=== PATIENT | female | born 1975 | race Caucasian/White ===

== ENCOUNTER 2018-08-08 15:03 | Outpatient (REF) | payer MEDICARE, MEDICAID, SELFPAY ==
[2018-08-08 21:43] LABS: ALT 59 U/L (12-78); AST 49 U/L (15-37); Albumin 3.1 g/dL (3.4-5.0); Alkaline Phosphatase 164 U/L (46-116); Anion Gap 6.3 mmol/L (3-11); BUN 14 mg/dL (7-18); Bilirubin, Total 0.3 mg/dL (0.2-1.0); CO2 29.7 mmol/L (21.0-32.0); CREATININE 0.82 mg/dL (0.55-1.02); Calcium 8.8 mg/dL (8.5-10.1); Chloride 101 mmol/L (98-107); Cholesterol 153 mg/dL (50-200); Glucose 264 mg/dL (70-100); HDL Cholesterol 50 mg/dL (40-60); LDL CHOLESTEROL 84 mg/dL (<100); Potassium 4.2 mmol/L (3.5-5.1); Sodium 137 mmol/L (136-145); Total Protein 7.2 g/dL (6.4-8.2); Triglyceride 127 mg/dL (30-150)
[2018-08-08 21:47] LABS: Abs Immature Grans 0.09 k/cumm (0.0-0.09); Absolute Basophil Count 0.03 k/cumm (0.0-0.2); Absolute Eosinophil Count 0.25 k/cumm (0.0-0.7); Absolute Lymphocyte Count 2.87 k/cumm (1.2-3.4); Absolute Neutrophil Count 6.81 k/cumm (1.2-6.7); Basophils % 0.3; Eosinophils % 2.3; HCT 36.9 % (36.0-46.0); HGB 12.2 g/dL (12.0-15.5); Immature Grans % 0.8; Lymphocytes % 26.9; Mean Corp. HGB Concentration 33.1 g/dL (32.0-36.0); Mean Corpuscular Hemoglobin 29.8 pg (27.0-33.0); Mean Corpuscular Volume 90.2 fL (80-95); Mean Platelet Volume 10.1 fL (8.0-11.0); Monocytes % 5.6; Neutrophils % 64.1; Platelet Count 411 x1000/uL (130-400); RBC 4.09 m/cumm (4.00-5.20); White Blood Cell Count 10.65 k/cumm (4.4-10.8)
[2018-08-10 12:39] LABS: HIV-1/2 Ag & Ab Screen Negative (NEGAT); Hep B Core Antibody Negative (NEGAT); Hepatitis B Surface Ag Negative (NEGAT)
== END 2018-08-08 15:23 ==
LOC: NCHCN 15:03
PROVIDERS: PCP Family Medicine; Visit Provider Family Medicine
DX: B18.2 Chronic viral hepatitis C (principal); I10 Essential (primary) hypertension; Z11.4 Encounter for screening for human immunodeficiency virus [HIV]
CPT/HCPCS: 80053; 80061; 82172; 82247; 82977; 83010; 83721; 83883; 84460; 86704; 87340; 87389; 85025; 87522

== ENCOUNTER 2018-10-19 19:06 | Outpatient (REF) | payer MEDICARE, MEDICAID, SELFPAY ==
--- NOTE | 2018-10-20 | PAPFT_PTH ---
PATIENT: Lea Vasquez LOC: [facility] U#:[id number] AGE/SX: 43/F ROOM: RE10/19/[address]: Sharon Vargas : 1975 BED: DIS: 10/19/2018 SPEC #: [id number] RECD: 10/20/18 12:55 STATUS: ALE REQ #: [id number] FELIBERTO: 10/20/18 00:[address]: Sharon Vargas [facility] Cytology RECD BY: Lesley Mitchell ENTERED: 10/20/18 12:56 SP TYPE: PAPFT OTHR DR: Sharon Vargas Tissues: 1 - CX/ENDOCX FOR PAP SMEARS Procedures: PAP THIN PREP/UVM Screening HPV DNA PROBE Comments: [id number]
== END 2018-10-19 19:26 ==
LOC: NCHCN 19:06
PROVIDERS: PCP Family Medicine; Visit Provider Family Medicine
DX: Z12.4 Encounter for screening for malignant neoplasm of cervix (principal); Z11.51 Encounter for screening for human papillomavirus (HPV)
CPT/HCPCS: 88142

== ENCOUNTER 2019-09-26 15:45 | Outpatient (REF) | payer MEDICARE, MEDICAID, SELFPAY ==
[2019-09-26 21:21] LABS: HCT 37.1 % (36.0-46.0); HGB 11.5 g/dL (12.0-15.5); Mean Corpuscular Hemoglobin 26.2 pg (27.0-33.0); Mean Corpuscular Volume 84.5 fL (80-95); Mean Platelet Volume 9.8 fL (8.0-11.0); Platelet Count 507 x1000/uL (130-400); RBC 4.39 m/cumm (4.00-5.20); RBC Distribution Width 14.5 % (11.7-14.6); White Blood Cell Count 11.55 k/cumm (4.4-10.8)
[2019-09-26 21:25] LABS: Albumin 2.9 g/dL (3.4-5.0); Anion Gap 8.1 mmol/L (3-11); BUN 16 mg/dL (7-18); CO2 29.9 mmol/L (21.0-32.0); CREATININE 1.26 mg/dL (0.55-1.02); Calcium 8.5 mg/dL (8.5-10.1); Chloride 98 mmol/L (98-107); Estimated GFR 46.13 (mL/min/1.73m2); Glucose 331 mg/dL (74-106); Potassium 4.2 mmol/L (3.5-5.1); Sodium 136 mmol/L (136-145)
[2019-09-26 21:26] LABS: Iron 39 ug/dL (50-170); Total Iron Binding Capacity 326 ug/dL (250-450); Transferrin Sat 12 % (15-50)
== END 2019-09-26 16:05 ==
LOC: NCHCN 15:45
PROVIDERS: PCP Family Medicine; Visit Provider Family Medicine
DX: E11.40 Type 2 diabetes mellitus with diabetic neuropathy, unspecified (principal); D64.9 Anemia, unspecified; R77.0 Abnormality of albumin
CPT/HCPCS: 80048; 85027; 82040; 83540; 83550

== ENCOUNTER 2020-08-21 21:11 | Outpatient (REF) | payer MEDICARE, MEDICAID, SELFPAY ==
[2020-08-26 21:54] LABS: SARS-CoV-2 RNA Undetected (Undetected); SARS-CoV-2 Specimen Source Nasal
== END 2020-08-21 21:31 ==
LOC: NCHCN 21:11
PROVIDERS: PCP Family Medicine; Visit Provider Family Medicine
DX: R05 Cough (principal)
CPT/HCPCS: U0003

== ENCOUNTER 2021-03-04 15:25 | Outpatient (REF) | payer MEDICARE, MEDICAID, SELFPAY ==
[2021-03-04 20:39] LABS: HCT 43.2 % (36.0-46.0); HGB 13.5 g/dL (11.2-15.7); MCH 27.3 pg (27.0-33.0); MCHC 31.3 % (32.0-36.0); MCV 87.3 fL (80-95); MPV 10.1 fL (8.0-11.0); Platelet Count 424 10^3/uL (130-400); RBC 4.95 10^6/uL (3.93-5.22); RDW 13.6 % (11.7-14.6); RDW-SD 43.5 fL; WBC 8.28 10^3/uL (4.4-10.8)
[2021-03-04 20:52] LABS: ALT 35 U/L (14-59); AST 22 U/L (15-37); Albumin 3.3 g/dL (3.4-5.0); Alkaline Phosphatase 246 U/L (46-116); Anion Gap 7.8 mmol/L (3-11); BUN 17 mg/dL (7-18); Bilirubin, Total 0.4 mg/dL (0.2-1.0); CO2 28.2 mmol/L (21.0-32.0); CREATININE 1.3 mg/dL (0.55-1.02); Calcium 9.2 mg/dL (8.5-10.1); Calculated LDL 170 mg/dL (<100); Chloride 93 mmol/L (98-107); Cholesterol 262 mg/dL (<200); HDL Cholesterol 47 mg/dL (40-60); Potassium 5.4 mmol/L (3.5-5.1); Sodium 129 mmol/L (136-145); Total Protein 7.9 g/dL (6.4-8.2); Triglyceride 226 mg/dL (<150)
[2021-03-04 21:02] LABS: COMMENT (LAB VIEW ONLY) 16.74 mg/dL
[2021-03-04 21:07] LABS: Microalb ug/mg Crea 4376.9 ug/mg Cr
[2021-03-04 22:23] LABS: Glucose 567 mg/dL (74-106)
== END 2021-03-04 15:26 | disposition home or self-care (01) ==
LOC: NCHCN 15:25
PROVIDERS: PCP Family Medicine; Visit Provider Family Medicine
DX: E11.40 Type 2 diabetes mellitus with diabetic neuropathy, unspecified (principal); D64.9 Anemia, unspecified; E78.5 Hyperlipidemia, unspecified; B18.2 Chronic viral hepatitis C; J45.40 Moderate persistent asthma, uncomplicated
CPT/HCPCS: 80053; 80061; 85027; 82043; 82570

== ENCOUNTER 2021-06-25 18:29 | Outpatient (REF) | payer MEDICARE, MEDICAID, SELFPAY ==
[2021-06-27 11:14] LABS: COVID-19 RT-PCR UVMMC Result Negative (Negative)
== END 2021-06-25 18:30 | disposition home or self-care (01) ==
LOC: NCHCN 18:29
PROVIDERS: PCP Family Medicine; Visit Provider Nurse Practitioner Community Health
DX: Z20.822 Contact with and (suspected) exposure to COVID-19 (principal); R11.10 Vomiting, unspecified
CPT/HCPCS: U0003; U0005

== ENCOUNTER 2023-01-01 18:51 | Outpatient (REF) | payer MEDICARE, MEDICAID, SELFPAY ==
[2023-01-01 16:16] LABS: MCH 29.2 pg (27.0-33.0); MCHC 31.4 % (32.0-36.0); MCV 93 fL (80-95); MPV 10.6 fL (8.0-11.0); Platelet Count 515 10^3/uL (130-400); RBC 3.77 10^6/uL (3.93-5.22); RDW 15.3 % (11.7-14.6); RDW-SD 51.8 fL
[2023-01-01 17:31] LABS: Hemoglobin A1C 11.7 % (<5.7)
[2023-01-01 17:46] LABS: ALT 36 U/L (14-59); AST 30 U/L (15-37); Albumin 2.5 g/dL (3.4-5.0); Alkaline Phosphatase 458 U/L (46-116); Anion Gap 7.2 mmol/L (3-11); BUN 38 mg/dL (7-18); Bilirubin, Total 1.7 mg/dL (0.2-1.0); CO2 26.8 mmol/L (21.0-32.0); CREATININE 2.9 mg/dL (0.55-1.02); Calcium 9.6 mg/dL (8.5-10.1); Chloride 94 mmol/L (98-107); Estimated GFR 19.49 (mL/min/1.73m2); Potassium 4.3 mmol/L (3.5-5.1); Sodium 128 mmol/L (136-145); Total Protein 7.9 g/dL (6.4-8.2)
[2023-01-01 17:53] LABS: Glucose 619 mg/dL (74-106)
[2023-01-01 21:31] LABS: INR 0.9 (0.9-1.1); Prothrombin Time 9.6 sec (9.3-11.0)
[2023-01-04 10:05] LABS: Hepatitis C Ab w Rflx HCV PCR Reactive (Negative)
[2023-01-04 12:51] LABS: HCV RNA Detection Quantitative 3370000 IU/mL (Undetected); HCV RNA Qualitative Detected (Undetected)
[2023-01-05 15:20] LABS: ALT 30 U/L (7-45); ActiTest Grade A0-A1; ActiTest Interpretation no activity; ActiTest Score 0.29; Alpha-2-Macroglobulin 329 mg/dL (100 - 280); Apoliprotein A1 112 mg/dL (>=140); Bilirubin, Total 1.8 mg/dL (<=1.2); FibroTest Interpretation severe fibrosis; FibroTest Score 0.86; FibroTest Stage F4; GGT 455 U/L (5 - 36); Haptoglobin 161 mg/dL (30 - 200)
== END 2023-01-01 18:52 | disposition home or self-care (01) ==
LOC: NCHCN 18:51
PROVIDERS: PCP Family Medicine; Visit Provider Family Medicine
DX: B18.2 Chronic viral hepatitis C (principal); E11.40 Type 2 diabetes mellitus with diabetic neuropathy, unspecified; R60.0 Localized edema
CPT/HCPCS: 80053; 81596; 85027; 86803; 87522; 83036; 85610

== ENCOUNTER 2024-10-06 22:52 | Outpatient (REF) | payer MEDICARE, MEDICAID, SELFPAY ==
--- OUTSIDE RECORDS SUMMARY | 2024-10-06 22:53 | XMS_ITS | Referral Summary ---
Author Organization [facility] Address [address] [place] [address] Care Team Providers Care Magnet Maker Name Role Phone Sharon Vargas MD Primary Care Provider [phone] Allergies Active Allergy Reactions Criticality Noted Date Comments Codeine Lisinopril Metoprolol Itching 12/29/2023 Medications albuterol 90 mcg/actuation inhaler Inhale 2 Puffs as directed every 4 hours as needed for Wheezing. Active atorvastatin (LIPITOR) 20 mg tablet Take 2 Tablets by mouth daily. Active aspirin 81 mg EC tablet Take 1 Tablet by mouth daily. Active omeprazole (PRILOSEC) 40 mg capsule Take 1 Capsule by mouth daily. Active melatonin 3 mg tablet Take 3 Tablets by mouth at bedtime. Active docusate sodium (COLACE) 100 mg capsule Take 1 Capsule by mouth 2 times daily. Active amitriptyline (ELAVIL) 25 mg tablet Take 2 Tablets by mouth at bedtime. Active valsartan-hydro chlorothiazide (DIOVAN HCT) 320-25 mg per tablet Take 1 Tablet by mouth daily. Active escitalopram oxalate (LEXAPRO) 10 mg tablet Take 1 Tablet by mouth daily. Active metFORMIN (GLUCOPHAGE) 500 mg tablet Take 4 Tablets by mouth daily. Active methadone (DOLOPHINE) 10 mg/mL solution Take 12 mL by mouth daily. Daily Max: 120 mg Active polyethylene glycol 3350 (MIRALAX) 17 gram packet Take 17 g by mouth as needed for Constipation. Active insulin degludec (TRESIBA FLEXTOUCH U-200) 200 unit/mL (3 mL) 200 unit/ml (3ml) insulin pen Inject 8,000 Units into the skin 2 times daily. Active insulin aspart U-100 (NOVOLOG FLEXPEN) 100 unit/mL (3 mL) injectable pen Inject into the skin as needed. Active buPROPion (WELLBUTRIN SR) 200 mg SR tablet Take 1 Tablet by mouth daily. Active sertraline HCl (ZOLOFT ORAL) Take by mouth. Dose unknown Active Active Problems Problem Noted Date Diagnosed Date Combined forms of age-related cataract of both e yes 02/11/2024 Social History Tobacco Use Types Packs/Day Years Used Date Smoking Tobacco: Every Day Cigarettes Smokeless Tobacco: Never Tobacco Cessation:Ready to Q uit: Not Asked; Counseling Given: Not Answered Comments Unknown Sex and Gender Information Value Date Recorded Sex Assigned at Not on file Legal Sex Female 18:01 EST Gender Identity Female 01/04/2024 11:39 EDT Sexual Orientation Not on file Plan of Treatment Upcoming Encounters Date Type Department Care Team (Late st Contact Info) Description 10/27/2024 14:15 EST Office Visit [facility] [address] [place] [address] Consuelo Nicole MD [address] [place] [address] Procedures Procedure Name Priority Date/Time Associated Diagnosis Comments HEPATITIS C AB W REFLEX TO HCV RNA BY PCR Routine 01/01/2023 11:40 EDT URINE [id number] E RATIO (ACR) Routine 10/16/2015 HEMOGLOBIN A1C Routine 05/28/2014 from Last 3 Months or Most Recently Relevant to Health Maintenance Results * (ABNORMAL) HEPATITIS C AB W REFLEX TO HCV RNA BY PCR (01/01/2023 11:40 EDT) Hep C Antibody Reactive(A ) Negative 01/04/2023 10:01 EDT [facility] Comment: Supplemental testing for HCV RNA is ordered to rule out active HCV infection. Blood VENOUS BLOOD / Unknown 01/01/2023 11:40 EDT 2023 15:59 EDT us Provider Outr Resulting Lab CHEMISTRY & BLOOD GA S ORDERABLES Final Result [facility] [address] [place] [address] * ALBUMIN, URINE (10/16/2015) Microalb ug/mg Crea, External 312.7 [facility] Microalb mg/dl, External 84.7 [facility] Creatinine, Random U (UCRR), External 27.09 [facility] Urine specimen (specimen) 10/16/2015 Sharon Vargas MD CHEMISTRY & BLOOD GAS ORDERABL ES Edited Result - Final Performing Organization Address [facility] Co de Phone Number [facility] * HEMOGLOBIN A1C (05/28/2014) Hemoglobin A1C, External 8.7 [facility] Est Avg Glucose, External [facility] Blood specimen (specimen) 05/28/2014 Sharon Vargas MD CHEMISTRY & BLOOD GAS ORDERABL ES Final Result Performing Organization Address [facility] Co de Phone Number [facility] from Last 3 Months or Most Recently Relevant to Health Maintenance Insurance [place] Care Teams Magnet Maker Relationship Specialty Start Date End Date Sharon Vargas MD [address] [place] [address] PCP - General 09/09/15
--- OUTSIDE RECORDS SUMMARY | 2024-10-06 22:53 | XMS_ITS | Encounter Summary ---
Author Organization [facility] Address [address] [place] [address] Care Team Providers Care Ergonomics Consultant Name Role Phone Sharon Vargas MD Primary Care Provider [phone] Reason for Visit * Reason Comments Eye Problem Encounter Details Date Type Department Care Team (Late st Contact Info) Description 03/16/2024 10:30 EDT Office Visit [facility] Ophthalmology - [address] [id number] Hung Harp MD [address] [facility], [address] [place] [address] Social History Tobacco Use Types Packs/Day Years Used Date Smoking Tobacco: Every Day Cigarettes Smokeless Tobacco: Never Comments Unknown Sex and Gender Information Value Date Recorded Sex Assigned at Not on file Legal Sex Female 18:01 EST Gender Identity Female 01/04/2024 11:39 EDT Sexual Orientation Not on file documented as of this encounter Progress Notes * Hung Harp MD - 03/16/2024 1030 EDT Chief Complaint Patient presents with Eye Problem HPI 5 week f/u for Avastin right eye before upcoming cataract surgery with Dr Nicole right eye 03/23/24.NPDR both eyes. PSC both eyes. Vision seems about the same. No pain, or new flashes, or floaters. No drops. Base Eye Exam Visual Acuity (Snellen - Linear) Right Left Dist sc CF at 1' 20/200 +1 Dist ph sc 20/70 -1 Tonometry (Applanation, 11:23) Right Left Pressure 19 12 Neuro/Psych Oriented x3: Yes Mood/Affect: Normal Dilation Both eyes: Tropicamide 1%, Phenylephrine 2.5% @ 11:23 Slit Lamp and Fundus Exam Slit Lamp Exam Right Left Lids/Lashes Normal Normal Conjunctiva/Sclera White and quiet White and quiet Cornea Clear Clear Anterior Chamber Deep and quiet Deep and quiet Iris Dilated Dilated Lens 3+ Posterior subcapsular cataract, 4+ Posterior capsular opacification 2+ Posterior subcapsular cataract Anterior Vitreous Clear Clear Fundus Exam Right Left Disc no neovascularization no neovascularization C/D Ratio 0.3 0.3 Macula Limitied view. Intraretinal hemorrhage Hemorrhage: Intraretinal hemorrhage Vessels No beading No beading Periphery Retina attached. Heme in all 4 quadrants. No alireza Retina attached. Heme in all 4 quadrants. No alireza OCT, Retina - OU - Both Eyes Right Eye Quality was poor. Scan locations included juxtafoveal. Progression has improved. Findings include intraretinal fluid. Left Eye Quality was poor. Progression has been stable. Findings include normal foveal contour. Notes Some inner retinal atrophy both eyes Trace intraretinal fluid both eyes OCT-A enlarged CJ left eye (poor signal right eye Intravitreal Injection, Pharmacologic Agent - OD - Right Eye Time Out 03/16/2024. 11:56. Confirmed correct patient, procedure, site, and patient consented. Anesthesia Topical anesthesia was used. Anesthetic medications included Proparacaine 0.5%, Tetracaine 0.5%. Procedure Preparation included 5% betadine to ocular surface, eyelid speculum. A 30 gauge needle was used. Injection: 1.25 mg bevacizumab Route: intravitreal, Site: Right Eye [facility]: [address]-93, Lot: [id number], Expiration date: 03/17/2024 Post-op Post injection exam found visual acuity of at least counting fingers. The patient tolerated the procedure well. There were no complications. The patient received written and verbal post procedure care education. Post injection medications were not given. DIAGNOSES: 1. Type 2 diabetes mellitus with both eyes affected by moderate nonproliferative retinopathy and macular edema, with long-term current use of insulin ([facility]) OCT, RETINA - OU - BOTH EYES INTRAVITREAL INJECTION, PHARMACOLOGIC AGENT - OD - RIGHT EYE bevacizumab (AVASTIN) ophthalmic syringe 1.25 mg 2. Combined forms of age-related cataract of both eyes Assessment Type 2 Diabetes with non-proliferative diabetic retinopathy both eyes Trace macular edema both eyes Capillary loss on OCT-a left eye and inner retinal atrophy both eyes Recommend continue good lipid, blood sugar and blood pressure control Posterior subcapsular cataracts both eyes Dense, limiting view to retina right eye Cataract surgery scheduled with in March and April Discussed risks of developing macular edema post cataract surgery Recommend intravitreal injection of anti VEGF prior to cataract surgery Risks and benefits associated discussed Patient agrees Return 1 week prior to cataract surgery left eye for Avastin injection I am scribing for Dr. Hung Harp MD while he is personally performing the service. Luan Martin (Scribe) documented in this encounter Plan of Treatment Upcoming Encounters Date Type Department Care Team (Late st Contact Info) Description 10/27/2024 14:15 EST Office Visit [facility] Ophthalmology [address] [address] Consuelo Nicole MD [address] [place] [address] documented as of this encounter Procedures Procedure Name Priority Date/Time Associated Diagnosis Comments OCT, RETINA - OU - BOTH EYES Routine 03/16/2024 12:13 EDT Type 2 diabetes mellitus with both eyes affected by moderate nonproliferative retinopathy and macular edema, with long-term current use of insulin ([facility]) INTRAVITREAL INJECTION, PHARMACOLOGIC AGENT - OD - RIGHT EYE Routine 03/16/2024 12:04 EDT Type 2 diabetes mellitus with both eyes affected by moderate nonproliferative retinopathy and macular edema, with long-term current use of insulin ([facility]) documented in this encounter Results * OCT, RETINA - OU - BOTH EYES (03/16/2024 12:13 EDT) Narrative [facility] - 03/16/2024 12:13 EDT Right Eye Quality was poor. Scan locations included juxtafoveal. Progression has improved. Findings include intraretinal fluid. Left Eye Quality was poor. Progression has been stable. Findings include normal foveal contour. Notes Some inner retinal atrophy both eyes Trace intraretinal fluid both eyes OCT-A enlarged CJ left eye (poor signal right eye Hung Harp MD OPHTH TOMOGRAPHY Edited Result - Final Performing Organization Address [facility] de Phone Number [facility] * INTRAVITREAL INJECTION, PHARMACOLOGIC AGENT - OD - RIGHT EYE (03/16/2024 12:04 EDT) Narrative [facility] - 03/16/2024 12:13 EDT Time Out 03/16/2024. 11:56. Confirmed correct patient, procedure, site, and patient consented. Anesthesia Topical anesthesia was used. Anesthetic medications included Proparacaine 0.5%, Tetracaine 0.5%. Procedure Preparation included 5% betadine to ocular surface, eyelid speculum. A 30 gauge needle was used. Injection: 1.25 mg bevacizumab ??Route: intravitreal, Site: Right Eye ??[facility]: [address]-95, Lot: [id number], Expiration date: 03/17/2024 Post-op Post injection exam found visual acuity of at least counting fingers. The patient tolerated the procedure well. There were no complications. The patient received written and verbal post procedure care education. Post injection medications were not given. Hung Harp MD OPH CLINIC PROCEDURES Final Re sult Performing Organization Address [facility] de Phone Number [facility] documented in this encounter Visit Diagnoses Diagnosis Type 2 diabetes mellitus with both eyes affected by moderate nonproliferative retinopathy and macular edema, with long-term current use of insulin ([facility])- Primary Combined forms of age-related cataract of both eyes Other and combined forms of senile cataract documented in this encounter Administered Medications Inactive Administered Medications - up to 3 most recent administrations Medication Order MAR Action Action Date Dose Rate Site bevacizumab (AVASTIN) ophthalmic syringe 1.25 mg 1.25 mg, Starting on [place] 03/16/24 at 1213, Until [place] 03/16/24 at 1213, RoutineIndications:Type 2 diabetes mellitus with both eyes affected by moderate nonproliferative retinopathy and macular edema, with long-term current use of insulin ([facility]) Given 03/16/2024 12:13 EDT 1.25 mg Ri ght Eye documented in this encounter Orders Medications Ordered That Aric ht Not Have Been Administered Count Last Ordered Date First Ordered Date bevacizumab (AVASTIN) ophtha lmic syringe 1.25 mg 1 03/16/2024 documented in this encounter Eye Exam Visual Acuity (Snellen - Linear) Right eye Left eye Dist sc CF at 1' 20/200 +1 Dist ph sc 20/70 -1 Tonometry (Applanation, 11:23) Right eye Left eye Pressure 19 12 Neuro/Psych Oriented x3: Yes Mood/Affect: Normal Dilation Both eyes: Tropicamide 1%, P henylephrine 2.5% @ 11:23 Slit Lamp Exam Right eye Left eye Lids/Lashes Normal Normal Conjunctiva/Sclera White and quiet White and thelma et Cornea Clear Clear Anterior Chamber Deep and quiet Deep and quiet Iris Dilated Dilated Lens 3+ Posterior subcaps ular cataract, 4+ Posterior capsular opacification 2+ Posterior subcapsular cataract Anterior Vitreous Clear Clear Fundus Exam Right eye Left eye Disc no neovascularization no neovasc ularization C/D Ratio 0.3 0.3 Macula Limitied view. Intraretinal hemo rrhage Hemorrhage: Intraretinal hemorrhage Vessels No beading No beading Periphery Retina attached. Hem e in all 4 quadrants. No alireza Retina attached. Heme in all 4 quadrants. No alireza Care Teams Ergonomics Consultant Relationship Specialty Start Date End Date Sharon Vargas MD [address] [place] [address] PCP - General 09/09/15 documented as of this encounter
--- OUTSIDE RECORDS SUMMARY | 2024-10-06 22:53 | XMS_ITS | Encounter Summary ---
Author Organization [facility] Address [address] [place] [address] Care Team Providers Care Devops Engineer Name Role Phone Sharon Vargas MD Primary Care Provider [phone] Reason for Referral * Consult, Test and Treat (Routine) - Receiving Office to Obtain Authorization Specialty Diagnoses / Procedures Referred By Johnnie eugene Referred To Contact Ophthalmology Diagnoses Type 2 diabetes mellitus with both eyes affected by moderate nonproliferative retinopathy without macular edema, with long-term current use of insulin ([facility]) Consuelo Nicole MD Phone: tel: fax: Hung Harp MD Phone: tel: fax: Referral ID Status Reason Start Date Expiration Date Visits Requested Visits Authorized [id number] Receiving Office to Obtain Authorization Specialty Services Required 4 1 1 Question Answer Reason for Request: Other, in comments field Specify which eye: Right Contact lens wearer? No Scheduling Comments (optional ? describe specific scheduling needs if applicable): please eval approx one month prior to scheduled cataract surg 02/2024 in case needs injection Onset/Duration (new problem)? NPDR for years, possible DME today right eye with upcoming cataract surgery May, eval need for injection Reason for Visit * Reason Comments Diabetes Diabetes mellitus ey e exam Encounter Details Date Type Department Care Team (Late st Contact Info) Description 12/29/2023 10:45 EDT Office Visit [facility] Ophthalmology [facility] [address] [place] [address] Consuelo Nicole MD [address] [place] [phone] Social History Tobacco Use Types Packs/Day Years [...] on file documented as of this encounter Patient Instructions * Patient Instructions* Verna Cerna COA - 12/29/2023 10:45 EDT Please make an appointment with your Primary Care Provider for a pre-operative physical. Try to schedule for about 2 weeks prior to your surgery. Your lens measurement appointment is: 02/09/2024 at our office [address] [place], [place] Your surgery date for your first eye is: 03/23/2024 at [facility] (check in at Patient Registration). The Hospital will call you prior to the surgery with your report time. Your surgery date for your second eye is: 04/25/2024 documented in this encounter Progress Notes * Consuelo Nicole MD - 12/29/2023 104 EDT Chief Complaint Patient presents with Diabetes Diabetes mellitus eye exam HPI The patient is a 48 y.o. female here for yearly DM exam, diagnosed 1992 as gestational DM. On orals/insulin. Checks bgs 3-4 times a day. Last A1c 7.2 documented at PCP's office and noted to be at goal at 10/2023 visit. Has not had eye exam since 2018, documented as having moderate NPDR in both eyes with onset 08/2016 in PCP's notes. Has noticed decreased vision right eye>left over the past 6-8 months, right eye especially, all activities. Unable to drive, ambulate safely. Has worn specs in the past. Right Eye: Blurred Vision Left Eye: Blurred Vision Visual Aid: None Current Rx Age Location: Both eyes Pain: 0 - No pain Quality: Severity: Moderate Duration: Months Timing: Constant Lasts: Continuous Context: DM eye exam, dx'd 1992 starting as gestational DM. Has been on insulin and oral medications since then. CHecks bg's 3-4 times a day. Last A1c 7.2 (in Dr office - 11/04/2023) Modifying factors: 6-8 months ago vision starting to decrease, R>L. Feels she cannot see out of the right eye at all. No floaters or flashes of light. Associated Signs & Symptoms: Last eye exam 2018 previously dx's woth moderate NPDR (2016) Has worn glasses in past but has been without for 4 years. Attestation: ROS Constitutional: NL ENT/Mouth NL Cardiovascular: High Cholesterol, High Blood Pressure Respiratory: (asthma, COPD) Gastrointestinal: Genitourinary: Musculoskeletal: Integumentary: Neurologic: NL Psychiatric: Depression Endocrine: Diabetes Hematologic: Anemia Immunologic: Filter Bed Placer: Exposures: None Other: Attestation: Base Eye Exam Visual Acuity (Snellen - Linear) Right Left Dist sc CF at 1' 20/200 Dist ph sc NI 20/150 Near sc J3 J3 Tonometry (Applanation, 11:37) Right Left Pressure 24 20 Pupils Dark Light React APD Right 5.5 3.5 Slow None Left 4.5 3 Slow None Checked by MD Visual Martínez Right eye Full to count fingers superonasally Limited to finger motion in all other quadrants Left eye Full to count fingers superonasally Full to finger motion in all other quadrants Extraocular Movement Right Left Full Full Neuro/Psych Oriented x3: Yes Mood/Affect: Normal Slit Lamp and Fundus Exam External Exam Right Left External Normal Normal Slit Lamp Exam Right Left Lids/Lashes Normal Normal Conjunctiva/Sclera White and quiet White and quiet Cornea No guttata No guttata Anterior Chamber Deep and quiet Deep and quiet Iris Dilates to 8.5, no pseudoexfoliation Dilates to 8.5, no pseudoexfoliation Lens 3+ Nuclear Sclerosis, cortical haze, cortical wedges, 4+ diffuse PSC 3+ Nuclear Sclerosis, cortical haze, cortical wedges, 4+ PSC with some sparing temporally but involving visual axis Fundus Exam Right Left Vitreous Normal Normal Disc Intact Rim Intact Rim C/D Ratio 0.1 0.1 Macula Few Intraretinal hemorrhages at and temporal to fovea; no obvious exudate Mild RPE changes at fovea Vessels Normal Normal Periphery Intraretinal hemorrhages in arcades Intraretinal hemorrhages in arcades Overall hazy view with difficult macular details right eye. Peripheral view easier with 20D lens. Refraction Manifest Refraction (Auto) Sphere Cylinder Andreas Dist VA Right -10.50 +2.25 154 Left -5.00 +2.50 035 Manifest Refraction #2 Sphere Cylinder Andreas Dist VA Right -7.25 +2.00 150 20/300 Left -3.75 Sphere 20/60 Cycloplegic Refraction Sphere Cylinder Andreas Dist VA Right -7.25 +2.00 150 Left -3.75 +0.75 035 20/80+1 DIAGNOSTIC TESTS: OCT, Retina - OU - Both Eyes OCT macula Right: signal strength: 2/10, thickness 268 microns, normal foveal contour, possible intraretinal fluid Left: signal strength: 5/10, thickness 234 microns, normal foveal contour, no intra/subretinal fluid IMPRESSION & PLAN: Type 2 diabetes mellitus with both eyes affected by moderate nonproliferative retinopathy without macular edema, with long-term current use of insulin - detailed fundus views of right eye difficult due to PSC, possible fluid on OCT right eye today 12/29/2023. - discussed with patient that if there was fluid on OCT on her way out then I may send her to Retina for pre-op eval. She was amenable to this. I see possible fluid on OCT, I will place a referral and we will call her to let her know. - continue good bg control, control of systemic factors - note to PCP Combined forms of age-related cataract of both eyes - The patient has symptomatic visually significant cataract(s) in both eye(s). The patient's vision cannot be maximized with a change in the prescription of glasses or contact lenses and this decreasesthe patient's ability to drive. Testing for other eye diseases such as age related macular degeneration and glaucoma have been completed, and these conditions are not contributing to the patient's visual difficulties. R/B/A cataract surgery discussed including bleeding, infection, loss of vision, loss of the eye, retinal detachment, glaucoma, and subsequent surgery. Discussed with patient that if macular edema is present it can worsen after cataract surgery and affect result. Pt wishes to proceed. Discussed IOLs, options of premium IOLs. Pt interested in monofocal IOL for distance emmetropia. Plan cataract extraction with IOL right eye first, target plano. Consent signed today. Schedule Biometry. Pt advised to schedule a pre-op physical with PCP within 30 days of surgery. Patient does notneed to stop anticoagulation if applicable. - will contact patient and let her know that I am placing a Retina referral Refractive error - - we continue without specs at this time I have reviewed the patient's past medical, family, social and surgical history. I have also reviewed the patient's medications, allergies, and problem list. I performed my own HPI and have reviewed the tech's ROS as well. I completed this exam personally. I spent a total of 45 minutes on the date of this encounter meeting with the patient and reviewing documentation/coordinating care as described in the above note. No procedures were performed at the time of the visit. I am scribing for Consuelo Nicole MD, while she is personally performing the service. JIM Osborne Patient Education Topic: NPDR Method: Verbal Taught to: Patient Barriers: None Outcomes: independent Signature: Consuelo Nicole MD documented in this encounter Plan of Treatment Upcoming Encounters Date Type Department Care Team (Late st Contact Info) Description 10/27/2024 14:15 EST Office Visit [facility] Ophthalmology [address] [address] Consuelo Nicole MD [address] [place] [phone] Scheduled Referrals Name Type Priority Associated Diagnoses Orde r Schedule AMB CONS/FOLLOW UP OPHTHALMOLOGY Outpatient Referral Routine/Next Available Type 2 Diabetes Mellitus With Both Eyes Affected By Moderate Nonproliferative Retinopathy Without Macular Edema, With Long-Term Current Use Of Insulin ([facility]) Expected: 01/29/2024 (Approximate) , Expires: 12/28/2024 documented as of this encounter Procedures Procedure Name Priority Date/Time Associated Diagnosis Comments OCT, RETINA - OU - BOTH EYES Routine 12/29/2023 13:57 EDT Type 2 diabetes mellitus with both eyes affected by moderate nonproliferative retinopathy without macular edema, with long-term current use of insulin ([facility]) documented in this encounter Results * OCT, RETINA - OU - BOTH EYES (12/29/2023 13:57 EDT) Narrative [facility] OPHTHALMOLOGY - 12/29/2023 13:57 EDT OCT macula Right: signal strength: 2/10, thickness 268 microns, normal foveal contour, possible intraretinal fluid Left: signal strength: 5/10, thickness 234 microns, normal foveal contour, no intra/subretinal fluid us Consuelo Nicole MD OPHTH TOMOGRAPHY Final Resu lt [facility] OPHTHALMOLOGY documented in this encounter Visit Diagnoses Diagnosis Type 2 diabetes mellitus with both eyes affected by moderate nonproliferative retinopathy without macular edema, with long-term current use of insulin ([facility])- Primary Combined forms of age-related cataract of both eyes Other and combined forms of senile cataract Refractive error Unspecified disorder of refraction and accommodation documented in this encounter Discontinued Medications Medication Sig Discontinue Reason Start Date End Da te amitriptyline (ELAVIL) 75 mg tablet Take 2 Tablets by mouth at bedtime. Dose adjustment 12/29/2023 valsartan (DIOVAN) 80 mg tablet Take 1 Tablet by mouth daily. Dose adjustment 12/29/2023 metFORMIN (GLUCOPHAGE) 1,000 mg tablet Take 1 Tablet by mouth 2 times daily. Dose adjustment 12/29/2023 buprenorphine-naloxone (SUBOXONE) 8-[address] 2 Film under the tongue daily. Therapy completed 12/29/2023 buPROPion (WELLBUTRIN XL) 300 mg XL tablet Take 200 mg by mouth daily. Dose adjustment 12/29/2023 fluticasone-salmeterol (ADVAIR) 500-50 mcg/dose diskus inhaler Inhale 1 Puff as directed 2 times daily. 12/29/2023 gabapentin (NEURONTIN) 300 mg capsule Take 900 mg by mouth 3 times daily. 12/29/2023 insulin glargine 300 unit/mL (1.5 mL) insulin pen Inject 200 Units into the skin 3 times daily. 12/29/2023 sitaGLIPtin (JANUVIA) 100 mg tablet Take 100 mg by mouth daily. 12/29/2023 insulin aspart protamine-insulin aspart (NOVOLOG 70/30) 100 unit/mL (70-30) injection Inject into the skin 2 times daily with breakfast and dinner. 12/29/2023 documented as of this encounter Historical Medications * This list may reflect changes made after this encounter. sertraline HCl (ZOLOFT ORAL) Take by mouth. Dose unknown buPROPion (WELLBUTRIN SR) 200 mg SR tablet Take 1 Tablet by mouth daily. insulin aspart U-100 (NOVOLOG FLEXPEN) 100 unit/mL (3 mL) injectable pen Inject into the skin as needed. insulin degludec (TRESIBA FLEXTOUCH U-200) 200 unit/mL (3 mL) 200 unit/ml (3ml) insulin pen Inject 8,000 Units into the skin 2 times daily. polyethylene glycol 3350 (MIRALAX) 17 gram packet Take 17 g by mouth as needed for Constipation. methadone (DOLOPHINE) 10 mg/mL solution Take 12 mL by mouth daily. Daily Max: 120 mg metFORMIN (GLUCOPHAGE) 500 mg tablet Take 4 Tablets by mouth daily. escitalopram oxalate (LEXAPRO) 10 mg tablet Take 1 Tablet by mouth daily. valsartan-hydroch lorothiazide (DIOVAN HCT) 320-25 mg per tablet Take 1 Tablet by mouth daily. amitriptyline (ELAVIL) 25 mg tablet Take 2 Tablets by mouth at bedtime. added in this encounter Eye Exam Visual Acuity (Snellen - Linear) Right eye Left eye Dist sc CF at 1' 20/200 Dist ph sc NI 20/150 Near sc J3 J3 Tonometry (Applanation, 11:37) Right eye Left eye Pressure 24 20 Pupils Dark Light React APD Right eye 5.5 3.5 Slow None Left eye 4.5 3 Slow None Checked by MD Visual Martínez Right eye Full to count fingers superonasally Limited to finger motion in all other quadrants Left eye Full to count fingers superonasally Full to finger motion in all other quadrants Extraocular Movement Right eye Left eye Full Full Neuro/Psych Oriented x3: Yes Mood/Affect: Normal External Exam Right eye Left eye External Normal Normal Slit Lamp Exam Right eye Left eye Lids/Lashes Normal Normal Conjunctiva/Sclera White and quiet White and thelma et Cornea No guttata No guttata Anterior Chamber Deep and quiet Deep and quiet Iris Dilates to 8.5, no pseudoexfoliation Dilates to 8.5, no pseudoexfoliation Lens 3+ Nuclear Sclerosis , cortical haze, cortical wedges, 4+ diffuse PSC 3+ Nuclear Sclerosis, cortical haze, cortical wedges, 4+ PSC with some sparing temporally but involving visual axis Fundus Exam Right eye Left eye Posterior Vitreous Normal Normal Disc Intact Rim Intact Rim C/D Ratio 0.1 0.1 Macula Few Intraretinal hem orrhages at and temporal to fovea; no obvious exudate Mild RPE changes at fovea Vessels Normal Normal Periphery Intraretinal hemorrh ages in arcades Intraretinal hemorrhages in arcades Overall hazy view with difficult macular details right eye. Peripheral view easier with 20D lens. Manifest Refraction #1 (Auto) Sphere Cylinder Andreas Dist VA Right eye -10.50 +2.25 154 Left eye -5.00 +2.50 035 Manifest Refraction #2 Sphere Cylinder Andreas Dist VA Right eye -7.25 +2.00 150 20/300 Left eye -3.75 Sphere 20/60 Cycloplegic Refraction Sphere Cylinder Andreas Dist VA Right eye -7.25 +2.00 150 Left eye -3.75 +0.75 035 20/80+1 Care Teams Devops Engineer Relationship Specialty Start Date End Date Sharon Vargas MD [address] [place] [address] [place] [phone] PCP - General 09/09/15 documented as of this encounter
--- OUTSIDE RECORDS SUMMARY | 2024-10-06 22:53 | XMS_ITS | Encounter Summary ---
Author Organization [facility] Address [address] [place] [address] Care Team Providers Care Company Tanker Truck Driver Name Role Phone Sharon Vargas MD Primary Care Provider [phone] Reason for Visit * Reason Onset Date Comments Follow-up 12/29/2023 Encounter Details Date Type Department Care Team (Late st Contact Info) Description 12/29/2023 Telephone [facility] [address] [place], [place] [address] Verna Cerna COA Follow-up Social History Tobacco Use Types Packs/Day Years Used Date Smoking Tobacco: Every Day Cigarettes Smokeless Tobacco: Never Comments Unknown Sex and Gender Information Value Date Recorded Sex Assigned at Not on file Legal Sex Female 18:01 EST Gender Identity Female 01/04/2024 11:39 EDT Sexual Orientation Not on file documented as of this encounter Miscellaneous Notes * Telephone Encounter - Verna Cerna COA - 12/29/2023 1534 EDT Called to inform Lea as per Dr. Nicole that a retina referral has been placed due to swelling right eye visualized on images taken after exam today. Patient verbalizes understanding and agrees. documented in this encounter Plan of Treatment Upcoming Encounters Date Type Department Care Team (Late st Contact Info) Description 10/27/2024 14:15 EST Office Visit [facility] [address] [place] [address] Consuelo Nicole MD [address] [place] [phone] documented as of this encounter Visit Diagnoses Not on filedocumented in this encounter Care Teams Company Tanker Truck Driver Relationship Specialty Start Date End Date Sharon Vargas MD [address] [place] [phone] PCP - General 09/09/15 documented as of this encounter
--- OUTSIDE RECORDS SUMMARY | 2024-10-06 22:53 | XMS_ITS | Encounter Summary ---
Author Organization [facility] Address [address] [place] [address] Care Team Providers Care Special Needs Child Caregiver Name Role Phone Sharon Vargas MD Primary Care Provider [phone] Encounter Details Date Type Department Care Team (Late Contact Info) Description 02/24/2024 Orders Only [facility] [address] [place], [place] [address] Consuelo Nicole MD [address] [place] [phone] Combined forms of age-related cataract of right eye (Primary Dx) Social History Tobacco Use Types Packs/Day Years Used Date Smoking Tobacco: Every Day Cigarettes Smokeless Tobacco: Never Comments Unknown Sex and Gender Information Value Date Recorded Sex Assigned at Not on file Legal Sex Female 18:01 EST Gender Identity Female 01/04/2024 11:39 EDT Sexual Orientation Not on file documented as of this encounter Plan of Treatment Upcoming Encounters Date Type Department Care Team (Late Contact Info) Description 10/27/2024 14:15 EST Office Visit [facility] Ophthalmology [facility] [address] [place], [place] [address] Consuelo Nicole MD [address] [place] [phone] documented as of this encounter Visit Diagnoses Diagnosis Combined forms of age-related cataract of right eye- Primary Other and combined forms of senile cataract documented in this encounter Care Teams Special Needs Child Caregiver Relationship Specialty Start Date End Date Sharon Vargas MD [address] [place] [place] [phone] PCP - General 09/09/15 documented as of this encounter
--- OUTSIDE RECORDS SUMMARY | 2024-10-06 22:53 | XMS_ITS | Clinical Summary ---
Author Organization [facility] Address [address] [place] [address] Care Team Providers Care Milk Treater Name Role Phone Sharon Vargas MD Primary Care Provider [phone] Allergies Active Allergy Reactions Criticality Noted Date [...] 11:39 EDT Sexual Orientation Not on file Obstetrics History Plan of Treatment Upcoming Encounters Date Type Department Care Team (Late st Contact Info) Description 10/27/2024 14:15 EST Office Visit [facility] Ophthalmology [facility] [address] [place] [address] Consuelo Nicole MD [address] [place] [phone] Health Maintenance Due Date Last Done Comments Foot Exam 1975 Lipid Profile Screening (Cholesterol) 1978 Pneumococcal Immunization (1 of 2 - PCV) 1981 Hepatitis B Vaccine (1 of 3 - 19+ 3-dose series) 1994 Hemoglobin A1C (Ha1C) 11/28/2014 05/28/2014 Microalbumin/Creatinine Ratio 10/16/2016 10/16/2015 COVID-19 Vaccine ( season) 2024 Eye Exam 03/16/2025 03/16/2024, 04/03/2024, 12/29/2023 Hepatitis C Screen Completed 01/01/2023, 01/01/2023 Procedures Procedure Name Priority Date/Time Associated Diagnosis Comments HEPATITIS C AB W REFLEX TO HCV RNA BY PCR Routine 01/01/2023 11:40 EDT URINE HOBPOAM-LR-FREULTXGC E RATIO (ACR) Routine 10/16/2015 HEMOGLOBIN A1C Routine 05/28/2014 from Last 3 Months or Most Recently Relevant to Health Maintenance Results * (ABNORMAL) HEPATITIS C AB W REFLEX TO HCV RNA BY PCR (01/01/2023 11:40 EDT) Hep C Antibody Reactive(A ) Negative 01/04/2023 10:01 EDT [facility] Comment: Supplemental testing for HCV RNA is ordered to rule out active HCV infection. Blood VENOUS BLOOD / Unknown 01/01/2023 11:40 EDT 2023 15:59 EDT us Provider Outr Resulting Lab CHEMISTRY & BLOOD GA S ORDERABLES Final Result Performing Organization Address City/[facility]/ZIP Co de Phone Number [facility] [address] [place] [address] * ALBUMIN, URINE (10/16/2015) Microalb ug/mg Crea, External 312.7 [facility] Microalb mg/dl, External 84.7 [facility] Creatinine, Random U (UCRR), External 27.09 [facility] Urine specimen (specimen) 10/16/2015 Sharon Vargas MD CHEMISTRY & BLOOD GAS ORDERABL ES Edited Result - Final Performing Organization Address [facility]/ZIP Co de Phone Number [facility] * HEMOGLOBIN A1C (05/28/2014) Hemoglobin A1C, External 8.7 [facility] Est Avg Glucose, External [facility] Blood specimen (specimen) 05/28/2014 Sharon Vargas MD CHEMISTRY & BLOOD GAS ORDERABL ES Final Result Performing Organization Address [facility]/ZIP Co de Phone Number [facility] from Last 3 Months or Most Recently Relevant to Health Maintenance Insurance [place]ARE Care Teams Milk Treater Relationship Specialty Start Date End Date Sharon Vargas MD [address] [place] [place] [phone] PCP - General 09/09/15
--- OUTSIDE RECORDS SUMMARY | 2024-10-06 22:53 | XMS_ITS | Encounter Summary ---
Author Organization [facility] Address [address] [place] [address] Care Team Providers Care Automation Application Engineer Name Role Phone Sharon Vargas MD Primary Care Provider [phone] Reason for Visit * Reason Onset Date Comments Appointment Related 03/08/2024 Encounter Details Date Type Department Care Team (Late st Contact Info) Description 03/08/2024 Telephone [facility] [address] [place], [place] [phone] Consuelo Nicole MD [address] [place] [phone] Appointment Related Social History Tobacco Use Types Packs/Day Years Used Date Smoking Tobacco: Every Day Cigarettes Smokeless Tobacco: Never Comments Unknown Sex and Gender Information Value Date Recorded Sex Assigned at Not on file Legal Sex Female 18:01 EST Gender Identity Female 01/04/2024 11:39 EDT Sexual Orientation Not on file documented as of this encounter Miscellaneous Notes * Telephone Encounter - Maegan Nicolas COA - 03/08/2024 1432 EDT Tried to call patient back unable to leave a message. JIM WALTERS documented in this encounter Plan of Treatment Upcoming Encounters Date Type Department Care Team (Late st Contact Info) Description 10/27/2024 14:15 EST Office Visit [facility] [address] [place], [place] [phone] Consuelo Nicole MD [address] [place] [phone] documented as of this encounter Visit Diagnoses Not on filedocumented in this encounter Care Teams Automation Application Engineer Relationship Specialty Start Date End Date Sharon Vargas MD [address] [place] [phone] PCP - General 09/09/15 documented as of this encounter
--- OUTSIDE RECORDS SUMMARY | 2024-10-06 22:53 | XMS_ITS | Encounter Summary ---
Author Organization [facility] Address [address] [place] [address] Care Team Providers Care Technical Education Teacher Name Role Phone Sharon Vargas MD Primary Care Provider [phone] Reason for Visit * Reason Comments Eye Problem * Prior Authorization (Routine) - Authorized Specialty Diagnoses / Procedures Referred By Johnnie eugene Referred To Contact Diagnoses Diabetic macular edema (HCC-CMS) Procedures [place] INTRAVITREAL NJX PHARMACOLOGIC AGT SPX [place] AFLIBERCEPT INJECTION [place] BEVACIZUMAB INJECTION [address] [address] Phone: tel: fax: [address] [address] Phone: tel: fax: Referral ID Status Reason Start Date Expiration Date V isits Requested Visits Authorized [id number] Authorized 2 2 Encounter Details Date Type Department Care Team (Late st Contact Info) Description 02/11/2024 14:00 EDT Office Visit [address] [id number] Hung Harp MD [address] [place] [address], [facility] [address] [place] [address] Social History Tobacco Use Types Packs/Day Years Used Date Smoking Tobacco: Every Day Cigarettes Smokeless Tobacco: Never Comments Unknown Sex and Gender Information Value Date Recorded Sex Assigned at Not on file Legal Sex Female 18:01 EST Gender Identity Female 01/04/2024 11:39 EDT Sexual Orientation Not on file documented as of this encounter Progress Notes * Hung Harp MD - 02/11/2024 1400 EDT Chief Complaint Patient presents with Eye Problem HPI DM with mod NPDR both eyes referred by Dr Nicole, Pt stats blurry vision R>L x ~ 6 months, scheduled for Cataract surgery in March/April with Dr Nicole, no pain no flashes no floaters, last A1c 7.2 in Nov 10, BS usually around 100 Base Eye Exam Visual Acuity (Snellen - Linear) Right Left Dist sc CF at 3' 20/200 Dist ph sc 20/80 Tonometry (Applanation, 14:18) Right Left Pressure 19 17 Pupils Dark Light Shape React APD Right 4 3 Round Slow None Left 3 2 Round Slow None Extraocular Movement Right Left Full Full Neuro/Psych Oriented x3: Yes Mood/Affect: Normal Dilation Both eyes: Phenylephrine 2.5%, Tropicamide 1% @ 14:18 Slit Lamp and Fundus Exam Slit Lamp [...] include intraretinal fluid. Left Eye Quality was borderline. Progression has been stable. Findings include normal foveal contour. Notes Some inner retinal atrophy both eyes OCT-A enlarged CJ left eye (poor signal right eye DIAGNOSES: 1. Type 2 diabetes mellitus with both eyes affected by moderate nonproliferative retinopathy without macular edema, with long-term current use of insulin ([facility]) OCT, RETINA - OU - BOTH EYES 2. Combined forms of age-related cataract of both eyes Assessment Type 2 Diabetes with non-proliferative diabetic retinopathy both eyes No macular edema both eyes Capillary loss on OCT-a left eye and inner retinal atrophy both eyes Recommend continue good lipid, blood sugar and blood pressure control Posterior subcapsular cataracts both eyes Dense, limiting view to retina right eye Cataract surgery scheduled with in March and April Discussed risks of developing macular edema post cataract surgery Recommend intravitreal injection of anti VEGF 1 week prior to cataract surgery Risks and benefits associated discussed Patient agrees Return 1 week prior to cataract surgery for Avastin injection Return in about 5 weeks (around 03/17/2024), or if symptoms worsen or fail to improve, for OCT, Avastin, Right Eye. I am scribing for Dr. Hung Harp MD while he is personally performing the service. JIM Begum (Scribe) documented in this encounter Plan of Treatment Upcoming Encounters Date Type Department Care Team (Late st Contact Info) Description 10/27/2024 14:15 EST Office Visit [facility] Ophthalmology [address] [address] Consuelo Nicole MD [address] [place] [address] documented as of this encounter Procedures Procedure Name Priority Date/Time Associated Diagnosis Comments OCT, RETINA - OU - BOTH EYES Routine 02/11/2024 14:36 EDT Type 2 diabetes mellitus with both eyes affected by moderate nonproliferative retinopathy without macular edema, with long-term current use of insulin ([facility]) documented in this encounter Results * OCT, RETINA - OU - BOTH EYES (02/11/2024 14:36 EDT) Narrative [facility] OPHTHALMOLOGY - 02/11/2024 16:43 EDT Right Eye Quality was poor. Scan locations included juxtafoveal. Progression has improved. Findings include intraretinal fluid. Left Eye Quality was borderline. Progression has been stable. Findings include normal foveal contour. Notes Some inner retinal atrophy both eyes OCT-A enlarged CJ left eye (poor signal right eye us Hung Harp MD OPHTH TOMOGRAPHY Final Result [facility] OPHTHALMOLOGY documented in this encounter Visit Diagnoses Diagnosis Type 2 diabetes mellitus with both eyes affected by moderate nonproliferative retinopathy without macular edema, with long-term current use of insulin ([facility])- Primary Combined forms of age-related cataract of both eyes Other and combined forms of senile cataract documented in this encounter Eye Exam Visual Acuity (Snellen - Linear) Right eye Left eye Dist sc CF at 3' 20/200 Dist ph sc 20/80 Tonometry (Applanation, 14:18) Right eye Left eye Pressure 19 17 Pupils Dark Light Shape React APD Right eye 4 3 Round Slow None Left eye 3 2 Round Slow None Extraocular Movement Right eye Left eye Full Full Neuro/Psych Oriented x3: Yes Mood/Affect: Normal Dilation Both eyes: Phenylephrine 2.5 %, Tropicamide 1% @ 14:18 Slit Lamp Exam Right eye Left eye [...] all 4 quadrants. No alireza Care Teams Technical Education Teacher Relationship Specialty Start Date End Date Sharon Vargas MD [address] [place] [phone] PCP - General 09/09/15 documented as of this encounter
--- OUTSIDE RECORDS SUMMARY | 2024-10-06 22:54 | XMS_ITS | Encounter Summary ---
Author Organization [facility] Address [address] [place] [address] Care Team Providers Care Aws Architect Name Role Phone Sharon Vargas MD Primary Care Provider [phone] Encounter Details Date Type Department Care Team (Late st Contact Info) Description 09/20/2023 [facility] [address] [place] [phone] Salome Myles MD [address] [place] [phone] Social History Tobacco Use Types Packs/Day Years Used Date Smoking Tobacco: Never Assessed Comments Unknown Sex and Gender Information Value Date Recorded Sex Assigned at Not on file Legal Sex Female 18:01 EST Gender Identity Female 01/04/2024 11:39 EDT Sexual Orientation Not on file documented as of this encounter Progress Notes * Salome yMles MD - 09/20/2023 1254 EST Patient called to cancel clinic visit (scheduled for 1500 today 09/20/23) due to transportation difficulties. Will call back to reschedule at another time documented in this encounter Plan of Treatment Upcoming Encounters Date Type Department Care Team (Late st Contact Info) Description 10/27/2024 14:15 EST Office Visit [facility] [address] [place] [address] Consuelo Nicole MD [address] [place] [phone] documented as of this encounter Visit Diagnoses Not on filedocumented in this encounter Care Teams Aws Architect Relationship Specialty Start Date End Date Sharon Vargas MD [address] [place] [phone] PCP - General 09/09/15 documented as of this encounter
--- OUTSIDE RECORDS SUMMARY | 2024-10-06 22:54 | XMS_ITS | Encounter Summary ---
Author Organization [facility] Address [address] [place] [address] Care Team Providers Care Block Handler Name Role Phone Unavailable Primary Care Provider Unavailabl e Encounter Details Date Type Department Care Team (Late st Contact Info) Description 07/03/1999 11:27 EDT Hospital Encounter [facility] [address] [place] [address] [place] [address] [place] [address] Unknown, Provider, Social History Tobacco Use Types Packs/Day Years [...] Info) Description 10/27/2024 14:15 EST Office Visit [facility] Ophthalmology [facility] [address] [place] [address] Consuelo Nicole MD [address] [place] [phone] documented as of this encounter Visit Diagnoses Not on filedocumented in this encounter
--- OUTSIDE RECORDS SUMMARY | 2024-10-06 22:54 | XMS_ITS | Encounter Summary ---
Author Organization [facility] Address [address] [place] [address] Care Team Providers Care Traffic Court Referee Name Role Phone Sharon Vargas MD Primary Care Provider [phone] Encounter Details Date Type Department Care Team (Late st Contact Info) Description 08/23/2023 Documentation Visit [facility] Endoscopy [address] [place], [place] [address] Kain Cantu MD [facility] [address] [place] [address] Social History Tobacco Use Types Packs/Day Years Used Date Smoking Tobacco: Never Assessed Comments Unknown Sex and Gender Information Value Date Recorded Sex Assigned at Not on file Legal Sex Female 18:01 EST Gender Identity Female 01/04/2024 11:39 EDT Sexual Orientation Not on file documented as of this encounter Progress Notes * Kain Cantu MD - 08/23/2023 1659 EST No show for clinic documented in this encounter Plan of Treatment Upcoming Encounters Date Type Department Care Team (Late st Contact Info) Description 10/27/2024 14:15 EST Office Visit [facility] Ophthalmology - [place] [address] [place], [place] [phone] Consuelo Nicole MD [address] [place] [phone] documented as of this encounter Visit Diagnoses Not on filedocumented in this encounter Care Teams Traffic Court Referee Relationship Specialty Start Date End Date Sharon Vargas MD [address] [place] [phone] PCP - General 09/09/15 documented as of this encounter
--- OUTSIDE RECORDS SUMMARY | 2024-10-06 22:54 | XMS_ITS | Encounter Summary ---
Author Organization [facility] Address [address] [place] [address] Care Team Providers Care Patch Washer Name Role Phone Sharon Vargas MD Primary Care Provider [phone] Encounter Details Date Type Department Care Team (Late Contact Info) Description 12/03/2015 Abstract [facility] Nephrology - [address] [address] Junaid Olivarez MD [address] [place] [address], [address] [place] [address] Social History Tobacco Use Types Packs/Day Years [...] Info) Description 10/27/2024 14:15 EST Office Visit [facility] Ophthalmology [facility] [address] [place] [address] Consuelo Nicole MD [address] [place] [phone] documented as of this encounter Procedures Procedure Name Priority Date/Time Associated Diagnosis Comments GLUCOSE, SERUM Routine 10/29/2015 URINE [id number] RATIO (ACR) Routine 10/16/2015 COMPREHENSIVE METABOLIC PANEL (CMP) Routine 02/18/2015 COMPLETE BLOOD COUNT Routine 05/28/2014 HEMOGLOBIN A1C Routine 05/28/2014 COMPREHENSIVE METABOLIC PANEL (CMP) Routine 05/28/2014 documented in this encounter Results * GLUCOSE, SERUM (10/29/2015) Glucose, Serum, External 113 [facility] Blood specimen (specimen) 10/29/2015 Sharon Vargas MD CHEMISTRY & BLOOD GAS ORDERABL ES Final Result Performing Organization Address [facility]/ZIP Co de Phone Number [facility] * ALBUMIN, URINE (10/16/2015) Microalb ug/mg Crea, External 312.7 [facility] Microalb mg/dl, External 84.7 [facility] Creatinine, Random U (UCRR), External 27.09 [facility] Urine specimen (specimen) 10/16/2015 Sharon Vargas MD CHEMISTRY & BLOOD GAS ORDERABL ES Edited Result - Final Performing Organization Address [facility]/ZIP Co de Phone Number [facility] * COMPREHENSIVE METABOLIC PANEL (CMP) (02/18/2015) GFR, Calculated, External >60 [facility] Glucose, Serum, External 354 [facility] Albumin, External 3.0 [facility] Total Alkaline Phosphatase, External 148 [facility] ALT, External 48 [facility] AST, External 24 [facility] BUN, External 6 [facility] Calculated Calcium, External [facility] Calcium, External 9.0 [facility] Chloride, External 99 [facility] CO2, External 31.5 [facility] Creatinine, External 0.5 [facility] Fasting?, External [facility] Potassium, External 4.7 [facility] Sodium, External 137 [facility] Total Protein, External 6.9 [facility] Bilirubin, Total, External 0.31 [facility] Blood specimen (specimen) 02/18/2015 Sharon Vargas MD CHEMISTRY & BLOOD GAS ORDERABL ES Final Result [facility] * HEMOGLOBIN A1C (05/28/2014) Hemoglobin A1C, External 8.7 [facility] Est Avg Glucose, External [facility] Blood specimen (specimen) 05/28/2014 Sharon Vargas MD CHEMISTRY & BLOOD GAS ORDERABL ES Final Result Performing Organization Address [facility]/ZIP Co de Phone Number [facility] * COMPREHENSIVE METABOLIC PANEL (CMP) (05/28/2014) GFR, Calculated, External >60 [facility] Glucose, Serum, External 151 [facility] Albumin, External 2.9 [facility] Total Alkaline Phosphatase, External 137 [facility] ALT, External 86 [facility] AST, External 81 [facility] BUN, External 9 [facility] Calculated Calcium, External [facility] Calcium, External 8.0 [facility] Chloride, External 104 [facility] CO2, External 28.8 [facility] Creatinine, External 0.5 [facility] Fasting?, External [facility] Potassium, External 4.2 [facility] Sodium, External 140 [facility] Total Protein, External 6.4 [facility] Bilirubin, Total, External 0.2 [facility] Blood specimen (specimen) 05/28/2014 Sharon Vargas MD CHEMISTRY & BLOOD GAS ORDERABL ES Final Result Performing Organization Address City/[facility]/ZIP Co de Phone Number [facility] * HEMAGRAM (05/28/2014) HCT, External 35.7 [facility] MCH, External [facility] MCV, External [facility] MCHC, External [facility] Hemoglobin, External 11.4 [facility] WBC, External 7.76 [facility] RBC, External 3.83 [facility] PLT, External 461 [facility] RDW-CV, External [facility] Blood specimen (specimen) 05/28/2014 us Sharon Vargas MD HEMATOLOGY & PF4 ORDERABLES Fi nal Result [facility] documented in this encounter Visit Diagnoses Not on filedocumented in this encounter Historical Medications * This list may reflect changes made after this encounter. docusate sodium (COLACE) 100 mg capsule Take 1 Capsule by mouth 2 times daily. melatonin 3 mg tablet Take 3 Tablets by mouth at bedtime. omeprazole (PRILOSEC) 40 mg capsule Take 1 Capsule by mouth daily. aspirin 81 mg EC tablet Take 1 Tablet by mouth daily. atorvastatin (LIPITOR) 20 mg tablet Take 2 Tablets by mouth daily. albuterol 90 mcg/actuation inhaler Inhale 2 Puffs as directed every 4 hours as needed for Wheezing. fluticasone-salm eterol (ADVAIR) 500-50 mcg/dose diskus inhaler Inhale 1 Puff as directed 2 times daily. 4 gabapentin (NEURONTIN) 300 mg capsule Take 900 mg by mouth 3 times daily. 4 insulin aspart protamine-insuli n aspart (NOVOLOG 70/30) 100 unit/mL (70-30) injection Inject into the skin 2 times daily with breakfast and dinner. 4 insulin glargine 300 unit/mL (1.5 mL) insulin pen Inject 200 Units into the skin 3 times daily. 4 amitriptyline (ELAVIL) 75 mg tablet Take 2 Tablets by mouth at bedtime. 4 metFORMIN (GLUCOPHAGE) 1,000 mg tablet Take 1 Tablet by mouth 2 times daily. 4 buPROPion (WELLBUTRIN XL) 300 mg XL tablet Take 200 mg by mouth daily. 4 valsartan (DIOVAN) 80 mg tablet Take 1 Tablet by mouth daily. 4 buprenorphine-na loxone (SUBOXONE) 8-[address] 2 Film under the tongue daily. 4 sitaGLIPtin (JANUVIA) 100 mg tablet Take 100 mg by mouth daily. 4 added in this encounter Care Teams Patch Washer Relationship Specialty Start Date End Date Sharon Vargas MD [address] [place] [address] PCP - General 09/09/15 documented as of this encounter
--- OUTSIDE RECORDS SUMMARY | 2024-10-06 22:54 | XMS_ITS | Encounter Summary ---
Author Organization [facility] Address [address] [place] [address] Care Team Providers Care Resource Conservationist Name Role Phone Unavailable Primary Care Provider Unavailabl e Encounter Details Date Type Department Care Team (Latest Contact Info) Description 04/03/2003 19:00 EDT Hospital Encounter [facility] Emergency Department - Main [place] [address] [place], [place] [address] Emergency, Default, MD Discharge Disposition: Home or Self Care Social History Tobacco Use Types Packs/Day Years Used Date Smoking Tobacco: Never Assessed Comments Unknown Sex and Gender Information Value Date Recorded Sex Assigned at Not on file Legal Sex Female 18:01 EST Gender Identity Female 01/04/2024 11:39 EDT Sexual Orientation Not on file documented as of this encounter Discharge Disposition Disposition Code Departure Means Destination Home or Self Care documented in this encounter Plan of Treatment Upcoming Encounters Date Type Department Care Team (Late st Contact Info) Description 10/27/2024 14:15 EST Office Visit [facility] Ophthalmology [facility] [address] [place] [address] Consuelo Nicole MD [address] [place] [address] documented as of this encounter Procedures Procedure Name Priority Date/Time Associated Diagnosis Comments CYTOPATHOLOGY Routine 06/26/2009 0:00 EDT documented in this encounter Results * CYTOPATHOLOGY (06/26/2009 0:00 EDT) Pathology Report: CYTOPATHOLOGY REPORT ? Reports generated via electronic interface contain original data; ? however they are lacking the format of the original report. ? Caution should be taken when reading/interpreti ng unformatted reports. ? Name: ? LEA MCGOWAN ? Accession #: ? [id number] ? : ? 1975 (Age: 34) ??F ?Collect Date: ? 06/26/2009 ? Location: ? [facility] ? Receive Date: ? 06/28/2009 ? Provider: ?SHARON BEATRIZ MD ? Copy to: ? Specimen/Source: ?Pap Test, Cervix/Endocervix, ThinPrep Imaging System ? with manual evaluation ? Last Menstrual Period: ? SPECIMEN ADEQUACY ? Satisfactory for Evaluation ? - transformation zone component present ? GENERAL CATEGORIZATION ? Negative for Intraepithelial Lesion or Malignancy ? Document reviewed and electronically signed by: ? Marie Montrose, [place](ASCP) ? Report Date: ??07/03/2009 14:12 ? End of Report ? [facility] 06/26/2009 06/28/2009 us Sharon Vargas MD PATHOLOGY ORDERABLES Final Res ult [facility] [address] [place] [address] documented in this encounter Visit Diagnoses Not on filedocumented in this encounter
--- OUTSIDE RECORDS SUMMARY | 2024-10-06 22:54 | XMS_ITS | Encounter Summary ---
Author Organization [facility] Address [address] [place] [address] Care Team Providers Care Forestry Workers Name Role Phone Unavailable Primary Care Provider Unavailabl e Encounter Details Date Type Department Care Team (Late st Contact Info) Description 01/15/2000 Results Only [facility] [address] [place] [address] Yoel Deleon MD [address] [place], [place] [address] Social History Tobacco Use Types Packs/Day Years [...] Info) Description 10/27/2024 14:15 EST Office Visit [facility] [address] [place] [address] Consuelo Nicole MD [address] [place] [address] documented as of this encounter Procedures Procedure Name Priority Date/Time Associated Diagnosis Comments CYTOPATHOLOGY Routine 01/15/2000 13:24 EST documented in this encounter Results * CYTOPATHOLOGY (01/15/2000 13:24 EST) Pathology Report: CYTOPATHOLOGY REPORT Reports generated via electronic interface contain original data; however they are lacking the format of the original report. Caution should be taken when reading/interpreti ng unformatted reports. Name: ? LEA MCGOWAN ? Accession #: ? [id number] : ? 1975 (Age: 25) ??F ?Collect Date: ? 01/15/2000 Location: ?Receive Date: ? 01/15/2000 Provider: ?YOEL DELEON MD Copy to: ?YOEL DELEON MD ? Specimen/Source: ?Pap Smear (One Slide) Last Menstrual Period: ? GYNECOLOGIC ??CYTOPATHOLOGY ??REPORT Name: LEA MCGOWAN ? FA : 1975 ?? 25Y F ?Client ID: [id number] SS#: [id number] ? Clinician: YOEL DELEON MD ?? Location: [facility] ??Copy to: ?? Specimen: ?Pap Smear (One Slide) ? Source: Cervix/Endocervix ?Collected: 01/13/00 ? Received: 01/15/2000 ?LMP: 03/10/00 ? Hormone Therapy: No ? : No ? Radiation Therapy: No ?? Post : Yes ? Chemotherapy: No ?IUD: No ? Prev Abnormal Pap: No ?? Clinical Hx: ?(Blank rucker indicate information not provided on requisition) SPECIMEN ADEQUACY: ? Satisfactory For Evaluation ?? GENERAL CATEGORIZATION: ? BENIGN CELLULAR CHANGES ?? DESCRIPTIVE DIAGNOSIS: ? Predominance Of Coccobacilli Present Consistent With A Shift In ? Vaginal Mabel ? Reviewed And Electronically Signed By: ? Lizbeth Faye, SCT(ASCP) ? Report Date: ?? 01/22/2000 [facility] Archived Tests - Final Diagnosis Text Field: Clinical History : ? Document reviewed and electronically signed by: ? Conversion ? Report Date: ??01/22/2000 00:00 End of Report [facility] 01/15/2000 13:2 4 EST 01/15/2000 13:25 EST us Yoel Deleon MD PATHOLOGY ORDERABLES Final Resul t Performing Organization Address City/State/[facility] Co de Phone Number [facility] [address] [place] [address] documented in this encounter Visit Diagnoses Not on filedocumented in this encounter
--- OUTSIDE RECORDS SUMMARY | 2024-10-06 22:54 | XMS_ITS | Encounter Summary ---
Author Organization [facility] Address [address] [place] [address] Care Team Providers Care Fish Hatchery Manager Name Role Phone Sharon Vargas MD Primary Care Provider [phone] Encounter Details Date Type Department Care Team (Late st Contact Info) Description 04/21/2023 Lab Requisition [facility] Pathology & Laboratory Medicine - [facility] [address] [place] [address] Outr Resulting Lab, Provider Social History Tobacco Use Types Packs/Day Years [...] Info) Description 10/27/2024 14:15 EST Office Visit [facility] [address] [place] [address] Consuelo Nicole MD [address] [place] [address] documented as of this encounter Procedures Procedure Name Priority Date/Time Associated Diagnosis Comments ANAEROBE CULTURE, REFERENCE Routine 04/21/2023 14:17 EDT documented in this encounter Results * ANAEROBE CULTURE, REFERENCE (04/21/2023 14:17 EDT) Organism ID No Anaerobes Isolated 05/01/2023 12:00 EDT [facility] Tissue ENTIRE TOE / Unknown 04/21/2023 14:17 EDT 04/21/2023 21:25 EDT us Provider Outr Resulting Lab MICROBIOLOGY - GENER AL ORDERABLES Final Result Performing Organization Address City/State/[facility] Co de Phone Number [facility] [address] [place] [address] documented in this encounter Visit Diagnoses Not on filedocumented in this encounter Care Teams Fish Hatchery Manager Relationship Specialty Start Date End Date Sharon Vargas MD [address] [place] [address] PCP - General 09/09/15 documented as of this encounter
--- OUTSIDE RECORDS SUMMARY | 2024-10-06 22:54 | XMS_ITS | Encounter Summary ---
Author Organization [facility] Address [address] [place] [address] Care Team Providers Care Stage Builder Name Role Phone Sharon Vargas MD Primary Care Provider [phone] Reason for Visit * Reason Onset Date Comments Appointment Related 11/09/2023 Encounter Details Date Type Department Care Team (Late st Contact Info) Description 11/09/2023 Telephone [facility] [address] [place], [place] [address] Consuelo Nicole MD [address] [place] [phone] Appointment Related Social History Tobacco Use Types Packs/Day Years Used Date Smoking Tobacco: Never Assessed Comments Unknown Sex and Gender Information Value Date Recorded Sex Assigned at Not on file Legal Sex Female 18:01 EST Gender Identity Female 01/04/2024 11:39 EDT Sexual Orientation Not on file documented as of this encounter Miscellaneous Notes * Telephone Encounter - Connie Ramirez - 11/09/2023 1035 EST Unable to leave [facility] no mail box set up. Contacted primary to let them know and to have them send her last notes from [facility] Schedule with Dr. Nicole in 6 weeks for NPV dm exam per Dr. Nicole documented in this encounter Plan of Treatment Upcoming Encounters Date Type Department Care Team (Late st Contact Info) Description 10/27/2024 14:15 EST Office Visit [facility] [address] [place], [place] [address] Consuelo Nicoel MD [address] [place] [phone] documented as of this encounter Visit Diagnoses Not on filedocumented in this encounter Care Teams Stage Builder Relationship Specialty Start Date End Date Sharon Vargas MD [address] [place] [phone] PCP - General 09/09/15 documented as of this encounter
--- OUTSIDE RECORDS SUMMARY | 2024-10-06 22:54 | XMS_ITS | Encounter Summary ---
Author Organization [facility] Address [address] [place] [address] Care Team Providers Care Oxygen Therapist Name Role Phone Sharon Vargas MD Primary Care Provider Encounter Details Date Type Department Care Team (Latest Contact Info) Description 03/27/2016 8:14 EDT - 03/27/2016 23:59 EDT Hospital Encounter [facility] [address] [place] [address] Unknown, Provider, MD Discharge Disposition: Home or Self Care Social History Tobacco Use Types Packs/Day Years Used Date Smoking Tobacco: Never Assessed Comments Unknown Sex and Gender Information Value Date Recorded Sex Assigned at Not on file Legal Sex Female 18:01 EST Gender Identity Female 01/04/2024 11:39 EDT Sexual Orientation Not on file documented as of this encounter Medications at Time of Discharge albuterol 90 mcg/actuation inhaler Inhale 2 Puffs as directed every 4 hours as needed for Wheezing. aspirin 81 mg EC tablet Take 1 Tablet by mouth daily. atorvastatin (LIPITOR) 20 mg tablet Take 2 Tablets by mouth daily. docusate sodium (COLACE) 100 mg capsule Take 1 Capsule by mouth 2 times daily. melatonin 3 mg tablet Take 3 Tablets by mouth at bedtime. omeprazole (PRILOSEC) 40 mg capsule Take 1 Capsule by mouth daily. amitriptyline (ELAVIL) 75 mg tablet Take 2 Tablets by mouth at bedtime. 4 buprenorphine-na loxone (SUBOXONE) 8-[address] 2 Film under the tongue daily. 4 buPROPion (WELLBUTRIN XL) 300 mg XL tablet Take 200 mg by mouth daily. 4 fluticasone-salm eterol (ADVAIR) 500-50 mcg/dose diskus inhaler [...] into the skin 3 times daily. 4 metFORMIN (GLUCOPHAGE) 1,000 mg tablet Take 1 Tablet by mouth 2 times daily. 4 sitaGLIPtin (JANUVIA) 100 mg tablet Take 100 mg by mouth daily. 4 valsartan (DIOVAN) 80 mg tablet Take 1 Tablet by mouth daily. 4 documented as of this encounter Discharge Disposition Disposition Code Departure Means Destination Home or Self [facility] documented in this encounter Plan of Treatment Upcoming Encounters Date Type Department Care Team (Late st Contact Info) Description 10/27/2024 14:[address] [facility] Ophthalmology [facility] [address] [place] [address] Consuelo Nicole MD [address] [place] [address] documented as of this encounter Visit Diagnoses Not on filedocumented in this encounter Care Teams Oxygen Therapist Relationship Specialty Start Date End Date Sharon Vargas MD [address] [place] [address] PCP - General 09/09/15 documented as of this encounter
--- OUTSIDE RECORDS SUMMARY | 2024-10-06 22:54 | XMS_ITS | Encounter Summary ---
Author Organization [facility] Address [address] [place] [address] Care Team Providers Care Sound Equipment Mechanic Name Role Phone Sharon Vargas MD Primary Care Provider [phone] Encounter Details Date Type Department Care Team (Late st Contact Info) Description 04/01/2022 Lab Requisition [facility] Pathology & Laboratory Medicine - [facility] [address] [place] [address] Outr Resulting Lab, Provider Social History Tobacco [...] Info) Description 10/27/2024 14:15 EST Office Visit [facility] [address] [place] [address] Consuelo Nicole MD [address] [place] [address] documented as of this encounter Procedures Procedure Name Priority Date/Time Associated Diagnosis Comments GGT Routine 04/01/2022 14:29 EDT documented in this encounter Results * (ABNORMAL) GGT (04/01/2022 14:29 EDT) GGT 224(H) <44 U/L 04/01/2022 21:22 EDT [facility] Blood VENOUS BLOOD / Unknown 04/01/2022 14:29 EDT 04/01/2022 21:09 EDT us Provider Outr Resulting Lab CHEMISTRY & BLOOD GA S ORDERABLES Final Result Performing Organization Address City/State/[facility] Co de Phone Number [facility] [address] [place] [address] documented in this encounter Visit Diagnoses Not on filedocumented in this encounter Care Teams Sound Equipment Mechanic Relationship Specialty Start Date End Date Sharon Vargas MD [address] [place] [phone] PCP - General 09/09/15 documented as of this encounter
--- OUTSIDE RECORDS SUMMARY | 2024-10-06 22:54 | XMS_ITS | Encounter Summary ---
Author Organization [facility] Address [address] [place] [address] Care Team Providers Care Sprinkling Truck Driver Name Role Phone Sharon Henderson MD Primary Care Provider [phone] Encounter Details Date Type Department Care Team (Late st Contact Info) Description 12/09/2016 Results Only [facility] [phone] Sharon Henderson MD [address] [place] [address] Social History Tobacco Use Types Packs/Day Years [...] Info) Description 10/27/2024 14:15 EST Office Visit [facility] [address] [place] [address] Consuelo Nicole MD [address] [place] [address] documented as of this encounter Procedures Procedure Name Priority Date/Time Associated Diagnosis Comments PAP TEST- RESULT ONLY Routine 12/09/2016 0:00 EST documented in this encounter Results * PAP TEST- RESULT ONLY (12/09/2016 0:00 EST) Pathology Report: CYTOPATHOLOGY REPORT Reports generated via electronic interface contain original data; however they are lacking the format of the original report. Caution should be taken when reading/interpreti ng unformatted reports. Name: ? FE LEA ? Accession #: ? [id number] ? : ? 1975 (Age: 41) ??F ?Collect Date: ? 12/09/2016 ? Location: ? [facility] ? Receive Date: ? 12/14/2016 ? Provider: SHARON HENDERSON MD Copy to: ? Final Report SPECIMEN ADEQUACY ? Satisfactory for Evaluation - transformation zone component present GENERAL CATEGORIZATION ? Negative for Intraepithelial Lesion or Malignancy INTERPRETATION ? Reactive cellular changes associated with inflammation present (includes repair). Last Menstrual Period: 11/25/16 Specimen/Source: ??Pap Test, Cervix/Endocervix, ThinPrep Imaging System with manual evaluation Document reviewed and electronically signed by: ? TOMMY BATRES MD ? Report ??Date: 12/18/2016 11:10 HPV with Pap Test ? Date Ordered: ? 12/18/2016 ? Status: ?? Signed Out ?Date Complete: ? 12/21/2016 ? By: ??System Interface ? Date Reported: ? 12/21/2016 ? Interpretation RESULT: Positive for high or intermediate risk HPV. E6 OR E7 mRNA from one or more types of HPV types 16,18,31, 33,35,39,45,51,52, 56,58,59,66, and 68 is detected by sheet metal work furnace installer mediated amplification. High and intermediate risk HPV types are associated with most squamous intraepithelial lesions and cervical cancers. Comments Document reviewed and electronically signed by: ? System Interface ? Report date: 12/21/2016 By the signature above, the attending physician certifies that he/she has personally conducted a gross and/or microscopic examination of the described specimens and rendered or confirmed the above diagnosis. End of Report [facility] 12/09/2016 12/14/2016 us Sharon Henderson MD PATHOLOGY ORDERABLES Final Res ult [facility] [address] [place] [address] documented in this encounter Visit Diagnoses Not on filedocumented in this encounter Care Teams Sprinkling Truck Driver Relationship Specialty Start Date End Date Sharon Henderson MD [address] [place] [phone] PCP - General 09/09/15 documented as of this encounter
--- OUTSIDE RECORDS SUMMARY | 2024-10-06 22:54 | XMS_ITS | Encounter Summary ---
Author Organization [facility] Address [address] [place] [address] Care Team Providers Care Steel Tester Name Role Phone Sharon Vargas MD Primary Care Provider [phone] Encounter Details Date Type Department Care Team (Late st Contact Info) Description 01/02/2023 Lab Requisition [facility] Pathology & Laboratory Medicine - [facility] [address] [place] [address] Outr Resulting Lab, Provider Social History Tobacco [...] Info) Description 10/27/2024 14:15 EST Office Visit [facility] Ophthalmology [facility] [address] [place] [address] Consuelo Nicole MD [address] [place] [address] documented as of this encounter Procedures Procedure Name Priority Date/Time Associated Diagnosis Comments HCV RNA DETECT QUANT Today 01/01/2023 11:40 EDT HEPATITIS C AB W REFLEX TO HCV RNA BY PCR Routine 01/01/2023 11:40 EDT documented in this encounter Results * (ABNORMAL) HCV RNA DETECT QUANT (01/01/2023 11:40 EDT) HCV RNA Qualitative Detected( A) Undetected 01/04/2023 12:46 EDT [facility] HCV RNA Quantitative 3,370,000 (H) Undetected IU/mL 01/04/2023 12:46 EDT [facility] Blood VENOUS BLOOD / Unknown 01/01/2023 11:40 EDT 2023 15:59 EDT Narrative [facility] - 01/04/2023 12:46 EDT The quantification range of this assay is 15 IU/mL to 100,000,000 IU/mL. Testing was performed using the Jaron HCV test ([employer] with the jaron [employer] System. us Provider Outr Resulting Lab CHEMISTRY & BLOOD GA S ORDERABLES Final Result Performing Organization Address [facility]/ZIP Co de Phone Number [facility] [address] [place] [address] * (ABNORMAL) HEPATITIS C AB W REFLEX TO HCV RNA BY PCR (01/01/2023 11:40 EDT) Pathologist [facility] Hep C Antibody Reactive(A ) Negative 01/04/2023 10:01 EDT [facility] Comment: Supplemental testing for HCV RNA is ordered to rule out active HCV infection. Blood VENOUS BLOOD / Unknown 01/01/2023 11:40 EDT 2023 15:59 EDT us Provider Outr Resulting Lab CHEMISTRY & BLOOD GA S ORDERABLES Final Result Performing Organization Address City/[facility]/ZIP Co de Phone Number [facility] [address] [place] [address] documented in this encounter Visit Diagnoses Not on filedocumented in this encounter Care Teams Steel Tester Relationship Specialty Start Date End Date Sharon Vargas MD [address] [place] [phone] PCP - General 09/09/15 documented as of this encounter
--- OUTSIDE RECORDS SUMMARY | 2024-10-06 22:54 | XMS_ITS | Encounter Summary ---
Author Organization [facility] Address [address] [place] [address] Care Team Providers Care Account Executive Name Role Phone Unavailable Primary Care Provider Unavailabl e Encounter Details Date Type Department Care Team (Late st Contact Info) Description 04/29/2001 Results Only [facility] [address] [place] [address] [place] [address] Social History Tobacco Use Types Packs/Day Years [...] Info) Description 10/27/2024 14:15 EST Office Visit [facility] [address] [place] [address] Consuelo Nicole MD [address] [place] [phone] documented as of this encounter Procedures Procedure Name Priority Date/Time Associated Diagnosis Comments CYTOPATHOLOGY Routine 04/29/2001 0:00 EDT documented in this encounter Results * CYTOPATHOLOGY (04/29/2001 0:00 EDT) Pathology Report: CYTOPATHOLOGY REPORT Reports generated via electronic interface contain original data; however they are lacking the format of the original report. Caution should be taken when reading/interpreti ng unformatted reports. Name: ? SAELEA ? Accession #: ? [id number] : ? 1975 (Age: 26) ??F ?Collect Date: ? 04/29/2001 Location: ? [facility] ? Receive Date: ? 05/04/2001 Provider: ?LIZBETH WILD CNM Copy to: ? Specimen/Source: ?Conventional Pap Test, Cervix/Endocervix Last Menstrual Period: ? 08/25/01 Menstrual/Pregnanc y Status: ? SPECIMEN ADEQUACY ? Satisfactory for evaluation. GENERAL CATEGORIZATION ? Epithelial Cell Abnormality DESCRIPTIVE DIAGNOSIS ? Atypical squamous cells of undetermined significance (ASCUS), favor reactive process. RECOMMENDATION ? Recommend repeat Pap test in 3-6 months or further follow up, as clinically indicated. ? Document reviewed and electronically signed by: ? QUINCY GUALLPA MD [facility] ? Report Date: ??05/06/2001 17:41 End of Report NATHAN SETHI 04/29/2001 05/04/2001 Lizbeth Wild CNM PATHOLOGY ORDERABLES Final Res ult [facility] [address] [place] [address] documented in this encounter Visit Diagnoses Not on filedocumented in this encounter
--- OUTSIDE RECORDS SUMMARY | 2024-10-06 22:54 | XMS_ITS | Encounter Summary ---
Author Organization [facility] Address [address] [place] [address] Care Team Providers Care Senior Laboratory Technician Name Role Phone Unavailable Primary Care Provider Unavailabl e Encounter Details Date Type Department Care Team (Late st Contact Info) Description 05/30/2001 Results Only [facility] [address] [place] [address] Yoel Deleon MD [address] [place], [place] [address] Social History Tobacco Use Types Packs/Day Years [...] Info) Description 10/27/2024 14:15 EST Office Visit [facility] [address] [place] [address] Consuelo Nicole MD [address] [place] [address] documented as of this encounter Procedures Procedure Name Priority Date/Time Associated Diagnosis Comments SURGICAL PATHOLOGY Routine 05/30/2001 0:00 EDT documented in this encounter Results * SURGICAL PATHOLOGY (05/30/2001 0:00 EDT) Pathology Report: SURGICAL PATHOLOGY REPORT Reports generated via electronic interface contain original data; however they are lacking the format of the original report. Caution should be taken when reading/interpreti ng unformatted reports. Name: ? LEA LAMAS ? Accession #: ? [id number] ? : ? 1975 (Age: 26) ??F ? Collect Date: ? 05/30/2001 ? Location: ? [facility] ? Receive Date: ? 05/30/2001 ? Provider: YOEL DELEON MD Copy to: HOWIE ACOSTA MD ? Final Pathologic Diagnosis: A. ?Fallopian tube, left, tubal ligation: 1. ?Full cross sections obtained with no pathologic features. B. ?Fallopian tube, right, tubal ligation: 1. ?Full cross sections obtained with no pathologic features. Document reviewed and electronically signed by: Marie Landers MD Report ??Date: 06/02/2001 17:38 By the signature above, the attending physician certifies that he/she has personally conducted a gross and/or microscopic examination of the described specimens and rendered or confirmed the above diagnosis. Specimen(s) Received: A. ?Left fallopian tube (#1) B. ?Right fallopian tube (#2) Clinical History: ? Elective sterilization Gross Description: ? Received in formalin labelled Lamas and left fallopian tube #1 is a convoluted tubular structure received interrupted measuring 1.8 x 0.7 cm in external diameter. ??The serosa is ewing-pink and glistening. ??Serial sections reveal a pinpoint lumen. ??Two senior human resources representative cross sections are submitted as (A). Received in formalin labelled Lamas and right fallopian tube #2 is a cylindrical piece of ewing-pink fallopian tube which measures 1.1 cm in length and 0.6 cm in external diameter. ??Serial sections reveal a pinpoint lumen. ??Two senior human resources representative cross sections are submitted as (B). ??(Dr. Conroy-PL)/[facility] End of Report NATHAN SETHI 05/30/2001 05/30/2001 15: 59 EDT us Yoel Deleon MD PATHOLOGY ORDERABLES Final Resul t [facility]ATH[facility] SETHI [address] [place] [address] documented in this encounter Visit Diagnoses Not on filedocumented in this encounter
--- OUTSIDE RECORDS SUMMARY | 2024-10-06 22:54 | XMS_ITS | Encounter Summary ---
Author Organization [facility] Address [address] [place] [address] Care Team Providers Care Branch Manager Name Role Phone Unavailable Primary Care Provider Unavailabl e Encounter Details Date Type Department Care Team (Late st Contact Info) Description 09/11/2002 Results Only [facility] conversion [address] [place] [address] Penny Vaughan, EKATERINA [address] [place] [address] Social History Tobacco Use Types Packs/Day Years [...] Office Visit [facility] [address] [place] [address] Consuelo Nicole MD [address] [place] [phone] documented as of this encounter Procedures Procedure Name Priority Date/Time Associated Diagnosis Comments CYTOPATHOLOGY Routine 09/11/2002 0:00 EST documented in this encounter Results * CYTOPATHOLOGY (09/11/2002 0:00 EST) Pathology Report: CYTOPATHOLOGY REPORT Reports generated via electronic interface contain original data; however they are lacking the format of the original report. Caution should be taken when reading/interpreti ng unformatted reports. Name: ? LEA MCGOWAN ? Accession #: ? [id number] : ? 1975 (Age: 27) ??F ?Collect Date: ? 09/11/2002 Location: ? [facility] ? Receive Date: ? 09/13/2002 Provider: ?PENNY VAUGHAN NP Copy to: ? Specimen/Source: ?ThinPrep Pap Test, Cervix/Endocervix Last Menstrual Period: ? 09/01/02 ? SPECIMEN ADEQUACY ? Satisfactory for Evaluation - transformation zone component present GENERAL CATEGORIZATION ? Negative for Intraepithelial Lesion or Malignancy ? Document reviewed and electronically signed by: ? Felipe Montgomery, MANISHA(ASCP) ? Report Date: ??09/19/2002 08:11 End of Report NATHAN SETHI 09/11/2002 09/13/2002 us Penny Vaughan NP PATHOLOGY ORDERABLES Final R esult NATHAN SETHI [address] [place] [address] documented in this encounter Visit Diagnoses Not on filedocumented in this encounter
--- OUTSIDE RECORDS SUMMARY | 2024-10-06 22:54 | XMS_ITS | Encounter Summary ---
Author Organization [facility] Address [address] [place] [address] Care Team Providers Care Engine Dynamometer Tester Name Role Phone Sharon Vargas MD Primary Care Provider [phone] Encounter Details Date Type Department Care Team (Late st Contact Info) Description 06/26/2021 Lab Requisition [facility] Pathology & Laboratory Medicine - [facility] [address] [place], [place] [address] Outr Resulting Lab, Provider Social History Tobacco [...] Info) Description 10/27/2024 14:15 EST Office Visit [facility] Ophthalmology [facility] [address] [place] [address] Consuelo Nicole MD [address] [place] [address] documented as of this encounter Procedures Procedure Name Priority Date/Time Associated Diagnosis Comments ZZCOVID-19 TEST [facility] PCR Today 06/25/2021 16:45 EDT COVID-19 TESTING Routine 06/25/2021 16:4 5 EDT documented in this encounter Results * COVID-19 TEST [facility] PCR (06/25/2021 16:45 EDT) Swab ENTIRE NASOPHARYNX / Unknown 06/25/2021 16:45 EDT 06/26/2021 16:08 EDT us Provider Outr Resulting Lab MICROBIOLOGY - GENER AL ORDERABLES Final Result Performing Organization Address City/[facility]/ZIP Co de Phone Number [facility] [address] [place] [address] * COVID-19 TESTING (06/25/2021 16:45 EDT) COVID-19 rt-PCR Result Negative Negative 06/27/2021 11:08 EDT [facility] Comment: This test has not been FDA cleared or approved. This test has been authorized by FDA under an EUA for use by authorized laboratories. This test has been authorized only for detection of nucleic acid from 2019-nCoV, not for any other viruses or pathogens. This test is only authorized for the duration of the declaration that circumstances exist justifying the authorization of emergency use of in vitro diagnostic tests for detection and/or diagnosis of 2019-nCoV under section 564(b)(1) of Act, 21 U.S.C ?? 360bbb-3(b) (1), unless the authorization is terminated or revoked sooner. Negative results do not preclude 2019-nCoV infection and should not be used as the sole basis for treatment or other patient management decisions. Negative results must be combined with clinical observations, patient history, and epidemiological information. Testing was performed using the jaron SARS-CoV-2 assay ([employer] on the Jaron 6800 System Performing Lab Jaron [address] [facility] 06/27/2021 11:08 EDT [facility] Swab 06/25/2021 16:4 5 EDT 06/26/2021 16:08 EDT us Provider Outr Resulting Lab MICROBIOLOGY - GENER AL ORDERABLES Final Result Performing Organization Address City/[facility]/ZIP Co de Phone Number [facility] [address] [place] [address] documented in this encounter Visit Diagnoses Not on filedocumented in this encounter Care Teams Engine Dynamometer Tester Relationship Specialty Start Date End Date Sharon Vargas MD [address] [place] [phone] PCP - General 09/09/15 documented as of this encounter
--- OUTSIDE RECORDS SUMMARY | 2024-10-06 22:54 | XMS_ITS | Encounter Summary ---
Author Organization [facility] Address [address] [place] [id number] Care Team Providers Care Digital Cartographic Technician Name Role Phone Sharon Henderson MD Primary Care Provider [phone] Encounter Details Date Type Department Care Team (Late st Contact Info) Description 10/19/2018 Results Only [facility] [phone] Sharon Henderson MD [address] [place] [address] Social History Tobacco Use Types [...] Office Visit [facility] [address] [place] [address] Consuelo Nicole MD [address] [place] [address] documented as of this encounter Procedures Procedure Name Priority Date/Time Associated Diagnosis Comments PAP TEST- RESULT ONLY Routine 10/19/2018 0:00 EST documented in this encounter Results * PAP TEST- RESULT ONLY (10/19/2018 0:00 EST) Pathology Report: CYTOPATHOLOGY REPORT Reports generated via electronic interface contain original data; however they are lacking the format of the original report. Caution should be taken when reading/interpreti ng unformatted reports. Name: ? LEA MIRAMONTES ? Accession #: ? [id number] ? : ? 1975 (Age: 43) ??F ?Collect Date: ? 10/19/2018 ? Location: ? [facility] ? Receive Date: ? 10/21/2018 ? Provider: SHARON HENDERSON MD Copy to: ? Final Report SPECIMEN ADEQUACY ? Satisfactory for Evaluation - transformation zone component present - scant squamous epithelial component secondary to excessive blood GENERAL CATEGORIZATION ? Negative for Intraepithelial Lesion or Malignancy ?? Last Menstrual Period: 10/06/18 Hormonal/Contracep tive status: Bilateral Tubal Ligation: S/P Infection History: Pos for HPV: 2017 Other: Additional clinical information: Z00.0 Z12.4 Specimen/Source: ??Pap Test, Cervix, ThinPrep Imaging System with manual evaluation Document reviewed and electronically signed by: ? Felipe Montgomery, MANISHA(ASCP) ? Report ??Date: 10/27/2018 09:21 HPV with Pap Test ? Date Ordered: ? 10/27/2018 ? Status: ?? Signed Out ?Date Complete: ? 10/28/2018 ? By: ??System Interface ? Date Reported: ? 10/28/2018 ? Interpretation RESULT: Negative for HPV. No E6 or E7 mRNA is detected from HPV types 16,18,31,33,35, 39,45,51,52,56,58, 59,66, and 68 by crew team member mediated amplification. Comments Document reviewed and electronically signed by: ? System Interface ? Report date: 10/28/2018 By the signature above, the attending physician certifies that he/she has personally conducted a gross and/or microscopic examination of the described specimens and rendered or confirmed the above diagnosis. End of Report [facility] 10/19/2018 10/21/2018 us Sharon Henderson MD PATHOLOGY ORDERABLES Final Res ult [facility] [address] [place] [address] documented in this encounter Visit Diagnoses Not on filedocumented in this encounter Care Teams Digital Cartographic Technician Relationship Specialty Start Date End Date Sharon Henderson MD [address] [place] [phone] PCP - General 09/09/15 documented as of this encounter
--- OUTSIDE RECORDS SUMMARY | 2024-10-06 22:54 | XMS_ITS | Encounter Summary ---
Author Organization [facility] Address [address] [place] [address] Care Team Providers Care Punch Box Tender Name Role Phone Sharon Vargas MD Primary Care Provider [phone] Encounter Details Date Type Department Care Team (Late st Contact Info) Description 03/27/2016 Historical Results Only [facility] Radiology Results [address] [place] [address] Roberth Osborne MD Social History Tobacco Use Types Packs/Day Years [...] Info) Description 10/27/2024 14:15 EST Office Visit [facility] [address] [place] [address] Consuelo Nicole MD [address] [place] [phone] documented as of this encounter Procedures Procedure Name Priority Date/Time Associated Diagnosis Comments XR CHEST 2 VIEWS 03/27/2016 20:0 9 EDT documented in this encounter Results * XR CHEST 2 VIEWS (03/27/2016 20:09 EDT) Anatomical Region Laterality Modality Other 03/27/2016 20:0 9 EDT Narrative 03/27/2016 20:09 EDT ? EXAM: RADIOLOGY/CHEST (PA ?? LAT) ?EX. D/ (195) ? CLINICAL INFORMATION: ? CHEST PAIN ? EXAM: ? XR Chest, 2 Views. ? CLINICAL HISTORY: ? 41 years old, female; Pain; Chest pain; Additional info: Chest ? pain ? TECHNIQUE: ? Frontal and lateral views of the chest. ? COMPARISON: ? No relevant prior studies available. ? FINDINGS: ? Lungs: ??Unremarkable. ??No consolidation. ? Pleural spaces: ??Unremarkable. ??No pneumothorax. ? Heart: ??Unremarkable. ??No cardiomegaly. ? Mediastinum: ??Unremarkable. ? Bones/joints: ??Unremarkable. ??No acute fracture. ? IMPRESSION: ? Normal chest. ? REPORT SIGNED IN OTHER VENDOR SYSTEM 03/27/2016 ?Reported By: Greyson Gan MD ? CC: ? Transcribed Date/Time: 03/27/2016 (2008) ? Corrections Unit Supervisor: ? Printed Date/Time: 03/31/2019 (31) ? PAGE 1 ? Signed Report ? Procedure Note Greyson Gan MD - 08/23/2019 EXAM: RADIOLOGY/CHEST (PA LAT) EX. D/ (1951) CLINICAL INFORMATION: CHEST PAIN EXAM: XR Chest, 2 Views. CLINICAL HISTORY: 41 years old, female; Pain; Chest pain; Additional info: Chest pain TECHNIQUE: Frontal and lateral views of the chest. COMPARISON: No relevant prior studies available. FINDINGS: Lungs: Unremarkable. No consolidation. Pleural spaces: Unremarkable. No pneumothorax. Heart: Unremarkable. No cardiomegaly. Mediastinum: Unremarkable. Bones/joints: Unremarkable. No acute fracture. IMPRESSION: Normal chest. REPORT SIGNED IN OTHER VENDOR SYSTEM 03/27/2016 Reported By: Greyson Gan MD CC: Transcribed Date/Time: 03/27/2016 (2008) Corrections Unit Supervisor: Printed Date/Time: 03/31/2019 (0032) PAGE 1 Signed Report us Roberth Osborne MD IMG DIAGNOSTIC IMAGING ORDERABL ES Final Result documented in this encounter Visit Diagnoses Not on filedocumented in this encounter Care Teams Punch Box Tender Relationship Specialty Start Date End Date Sharon Vargas MD [address] [place] [phone] PCP - General 09/09/15 documented as of this encounter
[2024-10-06 23:01] LABS: Absolute Basophil Count 0.11 10^3/uL (0.0-0.2); Absolute Monocyte Count 0.85 10^3/uL (0.1-0.8); Absolute Neutrophil Count 9.94 10^3/uL (1.2-6.7); Basophils % 0.7 %; Eosinophils % 2.7 %; HGB 11.7 g/dL (11.2-15.7); Immature Grans % 0.6 %; Lymphocytes % 30.1 %; MCH 27.7 pg (27.0-33.0); MCHC 30.8 % (32.0-36.0); MCV 90 fL (80-95); Monocytes % 5.2 %; Neutrophils % 60.7 %; Platelet Count 522 10^3/uL (130-400); RBC 4.23 10^6/uL (3.93-5.22); RDW 14.1 % (11.7-14.6); WBC 16.37 10^3/uL (4.4-10.8)
[2024-10-06 23:03] LABS: Absolute Eosinophil Count 0.44 10^3/uL (0.0-0.7); Absolute Lymphocyte Count 4.93 10^3/uL (1.2-3.4)
[2024-10-06 23:09] LABS: ALT 14 U/L (14-59); AST 17 U/L (15-37); Albumin 2.8 g/dL (3.4-5.0); Alkaline Phosphatase 165 U/L (46-116); Anion Gap 11.3 mmol/L (3-11); BUN 69 mg/dL (7-18); Bilirubin, Total 0.19 mg/dL (0.2-1.0); CO2 23.7 mmol/L (21.0-32.0); Calcium 8.7 mg/dL (8.5-10.1); Calculated LDL 67 mg/dL (<100); Chloride 106 mmol/L (98-107); Cholesterol 144 mg/dL (<200); Estimated GFR 7.73 (mL/min/1.73m2); Glucose 175 mg/dL (74-106); HDL Cholesterol 48 mg/dL (40-60); Potassium 4.5 mmol/L (3.5-5.1); Sodium 141 mmol/L (136-145); Total Protein 8.1 g/dL (6.4-8.2); Triglyceride 145 mg/dL (<150)
[2024-10-06 23:18] LABS: CREATININE 6.2 mg/dL (0.55-1.02)
[2024-10-09 11:41] LABS: HCV RNA Detection Quantitative 2950000 IU/mL (Undetected); HCV RNA Qualitative Detected (Undetected)
== END 2024-10-06 22:53 | disposition home or self-care (01) ==
LOC: NCHCN 22:52
PROVIDERS: PCP Family Medicine; Visit Provider Family Medicine
DX: E78.5 Hyperlipidemia, unspecified (principal); K74.60 Unspecified cirrhosis of liver
CPT/HCPCS: 80053; 80061; 86803; 87522; 85025

== ENCOUNTER 2024-10-19 21:10 | Outpatient (REF) | payer MEDICARE, MEDICAID, SELFPAY ==
--- OUTSIDE RECORDS SUMMARY | 2024-10-19 21:12 | XMS_ITS | Clinical Summary ---
Author Organization [facility] [place] [address] Care Team Providers Care Diamond Powder Mixer Name Role Phone Penny Javed APRN Primary Care Provider + Encounters Date Type Department Care Team Description 10/07/[address] [facility] in [address] [phone] Elmer Vaz Jr., MD from Last 3 Months Social History Tobacco Use Types Packs/Day Years Used Date Smoking Tobacco: Never Assessed Sex and Gender Information Value Date Recorded Sex Assigned at Not on file Gender Identity Not on file Sexual Orientation Not on file Plan of Treatment Health Maintenance Due Date Last Done Comments CT Colonography 1975 Colonoscopy 1975 Colorectal Cancer Screening 1975 FIT DNA 1975 FIT 1975 Sigmoidoscopy (10 year) with FIT yearly 1975 Sigmoidoscopy 1975 HIV screen 1993 Hepatitis C Screening 1993 Hepatitis B vaccine (0-59 yrs) (1) 1994 Tetanus/Diphtheria/Pertussis Vaccines (1 - Tdap) 01/03 HPV test 2005 PAP Smear 2005 Breast Cancer Share Decision Needed 2015 Breast Cancer screening 2015 Covid-19 Vaccine (1 - season) 2024 Influenza (Flu) vaccine (1 o f 1 - Influenza standard series) 06/18/2024 Procedures Procedure Name Priority Date/Time Associated Diagnosis Comments CT ABDOMEN AND PELVIS WO CONTRAST STAT 10/07/2024 2:31 PM EST from Last 3 Months Results * CT Abdomen & Pelvis wo Contrast (10/07/2024 2:31 PM EST) PT CLASS E [facility] ADMITDTTM [id number] [facility] PT [facility] INFO [id number]^HUSEYIN ^ELMER^J [facility] EXAM DESC CTAPWO^CT ABD PELVIS WO IV OR ORAL CONTRAST^RIS [facility] WORKSTATION ID [id number] [facility] Anatomical Region Laterality Modality Abdomen, Pelvis Computed Tomogra phy Impressions 10/07/2024 3:51 PM EST 1. ??No acute pathology. 2. ??Pneumobilia is present. Please correlate with the history of prior sphincterotomy. 3. ??Bilateral adrenal adenomas. 4. ??Prominent retroperitoneal lymph nodes are uncertain etiology, possibly reactive. Thank you for letting us participate in the care of this patient. ??If you are a health care provider and have any questions regarding this report, please contact the number below. ??For patients who have questions please contact the health physician locums urgent care that requested your imaging first. ? Narrative 10/07/2024 3:51 PM EST EXAMINATION: CT ABD PELVIS WO IV OR ORAL CONTRAST CLINICAL HISTORY: ??Reason for Abdomen: ??renal failure ??Add'l Info: TECHNIQUE: Helical CT of the abdomen and pelvis without intravenous contrast. Oral contrast was not administered. Multiplanar reformatted images were generated. COMPARISON: None FINDINGS: Lower chest: There is a 0.4 cm peripheral nodule in the left lower lobe that the appearance most suggestive of an intrapulmonary lymph node. Mild mitral valve calcification. Liver: Several small calcified granulomas are present. Charly's lobe configuration. Bile ducts: Pneumobilia. No ductal dilatation. Gallbladder: Surgically absent. Pancreas: Fatty atrophy of the pancreatic head. Spleen: Calcified splenic granulomas. Adrenals: There is a right-sided 3.0 cm hypoattenuating adrenal nodule (-13 HU) and a left-sided 0.9 cm hypoattenuating adrenal nodule (-10 HU). Kidneys: The kidneys are normal in size. No parenchymal lesion is seen in this noncontrast study. There is no collecting system dilatation. A small nonobstructing calcified stone is seen in the left sided lower pole calyx. Urinary Bladder: The bladder wall is normal. No stones or filling defects are seen. Vasculature: No aortic aneurysm. The left renal artery is ectatic. There is mild atherosclerotic calcification in the aorta and right common iliac artery. Lymph Nodes: Prominent lymph nodes can be seen in the portacaval space and in the retroperitoneum. A 1.1 cm left para-aortic lymph node is present. Gastrointestinal tract: Nondilated, no wall thickening. The appendix is visualized and is normal. Peritoneum and retroperitoneum: No free fluid. No pneumoperitoneum. No loculated fluid collection or mesenteric inflammation. Abdominal wall: There is a small fat-containing umbilical hernia. A fat-containing ventral hernia is present superior to the umbilicus. The rectus musculature is diastatic. Reproductive organs: No significant findings. Osseous structures: No acute osseous pathology. Degenerative disc disease most notably at L4-L5 and L5-S1. Procedure Note Júnior Vick MD - 10/07/2024 EXAMINATION: CT ABD PELVIS WO IV OR ORAL CONTRAST CLINICAL HISTORY: Reason for Abdomen: renal failure Add'l Info: TECHNIQUE: Helical CT of the abdomen and pelvis without intravenouscontrast. Oral contrast was not administered. Multiplanar reformatted images were generated. COMPARISON: None FINDINGS: Lower chest: There is a 0.4 cm peripheral nodule in the left lower lobethat the appearance most suggestive of an intrapulmonary lymph node. Mild mitralvalve calcification. Liver: Several small calcified granulomas are present. Charly's lobe configuration. Bile ducts: Pneumobilia. No ductal dilatation. Gallbladder: Surgically absent. Pancreas: Fatty atrophy of the pancreatic head. Spleen: Calcified splenic granulomas. Adrenals: There is a right-sided 3.0 cm hypoattenuating adrenal nodule(-13 HU) and a left-sided 0.9 cm hypoattenuating adrenal nodule (-10 HU). Kidneys: The kidneys are normal in size. No parenchymal lesion is seen inthis noncontrast study. There is no collecting system dilatation. A small nonobstructing calcified stone is seen in the left sided lower polecalyx. Urinary Bladder: The bladder wall is normal. No stones or filling defectsare seen. Vasculature: No aortic aneurysm. The left renal artery is ectatic. Thereis mild atherosclerotic calcification in the aorta and right common iliacartery. Lymph Nodes: Prominent lymph nodes can be seen in the portacaval space andin the retroperitoneum. A 1.1 cm left para-aortic lymph node is present. Gastrointestinal tract: Nondilated, no wall thickening. The appendix is visualized and is normal. Peritoneum and retroperitoneum: No free fluid. No pneumoperitoneum. Noloculated fluid collection or mesenteric inflammation. Abdominal wall: There is a small fat-containing umbilical hernia. A fat-containing ventral hernia is present superior to the umbilicus. Therectus musculature is diastatic. Reproductive organs: No significant findings. Osseous structures: No acute osseous pathology. Degenerative disc diseasemost notably at L4-L5 and L5-S1. IMPRESSION 1. No acute pathology. 2. Pneumobilia is present. Please correlate with the history of prior sphincterotomy. 3. Bilateral adrenal adenomas. 4. Prominent retroperitoneal lymph nodes are uncertain etiology,possibly reactive. Thank you for letting us participate in the care of this patient. If youare a health care provider and have any questions regarding this report,please contact the number below. For patients who have questions please contactthe health physician locums urgent care that requested your imaging first. Elmer Vaz Jr., MD IMG CT ORDERABLE S from Last 3 Months Care Teams Diamond Powder Mixer Relationship Specialty Start Date End Date Penny Javed APRN PCP - General 09/09/10
--- OUTSIDE RECORDS SUMMARY | 2024-10-19 21:12 | XMS_ITS | Encounter Summary ---
Author Organization [facility] [place] [address] Care Team Providers Care Counselor/Art Therapist Name Role Phone Penny Javed APRN Primary Care Provider + Encounter Details Date Type Department Care Team (Late st Contact Info) Description 10/07/2024 Interpretation Only in [facility] [address] [place] [address] Elmer Vaz Jr., MD [address] [place] [address] Social History Tobacco Use Types Packs/Day Years Used Date Smoking Tobacco: Never Assessed Sex and Gender Information Value Date Recorded Sex Assigned at Not on file Gender Identity Not on file Sexual Orientation Not on file documented as of this encounter Plan of Treatment Not on file documented as of this encounter Procedures Procedure Name Priority Date/Time Associated Diagnosis Comments CT ABDOMEN AND PELVIS WO CONTRAST STAT 10/07/2024 2:31 PM EST documented in this encounter Results * CT Abdomen & Pelvis wo Contrast (10/07/2024 2:31 PM EST) PT CLASS E RAD ADMITDTTM [id number] RAD PT RAD INFO [id number]^HUSEYIN ^ELMER^Cheli RAD EXAM DESC CTAPWO^CT ABD PELVIS WO IV OR ORAL CONTRAST^RIS [facility] WORKSTATION ID [id number] [facility] Anatomical Region Laterality Modality Abdomen, Pelvis Computed [...] who have questions please contact the health wound care rn that requested your imaging first. ? Narrative [...] patients who have questions please contactthe health wound care rn that requested your imaging first. Elmer Vaz Jr., MD IMG CT ORDERABLE S documented in this encounter Visit Diagnoses Not on filedocumented in this encounter Care Teams Counselor/Art Therapist Relationship Specialty Start Date End Date Penny Javed, CORNELIA PCP - General 09/09/10 documented as of this encounter
--- OUTSIDE RECORDS SUMMARY | 2024-10-19 21:13 | XMS_ITS | Continuity of Care Document ---
Author Organization [facility] Address [address] [place] [address] Care Team Providers Care Research Hydraulic Engineer Name Role Phone [facility] OPHTHALMOLOGY [facility] Ophtha lmologist Assessment Encounter Date Assessment Date Assessment LastModified by Organization Details LastModified Time 10/19/2024 10/19/2024 The total time devoted to today's encounter, including both the cokt-kg-mmiw time with the patient and/or family/caregi crow and hta-ipgy-tz-f shantell time I personally spent is 120 minutes. [email or web address] Not available 10/19/2024 17:04:21 Plan of Treatment Reminders Order Date Submit Date Provider Last Modified By Organization Details Last Modified Time Details Appointments hospital follow up 2024 03:00P M BARNEY HENDERSON Not available Not available Not available Nurse Visit 2024 01:00P M [facility] Staff Not available Not available Not available Follow Up 2024 01:50P M BARNEY HENDERSON Not available Not available Not available Follow Up 2024 02:30P M BARNEY HENDERSON Not available Not available Not available Lab venipunct ure 2024 025 [email or web address] [facility] (Registration ), [facility] , [place], [address], 10/19/2024 16:45:03 Referral nephrolog ist referral - thank you for agreeing to see her soon. labs and renal u/s have been ordered and hope to have results to you soon. new dx stage 5 CKD. 2024 025 [email or web address] Azul Fam MD, [address] [place], [address], 10/19/2024 17:04:04 Procedures None recorded. Surgeries None recorded. Imaging US, kidney - CHELSEA; pt with stage 5 CKD, need to prepare for possible dialysis. cc results to Dr. Fam, [facility] nephrolog y 2024 025 [facility] - Radiology, [address] [place] [address], [address], 10/19/2024 16:10:29 Medication Orders None recorded. Patient TargetsNo targets recorded. Patient Instructions Encounter Date Encounter Id Patient Instructions Last Modified By Organization Details Last Modified Time 10/19/2024 [id number] Dear Lea, Thank you for coming in today for your follow-up visit. I appreciate your dedication to managing your health, especially after your recent hospitalization for acute renal failure. Here is a summary of the prado instructions we discussed today: - Medications: - Resume Valsartan and Hydrochlorothiazide as previously prescribed, unless otherwise directed. - Metformin will remain on hold until further evaluation of your kidney function. - Adjust your long-acting insulin dosage back to 20 units, as modified in the hospital. - Complete the course of Ceftriaxone as prescribed to address your urinary tract infection. - Follow-Up Care: - Schedule a follow-up appointment in two weeks to reassess your kidney function and overall health status. - We will monitor your anemia associated with chronic kidney disease and consider appropriate treatment options. - Health Monitoring: - Continue monitoring your blood pressure regularly and aim to keep it under control. - Lifestyle and Behavioral Advice: - Please continue to monitor your diet and fluid intake, focusing on managing your diabetes and hypertension effectively. If you have any questions or concerns about your treatment plan, do not hesitate to contact our office. Best regards, Barney Henderson MD Family Medicine [email or web address] Not available 10/19/2024 15:22:00 Reason for Referral Groundman/Lineman Referral for Re nal failure syndrome thank you for agreeing to see her soon. labs and renal u/s have been ordered and hope to have results to you soon. new dx stage 5 CKD. Referring Physician: Barney Henderson Family [facility], Encounter Date: 10/19/2024 Results Created Date Observation Date Name Description Value Unit Range Abnormal Flag Note LastModifiedBy Organization Detail LastModifiedTime 10/07/20 24 10/07/2024 CT ABD pelvi s wo IV or oral contr ast [facility] OGY Jeff Mchugh [id number] RADIOL OGY TRANSC RIPTIO N REPORT _ Patien t Name: ERROL RUTH MS MRN: Sex: : Age: [id number] F [id number] Accoun t: Access ion: Admit: StayTy pe: [id number] 2023 E Ammon d: Order ID: Submit curtis: Orderi ng Provid er: 2023 14:14 [id number] CAROLINA MCINTOSH curtis: Techno logist : Result ed: 2023 14:20 DOTTIE 2023 15:51 _ EXAMIN ATION: CT ABD PELVIS WO IV OR ORAL CONTRA ST CLINIC AL HISTOR Y: Reason for Abdome n: renal failur e Add'l Info: TECHNI QUE: Helica l CT of the abdome n and pelvis withou t intrav enous contra st. Oral contra st was not admini stered . Multip lanar reform atted images were genera curtis. COMPAR GHASSAN: None FINDIN GS: Lower chest: There is a 0.4 cm periph eral nodule in the left lower lobe that the appear ance most sugges tive of an intrap ulmona ry lymph node. Mild mitral valve calcif icatio n. Liver: Severa l small calcif ied granul omas are presen t. Charly 's lobe config uratio n. Bile ducts: Pneumo bilia. No ductal dilata tion. Gallbl adder: Surgic ally absent . Pancre as: Fatty atroph y of the pancre atic head. Spleen : Calcif ied spleni c granul omas. Adrena ls: There is a right- sided 3.0 cm hypoat tenuat ing adrena l nodule (-13 HU) and a left-s ided 0.9 cm hypoat tenuat ing adrena l nodule (-10 HU). Kidney s: The kidney s are normal in size. No parenc hymal lesion is seen in this noncon trast study. There is no collec ting system dilata tion. A small nonobs tructi ng calcif ied stone is seen in the left sided lower pole calyx. Urinar y Bladde r: The bladde r wall is normal . No stones or fillin g defect s are seen. Vascul ature: No aortic aneury sm. The left renal artery is ectati c. There is mild athero sclero tic calcif icatio n in the aorta and right common iliac artery . Lymph Nodes: Promin ent lymph nodes can be seen in the portac aval space and in the retrop eriton eum. A 1.1 cm left para-a ortic lymph node is presen t. Gastro intest inal tract: Nondil ated, no wall thicke lynnette. The append ix is visual ized and is normal . Perito neum and retrop eriton eum: No free fluid. No pneumo perito neum. No locula curtis fluid collec tion or mesent rom inflam mation . Abdomi nal wall: There is a small fat-co ntaini ng umbili ting hernia . A fat-co ntaini ng ventra l hernia is presen t superi or to the umbili cus. The rectus muscul ature is diasta tic. Reprod uctive organs : No signif icant findin gs. Osseou s struct ures: No acute osseou s pathol ogy. Degene rative disc diseas e most notabl y at L4-L5 and L5-S1. IMPRES KEVON: 1. No acute pathol ogy. 2. Pneumo bilia is presen t. Please correl ate with the histor y of prior sphinc teroto my. 3. Bilate ral adrena l adenom as. 4. Promin ent retrop eriton eal lymph nodes are uncert ain etiolo gy, possib ly reacti ve. Thank you for lettin g us partic ipate in the care of this patien t. If you are a health care [facility] er and have any questi ons regard ing this report , please contac t the number below. For patien ts who have questi ons please contac t the health care profes sional that reques curtis your imagin g first. Electr onical ly signed by: Júnior Vick MD Radiol jimmy Adams olive ([phone]), at 2023 3:51 PM INTERFACE [facility] (Lab) [address] [place] [address], [id number], 10/07/2024 15:57:10 Result Notes None recorded. Problems Name Problem SNOMED Code Status Onset Date Resolution Date Notes Provider Name and Address Organization Details Recorded Time Complica tion due to diabetes mellitus 63912400 Active [address], [place], [address] , [facility] 4 14:41:01 Gastroes ophageal reflux disease without esophagi tis 550118553 Active [address], [place], [address] , [facility] 4 15:41:02 Sleep apnea 63084951 Active [address], [place], [address] , [facility] 4 15:41:33 Dyspnea on exertion 70116272 Active [address], [place], [address] , [facility] 16:02:44 Smoker 37296594 Active [address], [facility] [address] , [facility] 4 16:03:44 Legal blindnes s 94408580 Active [address], [place] [address] , [facility] 16:04:00 Toenail thickene d 777561915 Active [address], [place] [address] , [facility] 16:07:44 Pruritic rash 85074152 Active [address], [place] [address] , [facility] 4 16:09:31 Retroper itoneal lymphade nopathy 218527359 Active 2023 jelena rivera, [facility] 5 12:10:08 Renal failure syndrome 03257085 Active 2023 jelena rivera, [facility] 5 12:10:41 Acute exacerba tion of chronic obstruct vishnu pulmonar y disease 827855553 Active [address], [place], [address] , [facility] 5 15:11:03 Acute renal insuffic iency 509060505 Active [address], [facility] [address] , [facility] 5 16:57:59 Essentia l hyperten kevon 90748941 Active 2005 [facility] 4 09:53:15 Hyperlip idemia 91675198 Active 2005 [facility] 4 10:08:20 Uncompli cated moderate persiste nt asthma 922479723 Active 2005 [facility] 4 10:24:46 Severe obesity 94657785523 104 Active 2005 [facility] 4 10:22:09 Chronic hepatiti s C 331922800 Active 2003 pos viral load not treated [facility] 4 09:47:44 Pain of right shoulder joint 43837685536 264173 Active 2014 [facility] 4 10:17:43 Neuropat hy due to type 2 diabetes mellitus 01307231662 9106 Active 2014 uncontro lled, w/neurol o comps [facility] 4 10:17:28 Idiopath ic osteoart hritis 411329774 Active 2014 DJD, knees, bilatera l [facility] 4 10:08:49 Renal disorder due to type 2 diabetes mellitus 192401703 Active 2015 Diabetic nephropa thy [facility] 4 10:21:57 Derangem ent of right knee 70567327949 594786 Completed 201505/05/2016 Problem Code: M23.91; Problem Code Type: ICD-10; Not Available [facility] 3 04:12:16 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 54655025141 9104 Active 2015 (not billable after 6) [facility] 4 10:16:21 Cocaine abuse 33700564 Active 2016 episodic [facility] 4 09:50:22 Tobacco use cessatio n educatio n Active 2016 [facility] 4 10:22:41 Gallblad mark calculus with acute cholecys titis and no obstruct ion 658049625 Completed 201612/29/2016 Problem Code: K80.00; Problem Code Type: ICD-10; Not Available [facility] 3 04:12:17 Acute asthma 276894946 Completed 201604/13/2017 Problem Code: J45.901; Problem Code Type: ICD-10; Not Available [facility] 3 04:12:17 Cellulit is 770697023 Completed 201607/16/2017 Problem Code: L03.90; Problem Code Type: ICD-10; Not Available [facility] 3 04:12:17 Atopic dermatit is 72849327 Active 2017 [facility] 4 09:45:01 Impetigo 56529376 Completed 201705/03/2018 Problem Code: L01.00; Problem Code Type: ICD-10; Not Available [facility] 3 04:12:17 Screenin g mammogra phy Completed 201804/20/2019 Problem Code: Z12.31; Problem Code Type: ICD-10; Not Available [facility] 3 04:12:18 History of diabetic foot ulcer 45908112869 402986 Active 2018 [facility] 4 10:01:51 Chronic obstruct vishnu pulmonar y disease 00441983 Active 2018 Asthma with COPD [facility] 4 09:48:31 Anemia 801009695 Active 2018 [facility] 4 09:39:01 Albumin level - finding 462039337 Active 2018 decrease d [facility] 4 09:37:16 Peripher al venous insuffic iency 81573934 Active 2018 Stasis ulcer [facility] 4 10:18:18 Cough 81554505 Completed 201908/22/2020 Problem Code: R05; Problem Code Type: ICD-10; Not Available [facility] 3 04:12:19 Endocrin e/metabo lic screenin g Completed 202012/28/2020 Problem Code: Z13.29; Problem Code Type: ICD-10; Not Available [facility] 3 04:12:19 Counseli ng Active 2020 Immuniza tion counseli ng [facility] 4 09:51:24 Generali zed anxiety disorder 94160698 Active 2020 [facility] 4 10:01:19 Vomiting 462280600 Completed 202006/26/2021 Problem Code: R11.10; Problem Code Type: ICD-10; Not Available [facility] 3 04:12:19 Insect bite Completed 202007/09/2021 Not Available [facility] 3 04:12:20 Cirrhosi s of liver 47478301 Active 2022 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 4 10:16:46 Opioid abuse 9226722 Completed 202209/28/2023 Problem Code: F11.10; Problem Code Type: ICD-10; Not Available [facility] 4 05:34:22 Lichen simplex chronicu s 16973257 Active 2022 Neuroder matitis [facility] 4 10:10:12 History of osteomye litis 345183169 Active 2022 [facility] 4 10:05:22 Opioid abuse 1296550 Completed 201807/14/2023 03/04/20 21 - Comments only - Barney Henderson MD - offered scg for OBT but she states she plans to try to establis h tx thru [facility]. Not interest ed in Suboxone or Vivitrol ; might be interest ed in Sublocad e. Problem Code: F11.10; Problem Code Type: ICD-10; Not Available [facility] 3 04:12:22 Cholelit hiasis without obstruct ion 06745381 Completed 201512/22/2016 Problem Code: K80.20; Problem Code Type: ICD-10; Not Available [facility] 3 04:12:22 Candidia sis of vagina 36526720 Completed 201503/27/2016 Problem Code: B37.3; Problem Code Type: ICD-10; Not Available [facility] 3 04:12:23 Traumati c or non-trau matic injury 637625193 Completed 201607/14/2023 Problem Code: T14.8; Problem Code Type: ICD-10; Not Available [facility] 3 04:12:23 Disorder of teeth AND/OR supporti ng structur es 420457552 Completed 201503/17/2016 Problem Code: K08.8; Problem Code Type: ICD-10; Not Available [facility] 3 04:12:23 Uncompli cated asthma 639727090 Completed 200507/14/2023 Problem Code: J45.909; Problem Code Type: ICD-10; Not Available [facility] 3 04:12:23 Hyperten sive disorder 46280946 Completed 200507/14/2023 Not Available [facility] 3 04:12:24 Scar conditio ns and fibrosis of skin 410410663 Completed 201604/23/2017 Problem Code: L90.5; Problem Code Type: ICD-10; Not Available [facility] 3 04:12:24 Human papillom a virus infectio n 817579453 Completed 201607/14/2023 Problem Code: B97.7; Problem Code Type: ICD-10; Not Available [facility] 3 04:12:24 Morbid obesity 261171361 Completed 200507/14/2023 Not Available [facility] 3 04:12:24 Foot ulcer due to type 2 diabetes mellitus 26146385132 00 Completed 201512/22/2016 01/20/20 19 - Comments only - Barney Henderson MD - With infectio n that apparent ly extends to the bone. Plain films yesterda y reported ly did not show clear evidence of osteomye litis, but she clearly has associat ed cellulit is and is at risk for loss of 1 or more digits, as well as potentia l sepsis and life-thr eatening infectio n. Advised hospital evaluati on and probable admissio n for IV antibiot ics and surgical debridem ent. She agreed to this plan. Wound gently irrigate d and dressed with sterile gauze dressing . Problem Code: E11.621; Problem Code Type: ICD-10; Kristie rivera [facility] 4 09:59:50 Periapic al abscess 850302106 Completed 201403/17/2016 Problem Code: K04.7; Problem Code Type: ICD-10; Not Available [facility] 3 04:12:25 Drug abuse 79839541 Completed 200707/14/2023 Problem Code: 305.90; Problem Code Type: ICD-9; Not Available [facility] 3 04:12:25 Opioid dependen ce in remissio n 939252584 Completed 201807/14/2023 09/26/20 19 - Comments only - Barney Henderson MD - With comorbid depressi on and multiple chronic comorbid ities contribu ting to recent relapses . She expresse d that she feels like a failure and that she is let her family down. Was not willing to consider counseli ng. Brief SC provided at this visit. Problem Code: F11.21; Problem Code Type: ICD-10; Not Available [facility] 3 04:12:25 Gynecolo gic examinat ion Completed 201602/02/2017 Problem Code: Z01.419; Problem Code Type: ICD-10; Not Available [facility] 3 04:12:26 Nodule on toe 856367395 Completed 201605/25/2019 Not Available [facility] 3 04:12:26 Pain of right knee joint 15747523505 4100 Completed 201502/02/2017 Problem Code: M25.561; Problem Code Type: ICD-10; Not Available [facility] 3 04:12:26 Candidia sis of skin 32241489 Completed 201503/27/2016 Problem Code: B37.2; Problem Code Type: ICD-10; Not Available [facility] 3 04:12:26 Dysuria 37479040 Completed 201505/07/2016 Problem Code: R30.0; Problem Code Type: ICD-10; Not Available [facility] 3 04:12:27 Retinopa thy due to type 2 diabetes mellitus 330399545 Completed 201507/14/2023 Problem Code: E11.319; Problem Code Type: ICD-10; Not Available [facility] 3 04:12:27 Infectio n of skin and/or subcutan eous tissue 13184320 Completed 202204/30/2023 Problem Code: L08.89; Problem Code Type: ICD-10; Not Available [facility] 3 04:12:27 Tobacco dependen ce caused by cigarett es 80790484258 807186 Completed 200305/25/2019 Problem Code: F17.210; Problem Code Type: ICD-10; Not Available [facility] 3 04:12:27 Opioid dependen ce 08001543 Completed 200309/04/2015 05/25/20 19 - Comments only - Alexandroyocasta Grewal - [facility]. Problem Code: F11.20; Problem Code Type: ICD-10; Not Available [facility] 3 04:12:28 Asthma 311620986 Completed 200507/14/2023 Not Available [facility] 3 04:12:28 Pain of joint of knee 7825907129 Completed 201407/14/2023 Problem Code: M25.569; Problem Code Type: ICD-10; Not Available [facility] 3 04:12:28 Cellulit is of right lower limb 84591822756 664514 Completed 201805/25/2019 Problem Code: L03.115; Problem Code Type: ICD-10; Not Available [facility] 3 04:12:28 Shoulder joint pain 894039183 Completed 201407/14/2023 Problem Code: 719.41; Problem Code Type: ICD-9; Not Available [facility] 3 04:12:29 Smoker 09572940 Completed 200307/14/[address], [place], [address] , [facility] 4 16:03:44 Chronic ulcer of foot 432374858 Completed 201601/05/2017 Problem Code: L97.529; Problem Code Type: ICD-10; Not Available [facility] 3 04:12:29 Type 2 diabetes mellitus without complica tion 994229639 Completed 200307/14/2023 Problem Code: 250.00; Problem Code Type: ICD-9; MD Shailesh [address], [place], [address] , [facility] 4 14:43:16 Pain of left knee joint 80719830121 4107 Completed 201407/14/2023 Problem Code: M25.562; Problem Code Type: ICD-10; Not Available [facility] 3 04:12:30 Depressi ve disorder 20277544 Completed 200307/14/2023 BARNEY HENDERSON MD [address], [facility] [address] [facility] 4 14:41:17 Hypergly cemia due to type 2 diabetes mellitus 47390915729 9109 Completed 200309/04/2015 Problem Code: E11.65; Problem Code Type: ICD-10; Not Available [facility] 3 04:12:30 Chest pain 20050908 Completed 201605/25/2019 Problem Code: R07.89; Problem Code Type: ICD-10; Not Available [facility] 3 04:12:31 Drug dependen ce 790597021 Completed 200307/14/2023 Problem Code: 304; Problem Code Type: ICD-9; Not Available [facility] 3 04:12:31 Cellulit is of toe of right foot 42426438996 603766 Completed 201505/11/2016 Problem Code: L03.031; Problem Code Type: ICD-10; Not Available [facility] 3 04:12:31 Osteoart hritis of knee 298131693 Completed 201402/02/2017 Problem Code: M17.9; Problem Code Type: ICD-10; Not Available [facility] 3 04:12:32 History of infectio us disease 011855222 Completed 201409/04/2015 Problem Code: Z86.19; Problem Code Type: ICD-10; [facility] 4 10:05:01 Tobacco user 318493191 Completed 200508/06/2015 Not Available [facility] 3 04:12:32 Viral screenin g Completed 202209/10/2023 Problem Code: Z11.52; Problem Code Type: ICD-10; Not Available [facility] 4 05:34:15 Acute upper respirat ory infectio n 36934133 Completed 202208/18/2023 Problem Code: J06.9; Problem Code Type: ICD-10; Not Available [facility] 4 05:34:15 Type 2 diabetes mellitus without complica tion 699683138 Completed 202309/01/2024 Problem Code: 250.00; Problem Code Type: ICD-9; BARNEY HENDERSON MD [address], [facility] [address] , [facility] 14:43:16 Asthma-c hronic obstruct vishnu pulmonar y disease overlap syndrome 08993617870 391384 Active 2023 [facility] 09:39:21 Decompen sated cirrhosi s of liver 431497317 Active 2023 Child Bourgeois score 8/Class B as of 12/2022 [facility] 4 09:51:34 Visual impairme nt 295437557 Active 2023 [facility], [facility] 4 10:29:20 Thickene d nails 024876148 Active 2023 [facility], [facility] 4 10:22:14 Thickeni ng of skin 34610981 Completed 202309/01/2024 BARNEY HENDERSON MD [address], [place], [address] , [facility] 4 14:43:15 Acquired hammer toes of bilatera l feet 46412280558 347614 Active 2023 Kristie Fran [facility], [facility] 4 09:37:02 History of amputati on of right foot 08701553616 603521 Active 2023 [facility] 4 10:01:25 Combined form of senile cataract 62241984 Active 2023 [facility] 4 09:50:32 Unintent ional weight loss 146811102 Active 2022 [facility] 4 10:24:46 History of amputati on of lesser toe 334125553 Active 2022 [facility] 4 09:38:36 History of intraven ous drug abuse 45715206727 331777 Active 2007 heroin [facility] 4 09:40:14 Left ventricu lar hypertro phy 19203847 Active 2015 mild concentr ic 3/16 echo (nl EF) [facility] 4 09:47:08 Follicul itis 15289380 Active 2022 [facility] 4 09:52:22 Peripher al edema 721213355 Active 2014 [facility] 4 09:52:55 Mild persiste nt asthma 799840135 Active 2022 with acute exacerba tion [facility] 4 09:54:28 Family history of Alzheime r's disease 274423221 Active 2018 mother age 50, maternal grandmot her, maternal aunts and uncles; no genetic testing done [facility] 4 09:56:26 Diabetic foot ulcer 616978578 Active 2022 [facility] 4 09:59:46 History of cholecys tectomy 237767522 Active 2016 laparosc opic, 01/01 [facility] 4 10:00:55 History of human papillom a virus infectio n 71314944938 9102 Active 01/01; nl pap; neg colpo 04/03 incl ECC; neg pap 11/05; 5 yr f/u [facility] 4 10:04:56 History of opioid abuse 73221179936 9100 Active 2018 Hx of opioid abuse -- Saveda resumed suboxone 09/07 [facility] 4 10:08:01 Edentulo 993808802 Active 2015 s/p complete extr due to advanced caries 03/02 [facility] 4 10:13:37 Major depressi ve disorder 945404914 Active 2022 Major depressi on [facility] 4 10:15:28 Traumati c partial amputati on of right great toe Active 2018 initial encounte r [facility] 4 10:23:54 Stasis dermatit is 85270840 Active 2021 Venous stasis dermatit is [facility] 4 10:30:44 Diabetes mellitus 53617611 Completed 202309/01/[address], [place], [address] , [facility] 4 14:43:16 Type 2 diabetes mellitus 10373039 Completed 202309/01/[address], [place], [address] , [facility] 4 14:43:16 Obesity 940829229 Active [address], [place], [address] , [facility] 4 20:58:25 Hemoglob in A1c greater than 9% indicati ng poor diabetic control 39098481871 4104 Completed 202309/01/[address], [facility] [address] , [facility] 4 14:43:16 Problem Notes None recorded. Medical Equipment None Reported. Allergies Allergen ID Allergen Name Allergen Category Reaction Reaction Severity Criticality Documentation Date Start Date Code Code System Note Provider Name and Address Organization Details Recorded Time 35769 lisinopri l medicatio n cough moderate Not available 08/27/20232009 35099 RxNorm [facility] 4 10:31:16 78414 metoprolo l succinate medicatio n other moderate Not available 08/27/20232018 56792 4 RxNorm No react ion enter ed [facility] 4 10:31:36 36868 codeine medicatio n hives moderate Not available 08/27/20232002 2670 RxNorm [facility] 4 10:31:10 Medications Name Sig Start Date Stop Date Status Note LastModified by Organization Details LastModified Time Singulair 10 mg tablet 1 TAB QD 05/15 completed Not Available Not Available Not Available furosemid e 40 mg tablet Take 1 tablet by mouth once a day as needed 04/12 completed Not Available Not Available Not Available Miralax 17 gram/dose oral powder Take 17 gram by mouth once a day as needed 2015 active Not Available Not Available Not Avai lable atorvasta tin 40 mg tablet TAKE ONE TABLET BY MOUTH EVERY DAY active Not Available Not Available No t Available Senokot S 50 mg-8.6 mg tablet 1 bid 05/15 completed Not Available Not Available Not Available metformin 500 mg tablet Take 1 tablet 4 times a day by oral route. 09/01 completed Not Available Not Available Not Available Colace 100 mg capsule 1 capsule twice a day as needed 09/01 completed Not Available Not Available Not Available atorvasta tin 20 mg tablet Take 1 tablet by mouth once a day 10/15 completed Not Available Not Available Not Available Effexor XR 75 mg capsule,e xtended release 1CAP daily 05/15 completed Not Available Not Available Not Available clindamyc in HCl 300 mg capsule 1TAB four times daily 02/18 completed Not Available Not Available Not Available Glucagon Emergency Kit 1 mg solution for injection active Not Available Not Available No t Available amitripty line 75 mg tablet Take 2 tablet by mouth every night 03/11 completed Not Available Not Available Not Available methadone 10 mg tablet daily dose is 130mg 2022 active Per Pt states she takes 1mg daily through [facility] Not Available Not Available Not Available Nicorette 2 mg gum 1TAB up to 10 times daily 05/28 completed Not Available Not Available Not Available prednison e 20 mg tablet 2 tabs daily x 5 days 04/04 completed Not Available Not Available Not Available Lantus U-100 Insulin 100 unit/mL subcutane ous solution Inject 150 unit subcutan eously twice a day as directed INJECT 150U TWICE DAILY, if BLOOD GLUCOSE less than 70 decrease Lantus to 100U 06/25 completed Not Available Not Available Not Available Diflucan 150 mg tablet Take 1 tablet by mouth single dose 03/04 completed Not Available Not Available Not Available Accu-Chek Softclix Lancets 1 lancet as directed three times a day . Use one lancet three times daily to check blood sugar 2022 active Not Available Not Available Not Avai lable valsartan 80 mg tablet 1CAP daily 2014 active Not Available Not Available Not Avai lable penicilli n V potassium 500 mg tablet Take 1 by mouth twice daily 10/26 completed Not Available Not Available Not Available melatonin 3 mg tablet Take 3 tablet every night as directed 2023 active Not Available Not Available Not Avai lable amlodipin e 5 mg tablet TAKE ONE TABLET BY MOUTH EVERY DAY active Not Available Not Available No t Available omeprazol e 40 mg capsule,d elayed release TAKE ONE CAPSULE BY MOUTH EVERY DAY active Not Available Not Available No t Available amitripty line 50 mg tablet 1CAP at bedtime 06/21 completed Not Available Not Available Not Available valsartan 80 mg-hydroc hlorothia zide 12.5 mg tablet take 1 tablet per day 10/04 completed Not Available Not Available Not Available Miconazol e-7 2 % vaginal cream apply as directed 2018 active Not Available Not Available Not Avai lable amoxicill in 875 mg tablet take 1 tablet every 12 hours 07/31 completed Not Available Not Available Not Available amitripty line 25 mg tablet TAKE TWO TABLETS BY MOUTH EVERY EVENING active Not Available Not Available No t Available cephalexi n 500 mg capsule TAKE 1 CAPSULE BY MOUTH FOUR TIMES DAILY 11/03 completed Not Available Not Available Not Available metformin 1,000 mg tablet take 1 tablet by mouth twice a day 2017 active Not Available Not Available Not Avai lable buspirone 10 mg tablet 1 bid 12/30 completed Not Available Not Available Not Available Diovan HCT 160 mg-12.5 mg tablet take 2 tabs daily 04/19 completed Not Available Not Available Not Available Xopenex 1.25 mg/3 mL solution for nebulizat ion Inhale contents of 1 ampule via nebulize r every 6 hours as needed 2014 active Not Available Not Available Not Avai lable Advair Diskus 500 mcg-50 mcg/dose powder for inhalatio n Inhale 1 puff by mouth twice daily 2012 active Not Available Not Available Not Avai lable betametha sone dipropion ate 0.05 % topical cream Apply twice a day as directed 03/04 completed Not Available Not Available Not Available gabapenti n 300 mg capsule 3 tabs three times a day 02/17 completed Not Available Not Available Not Available cephalexi n 500 mg tablet Take 1 tablet by mouth four times a day 01/29 completed Not Available Not Available Not Available aspirin 81 mg tablet 1 tablet once a day as directed 02/21 completed Not Available Not Available Not Available furosemid e 20 mg tablet 1CAP daily 02/18 completed Not Available Not Available Not Available metoprolo l succinate ER 25 mg tablet,ex tended release 24 hr Take 1 tab by mouth daily 02/17 completed Not Available Not Available Not Available Novolog U-100 Insulin aspart 100 unit/mL subcutane ous solution Inject subcutan eously three times a day as directed Test three times daily BS 100-200 - 10 units 200-300 - 20 units 300 and above 30 units. 06/22 completed Not Available Not Available Not Available nystatin 100,000 unit/gram topical powder Apply three times a day 03/04 completed Not Available Not Available Not Available ibuprofen 600 mg tablet Take 1 tablet by mouth three times a day as needed 11/04 completed Not Available Not Available Not Available fluocinon pati 0.05 % topical solution apply to R ear bid prn itching/ pain 05/06 completed Not Available Not Available Not Available Cipro 250 mg tablet 1 bid 06/18 completed Not Available Not Available Not Available metformin ER 500 mg tablet,ex tended release 24 hr TAKE ONE TABLET BY MOUTH FOUR TIMES A DAY 10/11 completed [email or web address] d/c Not Available Not Available Not Available Actos 30 mg tablet Take 1 by mouth daily 09/18 completed Not Available Not Available Not Available Diovan HCT 160 mg-25 mg tablet 1 tab qd 2014 active Not Available Not Available Not Avai lable Bactrim DS 800 mg-160 mg tablet Take 1 tab by mouth twice daily 03/07 completed Not Available Not Available Not Available Adult Low Dose Aspirin 81 mg tablet,de layed release Take 1 tablet by mouth once a day as directed 2022 active Not Available Not Available Not Avai lable Vitamin D 50,000 unit capsule 1 weekly 05/15 completed Not Available Not Available Not Available Test Strips test 3-5 06/04 completed Not Available Not Available Not Available Mucinex 600 mg tablet, extended release Take 1 tablet by mouth twice a day as needed 2018 active Not Available Not Available Not Avai lable escitalop karlo 10 mg tablet TAKE TWO TABLET BY MOUTH EVERY DAY active Not Available Not Available No t Available Novolog FlexPen U-100 Insulin aspart 100 unit/mL (3 mL) subcutane ous 1 pen injector subcutan eously three times a day Test three times daily BS 100-200 - 10 units 200-300 - 20 units 300 and above 30 units. 10/06 completed PA Denied and WILBERTO removed from list Not Available Not Available Not Available Prilosec OTC 20 mg tablet,de layed release 1 qd 05/15 completed Not Available Not Available Not Available Wellbutri n XL 150 mg 24 hr tablet, extended release Take 1 tablet by mouth once a day 11/04 completed Not Available Not Available Not Available Wellbutri n XL 300 mg 24 hr tablet, extended release Take 1 tablet by mouth once a day 03/04 completed Not Available Not Available Not Available Compressi on Stockings Dx: peripher al edema 11/04 completed [place] [facility] Not Available Not Available Not Available gabapenti n 300 mg tablet 3 cap three times daily 06/16 completed Not Available Not Available Not Available albuterol 2INH four times daily 07/31 completed Not Available Not Available Not Available Nystatin (Topical) cream apply BID 05/28 completed Not Available Not Available Not Available Nebulizer Dx: Asthma J45.40 Smoking Z71.6 2018 active [facility] in [place] Not Available Not Available Not Available Humalog U-100 Insulin 10 units twice daily 02/01 completed Not Available Not Available Not Available insulin syringes (disposab le) 06/16 completed Not Available Not Available Not Available Xopenex 2INH four times daily 05/28 completed Not Available Not Available Not Available Lantus U-100 Insulin injectio n BID 05/28 completed Not Available Not Available Not Available Novolog U-100 Insulin aspart inj uad 05/10 completed Not Available Not Available Not Available valsartan 320 mg-hydroc hlorothia zide 25 mg tablet TAKE ONE TABLET BY MOUTH ONCE DAILY 10/19 completed [email or web address] d/c Not Available Not Available Not Available BD Ultra-Fin e Short Pen Needle 31 gauge x 5/16 Use to inject subcutan eously three times daily active Not Available Not Available No t Available ProAir HFA 90 mcg/actua tion aerosol inhaler 2 puff using inhaler every four to six hours as needed 01/03 completed Not Available Not Available Not Available Januvia 100 mg tablet 1 tablet by mouth once a day 11/04 completed Not Available Not Available Not Available NovoFine 30 30 gauge x 1/3 needle inj sc TID prn 2013 active Not Available Not Available Not Avai lable Brovana 15 mcg/2 mL solution for nebulizat ion Inhale 15 mcg twice a day 11/04 completed (long acting bronchod ilator) Not Available Not Available Not Available Pen Needle 31 gauge x 3/16 for use with toujeo 01/05 completed Not Available Not Available Not Available OneTouch Delica Lancets 33 gauge Use 1 lancet as directed three times a day 05/20 completed Not Available Not Available Not Available Dulera 100 mcg-5 mcg/actua tion HFA aerosol inhaler INHALE 2 PUFFS BY MOUTH TWICE DAILY. MAY USE UP TO 4 TIMES PER DAY NEEDED FOR COUGH / WHEEZING / SHORTNES S OF BREATH 11/03 completed stopped and started Breo Ellipta inhaler Not Available Not Available Not Available Suboxone 8 mg-2 mg sublingua l film Take 2.5 strip under tongue once a day 03/04 completed Dose change to 18mg q day per [facility] 04/12/19; 20mg as of 03/2020 Not Available Not Available Not Available Suboxone 2 mg-0.5 mg sublingua l film Take 2 film sublingu ally once daily 05/08 completed Per [facility] 04/12/19, total daily dose increase d to 20mg Not Available Not Available Not Available OneTouch Delica Lancets 30 gauge Test Blood Glucose 4 times daily and as needed 2016 active Not Available Not Available Not Avai lable BD Insulin Syringe Ultra-Fin e 1 mL 31 gauge x /16 Use 1 syringe as directed four times a day as needed 07/02 completed Not Available Not Available Not Available BD Insulin Syringe Ultra-Fin e 0.5 mL 31 gauge x 5/16 active Not Available Not Available Not Available pen needle, diabetic 33 gauge x 1/4 1 needle subcutan eously three times a day 09/01 completed Not Available Not Available Not Available Trulicity 1.5 mg/0.5 mL subcutane ous pen injector Inject 1.5 mg subcutan eously once a week 11/04 completed Not Available Not Available Not Available Trulicity 0.75 mg/0.5 mL subcutane ous pen injector Inject 0.75 mg subcutan eously once a week 11/11 completed Not Available Not Available Not Available [place] SoloStar U-300 Insulin 300 unit/mL (1.5 mL) subcutane ous pen inject 200U TID 07/21 completed Not Available Not Available Not Available Breo Ellipta 200 mcg-25 mcg/dose powder for inhalatio n Inhale 1 puff by mouth once a day active Not Available Not Available No t Available Tresiba FlexTouch U-200 insulin 200 unit/mL (3 mL) subcutane ous pen Inject 40 units subcutan eously twice a day. 10/19 completed jelena d/c Not Available Not Available Not Available Accu-Chek Guide test strips 1 strip via meter three times a day . Check blood sugar three times daily. 2023 active Not Available Not Available Not Avai lable Accu-Chek Guide Glucose Meter USE 1 UNIT DIRECTED active Not Available Not Available No t Available BD Veo Insulin Syringe Ultra-Fin e 1 mL 31 gauge x USE DIRECTED FOUR TIMES DAILY NEEDED 11/03 completed pt reports no longer uses. Not Available Not Available Not Available Glucagon (HCl) Emergency Kit 1 mg solution for injection Take 1 mg by injectio n route as needed. 2023 active Not Available Not Available Not Avai lable Trelegy Ellipta 200 mcg-62.5 mcg-25 mcg powder for inhalatio n Inhale 1 puff every day by inhalati on route, for COPD. active Per [facility], Pt will have $4.63/mo nth copay. Pt aware. Not Available Not Available Not Available Vitals Date Recorded Body height Body mass index (BMI) Body weight Body temperature Oxygen saturation Oxygen saturation in Arterial blood by Pulse oximetry Heart rate Systolic blood pressure Diastolic blood pressure Provider Name and Address Organization Details Last Updated DateTime 155.58 cm 36.9 kg/m2 55422.7 g 97.7 [degF] 91 % 91 % 104 /min 178 mm[Hg] 82 mm[Hg] ARMIDA HIRSCH MA [facility] 14:46:25 Date Recorded Body height Provider Name an d Address Organization Details Last Updated DateTime 10/19/2024 155.58 cm Alexa Sorto LPN [facility] 10/19/2024 15:34:50 Date Recorded Systolic blood pressure Diastolic blood pressure Provider Name and Address Organization Details Last Updated DateTime 10/19/2024 158 mm[Hg] 82 mm[Hg] BARNEY HENDERSON MD [address], [place], [address], [facility] 10/19/2024 16:50:46 Social History Question Answer Notes LastModified by Organizat ion Details LastModified Time Tobacco Smoking Status Current Every Day Smoker SURJIT KITCHEN LPN null, [facility] 11/03/2023 13:42:55 Date Of Most Recent HSA 10/06/2024 [email or web address] Information not available 10/06/2024 Would You Say That, In General, Your Health Is Poor [email or web address] Information not available 10/06/2024 Women Aged 18-50 - Would You Like To Become In The Next Year? (Female Patients Only) No [email or web address] Information not available 10/06/2024 How Often Does Anyone, Including Family, Physically Hurt You? Never [email or web address] Information not available 10/06/2024 How Often Does Anyone, Including Family, Insult Or Talk Down To You? Never [email or web address] Information no t available 10/06/2024 How Often Does Anyone, Including Family, Threaten You With Harm? Never Information not available 10/06/2024 How Often Does Anyone, Including Family, Scream Or Curse At You? Never [email or web address] Information not available 10/06/2024 Within The Past 12 Months, You Worried That Your Food Would Run Out Before You Got Money To Buy More. Sometimes True [email or web address] Information not available 10/06/2024 Within The Past 12 Months, The Food You Bought Just Didn't Last And You Didn't Have Money To Get More. Sometimes True [email or web address] Information not available 10/06/2024 How Hard Is It For You To Pay For The Very Basics Like Food, Housing, Medical Care, And Heating? Would You Say It Is: Very Hard [email or web address] Information not available 10/06/2024 In The Past 12 Months, Has Lack Of Reliable Transportation Kept You From Medical Appointments, Meetings, Work Or From Getting Things Needed For Daily Living? Yes Information not available 10/06/2024 What Is Your Housing Situation Today? I Have Housing. [email or web address] Information not available 10/06/2024 How Often In The Past Year Have You Used Marijuana (including Smoking, Vaping, Dabbing, Or Edibles)? Never [email or web address] Information not available 10/06/2024 How Often In The Past Year Have You Used Prescription Medications That Were Not Prescribed To You? Never [email or web address] Information not available 10/06/2024 How Often In The Past Year Have You Taken Your Own Prescription Medication More Than The Way It Was Prescribed Or For Different Reasons Than Its Intended Purpose? Never [email or web address] Information no t available 10/06/2024 How Often In The Past Year Have You Used Other Drugs (for Example, Heroin, Cocaine, Meth, Salvia, Inhalants)? Never [email or web address] Information not available 10/06/2024 Have You Ever Used IV Drugs? Yes 10 Years Ago [email or web address] Information not available 10/06/2024 What Matters Most To You? Vision, Overall Health [email or web address] Information not available 10/06/2024 During The Past Four Weeks Has Your Physical And Emotional Health Limited Your Social Activities With Family And Friends, Neighbors, Or Groups? Moderately [email or web address] Information not available 10/06/2024 During The Past Four Weeks, Was Someone Available To Help You If You Needed And Wanted Help? (For Example, If You Check Very Nervous, Lonely, Or Blue; Got Sick And Had To Stay In Bed; Needed Someone To Talk To; Needed Help With Daily Chores; Or Needed Help Just Taking Care Of Yourself.) Yes- Quite A Bit [email or web address] Information not available 10/06/2024 During The Past Four Weeks, What Was The Hardest Physical Activity You Could Do For At Least 2 Minutes? Heavy [email or web address] Information not available 10/06/2024 Can You Get To Places Out Of Walking Distance Without Help? (For Example, Can You Travel Alone On Buses Or Taxis, Or Drive Your Own Car?) No [email or web address] Information not available 10/06/2024 Can You Go Shopping For Groceries Or Clothes Without Someone? s Help? No [email or web address] Information not available 10/06/2024 Can You Prepare Your Own Meals? No [email or web address] Information not available 10/06/2024 Can You Do Your Housework Without Help? Yes Information not available 10/06/2024 Because Of Any Health Problems, Do You Need The Help Of Another Person With Your Personal Care Needs Such As Eating, Bathing, Dressing, Or Getting Around The House? Yes [email or web address] Information not available 10/06/2024 Can You Handle Your Own Money Without Help? Yes [email or web address] Information not available 10/06/2024 Are You Having Difficulties Driving Your Car? Not Applicable- I Do Not Use A Car [email or web address] Information not available 10/06/2024 How Often During The Past Four Weeks Have You Been Bothered By Any Of The Following Problems? Falling Or Dizzy When Standing Up? Often [email or web address] Information not available 10/06/2024 Sexual Problems? Never [email or web address] Informat ion not available 10/06/2024 Trouble Eating Well? Never [email or web address] Information not available 10/06/2024 Teeth Or Denture Problems? Always [email or web address] Information not available 10/06/2024 Problems Using The Telephone? Always Can't See Phone [email or web address] Information not available 10/06/2024 Tiredness Or Fatigue? Always [email or web address] Information not available 10/06/2024 Have You Had 2 Or More Falls Or Sustained An Injury With A Fall In The Last Year? Yes [email or web address] Information not available 10/06/2024 Do You Have Difficulty With Walking Or Balance? Yes [email or web address] Information not available 10/06/2024 Do You Currently Use A Hearing Device? No [email or web address] Information not available 10/06/2024 Do You Currently Have Any Trouble With Your Vision? Yes Information no t available 10/06/2024 Do You Exercise For About 20 Minutes Three Or More Days A Week? No- I Usually Do Not Exercise Much [email or web address] Information not available 10/06/2024 Are There Any Safety Concerns In Your Home (see Attached CDC Pamphlet)? Yes Stairs, Cooking [email or web address] Information not available 10/06/2024 How Often Do You Have Trouble Taking Medicines The Way You Have Been Told To Take Them? Sometimes I Take Them As Prescribed [email or web address] Information not available 10/06/2024 How Confident Are You That You Can Control And Manage Most Of Your Health Problems? Somewhat Confident [email or web address] Information not available 10/06/2024 Do You Currently Have Any Difficulty With Your Hearing? No [email or web address] Information not available 10/06/2024 Date Of Most Recent SBINS 10/06/2024 [email or web address] Information not available 10/06/2024 What Was The Date Of Your Most Recent Tobacco Screening? 10/06/2024 [email or web address] Information not available 10/06/2024 What Is Your Current Pack Years? [email or web address] Information not available 11/03/2023 At What Age Did You Start Smoking Tobacco? 14 Information not available 11/03/2023 How Much Tobacco Do You Smoke? 1 PPW Information not available 11/03/2023 Has Tobacco Cessation Counseling Been Provided? Yes Pt Declines. [email or web address] Information not available 10/06/2024 On What Date Was Tobacco Cessation Counseling Provided? 10/06/2024 Pt Just Not Ready Yet. [email or web address] Information not available 10/06/2024 How Many Years Have You Smoked Tobacco? 35 Information not available 11/03/2023 Do You Or Have You Ever Used Any Other Forms Of Tobacco Or Nicotine? No Information not available 11/03/2023 Sex: Female Functional Status None recorded. Mental Status None recorded. Family History Relationship Description Onset Age of this Age Resolved Age Notes LastModified by Organization Details LastModified Time Mother Family history of kidney disease [email or web address] Not available 2022 03:50:23 Mother Family history of diabetes mellitus type [facility]. Not available 2022 03:50:26 Notes:*Problem: Mother: chichi ennis age 60 Father: age 60 cause heart failure Sisters: 2 sisters, age 37 & 38 Brothers: 1 brother age 43 Children: 5 children:male/10, male/8, girl/5, girl/3, and girl/2 Family History of: Hypertension: yes Hyperlipidemia: no Coronary heart disease: yes Diabetes mellitus: yes Mother Breast cancer: no Colorectal cancer: yes Alcoholism: yes Mental illness: no mother with history early Alzheimer's, also present in maternal aunts and uncles and maternal grandmother Medical History No medical history recorded. Gynecological HistoryNo gynecological history recorded. Obstetrics History GPAL:G 0 P 0 0 0 0 Immunizations Vaccine Type Date Status Note Provider Nam e and Address Organization Details Recorded Time COVID-19, mRNA, LNP-S, PF, anh-sucrose, 30 mcg/0.3 mL 4 completed ARMIDA HIRSCH MA null, [facility] 09/01/2024 18:38:23 Influenza, split virus, trivalent, PF 4 completed BARNEY HENDERSON MD [facility] [address], [place], [address], [facility] 09/01/2024 16:09:15 Td (adult), 5 Lf tetanus toxoid, preservative free, adsorbed 7 completed Not Available [facility] 08/27/2023 06:21:08 Tdap 7 completed Not Available [facility] 08/27/2023 06:21:08 Novel [id number], all formulations 9 completed Not Available [facility] 08/27/2023 06:21:08 Td(adult) unspecified formulation 1 completed Not Available [facility] 08/27/2023 06:21:08 Influenza, split virus, trivalent, preservative 6 completed Not Available [facility] 08/27/2023 06:21:08 Influenza, split virus, quadrivalent, PF 2 completed Not Available [facility] 08/27/2023 06:21:08 Influenza, split virus, quadrivalent, PF 3 completed Not Available [facility] 08/27/2023 06:21:08 Influenza, split virus, quadrivalent, preservative 8 completed Not Available [facility] 08/27/2023 06:21:09 COVID-19, mRNA, LNP-S, PF, 100 mcg/0.5mL dose or 50 mcg/0.25mL dose 2 completed Not Available [facility] 08/27/2023 06:21:09 COVID-19 vaccine, vector-nr, rS-Ad26, PF, 0.5 mL 1 completed Not Available [facility] 08/27/2023 06:21:09 COVID-19, mRNA, LNP-S, bivalent, PF, 30 mcg/0.3 mL dose 3 completed Not Available [facility] 08/27/2023 06:21:09 pneumococcal polysaccharide PPV23 0 completed Not Available [facility] 08/27/2023 06:21:09 influenza, unspecified formulation 9 completed Not Available [facility] 08/27/2023 06:21:09 influenza, unspecified formulation 8 completed Not Available [facility] 08/27/2023 06:21:09 influenza, unspecified formulation 7 completed Not Available [facility] 08/27/2023 06:21:09 Influenza, split virus, quadrivalent, PF 3 completed Not Available [facility] 10/29/2023 05:31:09 Pneumococcal conjugate PCV20, polysaccharide HLY014 conjugate, adjuvant, PF 3 completed Not Available [facility] 10/29/2023 05:31:11 Past Encounters Encounter ID Performer Location Encounter Start Date Encounter Closed Date Diagnosis/Indication Diagnosis SNOMED-CT Code Diagnosis ICD10 Code [id number] ROSIBEL SALGADO RN [address] [address] 10/06/2024 12:53:21 10/06/2024 14:03:34 Adult health examination 393451704 Z00.00 Muscle weakness 24286633 M62.81 Decompensa curtis cirrhosis of liver 361278980 K74.60 Hyperlipidemia 74311837 E78.5 Chronic hepatitis C 1283 62681 B18.2 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 9069803129 3090447 J44.9 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 69473774 E11.8 [id number] BARNEY HENDERSON MD [address] [address] 10/19/2024 14:35:21 10/19/2024 17:05:19 Acute exacerbation of chronic obstructive pulmonary disease 185969783 J44.1 Renal fail ure syndrome 67712386 N19 Decompensa curtis cirrhosis of liver 983923584 K74.60 Chronic hepatitis C 1283 00674 B18.2 Acute randa l insufficiency 069678555 N28.9 Essential hypertension 52490088 I10 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 43512835 E11.8 Tobacco us e cessation education 042653173 Z71.6 History of opioid abuse 6401160596 16288 F11.11 Retroperit antonio lymphadenopathy 603668587 R59.0 Health Concerns Section Related Observation LastModified by Organization Detai ls LastModified Time None Recorded Concern Status LastModified by Organization Details LastModified Time None Recorded Payers Encounter Date Sequence Insurance Name Policy Number Policy Salmon Covered Member ID Salmon Member ID Guarantor Name 10/19/2024 2 [facility] (MEDICAID) Lea Vasquez [id number] Lea Vasquez 10/19/2024 1 MEDICARE-PA - PART A - [facility] (MEDICARE) Lea Vasquez [id number] Lea Vasquez Notes Date Note Type Note Provider Name and Address Organization Details Recorded Time 10/19/2024 text/html CC: f/u hospitalization for acute renal failure The patient, Lea, presents for a follow-up visit after hospitalization for acute renal failure. She has a history of proteinuria secondary to diabetes and hypertension. She was referred for admission after routine labs showed a rise in creatinine from 1.3-6.2 over a year and a half. She reports several days of vomiting last month but otherwise was feeling well at the time of her admission. Today, 8 days post d/c, she feels worse, with significant fatigue and anorexia, as well as dyspnea and wheezing. She has some localized itching in her upper back. She denies vomiting and reports normal urinary pattern. No fever or purulent sputum. Several of Lea's medications, including valsartan, hydrochlorothiazide, and metformin, were held during her hospitalization (and since). Her long-acting insulin dosage was reduced to 20 units and eventually held completely. She was also treated with 5 days of ceftriaxone for a possible UTI, although her urine culture showed mixed growth. She reports sugars are running 100-1 80 without any insulin or metformin, but she has not been eating well. She is only using albuterol for her asthma and COPD, as she has not been able to afford the $30 co-pay for Trelegy or Ellipta. She continues on her methadone, amitriptyline, amlodipine, aspirin, atorvastatin, omeprazole, and escitalopram. The patient's potassium levels remained normal during her hospital stay, and she has anemia of chronic kidney disease. her blood pressure today is significantly higher than it was during her hospitalization, measuring 178/82. Repeat check is 158/82 BARNEY HENDERSON MD [address], [place], [address], [facility]. 10/19/2024 17:05:17 OBGyn Episode No OBEpisode recorded.
--- OUTSIDE RECORDS SUMMARY | 2024-10-19 21:13 | XMS_ITS | Data Portability ---
Author Organization [facility] [place], [place]_[facility]_Eulogio Long Address [address] [place] [address] Assessment Encounter Date Assessment Date Assessment LastModified by Organization Details LastModified Time 03/04/2022 03/04/2022 Telemedicine Information: This telmed (audio + visual) appointment provided a MAT prescription. Time Start: 124; Time End: 127 Provider Location: home; Patient Location: office Telemedicine Consent Given (verbal): Y ------- Lea is a 47 yo female with a PMH of OUD, depression, HTN, knee deformity, and DM2 who presents today for their weekly MAT visit. Initial visit: 08/19/21 UDS negative for illicit opioids: x5 Patient struggles with visit compliance and frequently misses appointments. Current prescription is: Suboxone 12 (8,2,2)mg films. Patient denies any S/E, cravings, or withdrawal sx at current dose. Update Since Last Visit : Patient denies illicit use since last visit. Medical: Lea istaking all her HTN and DM2 meds. Bloodwork: Still not completed no excuses, I just haven't done it yet. Social: Lea is upbeat and happy and again says that things are really good, especially with family. Warm weather is helping her mood, she has more energy. LAB RESULTS Last UDS result (qualitative screen): 02/25/22POS buprenorphine and NO illicit drugs Last confirmatory test result (LCMS/quantitative ): N/A due to negative UDS Last Bup confirmation test result: Bup: 155 ng/ml & Norbup: 191 ng/ml Last LFT result: Overdue for lab work ASSESSMENT The patient's current phase of OUD treatment is: Stabilization phase. Interpretation of last buprenorphine confirmation test result: No concern Medication dose: No report of severe or persistent cravings/withdrawa l symptoms. Pt will remain at current dose PLAN Rx : Continue Suboxone 12mg films daily. Rx Quantity : 7d Rx provided today. Visit Frequency : Continue weekly visits and UDS. Discussed likelyhood of advancing to biweekly in two more weeks if all continues well. Treatment plan review or change includes continue current level of care LAB ORDERS: Urine drug testing is ordered today with medical necessity as below. Confirmatory testing may be indicated for illicit substances or absence of prescribed buprenorphine. UNEXPECTED results on UDS may impact this patient's treatment plan. The following information will be used to place the proper confirmation orders for the specimen collected for this date 03/04/2022. Perform Confirmation if Positive Amphetamines Perform Confirmation if Positive Benzodiazepines Perform Confirmation if Positive Cocaine Perform Confirmation if Positive Methadone Perform Confirmation if Positive Opiates and/or Fentanyl Perform Confirmation if Positive Oxycodone Additional requests in regards to confirmation orders. NONE LFTS will be repeated per our clinical protocol. Prescription monitoring program is reviewed. If applicable, I have identified agents prescribed to the patient in addition to any issued by our program. The patient has been counseled regarding any risk of combining sedating agents. [email or web address] Not available 03/04/2022 13:28:21 03/11/2022 03/11/2022 Telemedicine Information: This telmed (audio + visual) appointment provided a MAT prescription. Time Start: 104; Time End: 108 Provider Location: home; Patient Location: office Telemedicine Consent Given (verbal): Y ------- Lea is a 47 yo female with a PMH of OUD, depression, HTN, knee deformity, and DM2 who presents today for their weekly MAT visit. Initial visit: 08/19/21 UDS negative for illicit opioids: x7 Patient struggles with visit compliance and frequently misses appointments. Current prescription is: Suboxone 12 (8,2,2)mg films. Patient denies any S/E, cravings, or withdrawal sx at current dose. Update Since Last Visit : Patient admits to the following illicit use since last visit: vicodin Lea hurt her shoulder; she went to her doctor and was diagnosed with frozen shoulder and prescribed PT, ice/heat. The earliest she can get into PT is March 20. In the meantime she did use some illicit vicodin for the pain. LAB RESULTS Last UDS result (qualitative screen): 03/04/22POS buprenorphine and NO illicit drugs Last confirmatory test result (LCMS/quantitative ): N/A due to negative UDS Last Bup confirmation test result: Bup: 155 ng/ml & Norbup: 191 ng/ml Last LFT result: Overdue for lab work ASSESSMENT The patient's current phase of OUD treatment is: Stabilization phase. Interpretation of last buprenorphine confirmation test result: No concern Medication dose: No report of severe or persistent cravings/withdrawa l symptoms. Pt will remain at current dose PLAN Rx : Continue Suboxone 12mg films daily. Rx Quantity : 7d Rx provided today. Visit Frequency : Continue weekly visits and UDS. Treatment plan review or change includes continue current level of care LAB ORDERS: Urine drug testing is ordered today with medical necessity as below. Confirmatory testing may be indicated for illicit substances or absence of prescribed buprenorphine. UNEXPECTED results on UDS may impact this patient's treatment plan. The following information will be used to place the proper confirmation orders for the specimen collected for this date 03/11/2022. Perform Confirmation if Positive Amphetamines Perform Confirmation if Positive Benzodiazepines Perform Confirmation if Positive Cocaine Perform Confirmation if Positive Methadone Admitted Use Opiates and/or Fentanyl Perform Confirmation if Positive Oxycodone Additional requests in regards to confirmation orders. NONE LFTS will be repeated per our clinical protocol. Prescription monitoring program is reviewed. If applicable, I have identified agents prescribed to the patient in addition to any issued by our program. The patient has been counseled regarding any risk of combining sedating agents. [email or web address] Not available 03/11/2022 13:08:03 03/25/2022 03/25/2022 Telemedicine Information: This telmed (audio + visual) appointment provided a MAT prescription. Time Start: 146; Time End: 149 Provider Location: home; Patient Location: office Telemedicine Consent Given (verbal): Y ------- Lea is a 47 yo female with a PMH of OUD, depression, HTN, knee deformity, and DM2 who presents today for their weekly MAT visit. Initial visit: 08/19/21 UDS negative for illicit opioids: x0 Patient struggles with visit compliance and frequently misses appointments. Current prescription is: Suboxone 12 (8,2,2)mg films. Patient denies any S/E, cravings, or withdrawal sx at current dose. Update Since Last Visit : Patient denies illicit use since last visit. Lea last seen two weeks ago. She says that she was too busy to come in to the clinic. She has a car now, so won't be needing to rely on RCT in the future. Her shoulder is still sore, she knows she needs to go to her PCP to get a referral. LAB RESULTS Last UDS result (qualitative screen): 03/11/22NEG buprenorphine and POS for the following illicit drugs: +opiates Last confirmatory test result (LCMS/quantitative ): N/A due to admitted use Last Bup confirmation test result: Bup: 155 ng/ml & Norbup: 191 ng/ml Last LFT result: Overdue for lab work ASSESSMENT The patient's current phase of OUD treatment is: Stabilization phase. Interpretation of last buprenorphine confirmation test result: No concern Medication dose: No report of severe or persistent cravings/withdrawa l symptoms. Pt will remain at current dose PLAN Rx : Continue Suboxone 12mg films daily. Rx Quantity : 7d Rx provided today. Visit Frequency : Continue weekly visits and UDS. Treatment plan review or change includes continue current level of care LAB ORDERS: Urine drug testing is ordered today with medical necessity as below. Confirmatory testing may be indicated for illicit substances or absence of prescribed buprenorphine. UNEXPECTED results on UDS may impact this patient's treatment plan. The following information will be used to place the proper confirmation orders for the specimen collected for this date 03/25/2022. Perform Confirmation if Positive Amphetamines Perform Confirmation if Positive Benzodiazepines Perform Confirmation if Positive Cocaine Perform Confirmation if Positive Methadone Perform Confirmation if Positive Opiates and/or Fentanyl Perform Confirmation if Positive Oxycodone Additional requests in regards to confirmation orders. NONE LFTS will be repeated per our clinical protocol. Prescription monitoring program is reviewed. If applicable, I have identified agents prescribed to the patient in addition to any issued by our program. The patient has been counseled regarding any risk of combining sedating agents. Not available 03/25/2022 13:50:44 04/08/2022 04/08/2022 Telemedicine Information: This telmed (audio + visual) appointment provided a MAT prescription. Time Start: 143; Time End: 148 Provider Location: home; Patient Location: office Telemedicine Consent Given (verbal): Y ------- Lea is a 47 yo female with a PMH of OUD, depression, HTN, knee deformity, and DM2 who presents today for their weekly MAT visit. Initial visit: 08/19/21 UDS negative for illicit opioids: x1 Patient struggles with visit compliance and frequently misses appointments. Current prescription is: Suboxone 12 (8,2,2)mg films. Patient denies any S/E, cravings, or withdrawal sx at current dose. Update Since Last Visit : Patient denies illicit use since last visit. Reviewed lab results and elevated LFTs. Lea shares that she knows she has Hep C. Encouraged Lea to connect with her PCP for treatment, as she is well connected with her PCP. Otherwise, Lea is doing well. No use. LAB RESULTS Last UDS result (qualitative screen): 03/25/22POS buprenorphine and NO illicit drugs Last confirmatory test result (LCMS/quantitative ): N/A due to negative UDS Last Bup confirmation test result: Bup: 31 ng/ml & Norbup: 168 ng/ml Last LFT result: Elevated LFTs 04/01/22 ASSESSMENT The patient's current phase of OUD treatment is: Stabilization phase. Interpretation of last buprenorphine confirmation test result: No concern Medication dose: No report of severe or persistent cravings/withdrawa l symptoms. Pt will remain at current dose PLAN Rx : Continue Suboxone 12mg films daily. Rx Quantity : 7d Rx provided today. Visit Frequency : Continue weekly visits and UDS. Treatment plan review or change includes continue current level of care LAB ORDERS: Urine drug testing is ordered today with medical necessity as below. Confirmatory testing may be indicated for illicit substances or absence of prescribed buprenorphine. UNEXPECTED results on UDS may impact this patient's treatment plan. The following information will be used to place the proper confirmation orders for the specimen collected for this date 04/08/2022. Perform Confirmation if Positive Amphetamines Perform Confirmation if Positive Benzodiazepines Perform Confirmation if Positive Cocaine Perform Confirmation if Positive Methadone Perform Confirmation if Positive Opiates and/or Fentanyl Perform Confirmation if Positive Oxycodone Additional requests in regards to confirmation orders. NONE LFTS will be repeated per our clinical protocol. Prescription monitoring program is reviewed. If applicable, I have identified agents prescribed to the patient in addition to any issued by our program. The patient has been counseled regarding any risk of combining sedating agents. [email or web address] Not available 04/08/2022 13:48:17 04/22/2022 04/22/2022 Telemedicine Information: This telmed (audio + visual) appointment provided a MAT prescription. Time Start: 1000; Time End:1015 Provider Location: home; Patient Location: office Telemedicine Consent Given (verbal): Y This patient with a history of OUD presents today for their weekly MAT visit Current prescription is: buprenorphine/nalo xone 12/3mg films LEA IS A 47 YO FEMALE WITH A PMH OF OUD, HCV, DEPRESSION, HTN, KNEE DEFORMITY, AND DM2 WHO PRESENTS TODAY FOR HER WEEKLY MAT VISIT. PTS INITIAL VISIT WAS ON 08/19/21, PATIENT STRUGGLES WITH VISIT COMPLIANCE AND FREQUENTLY MISSES APPOINTMENTS. CURRENT PRESCRIPTION IS: SUBOXONE 12 (8,2,2)MG FILMS. PATIENT DENIES ANY S/E, CRAVINGS, OR WITHDRAWAL SX AT CURRENT DOSE. UPDATE SINCE LAST VISIT: - PT DENIES SIGNIFICANT CHANGES SINCE LAST VISIT - PATIENT REPORTS ILLICIT USE SINCE LAST VISIT: USED VICODIN 6 DAYS AGO SHE WAS OUT OF SUBOXONE - PATIENT DENIES SIGNIFICANT WITHDRAWAL SX, CRAVINGS OR ADVERSE EFFECTS ON CURRENT DOSE/ FORMULATION. LAB RESULTS Last UDS result (qualitative screen): 04/08/22POS buprenorphine and NO illicit drugs UDS (QL) SHOWED +FENT & +ETOH BUT PT DENIES BOTH. CONFIRMATION (QN) -FENT. PT DENIES ETOH USE STATING IT'S BEEN A LONG TIME Last confirmatory test result (LCMS/quantitative ): SEE ABOVE Last Bup confirmation test result: Bup: 31.0 ng/ml & Norbup: 168.7 ng/ml Last LFT result: 04/01/22 HCV+, ELEVATED LFTs ASSESSMENT The patient's current phase of OUD treatment is: Stabilization phase. Interpretation of last buprenorphine confirmation test result: No concern Medication dose: No report of severe or persistent cravings/withdrawa l symptoms. Pt will remain at current dose PLAN Rx : Continue buprenorphine/nalo xone 12/3mg films daily Rx Quantity 7d Rx provided today. VISIT FREQUENCY Continue weekly visits and UDS. Treatment plan review or change includes continue current level of care LAB ORDERS: Urine drug testing is ordered today with medical necessity as below. Confirmatory testing may be indicated for illicit substances or absence of prescribed buprenorphine. UNEXPECTED results on UDS may impact this patient's treatment plan. The following information will be used to place the proper confirmation orders for the specimen collected for this date 04/22/2022 . Perform Confirmation if Positive Amphetamines Perform Confirmation if Positive Benzodiazepines Perform Confirmation if Positive Cocaine Perform Confirmation if Positive Methadone Perform Confirmation if Positive Opiates and/or Fentanyl Perform Confirmation if Positive Oxycodone Additional requests in regards to confirmation orders. NONE Prescription monitoring program is reviewed. If applicable, I have identified agents prescribed to the patient in addition to any issued by our program. The patient has been counseled regarding any risk of combining sedating agents. [email or web address] Not available 04/22/2022 10:06:59 Plan of Treatment Reminders Order Date Submit Date Provider Last Modified By Organization Details Last Modified Time Details Appointments None recorded. Lab drug screen, urine 2021 022 [facility], [address] [place], [address], 2 11:21:44 drug screen, urine 2021 022 [facility], [address] [place] [place], [address], 2 13:54:31 drug screen, urine 2021 022 [facility], [address] [place], [address], 2 14:14:27 AST/SGOT (aspartate aminotransf erase), serum or plasma [address] (Lab), [address] [place] [address], [id number], 2 11:11:26 ALT (alanine aminotransf erase), serum or plasma [address] (Lab), [address] [place] [address], [address], 2 11:11:26 gamma-gluta myl transferase (ggt), serum [address] (Lab), [address] [place] [address], [address], 2 11:11:26 drug screen, urine 2021 022 [facility], [address] [place], [address], 2 09:33:11 drug screen, urine [address], [address] [place], [address], 2 10:28:58 Referral None recorded. Procedures None recorded. Surgeries None recorded. Imaging None recorded. Medication Orders Suboxone 8 mg-2 mg sublingual film 2021 022 [facility] Not available 13:27:34 Suboxone 2 mg-0.5 mg sublingual film 2021 [facility] Not available 13:27:35 Suboxone 8 mg-2 mg sublingual film 2021 022 [facility] Not available 13:08:08 Suboxone 2 mg-0.5 mg sublingual film 2021 022 [facility] Not available 13:08:08 Suboxone 8 mg-2 mg sublingual film 2021 022 [facility] Not available 13:49:56 Suboxone 2 mg-0.5 mg sublingual film 2021 022 [facility] Not available 13:49:57 Suboxone 8 mg-2 mg sublingual film 2021 022 [facility] Not available 13:48:11 Suboxone 2 mg-0.5 mg sublingual film 2021 022 [facility] Not available 13:48:10 Suboxone 2 mg-0.5 mg sublingual film 2021 022 [facility] Not available 10:05:56 Suboxone 8 mg-2 mg sublingual film 2021 022 [facility] Not available 10:05:58 Patient TargetsNo targets recorded. Patient InstructionsNo instructions recorded. Reason for Referral None Reported. Results Created Date Observation Date Name Description Value Unit Range Abnormal Flag Note LastModifiedBy Organization Detail LastModifiedTime 02/19/2002/18/2022 [facility] amphetamines Negati ve NG/mL 1,000 Gerda vaughn by GINO Vitaliy FRIEDMAN Not Available [place] [address] [place], [address], 02/20/2022 11:43:53 02/19/2008 0302/18/2022 [facility]A benzodiazapi olivia Negati ve NG/mL 200 Not Available [facility] [place], [address], 02/20/2022 11:43:53 02/19/20 22 02/18/2022 [facility] PT SCREE MONIKA buprenorphin e Positi ve NG/mL 5 Not Available [address] [place] [address] [place], [address], 02/20/2022 11:43:53 02/19/20 22 02/18/2022 [facility] S[facility] cocaine metabolite Negati ve NG/mL 150 Not Available [place] [address] [place], [address], 02/20/2022 11:43:53 02/19/20 22 02/18/2022 [facility] PT SCREE MONIKA opiates Negati ve NG/mL 300 Not Available [facility] [place], [address], 02/20/2022 11:43:53 02/19/20 22 02/18/2022 [facility] PT SCREE MONIKA oxycodone Negati ve NG/mL 300 Not Available [address] [place] [address] [place], [address], 02/20/2022 11:43:53 02/19/20 22 02/18/2022 [facility] PT SCREE MONIKA fentanyl Negati ve NG/mL 2 Not Available [place] [address] [place], [address], 02/20/2022 11:43:53 02/19/20 22 02/18/2022 [facility] PT SCREE MONIKA ethyl alcohol Negati ve mg/dL 10 Not Available [facility] [place], [address], 02/20/2022 11:43:53 02/19/20 22 02/18/2022 [facility] PT SCREE MONIKA methadone metabolite Negati ve NG/mL 300 Not Available [facility] [place], [address], 02/20/2022 11:43:53 02/19/20 22 02/18/2022 [facility] SCREE MONIKA cannabinoids (THC) Negati ve NG/mL 50 Not Available [facility] [place], [address], 02/20/2022 11:43:53 02/19/20 22 02/18/2022 [facility] SCREE MONIKA urine creatinine 138.4 mg/dL >20 Not Available [place] [address] [place], [address], 02/20/2022 11:43:53 02/19/20 22 02/18/2022 [facility] SCR[facility]IKA urine pH 5.60 4.5-9. 0 Not Available [place] [address] [place], [address], 02/20/2022 11:43:53 02/19/20 22 02/18/2022 [facility]IKA specific gravity 1.019 1.003- 1.035 Not Available [place] [address] [place], [address], 02/20/2022 11:43:53 02/19/20 22 02/18/2022 PRESC RIBED DRUG CONFI RMATI ON [facility] INE 1, QN, U buprenorphin e 155.3 NG/mL 10 Gerda vaughn by GINO STARK FRIEDMAN Not Available [place] [address] [place], [address], 02/24/2022 13:27:22 02/19/20 22 02/18/2022 PRESC RIBED DRUG CONFI RMATI ON [facility] 1, QN, U norbuprenorp sebastián 191.7 NG/mL 10 Not Available [place] [address] [place], [address], 02/24/2022 13:27:22 02/19/20 22 02/18/2022 PRES RIBED DRUG CONFI RMATI ON [facility] INE 1, QN, U legend Abbrev iation s LOW - Detec francis but unqua ntifi able OLR - Outsi de of linea r range ATR - Addit ional Testi ng Requi red Not Available [place] [address] [place], [address], 02/24/2022 13:27:22 02/19/20 22 02/18/2022 [facility] RIBED DRUG CONFI RMATI ON [facility] INE 1, QN, U billing only ([id number]) Billin g Only Not Available [facility] [place], [address], 02/24/2022 13:27:22 02/26/20 22 02/25/2022 [facility] PT SCREE MONIKA amphetamines Negati ve NG/mL 1,000 Gerda olivo d by GINO STARK LIPAN Not Available [place] [address] [place], [address], 02/26/2022 12:36:27 02/26/20 22 02/25/2022 [facility] SCREE [facility]IKA benzodiazapi olivia Negati ve NG/mL 200 Not Available [facility] [place], [address], 02/26/2022 12:36:27 02/26/20 22 02/25/2022 [facility] PT SCREE MONIKA buprenorphin e Positi ve NG/mL 5 Not Available [facility] [place], [address], 02/26/2022 12:36:27 02/26/20 22 02/25/2022 [facility] PT SCREE MONIKA cocaine metabolite Negati ve NG/mL 150 Not Available [facility] [place], [address], 02/26/2022 12:36:27 02/26/20 22 02/25/2022 [facility] PT SCREE MONIKA opiates Negati ve NG/mL 300 Not Available [facility] [place], [address], 02/26/2022 12:36:27 02/26/20 22 02/25/2022 [facility] PT SCREE MONIKA oxycodone Negati ve NG/mL 300 Not Available [facility] [place], [address], 02/26/2022 12:36:27 02/26/20 22 02/25/2022 [facility] SCREE MONIKA fentanyl Negati ve NG/mL 2 Not Available [facility] [place], [address], 02/26/2022 12:36:27 02/26/20 22 02/25/2022 [facility] PT SCREE MONIKA ethyl alcohol Negati ve mg/dL 10 Not Available [facility] [place], [address], 02/26/2022 12:36:27 02/26/20 22 02/25/2022 [facility] PT SCREE MONIKA methadone metabolite Negati ve NG/mL 300 Not Available [facility] [place], [address], 02/26/2022 12:36:27 02/26/20 22 02/25/2022 [facility] SCR[facility]IKA cannabinoids (THC) Negati ve NG/mL 50 Not Available [facility] [place], [address], 02/26/2022 12:36:27 02/26/20 22 02/25/2022 [facility]A urine creatinine 101.1 mg/dL >20 Not Available [place] [address] [place], [address], 02/26/2022 12:36:27 02/26/20 22 02/25/2022 [facility] SCREE MONIKA urine pH 5.30 4.5-9. 0 Not Available [place] [address] [place], [address], 02/26/2022 12:36:27 02/26/20 22 02/25/2022 [facility] SCREE MONIKA specific gravity 1.014 1.003- 1.035 Not Available [address] [place] [address] [place], [address], 02/26/2022 12:36:27 03/04/20 22 03/04/2022 [facility] PT SCREE MONIKA amphetamines Negati ve NG/mL 1,000 [facility] d by [facility] Not Available [place] [address] [place], [address], 03/05/2022 11:21:44 03/04/20 22 03/04/2022 [facility] PT SCREE MONIKA benzodiazapi olivia Negati ve NG/mL 200 Not Available [facility] [place], [address], 03/05/2022 11:21:44 03/04/20 22 03/04/2022 [facility] PT SCREE MONIKA buprenorphin e Positi ve NG/mL 5 Not Available [facility] [place], [address], 03/05/2022 11:21:44 03/04/20 22 03/04/2022 [facility] PT SCREE MONIKA cocaine metabolite Negati ve NG/mL 150 Not Available [facility] [place], [address], 03/05/2022 11:21:44 03/04/20 22 03/04/2022 [facility] PT SCREE MONIKA opiates Negati ve NG/mL 300 Not Available [facility] [place], [address], 03/05/2022 11:21:44 03/04/20 22 03/04/2022 [facility] PT SCREE MONIKA oxycodone Negati ve NG/mL 300 Not Available [facility] [place], [address], 03/05/2022 11:21:44 03/04/20 22 03/04/2022 [facility] PT SCREE MONIKA fentanyl Negati ve NG/mL 2 Not Available [facility] [place], [address], 03/05/2022 11:21:44 03/04/20 22 03/04/2022 [facility] PT SCREE MONIKA ethyl alcohol Negati ve mg/dL 10 Not Available [facility] [place], [address], 03/05/2022 11:21:44 03/04/20 22 03/04/2022 [facility] PT SCREE MONIKA methadone metabolite Negati ve NG/mL 300 Not Available [facility] [place], [address], 03/05/2022 11:21:44 03/04/20 22 03/04/2022 [facility] PT SCREE MONIKA cannabinoids (THC) Negati ve NG/mL 50 Not Available [facility] [place], [address], 03/05/2022 11:21:44 03/04/20 22 03/04/2022 [facility] PT SCREE MONIKA urine creatinine 40.7 mg/dL >20 Not Available [place] [address] [place], [address], 03/05/2022 11:21:44 03/04/20 22 03/04/2022 [facility] MONIKA urine pH 5.80 4.5-9. 0 Not Available [place] [address] [place], [address], 03/05/2022 11:21:44 03/04/20 22 03/04/2022 [facility] specific gravity 1.009 1.003- 1.035 Not Available [place] [address] [place], [address], 03/05/2022 11:21:44 03/11/20 22 03/11/2022 [facility]CREE MONIKA amphetamines Negati ve NG/mL 1,000 [facility] [place] Not Available [place] [address] [place], [address], 03/12/2022 13:54:31 03/11/20 22 03/11/2022 [facility] PT SCREE MONIKA benzodiazapi olivia Negati ve NG/mL 200 Not Available [facility] [place], [address], 03/12/2022 13:54:31 03/11/20 22 03/11/2022 [facility] PT SCREE MONIKA buprenorphin e Positi ve NG/mL 5 Not Available [facility] [place], [address], 03/12/2022 13:54:31 03/11/20 22 03/11/2022 [facility] PT SCREE MONIK[facility] cocaine metabolite Negati ve NG/mL 150 Not Available [facility] 12 [place], [address], 03/12/2022 13:54:31 03/11/20 22 03/11/2022 [facility]CR[facility] MONIKA opiates Positi ve NG/mL 300 abnormal Not Available [place] [address] [place], [address], 03/12/2022 13:54:31 03/11/20 22 03/11/2022 [facility] SCR[facility] MON[facility]A oxycodone Negati ve NG/mL 300 Not Available [place] [address] [place], [address], 03/12/2022 13:54:31 03/11/20 22 03/11/2022 [facility] PT SCREE MON[facility] fentanyl Negati ve NG/mL 2 Not Available [place] [address] [place], [address], 03/12/2022 13:54:31 03/11/20 22 03/11/2022 [facility] PT [facility] MON[facility] ethyl alcohol Negati ve mg/dL 10 Not Available [place] [address] [place], [address], 03/12/2022 13:54:31 03/11/20 22 03/11/2022 [facility] PT [facility]CREE MONIKA methadone metabolite Negati ve NG/mL 300 Not Available [place] [address] [place], [address], 03/12/2022 13:54:31 03/11/20 22 03/11/2022 [facility]CR[facility] MON[facility]A cannabinoids (THC) Negati ve NG/mL 50 Not Available [place] [address] [place], [address], 03/12/2022 13:54:31 03/11/20 22 03/11/2022 [facility] MONIK[facility] urine creatinine 55.1 mg/dL >20 Not Available [place] [address] [place], [address], 03/12/2022 13:54:31 03/11/20 22 03/11/2022 [facility] PT SCREE MONIKA urine pH 5.50 4.5-9. 0 Not Available [place] [address] [place], [address], 03/12/2022 13:54:31 03/11/20 22 03/11/2022 [facility] PT SCREE MONIKA specific gravity 1.008 1.003- 1.035 Not Available [place] [address] [place], [address], 03/12/2022 13:54:31 03/11/20 22 03/11/2022 ADMIT FRANCIS OPIAT ES USE admitted opiates use NTP [facility] [place] [facility] No Testi ng Perfo rmed Not Available [place] [address] [place], [address], 03/17/2022 07:29:46 03/25/20 22 03/25/2022 [facility] PT SCREE MON[facility]A amphetamines Negati ve NG/mL 1,000 [facility] Not Available [place] [address] [place], [address], 03/26/2022 14:14:27 03/25/20 22 03/25/2022 [facility] PT SCR[facility] MONIKA benzodiazapi olivia Negati ve NG/mL 200 Not Available [facility] [place], [address], 03/26/2022 14:14:27 03/25/20 22 03/25/2022 [facility] PT SCREE MONIKA buprenorphin e Positi ve NG/mL 5 Not Available [facility] 12 [place], [address], 03/26/2022 14:14:27 03/25/20 22 03/25/2022 [facility] PT SCREE MONIKA cocaine metabolite Negati ve NG/mL 150 Not Available [facility] [place], [address], 03/26/2022 14:14:27 03/25/20 22 03/25/2022 [facility] PT SCREE MONIKA opiates Negati ve NG/mL 300 Not Available [place] [address] [place], [address], 03/26/2022 14:14:27 03/25/20 22 03/25/2022 [facility] PT SCREE MONIKA oxycodone Negati ve NG/mL 300 Not Available [facility] [place], [address], 03/26/2022 14:14:27 03/25/20 22 03/25/2022 [facility] PT SCREE MONIKA fentanyl Negati ve NG/mL 2 Not Available [place] [address] [place], [address], 03/26/2022 14:14:27 03/25/20 22 03/25/2022 [facility] PT SCREE MONIKA ethyl alcohol Negati ve mg/dL 10 Not Available [facility] [place], [address], 03/26/2022 14:14:27 03/25/20 22 03/25/2022 [facility] PT SCREE MONIKA methadone metabolite Negati ve NG/mL 300 Not Available [place] [address] [place], [address], 03/26/2022 14:14:27 03/25/20 22 03/25/2022 [facility] PT SCREE MONIKA cannabinoids (THC) Negati ve NG/mL 50 Not Available [place] [address] [place], [address], 03/26/2022 14:14:27 03/25/20 22 03/25/2022 [facility] PT SCR[facility] MONIKA urine creatinine 72.8 mg/dL >20 Not Available [place] [address] [place], [address], 03/26/2022 14:14:27 03/25/20 22 03/25/2022 [facility] PT SCR[facility] MONIKA urine pH 5.20 4.5-9. 0 Not Available [place] [address] [place], [address], 03/26/2022 14:14:27 03/25/20 22 03/25/2022 [facility] PT SCR[facility] MON[facility]A specific gravity 1.016 1.003- 1.035 Not Available [place] [address] [place], [address], 03/26/2022 14:14:27 03/25/20 22 03/25/2022 PRESC RIBED DRUG CONFI RMATI ON [facility] INE 1, QN, U buprenorphin e 31.0 NG/mL 10 [facility] [facility] Not Available [place] [address] [place], [address], 03/31/2022 06:31:56 03/25/20 22 03/25/2022 PRESC RIBED DRUG CONFI RMATI ON [facility] 1, QN, U norbuprenorp sebastián 168.7 NG/mL 10 Not Available [place] [address] Tyra [place]AH, [address], 03/31/2022 06:31:56 03/25/20 22 03/25/2022 PRESC RIBED DRUG CONFI RMATI ON [facility] 1, QN, U legend Abbrev iation s LOW - Detec francis but unqua ntifi able OLR - Outsi de of linea r range ATR - Addit ional Testi ng Requi red Not Available [place] [address] Yusra [place], [address], 03/31/2022 06:31:56 03/25/20 22 03/25/2022 [facility] RIBED DRUG CONFI RMATI ON [facility]UP[facility] INE 1, QN, U billing only ([id number]) Billin g Only Not Available [facility] [place], [address], 03/31/2022 06:31:56 04/08/20 22 04/08/2022 [facility] PT SCREE MONIKA amphetamines Negati ve NG/mL 1,000 Elect [place] [facility] Not Available [place] [address] [place], [address], 04/13/2022 09:33:11 04/08/20 22 04/08/2022 [facility] PT SCREE MONIKA benzodiazapi olivia Negati ve NG/mL 200 Not Available [facility] [place], [address], 04/13/2022 09:33:11 04/08/20 22 04/08/2022 [facility] PT SCREE MONIKA buprenorphin e Positi ve NG/mL 5 Not Available [facility] [place], [address], 04/13/2022 09:33:11 04/08/20 22 04/08/2022 [facility] PT SCREE MONIKA cocaine metabolite Negati ve NG/mL 150 Not Available [facility] [place], [address], 04/13/2022 09:33:11 04/08/20 22 04/08/2022 [facility] PT SCREE MONIKA opiates Negati ve NG/mL 300 Not Available [facility] [place], [address], 04/13/2022 09:33:11 04/08/20 22 04/08/2022 [facility] PT SCREE MONIKA oxycodone Negati ve NG/mL 300 Not Available [place] [address] [place], [address], 04/13/2022 09:33:11 04/08/20 22 04/08/2022 [facility] PT SCREE MONIKA fentanyl Positi ve NG/mL 2 abnormal Not Available [place] [address] [place], [address], 04/13/2022 09:33:11 04/08/20 22 04/08/2022 [facility] PT SCREE MONIKA ethyl alcohol Positi ve mg/dL 10 abnormal Not Available [place] [address] [place], [address], 04/13/2022 09:33:11 04/08/20 22 04/08/2022 [facility] PT SCREE MONIKA methadone metabolite Negati ve NG/mL 300 Not Available [place] [address] [place], [address], 04/13/2022 09:33:11 04/08/20 22 04/08/2022 [facility] PT SCREE MONIKA cannabinoids (THC) Negati ve NG/mL 50 Not Available [place] [address] [place], [address], 04/13/2022 09:33:11 04/08/20 22 04/08/2022 [facility] PT SCREE MONIKA urine creatinine 42.7 mg/dL >20 Not Available [place] [address] [place], [address], 04/13/2022 09:33:11 04/08/20 22 04/08/2022 [facility] PT SCREE MONIKA urine pH 4.10 4.5-9. 0 low Not Available [place] [address] [place], [address], 04/13/2022 09:33:11 04/08/20 22 04/08/2022 [facility] PT SCREE MONIKA specific gravity 1.035 1.003- 1.035 Not Available [place] [address] [place], [address], 04/13/2022 09:33:11 04/08/20 22 04/08/2022 OPIAT E W/ FENTA NYL 6-acetylmorp sebastián Negati ve NG/mL 10 Elect [facility] by [facility] Not Available [place] [address] [place], [address], 04/16/2022 09:49:50 04/08/20 22 04/08/2022 OPIAT E W/ FENTA NYL codeine Negati ve NG/mL 50 Not Available [facility] [place], [address], 04/16/2022 09:49:50 04/08/20 22 04/08/2022 OPIAT E W/ FENTA NYL hydrocodone Negati ve NG/mL 50 Not Available [facility] [place], [address], 04/16/2022 09:49:50 04/08/20 22 04/08/2022 OPIAT E W/ FENTA NYL hydromorphon e Negati ve NG/mL 50 Not Available [facility] [place], [address], 04/16/2022 09:49:50 04/08/20 22 04/08/2022 OPIAT E W/ FENTA NYL morphine Negati ve NG/mL 50 Not Available [facility] [place], [address], 04/16/2022 09:49:50 04/08/20 22 04/08/2022 OPIAT E W/ FENTA NYL norhydrocodo ne Negati ve NG/mL 100 Not Available [facility] [place], [address], 04/16/2022 09:49:50 04/08/20 22 04/08/2022 OPIAT E W/ FENTA NYL fentanyl Negati ve NG/mL 20 Not Available [place] [address] Kyle Goff [place], [address], 04/16/2022 09:49:50 04/08/20 22 04/08/2022 OPIAT E W/ FENTA NYL norfentanyl Negati ve NG/mL 20 Not Available [place] [address] Kyle Goff [place], [address], 04/16/2022 09:49:50 04/08/20 22 04/08/2022 OPIAT E W/ FENTA NYL tramadol Negati ve NG/mL 100 Not Available [place] [address] [place], [address], 04/16/2022 09:49:50 04/08/20 22 04/08/2022 OPIAT E W/ FENTA NYL legend Abbrev iation s OLR - Outsi de of linea r range Not Available [place] [address] [place], [address], 04/16/2022 09:49:50 04/08/20 22 04/08/2022 OPIAT E W/ FENTA NYL billing only ([id number]) Billin g Only Not Available [place] [address] [place], [address], 04/16/2022 09:49:50 Result Notes None recorded. Problems Name Problem SNOMED Code Status Onset Date Resolution Date Notes Provider Name and Address Organization Details Recorded Time Knee joint valgus deformity 995664002 Active 2020 on disability Not Available [facility] 05:31:38 Depressiv e disorder 18864459 Active 2020 on disability Not Available [facility] 05:31:38 Type 2 diabetes mellitus 10155053 Active 2020 Not Available [facility] 05:31:38 Essential hypertens ion 45221327 Active 2020 Not Available [facility] 05:31:38 Opioid dependenc e 36110033 Active 2021 Mary Carmen Friedman NP [address] [facility] [place], [address] , [facility] 2 09:46:10 Restless legs 54894056 Active 2021 Mary Carmen Friedman NP [address] [facility] [place], [address] , [facility] 2 13:15:26 Adhesive capsuliti s of shoulder 639303488 Active 2021 Mary Carmen Friedman NP [address] [place] [address], [place], [address] , [facility] 2 13:08:29 Viral hepatitis C 99661465 Active 2021 Mary Carmen Friedman NP [address] [place] [address], [place], [address] , [facility] 2 13:44:29 Problem Notes None recorded. Procedures Surgical History Date Name Laterality Status Provider Name and Address Organization Details Recorded Time 04/22/2022 67581, G0480, G0481 completed [facility] 04/22/2022 09:42:02 02/25/2022 47174, G0480, G0481 completed [facility] 02/25/2022 13:24:56 10/22/2021 43836, G0480, G0481 completed Mary Carmen Friedman NP [address] [place] [address], [address], [facility] 10/22/2021 09:03:24 Imaging Results None recorded. Procedure Notes None recorded. Medical Equipment None Reported. Allergies Allergen ID Allergen Name Allergen Category Reaction Reaction Severity Criticality Documentation Date Start Date Code Code System Note Provider Name and Address Organization Details Recorded Time 2445 lisinopri l medicatio n cough Not available Not available 10/17/2021 86766 RxNorm Not Available [facility] 06:25:20 2454 codeine medicatio n cough Not available Not available 10/17/2021 2670 RxNorm Not Available [facility] 06:25:20 Medications Name Sig Start Date Stop Date Status Note LastModified by Organization Details LastModified Time furosemide 40 mg tablet TAKE 1 TABLET BY MOUTH EVERY DAY NEEDED active Not Available Not Available No t Available atorvastatin 20 mg tablet TAKE 1 TABLET BY MOUTH EVERY DAY active Not Available Not Available No t Available Glucagon Emergency Kit 1 mg solution for injection USE 1MG INTRAMUSCUL SEKOU DIRECTED NEEDED active Not Available Not Available No t Available amitriptylin e 75 mg tablet TAKE 2 TABLETS BY MOUTH EVERY NIGHT active Not Available Not Available No t Available melatonin 3 mg tablet TAKE 3 TABLETS BY MOUTH EVERY NIGHT active Not Available Not Available No t Available amlodipine 5 mg tablet TAKE 1 TABLET BY MOUTH DAILY active Not Available Not Available Not Available omeprazole 40 mg capsule,missy yed release TAKE 2 CAPSULES BY MOUTH EVERY DAY active Not Available Not Available No t Available aspirin 81 mg tablet,delay ed release TAKE 1 TABLET BY MOUTH ONCE DAILY active Not Available Not Available No t Available pramipexole 0.5 mg tablet TAKE 1 TABLET BY MOUTH EVERY DAY FOR 7 DAYS active Not Available Not Available No t Available amitriptylin e 25 mg tablet TAKE 2 TABLETS BY MOUTH EVERY NIGHT DIRECTED active Not Available Not Available No t Available Novolog U-100 Insulin aspart 100 unit/mL subcutaneous solution active Not Available Not Available Not Available ibuprofen 600 mg tablet TAKE 1 TABLET BY MOUTH THREE TIMES DAILY NEEDED active Not Available Not Available No t Available polyethylene glycol 3350 17 gram/dose oral powder TAKE 17GRAMS BY MOUTH ONCE DAILY NEEDED active Not Available Not Available No t Available albuterol sulfate HFA 90 mcg/actuatio n aerosol inhaler INHALE 2 PUFFS BY MOUTH EVERY 4 TO 6 HOURS NEEDED active Not Available Not Available No t Available metformin ER 500 mg tablet,exten ded release 24 hr TAKE 4 TABLETS BY MOUTH EVERY DAY active Not Available Not Available No t Available escitalopram 10 mg tablet TAKE 1 TABLET BY MOUTH EVERY DAY active Not Available Not Available No t Available bupropion HCl XL 300 mg 24 hr tablet, extended release TAKE 1 TABLET BY MOUTH EVERY DAY active Not Available Not Available No t Available bupropion HCl XL 150 mg 24 hr tablet, extended release TAKE 1 TABLET BY MOUTH EVERY DAY active Not Available Not Available No t Available valsartan 320 mg-hydrochlo rothiazide 25 mg tablet TAKE 1 TABLET BY MOUTH EVERY DAY active Not Available Not Available No t Available BD Ultra-Fine Short Pen Needle 31 gauge x 5/16 USE 1 NEEDLE SUBCUTANEOU SLY THREE TIMES A DAY active Not Available Not Available Not Available Januvia 100 mg tablet TAKE 1 TABLET BY MOUTH EVERY DAY active Not Available Not Available No t Available Suboxone 8 mg-[address] 1 film every day by sublingual route for 7 days. 2021 active Not Available Not Available Not Avai lable Suboxone 2 mg-0.[address] 2 films every day by sublingual route for 7 days. 2021 active Not Available Not Available Not Avai lable Accu-Chek Rosa Plus test strips USE 1 STRIP VIA METER THREE TIMES A DAY DIRECTED active Not Available Not Available No t Available Accu-Chek Rosa Plus Meter TEST THREE TIMES DAILY active Not Available Not Available Not Available Trulicity 1.5 mg/0.5 mL subcutaneous pen injector ADMINISTER 1.5 MG UNDER THE SKIN 1 TIME A WEEK. START 1 WEEK AFTER 0.75 MG DOSE active Not Available Not Available No t Available Breo Ellipta 200 mcg-25 mcg/dose powder for inhalation INHALE 1 PUFF BY MOUTH EVERY DAY active Not Available Not Available No t Available Tresiba FlexTouch U-200 insulin 200 unit/mL (3 mL) subcutaneous pen ADMINISTER 50 UNITS UNDER THE SKIN TWICE DAILY active Not Available Not Available No t Available Vitals Date Recorded Body height Body temperature Heart rate Oxygen saturation Oxygen saturation in Arterial blood by Pulse oximetry Systolic blood pressure Diastolic blood pressure Provider Name and Address Organization Details Last Updated DateTime 2 157.48 cm 97.1 [degF] 122 /min 92 % 92 % 162 mm[Hg] 82 mm[Hg] [facility] 2 13:21:14 Date Recorded Body height Body temperature Heart rate Oxygen saturation Oxygen saturation in Arterial blood by Pulse oximetry Systolic blood pressure Diastolic blood pressure Provider Name and Address Organization Details Last Updated DateTime 2 157.48 cm 96.9 [degF] 90 /min 91 % 91 % 162 mm[Hg] 82 mm[Hg] [facility] 2 12:48:42 Date Recorded Body height Body temperature Heart rate Oxygen saturation Oxygen saturation in Arterial blood by Pulse oximetry Systolic blood pressure Diastolic blood pressure Provider Name and Address Organization Details Last Updated DateTime 2 157.48 cm 96.4 [degF] 106 /min 94 % 94 % 148 mm[Hg] 78 mm[Hg] [facility] 2 13:42:08 Date Recorded Body height Body temperature Heart rate Oxygen saturation Oxygen saturation in Arterial blood by Pulse oximetry Systolic blood pressure Diastolic blood pressure Provider Name and Address Organization Details Last Updated DateTime 2 157.48 cm 96.6 [degF] 83 /min 99 % 99 % 172 mm[Hg] 98 mm[Hg] [facility] 2 13:36:37 Date Recorded Body height Body temperature Heart rate Oxygen saturation Oxygen saturation in Arterial blood by Pulse oximetry Systolic blood pressure Diastolic blood pressure Provider Name and Address Organization Details Last Updated DateTime 2 157.48 cm 96.4 [degF] 100 /min 97 % 97 % 162 mm[Hg] 82 mm[Hg] [facility] 2 09:43:47 Social History Question Answer Notes LastModified by Organizat ion Details LastModified Time *Housing Stable - Safe Information not available 12/16/2021 *Employment Retired/Disabl ed Information not available 12/16/2021 *Food Adequate Information no t available 12/16/2021 * Not A Information not available 12/16/2021 *Job Training/Educat ion/Literacy Not Needed Information not available 12/16/2021 *Legal Status No Legal Issues Information not available 12/16/2021 *Legal Assistance Not Required Information not available 12/16/2021 *Custody Of Dependent Children N/A Information not available 12/16/2021 *Social Service's Involvement With Dependent Children Not Applicable Information not available 12/16/2021 *Childcare Needed No Information not available 12/16/2021 *Concern For Domestic Violence No Information not available 12/16/2021 *Primary Care Provider Yes Dr. Vargas [facility] Information not available 12/16/2021 *Other Medical Issues Yes - Treated Diabetic, High BP Information not available 12/16/2021 *Social Support Network Has Stable Support System Information not available 12/16/2021 *Transportation Issues No Uses RCT Herself Information not available 12/16/2021 Sex: Unknown Functional Status None recorded. Mental Status None recorded. Family History Nothing Reported. Medical History No medical history recorded. Gynecological HistoryNo gynecological history recorded. Obstetrics History GPAL:G 0 P 0 0 0 0 Past Encounters Encounter ID Performer Location Encounter Start Date Encounter Closed Date Diagnosis/Indication Diagnosis SNOMED-CT Code Diagnosis ICD10 Code [id number] [facility] [address] [facility] [place] [address] 08/26/2021 00:00:00 08/26/2021 14:18:42 [id number] [facility] [address] [facility] [place] [address] 08/19/2021 00:00:00 08/19/2021 14:43:24 [id number] [facility] [address] [facility] [place] [address] 09/24/2021 00:00:00 09/24/2021 13:42:39 [id number] [facility] [address] [facility] [place] [address] 09/17/2021 00:00:00 09/17/2021 14:33:56 [id number] [facility] [address] [facility] [place] [address] 10/01/2021 00:00:00 10/01/2021 13:55:43 [id number] [facility] [address] [facility] [place] [address] 09/02/2021 00:00:00 09/02/2021 13:36:53 [id number] [facility] [address] [facility] [place] [address] 10/15/2021 00:00:00 10/15/2021 10:49:59 [id number] [facility], [employer]PERATIONS DIRECTOR [facility] [address] [facility] [place] [address] 10/22/2021 13:32:17 10/22/2021 13:53:31 Opioid dependence 23721120 F11.20 Essential hypertension 53254888 I10 [id number] [facility], [employer] OPERATIONS DIRECTOR [facility] [address] [facility] [place] [address] 11/05/2021 13:31:36 11/05/2021 14:04:00 Opioid dependence 84778458 F11.20 [id number] [facility], [employer]AL OPERATIONS DIRECTOR [facility] [address] [facility] [place] [address] 11/12/2021 13:32:01 11/12/2021 13:50:44 Opioid dependence 76094666 F11.20 [id number] [facility], [employer]AL OPERATIONS DIRECTOR [facility] [address] [facility] [place] [address] 11/19/2021 13:28:46 11/19/2021 13:50:12 Opioid dependence 26247146 F11.20 [id number] [facility], [employer] OPERATIONS DIRECTOR [facility] [address] [facility] [place] [address] 11/26/2021 13:22:00 11/26/2021 13:33:43 Opioid dependence 08687723 F11.20 [id number] [facility], [employer]IONAL OPERATIONS DIRECTOR [facility] [address] [facility] [place] [address] 12/10/2021 13:24:47 12/10/2021 13:41:04 Opioid dependence 43654921 F11.20 [id number] [facility], [employer]AL OPERATIONS DIRECTOR [facility] [address] [facility] [place] [address] 12/24/2021 13:20:13 12/24/2021 13:37:31 Opioid dependence 89115205 F11.20 [id number] [facility], REGIONAL OPERATIONS DIRECTOR [facility] [address] [facility] [place] [address] 12/31/2021 12:59:42 12/31/2021 13:20:07 Opioid dependence 44882384 F11.20 Restless legs 43973021 G 25.81 [id number] [facility], [employer]PERATIONS DIRECTOR [facility] [address] [facility] [place] [address] 01/07/2022 10:17:53 01/07/2022 10:44:51 Opioid dependence 44029097 F11.20 [id number] [facility], [employer] OPERATIONS DIRECTOR [facility] [address] [facility] [place] [address] 02/18/2022 13:27:58 02/18/2022 13:45:49 Opioid dependence 15563007 F11.20 [id number] [facility], [employer]AL OPERATIONS DIRECTOR [facility] [address] [facility] [place] [address] 01/21/2022 13:13:05 01/21/2022 13:28:10 Opioid dependence 92768870 F11.20 [id number] [facility], REGIONAL OPERATIONS DIRECTOR [facility] [address] [facility] [place] [address] 01/28/2022 13:19:31 01/28/2022 13:28:05 Opioid dependence [id number] F11.20 [id number] [facility], REGIONAL OPERATIONS DIRECTOR [place] [place] [address] [facility] [place] [address] 02/25/2022 13:21:54 02/25/2022 13:40:25 Opioid dependence [id number] F11.20 [id number] [facility], REGIONAL OPERATIONS DIRECTOR [facility] [address] [facility] [place] [address] 03/04/2022 13:13:48 03/04/2022 13:29:11 Opioid dependence [id number] F11.20 [id number] [facility], REGIONAL OPERATIONS DIRECTOR [facility] [address] [facility] [place] [address] 03/11/2022 12:45:57 03/11/2022 13:10:12 Opioid dependence [id number] F11.20 [id number] [facility], REGIONAL OPERATIONS DIRECTOR [facility] [address] [facility] [place] [address] 03/25/2022 13:36:46 03/25/2022 13:50:49 Opioid dependence [id number] F11.20 [id number] [facility], REGIONAL OPERATIONS DIRECTOR [facility] [address] [place] [address],[address] [place] [address] 04/08/2022 13:25:18 04/08/2022 13:47:59 Opioid dependence [id number] F11.20 [id number] Delma Green, REGIONAL OPERATIONS DIRECTOR [facility] [address] [place] [address],[address] [place] [address] 04/22/2022 09:39:24 04/22/2022 10:01:13 Opioid dependence [id number] F11.20 [id number] Dee Thompson [facility] [place] [address] [place] [address],[address] [place] [address] 05/06/2022 11:21:43 05/06/2022 13:21:21 [id number] Dee Thompson [facility] [place] [facility] [address] [place] [address],[address] [place] [address] 05/18/2022 08:54:48 05/18/2022 08:59:21 [id number] Dee Thompson [facility] [place] [facility] [address] [facility] [place] [address] 05/20/2022 11:29:21 05/20/2022 11:32:37 [id number] Dee Thompson [facility] [place] [address] [facility] [place] [address] 06/16/2022 13:49:39 06/16/2022 13:54:40 Health Concerns Section Related Observation LastModified by Organization Detai ls LastModified Time None Recorded Concern Status LastModified by Organization Details LastModified Time None Recorded Advance Directives Directive None Recorded Payers Encounter Date Sequence Insurance Name Policy Number Policy Salmon Covered Member ID Salmon Member ID Guarantor Name 03/04/2022 2 [facility] (MEDICAID) Lea Vasquez [id number] Lea Vasquez 03/04/2022 1 [facility] (MEDICARE REPLACEMENT/A DVANTAGE - PPO) [id number] Lea Vasquez [id number] Lea Vasquez 03/11/2022 2 [facility] (MEDICAID) Lea Vasquez [id number] Lea Vasquez 03/11/2022 1 [facility] (MEDICARE REPLACEMENT/A DVANTAGE - PPO) [id number] Lea Vasquez [id number] Lea Vasquez 03/25/2022 2 [facility] (MEDICAID) Lea Vasquez [id number] Lea Vasquez 03/25/2022 1 [facility] (MEDICARE REPLACEMENT/A DVANTAGE - PPO) [id number] Lea Vasquez [id number] Lea Vasquez 04/08/2022 2 [facility] (MEDICAID) Lea Vasquez [id number] Lea Vasquez 04/08/2022 1 [facility] (MEDICARE REPLACEMENT/A DVANTAGE - PPO) [id number] Lea Vasquez [id number] Lea Vasquez 04/22/2022 2 [facility] (MEDICAID) Lea Vasquez [id number] Lea Vasquez 04/22/2022 1 [facility] (MEDICARE REPLACEMENT/A DVANTAGE - PPO) [id number] Lea Vasquez [id number] Lea Vasquez Notes Date Note Type Note Provider Name and Address Organization Details Recorded Time 03/04/2022 text/html This patient is here today for their follow-up MAT visit. They are being treated for OUD with buprenorphine PLEASE SEE A & P SECTION FOR FULL VISIT NOTE Mary Carmen Friedman NP [address] [place] [address], [address], [facility] [employer] 03/04/2022 14:00:30 03/11/2022 text/html This patient is here today for their follow-up MAT visit. They are being treated for OUD with buprenorphine PLEASE SEE A & P SECTION FOR FULL VISIT NOTE Mary Carmen Friedman NP [address] [place], [address], [facility] [employer] [facility] 03/11/2022 13:32:58 03/25/2022 text/html This patient is here today for their follow-up MAT visit. They are being treated for OUD with buprenorphine PLEASE SEE A & P SECTION FOR FULL VISIT NOTE Mary Carmen Friedman NP [address] [place], [address], [facility] [employer] [facility] 03/25/2022 14:12:31 04/08/2022 text/html This patient is here today for their follow-up MAT visit. They are being treated for OUD with buprenorphine PLEASE SEE A & P SECTION FOR FULL VISIT NOTE Mary Carmen Friedman NP [address] [place], [address], [facility] [employer] [facility] 04/08/2022 13:57:35 04/22/2022 text/html This patient is here today for their follow-up MAT visit. They are being treated for OUD with buprenorphine. PLEASE SEE A & P SECTION FOR FULL VISIT NOTE Delma Green NP [address] [place], [address], [facility] [employer] [facility] 04/22/2022 10:07:31 OBGyn Episode No OBEpisode recorded.
--- OUTSIDE RECORDS SUMMARY | 2024-10-19 21:13 | XMS_ITS | Data Portability ---
Author Organization [place] - [facility], [facility] Address Sebastián Parker [facility] [place] [address] Care Team Providers Care Sap Treasury Consultant Name Role Phone [facility] OPHTHALMOLOGY [facility] Ophtha lmologist Assessment Encounter Date Assessment Date Assessment LastModified by Organization Details LastModified Time 09/01/2024 09/01/2024 Cataracts and Retinal Issues - Assessment: Patient has missed several appointments for eye treatment due to scheduling conflicts. An upcoming appointment is scheduled for March 27 for cataract surgery measurement, following the administration of necessary pre-surgery injections. - Plan: a. Encourage patient to attend the upcoming cataract surgery measurement appointment. Diabetic Foot Care - Assessment: Patient reports no current sores but requires toenail trimming. She is under the care of a animal humane agent supervisor at [facility], Elbert Oliver. - Plan: a. Encourage patient to schedule an appointment for toenail trimming and routine foot care with her animal humane agent supervisor. COPD and Shortness of Breath - Assessment: Patient experiences increased shortness of breath and currently uses albuterol. She has a refill for Breo and expresses interest in trying Trelegy. - Plan: a. Prescribe Trelegy and send the prescription to [facility]. b. Advise patient to continue using Breo as prescribed. c. Schedule a follow-up in one month to monitor breathing and lung function. Sleep Apnea - Assessment: Patient reports symptoms indicative of sleep apnea, including mouth breathing, gasping for air, and waking abruptly due to breathing difficulties. - Plan: a. Refer patient for a sleep study at [facility] to assess for sleep apnea and evaluate the need for CPAP therapy. High Blood Pressure - Assessment: Patient has discontinued blood pressure medication for two weeks, experiencing shortness of breath as a result. - Plan: a. Encourage patient to resume blood pressure medication and monitor blood pressure regularly. b. Reevaluate blood pressure control at a follow-up appointment in one month. Weight Loss - Assessment: Patient reports losing 7 pounds since the last visit a few months ago. - Plan: a. Monitor weight at next appointment in one month and assess for any further changes. Rash on Back - Assessment: Patient describes an itchy, stinging rash on her back, which she has been scratching. - Plan: a. Prescribe a topical cream for the rash and instruct patient on its application. b. Advise patient to avoid scratching and monitor for signs of infection. Assistance with Daily Activities and Meals - Assessment: Patient is considering enrolling in the [employer] program and Meals on Wheels due to difficulties with daily activities and cooking, exacerbated by her visual impairment. - Plan: a. Provide information on the [facility] and the food pantry. b. Encourage patient to sign up for assistance programs and Meals on Wheels. Follow-up - Plan: a. Schedule a follow-up appointment in one month to reevaluate patient's breathing, blood pressure, weight, and overall health. b. Complete pap smear and mammogram at the follow-up appointment. Will need complete labs done at that time as well. The total time devoted to today's encounter, including both the xxsr-jz-yhab time with the patient and/or family/caregiver and ozz-sxsm-cw-face time I personally spent is 40 minutes. Not available 09/01/2024 16:11:48 10/06/2024 10/06/2024 Patient presente d to office today for their Medicare Annual Wellness Visit. Education was provided on healthy nutrition, including a diet rich in fruits and vegetables, minimizing simple carbohydrates, salt, and saturated fats. Encouraged regular cardiovascular exercise such as walking at least 30 minutes daily, 5 times per week. Emphasized preventive health measures and educated pt on fall prevention and community-based lifestyle interventions to help reduce health risks and promote healthy living. Personalized prevention plan (PPP) completed and reviewed with patient. Patient was given written copy of PPP at conclusion of visit, detailing prior screening and 5-10 year future screening plan including: screenings for breast cancer and colorectal cancer, immunizations, and other age appropriate screenings consistent with USPSTF and ACIP guidelines. Hepatitis C with Cirrhosis - Assessment: Patient has chronic untreated hepatitis C with cirrhosis. An ultrasound is needed to determine the degree of cirrhosis before Hepatitis C medication can be approved. The patient has not had a viral load test recently. - Plan: a. Order liver ultrasound at [facility]. b. Perform Hepatitis C viral load test. c. Pending ultrasound results, consider initiating Hepatitis C treatment: - Option 1: Four pills once daily for 8 weeks. - Option 2: One pill once daily for 12 weeks. d. Educate patient on the importance of medication adherence to prevent viral resistance. e. Arrange follow-up in approximately one month to discuss treatment initiation. Asthma with COPD - Assessment: Patient has been using an old albuterol inhaler for asthma management. Lungs are a little squeaky but still regular. There have been insurance issues with obtaining Trelegy, now resolved with a $35 copay. - Plan: a. Assist patient in obtaining Trelegy with reduced copay. b. Consider updating asthma action plan. c. Educate on proper inhaler technique and the importance of using prescribed medications. Preventive Care - Plan: a. Order mammogram. b. Complete Medicare wellness visit requirements. c. Provide patient with a document listing completed preventive services. [email or web address] Not available 10/06/2024 15:38:27 10/19/2024 10/19/2024 The total time devoted to today's encounter, including both the edsb-xy-xqpv time with the patient and/or family/caregiver and uhz-lusm-iq-face time I personally spent is 120 minutes. [email or web address] Not available 10/19/2024 17:04:21 Plan of Treatment Reminders Order Date Submit Date Provider Last Modified By Organization Details Last Modified Time Details Appointments hospital follow up 2024 03:00P M BARNEY HENDERSON Not available Not available Not available Nurse Visit 2024 01:00P M [place] [facility] Not available Not available Not available Follow Up 2024 01:50P M BARNEY HENDERSON Not available Not available Not available Follow Up 2024 02:30P M BARNEY HENDERSON Not available Not available Not available Lab hemoglobi n A1C, fingersti ck 2023 024 [email or web address] [facility], [address] [place], [address], 11/04/2023 10:11:50 hemoglobi n A1C, fingersti ck [address], [address] [place] [address], [phone], 03/06/2024 11:01:29 hemoglobi n A1C, fingersti ck [address], [address] [place] [address], [phone], 09/02/2024 08:08:00 CMP, serum or plasma 2023 024 [facility] (Registration ), [address] [place] [address] [place], [address], 10/06/2024 23:19:49 CBC w/ auto diff 2023 024 [facility] (Registration ), [address] [place] [address] [place], [address], 10/06/2024 23:05:50 hepatitis C virus RNA, quant, PCR, serum or plasma 2023 024 [facility] (Registration ), [address] [place] [address] [place], [address], 10/10/2024 09:29:40 lipid panel, serum 2023 024 [email or web address] [facility] (Registration ), [address] [place] [address] [place], [address], 10/10/2024 09:29:20 venipunct ure 2024 025 [email or web address] [facility] (Registration ), [address] [place] [address] [place], [address], 10/19/2024 16:45:03 Referral ophthalmo logist referral - pt with long-landon ding poorly controlle d DM2 (recently improved A1C) with known retinopat hy, last eye exam in 2018, now legally blind; needs urgent eval. 2023 024 diane Monroy MD, [address], [address], [place], [address], 11/29/2023 15:42:38 pantomimist referral - pt known to you i believe, a1c up to 10.8, see OV note 2023 [email or web address], [address] , [place], [address], 07/13/2024 11:21:06 podiatris t referral - needs f/u with Dr. Oliver for diabetic foot callous 2023 024 [email or web address] [facility], [address] [place] [address], [address], 08/09/2024 15:05:12 podiatris t referral - well known to Dr. Valentino , (over)due for nail/foot care adn general f/u. 2023 024 [email or web address] [facility], [address] [place] [address], [address], 10/16/2024 04:49:35 sleep medicine referral - witnessed nocturnal apnea, pt with obesity, COPD, chronic opioid dependenc e; eval for central vs obstructi ve sleep apnea 2023 024 conner n21 [facility], [address] [place] [address] , [place], [address], 10/05/2024 06:58:37 physical therapist referral - generaliz ed weakness/ deconditi oning related to cirrhosis , diabetic neuropath y and visual impairmen t. would like to work on general strengthe lynnette and balance. 2023 [address] [facility], [address] [place] [address], [address], 10/06/2024 15:55:22 nephrolog ist referral - thank you for agreeing to see her soon. labs and renal u/s have been ordered and hope to have results to you soon. new dx stage 5 CKD. 2024 025 [email or web address] Azul Fam MD, [address] [place], [address], 10/19/2024 17:04:04 Procedures None recorded. Surgeries None recorded. Imaging US, liver - known cirrhosis , assess degree of fibrosis for Hep C treatment 2023 024 [facility], [address] [place] [address], [address], 10/06/2024 15:45:26 US, kidney - CHELSEA; pt with stage 5 CKD, need to prepare for possible dialysis. cc results to Dr. Fam, [facility] nephrolog y 2024 025 [facility], [address] [place] [address], [address], 10/19/2024 16:10:29 Medication Orders Accu-Chek Guide test strips 2023 024 [email or web address] Not available 11/03/2023 14:56:40 melatonin 3 mg tablet 2023 024 [email or web address] Not available 11/03/2023 14:56:40 Breo Ellipta 200 mcg-25 mcg/dose powder for inhalatio n 2023 024 [email or web address] Not available 11/03/2023 14:56:40 Diovan HCT 320 mg-25 mg tablet 2023 024 [email or web address] Not available 10/19/2024 11:44:45 Trelegy Ellipta 200 mcg-62.5 mcg-25 mcg powder for inhalatio n 2023 [email or web address] [facility] [address], [address], [place], [address], 10/06/2024 14:45:17 atorvasta tin 40 mg tablet 2023 024 [email or web address] [facility] [address], [address], [place], [address], 09/02/2024 08:08:00 escitalop karlo 10 mg tablet 2023 024 [email or web address] [facility] [address], [address], [place], [address], 10/19/2024 11:43:11 omeprazol e 40 mg capsule,d elayed release 2023 024 [email or web address] [facility] [address], [address], [place], [address], 09/02/2024 08:08:00 amlodipin e 5 mg tablet 2023 024 [email or web address] [facility] [address], [address], [place], [address], 09/02/2024 08:08:00 Diovan HCT 320 mg-25 mg tablet 2023 024 KATHE [facility] [address], [address], [place], [address], 10/19/2024 11:44:52 amitripty line 25 mg tablet 2023 024 [email or web address] [facility] [address], [address], [place], [address], 09/02/2024 08:08:00 Tresiba FlexTouch U-200 insulin 200 unit/mL (3 mL) subcutane ous pen 2023 024 [email or web address] [address], [address], [place], [address], 10/19/2024 11:50:52 metformin ER 500 mg tablet,ex tended release 24 hr 2023 024 [email or web address] [address], [address], [place], [address], 10/19/2024 11:51:21 Accu-Chek Guide test strips 2023 024 [email or web address] [employer] [address], [address], [place], [address], 09/02/2024 08:08:00 Glucagon (HCl) Emergency Kit 1 mg solution for injection 2023 024 [email or web address] [address], [address], [place], [address], 10/06/2024 15:38:32 Breo Ellipta 200 mcg-25 mcg/dose powder for inhalatio n 2023 024 [email or web address] [address], [address], [place], [address], 10/06/2024 15:38:32 Patient TargetsNo targets recorded. Patient Instructions Encounter Date Encounter Id Patient Instructions Last Modified By Organization Details Last Modified Time 11/03/2023 [id number] hepatitis C: car e instructions Not available 11/04/2023 10:11:47 03/06/2024 [id number] - Increase Tresi ba to 45units twice daily and monitor blood sugar. - Work on regaining control of diet and activity levels to manage blood sugar and weight - Attend scheduled eye surgeries and follow post-surgery care instructions - Follow up with a pantomimist for additional support in managing blood sugar levels - Schedule a follow-up visit in three months to assess progress in managing diabetes and weight [email or web address] Not available 03/06/2024 16:39:46 09/01/2024 [id number] advised to quit smoking [email or web address] Not available 09/01/2024 16:09:15 Dear Lea, Thank you for visiting us today. We appreciate your commitment to improving your health and are here to support you in this journey. Here is a summary of the prado instructions from today's consultation: - Medications: - Continue using Albuterol as needed. - Replace Breo with Treledy inhaler as prescribed. - Ask [facility] to deliver your medications in future to avoid running out. - Appointments and Tests: - Cataract surgery measurement scheduled for March 27. - Follow-up appointment in one month to re-evaluate your condition once back on medications. - Sleep study referral to [facility] for sleep apnea evaluation. - Contact [facility] for toenail trimming appointment. - Stool sample test and mammogram to be scheduled after Wednesday. - Lifestyle Adjustments: - Continue efforts to reduce smoking. - Ensure proper diet and manage meal preparations, possibly with assistance from Meals on Wheels. - Support Services: - Contact [facility] for assistance with visual impairment. - Utilize the mini food pantry as needed. - Additional Notes: - Monitor and manage blood pressure to avoid complications. - Keep an eye on breathing issues and discuss any changes during follow-up. Please feel free to reach out if you have any questions or need further assistance. We look forward to seeing you again and wish you the best in your health endeavors. Warm regards, Barney Henderson MD Family Medicine [email or web address] Not available 09/01/2024 16:11:10 10/06/2024 [id number] Date: WedOct 06 2024 Dear Lea, Thank you for visiting us today. We appreciate your commitment to improving your health and managing your conditions effectively. Here's a summary of our discussion and the next steps for your treatment plan: - Blood Work: Complete tests for liver function, kidney function, cholesterol, and Hep C viral load. 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 - Ultrasound: Schedule an ultrasound of your liver at [facility] to assess the degree of cirrhosis. - Hep C Treatment: Two medication options were discussed. The preferred regimen is one pill daily for 12 weeks. It is VERY IMPORTANT to take this medication consistently and not miss any doses (to avoid resistance/treatment failure). - Physical Therapy: A referral has been made for physical therapy for general strengthening, balance, and confidence building. - Additional Support: Engage with the [facility] and Meals on Wheels programs as discussed. - Follow-Up: Schedule a follow-up appointment in about a month to potentially start Hep C treatment or for a general check-up. Please ensure to follow through with these plans to optimize your health outcomes. If you have any questions or need further assistance, feel free to contact our office. Wishing you a Merry [place] and a Happy New Year! Best regards, Dr. Barney Henderson MD Family Medicine [email or web address] Not available 10/06/2024 15:38:01 Discussed and explained advance directives such as standard forms to the {{patient caregiver pa tient and caregiver}}. Face to face discussion lasted for a duration of ___ minutes. [email or web address] Not available 10/05/2024 17:30:53 10/19/2024 [id number] Dear Lea, Thank you for coming in [...] Best regards, Barney Henderson MD Family Medicine [email or web address] Not available 10/19/2024 15:22:00 Reason for Referral Fabricator Foam Rubber Referral for Visual impairment pt with long-standing poorly controlled DM2 (recently improved A1C) with known retinopathy, last eye exam in 2018, now legally blind; needs urgent eval. Referring Physician: Barney Henderson Family Medicine, Encounter Date: 11/03/2023 Box Tender Referral f or Type 2 diabetes mellitus pt known to you i believe, a1c up to 10.8, see OV note Referring Physician: Family Darcy Bolivar, Encounter Date: 03/06/2024 Staffing Consultant Referral for Neur opathy due to type 2 diabetes mellitus needs f/u with Dr. Oliver for diabetic foot callous Referring Physician: Family Darcy Bolivar, Encounter Date: 03/06/2024 Sleep Medicine Referral for Sleep apnea witnessed nocturnal apnea, pt with obesity, COPD, chronic opioid dependence; eval for central vs obstructive sleep apnea Referring Physician: Family Darcy Bolivar, Encounter Date: 09/01/2024 Staffing Consultant Referral for Toen ail thickened well known to Dr. Valentino, (over)due for nail/foot care adn general f/u. Referring Physician: Family Darcy Bolivar, Encounter Date: 09/01/2024 Physical Therapist Referral for Muscle weakness generalized weakness/deconditioning related to cirrhosis, diabetic neuropathy and visual impairment. would like to work on general strengthening and balance. Referring Physician: Family Darcy Bolivar, Encounter Date: 10/06/2024 Dairy Department Manager Referral for Re nal failure syndrome thank you for agreeing to see her soon. labs and renal u/s have been ordered and hope to have results to you soon. new dx stage 5 CKD. Referring Physician: Family Darcy Bolivar, Encounter Date: 10/19/2024 Results Created Date Observation Date Name Description Value Unit Range Abnormal Flag Note LastModifiedBy Organization Detail LastModifiedTime 11/03/19 24 11/03/2023 hemog lobin A1C, finge rstic k HGBA1C 7.2 % <5.7 Not Available [address], [place], [address], 11/03/2023 13:48:40 03/06/20 24 03/06/2024 hemog lobin A1C, finge rstic k hemoglobin A1C 10.8 % <5.7 Not Available [facility] [address] [place], [address], 03/06/2024 10:50:56 09/01/20 24 09/01/2024 hemog lobin A1C, finge rstic k hemoglobin A1C 6.6 % <5.7 Not Available [facility] [address] [place], [address], 09/01/2024 15:49:53 10/06/20 24 10/06/2024 COMPL ETE BLOOD COUNT W/DIF F WBC 16.37 10_3/ uL 4.4-10 .8 high Not Available [address] [place] [address] [place], [address] 10/06/2024 23:05:49 10/06/20 24 10/06/2024 COMPL ETE BLOOD COUNT W/DIF F RBC 4.23 10_6/ uL 3.93-5 .22 normal Not Available [address] [place] [address] [facility] [place], [address] 10/06/2024 23:05:49 10/06/20 24 10/06/2024 COMPL ETE BLOOD COUNT W/DIF F HGB 11.7 g/dL 11.2-1 5.7 normal Not Available [address] [place] [address] [place], [address] 10/06/2024 23:05:49 10/06/20 24 10/06/2024 COMPL ETE BLOOD COUNT W/DIF F HCT 38.0 % 36.0-4 6.0 normal Not Available [address] [place] [address] [place], [address] 10/06/2024 23:05:49 10/06/20 24 10/06/2024 COMPL ETE BLOOD COUNT W/DIF F MCV 90 fL 80-95 normal Not Available [facility] [address] [place], [address] 10/06/2024 23:05:49 10/06/20 24 10/06/2024 COMPL ETE BLOOD COUNT W/DIF F MCH 27.7 pg 27.0-3 3.0 normal Not Available [address] [place] [address] [place], [address] 10/06/2024 23:05:49 10/06/20 24 10/06/2024 COMPL ETE BLOOD COUNT W/DIF F MCHC 30.8 % 32.0-3 6.0 low Not Available [address] [place] [address] [place], [address] 10/06/2024 23:05:49 10/06/20 24 10/06/2024 COMPL ETE BLOOD COUNT W/DIF F RDW 14.1 % 11.7-1 4.6 normal Not Available [address] [place] [address] [place], [address] 10/06/2024 23:05:49 10/06/20 24 10/06/2024 COMPL ETE BLOOD COUNT W/DIF F platelet count 522 10_3/ uL 130-40 0 high Not Available [address] [place] [address] [place], [address] 10/06/2024 23:05:49 10/06/20 24 10/06/2024 COMPL ETE BLOOD COUNT W/DIF F MPV 10.0 fL 8.0-11 .0 normal Not Available [address] [place] [address] [place], [address] 10/06/2024 23:05:49 10/06/20 24 10/06/2024 COMPL ETE BLOOD COUNT W/DIF F neutrophils % 60.7 % Not Available [address] [place], [address] 10/06/2024 23:05:49 10/06/20 24 10/06/2024 COMPL ETE BLOOD COUNT W/DIF F lymphocytes % 30.1 % Not Available [facility] [address] [place], [address] 10/06/2024 23:05:49 10/06/20 24 10/06/2024 COMPL ETE BLOOD COUNT W/DIF F monocytes % 5.2 % Not Available [address] [place], [address] 10/06/2024 23:05:49 10/06/20 24 10/06/2024 COMPL ETE BLOOD COUNT W/DIF F eosinophils % 2.7 % Not Available [address] [place], [address] 10/06/2024 23:05:49 10/06/20 24 10/06/2024 COMPL ETE BLOOD COUNT W/DIF F basophils % 0.7 % Not Available [address] [place], [address] 10/06/2024 23:05:49 10/06/20 24 10/06/2024 COMPL ETE BLOOD COUNT W/DIF F immature grans % 0.6 % Not Available [address] [place], [address] 10/06/2024 23:05:49 10/06/20 24 10/06/2024 COMPL ETE BLOOD COUNT W/DIF F nucleated RBC 0.0 % 0.0-0. 3 normal Not Available [address] [place], [address] 10/06/2024 23:05:49 10/06/20 24 10/06/2024 COMPL ETE BLOOD COUNT W/DIF F absolute neutrophil count 9.94 10_3/ uL 1.2-6. 7 high Not Available [address] [place], [address] 10/06/2024 23:05:49 10/06/20 24 10/06/2024 COMPL ETE BLOOD COUNT W/DIF F absolute lymphocyte count 4.93 10_3/ uL 1.2-3. 4 high Not Available [address] [place], [address] 10/06/2024 23:05:49 10/06/20 24 10/06/2024 COMPL ETE BLOOD COUNT W/DIF F absolute monocyte count 0.85 10_3/ uL 0.1-0. 8 high Not Available [address] [place], [address] 10/06/2024 23:05:49 10/06/20 24 10/06/2024 COMPL ETE BLOOD COUNT W/DIF F absolute eosinophil count 0.44 10_3/ uL 0.0-0. 7 normal Not Available [address] [place], [address] 10/06/2024 23:05:49 10/06/20 24 10/06/2024 COMPL ETE BLOOD COUNT W/DIF F absolute basophil count 0.11 10_3/ uL 0.0-0. 2 normal Not Available [address] [place], [address] 10/06/2024 23:05:49 10/06/20 24 10/06/[address] METAB OLIC PANEL calcium 8.7 mg/dL 8.5-10 .1 normal Not Available [address] [place], [address] 10/06/2024 23:19:49 10/06/20 24 10/06/[address] METAB OLIC PANEL glucose 175 mg/dL 74-106 high Not Available [facility] [address] [place], [address] 10/06/2024 23:19:49 10/06/20 24 10/06/[address] METAB OLIC PANEL BUN 69 mg/dL 7-18 high Not Available [employer] [address] [place], [address] 10/06/2024 23:19:49 10/06/20 24 10/06/[address] METAB OLIC PANEL creatinine 6.2 mg/dL 0.55-1 .02 panic high Criti ting value repor curtis to and leigh ack from [facility]efer [facility] at 2309 10/06 by LAB.M ARC Not Available [address] [place], [address] 10/06/2024 23:19:49 10/06/20 24 10/06/[address] METAB OLIC PANEL estimated GFR 7.73 mL/min /1.73M 2 The eGFR is calcu lated from a serum creat inine using the CKD-E PI 2020 equat ion. Other varia bles requi red for the equat ion are gende r and age; this equat ion does not inclu de a race coeff icien t. This equat ion has simil ar overa ll perfo rmanc e to previ ous equat ions excep t value s may diffe r, in parti cular , in patie nts with highe r value s of eGFR and young er-ag ed adult s. Not Available [address] [place], [address] 10/06/2024 23:19:49 10/06/20 24 10/06/[address] METAB OLIC PANEL total protein 8.1 g/dL 6.4-8. 2 normal Not Available [address] [place], [address] 10/06/2024 23:19:49 10/06/20 24 10/06/[address] METAB OLIC PANEL albumin 2.8 g/dL 3.4-5. 0 low Not Available [address] [place], [address] 10/06/2024 23:19:49 10/06/20 24 10/06/[address] METAB OLIC PANEL bilirubin, total 0.19 mg/dL 0.2-1. 0 low Not Available [address] [place], [address] 10/06/2024 23:19:49 10/06/20 24 10/06/[address] METAB OLIC PANEL alk phos 165 U/L 46-116 high Not Available [address] [place], [address] 10/06/2024 23:19:49 10/06/20 24 10/06/[address] METAB OLIC PANEL sodium 141 mmol/ L 136-14 5 normal Not Available [address] [place], [address] 10/06/2024 23:19:49 10/06/20 24 10/06/[address] METAB OLIC PANEL potassium 4.5 mmol/ L 3.5-5. 1 normal Not Available [address] [place], [address] 10/06/2024 23:19:49 10/06/20 24 10/06/[address] METAB OLIC PANEL chloride 106 mmol/ L 98-107 normal Not Available [address] [place], [address] 10/06/2024 23:19:49 10/06/20 24 10/06/[address] METAB OLIC PANEL CO2 23.7 mmol/ L 21.0-3 2.0 normal Not Available [address] [place], [address] 10/06/2024 23:19:49 10/06/20 24 10/06/[address] METAB OLIC PANEL anion gap 11.3 mmol/ L 3-11 high Not Available [address] [place], [address] 10/06/2024 23:19:49 10/06/20 24 10/06/[address] METAB OLIC PANEL AST 17 U/L 15-37 normal Not Available [address] [place], [address] 10/06/2024 23:19:49 10/06/20 24 10/06/[address] METAB OLIC PANEL ALT 14 U/L 14-59 normal Not Available [address] [place], [address] 10/06/2024 23:19:49 10/06/20 24 10/06/2024 LIPID 2 cholesterol 144 mg/dL <200 Not Available [address] [place], [address] 10/06/2024 23:19:50 10/06/20 24 10/06/2024 LIPID 2 triglyceride 145 mg/dL <150 Not Available [address] [place], [address] 10/06/2024 23:19:50 10/06/20 24 10/06/2024 LIPID 2 HDL cholesterol 48 mg/dL 40-60 Not Available An[address]bal [address] [place], [address] 10/06/2024 23:19:50 10/06/20 24 10/06/2024 LIPID 2 calculated LDL 67 mg/dL <100 Natio nal Kelly stero l Educa tion Progr am (NCEP -ATPI II) class ifica tions : Kelly stero l <200 mg/dL Ronaldo able Kelly stero l 200-2 39 mg/dL Bor[place] rline High Kelly stero l >or=2 40 mg/dL High HDL <40 mg/dL Low HDL >or=6 0 mg/dL High LDL <100 mg/dL Optim al LDL 100-1 29 mg/dL Near Optim al/Ab ove Optim al LDL 130-1 59 mg/dL Borde rline High LDL 160-1 89 mg/dL High LDL >or=1 90 mg/dL Very High *The above refer ence range is for adult s 18 years or older . Not Available [address] [place], [address] 10/06/2024 23:19:50 10/06/20 24 10/09/2024 HCV RNA DETEC TION QUANT ITATI VE HCV RNA qualitative Detect ed undete cted abnormal Not Available [address] [place], [address] 10/09/2024 12:33:52 10/06/20 24 10/09/2024 HCV RNA DETEC TION QUANT ITATI VE HCV RNA detection quantitative [id number] 0 IU/mL undete cted abnormal The quant ifica tion range of this assay is 15 IU/mL to 100,0 00,00 0 IU/mL . Testi ng was perfo rmed using the Pili HCV test ([employer] with the pili 6800 Syste m. Test perfo rmed or refer red by [facility] [address] [place] [address] Not Available [address] [place], [address] 10/09/2024 12:33:52 10/07/20 24 10/07/2024 NOVA GLUCO SE FINGE R HEEL CAPIL LEON glucose cap 148 mg/dL 70 - 116 high Not Available [facility] (Lab) [address] [place], [address], 10/07/2024 20:01:20 10/07/20 24 10/07/2024 NOVA GLUCO SE FINGE R HEEL CAPIL LEON glucose cap 181 mg/dL 70 - 116 high Not Available [facility] (Lab) [address] [place] [address], [address], 10/07/2024 17:16:15 10/07/20 24 10/07/2024 LACTI C ACID lactic acid 2.6 mmol/ L 0.7 - 2.1 high Not Available [facility] (Lab) [address] [place] [address], 524[address], 10/07/2024 15:09:08 10/07/20 24 10/08/2024 CULT URINE CULTU RE* cult urine culture* URINE CULTU RE Not Available [facility] (Lab) [address] [place] [address], 886[address], 10/08/2024 12:36:59 10/07/20 24 10/08/2024 CULT URINE CULTU RE* collection mode: CLEAN CATCH Micro biolo gy Speci men Sourc e Urine Colle ction Date 10/07 Speci men Note: URINE Colle ction Time 13:41 Exam Id. No: [id number] Recei pt Date 10/07 ----- ----- ----- ----- ----- ----- ----- ----- ----- ----- ----- ----- ----- ----- ----- ----- Organ ism # 1: Mixed Gram Posit court and Gram Negat court Growt h (mix) CC= >100, 000 CFU/m L 10/08.1 236.T S . 10/08.1 236.T S .COMP LETE Not Available [facility] (Lab) [address] [place] [address], 33[address], 10/08/2024 12:36:59 10/07/20 24 10/07/2024 CPK SERUM TOTAL * CPK 60 U/L 30 - 135 Not Available [facility] (Lab) [address] [place] [address], 26088, 10/07/2024 14:45:10 10/07/20 24 10/07/2024 CPK SERUM TOTAL * specimen seq. ADM. Not Available [facility] (Lab) [address] [place] [address], 56827, 10/07/2024 14:45:10 10/07/20 24 10/07/2024 MAGNE SIUM SERUM * magnesium 1.2 mg/dL 1.6 - 2.3 low Not Available [facility] (Lab) [address] [place] [address], 41587, 10/07/2024 14:45:08 10/07/20 24 10/07/[address] PROTE IN HIGH SENSI TIVIT Y* CRP-high sens. 15.91 mg/L 0.00 - 3.00 high Less Risk: <1.0 mg/L [place] ge Risk: 1.0-3 .0 mg/L High Risk: >3.0 mg/L Indet ermin ate: >10.0 mg/L Not Available [facility] (Lab) [address] [place] [address], 38084, 10/07/2024 14:45:07 10/07/20 24 10/07/[address] METAB OLIC PANEL (CMP) glucose 189 mg/dL 70 - 116 high Not Available [facility] (Lab) [address] [place] [address], 974[address], 10/07/2024 14:45:05 10/07/20 24 10/07/[address] METAB OLIC PANEL (CMP) BUN 64 mg/dL 7 - 17 high Not Available [facility] (Lab) [address] [place] [address], 39[address], 10/07/2024 14:45:05 10/07/20 24 10/07/2024 COMPR EHENS CORUT METAB OLIC PANEL (CMP) creatinine 6.40 mg/dL 0.52 - 1.04 high Not Available [facility] (Lab) [address] [place] [address], 67327, 10/07/2024 14:45:05 10/07/20 24 10/07/[address] METAB OLIC PANEL (CMP) sodium serum 141 mmol/ L 136 - 145 Not Available [facility] (Lab) [address] [place], [address], 10/07/2024 14:45:05 10/07/20 24 10/07/[address] METAB OLIC PANEL (CMP) potassium serum 4.3 mmol/ L 3.4 - 5.2 Not Available [facility] (Lab) [address] [place], [address], 10/07/2024 14:45:05 10/07/20 24 10/07/[address] METAB OLIC PANEL (CMP) chloride serum 107 mmol/ L 98 - 107 Not Available [facility] (Lab) [address] [place] [address], 676[address], 10/07/2024 14:45:05 10/07/20 24 10/07/[address] METAB OLIC PANEL (CMP) carbon dioxide (co2) 22 mmol/ L 22 - 30 Not Available [facility] (Lab) [address] [place] [address], 07945, 10/07/2024 14:45:05 10/07/20 24 10/07/[address] METAB OLIC PANEL (CMP) anion gap 12.2 mmol/ L Not Available [facility] (Lab) [address] [place] [address], 086[address], 10/07/2024 14:45:05 10/07/20 24 10/07/[address] METAB OLIC PANEL (CMP) calcium serum 8.5 mg/dL 8.4 - 10.2 Not Available [facility] (Lab) [address] [place] [address], 81244, 10/07/2024 14:45:05 10/07/20 24 10/07/[address] METAB OLIC PANEL (CMP) bilirubin total 0.2 mg/dL 0.2 - 1.3 Not Available [facility] (Lab) [address] [place], [address], 10/07/2024 14:45:05 10/07/20 24 10/07/[address] METAB OLIC PANEL (CMP) alk. phos. 133 U/L 38 - 126 high Not Available [facility] (Lab) [address] [place] [address], 76967, 10/07/2024 14:45:05 10/07/20 24 10/07/[address] METAB OLIC PANEL (CMP) SGOT (AST) 31 U/L 14 - 36 Not Available [facility] ([facility]) [address] [place] [address], 378[address], 10/07/2024 14:45:05 10/07/20 24 10/07/[address] METAB OLIC PANEL (CMP) SGPT (ALT) 20 U/L 4 - 35 Not Available [facility] (Lab) [address] [place] [address], 63961, 10/07/2024 14:45:05 10/07/20 24 10/07/[address] METAB OLIC PANEL (CMP) total protein 8.1 gm/dL 6.0 - 8.0 high Not Available [facility] (Lab) [address] [place] [address], 97075, 10/07/2024 14:45:05 10/07/20 24 10/07/[address] METAB OLIC PANEL (CMP) albumin 3.9 gm/dL 3.4 - 5.0 Not Available [facility] (Lab) [address] [place] [address], 58375, 10/07/2024 14:45:05 10/07/20 24 10/07/[address] METAB OLIC PANEL (CMP) age 49 years Not Available [facility] (Lab) [address] [place] [address], 80291, 10/07/2024 14:45:05 10/07/20 24 10/07/[address] METAB OLIC PANEL (CMP) eGFR (non-afr.narayan r.) 7 mL/mi n Not Available [facility] (Lab) [address] [place] [address], 87685, 10/07/2024 14:45:05 10/07/20 24 10/07/[address] METAB OLIC PANEL (CMP) eGFR (afr-aliya n) 8 mL/mi n eGFR <60 ml/mi n for >=3 month s is indic ative of chron ic kidne y The eGFR calcu lated using the MDRD Study equat ion is valid ated non hospi taliz ed patie nts 18 to 70 years of age and is not rep patie nts less than 18 years of age. Not Available [facility] (Lab) [address] [place] [address], 21446, 10/07/2024 14:45:05 10/07/20 24 10/07/2024 SED RATE* sed. rate 79 mm/HR 0 - 20 high Not Available [facility] (Lab) [address] [place] [address], 16162, 10/07/2024 14:43:05 10/07/20 24 10/07/2024 DRUG SCN 13 PANEL (MEDT OX)* drug scn 13 panel (medtox)* URINE DRUG SCREE N (13 DRUGS ) Not Available [facility] (Lab) [address] [place], [address], 10/07/2024 14:36:04 10/07/20 24 10/07/2024 DRUG SCN 13 PANEL (MEDT OX)* cannabinoids NEGATI VE cutoff = 50 NG/mL Not Available [facility] (Lab) [address] [place] [address], 71022, 10/07/2024 14:36:04 10/07/20 24 10/07/2024 DRUG SCN 13 PANEL (MEDT OX)* phencyclidin e NEGATI VE cutoff = 25 NG/mL Not Available [facility] (Lab) [address] [place] [address], 61139, 10/07/2024 14:36:04 10/07/20 24 10/07/2024 DRUG SCN 13 PANEL (MEDT OX)* cocaine POSITI VE cutoff = 150 NG/mL abnormal Not Available [facility] (Lab) [address] [place] [address], 34497, 10/07/2024 14:36:04 10/07/20 24 10/07/2024 DRUG SCN 13 PANEL (MEDT OX)* methamphetam adenike NEGATI VE cutoff = 500 NG/mL Not Available [facility] (Lab) [address] [place] [address], 27192, 10/07/2024 14:36:04 10/07/20 24 10/07/2024 DRUG SCN 13 PANEL (MEDT OX)* opiates NEGATI VE cutoff = 100 NG/mL Not Available [facility] (Lab) [address] [place] [address], 39927, 10/07/2024 14:36:04 10/07/20 24 10/07/2024 DRUG SCN 13 PANEL (MEDT OX)* amphetamines NEGATI VE cutoff = 500 NG/mL Not Available [facility] (Lab) [address] [place] [address], 46598, 10/07/2024 14:36:04 10/07/20 24 10/07/2024 DRUG SCN 13 PANEL (MEDT OX)* benzodiazepi olivia NEGATI VE cutoff = 150 NG/mL Not Available [facility] (Lab) [address] [place] [address], 83850, 10/07/2024 14:36:04 10/07/20 24 10/07/2024 DRUG SCN 13 PANEL (MEDT OX)* tricyclic antidep POSITI VE cutoff = 300 NG/mL abnormal Not Available [facility] (Lab) [address] [place] [address], 66826, 10/07/2024 14:36:04 10/07/20 24 10/07/2024 DRUG SCN 13 PANEL (MEDT OX)* methadone POSITI VE cutoff = 200 NG/mL abnormal Not Available [facility] (Lab) [address] [place] [address], 53966, 10/07/2024 14:36:04 10/07/20 24 10/07/2024 DRUG SCN 13 PANEL (MEDT OX)* barbiturates NEGATI VE cutoff = 200 NG/mL Not Available [facility] (Lab) [address] [place] [address], 31760, 10/07/2024 14:36:04 10/07/20 24 10/07/2024 DRUG SCN 13 PANEL (MEDT OX)* oxycodone NEGATI VE cutoff = 100 NG/mL Not Available [facility] (Lab) [address] [place] [address], 60115, 10/07/2024 14:36:04 10/07/20 24 10/07/2024 DRUG SCN 13 PANEL (MEDT OX)* buprenorphin e NEGATI VE cutoff = 10 mg/mL Suita ble for medic al purpo ses only. This scree n will not detec t all drugs withi n each class . URINE DRUG SCREE N CUTOF F VALUE S CANNA BINOI DS 50 ng/mL PHENC YCLID INE 25 ng/mL COCAI NE 150 ng/mL METHA MPHET AMINE S 500 ng/mL OPIAT ES 100 ng/mL AMPHE TAMIN ES 500 ng/mL BENZO DIAZE PINES 150 ng/mL TRICY CLIC ANTID EP 300 ng/mL METHA DONE 200 ng/mL ARIC TURAT ES 200 ng/mL OXYCO DONE 100 ng/mL BUPRE NORPH INE 10 ng/mL Not Available [facility] (Lab) [address] [place] [address], 49763, 10/07/2024 14:36:04 10/07/20 24 10/07/2024 CBC W/ DIFFE RENTI AL* WBC 15.85 TH/cm m 5.00 - 10.00 high Not Available [facility] (Lab) [address] [place] [address], 66968, 10/07/2024 14:33:06 10/07/20 24 10/07/2024 CBC W/ DIFFE RENTI AL* neut % 69.8 % 40.0 - 80.0 Not Available [facility] (Lab) [address] [place] [address], 64036, 10/07/2024 14:33:06 10/07/20 24 10/07/2024 CBC W/ DIFFE RENTI AL* lymph % 22.3 % 10.0 - 50.0 Not Available [facility] (Lab) [address] [place] [address], 32617, 10/07/2024 14:33:06 10/07/20 24 10/07/2024 CBC W/ DIFFE RENTI AL* mono % 5.2 % 2.0 - 12.0 Not Available [facility] (Lab) [address] [place] [address], 63768, 10/07/2024 14:33:06 10/07/20 24 10/07/2024 CBC W/ DIFFE RENTI AL* eos % 1.6 % 0.0 - 8.0 Not Available [facility] (Lab) [address] [place] [address], 25864, 10/07/2024 14:33:06 10/07/20 24 10/07/2024 CBC W/ DIFFE RENTI AL* baso % 0.5 % 0.0 - 3.0 Not Available [facility] (Lab) [address] [place] [address], 57299, 10/07/2024 14:33:06 10/07/20 24 10/07/2024 CBC W/ DIFFE RENTI AL* Ig % 0.6 % 0.0 - 1.1 Not Available [facility] (Lab) [address] [place] [address], 46044, 10/07/2024 14:33:06 10/07/20 24 10/07/2024 CBC W/ DIFFE RENTI AL* NRBC % 0.0 % 0.0 - 0.0 Not Available [facility] (Lab) [address] [place] [address], 69205, 10/07/2024 14:33:06 10/07/20 24 10/07/2024 CBC W/ DIFFE RENTI AL* neut abs count 11.1 TH/cm m 1.6 - 8.4 high Not Available [facility] (Lab) [address] [place] [address], 14309, 10/07/2024 14:33:06 10/07/20 24 10/07/2024 CBC W/ DIFFE RENTI AL* lymph abs count 3.5 TH/cm m 1.5 - 4.0 Not Available [facility] (Lab) [address] [place] [address], 22837, 10/07/2024 14:33:06 10/07/20 24 10/07/2024 CBC W/ DIFFE RENTI AL* mono abs count 0.8 TH/cm m 0.2 - 1.0 Not Available [facility] (Lab) [address] [place] [address], 87477, 10/07/2024 14:33:06 10/07/20 24 10/07/2024 CBC W/ DIFFE RENTI AL* eos abs count 0.3 TH/cm m 0.0 - 0.5 Not Available [facility] (Lab) [address] [place] [address], 16421, 10/07/2024 14:33:06 10/07/20 24 10/07/2024 CBC W/ DIFFE RENTI AL* baso abs count 0.1 TH/cm m 0.0 - 0.2 Not Available [facility] (Lab) [address] [place] [address], 97879, 10/07/2024 14:33:06 10/07/20 24 10/07/2024 CBC W/ DIFFE RENTI AL* Ig abs count 0.1 TH/cm m 0.0 - 0.1 Not Available [facility] (Lab) [address] [place] [address], 97016, 10/07/2024 14:33:06 10/07/20 24 10/07/2024 CBC W/ DIFFE RENTI AL* NRBC abs count 0.0 mil/c mm 0.0 - 0.0 Not Available [facility] (Lab) [address] [place] [address], 57219, 10/07/2024 14:33:06 10/07/20 24 10/07/2024 CBC W/ DIFFE RENTI AL* RBC 4.00 mil/c mm 3.90 - 5.40 Not Available [facility] (Lab) [address] [place] [address], 21206, 10/07/2024 14:33:06 10/07/20 24 10/07/2024 CBC W/ DIFFE RENTI AL* hemoglobin 10.9 gm/dL 12.0 - 16.0 low Not Available [facility] (Lab) [address] [place] [address], 14295, 10/07/2024 14:33:06 10/07/20 24 10/07/2024 CBC W/ DIFFE RENTI AL* hematocrit 35 % 37 - 47 low Not Available [facility] (Lab) [address] [place], [address], 10/07/2024 14:33:06 10/07/20 24 10/07/2024 CBC W/ DIFFE RENTI AL* MCV 87 fL 82 - 92 Not Available [facility] (Lab) [address] [place] [address], 95416, 10/07/2024 14:33:06 10/07/20 24 10/07/2024 CBC W/ DIFFE RENTI AL* MCH 27.3 pg 27.0 - 31.0 Not Available [facility] (Lab) [address] [place] [address], 85695, 10/07/2024 14:33:06 10/07/20 24 10/07/2024 CBC W/ DIFFE RENTI AL* MCHC 31.3 % 32.0 - 36.0 low Not Available [facility] (Lab) [address] [place] [address], 23639, 10/07/2024 14:33:06 10/07/20 24 10/07/2024 CBC W/ DIFFE RENTI AL* RDW-SD 45.4 fL 39.0 - 49.0 Not Available [facility] (Lab) [address] [place] [address], 65606, 10/07/2024 14:33:06 10/07/20 24 10/07/2024 CBC W/ DIFFE RENTI AL* platelet count 481 TH/cm m 150 - 450 high Not Available [facility] (Lab) [address] [place] [address], 79811, 10/07/2024 14:33:06 10/07/20 24 10/07/2024 URINA LYSIS WITH MICRO SCOPI C* collection mode: CLEAN CATCH Not Available [facility] (Lab) [address] [place] [address], 54068, 10/07/2024 14:33:03 10/07/20 24 10/07/2024 URINA LYSIS WITH MICRO SCOPI C* color YELLOW yellow Not Available [facility] (Lab) [address] [place], [address], 10/07/2024 14:33:03 10/07/20 24 10/07/2024 URINA LYSIS WITH MICRO SCOPI C* appearance HAZY clear Not Available [facility] (Lab) [address] [place], [address], 10/07/2024 14:33:03 10/07/20 24 10/07/2024 URINA LYSIS WITH MICRO SCOPI C* glucose urine 250 negati ve mg/dL abnormal Not Available [facility] (Lab) [address] [place], [address], 10/07/2024 14:33:03 10/07/20 24 10/07/2024 URINA LYSIS WITH MICRO SCOPI C* bilirubin NEGATI VE negati ve Not Available [facility] (Lab) [address] [place] [address], 89173, 10/07/2024 14:33:03 10/07/20 24 10/07/2024 URINA LYSIS WITH MICRO SCOPI C* ketones NEGATI VE negati ve mg/dL Not Available [facility] (Lab) [address] [place] [address], 36525, 10/07/2024 14:33:03 10/07/20 24 10/07/2024 URINA LYSIS WITH MICRO SCOPI C* spec gravity 1.020 1.003 - 1.030 Not Available [facility] (Lab) [address] [place] [address], 26828, 10/07/2024 14:33:03 10/07/20 24 10/07/2024 URINA LYSIS WITH MICRO SCOPI C* pH urine 6.0 5.0 - 7.0 Not Available [facility] (Lab) [address] [place], [address], 10/07/2024 14:33:03 10/07/20 24 10/07/2024 URINA LYSIS WITH MICRO SCOPI C* protein >=300 negati ve mg/dL abnormal Not Available [facility] (Lab) [address] [place], [address], 10/07/2024 14:33:03 10/07/20 24 10/07/2024 URINA LYSIS WITH MICRO SCOPI C* urobilinogen 0.2 <or= 1 eu/dL Not Available [facility] (Lab) [address] [place], [address], 10/07/2024 14:33:03 10/07/20 24 10/07/2024 URINA LYSIS WITH MICRO SCOPI C* nitrite POSITI VE negati ve abnormal Not Available [facility] (Lab) [address] [place] [address], 09791, 10/07/2024 14:33:03 10/07/20 24 10/07/2024 URINA LYSIS WITH MICRO SCOPI C* blood MODERA TE negati ve abnormal Not Available [facility] (Lab) [address] [place] [address], 35623, 10/07/2024 14:33:03 10/07/20 24 10/07/2024 URINA LYSIS WITH MICRO SCOPI C* leukocytes TRACE negati ve abnormal Not Available [facility] (Lab) [address] [place], [address], 10/07/2024 14:33:03 10/07/20 24 10/07/2024 URINA LYSIS WITH MICRO SCOPI C* WBCs 25-100 0-5 / hpf Not Available [facility] (Lab) [address] [place] [address], 96602, 10/07/2024 14:33:03 10/07/20 24 10/07/2024 URINA LYSIS WITH MICRO SCOPI C* RBCs 10-25 0-5 / hpf Not Available [facility] (Lab) [address] [place], [address], 10/07/2024 14:33:03 10/07/20 24 10/07/2024 URINA LYSIS WITH MICRO SCOPI C* epith cells 0-5 0-5 / hpf Not Available [facility] (Lab) [address] [place] [address], 94974, 10/07/2024 14:33:03 10/07/20 24 10/07/2024 URINA LYSIS WITH MICRO SCOPI C* cell types squamo us Not Available [facility] (Lab) [address] [place] [address], 35529, 10/07/2024 14:33:03 10/07/20 24 10/07/2024 URINA LYSIS WITH MICRO SCOPI C* crystals none none Not Available [facility] (Lab) [address] [place] [address], 23129, 10/07/2024 14:33:03 10/07/20 24 10/07/2024 URINA LYSIS WITH MICRO SCOPI C* bacteria large none Not Available [facility] (Lab) [address] [place] [address], 05942, 10/07/2024 14:33:03 10/07/20 24 10/07/2024 URINA LYSIS WITH MICRO SCOPI C* mucus none none Not Available [facility] (Lab) [address] [place] [address], 61373, 10/07/2024 14:33:03 10/07/20 24 10/07/2024 URINA LYSIS WITH MICRO SCOPI C* casts 0-5 none /lpf Not Available [facility] (Lab) [address] [place] [address], 05002, 10/07/2024 14:33:03 10/07/20 24 10/07/2024 URINA LYSIS WITH MICRO SCOPI C* cast types hyal+g ran Not Available [facility] (Lab) [address] [place], [address], 10/07/2024 14:33:03 10/07/20 24 10/07/2024 URINA LYSIS WITH MICRO SCOPI C* other WBC CLUMPS , URINE UNSPUN DUE TO VOLUME Not Available [facility] (Lab) [address] [place] [address], 57088, 10/07/2024 14:33:03 10/08/20 24 10/08/2024 NOVA GLUCO SE FINGE R HEEL CAPIL LEON glucose cap 118 mg/dL 70 - 116 high Not Available [facility] (Lab) [address] [place] [address], 91494, 10/08/2024 20:39:13 10/08/20 24 10/08/2024 NOVA GLUCO SE FINGE R HEEL CAPIL LEON glucose cap 69 mg/dL 70 - 116 low Not Available [facility] (Lab) [address] [place] [address], 66516, 10/08/2024 17:57:08 10/08/20 24 10/08/2024 NOVA GLUCO SE FINGE R HEEL CAPIL LEON glucose cap 60 mg/dL 70 - 116 low Not Available [facility] (Lab) [address] [place] [address], 45393, 10/08/2024 17:09:05 10/08/20 24 10/08/2024 NOVA GLUCO SE FINGE R HEEL CAPIL LEON glucose cap 116 mg/dL 70 - 116 Not Available [facility] (Lab) [address] [place] [address], 31952, 10/08/2024 12:27:58 10/08/20 24 10/08/2024 NOVA GLUCO SE FINGE R HEEL CAPIL LEON glucose cap 77 mg/dL 70 - 116 Not Available [facility] (Lab) [address] [place] [address], [id number], 10/08/2024 08:23:54 10/08/20 24 10/08/2024 MAGNE SIUM SERUM * magnesium 1.6 mg/dL 1.6 - 2.3 Not Available [facility] (Lab) [address] [place] [address], [id number], 10/08/2024 07:58:52 10/08/20 24 10/08/2024 BASIC METAB OLIC PANEL (BMP) glucose 72 mg/dL 70 - 116 Not Available [facility] (Lab) [address] [place] [address], [id number], 10/08/2024 07:58:50 10/08/20 24 10/08/2024 BASIC METAB OLIC PANEL (BMP) BUN 64 mg/dL 7 - 17 high Not Available [facility] (Lab) [address] [place] [address], [id number], 10/08/2024 07:58:50 10/08/20 24 10/08/2024 BASIC METAB OLIC PANEL (BMP) creatinine 5.91 mg/dL 0.52 - 1.04 high Not Available [facility] (Lab) [address] [place] [address], [id number], 10/08/2024 07:58:50 10/08/20 24 10/08/2024 BASIC METAB OLIC PANEL (BMP) sodium serum 144 mmol/ L 136 - 145 Not Available [facility] (Lab) [address] [place] [address], [id number], 10/08/2024 07:58:50 10/08/20 24 10/08/2024 BASIC METAB OLIC PANEL (BMP) potassium serum 4.2 mmol/ L 3.4 - 5.2 Not Available [facility] (Lab) [address] [place] [address], [id number], 10/08/2024 07:58:50 10/08/20 24 10/08/2024 BASIC METAB OLIC PANEL (BMP) chloride serum 112 mmol/ L 98 - 107 high Not Available [facility] (Lab) [address] [place], [id number], 10/08/2024 07:58:50 10/08/20 24 10/08/2024 BASIC METAB OLIC PANEL (BMP) carbon dioxide (co2) 22 mmol/ L 22 - 30 Not Available [facility] (Lab) [address] [place] [address], [id number], 10/08/2024 07:58:50 10/08/20 24 10/08/2024 BASIC METAB OLIC PANEL (BMP) anion gap 9.5 mmol/ L Not Available [facility] (Lab) [address] [place] [address], [id number], 10/08/2024 07:58:50 10/08/20 24 10/08/2024 BASIC METAB OLIC PANEL (BMP) calcium serum 8.4 mg/dL 8.4 - 10.2 Not Available [facility] (Lab) [address] [place] [address], [id number], 10/08/2024 07:58:50 10/08/20 24 10/08/2024 BASIC METAB OLIC PANEL (BMP) age 49 years Not Available [facility] (Lab) [address] [place] [address], 28345, 10/08/2024 07:58:50 10/08/20 24 10/08/2024 BASIC METAB OLIC PANEL (BMP) eGFR (non-afr.narayan r.) 8 mL/mi n Not Available [facility] (Lab) [address] [place] [address], 37619, 10/08/2024 07:58:50 10/08/20 24 10/08/2024 BASIC METAB OLIC PANEL (BMP) eGFR (afr-aliya n) 9 mL/mi n eGFR <60 ml/mi n for >=3 month s is indic ative of chron ic kidne y The eGFR calcu lated using the MDRD Study equat ion is valid ated non hospi taliz ed patie nts 18 to 70 years of age and is not rep patie nts less than 18 years of age. Not Available [facility] (Lab) [address] [place] [address], 39365, 10/08/2024 07:58:50 10/08/20 24 10/08/2024 CBC W/ DIFFE RENTI AL* WBC 14.98 TH/cm m 5.00 - 10.00 high Not Available [facility] (Lab) [address] [place] [address], 14282, 10/08/2024 07:31:47 10/08/20 24 10/08/2024 CBC W/ DIFFE RENTI AL* neut % 61.9 % 40.0 - 80.0 Not Available [facility] (Lab) [address] [place] [address], 53921, 10/08/2024 07:31:47 10/08/20 24 10/08/2024 CBC W/ DIFFE RENTI AL* lymph % 27.8 % 10.0 - 50.0 Not Available [facility] (Lab) [address] [place] [address], 93332, 10/08/2024 07:31:47 10/08/20 24 10/08/2024 CBC W/ DIFFE RENTI AL* mono % 6.5 % 2.0 - 12.0 Not Available [facility] (Lab) [address] [place] [address], 90876, 10/08/2024 07:31:47 10/08/20 24 10/08/2024 CBC W/ DIFFE RENTI AL* eos % 2.8 % 0.0 - 8.0 Not Available [facility] (Lab) [address] [place] [address], 95481, 10/08/2024 07:31:47 10/08/20 24 10/08/2024 CBC W/ DIFFE RENTI AL* baso % 0.6 % 0.0 - 3.0 Not Available [facility] (Lab) [address] [place] [address], 48942, 10/08/2024 07:31:47 10/08/20 24 10/08/2024 CBC W/ DIFFE RENTI AL* Ig % 0.4 % 0.0 - 1.1 Not Available [facility] (Lab) [address] [place] [address], 82165, 10/08/2024 07:31:47 10/08/20 24 10/08/2024 CBC W/ DIFFE RENTI AL* NRBC % 0.0 % 0.0 - 0.0 Not Available [facility] (Lab) [address] [place] [address], 50615, 10/08/2024 07:31:47 10/08/20 24 10/08/2024 CBC W/ DIFFE RENTI AL* neut abs count 9.3 TH/cm m 1.6 - 8.4 high Not Available [facility] (Lab) [address] [place] [address], 55319, 10/08/2024 07:31:47 10/08/20 24 10/08/2024 CBC W/ DIFFE RENTI AL* lymph abs count 4.2 TH/cm m 1.5 - 4.0 high Not Available [facility] (Lab) [address] [place] [address], 44884, 10/08/2024 07:31:47 10/08/20 24 10/08/2024 CBC W/ DIFFE RENTI AL* mono abs count 1.0 TH/cm m 0.2 - 1.0 Not Available [facility] (Lab) [address] [place] [address], 51082, 10/08/2024 07:31:47 10/08/20 24 10/08/2024 CBC W/ DIFFE RENTI AL* eos abs count 0.4 TH/cm m 0.0 - 0.5 Not Available [facility] (Lab) [address] [place] [address], 63845, 10/08/2024 07:31:47 10/08/20 24 10/08/2024 CBC W/ DIFFE RENTI AL* baso abs count 0.1 TH/cm m 0.0 - 0.2 Not Available [facility] (Lab) [address] [place], [address], 10/08/2024 07:31:47 10/08/20 24 10/08/2024 CBC W/ DIFFE RENTI AL* Ig abs count 0.1 TH/cm m 0.0 - 0.1 Not Available [facility] (Lab) [address] [place], [address], 10/08/2024 07:31:47 10/08/20 24 10/08/2024 CBC W/ DIFFE RENTI AL* NRBC abs count 0.0 mil/c mm 0.0 - 0.0 Not Available [facility] (Lab) [address] [place], [address], 10/08/2024 07:31:47 10/08/20 24 10/08/2024 CBC W/ DIFFE RENTI AL* RBC 3.88 mil/c mm 3.90 - 5.40 low Not Available [facility] (Lab) [address] [place] [address], 34808, 10/08/2024 07:31:47 10/08/20 24 10/08/2024 CBC W/ DIFFE RENTI AL* hemoglobin 10.7 gm/dL 12.0 - 16.0 low Not Available [facility] (Lab) [address] [place], [address], 10/08/2024 07:31:47 10/08/20 24 10/08/2024 CBC W/ DIFFE RENTI AL* hematocrit 34 % 37 - 47 low Not Available [facility] (Lab) [address] [place] [address], 58032, 10/08/2024 07:31:47 10/08/20 24 10/08/2024 CBC W/ DIFFE RENTI AL* MCV 88 fL 82 - 92 Not Available [facility] (Lab) [address] [place] [address], 59627, 10/08/2024 07:31:47 10/08/20 24 10/08/2024 CBC W/ DIFFE RENTI AL* MCH 27.6 pg 27.0 - 31.0 Not Available [facility] (Lab) [address] [place] [address], 67275, 10/08/2024 07:31:47 10/08/20 24 10/08/2024 CBC W/ DIFFE RENTI AL* MCHC 31.3 % 32.0 - 36.0 low Not Available [facility] (Lab) [address] [place] [address], 25983, 10/08/2024 07:31:47 10/08/20 24 10/08/2024 CBC W/ DIFFE RENTI AL* RDW-SD 46.1 fL 39.0 - 49.0 Not Available [facility] (Lab) [address] [place] [address], 68061, 10/08/2024 07:31:47 10/08/20 24 10/08/2024 CBC W/ DIFFE RENTI AL* platelet count 437 TH/cm m 150 - 450 Not Available [facility] (Lab) [address] [place] [address], 48891, 10/08/2024 07:31:47 10/09/20 24 10/09/2024 NOVA GLUCO SE FINGE R HEEL CAPIL LEON glucose cap 101 mg/dL 70 - 116 Not Available [facility] (Lab) [address] [place] [address], 19803, 10/09/2024 19:40:39 10/09/20 24 10/09/2024 NOVA GLUCO SE FINGE R HEEL CAPIL LEON glucose cap 121 mg/dL 70 - 116 high Not Available [facility] (Lab) [address] [place], [address], 10/09/2024 18:40:38 10/09/20 24 10/09/2024 NOVA GLUCO SE FINGE R HEEL CAPIL LEON glucose cap 112 mg/dL 70 - 116 Not Available [facility] (Lab) [address] [place] [address], 14173, 10/09/2024 11:50:40 10/09/20 24 10/09/2024 NOVA GLUCO SE FINGE R HEEL CAPIL LEON glucose cap 79 mg/dL 70 - 116 Not Available [facility] (Lab) [address] [place] [address], 76408, 10/09/2024 08:47:05 10/09/20 24 10/09/2024 BASIC METAB OLIC PANEL (BMP) glucose 64 mg/dL 70 - 116 low Not Available [facility] ([facility]) [address] [place] [address], 28297, 10/09/2024 07:48:58 10/09/20 24 10/09/2024 BASIC METAB OLIC PANEL (BMP) BUN 63 mg/dL 7 - 17 high Not Available [facility] (Lab) [address] [place] [address], 09824, 10/09/2024 07:48:58 10/09/20 24 10/09/2024 BASIC METAB OLIC PANEL (BMP) creatinine 5.87 mg/dL 0.52 - 1.04 high Not Available [facility] (Lab) [address] [place] [address], 41015, 10/09/2024 07:48:58 10/09/20 24 10/09/2024 BASIC METAB OLIC PANEL (BMP) sodium serum 143 mmol/ L 136 - 145 Not Available [facility] (Lab) [address] [place] [address], 72442, 10/09/2024 07:48:58 10/09/20 24 10/09/2024 BASIC METAB OLIC PANEL (BMP) potassium serum 4.5 mmol/ L 3.4 - 5.2 Not Available [facility] (Lab) [address] [place] [address], 25089, 10/09/2024 07:48:58 10/09/20 24 10/09/2024 BASIC METAB OLIC PANEL (BMP) chloride serum 115 mmol/ L 98 - 107 high Not Available [facility] (Lab) [address] [place], [address], 10/09/2024 07:48:58 10/09/20 24 10/09/2024 BASIC METAB OLIC PANEL (BMP) carbon dioxide (co2) 19 mmol/ L 22 - 30 low Not Available [facility] (Lab) [address] [place] [address], 24881, 10/09/2024 07:48:58 10/09/20 24 10/09/2024 BASIC METAB OLIC PANEL (BMP) anion gap 8.4 mmol/ L Not Available [facility] (Lab) [address] [place] [address], 35066, 10/09/2024 07:48:58 10/09/20 24 10/09/2024 BASIC METAB OLIC PANEL (BMP) calcium serum 8.1 mg/dL 8.4 - 10.2 low Not Available [facility] (Lab) [address] [place] [address], 68894, 10/09/2024 07:48:58 10/09/20 24 10/09/2024 BASIC METAB OLIC PANEL (BMP) age 49 years Not Available [facility] (Lab) [address] [place] [address], 30451, 10/09/2024 07:48:58 10/09/20 24 10/09/2024 BASIC METAB OLIC PANEL (BMP) eGFR (non-afr.narayan r.) 8 mL/mi n Not Available [facility] (Lab) [address] [place] [address], 36481, 10/09/2024 07:48:58 10/09/20 24 10/09/2024 BASIC METAB OLIC PANEL (BMP) eGFR (afr-aliya n) 9 mL/mi n eGFR <60 ml/mi n for >=3 month s is indic ative of chron ic kidne y The eGFR calcu lated using the MDRD Study equat ion is valid ated non hospi taliz ed patie nts 18 to 70 years of age and is not rep patie nts less than 18 years of age. Not Available [facility] (Lab) [address] [place] [address], 91507, 10/09/2024 07:48:58 10/09/20 24 10/09/2024 CBC W/ DIFFE RENTI AL* WBC 13.10 TH/cm m 5.00 - 10.00 high Not Available [facility] (Lab) [address] [place] [address], 17519, 10/09/2024 07:45:57 10/09/20 24 10/09/2024 CBC W/ DIFFE RENTI AL* neut % 58.6 % 40.0 - 80.0 Not Available [facility] (Lab) [address] [place] [address], 19708, 10/09/2024 07:45:57 10/09/20 24 10/09/2024 CBC W/ DIFFE RENTI AL* lymph % 31.2 % 10.0 - 50.0 Not Available [facility] (Lab) [address] [place] [address], 62758, 10/09/2024 07:45:57 10/09/20 24 10/09/2024 CBC W/ DIFFE RENTI AL* mono % 7.1 % 2.0 - 12.0 Not Available [facility] (Lab) [address] [place] [address], 24536, 10/09/2024 07:45:57 10/09/20 24 10/09/2024 CBC W/ DIFFE RENTI AL* eos % 2.3 % 0.0 - 8.0 Not Available [facility] (Lab) [address] [place] [address], 57439, 10/09/2024 07:45:57 10/09/20 24 10/09/2024 CBC W/ DIFFE RENTI AL* baso % 0.5 % 0.0 - 3.0 Not Available [facility] (Lab) [address] [place] [address], 36893, 10/09/2024 07:45:57 10/09/20 24 10/09/2024 CBC W/ DIFFE RENTI AL* Ig % 0.3 % 0.0 - 1.1 Not Available [facility] (Lab) [address] [place] [address], 58415, 10/09/2024 07:45:57 10/09/20 24 10/09/2024 CBC W/ DIFFE RENTI AL* NRBC % 0.0 % 0.0 - 0.0 Not Available [facility] (Lab) [address] [place] [address], 15468, 10/09/2024 07:45:57 10/09/20 24 10/09/2024 CBC W/ DIFFE RENTI AL* neut abs count 7.7 TH/cm m 1.6 - 8.4 Not Available [facility] (Lab) [address] [place] [address], 88599, 10/09/2024 07:45:57 10/09/20 24 10/09/2024 CBC W/ DIFFE RENTI AL* lymph abs count 4.1 TH/cm m 1.5 - 4.0 high Not Available [facility] (Lab) [address] [place] [address], 32613, 10/09/2024 07:45:57 10/09/20 24 10/09/2024 CBC W/ DIFFE RENTI AL* mono abs count 0.9 TH/cm m 0.2 - 1.0 Not Available [facility] (Lab) [address] [place] [address], 66173, 10/09/2024 07:45:57 10/09/20 24 10/09/2024 CBC W/ DIFFE RENTI AL* eos abs count 0.3 TH/cm m 0.0 - 0.5 Not Available [facility] (Lab) [address] [place] [address], 18720, 10/09/2024 07:45:57 10/09/20 24 10/09/2024 CBC W/ DIFFE RENTI AL* baso abs count 0.1 TH/cm m 0.0 - 0.2 Not Available [facility] ([facility]) [address] [place] [address], 55236, 10/09/2024 07:45:57 10/09/20 24 10/09/2024 CBC W/ DIFFE RENTI AL* Ig abs count 0.0 TH/cm m 0.0 - 0.1 Not Available [facility] (Lab) [address] [place] [address], 95867, 10/09/2024 07:45:57 10/09/20 24 10/09/2024 CBC W/ DIFFE RENTI AL* NRBC abs count 0.0 mil/c mm 0.0 - 0.0 Not Available [facility] (Lab) [address] [place] [address], 95180, 10/09/2024 07:45:57 10/09/20 24 10/09/2024 CBC W/ DIFFE RENTI AL* RBC 3.38 mil/c mm 3.90 - 5.40 low Not Available [facility] (Lab) [address] [place] [address], 16519, 10/09/2024 07:45:57 10/09/20 24 10/09/2024 CBC W/ DIFFE RENTI AL* hemoglobin 9.2 gm/dL 12.0 - 16.0 low Not Available [facility] (Lab) [address] [place], [address], 10/09/2024 07:45:57 10/09/20 24 10/09/2024 CBC W/ DIFFE RENTI AL* hematocrit 30 % 37 - 47 low Not Available [facility] (Lab) [address] [place] [address], 80455, 10/09/2024 07:45:57 10/09/20 24 10/09/2024 CBC W/ DIFFE RENTI AL* MCV 89 fL 82 - 92 Not Available [facility] (Lab) [address] [place] [address], 86665, 10/09/2024 07:45:57 10/09/20 24 10/09/2024 CBC W/ DIFFE RENTI AL* MCH 27.2 pg 27.0 - 31.0 Not Available [facility] (Lab) [address] [place] [address], 17534, 10/09/2024 07:45:57 10/09/20 24 10/09/2024 CBC W/ DIFFE RENTI AL* MCHC 30.5 % 32.0 - 36.0 low Not Available [facility] (Lab) [address] [place] [address], 79450, 10/09/2024 07:45:57 10/09/20 24 10/09/2024 CBC W/ DIFFE RENTI AL* RDW-SD 46.1 fL 39.0 - 49.0 Not Available [facility] (Lab) [address] [place] [address], 58357, 10/09/2024 07:45:57 10/09/20 24 10/09/2024 CBC W/ DIFFE RENTI AL* platelet count 358 TH/cm m 150 - 450 Not Available [facility] (Lab) [address] [place] [address], 45436, 10/09/2024 07:45:57 10/10/20 24 10/10/2024 NOVA GLUCO SE FINGE R HEEL CAPIL LEON glucose cap 105 mg/dL 70 - 116 Not Available [facility] (Lab) [address] [place] [address], 67274, 10/10/2024 20:35:34 10/10/20 24 10/10/2024 NOVA GLUCO SE FINGE R HEEL CAPIL LEON glucose cap 131 mg/dL 70 - 116 high Not Available [facility] ([facility]) [address] [place] [address], 79678, 10/10/2024 17:16:26 10/10/20 24 10/10/2024 NOVA GLUCO SE FINGE R HEEL CAPIL LEON glucose cap 107 mg/dL 70 - 116 Not Available [facility] ([facility]) [address] [place] [address], 52417, 10/10/2024 12:12:52 10/10/20 24 10/10/2024 BASIC METAB OLIC PANEL (BMP) glucose 128 mg/dL 70 - 116 high Not Available [facility] (Lab) [address] [place] [address], 94059, 10/10/2024 10:30:37 10/10/20 24 10/10/2024 BASIC METAB OLIC PANEL (BMP) BUN 69 mg/dL 7 - 17 high Not Available [facility] (Lab) [address] [place] [address], 64183, 10/10/2024 10:30:37 10/10/20 24 10/10/2024 BASIC METAB OLIC PANEL (BMP) creatinine 5.68 mg/dL 0.52 - 1.04 high Not Available [facility] (Lab) [address] [place] [address], 41508, 10/10/2024 10:30:37 10/10/20 24 10/10/2024 BASIC METAB OLIC PANEL (BMP) sodium serum 141 mmol/ L 136 - 145 Not Available [facility] (Lab) [address] [place] [address], 10277, 10/10/2024 10:30:37 10/10/20 24 10/10/2024 BASIC METAB OLIC PANEL (BMP) potassium serum 5.4 mmol/ L 3.4 - 5.2 high Not Available [facility] (Lab) [address] [place], [address], 10/10/2024 10:30:37 10/10/20 24 10/10/2024 BASIC METAB OLIC PANEL (BMP) chloride serum 111 mmol/ L 98 - 107 high Not Available [facility] (Lab) [address] [place], [address], 10/10/2024 10:30:37 10/10/20 24 10/10/2024 BASIC METAB OLIC PANEL (BMP) carbon dioxide (co2) 20 mmol/ L 22 - 30 low Not Available [facility] (Lab) [address] [place] [address], 94743, 10/10/2024 10:30:37 10/10/20 24 10/10/2024 BASIC METAB OLIC PANEL (BMP) anion gap 10.2 mmol/ L Not Available [facility] (Lab) [address] [place] [address], 68691, 10/10/2024 10:30:37 10/10/20 24 10/10/2024 BASIC METAB OLIC PANEL (BMP) calcium serum 8.4 mg/dL 8.4 - 10.2 Not Available [facility] (Lab) [address] [place] [address], 83191, 10/10/2024 10:30:37 10/10/20 24 10/10/2024 BASIC METAB OLIC PANEL (BMP) age 49 years Not Available [facility] (Lab) [address] [place] [address], 32102, 10/10/2024 10:30:37 10/10/20 24 10/10/2024 BASIC METAB OLIC PANEL (BMP) eGFR (non-afr.narayan r.) 8 mL/mi n Not Available [facility] (Lab) [address] [place] [address], 49808, 10/10/2024 10:30:37 10/10/20 24 10/10/2024 BASIC METAB OLIC PANEL (BMP) eGFR (afr-aliya n) 10 mL/mi n eGFR <60 ml/mi n for >=3 month s is indic ative of chron ic kidne y The eGFR calcu lated using the MDRD Study equat ion is valid ated non hospi taliz ed patie nts 18 to 70 years of age and is not rep patie nts less than 18 years of age. Not Available [facility] (Lab) [address] [place] [address], 09559, 10/10/2024 10:30:37 10/10/20 24 10/10/2024 CBC W/ DIFFE RENTI AL* WBC 13.29 TH/cm m 5.00 - 10.00 high Not Available [facility] ([facility]) [address] [place] [address], 59616, 10/10/2024 10:15:34 10/10/20 24 10/10/2024 CBC W/ DIFFE RENTI AL* neut % 59.5 % 40.0 - 80.0 Not Available [facility] ([facility]) [address] [place] [address], 24048, 10/10/2024 10:15:34 10/10/20 24 10/10/2024 CBC W/ DIFFE RENTI AL* lymph % 29.6 % 10.0 - 50.0 Not Available [facility] (Lab) [address] [place] [address], 63420, 10/10/2024 10:15:34 10/10/20 24 10/10/2024 CBC W/ DIFFE RENTI AL* mono % 7.3 % 2.0 - 12.0 Not Available [facility] (Lab) [address] [place] [address], 20694, 10/10/2024 10:15:34 10/10/20 24 10/10/2024 CBC W/ DIFFE RENTI AL* eos % 2.6 % 0.0 - 8.0 Not Available [facility] (Lab) [address] [place] [address], 74188, 10/10/2024 10:15:34 10/10/20 24 10/10/2024 CBC W/ DIFFE RENTI AL* baso % 0.5 % 0.0 - 3.0 Not Available [facility] (Lab) [address] [place] [address], 79931, 10/10/2024 10:15:34 10/10/20 24 10/10/2024 CBC W/ DIFFE RENTI AL* Ig % 0.5 % 0.0 - 1.1 Not Available [facility] (Lab) [address] [place] [address], 15270, 10/10/2024 10:15:34 10/10/20 24 10/10/2024 CBC W/ DIFFE RENTI AL* NRBC % 0.0 % 0.0 - 0.0 Not Available [facility] (Lab) [address] [place] [address], 45275, 10/10/2024 10:15:34 10/10/20 24 10/10/2024 CBC W/ DIFFE RENTI AL* neut abs count 7.9 TH/cm m 1.6 - 8.4 Not Available [facility] ([facility]) [address] [place] [address], 23406, 10/10/2024 10:15:34 10/10/20 24 10/10/2024 CBC W/ DIFFE RENTI AL* lymph abs count 3.9 TH/cm m 1.5 - 4.0 Not Available [facility] (Lab) [address] [place] [address], 29143, 10/10/2024 10:15:34 10/10/20 24 10/10/2024 CBC W/ DIFFE RENTI AL* mono abs count 1.0 TH/cm m 0.2 - 1.0 Not Available [facility] (Lab) [address] [place] [address], 50001, 10/10/2024 10:15:34 10/10/20 24 10/10/2024 CBC W/ DIFFE RENTI AL* eos abs count 0.3 TH/cm m 0.0 - 0.5 Not Available [facility] (Lab) [address] [place], [address], 10/10/2024 10:15:34 10/10/20 24 10/10/2024 CBC W/ DIFFE RENTI AL* baso abs count 0.1 TH/cm m 0.0 - 0.2 Not Available [facility] (Lab) [address] [place] [address], 96923, 10/10/2024 10:15:34 10/10/20 24 10/10/2024 CBC W/ DIFFE RENTI AL* Ig abs count 0.1 TH/cm m 0.0 - 0.1 Not Available [facility] ([facility]) [address] [place] [address], 48714, 10/10/2024 10:15:34 10/10/20 24 10/10/2024 CBC W/ DIFFE RENTI AL* NRBC abs count 0.0 mil/c mm 0.0 - 0.0 Not Available [facility] ([facility]) [address] [place] [address], 59671, 10/10/2024 10:15:34 10/10/20 24 10/10/2024 CBC W/ DIFFE RENTI AL* RBC 3.65 mil/c mm 3.90 - 5.40 low Not Available [facility] ([facility]) [address] [place] [address], 88843, 10/10/2024 10:15:34 10/10/20 24 10/10/2024 CBC W/ DIFFE RENTI AL* hemoglobin 9.9 gm/dL 12.0 - 16.0 low Not Available [facility] (Lab) [address] [place] [address], 14394, 10/10/2024 10:15:34 10/10/20 24 10/10/2024 CBC W/ DIFFE RENTI AL* hematocrit 32 % 37 - 47 low Not Available [facility] (Lab) [address] [place] [address], 07763, 10/10/2024 10:15:34 10/10/20 24 10/10/2024 CBC W/ DIFFE RENTI AL* MCV 89 fL 82 - 92 Not Available [facility] (Lab) [address] [place] [address], 95091, 10/10/2024 10:15:34 10/10/20 24 10/10/2024 CBC W/ DIFFE RENTI AL* MCH 27.1 pg 27.0 - 31.0 Not Available [facility] (Lab) [address] [place] [address], 37865, 10/10/2024 10:15:34 10/10/20 24 10/10/2024 CBC W/ DIFFE RENTI AL* MCHC 30.6 % 32.0 - 36.0 low Not Available [facility] ([facility]) [address] [place] [address], 59985, 10/10/2024 10:15:34 10/10/20 24 10/10/2024 CBC W/ DIFFE RENTI AL* RDW-SD 46.2 fL 39.0 - 49.0 Not Available [facility] (Lab) [address] [place] [address], 98690, 10/10/2024 10:15:34 10/10/20 24 10/10/2024 CBC W/ DIFFE RENTI AL* platelet count 427 TH/cm m 150 - 450 Not Available [facility] (Lab) [address] [place] [address], 81242, 10/10/2024 10:15:34 10/10/20 24 10/10/2024 NOVA GLUCO SE FINGE R HEEL CAPIL LEON glucose cap 81 mg/dL 70 - 116 Not Available [facility] (Lab) [address] [place], [address], 10/10/2024 07:55:16 10/11/20 24 10/11/2024 NOVA GLUCO SE FINGE R HEEL CAPIL LEON glucose cap 161 mg/dL 70 - 116 high Not Available [facility] (Lab) [address] [place] [address], 39500, 10/11/2024 11:49:24 10/11/20 24 10/11/2024 NOVA GLUCO SE FINGE R HEEL CAPIL LEON glucose cap 88 mg/dL 70 - 116 Not Available [facility] ([facility]) [address] [place] [address], 79599, 10/11/2024 07:54:17 10/11/20 24 10/11/2024 BASIC METAB OLIC PANEL (BMP) glucose 95 mg/dL 70 - 116 Not Available [facility] (Lab) [address] [place] [address], 84731, 10/11/2024 07:54:20 10/11/20 24 10/11/2024 BASIC METAB OLIC PANEL (BMP) BUN 74 mg/dL 7 - 17 high Not Available [facility] (Lab) [address] [place] [address], 04648, 10/11/2024 07:54:20 10/11/20 24 10/11/2024 BASIC METAB OLIC PANEL (BMP) creatinine 5.86 mg/dL 0.52 - 1.04 high Not Available [facility] ([facility]) [address] [place] [address], 10955, 10/11/2024 07:54:20 10/11/20 24 10/11/2024 BASIC METAB OLIC PANEL (BMP) sodium serum 141 mmol/ L 136 - 145 Not Available [facility] (Lab) [address] [place], [address], 10/11/2024 07:54:20 10/11/20 24 10/11/2024 BASIC METAB OLIC PANEL (BMP) potassium serum 5.3 mmol/ L 3.4 - 5.2 high Not Available [facility] (Lab) [address] [place], [address], 10/11/2024 07:54:20 10/11/20 24 10/11/2024 BASIC METAB OLIC PANEL (BMP) chloride serum 115 mmol/ L 98 - 107 high Not Available [facility] ([facility]) [address] [place] [address], 99730, 10/11/2024 07:54:20 10/11/20 24 10/11/2024 BASIC METAB OLIC PANEL (BMP) carbon dioxide (co2) 18 mmol/ L 22 - 30 low Not Available [facility] (Lab) [address] [place], [address], 10/11/2024 07:54:20 10/11/20 24 10/11/2024 BASIC METAB OLIC PANEL (BMP) anion gap 8.8 mmol/ L Not Available [facility] (Lab) [address] [place] [address], 42217, 10/11/2024 07:54:20 10/11/20 24 10/11/2024 BASIC METAB OLIC PANEL (BMP) calcium serum 8.4 mg/dL 8.4 - 10.2 Not Available [facility] (Lab) [address] [place] [address], [id number], 10/11/2024 07:54:20 10/11/20 24 10/11/2024 BASIC METAB OLIC PANEL (BMP) age 49 years Not Available [facility] (Lab) [address] [place] [address], [id number], 10/11/2024 07:54:20 10/11/20 24 10/11/2024 BASIC METAB OLIC PANEL (BMP) eGFR (non-afr.naryaan r.) 8 mL/mi n Not Available [facility] (Lab) [address] [place] [address], [id number], 10/11/2024 07:54:20 10/11/20 24 10/11/2024 BASIC METAB OLIC PANEL (BMP) eGFR (afr-aliya n) 9 mL/mi n eGFR <60 ml/mi n for >=3 month s is indic ative of chron ic kidne y The eGFR calcu lated using the MDRD Study equat ion is valid ated non hospi taliz ed patie nts 18 to 70 years of age and is not rep patie nts less than 18 years of age. Not Available [facility] (Lab) [address] [place] [address], [id number], 10/11/2024 07:54:20 10/11/20 24 10/11/2024 BASIC METAB OLIC PANEL (BMP) glucose 95 mg/dL 70 - 116 Not Available [facility] (Lab) [address] [place] [address], [id number], 10/11/2024 07:54:18 10/11/20 24 10/11/2024 BASIC METAB OLIC PANEL (BMP) BUN 74 mg/dL 7 - 17 high Not Available [facility] (Lab) [address] [place] [address], [id number], 10/11/2024 07:54:18 10/11/20 24 10/11/2024 BASIC METAB OLIC PANEL (BMP) creatinine 5.86 mg/dL 0.52 - 1.04 high Not Available [facility] (Lab) [address] [place] [address], [id number], 10/11/2024 07:54:18 10/11/20 24 10/11/2024 BASIC METAB OLIC PANEL (BMP) sodium serum 141 mmol/ L 136 - 145 Not Available [facility] (Lab) [address] [place] [address], [id number], 10/11/2024 07:54:18 10/11/20 24 10/11/2024 BASIC METAB OLIC PANEL (BMP) potassium serum 5.3 mmol/ L 3.4 - 5.2 high Not Available [facility] (Lab) [address] [place] [address], [id number], 10/11/2024 07:54:18 10/11/20 24 10/11/2024 BASIC METAB OLIC PANEL (BMP) chloride serum 115 mmol/ L 98 - 107 high Not Available [facility] (Lab) [address] [place], [id number], 10/11/2024 07:54:18 10/11/20 24 10/11/2024 BASIC METAB OLIC PANEL (BMP) carbon dioxide (co2) 18 mmol/ L 22 - 30 low Not Available [facility] (Lab) [address] [place] [address], [id number], 10/11/2024 07:54:18 10/11/20 24 10/11/2024 BASIC METAB OLIC PANEL (BMP) anion gap 8.8 mmol/ L Not Available [facility] (Lab) [address] [place] [address], [id number], 10/11/2024 07:54:18 10/11/20 24 10/11/2024 BASIC METAB OLIC PANEL (BMP) calcium serum 8.4 mg/dL 8.4 - 10.2 Not Available [facility] (Lab) [address] [place] [address], [id number], 10/11/2024 07:54:18 10/11/20 24 10/11/2024 BASIC METAB OLIC PANEL (BMP) age 49 years Not Available [facility] (Lab) [address] [place], [place] [address], [id number], 10/11/2024 07:54:18 10/11/20 24 10/11/2024 BASIC METAB OLIC PANEL (BMP) eGFR (non-afr.narayan r.) 8 mL/mi n Not Available [facility] (Lab) [address] [place] [address], [id number], 10/11/2024 07:54:18 10/11/20 24 10/11/2024 BASIC METAB OLIC PANEL (BMP) eGFR (afr-aliya n) 9 mL/mi n eGFR <60 ml/mi n for >=3 month s is indic ative of chron ic kidne y The eGFR calcu lated using the MDRD Study equat ion is valid ated non hospi taliz ed patie nts 18 to 70 years of age and is not rep patie nts less than 18 years of age. Not Available [facility] (Lab) [address] [place] [address], [id number], 10/11/2024 07:54:18 10/11/20 24 10/11/2024 CBC W/ DIFFE RENTI AL* WBC 12.04 TH/cm m 5.00 - 10.00 high Not Available [facility] ([facility]) [address] [place] [address], 27363, 10/11/2024 07:36:18 10/11/20 24 10/11/2024 CBC W/ DIFFE RENTI AL* neut % 59.2 % 40.0 - 80.0 Not Available [facility] ([facility]) [address] [place] [address], 76432, 10/11/2024 07:36:18 10/11/20 24 10/11/2024 CBC W/ DIFFE RENTI AL* lymph % 28.6 % 10.0 - 50.0 Not Available [facility] ([facility]) [address] [place] [address], 84528, 10/11/2024 07:36:18 10/11/20 24 10/11/2024 CBC W/ DIFFE RENTI AL* mono % 8.7 % 2.0 - 12.0 Not Available [facility] ([facility]) [address] [place] [address], 70811, 10/11/2024 07:36:18 10/11/20 24 10/11/2024 CBC W/ DIFFE RENTI AL* eos % 2.5 % 0.0 - 8.0 Not Available [facility] ([facility]) [address] [place] [address], 32901, 10/11/2024 07:36:18 10/11/20 24 10/11/2024 CBC W/ DIFFE RENTI AL* baso % 0.5 % 0.0 - 3.0 Not Available [facility] ([facility]) [address] [place] [address], 76098, 10/11/2024 07:36:18 10/11/20 24 10/11/2024 CBC W/ DIFFE RENTI AL* Ig % 0.5 % 0.0 - 1.1 Not Available [facility] ([facility]) [address] [place] [address], 99218, 10/11/2024 07:36:18 10/11/20 24 10/11/2024 CBC W/ DIFFE RENTI AL* NRBC % 0.0 % 0.0 - 0.0 Not Available [facility] ([facility]) [address] [place] [address], 95197, 10/11/2024 07:36:18 10/11/20 24 10/11/2024 CBC W/ DIFFE RENTI AL* neut abs count 7.1 TH/cm m 1.6 - 8.4 Not Available [facility] ([facility]) [address] [place] [address], 25725, 10/11/2024 07:36:18 10/11/20 24 10/11/2024 CBC W/ DIFFE RENTI AL* lymph abs count 3.4 TH/cm m 1.5 - 4.0 Not Available [facility] ([facility]) [address] [place] [address], 17365, 10/11/2024 07:36:18 10/11/20 24 10/11/2024 CBC W/ DIFFE RENTI AL* mono abs count 1.1 TH/cm m 0.2 - 1.0 high Not Available [facility] ([facility]) [address] [place] [address], 07269, 10/11/2024 07:36:18 10/11/20 24 10/11/2024 CBC W/ DIFFE RENTI AL* eos abs count 0.3 TH/cm m 0.0 - 0.5 Not Available [facility] ([facility]) [address] [place] [address], 28087, 10/11/2024 07:36:18 10/11/20 24 10/11/2024 CBC W/ DIFFE RENTI AL* baso abs count 0.1 TH/cm m 0.0 - 0.2 Not Available [facility] ([facility]) [address] [place] [address], 77403, 10/11/2024 07:36:18 10/11/20 24 10/11/2024 CBC W/ DIFFE RENTI AL* Ig abs count 0.1 TH/cm m 0.0 - 0.1 Not Available [facility] ([facility]) [address] [place] [address], 94472, 10/11/2024 07:36:18 10/11/20 24 10/11/2024 CBC W/ DIFFE RENTI AL* NRBC abs count 0.0 mil/c mm 0.0 - 0.0 Not Available [facility] ([facility]) [address] [place] [address], 46755, 10/11/2024 07:36:18 10/11/20 24 10/11/2024 CBC W/ DIFFE RENTI AL* RBC 3.19 mil/c mm 3.90 - 5.40 low Not Available [facility] ([facility]) [address] [place] [address], 90086, 10/11/2024 07:36:18 10/11/20 24 10/11/2024 CBC W/ DIFFE RENTI AL* hemoglobin 8.9 gm/dL 12.0 - 16.0 low Not Available [facility] ([facility]) [address] [place] [address], 04624, 10/11/2024 07:36:18 10/11/20 24 10/11/2024 CBC W/ DIFFE RENTI AL* hematocrit 28 % 37 - 47 low Not Available [facility] ([facility]) [address] [place] [address], 80340, 10/11/2024 07:36:18 10/11/20 24 10/11/2024 CBC W/ DIFFE RENTI AL* MCV 88 fL 82 - 92 Not Available [facility] ([facility]) [address] [place] [address], 87120, 10/11/2024 07:36:18 10/11/20 24 10/11/2024 CBC W/ DIFFE RENTI AL* MCH 27.9 pg 27.0 - 31.0 Not Available [facility] ([facility]) [address] [place] [address], 21659, 10/11/2024 07:36:18 10/11/20 24 10/11/2024 CBC W/ DIFFE RENTI AL* MCHC 31.6 % 32.0 - 36.0 low Not Available [facility] ([facility]) [address] [place] [address], 91665, 10/11/2024 07:36:18 10/11/20 24 10/11/2024 CBC W/ DIFFE RENTI AL* RDW-SD 46.0 fL 39.0 - 49.0 Not Available [facility] ([facility]) [address] [place] [address], 16952, 10/11/2024 07:36:18 10/11/20 24 10/11/2024 CBC W/ DIFFE RENTI AL* platelet count 355 TH/cm m 150 - 450 Not Available [facility] ([facility]) [address] [place] [address], 03485, 10/11/2024 07:36:18 06/29/20 24 05/09/2019 XR, foot, 3 or more view No observ ation record ed. Not Available 06/29 23:52:49 06/29/20 24 01/28/2023 US, abdom en No observ ation record ed. Not Available 06/29 23:52:54 06/29/20 24 05/09/2019 imagi ng/di agnos tic resul t No observ ation record ed. Not Available 06/29 23:53:03 06/29/20 24 04/13/2023 XR, foot No observ ation record ed. Not Available 06/29 23:53:12 06/29/20 24 04/24/2023 XR, foot No observ ation record ed. Not Available 06/29 23:53:13 06/29/20 24 06/23/2023 XR, foot No observ ation record ed. Not Available 06/29 23:53:14 06/29/20 24 01/19/2019 imagi ng/di agnos tic resul t No observ ation record ed. Not Available 06/29 23:53:20 06/29/20 24 01/18/2019 XR, foot No observ ation record ed. Not Available 06/29 23:54:33 06/29/20 24 01/28/2023 US, abdom en No observ ation record ed. Not Available 06/29 23:54:43 10/07/20 24 10/07/2024 CT ABD pelvi s wo IV or oral contr ast [facility] [place] [id number] RADIOL OGY TRANSC RIPTIO N REPORT _ Patien t Name: ERROL RUTH MS MRN: Sex: : Age: [id number] F [id number] Accoun t: Access ion: Admit: StayTy pe: [id number] 2023 E Ordere d: Order ID: Submit curtis: Ordertrey urena Provid er: 2023 14:14 [id number] CAROLINA MCINTOSH Comple curtis: Techno logist : Result ed: 2023 [...] t. If you are a health care [facility] er and have any questi ons regard ing this report , please contac t the number below. For patien ts who have questi ons please contac t the health care profes tino that reques curtis your imagin g first. Electr onical ly signed by: Júnior Vick MD Radiol jimmy schaefer ([phone]), at 2023 3:51 PM INTERFACE [facility] ([facility]) [address] [place] [address], [id number], 10/07/2024 15:57:10 Result Notes None recorded. Problems Name Problem SNOMED Code Status Onset Date Resolution Date Notes Provider Name and Address Organization Details Recorded Time Complica tion due to diabetes mellitus 81890436 Active [address], [address] 4 14:41:01 Gastroes ophageal reflux disease without esophagi tis 454641797 Active [address], [address] 4 15:41:02 Sleep apnea 48320337 Active [address], [address] 4 15:41:33 Dyspnea on exertion 03032736 Active [address], [address] 4 16:02:44 Smoker 97944748 Active [address], [address] 4 16:03:44 Legal blindnes s 72732234 Active [address], [address] 4 16:04:00 Toenail thickene d 591162067 Active [address], [facility] [address] , [facility] 4 16:07:44 Pruritic rash 69244469 Active [address], [facility] [address] , [facility] 4 16:09:31 Retroper itoneal lymphade nopathy 005631835 Active 2023 jelena rivera, [facility] 5 12:10:08 Renal failure syndrome 63102983 Active 2023 jelena rivera, [facility] 5 12:10:41 Acute exacerba tion of chronic obstruct court pulmonar y disease 714454647 Active [address], [facility] [address] , [facility] 5 15:11:03 Acute renal insuffic iency 177881955 Active [address], [facility] [address] , [facility] 5 16:57:59 Essentia l hyperten kevon 47739604 Active 2005 Kristie rivera, [facility] 4 09:53:15 Hyperlip idemia 41649181 Active 2005 Kristie Peters [facility], [facility] 4 10:08:20 Uncompli cated moderate persiste nt asthma 568829861 Active 2005 Kristie Peters [facility], [facility] 4 10:24:46 Severe obesity 52925959894 104 Active 2005 [facility] 4 10:22:09 Chronic hepatiti s C 428384832 Active 2003 pos viral load not treated [facility] 4 09:47:44 Pain of right shoulder joint 00492402369 493628 Active 2014 [facility] 4 10:17:43 Neuropat hy due to type 2 diabetes mellitus 92075947015 9106 Active 2014 uncontro lled, w/neurol o comps [facility] 4 10:17:28 Idiopath ic osteoart hritis 799775813 Active 2014 DJD, knees, bilatera l [facility] 4 10:08:49 Renal disorder due to type 2 diabetes mellitus 232261687 Active 2015 Diabetic nephropa thy [facility] 4 10:21:57 Derangem ent of right knee 66383164866 537524 Completed 201505/05/2016 Problem Code: M23.91; Problem Code Type: ICD-10; Not Available [facility] 3 04:12:16 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 56155132132 9104 Active 2015 (not billable after 6) [facility] 4 10:16:21 Cocaine abuse 84395858 Active 2016 episodic [facility] 4 09:50:22 Tobacco use cessatio n educatio n Active 2016 [facility] 4 10:22:41 Gallblad mark calculus with acute cholecys titis and no obstruct ion 979164060 Completed 201612/29/2016 Problem Code: K80.00; Problem Code Type: ICD-10; Not Available [facility] 3 04:12:17 Acute asthma 103601138 Completed 201604/13/2017 Problem Code: J45.901; Problem Code Type: ICD-10; Not Available [facility] 3 04:12:17 Cellulit is 641870762 Completed 201607/16/2017 Problem Code: L03.90; Problem Code Type: ICD-10; Not Available [facility] 3 04:12:17 Atopic dermatit is 72948395 Active 2017 [facility] 4 09:45:01 Impetigo 25092458 Completed 201705/03/2018 Problem Code: L01.00; Problem Code Type: ICD-10; Not Available [facility] 3 04:12:17 Screenin g mammogra phy Completed 201804/20/2019 Problem Code: Z12.31; Problem Code Type: ICD-10; Not Available [facility] 3 04:12:18 History of diabetic foot ulcer 56506168826 772436 Active 2018 [facility]. 4 10:01:[address] pulmonar y disease 72909490 Active 2018 Asthma with COPD [facility]. 4 09:48:31 Anemia 933931038 Active 2018 [facility]. 4 09:39:01 Albumin level - finding 617638081 Active 2018 decrease d [facility]. 4 09:37:16 Peripher al venous insuffic iency 74735341 Active 2018 Stasis ulcer [facility]. 4 10:18:18 Cough 72083005 Completed 201908/22/2020 Problem Code: R05; Problem Code Type: ICD-10; Not Available [facility] 3 04:12:19 Endocrin e/metabo lic screenin g Completed 202012/28/2020 Problem Code: Z13.29; Problem Code Type: ICD-10; Not Available [facility] 3 04:12:19 Counseli ng Active 2020 Immuniza tion counseli ng [facility] 4 09:51:24 Generali zed anxiety disorder 77800818 Active 2020 [facility] 4 10:01:19 Vomiting 629109380 Completed 202006/26/2021 Problem Code: R11.10; Problem Code Type: ICD-10; Not Available [facility] 3 04:12:19 Insect bite Completed 202007/09/2021 Not Available [facility] 3 04:12:20 Cirrhosi s of liver 83131774 Active 2022 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 with possible contribu tion of [place], decompen sated [facility] 4 09:49:47 Jaundice 25667272 Active 2022 [facility] 4 10:09:01 Muscle weakness 14630350 Active 2022 (general ized) [facility] 4 10:16:46 Opioid abuse 2951955 Completed 202209/28/2023 Problem Code: F11.10; Problem Code Type: ICD-10; Not Available [facility] 4 05:34:22 Lichen simplex chronicu s 65396068 Active 2022 Neuroder matitis [facility] 4 10:10:12 History of osteomye litis 761290131 Active 2022 AMOR Rizzo - [facility]. 4 10:05:22 Opioid abuse 6088145 Completed 201807/14/2023 03/04/20 21 - Comments only - Barney Henderson MD - offered scg for OBT but she states she plans to try to establis h tx thru [facility]. Not interest ed in Suboxone or Vivitrol ; might be interest ed in Sublocad e. Problem Code: F11.10; Problem Code Type: ICD-10; Not Available [facility] 3 04:12:22 Cholelit hiasis without obstruct ion 22340311 Completed 201512/22/2016 Problem Code: K80.20; Problem Code Type: ICD-10; Not Available [facility] 3 04:12:22 Candidia sis of vagina 97822323 Completed 201503/27/2016 Problem Code: B37.3; Problem Code Type: ICD-10; Not Available [facility] 3 04:12:23 Traumati c or non-trau matic injury 610253282 Completed 201607/14/2023 Problem Code: T14.8; Problem Code Type: ICD-10; Not Available [facility] 3 04:12:23 Disorder of teeth AND/OR supporti ng structur es 242897682 Completed 201503/17/2016 Problem Code: K08.8; Problem Code Type: ICD-10; Not Available [facility] 3 04:12:23 Uncompli cated asthma 196590622 Completed 200507/14/2023 Problem Code: J45.909; Problem Code Type: ICD-10; Not Available [facility] 3 04:12:23 Hyperten sive disorder 35738489 Completed 200507/14/2023 Not Available [facility] 3 04:12:24 Scar conditio ns and fibrosis of skin 051868969 Completed 201604/23/2017 Problem Code: L90.5; Problem Code Type: ICD-10; Not Available [facility] 3 04:12:24 Human papillom a virus infectio n 819646820 Completed 201607/14/2023 Problem Code: B97.7; Problem Code Type: ICD-10; Not Available [facility] 3 04:12:24 Morbid obesity 392130751 Completed 200507/14/2023 Not Available [facility] 3 04:12:24 Foot ulcer due to type 2 diabetes mellitus 88672077339 00 Completed 201512/22/2016 01/20/20 19 - Comments [...] E11.621; Problem Code Type: ICD-10; Kristie rivera [facility] 4 09:59:50 Periapic al abscess 222144270 Completed 201403/17/2016 Problem Code: K04.7; Problem Code Type: ICD-10; Not Available [facility] 3 04:12:25 Drug abuse 58338393 Completed 200707/14/2023 Problem Code: 305.90; Problem Code Type: ICD-9; Not Available [facility] 3 04:12:25 Opioid dependen ce in remissio n 655481401 Completed 201807/14/2023 09/26/20 19 - Comments only [...] Code Type: ICD-10; Not Available [facility] 3 04:12:25 Gynecolo gic examinat ion Completed 201602/02/2017 Problem Code: Z01.419; Problem Code Type: ICD-10; Not Available [facility] 3 04:12:26 Nodule on toe 789711466 Completed 201605/25/2019 Not Available [facility] 3 04:12:26 Pain of right knee joint 32183935030 4100 Completed 201502/02/2017 Problem Code: M25.561; Problem Code Type: ICD-10; Not Available [facility] 3 04:12:26 Candidia sis of skin 98977634 Completed 201503/27/2016 Problem Code: B37.2; Problem Code Type: ICD-10; Not Available [facility] 3 04:12:26 Dysuria 43406564 Completed 201505/07/2016 Problem Code: R30.0; Problem Code Type: ICD-10; Not Available [facility] 3 04:12:27 Retinopa thy due to type 2 diabetes mellitus 412886051 Completed 201507/14/2023 Problem Code: E11.319; Problem Code Type: ICD-10; Not Available [facility] 3 04:12:27 Infectio n of skin and/or subcutan eous tissue 36972737 Completed 202204/30/2023 Problem Code: L08.89; Problem Code Type: ICD-10; Not Available [facility] 3 04:12:27 Tobacco dependen ce caused by cigarett es 25698439067 006473 Completed 200305/25/2019 Problem Code: F17.210; Problem Code Type: ICD-10; Not Available [facility] 3 04:12:27 Opioid dependen ce 17104755 Completed 200309/04/2015 05/25/20 19 - Comments only - Alexandro Grewal - Doing well in treatmen t at [facility]. Problem Code: F11.20; Problem Code Type: ICD-10; Not Available [facility] 3 04:12:28 Asthma 868853630 Completed 200507/14/2023 Not Available [facility] 3 04:12:28 Pain of joint of knee 6998419158 Completed 201407/14/2023 Problem Code: M25.569; Problem Code Type: ICD-10; Not Available [facility] 3 04:12:28 Cellulit is of right lower limb 38553037209 822034 Completed 201805/25/2019 Problem Code: L03.115; Problem Code Type: ICD-10; Not Available [facility] 3 04:12:28 Shoulder joint pain 629767666 Completed 201407/14/2023 Problem Code: 719.41; Problem Code Type: ICD-9; Not Available [facility] 3 04:12:29 Smoker 88408092 Completed 200307/14/[address], [facility] [address] , [facility] 4 16:03:44 Chronic ulcer of foot 464886134 Completed 201601/05/2017 Problem Code: L97.529; Problem Code Type: ICD-10; Not Available [facility] 3 04:12:29 Type 2 diabetes mellitus without complica tion 586822467 Completed 200307/14/2023 Problem Code: 250.00; Problem Code Type: ICD-9; MD Shailesh [address], [place], [address] , [facility] 4 14:43:16 Pain of left knee joint 03465065147 4107 Completed 201407/14/2023 Problem Code: M25.562; Problem Code Type: ICD-10; Not Available [facility] 3 04:12:30 Depressi ve disorder 71729894 Completed 200307/14/[address], [facility] [address] [facility] 4 14:41:17 Hypergly cemia due to type 2 diabetes mellitus 04843065506 9109 Completed 200309/04/2015 Problem Code: E11.65; Problem Code Type: ICD-10; Not Available [facility] 3 04:12:30 Chest pain 92738487 Completed 201605/25/2019 Problem Code: R07.89; Problem Code Type: ICD-10; Not Available [facility] 3 04:12:31 Drug dependen ce 804344448 Completed 200307/14/2023 Problem Code: 304; Problem Code Type: ICD-9; Not Available [facility] 3 04:12:31 Cellulit is of toe of right foot 49928325068 459307 Completed 201505/11/2016 Problem Code: L03.031; Problem Code Type: ICD-10; Not Available [facility] 3 04:12:31 Osteoart hritis of knee 874350202 Completed 201402/02/2017 Problem Code: M17.9; Problem Code Type: ICD-10; Not Available [facility] 3 04:12:32 History of infectio us disease 280430052 Completed 201409/04/2015 Problem Code: Z86.19; Problem Code Type: ICD-10; [facility] 10:05:01 Tobacco user 749174712 Completed 200508/06/2015 Not Available [facility] 3 04:12:32 Viral screenin g Completed 202209/10/2023 Problem Code: Z11.52; Problem Code Type: ICD-10; Not Available [facility] 4 05:34:15 Acute upper respirat ory infectio n 91254843 Completed 202208/18/2023 Problem Code: J06.9; Problem Code Type: ICD-10; Not Available [facility] 4 05:34:15 Type 2 diabetes mellitus without complica tion 174901496 Completed 202309/01/2024 Problem Code: 250.00; Problem Code Type: ICD-9; BARNEY HENDERSON MD [address], [place], [address] , [facility] 4 14:43:16 Asthma-c hronic obstruct court pulmonar y disease overlap syndrome 86997522541 880547 Active 2023 [facility] 4 09:39:21 Decompen sated cirrhosi s of liver 737102954 Active 2023 Child Bourgeois score 8/Class B as of 12/2022 [facility] 4 09:51:34 Visual impairme nt 901800923 Active 2023 [facility] 4 10:29:20 Thickene d nails 615122506 Active 2023 [facility] 4 10:22:14 Thickeni ng of skin 13849143 Completed 202309/01/[address], [place], [address] , [facility] 4 14:43:15 Acquired hammer toes of bilatera l feet 69516443861 981551 Active 2023 [facility], [facility] 4 09:37:02 History of amputati on of right foot 36996172427 761151 Active 2023 [facility] 4 10:01:25 Combined form of senile cataract 14566617 Active 2023 [facility] 4 09:50:32 Unintent ional weight loss 963034832 Active 2022 [facility] 4 10:24:46 History of amputati on of lesser toe 271872292 Active 2022 [facility] 4 09:38:36 History of intraven ous drug abuse 16251812275 419341 Active 2007 heroin [facility] 4 09:40:14 Left ventricu lar hypertro phy 15426019 Active 2015 mild concentr ic 12/31 echo (nl EF) [facility] 4 09:47:08 Follicul itis 99201034 Active 2022 [facility] 4 09:52:22 Peripher al edema 684732675 Active 2014 [facility] 4 09:52:55 Mild persiste nt asthma 319563658 Active 2022 with acute exacerba tion [facility] 4 09:54:28 Family history of Alzheime r's disease 826935694 Active 2018 mother age 50, maternal grandmot her, maternal aunts and uncles; no genetic testing done [facility] 4 09:56:26 Diabetic foot ulcer 216958181 Active 2022 [facility] 4 09:59:46 History of cholecys tectomy 989834878 Active 2016 laparosc opic, 01/01 [facility] 4 10:00:55 History of human papillom a virus infectio n 28737231085 9102 Active 01/01; nl pap; neg colpo 04/03 incl ECC; neg pap 11/05; 5 yr f/u [facility] 4 10:04:56 History of opioid abuse 66273704740 9100 Active 2018 Hx of opioid abuse -- [facility] resumed suboxone 09/07 [facility] 4 10:08:01 Edentulo 239039428 Active 2015 s/p complete extr due to advanced caries 03/02 [facility] 4 10:13:37 Major depressi ve disorder 077668873 Active 2022 Major depressi on [facility] 4 10:15:28 Traumati c partial amputati on of right great toe Active 2018 initial encounte r [facility] 4 10:23:54 Stasis dermatit is 13902812 Active 2021 Venous stasis dermatit is [facility] 4 10:30:44 Diabetes mellitus 76009268 Completed 202309/01/[address], [place], [address] , [facility] 4 14:43:16 Type 2 diabetes mellitus 64506148 Completed 202309/01/[address], [place], [address] , [facility] 4 14:43:16 Obesity 938097569 Active [address], [place], [address] , [facility] 4 20:58:25 Hemoglob in A1c greater than 9% indicati ng poor diabetic control 82900898420 4104 Completed 202309/01/2024 BARNEY HENDERSON MD [address], [place], [address] , [place] [facility] 14:43:16 Problem Notes None recorded. Procedures Surgical History None recorded. Imaging Results Imaging Date Name Status LastModified by Organiz ation Details LastModified Time 05/09/2019 XR, foot, 3 or more view completed Information not available 06/29/2024 23:52:49 01/28/2023 US, abdomen completed Information n ot available 06/29/2024 23:52:54 05/09/2019 imaging/diagn ostic result completed Information not available 06/29/2024 23:53:03 04/13/2023 XR, foot completed Information no t available 06/29/2024 23:53:12 04/24/2023 XR, foot completed Information no t available 06/29/2024 23:53:13 06/23/2023 XR, foot completed Information no t available 06/29/2024 23:53:14 01/19/2019 imaging/diagn ostic result completed Information not available 06/29/2024 23:53:20 01/18/2019 XR, foot completed Information no t available 06/29/2024 23:54:33 01/28/2023 US, abdomen completed Information n ot available 06/29/2024 23:54:43 10/07/2024 CT ABD pelvis wo IV or oral contrast completed [facility] (Lab) [address] [place] [address], [address], 10/07/2024 15:57:10 Procedure Notes None recorded. Medical Equipment None Reported. Allergies Allergen ID Allergen Name Allergen Category Reaction Reaction Severity Criticality Documentation Date Start Date Code Code System Note Provider Name and Address Organization Details Recorded Time 79534 lisinopri l medicatio n cough moderate Not available 08/27/20232009 02490 RxNorm Kristie rivera [facility] 10:31:16 53440 metoprolo l succinate medicatio n other moderate Not available 08/27/20232018 16344 4 Rx[facility] No react [facility] 10:31:36 23417 codeine medicatio n hives moderate Not available 08/27/20232002 2670 RxNorm Kristie Peters [facility] 4 10:31:10 Medications Name Sig Start Date [...] Stockings Dx: peripher al edema 11/04 completed [place] Not Available Not Available Not Available gabapenti n 300 mg tablet 3 cap three times daily 06/16 completed Not Available Not Available Not Available albuterol 2INH four times daily 07/31 completed Not Available Not Available Not Available Nystatin (Topical) cream apply BID 05/28 completed Not Available Not Available Not Available Nebulizer Dx: Asthma J45.40 Smoking Z71.6 2018 active [place] in [place] Not Available Not Available Not Available Humalog [...] Dose change to 18mg q day per [facility] 04/12/19; 20mg as of 03/2020 Not Available Not Available Not Available Suboxone 2 mg-0.5 mg sublingua l film Take 2 film sublingu ally once daily 05/08 completed Per [facility] 04/12/19, total daily dose increase d to 20mg Not Available Not Available Not Available OneTouch Delica Lancets 30 gauge Test Blood Glucose 4 times daily and as needed 2016 active Not Available Not Available Not Avai lable BD Insulin Syringe Ultra-Fin e 1 mL 31 gauge x 5/16 Use 1 syringe as directed four times [...] completed Not Available Not Available Not Available Annmarie SoloStar U-300 Insulin 300 unit/mL (1.5 mL) [...] Ultra-Fin e 1 mL 31 gauge x 15/64 USE DIRECTED FOUR TIMES DAILY NEEDED 11/03 [...] and Address Organization Details Last Updated DateTime 160.02 cm 34.9 kg/m2 44348.1 g 97.5 [degF] 98 % 98 % 92 /min 120 mm[Hg] 68 mm[Hg] SURJIT KITCHEN LPN [facility] 4 13:34:37 Date Recorded Body height Oxygen saturation Oxygen saturation in Arterial blood by Pulse oximetry Body temperature Heart rate Body mass index (BMI) Body weight Systolic blood pressure Diastolic blood pressure Provider Name and Address Organization Details Last Updated DateTime 4 160.02 cm 98 % 98 % 98.2 [degF] 70 /min 36.7 kg/m2 80578.6 2 g 126 mm[Hg] 74 mm[Hg] SURJIT KITCHEN LPN [facility] 4 10:39:01 Date Recorded Body height Body mass index (BMI) Body weight Body temperature Oxygen saturation Oxygen saturation in Arterial blood by Pulse oximetry Heart rate Systolic blood pressure Diastolic blood pressure Provider Name and Address Organization Details Last Updated DateTime 4 160.02 cm 35.5 kg/m2 19844.9 1 g 97.5 [degF] 94 % 94 % 88 /min 168 mm[Hg] 98 mm[Hg] ARMIDA HIRSCH MA [facility] 4 15:02:01 Date Recorded Body height Body mass index (BMI) Body weight Body temperature Oxygen saturation Oxygen saturation in Arterial blood by Pulse oximetry Heart rate Systolic blood pressure Diastolic blood pressure Provider Name and Address Organization Details Last Updated DateTime 4 155.58 cm 35.5 kg/m2 72456.3 9 g 97.8 [degF] 96 % 96 % 79 /min 126 mm[Hg] 72 mm[Hg] ROSIBEL SALGADO RN [facility] 4 13:24:33 Date Recorded Body height Body mass index (BMI) Body weight Body temperature Oxygen saturation Oxygen saturation in Arterial blood by Pulse oximetry Heart rate Systolic blood pressure Diastolic blood pressure Provider Name and Address Organization Details Last Updated DateTime 5 155.58 cm 36.9 kg/m2 94514.7 g 97.7 [degF] 91 % 91 % 104 /min 178 mm[Hg] 82 mm[Hg] ARMIDA HIRSCH MA [facility] 14:46:25 Date Recorded Body height Provider Name an d Address Organization Details Last Updated DateTime 10/19/2024 155.58 cm Alexa Sorto LPN [facility] 10/19/2024 15:34:50 Date Recorded Systolic blood pressure Diastolic blood pressure Provider Name and Address Organization Details Last Updated DateTime 10/19/2024 158 mm[Hg] 82 mm[Hg] BARNEY HENDERSON MD [address], [place], [address], [facility] 10/19/2024 16:50:46 Social History Question Answer Notes LastModified by Organizat ion Details LastModified Time Tobacco Smoking Status Current Every Day Smoker SURJIT KITCHEN LPN null, [facility] 11/03/2023 13:42:55 Date Of Most Recent HSA 10/06/2024 [email or web address] Information not available 10/06/2024 Would You Say That, In General, Your Health Is Poor [email or web address] Information not available 10/06/2024 Women Aged 18-50 - Would You Like To Become In The Next Year? (Female Patients Only) No Information not available 10/06/2024 How Often Does Anyone, Including Family, Physically Hurt You? Never [email or web address] Information not available 10/06/2024 How Often Does Anyone, Including Family, Insult Or Talk Down To You? Never [email or web address] Information no t available 10/06/2024 How Often Does Anyone, Including Family, Threaten You With Harm? Never Information not available 10/06/2024 How Often Does Anyone, Including Family, Scream Or Curse At You? Never [email or web address] Information not available 10/06/2024 Within The Past 12 Months, You Worried That Your Food Would Run Out Before You Got Money To Buy More. Sometimes True [email or web address] Information not available 10/06/2024 Within The Past 12 Months, The Food You Bought Just Didn't Last And You Didn't Have Money To Get More. Sometimes True [email or web address] Information not available 10/06/2024 How Hard Is It For You To Pay For The Very Basics Like Food, Housing, Medical Care, And Heating? Would You Say It Is: Very Hard [email or web address] Information not available 10/06/2024 In The Past 12 Months, Has Lack Of Reliable Transportation Kept You From Medical Appointments, Meetings, Work Or From Getting Things Needed For Daily Living? Yes [email or web address] Information not available 10/06/2024 What Is Your Housing Situation Today? I Have Housing. Information not available 10/06/2024 How Often In The Past Year Have You Used Marijuana (including Smoking, Vaping, Dabbing, Or Edibles)? Never [email or web address] Information not available 10/06/2024 How Often In The Past Year Have You Used Prescription Medications That Were Not Prescribed To You? Never [email or web address] Information not available 10/06/2024 How Often In The Past Year Have You Taken Your Own Prescription Medication More Than The Way It Was Prescribed Or For Different Reasons Than Its Intended Purpose? Never [email or web address] Information no t available 10/06/2024 How Often In The Past Year Have You Used Other Drugs (for Example, Heroin, Cocaine, Meth, Salvia, Inhalants)? Never [email or web address] Information not available 10/06/2024 Have You Ever Used IV Drugs? Yes 10 Years Ago [email or web address] Information not available 10/06/2024 What Matters Most To You? Vision, Overall Health [email or web address] Information not available 10/06/2024 During The Past Four Weeks Has Your Physical And Emotional Health Limited Your Social Activities With Family And Friends, Neighbors, Or Groups? Moderately [email or web address] Information not available 10/06/2024 During The Past Four Weeks, Was Someone Available To Help You If You Needed And Wanted Help? (For Example, If You [place] Very Nervous, Lonely, Or Blue; Got Sick And Had To Stay In Bed; Needed Someone To Talk To; Needed Help With Daily Chores; Or Needed Help Just Taking Care Of Yourself.) Yes- Quite A Bit [email or web address] Information not available 10/06/2024 During The Past Four Weeks, What Was The Hardest Physical Activity You Could Do For At Least 2 Minutes? Heavy [email or web address] Information not available 10/06/2024 Can You Get To Places Out Of Walking Distance Without Help? (For Example, Can You Travel Alone On Buses Or Taxis, Or Drive Your Own Car?) No [email or web address] Information not available 10/06/2024 Can You Go Shopping For Groceries Or Clothes Without Someone? s Help? No [email or web address] Information not available 10/06/2024 Can You Prepare Your Own Meals? No [email or web address] Information not available 10/06/2024 Can You Do Your Housework Without Help? Yes [email or web address] Information not available 10/06/2024 Because Of Any Health Problems, Do You Need The Help Of Another Person With Your Personal Care Needs Such As Eating, Bathing, Dressing, Or Getting Around The House? Yes [email or web address] Information not available 10/06/2024 Can You Handle Your Own Money Without Help? Yes Information not available 10/06/2024 Are You Having Difficulties Driving Your Car? Not Applicable- I Do Not Use A Car [email or web address] Information not available 10/06/2024 How Often During The Past Four Weeks Have You Been Bothered By Any Of The Following Problems? Falling Or Dizzy When Standing Up? Often [email or web address] Information not available 10/06/2024 Sexual Problems? Never Informat ion not available 10/06/2024 Trouble Eating Well? Never [email or web address] Information not available 10/06/2024 Teeth Or Denture Problems? Always [email or web address] Information not available 10/06/2024 Problems Using The Telephone? Always Can't See Phone [email or web address] Information not available 10/06/2024 Tiredness Or Fatigue? Always Information not available 10/06/2024 Have You Had 2 Or More Falls Or Sustained An Injury With A Fall In The Last Year? Yes [email or web address] Information not available 10/06/2024 Do You Have Difficulty With Walking Or Balance? Yes Information not available 10/06/2024 Do You Currently Use A Hearing Device? No [email or web address] Information not available 10/06/2024 Do You Currently Have Any Trouble With Your Vision? Yes [email or web address] Information no t available 10/06/2024 Do You Exercise For About 20 Minutes Three Or More Days A Week? No- I Usually Do Not Exercise Much [email or web address] Information not available 10/06/2024 Are There Any Safety Concerns In Your Home (see Attached CDC Pamphlet)? Yes Stairs, Cooking [email or web address] Information not available 10/06/2024 How Often Do You Have Trouble Taking Medicines The Way You Have Been Told To Take Them? Sometimes I Take Them As Prescribed Information not available 10/06/2024 How Confident Are You That You Can Control And Manage Most Of Your Health Problems? Somewhat Confident [email or web address] Information not available 10/06/2024 Do You Currently Have Any Difficulty With Your Hearing? No [email or web address] Information not available 10/06/2024 Date Of Most Recent SBINS 10/06/2024 [email or web address] Information not available 10/06/2024 What Was The Date Of Your Most Recent Tobacco Screening? 10/06/2024 [email or web address] Information not available 10/06/2024 What Is Your Current Pack Years? 30ormorepacky ears Information not available 11/03/2023 At What Age Did You Start Smoking Tobacco? 14 Information not available 11/03/2023 How Much Tobacco Do You Smoke? 1 PPW Information not available 11/03/2023 Has Tobacco Cessation Counseling Been Provided? Yes Pt Declines. [email or web address] Information not available 10/06/2024 On What Date Was Tobacco Cessation Counseling Provided? 10/06/2024 Pt Just Not Ready Yet. [email or web address] Information not available 10/06/2024 How Many Years [...] Time Mother Family history of kidney disease [email or web address] Not available 2022 03:50:23 Mother Family history of diabetes mellitus type 1 [email or web address].70 Not available 2022 03:50:26 Notes:*Problem: Mother: chichi [...] mcg/0.3 mL 4 completed ARMIDA HIRSCH MA [facility], [facility] - [facility] 09/01/2024 18:38:23 Influenza, split virus, trivalent, PF 4 completed BARNEY HENDERSON MD [address], [place], [address], [facility] 09/01/2024 16:09:15 Td (adult), 5 Lf tetanus toxoid, preservative free, adsorbed 7 completed Not Available [facility] 08/27/2023 06:21:08 Tdap 7 completed Not Available [facility] 08/27/2023 06:21:08 Novel [id number], all formulations 9 completed Not Available [facility] 08/27/2023 06:21:08 Td(adult) unspecified formulation 1 completed Not Available [facility] 08/27/2023 06:21:08 Influenza, split virus, trivalent, preservative 6 completed Not Available [facility] 08/27/2023 06:21:08 Influenza, split virus, quadrivalent, PF 2 completed Not Available [facility] 08/27/2023 06:21:08 Influenza, split virus, quadrivalent, PF 3 completed Not Available [facility] 08/27/2023 06:21:08 Influenza, split virus, quadrivalent, preservative 8 completed Not Available [facility] 08/27/2023 06:21:09 COVID-19, mRNA, LNP-S, PF, 100 mcg/0.5mL dose or 50 mcg/0.25mL dose 2 completed Not Available [facility] 08/27/2023 06:21:09 COVID-19 vaccine, vector-nr, rS-Ad26, PF, 0.5 mL 1 completed Not Available [facility] 08/27/2023 06:21:09 COVID-19, mRNA, LNP-S, bivalent, PF, 30 mcg/0.3 mL dose 3 completed Not Available [facility] 08/27/2023 06:21:09 pneumococcal polysaccharide PPV23 0 completed Not Available [facility] 08/27/2023 06:21:09 influenza, unspecified formulation 9 completed Not Available [facility] 08/27/2023 06:21:09 influenza, unspecified formulation 8 completed Not Available [facility] 08/27/2023 06:21:09 influenza, unspecified formulation 7 completed Not Available [facility] 08/27/2023 06:21:09 Influenza, split virus, quadrivalent, PF 3 completed Not Available [facility] 10/29/2023 05:31:09 Pneumococcal conjugate PCV20, polysaccharide IRD350 conjugate, adjuvant, PF 3 completed Not Available [facility] 10/29/2023 05:31:11 Past Encounters Encounter ID Performer Location Encounter Start Date Encounter Closed Date Diagnosis/Indication Diagnosis SNOMED-CT Code Diagnosis ICD10 Code [id number] [address] [address] 11/03/2023 13:24:44 11/03/2023 17:12:31 Asthma-chronic obstructive pulmonary disease overlap syndrome 4092952520 5218627 J44.9 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 3507801409 25945 E11.3399 Chronic hepatitis C 1283 74695 B18.2 Uncomplica curtis moderate persistent asthma 348769486 J45.40 Decompensa curtis cirrhosis of liver 129324528 K74.60 Essential hypertension 45874167 I10 Insomnia 076512787 G47.0 0 Visual impairment 570285 003 H54.7 [id number] BARNEY HENDERSON MD [address] [place] [address] 03/06/2024 10:29:25 03/06/2024 12:06:45 Pre-surgery evaluation 106728394 Z01.818 Peripheral edema 3265844 00 R60.9 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 2229602706 98115 E11.3399 Type 2 ana betes mellitus 20060819 E11.8 Obesity 458158146 E66.9 Neuropathy due to type 2 diabetes mellitus 0191766514 64998 E11.40 [id number] BARNEY HENDERSON MD [facility] [address] [place] [address] 09/01/2024 14:30:48 09/01/2024 15:49:47 Asthma-chronic obstructive pulmonary disease overlap syndrome 2570730606 2379303 J44.9 Essential hypertension 20148089 I10 Anxiety 04310689 F41.9 Neuropathy due to type 2 diabetes mellitus 1074049425 62085 E11.40 Hyperlipidemia 10355785 E78.5 Gastroesop hageal reflux disease without esophagitis 872218462 K21.9 Sleep apnea 90879683 G47 .30 History of fall 55126656 9 Z91.81 Active or passive immunization 979486969 Z23 Dyspnea on exertion 6084 5006 R06.09 Smoker 29775964 F17.210 Tobacco us e cessation education 835370280 Z71.6 Legal blindness 68588075 H54.8 Food insecurity 52242840 3 Z59.41 Chronic hepatitis C 1283 19060 B18.2 Toenail thickened 557688 000 R23.8 Pruritic rash 28383353 L 28.2 [id number] ROSIBEL SALGADO RN [facility] [address] [place] [address] 10/06/2024 12:53:21 10/06/2024 14:03:34 Adult health examination 916871303 Z00.00 Muscle weakness 55364834 M62.81 Decompensa curtis cirrhosis of liver 298208273 K74.60 Hyperlipidemia 57887260 E78.5 Chronic hepatitis C 1283 88458 B18.2 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 2892658166 6530395 J44.9 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 47387017 E11.8 [id number] BARNEY HENDERSON MD [facility] [address] [place] [address] 10/19/2024 14:35:21 10/19/2024 17:05:19 Acute exacerbation of chronic obstructive pulmonary disease 102698609 J44.1 Renal fail ure syndrome 54012842 N19 Decompensa curtis cirrhosis of liver 556871208 K74.60 Chronic hepatitis C 1283 67536 B18.2 Acute randa l insufficiency 481336091 N28.9 Essential hypertension 67135516 I10 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 35018773 E11.8 Tobacco us e cessation education 044731901 Z71.6 History of opioid abuse 2286268403 47866 F11.11 Retroperit antonio lymphadenopathy 644690156 R59.0 Health Concerns Section Related Observation LastModified by Organization Detai ls LastModified Time None Recorded Concern Status LastModified by Organization Details LastModified Time None Recorded Advance Directives Directive None Recorded Payers Encounter Date Sequence Insurance Name Policy Number Policy Salmon Covered Member ID Salmon Member ID Guarantor Name 11/03/2023 2 [employer] (MEDICAID) Lea Vasquez [id number] Lea Vasquez 03/06/2024 2 [employer] ([employer]ICAID) Lea Vasquez [id number] Lea Vasquez 09/01/2024 2 [employer] (MEDICAID) Lea Vasquez [id number] Lea Vasquez 09/01/2024 1 [place] Lea Vasquez [id number] Lea Vasquez 10/06/2024 2 [employer] (MEDICAID) Lea Vasquez [id number] Lea Vasquez 10/06/2024 1 [place] Lea Vasquez [id number] Lea Vasquez 10/19/2024 2 [employer] (MEDICAID) Lea Vasquez [id number] Lea Vasquez 10/19/2024 1 [place] Lea Vasquez [id number] Lea Vasquez Notes Date Note Type Note Provider Name and Address Organization Details Recorded Time 11/03/2023 text/html Lea Vasquez is a 48yo F with a PMH of chronic HCV, cirrhosis, COPD and asthma, HTN, HLD, osteomyelitis s/p partial amputation, INDRA, DM2 c/b non-proliferative retinopathy, OUD on methadone who presents today for follow-up. Lea reports that her eyesight has become progressively worse over several months. She states she has a prescription eyeglasses, but has not had an eye exam in several years. She denies pain, diplopia, headaches, or eye infections. She states she missed a recent appointment with an loan representative and that practice asked her not to return. Lea states that she is having pain in her R foot. She states that calluses have formed under the foot and that she has pain with walking and the foot sometimes makes popping noises. She states she has an appointment next week with Dr. Oliver at [facility]. Lea reports she is doing well with her diabetes control. She usually checks her sugars three times per day and uses sliding scale insulin with meals. She states that she is having one BM per week, which is baseline for her on methadone. She takes miralax three times per week but says it makes her stomcah cramps so she can't tolerate more often. Lea states that she has an upcoming appointment with [facility] for an evaluation for her chronic hepatitis C. She is open to treatment at this time. Denies recent illness, chest pain, SOB beyond baseline, altered mental status or abdominal swelling. BARNEY HENDERSON MD [address], [place], [address], [facility]. 11/04/2023 10:12:19 03/06/2024 text/html Surgery to be performed by {{ Dr Mir#}} on {{DATE 03/21/2024}}. Cataract repair (with injections prior).The patient presents for a pre-surgery evaluation and discusses issues with insulin supply, weight gain, and visual impairment. Encounter for preprocedural examination: The patient has a scheduled appointment for eye surgery in March and April. They are required to have an examination prior to surgery to assess their overall health and fitness for the procedure. The surgery aims to improve the patient's visual impairment, allowing them to drive again. Type 2 diabetes mellitus with diabetic retinopathy: They have been taking Tresiba insulin but experienced a 20-day supply interruption, which has resulted in elevated blood sugar levels. The patient is now back on Tresiba and is working to regain control of their blood sugar levels. Weight gain: The patient admits to eating more and being less active due to their visual impairment. They have gained approximately 10 pounds recently and are working to regain control of their diet and activity levels. SH- Tobacco use: Patient smokes - Employment/School: Patient receives Social Security benefits and is now able to pay their bills independently - Living situation: No changes reported - Financial concerns: Improved due to Social Security benefits BARNEY HENDERSON MD [address], [place], [address], [facility]. 03/06/2024 21:00:23 09/01/2024 text/html CC: f/u COPD, vi sual impairment d/t diabetic retinopathy and cataracts, DM2, HTN The patient, Lea, presents with multiple concerns. She reports not having her eyes fixed (cataract repair) due to missed appointments, with a rescheduled appointment for cataract surgery measurement on March 27. Lea's oxygen level is 94% at home, but she experiences mouth breathing and gasping for air while sleeping, which wakes her up. She reports increased shortness of breath, especially when walking across the sales to the bathroom at night, leading to the use of her inhaler at least five times a day. The patient cannot lay back and has to sit up, a consistent issue that has worsened recently. Lea has been off her blood pressure medication for two weeks and wonders if this could be contributing to her shortness of breath. She reports a weight loss of seven pounds since her last visit a month or a couple of months ago, attributing this to healthy changes in her diet. She has been out of all her meds for 2 weeks. The patient mentions a rash on her upper back that is itchy and stinging, which she has been scratching. She is currently only using albuterol as an inhaler and needs to refill her Breo prescription. Lea has been trying to cut down on smoking, now down to half a pack a day from a pack. She feels she would like to apply for choices for care as she could use more help in the home. She is no longer able to cook due to her visual impairment. She fell recently trying to get into a minivan. Fortunately did not sustain injuries. She remains in treatment with methadone thru [facility] but hopes to have split dosing as she is feels mild withdrawal symptoms late in the day. BARNEY HENDERSON MD [address], [place], [address], [facility]. 09/01/2024 16:11:54 10/06/2024 text/html CC: Medicare wel lness visit, f/u diabetes with complications, cirrhosis, asthma with COPD, and depressionPatient seen for MWV. HSA reviewed, no concerns. No cognitive concerns. Care team, med , FH, SH reviewed and updated. Lea presents for a Medicare wellness visit and follow-up on multiple conditions including diabetes with complications, cirrhosis related to chronic untreated Hepatitis C, asthma with COPD, and depression. She reports difficulties obtaining certain medications, particularly Trelegy, due to insurance issues and copay costs. Lea has been using an old albuterol inhaler for her asthma and describes her lungs as a little squeaky but otherwise ok. The patient expresses interest in the [facility] and Meals on Wheels programs. She is open to having a physical therapist visit for general strengthening, balance, and confidence building. Lea reports no issues with transportation, mentioning she can access [facility] and that [facility] is reliable. She is open to working with the [facility] casework supervisor Chari whom she met at the beginning of today's visit for the first time. Lea notes that her partner has not initiated Hepatitis C treatment, but states this is not currently a concern. She mentions that the medication affects intimacy and adds that her partner is almost 60 years old. ROSIBEL SALGADO RN [facility], [facility]. 10/06/2024 16:21:16 10/19/2024 text/html CC: f/u hospitalization for acute [...] 158/82 BARNEY HENDERSON MD [address], [place], [address], [facility]. 10/19/2024 17:05:17 OBGyn Episode No OBEpisode recorded.
--- OUTSIDE RECORDS SUMMARY | 2024-10-19 21:14 | XMS_ITS | Encounter Summary ---
Author Organization [facility] Address [address] [place] [address] Care Team Providers Care Cook Restaurant Name Role Phone Sharon Vargas MD Primary Care Provider [phone] Encounter Details Date Type Department Care Team (Late st Contact Info) Description 04/21/2023 Lab Requisition [facility] Pathology & Laboratory Medicine - [facility] [address] [place] [address] Outr Resulting Lab, Provider Social History Tobacco [...] Info) Description 10/27/2024 14:15 EST Office Visit [facility] [address] [place] [address] Consuelo Nicole MD [address] [place] [address] documented as of this encounter Procedures Procedure Name Priority Date/Time Associated Diagnosis Comments ANAEROBE CULTURE, REFERENCE Routine 04/21/2023 14:17 EDT documented in this encounter Results * ANAEROBE CULTURE, REFERENCE (04/21/2023 14:17 EDT) Organism ID No Anaerobes Isolated 05/01/2023 12:00 EDT [facility] Tissue ENTIRE TOE / Unknown 04/21/2023 14:17 EDT 04/21/2023 21:25 EDT us Provider Outr Resulting Lab MICROBIOLOGY - GENER AL ORDERABLES Final Result Performing Organization Address City/State/[facility] Co de Phone Number [facility] [address] [place] [address] documented in this encounter Visit Diagnoses Not on filedocumented in this encounter Care Teams Cook Restaurant Relationship Specialty Start Date End Date Sharon Vargas MD [address] [place] [address] PCP - General 09/09/15 documented as of this encounter
--- OUTSIDE RECORDS SUMMARY | 2024-10-19 21:14 | XMS_ITS | Encounter Summary ---
Author Organization [facility] Address [address] [place] [address] Care Team Providers Care Retail Salesperson Name Role Phone Sharon Vargas MD Primary Care Provider [phone] Encounter Details Date Type Department Care Team (Late st Contact Info) Description 12/03/2015 Abstract [facility] Nephrology - [address] [address] Junaid Olivarez MD [address] [place] [address], Level [address] [place] [address] Social History Tobacco Use Types [...] Description 10/27/2024 14:15 EST Office Visit [facility] Ophthalmology [facility] [address] [place] [address] Consuelo Nicole MD [address] [place] [phone] documented as of this encounter Procedures Procedure Name Priority Date/Time Associated Diagnosis Comments GLUCOSE, SERUM Routine 10/29/2015 URINE [id number] RATIO (ACR) Routine 10/16/2015 COMPREHENSIVE METABOLIC PANEL (CMP) Routine 02/18/2015 COMPLETE BLOOD COUNT Routine 05/28/2014 HEMOGLOBIN A1C Routine 05/28/2014 COMPREHENSIVE METABOLIC PANEL (CMP) Routine 05/28/2014 documented in this encounter Results * GLUCOSE, SERUM (10/29/2015) Glucose, Serum, External 113 LAB Blood specimen (specimen) 10/29/2015 Sharon Vargas MD CHEMISTRY & BLOOD GAS ORDERABL ES Final Result Performing Organization Address [facility]/ZIP Co de Phone Number LAB * ALBUMIN, URINE (10/16/2015) Microalb ug/mg Crea, External 312.7 LAB Microalb mg/dl, External 84.7 LAB Creatinine, Random U (UCRR), External 27.09 LAB Urine specimen (specimen) 10/16/2015 Sharon Vargas MD CHEMISTRY & BLOOD GAS ORDERABL ES Edited Result - Final Performing Organization Address [facility]/ZIP Co de Phone Number LAB * COMPREHENSIVE METABOLIC PANEL (CMP) (02/18/2015) [...] HEMOGLOBIN A1C (05/28/2014) Hemoglobin A1C, External 8.7 LAB Est Avg Glucose, External LAB Blood specimen (specimen) 05/28/2014 Sharon Vargas MD CHEMISTRY & BLOOD GAS ORDERABL ES Final Result Performing Organization Address [facility]/ZIP Co de Phone Number LAB * COMPREHENSIVE METABOLIC PANEL (CMP) (05/28/2014) GFR, Calculated, External >60 LAB Glucose, Serum, External 151 LAB Albumin, External 2.9 LAB Total Alkaline Phosphatase, External 137 LAB ALT, External 86 [facility] AST, External 81 [facility] BUN, External 9 [facility] Calculated Calcium, External LAB Calcium, External 8.0 LAB Chloride, External 104 LAB CO2, External 28.8 [facility] Creatinine, External 0.5 LAB Fasting?, External LAB Potassium, External 4.2 LAB Sodium, External 140 LAB Total Protein, External 6.4 LAB Bilirubin, Total, External 0.2 LAB Blood specimen (specimen) 05/28/2014 Sharon Vargas MD CHEMISTRY & BLOOD GAS ORDERABL ES Final Result Performing Organization Address City/[facility]/ZIP Co de Phone Number LAB * HEMAGRAM (05/28/2014) HCT, External 35.7 [facility] MCH, External [facility] MCV, External [facility] MCHC, External [facility] Hemoglobin, External 11.4 LAB WBC, External 7.76 [facility] RBC, External 3.83 [facility] PLT, External 461 [facility] RDW-CV, External LAB Blood specimen (specimen) 05/28/2014 us Sharon Vargas MD HEMATOLOGY & PF4 ORDERABLES Fi nal Result LAB documented in this encounter Visit Diagnoses [...] 4 added in this encounter Care Teams Retail Salesperson Relationship Specialty Start Date End Date Sharon Vargas MD [address] [place] [address] PCP - General 09/09/15 documented as of this encounter
--- OUTSIDE RECORDS SUMMARY | 2024-10-19 21:14 | XMS_ITS | Encounter Summary ---
Author Organization [facility] Address [address] [place] [address] Care Team Providers Care Senior Ios Developer Name Role Phone Sharon Vargas MD Primary Care Provider [phone] Reason for Visit * Reason Comments Eye Problem * Prior Authorization (Routine) - Authorized Specialty Diagnoses / Procedures Referred By Johnnie eugene Referred To Contact Diagnoses Diabetic macular edema (HCC-CMS) Procedures MD INTRAVITREAL NJX PHARMACOLOGIC AGT SPX MD AFLIBERCEPT INJECTION MD BEVACIZUMAB INJECTION [address] [address] Phone: tel: fax: [address] [address] Phone: tel: fax: Referral ID Status Reason Start Date Expiration Date V isits Requested Visits Authorized [id number] Authorized 2 2 Encounter Details Date Type Department Care Team (Late st Contact Info) Description 02/11/2024 14:00 EDT Office Visit [address] [id number] Hung Harp MD [address] [place] [address], [facility] [address] [place] [address] Social History Tobacco Use Types [...] edema, with long-term current use of insulin ([facility]) OCT, RETINA - OU - BOTH [...] Description 10/27/2024 14:15 EST Office Visit [facility] [address] [address] Consuelo Nicole MD [address] [place] [address] documented as of this encounter Procedures Procedure Name Priority Date/Time Associated Diagnosis Comments OCT, RETINA - OU - BOTH EYES Routine 02/11/2024 14:36 EDT Type 2 diabetes mellitus with both eyes affected by moderate nonproliferative retinopathy without macular edema, with long-term current use of insulin ([facility]) documented in this encounter Results * OCT, RETINA - OU - BOTH EYES (02/11/2024 14:36 EDT) Narrative [facility] OPHTHALMOLOGY - 02/11/2024 16:43 EDT Right Eye Quality was poor. Scan locations included juxtafoveal. Progression has improved. Findings include intraretinal fluid. Left Eye Quality was borderline. Progression has been stable. Findings include normal foveal contour. Notes Some inner retinal atrophy both eyes OCT-A enlarged CJ left eye (poor signal right eye us Hung Harp MD OPHTH TOMOGRAPHY Final Result [facility] OPHTH[facility] documented in this encounter Visit Diagnoses Diagnosis Type 2 diabetes mellitus with both eyes affected by moderate nonproliferative retinopathy without macular edema, with long-term current use of insulin ([facility])- Primary Combined forms of age-related cataract of [...] all 4 quadrants. No alireza Care Teams Senior Ios Developer Relationship Specialty Start Date End Date Sharon Vargas MD [address] [place] [phone] PCP - General 09/09/15 documented as of this encounter
--- OUTSIDE RECORDS SUMMARY | 2024-10-19 21:14 | XMS_ITS | Encounter Summary ---
Author Organization [facility] Address [address] [place] [address] Care Team Providers Care Parachute Taper Name Role Phone Sharon Vargas MD Primary Care Provider [phone] Reason for Referral * Consult, Test and Treat (Routine) - Receiving Office to Obtain Authorization Specialty Diagnoses / Procedures Referred By Johnnie eugene Referred To Contact Ophthalmology Diagnoses Type 2 diabetes mellitus with both eyes affected by moderate nonproliferative retinopathy without macular edema, with long-term current use of insulin ([facility]) Consuelo Nicole MD Phone: tel: fax: Hung Harp MD Phone: tel: fax: Referral ID Status Reason Start Date Expiration Date Visits Requested Visits Authorized [id number] Receiving Office to Obtain Authorization Specialty Services [...] Info) Description 12/29/2023 10:45 EDT Office Visit [facility] Ophthalmology [facility] [address] [place] [address] Consuelo Nicole MD [address] [place] [phone] Social History Tobacco Use Types Packs/Day Years [...] appointment is: 02/09/2024 at our office [address] [place], [place] Your surgery date for your first eye is: 03/23/[address] [facility] (check in at Patient Registration). The [...] Psychiatric: Depression Endocrine: Diabetes Hematologic: Anemia Immunologic: Chief Librarian Circulation Department: Exposures: None Other: Attestation: Base Eye Exam [...] lens. Refraction Manifest Refraction (Auto) Sphere Cylinder [place] Right -10.50 +2.25 154 Left -5.00 +2.50 035 Manifest Refraction #2 Sphere Cylinder [place] Right -7.25 +2.00 150 20/300 Left -3.75 Sphere 20/60 Cycloplegic Refraction Sphere [place]yl[place] Right -7.25 +2.00 150 Left [...] Info) Description 10/27/2024 14:15 EST Office Visit [facility] Ophthalmology [address] [address] Consuelo Nicole MD [address] [place] [phone] Scheduled Referrals Name Type Priority Associated Diagnoses Orde r Schedule AMB CONS/FOLLOW UP OPHTHALMOLOGY Outpatient Referral Routine/Next Available Type 2 Diabetes Mellitus With Both Eyes Affected By Moderate Nonproliferative Retinopathy Without Macular Edema, With Long-Term Current Use Of Insulin ([facility]) Expected: 01/29/2024 (Approximate) , Expires: 12/28/2024 documented as of this encounter Procedures Procedure Name Priority Date/Time Associated Diagnosis Comments OCT, RETINA - OU - BOTH EYES Routine 12/29/2023 13:57 EDT Type 2 diabetes mellitus with both eyes affected by moderate nonproliferative retinopathy without macular edema, with long-term current use of insulin ([facility]) documented in this encounter Results * OCT, RETINA - OU - BOTH EYES (12/29/2023 13:57 EDT) Narrative [facility] OPHTHALMOLOGY - 12/29/2023 13:57 EDT OCT macula Right: signal strength: 2/10, thickness 268 microns, normal foveal contour, possible intraretinal fluid Left: signal strength: 5/10, thickness 234 microns, normal foveal contour, no intra/subretinal fluid us Consuelo Nicole MD OPHTH TOMOGRAPHY Final Resu lt [facility] OPHTHALMOLOGY documented in this encounter Visit Diagnoses Diagnosis Type 2 diabetes mellitus with both eyes affected by moderate nonproliferative retinopathy without macular edema, with long-term current use of insulin ([facility])- Primary Combined forms of age-related [...] lens. Manifest Refraction #1 (Auto) Sphere [place]yl[place] Right eye -10.50 +2.25 154 Left eye -5.00 +2.50 035 Manifest Refraction #2 Sphere [place]yl[place] Right eye -7.25 +2.00 150 20/300 Left eye -3.75 Sphere 20/60 Cycloplegic Refraction Sphere Cylinder [place] Right eye -7.25 +2.00 150 Left eye -3.75 +0.75 035 20/80+1 Care Teams Parachute Taper Relationship Specialty Start Date End Date Sharon Vargas MD [address] [place] [address] [place] [phone] PCP - General 09/09/15 documented as of this encounter
--- OUTSIDE RECORDS SUMMARY | 2024-10-19 21:14 | XMS_ITS | Clinical Summary ---
Author Organization [facility] Address [address] [place] [address] Care Team Providers Care Freight Adjuster Name Role Phone Sharon Vargas MD Primary Care Provider Allergies Active Allergy Reactions Criticality Noted Date [...] age-related cataract of both e yes 02/11/2024 Encounters Date Type Department Care Team Description 10/07/2024 Lab Requisition [facility] Pathology & Laboratory [address] [address] Outr Resulting Lab, Provider 10/06/2024 Lab Requisition [facility] Pathology & Laboratory [address] [address] Outr Resulting Lab, Provider from Last 3 Months Social History Tobacco [...] Info) Description 10/27/2024 14:15 EST Office Visit [facility] Ophthalmology [facility] [address] [place] [address] Consuelo Nicole MD [address] [place] [phone] Health Maintenance Due Date Last Done Comments Foot Exam 1975 Lipid Profile Screening (Cholesterol) 1978 Pneumococcal Immunization (1 of 2 - PCV) 1981 Hepatitis B Vaccine (1 of 3 - 19+ 3-dose series) 1994 Hemoglobin A1C (Ha1C) 11/28/2014 05/28/2014 Microalbumin/Creatinine Ratio 10/16/2016 10/16/2015 COVID-19 Vaccine ( season) 2024 Eye Exam 03/16/2025 03/16/2024, 0403/2024, 12/29/2023 Hepatitis C Screen Completed 10/06/2024, 0 01/01/2023, 01/01/2023 Procedures Procedure Name Priority Date/Time Associated Diagnosis Comments HCV RNA DETECT QUANT Routine 10/06/2024 14:00 EST URINE [id number] E RATIO (ACR) Routine 10/16/2015 HEMOGLOBIN A1C Routine 05/28/2014 from Last 3 Months or Most Recently Relevant to Health Maintenance Results * (ABNORMAL) HCV RNA DETECT QUANT (10/06/2024 14:00 EST) HCV RNA Qualitative Detected( A) Undetected 10/09/2024 11:37 EST [facility] HCV RNA Quantitative 2,950,000 (H) Undetected IU/mL 10/09/2024 11:37 EST [facility] Blood VENOUS BLOOD / Unknown 10/06/2024 14:00 EST 10/07/2024 22:18 EST Narrative [facility] - 10/09/2024 11:37 EST The quantification range of this assay is 15 IU/mL to 100,000,000 IU/mL. Testing was performed using the Jaron HCV test ([employer] with the jaron 6800 System. us Provider Outr Resulting Lab CHEMISTRY & BLOOD GA S ORDERABLES Final Result [facility] [address] [place] [address] * ALBUMIN, URINE (10/16/2015) Microalb ug/mg Crea, External 312.7 [facility] Microalb mg/dl, External 84.7 [facility] Creatinine, Random U (UCRR), External 27.09 [facility] Urine specimen (specimen) 10/16/2015 us Sharon Vargas MD CHEMISTRY & BLOOD GAS ORDERABL ES Edited Result - Final [facility] * HEMOGLOBIN A1C (05/28/2014) Hemoglobin A1C, External 8.7 [facility] Est Avg Glucose, External [facility] Blood specimen (specimen) 05/28/2014 Sharon Vargas MD CHEMISTRY & BLOOD GAS ORDERABL ES Final Result [facility] from Last 3 Months or Most Recently Relevant to Health Maintenance Insurance [place] Care Teams Freight Adjuster Relationship Specialty Start Date End Date Sharon Vargas MD [address] [place] [place] [address] PCP - General 09/09/15
--- OUTSIDE RECORDS SUMMARY | 2024-10-19 21:14 | XMS_ITS | Encounter Summary ---
Author Organization [facility] Address [address] [place] [address] Care Team Providers Care Change Management Facilitator Name Role Phone Unavailable Primary Care Provider Unavailabl e Encounter Details Date Type Department Care Team (Late st Contact Info) Description 09/11/2002 Results Only [facility] [address] [place] [address] Penny Vaughan, EKATERINA [address] [place] [address] Social History Tobacco Use Types [...] Info) Description 10/27/2024 14:15 EST Office Visit [facility] [address] [place] [address] Consuelo Nicole MD [address] [place] [phone] documented as of this encounter Procedures Procedure [...] ? LEA MCGOWAN ? Accession #: ? [id number] : ? 1975 (Age: 27) ??F ?Collect [...] ORDERABLES Final R esult NATHAN SETHI [address] [place] [address] documented in this encounter Visit Diagnoses Not on filedocumented in this encounter
--- OUTSIDE RECORDS SUMMARY | 2024-10-19 21:14 | XMS_ITS | Encounter Summary ---
Author Organization [facility] Address [address] [place] [address] Care Team Providers Care Photo Finish Photographer Name Role Phone Sharon Henderson MD Primary Care Provider [phone] Encounter Details Date Type Department Care Team (Late st Contact Info) Description 12/09/2016 Results Only [facility] [phone] Sharon Henderson MD [address] [place] [address] Social History Tobacco Use Types [...] Info) Description 10/27/2024 14:15 EST Office Visit [facility] [address] [place] [address] Consuelo Nicole MD [address] [place] [address] documented as of this encounter Procedures Procedure [...] ? FE LEA ? Accession #: ? [id number] ? : ? 1975 (Age: 41) ??F [...] 33,35,39,45,51,52, 56,58,59,66, and 68 is detected by underwriting intern mediated amplification. High and intermediate risk HPV [...] confirmed the above diagnosis. End of Report [facility] 12/09/2016 12/14/2016 us Sharon Henderson MD PATHOLOGY ORDERABLES Final Res ult [facility] [address] [place] [address] documented in this encounter Visit Diagnoses Not on filedocumented in this encounter Care Teams Photo Finish Photographer Relationship Specialty Start Date End Date Sharon Henderson MD [address] [place] [phone] PCP - General 09/09/15 documented as of this encounter
--- OUTSIDE RECORDS SUMMARY | 2024-10-19 21:14 | XMS_ITS | Encounter Summary ---
Author Organization [facility] Address [address] [place] [address] Care Team Providers Care Senior Pl Sql Developer Name Role Phone Unavailable Primary Care Provider Unavailabl e Encounter Details Date Type Department Care Team (Latest Contact Info) Description 04/03/2003 19:00 EDT Hospital Encounter [facility] Emergency Department - [place] [address] [place], [place] [address] Emergency, Default, MD Discharge Disposition: Home or [...] Info) Description 10/27/2024 14:15 EST Office Visit [facility] Ophthalmology [facility] [address] [place] [address] Consuelo Nicole MD [address] [place] [address] documented as of this encounter Procedures Procedure [...] ? LEA MCGOWAN ? Accession #: ? [id number] ? : ? 1975 (Age: 34) ??F [...] reviewed and electronically signed by: ? Marie [place], [place](ASCP) ? Report Date: ??07/03/2009 14:12 ? End of Report ? NATHAN SETHI 06/26/2009 06/28/2009 us Sharon Vargas MD PATHOLOGY ORDERABLES Final Res ult NATHAN SETHI [address] [place] [address] documented in this encounter Visit Diagnoses Not on filedocumented in this encounter
--- OUTSIDE RECORDS SUMMARY | 2024-10-19 21:14 | XMS_ITS | Encounter Summary ---
Author Organization [facility] Address [address] [place] [address] Care Team Providers Care Launchman Name Role Phone Sharon Vargas MD Primary Care Provider [phone] Encounter Details Date Type Department Care Team (Latest Contact Info) Description 03/27/2016 8:14 EDT - 03/27/2016 23:59 EDT Hospital Encounter [facility] [address] [place] [address] Unknown, Provider, MD Discharge Disposition: Home or [...] Code Departure Means Destination Home or Self [facility] documented in this encounter Plan of Treatment Upcoming Encounters Date Type Department Care Team (Late st Contact Info) Description 10/27/2024 14:15 EST Office Visit [facility] Ophthalmology [facility] [address] [place] [address] Consuelo Nicole MD [address] [place] [address] documented as of this encounter Visit Diagnoses Not on filedocumented in this encounter Care Teams Launchman Relationship Specialty Start Date End Date Sharon Vargas MD [address] [place] [address] PCP - General 09/09/15 documented as of this encounter
--- OUTSIDE RECORDS SUMMARY | 2024-10-19 21:14 | XMS_ITS | Encounter Summary ---
Author Organization [facility] Address [address] [place] [address] Care Team Providers Care Windscreen Fitter Name Role Phone Sharon Vargas MD Primary Care Provider [phone] Reason for Visit * Reason Onset Date Comments Follow-up 12/29/2023 Encounter Details Date Type Department Care Team (Late st Contact Info) Description 12/29/2023 Telephone [facility] [address] [place], [place] [phone] Verna Cerna COA Follow-up Social History Tobacco [...] Info) Description 10/27/2024 14:15 EST Office Visit [facility] [address] [place] [address] Consuelo Nicole MD [address] [place] [phone] documented as of this encounter Visit Diagnoses Not on filedocumented in this encounter Care Teams Windscreen Fitter Relationship Specialty Start Date End Date Sharon Vargas MD [address] [place] [address] PCP - General 09/09/15 documented as of this encounter
--- OUTSIDE RECORDS SUMMARY | 2024-10-19 21:14 | XMS_ITS | Encounter Summary ---
Author Organization [facility] Address [address] [place] [address] Care Team Providers Care Dyno Technician Name Role Phone Sharon Vargas MD Primary Care Provider [phone] Encounter Details Date Type Department Care Team (Late Contact Info) Description 02/24/2024 Orders Only [facility] [address] [place], [place] [address] Consuelo Nicole MD [address] [place] [phone] Combined forms of age-related cataract of right [...] Info) Description 10/27/2024 14:15 EST Office Visit [facility] Ophthalmology [facility] [address] [place], [place] [address] Consuelo Nicole MD [address] [place] [phone] documented as of this encounter Visit Diagnoses Diagnosis Combined forms of age-related cataract of right eye- Primary Other and combined forms of senile cataract documented in this encounter Care Teams Dyno Technician Relationship Specialty Start Date End Date Sharon Vargas MD [address] [place] [place] [address] PCP - General 09/09/15 documented as of this encounter
--- OUTSIDE RECORDS SUMMARY | 2024-10-19 21:14 | XMS_ITS | Encounter Summary ---
Author Organization [facility] Address [address] [place] [address] Care Team Providers Care Check Cashier Name Role Phone Sharon Vargas MD Primary Care Provider [phone] Encounter Details Date Type Department Care Team (Late st Contact Info) Description 10/07/2024 Lab Requisition [facility] Pathology & Laboratory Medicine - [facility] [place] [address] [place] [address] Outr Resulting Lab, Provider Social History Tobacco [...] Office Visit [facility] [address] [place] [address] Consuelo Nicole MD [address] [place] [phone] documented as of this encounter Procedures Procedure Name Priority Date/Time Associated Diagnosis Comments HCV RNA DETECT QUANT Routine 10/06/2024 14:00 EST documented in this encounter Results * (ABNORMAL) HCV RNA DETECT QUANT (10/06/2024 14:00 EST) HCV RNA Qualitative Detected( A) Undetected 10/09/2024 11:37 EST [facility] HCV RNA Quantitative 2,950,000 (H) Undetected IU/mL 10/09/2024 11:37 EST [facility] Blood VENOUS BLOOD / Unknown 10/06/2024 14:00 EST 10/07/2024 22:18 EST Narrative [facility] - 10/09/2024 11:37 EST The quantification range of this assay is 15 IU/mL to 100,000,000 IU/mL. Testing was performed using the Jaron HCV test ([employer] with the jaron [employer] System. us Provider Outr Resulting Lab CHEMISTRY & BLOOD GA S ORDERABLES Final Result Performing Organization Address City/State/[facility] Co de Phone Number [facility] [address] [place] [address] documented in this encounter Visit Diagnoses Not on filedocumented in this encounter Care Teams Check Cashier Relationship Specialty Start Date End Date Sharon Vargas MD [address] [place] [phone] PCP - General 09/09/15 documented as of this encounter
--- OUTSIDE RECORDS SUMMARY | 2024-10-19 21:14 | XMS_ITS | Encounter Summary ---
Author Organization [facility] Address [address] [place] [id number] Care Team Providers Care Flame Burner Name Role Phone Sharon Henderson MD Primary Care Provider [phone] Encounter Details Date Type Department Care Team (Late st Contact Info) Description 10/19/2018 Results Only [facility] [phone] Sharon Henderson MD [address] [place] [phone] Social History Tobacco Use Types [...] Description 10/27/2024 14:[address] [facility] [address] [place] [address] Consuelo Nicole MD [address] [place] [phone] documented as of this encounter Procedures Procedure [...] types 16,18,31,33,35, 39,45,51,52,56,58, 59,66, and 68 by physical therapy resident mediated amplification. Comments Document reviewed and electronically signed by: ? System Interface ? Report date: 10/28/2018 By the signature above, the attending physician certifies that he/she has personally conducted a gross and/or microscopic examination of the described specimens and rendered or confirmed the above diagnosis. End of Report [facility] 10/19/2018 10/21/2018 us Sharon Henderson MD PATHOLOGY ORDERABLES Final Res ult [facility] [address] [place] [address] documented in this encounter Visit Diagnoses Not on filedocumented in this encounter Care Teams Flame Burner Relationship Specialty Start Date End Date Sharon Henderson MD [address] [place] [phone] PCP - General 09/09/15 documented as of this encounter
--- OUTSIDE RECORDS SUMMARY | 2024-10-19 21:14 | XMS_ITS | Encounter Summary ---
Author Organization [facility] Address [address] [place] [address] Care Team Providers Care Elder Counselor Name Role Phone Sharon Vargas MD Primary Care Provider Encounter Details Date Type Department Care Team (Late st Contact Info) Description 03/27/2016 Historical Results Only [facility] Radiology Results [address] [place] [address] Roberth Osborne MD Social History Tobacco Use [...] Info) Description 10/27/2024 14:15 EST Office Visit [facility] [address] [place] [address] Consuelo Nicole MD [address] [place] [phone] documented as of this encounter Procedures Procedure [...] CC: ? Transcribed Date/Time: 03/27/2016 (2008) ? Lumber Mover: ? Printed Date/Time: 03/31/2019 (31) ? PAGE [...] Gan MD CC: Transcribed Date/Time: 03/27/2016 (2008) Lumber Mover: Printed Date/Time: 03/31/2019 (0032) PAGE 1 Signed Report us Roberth Osborne MD IMG DIAGNOSTIC IMAGING ORDERABL ES Final Result documented in this encounter Visit Diagnoses Not on filedocumented in this encounter Care Teams Elder Counselor Relationship Specialty Start Date End Date Sharon Vargas MD [address] [place] [phone] PCP - General 09/09/15 documented as of this encounter
--- OUTSIDE RECORDS SUMMARY | 2024-10-19 21:14 | XMS_ITS | Continuity of Care Document ---
Author Organization [place] - [facility], [facility] Address [address] [place] [address] Care Team Providers [facility] Worker Name Role Phone [facility] OPHTHALMOLOGY [facility] Ophtha lmologist Assessment Encounter Date Assessment Date [...] She is under the care of a motor checker at [facility], Elbert Oliver. - Plan: a. Encourage patient to schedule an appointment for toenail trimming and routine foot care with her motor checker. COPD and Shortness of Breath - Assessment: Patient experiences increased shortness of breath and currently uses albuterol. She has a refill for Breo and expresses interest in trying Trelegy. - Plan: a. Prescribe Trelegy and send the prescription to [facility]. b. Advise patient to continue using Breo as prescribed. c. Schedule a follow-up in one month to monitor breathing and lung function. Sleep Apnea - Assessment: Patient reports symptoms indicative of sleep apnea, including mouth breathing, gasping for air, and waking abruptly due to breathing difficulties. - Plan: a. Refer patient for a sleep study at [facility] to assess for sleep apnea and evaluate [...] Assessment: Patient is considering enrolling in the MedWaiver program and Meals on Wheels due to difficulties with daily activities and cooking, exacerbated by her visual impairment. - Plan: a. Provide information on the [facility] and [...] devoted to today's encounter, including both the tssh-qe-jdzk time with the patient and/or family/caregiver and ywl-iuqq-gh-face time I personally spent is 40 minutes. [email or web address] Not available 09/01/2024 16:11:48 Plan of Treatment Reminders Order Date Submit Date Provider Last Modified By Organization Details Last Modified Time Details Appointments hospital follow up 2024 03:00P Roly HENDERSON Not available Not available Not available Nurse Visit 2024 01:00P M [facility] Not available Not available Not available Follow Up 2024 01:50P Roly HENDERSON Not available Not available Not available Follow Up 2024 02:30P M BARNEY HENDERSON Not available Not available Not available Lab hemoglobi n A1C, fingersti ck 2023 024 [email or web address] [facility], [address] [place] [address], [address], 09/02/2024 08:08:00 Referral podiatris t referral - well known to Dr. Valentino , (over)due for nail/foot care adn general f/u. 2023 024 [email or web address] [facility], [address] [facility], [place], [address], 10/16/2024 04:49:35 sleep medicine referral - witnessed nocturnal apnea, pt with obesity, COPD, chronic opioid dependenc e; eval for central vs obstructi ve sleep apnea 2023 024 [email or web address] [facility], [address] [place] [address] [place], [address], 10/05/2024 06:58:37 Procedures None recorded. Surgeries None recorded. Imaging None recorded. Medication Orders Trelegy Ellipta 200 mcg-62.5 mcg-25 mcg powder for inhalatio n 2023 024 [email or web address] [facility] [employer] [address], [place], [address], 10/06/2024 14:45:17 atorvasta tin 40 mg tablet 2023 024 [facility] [employer] [address], [address], [place], [address], 09/02/2024 08:08:00 escitalop karlo 10 mg tablet 2023 024 [email or web address] [address] [employer] [address], [address], [place], [address], 10/19/2024 11:43:11 omeprazol e 40 mg capsule,d elayed release 2023 024 [email or web address] [facility] [employer] [address], [address], [place], [address], 09/02/2024 08:08:00 amlodipin e 5 mg tablet 2023 [email or web address] [facility] [employer] [address], [address], [place], [address], 09/02/2024 08:08:00 Diovan HCT 320 mg-25 mg tablet 2023 [employer] [address], [place], [address], 10/19/2024 11:44:52 amitripty line 25 mg tablet 2023 [email or web address] [facility] [employer] [address], [address], [place], [address], 09/02/2024 08:08:00 Tresiba FlexTouch U-200 insulin 200 unit/mL (3 mL) subcutane ous pen 2023 [employer] [address], [place], [address], 10/19/2024 11:50:52 metformin ER 500 mg tablet,ex tended release 24 hr 2023 [employer] [address], [place], [address], 10/19/2024 11:51:21 Accu-Chek Guide test strips 2023 [facility] [employer] [address], [place], [address], 09/02/2024 08:08:00 Patient TargetsNo targets recorded. Patient Instructions Encounter Date Encounter Id Patient Instructions Last Modified By Organization Details Last Modified Time 09/01/2024 [id number] advised to quit smoking Not available 09/01/2024 16:09:15 Dear Lea, Thank [...] on medications. - Sleep study referral to [facility] for sleep apnea evaluation. - Contact [facility] for toenail trimming appointment. - Stool sample test and mammogram to be scheduled after Wednesday. - Lifestyle Adjustments: - Continue efforts to reduce smoking. - Ensure proper diet and manage meal preparations, possibly with assistance from Meals on Wheels. - Support Services: - Contact [facility] [...] Warm regards, Barney Henderson MD Family Medicine Not available 09/01/2024 16:11:10 Reason for Referral Sleep Medicine Referral for Sleep apnea witnessed nocturnal apnea, pt with obesity, COPD, chronic opioid dependence; eval for central vs obstructive sleep apnea Referring Physician: Barney Henderson [facility], Encounter Date: 09/01/2024 Shoe Cobbler Referral for Toen ail thickened well known to Dr. Valentino, (over)due for nail/foot care adn general f/u. Referring Physician: Family Darcy Bolivar, Encounter Date: 09/01/2024 Results Created Date Observation Date Name Description Value Unit Range Abnormal Flag Note LastModifiedBy Organization Detail LastModifiedTime 09/01/2009/01/2024 hemog lobin A1C, marisole rsnik k hemoglobin A1C 6.6 % <5.7 Not Available [address], [place], [address], 09/01/2024 15:49:53 10/07/2010/07/2024 CT ABD pelvi s wo IV or oral contr ast [facility] RADIOL OGY Mark Jeff santamaria [id number] RADIOL OGY TRANSC RIPTIO N REPORT _ Patien t Name: FARAZ BUCKLEY,ERROL BYERS B MRN: Sex: : Age: [id number] F [id number] Accoun t: Access ion: Admit: StayTy pe: [id number] 2023 E Ordere d: Order ID: Submit curtis: Rosetta urena Provid er: 2023 14:14 [id number] CAROLINA MCINTOSH curtis: Techno logist : Result [...] t. If you are a health care formerly [facility] er and have any questi ons regard ing this report , please contac t the number below. For patien ts who have questi ons please contac t the [facility] sional that reques curtis your imagin g first. Electr onical ly signed by: Júnior Vick MD Radiol jimmy Krystaljaya schaefer ([phone]), at 2023 3:51 PM INTERFACE [facility] (Lab) [address] [place] [address], [address], 10/07/2024 15:57:10 Result Notes None recorded. Problems Name Problem SNOMED Code Status Onset Date Resolution Date Notes Provider Name and Address Organization Details Recorded Time Complica tion due to diabetes mellitus 16251043 Active [address], [place], [address] , [facility] 14:41:01 Gastroes ophageal reflux disease without esophagi tis 130882230 Active [address], [place], [address] , [facility] 4 15:41:02 Sleep apnea 50989618 Active [address], [place], [address] , [facility] 4 15:41:33 Dyspnea on exertion 43530475 Active [address], [place], [address] , [facility] 16:02:44 Smoker 32232973 Active [address], [place], [address] , [facility] 4 16:03:44 Legal blindnes s 47745704 Active [address], [facility] [address] , [facility] 4 16:04:00 Toenail thickene d 201467193 Active [address], [facility] [address] , [facility] 4 16:07:44 Pruritic rash 10052649 Active [address], [facility] [address] , [facility] 4 16:09:31 Retroper itoneal lymphade nopathy 827658159 Active 2023 jelena rivera, [facility] 5 12:10:08 Renal failure syndrome 96071687 Active 2023 jelena rivera, [facility] 5 12:10:41 Acute exacerba tion of chronic obstruct vishnu pulmonar y disease 281890694 Active [address], [facility] [address] , [facility] 5 15:11:03 Acute renal insuffic iency 947753269 Active [address], [facility] [address] , [facility] 5 16:57:59 Essentia l hyperten kevon 89982391 Active 2005 Kristie rivera, [facility] 4 09:53:15 Hyperlip idemia 87323205 Active 2005 [facility] 4 10:08:20 Uncompli cated moderate persiste nt asthma 346830462 Active 2005 [facility] 4 10:24:46 Severe obesity 50925324903 104 Active 2005 [facility] 4 10:22:09 Chronic hepatiti s C 723980118 Active 2003 pos viral load not treated [facility] 4 09:47:44 Pain of right shoulder joint 21006096583 876856 Active 2014 [facility] 4 10:17:43 Neuropat hy due to type 2 diabetes mellitus 87482006791 9106 Active 2014 uncontro lled, w/neurol o comps [facility] 4 10:17:28 Idiopath ic osteoart hritis 903657737 Active 2014 DJD, knees, bilatera l [facility] 4 10:08:49 Renal disorder due to type 2 diabetes mellitus 425597695 Active 2015 Diabetic nephropa thy [facility] 4 10:21:57 Derangem ent of right knee 54368670981 176519 Completed 201505/05/2016 Problem Code: M23.91; Problem Code Type: ICD-10; Not Available [facility] 3 04:12:16 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 4 09:50:22 Tobacco use cessatio n educatio n Active 2016 [facility] 10:22:41 Gallblad mark calculus with acute cholecys titis and no obstruct ion 911130588 Completed 201612/29/2016 Problem Code: K80.00; Problem Code Type: ICD-10; Not Available Replaced by [facility] 3 04:12:17 Acute asthma 536415113 Completed 201604/13/2017 Problem Code: J45.901; Problem Code Type: ICD-10; Not Available Replaced by [facility] 3 04:12:17 Cellulit is 906469250 Completed 201607/16/2017 Problem Code: L03.90; Problem Code Type: ICD-10; Not Available Replaced by [facility] 3 04:12:17 Atopic dermatit is 24244849 [facility] 09:45:01 Impetigo 49193991 Completed 201705/03/2018 Problem Code: L01.00; Problem Code Type: ICD-10; Not Available Replaced by [facility] 3 04:12:17 Screenin g mammogra phy Completed 201804/20/2019 Problem Code: Z12.31; Problem Code Type: ICD-10; Not Available Replaced by [facility] 3 04:12:18 History of diabetic foot ulcer 63308813038 693968 Active 2018 Kristie Fran [facility]. 4 10:01:51 Chronic obstruct vishnu pulmonar y disease 10062582 Active 2018 Asthma with COPD [facility]. 4 09:48:31 Anemia 395284504 Active 2018 [facility]. 4 09:39:01 Albumin level - finding 953097045 Active 2018 decrease d [facility] 4 09:37:16 Peripher al venous insuffic iency 78503528 Active 2018 Stasis ulcer [facility] 4 10:18:18 Cough 97768840 Completed 201908/22/2020 Problem Code: R05; Problem Code Type: ICD-10; Not Available Replaced by [facility] 3 04:12:19 Endocrin e/metabo lic screenin g Completed 202012/28/2020 Problem Code: Z13.29; Problem Code Type: ICD-10; Not Available Replaced by [facility] 3 04:12:19 Counseli ng Active 2020 Immuniza tion counseli ng [facility] 4 09:51:24 Generali zed anxiety disorder 47230347 Active 2020 [facility] 4 10:01:19 Vomiting 445883126 Completed 202006/26/2021 Problem Code: R11.10; Problem Code Type: ICD-10; Not Available [facility] 3 04:12:19 Insect bite Completed 202007/09/2021 Not Available [facility] 3 04:12:20 Cirrhosi s of liver 22590569 Active 2022 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 with possible contribu tion of [place], decompen sated [facility] 4 09:49:47 Jaundice 58132944 Active 2022 [facility] 4 10:09:01 Muscle weakness 82927845 Active 2022 (general ized) [facility] 4 10:16:46 Opioid abuse 9885594 Completed 202209/28/2023 Problem Code: F11.10; Problem Code Type: ICD-10; Not Available Replaced by [facility] 4 05:34:22 Lichen simplex chronicu s 07070094 Active 2022 Neuroder matitis [facility] 4 10:10:12 History of osteomye litis 425935690 Active 2022 [facility] 4 10:05:22 Opioid abuse 6391813 Completed 201807/14/2023 03/04/20 21 - Comments only - Barney Henderson MD - offered scg for OBT but she states she plans to try to establis h tx thru [facility]. Not interest ed in Suboxone or Vivitrol ; might be interest ed in Sublocad e. Problem Code: F11.10; Problem Code Type: ICD-10; Not Available Replaced by [facility] 3 04:12:22 Cholelit hiasis without obstruct ion 57154317 Completed 201512/22/2016 Problem Code: K80.20; Problem Code Type: ICD-10; Not Available [facility] 3 04:12:22 Candidia sis of vagina 66136282 Completed 201503/27/2016 Problem Code: B37.3; Problem Code Type: ICD-10; Not Available [facility] 3 04:12:23 Traumati c or non-trau matic injury 934091327 Completed 201607/14/2023 Problem Code: T14.8; Problem Code Type: ICD-10; Not Available [facility] 3 04:12:23 Disorder of teeth AND/OR supporti ng structur es 048441862 Completed 201503/17/2016 Problem Code: K08.8; Problem Code Type: ICD-10; Not Available Replaced by [facility] 3 04:12:23 Uncompli cated asthma 816460083 Completed 200507/14/2023 Problem Code: J45.909; Problem Code Type: ICD-10; Not Available [facility] 3 04:12:23 Hyperten sive disorder 11325063 Completed 200507/14/2023 Not Available [facility] 3 04:12:24 Scar conditio ns and fibrosis of skin 200464355 Completed 201604/23/2017 Problem Code: L90.5; Problem Code Type: ICD-10; Not Available Replaced by [facility] 3 04:12:24 Human papillom a virus infectio n 634901762 Completed 201607/14/2023 Problem Code: B97.7; Problem Code Type: ICD-10; Not Available Replaced by [facility] 3 04:12:24 Morbid obesity 341055836 Completed 200507/14/2023 Not Available [facility] 3 04:12:24 Foot ulcer due to type 2 diabetes mellitus 89052294448 00 Completed 201512/22/2016 01/20/20 19 - Comments [...] E11.621; Problem Code Type: ICD-10; Kristie rivera [facility] 4 09:59:50 Periapic al abscess 054566299 Completed 201403/17/2016 Problem Code: K04.7; Problem Code Type: ICD-10; Not Available Replaced by [facility] 3 04:12:25 Drug abuse 25816445 Completed 200707/14/2023 Problem Code: 305.90; Problem Code Type: ICD-9; Not Available Replaced by [facility] 3 04:12:25 Opioid dependen ce in remissio n 742088564 Completed 201807/14/2023 09/26/20 19 - Comments only [...] F11.21; Problem Code Type: ICD-10; Not Available [facility] 3 04:12:25 Gynecolo gic examinat ion Completed 201602/02/2017 Problem Code: Z01.419; Problem Code Type: ICD-10; Not Available Replaced by [facility] 3 04:12:26 Nodule on toe 540255944 Completed 201605/25/2019 Not Available Replaced by [facility] 3 04:12:26 Pain of right knee joint 68944734727 4100 Completed 201502/02/2017 Problem Code: M25.561; Problem Code Type: ICD-10; Not Available [facility] 3 04:12:26 Candidia sis of skin 63393111 Completed 201503/27/2016 Problem Code: B37.2; Problem Code Type: ICD-10; Not Available [facility] 3 04:12:26 Dysuria 94236669 Completed 201505/07/2016 Problem Code: R30.0; Problem Code Type: ICD-10; Not Available [facility] 3 04:12:27 Retinopa thy due to type 2 diabetes mellitus 377983401 Completed 201507/14/2023 Problem Code: E11.319; Problem Code Type: ICD-10; Not Available [facility] 3 04:12:27 Infectio n of skin and/or subcutan eous tissue 44200860 Completed 202204/30/2023 Problem Code: L08.89; Problem Code Type: ICD-10; Not Available Replaced by [facility] 3 04:12:27 Tobacco dependen ce caused by cigarett es 17308944676 958899 Completed 200305/25/2019 Problem Code: F17.210; Problem Code Type: ICD-10; Not Available Replaced by [facility] 3 04:12:27 Opioid dependen ce 98780853 Completed 200309/04/2015 05/25/20 19 - Comments only - Alexandro Grewal - Doing well in treatmen t at [facility]. Problem Code: F11.20; Problem Code Type: ICD-10; Not Available Replaced by [facility] 3 04:12:28 Asthma 747819780 Completed 200507/14/2023 Not Available Replaced by [facility] 3 04:12:28 Pain of joint of knee 8625733082 Completed 201407/14/2023 Problem Code: M25.569; Problem Code Type: ICD-10; Not Available Replaced by [facility] 3 04:12:28 Cellulit is of right lower limb 26821398218 342025 Completed 201805/25/2019 Problem Code: L03.115; Problem Code Type: ICD-10; Not Available Replaced by [facility] 3 04:12:28 Shoulder joint pain 200677896 Completed 201407/14/2023 Problem Code: 719.41; Problem Code Type: ICD-9; Not Available Replaced by [facility] 3 04:12:29 Smoker 07792253 Completed 200307/14/2023 BARNEY HENDERSON MD [address], [place], [address] , [facility]. 4 16:03:44 Chronic ulcer of foot 503947668 Completed 201601/05/2017 Problem Code: L97.529; Problem Code Type: ICD-10; Not Available Replaced by [facility] 3 04:12:29 Type 2 diabetes mellitus without complica tion 398466213 Completed 200307/14/2023 Problem Code: 250.00; Problem Code Type: ICD-9; BARNEY HENDERSON MD [address], [place], [address] , [facility]. 4 14:43:16 Pain of left knee joint 34935546723 4107 Completed 201407/14/2023 Problem Code: M25.562; Problem Code Type: ICD-10; Not Available Replaced by [facility] 3 04:12:30 Depressi ve disorder 02307627 Completed 200307/14/2023 BARNEY HENDERSON MD [address], [facility] [address] [facility] 4 14:41:17 Hypergly cemia due to type 2 diabetes mellitus 05442404174 9109 Completed 200309/04/2015 Problem Code: E11.65; Problem Code Type: ICD-10; Not Available Replaced by [facility] 3 04:12:30 Chest pain 62070786 Completed 201605/25/2019 Problem Code: R07.89; Problem Code Type: ICD-10; Not Available Replaced by [facility] 3 04:12:31 Drug dependen ce 733190609 Completed 200307/14/2023 Problem Code: 304; Problem Code Type: ICD-9; Not Available Replaced by [facility] 3 04:12:31 Cellulit is of toe of right foot 20029171191 945188 Completed 201505/11/2016 Problem Code: L03.031; Problem Code Type: ICD-10; Not Available Replaced by [facility] 3 04:12:31 Osteoart hritis of knee 886850589 Completed 201402/02/2017 Problem Code: M17.9; Problem Code Type: ICD-10; Not Available Replaced by [facility] 3 04:12:32 History of infectio us disease 764940741 Completed 201409/04/2015 Problem Code: Z86.19; Problem Code Type: ICD-10; Kritsie rivera, [facility] 4 10:05:01 Tobacco user 969813635 Completed 200508/06/2015 Not Available Replaced by [facility] 3 04:12:32 Viral screenin g Completed 202209/10/2023 Problem Code: Z11.52; Problem Code Type: ICD-10; Not Available Replaced by [facility] 4 05:34:15 Acute upper respirat ory infectio n 96150559 Completed 202208/18/2023 Problem Code: J06.9; Problem Code Type: ICD-10; Not Available [facility] 4 05:34:15 Type 2 diabetes mellitus without complica tion 114887265 Completed 202309/01/2024 Problem Code: 250.00; Problem Code Type: ICD-9; MD [address], [place], [address] , [facility] 4 14:43:16 Asthma-c hronic obstruct vishnu pulmonar y disease overlap syndrome 59831494791 067900 [facility] 4 09:39:21 Decompen sated cirrhosi s of liver 865673327 Active 2023 Child Bourgeois score 8/Class B as of 12/2022 [facility], [facility]. 4 09:51:34 Visual impairme nt 469835432 Active 2023 [facility], [facility]. 4 10:29:20 Thickene d nails 828757356 Active 2023 [facility], [facility]. 4 10:22:14 Thickeni ng of skin 00572259 Completed 202309/01/[address], [place], [address] , [facility] 4 14:43:15 Acquired hammer toes of bilatera l feet 03795962578 711046 Active 2023 Kristie Fran null, [facility]. 4 09:37:02 History of amputati on of right foot 63647031087 878256 Active 2023 [facility] 4 10:01:25 Combined form of senile cataract 02644116 Active 2023 [facility] 4 09:50:32 Unintent ional weight loss 844259880 Active 2022 [facility] 4 10:24:46 History of amputati on of lesser toe 127480970 Active 2022 [facility] 4 09:38:36 History of intraven ous drug abuse 68294281856 032050 Active 2007 heroin [facility] 4 09:40:14 Left ventricu lar hypertro phy 96095406 Active 2015 mild concentr ic 12/31 echo (nl EF) [facility] 4 09:47:08 Follicul itis 98502950 Active 2022 [facility] 4 09:52:22 Peripher al edema 419344071 Active 2014 [facility] 4 09:52:55 Mild persiste nt asthma 969088114 Active 2022 with acute exacerba tion [facility] 4 09:54:28 Family history of Alzheime r's disease 429603082 Active 2018 mother age 50, maternal grandmot her, maternal aunts and uncles; no genetic testing done [facility] 4 09:56:26 Diabetic foot ulcer 577517575 Active 2022 [facility] 4 09:59:46 History of cholecys tectomy 195659479 Active 2016 laparosc opic, 01/01 [facility] 4 10:00:55 History of human papillom a virus infectio n 07492802595 9102 Active 01/01; nl pap; neg colpo 04/03 incl ECC; neg pap 11/05; 5 yr f/u [facility] 4 10:04:56 History of opioid abuse 09632930129 9100 Active 2018 Hx of opioid abuse -- [facility] resumed suboxone 09/07 [facility] 4 10:08:01 Edentulo 199859669 Active 2015 s/p complete extr due to advanced caries 03/02 [facility] 4 10:13:37 Major depressi ve disorder 740344813 Active 2022 Major depressi on [facility] 4 10:15:28 Traumati c partial amputati on of right great toe Active 2018 initial encounte r [facility] 4 10:23:54 Stasis dermatit is 72395806 Active 2021 Venous stasis dermatit is [facility] 4 10:30:44 Diabetes mellitus 18997463 Completed 202309/01/[address], [place], [address] , [facility] 4 14:43:16 Type 2 diabetes mellitus 23529997 Completed 202309/01/[address], [place], [address] , [facility] 4 14:43:16 Obesity 669522873 Active [address], [place], [address] , [facility] 4 20:58:25 Hemoglob in A1c greater than 9% indicati ng poor diabetic control [id number] 4104 Completed 202309/01/[address], [place], [address] , [facility] 4 14:43:16 Problem Notes None recorded. Medical Equipment None Reported. Allergies Allergen ID Allergen Name Allergen Category Reaction Reaction Severity Criticality Documentation Date Start Date Code Code System Note Provider Name and Address Organization Details Recorded Time 98114 lisinopri l medicatio n cough moderate Not available 08/27/20232009 79099 RxNorm [facility] 4 10:31:16 73934 metoprolo l succinate medicatio n other moderate Not available 08/27/20232018 35166 4 RxNorm No react ion enter ed [facility] 4 10:31:36 63124 codeine medicatio n hives moderate Not available 08/27/20232002 2670 RxNorm [facility] 4 10:31:10 Medications Name Sig Start [...] Stockings Dx: peripher al edema 11/04 completed [place] Not Available Not Available Not Available gabapenti n 300 mg tablet 3 cap three times daily 06/16 completed Not Available Not Available Not Available albuterol 2INH four times daily 07/31 completed Not Available Not Available Not Available Nystatin (Topical) cream apply BID 05/28 completed Not Available Not Available Not Available Nebulizer Dx: Asthma J45.40 Smoking Z71.6 2018 active [place] in [place] Not Available Not Available Not Available Humalog [...] change to 18mg q day per [facility] 6/26/19; 20mg as of 03/2020 Not Available Not Available Not Available Suboxone 2 mg-0.5 mg sublingua l film Take 2 film sublingu ally once daily 05/08 completed Per [facility] 04/12/19, total daily dose increase d to [...] Ultra-Fin e 0.5 mL 31 gauge x 03/02 active Not Available Not Available Not Available pen needle, diabetic 33 gauge x / 1 needle subcutan eously three times a [...] completed Not Available Not Available Not Available [employer] SoloStar U-300 Insulin 300 unit/mL (1.5 mL) [...] Updated DateTime 4 160.02 cm 35.5 kg/m2 22672.9 1 g 97.5 [degF] 94 % 94 % 88 /min 168 mm[Hg] 98 mm[Hg] ARMIDA HIRSCH MA [facility], [facility] 4 15:02:01 Social History Question Answer Notes LastModified by Organizat ion Details LastModified Time Tobacco Smoking Status Current Every Day Smoker SURJIT KITCHEN LPN null, [facility] 11/03/2023 13:42:55 Date Of Most Recent HSA 10/06/2024 [email or web address] Information not available 10/06/2024 Would You Say That, In General, Your Health Is Poor [email or web address] Information not available 10/06/2024 Women Aged 18-50 - Would You Like To Become In The Next Year? (Female Patients Only) No [email or web address] Information not available 10/06/2024 How Often Does Anyone, Including Family, Physically Hurt You? Never [email or web address] Information not available 10/06/2024 How Often Does Anyone, Including Family, Insult Or Talk Down To You? Never [email or web address] Information no t available 10/06/2024 How Often Does Anyone, Including Family, Threaten You With Harm? Never [email or web address] Information not available 10/06/2024 How Often Does Anyone, Including Family, Scream Or Curse At You? Never [email or web address] Information not available 10/06/2024 Within The Past 12 Months, You Worried That Your Food Would Run Out Before You Got Money To Buy More. Sometimes True [email or web address] Information not available 10/06/2024 Within The Past 12 Months, The Food You Bought Just Didn't Last And You Didn't Have Money To Get More. Sometimes True [email or web address] Information not available 10/06/2024 How Hard Is It For You To Pay For The Very Basics Like Food, Housing, Medical Care, And Heating? Would You Say It Is: Very Hard [email or web address] Information not available 10/06/2024 In The Past 12 Months, Has Lack Of Reliable Transportation Kept You From Medical Appointments, Meetings, Work Or From Getting Things Needed For Daily Living? Yes [email or web address] Information not available 10/06/2024 What Is Your Housing Situation Today? I Have Housing. Information not available 10/06/2024 How Often In The Past Year Have You Used Marijuana (including Smoking, Vaping, Dabbing, Or Edibles)? Never [email or web address] Information not available 10/06/2024 How Often In The Past Year Have You Used Prescription Medications That Were Not Prescribed To You? Never [email or web address] Information not available 10/06/2024 How Often In The Past Year Have You Taken Your Own Prescription Medication More Than The Way It Was Prescribed Or For Different Reasons Than Its Intended Purpose? Never Information no t available 10/06/2024 How Often In The Past Year Have You Used Other Drugs (for Example, Heroin, Cocaine, Meth, Salvia, Inhalants)? Never [email or web address] Information not available 10/06/2024 Have You Ever Used IV Drugs? Yes 10 Years Ago [email or web address] Information not available 10/06/2024 What Matters Most To You? Vision, Overall Health [email or web address] Information not available 10/06/2024 During The Past Four Weeks Has Your Physical And Emotional Health Limited Your Social Activities With Family And Friends, Neighbors, Or Groups? Moderately [email or web address] Information not available 10/06/2024 During The Past Four Weeks, Was Someone Available To Help You If You Needed And Wanted Help? (For Example, If You [place] Very Nervous, Lonely, Or Blue; Got Sick And Had To Stay In Bed; Needed Someone To Talk To; Needed Help With Daily Chores; Or Needed Help Just Taking Care Of Yourself.) Yes- Quite A Bit [email or web address] Information not available 10/06/2024 During The Past Four Weeks, What Was The Hardest Physical Activity You Could Do For At Least 2 Minutes? Heavy [email or web address] Information not available 10/06/2024 Can You Get To Places Out Of Walking Distance Without Help? (For Example, Can You Travel Alone On Buses Or Taxis, Or Drive Your Own Car?) No [email or web address] Information not available 10/06/2024 Can You Go Shopping For Groceries Or Clothes Without Someone? s Help? No [email or web address] Information not available 10/06/2024 Can You Prepare Your Own Meals? No [email or web address] Information not available 10/06/2024 Can You Do Your Housework Without Help? Yes [email or web address] Information not available 10/06/2024 Because Of Any Health Problems, Do You Need The Help Of Another Person With Your Personal Care Needs Such As Eating, Bathing, Dressing, Or Getting Around The House? Yes Information not available 10/06/2024 Can You Handle Your Own Money Without Help? Yes [email or web address] Information not available 10/06/2024 Are You Having Difficulties Driving Your Car? Not Applicable- I Do Not Use A Car [email or web address] Information not available 10/06/2024 How Often During The Past Four Weeks Have You Been Bothered By Any Of The Following Problems? Falling Or Dizzy When Standing Up? Often Information not available 10/06/2024 Sexual Problems? Never [email or web address] Informat ion not available 10/06/2024 Trouble Eating Well? Never [email or web address] Information not available 10/06/2024 Teeth Or Denture Problems? Always fcctdfu324 Information not available 10/06/2024 Problems Using The Telephone? Always Can't See Phone [email or web address] Information not available 10/06/2024 Tiredness Or Fatigue? Always icefgjt674 Information not available 10/06/2024 Have You Had 2 Or More Falls Or Sustained An Injury With A Fall In The Last Year? Yes Information not available 10/06/2024 Do You Have Difficulty With Walking Or Balance? Yes [email or web address] Information not available 10/06/2024 Do You Currently Use A Hearing Device? No [email or web address] Information not available 10/06/2024 Do You Currently Have Any Trouble With Your Vision? Yes [email or web address] Information no t available 10/06/2024 Do You Exercise For About 20 Minutes Three Or More Days A Week? No- I Usually Do Not Exercise Much [email or web address] Information not available 10/06/2024 Are There Any Safety Concerns In Your Home (see Attached [facility] [place] Pamphlet)? Yes Stairs, Cooking [email or web address] Information not available 10/06/2024 How Often Do You Have Trouble Taking Medicines The Way You Have Been Told To Take Them? Sometimes I Take Them As Prescribed Information not available 10/06/2024 How Confident Are You That You Can Control And Manage Most Of Your Health Problems? Somewhat Confident [email or web address] Information not available 10/06/2024 Do You Currently Have Any Difficulty With Your Hearing? No Information not available 10/06/2024 Date Of Most Recent SBINS 10/06/2024 [email or web address] Information not available 10/06/2024 What Was The Date Of Your Most Recent Tobacco Screening? 10/06/2024 [email or web address] Information not available 10/06/2024 What Is Your Current Pack Years? 30ormorepacky ears Information not available 11/03/2023 At What Age Did You Start Smoking Tobacco? 14 Information not available 11/03/2023 How Much Tobacco Do You Smoke? 1 PPW Information not available 11/03/2023 Has Tobacco Cessation Counseling Been Provided? Yes Pt Declines. [email or web address] Information not available 10/06/2024 On What Date Was Tobacco Cessation Counseling Provided? 10/06/2024 Pt Just Not Ready Yet. Information not available 10/06/2024 How Many Years [...] Time Mother Family history of kidney disease deisy.70 Not available 2022 03:50:23 Mother Family history of diabetes mellitus type 1 linprenate.70 Not available 2022 03:50:26 Notes:*Problem: Mother: chichi [...] mcg/0.3 mL 4 completed ARMIDA HIRSCH MA [facility], [facility] 09/01/2024 18:38:23 Influenza, split virus, trivalent, PF 4 completed BARNEY HENDERSON MD [address], [place], [address], [facility] 09/01/2024 16:09:15 Td (adult), 5 Lf tetanus toxoid, preservative free, adsorbed 7 completed Not Available [facility] 08/27/2023 06:21:08 Tdap 7 completed Not Available [facility] 08/27/2023 06:21:08 Novel [id number], all formulations 9 completed Not Available [facility] 08/27/2023 06:21:08 Td(adult) unspecified formulation 1 completed Not Available [facility] 08/27/2023 06:21:08 Influenza, split virus, trivalent, preservative 6 completed Not Available [facility] 08/27/2023 06:21:08 Influenza, split virus, quadrivalent, PF 2 completed Not Available Replaced by [facility] 08/27/2023 06:21:08 Influenza, split virus, quadrivalent, PF 3 completed Not Available Replaced by [facility] 08/27/2023 06:21:08 Influenza, split virus, quadrivalent, preservative 8 completed Not Available Replaced by [facility] 08/27/2023 06:21:09 COVID-19, mRNA, LNP-S, PF, 100 mcg/0.5mL dose or 50 mcg/0.25mL dose 2 completed Not Available Replaced by [facility] 08/27/2023 06:21:09 COVID-19 vaccine, vector-nr, rS-Ad26, PF, 0.5 mL 1 completed Not Available Replaced by [facility] 08/27/2023 06:21:09 COVID-19, mRNA, LNP-S, bivalent, PF, 30 mcg/0.3 mL dose 3 completed Not Available Replaced by [facility] 08/27/2023 06:21:09 pneumococcal polysaccharide PPV23 0 completed Not Available Replaced by [facility] 08/27/2023 06:21:09 influenza, unspecified formulation 9 completed Not Available Replaced by [facility] 08/27/2023 06:21:09 influenza, unspecified formulation 8 completed Not Available Replaced by [facility] 08/27/2023 06:21:09 influenza, unspecified formulation 7 completed Not Available Replaced by [facility] 08/27/2023 06:21:09 Influenza, split virus, quadrivalent, PF 3 completed Not Available Replaced by [facility] 10/29/2023 05:31:09 Pneumococcal conjugate PCV20, polysaccharide VIS786 conjugate, adjuvant, PF 3 completed Not Available Replaced by [facility] 10/29/2023 05:31:11 Past Encounters Encounter ID Performer Location Encounter Start Date Encounter Closed Date Diagnosis/Indication Diagnosis SNOMED-CT Code Diagnosis ICD10 Code [id number] BARNEY HENDERSON MD [address] [address] 09/01/2024 14:30:48 09/01/2024 15:49:47 Asthma-chronic obstructive pulmonary disease overlap syndrome 0790868504 3069840 J44.9 Essential hypertension 69351875 I10 Anxiety 34193928 F41.9 Neuropathy due to type 2 diabetes mellitus 7527962808 22019 E11.40 Hyperlipidemia 61773411 E78.5 Gastroesop hageal reflux disease without esophagitis 383366187 K21.9 Sleep apnea 27836209 G47 .30 History of fall 95916366 9 Z91.81 Active or passive immunization 363597152 Z23 Dyspnea on exertion 6084 5006 R06.09 Smoker 66411639 F17.210 Tobacco us e cessation education 339150778 Z71.6 Legal blindness 84718656 H54.8 Food insecurity 66913840 3 Z59.41 Chronic hepatitis C 1283 92675 B18.2 Toenail thickened 235277 000 R23.8 Pruritic rash 24883956 L 28.2 Health Concerns Section Related Observation LastModified by Organization Detai ls LastModified Time None Recorded Concern Status LastModified by Organization Details LastModified Time None Recorded Payers Encounter Date Sequence Insurance Name Policy Number Policy Salmon Covered Member ID Salmon Member ID Guarantor Name 09/01/2024 2 [facility] (MEDICAID) Lea Vasquez [id number] Lea Vasquez 09/01/2024 1 MEDICARE-OR - PART A - [facility] (MEDICARE) Lea Vasquez [id number] Lea Vasquez Notes Date Note Type Note Provider Name and Address Organization Details Recorded Time 09/01/2024 text/html CC: f/u COPD, visual impairment d/t diabetic retinopathy and cataracts, DM2, [...] 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 BARNEY HENDERSON MD [address], [place], [address], [facility]. 09/01/2024 16:11:54 OBGyn Episode No OBEpisode recorded.
--- OUTSIDE RECORDS SUMMARY | 2024-10-19 21:14 | XMS_ITS | Encounter Summary ---
Author Organization [facility] Address [address] [place] [address] Care Team Providers Care Overhead Worker Name Role Phone Sharon Vargas MD Primary Care Provider [phone] Encounter Details Date Type Department Care Team (Late st Contact Info) Description 06/26/2021 Lab Requisition [facility] Pathology & Laboratory Medicine - [facility] [address] [place] [address] Outr Resulting Lab, Provider Social History Tobacco [...] Info) Description 10/27/2024 14:15 EST Office Visit [facility] Ophthalmology [facility] [address] [place] [address] Consuelo Nicole MD [address] [place] [address] documented as of this encounter Procedures Procedure [...] AL ORDERABLES Final Result Performing Organization Address City/[facility]/ZIP Co de Phone Number [facility] [address] [place] [address] * COVID-19 TESTING (06/25/2021 16:45 EDT) COVID-19 rt-PCR Result Negative Negative 06/27/2021 11:08 EDT [facility] Comment: This test has [...] performed using the jaron SARS-CoV-2 assay ([employer] on the Jaron 6800 System Performing Lab Jaron [address] [facility] Lab 06/27/2021 11:08 EDT [facility] Swab 06/25/2021 16:4 5 EDT 06/26/2021 16:08 EDT us Provider Outr Resulting Lab MICROBIOLOGY - GENER AL ORDERABLES Final Result Performing Organization Address City/[facility]/ZIP Co de Phone Number [facility] [address] [place] [address] documented in this encounter Visit Diagnoses Not on filedocumented in this encounter Care Teams Overhead Worker Relationship Specialty Start Date End Date Sharon Vargas MD [address] [place] [phone] PCP - General 09/09/15 documented as of this encounter
--- OUTSIDE RECORDS SUMMARY | 2024-10-19 21:14 | XMS_ITS | Encounter Summary ---
Author Organization [facility] Address [address] [place] [address] Care Team Providers Care Straightening Press Operator Helper Name Role Phone Sharon Vargas MD Primary Care Provider [phone] Reason for Visit * Reason Onset Date Comments Appointment Related 03/08/2024 Encounter Details Date Type Department Care Team (Late st Contact Info) Description 03/08/2024 Telephone [facility] [address] [place], [place] [phone] Consuelo Nicole MD [address] [place] [phone] Appointment Related Social History Tobacco Use [...] Info) Description 10/27/2024 14:15 EST Office Visit [facility] [address], [place] [phone] Consuelo Nicole MD [address] [place] [address] documented as of this encounter Visit Diagnoses Not on filedocumented in this encounter Care Teams Straightening Press Operator Helper Relationship Specialty Start Date End Date Sharon Vargas MD [address] [place] [address] PCP - General 09/09/15 documented as of this encounter
--- OUTSIDE RECORDS SUMMARY | 2024-10-19 21:14 | XMS_ITS | Encounter Summary ---
Author Organization [facility] Address [address] [place] [address] Care Team Providers Care Integration Aide Name Role Phone Sharon Vargas MD Primary Care Provider [phone] Encounter Details Date Type Department Care Team (Late st Contact Info) Description 01/02/2023 Lab Requisition [facility] Pathology & Laboratory Medicine - [facility] [address] [place] [address] Outr Resulting Lab, Provider Social History Tobacco [...] Info) Description 10/27/2024 14:15 EST Office Visit [facility] Ophthalmology [facility] [address] [place] [address] Consuelo Nicole MD [address] [place] [address] documented as of this encounter Procedures Procedure Name Priority Date/Time Associated Diagnosis Comments HCV RNA DETECT QUANT Today 01/01/2023 11:40 EDT HEPATITIS C AB W REFLEX TO HCV RNA BY PCR Routine 01/01/2023 11:40 EDT documented in this encounter Results * (ABNORMAL) HCV RNA DETECT QUANT (01/01/2023 11:40 EDT) HCV RNA Qualitative Detected( A) Undetected 01/04/2023 12:46 EDT [facility] HCV RNA Quantitative 3,370,000 (H) Undetected IU/mL 01/04/2023 12:46 EDT [facility] Blood VENOUS BLOOD / Unknown 01/01/2023 11:40 EDT 2023 15:59 EDT Narrative [facility] - 01/04/2023 12:46 EDT The quantification range of this assay is 15 IU/mL to 100,000,000 IU/mL. Testing was performed using the Jaron HCV test ([employer] with the jaron [employer] System. us Provider Outr Resulting Lab CHEMISTRY & BLOOD GA S ORDERABLES Final Result Performing Organization Address [facility]/ZIP Co de Phone Number [facility] [address] [place] [address] * (ABNORMAL) HEPATITIS C AB W REFLEX TO HCV RNA BY PCR (01/01/2023 11:40 EDT) Pathologist [facility] Hep C Antibody Reactive(A ) Negative 01/04/2023 10:01 EDT [facility] Comment: Supplemental testing for HCV RNA is ordered to rule out active HCV infection. Blood VENOUS BLOOD / Unknown 01/01/2023 11:40 EDT 2023 15:59 EDT us Provider Outr Resulting Lab CHEMISTRY & BLOOD GA S ORDERABLES Final Result Performing Organization Address City/[facility]/ZIP Co de Phone Number [facility] [address] [place] [address] documented in this encounter Visit Diagnoses Not on filedocumented in this encounter Care Teams Integration Aide Relationship Specialty Start Date End Date Sharon Vargas MD [address] [place] [phone] PCP - General 09/09/15 documented as of this encounter
--- OUTSIDE RECORDS SUMMARY | 2024-10-19 21:14 | XMS_ITS | Continuity of Care Document ---
Author Organization [place] - [facility], [facility] Address [address] [place] [address] Care Team Providers Care Trust Accounts Supervisor Name Role Phone [facility] OPHTH[facility]MOLOGY - [place] Ophtha lmologist Assessment Encounter Date Assessment Date Assessment LastModified by Organization Details LastModified Time 10/06/2024 10/06/2024 Patient presente d to office [...] - Plan: a. Order liver ultrasound at [facility]. b. Perform Hepatitis C viral load test. [...] with a document listing completed preventive services. [email or web address] Not available 10/06/2024 15:38:27 Plan of Treatment Reminders Order Date Submit Date Provider Last Modified By Organization Details Last Modified Time Details Appointments hospital follow up 2024 03:00P M BARNEY HENDERSON Not available Not available Not available Nurse Visit 2024 01:00P M Carol Nursing Staff Not available Not available Not available Follow Up 2024 01:50P M BARNEY HENDERSON Not available Not available Not available Follow Up 2024 02:30P M BARNEY HENDERSON Not available Not available Not available Lab CMP, serum or plasma 2023 024 [facility] (Registration ), [address] [place] [address] [place], [address], 10/06/2024 23:19:49 CBC w/ auto diff 2023 024 [facility] (Registration ), [address] [place] [address] [place], [address], 10/06/2024 23:05:50 hepatitis C virus RNA, quant, PCR, serum or plasma 2023 024 [email or web address] [facility] (Registration ), [address] [place] [address] [place], [address], 10/10/2024 09:29:40 lipid panel, serum 2023 024 [email or web address] [facility] (Registration ), [address] [place] [address] [place], [address], 10/10/2024 09:29:20 Referral physical therapist referral - generaliz ed weakness/ deconditi oning related to cirrhosis , diabetic neuropath y and visual impairmen t. would like to work on general strengthe lynnette and balance. [address] [facility], [address] [place], [address], 10/06/2024 15:55:22 Procedures None recorded. Surgeries None recorded. Imaging US, liver - known cirrhosis , assess degree of fibrosis for Hep C treatment 2023 [facility] - Radiology, [address] [facility], [place], [address], 10/06/2024 15:45:26 Medication Orders Glucagon (HCl) Emergency Kit 1 mg solution for injection 2023 [employer] [address], [place], [address], 10/06/2024 15:38:32 Breo Ellipta 200 mcg-25 mcg/dose powder for inhalatio n 2023 [employer] [address], [address], [place], [address], 10/06/2024 15:38:32 Patient TargetsNo targets recorded. Patient Instructions Encounter Date Encounter Id Patient Instructions Last Modified By Organization Details Last Modified Time 10/06/2024 [id number] Date: WedOct 06 2024 Dear Lea, Thank you for visiting us today. We appreciate your commitment to improving your health and managing your conditions effectively. Here's a summary of our discussion and the next steps for your treatment plan: - Blood Work: Complete tests for liver function, kidney function, cholesterol, and Hep C viral load. 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 - Ultrasound: Schedule an ultrasound of your liver at [facility] to assess the degree of cirrhosis. - Hep C Treatment: Two medication options were discussed. The preferred regimen is one pill daily for 12 weeks. It is VERY IMPORTANT to take this medication consistently and not miss any doses (to avoid resistance/treatm ent failure). - Physical Therapy: A referral has [...] contact our office. Wishing you a Merry Lissa and a Happy New Year! Best regards, Dr. Barney Henderson MD Family Medicine [email or web address] Not available 10/06/2024 15:38:01 Discussed and explained advance directives such as standard forms to the {{patient caregiv er patient and caregiver}}. Face to face discussion lasted for a duration of ___ minutes. [email or web address] Not available 10/05/2024 17:30:53 Reason for Referral Physical Therapist Referral for Muscle weakness generalized weakness/deconditioning related to cirrhosis, diabetic neuropathy and visual impairment. would like to work on general strengthening and balance. Referring Physician: Barney Henderson, Family Medicine, Encounter Date: 10/06/2024 Results Created Date Observation Date Name Description Value Unit Range Abnormal Flag Note LastModifiedBy Organization Detail LastModifiedTime 10/07/20 24 10/07/2024 CT ABD pelvi s wo IV or oral contr ast [facility]GY Jeff Mchugh [id number] RADIOL OGY TRANSC RIPTIO N REPORT _ Patien t Name: ERROL RUTH MS ZEESHAN Kaminski MRN: Sex: : Age: [id number] F [id number] Accoun t: Access ion: Admit: StayTy pe: [id number] 2023 Mina Verde d: Order ID: Submit curtis: Rosetta Flood er: 2023 14:14 [id number] CAROLINA MCINTOSH curtis: Techno logist : Result [...] possib ly reacti ve. Thank you for gail g us partic ipate in the care of this patien t. If you are a health care [facility] er and have any questi ons regard ing this report , please contac t the number below. For patien ts who have questi ons please contac t the health care profes sional that reques curtis your imagin g first. Electr onical ly signed by: Júnior Vick MD Radiol jimmy Adams olive ([phone]), at 2023 3:51 PM [facility] (Lab) [address] [place] [address], [address], 10/07/2024 15:57:10 Result Notes None recorded. Problems Name Problem SNOMED Code Status Onset Date Resolution Date Notes Provider Name and Address Organization Details Recorded Time Complica tion due to diabetes mellitus 76289741 Active [address], [address] 14:41:01 Gastroes ophageal reflux disease without esophagi tis 490871039 Active [address], [address] 15:41:02 Sleep apnea 92757618 Active [address], [address] 15:41:33 Dyspnea on exertion 35304644 Active [address], [address] 16:02:44 Smoker 11334595 Active [address], [address] 16:03:44 Legal blindnes s 56932220 Active [address], [address] 16:04:00 Toenail thickene d 084016585 Active [address], [address] 16:07:44 Pruritic rash 86628804 Active [address], [address] 11/15/202 4 16:09:31 Retroper itoneal lymphade nopathy 874282151 Active 2023 jelena rivera, [facility] 5 12:10:08 Renal failure syndrome 68600067 Active 2023 jelena rivera, [facility] 5 12:10:41 Acute exacerba tion of chronic obstruct vishnu pulmonar y disease 878155411 Active 2024 BARNEY HENDERSON MD [address], [place], [address] , [facility] 5 15:11:03 Acute renal insuffic iency 138062617 Active [address], [place], [address] , [facility] 5 16:57:59 [facility]entia l hyperten kevon 61972446 [facility] 4 09:53:15 Hyperlip idemia 74192448 Active 2005 [facility] 4 10:08:20 Uncompli cated moderate persiste nt asthma 343113462 Active 2005 [facility] 4 10:24:46 Severe obesity 66580718471 104 Active 2005 Kristie Fran [facility] 4 10:22:09 Chronic hepatiti s C 855382080 Active 2003 pos viral load not treated [facility] 4 09:47:44 Pain of right shoulder joint 01339953679 208828 Active 2014 [facility] 4 10:17:43 Neuropat hy due to type 2 diabetes mellitus 54205845687 9106 Active 2014 uncontro lled, w/neurol o comps [facility] 4 10:17:28 Idiopath ic osteoart hritis 317975542 Active 2014 DJD, knees, bilatera l [facility] 4 10:08:49 Renal disorder due to type 2 diabetes mellitus 018510722 Active 2015 Diabetic nephropa thy [facility] 4 10:21:57 Derangem ent of right knee 33042510094 990210 Completed 201505/05/2016 Problem Code: M23.91; Problem Code Type: ICD-10; Not Available [facility] 3 04:12:16 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 56251937464 9104 Active 2015 (not billable after 6) [facility] 4 10:16:21 Cocaine abuse 75921058 Active 2016 episodic [facility] 4 09:50:22 Tobacco use cessatio n educatio n Active 2016 [facility] 4 10:22:41 Gallblad mark calculus with acute cholecys titis and no obstruct ion 119573721 Completed 201612/29/2016 Problem Code: K80.00; Problem Code Type: ICD-10; Not Available [facility] 3 04:12:17 Acute asthma 550076012 Completed 201604/13/2017 Problem Code: J45.901; Problem Code Type: ICD-10; Not Available [facility] 3 04:12:17 Cellulit is 972515933 Completed 201607/16/2017 Problem Code: L03.90; Problem Code Type: ICD-10; Not Available [facility] 3 04:12:17 Atopic dermatit is 80659254 Active 2017 Kristie Fran [facility] 4 09:45:01 Impetigo 32691535 Completed 201705/03/2018 Problem Code: L01.00; Problem Code Type: ICD-10; Not Available [facility] 3 04:12:17 Screenin g mammogra phy Completed 201804/20/2019 Problem Code: Z12.31; Problem Code Type: ICD-10; Not Available [facility] 3 04:12:18 History of diabetic foot ulcer 22310496482 330008 Active 2018 [facility] 4 10:01:51 Chronic obstruct vishnu pulmonar y disease 28550338 Active 2018 Asthma with COPD [facility] 4 09:48:31 Anemia 459369433 Active 2018 [facility] 4 09:39:01 Albumin level - finding 844747899 Active 2018 decrease d [facility] 4 09:37:16 Peripher al venous insuffic iency 99565595 Active 2018 Stasis ulcer [facility] 4 10:18:18 Cough 48080249 Completed 201908/22/2020 Problem Code: R05; Problem Code Type: ICD-10; Not Available [facility] 3 04:12:19 Endocrin e/metabo lic screenin g Completed 202012/28/2020 Problem Code: Z13.29; Problem Code Type: ICD-10; Not Available [facility] 3 04:12:19 Counseli ng Active 2020 Immuniza tion counseli ng [facility] 4 09:51:24 Generali zed anxiety disorder 37485818 Active 2020 [facility] 4 10:01:19 Vomiting 062014607 Completed 202006/26/2021 Problem Code: R11.10; Problem Code Type: ICD-10; Not Available [facility] 3 04:12:19 Insect bite Completed 202007/09/2021 Not Available [facility] 3 04:12:20 Cirrhosi s of liver 21828114 Active 2022 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 with possible contribu tion of [place], decompen sated [facility] 4 09:49:47 Jaundice 07478567 Active 2022 [facility] 4 10:09:01 Muscle weakness 31497131 Active 2022 (general ized) [facility] 4 10:16:46 Opioid abuse 9020292 Completed 202209/28/2023 Problem Code: F11.10; Problem Code Type: ICD-10; Not Available [facility] 4 05:34:22 Lichen simplex chronicu s 74356200 Active 2022 Neuroder matitis [facility] 4 10:10:12 History of osteomye litis 204228139 Active 2022 [facility] 4 10:05:22 Opioid abuse 2585382 Completed 201807/14/2023 03/04/20 21 - Comments only - Barney Henderson MD - offered scg for OBT but she states she plans to try to establis h tx thru [facility]. Not interest ed in Suboxone or Vivitrol ; might be interest ed in Sublocad e. Problem Code: F11.10; Problem Code Type: ICD-10; Not Available [facility] 3 04:12:22 Cholelit hiasis without obstruct ion 59150418 Completed 201512/22/2016 Problem Code: K80.20; Problem Code Type: ICD-10; Not Available [facility] 3 04:12:22 Candidia sis of vagina 01295519 Completed 201503/27/2016 Problem Code: B37.3; Problem Code Type: ICD-10; Not Available [facility] 3 04:12:23 Traumati c or non-trau matic injury 694741825 Completed 201607/14/2023 Problem Code: T14.8; Problem Code Type: ICD-10; Not Available [facility] 3 04:12:23 Disorder of teeth AND/OR supporti ng [facility] 239677503 Completed 201503/17/2016 Problem Code: K08.8; Problem Code Type: ICD-10; Not Available [facility] 3 04:12:23 Uncompli cated asthma 659150088 Completed 200507/14/2023 Problem Code: J45.909; Problem Code Type: ICD-10; Not Available [facility] 3 04:12:23 Hyperten sive disorder 36572645 Completed 200507/14/2023 Not Available [facility] 3 04:12:24 Scar conditio ns and fibrosis of skin 689478926 Completed 201604/23/2017 Problem Code: L90.5; Problem Code Type: ICD-10; Not Available [facility] 3 04:12:24 Human papillom a virus infectio n 311231176 Completed 201607/14/2023 Problem Code: B97.7; Problem Code Type: ICD-10; Not Available [facility] 3 04:12:24 Morbid obesity 148052348 Completed 200507/14/2023 Not Available [facility] 3 04:12:24 Foot ulcer due to type 2 diabetes mellitus 73136190152 00 Completed 201512/22/2016 01/20/20 19 - Comments [...] E11.621; Problem Code Type: ICD-10; Kristie rivera [facility] 4 09:59:50 Periapic al abscess 934644039 Completed 201403/17/2016 Problem Code: K04.7; Problem Code Type: ICD-10; Not Available [facility] 3 04:12:25 Drug abuse 84115952 Completed 200707/14/2023 Problem Code: 305.90; Problem Code Type: ICD-9; Not Available [facility] 3 04:12:25 Opioid dependen ce in remissio n 883055214 Completed 201807/14/2023 09/26/20 19 - Comments only [...] F11.21; Problem Code Type: ICD-10; Not Available [facility] 3 04:12:25 Gynecolo gic examinat ion Completed 201602/02/2017 Problem Code: Z01.419; Problem Code Type: ICD-10; Not Available [facility] 3 04:12:26 Nodule on toe 354428472 Completed 201605/25/2019 Not Available [facility] 3 04:12:26 Pain of right knee joint 42994741655 4100 Completed 201502/02/2017 Problem Code: M25.561; Problem Code Type: ICD-10; Not Available [facility] 3 04:12:26 Candidia sis of skin 89170098 Completed 201503/27/2016 Problem Code: B37.2; Problem Code Type: ICD-10; Not Available [facility] 3 04:12:26 Dysuria 12725696 Completed 201505/07/2016 Problem Code: R30.0; Problem Code Type: ICD-10; Not Available [facility] 3 04:12:27 Retinopa thy due to type 2 diabetes mellitus 184328561 Completed 201507/14/2023 Problem Code: E11.319; Problem Code Type: ICD-10; Not Available [facility] 3 04:12:27 Infectio n of skin and/or subcutan eous tissue 62069679 Completed 202204/30/2023 Problem Code: L08.89; Problem Code Type: ICD-10; Not Available [facility] 3 04:12:27 Tobacco dependen ce caused by cigarett es 96146688242 553008 Completed 200305/25/2019 Problem Code: F17.210; Problem Code Type: ICD-10; Not Available [facility] 3 04:12:27 Opioid dependen ce 24133188 Completed 200309/04/2015 05/25/20 19 - Comments only - [facility]al [facility] Problem Code: F11.20; Problem Code Type: ICD-10; Not Available [facility] 3 04:12:28 Asthma 331762073 Completed 200507/14/2023 Not Available [facility] 3 04:12:28 Pain of joint of knee 1862852659 Completed 201407/14/2023 Problem Code: M25.569; Problem Code Type: ICD-10; Not Available [facility] 3 04:12:28 Cellulit is of right lower limb 37413129538 137366 Completed 201805/25/2019 Problem Code: L03.115; Problem Code Type: ICD-10; Not Available [facility] 3 04:12:28 Shoulder joint pain 852077021 Completed 201407/14/2023 Problem Code: 719.41; Problem Code Type: ICD-9; Not Available [facility] 3 04:12:29 Smoker 88017635 Completed 200307/14/[address], [facility] [address] , [facility] 4 16:03:44 Chronic ulcer of foot 379011753 Completed 201601/05/2017 Problem Code: L97.529; Problem Code Type: ICD-10; Not Available [facility] 3 04:12:29 Type 2 diabetes mellitus without complica tion 594627556 Completed 200307/14/2023 Problem Code: 250.00; Problem Code Type: ICD-9; MD Shailesh BOLIVAR Dr, [facility] [address] , [facility] 4 14:43:16 Pain of left knee joint 37502296402 4107 Completed 201407/14/2023 Problem Code: M25.562; Problem Code Type: ICD-10; Not Available [facility] 3 04:12:30 Depressi ve disorder 05439706 Completed 200307/14/[address], [facility] [address] , [facility] 4 14:41:17 Hypergly cemia due to type 2 diabetes mellitus 93727609893 9109 Completed 200309/04/2015 Problem Code: E11.65; Problem Code Type: ICD-10; Not Available [facility] 3 04:12:30 Chest pain 83562385 Completed 201605/25/2019 Problem Code: R07.89; Problem Code Type: ICD-10; Not Available [facility] 3 04:12:31 Drug dependen ce 000004821 Completed 200307/14/2023 Problem Code: 304; Problem Code Type: ICD-9; Not Available [facility] 3 04:12:31 Cellulit is of toe of right foot 17053482591 507541 Completed 201505/11/2016 Problem Code: L03.031; Problem Code Type: ICD-10; Not Available [facility] 3 04:12:31 Osteoart hritis of knee 504825618 Completed 201402/02/2017 Problem Code: M17.9; Problem Code Type: ICD-10; Not Available [facility] 3 04:12:32 History of infectio us disease 096548002 Completed 201409/04/2015 Problem Code: Z86.19; Problem Code Type: ICD-10; Kristie rivera [facility] 4 10:05:01 Tobacco user 561054166 Completed 200508/06/2015 Not Available [facility] 3 04:12:32 Viral screenin g Completed 202209/10/2023 Problem Code: Z11.52; Problem Code Type: ICD-10; Not Available [facility] 4 05:34:15 Acute upper respirat ory infectio n 86854139 Completed 202208/18/2023 Problem Code: J06.9; Problem Code Type: ICD-10; Not Available [facility] 4 05:34:15 Type 2 diabetes mellitus without complica tion 808191648 Completed 202309/01/2024 Problem Code: 250.00; Problem Code Type: ICD-9; BARNEY HENDERSON MD [address], [place], [address] , [facility] 4 14:43:16 Asthma-c hronic obstruct vishnu pulmonar y disease overlap syndrome 95248756793 177975 Active 2023 Kristie rivera [facility] 4 09:39:21 Decompen sated cirrhosi s of liver 185161475 Active 2023 Child Bourgeois score 8/Class B as of 12/2022 [facility] 4 09:51:34 Visual impairme nt 167601286 Active 2023 [facility] 4 10:29:20 Thickene d nails 513648460 Active 2023 [facility] 4 10:22:14 Thickeni ng of skin 18629043 Completed 202309/01/2024 BARNEY HENDERSON MD [address], [place], [address] [facility] 4 14:43:15 Acquired hammer toes of bilatera l feet 90774449213 721894 Active 2023 [facility] 4 09:37:02 History of amputati on of right foot 99071801004 204406 Active 2023 [facility] 4 10:01:25 Combined form of senile cataract 12504703 Active 2023 [facility] 4 09:50:32 Unintent ional weight loss 280200033 Active 2022 [facility] 4 10:24:46 History of amputati on of lesser toe 010103090 Active 2022 [facility] 4 09:38:36 History of intraven ous drug abuse 33869614081 885286 Active 2007 heroin [facility] 4 09:40:14 Left ventricu lar hypertro phy 18671840 Active 2015 mild concentr ic 12/31 echo (nl EF) [facility] 4 09:47:08 Follicul itis 62134614 Active 2022 [facility] 4 09:52:22 Peripher al edema 466134905 Active 2014 [facility] 4 09:52:55 Mild persiste nt asthma 917420838 Active 2022 with acute exacerba tion [facility] 4 09:54:28 Family history of Alzheime r's disease 901156531 Active 2018 mother age 50, maternal grandmot her, maternal aunts and uncles; no genetic testing done [facility] 4 09:56:26 Diabetic foot ulcer 775917755 Active 2022 [facility] 4 09:59:46 History of cholecys tectomy 819880938 Active 2016 laparosc opic, 01/01 [facility] 4 10:00:55 History of human papillom a virus infectio n 02950708149 9102 Active 01/01; nl pap; neg colpo 04/03 incl ECC; neg pap 11/05; 5 yr f/u [facility] 4 10:04:56 History of opioid abuse 26113034371 9100 Active 2018 Hx of opioid abuse -- [facility] resumed suboxone 09/07 [facility] 4 10:08:01 Edentulo us 859811186 Active 2015 s/p complete extr due to advanced caries 03/02 [facility] 4 10:13:37 Major depressi ve disorder 907086346 Active 2022 Major depressi on [facility] 4 10:15:28 Traumati c partial amputati on of right great toe Active 2018 initial encounte r [facility] 4 10:23:54 Stasis dermatit is 83291878 Active 2021 Venous stasis dermatit is [facility] 4 10:30:44 Diabetes mellitus 39225742 Completed 202309/01/[address], [facility] [address] , [facility] 4 14:43:16 Type 2 diabetes mellitus 91395847 Completed 202309/01/[address], [place], [address] , [facility] 4 14:43:16 Obesity 307176159 Active [address], [facility] [address] , [facility] 4 20:58:25 Hemoglob in A1c greater than 9% indicati ng poor diabetic control 46860227865 4104 Completed 202309/01/[address], [facility] [address] , [facility] 4 14:43:16 Problem Notes None recorded. Medical Equipment None Reported. Allergies Allergen ID Allergen Name Allergen Category Reaction Reaction Severity Criticality Documentation Date Start Date Code Code System Note Provider Name and Address Organization Details Recorded Time 39036 lisinopri l medicatio n cough moderate Not available 08/27/20232009 42909 RxNorm [facility]. 4 10:31:16 38537 metoprolo l succinate medicatio n other moderate Not available 08/27/20232018 21453 4 RxNorm No react ion enter ed [facility]ie [facility] 4 10:31:36 33645 codeine medicatio n hives moderate Not available 08/27/20232002 2670 Rx[facility] 4 10:31:10 Medications Name Sig Start Date [...] Stockings Dx: peripher al edema 11/04 completed [facility] [place] Not Available Not Available Not Available gabapenti n 300 mg tablet 3 cap three times daily 06/16 completed Not Available Not Available Not Available albuterol 2INH four times daily 07/31 completed Not Available Not Available Not Available Nystatin (Topical) cream apply BID 05/28 completed Not Available Not Available Not Available Nebulizer Dx: Asthma J45.40 Smoking Z71.6 2018 active [place] in [place] Not Available Not Available Not Available Humalog [...] needle subcutan eously three times a day 09/014 completed Not Available Not Available Not Available Trulicity 1.5 mg/0.5 mL subcutane ous pen injector Inject 1.5 mg subcutan eously once a week 11/04 completed Not Available Not Available Not Available Trulicity 0.75 mg/0.5 mL subcutane ous pen injector Inject 0.75 mg subcutan eously once a week 11/11 completed Not Available Not Available Not Available [place] SoloStar U-300 Insulin 300 unit/mL (1.5 mL) [...] Organization Details Last Updated DateTime 155.58 cm 35.5 kg/m2 23259.3 9 g 97.8 [degF] 96 % 96 % 79 /min 126 mm[Hg] 72 mm[Hg] ROSIBEL SALGADO RN [facility] 13:24:33 Social History Question Answer Notes LastModified by Organizat ion Details LastModified Time Tobacco Smoking Status Current Every Day Smoker SURJIT KITCHEN LPN null, [facility] 11/03/2023 13:42:55 Date Of Most Recent HSA 10/06/2024 [email or web address] Information not available 10/06/2024 Would You Say That, In General, Your Health Is Poor [email or web address] Information not available 10/06/2024 Women Aged 18-50 - Would You Like To Become In The Next Year? (Female Patients Only) No [email or web address] Information not available 10/06/2024 How Often Does Anyone, Including Family, Physically Hurt You? Never [email or web address] Information not available 10/06/2024 How Often Does Anyone, Including Family, Insult Or Talk Down To You? Never [email or web address] Information no t available 10/06/2024 How Often Does Anyone, Including Family, Threaten You With Harm? Never [email or web address] Information not available 10/06/2024 How Often Does Anyone, Including Family, Scream Or Curse At You? Never [email or web address] Information not available 10/06/2024 Within The Past 12 Months, You Worried That Your Food Would Run Out Before You Got Money To Buy More. Sometimes True [email or web address] Information not available 10/06/2024 Within The Past 12 Months, The Food You Bought Just Didn't Last And You Didn't Have Money To Get More. Sometimes True [email or web address] Information not available 10/06/2024 How Hard Is It For You To Pay For The Very Basics Like Food, Housing, Medical Care, And Heating? Would You Say It Is: Very Hard [email or web address] Information not available 10/06/2024 In The Past 12 Months, Has Lack Of Reliable Transportation Kept You From Medical Appointments, Meetings, Work Or From Getting Things Needed For Daily Living? Yes [email or web address] Information not available 10/06/2024 What Is Your Housing Situation Today? I Have Housing. Information not available 10/06/2024 How Often In The Past Year Have You Used Marijuana (including Smoking, Vaping, Dabbing, Or Edibles)? Never [email or web address] Information not available 10/06/2024 How Often In The Past Year Have You Used Prescription Medications That Were Not Prescribed To You? Never [email or web address] Information not available 10/06/2024 How Often In The Past Year Have You Taken Your Own Prescription Medication More Than The Way It Was Prescribed Or For Different Reasons Than Its Intended Purpose? Never [email or web address] Information no t available 10/06/2024 How Often In The Past Year Have You Used Other Drugs (for Example, Heroin, Cocaine, Meth, Salvia, Inhalants)? Never Information not available 10/06/2024 Have You Ever Used IV Drugs? Yes 10 Years Ago [email or web address] Information not available 10/06/2024 What Matters Most To You? Vision, Overall Health [email or web address] Information not available 10/06/2024 During The Past Four Weeks Has Your Physical And Emotional Health Limited Your Social Activities With Family And Friends, Neighbors, Or Groups? Moderately [email or web address] Information not available 10/06/2024 During The Past Four Weeks, Was Someone Available To Help You If You Needed And Wanted Help? (For Example, If You [place] Very Nervous, Lonely, Or Blue; Got Sick And Had To Stay In Bed; Needed Someone To Talk To; Needed Help With Daily Chores; Or Needed Help Just Taking Care Of Yourself.) Yes- Quite A Bit [email or web address] Information not available 10/06/2024 During The Past Four Weeks, What Was The Hardest Physical Activity You Could Do For At Least 2 Minutes? Heavy [email or web address] Information not available 10/06/2024 Can You Get To Places Out Of Walking Distance Without Help? (For Example, Can You Travel Alone On Buses Or Taxis, Or Drive Your Own Car?) No Information not available 10/06/2024 Can You Go Shopping For Groceries Or Clothes Without Someone? s Help? No [email or web address] Information not available 10/06/2024 Can You Prepare Your Own Meals? No [email or web address] Information not available 10/06/2024 Can You Do Your Housework Without Help? Yes [email or web address] Information not available 10/06/2024 Because Of Any Health Problems, Do You Need The Help Of Another Person With Your Personal Care Needs Such As Eating, Bathing, Dressing, Or Getting Around The House? Yes Information not available 10/06/2024 Can You Handle Your Own Money Without Help? Yes [email or web address] Information not available 10/06/2024 Are You Having Difficulties Driving Your Car? Not Applicable- I Do Not Use A Car [email or web address] Information not available 10/06/2024 How Often During The Past Four Weeks Have You Been Bothered By Any Of The Following Problems? Falling Or Dizzy When Standing Up? Often [email or web address] Information not available 10/06/2024 Sexual Problems? Never [email or web address] Informat ion not available 10/06/2024 Trouble Eating Well? Never [email or web address] Information not available 10/06/2024 Teeth Or Denture Problems? Always [email or web address] Information not available 10/06/2024 Problems Using The Telephone? Always Can't See Phone [email or web address] Information not available 10/06/2024 Tiredness Or Fatigue? Always [email or web address] Information not available 10/06/2024 Have You Had 2 Or More Falls Or Sustained An Injury With A Fall In The Last Year? Yes [email or web address] Information not available 10/06/2024 Do You Have Difficulty With Walking Or Balance? Yes [email or web address] Information not available 10/06/2024 Do You Currently Use A Hearing Device? No [email or web address] Information not available 10/06/2024 Do You Currently Have Any Trouble With Your Vision? Yes [email or web address] Information no t available 10/06/2024 Do You Exercise For About 20 Minutes Three Or More Days A Week? No- I Usually Do Not Exercise Much Information not available 10/06/2024 Are There Any Safety Concerns In Your Home (see Attached CDC Pamphlet)? Yes Stairs, Cooking [email or web address] Information not available 10/06/2024 How Often Do You Have Trouble Taking Medicines The Way You Have Been Told To Take Them? Sometimes I Take Them As Prescribed Information not available 10/06/2024 How Confident Are You That You Can Control And Manage Most Of Your Health Problems? Somewhat Confident [email or web address] Information not available 10/06/2024 Do You Currently Have Any Difficulty With Your Hearing? No [email or web address] Information not available 10/06/2024 Date Of Most Recent SBINS 10/06/2024 Information not available 10/06/2024 What Was The Date Of Your Most Recent Tobacco Screening? 10/06/2024 [email or web address] Information not available 10/06/2024 What Is Your Current Pack Years? 30ormorepacky ears Information not available 11/03/2023 At What Age Did You Start Smoking Tobacco? 14 Information not available 11/03/2023 How Much Tobacco Do You Smoke? 1 PPW Information not available 11/03/2023 Has Tobacco Cessation Counseling Been Provided? Yes Pt Declines. [email or web address] Information not available 10/06/2024 On What Date Was Tobacco Cessation Counseling Provided? 10/06/2024 Pt Just Not Ready Yet. [email or web address] Information not available 10/06/2024 How Many Years [...] Time Mother Family history of kidney disease deisy. Not available 2022 03:50:23 Mother Family history of diabetes mellitus type 1 linchingui. Not available 2022 03:50:26 Notes:*Problem: Mother: chichi [...] mL 4 completed ARMIDA HIRSCH MA null, [place] [facility] 09/01/2024 18:38:23 Influenza, split virus, trivalent, PF 4 completed BARNEY HENDERSON MD [facility] Shadi Peralta, [place], [address], [facility] 09/01/2024 16:09:15 Td (adult), 5 Lf tetanus toxoid, preservative free, adsorbed 7 completed Not Available [facility] 08/27/2023 06:21:08 Tdap 7 completed Not Available [facility] 08/27/2023 06:21:08 Novel [id number], all formulations 9 completed Not Available [facility] 08/27/2023 06:21:08 Td(adult) unspecified formulation 1 completed Not Available [facility] 08/27/2023 06:21:08 Influenza, split virus, trivalent, preservative 6 completed Not Available [facility] 08/27/2023 06:21:08 Influenza, split virus, quadrivalent, PF 2 completed Not Available [facility] 08/27/2023 06:21:08 Influenza, split virus, quadrivalent, PF 3 completed Not Available [facility] 08/27/2023 06:21:08 Influenza, split virus, quadrivalent, preservative 8 completed Not Available [facility] 08/27/2023 06:21:09 COVID-19, mRNA, LNP-S, PF, 100 mcg/0.5mL dose or 50 mcg/0.25mL dose 2 completed Not Available [facility] 08/27/2023 06:21:09 COVID-19 vaccine, vector-nr, rS-Ad26, PF, 0.5 mL 1 completed Not Available [facility] 08/27/2023 06:21:09 COVID-19, mRNA, LNP-S, bivalent, PF, 30 mcg/0.3 mL dose 3 completed Not Available [facility] 08/27/2023 06:21:09 pneumococcal polysaccharide PPV23 0 completed Not Available [facility] 08/27/2023 06:21:09 influenza, unspecified formulation 9 completed Not Available [facility] 08/27/2023 06:21:09 influenza, unspecified formulation 8 completed Not Available [facility] 08/27/2023 06:21:09 influenza, unspecified formulation 7 completed Not Available [facility] 08/27/2023 06:21:09 Influenza, split virus, quadrivalent, PF 3 completed Not Available [facility] 10/29/2023 05:31:09 Pneumococcal conjugate PCV20, polysaccharide FZI136 conjugate, adjuvant, PF 3 completed Not Available [facility] 10/29/2023 05:31:11 Past Encounters Encounter ID Performer Location Encounter Start Date Encounter Closed Date Diagnosis/Indication Diagnosis SNOMED-CT Code Diagnosis ICD10 Code [id number] ROSIBEL SALGADO RN [address] [address] 10/06/2024 12:53:21 10/06/2024 14:03:34 Adult health examination 618574761 Z00.00 Muscle weakness 69022131 M62.81 Decompensa curtis cirrhosis of liver 032861048 K74.60 Hyperlipidemia 95553879 E78.5 Chronic hepatitis C 1283 50803 B18.2 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 3309827129 0894542 J44.9 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 48051557 E11.8 Health Concerns Section Related Observation LastModified by Organization Detai ls LastModified Time None Recorded Concern Status LastModified by Organization Details LastModified Time None Recorded Payers Encounter Date Sequence Insurance Name Policy Number Policy Salmon Covered Member ID Salmon Member ID Guarantor Name 10/06/2024 2 [facility] (MEDICAID) Lea Vasquez [id number] Lea Vasquez 10/06/2024 1 [place] - [place] - [facility] (MEDICARE) Lea Vasquez [id number] Lea Vasquez Notes Date Note Type Note Provider Name and Address Organization Details Recorded Time 10/06/2024 text/html CC: Medicare wel lness visit, [...] issues with transportation, mentioning she can access [employer] and that RCT is reliable. She is open to working with the [facility] disease case manager Chari whom she met at the beginning of today's visit for the first time. Lea notes that her partner has not initiated Hepatitis C treatment, but states this is not currently a concern. She mentions that the medication affects intimacy and adds that her partner is almost 60 years old. ROSIBEL SALGADO RN [facility], [place] - [facility]. 10/06/2024 16:21:16 OBGyn Episode No OBEpisode recorded.
--- OUTSIDE RECORDS SUMMARY | 2024-10-19 21:14 | XMS_ITS | Encounter Summary ---
Author Organization [facility] Address [address] [place] [address] Care Team Providers Care Rand Cementer Name Role Phone Sharon Vargas MD Primary Care Provider [phone] Encounter Details Date Type Department Care Team (Late st Contact Info) Description 08/23/2023 Documentation Visit [facility] Endoscopy [address] [place], [place] [id number] Kain Cantu MD [facility] [address] [place] [address] Social History Tobacco Use Types Packs/Day Years Used Date Smoking Tobacco: Never Assessed Comments Unknown Sex and Gender Information Value Date Recorded Sex Assigned at Not on file Legal Sex Female 18:01 EST Gender Identity Female 01/04/2024 11:39 EDT Sexual Orientation Not on file documented as of this encounter Progress Notes * Kain Cantu MD - 08/23/2023 165 EST No show for clinic documented in this encounter Plan of Treatment Upcoming Encounters Date Type Department Care Team (Late st Contact Info) Description 10/27/2024 14:15 EST Office Visit [facility] - [place] [address] [place], [place] [address] Consuelo Nicole MD [address] [place] [phone] documented as of this encounter Visit Diagnoses Not on filedocumented in this encounter Care Teams Rand Cementer Relationship Specialty Start Date End Date Sharon Vargas MD [address] [place] [phone] PCP - General 09/09/15 documented as of this encounter
--- OUTSIDE RECORDS SUMMARY | 2024-10-19 21:14 | XMS_ITS | Encounter Summary ---
Author Organization [facility] Address [address] [place] [address] Care Team Providers Care Talent Advisor Name Role Phone Unavailable Primary Care Provider Unavailabl e Encounter Details Date Type Department Care Team (Late st Contact Info) Description 05/30/2001 Results Only [facility] conversion [address] [place] [address] Yoel Deleon MD [address] [place], [place] [address] Social History Tobacco Use Types Packs/Day Years [...] Info) Description 10/27/2024 14:15 EST Office Visit [facility] [address] [place] [address] Consuelo Nicole MD [address] [place] [address] documented as of this encounter Procedures Procedure [...] ? LEA LAMAS ? Accession #: ? [id number] ? : ? 1975 (Age: 26) ??F [...] ??Serial sections reveal a pinpoint lumen. ??Two public health representative cross sections are submitted as (A). Received in formalin labelled Lamas and right fallopian tube #2 is a cylindrical piece of ewing-pink fallopian tube which measures 1.1 cm in length and 0.6 cm in external diameter. ??Serial sections reveal a pinpoint lumen. ??Two public health representative cross sections are submitted as (B). ??(Dr. Conroy-[place])/[facility] End of Report [facility] 05/30/2001 05/30/2001 15: 59 EDT us Yoel Deleon MD PATHOLOGY ORDERABLES Final Resul t [facility] [address] [place] [address] documented in this encounter Visit Diagnoses Not on filedocumented in this encounter
--- OUTSIDE RECORDS SUMMARY | 2024-10-19 21:14 | XMS_ITS | Referral Summary ---
Author Organization [facility] Address [address] [place] [address] Care Team Providers Care Tangible Personal Property Appraiser Name Role Phone Sharon Vargas MD Primary Care Provider [phone] Encounters Date Type Department Care Team Description 10/07/2024 Lab Requisition [facility] Pathology & Laboratory [address] [address] Outr Resulting Lab, Provider 10/06/2024 Lab Requisition [facility] Pathology & Laboratory [address] [address] Outr Resulting Lab, Provider from Last 3 Months Allergies Active Allergy Reactions Criticality Noted Date [...] Info) Description 10/27/2024 14:15 EST Office Visit [facility] [address] [place] [address] Consuelo Nicole MD [address] [place] [phone] Procedures Procedure Name Priority Date/Time Associated Diagnosis Comments HCV RNA DETECT QUANT Routine 10/06/2024 14:00 EST URINE [id number] E RATIO (ACR) Routine 10/16/2015 HEMOGLOBIN A1C Routine 05/28/2014 from Last 3 Months or Most Recently Relevant to Health Maintenance Results * (ABNORMAL) HCV RNA DETECT QUANT (10/06/2024 14:00 EST) HCV RNA Qualitative Detected( A) Undetected 10/09/2024 11:37 EST [facility] HCV RNA Quantitative 2,950,000 (H) Undetected IU/mL 10/09/2024 11:37 EST [facility] Blood VENOUS BLOOD / Unknown 10/06/2024 14:00 EST 10/07/2024 22:18 EST Narrative [facility] - 10/09/2024 11:37 EST The quantification range of this assay is 15 IU/mL to 100,000,000 IU/mL. Testing was performed using the Jaron HCV test ([employer] with the jaron Floop0 System. us Provider Outr Resulting Lab CHEMISTRY & BLOOD GA S ORDERABLES Final Result [facility] [address] [place] [address] * ALBUMIN, URINE (10/16/2015) Microalb ug/mg Crea, External 312.7 [facility] Microalb mg/dl, External 84.7 [facility] Creatinine, Random U (UCRR), External 27.09 [facility] Urine specimen (specimen) 10/16/2015 Sharon Vargas MD CHEMISTRY & BLOOD GAS ORDERABL ES Edited Result - Final Performing Organization Address City/[facility]/ZIP Co de Phone Number [facility] * HEMOGLOBIN A1C (05/28/2014) Hemoglobin A1C, External 8.7 [facility] Est Avg Glucose, External [facility] Blood specimen (specimen) 05/28/2014 Sharon Vargas MD CHEMISTRY & BLOOD GAS ORDERABL ES Final Result Performing Organization Address City/[facility]/ZIP Co de Phone Number [facility] from Last 3 Months or Most Recently Relevant to Health Maintenance Insurance [place] Care Teams Tangible Personal Property Appraiser Relationship Specialty Start Date End Date Sharon Vargas MD [address] [place] [address] PCP - General 09/09/15
--- OUTSIDE RECORDS SUMMARY | 2024-10-19 21:14 | XMS_ITS | Encounter Summary ---
Author Organization [facility] Address [address] [place] [address] Care Team Providers Care Bookbinder Chief Name Role Phone Sharon Vargas MD Primary Care Provider [phone] Encounter Details Date Type Department Care Team (Late st Contact Info) Description 09/20/2023 Documentation [facility] [address] [place] [phone] Salome Myles MD [address] [place] [phone] Social History Tobacco Use Types Packs/Day Years Used Date Smoking Tobacco: Never Assessed Comments Unknown Sex and Gender Information Value Date Recorded Sex Assigned at Not on file Legal Sex Female 18:01 EST Gender Identity Female 01/04/2024 11:39 EDT Sexual Orientation Not on file documented as of this encounter Progress Notes * Salome Myles MD - 09/20/2023 1254 EST Patient called to cancel clinic visit (scheduled for 1500 today 09/20/23) due to transportation difficulties. Will call back to reschedule at another time documented in this encounter Plan of Treatment Upcoming Encounters Date Type Department Care Team (Late st Contact Info) Description 10/27/2024 14:15 EST Office Visit [facility] [address] [place] [address] Consuelo Nicole MD [address] [place] [phone] documented as of this encounter Visit Diagnoses Not on filedocumented in this encounter Care Teams Bookbinder Chief Relationship Specialty Start Date End Date Sharon Vargas MD [address] [place] [phone] PCP - General 09/09/15 documented as of this encounter
--- OUTSIDE RECORDS SUMMARY | 2024-10-19 21:14 | XMS_ITS | Encounter Summary ---
Author Organization [facility] Address [address] [place] [address] Care Team Providers Care Heater Helper Forge Name Role Phone Unavailable Primary Care Provider Unavailabl e Encounter Details Date Type Department Care Team (Late st Contact Info) Description 01/15/2000 [facility] Only [facility] [address] [place] [address] Yoel Deleon MD [address] [place], [place] [phone] Social History Tobacco Use Types Packs/Day Years [...] EST Office Visit [facility] [address] [place] [address] Consuelo Nicole MD [address] [place] [phone] documented as of this encounter Procedures Procedure [...] ? LEA MCGOWAN ? Accession #: ? [id number] : ? 1975 (Age: 25) ??F ?Collect Date: ? 01/15/2000 Location: ?Receive Date: ? 01/15/2000 Provider: ?YOEL DELEON MD Copy to: ?YOEL DELEON MD ? Specimen/Source: ?Pap Smear (One Slide) Last Menstrual Period: ? GYNECOLOGIC ??CYTOPATHOLOGY ??REPORT Name: LEA MCGOWAN ? FA : 1975 ?? 25Y F ?Client ID: [id number] SS#: [id number] ? Clinician: YOEL DELEON MD ?? Location: [facility] ??Copy to: ?? Specimen: ?Pap Smear [...] Faye, SCT(ASCP) ? Report Date: ?? 01/22/2000 [employer] Archived Tests - Final Diagnosis Text Field: Clinical History : ? Document reviewed and electronically signed by: ? Conversion ? Report Date: ??01/22/2000 00:00 End of Report [facility] 01/15/2000 13:2 4 EST 01/15/2000 13:25 EST us Yoel Deleon MD PATHOLOGY ORDERABLES Final Resul t Performing Organization Address City/State/[facility] Co de Phone Number [facility] [address] [place] [address] documented in this encounter Visit Diagnoses Not on filedocumented in this encounter
--- OUTSIDE RECORDS SUMMARY | 2024-10-19 21:14 | XMS_ITS | Encounter Summary ---
Author Organization [facility] Address [address] [place] [address] Care Team Providers Care Kickboxing Instructor Name Role Phone Sharon Vargas MD Primary Care Provider [phone] Encounter Details Date Type Department Care Team (Late st Contact Info) Description 04/01/2022 Lab Requisition [facility] Pathology & Laboratory Medicine - [facility] [address] [place] [address] Outr Resulting Lab, Provider Social History Tobacco [...] Info) Description 10/27/2024 14:15 EST Office Visit [facility] [address] [place] [address] Consuelo Nicole MD [address] [place] [address] documented as of this encounter Procedures Procedure Name Priority Date/Time Associated Diagnosis Comments GGT Routine 04/01/2022 14:29 EDT documented in this encounter Results * (ABNORMAL) GGT (04/01/2022 14:29 EDT) GGT 224(H) <44 U/L 04/01/2022 21:22 EDT [facility] Blood VENOUS BLOOD / Unknown 04/01/2022 14:29 EDT 04/01/2022 21:09 EDT us Provider Outr Resulting Lab CHEMISTRY & BLOOD GA S ORDERABLES Final Result Performing Organization Address City/State/[facility] Co de Phone Number [facility] [address] [place] [address] documented in this encounter Visit Diagnoses Not on filedocumented in this encounter Care Teams Kickboxing Instructor Relationship Specialty Start Date End Date Sharon Vargas MD [address] [place] [address] PCP - General 09/09/15 documented as of this encounter
--- OUTSIDE RECORDS SUMMARY | 2024-10-19 21:14 | XMS_ITS | Encounter Summary ---
Author Organization [facility] Address [address] [place] [address] Care Team Providers Care Hand Tufter Name Role Phone Unavailable Primary Care Provider Unavailabl e Encounter Details Date Type Department Care Team (Late st Contact Info) Description 04/29/2001 Results Only [facility] [address] [place] [address] [place] [address] Social History Tobacco Use Types Packs/Day Years [...] Office Visit [facility] [address] [place] [address] Consuelo Nicole MD [address] [place] [address] documented as of this encounter Procedures Procedure [...] Name: ? SAELEA ? Accession #: ? [id number] : ? 1975 (Age: 26) ??F ?Collect [...] electronically signed by: ? QUINCY GUALLPA MD [facility] ? Report Date: ??05/06/2001 17:41 End of Report [facility] 04/29/2001 05/04/2001 Lizbeth Wild CNM PATHOLOGY ORDERABLES Final Res ult [facility] [address] [place] [address] documented in this encounter Visit Diagnoses Not on filedocumented in this encounter
--- OUTSIDE RECORDS SUMMARY | 2024-10-19 21:14 | XMS_ITS | Encounter Summary ---
Author Organization [facility] Address [address] [place] [address] Care Team Providers Care Customer Relations Consultant Name Role Phone Sharon Vargas MD Primary Care Provider [phone] Encounter Details Date Type Department Care Team (Late st Contact Info) Description 10/06/2024 Lab Requisition [facility] Pathology & Laboratory Medicine - [facility] [address] [place] [address] Outr Resulting Lab, Provider Social History Tobacco [...] Info) Description 10/27/2024 14:15 EST Office Visit [facility] [address] [place] [address] Consuelo Nicole MD [address] [place] [address] documented as of this encounter Visit Diagnoses Not on filedocumented in this encounter Care Teams Customer Relations Consultant Relationship Specialty Start Date End Date Sharon Vargas MD [address] [facility] [place] [phone] PCP - General 09/09/15 documented as of this encounter
--- OUTSIDE RECORDS SUMMARY | 2024-10-19 21:14 | XMS_ITS | Encounter Summary ---
Author Organization [facility] Address [address] [place] [id number] Care Team Providers Care Instrument Inspector Name Role Phone Sharon Vargas MD Primary Care Provider [phone] Reason for Visit * Reason Onset Date Comments Appointment Related 11/09/2023 Encounter Details Date Type Department Care Team (Late st Contact Info) Description 11/09/2023 Telephone [facility] [address] [place], [place] [id number] Consuelo Nicole MD [address] [place] [address] [phone] Appointment Related Social History Tobacco Use Types [...] - 11/09/2023 1035 EST Unable to leave [facility] no mail box set up. Contacted primary to let them know and to have them [facility] Schedule with Dr. Nicole in 6 weeks for NPV dm exam per Dr. Nicole documented in this encounter Plan of Treatment Upcoming Encounters Date Type Department Care Team (Late st Contact Info) Description 10/27/2024 14:15 EST Office Visit [facility] [address] [place], [place] [address] Consuelo Nicole MD [address] [place] [phone] documented as of this encounter Visit Diagnoses Not on filedocumented in this encounter Care Teams Instrument Inspector Relationship Specialty Start Date End Date Sharon Vargas MD [address] [place] [phone] PCP - General 09/09/15 documented as of this encounter
--- OUTSIDE RECORDS SUMMARY | 2024-10-19 21:14 | XMS_ITS | Encounter Summary ---
Author Organization [facility] Address [address] [place] [address] Care Team Providers Care Case Management Rn Name Role Phone Sharon Vargas MD Primary Care Provider [phone] Reason for Visit * Reason Comments Eye Problem Encounter Details Date Type Department Care Team (Late st Contact Info) Description 03/16/2024 10:30 EDT Office Visit [facility] Ophthalmology - [address] [id number] Hung Harp MD [address] [facility], [address] [place] [address] Social History Tobacco Use Types [...] mg bevacizumab Route: intravitreal, Site: Right Eye [facility]: [address]-56, Lot: [id number], Expiration date: 03/17/2024 Post-op Post injection exam [...] edema, with long-term current use of insulin ([facility]) OCT, RETINA - OU - BOTH [...] [facility] Ophthalmology [address] [address] Consuelo Nicole MD [address] [place] [phone] documented as of this encounter Procedures Procedure Name Priority Date/Time Associated Diagnosis Comments OCT, RETINA - OU - BOTH EYES Routine 03/16/2024 12:13 EDT Type 2 diabetes mellitus with both eyes affected by moderate nonproliferative retinopathy and macular edema, with long-term current use of insulin ([facility]) INTRAVITREAL INJECTION, PHARMACOLOGIC AGENT - OD - RIGHT EYE Routine 03/16/2024 12:04 EDT Type 2 diabetes mellitus with both eyes affected by moderate nonproliferative retinopathy and macular edema, with long-term current use of insulin ([facility]) documented in this encounter Results * OCT, RETINA - OU - BOTH EYES (03/16/2024 12:13 EDT) Narrative [facility] OPHTHALMOLOGY - 03/16/2024 12:13 EDT Right Eye [...] Edited Result - Final Performing Organization Address [facility] de Phone Number [facility] OPHTHALMOLOGY * INTRAVITREAL INJECTION, PHARMACOLOGIC AGENT - OD - RIGHT EYE (03/16/2024 12:04 EDT) Narrative [facility] POINT OF CARE - 03/16/2024 12:13 EDT Time Out 03/16/2024. 11:56. Confirmed correct patient, procedure, site, and patient consented. Anesthesia Topical anesthesia was used. Anesthetic medications included Proparacaine 0.5%, Tetracaine 0.5%. Procedure Preparation included 5% betadine to ocular surface, eyelid speculum. A 30 gauge needle was used. Injection: 1.25 mg bevacizumab ??Route: intravitreal, Site: Right Eye ??[facility]: [address]-77, Lot: [id number], Expiration date: 03/17/2024 Post-op Post injection exam found visual acuity of at least counting fingers. The patient tolerated the procedure well. There were no complications. The patient received written and verbal post procedure care education. Post injection medications were not given. Hung Harp MD OPH CLINIC PROCEDURES Final Re sult Performing Organization Address [facility] de Phone Number [facility] POINT OF CARE documented in this encounter Visit Diagnoses Diagnosis Type 2 diabetes mellitus with both eyes affected by moderate nonproliferative retinopathy and macular edema, with long-term current use of insulin ([facility])- Primary Combined forms of age-related cataract [...] all 4 quadrants. No alireza Care Teams Case Management Rn Relationship Specialty Start Date End Date Sharon Vargas MD [address] [place] [phone] PCP - General 09/09/15 documented as of this encounter
--- OUTSIDE RECORDS SUMMARY | 2024-10-19 21:15 | XMS_ITS | Encounter Summary ---
Author Organization [facility] Address [address] [place] [address] Care Team Providers Care Pipeline Superintendent Name Role Phone Unavailable Primary Care Provider Unavailabl e Encounter Details Date Type Department Care Team (Late st Contact Info) Description 07/03/1999 11:27 EDT Hospital Encounter [facility] [address] [place] [address] [place] [phone] [facility] [place] [address] Unknown, Provider, Social History Tobacco Use Types [...] 14:15 EST Office Visit [facility] Ophthalmology [facility] [address] [place] [address] Consuelo Nicole MD [address] [place] [phone] documented as of this encounter Visit Diagnoses Not on filedocumented in this encounter
[2024-10-19 21:46] LABS: Anion Gap 8.3 mmol/L (3-11); BUN 72 mg/dL (7-18); CO2 25.7 mmol/L (21.0-32.0); Calcium 9.2 mg/dL (8.5-10.1); Chloride 108 mmol/L (98-107); Estimated GFR 8.38 (mL/min/1.73m2); Glucose 97 mg/dL (74-106); Potassium 4.8 mmol/L (3.5-5.1); Sodium 142 mmol/L (136-145)
[2024-10-19 22:08] LABS: CREATININE 5.8 mg/dL (0.55-1.02)
== END 2024-10-19 21:11 | disposition home or self-care (01) ==
LOC: NCHCN 21:10
PROVIDERS: PCP Family Medicine; Visit Provider Family Medicine
DX: N28.9 Disorder of kidney and ureter, unspecified (principal)
CPT/HCPCS: 80048

== ENCOUNTER 2024-10-20 19:16 | Outpatient (REF) | payer MEDICARE, MEDICAID, SELFPAY ==
--- OUTSIDE RECORDS SUMMARY | 2024-10-20 19:27 | XMS_ITS | Data Portability ---
Author Organization [facility] BdayMONTICELLO, [place]_[facility]_Eulogio Long Address [address] [place] [address] Assessment Encounter Date Assessment Date Assessment LastModified [...] regarding any risk of combining sedating agents. [email or web address] Not available 03/04/2022 13:28:21 03/11/2022 03/11/2022 Telemedicine [...] risk of combining sedating agents. Not available 03/11/2022 13:08:03 03/25/2022 03/25/2022 Telemedicine [...] regarding any risk of combining sedating agents. [email or web address] Not available 03/25/2022 13:50:44 04/08/2022 04/08/2022 Telemedicine [...] regarding any risk of combining sedating agents. [email or web address] Not available 04/08/2022 13:48:17 04/22/2022 04/22/2022 Telemedicine [...] recorded. Lab drug screen, urine 2021 022 [facility], [address] [place], [address], 2 11:21:44 drug screen, urine 2021 022 [facility], [address] [place], [address], 2 13:54:31 drug screen, urine 2021 022 [facility], [address] Kyle Goff [place], [address], 2 14:14:27 AST/SGOT (aspartate aminotransf erase), serum or plasma [address] (Lab), [address] [place] [address], [address], 2 11:11:26 ALT (alanine aminotransf erase), serum or plasma [address] (Lab), [address] [place] [address], [address], 2 11:11:26 gamma-gluta myl transferase (ggt), serum [address] (Lab), [address] [place] [address], [address], 2 11:11:26 drug screen, urine 2021 022 [facility], [address] Kyle Goff [place], [address], 2 09:33:11 drug screen, urine [address], [address] [place], [address], 2 10:28:58 Referral None recorded. Procedures None recorded. Surgeries None recorded. Imaging None recorded. Medication Orders Suboxone 8 mg-2 mg sublingual film 2021 022 KTAHE Not available 13:27:34 Suboxone 2 mg-0.5 mg sublingual film 2021 KATHE Not available 13:27:35 Suboxone 8 mg-2 mg sublingual film 2021 022 AKTHE Not available 13:08:08 Suboxone 2 mg-0.5 mg [...] vaughn by GINO Vitaliy FRIEDMAN Not Available [address] [address] [place], [address], 02/20/2022 11:43:53 02/19/2008 0302/18/2022 BUPRE NORPH INE PT SCREE MONIKA benzodiazapi olivia Negati ve NG/mL 200 Not Available [facility] [place], [address], 02/20/2022 11:43:53 02/19/20 22 02/18/2022 BUPRE NORPH INE PT SCREE MONIKA buprenorphin e Positi ve NG/mL 5 Not Available [address] [address] [place], [address], 02/20/2022 11:43:53 02/19/20 22 02/18/2022 BUPRE NORPH INE PT SCREE MONIKA cocaine metabolite Negati ve NG/mL 150 Not Available [address] [address] [place], [address], 02/20/2022 11:43:53 02/19/20 22 02/18/2022 BUPRE NORPH INE PT SCREE MONIKA opiates Negati ve NG/mL 300 Not Available [facility], [address], 02/20/2022 11:43:53 02/19/20 22 02/18/2022 BUPRE NORPH INE PT SCREE MONIKA oxycodone Negati ve NG/mL 300 Not Available [address] [address] [place], [address], 02/20/2022 11:43:53 02/19/20 22 02/18/2022 BUPRE NORPH INE PT SCREE MONIKA fentanyl Negati ve NG/mL 2 Not Available [address] [address] [place], [address], 02/20/2022 11:43:53 02/19/20 22 02/18/2022 BUPRE NORPH INE PT SCREE MONIKA ethyl alcohol Negati ve mg/dL 10 Not Available [facility], [address], 02/20/2022 11:43:53 02/19/20 22 02/18/2022 BUPRE NORPH INE PT SCREE MONIKA methadone metabolite Negati ve NG/mL 300 Not Available [facility] [place], [address], 02/20/2022 11:43:53 02/19/20 22 02/18/2022 BUPRE NORPH INE PT SCREE MONIKA cannabinoids (THC) Negati ve NG/mL 50 Not Available [facility], [address], 02/20/2022 11:43:53 02/19/20 22 02/18/2022 BUPRE NORPH INE PT SCREE MONIKA urine creatinine 138.4 mg/dL >20 Not Available [address] [address] [place], [address], 02/20/2022 11:43:53 02/19/20 22 02/18/2022 BUPRE NORPH INE PT SCREE MONIKA urine pH 5.60 4.5-9. 0 Not Available [address] [address] [place], [address], 02/20/2022 11:43:53 02/19/20 22 02/18/2022 BUPRE NORPH INE PT SCREE MONIKA specific gravity 1.019 1.003- 1.035 Not Available [address] [address] [place], [address], 02/20/2022 11:43:53 02/19/20 22 02/18/2022 PRESC RIBED DRUG CONFI RMATI ON BUPRE NORPH INE 1, QN, U buprenorphin e 155.3 NG/mL 10 Gerda vaughn by GINO STARK FRIEDMAN Not Available [address] [address] [place], [address], 02/24/2022 13:27:22 02/19/20 22 02/18/2022 PRESC RIBED DRUG CONFI RMATI ON BUPRE NORPH INE 1, QN, U norbuprenorp sebastián 191.7 NG/mL 10 Not Available [address] [address] [place], [address], 02/24/2022 13:27:22 02/19/20 22 02/18/2022 PRES RIBED DRUG CONFI RMATI ON BUPRE NORPH INE 1, QN, U legend Abbrev iation s LOW - Detec francis but unqua ntifi able OLR - Outsi de of linea r range ATR - Addit ional Testi ng Requi red Not Available [address] [address] [place], [address], 02/24/2022 13:27:22 02/19/20 22 02/18/2022 [facility] RIBED DRUG CONFI RMATI ON BUPRE NORPH INE 1, QN, U billing only ([id number]) Billin g Only Not Available [facility], [address], 02/24/2022 13:27:22 02/26/20 22 02/25/2022 BUPRE NORPH INE PT SCREE MONIKA amphetamines Negati ve NG/mL 1,000 Gerda olivo d by GINO STARK [employer] Not Available [address] [address] [place], [address], 02/26/2022 12:36:27 02/26/20 22 02/25/2022 BUPRE NORPH INE PT SCREE MONIKA benzodiazapi olivia Negati ve NG/mL 200 Not Available [facility], [address], 02/26/2022 12:36:27 02/26/20 22 02/25/2022 BUPRE NORPH INE PT SCREE MONIKA buprenorphin e Positi ve NG/mL 5 Not Available [facility], [address], 02/26/2022 12:36:27 02/26/20 22 02/25/2022 BUPRE NORPH INE PT SCREE MONIKA cocaine metabolite Negati ve NG/mL 150 Not Available [facility], [address], 02/26/2022 12:36:27 02/26/20 22 02/25/2022 BUPRE NORPH INE PT SCREE MONIKA opiates Negati ve NG/mL 300 Not Available [facility], [address], 02/26/2022 12:36:27 02/26/20 22 02/25/2022 BUPRE NORPH INE PT SCREE MONIKA oxycodone Negati ve NG/mL 300 Not Available [facility], [address], 02/26/2022 12:36:27 02/26/20 22 02/25/2022 BUPRE NORPH INE PT SCREE MONIKA fentanyl Negati ve NG/mL 2 Not Available [facility], [address], 02/26/2022 12:36:27 02/26/20 22 02/25/2022 BUPRE NORPH INE PT SCREE MONIKA ethyl alcohol Negati ve mg/dL 10 Not Available [facility], [address], 02/26/2022 12:36:27 02/26/20 22 02/25/2022 BUPRE NORPH INE PT SCREE MONIKA methadone metabolite Negati ve NG/mL 300 Not Available [facility], [address], 02/26/2022 12:36:27 02/26/20 22 02/25/2022 BUPRE NORPH INE PT SCREE MONIKA cannabinoids (THC) Negati ve NG/mL 50 Not Available [facility], [address], 02/26/2022 12:36:27 02/26/20 22 02/25/2022 BUPRE NORPH INE PT SCREE MONIKA urine creatinine 101.1 mg/dL >20 Not Available [address] [address] [place], [address], 02/26/2022 12:36:27 02/26/20 22 02/25/2022 BUPRE NORPH INE PT SCREE MONIKA urine pH 5.30 4.5-9. 0 Not Available [address] [address] [place], [address], 02/26/2022 12:36:27 02/26/20 22 02/25/2022 BUPRE NORPH INE PT SCREE MONIKA specific gravity 1.014 1.003- 1.035 Not Available [address] [address] [place], [address], 02/26/2022 12:36:27 03/04/20 22 03/04/2022 BUPRE NORPH INE PT SCREE MONIKA amphetamines Negati ve NG/mL 1,000 [facility] baron olivo d by [facility] [place] Not Available [address] [address] [place], [address], 03/05/2022 11:21:44 03/04/20 22 03/04/2022 BUPRE NORPH INE PT SCREE MONIKA benzodiazapi olivia Negati ve NG/mL 200 Not Available [facility], [address], 03/05/2022 11:21:44 03/04/20 22 03/04/2022 BUPRE NORPH INE PT SCREE MONIKA buprenorphin e Positi ve NG/mL 5 Not Available [facility], [address], 03/05/2022 11:21:44 03/04/20 22 03/04/2022 BUPRE NORPH INE PT SCREE MONIKA cocaine metabolite Negati ve NG/mL 150 Not Available [facility], [address], 03/05/2022 11:21:44 03/04/20 22 03/04/2022 BUPRE NORPH INE PT SCREE MONIKA opiates Negati ve NG/mL 300 Not Available [facility], [address], 03/05/2022 11:21:44 03/04/20 22 03/04/2022 BUPRE NORPH INE PT SCREE MONIKA oxycodone Negati ve NG/mL 300 Not Available [facility], [address], 03/05/2022 11:21:44 03/04/20 22 03/04/2022 BUPRE NORPH INE PT SCREE MONIKA fentanyl Negati ve NG/mL 2 Not Available [facility], [address], 03/05/2022 11:21:44 03/04/20 22 03/04/2022 BUPRE NORPH INE PT SCREE MONIKA ethyl alcohol Negati ve mg/dL 10 Not Available [facility], [address], 03/05/2022 11:21:44 03/04/20 22 03/04/2022 BUPRE NORPH INE PT SCREE MONIKA methadone metabolite Negati ve NG/mL 300 Not Available [facility], [address], 03/05/2022 11:21:44 03/04/20 22 03/04/2022 BUPRE NORPH INE PT SCREE MONIKA cannabinoids (THC) Negati ve NG/mL 50 Not Available [facility], [address], 03/05/2022 11:21:44 03/04/20 22 03/04/2022 BUPRE NORPH INE PT SCREE MONIKA urine creatinine 40.7 mg/dL >20 Not Available [address] [address] [place], [address], 03/05/2022 11:21:44 03/04/20 22 03/04/2022 BUPRE NORPH INE PT SCREE MONIKA urine pH 5.80 4.5-9. 0 Not Available [address] [address] [place], [address], 03/05/2022 11:21:44 03/04/20 22 03/04/2022 BUPRE NORPH INE PT SCREE MONIKA specific gravity 1.009 1.003- 1.035 Not Available [address] [address] [place], [address], 03/05/2022 11:21:44 03/11/20 22 03/11/2022 BUPRE NORPH INE PT SCREE MONIKA amphetamines Negati ve NG/mL 1,000 [facility] baron vaughn by [facility] [place] Not Available [address] [address] [place], [address], 03/12/2022 13:54:31 03/11/20 22 03/11/2022 BUPRE NORPH INE PT SCREE MONIKA benzodiazapi olivia Negati ve NG/mL 200 Not Available [facility], [address], 03/12/2022 13:54:31 03/11/20 22 03/11/2022 BUPRE NORPH INE PT SCREE MONIKA buprenorphin e Positi ve NG/mL 5 Not Available [facility], [address], 03/12/2022 13:54:31 03/11/20 22 03/11/2022 BUPRE NORPH INE PT SCREE MONIKA cocaine metabolite Negati ve NG/mL 150 Not Available [facility] [address] [place], [address], 03/12/2022 13:54:31 03/11/20 22 03/11/2022 BUPRE NORPH INE PT SCREE MONIKA opiates Positi ve NG/mL 300 abnormal Not Available [address] [address] [place], [address], 03/12/2022 13:54:31 03/11/20 22 03/11/2022 BUPRE NORPH INE PT SCREE MONIKA oxycodone Negati ve NG/mL 300 Not Available [address] [address] [place], [address], 03/12/2022 13:54:31 03/11/20 22 03/11/2022 BUPRE NORPH INE PT SCREE MONIKA fentanyl Negati ve NG/mL 2 Not Available [address] [address] [place], [address], 03/12/2022 13:54:31 03/11/20 22 03/11/2022 BUPRE NORPH INE PT SCREE MONIKA ethyl alcohol Negati ve mg/dL 10 Not Available [address] [address] [place], [address], 03/12/2022 13:54:31 03/11/20 22 03/11/2022 BUPRE NORPH INE PT SCREE MONIKA methadone metabolite Negati ve NG/mL 300 Not Available [address] [address] [place], [address], 03/12/2022 13:54:31 03/11/20 22 03/11/2022 BUPRE NORPH INE PT SCREE MONIKA cannabinoids (THC) Negati ve NG/mL 50 Not Available [address] [address] [place], [address], 03/12/2022 13:54:31 03/11/20 22 03/11/2022 BUPRE NORPH INE PT SCREE MONIKA urine creatinine 55.1 mg/dL >20 Not Available [address] [address] [place], [address], 03/12/2022 13:54:31 03/11/20 22 03/11/2022 BUPRE NORPH INE PT SCREE MONIKA urine pH 5.50 4.5-9. 0 Not Available [address] [address] [place], [address], 03/12/2022 13:54:31 03/11/20 22 03/11/2022 BUPRE NORPH INE PT SCREE MONIKA specific gravity 1.008 1.003- 1.035 Not Available [address] [place] [address] [place], [address], 03/12/2022 13:54:31 03/11/20 22 03/11/2022 ADMIT FRANCIS OPIAT ES USE admitted opiates use NTP Elect baron vaughn by [facility] [place] No Testi ng Perfo rmed Not Available [address] [address] [place], [address], 03/17/2022 07:29:46 03/25/20 22 03/25/2022 BUPRE NORPH INE PT SCREE MONIKA amphetamines Negati ve NG/mL 1,000 Elect baron olivo d by [facility] [place] Not Available [address] [place] [address] [place], [address], 03/26/2022 14:14:27 03/25/20 22 03/25/2022 BUPRE NORPH INE PT SCREE MONIKA benzodiazapi olivia Negati ve NG/mL 200 Not Available [facility], [address], 03/26/2022 14:14:27 03/25/20 22 03/25/2022 BUPRE NORPH INE PT SCREE MONIKA buprenorphin e Positi ve NG/mL 5 Not Available [facility] [address] [place], [address], 03/26/2022 14:14:27 03/25/20 22 03/25/2022 BUPRE NORPH INE PT SCREE MONIKA cocaine metabolite Negati ve NG/mL 150 Not Available [facility], [address], 03/26/2022 14:14:27 03/25/20 22 03/25/2022 BUPRE NORPH INE PT SCREE MONIKA opiates Negati ve NG/mL 300 Not Available [address] [address] [place], [address], 03/26/2022 14:14:27 03/25/20 22 03/25/2022 BUPRE NORPH INE PT SCREE MONIKA oxycodone Negati ve NG/mL 300 Not Available [facility], [address], 03/26/2022 14:14:27 03/25/20 22 03/25/2022 BUPRE NORPH INE PT SCREE MONIKA fentanyl Negati ve NG/mL 2 Not Available [address] [address] [place], [address], 03/26/2022 14:14:27 03/25/20 22 03/25/2022 BUPRE NORPH INE PT SCREE MONIKA ethyl alcohol Negati ve mg/dL 10 Not Available [facility], [address], 03/26/2022 14:14:27 03/25/20 22 03/25/2022 BUPRE NORPH INE PT SCREE MONIKA methadone metabolite Negati ve NG/mL 300 Not Available [address] [address] [place], [address], 03/26/2022 14:14:27 03/25/20 22 03/25/2022 BUPRE NORPH INE PT SCREE MONIKA cannabinoids (THC) Negati ve NG/mL 50 Not Available [address] [address] [place], [address], 03/26/2022 14:14:27 03/25/20 22 03/25/2022 BUPRE NORPH INE PT SCREE MONIKA urine creatinine 72.8 mg/dL >20 Not Available [address] [address] [place], [address], 03/26/2022 14:14:27 03/25/20 22 03/25/2022 BUPRE NORPH INE PT SCREE MONIKA urine pH 5.20 4.5-9. 0 Not Available [address] [place] [address] [place], [address], 03/26/2022 14:14:27 03/25/20 22 03/25/2022 BUPRE NORPH INE PT SCREE MONIKA specific gravity 1.016 1.003- 1.035 Not Available [address] [place] [address] [place], [address], 03/26/2022 14:14:27 03/25/20 22 03/25/2022 PRESC RIBED DRUG CONFI RMATI ON BUPRE NORPH INE 1, QN, U buprenorphin e 31.0 NG/mL 10 Elect baron olivo d by [facility] [place] Not Available [address] [place] [address] [place], [address], 03/31/2022 06:31:56 03/25/20 22 03/25/2022 PRESC RIBED DRUG CONFI RMATI ON BUPRE NORPH INE 1, QN, U norbuprenorp sebastián 168.7 NG/mL 10 Not Available [address] [place] [address] [place], [address], 03/31/2022 06:31:56 03/25/20 22 03/25/2022 PRESC RIBED DRUG CONFI RMATI ON BUPRE NORPH INE 1, QN, U legend Abbrev iation s LOW - Detec francis but unqua ntifi able OLR - Outsi de of linea r range ATR - Addit ional Testi ng Requi red Not Available [address] [place] [address] [place], [address], 03/31/2022 06:31:56 03/25/20 22 03/25/2022 [facility] RIBED DRUG CONFI RMATI ON BUPRE NORPH INE 1, QN, U billing only ([id number]) Billin g Only Not Available [facility] [place], [address], 03/31/2022 06:31:56 04/08/20 22 04/08/2022 BUPRE NORPH INE PT SCREE MONIKA amphetamines Negati ve NG/mL 1,000 Elect baron olivo d by [facility] [place] Not Available [address] [place] [address] [place], [address], 04/13/2022 09:33:11 04/08/20 22 04/08/2022 BUPRE NORPH INE PT SCREE MONIKA benzodiazapi olivia Negati ve NG/mL 200 Not Available [facility], [address], 04/13/2022 09:33:11 04/08/20 22 04/08/2022 BUPRE NORPH INE PT SCREE MONIKA buprenorphin e Positi ve NG/mL 5 Not Available [facility] [place], [address], 04/13/2022 09:33:11 04/08/20 22 04/08/2022 BUPRE NORPH INE PT SCREE MONIKA cocaine metabolite Negati ve NG/mL 150 Not Available [facility] [place], [address], 04/13/2022 09:33:11 04/08/20 22 04/08/2022 BUPRE NORPH INE PT SCREE MONIKA opiates Negati ve NG/mL 300 Not Available [facility], [address], 04/13/2022 09:33:11 04/08/20 22 04/08/2022 BUPRE NORPH INE PT SCREE MONIKA oxycodone Negati ve NG/mL 300 Not Available [address] [address] [place], [address], 04/13/2022 09:33:11 04/08/20 22 04/08/2022 BUPRE NORPH INE PT SCREE MONIKA fentanyl Positi ve NG/mL 2 abnormal Not Available [address] [address] [place], [address], 04/13/2022 09:33:11 04/08/20 22 04/08/2022 BUPRE NORPH INE PT SCREE MONIKA ethyl alcohol Positi ve mg/dL 10 abnormal Not Available [address] [address] [place], [address], 04/13/2022 09:33:11 04/08/20 22 04/08/2022 BUPRE NORPH INE PT SCREE MONIKA methadone metabolite Negati ve NG/mL 300 Not Available [address] [place] [address] [place], [address], 04/13/2022 09:33:11 04/08/20 22 04/08/2022 BUPRE NORPH INE PT SCREE MONIKA cannabinoids (THC) Negati ve NG/mL 50 Not Available [address] [address] [place], [address], 04/13/2022 09:33:11 04/08/20 22 04/08/2022 BUPRE NORPH INE PT SCREE MONIKA urine creatinine 42.7 mg/dL >20 Not Available [address] [address] [place], [address], 04/13/2022 09:33:11 04/08/20 22 04/08/2022 BUPRE NORPH INE PT SCREE MONIKA urine pH 4.10 4.5-9. 0 low Not Available [address] [place] [address] [place], [address], 04/13/2022 09:33:11 04/08/20 22 04/08/2022 BUPRE NORPH INE PT SCREE MONIKA specific gravity 1.035 1.003- 1.035 Not Available [address] [place] [address] [place], [address], 04/13/2022 09:33:11 04/08/20 22 04/08/2022 OPIAT E W/ FENTA NYL 6-acetylmorp sebastián Negati ve NG/mL 10 Elect baron olivo d by [facility] Not Available [address] [place] [address] [place], [address], 04/16/2022 09:49:50 04/08/20 22 04/08/2022 OPIAT E W/ FENTA NYL codeine Negati ve NG/mL 50 Not Available [facility], [address], 04/16/2022 09:49:50 04/08/20 22 04/08/2022 OPIAT E W/ FENTA NYL hydrocodone Negati ve NG/mL 50 Not Available [facility], [address], 04/16/2022 09:49:50 04/08/20 22 04/08/2022 OPIAT E W/ FENTA NYL hydromorphon e Negati ve NG/mL 50 Not Available [facility], [address], 04/16/2022 09:49:50 04/08/20 22 04/08/2022 OPIAT E W/ FENTA NYL morphine Negati ve NG/mL 50 Not Available [facility], [address], 04/16/2022 09:49:50 04/08/20 22 04/08/2022 OPIAT E W/ FENTA NYL norhydrocodo ne Negati ve NG/mL 100 Not Available [facility] [place], [address], 04/16/2022 09:49:50 04/08/20 22 04/08/2022 OPIAT E W/ FENTA NYL fentanyl Negati ve NG/mL 20 Not Available [address] [place] [address] Kyle Goff [place], [address], 04/16/2022 09:49:50 04/08/20 22 04/08/2022 OPIAT E W/ FENTA NYL norfentanyl Negati ve NG/mL 20 Not Available [address] [place] [address] Kyle Goff [place], [address], 04/16/2022 09:49:50 04/08/20 22 04/08/2022 OPIAT E W/ FENTA NYL tramadol Negati ve NG/mL 100 Not Available [address] [place] [address] [place], [address], 04/16/2022 09:49:50 04/08/20 22 04/08/2022 OPIAT E W/ FENTA NYL legend Abbrev iation s OLR - Outsi de of linea r range Not Available [address] [place] [address] [place], [address], 04/16/2022 09:49:50 04/08/20 22 04/08/2022 OPIAT E W/ FENTA NYL billing only ([id number]) Billin g Only Not Available [address] [place] [address] [place], [address], 04/16/2022 09:49:50 Result Notes None recorded. Problems Name Problem SNOMED Code Status Onset Date Resolution Date Notes Provider Name and Address Organization Details Recorded Time Knee joint valgus deformity 481551366 Active 2020 on disability Not Available [facility] 05:31:38 Depressiv e disorder 17823027 Active 2020 on disability Not Available [facility] 05:31:38 Type 2 diabetes mellitus 38302577 Active 2020 Not Available [facility] 05:31:38 Essential hypertens ion 49674555 Active 2020 Not Available [facility] 05:31:38 Opioid dependenc e 11960159 Active 2021 Mary Carmen Friedman NP [address] [place], [address] , [facility] 2 09:46:10 Restless legs 07769928 Active 2021 Mary Carmen Friedman NP [address] [place], [address] , [facility] 2 13:15:26 Adhesive capsuliti s of shoulder 378042148 Active 2021 Mary Carmen Friedman NP [address] [place] [address], [place], [address] , [facility] 2 13:08:29 Viral hepatitis C 32213226 Active 2021 Mary Carmen Friedman NP [address] [place] [address], [place], [address] , [facility] 2 13:44:29 Problem Notes None recorded. Procedures Surgical History Date Name Laterality Status Provider Name and Address Organization Details Recorded Time 04/22/2022 84880, G0480, G0481 completed [facility] 04/22/2022 09:42:02 02/25/2022 49099, G0480, G0481 completed [facility] 02/25/2022 13:24:56 10/22/2021 13841, G0480, G0481 completed Mary Carmen Friedman NP [address] [place] [address], [phone], [facility] 10/22/2021 09:03:24 Imaging Results None recorded. Procedure Notes None recorded. Medical Equipment None Reported. Allergies Allergen ID Allergen Name Allergen Category Reaction Reaction Severity Criticality Documentation Date Start Date Code Code System Note Provider Name and Address Organization Details Recorded Time 2445 lisinopri l medicatio n cough Not available Not available 10/17/2021 12566 RxNorm Not Available [facility] 06:25:20 2454 codeine medicatio n cough Not available Not available 10/17/2021 2670 RxNorm Not Available [facility] 06:25:20 Medications Name Sig Start Date Stop [...] % 92 % 162 mm[Hg] 82 mm[Hg] [facility] [email or web address] 2 13:21:14 Date Recorded Body height Body temperature Heart rate Oxygen saturation Oxygen saturation in Arterial blood by Pulse oximetry Systolic blood pressure Diastolic blood pressure Provider Name and Address Organization Details Last Updated DateTime 2 157.48 cm 96.9 [degF] 90 /min 91 % 91 % 162 mm[Hg] 82 mm[Hg] [facility] [employer] 2 12:48:42 Date Recorded Body height Body temperature Heart rate Oxygen saturation Oxygen saturation in Arterial blood by Pulse oximetry Systolic blood pressure Diastolic blood pressure Provider Name and Address Organization Details Last Updated DateTime 2 157.48 cm 96.4 [degF] 106 /min 94 % 94 % 148 mm[Hg] 78 mm[Hg] [facility] 13:[facility]08 Date Recorded Body height Body temperature Heart rate Oxygen saturation Oxygen saturation in Arterial blood by Pulse oximetry Systolic blood pressure Diastolic blood pressure Provider Name and Address Organization Details Last Updated DateTime 2 157.48 cm 96.6 [degF] 83 /min 99 % 99 % 172 mm[Hg] 98 mm[Hg] [facility] 2 13:36:37 Date Recorded Body height Body temperature Heart rate Oxygen saturation Oxygen saturation in Arterial blood by Pulse oximetry Systolic blood pressure Diastolic blood pressure Provider Name and Address Organization Details Last Updated DateTime 2 157.48 cm 96.4 [degF] 100 /min 97 % 97 % 162 mm[Hg] 82 mm[Hg] [facility] 2 09:43:47 Social History Question Answer Notes [...] 12/16/2021 *Primary Care Provider Yes Dr. Vargas [facility] Information not available 12/16/2021 *Other Medical [...] Diagnosis/Indication Diagnosis SNOMED-CT Code Diagnosis ICD10 Code [id number] [facility] [address] [facility],[address] [place] [address] 08/26/2021 00:00:00 08/26/2021 14:18:42 [id number] [facility] [address] [facility],[address] [place] [address] 08/19/2021 00:00:00 08/19/2021 14:43:24 [id number] [facility] [address] [facility],[address] [place] [address] 09/24/2021 00:00:00 09/24/2021 13:42:39 [id number] [facility] [address] [facility],[address] [place] [address] 09/17/2021 00:00:00 09/17/2021 14:33:56 [id number] [facility] [address] [facility],[address] [place] [address] 10/01/2021 00:00:00 10/01/2021 13:55:43 [id number] [facility] [address] [facility],[address] [place] [address] 09/02/2021 00:00:00 09/02/2021 13:36:53 [id number] [facility] [address] [facility],[address] [place] [address] 10/15/2021 00:00:00 10/15/2021 10:49:59 [id number] [facility], UNDERCOVER AGENT [facility] [address] [facility],[address] [place] [address] 10/22/2021 13:32:17 10/22/2021 13:53:31 Opioid dependence 14289512 F11.20 Essential hypertension 40454774 I10 [id number] [facility], UNDERCOVER AGENT [facility] [address] [facility],[address] [place] [address] 11/05/2021 13:31:36 11/05/2021 14:04:00 Opioid dependence 09380094 F11.20 [id number] [facility], UNDERCOVER AGENT [facility] [address] [facility],[address] [place] [address] 11/12/2021 13:32:01 11/12/2021 13:50:44 Opioid dependence 25802046 F11.20 [id number] [facility], UNDERCOVER AGENT [facility] [address] [facility],[address] [place] [address] 11/19/2021 13:28:46 11/19/2021 13:50:12 Opioid dependence 48535516 F11.20 [id number] [facility], UNDERCOVER AGENT [facility] [address] [facility],[address] [place] [address] 11/26/2021 13:22:00 11/26/2021 13:33:43 Opioid dependence 86731071 F11.20 [id number] [facility], UNDERCOVER AGENT [facility] [address] [facility],[address] [place] [address] 12/10/2021 13:24:47 12/10/2021 13:41:04 Opioid dependence 97339931 F11.20 [id number] [facility], UNDERCOVER AGENT [facility] [address] [facility],[address] [place] [address] 12/24/2021 13:20:13 12/24/2021 13:37:31 Opioid dependence 68404186 F11.20 [id number] [facility], UNDERCOVER AGENT [facility] [address] [facility],[address] [place] [address] 12/31/2021 12:59:42 12/31/2021 13:20:07 Opioid dependence 40091836 F11.20 Restless legs 04970596 G 25.81 [id number] [facility], UNDERCOVER AGENT [facility] [address] [facility],[address] [place] [address] 01/07/2022 10:17:53 01/07/2022 10:44:51 Opioid dependence 99017022 F11.20 [id number] [facility], UNDERCOVER AGENT [facility] [address] [facility],[address] [place] [address] 02/18/2022 13:27:58 02/18/2022 13:45:49 Opioid dependence 55104227 F11.20 [id number] [facility], UNDERCOVER AGENT [facility] [address] [facility],[address] [place] [address] 01/21/2022 13:13:05 01/21/2022 13:28:10 Opioid dependence 93973292 F11.20 [id number] [facility], UNDERCOVER AGENT [facility] [address] [facility],[address] [place] [address] 01/28/2022 13:19:31 01/28/2022 13:28:05 Opioid dependence 61346620 F11.20 [id number] [facility], UNDERCOVER AGENT [facility] [address] [facility],[address] [place] [address] 02/25/2022 13:21:54 02/25/2022 13:40:25 Opioid dependence 49853469 F11.20 [id number] [facility], UNDERCOVER AGENT [facility] [address] [facility],[address] [place] [address] 03/04/2022 13:13:48 03/04/2022 13:29:11 Opioid dependence 36684491 F11.20 [id number] [facility], UNDERCOVER AGENT [facility] [address] [facility],[address] [place] [address] 03/11/2022 12:45:57 03/11/2022 13:10:12 Opioid dependence 99035640 F11.20 [id number] [facility], UNDERCOVER AGENT [facility] [address] [facility],[address] [place] [address] 03/25/2022 13:36:46 03/25/2022 13:50:49 Opioid dependence 88861259 F11.20 [id number] [facility], UNDERCOVER AGENT [facility] [address] [place] [address],[address] [place] [address] 04/08/2022 13:25:18 04/08/2022 13:47:59 Opioid dependence 78560405 F11.20 [id number] Delma Green, UNDERCOVER AGENT [facility] [address] [place] [address],[address] [place] [address] 04/22/2022 09:39:24 04/22/2022 10:01:13 Opioid dependence 54606596 F11.20 [id number] Dee Thompson [facility] [place] [address] [place] [address],[address] [place] [address] 05/06/2022 11:21:43 05/06/2022 13:21:21 [id number] Dee Thompson [facility] [place] [address] [place] [address],[address] [place] [address] 05/18/2022 08:54:48 05/18/2022 08:59:21 [id number] Dee Thompson [facility] [address] [place] [address] 05/20/2022 11:29:21 05/20/2022 11:32:37 [id number] Dee Thompson [facility] [place] [address] [facility], [address] [place] [address] 06/16/2022 13:49:39 06/16/2022 13:54:40 Health Concerns Section Related Observation LastModified by Organization Detai ls LastModified Time None Recorded Concern Status LastModified by Organization Details LastModified Time None Recorded Advance Directives Directive None Recorded Payers Encounter Date Sequence Insurance Name Policy Number Policy Salmon Covered Member ID Salmon Member ID Guarantor Name 03/04/2022 2 [facility] (MEDICAID) Lea Vasquez [id number] Lea Vasquez 03/04/2022 1 [facility] (MEDICARE REPLACEMENT/A DVANTAGE - PPO) [id number] Lea Vasquez [id number] Lea Vasquez 03/11/2022 2 [facility] (MEDICAID) Lea Vasquez [id number] Lea Vasquez 03/11/2022 1 [facility] (MEDICARE REPLACEMENT/A DVANTAGE - PPO) [id number] Lea Vasquez [id number] Lea Vasquez 03/25/2022 2 [facility] (MEDICAID) Lea Vasquez [id number] Lea Vasquez 03/25/2022 1 [facility] (MEDICARE REPLACEMENT/A DVANTAGE - PPO) [id number] Lea Vasquez [id number] Lea Vasquez 04/08/2022 2 [facility] (MEDICAID) Lea Vasquez [id number] Lea Vasquez 04/08/2022 1 [facility] (MEDICARE REPLACEMENT/A DVANTAGE - PPO) [id number] Lea Vasquez [id number] Lea Vasquez 04/22/2022 2 [facility] (MEDICAID) Lea Vasquez [id number] Lea Vasquez 04/22/2022 1 [facility] (MEDICARE REPLACEMENT/A DVANTAGE - PPO) [id number] Lea Vasquez [id number] Lea Vasquez Notes Date Note Type Note Provider Name and Address Organization Details Recorded Time 03/04/2022 text/html This patient is here today for their follow-up MAT visit. They are being treated for OUD with buprenorphine PLEASE SEE A & P SECTION FOR FULL VISIT NOTE Mary Carmen Friedman NP [address] [place] [address], [phone], [facility] 03/04/2022 14:00:30 03/11/2022 text/html This patient is here today for their follow-up MAT visit. They are being treated for OUD with buprenorphine PLEASE SEE A & P SECTION FOR FULL VISIT NOTE Mary Carmen Friedman NP [address] [place], [address], [facility] 03/11/2022 13:32:58 03/25/2022 text/html This patient is here today for their follow-up MAT visit. They are being treated for OUD with buprenorphine PLEASE SEE A & P SECTION FOR FULL VISIT NOTE Mary Carmen Friedman NP [address] [place], [address], [facility] 03/25/2022 14:12:31 04/08/2022 text/html This patient is here today for their follow-up MAT visit. They are being treated for OUD with buprenorphine PLEASE SEE A & P SECTION FOR FULL VISIT NOTE Mary Carmen Friedman NP [address] [place], [address], [facility] 04/08/2022 13:57:35 04/22/2022 text/html This patient is here today for their follow-up MAT visit. They are being treated for OUD with buprenorphine. PLEASE SEE A & P SECTION FOR FULL VISIT NOTE Delma Green NP [address] [place], [address], [facility] 04/22/2022 10:07:31 OBGyn Episode No OBEpisode recorded.
--- OUTSIDE RECORDS SUMMARY | 2024-10-20 19:27 | XMS_ITS | Encounter Summary ---
Author Organization [facility] [place] [address] Care Team Providers Care Rail Gang Supervisor Name Role Phone Penny Javed APRN Primary Care Provider + Encounter Details Date Type Department Care Team (Late st Contact Info) Description 10/07/2024 Interpretation Only [facility] in [facility] [address] [place] [address] Elmer Vaz Jr., MD [address] [place] [address] Social History Tobacco Use Types [...] PM EST) PT CLASS E RAD ADMITDTTM [id number] RAD PT RAD INFO [id number]^HUSEYIN ^ELMER^Cheli RAD EXAM DESC CTAPWO^CT ABD PELVIS WO IV OR ORAL CONTRAST^RIS [facility] WORKSTATION ID [id number] [facility] Anatomical Region Laterality Modality Abdomen, Pelvis Computed [...] who have questions please contact the health insurance healthcare consultant that requested your imaging first. ? Narrative [...] patients who have questions please contactthe health insurance healthcare consultant that requested your imaging first. Elmer Vaz Jr., MD IMG CT ORDERABLE S documented in this encounter Visit Diagnoses Not on filedocumented in this encounter Care Teams Rail Gang Supervisor Relationship Specialty Start Date End Date Penny Javed, CORNELIA PCP - General 09/09/10 documented as of this encounter
--- OUTSIDE RECORDS SUMMARY | 2024-10-20 19:27 | XMS_ITS | Clinical Summary ---
Author Organization [facility] [place] [address] Care Team Providers Care Art Sales Consultant Name Role Phone Penny Javed APRN Primary Care Provider + Encounters Date Type Department Care Team Description 10/07/2024 Interpretation Only [facility] in [address] [address] Elmer Vaz Jr., MD from [...] (10/07/2024 2:31 PM EST) PT CLASS E [facility] ADMITDTTM [id number] [facility] PT [facility] INFO [id number]^HUSEYIN ^ELMER^J [facility] EXAM DESC CTAPWO^CT ABD PELVIS WO IV OR ORAL CONTRAST^RIS [facility] WORKSTATION ID [id number] [facility] Anatomical Region Laterality Modality Abdomen, Pelvis Computed [...] who have questions please contact the health family day care provider that requested your imaging first. ? Narrative [...] patients who have questions please contactthe health family day care provider that requested your imaging first. Elmer Vaz Jr., MD IMG CT ORDERABLE S from Last 3 Months Care Teams Art Sales Consultant Relationship Specialty Start Date End Date Penny Javed APRN PCP - General 09/09/10
--- OUTSIDE RECORDS SUMMARY | 2024-10-20 19:28 | XMS_ITS | Referral Summary ---
Author Organization [facility] Address [address] [place] [address] Care Team Providers Care Umbrella Cutter Name Role Phone Sharon Vargas MD Primary Care Provider [phone] Encounters Date Type Department Care Team Description 10/20/2024 Telephone [facility] Nephrology - [address] [address] Cherrie Fam MD Appointment Related 10/20/2024 Telephone [facility] NEPHROLOGY [address] [place] [address] Cherrie Fam MD Follow-up 10/07/2024 Lab Requisition [facility] Pathology & Laboratory [address] [address] Outr Resulting Lab, Provider 10/06/2024 Lab Requisition [facility] Pathology & Laboratory [address] [address] Outr Resulting Lab, Provider from Last 3 [...] Info) Description 10/27/2024 14:15 EST Office Visit [facility] Ophthalmology [facility] [address] [place] [address] Consuelo Nicole MD [address] [place] [address] Procedures Procedure Name Priority Date/Time Associated Diagnosis Comments HCV RNA DETECT QUANT Routine 10/06/2024 14:00 EST URINE [id number] E RATIO (ACR) Routine 10/16/2015 HEMOGLOBIN A1C Routine 05/28/2014 from Last 3 Months or Most Recently Relevant to Health Maintenance Results * (ABNORMAL) HCV RNA DETECT QUANT (10/06/2024 14:00 EST) HCV RNA Qualitative Detected( A) Undetected 10/09/2024 11:37 EST [facility] HCV RNA Quantitative 2,950,000 (H) Undetected IU/mL 10/09/2024 11:37 EST [facility] Blood VENOUS BLOOD / Unknown 10/06/2024 14:00 EST 10/07/2024 22:18 EST Narrative [facility] - 10/09/2024 11:37 EST The quantification range of this assay is 15 IU/mL to 100,000,000 IU/mL. Testing was performed using the Jaron HCV test ([employer] with the jaron [employer] System. us Provider Outr Resulting Lab CHEMISTRY & BLOOD GA S ORDERABLES Final Result Performing Organization Address City/[facility]/ZIP Co de Phone Number [facility] [address] [place] [address] * ALBUMIN, URINE (10/16/2015) Microalb ug/mg Crea, External 312.7 [facility] Microalb mg/dl, External 84.7 [facility] Creatinine, Random U (UCRR), External 27.09 [facility] Urine specimen (specimen) 10/16/2015 us Sharon Vargas MD CHEMISTRY & BLOOD GAS ORDERABL ES Edited Result - Final [facility] * HEMOGLOBIN A1C (05/28/2014) Hemoglobin A1C, External 8.7 [facility] Est Avg Glucose, External [facility] Blood specimen (specimen) 05/28/2014 us Sharon Vargas MD CHEMISTRY & BLOOD GAS ORDERABL ES Final Result [facility] from Last 3 Months or Most Recently Relevant to Health Maintenance [place] Care Teams Umbrella Cutter Relationship Specialty Start Date End Date Sharon Vargas MD [address] [place] [address] PCP - General 09/09/15
--- OUTSIDE RECORDS SUMMARY | 2024-10-20 19:28 | XMS_ITS | Encounter Summary ---
Author Organization [facility] Address [address] [place] [address] Care Team Providers Care Residential Mortgage Manager Name Role Phone Sharon Vargas MD Primary Care Provider [phone] Reason for Visit * Reason Onset Date Comments Appointment Related 03/08/2024 Encounter Details Date Type Department Care Team (Late st Contact Info) Description 03/08/2024 Telephone [facility] [address] [place], [place] [phone] Consuelo Nicole MD [address] [place] [phone] Appointment Related Social History Tobacco Use [...] EST Office Visit [facility] [address] [place], [place] [phone] Consuelo Nicole MD [address] [place] [phone] documented as of this encounter Visit Diagnoses Not on filedocumented in this encounter Care Teams Residential Mortgage Manager Relationship Specialty Start Date End Date Sharon Vargas MD [address] [place] [address] PCP - General 09/09/15 documented as of this encounter
--- OUTSIDE RECORDS SUMMARY | 2024-10-20 19:28 | XMS_ITS | Encounter Summary ---
Author Organization [facility] Address [address] [place] [address] Care Team Providers Care Small Offset Printer Name Role Phone Sharon Vargas MD Primary Care Provider [phone] Reason for Visit * Reason Onset Date Comments Follow-up 10/20/2024 Encounter Details Date Type Department Care Team (Late st Contact Info) Description 10/20/2024 Telephone [facility] NEPHROLOGY [address] [place], [place] [phone] Cherrie Fam MD [address] [place] [address], [address] [place] [phone] Follow-up Social History Tobacco Use Types Packs/Day Years Used Date Smoking Tobacco: Every Day Cigarettes Smokeless Tobacco: Never Comments Unknown Sex and Gender Information Value Date Recorded Sex Assigned at Not on file Legal Sex Female 18:01 EST Gender Identity Female 01/04/2024 11:39 EDT Sexual Orientation Not on file documented as of this encounter Miscellaneous Notes * Telephone Encounter - Cherrie Fam MD - 10/20/2024 3758 EST Phone conversation with primary care provider at [facility]. Worsened kidney failure after 18 months' testing. Past medical history include chronic kidney disease, chronic Hepatitis C, cirrhosis, poorly controlled diabetes mellitus and proteinuria who was treated at [facility] recently and labs showed creatinine of 5.9 - 6.2 mg/dL, compared to 1.3 in January 2023. Recent non-contrast CT described normal sized kidneys without obstruction an ectatic left renal artery. She was on Valsartan-hydrochlorothiazide and Valsartan had been discontinued. A/P Acute kidney injury on chronic kidney disease versus progressive chronic kidney disease due to Hep C versus uncontrolled diabetes mellitus. Tests recommended include DEIDRE, C3 and C4 complements, ANCA, PT INR, PTT, LFT, Hep C RNA (recently done) and renal sonogram with Dopplers. A recent LFT was reported to shhow normal albumin and no elevated enzymes. I will be able to see the patient in the clinic on any Wednesday after these tests as an add-on, double booked. documented in this encounter Plan of Treatment Upcoming Encounters Date Type Department Care Team (Late st Contact Info) Description 10/27/2024 14:15 EST Office Visit [facility] Ophthalmology [facility] [address] [place] [address] Consuelo Nicole MD [address] [place] [address] documented as of this encounter Visit Diagnoses Not on filedocumented in this encounter Care Teams Small Offset Printer Relationship Specialty Start Date End Date Sharon Vargas MD [address] [place] [phone] PCP - General 09/09/15 documented as of this encounter
--- OUTSIDE RECORDS SUMMARY | 2024-10-20 19:28 | XMS_ITS | Continuity of Care Document ---
Author Organization [facility] Address [address] [place] [address] Care Team Providers Care Can Closing Machine Operator Name Role Phone [facility] OPHTHALMOLOGY [facility] Ophtha lmologist RACHELL FIORE Clinical Support Manager Assessment No assessment recorded. Plan of Treatment Reminders Order Date Submit Date Provider Last Modified By Organization Details Last Modified Time Details Appointments Nurse Visit 2024 01:00P M Armagh Nursing Staff Not available Not available Not available Follow Up 2024 01:50P M BARNEY HENDERSON Not available Not available Not available Follow Up 2024 02:30P M BARNEY HENDERSON Not available Not available Not available Lab INR, blood [address] [facility] (Registration ), [address] [place] [address] [place], [address], 10/20/2024 13:40:12 HBsAg (hepatiti s B surface Ag), serum [address] [facility] (Registration ), [address] [place] [address] [place], [address], 10/20/2024 13:40:12 hepatitis B core Ab, total, serum [address] [facility] (Registration ), [address] [place] [address] [place], [address], 10/20/2024 13:40:12 hepatitis A Ab, total, serum [address] [facility] (Registration ), [address] [place] [address] [place], [address], 10/20/2024 13:40:12 partial thrombopl astin time [address] [facility] (Registration ), [address] [place] [address] [place], [address], 10/20/2024 13:40:12 prothromb in time [address] [facility] (Registration ), [address] [place] [address] [place], [address], 10/20/2024 13:40:12 protein:c reatinine ratio, urine 2024 025 [id number] [facility] (Registration ), [address] [place] [address] [place], [address], 10/20/2024 13:54:40 C3 + C4 (compleme nt), serum 2024 025 [facility] (Registration ), [address] [place] [address] [place], [address], 10/20/2024 13:40:41 DEIDRE (antinucl ear antibodie s) screen, serum 2024 025 [facility] (Registration ), [address] [place] [address] [place], [address], 10/20/2024 13:40:41 Referral None recorded. Procedures None recorded. Surgeries None recorded. Imaging None recorded. Medication Orders None recorded. Patient TargetsNo targets recorded. Patient InstructionsNo instructions recorded. Reason for Referral None Reported. Results Created Date Observation Date Name Description Value Unit Range Abnormal Flag Note LastModifiedBy Organization Detail LastModifiedTime 10/07/20 24 10/07/2024 CT ABD pelvi s wo IV or oral contr ast [facility] RADIOL OGY Jeff Mchugh [id number] RADIOL OGY TRANSC RIPTIO N REPORT _ Patien t Name: ERROL RUTH MS B MRN: Sex: : Age: [id number] F [id number] Accoun t: Access ion: Admit: StayTy pe: [id number] 2023 E Ordere d: Order ID: Submit curtis: Ordertrey ng Provid er: 2023 14:14 [id number] CAROLINA MCINTOSH Comple curtis: Techno logist : [...] partic ipate in the care of this armin eugene. If you are a health care [facility] er and have any questi ons regard ing this report , please contac t the number below. For patien ts who have questi ons please contac t the health care profes tino that reques curtis your imagin g first. Electr onical ly signed by: Júnior Vick MD Radiol jimmy Adams olive ([phone]), at 2023 3:51 PM INTERFACE [facility] (Lab) [address] [place] [address], [address], 10/07/2024 15:57:10 Result Notes None recorded. Problems Name Problem SNOMED Code Status Onset Date Resolution Date Notes Provider Name and Address Organization Details Recorded Time Complica tion due to diabetes mellitus 00235000 Active [address], [facility] [address] , [facility] 14:41:01 Gastroes ophageal reflux disease without esophagi tis 797149469 Active [address], [facility] [address] , [facility] 15:41:02 Sleep apnea 28814280 Active [address], [facility] [address] , [facility] 4 15:41:33 Dyspnea on exertion 84098377 Active [address], [facility] [address] , [facility] 16:02:44 Smoker 49080196 Active [address], [place], [address] , [facility] 4 16:03:44 Legal blindnes s 63743544 Active [address], [place], [address] , [facility] 4 16:04:00 Toenail thickene d 285412248 Active [address], [facility] [address] , [facility] 4 16:07:44 Pruritic rash 20370223 Active [address], [place], [address] , [facility] 4 16:09:31 Retroper itoneal lymphade nopathy 507264186 Active 2023 jelena rivera, [facility] 5 12:10:08 Renal failure syndrome 62697700 Active 2023 jelena rivera, [facility] 5 12:10:41 Acute exacerba tion of chronic obstruct vishnu pulmonar y disease 983749650 Active [address], [place], [address] , [facility] 5 15:11:03 Acute renal insuffic iency 543941181 Active [address], [place], [address] , [facility] 5 16:57:59 Essentia l hyperten kevon 66954431 Active 2005 Kristie rivera, [facility] 4 09:53:15 Hyperlip idemia 72128293 Active 2005 Kristie Peters [facility], [facility] 4 10:08:20 Uncompli cated moderate persiste nt asthma 236306910 Active 2005 Kristie Fran [facility] 4 10:24:46 Severe obesity 04123152638 104 Active 2005 Kristie Fran [facility] 4 10:22:09 Chronic hepatiti s C 430710811 Active 2003 pos viral load not treated [facility] 4 09:47:44 Pain of right shoulder joint 60687626295 966549 Active 2014 [facility] 4 10:17:43 Neuropat hy due to type 2 diabetes mellitus 69746089300 9106 Active 2014 uncontro lled, w/neurol o comps [facility] 4 10:17:28 Idiopath ic osteoart hritis 430377300 Active 2014 DJD, knees, bilatera l [facility] 4 10:08:49 Renal disorder due to type 2 diabetes mellitus 851501983 Active 2015 Diabetic nephropa thy [facility] 4 10:21:57 Derangem ent of right knee 46369133805 110832 Completed 201505/05/2016 Problem Code: M23.91; Problem Code Type: ICD-10; Not Available [facility] 3 04:12:16 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 10851288540 9104 Active 2015 (not billable after 6) [facility] 10:16[facility]21 Cocaine abuse 60329450 Active 2016 episodic [facility] 4 09:50:22 Tobacco use cessatio n educatio n Active 2016 [facility] 4 10:22:41 Gallblad mark calculus with acute cholecys titis and no obstruct ion 059546529 Completed 201612/29/2016 Problem Code: K80.00; Problem Code Type: ICD-10; Not Available [facility] 3 04:12:17 Acute asthma 648030441 Completed 201604/13/2017 Problem Code: J45.901; Problem Code Type: ICD-10; Not Available [facility] 3 04:12:17 Cellulit is 860643159 Completed 201607/16/2017 Problem Code: L03.90; Problem Code Type: ICD-10; Not Available [facility] 3 04:12:17 Atopic dermatit is 89617259 Active 2017 [facility]. 4 09:45:01 Impetigo 31879450 Completed 201705/03/2018 Problem Code: L01.00; Problem Code Type: ICD-10; Not Available [facility] 3 04:12:17 Screenin g mammogra phy Completed 201804/20/2019 Problem Code: Z12.31; Problem Code Type: ICD-10; Not Available [facility] 3 04:12:18 History of diabetic foot ulcer 51798450732 316430 [facility]. 4 10:01:51 Chronic obstruct vishnu pulmonar y disease 48626256 Active 2018 Asthma with COPD [facility], [facility]. 4 09:48:31 Anemia 233352903 Active 2018 [facility]. 4 09:39:01 Albumin level - finding 571078185 Active 2018 decrease d [facility]. 4 09:37:16 Peripher al venous insuffic iency 80581759 Active 2018 Stasis ulcer [facility] 4 10:18:18 Cough 95420649 Completed 201908/22/2020 Problem Code: R05; Problem Code Type: ICD-10; Not Available [facility] 3 04:12:19 Endocrin e/metabo lic screenin g Completed 202012/28/2020 Problem Code: Z13.29; Problem Code Type: ICD-10; Not Available [facility] 3 04:12:19 Counseli ng Active 2020 Immuniza tion counseli ng [facility] 4 09:51:24 Generali zed anxiety disorder 33051560 Active 2020 [facility] 4 10:01:19 Vomiting 786793538 Completed 202006/26/2021 Problem Code: R11.10; Problem Code Type: ICD-10; Not Available [facility] 3 04:12:19 Insect bite Completed 202007/09/2021 Not Available [facility] 3 04:12:20 Cirrhosi s of liver 16208831 Active 2022 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 with possible contribu tion of [place], decompen sated [facility] 4 09:49:47 Jaundice 04653258 Active 2022 [facility] 4 10:09:01 Muscle weakness 66396294 Active 2022 (general ized) [facility] 4 10:16:46 Opioid abuse 3201309 Completed 202209/28/2023 Problem Code: F11.10; Problem Code Type: ICD-10; Not Available [facility] 4 05:34:22 Lichen simplex chronicu s 98223775 Active 2022 Neuroder matitis Kristie Peters [facility] 4 10:10:12 History of osteomye litis 005061538 Active 2022 Kristie rivera, [facility] 4 10:05:22 Opioid abuse 6150965 Completed 201807/14/2023 03/04/20 21 - Comments only - Barney Henderson MD - offered scg for OBT but she states she plans to try to establis h tx thru [facility]. Not interest ed in Suboxone or Vivitrol ; might be interest ed in Sublocad e. Problem Code: F11.10; Problem Code Type: ICD-10; Not Available [facility] 3 04:12:22 Cholelit hiasis without obstruct ion 98680820 Completed 201512/22/2016 Problem Code: K80.20; Problem Code Type: ICD-10; Not Available [facility] 3 04:12:22 Candidia sis of vagina 47366700 Completed 201503/27/2016 Problem Code: B37.3; Problem Code Type: ICD-10; Not Available [facility] 3 04:12:23 Traumati c or non-trau matic injury 044490113 Completed 201607/14/2023 Problem Code: T14.8; Problem Code Type: ICD-10; Not Available [facility] 3 04:12:23 Disorder of teeth AND/OR supporti ng structur es 483526841 Completed 201503/17/2016 Problem Code: K08.8; Problem Code Type: ICD-10; Not Available [facility] 3 04:12:23 Uncompli cated asthma 690357845 Completed 200507/14/2023 Problem Code: J45.909; Problem Code Type: ICD-10; Not Available [facility] 3 04:12:23 Hyperten sive disorder 11366216 Completed 200507/14/2023 Not Available [facility] 3 04:12:24 Scar conditio ns and fibrosis of skin 794680672 Completed 201604/23/2017 Problem Code: L90.5; Problem Code Type: ICD-10; Not Available [facility] 3 04:12:24 Human papillom a virus infectio n 293418829 Completed 201607/14/2023 Problem Code: B97.7; Problem Code Type: ICD-10; Not Available [facility] 3 04:12:24 Morbid obesity 978065749 Completed 200507/14/2023 Not Available [facility] 3 04:12:24 Foot ulcer due to type 2 diabetes mellitus 08951128900 00 Completed 201512/22/2016 01/20/20 19 - Comments [...] Code: E11.621; Problem Code Type: ICD-10; [facility]ie [facility] 4 09:59:50 Periapic al abscess 810184993 Completed 201403/17/2016 Problem Code: K04.7; Problem Code Type: ICD-10; Not Available [facility] 3 04:12:25 Drug abuse 52245906 Completed 200707/14/2023 Problem Code: 305.90; Problem Code Type: ICD-9; Not Available [facility] 3 04:12:25 Opioid dependen ce in remissio n 069106196 Completed 201807/14/2023 09/26/20 19 - Comments only [...] F11.21; Problem Code Type: ICD-10; Not Available [facility] 3 04:12:25 Gynecolo gic examinat ion Completed 201602/02/2017 Problem Code: Z01.419; Problem Code Type: ICD-10; Not Available [facility] 3 04:12:26 Nodule on toe 459440903 Completed 201605/25/2019 Not Available [facility] 3 04:12:26 Pain of right knee joint 31260200579 4100 Completed 201502/02/2017 Problem Code: M25.561; Problem Code Type: ICD-10; Not Available [facility] 3 04:12:26 Candidia sis of skin 56344661 Completed 201503/27/2016 Problem Code: B37.2; Problem Code Type: ICD-10; Not Available [facility] 3 04:12:26 Dysuria 06965615 Completed 201505/07/2016 Problem Code: R30.0; Problem Code Type: ICD-10; Not Available [facility] 3 04:12:27 Retinopa thy due to type 2 diabetes mellitus 362987516 Completed 201507/14/2023 Problem Code: E11.319; Problem Code Type: ICD-10; Not Available [facility] 3 04:12:27 Infectio n of skin and/or subcutan eous tissue 40941826 Completed 202204/30/2023 Problem Code: L08.89; Problem Code Type: ICD-10; Not Available [facility] 3 04:12:27 Tobacco dependen ce caused by cigarett es 90495442459 198915 Completed 200305/25/2019 Problem Code: F17.210; Problem Code Type: ICD-10; Not Available [facility] 3 04:12:27 Opioid dependen ce 28300216 Completed 200309/04/2015 05/25/20 19 - Comments only - Alexandroyocasta Grewal - Doing well in treatmen t at [facility]. Problem Code: F11.20; Problem Code Type: ICD-10; Not Available [facility] 3 04:12:28 Asthma 197524382 Completed 200507/14/2023 Not Available [facility] 3 04:12:28 Pain of joint of knee 9892490155 Completed 201407/14/2023 Problem Code: M25.569; Problem Code Type: ICD-10; Not Available [facility] 3 04:12:28 Cellulit is of right lower limb 59446761358 610208 Completed 201805/25/2019 Problem Code: L03.115; Problem Code Type: ICD-10; Not Available [facility] 3 04:12:28 Shoulder joint pain 679571583 Completed 201407/14/2023 Problem Code: 719.41; Problem Code Type: ICD-9; Not Available [facility] 3 04:12:29 Smoker 41760928 Completed 200307/14/[address], [place], [address] , [facility] 4 16:03:44 Chronic ulcer of foot 426080557 Completed 201601/05/2017 Problem Code: L97.529; Problem Code Type: ICD-10; Not Available [facility] 3 04:12:29 Type 2 diabetes mellitus without complica tion 180940629 Completed 200307/14/2023 Problem Code: 250.00; Problem Code Type: ICD-9; MD Shailesh [address], [place], [address] , [facility] 4 14:43:16 Pain of left knee joint 25600273450 4107 Completed 201407/14/2023 Problem Code: M25.562; Problem Code Type: ICD-10; Not Available [facility] 3 04:12:30 Depressi ve disorder 31142471 Completed 200307/14/2023 BARNEY HENDERSON MD [address], [place], [address] , [facility] 4 14:41:17 Hypergly cemia due to type 2 diabetes mellitus 36884032955 9109 Completed 200309/04/2015 Problem Code: E11.65; Problem Code Type: ICD-10; Not Available [facility] 3 04:12:30 Chest pain 77595884 Completed 201605/25/2019 Problem Code: R07.89; Problem Code Type: ICD-10; Not Available [facility] 3 04:12:31 Drug dependen ce 547993294 Completed 200307/14/2023 Problem Code: 304; Problem Code Type: ICD-9; Not Available [facility] 3 04:12:31 Cellulit is of toe of right foot 32458721567 437560 Completed 201505/11/2016 Problem Code: L03.031; Problem Code Type: ICD-10; Not Available [facility] 3 04:12:31 Osteoart hritis of knee 957027295 Completed 201402/02/2017 Problem Code: M17.9; Problem Code Type: ICD-10; Not Available [facility] 3 04:12:32 History of infectio us disease 289497854 Completed 201409/04/2015 Problem Code: Z86.19; Problem Code Type: ICD-10; Kristie rivera [facility] 4 10:05:01 Tobacco user 725397610 Completed 200508/06/2015 Not Available [facility] 3 04:12:32 Viral screenin g Completed 202209/10/2023 Problem Code: Z11.52; Problem Code Type: ICD-10; Not Available [facility] 4 05:34:15 Acute upper respirat ory infectio n 28217755 Completed 202208/18/2023 Problem Code: J06.9; Problem Code Type: ICD-10; Not Available [facility] 4 05:34:15 Type 2 diabetes mellitus without complica tion 896631602 Completed 202309/01/2024 Problem Code: 250.00; Problem Code Type: ICD-9; MD Shailesh BOLIVAR Dr, [facility] [address] , [facility] 4 14:43:16 Asthma-c hronic obstruct vishnu pulmonar y disease overlap syndrome 42510739283 471721 Active 2023 [facility] 4 09:39:21 Decompen sated cirrhosi s of liver 660900823 Active 2023 Child Bourgeois score 8/Class B as of 12/2022 [facility] 4 09:51:34 Visual impairme nt 198336822 Active 2023 [facility] 4 10:29:20 Thickene d nails 436048971 Active 2023 [facility] 4 10:22:14 Thickeni ng of skin 91107792 Completed 202309/01/[address], [place], [address] , [facility] 4 14:43:15 Acquired hammer toes of bilatera l feet 01582356456 930549 Active 2023 [facility] 4 09:37:02 History of amputati on of right foot 08779021188 233622 Active 2023 [facility] 4 10:01:25 Combined form of senile cataract 66682060 Active 2023 [facility] 4 09:50:32 Unintent ional weight loss 812461656 Active 2022 [facility] 4 10:24:46 History of amputati on of lesser toe 726226821 Active 2022 [facility] 4 09:38:36 History of intraven ous drug abuse 00734152732 481054 Active 2007 heroin [facility] 4 09:40:14 Left ventricu lar hypertro phy 84518140 Active 2015 mild concentr ic 12/31 echo (nl EF) [facility] 4 09:47:08 Follicul itis 28863551 Active 2022 [facility] 4 09:52:22 Peripher al edema 943877369 Active 2014 [facility] 4 09:52:55 Mild persiste nt asthma 518388436 Active 2022 with acute exacerba tion [facility] 4 09:54:28 Family history of Alzheime r's disease 450853729 Active 2018 mother age 50, maternal grandmot her, maternal aunts and uncles; no genetic testing done [facility] 4 09:56:26 Diabetic foot ulcer 751524754 Active 2022 [facility] 4 09:59:46 History of cholecys tectomy 141563702 Active 2016 laparosc opic, 01/01 [facility] 4 10:00:55 History of human papillom a virus infectio n 93570947705 9102 Active 01/01; nl pap; neg colpo 04/03 incl ECC; neg pap 11/05; 5 yr f/u [facility] 4 10:04:56 History of opioid abuse 75035474718 9100 Active 2018 Hx of opioid abuse -- [facility] resumed suboxone 09/07 [facility] 4 10:08:01 Edfareed 947606618 Active 2015 s/p complete extr due to advanced caries 03/02 [facility] 4 10:13:37 Major depressi ve disorder 903063170 Active 2022 Major depressi on [facility] 4 10:15:28 Traumati c partial amputati on of right great toe Active 2018 initial encounte r [facility] 4 10:23:54 Stasis dermatit is 30521786 Active 2021 Venous stasis dermatit is [facility] 4 10:30:44 Diabetes mellitus 35447477 Completed 202309/01/[address], [facility] [address] , [facility] 4 14:43:16 Type 2 diabetes mellitus 87795354 Completed 202309/01/[address], [facility] [address] , [facility] 4 14:43:16 Obesity 553853726 Active [address], [facility] [address] , [facility] 4 20:58:25 Hemoglob in A1c greater than 9% indicati ng poor diabetic control 45082117967 4104 Completed 202309/01/[address], [place], [address] , [facility] 4 14:43:16 Problem Notes None recorded. Medical Equipment None Reported. Allergies Allergen ID Allergen Name Allergen Category Reaction Reaction Severity Criticality Documentation Date Start Date Code Code System Note Provider Name and Address Organization Details Recorded Time 55637 lisinopri l medicatio n cough moderate Not available 08/27/20232009 67153 RxNorm [facility] 4 10:31:16 51879 metoprolo l succinate medicatio n other moderate Not available 08/27/20232018 98894 4 RxNorm No react ion enter ed [facility] 4 10:31:36 40223 codeine medicatio n hives moderate Not available 08/27/20232002 2670 RxNorm [facility] 4 10:31:10 Medications Name Sig Start [...] Stockings Dx: peripher al edema 11/04 completed [place] Not Available Not Available Not Available gabapenti n 300 mg tablet 3 cap three times daily 06/16 completed Not Available Not Available Not Available albuterol 2INH four times daily 07/31 completed Not Available Not Available Not Available Nystatin (Topical) cream apply BID 05/28 completed Not Available Not Available Not Available Nebulizer Dx: Asthma J45.40 Smoking Z71.6 2018 active [place] Not Available Not Available Not Available Humalog [...] sublingu ally once daily 05/08 completed Per TERESSA 04/12/19, total daily dose increase d to [...] completed Not Available Not Available Not Available Toujeo SoloStar U-300 Insulin 300 unit/mL (1.5 mL) [...] 2023 active Not Available Not Available Not Zaheer roselitzy Albrecht Ellipta 200 mcg-62.5 mcg-25 mcg powder for inhalatio n Inhale 1 puff every day by inhalati on route, for COPD. active Per KDM, Pt will have $4.63/mo [facility] copay. Pt aware. Not Available Not Available Not Available Vitals None Recorded Social History Question Answer Notes LastModified by Organizat ion Details LastModified Time Tobacco Smoking Status Current Every Day Smoker SURJIT KITCHEN, DAVID null, [place] - [facility]. 11/03/2023 13:42:55 Date Of Most Recent HSA 10/06/2024 [email or web address] Information not available 10/06/2024 Would You Say That, In General, Your Health Is Poor [email or web address] Information not available 10/06/2024 Women Aged 18-50 - Would You Like To Become In The Next Year? (Female Patients Only) No [email or web address] Information not available 10/06/2024 How Often Does Anyone, Including Family, Physically Hurt You? Never Information not available 10/06/2024 How Often Does Anyone, Including Family, Insult Or Talk Down To You? Never [email or web address] Information no t available 10/06/2024 How Often Does Anyone, Including Family, Threaten You With Harm? Never [email or web address] Information not available 10/06/2024 How Often Does Anyone, Including Family, Scream Or Curse At You? Never [email or web address] Information not available 10/06/2024 Within The Past 12 Months, You Worried That Your Food Would Run Out Before You Got Money To Buy More. Sometimes True [email or web address] Information not available 10/06/2024 Within The Past 12 Months, The Food You Bought Just Didn't Last And You Didn't Have Money To Get More. Sometimes True [email or web address] Information not available 10/06/2024 How Hard Is It For You To Pay For The Very Basics Like Food, Housing, Medical Care, And Heating? Would You Say It Is: Very Hard [email or web address] Information not available 10/06/2024 In The Past 12 Months, Has Lack Of Reliable Transportation Kept You From Medical Appointments, Meetings, Work Or From Getting Things Needed For Daily Living? Yes Information not available 10/06/2024 What Is Your Housing Situation Today? I Have Housing. [email or web address] Information not available 10/06/2024 How Often In The Past Year Have You Used Marijuana (including Smoking, Vaping, Dabbing, Or Edibles)? Never [email or web address] Information not available 10/06/2024 How Often In The Past Year Have You Used Prescription Medications That Were Not Prescribed To You? Never [email or web address] Information not available 10/06/2024 How Often In The Past Year Have You Taken Your Own Prescription Medication More Than The Way It Was Prescribed Or For Different Reasons Than Its Intended Purpose? Never [email or web address] Information no t available 10/06/2024 How Often In The Past Year Have You Used Other Drugs (for Example, Heroin, Cocaine, Meth, Salvia, Inhalants)? Never [email or web address] Information not available 10/06/2024 Have You Ever Used IV Drugs? Yes 10 Years Ago [email or web address] Information not available 10/06/2024 What Matters Most To You? Vision, Overall Health [email or web address] Information not available 10/06/2024 During The Past Four Weeks Has Your Physical And Emotional Health Limited Your Social Activities With Family And Friends, Neighbors, Or Groups? Moderately [email or web address] Information not available 10/06/2024 During The Past Four Weeks, Was Someone Available To Help You If You Needed And Wanted Help? (For Example, If You [place] Very Nervous, Lonely, Or Blue; Got Sick And Had To Stay In Bed; Needed Someone To Talk To; Needed Help With Daily Chores; Or Needed Help Just Taking Care Of Yourself.) Yes- Quite A Bit [email or web address] Information not available 10/06/2024 During The Past Four Weeks, What Was The Hardest Physical Activity You Could Do For At Least 2 Minutes? Heavy [email or web address] Information not available 10/06/2024 Can You Get To Places Out Of Walking Distance Without Help? (For Example, Can You Travel Alone On Buses Or Taxis, Or Drive Your Own Car?) No [email or web address] Information not available 10/06/2024 Can You Go Shopping For Groceries Or Clothes Without Someone? s Help? No [email or web address] Information not available 10/06/2024 Can You Prepare Your Own Meals? No [email or web address] Information not available 10/06/2024 Can You Do Your Housework Without Help? Yes [email or web address] Information not available 10/06/2024 Because Of Any Health Problems, Do You Need The Help Of Another Person With Your Personal Care Needs Such As Eating, Bathing, Dressing, Or Getting Around The House? Yes [email or web address] Information not available 10/06/2024 Can You Handle Your Own Money Without Help? Yes [email or web address] Information not available 10/06/2024 Are You Having Difficulties Driving Your Car? Not Applicable- I Do Not Use A Car [email or web address] Information not available 10/06/2024 How Often During The Past Four Weeks Have You Been Bothered By Any Of The Following Problems? Falling Or Dizzy When Standing Up? Often [email or web address] Information not available 10/06/2024 Sexual Problems? Never [email or web address] Informat ion not available 10/06/2024 Trouble Eating Well? Never Information not available 10/06/2024 Teeth Or Denture Problems? Always [email or web address] Information not available 10/06/2024 Problems Using The Telephone? Always Can't See Phone [email or web address] Information not available 10/06/2024 Tiredness Or Fatigue? Always [email or web address] Information not available 10/06/2024 Have You Had 2 Or More Falls Or Sustained An Injury With A Fall In The Last Year? Yes [email or web address] Information not available 10/06/2024 Do You Have Difficulty With Walking Or Balance? Yes [email or web address] Information not available 10/06/2024 Do You Currently Use A Hearing Device? No [email or web address] Information not available 10/06/2024 Do You Currently Have Any Trouble With Your Vision? Yes [email or web address] Information no t available 10/06/2024 Do You Exercise For About 20 Minutes Three Or More Days A Week? No- I Usually Do Not Exercise Much Information not available 10/06/2024 Are There Any Safety Concerns In Your Home (see Attached CDC Pamphlet)? Yes Stairs, Cooking Information not available 10/06/2024 How Often Do You Have Trouble Taking Medicines The Way You Have Been Told To Take Them? Sometimes I Take Them As Prescribed [email or web address] Information not available 10/06/2024 How Confident Are You That You Can Control And Manage Most Of Your Health Problems? Somewhat Confident [email or web address] Information not available 10/06/2024 Do You Currently Have Any Difficulty With Your Hearing? No [email or web address] Information not available 10/06/2024 Date Of Most Recent SBINS 10/06/2024 [email or web address] Information not available 10/06/2024 What Was The Date Of Your Most Recent Tobacco Screening? 10/06/2024 [email or web address] Information not available 10/06/2024 What Is Your Current Pack Years? 30ormorepacky ears Information not available 11/03/2023 At What Age Did You Start Smoking Tobacco? 14 Information not available 11/03/2023 How Much Tobacco Do You Smoke? 1 PPW Information not available 11/03/2023 Has Tobacco Cessation Counseling Been Provided? Yes Pt Declines. Information not available 10/06/2024 On What Date Was Tobacco Cessation Counseling Provided? 10/06/2024 Pt Just Not Ready Yet. [email or web address] Information not available 10/06/2024 How Many Years [...] Time Mother Family history of kidney disease [email or web address] Not available 2022 03:50:23 Mother Family history [...] mcg/0.3 mL 4 completed ARMIDA HIRSCH MA [facility], [place] - [facility] 09/01/2024 18:38:23 Influenza, split virus, trivalent, PF 4 completed BARNEY HENDERSON MD [facility] [address]adi [address]eral[address], [place], [address], [facility] - [facility] 09/01/2024 16:09:15 Td (adult), 5 Lf tetanus toxoid, preservative free, adsorbed 7 completed Not Available [facility] 08/27/2023 06:21:08 Tdap 7 completed Not Available [facility] 08/27/2023 06:21:08 Novel [id number], all formulations 9 completed Not Available [facility] 08/27/2023 06:21:08 Td(adult) unspecified formulation 1 completed Not Available [facility] 08/27/2023 06:21:08 Influenza, split virus, trivalent, preservative 6 completed Not Available [facility] 08/27/2023 06:21:08 Influenza, split virus, quadrivalent, PF 2 completed Not Available [facility] 08/27/2023 06:21:08 Influenza, split virus, quadrivalent, PF 3 completed Not Available [facility] 08/27/2023 06:21:08 Influenza, split virus, quadrivalent, preservative 8 completed Not Available [facility] 08/27/2023 06:21:09 COVID-19, mRNA, LNP-S, PF, 100 mcg/0.5mL dose or 50 mcg/0.25mL dose 2 completed Not Available [facility] 08/27/2023 06:21:09 COVID-19 vaccine, vector-nr, rS-Ad26, PF, 0.5 mL 1 completed Not Available [facility] 08/27/2023 06:21:09 COVID-19, mRNA, LNP-S, bivalent, PF, 30 mcg/0.3 mL dose 3 completed Not Available [facility] 08/27/2023 06:21:09 pneumococcal polysaccharide PPV23 0 completed Not Available [facility] 08/27/2023 06:21:09 influenza, unspecified formulation 9 completed Not Available [facility] 08/27/2023 06:21:09 influenza, unspecified formulation 8 completed Not Available [facility] 08/27/2023 06:21:09 influenza, unspecified formulation 7 completed Not Available [facility] 08/27/2023 06:21:09 Influenza, split virus, quadrivalent, PF 3 completed Not Available [facility] 10/29/2023 05:31:09 Pneumococcal conjugate PCV20, polysaccharide [id number] conjugate, adjuvant, PF 3 completed Not Available [facility] 10/29/2023 05:31:11 Past Encounters Encounter ID Performer Location Encounter Start Date Encounter Closed Date Diagnosis/Indication Diagnosis SNOMED-CT Code Diagnosis ICD10 Code Diagnosis Note [id number] ROSIBEL SALGADO RN [address] [address] 10/06/2024 12:53:21 10/06/2024 14:03:34 Adult health examination 197978403 Z00.00 Muscle weakness 21245669 M62.81 Decompensa curtis cirrhosis of liver 523451605 K74.60 See above. No evidence of ascites, varices or jaundice. Hyperlipidemia 93452903 E78.5 Chronic hepatitis C 1283 84093 B18.2 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 [id number] 5363845 J44.9 Recommende d switch from Breo to Trelegy for LABA/LAMA coverage as well as ICS. 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 01635140 E11.[id number] [address] 10/19/2024 14:35:21 10/19/2024 17:05:19 Acute exacerbation of chronic obstructive pulmonary disease 534934562 J44.1 Will treat with short course of prednisone , 40 mg/day x 5 days. In-house supply dispensed given her difficulty getting to and obtaining medication s from the pharmacy. 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 I reviewed with her availabili ty of a funds to our office to help with co-pays if needed. Renal fail ure syndrome 53211590 N19 Acute on chronic with no significan t improvemen t in creatinine during hospitaliz ation. Reviewed with [facility] nephrology . Will obtain screening labs including UPC, DEIDRE, C3-C4, acute hepatitis panel, PT/INR, PTT and renal ultrasound and he agrees to see her soon. She confirmed that she would want dialysis, unsure if home or hospital-b ased. She is a full code. Did have eladio discussion about overall poor prognosis given chronic untreated hep C with known cirrhosis, longstandi ng diabetes with complicati ons including nephropath y, neuropathy , ulcers resulting in amputation and significan t retinopath y, and chronic lung disease. Decompensa curtis cirrhosis of liver 240315362 K74.60 Will check coag studies, had recent liver function tests, will forward all to nephrology . Chronic hepatitis C 1283 13948 B18.2 High viral load, she was hoping to start treatment but is too ill at this time. Acute randa l insufficiency 748317264 N28.9 Repeat BMP drawn today. Will schedule weekly BMPs through home health to keep close eye on creatinine and GFR. Essential hypertension 03630904 I10 Blood pressure higher since discontinu ation of losartan HCTZ. Will increase amlodipine from 5 to 10 mg/day. 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 81606906 E11.8 A1c was 6.6 during recent hospital stay and blood sugars have been remaining under 200 off all insulin and oral hypoglycem ics recently. Will likely need resumption of some degree of insulin or possibly an oral agent, will monitor. She will continue checking her sugars 2-3 times per day. Tobacco SyMynd e cessation education 187536107 Z71.6 Unfortunat dimitri she continues to smoke and has been unable to quit. History of opioid abuse 8143718614 60116 F11.11 Stable on methadone but with ongoing cocaine use. Retroperit antonio lymphadenopathy 067771266 R59.0 Reactive etiology favored per radiologis t, no concerning masses or other signs of malignancy on recent noncontras t abdominal pelvis CT. [id number] DOTTIE COFFMAN LPN [facility] [address] [place] [address] 10/20/2024 13:00:57 10/20/2024 14:00:30 Cirrhosis of liver 53661849 K74.60 Acute-on-c hronic renal failure 517729984 N17.9 R80.9 Health Concerns Section Related Observation LastModified by Organization Detai ls LastModified Time None Recorded Concern Status LastModified by Organization Details LastModified Time None Recorded Payers Encounter Date Sequence Insurance Name Policy Number Policy Salmon Covered Member ID Salmon Member ID Guarantor Name 10/20/2024 2 [facility] (MEDICAID) Lea Vasquez [id number] Lea Vasquez 10/20/2024 1 [place]ARE[place] - [place] A - [facility] (MEDICARE) Lea Vasquez [id number] Lea Vasquez OBGyn Episode No OBEpisode recorded.
--- OUTSIDE RECORDS SUMMARY | 2024-10-20 19:28 | XMS_ITS | Clinical Summary ---
Author Organization [facility] Address [address] [place] [address] Care Team Providers Care Copper Miner Name Role Phone Sharon Vargas MD Primary Care Provider [phone] Allergies Active Allergy Reactions Criticality Noted Date [...] Type Department Care Team Description 10/20/2024 Telephone [facility] Nephrology - [facility] [address] [place] [address] Cherrie Fam MD Appointment Related 10/20/2024 Telephone [facility] NEPHROLOGY [address] [place] [address] Cherrie Fam MD Follow-up 10/07/2024 Lab Requisition [facility] [address] [address] Outr Resulting Lab, Provider 10/06/2024 Lab Requisition [facility] [address] [address] Outr Resulting Lab, Provider from Last 3 [...] Info) Description 10/27/2024 14:15 EST Office Visit [facility] Ophthalmology [facility] [address] [place] [address] Consuelo Nicole MD [address] [place] [phone] Health Maintenance Due Date Last Done Comments Foot Exam 1975 Lipid Profile Screening (Cholesterol) 1978 Pneumococcal Immunization (1 of 2 - PCV) 1981 Hepatitis B Vaccine (1 of 3 - 19+ 3-dose series) 1994 Hemoglobin A1C (Ha1C) 11/28/2014 05/28/2014 Microalbumin/Creatinine Ratio 10/16/2016 10/16/2015 Eye Exam 03/16/2025 03/16/2024, 04/2 03/2024, 12/29/2023 COVID-19 Vaccine Completed 09/01/2024, , 11/04/2021, Additional history exists Hepatitis C Screen Completed 10/06/2024, 0 01/01/2023, 01/01/2023 Procedures Procedure Name Priority Date/Time Associated Diagnosis Comments HCV RNA DETECT QUANT Routine 10/06/2024 14:00 EST URINE [id number] E RATIO (ACR) Routine 10/16/2015 HEMOGLOBIN A1C Routine 05/28/2014 from Last 3 Months or Most Recently Relevant to Health Maintenance Results * (ABNORMAL) HCV RNA DETECT QUANT (10/06/2024 14:00 EST) HCV RNA Qualitative Detected( A) Undetected 10/09/2024 11:37 EST [facility] HCV RNA Quantitative 2,950,000 (H) Undetected IU/mL 10/09/2024 11:37 EST [facility] Blood VENOUS BLOOD / Unknown 10/06/2024 14:00 EST 10/07/2024 22:18 EST Narrative [facility] - 10/09/2024 11:37 EST The quantification range of this assay is 15 IU/mL to 100,000,000 IU/mL. Testing was performed using the Jaron HCV test ([employer] with the jaron 6800 System. us Provider Outr Resulting Lab CHEMISTRY & BLOOD GA S ORDERABLES Final Result [facility] [address] [place] [address] * ALBUMIN, URINE (10/16/2015) Microalb ug/mg Crea, External 312.7 [facility] Microalb mg/dl, External 84.7 [facility] Creatinine, Random U (UCRR), External 27.09 [facility] Urine specimen (specimen) 10/16/2015 Sharon Vargas MD CHEMISTRY & BLOOD GAS ORDERABL ES Edited Result - Final Performing Organization Address [facility] de Phone Number [facility] * HEMOGLOBIN A1C (05/28/2014) Hemoglobin A1C, External 8.7 [facility] Est Avg Glucose, External [facility] Blood specimen (specimen) 05/28/2014 Sharon Vargas MD CHEMISTRY & BLOOD GAS ORDERABL ES Final Result Performing Organization Address [facility] Co de Phone Number [facility] from Last 3 Months or Most Recently Relevant to Health Maintenance Insurance [place]ARE Care Teams Copper Miner Relationship Specialty Start Date End Date Sharon Vargas MD [address] [place] [phone] PCP - General 09/09/15
--- OUTSIDE RECORDS SUMMARY | 2024-10-20 19:28 | XMS_ITS | Encounter Summary ---
Author Organization [facility] Address [address] [place] [address] Care Team Providers Care Lpn Medical Assistant Name Role Phone Sharon Vargas MD Primary Care Provider [phone] Encounter Details Date Type Department Care Team (Late st Contact Info) Description 10/07/2024 Lab Requisition [facility] Pathology & Laboratory Medicine - [facility] [address] [place] [address] Outr Resulting Lab, Provider Social History Tobacco [...] Info) Description 10/27/2024 14:15 EST Office Visit [facility] [address] [place] [address] Consuelo Nicole MD [address] [place] [phone] documented as of this encounter Procedures Procedure Name Priority Date/Time Associated Diagnosis Comments HCV RNA DETECT QUANT Routine 10/06/2024 14:00 EST documented in this encounter Results * (ABNORMAL) HCV RNA DETECT QUANT (10/06/2024 14:00 EST) HCV RNA Qualitative Detected( A) Undetected 10/09/2024 11:[address] [facility] HCV RNA Quantitative 2,950,000 (H) Undetected IU/mL 10/09/2024 11:[address] [facility] Blood VENOUS BLOOD / Unknown 10/06/2024 14:00 EST 10/07/2024 22:[address] [facility] - 10/09/2024 11:37 EST The quantification range of this assay is 15 IU/mL to 100,000,000 IU/mL. Testing was performed using the Jaron HCV test ([employer] with the jaron [employer] System. us Provider Outr Resulting Lab CHEMISTRY & BLOOD GA S ORDERABLES Final Result Performing Organization Address City/State/[facility] Co de Phone Number [facility] [address] [place] [address] documented in this encounter Visit Diagnoses Not on filedocumented in this encounter Care Teams Lpn Medical Assistant Relationship Specialty Start Date End Date Sharon Vargas MD [address] [place] [phone] PCP - General 09/09/15 documented as of this encounter
--- OUTSIDE RECORDS SUMMARY | 2024-10-20 19:28 | XMS_ITS | Encounter Summary ---
Author Organization [facility] Address [address] [place] [address] Care Team Providers Care Environment Friendly Landscape Designer Name Role Phone Sharon Vargas MD Primary Care Provider [phone] Reason for Visit * Reason Onset Date Comments Appointment Related 10/20/2024 Encounter Details Date Type Department Care Team (Late Contact Info) Description 10/20/2024 Telephone [facility] Nephrology - [address] [phone] Cherrie Fam MD [address] [place] [address], [address] [place] [phone] Appointment Related Social History Tobacco Use Types Packs/Day Years Used Date Smoking Tobacco: Every Day Cigarettes Smokeless Tobacco: Never Comments Unknown Sex and Gender Information Value Date Recorded Sex Assigned at Not on file Legal Sex Female 18:01 EST Gender Identity Female 01/04/2024 11:39 EDT Sexual Orientation Not on file documented as of this encounter Miscellaneous Notes * Telephone Encounter - Gildardo Shay - 10/20/2024 1319 EST Reached out looking to schedule NPV appt no answer no voicemail. If pt calls back please schedule with Dr. Fam per his request ok to double book on a Wednesday. Please assign to referral. documented in this encounter Plan of Treatment Upcoming Encounters Date Type Department Care Team (Late Contact Info) Description 10/27/2024 14:15 EST Office Visit [facility] Ophthalmology [address] [place] [address] Consuelo Nicole MD [address] [place] [phone] documented as of this encounter Visit Diagnoses Not on filedocumented in this encounter Care Teams Environment Friendly Landscape Designer Relationship Specialty Start Date End Date Sharon Vargas MD [address] [place] [address] PCP - General 09/09/15 documented as of this encounter
--- OUTSIDE RECORDS SUMMARY | 2024-10-20 19:28 | XMS_ITS | Encounter Summary ---
Author Organization [facility] Address [address] [place] [address] Care Team Providers Care Corporate Strategist Name Role Phone Sharon Vargas MD Primary Care Provider [phone] Encounter Details Date Type Department Care Team (Late st Contact Info) Description 10/06/2024 Lab Requisition [facility] Pathology & Laboratory Medicine - [facility] [address] [place] [address] Outr Resulting Lab, Provider Social History Tobacco [...] Info) Description 10/27/2024 14:15 EST Office Visit [facility] Ophthalmology [facility] [address] [place] [address] Consuelo Nicole MD [address] [place] [address] documented as of this encounter Visit Diagnoses Not on filedocumented in this encounter Care Teams Corporate Strategist Relationship Specialty Start Date End Date Sharon Vargas MD [address] [facility] [place] [phone] PCP - General 09/09/15 documented as of this encounter
--- OUTSIDE RECORDS SUMMARY | 2024-10-20 19:28 | XMS_ITS | Encounter Summary ---
Author Organization [facility] Address [address] [place] [address] Care Team Providers Care Marine Electronics Technician Name Role Phone Sharon Vargas MD Primary Care Provider [phone] Reason for Visit * Reason Comments Eye Problem Encounter Details Date Type Department Care Team (Late st Contact Info) Description 03/16/2024 10:30 EDT Office Visit [facility] Ophthalmology - [address] [address] Hung Harp MD [address] [employer], [address] [place] [address] Social History Tobacco Use Types [...] mg bevacizumab Route: intravitreal, Site: Right Eye [facility]: [id number], Lot: [id number], Expiration date: 03/17/2024 Post-op Post injection exam [...] edema, with long-term current use of insulin ([facility]) OCT, RETINA - OU - BOTH [...] 10/27/2024 14:15 EST Office Visit [facility] Ophthalmology [address] [address] Consuelo Nicole MD [address] [place] [address] documented as of this encounter Procedures Procedure Name Priority Date/Time Associated Diagnosis Comments OCT, RETINA - OU - BOTH EYES Routine 03/16/2024 12:13 EDT Type 2 diabetes mellitus with both eyes affected by moderate nonproliferative retinopathy and macular edema, with long-term current use of insulin ([facility]) INTRAVITREAL INJECTION, PHARMACOLOGIC AGENT - OD - RIGHT EYE Routine 03/16/2024 12:04 EDT Type 2 diabetes mellitus with both eyes affected by moderate nonproliferative retinopathy and macular edema, with long-term current use of insulin ([facility]) documented in this encounter Results * OCT, RETINA - OU - BOTH EYES (03/16/2024 12:13 EDT) Narrative [facility] OPHTHALMOLOGY - 03/16/2024 12:13 EDT Right [...] Edited Result - Final Performing Organization Address [facility] de Phone Number [facility] OPHTHALMOLOGY * INTRAVITREAL INJECTION, PHARMACOLOGIC AGENT - OD - RIGHT EYE (03/16/2024 12:04 EDT) Narrative [facility] - 03/16/2024 12:13 EDT Time Out 03/16/2024. 11:56. Confirmed correct patient, procedure, site, and patient consented. Anesthesia Topical anesthesia was used. Anesthetic medications included Proparacaine 0.5%, Tetracaine 0.5%. Procedure Preparation included 5% betadine to ocular surface, eyelid speculum. A 30 gauge needle was used. Injection: 1.25 mg bevacizumab ??Route: intravitreal, Site: Right Eye ??[facility]: [id number], Lot: [id number], Expiration date: 03/17/2024 Post-op Post injection exam found visual acuity of at least counting fingers. The patient tolerated the procedure well. There were no complications. The patient received written and verbal post procedure care education. Post injection medications were not given. Hung Harp MD OPH CLINIC PROCEDURES Final Re sult Performing Organization Address [facility] de Phone Number [facility] documented in this encounter Visit Diagnoses Diagnosis Type 2 diabetes mellitus with both eyes affected by moderate nonproliferative retinopathy and macular edema, with long-term current use of insulin ([facility])- Primary Combined forms of age-related cataract [...] edema, with long-term current use of insulin ([facility]) Given 03/16/2024 12:13 EDT 1.25 mg Ri [...] all 4 quadrants. No alireza Care Teams Marine Electronics Technician Relationship Specialty Start Date End Date Sharon Vargas MD [address] [place] [address] PCP - General 09/09/15 documented as of this encounter
--- OUTSIDE RECORDS SUMMARY | 2024-10-20 19:28 | XMS_ITS | Encounter Summary ---
Author Organization [facility] Address [address] [place] [address] Care Team Providers Care Tow Truck Dispatcher Name Role Phone Sharon Vargas MD Primary Care Provider [phone] Encounter Details Date Type Department Care Team (Late Contact Info) Description 02/24/2024 Orders Only [facility] [address] [place], [place] [address] Consuelo Nicole MD [address] [place] [phone] Combined forms of age-related cataract of right [...] 10/27/2024 14:15 EST Office Visit [facility] Ophthalmology [facility] [address] [place], [place] [address] Consuelo Nicole MD [address] [place] [phone] documented as of this encounter Visit Diagnoses Diagnosis Combined forms of age-related cataract of right eye- Primary Other and combined forms of senile cataract documented in this encounter Care Teams Tow Truck Dispatcher Relationship Specialty Start Date End Date Sharon Vargas MD [address] [place] [address] PCP - General 09/09/15 documented as of this encounter
--- OUTSIDE RECORDS SUMMARY | 2024-10-20 19:29 | XMS_ITS | Encounter Summary ---
Author Organization [facility] Address [address] [place] [address] Care Team Providers Care Airbrush Artist Technical Name Role Phone Sharon Vargas MD Primary Care Provider [phone] Reason for Visit * Reason Onset Date Comments Appointment Related 11/09/2023 Encounter Details Date Type Department Care Team (Late st Contact Info) Description 11/09/2023 Telephone [facility] [address] [place], [place] [address] Consuelo Nicole MD [address] [place] [phone] Appointment Related Social History Tobacco Use Types [...] - 11/09/2023 1035 EST Unable to leave [facility] no mail box set up. Contacted primary to let them know and to [facility] with Dr. Nicole in 6 weeks for NPV dm exam per Dr. Nicole documented in this encounter Plan of Treatment Upcoming Encounters Date Type Department Care Team (Late st Contact Info) Description 10/27/2024 14:15 EST Office Visit [facility] [address] [place], [place] [address] Consuelo Nicole MD [address] [place] [phone] documented as of this encounter Visit Diagnoses Not on filedocumented in this encounter Care Teams Airbrush Artist Technical Relationship Specialty Start Date End Date Sharon Vargas MD [address] [place] [phone] PCP - General 09/09/15 documented as of this encounter
--- OUTSIDE RECORDS SUMMARY | 2024-10-20 19:29 | XMS_ITS | Encounter Summary ---
Author Organization [facility] Address [address] [place] [address] Care Team Providers Care Plastic Tubing Insulation Supervisor Name Role Phone Unavailable Primary Care Provider Unavailabl e Encounter Details Date Type Department Care Team (Late st Contact Info) Description 09/11/2002 [facility] Only [facility] [address] [place] [address] Penny Vaughan, EKATERINA [address] [place] [address] Social History Tobacco Use Types [...] Info) Description 10/27/2024 14:15 EST Office Visit [facility] [address] [place] [address] Consuelo Nicole MD [address] [place] [address] documented as of this encounter Procedures Procedure [...] ? LEA MCGOWAN ? Accession #: ? [id number] : ? 1975 (Age: 27) ??F ?Collect [...] ORDERABLES Final R esult NATHAN SETHI [address] [place] [address] documented in this encounter Visit Diagnoses Not on filedocumented in this encounter
--- OUTSIDE RECORDS SUMMARY | 2024-10-20 19:29 | XMS_ITS | Encounter Summary ---
Author Organization [facility] Address [address] [place] [address] Care Team Providers Care Credit Associate Name Role Phone Unavailable Primary Care Provider Unavailabl e Encounter Details Date Type Department Care Team (Late st Contact Info) Description 04/29/2001 Results Only [facility] conversion [address] [place] [address] [place] [address] Social History Tobacco Use Types Packs/Day Years [...] Info) Description 10/27/2024 14:15 EST Office Visit [facility] [address] [place] [address] Consuelo Nicole MD [address] [place] [address] documented as of this encounter Procedures Procedure [...] Name: ? SAELEA ? Accession #: ? [id number] : ? 1975 (Age: 26) ??F ?Collect [...] electronically signed by: ? QUINCY GUALLPA MD [facility] ? Report Date: ??05/06/2001 17:41 End of Report NATHAN SETHI 04/29/2001 05/04/2001 Lizbeth Wild CNM PATHOLOGY ORDERABLES Final Res ult NATHAN SETHI [address] [place] [address] documented in this encounter Visit Diagnoses Not on filedocumented in this encounter
--- OUTSIDE RECORDS SUMMARY | 2024-10-20 19:29 | XMS_ITS | Encounter Summary ---
Author Organization [facility] Address [address] [place] [address] Care Team Providers Care Regulator Operator Name Role Phone Unavailable Primary Care Provider Unavailabl e Encounter Details Date Type Department Care Team (Late st Contact Info) Description 05/30/2001 Results Only [facility] [address] [place] [address] Yoel Deleon MD [address] [place], [place] [address] Social History Tobacco Use Types Packs/Day Years [...] EST Office Visit [facility] [address] [place] [address] Consuelo Nicole MD [address] [place] [address] documented as of this encounter Procedures Procedure [...] ? LEA LAMAS ? Accession #: ? [id number] ? : ? 1975 (Age: 26) ??F [...] ??Serial sections reveal a pinpoint lumen. ??Two traffic representative cross sections are submitted as (A). Received in formalin labelled Lamas and right fallopian tube #2 is a cylindrical piece of ewing-pink fallopian tube which measures 1.1 cm in length and 0.6 cm in external diameter. ??Serial sections reveal a pinpoint lumen. ??Two traffic representative cross sections are submitted as (B). ??(Dr. Conroy-[place])/[facility] End of Report NATHAN SETHI 05/30/2001 05/30/2001 15: 59 EDT us Yoel Deleon MD PATHOLOGY ORDERABLES Final Resul t NATHAN SETHI [address] [place] [address] documented in this encounter Visit Diagnoses Not on filedocumented in this encounter
--- OUTSIDE RECORDS SUMMARY | 2024-10-20 19:29 | XMS_ITS | Encounter Summary ---
Author Organization [facility] Address [address] [place] [address] Care Team Providers Care Director Dental Services Name Role Phone Sharon Vargas MD Primary Care Provider [phone] Encounter Details Date Type Department Care Team (Late st Contact Info) Description 06/26/2021 Lab Requisition [facility] Pathology & Laboratory Medicine - [facility] [address] [place] [address] Outr Resulting Lab, Provider Social History Tobacco [...] Info) Description 10/27/2024 14:15 EST Office Visit [facility] Ophthalmology [facility] [address] [place] [address] Consuelo Nicole MD [address] [place] [address] documented as of this encounter Procedures Procedure [...] AL ORDERABLES Final Result Performing Organization Address City/[facility]/ZIP Co de Phone Number [facility] [address] [place] [address] * COVID-19 TESTING (06/25/2021 16:45 EDT) COVID-19 rt-PCR Result Negative Negative 06/27/2021 11:08 EDT [facility] Comment: This test has [...] performed using the jaron SARS-CoV-2 assay ([employer] on the Jaron 6800 System Performing Lab Jaron 6800 [facility] Lab 06/27/2021 11:08 EDT [facility] Swab 06/25/2021 16:4 5 EDT 06/26/2021 16:08 EDT us Provider Outr Resulting Lab MICROBIOLOGY - GENER AL ORDERABLES Final Result Performing Organization Address City/[facility]/ZIP Co de Phone Number [facility] [address] [place] [address] documented in this encounter Visit Diagnoses Not on filedocumented in this encounter Care Teams Director Dental Services Relationship Specialty Start Date End Date Sharon Vargas MD [address] [place] [phone] PCP - General 09/09/15 documented as of this encounter
--- OUTSIDE RECORDS SUMMARY | 2024-10-20 19:29 | XMS_ITS | Encounter Summary ---
Author Organization [facility] Address [address] [place] [address] Care Team Providers Care Information Writer Name Role Phone Sharon Vargas MD Primary Care Provider [phone] Reason for Referral * Consult, Test and Treat (Routine) - Receiving Office to Obtain Authorization Specialty Diagnoses / Procedures Referred By Johnnie eugene Referred To Contact Ophthalmology Diagnoses Type 2 diabetes mellitus with both eyes affected by moderate nonproliferative retinopathy without macular edema, with long-term current use of insulin ([facility]) Consuelo Nicole MD Phone: tel: fax: Hung Harp MD Phone: tel: fax: Referral ID Status Reason Start Date Expiration Date Visits Requested Visits Authorized [id number] Receiving Office to Obtain Authorization Specialty Services [...] Info) Description 12/29/2023 10:45 EDT Office Visit [facility] Ophthalmology [facility] [address] [place] [address] Consuelo Nicole MD [address] [place] [phone] Social History Tobacco Use Types Packs/Day Years [...] appointment is: 02/09/2024 at our office [address] [place], [place] Your surgery date for your first eye is: 03/23/2024 at [facility] (check in at Patient Registration). The Hospital will call you prior to the surgery with your report time. Your surgery date for your second eye is: 04/25/2024 documented in this encounter Progress Notes * Consuelo Nicole MD - 12/29/2023 1041 EDT Chief Complaint Patient presents with Diabetes [...] Psychiatric: Depression Endocrine: Diabetes Hematologic: Anemia Immunologic: Information Engineer: Exposures: None Other: Attestation: Base Eye Exam [...] lens. Refraction Manifest Refraction (Auto) Sphere Cylinder [place] Right -10.50 +2.25 154 Left -5.00 +2.50 035 Manifest Refraction #2 Sphere Cylinder [place] Right -7.25 +2.00 150 20/300 Left -3.75 Sphere 20/60 Cycloplegic Refraction Sphere Cylinder [place] Right -7.25 +2.00 150 Left [...] Office Visit [facility] Ophthalmology [address] [address] Consuelo Nicole MD [address] [place] [phone] Scheduled Referrals Name Type Priority Associated Diagnoses Orde r Schedule AMB CONS/FOLLOW UP OPHTHALMOLOGY Outpatient Referral Routine/Next Available Type 2 Diabetes Mellitus With Both Eyes Affected By Moderate Nonproliferative Retinopathy Without Macular Edema, With Long-Term Current Use Of Insulin ([facility]) Expected: 01/29/2024 (Approximate) , Expires: 12/28/2024 documented as of this encounter Procedures Procedure Name Priority Date/Time Associated Diagnosis Comments OCT, RETINA - OU - BOTH EYES Routine 12/29/2023 13:57 EDT Type 2 diabetes mellitus with both eyes affected by moderate nonproliferative retinopathy without macular edema, with long-term current use of insulin ([facility]) documented in this encounter Results * OCT, RETINA - OU - BOTH EYES (12/29/2023 13:57 EDT) Narrative [facility] OPHTHALMOLOGY - 12/29/2023 13:57 EDT OCT macula Right: signal strength: 2/10, thickness 268 microns, normal foveal contour, possible intraretinal fluid Left: signal strength: 5/10, thickness 234 microns, normal foveal contour, no intra/subretinal fluid us Consuelo Nicole MD OPHTH TOMOGRAPHY Final Resu lt [facility] OPHTHALMOLOGY documented in this encounter Visit Diagnoses Diagnosis Type 2 diabetes mellitus with both eyes affected by moderate nonproliferative retinopathy without macular edema, with long-term current use of insulin ([facility])- Primary Combined forms of age-related cataract of [...] lens. Manifest Refraction #1 (Auto) Sphere Cylinder [place] Right eye -10.50 +2.25 154 Left eye -5.00 +2.50 035 Manifest Refraction #2 Sphere Cylinder [place] Right eye -7.25 +2.00 150 20/300 Left eye -3.75 Sphere 20/60 Cycloplegic Refraction Sphere Cylinder [place] Right eye -7.25 +2.00 150 Left eye -3.75 +0.75 035 20/80+1 Care Teams Information Writer Relationship Specialty Start Date End Date Sharon Vargas MD [address] [place] [address] [place] [phone] PCP - General 09/09/15 documented as of this encounter
--- OUTSIDE RECORDS SUMMARY | 2024-10-20 19:29 | XMS_ITS | Encounter Summary ---
Author Organization [facility] Address [address] [place] [address] Care Team Providers Care Campaign Consultant Name Role Phone Sharon Vargas MD Primary Care Provider [phone] Encounter Details Date Type Department Care Team (Late st Contact Info) Description 01/02/2023 Lab Requisition [facility] Pathology & Laboratory Medicine - [facility] [address] [place] [address] Outr Resulting Lab, Provider Social History Tobacco [...] Info) Description 10/27/2024 14:15 EST Office Visit [facility] Ophthalmology [facility] [address] [place] [address] Consuelo Nicole MD [address] [place] [address] documented as of this encounter Procedures Procedure Name Priority Date/Time Associated Diagnosis Comments HCV RNA DETECT QUANT Today 01/01/2023 11:40 EDT HEPATITIS C AB W REFLEX TO HCV RNA BY PCR Routine 01/01/2023 11:40 EDT documented in this encounter Results * (ABNORMAL) HCV RNA DETECT QUANT (01/01/2023 11:40 EDT) HCV RNA Qualitative Detected( A) Undetected 01/04/2023 12:46 EDT [facility] HCV RNA Quantitative 3,370,000 (H) Undetected IU/mL 01/04/2023 12:46 EDT [facility] Blood VENOUS BLOOD / Unknown 01/01/2023 11:40 EDT 2023 15:59 EDT Narrative [facility] - 01/04/2023 12:46 EDT The quantification range of this assay is 15 IU/mL to 100,000,000 IU/mL. Testing was performed using the Jaron HCV test ([employer] with the jaron [employer] System. us Provider Outr Resulting Lab CHEMISTRY & BLOOD GA S ORDERABLES Final Result Performing Organization Address [facility]/ZIP Co de Phone Number [facility] [address] [place] [address] * (ABNORMAL) HEPATITIS C AB W REFLEX TO HCV RNA BY PCR (01/01/2023 11:40 EDT) Pathologist [facility] Hep C Antibody Reactive(A ) Negative 01/04/2023 10:01 EDT [facility] Comment: Supplemental testing for HCV RNA is ordered to rule out active HCV infection. Blood VENOUS BLOOD / Unknown 01/01/2023 11:40 EDT 2023 15:59 EDT us Provider Outr Resulting Lab CHEMISTRY & BLOOD GA S ORDERABLES Final Result Performing Organization Address City/[facility]/ZIP Co de Phone Number [facility] [address] [place] [address] documented in this encounter Visit Diagnoses Not on filedocumented in this encounter Care Teams Campaign Consultant Relationship Specialty Start Date End Date Sharon Vargas MD [address] [place] [phone] PCP - General 09/09/15 documented as of this encounter
--- OUTSIDE RECORDS SUMMARY | 2024-10-20 19:29 | XMS_ITS | Encounter Summary ---
Author Organization [facility] Address [address] [place] [address] Care Team Providers Care Field Associate Name Role Phone Sharon Vargas MD Primary Care Provider [phone] Encounter Details Date Type Department Care Team (Late st Contact Info) Description 08/23/2023 Documentation Visit [facility] Endoscopy [address] [place], [place] [address] Kain Cantu MD [facility] [address] [place] [address] Social History Tobacco Use Types [...] Info) Description 10/27/2024 14:15 EST Office Visit [facility] Ophthalmology - [place] [address] [place], [place] [address] Consuelo Nicole MD [address] [place] [phone] documented as of this encounter Visit Diagnoses Not on filedocumented in this encounter Care Teams Field Associate Relationship Specialty Start Date End Date Sharon Vargas MD [address] [place] [phone] PCP - General 09/09/15 documented as of this encounter
--- OUTSIDE RECORDS SUMMARY | 2024-10-20 19:29 | XMS_ITS | Encounter Summary ---
Author Organization [facility] Address [address] [place] [address] Care Team Providers Care Enterostomal Nurse Name Role Phone Sharon Vargas MD Primary Care Provider [phone] Reason for Visit * Reason Comments Eye Problem * Prior Authorization (Routine) - Authorized Specialty Diagnoses / Procedures Referred By Johnnie eugene Referred To Contact Diagnoses Diabetic macular edema ([facility]) Procedures HI INTRAVITREAL NJX PHARMACOLOGIC AGT SPX HI AFLIBERCEPT INJECTION HI BEVACIZUMAB INJECTION [address] [address] Phone: tel: fax: [address] [address] Phone: tel: fax: Referral ID Status Reason Start Date Expiration Date V isits Requested Visits Authorized [id number] Authorized 2 2 Encounter Details Date Type Department Care Team (Late st Contact Info) Description 02/11/2024 14:00 EDT Office Visit [address] [phone] Hung Harp MD [address] [place] [address], [facility] [address] [place] [address] Social History Tobacco Use Types [...] edema, with long-term current use of insulin ([facility]) OCT, RETINA - OU - BOTH [...] Info) Description 10/27/2024 14:15 EST Office Visit [facility] Ophthalmology [address] [address] Consuelo Nicole MD [address] [place] [address] documented as of this encounter Procedures Procedure Name Priority Date/Time Associated Diagnosis Comments OCT, RETINA - OU - BOTH EYES Routine 02/11/2024 14:36 EDT Type 2 diabetes mellitus with both eyes affected by moderate nonproliferative retinopathy without macular edema, with long-term current use of insulin ([facility]) documented in this encounter Results * OCT, RETINA - OU - BOTH EYES (02/11/2024 14:36 EDT) Narrative [facility] OPHTHALMOLOGY - 02/11/2024 16:43 EDT Right Eye Quality was poor. Scan locations included juxtafoveal. Progression has improved. Findings include intraretinal fluid. Left Eye Quality was borderline. Progression has been stable. Findings include normal foveal contour. Notes Some inner retinal atrophy both eyes OCT-A enlarged CJ left eye (poor signal right eye us Hung Harp MD OPHTH TOMOGRAPHY Final Result [facility] OPHTHALMOLOGY documented in this encounter Visit Diagnoses Diagnosis Type 2 diabetes mellitus with both eyes affected by moderate nonproliferative retinopathy without macular edema, with long-term current use of insulin ([facility])- Primary Combined forms of age-related cataract [...] all 4 quadrants. No alireza Care Teams Enterostomal Nurse Relationship Specialty Start Date End Date Sharon Vargas MD [address] [place] [phone] PCP - General 09/09/15 documented as of this encounter
--- OUTSIDE RECORDS SUMMARY | 2024-10-20 19:29 | XMS_ITS | Encounter Summary ---
Author Organization [facility] Address [address] [place] [address] Care Team Providers Care Composition Worker Name Role Phone Unavailable Primary Care Provider Unavailabl e Encounter Details Date Type Department Care Team (Latest Contact Info) Description 04/03/2003 19:00 EDT Hospital Encounter [facility] Emergency Department - Main [place] [address] [place], [place] [address] Emergency, Default, MD Discharge Disposition: Home or [...] 10/27/2024 14:15 EST Office Visit [facility] Ophthalmology [facility] [address] [place] [address] Consuelo Nicole MD [address] [place] [address] documented as of this encounter Procedures Procedure [...] ? LEA MCGOWAN ? Accession #: ? [id number] ? : ? 1975 (Age: 34) ??F [...] reviewed and electronically signed by: ? Marie [place], [place](ASCP) ? Report Date: ??07/03/2009 14:12 ? End of Report ? NATHAN SETHI 06/26/2009 06/28/2009 us Sharon Vargas MD PATHOLOGY ORDERABLES Final Res ult NATHAN SETHI [address] [place] [address] documented in this encounter Visit Diagnoses Not on filedocumented in this encounter
--- OUTSIDE RECORDS SUMMARY | 2024-10-20 19:29 | XMS_ITS | Encounter Summary ---
Author Organization [facility] Address [address] [place] [address] Care Team Providers Care Forest Botany Instructor Name Role Phone Unavailable Primary Care Provider Unavailabl e Encounter Details Date Type Department Care Team (Late st Contact Info) Description 07/03/1999 11:27 EDT Hospital Encounter [facility] - [facility] [address] [place] [address] Sarah MartinezJASON V[place] [id number] [place] [address] Unknown, Provider, Social History Tobacco Use Types [...] Info) Description 10/27/2024 14:15 EST Office Visit [facility] Ophthalmology [facility] [address] [place] [address] Consuelo Nicole MD [address] [place] [phone] documented as of this encounter Visit Diagnoses Not on filedocumented in this encounter
--- OUTSIDE RECORDS SUMMARY | 2024-10-20 19:29 | XMS_ITS | Encounter Summary ---
Author Organization [facility] Address [address] [place] [address] Care Team Providers Care Calender Tender Name Role Phone Sharon Vargas MD Primary Care Provider [phone] Encounter Details Date Type Department Care Team (Late st Contact Info) Description 04/21/2023 Lab Requisition [facility] Pathology & Laboratory Medicine - [facility] [address] [place] [address] Outr Resulting Lab, Provider Social History Tobacco [...] 10/27/2024 14:15 EST Office Visit [facility] [address] [place] [address] Consuelo Nicole MD [address] [place] [address] documented as of this encounter Procedures Procedure Name Priority Date/Time Associated Diagnosis Comments ANAEROBE CULTURE, REFERENCE Routine 04/21/2023 14:17 EDT documented in this encounter Results * ANAEROBE CULTURE, REFERENCE (04/21/2023 14:17 EDT) Organism ID No Anaerobes Isolated 05/01/2023 12:00 EDT [facility] Tissue ENTIRE TOE / Unknown 04/21/2023 14:17 EDT 04/21/2023 21:25 EDT us Provider Outr Resulting Lab MICROBIOLOGY - GENER AL ORDERABLES Final Result Performing Organization Address City/State/[facility] Co de Phone Number [facility] [address] [place] [address] documented in this encounter Visit Diagnoses Not on filedocumented in this encounter Care Teams Calender Tender Relationship Specialty Start Date End Date Sharon Vargas MD [address] [place] [address] PCP - General 09/09/15 documented as of this encounter
--- OUTSIDE RECORDS SUMMARY | 2024-10-20 19:29 | XMS_ITS | Encounter Summary ---
Author Organization [facility] Address [address] [place] [address] Care Team Providers Care Director Game Name Role Phone Sharon Henderson MD Primary Care Provider [phone] Encounter Details Date Type Department Care Team (Late st Contact Info) Description 10/19/2018 Results Only [facility] [phone] Sharon Henderson MD [address] [place] [address] Social History Tobacco Use Types [...] Info) Description 10/27/2024 14:15 EST Office Visit [facility] [address] [place] [address] Consuelo Nicole MD [address] [place] [address] documented as of this encounter Procedures Procedure [...] types 16,18,31,33,35, 39,45,51,52,56,58, 59,66, and 68 by registered nurse obstetrics mediated amplification. Comments Document reviewed and electronically signed by: ? System Interface ? Report date: 10/28/2018 By the signature above, the attending physician certifies that he/she has personally conducted a gross and/or microscopic examination of the described specimens and rendered or confirmed the above diagnosis. End of Report [facility] 10/19/2018 10/21/2018 us Sharon Henderson MD PATHOLOGY ORDERABLES Final Res ult [facility] [address] [place] [address] documented in this encounter Visit Diagnoses Not on filedocumented in this encounter Care Teams Director Game Relationship Specialty Start Date End Date Sharon Henderson MD [address] [place] [phone] PCP - General 09/09/15 documented as of this encounter
--- OUTSIDE RECORDS SUMMARY | 2024-10-20 19:29 | XMS_ITS | Encounter Summary ---
Author Organization [facility] Address [address] [place] [address] Care Team Providers Care Lard Maker Name Role Phone Sharon Vargas MD Primary Care Provider [phone] Encounter Details Date Type Department Care Team (Late st Contact Info) Description 12/03/2015 Abstract [facility] Nephrology - [address] [address] Junaid Olivarez MD [address] [place] [address], [address] [place] [address] Social History Tobacco Use Types [...] Info) Description 10/27/2024 14:15 EST Office Visit [facility] Ophthalmology [facility] [address] [place] [address] Consuelo Nicole MD [address] [place] [phone] documented as of this encounter Procedures Procedure Name Priority Date/Time Associated Diagnosis Comments GLUCOSE, SERUM Routine 10/29/2015 URINE IBEYNXT-KC-LCKPYSVHVL RATIO (ACR) Routine 10/16/2015 COMPREHENSIVE METABOLIC PANEL (CMP) Routine 02/18/2015 COMPLETE BLOOD COUNT Routine 05/28/2014 HEMOGLOBIN A1C Routine 05/28/2014 COMPREHENSIVE METABOLIC PANEL (CMP) Routine 05/28/2014 documented in this encounter Results * GLUCOSE, SERUM (10/29/2015) Glucose, Serum, External 113 [facility] Blood specimen (specimen) 10/29/2015 Sharon Vargas MD CHEMISTRY & BLOOD GAS ORDERABL ES Final Result Performing Organization Address [facility]/ZIP Co de Phone Number [facility] * ALBUMIN, URINE (10/16/2015) Microalb ug/mg Crea, External 312.7 [facility] Microalb mg/dl, External 84.7 [facility] Creatinine, Random U (UCRR), External 27.09 [facility] Urine specimen (specimen) 10/16/2015 Shaorn Vargas MD CHEMISTRY & BLOOD GAS ORDERABL ES Edited Result - Final Performing Organization Address [facility]/ZIP Co de Phone Number [facility] [...] ORDERABL ES Final Result Performing Organization Address [facility]/ZIP Co de Phone Number [facility] * COMPREHENSIVE METABOLIC PANEL (CMP) (05/28/2014) GFR, Calculated, External >60 [facility] Glucose, Serum, External 151 [facility] Albumin, External 2.9 [facility] Total Alkaline Phosphatase, External 137 [facility] ALT, External 86 [facility] AST, External 81 [facility] BUN, External 9 [facility] Calculated Calcium, External [facility] Calcium, External 8.0 [facility] Chloride, External 104 [facility] CO2, External 28.8 [facility] Creatinine, External 0.5 [facility] Fasting?, External [facility] Potassium, External 4.2 [facility] Sodium, External 140 [facility] Total Protein, External 6.4 [facility] Bilirubin, Total, External 0.2 [facility] Blood specimen (specimen) 05/28/2014 Sharon Vargas MD CHEMISTRY & BLOOD GAS ORDERABL ES Final Result Performing Organization Address City/[facility]/ZIP Co de Phone Number [facility] * HEMAGRAM (05/28/2014) HCT, External 35.7 [facility] MCH, External [facility] MCV, External [facility] MCHC, External [facility] Hemoglobin, External 11.4 [facility] WBC, External 7.76 [facility] RBC, External 3.83 [facility] PLT, External 461 [facility] RDW-CV, External [facility] [...] 4 added in this encounter Care Teams Lard Maker Relationship Specialty Start Date End Date Sharon Vargas MD [address] [place] [address] PCP - General 09/09/15 documented as of this encounter
--- OUTSIDE RECORDS SUMMARY | 2024-10-20 19:29 | XMS_ITS | Encounter Summary ---
Author Organization [facility] Address [address] [place] [address] Care Team Providers Care Ore Crusher Name Role Phone Sharon Henderson MD Primary Care Provider [phone] Encounter Details Date Type Department Care Team (Late st Contact Info) Description 12/09/2016 Results Only [facility] [phone] Sharon Henderson MD [address] [place] [address] Social History Tobacco Use Types [...] Info) Description 10/27/2024 14:15 EST Office Visit [facility] [address] [place] [address] Consuelo Nicole MD [address] [place] [address] documented as of this encounter Procedures Procedure [...] ? FE LEA ? Accession #: ? [id number] ? : ? 1975 (Age: 41) ??F [...] 33,35,39,45,51,52, 56,58,59,66, and 68 is detected by shipping lead person mediated amplification. High and intermediate risk HPV [...] confirmed the above diagnosis. End of Report [facility] 12/09/2016 12/14/2016 us Sharon Henderson MD PATHOLOGY ORDERABLES Final Res ult [facility] [address] [place] [address] documented in this encounter Visit Diagnoses Not on filedocumented in this encounter Care Teams Ore Crusher Relationship Specialty Start Date End Date Sharon Henderson MD [address] [place] [phone] PCP - General 09/09/15 documented as of this encounter
--- OUTSIDE RECORDS SUMMARY | 2024-10-20 19:29 | XMS_ITS | Encounter Summary ---
Author Organization [facility] Address [address] [place] [address] Care Team Providers Care Apparatus Lineman Name Role Phone Unavailable Primary Care Provider Unavailabl e Encounter Details Date Type Department Care Team (Late st Contact Info) Description 01/15/2000 Results Only [facility] conversion [address] [place] [address] Yoel Deleon MD [address] [place], [place] [phone] Social History Tobacco Use Types Packs/Day Years [...] Info) Description 10/27/2024 14:15 EST Office Visit [facility] [address] [place] [address] Consuelo Nicole MD [address] [place] [address] documented as of this encounter Procedures Procedure [...] ? LEA MCGOWAN ? Accession #: ? [id number] : ? 1975 (Age: 25) ??F ?Collect Date: ? 01/15/2000 Location: ?Receive Date: ? 01/15/2000 Provider: ?YOEL DELEON MD Copy to: ?YOEL DELEON MD ? Specimen/Source: ?Pap Smear (One Slide) Last Menstrual Period: ? GYNECOLOGIC ??CYTOPATHOLOGY ??REPORT Name: LEA MCGOWAN ? FA : 1975 ?? 25Y F ?Client ID: [id number] SS#: [id number] ? Clinician: YOEL DELEON MD ?? Location: [facility] ??Copy to: ?? Specimen: ?Pap Smear [...] Faye, SCT(ASCP) ? Report Date: ?? 01/22/2000 [employer] Archived Tests - Final Diagnosis Text Field: Clinical History : ? Document reviewed and electronically signed by: ? Conversion ? Report Date: ??01/22/2000 00:00 End of Report [facility] 01/15/2000 13:2 4 EST 01/15/2000 13:25 EST us Yoel Deleon MD PATHOLOGY ORDERABLES Final Resul t Performing Organization Address City/State/[facility] Co de Phone Number [facility] [address] [place] [address] documented in this encounter Visit Diagnoses Not on filedocumented in this encounter
--- OUTSIDE RECORDS SUMMARY | 2024-10-20 19:29 | XMS_ITS | Encounter Summary ---
Author Organization [facility] Address [address] [place] [address] Care Team Providers Care Amusement Ride Inspector Name Role Phone Sharon Vargas MD Primary Care Provider [phone] Encounter Details Date Type Department Care Team (Latest Contact Info) Description 03/27/2016 8:14 EDT - 03/27/2016 23:59 EDT Hospital Encounter [facility] [address] [place] [address] Unknown, Provider, MD Discharge Disposition: Home or [...] Code Departure Means Destination Home or Self Skilled Nursing documented in this encounter Plan of Treatment Upcoming Encounters Date Type Department Care Team (Late st Contact Info) Description 10/27/2024 14:15 EST Office Visit [facility] Ophthalmology [facility] [address] [place] [address] Consuelo Nicole MD [address] [place] [address] documented as of this encounter Visit Diagnoses Not on filedocumented in this encounter Care Teams Amusement Ride Inspector Relationship Specialty Start Date End Date Sharon Vargas MD [address] [place] [address] PCP - General 09/09/15 documented as of this encounter
--- OUTSIDE RECORDS SUMMARY | 2024-10-20 19:29 | XMS_ITS | Encounter Summary ---
Author Organization [facility] Address [address] [place] [address] Care Team Providers Care Leather Fitter Name Role Phone Sharon Vargas MD Primary Care Provider [phone] Encounter Details Date Type Department Care Team (Late st Contact Info) Description 04/01/2022 Lab Requisition [facility] Pathology & Laboratory Medicine - [facility] [address] [place] [address] Outr Resulting Lab, Provider Social History Tobacco [...] 10/27/2024 14:15 EST Office Visit [facility] [address] [place] [address] Consuelo Nicole MD [address] [place] [address] documented as of this encounter Procedures Procedure Name Priority Date/Time Associated Diagnosis Comments GGT Routine 04/01/2022 14:29 EDT documented in this encounter Results * (ABNORMAL) GGT (04/01/2022 14:29 EDT) GGT 224(H) <44 U/L 04/01/2022 21:22 EDT [facility] Blood VENOUS BLOOD / Unknown 04/01/2022 14:29 EDT 04/01/2022 21:09 EDT us Provider Outr Resulting Lab CHEMISTRY & BLOOD GA S ORDERABLES Final Result Performing Organization Address City/State/[facility] Co de Phone Number [facility] [address] [place] [address] documented in this encounter Visit Diagnoses Not on filedocumented in this encounter Care Teams Leather Fitter Relationship Specialty Start Date End Date Sharon Vargas MD [address] [place] [address] PCP - General 09/09/15 documented as of this encounter
--- OUTSIDE RECORDS SUMMARY | 2024-10-20 19:29 | XMS_ITS | Encounter Summary ---
Author Organization [facility] Address [address] [place] [address] Care Team Providers Care Equipment Service Technician Name Role Phone Sharon Vargas MD Primary Care Provider [phone] Encounter Details Date Type Department Care Team (Late st Contact Info) Description 03/27/2016 Historical Results Only [facility] Radiology Results [address] [place] [address] Roberth Osborne MD Social History Tobacco Use [...] Info) Description 10/27/2024 14:15 EST Office Visit [facility] [address] [place] [address] Consuelo Nicole MD [address] [place] [phone] documented as of this encounter Procedures Procedure [...] CC: ? Transcribed Date/Time: 03/27/2016 (2008) ? Industrial Sales Manager: ? Printed Date/Time: 03/31/2019 (31) ? PAGE [...] Gan MD CC: Transcribed Date/Time: 03/27/2016 (2008) Industrial Sales Manager: Printed Date/Time: 03/31/2019 (0032) PAGE 1 Signed Report us Roberth Osborne MD IMG DIAGNOSTIC IMAGING ORDERABL ES Final Result documented in this encounter Visit Diagnoses Not on filedocumented in this encounter Care Teams Equipment Service Technician Relationship Specialty Start Date End Date Sharon Vargas MD [address] [place] [address] PCP - General 09/09/15 documented as of this encounter
--- OUTSIDE RECORDS SUMMARY | 2024-10-20 19:29 | XMS_ITS | Encounter Summary ---
Author Organization [facility] Address [address] [place] [address] Care Team Providers Care Marine Electrician Name Role Phone Sharon Vargas MD Primary Care Provider [phone] Reason for Visit * Reason Onset Date Comments Follow-up 12/29/2023 Encounter Details Date Type Department Care Team (Late st Contact Info) Description 12/29/2023 Telephone [facility] [address] [place], [place] [address] Verna Cerna COA Follow-up Social History Tobacco [...] Info) Description 10/27/2024 14:15 EST Office Visit [facility] [address] [place] [address] Consuelo Nicole MD [address] [place] [phone] documented as of this encounter Visit Diagnoses Not on filedocumented in this encounter Care Teams Marine Electrician Relationship Specialty Start Date End Date Sharon Vargas MD [address] [place] [address] PCP - General 09/09/15 documented as of this encounter
--- OUTSIDE RECORDS SUMMARY | 2024-10-20 19:29 | XMS_ITS | Encounter Summary ---
Author Organization [facility] Address [address] [place] [address] Care Team Providers Care Reception Agent Name Role Phone Sharon Vargas MD Primary Care Provider [phone] Encounter Details Date Type Department Care Team (Late st Contact Info) Description 09/20/2023 [facility] [address] [place] [phone] Salome Myles MD [address] [place] [phone] Social History Tobacco Use Types Packs/Day [...] Description 10/27/2024 14:15 EST [facility] [address] [place] [address] Consuelo Nicole MD [address] [place] [phone] documented as of this encounter Visit Diagnoses Not on filedocumented in this encounter Care Teams Reception Agent Relationship Specialty Start Date End Date Sharon Vargas MD [address] [place] [phone] PCP - General 09/09/15 documented as of this encounter
[2024-10-23 10:27] LABS: C3 Complement 151 mg/dL (81-157); C4 Complement 28 mg/dL (13-39)
[2024-10-23 10:48] LABS: Hepatitis B Surface Ag Negative (Negative)
[2024-10-23 11:27] LABS: Hep A Total Ab w Rflx IgM Negative (Negative)
[2024-10-23 11:46] LABS: Hep B Core Antibody Negative (Negative)
[2024-10-23 14:48] LABS: ANA Interpretation Positive (Negative); ANA Titer Pattern 1:160 Speckled
== END 2024-10-20 19:17 | disposition home or self-care (01) ==
LOC: NCHCN 19:16
PROVIDERS: PCP Family Medicine; Visit Provider Family Medicine
DX: K74.60 Unspecified cirrhosis of liver (principal); N17.9 Acute kidney failure, unspecified
CPT/HCPCS: 86704; 86709; 87340; 82565; 84156; 85610; 85730; 86038; 86160

== ENCOUNTER 2024-10-25 13:58 | Outpatient (REF) | payer MEDICARE, MEDICAID, SELFPAY ==
--- OUTSIDE RECORDS SUMMARY | 2024-10-25 14:00 | XMS_ITS | Clinical Summary ---
Author Organization [facility] [place] [address] Care Team Providers Care Housefellow Name Role Phone Penny Javed APRN Primary Care Provider + Encounters Date Type Department Care Team Description 10/07/2024 Interpretation Only [facility] in [address] [phone] Elmer Vaz Jr., MD from [...] (10/07/2024 2:31 PM EST) PT CLASS E [facility] ADMITDTTM [id number] [facility] PT [facility] INFO [id number]^HUSEYIN ^ELMER^J [facility] EXAM DESC CTAPWO^CT ABD PELVIS WO IV OR ORAL CONTRAST^RIS [facility] WORKSTATION ID [id number] [facility] Anatomical Region Laterality Modality Abdomen, Pelvis Computed [...] who have questions please contact the health intensive care unit nurse that requested your imaging first. ? Electronically signed by: Júnior Vick MD, [facility] ([phone]), at 10/07/2024 3:51 PM Narrative 10/07/2024 3:51 PM EST EXAMINATION: CT [...] patients who have questions please contactthe health intensive care unit nurse that requested your imaging first. Electronically signed by: Júnior Vick MD, [facility]([phone]), at 10/07/2024 3:51 PM Elmer Vaz Jr., MD IMG CT ORDERABLE S from Last 3 Months Care Teams Housefellow Relationship Specialty Start Date End Date Penny Javed APRN PCP - General 09/09/10
--- OUTSIDE RECORDS SUMMARY | 2024-10-25 14:01 | XMS_ITS | Encounter Summary ---
Author Organization [facility] [place] [address] Care Team Providers Care Carpet Sewing Machine Operator Name Role Phone Penny Javed APRN Primary Care Provider + Encounter Details Date Type Department Care Team (Late st Contact Info) Description 10/07/2024 Interpretation Only [facility] in [facility] [address] [place] [address] Elmer Vaz Jr., MD [address] [place] [address] Social History Tobacco Use Types [...] PM EST) PT CLASS E RAD ADMITDTTM [id number] RAD PT RAD INFO [id number]^HUSEYIN ^ELMER^Cheli RAD EXAM DESC CTAPWO^CT ABD PELVIS WO IV OR ORAL CONTRAST^RIS [facility] WORKSTATION ID [id number] [facility] Anatomical Region Laterality Modality Abdomen, [...] who have questions please contact the health hospice spiritual care coordinator that requested your imaging first. ? Electronically signed by: Júnior Vick MD, [facility] ([phone]), at 10/07/2024 3:51 PM Narrative 10/07/2024 3:51 [...] patients who have questions please contactthe health hospice spiritual care coordinator that requested your imaging first. Electronically signed by: Júnior Vick MD, [facility]([phone]), at 10/07/2024 3:51 PM Elmer Vaz Jr., MD IMG CT ORDERABLE S documented in this encounter Visit Diagnoses Not on filedocumented in this encounter Care Teams Carpet Sewing Machine Operator Relationship Specialty Start Date End Date Penny Javed, CORNELIA PCP - General 09/09/10 documented as of this encounter
--- OUTSIDE RECORDS SUMMARY | 2024-10-25 14:01 | XMS_ITS | Data Portability ---
Author Organization [place] - [facility], [facility] Address Sebastián Parker [facility] [place] [address] Care Team Providers Care Team Automobile Assembler Name Role Phone [facility] OPHTHALMOLOGY [facility] Ophtha lmologist RACHELL FIORE Printing Sign Machine Operator Assessment Encounter Date Assessment Date Assessment LastModified [...] She is under the care of a warm in at [facility], Elbert Oliver. - Plan: a. Encourage patient to schedule an appointment for toenail trimming and routine foot care with her warm in. COPD and Shortness of Breath - Assessment: Patient experiences increased shortness of breath and currently uses albuterol. She has a refill for Breo and expresses interest in trying Trelegy. - Plan: a. Prescribe Trelegy and send the prescription to [facility]. b. Advise patient to continue using Breo as prescribed. c. Schedule a follow-up in one month to monitor breathing and lung function. Sleep Apnea - Assessment: Patient reports symptoms indicative of sleep apnea, including mouth breathing, gasping for air, and waking abruptly due to breathing difficulties. - Plan: a. Refer patient for a sleep study at [facility] to assess for sleep apnea and evaluate [...] - Plan: a. Provide information on the [facility] [...] devoted to today's encounter, including both the lqxp-jy-pfhz time with the patient and/or family/caregiver and eao-mrja-sz-face time I personally spent is 40 minutes. [email or web address] Not available 09/01/2024 16:11:48 10/06/2024 10/06/2024 Patient [...] - Plan: a. Order liver ultrasound at [facility]. b. Perform Hepatitis C viral [...] with a document listing completed preventive services. [email or web address] Not available 10/06/2024 15:38:27 10/19/2024 10/19/2024 The total time devoted to today's encounter, including both the bjyz-te-vbxq time with the patient and/or family/caregiver and xay-alel-xo-face time I personally spent is 120 minutes. Not available 10/19/2024 17:04:21 Plan of Treatment Reminders Order Date Submit Date Provider Last Modified By Organization Details Last Modified Time Details Appointments Nurse Visit 2024 01:00P M [facility] Nursing Staff Not available Not available Not available Follow Up 2024 01:50P M SHARON HENDERSON Not available Not available Not available Follow Up 2024 02:30P M SHARON HENDERSON Not available Not available Not available Lab hemoglobi n A1C, fingersti ck 2023 024 [email or web address] [facility], [address] [place], [address], 09/02/2024 08:08:00 CMP, serum or plasma 2023 024 [facility] (Registration ), [address] [place] [address] [place], [address], 10/06/2024 23:19:49 CBC w/ auto diff 2023 024 [facility] (Registration ), [address] [place] [address] [place], [address], 10/06/2024 23:05:50 hepatitis C virus RNA, quant, PCR, serum or plasma [address] [facility] (Registration ), [address] [place] [address] [place], [address], 10/10/2024 09:29:40 lipid panel, serum [address] [facility] (Registration ), [address] [place] [address] [place], [address], 10/10/2024 09:29:20 venipunct ure [email or web address] [facility] (Registration ), [address] [place] [address] [place], [address], 10/19/2024 16:45:03 INR, blood 2024 025 [facility] (Registration ), [address] [place] [address] [place], [address], 10/25/2024 13:55:26 HBsAg (hepatiti s B surface Ag), serum 2024 025 [email or web address] [facility] (Registration ), [address] [place] [address] [place], [address], 10/20/2024 13:40:12 hepatitis B core Ab, total, serum 2024 025 [facility] (Registration ), [address] [place] [address] [place], [address], 10/23/2024 14:29:09 hepatitis A Ab, total, serum [address] [facility] (Registration ), [address] [place] [address] [place], [address], 10/20/2024 13:40:12 partial thrombopl astin time 2024 025 [facility] (Registration ), [address] [place] [address] [place], [address], 10/25/2024 14:00:49 prothromb in time [address] [facility] (Registration ), [address] [place] [address] [place], [address], 10/20/2024 13:40:12 protein:c reatinine ratio, urine [address] [facility] (Registration ), [address] [place] [address] [place], [address], 10/20/2024 13:54:40 C3 + C4 (compleme nt), serum 2024 025 [facility] (Registration ), [address] [place] [address] [place], [address], 10/20/2024 13:40:41 DEIDRE (antinucl ear antibodie s) screen, serum 2024 025 [facility] (Registration ), [address] [place] [address] [place], [address], 10/20/2024 13:40:41 Referral podiatris t referral - well known to Dr. Valentino , (over)due for nail/foot care adn general f/u. 2023 024 [email or web address] [facility], [address] [place], [address], 10/16/2024 04:49:35 sleep medicine referral - witnessed nocturnal apnea, pt with obesity, COPD, chronic opioid dependenc e; eval for central vs obstructi ve sleep apnea [address] [facility], [address] [place], [address], 10/05/2024 06:58:37 physical therapist referral - generaliz ed weakness/ deconditi oning related to cirrhosis , diabetic neuropath y and visual impairmen t. would like to work on general strengthe lynnette and balance. 2023 024 [facility], [address] [place] [address], [address], 10/06/2024 15:55:22 nephrolog ist referral - thank you for agreeing to see her soon. labs and renal u/s have been ordered and hope to have results to you soon. new dx stage 5 CKD. 2024 025 MATTHEW Fiore MD, [address] [place], [address], 10/20/2024 09:00:46 Procedures None recorded. Surgeries None recorded. Imaging US, liver - known cirrhosis , assess degree of fibrosis for Hep C treatment [address] - Radiology, [address] [place], [address], 10/20/2024 06:58:14 US, kidney - CHELSEA; pt with stage 5 CKD, need to prepare for possible dialysis. cc results to Dr. Fiore, [facility] nephrolog y 2024 025 [facility] - Radiology, [address] [place], [address], 10/20/2024 13:15:28 Medication Orders Trelegy Ellipta 200 mcg-62.5 mcg-25 mcg powder for inhalatio n 2023 [employer] [address], [place], [address], 10/06/2024 14:45:17 atorvasta tin 40 mg tablet 2023 [email or web address] [employer] [address], [address], [place], [address], 09/02/2024 08:08:00 escitalop karlo 10 mg tablet 2023 [email or web address] [employer] [address], [address], [place], [address], 10/19/2024 11:43:11 omeprazol e 40 mg capsule,d elayed release 2023 [id number] [employer] [address], [address], [place], [address], 09/02/2024 08:08:00 amlodipin e 5 mg tablet 2023 [email or web address] [employer] [address], [place], [address], 09/02/2024 08:08:00 Diovan HCT 320 mg-25 mg tablet 2023 KATHE [employer] [address], [address], [place], [address], 10/19/2024 11:44:52 amitripty line 25 mg tablet 2023 [email or web address] [employer] [address], [place], [address], 09/02/2024 08:08:00 Tresiba FlexTouch U-200 insulin 200 unit/mL (3 mL) subcutane ous pen 2023 [employer] [address], [place], [address], 10/19/2024 11:50:52 metformin ER 500 mg tablet,ex tended release 24 hr 2023 [employer] [address], [address], [place], [address], 10/19/2024 11:51:21 Accu-Chek Guide test strips 2023 [email or web address] [employer] [address], [address], [place], [address], 09/02/2024 08:08:00 Glucagon (HCl) Emergency Kit 1 mg solution for injection 2023 [employer] [address], [place], [address], 10/06/2024 15:38:32 Breo Ellipta 200 mcg-25 mcg/dose powder for inhalatio n 2023 [employer] [address], [place], [address], 10/06/2024 15:38:32 Patient TargetsNo targets recorded. Patient Instructions Encounter Date Encounter Id Patient Instructions Last Modified By Organization Details Last Modified Time 09/01/2024 [id number] advised to quit smoking [email or web address] Not available 09/01/2024 16:09:15 Dear Lea, Thank [...] on medications. - Sleep study referral to [facility] for sleep apnea evaluation. - Contact [facility] for toenail trimming appointment. - Stool sample test and mammogram to be scheduled after Wednesday. - Lifestyle Adjustments: - Continue efforts to reduce smoking. - Ensure proper diet and manage meal preparations, possibly with assistance from [employer] Whe[employer]. - Support Services: - Contact [facility] [...] best in your health endeavors. Warm regards, Sharon Henderson MD Family Medicine [email or web address] Not available 09/01/2024 16:11:10 10/06/2024 [id number] Date: WedOct 06 2024 Dear Lea, Thank you for visiting us today. We appreciate your commitment to improving your health and managing your conditions effectively. Here's a summary of our discussion and the next steps for your treatment plan: - Blood Work: Complete tests for liver function, kidney function, cholesterol, and Hep C viral load. - Medications: supply controller your Trelegy inhaler. - Ultrasound: Schedule an ultrasound of your liver at [facility] to assess the degree of [...] building. - Additional Support: Engage with the [facility] and Meals on [...] contact our office. Wishing you a Merry [place] and a Happy New Year! Best regards, Dr. Sharon Henderson MD Family Medicine [email or web address] Not available 10/06/2024 15:38:01 Discussed and explained advance directives such as standard forms to the {{patient caregiver pa tient and caregiver}}. Face to face discussion lasted for a duration of ___ minutes. [email or web address] Not available 10/05/2024 17:30:53 10/19/2024 [id number] Dear Lea, Thank you for coming in today for your follow-up visit. I appreciate your dedication to managing your health, especially after your recent hospitalization for acute renal failure. Here is a summary of the rpado instructions we discussed today: - Medications: - [...] hesitate to contact our office. Best regards, Sharon Henderson MD Family Medicine Not available 10/19/2024 15:22:00 Reason for Referral Sleep Medicine Referral for Sleep apnea witnessed nocturnal apnea, pt with obesity, COPD, chronic opioid dependence; eval for central vs obstructive sleep apnea Referring Physician: Sharon Henderson Family Medicine, Encounter Date: 09/01/2024 Commercial Sheet Metal Foreman Referral for Toen ail thickened well known to Dr. Valentino, (over)due for nail/foot care adn general f/u. Referring Physician: Family Darcy Bolivar, Encounter Date: 09/01/2024 Physical Therapist Referral for Muscle weakness generalized weakness/deconditioning related to cirrhosis, diabetic neuropathy and visual impairment. would like to work on general strengthening and balance. Referring Physician: Family Rebecca Medicine, Encounter Date: 10/06/2024 Printing Sign Machine Operator Referral for Re nal failure syndrome thank you for agreeing to see her soon. labs and renal u/s have been ordered and hope to have results to you soon. new dx stage 5 CKD. Referring Physician: Sharon Henderson, Family Medicine, Encounter Date: 10/19/2024 Results Created Date Observation Date Name Description Value Unit Range Abnormal Flag Note LastModifiedBy Organization Detail LastModifiedTime 09/01/20 24 09/01/2024 hemog lobin A1C, finge rstic k hemoglobin A1C 6.6 % <5.7 Not Available [facility] [address] [facility], [place], [address], 09/01/2024 15:49:53 10/06/20 24 10/06/2024 COMPL ETE BLOOD COUNT W/DIF F WBC 16.37 10_3/ uL 4.4-10 .8 high Not Available [address] [place], [address] 10/06/2024 23:05:49 10/06/20 24 10/06/2024 COMPL ETE BLOOD COUNT W/DIF F RBC 4.23 10_6/ uL 3.93-5 .22 normal Not Available [address] [place], [address] 10/06/2024 23:05:49 10/06/20 24 10/06/2024 COMPL ETE BLOOD COUNT W/DIF F HGB 11.7 g/dL 11.2-1 5.7 normal Not Available [address] [place], [address] 10/06/2024 23:05:49 10/06/20 24 10/06/2024 COMPL ETE BLOOD COUNT W/DIF F HCT 38.0 % 36.0-4 6.0 normal Not Available [address] [place], [address] 10/06/2024 23:05:49 10/06/20 24 10/06/2024 COMPL ETE BLOOD COUNT W/DIF F MCV 90 fL 80-95 normal Not Available [facility] [address] [place], [address] 10/06/2024 23:05:49 10/06/20 24 10/06/2024 COMPL ETE BLOOD COUNT W/DIF F MCH 27.7 pg 27.0-3 3.0 normal Not Available [address] [place], [address] 10/06/2024 23:05:49 10/06/20 24 10/06/2024 COMPL ETE BLOOD COUNT W/DIF F MCHC 30.8 % 32.0-3 6.0 low Not Available [address] [place], [address] 10/06/2024 23:05:49 10/06/20 24 10/06/2024 COMPL ETE BLOOD COUNT W/DIF F RDW 14.1 % 11.7-1 4.6 normal Not Available [address] [place], [address] 10/06/2024 23:05:49 10/06/20 24 10/06/2024 COMPL ETE BLOOD COUNT W/DIF F platelet count 522 10_3/ uL 130-40 0 high Not Available [address] [place], [address] 10/06/2024 23:05:49 10/06/20 24 10/06/2024 COMPL ETE BLOOD COUNT W/DIF F MPV 10.0 fL 8.0-11 .0 normal Not Available [address] [place], [address] 10/06/2024 23:05:49 10/06/20 24 10/06/2024 COMPL ETE BLOOD COUNT W/DIF F neutrophils % 60.7 % Not Available [address] [place] [place], [address] 10/06/2024 23:05:49 10/06/20 24 10/06/2024 COMPL ETE BLOOD COUNT W/DIF F lymphocytes % 30.1 % Not Available [address] [place], [address] 10/06/2024 23:05:49 10/06/20 24 10/06/2024 COMPL ETE BLOOD COUNT W/DIF F monocytes % 5.2 % Not Available [address] [place] [place], [address] 10/06/2024 23:05:49 10/06/20 24 10/06/2024 COMPL ETE BLOOD COUNT W/DIF F eosinophils % 2.7 % Not Available [address] [place] [place], [address] 10/06/2024 23:05:49 10/06/20 24 10/06/2024 COMPL ETE BLOOD COUNT W/DIF F basophils % 0.7 % Not Available [address] [place] [place], [address] 10/06/2024 23:05:49 10/06/20 24 10/06/2024 COMPL ETE BLOOD COUNT W/DIF F immature grans % 0.6 % Not Available [address] [place] [place], [address] 10/06/2024 23:05:49 10/06/20 24 10/06/2024 COMPL ETE BLOOD COUNT W/DIF F nucleated RBC 0.0 % 0.0-0. 3 normal Not Available [address] [place], [address] 10/06/2024 23:05:49 10/06/20 24 10/06/2024 COMPL ETE BLOOD COUNT W/DIF F absolute neutrophil count 9.94 10_3/ uL 1.2-6. 7 high Not Available [address] [place], [address] 10/06/2024 23:05:49 10/06/20 24 10/06/2024 COMPL ETE BLOOD COUNT W/DIF F absolute lymphocyte count 4.93 10_3/ uL 1.2-3. 4 high Not Available [address] [place], [address] 10/06/2024 23:05:49 10/06/20 24 10/06/2024 COMPL ETE BLOOD COUNT W/DIF F absolute monocyte count 0.85 10_3/ uL 0.1-0. 8 high Not Available [address] [place], [address] 10/06/2024 23:05:49 10/06/20 24 10/06/2024 COMPL ETE BLOOD COUNT W/DIF F absolute eosinophil count 0.44 10_3/ uL 0.0-0. 7 normal Not Available [address] [place], [address] 10/06/2024 23:05:49 10/06/20 24 10/06/2024 COMPL ETE BLOOD COUNT W/DIF F absolute basophil count 0.11 10_3/ uL 0.0-0. 2 normal Not Available [address] [place], [address] 10/06/2024 23:05:49 10/06/20 24 10/06/[address] METAB OLIC PANEL calcium 8.7 mg/dL 8.5-10 .1 normal Not Available [address] [place], [address] 10/06/2024 23:19:49 10/06/20 24 10/06/[address] METAB OLIC PANEL glucose 175 mg/dL 74-106 high Not Available [employer] [facility] [address] [place], [address] 10/06/2024 23:19:49 10/06/20 24 10/06/[address] METAB OLIC PANEL BUN 69 mg/dL 7-18 high Not Available [employer] [facility] [address] [place], [address] 10/06/2024 23:19:49 10/06/20 24 10/06/[address] METAB OLIC PANEL creatinine 6.2 mg/dL 0.55-1 .02 panic high Criti ting value repor curtis to and readb ack from SHARON Stout MD AT [facility] Reynoso at 2309 10/06 by LAB.M ARC Not Available [address] [place], [address] 10/06/2024 23:19:49 10/06/20 24 10/06/2024 COMPR EHENS [...] young er-ag ed adult s. Not Available [address] [place], [address] 10/06/2024 23:19:49 10/06/20 24 10/06/[address] METAB OLIC PANEL total protein 8.1 g/dL 6.4-8. 2 normal Not Available [address] [place], [address] 10/06/2024 23:19:49 10/06/20 24 10/06/[address] METAB OLIC PANEL albumin 2.8 g/dL 3.4-5. 0 low Not Available [address] [place], [address] 10/06/2024 23:19:49 10/06/20 24 10/06/[address] METAB OLIC PANEL bilirubin, total 0.19 mg/dL 0.2-1. 0 low Not Available [address] [place], [address] 10/06/2024 23:19:49 10/06/20 24 10/06/[address] METAB OLIC PANEL alk phos 165 U/L 46-116 high Not Available [address] [place], [address] 10/06/2024 23:19:49 10/06/20 24 10/06/[address] METAB OLIC PANEL sodium 141 mmol/ L 136-14 5 normal Not Available [address] [place], [address] 10/06/2024 23:19:49 10/06/20 24 10/06/2024 COMPR EHENS CORUT METAB OLIC PANEL potassium 4.5 mmol/ L 3.5-5. 1 normal Not Available [address] [place], [address] 10/06/2024 23:19:49 10/06/20 24 10/06/[address] METAB OLIC PANEL chloride 106 mmol/ L 98-107 normal Not Available [address] [place], [address] 10/06/2024 23:19:49 10/06/20 24 10/06/[address] METAB OLIC PANEL CO2 23.7 mmol/ L 21.0-3 2.0 normal Not Available [address] [place], [address] 10/06/2024 23:19:49 10/06/20 24 10/06/[address] METAB OLIC PANEL anion gap 11.3 mmol/ L 3-11 high Not Available [address] [place], [address] 10/06/2024 23:19:49 10/06/20 24 10/06/[address] METAB OLIC PANEL AST 17 U/L 15-37 normal Not Available [address] [place], [address] 10/06/2024 23:19:49 10/06/20 24 10/06/[address] METAB OLIC PANEL ALT 14 U/L 14-59 normal Not Available [employer] [address] [place], [address] 10/06/2024 23:19:49 10/06/20 24 10/06/2024 LIPID 2 cholesterol 144 mg/dL <200 Not Available [facility] [address] [place], [address] 10/06/2024 23:19:50 10/06/20 24 10/06/2024 LIPID 2 triglyceride 145 mg/dL <150 Not Available [address] [place], [address] 10/06/2024 23:19:50 10/06/20 24 10/06/2024 LIPID 2 HDL cholesterol 48 mg/dL 40-60 Not Available [facility] [address] [place], [address] 10/06/2024 23:19:50 10/06/20 24 10/06/2024 LIPID 2 [...] 18 years or older . Not Available [address] [place], [address] 10/06/2024 23:19:50 10/06/20 24 10/09/2024 HCV RNA DETEC TION QUANT ITATI VE HCV RNA qualitative Detect ed undete cted abnormal Not Available [address] [place], [address] 10/09/2024 12:33:52 10/06/20 24 10/09/2024 HCV RNA DETEC TION QUANT ITATI VE HCV RNA detection quantitative 903100 0 IU/mL undete cted abnormal The quant ifica tion range of this assay is 15 IU/mL to 100,0 00,00 0 IU/mL . Testi ng was perfo rmed using the Jaron HCV test ([employer] with the [employer]. Test perfo rmed or refer red by [facility] [address] [place] [address] Not Available [address] [place], [address] 10/09/2024 12:33:52 10/07/20 24 10/07/2024 NOVA GLUCO SE FINGE R HEEL CAPIL LEON glucose cap 148 mg/dL 70 - 116 high Not Available [facility] (Lab) [address] [place], [address], 10/07/2024 20:01:20 10/07/20 24 10/07/2024 NOVA GLUCO SE FINGE R HEEL CAPIL LEON glucose cap 181 mg/dL 70 - 116 high Not Available [facility] (Lab) [address] [place], [address], 10/07/2024 17:16:15 10/07/20 24 10/07/2024 LACTI C ACID lactic acid 2.6 mmol/ L 0.7 - 2.1 high Not Available [facility] (Lab) [address] [place] [address], [address], 10/07/2024 15:09:08 10/07/20 24 10/08/2024 CULT URINE CULTU RE* cult urine culture* URINE CULTU RE Not Available [facility] (Lab) [address] [place] [address], [address], 10/08/2024 12:36:59 10/07/20 24 10/08/2024 CULT URINE CULTU RE* collection mode: CLEAN CATCH Micro biolo gy Speci men Sourc e Urine Colle ction Date 10/07 Speci men Note: URINE Colle ction Time 13:41 [place]. [place]: [id number] Recei pt Date 10/07 ----- ----- ----- ----- ----- ----- ----- ----- ----- ----- ----- ----- ----- ----- ----- ----- Organ ism # 1: Mixed Gram Posit court and Gram Negat court Growt h (mix) CC= >100, 000 CFU/m L 10/08.1 236.T S . 10/08.1 236.T S .COMP LETE Not Available [facility] (Lab) [address] [place] [address], [address], 10/08/2024 12:36:59 10/07/20 24 10/07/2024 CPK SERUM TOTAL * CPK 60 U/L 30 - 135 Not Available [facility] (Lab) [address] [place] [address], [address], 10/07/2024 14:45:10 10/07/20 24 10/07/2024 CPK SERUM TOTAL * specimen seq. ADM. Not Available [facility] (Lab) [address] [place] [address], [address], 10/07/2024 14:45:10 10/07/20 24 10/07/2024 MAGNE SIUM SERUM * magnesium 1.2 mg/dL 1.6 - 2.3 low Not Available [facility] (Lab) [address] [place] [address], [address], 10/07/2024 14:45:08 10/07/20 24 10/07/[address] PROTE IN HIGH SENSI TIVIT Y* CRP-high sens. 15.91 mg/L 0.00 - 3.00 high Less Risk: <1.0 mg/L [place] ge Risk: 1.0-3 .0 mg/L High Risk: >3.0 mg/L Indet ermin ate: >10.0 mg/L Not Available [facility] (Lab) [address] [place] [address], [address], 10/07/2024 14:45:07 10/07/20 24 10/07/[address] METAB OLIC PANEL (CMP) glucose 189 mg/dL 70 - 116 high Not Available [facility] (Lab) [address] [place] [address], [address], 10/07/2024 14:45:05 10/07/20 24 10/07/[address] METAB OLIC PANEL (CMP) BUN 64 mg/dL 7 - 17 high Not Available [facility] (Lab) [address] [place] [address], [address], 10/07/2024 14:45:05 10/07/20 24 10/07/[address] METAB OLIC PANEL (CMP) creatinine 6.40 mg/dL 0.52 - 1.04 high Not Available [facility] (Lab) [address] [place], [address], 10/07/2024 14:45:05 10/07/20 24 10/07/[address] METAB OLIC PANEL (CMP) sodium serum 141 mmol/ L 136 - 145 Not Available [facility] (Lab) [address] [place] [address], [address], 10/07/2024 14:45:05 10/07/20 24 10/07/[address] METAB OLIC PANEL (CMP) potassium serum 4.3 mmol/ L 3.4 - 5.2 Not Available [facility] (Lab) [address] [place] [address], [address], 10/07/2024 14:45:05 10/07/20 24 10/07/[address] METAB OLIC PANEL (CMP) chloride serum 107 mmol/ L 98 - 107 Not Available [facility] (Lab) [address] [place] [address], [address], 10/07/2024 14:45:05 10/07/20 24 10/07/[address] METAB OLIC PANEL (CMP) carbon dioxide (co2) 22 mmol/ L 22 - 30 Not Available [facility] (Lab) [address] [place] [address], [address], 10/07/2024 14:45:05 10/07/20 24 10/07/2024 [address] [facility] METAB OLIC PANEL (CMP) anion gap 12.2 mmol/ L Not Available [facility] (Lab) [address] [place], [address], 10/07/2024 14:45:05 10/07/20 24 10/07/[address] METAB OLIC PANEL (CMP) calcium serum 8.5 mg/dL 8.4 - 10.2 Not Available [facility] (Lab) [address] [place] [address], 41202, 10/07/2024 14:45:05 10/07/20 24 10/07/[address] METAB OLIC PANEL (CMP) bilirubin total 0.2 mg/dL 0.2 - 1.3 Not Available [facility] (Lab) [address] [place] [address], 08768, 10/07/2024 14:45:05 10/07/20 24 10/07/[address] METAB OLIC PANEL (CMP) alk. phos. 133 U/L 38 - 126 high Not Available [facility] (Lab) [address] [place] [address], 43235, 10/07/2024 14:45:05 10/07/20 24 10/07/[address] METAB OLIC PANEL (CMP) SGOT (AST) 31 U/L 14 - 36 Not Available [facility] (Lab) [address] [place] [address], 42396, 10/07/2024 14:45:05 10/07/20 24 10/07/[address] METAB OLIC PANEL (CMP) SGPT (ALT) 20 U/L 4 - 35 Not Available [facility] (Lab) [address] [place] [address], [id number], 10/07/2024 14:45:05 10/07/20 24 10/07/[address] METAB OLIC PANEL (CMP) total protein 8.1 gm/dL 6.0 - 8.0 high Not Available [facility] (Lab) [address] [place], [address], 10/07/2024 14:45:05 10/07/20 24 10/07/[address] METAB OLIC PANEL (CMP) albumin 3.9 gm/dL 3.4 - 5.0 Not Available [facility] (Lab) [address] [place], [address], 10/07/2024 14:45:05 10/07/20 24 10/07/[address] METAB OLIC PANEL (CMP) age 49 years Not Available [facility] (Lab) [address] [place] [address], 80084, 10/07/2024 14:45:05 10/07/20 24 10/07/[address] METAB OLIC PANEL (CMP) eGFR (non-afr.narayan r.) 7 mL/mi n Not Available [facility] (Lab) [address] [place] [address], 05538, 10/07/2024 14:45:05 10/07/20 24 10/07/2024 COMPR EHENS [...] than 18 years of age. Not Available [facility] (Lab) [address] [place] [address], 11604, 10/07/2024 14:45:05 10/07/20 24 10/07/2024 SED RATE* sed. rate 79 mm/HR 0 - 20 high Not Available [facility] (Lab) [address] [place] [address], 31245, 10/07/2024 14:43:05 10/07/20 24 10/07/2024 DRUG SCN 13 PANEL (MEDT OX)* drug scn 13 panel (medtox)* URINE DRUG SCREE N (13 DRUGS ) Not Available [facility] (Lab) [address] [place] [address], 40568, 10/07/2024 14:36:04 10/07/20 24 10/07/2024 DRUG SCN 13 PANEL (MEDT OX)* cannabinoids NEGATI VE cutoff = 50 NG/mL Not Available [facility] (Lab) [address] [place] [address], 76001, 10/07/2024 14:36:04 10/07/20 24 10/07/2024 DRUG SCN 13 PANEL (MEDT OX)* phencyclidin e NEGATI VE cutoff = 25 NG/mL Not Available [facility] (Lab) [address] [place] [address], 49970, 10/07/2024 14:36:04 10/07/20 24 10/07/2024 DRUG SCN 13 PANEL (MEDT OX)* cocaine POSITI VE cutoff = 150 NG/mL abnormal Not Available [facility] (Lab) [address] [place] [address], 03724, 10/07/2024 14:36:04 10/07/20 24 10/07/2024 DRUG SCN 13 PANEL (MEDT OX)* methamphetam adenike NEGATI VE cutoff = 500 NG/mL Not Available [facility] (Lab) [address] [place] [address], 89298, 10/07/2024 14:36:04 10/07/20 24 10/07/2024 DRUG SCN 13 PANEL (MEDT OX)* opiates NEGATI VE cutoff = 100 NG/mL Not Available [facility] (Lab) [address] [place] [address], 85702, 10/07/2024 14:36:04 10/07/20 24 10/07/2024 DRUG SCN 13 PANEL (MEDT OX)* amphetamines NEGATI VE cutoff = 500 NG/mL Not Available [facility] (Lab) [address] [place] [address], 68523, 10/07/2024 14:36:04 10/07/20 24 10/07/2024 DRUG SCN 13 PANEL (MEDT OX)* benzodiazepi olivia NEGATI VE cutoff = 150 NG/mL Not Available [facility] (Lab) [address] [place] [address], 27955, 10/07/2024 14:36:04 10/07/20 24 10/07/2024 DRUG SCN 13 PANEL (MEDT OX)* tricyclic antidep POSITI VE cutoff = 300 NG/mL abnormal Not Available [facility] (Lab) [address] [place] [address], 85875, 10/07/2024 14:36:04 10/07/20 24 10/07/2024 DRUG SCN 13 PANEL (MEDT OX)* methadone POSITI VE cutoff = 200 NG/mL abnormal Not Available [facility] (Lab) [address] [place] [address], 37098, 10/07/2024 14:36:04 10/07/20 24 10/07/2024 DRUG SCN 13 PANEL (MEDT OX)* barbiturates NEGATI VE cutoff = 200 NG/mL Not Available [facility] (Lab) [address] [place] [address], 83940, 10/07/2024 14:36:04 10/07/20 24 10/07/2024 DRUG SCN 13 PANEL (MEDT OX)* oxycodone NEGATI VE cutoff = 100 NG/mL Not Available [facility] (Lab) [address] [place] [address], 82852, 10/07/2024 14:36:04 10/07/20 24 10/07/2024 DRUG SCN [...] BUPRE NORPH INE 10 ng/mL Not Available [facility] (Lab) [address] [place] [address], 39609, 10/07/2024 14:36:04 10/07/20 24 10/07/2024 CBC W/ DIFFE RENTI AL* WBC 15.85 TH/cm m 5.00 - 10.00 high Not Available [facility] (Lab) [address] [place] [address], 92528, 10/07/2024 14:33:06 10/07/20 24 10/07/2024 CBC W/ DIFFE RENTI AL* neut % 69.8 % 40.0 - 80.0 Not Available [facility] (Lab) [address] [place] [address], 04749, 10/07/2024 14:33:06 10/07/20 24 10/07/2024 CBC W/ DIFFE RENTI AL* lymph % 22.3 % 10.0 - 50.0 Not Available [facility] (Lab) [address] [place] [address], 93665, 10/07/2024 14:33:06 10/07/20 24 10/07/2024 CBC W/ DIFFE RENTI AL* mono % 5.2 % 2.0 - 12.0 Not Available [facility] (Lab) [address] [place] [address], 52397, 10/07/2024 14:33:06 10/07/20 24 10/07/2024 CBC W/ DIFFE RENTI AL* eos % 1.6 % 0.0 - 8.0 Not Available [facility] (Lab) [address] [place] [address], 64121, 10/07/2024 14:33:06 10/07/20 24 10/07/2024 CBC W/ DIFFE RENTI AL* baso % 0.5 % 0.0 - 3.0 Not Available [facility] (Lab) [address] [place] [address], 26113, 10/07/2024 14:33:06 10/07/20 24 10/07/2024 CBC W/ DIFFE RENTI AL* Ig % 0.6 % 0.0 - 1.1 Not Available [facility] (Lab) [address] [place] [address], 48294, 10/07/2024 14:33:06 10/07/20 24 10/07/2024 CBC W/ DIFFE RENTI AL* NRBC % 0.0 % 0.0 - 0.0 Not Available [facility] (Lab) [address] [place] [address], 95155, 10/07/2024 14:33:06 10/07/20 24 10/07/2024 CBC W/ DIFFE RENTI AL* neut abs count 11.1 TH/cm m 1.6 - 8.4 high Not Available [facility] (Lab) [address] [place] [address], 11006, 10/07/2024 14:33:06 10/07/20 24 10/07/2024 CBC W/ DIFFE RENTI AL* lymph abs count 3.5 TH/cm m 1.5 - 4.0 Not Available [facility] (Lab) [address] [place] [address], 64303, 10/07/2024 14:33:06 10/07/20 24 10/07/2024 CBC W/ DIFFE RENTI AL* mono abs count 0.8 TH/cm m 0.2 - 1.0 Not Available [facility] (Lab) [address] [place], [address], 10/07/2024 14:33:06 10/07/20 24 10/07/2024 CBC W/ DIFFE RENTI AL* eos abs count 0.3 TH/cm m 0.0 - 0.5 Not Available [facility] (Lab) [address] [place] [address], 84536, 10/07/2024 14:33:06 10/07/20 24 10/07/2024 CBC W/ DIFFE RENTI AL* baso abs count 0.1 TH/cm m 0.0 - 0.2 Not Available [facility] (Lab) [address] [place] [address], 17527, 10/07/2024 14:33:06 10/07/20 24 10/07/2024 CBC W/ DIFFE RENTI AL* Ig abs count 0.1 TH/cm m 0.0 - 0.1 Not Available [facility] (Lab) [address] [place] [address], 56162, 10/07/2024 14:33:06 10/07/20 24 10/07/2024 CBC W/ DIFFE RENTI AL* NRBC abs count 0.0 mil/c mm 0.0 - 0.0 Not Available [facility] (Lab) [address] [place] [address], 37952, 10/07/2024 14:33:06 10/07/20 24 10/07/2024 CBC W/ DIFFE RENTI AL* RBC 4.00 mil/c mm 3.90 - 5.40 Not Available [facility] (Lab) [address] [place] [address], 82948, 10/07/2024 14:33:06 10/07/20 24 10/07/2024 CBC W/ DIFFE RENTI AL* hemoglobin 10.9 gm/dL 12.0 - 16.0 low Not Available [facility] (Lab) [address] [place], [address], 10/07/2024 14:33:06 10/07/20 24 10/07/2024 CBC W/ DIFFE RENTI AL* hematocrit 35 % 37 - 47 low Not Available [facility] (Lab) [address] [place] [address], 19277, 10/07/2024 14:33:06 10/07/20 24 10/07/2024 CBC W/ DIFFE RENTI AL* MCV 87 fL 82 - 92 Not Available [facility] (Lab) [address] [place] [address], 09015, 10/07/2024 14:33:06 10/07/20 24 10/07/2024 CBC W/ DIFFE RENTI AL* MCH 27.3 pg 27.0 - 31.0 Not Available [facility] (Lab) [address] [place] [address], 91003, 10/07/2024 14:33:06 10/07/20 24 10/07/2024 CBC W/ DIFFE RENTI AL* MCHC 31.3 % 32.0 - 36.0 low Not Available [facility] (Lab) [address] [place] [address], 44319, 10/07/2024 14:33:06 10/07/20 24 10/07/2024 CBC W/ DIFFE RENTI AL* RDW-SD 45.4 fL 39.0 - 49.0 Not Available [facility] (Lab) [address] [place] [address], 36677, 10/07/2024 14:33:06 10/07/20 24 10/07/2024 CBC W/ DIFFE RENTI AL* platelet count 481 TH/cm m 150 - 450 high Not Available [facility] (Lab) [address] [place] [address], 93836, 10/07/2024 14:33:06 10/07/20 24 10/07/2024 URINA LYSIS WITH MICRO SCOPI C* collection mode: CLEAN CATCH Not Available [facility] (Lab) [address] [place], [address], 10/07/2024 14:33:03 10/07/20 24 10/07/2024 URINA LYSIS WITH MICRO SCOPI C* color YELLOW yellow Not Available [facility] (Lab) [address] [place], [address], 10/07/2024 14:33:03 10/07/20 24 10/07/2024 URINA LYSIS WITH MICRO SCOPI C* appearance HAZY clear Not Available [facility] (Lab) [address] [place], [address], 10/07/2024 14:33:03 10/07/20 24 10/07/2024 URINA LYSIS WITH MICRO SCOPI C* glucose urine 250 negati ve mg/dL abnormal Not Available [facility] (Lab) [address] [place], [address], 10/07/2024 14:33:03 10/07/20 24 10/07/2024 URINA LYSIS WITH MICRO SCOPI C* bilirubin NEGATI VE negati ve Not Available [facility] (Lab) [address] [place], [address], 10/07/2024 14:33:03 10/07/20 24 10/07/2024 URINA LYSIS WITH MICRO SCOPI C* ketones NEGATI VE negati ve mg/dL Not Available [facility] (Lab) [address] [place], [address], 10/07/2024 14:33:03 10/07/20 24 10/07/2024 URINA LYSIS WITH MICRO SCOPI C* spec gravity 1.020 1.003 - 1.030 Not Available [facility] (Lab) [address] [place] [address], 21352, 10/07/2024 14:33:03 10/07/20 24 10/07/2024 URINA LYSIS WITH MICRO SCOPI C* pH urine 6.0 5.0 - 7.0 Not Available [facility] (Lab) [address] [place], [address], 10/07/2024 14:33:03 10/07/20 24 10/07/2024 URINA LYSIS WITH MICRO SCOPI C* protein >=300 negati ve mg/dL abnormal Not Available [facility] (Lab) [address] [place] [address], 76857, 10/07/2024 14:33:03 10/07/20 24 10/07/2024 URINA LYSIS WITH MICRO SCOPI C* urobilinogen 0.2 <or= 1 eu/dL Not Available [facility] (Lab) [address] [place] [address], 55855, 10/07/2024 14:33:03 10/07/20 24 10/07/2024 URINA LYSIS WITH MICRO SCOPI C* nitrite POSITI VE negati ve abnormal Not Available [facility] (Lab) [address] [place] [address], 89197, 10/07/2024 14:33:03 10/07/20 24 10/07/2024 URINA LYSIS WITH MICRO SCOPI C* blood MODERA TE negati ve abnormal Not Available [facility] (Lab) [address] [place] [address], 84879, 10/07/2024 14:33:03 10/07/20 24 10/07/2024 URINA LYSIS WITH MICRO SCOPI C* leukocytes TRACE negati ve abnormal Not Available [facility] (Lab) [address] [place] [address], 22340, 10/07/2024 14:33:03 10/07/20 24 10/07/2024 URINA LYSIS WITH MICRO SCOPI C* WBCs 25-100 0-5 / hpf Not Available [facility] (Lab) [address] [place] [address], 25941, 10/07/2024 14:33:03 10/07/20 24 10/07/2024 URINA LYSIS WITH MICRO SCOPI C* RBCs 10-25 0-5 / hpf Not Available [facility] (Lab) [address] [place], [address], 10/07/2024 14:33:03 10/07/20 24 10/07/2024 URINA LYSIS WITH MICRO SCOPI C* epith cells 0-5 0-5 / hpf Not Available [facility] (Lab) [address] [place], [address], 10/07/2024 14:33:03 10/07/20 24 10/07/2024 URINA LYSIS WITH MICRO SCOPI C* cell types squamo us Not Available [facility] (Lab) [address] [place] [address], 54289, 10/07/2024 14:33:03 10/07/20 24 10/07/2024 URINA LYSIS WITH MICRO SCOPI C* crystals none none Not Available [facility] (Lab) [address] [place] [address], 49818, 10/07/2024 14:33:03 10/07/20 24 10/07/2024 URINA LYSIS WITH MICRO SCOPI C* bacteria large none Not Available [facility] (Lab) [address] [place] [address], 44509, 10/07/2024 14:33:03 10/07/20 24 10/07/2024 URINA LYSIS WITH MICRO SCOPI C* mucus none none Not Available [facility] (Lab) [address] [place] [address], 31218, 10/07/2024 14:33:03 10/07/20 24 10/07/2024 URINA LYSIS WITH MICRO SCOPI C* casts 0-5 none /lpf Not Available [facility] (Lab) [address] [place] [address], 69455, 10/07/2024 14:33:03 10/07/20 24 10/07/2024 URINA LYSIS WITH MICRO SCOPI C* cast types hyal+g ran Not Available [facility] (Lab) [address] [place] [address], 57125, 10/07/2024 14:33:03 10/07/20 24 10/07/2024 URINA LYSIS WITH MICRO SCOPI C* other WBC CLUMPS , URINE UNSPUN DUE TO VOLUME Not Available [facility] (Lab) [address] [place], [address], 10/07/2024 14:33:03 10/08/20 24 10/08/2024 NOVA GLUCO SE FINGE R HEEL CAPIL LEON glucose cap 118 mg/dL 70 - 116 high Not Available [facility] (Lab) [address] [place] [address], 11927, 10/08/2024 20:39:13 10/08/20 24 10/08/2024 NOVA GLUCO SE FINGE R HEEL CAPIL LEON glucose cap 69 mg/dL 70 - 116 low Not Available [facility] (Lab) [address] [place] [address], 01314, 10/08/2024 17:57:08 10/08/20 24 10/08/2024 NOVA GLUCO SE FINGE R HEEL CAPIL LEON glucose cap 60 mg/dL 70 - 116 low Not Available [facility] (Lab) [address] [place] [address], 84890, 10/08/2024 17:09:05 10/08/20 24 10/08/2024 NOVA GLUCO SE FINGE R HEEL CAPIL LEON glucose cap 116 mg/dL 70 - 116 Not Available [facility] (Lab) [address] [place] [address], 78138, 10/08/2024 12:27:58 10/08/20 24 10/08/2024 NOVA GLUCO SE FINGE R HEEL CAPIL LEON glucose cap 77 mg/dL 70 - 116 Not Available [facility] (Lab) [address] [place] [address], 05404, 10/08/2024 08:23:54 10/08/20 24 10/08/2024 MAGNE SIUM SERUM * magnesium 1.6 mg/dL 1.6 - 2.3 Not Available [facility] (Lab) [address] [place] [address], 94699, 10/08/2024 07:58:52 10/08/20 24 10/08/2024 BASIC METAB OLIC PANEL (BMP) glucose 72 mg/dL 70 - 116 Not Available [facility] (Lab) [address] [place] [address], 86367, 10/08/2024 07:58:50 10/08/20 24 10/08/2024 BASIC METAB OLIC PANEL (BMP) BUN 64 mg/dL 7 - 17 high Not Available [facility] (Lab) [address] [place] [address], 74660, 10/08/2024 07:58:50 10/08/20 24 10/08/2024 BASIC METAB OLIC PANEL (BMP) creatinine 5.91 mg/dL 0.52 - 1.04 high Not Available [facility] (Lab) [address] [place] [address], 73131, 10/08/2024 07:58:50 10/08/20 24 10/08/2024 BASIC METAB OLIC PANEL (BMP) sodium serum 144 mmol/ L 136 - 145 Not Available [facility] (Lab) [address] [place] [address], 39277, 10/08/2024 07:58:50 10/08/20 24 10/08/2024 BASIC METAB OLIC PANEL (BMP) potassium serum 4.2 mmol/ L 3.4 - 5.2 Not Available [facility] (Lab) [address] [place] [address], 81956, 10/08/2024 07:58:50 10/08/20 24 10/08/2024 BASIC METAB OLIC PANEL (BMP) chloride serum 112 mmol/ L 98 - 107 high Not Available [facility] (Lab) [address] [place] [address], 46215, 10/08/2024 07:58:50 10/08/20 24 10/08/2024 BASIC METAB OLIC PANEL (BMP) carbon dioxide (co2) 22 mmol/ L 22 - 30 Not Available [facility] (Lab) [address] [place] [address], 21916, 10/08/2024 07:58:50 10/08/20 24 10/08/2024 BASIC METAB OLIC PANEL (BMP) anion gap 9.5 mmol/ L Not Available [facility] (Lab) [address] [place] [address], 25123, 10/08/2024 07:58:50 10/08/20 24 10/08/2024 BASIC METAB OLIC PANEL (BMP) calcium serum 8.4 mg/dL 8.4 - 10.2 Not Available [facility] (Lab) [address] [place] [address], 16589, 10/08/2024 07:58:50 10/08/20 24 10/08/2024 BASIC METAB OLIC PANEL (BMP) age 49 years Not Available [facility] (Lab) [address] [place] [address], 32525, 10/08/2024 07:58:50 10/08/20 24 10/08/2024 BASIC METAB OLIC PANEL (BMP) eGFR (non-afr.narayan r.) 8 mL/mi n Not Available [facility] (Lab) [address] [place] [address], 12397, 10/08/2024 07:58:50 10/08/20 24 10/08/2024 BASIC METAB [...] than 18 years of age. Not Available [facility] (Lab) [address] [place] [address], 88996, 10/08/2024 07:58:50 10/08/20 24 10/08/2024 CBC W/ DIFFE RENTI AL* WBC 14.98 TH/cm m 5.00 - 10.00 high Not Available [facility] (Lab) [address] [place] [address], 83068, 10/08/2024 07:31:47 10/08/20 24 10/08/2024 CBC W/ DIFFE RENTI AL* neut % 61.9 % 40.0 - 80.0 Not Available [facility] (Lab) [address] [place] [address], 03938, 10/08/2024 07:31:47 10/08/20 24 10/08/2024 CBC W/ DIFFE RENTI AL* lymph % 27.8 % 10.0 - 50.0 Not Available [facility] (Lab) [address] [place] [address], 88836, 10/08/2024 07:31:47 10/08/20 24 10/08/2024 CBC W/ DIFFE RENTI AL* mono % 6.5 % 2.0 - 12.0 Not Available [facility] (Lab) [address] [place] [address], 08672, 10/08/2024 07:31:47 10/08/20 24 10/08/2024 CBC W/ DIFFE RENTI AL* eos % 2.8 % 0.0 - 8.0 Not Available [facility] (Lab) [address] [place] [address], 48542, 10/08/2024 07:31:47 10/08/20 24 10/08/2024 CBC W/ DIFFE RENTI AL* baso % 0.6 % 0.0 - 3.0 Not Available [facility] (Lab) [address] [place] [address], 85045, 10/08/2024 07:31:47 10/08/20 24 10/08/2024 CBC W/ DIFFE RENTI AL* Ig % 0.4 % 0.0 - 1.1 Not Available [facility] (Lab) [address] [place] [address], 48466, 10/08/2024 07:31:47 10/08/20 24 10/08/2024 CBC W/ DIFFE RENTI AL* NRBC % 0.0 % 0.0 - 0.0 Not Available [facility] (Lab) [address] [place] [address], 59728, 10/08/2024 07:31:47 10/08/20 24 10/08/2024 CBC W/ DIFFE RENTI AL* neut abs count 9.3 TH/cm m 1.6 - 8.4 high Not Available [facility] (Lab) [address] [place] [address], 80489, 10/08/2024 07:31:47 10/08/20 24 10/08/2024 CBC W/ DIFFE RENTI AL* lymph abs count 4.2 TH/cm m 1.5 - 4.0 high Not Available [facility] (Lab) [address] [place] [address], 47510, 10/08/2024 07:31:47 10/08/20 24 10/08/2024 CBC W/ DIFFE RENTI AL* mono abs count 1.0 TH/cm m 0.2 - 1.0 Not Available [facility] (Lab) [address] [place] [address], 29164, 10/08/2024 07:31:47 10/08/20 24 10/08/2024 CBC W/ DIFFE RENTI AL* eos abs count 0.4 TH/cm m 0.0 - 0.5 Not Available [facility] (Lab) [address] [place] [address], 73858, 10/08/2024 07:31:47 10/08/20 24 10/08/2024 CBC W/ DIFFE RENTI AL* baso abs count 0.1 TH/cm m 0.0 - 0.2 Not Available [facility] (Lab) [address] [place] [address], 54214, 10/08/2024 07:31:47 10/08/20 24 10/08/2024 CBC W/ DIFFE RENTI AL* Ig abs count 0.1 TH/cm m 0.0 - 0.1 Not Available [facility] (Lab) [address] [place] [address], 28792, 10/08/2024 07:31:47 10/08/20 24 10/08/2024 CBC W/ DIFFE RENTI AL* NRBC abs count 0.0 mil/c mm 0.0 - 0.0 Not Available [facility] (Lab) [address] [place] [address], 80353, 10/08/2024 07:31:47 10/08/20 24 10/08/2024 CBC W/ DIFFE RENTI AL* RBC 3.88 mil/c mm 3.90 - 5.40 low Not Available [facility] (Lab) [address] [place] [address], 81328, 10/08/2024 07:31:47 10/08/20 24 10/08/2024 CBC W/ DIFFE RENTI AL* hemoglobin 10.7 gm/dL 12.0 - 16.0 low Not Available [facility] (Lab) [address] [place] [address], 45091, 10/08/2024 07:31:47 10/08/20 24 10/08/2024 CBC W/ DIFFE RENTI AL* hematocrit 34 % 37 - 47 low Not Available [facility] (Lab) [address] [place] [address], 57051, 10/08/2024 07:31:47 10/08/20 24 10/08/2024 CBC W/ DIFFE RENTI AL* MCV 88 fL 82 - 92 Not Available [facility] (Lab) [address] [place] [address], 14363, 10/08/2024 07:31:47 10/08/20 24 10/08/2024 CBC W/ DIFFE RENTI AL* MCH 27.6 pg 27.0 - 31.0 Not Available [facility] (Lab) [address] [place] [address], 06487, 10/08/2024 07:31:47 10/08/20 24 10/08/2024 CBC W/ DIFFE RENTI AL* MCHC 31.3 % 32.0 - 36.0 low Not Available [facility] (Lab) [address] [place] [address], 21793, 10/08/2024 07:31:47 10/08/20 24 10/08/2024 CBC W/ DIFFE RENTI AL* RDW-SD 46.1 fL 39.0 - 49.0 Not Available [facility] (Lab) [address] [place] [address], 26013, 10/08/2024 07:31:47 10/08/20 24 10/08/2024 CBC W/ DIFFE RENTI AL* platelet count 437 TH/cm m 150 - 450 Not Available [facility] (Lab) [address] [place] [address], 59252, 10/08/2024 07:31:47 10/09/20 24 10/09/2024 NOVA GLUCO SE FINGE R HEEL CAPIL LEON glucose cap 101 mg/dL 70 - 116 Not Available [facility] (Lab) [address] [place] [address], [id number], 10/09/2024 19:40:39 10/09/20 24 10/09/2024 NOVA GLUCO SE FINGE R HEEL CAPIL LEON glucose cap 121 mg/dL 70 - 116 high Not Available [facility] (Lab) [address] [place] [address], [id number], 10/09/2024 18:40:38 10/09/20 24 10/09/2024 NOVA GLUCO SE FINGE R HEEL CAPIL LEON glucose cap 112 mg/dL 70 - 116 Not Available [facility] (Lab) [address] [place] [address], [id number], 10/09/2024 11:50:40 10/09/20 24 10/09/2024 NOVA GLUCO SE FINGE R HEEL CAPIL LEON glucose cap 79 mg/dL 70 - 116 Not Available [facility] (Lab) [address] [place] [address], [id number], 10/09/2024 08:47:05 10/09/20 24 10/09/2024 BASIC METAB OLIC PANEL (BMP) glucose 64 mg/dL 70 - 116 low Not Available [facility] (Lab) [address] [place] [address], [id number], 10/09/2024 07:48:58 10/09/20 24 10/09/2024 BASIC METAB OLIC PANEL (BMP) BUN 63 mg/dL 7 - 17 high Not Available [facility] (Lab) [address] [place] [address], [id number], 10/09/2024 07:48:58 10/09/20 24 10/09/2024 BASIC METAB OLIC PANEL (BMP) creatinine 5.87 mg/dL 0.52 - 1.04 high Not Available [facility] (Lab) [address] [place] [address], [id number], 10/09/2024 07:48:58 10/09/20 24 10/09/2024 BASIC METAB OLIC PANEL (BMP) sodium serum 143 mmol/ L 136 - 145 Not Available [facility] (Lab) [address] [place], [address], 10/09/2024 07:48:58 10/09/20 24 10/09/2024 BASIC METAB OLIC PANEL (BMP) potassium serum 4.5 mmol/ L 3.4 - 5.2 Not Available [facility] (Lab) [address] [place] [address], 48608, 10/09/2024 07:48:58 10/09/20 24 10/09/2024 BASIC METAB OLIC PANEL (BMP) chloride serum 115 mmol/ L 98 - 107 high Not Available [facility] (Lab) [address] [place] [address], 01380, 10/09/2024 07:48:58 10/09/20 24 10/09/2024 BASIC METAB OLIC PANEL (BMP) carbon dioxide (co2) 19 mmol/ L 22 - 30 low Not Available [facility] (Lab) [address] [place] [address], 19993, 10/09/2024 07:48:58 10/09/20 24 10/09/2024 BASIC METAB OLIC PANEL (BMP) anion gap 8.4 mmol/ L Not Available [facility] (Lab) [address] [place] [address], 21104, 10/09/2024 07:48:58 10/09/20 24 10/09/2024 BASIC METAB OLIC PANEL (BMP) calcium serum 8.1 mg/dL 8.4 - 10.2 low Not Available [facility] (Lab) [address] [place] [address], 58253, 10/09/2024 07:48:58 10/09/20 24 10/09/2024 BASIC METAB OLIC PANEL (BMP) age 49 years Not Available [facility] (Lab) [address] [place] [address], 76169, 10/09/2024 07:48:58 12/23/10/09/2024 BASIC METAB OLIC PANEL (BMP) eGFR (non-afr.narayan r.) 8 mL/mi n Not Available [facility] (Lab) [address] [place] [address], 10940, 10/09/2024 07:48:58 10/09/20 24 10/09/2024 BASIC METAB [...] than 18 years of age. Not Available [facility] (Lab) [address] [place] [address], 75207, 10/09/2024 07:48:58 10/09/20 24 10/09/2024 CBC W/ DIFFE RENTI AL* WBC 13.10 TH/cm m 5.00 - 10.00 high Not Available [facility] (Lab) [address] [place] [address], 23209, 10/09/2024 07:45:57 10/09/20 24 10/09/2024 CBC W/ DIFFE RENTI AL* neut % 58.6 % 40.0 - 80.0 Not Available [facility] (Lab) [address] [place] [address], 62147, 10/09/2024 07:45:57 10/09/20 24 10/09/2024 CBC W/ DIFFE RENTI AL* lymph % 31.2 % 10.0 - 50.0 Not Available [facility] (Lab) [address] [place] [address], 09847, 10/09/2024 07:45:57 10/09/20 24 10/09/2024 CBC W/ DIFFE RENTI AL* mono % 7.1 % 2.0 - 12.0 Not Available [facility] (Lab) [address] [place] [address], 77378, 10/09/2024 07:45:57 10/09/20 24 10/09/2024 CBC W/ DIFFE RENTI AL* eos % 2.3 % 0.0 - 8.0 Not Available [facility] (Lab) [address] [place] [address], 92046, 10/09/2024 07:45:57 10/09/20 24 10/09/2024 CBC W/ DIFFE RENTI AL* baso % 0.5 % 0.0 - 3.0 Not Available [facility] (Lab) [address] [place] [address], 95837, 10/09/2024 07:45:57 10/09/20 24 10/09/2024 CBC W/ DIFFE RENTI AL* Ig % 0.3 % 0.0 - 1.1 Not Available [facility] (Lab) [address] [place] [address], 63224, 10/09/2024 07:45:57 10/09/20 24 10/09/2024 CBC W/ DIFFE RENTI AL* NRBC % 0.0 % 0.0 - 0.0 Not Available [facility] (Lab) [address] [place] [address], 32374, 10/09/2024 07:45:57 10/09/20 24 10/09/2024 CBC W/ DIFFE RENTI AL* neut abs count 7.7 TH/cm m 1.6 - 8.4 Not Available [facility] (Lab) [address] [place] [address], 87952, 10/09/2024 07:45:57 10/09/20 24 10/09/2024 CBC W/ DIFFE RENTI AL* lymph abs count 4.1 TH/cm m 1.5 - 4.0 high Not Available [facility] (Lab) [address] [place] [address], 92345, 10/09/2024 07:45:57 10/09/20 24 10/09/2024 CBC W/ DIFFE RENTI AL* mono abs count 0.9 TH/cm m 0.2 - 1.0 Not Available [facility] (Lab) [address] [place] [address], 14372, 10/09/2024 07:45:57 10/09/20 24 10/09/2024 CBC W/ DIFFE RENTI AL* eos abs count 0.3 TH/cm m 0.0 - 0.5 Not Available [facility] (Lab) [address] [place] [address], 12139, 10/09/2024 07:45:57 10/09/20 24 10/09/2024 CBC W/ DIFFE RENTI AL* baso abs count 0.1 TH/cm m 0.0 - 0.2 Not Available [facility] (Lab) [address] [place] [address], 29529, 10/09/2024 07:45:57 10/09/20 24 10/09/2024 CBC W/ DIFFE RENTI AL* Ig abs count 0.0 TH/cm m 0.0 - 0.1 Not Available [facility] (Lab) [address] [place] [address], 53767, 10/09/2024 07:45:57 10/09/20 24 10/09/2024 CBC W/ DIFFE RENTI AL* NRBC abs count 0.0 mil/c mm 0.0 - 0.0 Not Available [facility] (Lab) [address] [place] [address], 06242, 10/09/2024 07:45:57 10/09/20 24 10/09/2024 CBC W/ DIFFE RENTI AL* RBC 3.38 mil/c mm 3.90 - 5.40 low Not Available [facility] (Lab) [address] [place] [address], 47944, 10/09/2024 07:45:57 10/09/20 24 10/09/2024 CBC W/ DIFFE RENTI AL* hemoglobin 9.2 gm/dL 12.0 - 16.0 low Not Available [facility] (Lab) [address] [place] [address], 45775, 10/09/2024 07:45:57 10/09/20 24 10/09/2024 CBC W/ DIFFE RENTI AL* hematocrit 30 % 37 - 47 low Not Available [facility] (Lab) [address] [place] [address], 72850, 10/09/2024 07:45:57 10/09/20 24 10/09/2024 CBC W/ DIFFE RENTI AL* MCV 89 fL 82 - 92 Not Available [facility] (Lab) [address] [place] [address], 74974, 10/09/2024 07:45:57 10/09/20 24 10/09/2024 CBC W/ DIFFE RENTI AL* MCH 27.2 pg 27.0 - 31.0 Not Available [facility] (Lab) [address] [place] [address], 50110, 10/09/2024 07:45:57 10/09/20 24 10/09/2024 CBC W/ DIFFE RENTI AL* MCHC 30.5 % 32.0 - 36.0 low Not Available [facility] (Lab) [address] [place] [address], 03917, 10/09/2024 07:45:57 10/09/20 24 10/09/2024 CBC W/ DIFFE RENTI AL* RDW-SD 46.1 fL 39.0 - 49.0 Not Available [facility] (Lab) [address] [place] [address], 86923, 10/09/2024 07:45:57 10/09/20 24 10/09/2024 CBC W/ DIFFE RENTI AL* platelet count 358 TH/cm m 150 - 450 Not Available [facility] (Lab) [address] [place], [address], 10/09/2024 07:45:57 10/10/20 24 10/10/2024 NOVA GLUCO SE FINGE R HEEL CAPIL LEON glucose cap 105 mg/dL 70 - 116 Not Available [facility] (Lab) [address] [place] [address], 27513, 10/10/2024 20:35:34 10/10/20 24 10/10/2024 NOVA GLUCO SE FINGE R HEEL CAPIL LEON glucose cap 131 mg/dL 70 - 116 high Not Available [facility] (Lab) [address] [place] [address], 17209, 10/10/2024 17:16:26 10/10/20 24 10/10/2024 NOVA GLUCO SE FINGE R HEEL CAPIL LEON glucose cap 107 mg/dL 70 - 116 Not Available [facility] (Lab) [address] [place] [address], 44072, 10/10/2024 12:12:52 10/10/20 24 10/10/2024 BASIC METAB OLIC PANEL (BMP) glucose 128 mg/dL 70 - 116 high Not Available [facility] (Lab) [address] [place] [address], 44767, 10/10/2024 10:30:37 10/10/20 24 10/10/2024 BASIC METAB OLIC PANEL (BMP) BUN 69 mg/dL 7 - 17 high Not Available [facility] (Lab) [address] [place] [address], 28998, 10/10/2024 10:30:37 10/10/20 24 10/10/2024 BASIC METAB OLIC PANEL (BMP) creatinine 5.68 mg/dL 0.52 - 1.04 high Not Available [facility] (Lab) [address] [place] [address], 46543, 10/10/2024 10:30:37 10/10/20 24 10/10/2024 BASIC METAB OLIC PANEL (BMP) sodium serum 141 mmol/ L 136 - 145 Not Available [facility] (Lab) [address] [place], [address], 10/10/2024 10:30:37 10/10/20 24 10/10/2024 BASIC METAB OLIC PANEL (BMP) potassium serum 5.4 mmol/ L 3.4 - 5.2 high Not Available [facility] (Lab) [address] [place] [address], 49285, 10/10/2024 10:30:37 10/10/20 24 10/10/2024 BASIC METAB OLIC PANEL (BMP) chloride serum 111 mmol/ L 98 - 107 high Not Available [facility] (Lab) [address] [place] [address], 12621, 10/10/2024 10:30:37 10/10/20 24 10/10/2024 BASIC METAB OLIC PANEL (BMP) carbon dioxide (co2) 20 mmol/ L 22 - 30 low Not Available [facility] (Lab) [address] [place] [address], 90990, 10/10/2024 10:30:37 10/10/20 24 10/10/2024 BASIC METAB OLIC PANEL (BMP) anion gap 10.2 mmol/ L Not Available [facility] (Lab) [address] [place] [address], 88488, 10/10/2024 10:30:37 10/10/20 24 10/10/2024 BASIC METAB OLIC PANEL (BMP) calcium serum 8.4 mg/dL 8.4 - 10.2 Not Available [facility] (Lab) [address] [place] [address], 66584, 10/10/2024 10:30:37 10/10/20 24 10/10/2024 BASIC METAB OLIC PANEL (BMP) age 49 years Not Available [facility] (Lab) [address] [place] [address], 24922, 10/10/2024 10:30:37 10/10/20 24 10/10/2024 BASIC METAB OLIC PANEL (BMP) eGFR (non-afr.narayan r.) 8 mL/mi n Not Available [facility] (Lab) [address] [place], [address], 10/10/2024 10:30:37 10/10/20 24 10/10/2024 BASIC METAB [...] than 18 years of age. Not Available [facility] (Lab) [address] [place] [address], 03466, 10/10/2024 10:30:37 10/10/20 24 10/10/2024 CBC W/ DIFFE RENTI AL* WBC 13.29 TH/cm m 5.00 - 10.00 high Not Available [facility] (Lab) [address] [place] [address], 92107, 10/10/2024 10:15:34 10/10/20 24 10/10/2024 CBC W/ DIFFE RENTI AL* neut % 59.5 % 40.0 - 80.0 Not Available [facility] (Lab) [address] [place], [address], 10/10/2024 10:15:34 10/10/20 24 10/10/2024 CBC W/ DIFFE RENTI AL* lymph % 29.6 % 10.0 - 50.0 Not Available [facility] (Lab) [address] [place] [address], 28272, 10/10/2024 10:15:34 10/10/20 24 10/10/2024 CBC W/ DIFFE RENTI AL* mono % 7.3 % 2.0 - 12.0 Not Available [facility] (Lab) [address] [place] [address], 62510, 10/10/2024 10:15:34 10/10/20 24 10/10/2024 CBC W/ DIFFE RENTI AL* eos % 2.6 % 0.0 - 8.0 Not Available [facility] (Lab) [address] [place] [address], 74984, 10/10/2024 10:15:34 10/10/20 24 10/10/2024 CBC W/ DIFFE RENTI AL* baso % 0.5 % 0.0 - 3.0 Not Available [facility] (Lab) [address] [place] [address], 04402, 10/10/2024 10:15:34 10/10/20 24 10/10/2024 CBC W/ DIFFE RENTI AL* Ig % 0.5 % 0.0 - 1.1 Not Available [facility] (Lab) [address] [place] [address], 69720, 10/10/2024 10:15:34 10/10/20 24 10/10/2024 CBC W/ DIFFE RENTI AL* NRBC % 0.0 % 0.0 - 0.0 Not Available [facility] (Lab) [address] [place] [address], 77137, 10/10/2024 10:15:34 10/10/20 24 10/10/2024 CBC W/ DIFFE RENTI AL* neut abs count 7.9 TH/cm m 1.6 - 8.4 Not Available [facility] (Lab) [address] [place] [address], 05598, 10/10/2024 10:15:34 10/10/20 24 10/10/2024 CBC W/ DIFFE RENTI AL* lymph abs count 3.9 TH/cm m 1.5 - 4.0 Not Available [facility] (Lab) [address] [place] [address], 63718, 10/10/2024 10:15:34 10/10/20 24 10/10/2024 CBC W/ DIFFE RENTI AL* mono abs count 1.0 TH/cm m 0.2 - 1.0 Not Available [facility] (Lab) [address] [place] [address], 18464, 10/10/2024 10:15:34 10/10/20 24 10/10/2024 CBC W/ DIFFE RENTI AL* eos abs count 0.3 TH/cm m 0.0 - 0.5 Not Available [facility] (Lab) [address] [place] [address], 27019, 10/10/2024 10:15:34 10/10/20 24 10/10/2024 CBC W/ DIFFE RENTI AL* baso abs count 0.1 TH/cm m 0.0 - 0.2 Not Available [facility] (Lab) [address] [place] [address], 28436, 10/10/2024 10:15:34 10/10/20 24 10/10/2024 CBC W/ DIFFE RENTI AL* Ig abs count 0.1 TH/cm m 0.0 - 0.1 Not Available [facility] (Lab) [address] [place] [address], 92732, 10/10/2024 10:15:34 10/10/20 24 10/10/2024 CBC W/ DIFFE RENTI AL* NRBC abs count 0.0 mil/c mm 0.0 - 0.0 Not Available [facility] (Lab) [address] [place] [address], 07584, 10/10/2024 10:15:34 10/10/20 24 10/10/2024 CBC W/ DIFFE RENTI AL* RBC 3.65 mil/c mm 3.90 - 5.40 low Not Available [facility] (Lab) [address] [place], [address], 10/10/2024 10:15:34 10/10/20 24 10/10/2024 CBC W/ DIFFE RENTI AL* hemoglobin 9.9 gm/dL 12.0 - 16.0 low Not Available [facility] (Lab) [address] [place] [address], 32371, 10/10/2024 10:15:34 10/10/20 24 10/10/2024 CBC W/ DIFFE RENTI AL* hematocrit 32 % 37 - 47 low Not Available [facility] (Lab) [address] [place] [address], 52193, 10/10/2024 10:15:34 10/10/20 24 10/10/2024 CBC W/ DIFFE RENTI AL* MCV 89 fL 82 - 92 Not Available [facility] (Lab) [address] [place] [address], 77253, 10/10/2024 10:15:34 10/10/20 24 10/10/2024 CBC W/ DIFFE RENTI AL* MCH 27.1 pg 27.0 - 31.0 Not Available [facility] (Lab) [address] [place] [address], 49308, 10/10/2024 10:15:34 10/10/20 24 10/10/2024 CBC W/ DIFFE RENTI AL* MCHC 30.6 % 32.0 - 36.0 low Not Available [facility] (Lab) [address] [place] [address], 60050, 10/10/2024 10:15:34 10/10/20 24 10/10/2024 CBC W/ DIFFE RENTI AL* RDW-SD 46.2 fL 39.0 - 49.0 Not Available [facility] (Lab) [address] [place] [address], 28553, 10/10/2024 10:15:34 10/10/20 10/10/2024 CBC W/ DIFFE BORA AL* platelet count 427 TH/cm m 150 - 450 Not Available [facility] (Lab) [address] [place] [address], 25594, 10/10/2024 10:15:34 10/10/20 24 10/10/2024 NOVA GLUCO SE FINGE R HEEL CAPIL LEON glucose cap 81 mg/dL 70 - 116 Not Available [facility] (Lab) [address] [place] [address], 09848, 10/10/2024 07:55:16 10/11/20 24 10/11/2024 NOVA GLUCO SE FINGE R HEEL CAPIL LEON glucose cap 161 mg/dL 70 - 116 high Not Available [facility] (Lab) [address] [place] [address], 92069, 10/11/2024 11:49:24 10/11/20 24 10/11/2024 NOVA GLUCO SE FINGE R HEEL CAPIL LEON glucose cap 88 mg/dL 70 - 116 Not Available [facility] (Lab) [address] [place] [address], 49881, 10/11/2024 07:54:17 10/11/20 24 10/11/2024 BASIC METAB OLIC PANEL (BMP) glucose 95 mg/dL 70 - 116 Not Available [facility] (Lab) [address] [place] [address], 92915, 10/11/2024 07:54:20 10/11/20 24 10/11/2024 BASIC METAB OLIC PANEL (BMP) BUN 74 mg/dL 7 - 17 high Not Available [facility] (Lab) [address] [place] [address], 09232, 10/11/2024 07:54:20 10/11/20 24 10/11/2024 BASIC METAB OLIC PANEL (BMP) creatinine 5.86 mg/dL 0.52 - 1.04 high Not Available [facility] (Lab) [address] [place], [address], 10/11/2024 07:54:20 10/11/20 24 10/11/2024 BASIC METAB OLIC PANEL (BMP) sodium serum 141 mmol/ L 136 - 145 Not Available [facility] (Lab) [address] [place] [address], 90695, 10/11/2024 07:54:20 10/11/20 24 10/11/2024 BASIC METAB OLIC PANEL (BMP) potassium serum 5.3 mmol/ L 3.4 - 5.2 high Not Available [facility] (Lab) [address] [place] [address], 11195, 10/11/2024 07:54:20 10/11/20 24 10/11/2024 BASIC METAB OLIC PANEL (BMP) chloride serum 115 mmol/ L 98 - 107 high Not Available [facility] (Lab) [address] [place] [address], 97441, 10/11/2024 07:54:20 10/11/20 24 10/11/2024 BASIC METAB OLIC PANEL (BMP) carbon dioxide (co2) 18 mmol/ L 22 - 30 low Not Available [facility] (Lab) [address] [place] [address], 67003, 10/11/2024 07:54:20 10/11/20 24 10/11/2024 BASIC METAB OLIC PANEL (BMP) anion gap 8.8 mmol/ L Not Available [facility] (Lab) [address] [place] [address], 39416, 10/11/2024 07:54:20 10/11/20 24 10/11/2024 BASIC METAB OLIC PANEL (BMP) calcium serum 8.4 mg/dL 8.4 - 10.2 Not Available [facility] (Lab) [address] [place] [address], 27980, 10/11/2024 07:54:20 10/11/20 24 10/11/2024 BASIC METAB OLIC PANEL (BMP) age 49 years Not Available [facility] (Lab) [address] [place] [address], 00431, 10/11/2024 07:54:20 10/11/20 24 10/11/2024 BASIC METAB OLIC PANEL (BMP) eGFR (non-afr.narayan r.) 8 mL/mi n Not Available [facility] (Lab) [address] [place] [address], 51791, 10/11/2024 07:54:20 10/11/20 24 10/11/2024 BASIC METAB [...] than 18 years of age. Not Available [facility] (Lab) [address] [place], [address], 10/11/2024 07:54:20 10/11/20 24 10/11/2024 BASIC METAB OLIC PANEL (BMP) glucose 95 mg/dL 70 - 116 Not Available [facility] (Lab) [address] [place] [address], 84928, 10/11/2024 07:54:18 10/11/20 24 10/11/2024 BASIC METAB OLIC PANEL (BMP) BUN 74 mg/dL 7 - 17 high Not Available [facility] (Lab) [address] [place] [address], 91539, 10/11/2024 07:54:18 10/11/20 24 10/11/2024 BASIC METAB OLIC PANEL (BMP) creatinine 5.86 mg/dL 0.52 - 1.04 high Not Available [facility] (Lab) [address] [place] [address], 62619, 10/11/2024 07:54:18 10/11/20 24 10/11/2024 BASIC METAB OLIC PANEL (BMP) sodium serum 141 mmol/ L 136 - 145 Not Available [facility] (Lab) [address] [place] [address], 31384, 10/11/2024 07:54:18 10/11/20 24 10/11/2024 BASIC METAB OLIC PANEL (BMP) potassium serum 5.3 mmol/ L 3.4 - 5.2 high Not Available [facility] (Lab) [address] [place], [address], 10/11/2024 07:54:18 10/11/20 24 10/11/2024 BASIC METAB OLIC PANEL (BMP) chloride serum 115 mmol/ L 98 - 107 high Not Available [facility] (Lab) [address] [place] [address], 33719, 10/11/2024 07:54:18 10/11/20 24 10/11/2024 BASIC METAB OLIC PANEL (BMP) carbon dioxide (co2) 18 mmol/ L 22 - 30 low Not Available [facility] (Lab) [address] [place] [address], 96769, 10/11/2024 07:54:18 10/11/20 24 10/11/2024 BASIC METAB OLIC PANEL (BMP) anion gap 8.8 mmol/ L Not Available [facility] (Lab) [address] [place] [address], 83946, 10/11/2024 07:54:18 10/11/20 24 10/11/2024 BASIC METAB OLIC PANEL (BMP) calcium serum 8.4 mg/dL 8.4 - 10.2 Not Available [facility] (Lab) [address] [place] [address], 28494, 10/11/2024 07:54:18 10/11/20 24 10/11/2024 BASIC METAB OLIC PANEL (BMP) age 49 years Not Available [facility] (Lab) [address] [place] [address], 66545, 10/11/2024 07:54:18 10/11/20 24 10/11/2024 BASIC METAB OLIC PANEL (BMP) eGFR (non-afr.narayan r.) 8 mL/mi n Not Available [facility] (Lab) [address] [place] [address], 57536, 10/11/2024 07:54:18 10/11/20 24 10/11/2024 BASIC METAB [...] than 18 years of age. Not Available [facility] (Lab) [address] [place] [address], 29569, 10/11/2024 07:54:18 10/11/20 24 10/11/2024 CBC W/ DIFFE RENTI AL* WBC 12.04 TH/cm m 5.00 - 10.00 high Not Available [facility] (Lab) [address] [place] [address], 10349, 10/11/2024 07:36:18 10/11/20 24 10/11/2024 CBC W/ DIFFE RENTI AL* neut % 59.2 % 40.0 - 80.0 Not Available [facility] (Lab) [address] [place] [address], 58727, 10/11/2024 07:36:18 10/11/20 24 10/11/2024 CBC W/ DIFFE RENTI AL* lymph % 28.6 % 10.0 - 50.0 Not Available [facility] (Lab) [address] [place] [address], 74628, 10/11/2024 07:36:18 10/11/20 24 10/11/2024 CBC W/ DIFFE RENTI AL* mono % 8.7 % 2.0 - 12.0 Not Available [facility] (Lab) [address] [place] [address], 16650, 10/11/2024 07:36:18 10/11/20 24 10/11/2024 CBC W/ DIFFE RENTI AL* eos % 2.5 % 0.0 - 8.0 Not Available [facility] (Lab) [address] [place] [address], 36608, 10/11/2024 07:36:18 10/11/20 24 10/11/2024 CBC W/ DIFFE RENTI AL* baso % 0.5 % 0.0 - 3.0 Not Available [facility] (Lab) [address] [place] [address], 36106, 10/11/2024 07:36:18 10/11/20 24 10/11/2024 CBC W/ DIFFE RENTI AL* Ig % 0.5 % 0.0 - 1.1 Not Available [facility] (Lab) [address] [place] [address], 39500, 10/11/2024 07:36:18 10/11/20 24 10/11/2024 CBC W/ DIFFE RENTI AL* NRBC % 0.0 % 0.0 - 0.0 Not Available [facility] (Lab) [address] [place] [address], 60634, 10/11/2024 07:36:18 10/11/20 24 10/11/2024 CBC W/ DIFFE RENTI AL* neut abs count 7.1 TH/cm m 1.6 - 8.4 Not Available [facility] (Lab) [address] [place] [address], 44289, 10/11/2024 07:36:18 10/11/20 24 10/11/2024 CBC W/ DIFFE RENTI AL* lymph abs count 3.4 TH/cm m 1.5 - 4.0 Not Available [facility] (Lab) [address] [place] [address], 51141, 10/11/2024 07:36:18 10/11/20 24 10/11/2024 CBC W/ DIFFE RENTI AL* mono abs count 1.1 TH/cm m 0.2 - 1.0 high Not Available [facility] (Lab) [address] [place] [address], 32549, 10/11/2024 07:36:18 10/11/20 24 10/11/2024 CBC W/ DIFFE RENTI AL* eos abs count 0.3 TH/cm m 0.0 - 0.5 Not Available [facility] (Lab) [address] [place] [address], 58591, 10/11/2024 07:36:18 10/11/20 24 10/11/2024 CBC W/ DIFFE RENTI AL* baso abs count 0.1 TH/cm m 0.0 - 0.2 Not Available [facility] (Lab) [address] [place] [address], 03707, 10/11/2024 07:36:18 10/11/20 24 10/11/2024 CBC W/ DIFFE RENTI AL* Ig abs count 0.1 TH/cm m 0.0 - 0.1 Not Available [facility] (Lab) [address] [place] [address], 52746, 10/11/2024 07:36:18 10/11/20 24 10/11/2024 CBC W/ DIFFE RENTI AL* NRBC abs count 0.0 mil/c mm 0.0 - 0.0 Not Available [facility] (Lab) [address] [place] [address], 92240, 10/11/2024 07:36:18 10/11/20 24 10/11/2024 CBC W/ DIFFE RENTI AL* RBC 3.19 mil/c mm 3.90 - 5.40 low Not Available [facility] (Lab) [address] [place] [address], [id number], 10/11/2024 07:36:18 10/11/20 24 10/11/2024 CBC W/ DIFFE RENTI AL* hemoglobin 8.9 gm/dL 12.0 - 16.0 low Not Available [facility] (Lab) [address] [place] [address], [id number], 10/11/2024 07:36:18 10/11/20 24 10/11/2024 CBC W/ DIFFE RENTI AL* hematocrit 28 % 37 - 47 low Not Available [facility] (Lab) [address] [place] [address], [id number], 10/11/2024 07:36:18 10/11/20 24 10/11/2024 CBC W/ DIFFE RENTI AL* MCV 88 fL 82 - 92 Not Available [facility] (Lab) [address] [place] [address], [id number], 10/11/2024 07:36:18 10/11/20 24 10/11/2024 CBC W/ DIFFE RENTI AL* MCH 27.9 pg 27.0 - 31.0 Not Available [facility] (Lab) [address] [place] [address], [id number], 10/11/2024 07:36:18 10/11/20 24 10/11/2024 CBC W/ DIFFE RENTI AL* MCHC 31.6 % 32.0 - 36.0 low Not Available [facility] (Lab) [address] [place] [address], [id number], 10/11/2024 07:36:18 10/11/20 24 10/11/2024 CBC W/ DIFFE RENTI AL* RDW-SD 46.0 fL 39.0 - 49.0 Not Available [facility] (Lab) [address] [place] [address], [id number], 10/11/2024 07:36:18 10/11/20 24 10/11/2024 CBC W/ DIFFE RENTI AL* platelet count 355 TH/cm m 150 - 450 Not Available [facility] (Lab) [address] [place] [address], [id number], 10/11/2024 07:36:18 10/19/19 25 10/19/2024 BASIC METAB OLIC PANEL calcium 9.2 mg/dL 8.5-10 .1 normal Not Available [address] [place], [address] 10/19/2024 22:10:18 10/19/19 25 10/19/2024 BASIC METAB OLIC PANEL glucose 97 mg/dL 74-106 normal Not Available [facility] [address] [place], [address] 10/19/2024 22:10:18 10/19/19 25 10/19/2024 BASIC METAB OLIC PANEL BUN 72 mg/dL 7-18 high Not Available [facility] [address] [place], [address] 10/19/2024 22:10:18 10/19/19 25 10/19/2024 BASIC METAB OLIC PANEL creatinine 5.8 mg/dL 0.55-1 .02 panic high Criti ting value repor curtis to and readb ack from [facility] at 2208 10/19 by LAB.J ENK Not Available [address] [place], [address] 10/19/2024 22:10:18 10/19/19 25 10/19/2024 BASIC METAB OLIC PANEL estimated GFR 8.38 mL/min /1.73M 2 The eGFR is calcu [...] young er-ag ed adult s. Not Available [address] [place], [address] 10/19/2024 22:10:18 10/19/19 25 10/19/2024 BASIC METAB OLIC PANEL sodium 142 mmol/ L 136-14 5 normal Not Available [address] [place], [address] 10/19/2024 22:10:18 10/19/19 25 10/19/2024 BASIC METAB OLIC PANEL potassium 4.8 mmol/ L 3.5-5. 1 normal Not Available [address] [place], [address] 10/19/2024 22:10:18 10/19/19 25 10/19/2024 BASIC METAB OLIC PANEL chloride 108 mmol/ L 98-107 high Not Available [address] [place], [address] 10/19/2024 22:10:18 10/19/19 25 10/19/2024 BASIC METAB OLIC PANEL CO2 25.7 mmol/ L 21.0-3 2.0 normal Not Available [address] [place], [address] 10/19/2024 22:10:18 10/19/19 25 10/19/2024 BASIC METAB OLIC PANEL anion gap 8.3 mmol/ L 3-11 normal Not Available [address] [place], [address] 10/19/2024 22:10:18 10/20/19 25 10/23/2024 HEP A TOTAL AB W RFLX IGM hep A total Ab W rflx IgM Negati ve negati ve The resul t of this assay can be false ly eleva curtis (Posi tive) due to the consu mptio n of Bioti n. Test perfo rmed or refer red by [facility] [address] [place] [address] Not Available [address] [place], [address] 10/23/2024 11:45:49 10/20/19 25 10/23/2024 HEPAT ITIS B SURFA CE AG hepatitis B surface Ag Negati ve negati ve Test perfo rmed or refer red by [facility] [address], [place] [address] Not Available [address] [place], [address] 10/23/2024 11:45:50 10/20/19 25 10/23/2024 HEP A TOTAL AB W RFLX IGM hep A total Ab W rflx IgM Negati ve negati ve The resul t of this assay can be false ly eleva curtis (Posi tive) due to the consu mptio n of Bioti n. Test perfo rmed or refer red by [facility] [address], [place] [address] Not Available [address] [place], [address] 10/23/2024 11:45:52 10/20/19 25 10/23/2024 HEPAT ITIS B SURFA CE AG hepatitis B surface Ag Negati ve negati ve Test perfo rmed or refer red by [facility] [address], [place] [facility] [address] Not Available [address] [place], [address] 10/23/2024 11:45:53 10/20/19 25 10/23/2024 C4 COMPL EMENT C4 complement 28 mg/dL 13-39 Test perfo rmed or refer red by [facility] [address], [place] [facility] [place] [address] Not Available [address] [place], [address] 10/23/2024 11:45:55 10/20/19 25 10/23/2024 C3 COMPL EMENT C3 complement 151 mg/dL 81-157 Test perfo rmed or refer red by [facility] [address], [place] [facility] [place] [address] Not Available [address] [facility] [place], [address] 10/23/2024 16:14:31 10/20/19 25 10/23/2024 HEP A TOTAL AB W RFLX IGM hep A total Ab W rflx IgM Negati ve negati ve The resul t of this assay can be false ly eleva curtis (Posi tive) due to the consu mptio n of Bioti n. Test perfo rmed or refer red by [facility] [address], [place] [address] Not Available [address] [place], [address] 10/23/2024 14:29:08 10/20/19 25 10/23/2024 HEPAT ITIS B SURFA CE AG hepatitis B surface Ag Negati ve negati ve Test perfo rmed or refer red by [facility] [address], [place] [address] Not Available [address] [place], [address] 10/23/2024 14:29:09 10/20/19 25 10/23/2024 HEP B CORE ANTIB GUSTAVO hep B core antibody Negati ve negati ve Test perfo rmed or refer red by [facility] [address], [place] [address] Not Available [address] [place], [address] 10/23/2024 14:29:09 10/20/19 25 10/23/2024 ANTI NUCLE AR ANTIB GUSTAVO, IFA DEIDRE interpretati on Positi ve negati ve abnormal For titer s great er than or equal to 1:160 (exce pt the centr omere and nucle olar patte rns) it is recom zuly d that speci fic follo w-up autoa ntibo dy testi ng (such as for dsDNA and Extra ctabl e Nucle ar Antig ens) be perfo rmed on all diffu se and/o r speck led patte rns NOTE: For add-o n testi ng dsDNA is stabl e for 7 days refri gerat ed while Extra ctabl e Nucle ar Antig ens are only stabl e for 48 hours refri gerat ed. Not Available [address] [place], [address] 10/23/2024 16:14:29 10/20/19 25 10/23/2024 ANTI NUCLE AR ANTIB GUSTAVO, IFA DEIDRE titer pattern 1:160 Speckl ed Resul ts were obtai ihsan with the Werfe n NOVA Lite HEp-2 DEIDRE Kit by indir ect immun ofluo rescloli ake. Test perfo rmed or refer red by [facility] [address], [place] [address] Not Available [address] [place], [address] 10/23/2024 16:14:29 10/20/19 25 10/23/2024 C4 COMPL EMENT C4 complement 28 mg/dL 13-39 Test perfo rmed or refer red by [facility] [address], [place] [address] Not Available [address] [place], [address] 10/23/2024 16:14:30 10/20/19 25 10/23/2024 HEP A TOTAL AB W RFLX IGM hep A total Ab W rflx IgM Negati ve negati ve The resul t of this assay can be false ly eleva curtis (Posi tive) due to the consu mptio n of Bioti n. Test perfo rmed or refer red by [facility] [address], [place] [address] Not Available [address] [place], [address] 10/23/2024 23:27:17 10/20/1910/23/2024 HEPAT ITIS B SURFA CE AG hepatitis B surface Ag Negati ve negati ve Test perfo rmed or refer red by [facility] [address], [place] [address] Not Available [address] [place], [address] 10/23/2024 23:27:17 10/20/19 25 10/23/2024 ANTI NUCLE AR ANTIB GUSTAVO, IFA DEIDRE interpretati on Positi ve negati ve abnormal For titer s great er than or equal to 1:160 (exce pt the centr omere and nucle olar patte rns) it is recom zuly d that speci fic follo w-up autoa ntibo dy testi ng (such as for dsDNA and Extra ctabl e Nucle ar Antig ens) be perfo rmed on all diffu se and/o r speck led patte rns NOTE: For add-o n testi ng dsDNA is stabl e for 7 days refri gerat ed while Extra ctabl e Nucle ar Antig ens are only stabl e for 48 hours refri gerat ed. Not Available [address] [facility] [place], [address] 10/23/2024 23:27:19 10/20/19 25 10/23/2024 ANTI NUCLE AR ANTIB GUSTAVO, IFA DEIDRE titer pattern 1:160 Speckl ed Resul ts were obtai ihsan with the Werfe n NOVA Lite HEp-2 DEIDRE Kit by indir ect immun ofluo resce nce. Test perfo rmed or refer red by [facility] [address], [place] [address] Not Available [address] [place], [address] 10/23/2024 23:27:19 10/20/19 25 10/23/2024 C4 COMPL EMENT C4 complement 28 mg/dL 13-39 Test perfo rmed or refer red by [facility] [address] [place] [address] Not Available [address] [place], [address] 10/23/2024 23:27:20 10/07/20 24 10/07/2024 CT ABD pelvi s wo IV or oral contr ast [facility] [place] [id number] RADIOL OGY TRANSC RIPTIO N REPORT _ Patien t Name: ERROL RUTH MS B MRN: Sex: : Age: [id number] F [id number] Accoun t: Access ion: Admit: StayTy pe: [id number] 2023 E Ordere d: Order ID: Submit curtis: Rosetta urena Provid er: 2023 14:14 01210 CAROLINA MCINTOSH Comple curtis: Techno logist : [...] notabl y at L4-L5 and L5-S1. IMPRES RONAN: 1. No acute pathol ogy. 2. Pneumo bilia is presen t. Please correl ate with the histor y of prior sphinc teroto my. 3. Bilate ral adrena l adenom as. 4. Promin ent retrop eriton eal lymph nodes are uncert ain etiolo gy, possib ly reacti ve. Thank you for lettin g us partic ipate in the care of this patimichael eugene. If you are a health care providence [...] [phone] at 2023 3:51 PM INTERFACE [facility] (Lab) [address] [place] [address], [address], 10/07/2024 15:57:10 Result Notes None recorded. 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 [address], [facility] [address] , [facility] 14:41:01 Gastroes ophageal reflux disease without esophagi tis 532878014 Active [address], [facility] [address] , [facility] 4 15:41:02 Sleep apnea 54198997 Active [address], [facility] [address] , [facility] 4 15:41:33 Dyspnea on exertion 78520943 Active [address], [facility] [address] , [facility] 16:02:44 Smoker 08018166 Active [address], [facility] [address] , [facility] 4 16:03:44 Legal blindnes s 42736480 Active [address], [place], [address] , [facility] 4 16:04:00 Toenail thickene d 174705438 Active [address], [facility] [address] , [facility] 4 16:07:44 Pruritic rash 62138258 Active [address], [place] [address] , [facility] 4 16:09:31 Retroper itoneal lymphade nopathy 664922698 Active 2023 burak rivera, [facility] 5 12:10:08 Renal failure syndrome 10380046 Active 2023 burak rivera, [facility] 5 12:10:41 Acute exacerba tion of chronic obstruct court pulmonar y disease 800232806 Active [address], [place], [address] , [facility] 5 15:11:03 Acute renal insuffic iency 121408556 Active [address], [facility] [address] , [facility] 5 16:57:59 Essentia l hyperten ornan 01716322 Active 2005 Kristie rivera, [facility] 4 09:53:15 Hyperlip idemia 02122845 Active 2005 Kristie rivera, [facility] 4 10:08:20 Uncompli cated moderate persiste nt asthma 183860006 Active 2005 Kristie Peters [facility] 4 10:24:46 Severe obesity 47034613659 104 Active 2005 Kristie Fran [facility] 4 10:22:09 Chronic hepatiti s C 801441610 Active 2003 pos viral load not treated [facility] 4 09:47:44 Pain of right shoulder joint 06819244874 037833 [facility] 4 10:17:43 Neuropat hy due to type 2 diabetes mellitus 92222296030 9106 Active 2014 uncontro lled, w/neurol o comps [facility] 4 10:17:28 Idiopath ic osteoart hritis 336781703 Active 2014 DJD, knees, bilatera l [facility] 4 10:08:49 Renal disorder due to type 2 diabetes mellitus 295570666 Active 2015 Diabetic nephropa thy [facility] 4 10:21:57 Derangem ent of right knee 93853091911 906584 Completed 201505/05/2016 Problem Code: M23.91; Problem Code Type: ICD-10; Not Available [facility] 3 04:12:16 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 72848313635 9104 Active 2015 (not billable after 6) Kristie Fran [facility] 4 10:16:21 Cocaine abuse 60680086 Active 2016 episodic [facility] 4 09:50:22 Tobacco use cessatio n educatio n Active 2016 [facility] 4 10:22:41 Gallblad mark calculus with acute cholecys titis and no obstruct ion 817790600 Completed 201612/29/2016 Problem Code: K80.00; Problem Code Type: ICD-10; Not Available [facility] 3 04:12:17 Acute asthma 964217126 Completed 201604/13/2017 Problem Code: J45.901; Problem Code Type: ICD-10; Not Available [facility] 3 04:12:17 Cellulit is 096179135 Completed 201607/16/2017 Problem Code: L03.90; Problem Code Type: ICD-10; Not Available [facility] 3 04:12:17 Atopic dermatit is 19421203 Active 2017 [facility] 4 09:45:01 Impetigo 57737794 Completed 201705/03/2018 Problem Code: L01.00; Problem Code Type: ICD-10; Not Available [facility] 3 04:12:17 Screenin g mammogra phy Completed 201804/20/2019 Problem Code: Z12.31; Problem Code Type: ICD-10; Not Available [facility] 3 04:12:18 History of diabetic foot ulcer 58183427306 448171 Active 2018 [facility] 4 10:01:[address] pulmonar y disease 93677241 Active 2018 Asthma with COPD [facility]. 4 09:48:31 Anemia 383746326 Active 2018 [facility]. 4 09:39:01 Albumin level - finding 783892916 Active 2018 decrease d [facility]. 4 09:37:16 Peripher al venous insuffic iency 98144774 Active 2018 Stasis ulcer [facility] 4 10:18:18 Cough 54588469 Completed 201908/22/2020 Problem Code: R05; Problem Code Type: ICD-10; Not Available [facility] 3 04:12:19 Endocrin e/metabo lic screenin g Completed 202012/28/2020 Problem Code: Z13.29; Problem Code Type: ICD-10; Not Available [facility] 3 04:12:19 Counseli ng Active 2020 Immuniza tion counseli ng [facility] 4 09:51:24 Generali zed anxiety disorder 12508336 Active 2020 [facility] 4 10:01:19 Vomiting 118376291 Completed 202006/26/2021 Problem Code: R11.10; Problem Code Type: ICD-10; Not Available [facility] 3 04:12:19 Insect bite Completed 202007/09/2021 Not Available [facility] 3 04:12:20 Cirrhosi s of liver 08129195 Active 2022 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 with possible contribu tion of [place], decompen sated [facility] 4 09:49:47 Jaundice 44467100 Active 2022 [facility] 4 10:09:01 Muscle weakness 61254809 Active 2022 (general ized) [facility] 4 10:16:46 Opioid abuse 5319800 Completed 202209/28/2023 Problem Code: F11.10; Problem Code Type: ICD-10; Not Available [facility] 4 05:34:22 Lichen simplex chronicu s 03350108 Active 2022 Neuroder matitis Kristie Peters [facility] 4 10:10:12 History of osteomye litis 371636289 Active 2022 Kristie rivera, [facility] 4 10:05:22 Opioid abuse 4911983 Completed 201807/14/2023 03/04/20 21 - Comments only - Sharon Henderson MD - offered scg for OBT but she states she plans to try to establis h tx thru [facility]. Not interest ed in Suboxone or Vivitrol ; might be interest ed in Sublocad e. Problem Code: F11.10; Problem Code Type: ICD-10; Not Available [facility] 3 04:12:22 Cholelit hiasis without obstruct ion 20445278 Completed 201512/22/2016 Problem Code: K80.20; Problem Code Type: ICD-10; Not Available [facility] 3 04:12:22 Candidia sis of vagina 31343138 Completed 201503/27/2016 Problem Code: B37.3; Problem Code Type: ICD-10; Not Available [facility] 3 04:12:23 Traumati c or non-trau matic injury 321147979 Completed 201607/14/2023 Problem Code: T14.8; Problem Code Type: ICD-10; Not Available [facility] 3 04:12:23 Disorder of teeth AND/OR supporti ng structur es 064957927 Completed 201503/17/2016 Problem Code: K08.8; Problem Code Type: ICD-10; Not Available [facility] 3 04:12:23 Uncompli cated asthma 920661307 Completed 200507/14/2023 Problem Code: J45.909; Problem Code Type: ICD-10; Not Available [facility] 3 04:12:23 Hyperten sive disorder 48853859 Completed 200507/14/2023 Not Available [facility] 3 04:12:24 Scar conditio ns and fibrosis of skin 852667254 Completed 201604/23/2017 Problem Code: L90.5; Problem Code Type: ICD-10; Not Available [facility] 3 04:12:24 Human papillom a virus infectio n 587906931 Completed 201607/14/2023 Problem Code: B97.7; Problem Code Type: ICD-10; Not Available [facility] 3 04:12:24 Morbid obesity 449310008 Completed 200507/14/2023 Not Available [facility] 3 04:12:24 Foot ulcer due to type 2 diabetes mellitus 59717134652 00 Completed 201512/22/2016 01/20/20 19 - Comments only - Sharon Henderson MD - With infectio n that [...] Code: E11.621; Problem Code Type: ICD-10; Kristie Peters [facility] 4 09:59:50 Periapic al abscess 321752719 Completed 201403/17/2016 Problem Code: K04.7; Problem Code Type: ICD-10; Not Available [facility] 3 04:12:25 Drug abuse 33684705 Completed 200707/14/2023 Problem Code: 305.90; Problem Code Type: ICD-9; Not Available [facility] 3 04:12:25 Opioid dependen ce in remissio n 651487122 Completed 201807/14/2023 09/26/20 19 - Comments only - Sharon Henderson MD - With comorbid depressi on and multiple chronic comorbid ities contribu ting to recent relapses . She expresse d that she feels like a failure and that she is let her family down. Was not willing to consider counseli ng. Brief SC provided at this visit. Problem Code: F11.21; Problem Code Type: ICD-10; Not Available [facility] 3 04:12:25 Gynecolo gic examinat ion Completed 201602/02/2017 Problem Code: Z01.419; Problem Code Type: ICD-10; Not Available [facility] 3 04:12:26 Nodule on toe 006216249 Completed 201605/25/2019 Not Available [facility] 3 04:12:26 Pain of right knee joint 76724731993 4100 Completed 201502/02/2017 Problem Code: M25.561; Problem Code Type: ICD-10; Not Available [facility] 3 04:12:26 Candidia sis of skin 08095136 Completed 201503/27/2016 Problem Code: B37.2; Problem Code Type: ICD-10; Not Available [facility] 3 04:12:26 Dysuria 19236958 Completed 201505/07/2016 Problem Code: R30.0; Problem Code Type: ICD-10; Not Available [facility] 3 04:12:27 Retinopa thy due to type 2 diabetes mellitus 598729659 Completed 201507/14/2023 Problem Code: E11.319; Problem Code Type: ICD-10; Not Available [facility] 3 04:12:27 Infectio n of skin and/or subcutan eous tissue 09520826 Completed 202204/30/2023 Problem Code: L08.89; Problem Code Type: ICD-10; Not Available [facility] 3 04:12:27 Tobacco dependen ce caused by cigarett es 37090660851 792984 Completed 200305/25/2019 Problem Code: F17.210; Problem Code Type: ICD-10; Not Available [facility] 3 04:12:27 Opioid dependen ce 21742938 Completed 04/200309/04/2015 05/25/20 19 - Comments only - Alexandro Grewal - [facility] well [facility]. Problem Code: F11.20; Problem Code Type: ICD-10; Not Available [facility] 3 04:12:28 Asthma 048924814 Completed 200507/14/2023 Not Available [facility] 3 04:12:28 Pain of joint of knee 0341866600 Completed 201407/14/2023 Problem Code: M25.569; Problem Code Type: ICD-10; Not Available [facility] 3 04:12:28 Cellulit is of right lower limb 16449415147 564484 Completed 201805/25/2019 Problem Code: L03.115; Problem Code Type: ICD-10; Not Available [facility] 3 04:12:28 Shoulder joint pain 414070733 Completed 201407/14/2023 Problem Code: 719.41; Problem Code Type: ICD-9; Not Available [facility] 3 04:12:29 Smoker 59690432 Completed 200307/14/[address], [place], [address] , [facility] 4 16:03:44 Chronic ulcer of foot 545041007 Completed 201601/05/2017 Problem Code: L97.529; Problem Code Type: ICD-10; Not Available [facility] 3 04:12:29 Type 2 diabetes mellitus without complica tion 030553618 Completed 200307/14/2023 Problem Code: 250.00; Problem Code Type: ICD-9; MD Shailesh [address], [place], [address] , [facility] 4 14:43:16 Pain of left knee joint 62927346338 4107 Completed 201407/14/2023 Problem Code: M25.562; Problem Code Type: ICD-10; Not Available [facility] 3 04:12:30 Depressi ve disorder 40872624 Completed 200307/14/2023 SHARON HENDERSON MD [address], [place], [address] [facility] 4 14:41:17 Hypergly cemia due to type 2 diabetes mellitus 73744529942 9109 Completed 200309/04/2015 Problem Code: E11.65; Problem Code Type: ICD-10; Not Available [facility] 3 04:12:30 Chest pain 19085032 Completed 201605/25/2019 Problem Code: R07.89; Problem Code Type: ICD-10; Not Available [facility] 3 04:12:31 Drug dependen ce 857745781 Completed 200307/14/2023 Problem Code: 304; Problem Code Type: ICD-9; Not Available [facility] 3 04:12:31 Cellulit is of toe of right foot 55806217951 738235 Completed 201505/11/2016 Problem Code: L03.031; Problem Code Type: ICD-10; Not Available [facility] 3 04:12:31 Osteoart hritis of knee 888490716 Completed 201402/02/2017 Problem Code: M17.9; Problem Code Type: ICD-10; Not Available [facility] 3 04:12:32 History of infectio us disease 390667229 Completed 201409/04/2015 Problem Code: Z86.19; Problem Code Type: ICD-10; Kristie rivera [facility] 4 10:05:01 Tobacco user 196688018 Completed 200508/06/2015 Not Available [facility] 3 04:12:32 Viral screenin g Completed 202209/10/2023 Problem Code: Z11.52; Problem Code Type: ICD-10; Not Available [facility] 4 05:34:15 Acute upper respirat ory infectio n 23889803 Completed 202208/18/2023 Problem Code: J06.9; Problem Code Type: ICD-10; Not Available [facility] 4 05:34:15 Type 2 diabetes mellitus without complica tion 257539128 Completed 202309/01/2024 Problem Code: 250.00; Problem Code Type: ICD-9; SHARON HENDERSON MD [address], [facility] [address] , [facility] 4 14:43:16 Asthma-c hronic obstruct court pulmonar y disease overlap syndrome 71086909617 694685 Active 2023 [facility] 09:39:21 Decompen sated cirrhosi s of liver 094334515 Active 2023 Child Bourgeois score 8/Class B as of 12/2022 [facility] 09:51:34 Visual impairme nt 797269531 Active 2023 [facility] 10:29:20 Thickene d nails 178772948 Active 2023 [facility] 4 10:22:14 Thickeni ng of skin 19246974 Completed 202309/01/2024 SHARON HENDERSON MD [address], [place], [address] , [facility] 4 14:43:15 Acquired hammer toes of bilatera l feet 88122118381 809810 Active 2023 [facility] 4 09:37:02 History of amputati on of right foot 17212079915 217676 Active 2023 [facility] 4 10:01:25 Combined form of senile cataract 56083139 [facility] 2023 [facility] 4 09:50:32 Unintent ional weight loss 365984755 Active 2022 [facility] 4 10:24:46 History of amputati on of lesser toe 020307620 Active 2022 [facility] 4 09:38:36 History of intraven ous drug abuse 43316988344 396847 Active 2007 heroin [facility] 4 09:40:14 Left ventricu lar hypertro phy 34730808 Active 2015 mild concentr ic 12/31 echo (nl EF) [facility] 4 09:47:08 Follicul itis 72156009 Active 2022 [facility] 4 09:52:22 Peripher al edema 616034329 Active 2014 [facility] 4 09:52:55 Mild persiste nt asthma 203145551 Active 2022 with acute exacerba tion [facility] 4 09:54:28 Family history of Alzheime r's disease 238654639 Active 2018 mother age 50, maternal grandmot her, maternal aunts and uncles; no genetic testing done [facility] 4 09:56:26 Diabetic foot ulcer 130836254 Active 2022 [facility] 4 09:59:46 History of cholecys tectomy 216361024 Active 2016 laparosc opic, 01/01 [facility] 4 10:00:55 History of human papillom a virus infectio n 87316558177 9102 Active 01/01; nl pap; neg colpo 04/03 incl ECC; neg pap 11/05; 5 yr f/u [facility] 4 10:04:56 History of opioid abuse 57494241665 9100 Active 2018 Hx of opioid abuse -- Saveda resumed suboxone 09/07 [facility] 4 10:08:01 Edentulo 655540044 Active 2015 s/p complete extr due to advanced caries 03/02 [facility] 4 10:13:37 Major depressi ve disorder 736522507 Active 2022 Major depressi on [facility] 4 10:15:28 Traumati c partial amputati on of right great toe Active 2018 initial encounte r [facility] 4 10:23:54 Stasis dermatit is 34395925 Active 2021 Venous stasis dermatit is [facility] 4 10:30:44 Diabetes mellitus 99509371 Completed 202309/01/[address], [facility] [address] , [facility] 4 14:43:16 Type 2 diabetes mellitus 97839547 Completed 202309/01/[address], [facility] [address] , [facility] 4 14:43:16 Obesity 128282154 Active [address], [facility] [address] , [facility] 4 20:58:25 Hemoglob in A1c greater than 9% indicati ng poor diabetic control 49997578338 4104 Completed 202309/01/2024 SHARON HENDERSON MD [address], [place], [address] , [facility] 4 14:43:16 Problem Notes None recorded. Procedures Surgical History None recorded. Imaging Results Imaging Date Name Status LastModified by Organiz ation Details LastModified Time 10/07/2024 CT ABD pelvis wo IV or oral contrast completed INTERFACE [facility] (Lab) [address] [place] [address], [address], 10/07/2024 15:57:10 Procedure Notes None recorded. Medical Equipment None Reported. Allergies Allergen ID Allergen Name Allergen Category Reaction Reaction Severity Criticality Documentation Date Start Date Code Code System Note Provider Name and Address Organization Details Recorded Time 49144 lisinopri l medicatio n cough moderate Not available 08/27/20232009 77787 RxNorm [facility] 4 10:31:16 92729 metoprolo l succinate medicatio n other moderate Not available 08/27/20232018 89456 4 RxNorm No react ion enter ed [facility] 4 10:31:36 35559 codeine medicatio n hives moderate Not available 08/27/20232002 2670 RxNorm [facility] 4 10:31:10 Medications Name Sig [...] Emergency Kit 1 mg solution for injection Use 1 mg intramus cularly as directed as needed 10/06 completed Not Available Not Available Not Available amitripty line 75 mg tablet Take [...] tablet 2 tabs daily x 5 days active Not Available Not Available No t Available Lantus U-100 Insulin 100 unit/mL subcutane [...] MOUTH FOUR TIMES A DAY 10/11 completed burak d/c Not Available Not Available Not Available [...] Dx: peripher al edema 11/04 completed [place] Not Available Not Available Not Available gabapenti n 300 mg tablet 3 cap three times daily 06/16 completed Not Available Not Available Not Available albuterol 2INH four times daily 07/31 completed Not Available Not Available Not Available Nystatin (Topical) cream apply BID 05/28 completed Not Available Not Available Not Available Nebulizer Dx: Asthma J45.40 Smoking Z71.6 2018 active [place]o in [place] Not Available Not Available Not Available Humalog [...] TABLET BY MOUTH ONCE DAILY 10/19 completed burak d/c Not Available Not Available Not Available [...] Dose change to 18mg q day per BADECATUR 04/12/19; 20mg as of 03/2020 Not Available Not Available Not Available Suboxone 2 mg-0.5 mg sublingua l film Take 2 film sublingu ally once daily 05/08 completed Per BADECATUR 04/12/19, total daily dose increase d to [...] Ultra-Fin e 0.5 mL 31 gauge x /16 active Not Available Not Available Not Available [...] 40 units subcutan eously twice a day. 10/195 completed burak d/c Not Available Not Available Not Available [...] Not Available Not Available Not Avai lable Gvoke HypoPen 2-Pack 1 mg/0.2 mL subcutane ous auto-inje ctor take 1 mg by injectio n as needed 2024 active Not Available Not Available Not Avai [...] Updated DateTime 4 160.02 cm 35.5 kg/m2 94862.9 1 g 97.5 [degF] 94 % 94 % 88 /min 168 mm[Hg] 98 mm[Hg] ARMIDA HIRSCH MA [facility] 4 15:02:01 Date Recorded Body height Body mass index (BMI) Body weight Body temperature Oxygen saturation Oxygen saturation in Arterial blood by Pulse oximetry Heart rate Systolic blood pressure Diastolic blood pressure Provider Name and Address Organization Details Last Updated DateTime 4 155.58 cm 35.5 kg/m2 73449.3 9 g 97.8 [degF] 96 % 96 % 79 /min 126 mm[Hg] 72 mm[Hg] ROSIBEL SALGADO RN [facility] 13:24:33 Date Recorded Body height Body mass index (BMI) Body weight Body temperature Oxygen saturation Oxygen saturation in Arterial blood by Pulse oximetry Heart rate Systolic blood pressure Diastolic blood pressure Provider Name and Address Organization Details Last Updated DateTime 155.58 cm 36.9 kg/m2 59843.7 g 97.7 [degF] 91 % 91 % 104 /min 178 mm[Hg] 82 mm[Hg] ARMIDA HIRSCH MA [facility] 14:46:25 Date Recorded Body height Provider Name an d Address Organization Details Last Updated DateTime 10/19/2024 155.58 cm Alexa Sorto LPN [facility] 10/19/2024 15:34:50 Date Recorded Systolic blood pressure Diastolic blood pressure Provider Name and Address Organization Details Last Updated DateTime 10/19/2024 158 mm[Hg] 82 mm[Hg] SHARON HENDRESON MD [address], [place], [address], [facility] 10/19/2024 16:50:46 Social History Question Answer Notes LastModified by Organizat ion Details LastModified Time Tobacco Smoking Status Current Every Day Smoker SURJIT KITCHEN LPN null, [facility] 11/03/2023 13:42:55 Date Of Most Recent HSA 10/06/2024 [email or web address] Information not available 10/06/2024 Would You Say That, In General, Your Health Is Poor [email or web address] Information not available 10/06/2024 Women Aged 18-50 - Would You Like To Become In The Next Year? (Female Patients Only) No [email or web address] Information not available 10/06/2024 How Often Does Anyone, Including Family, Physically Hurt You? Never [email or web address] Information not available 10/06/2024 How Often Does Anyone, Including Family, Insult Or Talk Down To You? Never Information no t available 10/06/2024 How Often Does Anyone, Including Family, Threaten You With Harm? Never [email or web address] Information not available 10/06/2024 How Often Does Anyone, Including Family, Scream Or Curse At You? Never [email or web address] Information not available 10/06/2024 Within The Past 12 Months, You Worried That Your Food Would Run Out Before You Got Money To Buy More. Sometimes True [email or web address] Information not available 10/06/2024 Within The Past 12 Months, The Food You Bought Just Didn't Last And You Didn't Have Money To Get More. Sometimes True [email or web address] Information not available 10/06/2024 How Hard Is It For You To Pay For The Very Basics Like Food, Housing, Medical Care, And Heating? Would You Say It Is: Very Hard [email or web address] Information not available 10/06/2024 In The Past 12 Months, Has Lack Of Reliable Transportation Kept You From Medical Appointments, Meetings, Work Or From Getting Things Needed For Daily Living? Yes Information not available 10/06/2024 What Is Your Housing Situation Today? I Have Housing. [email or web address] Information not available 10/06/2024 How Often In The Past Year Have You Used Marijuana (including Smoking, Vaping, Dabbing, Or Edibles)? Never [email or web address] Information not available 10/06/2024 How Often In The Past Year Have You Used Prescription Medications That Were Not Prescribed To You? Never Information not available 10/06/2024 How Often In The Past Year Have You Taken Your Own Prescription Medication More Than The Way It Was Prescribed Or For Different Reasons Than Its Intended Purpose? Never Information no t available 10/06/2024 How Often In The Past Year Have You Used Other Drugs (for Example, Heroin, Cocaine, Meth, Salvia, Inhalants)? Never [email or web address] Information not available 10/06/2024 Have You Ever Used IV Drugs? Yes 10 Years Ago [email or web address] Information not available 10/06/2024 What Matters Most To You? Vision, Overall Health [email or web address] Information not available 10/06/2024 During The Past Four Weeks Has Your Physical And Emotional Health Limited Your Social Activities With Family And Friends, Neighbors, Or Groups? Moderately Information not available 10/06/2024 During The Past Four Weeks, Was Someone Available To Help You If You Needed And Wanted Help? (For Example, If You [place] Very Nervous, Lonely, Or Blue; Got Sick And Had To Stay In Bed; Needed Someone To Talk To; Needed Help With Daily Chores; Or Needed Help Just Taking Care Of Yourself.) Yes- Quite A Bit Information not available 10/06/2024 During The Past Four Weeks, What Was The Hardest Physical Activity You Could Do For At Least 2 Minutes? Heavy [email or web address] Information not available 10/06/2024 Can You Get To Places Out Of Walking Distance Without Help? (For Example, Can You Travel Alone On Buses Or Taxis, Or Drive Your Own Car?) No [email or web address] Information not available 10/06/2024 Can You Go Shopping For Groceries Or Clothes Without Someone? s Help? No [email or web address] Information not available 10/06/2024 Can You Prepare Your Own Meals? No [email or web address] Information not available 10/06/2024 Can You Do Your Housework Without Help? Yes [email or web address] Information not available 10/06/2024 Because Of Any Health Problems, Do You Need The Help Of Another Person With Your Personal Care Needs Such As Eating, Bathing, Dressing, Or Getting Around The House? Yes [email or web address] Information not available 10/06/2024 Can You Handle Your Own Money Without Help? Yes [email or web address] Information not available 10/06/2024 Are You Having Difficulties Driving Your Car? Not Applicable- I Do Not Use A Car [email or web address] Information not available 10/06/2024 How Often During The Past Four Weeks Have You Been Bothered By Any Of The Following Problems? Falling Or Dizzy When Standing Up? Often [email or web address] Information not available 10/06/2024 Sexual Problems? Never [email or web address] Informat ion not available 10/06/2024 Trouble Eating Well? Never [email or web address] Information not available 10/06/2024 Teeth Or Denture Problems? Always Information not available 10/06/2024 Problems Using The Telephone? Always Can't See Phone [email or web address] Information not available 10/06/2024 Tiredness Or Fatigue? Always [email or web address] Information not available 10/06/2024 Have You Had 2 Or More Falls Or Sustained An Injury With A Fall In The Last Year? Yes [email or web address] Information not available 10/06/2024 Do You Have Difficulty With Walking Or Balance? Yes Information not available 10/06/2024 Do You Currently Use A Hearing Device? No [email or web address] Information not available 10/06/2024 Do You Currently Have Any Trouble With Your Vision? Yes [email or web address] Information no t available 10/06/2024 Do You Exercise For About 20 Minutes Three Or More Days A Week? No- I Usually Do Not Exercise Much Information not available 10/06/2024 Are There Any Safety Concerns In Your Home (see Attached CDC Pamphlet)? Yes Stairs, Cooking [email or web address] Information not available 10/06/2024 How Often Do You Have Trouble Taking Medicines The Way You Have Been Told To Take Them? Sometimes I Take Them As Prescribed [email or web address] Information not available 10/06/2024 How Confident Are You That You Can Control And Manage Most Of Your Health Problems? Somewhat Confident [email or web address] Information not available 10/06/2024 Do You Currently Have Any Difficulty With Your Hearing? No [email or web address] Information not available 10/06/2024 Date Of Most Recent SBINS 10/06/2024 [email or web address] Information not available 10/06/2024 What Was The Date Of Your Most Recent Tobacco Screening? 10/06/2024 [email or web address] Information not available 10/06/2024 What Is Your [...] Provided? 10/06/2024 Pt Just Not Ready Yet. [email or web address] Information not available 10/06/2024 How Many Years [...] Family history of diabetes mellitus type 1 [email or web address] Not available 2022 03:50:26 Notes:*Problem: Mother: chichi [...] mL 4 completed ARMIDA HIRSCH MA null, [place] - [facility] 09/01/2024 18:38:23 Influenza, split virus, trivalent, PF 4 completed SHARON HENDERSON MD [facility] [address], [place], [address], [facility] 09/01/2024 16:09:15 Td (adult), 5 Lf tetanus toxoid, preservative free, adsorbed 7 completed Not Available [facility] 08/27/2023 06:21:08 Tdap 7 completed Not Available [facility] 08/27/2023 06:21:08 Novel [id number], all formulations 9 completed Not Available [facility] 08/27/2023 06:21:08 Td(adult) unspecified formulation 1 completed Not Available [facility] 08/27/2023 06:21:08 Influenza, split virus, trivalent, preservative 6 completed Not Available [facility] 08/27/2023 06:21:08 Influenza, split virus, quadrivalent, PF 2 completed Not Available [facility] 08/27/2023 06:21:08 Influenza, split virus, quadrivalent, PF 3 completed Not Available [facility] 08/27/2023 06:21:08 Influenza, split virus, quadrivalent, preservative 8 completed Not Available [facility] 08/27/2023 06:21:09 COVID-19, mRNA, LNP-S, PF, 100 mcg/0.5mL dose or 50 mcg/0.25mL dose 2 completed Not Available [facility] 08/27/2023 06:21:09 COVID-19 vaccine, vector-nr, rS-Ad26, PF, 0.5 mL 1 completed Not Available [facility] 08/27/2023 06:21:09 COVID-19, mRNA, LNP-S, bivalent, PF, 30 mcg/0.3 mL dose 3 completed Not Available [facility] 08/27/2023 06:21:09 pneumococcal polysaccharide PPV23 0 completed Not Available [facility] 08/27/2023 06:21:09 influenza, unspecified formulation 9 completed Not Available [facility] 08/27/2023 06:21:09 influenza, unspecified formulation 8 completed Not Available [facility] 08/27/2023 06:21:09 influenza, unspecified formulation 7 completed Not Available [facility] 08/27/2023 06:21:09 Influenza, split virus, quadrivalent, PF 3 completed Not Available [facility] 10/29/2023 05:31:09 Pneumococcal conjugate PCV20, polysaccharide [id number] conjugate, adjuvant, PF 3 completed Not Available [facility] 10/29/2023 05:31:11 Past Encounters Encounter ID Performer Location Encounter Start Date Encounter Closed Date Diagnosis/Indication Diagnosis SNOMED-CT Code Diagnosis ICD10 Code Diagnosis Note [id number] [address] [address] 11/03/2023 13:24:44 11/03/2023 17:12:31 Asthma-chronic obstructive pulmonary disease overlap syndrome 8296891896 6104291 J44.9 Counseled pt on Breo Ellipta and Duelaira being same medication s. Pt prefers Breo. 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 Chronic hepatitis C 1283 89640 B18.2 Pt states she will she GI in coming months. Current Child Bourgeois Score calculated as 8 with most recent lab values (not all of which from same time) = Child Class B, qualifying as decompensa curtis cirrhosis. Pt is open to treating HepC with antivirals , but desires GI consult. If she misses the GI appt, could consider initiating treatment here. Uncomplica curtis moderate persistent asthma 795632426 J45.40 Fair control, reviewed absence of benefit of co-use of Breo and Dulera, patient prefers Breo so will renew this as well as albuterol. Patient precontemp lative regarding smoking cessation. Decompensa curtis cirrhosis of liver 817372350 K74.60 See above. No evidence of ascites, varices or jaundice. Essential hypertension 87401662 I10 Adequate control, continue current management . Insomnia 762649250 G47.0 0 Visual impairment 261717 003 H54.7 Pt reports last eye check 2019. Considerin g severe visual impairment today, rec urgent referral to ophthalmol jimmy. Pt left prior to funduscopi diana christine [id number] SHARON HENDERSON MD [address] [address] 03/06/2024 10:29:25 03/06/2024 12:06:45 Pre-surgery evaluation 062167917 Z01.818 Patient presents for pre-op evaluation . The patient is a suitable candidate for the planned procedure. A1C is elevated (see below) but not dangerousl y so, patient not currently at risk of hyperglyce martha coma. The patient has been cleared for surgery after the preprocedu ral examinatio n. 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 Type 2 ana betes mellitus 73227196 E11.8 The patient has experience d a temporary interrupti on in their insulin supply and elevated blood sugar levels as a result. (A1C 10.8) They are now back on Tresiba and will monitor their blood sugar levels closely. They will also make an effort to regain control of their diet and activity levels. The patient will increase Tresiba to 45 units twice a day from current 40 u bid.. A follow-up with a nailing machine operator is recommende d to provide additional support in managing the patient's blood sugar levels. Obesity 184543570 E66.9 The patient has gained weight due to decreased activity levels and increased food intake. The patient will work on regaining control of their diet and activity levels, and a follow-up visit in three months will assess the patient's progress in managing their weight. Neuropathy due to type 2 diabetes mellitus 3743690225 96998 E11.40 With recurrent callus right foot that is causing pain. Will refer back to Dr. Oliver. [id number] SHARON HENDERSON MD [address] [address] 09/01/2024 14:30:48 09/01/2024 15:49:47 Asthma-chronic obstructive pulmonary disease overlap syndrome 0871701536 2392573 J44.9 Recommende d switch from Breo to Trelegy for LABA/LAMA coverage as well as ICS. Essential hypertension 63543993 I10 Not well-contr olled related to being out of medication for 2 weeks, meds renewed, follow-up 1 month. Anxiety 26029684 F41.9 Neuropathy due to type 2 diabetes mellitus 3856445192 70603 E11.40 With recurrent callus right foot that is causing pain. Will refer back to Dr. Oliver. Hyperlipidemia 22124980 E78.5 Gastroesop hageal reflux disease without esophagitis 558528709 K21.9 Continue daily PPI. Sleep apnea 68300896 G47 .30 Central/op ioid mediated versus OLVIN. Advised sleep eval. Referral made. History of fall 46225412 9 Z91.81 Continue use of assistive device such as cane. Keep follow-up with eye doctor. Active or passive immunization 969011095 Z23 Dyspnea on exertion 6084 5006 R06.09 Could be due to worsening COPD, untreated sleep apnea might be contributi ng, CHF also certainly a possibilit y. Will urge echo and cards eval at follow-up if not significan tly improved with change in inhaler. Encouraged continued efforts at smoking cessation. Smoker 17632420 F17.210 Tobacco us e cessation education 242982819 Z71.6 She has cut back to half pack per day, encouraged continued work toward complete cessation. Legal blindness 79879577 H54.8 Will ask care coordinato r to connect her with [facility] assistive technologi es. Food insecurity 94356591 3 Z59.41 Will ask care coordinato r to assist with choices for care and Meals on Wheels applicatio ns. Chronic hepatitis C 1283 42844 B18.2 Last Child Bourgeois Score calculated as 8 with most recent lab values (not all of which from same time) = Child Class B, qualifying as decompensa curtis cirrhosis. Pt is open to treating HepC with antivirals , has not kept GI consult referrals, open to updating labs at next visit and considerin g treatment through this office. Toenail thickened 752727 000 R23.8 Needs to see her warm in for toenail and general foot care. Will place referral to facilitate earlier appointmen t. Pruritic rash 77329463 L 28.2 Mild folliculit is versus neuroderma titis upper back. Advised topical antibiotic , avoid scratching , reevaluate at next visit [id number] ROSIBEL SALGADO RN [address] [address] 10/06/2024 12:53:21 10/06/2024 14:03:34 Adult health examination 085488500 Z00.00 Muscle weakness 49673614 M62.81 Decompensa curtis cirrhosis of liver 787211751 K74.60 See above. No evidence of ascites, varices or jaundice. Hyperlipidemia 67003845 E78.5 Chronic hepatitis C 1283 85083 B18.2 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 8869215413 4741330 J44.9 Recommende d switch from Breo to Trelegy for LABA/LAMA coverage as well as ICS. 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 64241912 E11.[id number] [address] 10/19/2024 14:35:21 10/19/2024 17:05:19 Acute exacerbation of chronic obstructive pulmonary disease 021127656 J44.1 Will treat with short course of prednisone , 40 mg/day x 5 days. In-house supply dispensed given her difficulty getting to and obtaining medication s from the pharmacy. She hopes to be able to picker packer at least Trelegy tomorrow from the pharmacy. I reviewed with her availabili ty of a funds to our office to help with co-pays if needed. Renal fail ure syndrome 26237920 N19 Acute on chronic with no significan t improvemen t in creatinine during hospitaliz ation. Reviewed with [facility] nephrology . Will obtain screening labs including [...] lung disease. Decompensa curtis cirrhosis of liver 804636088 K74.60 Will check coag studies, had recent liver function tests, will forward all to nephrology . Chronic hepatitis C 1283 05561 B18.2 High viral load, she was hoping to start treatment but is too ill at this time. Acute randa l insufficiency 259564312 N28.9 Repeat BMP drawn today. Will schedule weekly BMPs through home health to keep close eye on creatinine and GFR. Essential hypertension 19026055 I10 Blood pressure higher since discontinu ation of losartan HCTZ. Will increase amlodipine from 5 to 10 mg/day. 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 77465698 E11.8 A1c was 6.6 during recent hospital stay and blood sugars have been remaining under 200 off all insulin and oral hypoglycem ics recently. Will likely need resumption of some degree of insulin or possibly an oral agent, will monitor. She will continue checking her sugars 2-3 times per day. Tobacco us e cessation education 372581719 Z71.6 Unfortunat dimitri she continues to smoke and has been unable to quit. History of opioid abuse 4882140228 47441 F11.11 Stable on methadone but with ongoing cocaine use. Retroperit antonio lymphadenopathy 767323384 R59.0 Reactive etiology favored per radiologis t, no concerning masses or other signs of malignancy on recent noncontras t abdominal pelvis CT. [id number] DOTTIE COFFMAN LPN [facility] [address] [place] [address] 10/20/2024 13:00:57 10/20/2024 14:00:30 Cirrhosis of liver 48275724 K74.60 Acute-on-c hronic renal failure 091110023 N17.9 R80.9 [id number] Jordana Saldana [facility] [address] [place] [address] 10/25/2024 13:01:10 10/25/2024 13:17:52 Health Concerns Section Related Observation LastModified by Organization Detai ls LastModified Time None Recorded Concern Status LastModified by Organization Details LastModified Time None Recorded Advance Directives Directive None Recorded Payers Encounter Date Sequence Insurance Name Policy Number Policy Salmon Covered Member ID Salmon Member ID Guarantor Name 09/01/2024 2 [employer] [place] [facility] ([place]ICA[place]) Lea Vasquez [id number] Lea Vasquez 09/01/2024 1 [place] Lea Vasquez [id number] Lea Vasquez 10/06/2024 2 [employer] [place] [employer] ([place]) Lea Vasquez [id number] Lea Vasquez 10/06/2024 1 [place] Lea Vasquez [id number] Lea Vasquez 10/19/2024 2 [employer] [place] [facility] ([place]) Lea Vasquez [id number] Lea Vasquez 10/19/2024 1 [place] Lea Vasquez [id number] Lea Vasquez 10/20/2024 2 [employer] [place] [facility] ([place]) Lea Vasquez [id number] Lea Vasquez 10/20/2024 1 [place] Lea Vasquez [id number] Lea Vasquez Notes Date Note Type Note Provider Name and Address Organization Details Recorded Time 09/01/2024 text/html CC: f/u COPD, vi sual [...] She remains in treatment with methadone thru [facility] but hopes to have split dosing as she is feels mild withdrawal symptoms late in the day. SHARON HENDERSON MD [address], [place], [address], [facility]. 09/01/2024 16:11:54 10/06/2024 text/html CC: Medicare wel [...] issues with transportation, mentioning she can access [facility] and that [employer] is reliable. She is open to working with the [facility] showcase maker Chari whom she met at the beginning of today's visit for the first time. Lea notes that her partner has not initiated Hepatitis C treatment, but states this is not currently a concern. She mentions that the medication affects intimacy and adds that her partner is almost 60 years old. ROSIBEL SALGADO RN [facility] 10/06/2024 16:21:16 10/19/2024 text/html CC: f/u hospitalization [...] hospitalization, measuring 178/82. Repeat check is 158/82 SHARON HENDERSON MD [address], [place], [address], [facility]. 10/19/2024 17:05:17 OBGyn Episode No OBEpisode recorded.
--- OUTSIDE RECORDS SUMMARY | 2024-10-25 14:01 | XMS_ITS | Data Portability ---
Author Organization [facility] [employer] [place], [place]_[facility]_Eulogio Long Address [address] [place] [address] Assessment Encounter Date Assessment Date Assessment LastModified [...] regarding any risk of combining sedating agents. [email or web address] Not available 03/04/2022 13:28:21 03/11/2022 03/11/2022 Telemedicine [...] regarding any risk of combining sedating agents. [email or web address] Not available 03/11/2022 13:08:03 03/25/2022 03/25/2022 Telemedicine [...] regarding any risk of combining sedating agents. [email or web address] Not available 03/25/2022 13:50:44 04/08/2022 04/08/2022 Telemedicine [...] regarding any risk of combining sedating agents. [email or web address] Not available 04/08/2022 13:48:17 04/22/2022 04/22/2022 Telemedicine [...] recorded. Lab drug screen, urine 2021 022 [facility], [address] [place], [address], 2 11:21:44 drug screen, urine 2021 022 [facility], [address] [place] [place], [address], 2 13:54:31 drug screen, urine 2021 022 [facility], [address] [place], [address], 2 14:14:27 AST/SGOT (aspartate aminotransf erase), serum or plasma [address] (Lab), [address] [place] [address], [address], 2 11:11:26 ALT (alanine aminotransf erase), serum or plasma [address] (Lab), [address] [place] [address], [address], 2 11:11:26 gamma-gluta myl transferase (ggt), serum [address] (Lab), [address] [place] [address], [address], 2 11:11:26 drug screen, urine 2021 022 [facility], [address] G[address] [place], [address], 2 09:33:11 drug screen, urine [address], [address] [place], [address], 2 10:28:58 Referral None recorded. Procedures None [...] vaughn by GINO Vitaliy FRIEDMAN Not Available [place] [address] [place], [address], 02/20/2022 11:43:53 02/19/2008 0302/18/2022 [facility] PT SCREE MONIKA benzodiazapi olivia Negati ve NG/mL 200 Not Available [facility] [place], [address], 02/20/2022 11:43:53 02/19/20 22 02/18/2022 [facility] PT SCREE MONIKA buprenorphin e Positi ve NG/mL 5 Not Available [place] [address] [place], [address], 02/20/2022 11:43:53 02/19/20 22 02/18/2022 [facility] PT SCREE MONIKA cocaine metabolite Negati ve NG/mL 150 Not Available [address] [address] [place], [address], 02/20/2022 11:43:53 02/19/20 22 02/18/2022 [facility] IN[facility] PT SCREE MONIKA opiates Negati ve NG/mL 300 Not Available [facility] [place], [address], 02/20/2022 11:43:53 02/19/20 22 02/18/2022 BUPRE NORPH INE PT SCREE MONIKA oxycodone Negati ve NG/mL 300 Not Available [address] [address] [place], [address], 02/20/2022 11:43:53 02/19/20 22 02/18/2022 [facility]UP[facility] IN[facility] PT SCREE MONIKA fentanyl Negati ve NG/mL 2 Not Available [address] [address] [place], [address], 02/20/2022 11:43:53 02/19/20 22 02/18/2022 BUPRE [facility]PH INE PT SCREE MONIKA ethyl alcohol Negati ve mg/dL 10 Not Available [facility] [place], [address], 02/20/2022 11:43:53 02/19/20 22 02/18/2022 [facility] IN[facility] PT SCREE MONIKA methadone metabolite Negati ve NG/mL 300 Not Available [facility] [place], [address], 02/20/2022 11:43:53 02/19/20 22 02/18/2022 [facility]UPRE [facility]PH INE PT SCREE MONIKA cannabinoids (THC) Negati ve NG/mL 50 Not Available [facility] [place], [address], 02/20/2022 11:43:53 02/19/20 22 02/18/2022 [facility] IN[facility] PT SCREE MONIKA urine creatinine 138.4 mg/dL >20 Not Available [place] [address] [place], [address], 02/20/2022 11:43:53 02/19/20 22 02/18/2022 BUPRE [facility]PH IN[facility] PT SCREE MONIKA urine pH 5.60 4.5-9. 0 Not Available [place] [address] [place], [address], 02/20/2022 11:43:53 02/19/20 22 02/18/2022 [facility]UPRE [facility]PH INE PT SCREE MONIKA specific gravity 1.019 1.003- 1.035 Not Available [place] [address] [place], [address], 02/20/2022 11:43:53 02/19/20 22 02/18/2022 PRESC RIBED DRUG CONFI RMATI ON BUPRE NORPH INE 1, QN, U buprenorphin e 155.3 NG/mL 10 Gerda vaughn by GINO STARK FRIEDMAN Not Available [place] [address] [place], [address], 02/24/2022 13:27:22 02/19/20 22 02/18/2022 PRESC RIBED DRUG CONFI RMATI ON BUPRE NORPH INE 1, QN, U norbuprenorp sebastián 191.7 NG/mL 10 Not Available [place] [address] [place], [address], 02/24/2022 13:27:22 02/19/20 22 02/18/2022 PRES RIBED DRUG CONFI RMATI ON BUPRE NORPH INE 1, QN, U legend Abbrev iation s LOW - Detec francis but unqua ntifi able OLR - Outsi de of linea r range ATR - Addit ional Testi ng Requi red Not Available [place] [address] [place], [address], 02/24/2022 13:27:22 02/19/20 22 02/18/2022 [facility] RIBED DRUG CONFI RMATI ON BUPRE NORPH INE 1, QN, U billing only ([id number]) Billin g Only Not Available [facility] [place], [address], 02/24/2022 13:27:22 02/26/20 22 02/25/2022 BUPRE NORPH INE PT SCREE MONIKA amphetamines Negati ve NG/mL 1,000 Gerda olivo d by GINO [facility] [place] Not Available [address] [address] [place], [address], 02/26/2022 12:36:27 02/26/20 22 02/25/2022 BUPRE NORPH INE PT SCREE MONIKA benzodiazapi olivia Negati ve NG/mL 200 Not Available [facility] [place], [address], 02/26/2022 12:36:27 02/26/20 22 02/25/2022 BUPRE NORPH INE PT SCREE MONIKA buprenorphin e Positi ve NG/mL 5 Not Available [facility] [place], [address], 02/26/2022 12:36:27 02/26/20 22 02/25/2022 BUPRE NORPH INE PT SCREE MONIKA cocaine metabolite Negati ve NG/mL 150 Not Available [facility] [place], [address], 02/26/2022 12:36:27 02/26/20 22 02/25/2022 BUPRE NORPH INE PT SCREE MONIKA opiates Negati ve NG/mL 300 Not Available [facility] [place], [address], 02/26/2022 12:36:27 02/26/20 22 02/25/2022 [facility]UP[facility]PH INE PT SCREE MONIKA oxycodone Negati ve NG/mL 300 Not Available [facility] [place], [address], 02/26/2022 12:36:27 02/26/20 22 02/25/2022 BUPRE NORPH INE PT SCREE MONIKA fentanyl Negati ve NG/mL 2 Not Available [facility] [place], [address], 02/26/2022 12:36:27 02/26/20 22 02/25/2022 BUPRE NORPH INE PT SCREE MONIKA ethyl alcohol Negati ve mg/dL 10 Not Available [facility] [place], [address], 02/26/2022 12:36:27 02/26/20 22 02/25/2022 [facility] IN[facility] PT SCREE MONIKA methadone metabolite Negati ve NG/mL 300 Not Available [facility] [place], [address], 02/26/2022 12:36:27 02/26/20 22 02/25/2022 BUPRE NORPH INE PT SCREE MONIKA cannabinoids (THC) Negati ve NG/mL 50 Not Available [facility] [place], [address], 02/26/2022 12:36:27 02/26/20 22 02/25/2022 BUPRE NORPH INE PT SCREE MONIKA urine creatinine 101.1 mg/dL >20 Not Available [place] [address] [place], [address], 02/26/2022 12:36:27 02/26/20 22 02/25/2022 BUPRE NORPH INE PT SCREE MONIKA urine pH 5.30 4.5-9. 0 Not Available [address] [address] [place], [address], 02/26/2022 12:36:27 02/26/20 22 02/25/2022 BUPRE [facility]PH INE PT SCREE MONIKA specific gravity 1.014 1.003- 1.035 Not Available [address] [place] [address] [place], [address], 02/26/2022 12:36:27 03/04/20 22 03/04/2022 BUPRE NORPH INE PT SCREE MONIKA amphetamines Negati ve NG/mL 1,000 [facility] baron olivo d by [facility] Not Available [address] [place] [address] [place], [address], 03/05/2022 11:21:44 03/04/20 22 03/04/2022 BUPRE NORPH INE PT SCREE MONIKA benzodiazapi olivia Negati ve NG/mL 200 Not Available [facility] [place], [address], 03/05/2022 11:21:44 03/04/20 22 03/04/2022 BUPRE NORPH INE PT SCREE MONIKA buprenorphin e Positi ve NG/mL 5 Not Available [facility] [place], [address], 03/05/2022 11:21:44 03/04/20 22 03/04/2022 BUPRE NORPH INE PT SCREE MONIKA cocaine metabolite Negati ve NG/mL 150 Not Available [facility] [place], [address], 03/05/2022 11:21:44 03/04/20 22 03/04/2022 BUPRE NORPH INE PT SCREE MONIKA opiates Negati ve NG/mL 300 Not Available [facility] [place], [address], 03/05/2022 11:21:44 03/04/20 22 03/04/2022 BUPRE NORPH INE PT SCREE MONIKA oxycodone Negati ve NG/mL 300 Not Available [facility] [place], [address], 03/05/2022 11:21:44 03/04/20 22 03/04/2022 BUPRE NORPH INE PT SCREE MONIKA fentanyl Negati ve NG/mL 2 Not Available [facility] [place], [address], 03/05/2022 11:21:44 03/04/20 22 03/04/2022 BUPRE NORPH INE PT SCREE MONIKA ethyl alcohol Negati ve mg/dL 10 Not Available [facility] [place], [address], 03/05/2022 11:21:44 03/04/20 22 03/04/2022 BUPRE NORPH INE PT SCREE MONIKA methadone metabolite Negati ve NG/mL 300 Not Available [facility] [place], [address], 03/05/2022 11:21:44 03/04/20 22 03/04/2022 BUPRE NORPH INE PT SCREE MONIKA cannabinoids (THC) Negati ve NG/mL 50 Not Available [facility] [place], [address], 03/05/2022 11:21:44 03/04/20 22 03/04/2022 BUPRE NORPH INE PT SCREE MONIKA urine creatinine 40.7 mg/dL >20 Not Available [place] [address] [place], [address], 03/05/2022 11:21:44 03/04/20 22 03/04/2022 BUPRE NORPH INE PT SCREE MONIKA urine pH 5.80 4.5-9. 0 Not Available [place] [address] [place], [address], 03/05/2022 11:21:44 03/04/20 22 03/04/2022 BUPRE NORPH INE PT SCREE MONIKA specific gravity 1.009 1.003- 1.035 Not Available [address] [place] [address] [place], [address], 03/05/2022 11:21:44 03/11/20 22 03/11/2022 BUPRE NORPH INE PT SCREE MONIKA amphetamines Negati ve NG/mL 1,000 [facility] baron vaughn by [facility] Not Available [place] [address] [place], [address], 03/12/2022 13:54:31 03/11/20 22 03/11/2022 BUPRE NORPH INE PT SCREE MONIKA benzodiazapi olivia Negati ve NG/mL 200 Not Available [facility] [place], [address], 03/12/2022 13:54:31 03/11/20 22 03/11/2022 BUPRE NORPH INE PT SCREE MONIKA buprenorphin e Positi ve NG/mL 5 Not Available [facility] [place], [address], 03/12/2022 13:54:31 03/11/20 22 03/11/2022 BUPRE NORPH INE PT SCREE MONIKA cocaine metabolite Negati ve NG/mL 150 Not Available [facility] [address] [place], [address], 03/12/2022 13:54:31 03/11/20 22 03/11/2022 BUPRE NORPH INE PT SCREE MONIKA opiates Positi ve NG/mL 300 abnormal Not Available [place] [address] [place], [address], 03/12/2022 13:54:31 03/11/20 22 03/11/2022 BUPRE NORPH INE PT SCREE MONIKA oxycodone Negati ve NG/mL 300 Not Available [place] [address] [place], [address], 03/12/2022 13:54:31 03/11/20 22 03/11/2022 BUPRE NORPH INE PT SCREE MONIKA fentanyl Negati ve NG/mL 2 Not Available [address] [address] [place], [address], 03/12/2022 13:54:31 03/11/20 22 03/11/2022 BUPRE NORPH INE PT SCREE MONIAK ethyl alcohol Negati ve mg/dL 10 Not Available [address] [address] [place], [address], 03/12/2022 13:54:31 03/11/20 22 03/11/2022 BUPRE NORPH INE PT SCREE MONIKA methadone metabolite Negati ve NG/mL 300 Not Available [place] [address] [place], [address], 03/12/2022 13:54:31 03/11/20 22 03/11/2022 BUPRE NORPH INE PT SCREE MONIKA cannabinoids (THC) Negati ve NG/mL 50 Not Available [address] [address] [place], [address], 03/12/2022 13:54:31 03/11/20 22 03/11/2022 BUPRE NORPH INE PT SCREE MONIKA urine creatinine 55.1 mg/dL >20 Not Available [place] [address] [place], [address], 03/12/2022 13:54:31 03/11/20 22 03/11/2022 BUPRE NORPH INE PT SCREE MONIKA urine pH 5.50 4.5-9. 0 Not Available [place] [address] [place], [address], 03/12/2022 13:54:31 03/11/20 22 03/11/2022 BUPRE NORPH INE PT SCREE MONIKA specific gravity 1.008 1.003- 1.035 Not Available [place] [address] [place], [address], 03/12/2022 13:54:31 03/11/20 22 03/11/2022 ADMIT FRANCIS OPIAT ES USE admitted opiates use NTP Elect baron vaughn by [facility] No Testi ng Perfo rmed Not Available [place] [address] [place], [address], 03/17/2022 07:29:46 03/25/20 22 03/25/2022 BUPRE NORPH INE PT SCREE MONIKA amphetamines Negati ve NG/mL 1,000 Elect baron olivo d by [facility] Not Available [place] [address] [place], [address], 03/26/2022 14:14:27 03/25/20 22 03/25/2022 BUPRE NORPH INE PT SCREE MONIKA benzodiazapi olivia Negati ve NG/mL 200 Not Available [facility] [place], [address], 03/26/2022 14:14:27 03/25/20 22 03/25/2022 BUPRE NORPH INE PT SCREE MONIKA buprenorphin e Positi ve NG/mL 5 Not Available [facility] [address] [place], [address], 03/26/2022 14:14:27 03/25/20 22 03/25/2022 BUPRE NORPH INE PT SCREE MONIKA cocaine metabolite Negati ve NG/mL 150 Not Available [facility] [place], [address], 03/26/2022 14:14:27 03/25/20 22 03/25/2022 BUPRE NORPH INE PT SCREE MONIKA opiates Negati ve NG/mL 300 Not Available [place] [address] [place], [address], 03/26/2022 14:14:27 03/25/20 22 03/25/2022 BUPRE NORPH INE PT SCREE MONIKA oxycodone Negati ve NG/mL 300 Not Available [facility] [place], [address], 03/26/2022 14:14:27 03/25/20 22 03/25/2022 BUPRE NORPH INE PT SCREE MONIKA fentanyl Negati ve NG/mL 2 Not Available [place] [address] [place], [address], 03/26/2022 14:14:27 03/25/20 22 03/25/2022 BUPRE NORPH INE PT SCREE MONIKA ethyl alcohol Negati ve mg/dL 10 Not Available [facility] [place], [address], 03/26/2022 14:14:27 03/25/20 22 03/25/2022 BUPRE NORPH INE PT SCREE MONIKA methadone metabolite Negati ve NG/mL 300 Not Available [place] [address] [place], [address], 03/26/2022 14:14:27 03/25/20 22 03/25/2022 BUPRE NORPH INE PT SCREE MONIKA cannabinoids (THC) Negati ve NG/mL 50 Not Available [address] [address] [place], [address], 03/26/2022 14:14:27 03/25/20 22 03/25/2022 BUPRE NORPH INE PT SCREE MONIKA urine creatinine 72.8 mg/dL >20 Not Available [place] [address] [place], [address], 03/26/2022 14:14:27 03/25/20 22 03/25/2022 BUPRE NORPH INE PT SCREE MONIKA urine pH 5.20 4.5-9. 0 Not Available [place] [address] [place], [address], 03/26/2022 14:14:27 03/25/20 22 03/25/2022 BUPRE NORPH INE PT SCREE MONIKA specific gravity 1.016 1.003- 1.035 Not Available [place] [address] [place], [address], 03/26/2022 14:14:27 03/25/20 22 03/25/2022 PRESC RIBED DRUG CONFI RMATI ON BUPRE NORPH INE 1, QN, U buprenorphin e 31.0 NG/mL 10 Elect baron olivo d by [facility] Not Available [place] [address] [place], [address], 03/31/2022 06:31:56 03/25/20 22 03/25/2022 PRESC RIBED DRUG CONFI RMATI ON BUPRE NORPH INE 1, QN, U norbuprenorp sebastián 168.7 NG/mL 10 Not Available [place] [address] [place], [address], 03/31/2022 06:31:56 03/25/20 22 03/25/2022 PRESC RIBED DRUG CONFI RMATI ON BUPRE NORPH INE 1, QN, U legend Abbrev iation s LOW - Detec francis but unqua ntifi able OLR - Outsi de of linea r range ATR - Addit ional Testi ng Requi red Not Available [place] [address] [place], [address], 03/31/2022 06:31:56 03/25/20 22 03/25/2022 [facility] RIBED DRUG CONFI RMATI ON BUPRE NORPH INE 1, QN, U billing only ([id number]) Billin g Only Not Available [facility] [place], [address], 03/31/2022 06:31:56 04/08/20 22 04/08/2022 BUPRE NORPH INE PT SCREE MONIKA amphetamines Negati ve NG/mL 1,000 Elect baron olivo d by [facility] Not Available [place] [address] [place], [address], 04/13/2022 09:33:11 04/08/20 22 04/08/2022 BUPRE NORPH INE PT SCREE MONIKA benzodiazapi olivia Negati ve NG/mL 200 Not Available [facility] [place], [address], 04/13/2022 09:33:11 04/08/20 22 04/08/2022 BUPRE NORPH INE PT SCREE MONIKA buprenorphin e Positi ve NG/mL 5 Not Available [facility] [place], [address], 04/13/2022 09:33:11 04/08/20 22 04/08/2022 BUPRE NORPH INE PT SCREE MONIKA cocaine metabolite Negati ve NG/mL 150 Not Available [facility] [place], [address], 04/13/2022 09:33:11 04/08/20 22 04/08/2022 BUPRE NORPH INE PT SCREE MONIKA opiates Negati ve NG/mL 300 Not Available [facility] [place], [address], 04/13/2022 09:33:11 04/08/20 22 04/08/2022 BUPRE NORPH INE PT SCREE MONIKA oxycodone Negati ve NG/mL 300 Not Available [place] [address] [place], [address], 04/13/2022 09:33:11 04/08/20 22 04/08/2022 BUPRE NORPH INE PT SCREE MONIKA fentanyl Positi ve NG/mL 2 abnormal Not Available [address] [address] [place], [address], 04/13/2022 09:33:11 04/08/20 22 04/08/2022 BUPRE NORPH INE PT SCREE MONIKA ethyl alcohol Positi ve mg/dL 10 abnormal Not Available [place] [address] [place], [address], 04/13/2022 09:33:11 04/08/20 22 04/08/2022 BUPRE NORPH INE PT SCREE MONIKA methadone metabolite Negati ve NG/mL 300 Not Available [place] [address] [place], [address], 04/13/2022 09:33:11 04/08/20 22 04/08/2022 BUPRE NORPH INE PT SCREE MONIKA cannabinoids (THC) Negati ve NG/mL 50 Not Available [place] [address] [place], [address], 04/13/2022 09:33:11 04/08/20 22 04/08/2022 BUPRE NORPH INE PT SCREE MONIKA urine creatinine 42.7 mg/dL >20 Not Available [place] [address] [place], [address], 04/13/2022 09:33:11 04/08/20 22 04/08/2022 BUPRE NORPH INE PT SCREE MONIKA urine pH 4.10 4.5-9. 0 low Not Available [place] [address] [place], [address], 04/13/2022 09:33:11 04/08/20 22 04/08/2022 BUPRE NORPH INE PT SCREE MONIKA specific gravity 1.035 1.003- 1.035 Not Available [place] [address] [place], [address], 04/13/2022 09:33:11 04/08/20 22 04/08/2022 OPIAT E W/ FENTA NYL 6-acetylmorp sebastián Negati ve NG/mL 10 Elect baron olivo d by GINO [facility] Not Available [place] [address] [place], [address], 04/16/2022 09:49:50 04/08/20 22 04/08/2022 OPIAT E W/ FENTA NYL codeine Negati ve NG/mL 50 Not Available [facility] [place], [address], 04/16/2022 09:49:50 04/08/20 22 04/08/2022 OPIAT E W/ FENTA NYL hydrocodone Negati ve NG/mL 50 Not Available [facility] [place], [address], 04/16/2022 09:49:50 04/08/20 22 04/08/2022 OPIAT E W/ FENTA NYL hydromorphon e Negati ve NG/mL 50 Not Available [facility] [place], [address], 04/16/2022 09:49:50 04/08/20 22 04/08/2022 OPIAT E W/ FENTA NYL morphine Negati ve NG/mL 50 Not Available [facility] [place], [address], 04/16/2022 09:49:50 04/08/20 22 04/08/2022 OPIAT E W/ FENTA NYL norhydrocodo ne Negati ve NG/mL 100 Not Available [facility] [place], [address], 04/16/2022 09:49:50 04/08/20 22 04/08/2022 OPIAT E W/ FENTA NYL fentanyl Negati ve NG/mL 20 Not Available [place] [address] [place], [address], 04/16/2022 09:49:50 04/08/20 22 04/08/2022 OPIAT E W/ FENTA NYL norfentanyl Negati ve NG/mL 20 Not Available [place] [address] [place] G[place], [address], 04/16/2022 09:49:50 04/08/20 22 04/08/2022 OPIAT E W/ FENTA NYL tramadol Negati ve NG/mL 100 Not Available [place] [address] [place], [address], 04/16/2022 09:49:50 04/08/20 22 04/08/2022 OPIAT E W/ FENTA NYL legend Abbrev iation s OLR - Outsi de of linea r range Not Available [place] [address] [place], [address], 04/16/2022 09:49:50 04/08/20 22 04/08/2022 OPIAT E W/ FENTA NYL billing only ([id number]) Billin g Only Not Available [place] [address] [place], [address], 04/16/2022 09:49:50 Result Notes None recorded. Problems Name Problem SNOMED Code Status Onset Date Resolution Date Notes Provider Name and Address Organization Details Recorded Time Knee joint valgus deformity 279622551 Active 2020 on disability Not Available [facility] 05:31:38 Depressiv e disorder 79292124 Active 2020 on disability Not Available [facility] 05:31:38 Type 2 diabetes mellitus 27931784 Active 2020 Not Available [facility] 05:31:38 Essential hypertens ion 63277325 Active 2020 Not Available [facility] 05:31:38 Opioid dependenc e 46022977 Active 2021 Mary Carmen Friedman NP [address] [place], [address] , [facility] 2 09:46:10 Restless legs 75077680 Active 2021 Mary Carmen Friedman NP [address] [place], [address] , [facility] 2 13:15:26 Adhesive capsuliti s of shoulder 586863967 Active 2021 Mary Carmen Friedman NP [address] [place] [address], [place], [address] , [facility] 2 13:08:29 Viral hepatitis C 21279842 Active 2021 Mary Carmen Friedman NP [address] [place] [address], [place], [address] , [facility] 2 13:44:29 Problem Notes None recorded. Procedures Surgical History Date Name Laterality Status Provider Name and Address Organization Details Recorded Time 04/22/2022 46493, G0480, G0481 completed [facility] 04/22/2022 09:42:02 02/25/2022 83086, G0480, G0481 completed [facility] 02/25/2022 13:24:56 10/22/2021 46896, G0480, G0481 completed Mary Carmen Friedman NP [address] [place] [address], [address], [facility] 10/22/2021 09:03:24 Imaging Results None recorded. Procedure Notes None recorded. Medical Equipment None Reported. Allergies Allergen ID Allergen Name Allergen Category Reaction Reaction Severity Criticality Documentation Date Start Date Code Code System Note Provider Name and Address Organization Details Recorded Time 2445 lisinopri l medicatio n cough Not available Not available 10/17/2021 07102 RxNorm Not Available [facility] 06:25:20 2454 codeine medicatio n cough Not available Not available 10/17/2021 2670 RxNorm Not Available [facility] 06:25:20 Medications Name Sig Start Date Stop [...] % 92 % 162 mm[Hg] 82 mm[Hg] [facility] [employer] 2 13:21:14 Date Recorded Body height Body temperature Heart rate Oxygen saturation Oxygen saturation in Arterial blood by Pulse oximetry Systolic blood pressure Diastolic blood pressure Provider Name and Address Organization Details Last Updated DateTime 2 157.48 cm 96.9 [degF] 90 /min 91 % 91 % 162 mm[Hg] 82 mm[Hg] [facility] [employer] 2 12:48:42 Date Recorded Body height Body temperature Heart rate Oxygen saturation Oxygen saturation in Arterial blood by Pulse oximetry Systolic blood pressure Diastolic blood pressure Provider Name and Address Organization Details Last Updated DateTime 2 157.48 cm 96.4 [degF] 106 /min 94 % 94 % 148 mm[Hg] 78 mm[Hg] [facility] 2 13:42:08 Date Recorded Body height Body temperature Heart rate Oxygen saturation Oxygen saturation in Arterial blood by Pulse oximetry Systolic blood pressure Diastolic blood pressure Provider Name and Address Organization Details Last Updated DateTime 2 157.48 cm 96.6 [degF] 83 /min 99 % 99 % 172 mm[Hg] 98 mm[Hg] [facility] 2 13:36:37 Date Recorded Body height Body temperature Heart rate Oxygen saturation Oxygen saturation in Arterial blood by Pulse oximetry Systolic blood pressure Diastolic blood pressure Provider Name and Address Organization Details Last Updated DateTime 2 157.48 cm 96.4 [degF] 100 /min 97 % 97 % 162 mm[Hg] 82 mm[Hg] [facility] 2 09:43:47 Social History Question Answer Notes [...] 12/16/2021 *Primary Care Provider Yes Dr. Vargas [facility] Information not available 12/16/2021 *Other Medical Issues [...] SNOMED-CT Code Diagnosis ICD10 Code Diagnosis Note [id number] [facility] [address] [facility] [place] [phone] 08/26/2021 00:00:00 08/26/2021 14:18:42 [id number] [facility] [address] [facility] [place] [address] 08/19/2021 00:00:00 08/19/2021 14:43:24 [id number] [facility] [address] [facility] [place] [place] [address] 09/24/2021 00:00:00 09/24/2021 13:42:39 [id number] [facility] [facility],[address] [place] [address] 09/17/2021 00:00:00 09/17/2021 14:33:56 [id number] [facility] [facility],[address] [place] [address] 10/01/2021 00:00:00 10/01/2021 13:55:43 [id number] [facility] [facility],[address] [place] [address] 09/02/2021 00:00:00 09/02/2021 13:36:53 [id number] [facility] [facility],[address] [place] [address] 10/15/2021 00:00:00 10/15/2021 10:49:59 [id number] [facility], INPATIENT AUDITOR [facility] [facility],[address] [place] [address] 10/22/2021 13:32:17 10/22/2021 13:53:31 Opioid dependence 46148113 F11.20 unstable - new to care Essential hypertension [id number] I10 unstable [id number] [facility], INPATIENT AUDITOR [facility] [facility],[address] [place] [address] 11/05/2021 13:31:36 11/05/2021 14:04:00 Opioid dependence 59318277 F11.20 unstable - recent use [id number] [facility], INPATIENT AUDITOR [facility] [facility],[address] [place] [address] 11/12/2021 13:32:01 11/12/2021 13:50:44 Opioid dependence 74002649 F11.20 unstable - recent use [id number] [facility], INPATIENT AUDITOR [facility] [facility],[address] [place] [address] 11/19/2021 13:28:46 11/19/2021 13:50:12 Opioid dependence 44474267 F11.20 unstable - recent use [id number] [facility], INPATIENT AUDITOR [facility] [facility],[address] [place] [address] 11/26/2021 13:22:00 11/26/2021 13:33:43 Opioid dependence 49528329 F11.20 unstable - recent use [id number] [facility], INPATIENT AUDITOR [facility] [facility],[address] [place] [address] 12/10/2021 13:24:47 12/10/2021 13:41:04 Opioid dependence 50880559 F11.20 unstable - recent use [id number] [facility], INPATIENT AUDITOR [facility] [facility],[address] [place] [address] 12/24/2021 13:20:13 12/24/2021 13:37:31 Opioid dependence 90017219 F11.20 unstable - recent use [id number] [facility], INPATIENT AUDITOR [facility] [facility],[address] [place] [address] 12/31/2021 12:59:42 12/31/2021 13:20:07 Opioid dependence 13326316 F11.20 unstable - recent use Restless legs [id number] G 25.81 unstable [id number] [facility], INPATIENT AUDITOR [facility] [facility],[address] [place] [address] 01/07/2022 10:17:53 01/07/2022 10:44:51 Opioid dependence 99329143 F11.20 unstable - recent use [id number] [facility], INPATIENT AUDITOR [facility] [facility],[address] [place] [address] 02/18/2022 13:27:58 02/18/2022 13:45:49 Opioid dependence 58295379 F11.20 unstable - recent use [id number] [facility], INPATIENT AUDITOR [facility] [facility],[address] [place] [address] 01/21/2022 13:13:05 01/21/2022 13:28:10 Opioid dependence 55334645 F11.20 unstable - recent use [id number] [facility], INPATIENT AUDITOR [facility] [facility],[address] [place] [address] 01/28/2022 13:19:31 01/28/2022 13:28:05 Opioid dependence 97144584 F11.20 unstable - recent use [id number] [facility], INPATIENT AUDITOR [facility] [facility],[address] [place] [address] 02/25/2022 13:21:54 02/25/2022 13:40:25 Opioid dependence 49146306 F11.20 unstable - recent use [id number] Mary Carmen Friedman, INPATIENT AUDITOR [facility] [facility],[address] [place] [address] 03/04/2022 13:13:48 03/04/2022 13:29:11 Opioid dependence 55436748 F11.20 unstable - recent use [id number] Mary Carmen Friedman, INPATIENT AUDITOR [facility] [facility],[address] [place] [address] 03/11/2022 12:45:57 03/11/2022 13:10:12 Opioid dependence 10186015 F11.20 unstable - recent use [id number] Mary Carmen Friedman, INPATIENT AUDITOR [facility] [facility],[address] [place] [address] 03/25/2022 13:36:46 03/25/2022 13:50:49 Opioid dependence 42677327 F11.20 unstable [id number] Mary Carmen Friedman, INPATIENT AUDITOR [facility] [facility],[address] [place] [address] 04/08/2022 13:25:18 04/08/2022 13:47:59 Opioid dependence 27655353 F11.20 unstable [id number] Delma Green, INPATIENT AUDITOR [facility] [facility],[address] [place] [address] 04/22/2022 09:39:24 04/22/2022 10:01:13 Opioid dependence 86403112 F11.20 UNSTABLE [id number] Dee Thompson [facility] [place] [address] [place] [address],[address] [place] [address] 05/06/2022 11:21:43 05/06/2022 13:21:21 [id number] Dee Thompson [facility] [place] [facility],[address] [place] [address] 05/18/2022 08:54:48 05/18/2022 08:59:21 [id number] DALTON Kraus [place] [address] [place] [address] 05/20/2022 11:29:21 05/20/2022 11:32:37 [id number] DALTON Kraus [place] [facility], [address] [facility] [place] [address] 06/16/2022 13:49:39 06/16/2022 13:54:40 Health Concerns Section Related Observation LastModified by Organization Detai ls LastModified Time None Recorded Concern Status LastModified by Organization Details LastModified Time None Recorded Advance Directives Directive None Recorded Payers Encounter Date Sequence Insurance Name Policy Number Policy Salmon Covered Member ID Salmon Member ID Guarantor Name 03/04/2022 2 [facility] (MEDICAID) Lea Vasquez [id number] Lea Vasquez 03/04/[address] [facility] (MEDICARE REPLACEMENT/A DVANTAGE - PPO) [id number] Lea Vasquez [id number] Lea Vasquez 03/11/2022 2 [facility] (MEDICAID) Lea Vasquez [id number] Lea Vasquez 03/11/[address] [facility] (MEDICARE REPLACEMENT/A DVANTAGE - PPO) [id number] Lea Vasquez [id number] Lea Vasquez 03/25/2022 2 [facility] (MEDICAID) Lea Vasquez [id number] Lea Vasquez 03/25/[address] [facility] (MEDICARE REPLACEMENT/A DVANTAGE - PPO) [id number] Lea Vasquez [id number] Lea Vasquez 04/08/2022 2 [facility] (MEDICAID) Lea Vasquez [id number] Lea Vasquez 04/08/[address] [facility] (MEDICARE REPLACEMENT/A DVANTAGE - PPO) [id number] Lea Vasquez [id number] Lea Vasquez 04/22/2022 2 [facility] (MEDICAID) Lea Vasquez [id number] Lea Vasquez 04/22/[address] [facility] (MEDICARE REPLACEMENT/A DVANTAGE - PPO) [id number] Lea Vasquez [id number] Lea Vasquez Notes Date Note Type Note Provider Name and Address Organization Details Recorded Time 03/04/2022 text/html This patient is here today for their follow-up MAT visit. They are being treated for OUD with buprenorphine PLEASE SEE A & P SECTION FOR FULL VISIT NOTE Mary Carmen Friedman NP [address] [place], [address], [facility] [employer] [facility] 03/04/2022 14:00:30 03/11/2022 text/html This patient is here today for their follow-up MAT visit. They are being treated for OUD with buprenorphine PLEASE SEE A & P SECTION FOR FULL VISIT NOTE Mary Carmen Friedman NP [address] [place], [address], [facility] [employer] [facility] 03/11/2022 13:32:58 03/25/2022 text/html This patient is here today for their follow-up MAT visit. They are being treated for OUD with buprenorphine PLEASE SEE A & P SECTION FOR FULL VISIT NOTE Mary Carmen Friedman NP [address] [place], [address], [facility] [employer] [facility] 03/25/2022 14:12:31 04/08/2022 text/html This patient is here today for their follow-up MAT visit. They are being treated for OUD with buprenorphine PLEASE SEE A & P SECTION FOR FULL VISIT NOTE Mary Carmen Friedman NP [address] [place], [address], [facility] [employer] [facility] 04/08/2022 13:57:35 04/22/2022 text/html This patient is here today for their follow-up MAT visit. They are being treated for OUD with buprenorphine. PLEASE SEE A & P SECTION FOR FULL VISIT NOTE Delma Green NP [address] [place], [address], [facility] [employer] [facility] 04/22/2022 10:07:31 OBGyn Episode No OBEpisode recorded.
--- OUTSIDE RECORDS SUMMARY | 2024-10-25 14:02 | XMS_ITS | Encounter Summary ---
Author Organization [facility] Address [address] [place] [address] Care Team Providers Care Program Aide Group Work Name Role Phone Sharon Vargas MD Primary Care Provider [phone] Reason for Visit * Reason Onset Date Comments Follow-up 12/29/2023 Encounter Details Date Type Department Care Team (Late st Contact Info) Description 12/29/2023 Telephone [facility] [address] [place], [place] [address] Verna Cerna COA Follow-up Social History Tobacco [...] Description 10/27/2024 14:15 EST Office Visit [facility] [address] [place] [address] Consuelo Nicole MD [address] [place] [address] documented as of this encounter Visit Diagnoses Not on filedocumented in this encounter Care Teams Program Aide Group Work Relationship Specialty Start Date End Date Sharon Vargas MD [address] [place] [address] PCP - General 09/09/15 documented as of this encounter
--- OUTSIDE RECORDS SUMMARY | 2024-10-25 14:02 | XMS_ITS | Encounter Summary ---
Author Organization [facility] Address [address] [place] [address] Care Team Providers Care Alkylation Operator Name Role Phone Sharon Vargas MD Primary Care Provider [phone] Encounter Details Date Type Department Care Team (Late st Contact Info) Description 10/06/2024 Lab Requisition [facility] Pathology & Laboratory Medicine - [facility] [address] [place] [address] Outr Resulting Lab, Provider Social History Tobacco [...] Info) Description 10/27/2024 14:15 EST Office Visit [facility] Ophthalmology [facility] [address] [place] [address] Consuelo Nicole MD [address] [place] [address] documented as of this encounter Visit Diagnoses Not on filedocumented in this encounter Care Teams Alkylation Operator Relationship Specialty Start Date End Date Sharon Vargas MD [address] [facility] [place] [address] PCP - General 09/09/15 documented as of this encounter
--- OUTSIDE RECORDS SUMMARY | 2024-10-25 14:02 | XMS_ITS | Encounter Summary ---
Author Organization [facility] Address [address] [place] [address] Care Team Providers Care Dinkey Dispatcher Name Role Phone Sharon Vargas MD Primary Care Provider [phone] Encounter Details Date Type Department Care Team (Late st Contact Info) Description 04/01/2022 Lab Requisition [facility] Pathology & Laboratory Medicine - [facility] [address] [place] [address] Outr Resulting Lab, Provider Social History Tobacco [...] Info) Description 10/27/2024 14:15 EST Office Visit [facility] [address] [place] [address] Consuelo Nicole MD [address] [place] [address] documented as of this encounter Procedures Procedure Name Priority Date/Time Associated Diagnosis Comments GGT Routine 04/01/2022 14:29 EDT documented in this encounter Results * (ABNORMAL) GGT (04/01/2022 14:29 EDT) GGT 224(H) <44 U/L 04/01/2022 21:22 EDT [facility] Blood VENOUS BLOOD / Unknown 04/01/2022 14:29 EDT 04/01/2022 21:09 EDT us Provider Outr Resulting Lab CHEMISTRY & BLOOD GA S ORDERABLES Final Result Performing Organization Address City/State/[facility] Co de Phone Number [facility] [address] [place] [address] documented in this encounter Visit Diagnoses Not on filedocumented in this encounter Care Teams Dinkey Dispatcher Relationship Specialty Start Date End Date Sharon Vargas MD [address] [place] [address] PCP - General 09/09/15 documented as of this encounter
--- OUTSIDE RECORDS SUMMARY | 2024-10-25 14:02 | XMS_ITS | Encounter Summary ---
Author Organization [facility] Address [address] [place] [address] Care Team Providers Care Residential Therapist Name Role Phone Unavailable Primary Care Provider Unavailabl e Encounter Details Date Type Department Care Team (Latest Contact Info) Description 04/03/2003 19:00 EDT Hospital Encounter [facility] Emergency Department - [facility] [place] [address] [place], [place] [address] Emergency, Default, MD Discharge Disposition: Home or [...] Info) Description 10/27/2024 14:15 EST Office Visit [facility] Ophthalmology [facility] [address] [place] [address] Consuelo Nicole MD [address] [place] [address] documented as of this encounter Procedures Procedure [...] ? LEA MCGOWAN ? Accession #: ? [id number] ? : ? 1975 (Age: 34) ??F [...] reviewed and electronically signed by: ? Marie [place], [place](ASCP) ? Report Date: ??07/03/2009 14:12 ? End of Report ? NATHAN SETHI 06/26/2009 06/28/2009 us Sharon Vargas MD PATHOLOGY ORDERABLES Final Res ult NATHAN SETHI [address] [place] [address] documented in this encounter Visit Diagnoses Not on filedocumented in this encounter
--- OUTSIDE RECORDS SUMMARY | 2024-10-25 14:02 | XMS_ITS | Clinical Summary ---
Author Organization [facility] Address [address] [place] [address] Care Team Providers Care Cnc Operator Name Role Phone Sharon Vargas MD Primary Care Provider [phone] Allergies Active Allergy Reactions Criticality Noted Date [...] Encounters Date Type Department Care Team Description 10/21/2024 Lab Requisition [facility] Pathology & Laboratory [address] [address] Outr Resulting Lab, Provider 10/21/2024 Lab Requisition [facility] Pathology & Laboratory [address] [address] Outr Resulting Lab, Provider 10/20/2024 Telephone [facility] Nephrology [address] [address] Cherrie Fam MD Appointment Related 10/20/2024 Telephone [facility] NEPHROLOGY [address] [place] [address] Cherrie Fam MD Follow-up 10/07/2024 Lab Requisition [facility] Pathology & Laboratory [address] [address] Outr Resulting Lab, Provider 10/06/2024 Lab Requisition [facility] Pathology & Laboratory [address] [address] Outr Resulting Lab, Provider from Last 3 [...] Description 10/27/2024 14:15 EST Office Visit [facility] Ophthalmology [facility] [address] [place] [address] Consuelo Nicole MD [address] [place] [phone] Health Maintenance Due Date Last Done Comments Foot Exam 1975 Lipid Profile Screening (Cholesterol) 1978 Pneumococcal Immunization (1 of 2 - PCV) 1981 Hepatitis B Vaccine (1 of 3 - 19+ 3-dose series) 1994 Hemoglobin A1C (Ha1C) 11/28/2014 05/28/2014 Microalbumin/Creatinine Ratio 10/16/2016 10/16/2015 Eye Exam 03/16/2025 03/16/2024, 04/03/2024, 12/29/2023 COVID-19 Vaccine Completed 09/01/2024, , 11/04/2021, Additional history exists Hepatitis C Screen Completed 10/06/2024, 0 01/01/2023, 01/01/2023 Procedures Procedure Name Priority Date/Time Associated Diagnosis Comments HOLD SST Today 10/20/2024 13:10 EST C3 COMPLEMENT Routine 10/20/2024 13:10 EST C4 COMPLEMENT Routine 10/20/2024 13:10 EST ANTI NUCLEAR AB (DEIDRE), IFA Routine 10/20/2024 13:10 EST HEPATITIS B CORE ANTIBODY (TOTAL) Today 10/20/2024 13:10 EST HEPATITIS B SURFACE ANTIGEN Today 10/20/2024 13:10 EST HEPATITIS A TOTAL ANTIBODY W REFLEX Today 10/20/2024 13:10 EST HCV RNA DETECT QUANT Routine 10/06/2024 14:00 EST URINE [id number] E RATIO (ACR) Routine 10/16/2015 HEMOGLOBIN A1C Routine 05/28/2014 from Last 3 Months or Most Recently Relevant to Health Maintenance Results * HOLD SST (10/20/2024 13:10 EST) Hold Hold 10/21/2024 23:01 EST [facility] Blood VENOUS BLOOD / Unknown 10/20/2024 13:10 EST 10/21/2024 21:55 EST us Provider Outr Resulting Lab LAB INFO SERVICE AND SUPPORT & PHONE RESULT Final Result Performing Organization Address City/[facility]/ZIP Co de Phone Number [facility] [address] [place] [phone] * HEPATITIS A TOTAL ANTIBODY W REFLEX (10/20/2024 13:10 EST) Hepatitis A Antibody, Total Negative Negative 10/23/2024 11:22 EST [facility] Blood VENOUS BLOOD / Unknown 10/20/2024 13:10 EST 10/21/2024 21:55 EST Narrative [facility] - 10/23/2024 11:22 EST The result of this assay can be falsely elevated (Positive) due to the consumption of Biotin. us Provider Outr Resulting Lab CHEMISTRY & BLOOD GA S ORDERABLES Final Result Performing Organization Address [facility]/ZIP Co de Phone Number [facility] [address] [place] [address] * HEPATITIS B CORE ANTIBODY (TOTAL) (10/20/2024 13:10 EST) Hepatitis B Core Ab, Total Negative Negative 10/23/2024 11:41 EST [facility] Blood VENOUS BLOOD / Unknown 10/20/2024 13:10 EST 10/21/2024 21:55 EST us Provider Outr Resulting Lab CHEMISTRY & BLOOD GA S ORDERABLES Final Result [facility] [address] [place] [address] * HEPATITIS B SURFACE ANTIGEN (10/20/2024 13:10 EST) Hep B Surface Ag Negative Negative 10/23/2024 10:42 EST [facility] Blood VENOUS BLOOD / Unknown 10/20/2024 13:10 EST 10/21/2024 21:55 EST us Provider Outr Resulting Lab CHEMISTRY & BLOOD GA S ORDERABLES Final Result [facility] [address] [place] [address] * C3 COMPLEMENT (10/20/2024 13:10 EST) C3 Complement 151 81 - 157 mg/dL 10/23/2024 10:23 EST [facility] Blood VENOUS BLOOD / Unknown 10/20/2024 13:10 EST 10/21/2024 21:58 EST us Provider Outr Resulting Lab CHEMISTRY & BLOOD GA S ORDERABLES Final Result [facility] [address] [place] [address] * C4 COMPLEMENT (10/20/2024 13:10 EST) C4 Complement 28 13 - 39 mg/dL 10/23/2024 10:23 EST [facility] Blood VENOUS BLOOD / Unknown 10/20/2024 13:10 EST 10/21/2024 21:58 EST us Provider Outr Resulting Lab CHEMISTRY & BLOOD GA S ORDERABLES Final Result Performing Organization Address City/[facility]/ZIP Co de Phone Number [facility] [address] [place] [address] * (ABNORMAL) ANTI NUCLEAR AB (DEIDRE), IFA (10/20/2024 13:10 EST) Pathologist [facility] DEIDRE Interpretation Positive(A) Negative 10/23/2024 14:43 EST [facility] Comment: For titers greater than or equal to 1:160 (except the centromere and nucleolar patterns) it is recommended that specific follow-up autoantibody testing ??(such as for dsDNA and Extractable Nuclear Antigens) be performed on all diffuse and/or speckled patterns NOTE: For add-on testing dsDNA is stable for 7 days refrigerated while Extractable Nuclear Antigens are only stable for 48 hours refrigerated. DEIDRE Titer and Pattern 1 1:160 Speckled 10/23/2024 14:43 EST [facility] Blood VENOUS BLOOD / Unknown 10/20/2024 13:10 EST 10/21/2024 21:58 EST [facility] - 10/23/2024 14:43 EST Results were obtained with the [employer] NOVA Lite HEp-2 DEIDRE Kit by indirect immunofluorescence. us Provider Outr Resulting Lab IMMUNOLOGY AND SEROL OGY ORDERABLES Final Result Performing Organization Address City/State/[facility] Co de Phone Number [facility] [address] [place] [address] * (ABNORMAL) HCV RNA DETECT QUANT (10/06/2024 14:00 EST) Pathologist [facility] HCV RNA Qualitative Detected( A) Undetected 10/09/2024 11:37 EST [facility] HCV RNA Quantitative 2,950,000 (H) Undetected IU/mL 10/09/2024 11:37 EST [facility] Blood VENOUS BLOOD / Unknown 10/06/2024 14:00 EST 10/07/2024 22:18 EST Narrative [facility] - 10/09/2024 11:37 EST The quantification range of this assay is 15 IU/mL to 100,000,000 IU/mL. Testing was performed using the Jaron HCV test ([employer] - is now [employer] with the jaron 6800 System. us Provider Outr Resulting Lab CHEMISTRY & BLOOD GA S ORDERABLES Final Result [facility] [address] [place] [address] * ALBUMIN, URINE (10/16/2015) Microalb ug/mg Crea, External 312.7 [facility] Microalb mg/dl, External 84.7 [facility] Creatinine, Random U (UCRR), External 27.09 [facility] Urine specimen (specimen) 10/16/2015 Sharon Vargas MD CHEMISTRY & BLOOD GAS ORDERABL ES Edited Result - Final Performing Organization Address [facility] Co de Phone Number [facility] * HEMOGLOBIN A1C (05/28/2014) Hemoglobin A1C, External 8.7 [facility] Est Avg Glucose, External [facility] Blood specimen (specimen) 05/28/2014 Sharon Vargas MD CHEMISTRY & BLOOD GAS ORDERABL ES Final Result Performing Organization Address [facility] Co de Phone Number [facility] from Last 3 Months or Most Recently Relevant to Health Maintenance Insurance [place] Care Teams Cnc Operator Relationship Specialty Start Date End Date Sharon Vargas MD [address] [place] [phone] PCP - General 09/09/15
--- OUTSIDE RECORDS SUMMARY | 2024-10-25 14:02 | XMS_ITS | Encounter Summary ---
Author Organization [facility] Address [address] [place] [address] Care Team Providers Care Whirley Operator Name Role Phone Sharon Vargas MD Primary Care Provider [phone] Encounter Details Date Type Department Care Team (Late st Contact Info) Description 06/26/2021 Lab Requisition [facility] Pathology & Laboratory Medicine - [facility] [address] [place] [address] Outr Resulting Lab, Provider Social History Tobacco [...] Office Visit [facility] Ophthalmology [facility]3] [address] [place] [address] Consuelo Nicole MD [address] [place] [address] documented as of this encounter Procedures Procedure [...] AL ORDERABLES Final Result Performing Organization Address City/[facility]/ZIP Co de Phone Number [facility] [address] [place] [address] * COVID-19 TESTING (06/25/2021 16:45 EDT) COVID-19 rt-PCR Result Negative Negative 06/27/2021 11:08 EDT [facility] Comment: This test has not [...] performed using the jaron SARS-CoV-2 assay ([employer] on the Jaron 6800 System Performing Lab Jaron [address] [facility] Lab 06/27/2021 11:08 EDT [facility] Swab 06/25/2021 16:4 5 EDT 06/26/2021 16:08 EDT us Provider Outr Resulting Lab MICROBIOLOGY - GENER AL ORDERABLES Final Result Performing Organization Address City/[facility]/ZIP Co de Phone Number [facility] [address] [place] [address] documented in this encounter Visit Diagnoses Not on filedocumented in this encounter Care Teams Whirley Operator Relationship Specialty Start Date End Date Sharon Vargas MD [address] [place] [phone] PCP - General 09/09/15 documented as of this encounter
--- OUTSIDE RECORDS SUMMARY | 2024-10-25 14:02 | XMS_ITS | Encounter Summary ---
Author Organization [facility] Address [address] [place] [address] Care Team Providers Care Assistant Producer Name Role Phone Sharon Vargas MD Primary Care Provider [phone] Encounter Details Date Type Department Care Team (Late st Contact Info) Description 10/21/2024 Lab Requisition [facility] Pathology & Laboratory Medicine - [facility] [address] [place] [address] Outr Resulting Lab, Provider Social History Tobacco [...] Visit [facility] [address] [place] [address] Consuelo Nicole MD [address] [place] [phone] documented as of this encounter Procedures Procedure Name Priority Date/Time Associated Diagnosis Comments HOLD SST Today 10/20/2024 13:10 EST HEPATITIS A TOTAL ANTIBODY W REFLEX Today 10/20/2024 13:10 EST HEPATITIS B CORE ANTIBODY (TOTAL) Today 10/20/2024 13:10 EST HEPATITIS B SURFACE ANTIGEN Today 10/20/2024 13:10 EST documented in this encounter Results * HOLD SST (10/20/2024 13:10 EST) Hold Hold 10/21/2024 23:01 EST [facility] Blood VENOUS BLOOD / Unknown 10/20/2024 13:10 EST 10/21/2024 21:55 EST us Provider Outr Resulting Lab LAB INFO SERVICE AND SUPPORT & PHONE RESULT Final Result Performing Organization Address [facility]/ZIP Co de Phone Number [facility] [address] [place] [address] * HEPATITIS B CORE ANTIBODY (TOTAL) (10/20/2024 13:10 EST) Hepatitis B Core Ab, Total Negative Negative 10/23/2024 11:41 EST [facility] Blood VENOUS BLOOD / Unknown 10/20/2024 13:10 EST 10/21/2024 21:55 EST us Provider Outr Resulting Lab CHEMISTRY & BLOOD GA S ORDERABLES Final Result Performing Organization Address [facility]/ZIP Co de Phone Number [facility] [address] [place] [address] * HEPATITIS B SURFACE ANTIGEN (10/20/2024 13:10 EST) Hep B Surface Ag Negative Negative 10/23/2024 10:42 EST [facility] Blood VENOUS BLOOD / Unknown 10/20/2024 13:10 EST 10/21/2024 21:55 EST us Provider Outr Resulting Lab CHEMISTRY & BLOOD GA S ORDERABLES Final Result Performing Organization Address [facility]/ZIP Co de Phone Number [facility] [address] [place] [address] * HEPATITIS A TOTAL ANTIBODY W REFLEX (10/20/2024 13:10 EST) Hepatitis A Antibody, Total Negative Negative 10/23/2024 11:22 EST [facility] Blood VENOUS BLOOD / Unknown 10/20/2024 13:10 EST 10/21/2024 21:55 EST Narrative [facility] - 10/23/2024 11:22 EST The result of this assay can be falsely elevated (Positive) due to the consumption of Biotin. us Provider Outr Resulting Lab CHEMISTRY & BLOOD GA S ORDERABLES Final Result Performing Organization Address City/State/[facility] Co de Phone Number [facility] [address] [place] [address] documented in this encounter Visit Diagnoses Not on filedocumented in this encounter Care Teams Assistant Producer Relationship Specialty Start Date End Date Sharon Vargas MD [address] [place] [phone] PCP - General 09/09/15 documented as of this encounter
--- OUTSIDE RECORDS SUMMARY | 2024-10-25 14:02 | XMS_ITS | Encounter Summary ---
Author Organization [facility] Address [address] [place] [address] Care Team Providers Care City Secretary Name Role Phone Sharon Vargas MD Primary Care Provider [phone] Encounter Details Date Type Department Care Team (Late st Contact Info) Description 10/21/2024 Lab Requisition [facility] Pathology & Laboratory Medicine - [facility] [address] [place] [address] Outr Resulting Lab, Provider Social History Tobacco [...] Info) Description 10/27/2024 14:15 EST Office Visit [facility] Ophthalmology [facility] [address] [place] [address] Consuelo Nicole MD [address] [place] [phone] documented as of this encounter Procedures Procedure Name Priority Date/Time Associated Diagnosis Comments C3 COMPLEMENT Routine 10/20/2024 13:10 EST C4 COMPLEMENT Routine 10/20/2024 13:10 EST ANTI NUCLEAR AB (DEIDRE), IFA Routine 10/20/2024 13:10 EST documented in this encounter Results * C3 COMPLEMENT (10/20/2024 13:10 EST) C3 Complement 151 81 - 157 mg/dL 10/23/2024 10:23 EST [facility] Blood VENOUS BLOOD / Unknown 10/20/2024 13:10 EST 10/21/2024 21:58 EST us Provider Outr Resulting Lab CHEMISTRY & BLOOD GA S ORDERABLES Final Result Performing Organization Address City/[facility]/ZIP Co de Phone Number [facility] [address] [place] [address] * C4 COMPLEMENT (10/20/2024 13:10 EST) Pathologist [facility] C4 Complement 28 13 - 39 mg/dL 10/23/2024 10:23 [facility] Blood VENOUS BLOOD / Unknown 10/20/2024 13:10 EST 10/21/2024 21:58 EST us Provider Outr Resulting Lab CHEMISTRY & BLOOD GA S ORDERABLES Final Result Performing Organization Address [facility] Co de Phone Number [facility] [address] [place] [address] * (ABNORMAL) ANTI NUCLEAR AB (DEIDRE), IFA (10/20/2024 13:10 EST) Pathologist [facility] DEIDRE Interpretation Positive(A) Negative 10/23/2024 14:43 [facility] Comment: For titers greater [...] Pattern 1 1:160 Speckled 10/23/2024 14:43 EST [facility] Blood VENOUS BLOOD / Unknown 10/20/2024 13:10 EST 10/21/2024 21:58 EST Narrative [facility] - 10/23/2024 14:43 EST Results were obtained with the [employer] L[employer] HEp-2 DEIDRE Kit by indirect immunofluorescence. us Provider Outr Resulting Lab IMMUNOLOGY AND SEROL OGY ORDERABLES Final Result Performing Organization Address City/State/[facility] Co de Phone Number [facility] [address] [place] [address] documented in this encounter Visit Diagnoses Not on filedocumented in this encounter Care Teams City Secretary Relationship Specialty Start Date End Date Sharon Vargas MD [address] [place] [address] PCP - General 09/09/15 documented as of this encounter
--- OUTSIDE RECORDS SUMMARY | 2024-10-25 14:02 | XMS_ITS | Encounter Summary ---
Author Organization [facility] Address [address] [place] [address] Care Team Providers Care Bronzer Name Role Phone Sharon Vargas MD Primary Care Provider [phone] Reason for Visit * Reason Comments Eye Problem * Prior Authorization (Routine) - Authorized Specialty Diagnoses / Procedures Referred By Johnnie eugene Referred To Contact Diagnoses Diabetic macular edema (HCC-CMS) Procedures NH INTRAVITREAL NJX PHARMACOLOGIC AGT SPX NH AFLIBERCEPT INJECTION NH BEVACIZUMAB INJECTION [address] [address] Phone: tel: fax: [address] [address] Phone: tel: fax: Referral ID Status Reason Start Date Expiration Date V isits Requested Visits Authorized [id number] Authorized 2 2 Encounter Details Date Type Department Care Team (Late st Contact Info) Description 02/11/2024 14:00 EDT Office Visit [address] [id number] Hung Harp MD [address] [place] [address], [facility] [address] [place] [address] Social History Tobacco Use Types [...] edema, with long-term current use of insulin ([facility]) OCT, RETINA - OU - [...] 10/27/2024 14:15 EST Office Visit [facility] Ophthalmology [address] [address] Consuelo Nicole MD [address] [place] [address] documented as of this encounter Procedures Procedure Name Priority Date/Time Associated Diagnosis Comments OCT, RETINA - OU - BOTH EYES Routine 02/11/2024 14:36 EDT Type 2 diabetes mellitus with both eyes affected by moderate nonproliferative retinopathy without macular edema, with long-term current use of insulin ([facility]) documented in this encounter Results * OCT, RETINA - OU - BOTH EYES (02/11/2024 14:36 EDT) Narrative [facility] OPHTHALMOLOG[facility] - 02/11/2024 16:43 EDT Right Eye Quality was poor. Scan locations included juxtafoveal. Progression has improved. Findings include intraretinal fluid. Left Eye Quality was borderline. Progression has been stable. Findings include normal foveal contour. Notes Some inner retinal atrophy both eyes OCT-A enlarged CJ left eye (poor signal right eye us Hung Harp MD OPHTH TOMOGRAPHY Final Result [facility] O[facility] documented in this encounter Visit Diagnoses Diagnosis Type 2 diabetes mellitus with both eyes affected by moderate nonproliferative retinopathy without macular edema, with long-term current use of insulin ([facility])- Primary Combined forms of age-related cataract [...] all 4 quadrants. No alireza Care Teams Bronzer Relationship Specialty Start Date End Date Sharon Vargas MD [address] [place] [phone] PCP - General 09/09/15 documented as of this encounter
--- OUTSIDE RECORDS SUMMARY | 2024-10-25 14:02 | XMS_ITS | Encounter Summary ---
Author Organization [facility] Address [address] [place] [address] Care Team Providers Care Customer Solutions Specialist Name Role Phone Unavailable Primary Care Provider Unavailabl e Encounter Details Date Type Department Care Team (Late st Contact Info) Description 04/29/2001 Results Only [facility] [address] [place] [address] [place] [address] Social History Tobacco Use Types Packs/Day Years [...] EST Office Visit [facility] [address] [place] [address] Consuelo Nicole MD [address] [place] [address] documented as of this encounter Procedures Procedure [...] Name: ? SAELEA ? Accession #: ? [id number] : ? 1975 (Age: 26) ??F ?Collect [...] electronically signed by: ? QUINCY GUALLPA MD [facility] ? Report Date: ??05/06/2001 17:41 End of Report NATHAN SETHI 04/29/2001 05/04/2001 Lizbeth Wild CNM PATHOLOGY ORDERABLES Final Res ult NATHAN SETHI [address] [place] [address] documented in this encounter Visit Diagnoses Not on filedocumented in this encounter
--- OUTSIDE RECORDS SUMMARY | 2024-10-25 14:02 | XMS_ITS | Encounter Summary ---
Author Organization [facility] Address [address] [place] [address] Care Team Providers Care Tile Sprayer Name Role Phone Sharon Vargas MD Primary Care Provider [phone] Encounter Details Date Type Department Care Team (Late st Contact Info) Description 01/02/2023 Lab Requisition [facility] Pathology & Laboratory Medicine - [facility] [address] [place] [address] Outr Resulting Lab, Provider Social History Tobacco [...] Info) Description 10/27/2024 14:15 EST Office Visit [facility] Ophthalmology [facility] [address] [place] [address] Consuelo Nicole MD [address] [place] [address] documented as of this encounter Procedures Procedure Name Priority Date/Time Associated Diagnosis Comments HCV RNA DETECT QUANT Today 01/01/2023 11:40 EDT HEPATITIS C AB W REFLEX TO HCV RNA BY PCR Routine 01/01/2023 11:40 EDT documented in this encounter Results * (ABNORMAL) HCV RNA DETECT QUANT (01/01/2023 11:40 EDT) HCV RNA Qualitative Detected( A) Undetected 01/04/2023 12:46 EDT [facility] HCV RNA Quantitative 3,370,000 (H) Undetected IU/mL 01/04/2023 12:46 EDT [facility] Blood VENOUS BLOOD / Unknown 01/01/2023 11:40 EDT 2023 15:59 EDT Narrative [facility] - 01/04/2023 12:46 EDT The quantification range of this assay is 15 IU/mL to 100,000,000 IU/mL. Testing was performed using the Jaron HCV test ([employer] with the jaron Aprilage0 System. us Provider Outr Resulting Lab CHEMISTRY & BLOOD GA S ORDERABLES Final Result Performing Organization Address [facility]/ZIP Co de Phone Number [facility] [address] [place] [address] * (ABNORMAL) HEPATITIS C AB W REFLEX TO HCV RNA BY PCR (01/01/2023 11:40 EDT) Pathologist [facility] Hep C Antibody Reactive(A ) Negative 01/04/2023 10:01 EDT [facility] Comment: Supplemental testing for HCV RNA is ordered to rule out active HCV infection. Blood VENOUS BLOOD / Unknown 01/01/2023 11:40 EDT 2023 15:59 EDT us Provider Outr Resulting Lab CHEMISTRY & BLOOD GA S ORDERABLES Final Result Performing Organization Address City/[facility]/ZIP Co de Phone Number [facility] [address] [place] [address] documented in this encounter Visit Diagnoses Not on filedocumented in this encounter Care Teams Tile Sprayer Relationship Specialty Start Date End Date Sharon Vargas MD [address] [place] [phone] PCP - General 09/09/15 documented as of this encounter
--- OUTSIDE RECORDS SUMMARY | 2024-10-25 14:02 | XMS_ITS | Encounter Summary ---
Author Organization [facility] Address [address] [place] [address] Care Team Providers Care Formal Wear Rental Clerk Name Role Phone Sharon Vargas MD Primary Care Provider [phone] Encounter Details Date Type Department Care Team (Late st Contact Info) Description 04/21/2023 Lab Requisition [facility] Pathology & Laboratory Medicine - [facility] [address] [place] [address] Outr Resulting Lab, Provider Social History Tobacco [...] 14:15 EST Office Visit [facility] [address] [place] [address] Consuelo Nicole MD [address] [place] [address] documented as of this encounter Procedures Procedure Name Priority Date/Time Associated Diagnosis Comments ANAEROBE CULTURE, REFERENCE Routine 04/21/2023 14:17 EDT documented in this encounter Results * ANAEROBE CULTURE, REFERENCE (04/21/2023 14:17 EDT) Organism ID No Anaerobes Isolated 05/01/2023 12:00 EDT [facility] Tissue ENTIRE TOE / Unknown 04/21/2023 14:17 EDT 04/21/2023 21:25 EDT us Provider Outr Resulting Lab MICROBIOLOGY - GENER AL ORDERABLES Final Result Performing Organization Address City/State/[facility] Co de Phone Number [facility] [address] [place] [address] documented in this encounter Visit Diagnoses Not on filedocumented in this encounter Care Teams Formal Wear Rental Clerk Relationship Specialty Start Date End Date Sharon Vargas MD [address] [place] [address] PCP - General 09/09/15 documented as of this encounter
--- OUTSIDE RECORDS SUMMARY | 2024-10-25 14:02 | XMS_ITS | Encounter Summary ---
Author Organization [facility] Address [address] [place] [address] Care Team Providers Care Radio Interference Supervisor Name Role Phone Sharon Vargas MD Primary Care Provider [phone] Reason for Referral * Consult, Test and Treat (Routine) - Receiving Office to Obtain Authorization Specialty Diagnoses / Procedures Referred By Johnnie eugene Referred To Contact Ophthalmology Diagnoses Type 2 diabetes mellitus with both eyes affected by moderate nonproliferative retinopathy without macular edema, with long-term current use of insulin ([facility]) Consuelo Nicole MD Phone: tel: fax: Hung Harp MD Phone: tel: fax: Referral ID Status Reason Start Date Expiration Date Visits Requested Visits Authorized [id number] Receiving Office to Obtain Authorization Specialty Services [...] Info) Description 12/29/2023 10:45 EDT Office Visit [facility] Ophthalmology [facility] [address] [place] [address] Consuelo Nicole MD [address] [place] [phone] Social History Tobacco Use Types Packs/Day Years [...] appointment is: 02/09/2024 at our office [address] [place], [place] Your surgery date for your first eye is: 03/23/2024 at [facility] (check in at Patient Registration). [...] Psychiatric: Depression Endocrine: Diabetes Hematologic: Anemia Immunologic: Injection Molding Process Technician: Exposures: None Other: Attestation: Base Eye Exam [...] lens. Refraction Manifest Refraction (Auto) Sphere Cylinder [place] Right -10.50 +2.25 154 Left -5.00 +2.50 035 Manifest Refraction #2 Sphere Cylinder [place] Right -7.25 +2.00 150 20/300 Left -3.75 Sphere 20/60 Cycloplegic Refraction Sphere Cylinder [place] Right -7.25 +2.00 150 Left [...] Office Visit [facility] Ophthalmology [address] [address] Consuelo Nicole MD [address] [place] [phone] Scheduled Referrals Name Type Priority Associated Diagnoses Orde r Schedule AMB CONS/FOLLOW UP OPHTHALMOLOGY Outpatient Referral Routine/Next Available Type 2 Diabetes Mellitus With Both Eyes Affected By Moderate Nonproliferative Retinopathy Without Macular Edema, With Long-Term Current Use Of Insulin ([facility]) Expected: 01/29/2024 (Approximate) , Expires: 12/28/2024 documented as of this encounter Procedures Procedure Name Priority Date/Time Associated Diagnosis Comments OCT, RETINA - OU - BOTH EYES Routine 12/29/2023 13:57 EDT Type 2 diabetes mellitus with both eyes affected by moderate nonproliferative retinopathy without macular edema, with long-term current use of insulin ([facility]) documented in this encounter Results * OCT, RETINA - OU - BOTH EYES (12/29/2023 13:57 EDT) Narrative [facility] OPHTHALMOLOGY - 12/29/2023 13:57 EDT OCT macula Right: signal strength: 2/10, thickness 268 microns, normal foveal contour, possible intraretinal fluid Left: signal strength: 5/10, thickness 234 microns, normal foveal contour, no intra/subretinal fluid us Consuelo Nicole MD OPHTH TOMOGRAPHY Final Resu lt [facility] OPHTHAL[facility] documented in this encounter Visit Diagnoses Diagnosis Type 2 diabetes mellitus with both eyes affected by moderate nonproliferative retinopathy without macular edema, with long-term current use of insulin ([facility])- Primary Combined forms of age-related [...] lens. Manifest Refraction #1 (Auto) Sphere Cylinder [place] Right eye -10.50 +2.25 154 Left eye -5.00 +2.50 035 Manifest Refraction #2 Sphere Cylinder [place] Right eye -7.25 +2.00 150 20/300 Left eye -3.75 Sphere 20/60 Cycloplegic Refraction Sphere Cylinder [place] Right eye -7.25 +2.00 150 Left eye -3.75 +0.75 035 20/80+1 Care Teams Radio Interference Supervisor Relationship Specialty Start Date End Date Sharon Vargas MD [address] [place] [address] [place] [phone] PCP - General 09/09/15 documented as of this encounter
--- OUTSIDE RECORDS SUMMARY | 2024-10-25 14:02 | XMS_ITS | Encounter Summary ---
Author Organization [facility] Address [address] [place] [address] Care Team Providers Care Senior Oracle Dba Name Role Phone Sharon Vargas MD Primary Care Provider [phone] Encounter Details Date Type Department Care Team (Late st Contact Info) Description 08/23/2023 Documentation Visit [facility] [address] [place], [place] [address] Kain Cantu MD [facility] [address] [place] [address] Social History Tobacco Use Types Packs/Day Years Used Date Smoking Tobacco: Never Assessed Comments Unknown Sex and Gender Information Value Date Recorded Sex Assigned at Not on file Legal Sex Female 18:01 EST Gender Identity Female 01/04/2024 11:39 EDT Sexual Orientation Not on file documented as of this encounter Progress Notes * Kain Cantu MD - 08/23/2023 1654 EST No show for clinic documented in this encounter Plan of Treatment Upcoming Encounters Date Type Department Care Team (Late st Contact Info) Description 10/27/2024 14:15 EST Office Visit [facility] Ophthalmology - [place] [address] [place], [place] [address] Consuelo Nicole MD [address] [place] [phone] documented as of this encounter Visit Diagnoses Not on filedocumented in this encounter Care Teams Senior Oracle Dba Relationship Specialty Start Date End Date Sharon Vargas MD [address] [place] [phone] PCP - General 09/09/15 documented as of this encounter
--- OUTSIDE RECORDS SUMMARY | 2024-10-25 14:02 | XMS_ITS | Encounter Summary ---
Author Organization [facility] Address [address] [place] [address] Care Team Providers Care Fuel Storage Technician Name Role Phone Unavailable Primary Care Provider Unavailabl e Encounter Details Date Type Department Care Team (Late st Contact Info) Description 09/11/2002 Results Only [facility] [address] [place] [address] Penny Vaughan, EKATERINA [address] [place] [address] Social History Tobacco Use Types [...] Office Visit [facility] [address] [place] [address] Consuelo Nicole MD [address] [place] [address] documented as of this encounter Procedures Procedure [...] ? LEA MCGOWAN ? Accession #: ? [id number] : ? 1975 (Age: 27) ??F ?Collect [...] ORDERABLES Final R esult NATHAN SETHI [address] [place] [address] documented in this encounter Visit Diagnoses Not on filedocumented in this encounter
--- OUTSIDE RECORDS SUMMARY | 2024-10-25 14:02 | XMS_ITS | Encounter Summary ---
Author Organization [facility] Address [address] [place] [address] Care Team Providers Care Tube Fitter Name Role Phone Sharon Henderson MD Primary Care Provider [phone] Encounter Details Date Type Department Care Team (Late st Contact Info) Description 12/09/2016 Results Only [facility] [phone] Sharon Henderson MD [address] [place] [address] Social History Tobacco Use Types [...] Office Visit [facility] [address] [place] [address] Consuelo Nicole MD [address] [place] [address] documented as of this encounter Procedures Procedure [...] ? FE LEA ? Accession #: ? [id number] ? : ? 1975 (Age: 41) ??F [...] 33,35,39,45,51,52, 56,58,59,66, and 68 is detected by groundman/lineman mediated amplification. High and intermediate risk HPV [...] of Report [facility] 12/09/2016 12/14/2016 us Sharon Henderson MD PATHOLOGY ORDERABLES Final Res ult [facility] [address] [place] [address] documented in this encounter Visit Diagnoses Not on filedocumented in this encounter Care Teams Tube Fitter Relationship Specialty Start Date End Date Sharon Henderson MD [address] [place] [phone] PCP - General 09/09/15 documented as of this encounter
--- OUTSIDE RECORDS SUMMARY | 2024-10-25 14:02 | XMS_ITS | Encounter Summary ---
Author Organization [facility] Address [address] [place] [address] Care Team Providers Care Middle [employer] Baseball Coach Name Role Phone Sharon Vargas MD Primary Care Provider [phone] Encounter Details Date Type Department Care Team (Late Contact Info) Description 02/24/2024 Orders Only [facility] [address] [place], [place] [phone] Consuelo Nicole MD [address] [place] [phone] Combined forms of age-related cataract of right [...] Info) Description 10/27/2024 14:15 EST Office Visit [facility] [address] [place], [place] [phone] Consuelo Nicole MD [address] [place] [phone] documented as of this encounter Visit Diagnoses Diagnosis Combined forms of age-related cataract of right eye- Primary Other and combined forms of senile cataract documented in this encounter Care Teams Middle [employer] Baseball Coach Relationship Specialty Start Date End Date Sharon Vargas MD [address] [place] [phone] PCP - General 09/09/15 documented as of this encounter
--- OUTSIDE RECORDS SUMMARY | 2024-10-25 14:02 | XMS_ITS | Encounter Summary ---
Author Organization [facility] Address [address] [place] [address] Care Team Providers Care Manager Country Name Role Phone Sharon Vargas MD Primary Care Provider [phone] Reason for Visit * Reason Comments Eye Problem Encounter Details Date Type Department Care Team (Late st Contact Info) Description 03/16/2024 10:30 EDT Office Visit [facility] Ophthalmology - [address] [phone] Hung Harp MD [address] [facility], [address] [place] [address] Social History Tobacco Use Types [...] mg bevacizumab Route: intravitreal, Site: Right Eye [facility]: [id number], Lot: [id number], Expiration date: 03/17/2024 Post-op Post injection exam [...] edema, with long-term current use of insulin ([facility]) OCT, RETINA - OU - BOTH [...] Info) Description 10/27/2024 14:15 EST Office Visit [facility] Ophthalmology [address] [address] Consuelo Nicole MD [address] [place] [address] documented as of this encounter Procedures Procedure Name Priority Date/Time Associated Diagnosis Comments OCT, RETINA - OU - BOTH EYES Routine 03/16/2024 12:13 EDT Type 2 diabetes mellitus with both eyes affected by moderate nonproliferative retinopathy and macular edema, with long-term current use of insulin ([facility]) INTRAVITREAL INJECTION, PHARMACOLOGIC AGENT - OD - RIGHT EYE Routine 03/16/2024 12:04 EDT Type 2 diabetes mellitus with both eyes affected by moderate nonproliferative retinopathy and macular edema, with long-term current use of insulin ([facility]) documented in this encounter Results * OCT, RETINA - OU - BOTH EYES (03/16/2024 12:13 EDT) Narrative [facility] OPH[facility] - 03/16/2024 12:13 EDT Right [...] Edited Result - Final Performing Organization Address [facility] de Phone Number [facility]TH[facility] * INTRAVITREAL INJECTION, PHARMACOLOGIC AGENT - OD - RIGHT EYE (03/16/2024 12:04 EDT) Narrative [facility] - 03/16/2024 12:13 EDT Time Out 03/16/2024. 11:56. Confirmed correct patient, procedure, site, and patient consented. Anesthesia Topical anesthesia was used. Anesthetic medications included Proparacaine 0.5%, Tetracaine 0.5%. Procedure Preparation included 5% betadine to ocular surface, eyelid speculum. A 30 gauge needle was used. Injection: 1.25 mg bevacizumab ??Route: intravitreal, Site: Right Eye ??[facility]: [id number], Lot: [id number], Expiration date: 03/17/2024 Post-op Post injection exam found visual acuity of at least counting fingers. The patient tolerated the procedure well. There were no complications. The patient received written and verbal post procedure care education. Post injection medications were not given. Hung Harp MD OPH CLINIC PROCEDURES Final Re sult Performing Organization Address [facility] de Phone Number [facility] documented in this encounter Visit Diagnoses Diagnosis Type 2 diabetes mellitus with both eyes affected by moderate nonproliferative retinopathy and macular edema, with long-term current use of insulin ([facility])- Primary Combined forms of age-related cataract [...] edema, with long-term current use of insulin ([facility]) Given 03/16/2024 12:13 EDT 1.25 mg Ri [...] all 4 quadrants. No alireza Care Teams Manager Country Relationship Specialty Start Date End Date Sharon Vargas MD [address] [place] [phone] PCP - General 09/09/15 documented as of this encounter
--- OUTSIDE RECORDS SUMMARY | 2024-10-25 14:02 | XMS_ITS | Encounter Summary ---
Author Organization [facility] Address [address] [place] [address] Care Team Providers Care Superintendent Laundry Name Role Phone Sharon Vargas MD Primary Care Provider [phone] Reason for Visit * Reason Onset Date Comments Appointment Related 10/20/2024 Encounter Details Date Type Department Care Team ([facility] st Contact Info) Description 10/20/[address] [facility] Nephrology - [address] [phone] Cherrie Fam MD [address] [place] [address], [address] [place] [phone] Appointment Related Social History Tobacco Use Types [...] * Telephone Encounter - Gildardo Shay - 10/24/2024 0828 EST 3rd attempt to schedule no answer no voicemail. Referral has been closed. * Telephone Encounter - Gildardo Shay - 10/23/2024 0834 EST 2nd attempt to schedule no answer no voicemail. * Telephone Encounter - Gildardo Shay - [...] EST Office Visit [facility] Ophthal[facility] [address] [place] [address] Consuelo Nicole MD [address] [place] [phone] documented as of this encounter Visit Diagnoses Not on filedocumented in this encounter Care Teams Superintendent Laundry Relationship Specialty Start Date End Date Sharon Vargas MD [address] [place] [phone] PCP - General 09/09/15 documented as of this encounter
--- OUTSIDE RECORDS SUMMARY | 2024-10-25 14:02 | XMS_ITS | Encounter Summary ---
Author Organization [facility] Address [address] [place] [address] Care Team Providers Care Punch Press Setter Name Role Phone Sharon Vargas MD Primary Care Provider Encounter Details Date Type Department Care Team (Late st Contact Info) Description 10/07/2024 Lab Requisition [facility] Pathology & Laboratory Medicine - [facility] [address] [place] [address] Outr Resulting Lab, Provider Social History Tobacco [...] 14:15 EST Office Visit [facility] [address] [place] [address] Consuelo iNcole MD [address] [place] [phone] documented as of this encounter Procedures Procedure Name Priority Date/Time Associated Diagnosis Comments HCV RNA DETECT QUANT Routine 10/06/2024 14:00 EST documented in this encounter Results * (ABNORMAL) HCV RNA DETECT QUANT (10/06/2024 14:00 EST) HCV RNA Qualitative Detected( A) Undetected 10/09/2024 11:37 EST [facility] HCV RNA Quantitative 2,950,000 (H) Undetected IU/mL 10/09/2024 11:37 EST [facility] Blood VENOUS BLOOD / Unknown 10/06/2024 14:00 EST 10/07/2024 22:18 EST Narrative [facility] - 10/09/2024 11:37 EST The quantification range of this assay is 15 IU/mL to 100,000,000 IU/mL. Testing was performed using the Jaron HCV test ([employer] with the jaron [employer] System. us Provider Outr Resulting Lab CHEMISTRY & BLOOD GA S ORDERABLES Final Result Performing Organization Address City/State/[facility] Co de Phone Number [facility] [address] [place] [address] documented in this encounter Visit Diagnoses Not on filedocumented in this encounter Care Teams Punch Press Setter Relationship Specialty Start Date End Date Sharon Vargas MD [address] [place] [phone] PCP - General 09/09/15 documented as of this encounter
--- OUTSIDE RECORDS SUMMARY | 2024-10-25 14:02 | XMS_ITS | Encounter Summary ---
Author Organization [facility] Address [address] [place] [address] Care Team Providers Care Home Health Administrator Name Role Phone Sharon Vargas MD Primary Care Provider [phone] Reason for Visit * Reason Onset Date Comments Appointment Related 03/08/2024 Encounter Details Date Type Department Care Team (Late st Contact Info) Description 03/08/2024 Telephone [facility] [address] [place], [place] [phone] Consuelo Nicole MD [address] [place] [phone] Appointment Related Social History Tobacco Use [...] Visit [facility] [address] [place], [place] [phone] Consuelo Nicole MD [address] [place] [phone] documented as of this encounter Visit Diagnoses Not on filedocumented in this encounter Care Teams Home Health Administrator Relationship Specialty Start Date End Date Sharon Vargas MD [address] [place] [phone] PCP - General 09/09/15 documented as of this encounter
--- OUTSIDE RECORDS SUMMARY | 2024-10-25 14:02 | XMS_ITS | Encounter Summary ---
Author Organization [facility] Address [address] [place] [address] Care Team Providers Care Celebrity Manager Name Role Phone Sharon Vargas MD Primary Care Provider [phone] Reason for Visit * Reason Onset Date Comments Appointment Related 11/09/2023 Encounter Details Date Type Department Care Team (Late st Contact Info) Description 11/09/2023 Telephone [facility] [address] [place], [place] [address] Consuelo Nicole MD [address] [place] [phone] Appointment Related Social History Tobacco Use Types Packs/Day Years Used Date Smoking Tobacco: Never Assessed Comments Unknown Sex and Gender Information Value Date Recorded Sex Assigned at Not on file Legal Sex Female 18:01 EST Gender Identity Female 01/04/2024 11:39 EDT Sexual Orientation Not on file documented as of this encounter Miscellaneous Notes * Telephone Encounter - Connie aRmirez - 11/09/2023 1035 EST Unable to leave [facility] [place] box set up. Contacted primary to let them know and [facility] with Dr. Nicole in 6 weeks for NPV dm exam per Dr. Nicole documented in this encounter Plan of Treatment Upcoming Encounters Date Type Department Care Team (Late st Contact Info) Description 10/27/2024 14:15 EST Office Visit [facility] [address] [place], [place] [address] Consuelo Nicole MD [address] [place] [phone] documented as of this encounter Visit Diagnoses Not on filedocumented in this encounter Care Teams Celebrity Manager Relationship Specialty Start Date End Date Sharon Vargas MD [address] [place] [phone] PCP - General 09/09/15 documented as of this encounter
--- OUTSIDE RECORDS SUMMARY | 2024-10-25 14:02 | XMS_ITS | Continuity of Care Document ---
Author Organization [place] - [facility], [facility] Address [address] [place] [address] Care Team Providers Care Tanker Serviceman Name Role Phone [facility] Ophtha lmologist RACHELL FIORE Database Security Administrator Assessment Encounter Date Assessment Date Assessment LastModified [...] She is under the care of a rubber tile floor layer at [facility], Elbert Oliver. - Plan: a. Encourage patient to schedule an appointment for toenail trimming and routine foot care with her rubber tile floor layer. COPD and Shortness of Breath - Assessment: Patient experiences increased shortness of breath and currently uses albuterol. She has a refill for Breo and expresses interest in trying Trelegy. - Plan: a. Prescribe Trelegy and send the prescription to [facility]. b. Advise patient to continue using Breo as prescribed. c. Schedule a follow-up in one month to monitor breathing and lung function. Sleep Apnea - Assessment: Patient reports symptoms indicative of sleep apnea, including mouth breathing, gasping for air, and waking abruptly due to breathing difficulties. - Plan: a. Refer patient for a sleep study at [facility] to assess for sleep apnea and [...] - Plan: a. Provide information on the [facility] [...] devoted to today's encounter, including both the jqdb-ph-owlk time with the patient and/or family/caregiver and szz-gmxi-gw-face time I personally spent is 40 minutes. [email or web address] Not available 09/01/2024 16:11:48 Plan of Treatment Reminders Order Date Submit Date Provider Last Modified By Organization Details Last Modified Time Details Appointments Nurse Visit 2024 01:00P M [place] [facility] Not available Not available Not available Follow Up 2024 01:50P M BARNEY HENDERSON Not available Not available Not available Follow Up 2024 02:30P M BARNEY HENDERSON Not available Not available Not available Lab hemoglobi n A1C, fingersti ck 2023 024 [email or web address] [facility], [address] [place] [address], [place], [address], 09/02/2024 08:08:00 Referral podiatris t referral - well known to Dr. Valentino , (over)due for nail/foot care adn general f/u. 2023 024 [email or web address] [facility], [address] [facility], [place], [address], 10/16/2024 04:49:35 sleep medicine referral - witnessed nocturnal apnea, pt with obesity, COPD, chronic opioid dependenc e; eval for central vs obstructi ve sleep apnea 2023 024 conner n21 [facility], [address] [place], [place] [address] [place], [address], 10/05/2024 06:58:37 Procedures None recorded. Surgeries None recorded. Imaging None recorded. Medication Orders Trelegy Ellipta 200 mcg-62.5 mcg-25 mcg powder for inhalatio n 2023 024 [email or web address] [employer] [address], [place], [address], 10/06/2024 14:45:17 atorvasta tin 40 mg tablet 2023 024 [email or web address] [employer] [address], [place], [address], 09/02/2024 08:08:00 escitalop karlo 10 mg tablet 2023 024 [email or web address] [employer] [address], [place], [address], 10/19/2024 11:43:11 omeprazol e 40 mg capsule,d elayed release 2023 024 [email or web address] [employer] [address], [place], [address], 09/02/2024 08:08:00 amlodipin e 5 mg tablet 2023 [email or web address] [employer] [address], [place], [address], 09/02/2024 08:08:00 Diovan HCT 320 mg-25 mg tablet 2023 [employer] [address], [place], [address], 10/19/2024 11:44:52 amitripty line 25 mg tablet 2023 [email or web address] [employer] [address], [place], [address], 09/02/2024 08:08:00 Tresiba FlexTouch U-200 insulin 200 unit/mL (3 mL) subcutane ous pen 2023 [employer] [address], [place], [address], 10/19/2024 11:50:52 metformin ER 500 mg tablet,ex tended release 24 hr 2023 [employer] [address], [place], [address], 10/19/2024 11:51:21 Accu-Chek Guide test strips 2023 [email or web address] [employer] [address], [place], [address], 09/02/2024 08:08:00 Patient TargetsNo targets recorded. Patient Instructions Encounter Date Encounter Id Patient Instructions Last Modified By Organization Details Last Modified Time 09/01/2024 [id number] advised to quit smoking [email or web address] Not available 09/01/2024 16:09:15 Dear Lea, Thank [...] on medications. - Sleep study referral to [facility] for sleep apnea evaluation. - Contact [facility] for toenail trimming appointment. - Stool sample test and mammogram to be scheduled after Wednesday. - Lifestyle Adjustments: - Continue efforts to reduce smoking. - Ensure proper diet and manage meal preparations, possibly with assistance from [employer] Whe[employer]. - Support Services: - Contact [facility] [...] Warm regards, Barney Henderson MD Family Medicine [email or web address] Not available 09/01/2024 16:11:10 Reason for Referral Sleep Medicine Referral for Sleep apnea witnessed nocturnal apnea, pt with obesity, COPD, chronic opioid dependence; eval for central vs obstructive sleep apnea Referring Physician: Family Rebecca [facility], Encounter Date: 09/01/2024 Project Manager/Team Coach Referral for Toen ail thickened well known to Dr. Valentino, (over)due for nail/foot care adn general f/u. Referring Physician: Family Darcy Bolivar, Encounter Date: 09/01/2024 Results Created Date Observation Date Name Description Value Unit Range Abnormal Flag Note LastModifiedBy Organization Detail LastModifiedTime 09/01/2009/01/2024 hemog munir A1Cramses k hemoglobin A1C 6.6 % <5.[address] [facility] [address] [facility], [place], [address], 09/01/2024 15:49:53 10/07/20 24 10/07/2024 CT ABD pelvi s wo IV or oral contr ast [facility] RADIOL OGY Mark Jeff santamaria [address] RADIOL OGY TRANSC RIPTIO N REPORT _ Patien t Name: FARAZ BUCKLEY,ERROL BYERS B MRN: Sex: : Age: [id number] F [id number] Accoun t: Access ion: Admit: StayTy pe: [id number] 2023 E Sarae d: Order ID: Submit curtis: Rosetta urena Provid er: 2023 14:14 [id number] CAROLINA MCINTOSH curtis: Techno logist : Result [...] ly reacti ve. Thank you for gail junior us partic ipate in the care of this patien t. If you are a health care [facility] er and have any questi ons regard ing this report , please contac t the number below. For patien ts who have questi ons please contac t the [facility] care prof[facility] that reques curtis your imagin g first. Electr onical ly signed by: Júnior Vick MD Radiol jimmy Adams olive ([phone]), at 2023 3:51 PM INTERFACE [facility] (Lab) [address] [place] [address], [address], 10/07/2024 15:57:10 Result Notes None recorded. Problems Name Problem SNOMED Code Status Onset Date Resolution Date Notes Provider Name and Address Organization Details Recorded Time Complica tion due to diabetes mellitus 64361183 Active [address], [place], [address] , [facility] 14:41:01 Gastroes ophageal reflux disease without esophagi tis 545333499 Active [address], [place], [address] , [facility] 4 15:41:02 Sleep apnea 16105557 Active [address], [place], [address] , [facility] 4 15:41:33 Dyspnea on exertion 64734546 Active [address], [place], [address] , [facility] 16:02:44 Smoker 94927084 Active [address], [facility] [address] , [facility] 4 16:03:44 Legal blindolivia s 10678879 Active [address], [facility] [address] [place] [address] 4 16:04:00 Toenail thickene d 730261065 Active [address], [place] [address] , [facility] 4 16:07:44 Pruritic rash 01188589 Active [address], [address] 4 16:09:31 Retroper itoneal lymphade nopathy 365956366 Active 2023 jelena rivera, [facility] 5 12:10:08 Renal failure syndrome 21973884 Active 2023 jelena rivera, [facility] 5 12:10:41 Acute exacerba tion of chronic obstruct vishnu pulmonar y disease 048412934 Active [address], [facility] [address] , [facility] 5 15:11:03 Acute renal insuffic iency 187368149 Active [address], [facility] [address] , [facility] 5 16:57:59 Essentia l hyperten kevon 55621102 Active 2005 Kristie rivera, [facility] 4 09:53:15 Hyperlip idemia 18570163 Active 2005 [facility] 4 10:08:20 Uncompli cated moderate persiste nt asthma 037693594 Active 2005 [facility] 4 10:24:46 Severe obesity 73205417806 104 Active 2005 [facility] 4 10:22:09 Chronic hepatiti s C 647770968 Active 2003 pos viral load not treated [facility] 4 09:47:44 Pain of right shoulder joint 33342107284 096974 Active 2014 [facility] 4 10:17:43 Neuropat hy due to type 2 diabetes mellitus 49285395904 9106 Active 2014 uncontro lled, w/neurol o comps [facility] 4 10:17:28 Idiopath ic osteoart hritis 901969498 Active 2014 DJD, knees, bilatera l [facility] 4 10:08:49 Renal disorder due to type 2 diabetes mellitus 097685032 Active 2015 Diabetic nephropa thy [facility] 4 10:21:57 Derangem ent of right knee 79161549557 286447 Completed 201505/05/2016 Problem Code: M23.91; Problem Code Type: ICD-10; Not Available [facility] 3 04:12:16 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 4 10:22:41 Gallblad mark calculus with acute cholecys titis and no obstruct ion 008429686 Completed 201612/29/2016 Problem Code: K80.00; Problem Code Type: ICD-10; Not Available [facility] 3 04:12:17 Acute asthma 305077030 Completed 201604/13/2017 Problem Code: J45.901; Problem Code Type: ICD-10; Not Available [facility] 3 04:12:17 Cellulit is 841421885 Completed 201607/16/2017 Problem Code: L03.90; Problem Code Type: ICD-10; Not Available [facility] 3 04:12:17 Atopic dermatit is 10560947 Active 2017 Kristie Peters [facility], [facility] 4 09:45:01 Impetigo 32044705 Completed 201705/03/2018 Problem Code: L01.00; Problem Code Type: ICD-10; Not Available [facility] 3 04:12:17 Screenin g mammogra phy Completed 201804/20/2019 Problem Code: Z12.31; Problem Code Type: ICD-10; Not Available [facility] 3 04:12:18 History of diabetic foot ulcer 75116678430 108496 Active 2018 Kristiecipriano rivera, [facility]. 4 10:01:51 Chronic obstruct vishnu pulmonar y disease 80269175 Active 2018 Asthma with COPD Kristie Peters [facility]. 4 09:48:31 Anemia 104960395 Active 2018 Kristie Fran [facility]. 4 09:39:01 Albumin level - finding 474794624 Active 2018 decrease d Kristie Peters [facility] 4 09:37:16 Peripher al venous insuffic iency 30133881 Active 2018 Stasis ulcer [facility] 4 10:18:18 Cough 33688224 Completed 201908/22/2020 Problem Code: R05; Problem Code Type: ICD-10; Not Available [facility] 3 04:12:19 Endocrin e/metabo lic screenin g Completed 202012/28/2020 Problem Code: Z13.29; Problem Code Type: ICD-10; Not Available 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 4 05:34:22 Lichen simplex chronicu s 83219945 Active 2022 Neuroder matitis [facility] 4 10:10:12 History of osteomye litis 726311446 Active 2022 [facility] 4 10:05:22 Opioid abuse 3769545 Completed 201807/14/2023 03/04/20 21 - Comments only - Barney Henderson MD - offered scg for OBT but she states she plans to try to establis h tx thru [facility]. Not interest ed in Suboxone or Vivitrol ; might be interest ed in Sublocad e. Problem Code: F11.10; Problem Code Type: ICD-10; Not Available [facility] 3 04:12:22 Cholelit hiasis without obstruct ion 04950247 Completed 201512/22/2016 Problem Code: K80.20; Problem Code Type: ICD-10; Not Available [facility] 3 04:12:22 Candidia sis of vagina 17448139 Completed 201503/27/2016 Problem Code: B37.3; Problem Code Type: ICD-10; Not Available [facility] 3 04:12:23 Traumati c or non-trau matic injury 028954596 Completed 201607/14/2023 Problem Code: T14.8; Problem Code Type: ICD-10; Not Available [facility] 3 04:12:23 Disorder of teeth AND/OR supporti ng structur es 979931577 Completed 201503/17/2016 Problem Code: K08.8; Problem Code Type: ICD-10; Not Available [facility] 3 04:12:23 Uncompli cated asthma 636805711 Completed 200507/14/2023 Problem Code: J45.909; Problem Code Type: ICD-10; Not Available [facility] 3 04:12:23 Hyperten sive disorder 64203690 Completed 200507/14/2023 Not Available [facility] 3 04:12:24 Scar conditio ns and fibrosis of skin 887803766 Completed 201604/23/2017 Problem Code: L90.5; Problem Code Type: ICD-10; Not Available [facility] 3 04:12:24 Human papillom a virus infectio n 680022326 Completed 201607/14/2023 Problem Code: B97.7; Problem Code Type: ICD-10; Not Available [facility] 3 04:12:24 Morbid obesity 269378403 Completed 200507/14/2023 Not Available [facility] 3 04:12:24 Foot ulcer due to type 2 diabetes mellitus 57423381304 00 Completed 201512/22/2016 01/20/20 19 - Comments [...] Problem Code: E11.621; Problem Code Type: ICD-10; AMOR Rizzo [facility]. 4 09:59:50 Periapic al abscess 074266471 Completed 201403/17/2016 Problem Code: K04.7; Problem Code Type: ICD-10; Not Available [facility] 3 04:12:25 Drug abuse 38628290 Completed 200707/14/2023 Problem Code: 305.90; Problem Code Type: ICD-9; Not Available [facility] 3 04:12:25 Opioid dependen ce in remissio n 934213004 Completed 201807/14/2023 09/26/20 19 - Comments only [...] F11.21; Problem Code Type: ICD-10; Not Available [facility] 3 04:12:25 Gynecolo gic examinat ion Completed 201602/02/2017 Problem Code: Z01.419; Problem Code Type: ICD-10; Not Available [facility] 3 04:12:26 Nodule on toe 336701333 Completed 201605/25/[address] [facility] 3 04:12:26 Pain of right knee joint 78063199289 4100 Completed 201502/02/2017 Problem Code: M25.561; Problem Code Type: ICD-10; Not Available [facility] 3 04:12:26 Candidia sis of skin 83133316 Completed 201503/27/2016 Problem Code: B37.2; Problem Code Type: ICD-10; Not Available [facility] 3 04:12:26 Dysuria 31133893 Completed 201505/07/2016 Problem Code: R30.0; Problem Code Type: ICD-10; Not Available [facility] 3 04:12:27 Retinopa thy due to type 2 diabetes mellitus 401575787 Completed 201507/14/2023 Problem Code: E11.319; Problem Code Type: ICD-10; Not Available [facility] 3 04:12:27 Infectio n of skin and/or subcutan eous tissue 20224072 Completed 202204/30/2023 Problem Code: L08.89; Problem Code Type: ICD-10; Not Available [facility] 3 04:12:27 Tobacco dependen ce caused by cigarett es 88032360103 208787 Completed 200305/25/2019 Problem Code: F17.210; Problem Code Type: ICD-10; Not Available [facility] 3 04:12:27 Opioid dependen ce 88797464 Completed 200309/04/2015 05/25/20 19 - Comments only - Alexandro Grewal - Doing well in treatmen t at [facility]. Problem Code: F11.20; Problem Code Type: ICD-10; Not Available [facility] 3 04:12:28 Asthma 676307121 Completed 200507/14/[address] [facility] 3 04:12:28 Pain of joint of knee 8921836628 Completed 201407/14/2023 Problem Code: M25.569; Problem Code Type: ICD-10; Not Available [facility] 3 04:12:28 Cellulit is of right lower limb 24274658540 160926 Completed 201805/25/2019 Problem Code: L03.115; Problem Code Type: ICD-10; Not Available [facility] 3 04:12:28 Shoulder joint pain 583478561 Completed 201407/14/2023 Problem Code: 719.41; Problem Code Type: ICD-9; Not Available [facility] 3 04:12:29 Smoker 30247275 Completed 200307/14/2023 BARNEY HENDERSON MD [address], [place], [address] , [facility]. 4 16:03:44 Chronic ulcer of foot 988500853 Completed 201601/05/2017 Problem Code: L97.529; Problem Code Type: ICD-10; Not Available [facility] 3 04:12:29 Type 2 diabetes mellitus without complica tion 275140969 Completed 200307/14/2023 Problem Code: 250.00; Problem Code Type: ICD-9; BARNEY HENDERSON MD [address], [place], [address] , [facility]. 4 14:43:16 Pain of left knee joint 65974081906 4107 Completed 201407/14/2023 Problem Code: M25.562; Problem Code Type: ICD-10; Not Available [facility] 3 04:12:30 Depressi ve disorder 58622963 Completed 200307/14/2023 BARNEY HENDERSON MD [address], [facility] [address] [facility] 4 14:41:17 Hypergly cemia due to type 2 diabetes mellitus 84276476226 9109 Completed 200309/04/2015 Problem Code: E11.65; Problem Code Type: ICD-10; Not Available [facility] 3 04:12:30 Chest pain 01677199 Completed 201605/25/2019 Problem Code: R07.89; Problem Code Type: ICD-10; Not Available [facility] 3 04:12:31 Drug dependen ce 242333798 Completed 200307/14/2023 Problem Code: 304; Problem Code Type: ICD-9; Not Available [facility] 3 04:12:31 Cellulit is of toe of right foot 95328298440 975871 Completed 201505/11/2016 Problem Code: L03.031; Problem Code Type: ICD-10; Not Available [facility] 3 04:12:31 Osteoart hritis of knee 357640307 Completed 201402/02/2017 Problem Code: M17.9; Problem Code Type: ICD-10; Not Available [facility] 3 04:12:32 History of infectio us disease 084749334 Completed 201409/04/2015 Problem Code: Z86.19; Problem Code Type: ICD-10; Kristie rivera [facility] 4 10:05:01 Tobacco user 997420176 Completed 200508/06/2015 Not Available [facility] 3 04:12:32 Viral screenin g Completed 202209/10/2023 Problem Code: Z11.52; Problem Code Type: ICD-10; Not Available [facility] 4 05:34:15 Acute upper respirat ory infectio n 63801990 Completed 202208/18/2023 Problem Code: J06.9; Problem Code Type: ICD-10; Not Available [facility] 4 05:34:15 Type 2 diabetes mellitus without complica tion 318541804 Completed 202309/01/2024 Problem Code: 250.00; Problem Code Type: ICD-9; MD Shailesh [address], [place], [address] , [facility], [facility] 4 14:43:16 Asthma-c hronic obstruct vishnu pulmonar y disease overlap syndrome 82920783274 368420 Active 2023 [facility], [facility] 4 09:39:21 Decompen sated cirrhosi s of liver 618331749 Active 2023 Child Bourgeois score 8/Class B as of 12/2022 Kristie Fran null, [facility] 4 09:51:34 Visual impairme nt 729219525 Active 2023 [facility], [facility] 4 10:29:20 Thickene d nails 469275922 Active 2023 [facility], [facility] 4 10:22:14 Thickeni ng of skin 71616588 Completed 202309/01/[address], [place], [address] , [facility] 4 14:43:15 Acquired hammer toes of bilatera l feet 77991183890 949745 [facility], [facility] 4 09:37:02 History of amputati on of right foot 62701919169 354888 Active 2023 [facility] 4 10:01:25 Combined form of senile cataract 37050443 Active 2023 [facility] 4 09:50:32 Unintent ional weight loss 663684643 Active 2022 [facility] 4 10:24:46 History of amputati on of lesser toe 500797235 Active 2022 [facility] 4 09:38:36 History of intraven ous drug abuse 90960873331 536041 Active 2007 heroin [facility] 4 09:40:14 Left ventricu lar hypertro phy 73854236 Active 2015 mild concentr ic 12/31 echo (nl EF) [facility] 4 09:47:08 Follicul itis 19534367 Active 2022 [facility] 4 09:52:22 Peripher al edema 557365360 Active 2014 [facility] 4 09:52:55 Mild persiste nt asthma 394605901 Active 2022 with acute exacerba tion [facility] 4 09:54:28 Family history of Alzheime r's disease 294982976 Active 2018 mother age 50, maternal grandmot her, maternal aunts and uncles; no genetic testing done [facility] 4 09:56:26 Diabetic foot ulcer 948145455 Active 2022 [facility] 4 09:59:46 History of cholecys tectomy 349060902 Active 2016 laparosc opic, 01/01 [facility] 4 10:00:55 History of human papillom a virus infectio n 54669429801 9102 Active 01/01; nl pap; neg colpo 04/03 incl ECC; neg pap 11/05; 5 yr f/u [facility] 4 10:04:56 History of opioid abuse 11002759649 9100 Active 2018 Hx of opioid abuse -- [facility] resumed suboxone 09/07 [facility] 4 10:08:01 Edentulo 684914216 Active 2015 s/p complete extr due to advanced caries 03/02 [facility] 4 10:13:37 Major depressi ve disorder 485450443 Active 2022 Major depressi on [facility] 4 10:15:28 Traumati c partial amputati on of right great toe Active 2018 initial encounte r [facility] 4 10:23:54 Stasis dermatit is 47316026 Active 2021 Venous stasis dermatit is [facility] 4 10:30:44 Diabetes mellitus 22127574 Completed 202309/01/[address], [place], [address] , [facility] 4 14:43:16 Type 2 diabetes mellitus 24174648 Completed 202309/01/[address], [place], [address] , [facility] 4 14:43:16 Obesity 321856744 Active [address], [place], [address] , [facility] 4 20:58:25 Hemoglob in A1c greater than 9% indicati ng poor diabetic control 37372412942 4104 Completed 202309/01/[address], [place], [address] , [facility] 4 14:43:16 Problem Notes None recorded. Medical Equipment None Reported. Allergies Allergen ID Allergen Name Allergen Category Reaction Reaction Severity Criticality Documentation Date Start Date Code Code System Note Provider Name and Address Organization Details Recorded Time 61035 lisinopri l medicatio n cough moderate Not available 08/27/20232009 20461 RxNorm [facility] 4 10:31:16 52626 metoprolo l succinate medicatio n other moderate Not available 08/27/20232018 39982 4 RxNorm No react ion enter ed [facility] [facility] 4 10:31:36 [id number] codeine medicatio n hives moderate Not available 08/27/20232002 2670 RxNorm [facility] 4 10:31:10 Medications Name Sig Start [...] cream Apply twice a day as directed 07/20/ 2018 05/18 /2021 completed Not Available Not Available Not Available [...] Stockings Dx: peripher al edema 11/04 completed [place] Not Available Not Available Not Available gabapenti n 300 mg tablet 3 cap three times daily 06/16 completed Not Available Not Available Not Available albuterol 2INH four times daily 07/31 completed Not Available Not Available Not Available Nystatin (Topical) cream apply BID 05/28 completed Not Available Not Available Not Available Nebulizer Dx: Asthma J45.40 Smoking Z71.6 2018 active [place] in [place] Not Available Not Available Not Available Humalog [...] Dose change to 18mg q day per [facility] 04/12/19; 20mg as of 03/2020 Not Available Not Available Not Available Suboxone 2 mg-0.5 mg sublingua l film Take 2 film sublingu ally once daily 05/08 completed Per [facility] 04/12/19, total daily dose increase d to 20mg Not Available Not Available Not Available OneTouch Delica Lancets 30 gauge Test Blood Glucose 4 times daily and as needed 2016 active Not Available Not Available Not Avai lable BD Insulin Syringe Ultra-Fin e 1 mL 31 gauge x / Use 1 syringe as directed four times [...] completed Not Available Not Available Not Available Eliazarutien SoloStar U-300 Insulin 300 unit/mL (1.5 mL) [...] Updated DateTime 4 160.02 cm 35.5 kg/m2 39370.9 1 g 97.5 [degF] 94 % 94 % 88 /min 168 mm[Hg] 98 mm[Hg] ARMIDA HIRSCH MA [facility], [facility] 4 15:02:01 Social History Question Answer Notes LastModified by Organizat ion Details LastModified Time Tobacco Smoking Status Current Every Day Smoker SURJIT KITCHEN LPN null, [facility] 11/03/2023 13:42:55 Date Of Most Recent HSA 10/06/2024 [email or web address] Information not available 10/06/2024 Would You Say That, In General, Your Health Is Poor [email or web address] Information not available 10/06/2024 Women Aged 18-50 - Would You Like To Become In The Next Year? (Female Patients Only) No [email or web address] Information not available 10/06/2024 How Often Does Anyone, Including Family, Physically Hurt You? Never [email or web address] Information not available 10/06/2024 How Often Does Anyone, Including Family, Insult Or Talk Down To You? Never [email or web address] Information no t available 10/06/2024 How Often Does Anyone, Including Family, Threaten You With Harm? Never Information not available 10/06/2024 How Often Does Anyone, Including Family, Scream Or Curse At You? Never [email or web address] Information not available 10/06/2024 Within The Past 12 Months, You Worried That Your Food Would Run Out Before You Got Money To Buy More. Sometimes True [email or web address] Information not available 10/06/2024 Within The Past 12 Months, The Food You Bought Just Didn't Last And You Didn't Have Money To Get More. Sometimes True [email or web address] Information not available 10/06/2024 How Hard Is It For You To Pay For The Very Basics Like Food, Housing, Medical Care, And Heating? Would You Say It Is: Very Hard [email or web address] Information not available 10/06/2024 In The Past 12 Months, Has Lack Of Reliable Transportation Kept You From Medical Appointments, Meetings, Work Or From Getting Things Needed For Daily Living? Yes Information not available 10/06/2024 What Is Your Housing Situation Today? I Have Housing. [email or web address] Information not available 10/06/2024 How Often In The Past Year Have You Used Marijuana (including Smoking, Vaping, Dabbing, Or Edibles)? Never [email or web address] Information not available 10/06/2024 How Often In The Past Year Have You Used Prescription Medications That Were Not Prescribed To You? Never [email or web address] Information not available 10/06/2024 How Often In The Past Year Have You Taken Your Own Prescription Medication More Than The Way It Was Prescribed Or For Different Reasons Than Its Intended Purpose? Never [email or web address] Information no t available 10/06/2024 How Often In The Past Year Have You Used Other Drugs (for Example, Heroin, Cocaine, Meth, Salvia, Inhalants)? Never [email or web address] Information not available 10/06/2024 Have You Ever Used IV Drugs? Yes 10 Years Ago [email or web address] Information not available 10/06/2024 What Matters Most To You? Vision, Overall Health Information not available 10/06/2024 During The Past Four Weeks Has Your Physical And Emotional Health Limited Your Social Activities With Family And Friends, Neighbors, Or Groups? Moderately [email or web address] Information not available 10/06/2024 During The Past Four Weeks, Was Someone Available To Help You If You Needed And Wanted Help? (For Example, If You [place] Very Nervous, Lonely, Or Blue; Got Sick And Had To Stay In Bed; Needed Someone To Talk To; Needed Help With Daily Chores; Or Needed Help Just Taking Care Of Yourself.) Yes- Quite A Bit [email or web address] Information not available 10/06/2024 During The Past Four Weeks, What Was The Hardest Physical Activity You Could Do For At Least 2 Minutes? Heavy [email or web address] Information not available 10/06/2024 Can You Get To Places Out Of Walking Distance Without Help? (For Example, Can You Travel Alone On Buses Or Taxis, Or Drive Your Own Car?) No [email or web address] Information not available 10/06/2024 Can You Go Shopping For Groceries Or Clothes Without Someone? s Help? No Information not available 10/06/2024 Can You Prepare Your Own Meals? No [email or web address] Information not available 10/06/2024 Can You Do Your Housework Without Help? Yes [email or web address] Information not available 10/06/2024 Because Of Any Health Problems, Do You Need The Help Of Another Person With Your Personal Care Needs Such As Eating, Bathing, Dressing, Or Getting Around The House? Yes [email or web address] Information not available 10/06/2024 Can You Handle Your Own Money Without Help? Yes [email or web address] Information not available 10/06/2024 Are You Having Difficulties Driving Your Car? Not Applicable- I Do Not Use A Car [email or web address] Information not available 10/06/2024 How Often During The Past Four Weeks Have You Been Bothered By Any Of The Following Problems? Falling Or Dizzy When Standing Up? Often [email or web address] Information not available 10/06/2024 Sexual Problems? Never Informat ion not available 10/06/2024 Trouble Eating Well? Never [email or web address] Information not available 10/06/2024 Teeth Or Denture Problems? Always [email or web address] Information not available 10/06/2024 Problems Using The Telephone? Always Can't See Phone [email or web address] Information not available 10/06/2024 Tiredness Or Fatigue? Always Information not available 10/06/2024 Have You Had 2 Or More Falls Or Sustained An Injury With A Fall In The Last Year? Yes [email or web address] Information not available 10/06/2024 Do You Have Difficulty With Walking Or Balance? Yes [email or web address] Information not available 10/06/2024 Do You Currently Use A Hearing Device? No [email or web address] Information not available 10/06/2024 Do You Currently Have Any Trouble With Your Vision? Yes [email or web address] Information no t available 10/06/2024 Do You Exercise For About 20 Minutes Three Or More Days A Week? No- I Usually Do Not Exercise Much Information not available 10/06/2024 Are There Any Safety Concerns In Your Home (see Attached [facility] Pamphlet)? Yes Stairs, Cooking [email or web address] Information not available 10/06/2024 How Often Do You Have Trouble Taking Medicines The Way You Have Been Told To Take Them? Sometimes I Take Them As Prescribed [email or web address] Information not available 10/06/2024 How Confident Are You That You Can Control And Manage Most Of Your Health Problems? Somewhat Confident [email or web address] Information not available 10/06/2024 Do You Currently Have Any Difficulty With Your Hearing? No [email or web address] Information not available 10/06/2024 Date Of Most Recent SBINS 10/06/2024 Information not available 10/06/2024 What Was The Date Of Your Most Recent Tobacco Screening? 10/06/2024 [email or web address] Information not available 10/06/2024 What Is Your Current Pack Years? 30ormorepacky ears Information not available 11/03/2023 At What Age Did You Start Smoking Tobacco? 14 Information not available 11/03/2023 How Much Tobacco Do You Smoke? 1 PPW Information not available 11/03/2023 Has Tobacco Cessation Counseling Been Provided? Yes Pt Declines. [email or web address] Information not available 10/06/2024 On What Date Was Tobacco Cessation Counseling Provided? 10/06/2024 Pt Just Not Ready Yet. [email or web address] Information not available 10/06/2024 How Many Years [...] mcg/0.3 mL 4 completed ARMIDA HIRSCH MA [facility], [facility] 09/01/2024 18:38:23 Influenza, split virus, trivalent, PF 4 completed MD Shailesh [address], [place], [address], [facility] 09/01/2024 16:09:15 Td (adult), 5 Lf tetanus toxoid, preservative free, adsorbed [address] [facility] 08/27/2023 06:21:08 Tdap 7 completed Not Available [facility] 08/27/2023 06:21:08 Novel [id number], all formulations 9 completed Not Available [facility] 08/27/2023 06:21:08 Td(adult) unspecified formulation [address] [facility] 08/27/2023 06:21:08 Influenza, split virus, trivalent, preservative [address] [facility] 08/27/2023 06:21:08 Influenza, split virus, quadrivalent, PF [address] [facility] 08/27/2023 06:21:08 Influenza, split virus, quadrivalent, PF [address] [facility] 08/27/2023 06:21:08 Influenza, split virus, quadrivalent, preservative [address] [facility] 08/27/2023 06:21:09 COVID-19, mRNA, LNP-S, PF, 100 mcg/0.5mL dose or 50 mcg/0.25mL dose [address] [facility] 08/27/2023 06:21:09 COVID-19 vaccine, vector-nr, rS-Ad26, PF, 0.5 mL [address] [facility] 08/27/2023 06:21:09 COVID-19, mRNA, LNP-S, bivalent, PF, 30 mcg/0.3 mL dose [address] [facility] 08/27/2023 06:21:09 pneumococcal polysaccharide PPV23 [address] [facility] 08/27/2023 06:21:09 influenza, unspecified formulation [address] [facility] 08/27/2023 06:21:09 influenza, unspecified formulation [address] [facility] 08/27/2023 06:21:09 influenza, unspecified formulation [address] [facility] 08/27/2023 06:21:09 Influenza, split virus, quadrivalent, PF [address] [facility] 10/29/2023 05:31:09 Pneumococcal conjugate PCV20, polysaccharide LDK314 conjugate, adjuvant, PF [address] [facility] 10/29/2023 05:31:11 Past Encounters Encounter ID Performer Location Encounter Start Date Encounter Closed Date Diagnosis/Indication Diagnosis SNOMED-CT Code Diagnosis ICD10 Code Diagnosis Note [id number] BARNEY HENDERSON MD [address] [address] 09/01/2024 14:30:48 09/01/2024 15:49:47 Asthma-chronic obstructive pulmonary disease overlap syndrome [id number] 4630094 J44.9 Recommende d switch from Breo to Trelegy for LABA/LAMA coverage as well as ICS. Essential hypertension 41196723 I10 Not well-contr olled related to being out of medication for 2 weeks, meds renewed, follow-up 1 month. Anxiety 65522341 F41.9 Neuropathy due to type 2 diabetes mellitus 2256883806 14592 E11.40 With recurrent callus right foot that is causing pain. Will refer back to Dr. Oliver. Hyperlipidemia 33034070 E78.5 Gastroesop hageal reflux disease without esophagitis 121588692 K21.9 Continue daily PPI. Sleep apnea 19655029 G47 .30 Central/op ioid mediated versus OLVIN. Advised sleep eval. Referral made. History of fall 56474367 9 Z91.81 Continue use of assistive device such as cane. Keep follow-up with eye doctor. Active or passive immunization 367819427 Z23 Dyspnea on exertion 6084 5006 R06.09 Could be due to worsening COPD, untreated sleep apnea might be contributi ng, CHF also certainly a possibilit y. Will urge echo and cards eval at follow-up if not significan tly improved with change in inhaler. Encouraged continued efforts at smoking cessation. Smoker 69774179 F17.210 Tobacco us e cessation education 078136596 Z71.6 She has cut back to half pack per day, encouraged continued work toward complete cessation. Legal blindness 86345674 H54.8 Will ask care coordinato r to connect [facility] with [facility] assistive technologi es. Food insecurity 24621685 3 Z59.41 Will ask care coordinato r to assist with choices for care and Meals on Wheels applicatio ns. Chronic hepatitis C 1283 92866 B18.2 Last Child Bourgeois Score calculated as 8 with most recent lab values (not all of which from same time) = Child Class B, qualifying as decompensa curtis cirrhosis. Pt is open to treating HepC with antivirals , has not kept GI consult referrals, open to updating labs at next visit and considerin g treatment through this office. Toenail thickened 522578 000 R23.8 Needs to see her rubber tile floor layer for toenail and general foot care. Will place referral to facilitate earlier appointmen t. Pruritic rash 76178209 L 28.2 Mild folliculit is versus neuroderma titis upper back. Advised topical antibiotic , avoid scratching , reevaluate at next visit Health Concerns Section Related Observation LastModified by Organization Detai ls LastModified Time None Recorded Concern Status LastModified by Organization Details LastModified Time None Recorded Payers Encounter Date Sequence Insurance Name Policy Number Policy Salmon Covered Member ID Salmon Member ID Guarantor Name 09/01/2024 2 [facility] (MEDICAID) Lea Yamilex Pedro [id number] Lea Vasquez 09/01/2024 1 [place]ARE[place] - [place] A - [facility]-COUNT INCLUDES THE [facility] (MEDICARE) Lea Vasquez [id number] Lea Vasquez Notes Date Note Type [...] 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 BARNEY HENDERSON MD [address], [place], [address], [facility]. 09/01/2024 16:11:54 OBGyn Episode No OBEpisode recorded.
--- OUTSIDE RECORDS SUMMARY | 2024-10-25 14:02 | XMS_ITS | Encounter Summary ---
Author Organization [facility] Address [address] [place] [address] Care Team Providers Care Forestry Aide Name Role Phone Sharon Henderson MD Primary Care Provider [phone] Encounter Details Date Type Department Care Team (Late st Contact Info) Description 10/19/2018 Results Only [facility] [phone] Sharon Henderson MD [address] [place] [address] Social History Tobacco Use Types [...] Info) Description 10/27/2024 14:15 EST Office Visit [facility] [address] [place] [address] Consuelo Nicole MD [address] [place] [address] documented as of this encounter Procedures Procedure [...] types 16,18,31,33,35, 39,45,51,52,56,58, 59,66, and 68 by workshop manager mediated amplification. Comments Document reviewed and electronically signed by: ? System Interface ? Report date: 10/28/2018 By the signature above, the attending physician certifies that he/she has personally conducted a gross and/or microscopic examination of the described specimens and rendered or confirmed the above diagnosis. End of Report [facility] 10/19/2018 10/21/2018 us Sharon Henderson MD PATHOLOGY ORDERABLES Final Res ult [facility] [address] [place] [address] documented in this encounter Visit Diagnoses Not on filedocumented in this encounter Care Teams Forestry Aide Relationship Specialty Start Date End Date Sharon Henderson MD [address] [place] [phone] PCP - General 09/09/15 documented as of this encounter
--- OUTSIDE RECORDS SUMMARY | 2024-10-25 14:02 | XMS_ITS | Encounter Summary ---
Author Organization [facility] Address [address] [place] [address] Care Team Providers Care Dye Machine Operator Name Role Phone Unavailable Primary Care Provider Unavailabl e Encounter Details Date Type Department Care Team (Late st Contact Info) Description 05/30/2001 Results Only [facility] conversion [address] [place] [address] Yoel Deleon MD [address] [place], [place] [address] Social History Tobacco Use Types Packs/Day Years [...] 14:15 EST Office Visit [facility] [address] [place] [address] Consuelo Nicole MD [address] [place] [address] documented as of this encounter Procedures Procedure [...] ? LEA LAMAS ? Accession #: ? [id number] ? : ? 1975 (Age: 26) ??F [...] ??Serial sections reveal a pinpoint lumen. ??Two brand representative cross sections are submitted as (A). Received in formalin labelled Lamas and right fallopian tube #2 is a cylindrical piece of ewing-pink fallopian tube which measures 1.1 cm in length and 0.6 cm in external diameter. ??Serial sections reveal a pinpoint lumen. ??Two brand representative cross sections are submitted as (B). ??(Dr. Conroy-[place])/[facility] End of Report NATHAN SETHI 05/30/2001 05/30/2001 15: 59 EDT us Yoel Deleon MD PATHOLOGY ORDERABLES Final Resul t NATHAN SETHI [address] [place] [address] documented in this encounter Visit Diagnoses Not on filedocumented in this encounter
--- OUTSIDE RECORDS SUMMARY | 2024-10-25 14:02 | XMS_ITS | Encounter Summary ---
Author Organization [facility] Address [address] [place] [address] Care Team Providers Care Plc Controls Engineer Name Role Phone Sharon Vargas MD Primary Care Provider [phone] Encounter Details Date Type Department Care Team (Late st Contact Info) Description 09/20/2023 [facility] [address] [place] [phone] Salome Myles MD [address] [place] [phone] Social History Tobacco Use Types Packs/Day [...] Visit [facility] [address] [place], [place] [address] Consuelo Nicole MD [address] [place] [phone] documented as of this encounter Visit Diagnoses Not on filedocumented in this encounter Care Teams Plc Controls Engineer Relationship Specialty Start Date End Date Sharon Vargas MD [address] [place] [phone] PCP - General 09/09/15 documented as of this encounter
--- OUTSIDE RECORDS SUMMARY | 2024-10-25 14:02 | XMS_ITS | Encounter Summary ---
Author Organization [facility] Address [address] [place] [address] Care Team Providers Care Radiological Defense Officer Name Role Phone Sharon Vargas MD Primary Care Provider [phone] Encounter Details Date Type Department Care Team (Late st Contact Info) Description 03/27/2016 Historical Results Only [facility] Radiology Results [address] [place] [address] Roberth Osborne MD Social History Tobacco Use [...] Office Visit [facility] [address] [place] [address] Consuelo Nicole MD [address] [place] [phone] documented as of this encounter Procedures Procedure [...] CC: ? Transcribed Date/Time: 03/27/2016 (2008) ? Firearms Instructor: ? Printed Date/Time: 03/31/2019 (31) ? PAGE [...] Gan MD CC: Transcribed Date/Time: 03/27/2016 (2008) Firearms Instructor: Printed Date/Time: 03/31/2019 (0032) PAGE 1 Signed Report us Roberth Osborne MD IMG DIAGNOSTIC IMAGING ORDERABL ES Final Result documented in this encounter Visit Diagnoses Not on filedocumented in this encounter Care Teams Radiological Defense Officer Relationship Specialty Start Date End Date Sharon Vargas MD [address] [place] [address] PCP - General 09/09/15 documented as of this encounter
--- OUTSIDE RECORDS SUMMARY | 2024-10-25 14:02 | XMS_ITS | Encounter Summary ---
Author Organization [facility] Address [address] [place] [address] Care Team Providers Care Loft Patternmaker Name Role Phone Sharon Vargas MD Primary Care Provider [phone] Reason for Visit * Reason Onset Date Comments Follow-up 10/20/2024 Encounter Details Date Type Department Care Team (Late st Contact Info) Description 10/20/2024 Telephone [facility] [address] [place], [place] [phone] Cherrie Fam MD [address] [place] [address], [address] [place] [phone] Follow-up Social History Tobacco Use Types Packs/Day [...] Encounter - Cherrie Fam MD - 10/20/2024 7501 EST Phone conversation with primary care provider at [facility]. Worsened kidney failure after 18 months' testing. Past medical history include chronic kidney disease, chronic Hepatitis C, cirrhosis, poorly controlled diabetes mellitus and proteinuria who was treated at [facility] recently and labs showed creatinine of 5.9 [...] Description 10/27/2024 14:15 EST Office Visit [facility] Ophthal[facility] [address] [place] [address] Consuelo Nicole MD [address] [place] [phone] documented as of this encounter Visit Diagnoses Not on filedocumented in this encounter Care Teams Loft Patternmaker Relationship Specialty Start Date End Date Sharon Vargas MD [address] [place] [phone] PCP - General 09/09/15 documented as of this encounter
--- OUTSIDE RECORDS SUMMARY | 2024-10-25 14:02 | XMS_ITS | Referral Summary ---
Author Organization [facility] Address [address] [place] [address] Care Team Providers Care Enrollment Management Manager Name Role Phone Sharon Vargas MD Primary Care Provider [phone] Encounters Date Type Department Care Team Description 10/21/2024 Lab Requisition [facility] Pathology & Laboratory [address] [address] Outr Resulting Lab, Provider 10/21/2024 Lab Requisition [facility] Pathology & Laboratory [address] [address] Outr Resulting Lab, Provider 10/20/2024 Telephone [facility] Nephrology - [address] [address] Cherrie Fam MD Appointment Related 10/20/2024 Telephone [facility] NEPHROLOGY [address] [place] [phone] Cherrie Fam MD Follow-up 10/07/2024 Lab Requisition [facility] Pathology & Laboratory [address] [address] Outr Resulting Lab, Provider 10/06/2024 Lab Requisition [facility] Pathology & Laboratory [address] [address] Outr Resulting Lab, Provider from Last 3 [...] Description 10/27/2024 14:15 EST Office Visit [facility] Ophthalmology [facility] [address] [place] [address] Consuelo Nicole MD [address] [place] [phone] Procedures Procedure Name Priority Date/Time Associated Diagnosis [...] DETECT QUANT Routine 10/06/2024 14:00 EST URINE RQYBMOP-AS-WXCIAYNJO E RATIO (ACR) Routine 10/16/2015 HEMOGLOBIN A1C Routine 05/28/2014 from Last 3 Months or Most Recently Relevant to Health Maintenance Results * HOLD SST (10/20/2024 13:10 EST) Hold Hold 10/21/2024 23:01 EST [facility] Blood VENOUS BLOOD / Unknown 10/20/2024 13:10 EST 10/21/2024 21:55 EST us Provider Outr Resulting Lab LAB INFO SERVICE AND SUPPORT & PHONE RESULT Final Result [facility] [address] [place], [place] [id number] * HEPATITIS A TOTAL ANTIBODY W REFLEX (10/20/2024 13:10 EST) Hepatitis A Antibody, Total Negative Negative 10/23/2024 11:22 EST [facility] Blood VENOUS BLOOD / Unknown 10/20/2024 13:10 EST 10/21/2024 21:55 EST Narrative [facility] - 10/23/2024 11:22 EST The result of this assay can be falsely elevated (Positive) due to the consumption of Biotin. us Provider Outr Resulting Lab CHEMISTRY & BLOOD GA S ORDERABLES Final Result Performing Organization Address City/[facility]/ZIP Co de Phone Number [facility] [address] [place] [address] * HEPATITIS B CORE ANTIBODY (TOTAL) (10/20/2024 13:10 EST) Hepatitis B Core Ab, Total Negative Negative 10/23/2024 11:41 EST [facility] Blood VENOUS BLOOD / Unknown 10/20/2024 13:10 EST 10/21/2024 21:55 EST us Provider Outr Resulting Lab CHEMISTRY & BLOOD GA S ORDERABLES Final Result Performing Organization Address [facility]/ZIP Co de Phone Number [facility] [address] [place] [address] * HEPATITIS B SURFACE ANTIGEN (10/20/2024 13:10 EST) Hep B Surface Ag Negative Negative 10/23/2024 10:42 EST [facility] Blood VENOUS BLOOD / Unknown 10/20/2024 13:10 EST 10/21/2024 21:55 EST us Provider Outr Resulting Lab CHEMISTRY & BLOOD GA S ORDERABLES Final Result Performing Organization Address [facility]/ZIP Co de Phone Number [facility] [address] [place] [address] * C3 COMPLEMENT (10/20/2024 13:10 EST) C3 Complement 151 81 - 157 mg/dL 10/23/2024 10:23 EST [facility] Blood VENOUS BLOOD / Unknown 10/20/2024 13:10 EST 10/21/2024 21:58 EST us Provider Outr Resulting Lab CHEMISTRY & BLOOD GA S ORDERABLES Final Result Performing Organization Address [facility]/ZIP Co de Phone Number [facility] [address] [place] [address] * C4 COMPLEMENT (10/20/2024 13:10 EST) Pathologist [facility] C4 Complement 28 13 - 39 mg/dL 10/23/2024 10:23 EST [facility] Blood VENOUS BLOOD / Unknown 10/20/2024 13:10 EST 10/21/2024 21:58 EST us Provider Outr Resulting Lab CHEMISTRY & BLOOD GA S ORDERABLES Final Result Performing Organization Address [facility] de Phone Number [facility] [address] [place] [address] * (ABNORMAL) ANTI NUCLEAR AB (DEIDRE), IFA (10/20/2024 13:10 EST) Pathologist [facility] DEIDRE Interpretation Positive(A) Negative 10/23/2024 14:43 [facility] Comment: For titers greater than [...] Pattern 1 1:160 Speckled 10/23/2024 14:43 EST [facility] Blood VENOUS BLOOD / Unknown 10/20/2024 13:10 EST 10/21/2024 21:58 EST Narrative [facility] - 10/23/2024 14:43 EST Results were obtained with the [employer] NOVA Lite HEp-2 DEIDRE Kit by indirect immunofluorescence. us Provider Outr Resulting Lab IMMUNOLOGY AND SEROL OGY ORDERABLES Final Result Performing Organization Address [facility] Co de Phone Number [facility] [address] [place] [address] * (ABNORMAL) HCV RNA DETECT QUANT (10/06/2024 14:00 EST) HCV RNA Qualitative Detected( A) Undetected 10/09/2024 11:37 EST [facility] HCV RNA Quantitative 2,950,000 (H) Undetected IU/mL 10/09/2024 11:37 EST [facility] Blood VENOUS BLOOD / Unknown 10/06/2024 14:00 EST 10/07/2024 22:18 EST Narrative [facility] - 10/09/2024 11:37 EST The quantification range of this assay is 15 IU/mL to 100,000,000 IU/mL. Testing was performed using the Jaron HCV test ([employer] with the jaron [id number] System. us Provider Outr Resulting Lab CHEMISTRY & BLOOD GA S ORDERABLES Final Result Performing Organization Address [facility] de Phone Number [facility] [address] [place] [address] * ALBUMIN, URINE (10/16/2015) Microalb ug/mg Crea, External 312.7 [facility] Microalb mg/dl, External 84.7 [facility] Creatinine, Random U (UCRR), External 27.09 [facility] Urine specimen (specimen) 10/16/2015 us Sharon Vargas MD CHEMISTRY & BLOOD GAS ORDERABL ES Edited Result - Final Performing Organization Address [facility]/ZIP Co de Phone Number [facility] * HEMOGLOBIN A1C (05/28/2014) Hemoglobin A1C, External 8.7 [facility] Est Avg Glucose, External [facility] Blood specimen (specimen) 05/28/2014 us Sharon Vargas MD CHEMISTRY & BLOOD GAS ORDERABL ES Final Result [facility] from Last 3 Months or Most Recently Relevant to Health Maintenance Insurance [place] Care Teams Enrollment Management Manager Relationship Specialty Start Date End Date Sharon Vargas MD [address] [place] [phone] PCP - General 09/09/15
--- OUTSIDE RECORDS SUMMARY | 2024-10-25 14:02 | XMS_ITS | Encounter Summary ---
Author Organization [facility] Address [address] [place] [address] Care Team Providers Care Deputy Probation Officer Name Role Phone Unavailable Primary Care Provider Unavailabl e Encounter Details Date Type Department Care Team (Late st Contact Info) Description 07/03/1999 11:27 EDT Hospital Encounter [facility] [address] [place] [address] [place] [phone] [place] [address] Unknown, Provider, Social History Tobacco Use Types [...] 10/27/2024 14:15 EST Office Visit [facility] Ophthalmology [facility] [address] [place] [address] Consuelo Nicole MD [address] [place] [phone] documented as of this encounter Visit Diagnoses Not on filedocumented in this encounter
--- OUTSIDE RECORDS SUMMARY | 2024-10-25 14:02 | XMS_ITS | Encounter Summary ---
Author Organization [facility] Address [address] [place] [address] Care Team Providers Care Sales Representative Groceries Name Role Phone Unavailable Primary Care Provider Unavailabl e Encounter Details Date Type Department Care Team (Late st Contact Info) Description 01/15/2000 Results Only [facility] conversion [address] [place] [address] Yoel Deleon MD [address] [place], [place] [address] Social History Tobacco Use Types Packs/Day Years [...] EST Office Visit [facility] [address] [place] [address] Consuelo Nicole MD [address] [place] [phone] documented as of this encounter Procedures Procedure [...] ? LEA MCGOWAN ? Accession #: ? [id number] : ? 1975 (Age: 25) ??F ?Collect Date: ? 01/15/2000 Location: ?Receive Date: ? 01/15/2000 Provider: ?YOEL DELEON MD Copy to: ?YOEL DELEON MD ? Specimen/Source: ?Pap Smear (One Slide) Last Menstrual Period: ? GYNECOLOGIC ??CYTOPATHOLOGY ??REPORT Name: LEA MCGOWAN ? FA : 1975 ?? 25Y F ?Client ID: [id number] SS#: [id number] ? Clinician: YOEL DELEON MD ?? Location: [facility] ??Copy to: ?? Specimen: ?Pap [...] Faye, SCT(ASCP) ? Report Date: ?? 01/22/2000 [employer] Archived Tests - Final Diagnosis Text Field: Clinical History : ? Document reviewed and electronically signed by: ? Conversion ? Report Date: ??01/22/2000 00:00 End of Report [facility] 01/15/2000 13:2 4 EST 01/15/2000 13:25 EST us Yoel Deleon MD PATHOLOGY ORDERABLES Final Resul t Performing Organization Address City/State/[facility] Co de Phone Number [facility] [address] [place] [address] documented in this encounter Visit Diagnoses Not on filedocumented in this encounter
--- OUTSIDE RECORDS SUMMARY | 2024-10-25 14:02 | XMS_ITS | Encounter Summary ---
Author Organization [facility] Address [address] [place] [address] Care Team Providers Care Hand Stripper Name Role Phone Sharon Vargas MD Primary Care Provider [phone] Encounter Details Date Type Department Care Team (Late st Contact Info) Description 12/03/2015 Abstract [facility] Nephrology - [address] [address] Junaid Olivarez MD [address] [place] [address], [address] [place] [address] Social History Tobacco Use Types [...] Info) Description 10/27/2024 14:15 EST Office Visit [facility] Ophthalmology [facility] [address] [place] [address] Consuelo Nicole MD [address] [place] [phone] documented as of this encounter Procedures Procedure Name Priority Date/Time Associated Diagnosis Comments GLUCOSE, SERUM Routine 10/29/2015 URINE [id number] RATIO (ACR) Routine 10/16/2015 COMPREHENSIVE METABOLIC PANEL (CMP) Routine 02/18/2015 COMPLETE BLOOD COUNT Routine 05/28/2014 HEMOGLOBIN A1C Routine 05/28/2014 COMPREHENSIVE METABOLIC PANEL (CMP) Routine 05/28/2014 documented in this encounter Results * GLUCOSE, SERUM (10/29/2015) Glucose, Serum, External 113 LAB Blood specimen (specimen) 10/29/2015 Sharon Vargas MD CHEMISTRY & BLOOD GAS ORDERABL ES Final Result Performing Organization Address [facility]/ZIP Co de Phone Number LAB * ALBUMIN, URINE (10/16/2015) Microalb ug/mg Crea, External 312.7 LAB Microalb mg/dl, External 84.7 LAB Creatinine, Random U (UCRR), External 27.09 LAB Urine specimen (specimen) 10/16/2015 Sharon Vargas MD CHEMISTRY & BLOOD GAS ORDERABL ES Edited Result - Final Performing Organization Address [facility]/ZIP Co de Phone Number LAB * COMPREHENSIVE [...] ORDERABL ES Final Result Performing Organization Address [facility]/ZIP Co de Phone Number LAB * COMPREHENSIVE METABOLIC PANEL (CMP) (05/28/2014) GFR, Calculated, External >60 LAB Glucose, Serum, External 151 LAB Albumin, External 2.9 LAB Total Alkaline Phosphatase, External 137 LAB ALT, External 86 [facility] AST, External 81 [facility] BUN, External 9 [facility] Calculated Calcium, External LAB Calcium, External 8.0 LAB Chloride, External 104 LAB CO2, External 28.8 [facility] Creatinine, External 0.5 LAB Fasting?, External LAB Potassium, External 4.2 LAB Sodium, External 140 LAB Total Protein, External 6.4 LAB Bilirubin, Total, External 0.2 LAB Blood specimen (specimen) 05/28/2014 Sharon Vargas MD CHEMISTRY & BLOOD GAS ORDERABL ES Final Result Performing Organization Address City/[facility]/ZIP Co de Phone Number LAB * HEMAGRAM (05/28/2014) HCT, External 35.7 [facility] MCH, External [facility] MCV, External [facility] MCHC, External [facility] Hemoglobin, External 11.4 LAB WBC, External 7.76 [facility] RBC, External 3.83 [facility] PLT, External 461 [facility] RDW-CV, External LAB Blood specimen [...] 4 added in this encounter Care Teams Hand Stripper Relationship Specialty Start Date End Date Sharon Vargas MD [address] [place] [phone] PCP - General 09/09/15 documented as of this encounter
--- OUTSIDE RECORDS SUMMARY | 2024-10-25 14:02 | XMS_ITS | Encounter Summary ---
Author Organization [facility] Address [address] [place] [address] Care Team Providers Care Shed Hand Name Role Phone Sharon Vargas MD Primary Care Provider [phone] Encounter Details Date Type Department Care Team (Latest Contact Info) Description 03/27/2016 8:14 EDT - 03/27/2016 23:59 EDT Hospital Encounter [facility] [address] [place] [address] Unknown, Provider, MD Discharge Disposition: Home or [...] Code Departure Means Destination Home or Self Long-Term documented in this encounter Plan of Treatment Upcoming Encounters Date Type Department Care Team (Late st Contact Info) Description 10/27/2024 14:[address] [facility] Ophthalmology [facility] [address] [place] [address] Consuelo Nicole MD [address] [place] [phone] documented as of this encounter Visit Diagnoses Not on filedocumented in this encounter Care Teams Shed Hand Relationship Specialty Start Date End Date Sharon Vargas MD [address] [place] [phone] PCP - General 09/09/15 documented as of this encounter
== END 2024-10-25 13:59 | disposition home or self-care (01) ==
LOC: NCHCN 13:58
PROVIDERS: PCP Family Medicine; Visit Provider Family Medicine
DX: K74.60 Unspecified cirrhosis of liver (principal)
CPT/HCPCS: 85610

== ENCOUNTER 2024-11-08 15:37 | Outpatient (REF) | payer MEDICARE, MEDICAID, SELFPAY ==
--- OUTSIDE RECORDS SUMMARY | 2024-11-08 15:39 | XMS_ITS | Encounter Summary ---
Author Organization [facility] [place] [address] Care Team Providers Care Banquet Coordinator Name Role Phone Penny Javed APRN Primary Care Provider + Encounter Details Date Type Department Care Team (Late st Contact Info) Description 11/01/2024 Interpretation Only [facility] in [facility] [address] [place] [phone] Ban Red PA [address] [place] [address] Social History Tobacco Use Types Packs/Day Years Used Date Smoking Tobacco: Never Assessed Sex and Gender Information Value Date Recorded Sex Assigned at Not on file Gender Identity Not on file Sexual Orientation Not on file documented as of this encounter Plan of Treatment Not on file documented as of this encounter Procedures Procedure Name Priority Date/Time Associated Diagnosis Comments NM LUNG VENTILATION PERFUSION STAT 11/02/2024 10:33 AM EST documented in this encounter Results * NM Lung Ventilation Perfusion (11/02/2024 10:33 AM EST) PT CLASS I RAD ADMITDTTM [id number] RAD PT RAD MD INFO [id number]^MARLINE ^BAN RAD EXAM DESC NMVQ^NM LUNG VENTILATION AND PERFUSION^RIS [facility] WORKSTATION ID [id number] [facility] Anatomical Region Laterality Modality Other Impressions 11/02/2024 11:46 AM EST No pulmonary embolism. Thank you for letting us participate in the care of this patient. ??If you are a health care provider and have any questions regarding this report, please contact the number below. ??For patients who have questions please contact the health day care assistant that requested your imaging first. ? Narrative 11/02/2024 11:46 AM EST EXAMINATION: NM LUNG VENTILATION AND PERFUSION CLINICAL HISTORY: ??Reason NM Lung: ??SOB ??Add'l Info: COPD, KYM TECHNIQUE: Following inhalation of 1 mCi of technetium-99m PYP aerosol, ventilation images of the lungs were obtained in the anterior, posterior, lateral and oblique projections. This was followed by intravenous administration of 4 mCi of technetium-99m macro-aggregated albumin. Perfusion images of the lungs were then obtained in the same projections. COMPARISON: Chest radiograph and CT chest 11/01/2024 FINDINGS: There are no ventilation or perfusion defects. Procedure Note Júnior Vick MD - 11/02/2024 EXAMINATION: NM LUNG VENTILATION AND PERFUSION CLINICAL HISTORY: Reason NM Lung: SOB Add'l Info: COPD, KYM TECHNIQUE: Following inhalation of 1 mCi of technetium-99m PYP aerosol, ventilation images of the lungs were obtained in the anterior,posterior, lateral and oblique projections. This was followed by intravenousadministration of 4 mCi of technetium-99m macro-aggregated albumin. Perfusion images ofthe lungs were then obtained in the same projections. COMPARISON: Chest radiograph and CT chest 11/01/2024 FINDINGS: There are no ventilation or perfusion defects. IMPRESSION No pulmonary embolism. Thank you for letting us participate in the care of this patient. If youare a health care provider and have any questions regarding this report,please contact the number below. For patients who have questions please contactthe health day care assistant that requested your imaging first. Ban POTTS IMG NM ORDERABLES documented in this encounter Visit Diagnoses Not on filedocumented in this encounter Care Teams Banquet Coordinator Relationship Specialty Start Date End Date Penny Javed APRN PCP - General 09/09/10 documented as of this encounter
--- OUTSIDE RECORDS SUMMARY | 2024-11-08 15:39 | XMS_ITS | Encounter Summary ---
Author Organization [facility] [place] [address] Care Team Providers Care Licensing Officer Name Role Phone Penny Javed LEGAL CLERK Primary Care Provider + Encounter Details Date Type Department Care Team (Late st Contact Info) Description 11/02/2024 Interpretation Only [facility] in [facility] [address] [place] [phone] Sonia Welch MD [address] [place], [place] [phone] Social History Tobacco Use Types Packs/Day Years Used Date Smoking Tobacco: Never Assessed Sex and Gender Information Value Date Recorded Sex Assigned at Not on file Gender Identity Not on file Sexual Orientation Not on file documented as of this encounter Plan of Treatment Not on file documented as of this encounter Visit Diagnoses Not on filedocumented in this encounter Care Teams Licensing Officer Relationship Specialty Start Date End Date Penny Javed APRN PCP - General 09/09/10 documented as of this encounter
--- OUTSIDE RECORDS SUMMARY | 2024-11-08 15:39 | XMS_ITS | Clinical Summary ---
[facility] [place] [address] Care Team Providers Care Hand Tool Lapper Name Role Phone Penny Javed APRN Primary Care Provider + Encounters Date Type Department Care Team Description 11/02/2024 Interpretation Only [facility] in [address] [phone] Sonia Welch MD 11/01/2024 Interpretation Only [facility] in [address] [phone] Pavan Red PA 11/01/2024 Interpretation Only [facility] in [address] [phone] Sonia Welch MD 11/01/2024 Interpretation Only [facility] in [address] [phone] Abbi Luna MD 10/07/2024 Interpretation Only [facility] in [address] [phone] Elmer Vaz Jr., MD from Last 3 [...] VENTILATION PERFUSION STAT 11/02/2024 10:[address] CHEST WO CONTRAST (GENERIC) Routine 11/01/2024 1:34 PM EST XR CHEST ONE VIEW STAT 11/01/2024 2:[address] ABDOMEN AND PELVIS WO CONTRAST STAT 10/07/2024 2:31 PM EST from Last 3 Months Results * NM Lung Ventilation Perfusion (11/02/2024 10:33 AM EST) PT CLASS I RAD ADMITDTTM [id number] [facility] PT [facility] MD INFO [id number]^MARLINE ^PAVAN RAD EXAM DESC NMVQ^NM LUNG VENTILATION AND PERFUSION^RIS [facility] WORKSTATION ID [id number] [facility] Anatomical Region Laterality Modality Other Impressions 11/02/2024 11:46 AM EST No pulmonary embolism. Thank you for letting us participate in the care of this patient. ??If you are a health care provider and have any questions regarding this report, please contact the number below. ??For patients who have questions please contact the health resident care manager rn that requested your imaging first. ? Electronically signed by: Júnior Vick MD, [facility] ([phone]), at 11/02/2024 11:46 AM Narrative 11/02/2024 11:46 AM EST EXAMINATION: NM [...] patients who have questions please contactthe health resident care manager rn that requested your imaging first. Pavan POTTS IMG NM ORDERABLES * CT Chest wo Contrast (Generic) (11/01/2024 1:34 PM EST) PT CLASS I DH RAD ADMITDTTM [id number] RAD PT RAD INFO [id number]^OLMAN ^SONIA^B RAD EXAM DESC CTCHST^CT CHEST WO CONTRAST^RIS [facility] WORKSTATION ID [id number] [facility] Anatomical Region Laterality Modality Chest Computed Tomogra phy Impressions 11/02/2024 9:30 AM EST 1. ??Small pleural effusions and lung findings which may be secondary to atypical pneumonia. There may be an underlying component of lung edema. Anasarca. 2. ??Findings suggestive of anemia Thank you for letting us participate in the care of this patient. ??If you are a health care provider and have any questions regarding this report, please contact the number below. ??For patients who have questions please contact the health resident care manager rn that requested your imaging first. ? Electronically signed by: Ricardo Lopez MD, [facility] ??([phone]), at 11/02/2024 9:30 AM Narrative 11/02/2024 9:30 AM EST EXAMINATION: CT CHEST WO CONTRAST CLINICAL HISTORY: Shortness of breath, pneumonia TECHNIQUE: Helical CT of the chest without intravenous contrast administration. Thin-section reconstructions as well as coronal and sagittal reformatted images were generated. COMPARISON: None FINDINGS: Pulmonary parenchyma: Ill-defined mixed attenuation densities in the upper lobes, left greater than right as well as ill-defined groundglass densities in the lower lobes, left greater than right, as well as peripheral mixed attenuation densities. Airways: No central endobronchial abnormality. Pleura: There are small pleural effusions Lymph nodes: No lymphadenopathy. Heart and vasculature: The heart is normal in size. No pericardial effusion. Hyperdense interventricular septum is suggestive of anemia. The aorta is normal in caliber. Other mediastinal structures: No significant findings. Upper abdomen: Cholecystectomy. There is a lipid rich right adrenal adenoma. Bones and soft tissues: There is diffuse qualitative osteopenia. There is anasarca. Procedure Note Ricardo Lopez MD - 11/02/2024 EXAMINATION: CT CHEST WO CONTRAST CLINICAL HISTORY: Shortness of breath, pneumonia TECHNIQUE: Helical CT of the chest without intravenous contrastadministration. Thin-section reconstructions as well as coronal and sagittal reformattedimages were generated. COMPARISON: None FINDINGS: Pulmonary parenchyma: Ill-defined mixed attenuation densities in theupper lobes, left greater than right as well as ill-defined groundglassdensities in the lower lobes, left greater than right, as well as peripheral mixed attenuation densities. Airways: No central endobronchial abnormality. Pleura: There are small pleural effusions Lymph nodes: No lymphadenopathy. Heart and vasculature: The heart is normal in size. No pericardialeffusion. Hyperdense interventricular septum is suggestive of anemia. The aorta isnormal in caliber. Other mediastinal structures: No significant findings. Upper abdomen: Cholecystectomy. There is a lipid rich right adrenaladenoma. Bones and soft tissues: There is diffuse qualitative osteopenia. Thereis anasarca. IMPRESSION 1. Small pleural effusions and lung findings which may be secondary toatypical pneumonia. There may be an underlying component of lung edema. Anasarca. 2. Findings suggestive of anemia Thank you for letting us participate in the care of this patient. If youare a health care provider and have any questions regarding this report,please contact the number below. For patients who have questions please contactthe health resident care manager rn that requested your imaging first. Electronically signed by: Ricardo Lopez MD, [facility]([phone]), at 11/02/2024 9:30 AM Sonia Welch MD IMG CT ORDERABLES * XR Chest One View (11/01/2024 2:10 AM EST) PT CLASS E RAD ADMITDTTM [id number] RAD PT [facility] INFO [id number]^OCONNO R^ABBI DH RAD EXAM DESC XCXR1^XR CHEST PORTABLE OR 1V^RIS [facility] WORKSTATION ID [id number] [facility] Anatomical Region Laterality Modality Chest N/A Radiographic Zoila ging Impressions 11/01/2024 2:13 AM EST FINDINGS /IMPRESSION: Evaluation of right inferior hemithorax is limited due to overlying metallic leads. Trachea and mainstem bronchi are within normal limits. Accentuated cardiac silhouette, at least partly due to technique. Normal damaris and pulmonary vascular markings. Bibasilar hazy pulmonary opacities. Trace right pleural effusion. No pneumothorax. Normal osseous structures and upper abdomen. Thank you for letting us participate in the care of this patient. ??If you are a health care provider and have any questions regarding this report, please contact the number below. ??For patients who have questions please contact the health resident care manager rn that requested your imaging first. ? Narrative 11/01/2024 2:13 AM EST EXAMINATION: XR CHEST PORTABLE OR 1V CLINICAL HISTORY: ??Reason for Chest: ??SOB ??Add'l Info: TECHNIQUE: 1 view of the chest . One image. COMPARISON: Chest x-ray 12/19/2016. Procedure Note Mark Patel MD - 11/01/2024 EXAMINATION: XR CHEST PORTABLE OR 1V CLINICAL HISTORY: Reason for Chest: SOB Add'l Info: TECHNIQUE: 1 view of the chest . One image. COMPARISON: Chest x-ray 12/19/2016. IMPRESSION FINDINGS /IMPRESSION: Evaluation of right inferior hemithorax is limited due to overlyingmetallic leads. Trachea and mainstem bronchi are within normal limits. Accentuatedcardiac silhouette, at least partly due to technique. Normal damaris and pulmonaryvascular markings. Bibasilar hazy pulmonary opacities. Trace right pleuraleffusion. No pneumothorax. Normal osseous structures and upper abdomen. Thank you for letting us participate in the care of this patient. If youare a health care provider and have any questions regarding this report,please contact the number below. For patients who have questions please contactthe health resident care manager rn that requested your imaging first. Abbi Luna MD IMG DX ORDERABLES * CT Abdomen & Pelvis wo Contrast (10/07/2024 2:31 PM EST) PT CLASS E RAD ADMITDTTM [id number] [facility] PT [facility] INFO [id number]^MARSAN ^ELMER^J RAD EXAM DESC CTAPWO^CT ABD PELVIS WO IV OR ORAL CONTRAST^RIS [facility] WORKSTATION ID [id number] [facility] Anatomical [...] who have questions please contact the health resident care manager rn that requested your imaging first. ? Electronically signed by: Júnior Vick MD, [facility] ([phone]), at 10/07/2024 3:51 PM Narrative 10/07/2024 3:51 [...] patients who have questions please contactthe health resident care manager rn that requested your imaging first. Elmer Vaz Jr., MD IMG CT ORDERABLE S from Last 3 Months Care Teams Hand Tool Lapper Relationship Specialty Start Date End Date Penny Javed, CORNELIA PCP - General 09/09/10
--- OUTSIDE RECORDS SUMMARY | 2024-11-08 15:40 | XMS_ITS | Encounter Summary ---
Author Organization [facility] [place] [address] Care Team Providers Care Broach Operator Name Role Phone Penny Javed APRN Primary Care Provider + Encounter Details Date Type Department Care Team (Late st Contact Info) Description 10/07/2024 Interpretation Only [facility] in [facility] [address] [place] [address] Elmer Vaz Jr., MD [address] [place] [address] Social History Tobacco Use Types [...] PM EST) PT CLASS E RAD ADMITDTTM [id number] RAD PT RAD INFO [id number]^HUSEYIN ^ELMER^Cheli RAD EXAM DESC CTAPWO^CT ABD PELVIS WO IV OR ORAL CONTRAST^RIS [facility] WORKSTATION ID [id number] [facility] Anatomical Region Laterality Modality Abdomen, Pelvis Computed [...] who have questions please contact the health special needs child caregiver that requested your imaging first. ? Narrative [...] patients who have questions please contactthe health special needs child caregiver that requested your imaging first. Elmer Vaz Jr., MD IMG CT ORDERABLE S documented in this encounter Visit Diagnoses Not on filedocumented in this encounter Care Teams Broach Operator Relationship Specialty Start Date End Date Penny Javed, CORNELIA PCP - General 09/09/10 documented as of this encounter
--- OUTSIDE RECORDS SUMMARY | 2024-11-08 15:40 | XMS_ITS | Data Portability ---
Author Organization [facility] [place]_[facility]_Eulogio Long Address [address] [place] [address] Assessment Encounter Date Assessment Date Assessment LastModified [...] regarding any risk of combining sedating agents. [email or web address] Not available 03/04/2022 13:28:21 03/11/2022 03/11/2022 Telemedicine [...] regarding any risk of combining sedating agents. [email or web address] Not available 03/11/2022 13:08:03 03/25/2022 03/25/2022 Telemedicine [...] regarding any risk of combining sedating agents. [email or web address] Not available 03/25/2022 13:50:44 04/08/2022 04/08/2022 Telemedicine [...] risk of combining sedating agents. Not available 04/08/2022 13:48:17 04/22/2022 04/22/2022 Telemedicine [...] recorded. Lab drug screen, urine 2021 022 [facility], [address] [place], [address], 2 11:21:44 drug screen, urine 2021 022 [facility], [address] [place], [address], 2 13:54:31 drug screen, urine 2021 022 [facility], [address] Kyle Goff [place], [address], 2 14:14:27 AST/SGOT (aspartate aminotransf erase), serum or plasma [address] (Lab), [address] [place] [address], [address], 2 11:11:26 ALT (alanine aminotransf erase), serum or plasma [address] (Lab), [address] [place] [address], [address], 2 11:11:26 gamma-gluta myl transferase (ggt), serum [address] (Lab), [address] [place] [address], [address], 2 11:11:26 drug screen, urine 2021 022 [facility], [address] Kyle Goff [place], [address], 2 09:33:11 drug screen, urine [address], [address] [place], [address], 2 10:28:58 Referral None recorded. Procedures None [...] vaughn by GINO Vitaliy FRIEDMAN Not Available [address] [address] [place], [address], 02/20/2022 11:43:53 02/19/2008 0302/18/2022 [facility] PT SCREE MONIKA benzodiazapi olivia Negati ve NG/mL 200 Not Available [facility] [place], [address], 02/20/2022 11:43:53 02/19/20 22 02/18/2022 BUPRE NORPH INE PT SCREE MONIKA buprenorphin e Positi ve NG/mL 5 Not Available [address] [place] [address] [place], [address], 02/20/2022 11:43:53 02/19/20 22 02/18/2022 BUPRE NORPH INE PT SCREE MONIKA cocaine metabolite Negati ve NG/mL 150 Not Available [address] [address] [place], [address], 02/20/2022 11:43:53 02/19/20 22 02/18/2022 BUPRE NORPH INE PT SCREE MONIKA opiates Negati ve NG/mL 300 Not Available [facility] [place], [address], 02/20/2022 11:43:53 02/19/20 22 02/18/2022 BUPRE NORPH INE PT SCREE MONIKA oxycodone Negati ve NG/mL 300 Not Available [address] [address] [place], [address], 02/20/2022 11:43:53 02/19/20 22 02/18/2022 BUPRE NORPH INE PT SCREE OMNIKA fentanyl Negati ve NG/mL 2 Not Available [address] [address] [place], [address], 02/20/2022 11:43:53 02/19/20 22 02/18/2022 BUPRE NORPH INE PT SCREE MONIKA ethyl alcohol Negati ve mg/dL 10 Not Available [facility] [place], [address], 02/20/2022 11:43:53 02/19/20 22 02/18/2022 BUPRE NORPH INE PT SCREE MONIKA methadone metabolite Negati ve NG/mL 300 Not Available [facility] [place], [address], 02/20/2022 11:43:53 02/19/20 22 02/18/2022 BUPRE NORPH INE PT SCREE MONIKA cannabinoids (THC) Negati ve NG/mL 50 Not Available [facility] [place], [address], 02/20/2022 11:43:53 02/19/20 22 02/18/2022 BUPRE NORPH INE PT SCREE MONIKA urine creatinine 138.4 mg/dL >20 Not Available [address] [place] [address] [place], [address], 02/20/2022 11:43:53 02/19/20 22 02/18/2022 BUPRE NORPH INE PT SCREE MONIKA urine pH 5.60 4.5-9. 0 Not Available [address] [address] [place], [address], 02/20/2022 11:43:53 02/19/20 22 02/18/2022 BUPRE NORPH INE PT SCREE MONIKA specific gravity 1.019 1.003- 1.035 Not Available [address] [address] [place], [address], 02/20/2022 11:43:53 02/19/20 22 02/18/2022 PRESC RIBED DRUG CONFI RMATI ON BUPRE NORPH INE 1, QN, U buprenorphin e 155.3 NG/mL 10 Gerda vaughn by GINO STARK FRIEDMAN Not Available [address] [address] [place], [address], 02/24/2022 13:27:22 02/19/20 22 02/18/2022 PRESC RIBED DRUG CONFI RMATI ON BUPRE NORPH INE 1, QN, U norbuprenorp sebastián 191.7 NG/mL 10 Not Available [address] [address] [place], [address], 02/24/2022 13:27:22 02/19/20 22 02/18/2022 PRES RIBED DRUG CONFI RMATI ON BUPRE NORPH INE 1, QN, U legend Abbrev iation s LOW - Detec francis but unqua ntifi able OLR - Outsi de of linea r range ATR - Addit ional Testi ng Requi red Not Available [address] [address] [place], [address], 02/24/2022 13:27:22 02/19/20 22 02/18/2022 [facility] RIBED DRUG CONFI RMATI ON BUPRE NORPH INE 1, QN, U billing only ([id number]) Billin g Only Not Available [facility] [place], [address], 02/24/2022 13:27:22 02/26/20 22 02/25/2022 BUPRE NORPH INE PT SCREE MONIKA amphetamines Negati ve NG/mL 1,000 Gerda olivo d by GINO STARK DECKER Not Available [address] [address] [place], [address], 02/26/2022 12:36:27 02/26/20 22 02/25/2022 BUPRE NORPH INE PT SCREE MONIKA benzodiazapi olivia Negati ve NG/mL 200 Not Available [facility] [place], [address], 02/26/2022 12:36:27 02/26/20 22 02/25/2022 BUPRE NORPH INE PT SCREE MONIKA buprenorphin e Positi ve NG/mL 5 Not Available [facility] [place], [address], 02/26/2022 12:36:27 02/26/20 22 02/25/2022 BUPRE NORPH INE PT SCREE MONIKA cocaine metabolite Negati ve NG/mL 150 Not Available [facility] [place], [address], 02/26/2022 12:36:27 02/26/20 22 02/25/2022 BUPRE NORPH INE PT SCREE MONIKA opiates Negati ve NG/mL 300 Not Available [facility] [place], [address], 02/26/2022 12:36:27 02/26/20 22 02/25/2022 BUPRE NORPH INE PT SCREE MONIKA oxycodone Negati ve NG/mL 300 Not Available [facility] [place], [address], 02/26/2022 12:36:27 02/26/20 22 02/25/2022 BUPRE NORPH INE PT SCREE MONIKA fentanyl Negati ve NG/mL 2 Not Available [facility] [place], [address], 02/26/2022 12:36:27 02/26/20 22 02/25/2022 BUPRE NORPH INE PT SCREE MONIKA ethyl alcohol Negati ve mg/dL 10 Not Available [facility] [place], [address], 02/26/2022 12:36:27 02/26/20 22 02/25/2022 BUPRE NORPH INE PT SCREE MONIKA methadone metabolite Negati ve NG/mL 300 Not Available [facility] [place], [address], 02/26/2022 12:36:27 02/26/20 22 02/25/2022 BUPRE NORPH INE PT SCREE MONIKA cannabinoids (THC) Negati ve NG/mL 50 Not Available [facility] [place], [address], 02/26/2022 12:36:27 02/26/20 22 02/25/2022 BUPRE NORPH INE PT SCREE MONIKA urine creatinine 101.1 mg/dL >20 Not Available [address] [address] [place], [address], 02/26/2022 12:36:27 02/26/20 22 02/25/2022 BUPRE NORPH INE PT SCREE MONIKA urine pH 5.30 4.5-9. 0 Not Available [address] [address] [place], [address], 02/26/2022 12:36:27 02/26/20 22 02/25/2022 BUPRE NORPH INE PT SCREE MONIKA specific gravity 1.014 1.003- 1.035 Not Available [address] [address] [place], [address], 02/26/2022 12:36:27 03/04/20 22 03/04/2022 BUPRE NORPH INE PT SCREE MONIKA amphetamines Negati ve NG/mL 1,000 [facility] baron olivo d by [facility] Not Available [address] [place] [address] [place], [address], 03/05/2022 11:21:44 03/04/20 22 03/04/2022 BUPRE NORPH INE PT SCREE MONIKA benzodiazapi olivia Negati ve NG/mL 200 Not Available [facility] [place], [address], 03/05/2022 11:21:44 03/04/20 22 03/04/2022 BUPRE NORPH INE PT SCREE MONIKA buprenorphin e Positi ve NG/mL 5 Not Available [facility] [place], [address], 03/05/2022 11:21:44 03/04/20 22 03/04/2022 BUPRE NORPH INE PT SCREE MONIKA cocaine metabolite Negati ve NG/mL 150 Not Available [facility] [place], [address], 03/05/2022 11:21:44 03/04/20 22 03/04/2022 BUPRE NORPH INE PT SCREE MONIKA opiates Negati ve NG/mL 300 Not Available [facility] [place], [address], 03/05/2022 11:21:44 03/04/20 22 03/04/2022 BUPRE NORPH INE PT SCREE MONIKA oxycodone Negati ve NG/mL 300 Not Available [facility] [place], [address], 03/05/2022 11:21:44 03/04/20 22 03/04/2022 BUPRE NORPH INE PT SCREE MONIKA fentanyl Negati ve NG/mL 2 Not Available [facility] [place], [address], 03/05/2022 11:21:44 03/04/20 22 03/04/2022 BUPRE NORPH INE PT SCREE MONIKA ethyl alcohol Negati ve mg/dL 10 Not Available [facility] [place], [address], 03/05/2022 11:21:44 03/04/20 22 03/04/2022 BUPRE NORPH INE PT SCREE MONIKA methadone metabolite Negati ve NG/mL 300 Not Available [facility] [place], [address], 03/05/2022 11:21:44 03/04/20 22 03/04/2022 BUPRE NORPH INE PT SCREE MONIKA cannabinoids (THC) Negati ve NG/mL 50 Not Available [facility] [place], [address], 03/05/2022 11:21:44 03/04/20 22 03/04/2022 BUPRE NORPH INE PT SCREE MONIKA urine creatinine 40.7 mg/dL >20 Not Available [address] [place] [address] [place], [address], 03/05/2022 11:21:44 03/04/20 22 03/04/2022 BUPRE NORPH INE PT SCREE MONIKA urine pH 5.80 4.5-9. 0 Not Available [address] [address] [place], [address], 03/05/2022 11:21:44 03/04/20 22 03/04/2022 BUPRE NORPH INE PT SCREE MONIKA specific gravity 1.009 1.003- 1.035 Not Available [address] [address] [place], [address], 03/05/2022 11:21:44 03/11/20 22 03/11/2022 BUPRE NORPH INE PT SCREE MONIKA amphetamines Negati ve NG/mL 1,000 [facility] baron vaughn by [facility] Not Available [address] [address] [place], [address], 03/12/2022 13:54:31 03/11/20 22 03/11/2022 BUPRE NORPH INE PT SCREE MONIKA benzodiazapi olivia Negati ve NG/mL 200 Not Available [facility] [place], [address], 03/12/2022 13:54:31 03/11/20 22 03/11/2022 BUPRE NORPH INE PT SCREE MONIKA buprenorphin e Positi ve NG/mL 5 Not Available [facility] [place], [address], 03/12/2022 13:54:31 03/11/20 22 03/11/2022 BUPRE NORPH INE PT SCREE MONIKA cocaine metabolite Negati ve NG/mL 150 Not Available [facility] [address] [place], [address], 03/12/2022 13:54:31 03/11/20 22 03/11/2022 BUPRE NORPH INE PT SCREE MONIKA opiates Positi ve NG/mL 300 abnormal Not Available [address] [address] [place], [address], 03/12/2022 13:54:31 03/11/20 22 03/11/2022 BUPRE NORPH INE PT SCREE MONIKA oxycodone Negati ve NG/mL 300 Not Available [address] [address] [place], [address], 03/12/2022 13:54:31 03/11/20 22 03/11/2022 BUPRE NORPH INE PT SCREE MONIKA fentanyl Negati ve NG/mL 2 Not Available [address] [address] [place], [address], 03/12/2022 13:54:31 03/11/20 22 03/11/2022 BUPRE NORPH INE PT SCREE MONIKA ethyl alcohol Negati ve mg/dL 10 Not Available [address] [address] [place], [address], 03/12/2022 13:54:31 03/11/20 22 03/11/2022 BUPRE NORPH INE PT SCREE MONIKA methadone metabolite Negati ve NG/mL 300 Not Available [address] [address] [place], [address], 03/12/2022 13:54:31 03/11/20 22 03/11/2022 BUPRE NORPH INE PT SCREE MONIKA cannabinoids (THC) Negati ve NG/mL 50 Not Available [address] [address] [place], [address], 03/12/2022 13:54:31 03/11/20 22 03/11/2022 BUPRE NORPH INE PT SCREE MONIKA urine creatinine 55.1 mg/dL >20 Not Available [address] [place] [address] [place], [address], 03/12/2022 13:54:31 03/11/20 22 03/11/2022 BUPRE NORPH INE PT SCREE MONIKA urine pH 5.50 4.5-9. 0 Not Available [address] [address] [place], [address], 03/12/2022 13:54:31 03/11/20 22 03/11/2022 BUPRE NORPH INE PT SCREE MONIKA specific gravity 1.008 1.003- 1.035 Not Available [address] [address] [place], [address], 03/12/2022 13:54:31 03/11/20 22 03/11/2022 ADMIT FRANCIS OPIAT ES USE admitted opiates use NTP Elect baron vaughn by [facility] No Testi ng Perfo rmed Not Available [address] [place] [address] [place], [address], 03/17/2022 07:29:46 03/25/20 22 03/25/2022 BUPRE NORPH INE PT SCREE MONIKA amphetamines Negati ve NG/mL 1,000 Elect baron olivo d by [facility] Not Available [address] [place] [address] [place], [address], 03/26/2022 14:14:27 03/25/20 22 03/25/2022 BUPRE NORPH INE PT SCREE MONIKA benzodiazapi olivia Negati ve NG/mL 200 Not Available [facility] [place], [address], 03/26/2022 14:14:27 03/25/20 22 03/25/2022 BUPRE NORPH INE PT SCREE MONIKA buprenorphin e Positi ve NG/mL 5 Not Available [facility] [address] [place], [address], 03/26/2022 14:14:27 03/25/20 22 03/25/2022 BUPRE NORPH INE PT SCREE MONIKA cocaine metabolite Negati ve NG/mL 150 Not Available [facility] [place], [address], 03/26/2022 14:14:27 03/25/20 22 03/25/2022 BUPRE NORPH INE PT SCREE MONIKA opiates Negati ve NG/mL 300 Not Available [address] [address] [place], [address], 03/26/2022 14:14:27 03/25/20 22 03/25/2022 BUPRE NORPH INE PT SCREE MONIKA oxycodone Negati ve NG/mL 300 Not Available [facility] [place], [address], 03/26/2022 14:14:27 03/25/20 22 03/25/2022 BUPRE NORPH INE PT SCREE MONIKA fentanyl Negati ve NG/mL 2 Not Available [address] [address] [place], [address], 03/26/2022 14:14:27 03/25/20 22 03/25/2022 BUPRE NORPH INE PT SCREE MONIKA ethyl alcohol Negati ve mg/dL 10 Not Available [facility] [place], [address], 03/26/2022 14:14:27 03/25/20 22 03/25/2022 BUPRE NORPH INE PT SCREE MONIKA methadone metabolite Negati ve NG/mL 300 Not Available [address] [address] [place], [address], 03/26/2022 14:14:27 03/25/20 22 03/25/2022 BUPRE NORPH INE PT SCREE MONIKA cannabinoids (THC) Negati ve NG/mL 50 Not Available [address] [address] [place], [address], 03/26/2022 14:14:27 03/25/20 22 03/25/2022 BUPRE NORPH INE PT SCREE MONIKA urine creatinine 72.8 mg/dL >20 Not Available [address] [place] [address] [place], [address], 03/26/2022 14:14:27 03/25/20 22 03/25/2022 BUPRE NORPH INE PT SCREE MONIKA urine pH 5.20 4.5-9. 0 Not Available [address] [place] [address] [place], [address], 03/26/2022 14:14:27 03/25/20 22 03/25/2022 BUPRE NORPH INE PT SCREE MONIKA specific gravity 1.016 1.003- 1.035 Not Available [address] [place] [address] [place], [address], 03/26/2022 14:14:27 03/25/20 22 03/25/2022 PRESC RIBED DRUG CONFI RMATI ON BUPRE NORPH INE 1, QN, U buprenorphin e 31.0 NG/mL 10 Elect baron olivo d by [facility] Not Available [address] [place] [address] [place], [address], 03/31/2022 06:31:56 03/25/20 22 03/25/2022 PRESC RIBED DRUG CONFI RMATI ON BUPRE NORPH INE 1, QN, U norbuprenorp sebastián 168.7 NG/mL 10 Not Available [address] [place] [address] [place], [address], 03/31/2022 06:31:56 03/25/20 22 03/25/2022 PRESC RIBED DRUG CONFI RMATI ON BUPRE NORPH INE 1, QN, U legend Abbrev iation s LOW - Detec francis but unqua ntifi able OLR - Outsi de of linea r range ATR - Addit ional Testi ng Requi red Not Available [address] [place] [address] [place], [address], 03/31/2022 06:31:56 03/25/20 22 03/25/2022 [facility] RIBED DRUG CONFI RMATI ON BUPRE NORPH INE 1, QN, U billing only ([id number]) Billin g Only Not Available [facility] [place], [address], 03/31/2022 06:31:56 04/08/20 22 04/08/2022 BUPRE NORPH INE PT SCREE MONIKA amphetamines Negati ve NG/mL 1,000 Elect baron olivo d by [facility] Not Available [address] [address] [place], [address], 04/13/2022 09:33:11 04/08/20 22 04/08/2022 BUPRE NORPH INE PT SCREE MONIKA benzodiazapi olivia Negati ve NG/mL 200 Not Available [facility] [place], [address], 04/13/2022 09:33:11 04/08/20 22 04/08/2022 BUPRE NORPH INE PT SCREE MONIKA buprenorphin e Positi ve NG/mL 5 Not Available [facility] [place], [address], 04/13/2022 09:33:11 04/08/20 22 04/08/2022 BUPRE NORPH INE PT SCREE MONIKA cocaine metabolite Negati ve NG/mL 150 Not Available [facility] [place], [address], 04/13/2022 09:33:11 04/08/20 22 04/08/2022 BUPRE NORPH INE PT SCREE MONIKA opiates Negati ve NG/mL 300 Not Available [facility] [place], [address], 04/13/2022 09:33:11 04/08/20 22 04/08/2022 BUPRE NORPH INE PT SCREE MONIKA oxycodone Negati ve NG/mL 300 Not Available [address] [place] [address] [place], [address], 04/13/2022 09:33:11 04/08/20 22 04/08/2022 BUPRE NORPH INE PT SCREE MONIKA fentanyl Positi ve NG/mL 2 abnormal Not Available [address] [place] [address] [place], [address], 04/13/2022 09:33:11 04/08/20 22 04/08/2022 BUPRE NORPH INE PT SCREE MONIKA ethyl alcohol Positi ve mg/dL 10 abnormal Not Available [address] [place] [address] [place], [address], 04/13/2022 09:33:11 04/08/20 22 04/08/2022 BUPRE NORPH INE PT SCREE MONIKA methadone metabolite Negati ve NG/mL 300 Not Available [address] [place] [address] [place], [address], 04/13/2022 09:33:11 04/08/20 22 04/08/2022 BUPRE NORPH INE PT SCREE MONIKA cannabinoids (THC) Negati ve NG/mL 50 Not Available [address] [place] [address] [place], [address], 04/13/2022 09:33:11 04/08/20 22 04/08/2022 BUPRE NORPH INE PT SCREE MONIKA urine creatinine 42.7 mg/dL >20 Not Available [address] [place] [address] [place], [address], 04/13/2022 09:33:11 04/08/20 22 04/08/2022 BUPRE NORPH INE PT SCREE MONIKA urine pH 4.10 4.5-9. 0 low Not Available [address] [place] [address] [place], [address], 04/13/2022 09:33:11 04/08/20 22 04/08/2022 BUPRE NORPH INE PT SCREE MONIKA specific gravity 1.035 1.003- 1.035 Not Available [address] [place] [address] [place], [address], 04/13/2022 09:33:11 04/08/20 22 04/08/2022 OPIAT E W/ FENTA NYL 6-acetylmorp sebastián Negati ve NG/mL 10 Elect baron olivo d by GINO [facility] Not Available [address] [address] [place], [address], 04/16/2022 09:49:50 04/08/20 22 04/08/2022 OPIAT E W/ FENTA NYL codeine Negati ve NG/mL 50 Not Available [facility] [place], [address], 04/16/2022 09:49:50 04/08/20 22 04/08/2022 OPIAT E W/ FENTA NYL hydrocodone Negati ve NG/mL 50 Not Available [facility] [place], [address], 04/16/2022 09:49:50 04/08/20 22 04/08/2022 OPIAT E W/ FENTA NYL hydromorphon e Negati ve NG/mL 50 Not Available [facility] [place], [address], 04/16/2022 09:49:50 04/08/20 22 04/08/2022 OPIAT E W/ FENTA NYL morphine Negati ve NG/mL 50 Not Available [facility] [place], [address], 04/16/2022 09:49:50 04/08/20 22 04/08/2022 OPIAT E W/ FENTA NYL norhydrocodo ne Negati ve NG/mL 100 Not Available [facility] [place], [address], 04/16/2022 09:49:50 04/08/20 22 04/08/2022 OPIAT E W/ FENTA NYL fentanyl Negati ve NG/mL 20 Not Available [place] [address] Kyle G[place], [address], 04/16/2022 09:49:50 04/08/20 22 04/08/2022 OPIAT E W/ FENTA NYL norfentanyl Negati ve NG/mL 20 Not Available [address] [place] [address] Kyle Goff [place], [address], 04/16/2022 09:49:50 04/08/20 22 04/08/2022 OPIAT E W/ FENTA NYL tramadol Negati ve NG/mL 100 Not Available [address] [place] [address] [place], [address], 04/16/2022 09:49:50 04/08/20 22 04/08/2022 OPIAT E W/ FENTA NYL legend Abbrev iation s OLR - Outsi de of linea r range Not Available [address] [place] [address] [place], [address], 04/16/2022 09:49:50 04/08/20 22 04/08/2022 OPIAT E W/ FENTA NYL billing only ([id number]) Billin g Only Not Available [address] [place] [address] [place], [address], 04/16/2022 09:49:50 Result Notes None recorded. Problems Name Problem SNOMED Code Status Onset Date Resolution Date Notes Provider Name and Address Organization Details Recorded Time Knee joint valgus deformity 240756092 Active 2020 on disability Not Available [facility] 05:31:38 Depressiv e disorder 40336426 Active 2020 on disability Not Available [facility] 05:31:38 Type 2 diabetes mellitus 86109550 Active 2020 Not Available [facility] 05:31:38 Essential hypertens ion 40639921 Active 2020 Not Available [facility] 05:31:38 Opioid dependenc e 93237975 Active 2021 Mary Carmen Friedman NP [address] [place], [address] , [facility] 2 09:46:10 Restless legs 64135415 Active 2021 Mary Carmen Friedman NP [address] [place], [address] , [facility] 2 13:15:26 Adhesive capsuliti s of shoulder 019146243 Active 2021 Mary Carmen Friedman NP [address] [place] [address], [place], [address] , [facility] 2 13:08:29 Viral hepatitis C 89656070 Active 2021 Mary Carmen Friedman NP [address] [place] [address], [place], [address] , [facility] 2 13:44:29 Problem Notes None recorded. Procedures Surgical History Date Name Laterality Status Provider Name and Address Organization Details Recorded Time 04/22/2022 10286, G0480, G0481 completed [facility] 04/22/2022 09:42:02 02/25/2022 23134, G0480, G0481 completed [facility] 02/25/2022 13:24:56 10/22/2021 23560, G0480, G0481 completed Mary Carmen Friedman NP [address] [place] [address], [address], [facility] 10/22/2021 09:03:24 Imaging Results None recorded. Procedure Notes None recorded. Medical Equipment None Reported. Allergies Allergen ID Allergen Name Allergen Category Reaction Reaction Severity Criticality Documentation Date Start Date Code Code System Note Provider Name and Address Organization Details Recorded Time 2445 lisinopri l medicatio n cough Not available Not available 10/17/2021 01036 RxNorm Not Available [facility] 06:25:20 2454 codeine medicatio n cough Not available Not available 10/17/2021 2670 RxNorm Not Available [facility] 06:25:20 Medications Name Sig Start Date Stop [...] % 92 % 162 mm[Hg] 82 mm[Hg] [facility] [employer] 2 13:21:14 Date Recorded Body height Body temperature Heart rate Oxygen saturation Oxygen saturation in Arterial blood by Pulse oximetry Systolic blood pressure Diastolic blood pressure Provider Name and Address Organization Details Last Updated DateTime 2 157.48 cm 96.9 [degF] 90 /min 91 % 91 % 162 mm[Hg] 82 mm[Hg] [facility] [employer] 2 12:48:42 Date Recorded Body height Body temperature Heart rate Oxygen saturation Oxygen saturation in Arterial blood by Pulse oximetry Systolic blood pressure Diastolic blood pressure Provider Name and Address Organization Details Last Updated DateTime 2 157.48 cm 96.4 [degF] 106 /min 94 % 94 % 148 mm[Hg] 78 mm[Hg] [facility] 2 13:42:08 Date Recorded Body height Body temperature Heart rate Oxygen saturation Oxygen saturation in Arterial blood by Pulse oximetry Systolic blood pressure Diastolic blood pressure Provider Name and Address Organization Details Last Updated DateTime 2 157.48 cm 96.6 [degF] 83 /min 99 % 99 % 172 mm[Hg] 98 mm[Hg] [facility] 2 13:36:37 Date Recorded Body height Body temperature Heart rate Oxygen saturation Oxygen saturation in Arterial blood by Pulse oximetry Systolic blood pressure Diastolic blood pressure Provider Name and Address Organization Details Last Updated DateTime 2 157.48 cm 96.4 [degF] 100 /min 97 % 97 % 162 mm[Hg] 82 mm[Hg] [facility] 2 09:43:47 Social History Question Answer Notes LastModified by Organizat ion Details LastModified Time *Housing Stable - Safe Information not available 12/16/2021 *Employment Retired/Disabl ed Information not available 12/16/2021 *Food Adequate Information no t available 12/16/2021 * Not A Harold Information not available 12/16/2021 *Job Training/Educat ion/Literacy [...] 12/16/2021 *Primary Care Provider Yes Dr. Vargas [facility] Information not available 12/16/2021 *Other Medical Issues [...] SNOMED-CT Code Diagnosis ICD10 Code Diagnosis Note [id number] [facility] [address] [facility],[address] [place] [address] 08/26/2021 00:00:00 08/26/2021 14:18:42 [id number] [facility] [address] [facility],[address] [place] [address] 08/19/2021 00:00:00 08/19/2021 14:43:24 [id number] [facility] [address] [facility],[address] [place] [address] 09/24/2021 00:00:00 09/24/2021 13:42:39 [id number] [facility] [address] [facility],[address] [place] [address] 09/17/2021 00:00:00 09/17/2021 14:33:56 [id number] [facility] [address] [facility],[address] [place] [address] 10/01/2021 00:00:00 10/01/2021 13:55:43 [id number] [facility] [address] [facility],[address] [place] [address] 09/02/2021 00:00:00 09/02/2021 13:36:53 [id number] [facility] [address] [facility],[address] [place] [address] 10/15/2021 00:00:00 10/15/2021 10:49:59 [id number] [facility], [employer] [facility] [address] [facility],[address] [place] [address] 10/22/2021 13:32:17 10/22/2021 13:53:31 Opioid dependence 18429977 F11.20 unstable - new to care Essential hypertension 97109613 I10 unstable [id number] [facility], [employer] [facility] [address] [facility],[address] [place] [address] 11/05/2021 13:31:36 11/05/2021 14:04:00 Opioid dependence 68283113 F11.20 unstable - recent use [id number] [facility], [employer] [facility] [address] [facility],[address] [place] [address] 11/12/2021 13:32:01 11/12/2021 13:50:44 Opioid dependence 31581987 F11.20 unstable - recent use [id number] [facility], [employer] [facility] [address] [facility],[address] [place] [address] 11/19/2021 13:28:46 11/19/2021 13:50:12 Opioid dependence 14914609 F11.20 unstable - recent use [id number] [facility], [employer] [facility] [address] [facility],[address] [place] [address] 11/26/2021 13:22:00 11/26/2021 13:33:43 Opioid dependence 91811606 F11.20 unstable - recent use [id number] [facility], [employer] [facility] [address] [facility],[address] [place] [address] 12/10/2021 13:24:47 12/10/2021 13:41:04 Opioid dependence 32420752 F11.20 unstable - recent use [id number] [facility], [employer] [facility] [address] [facility],[address] [place] [address] 12/24/2021 13:20:13 12/24/2021 13:37:31 Opioid dependence 20128807 F11.20 unstable - recent use [id number] [facility], [employer] [facility] [address] [facility],[address] [place] [address] 12/31/2021 12:59:42 12/31/2021 13:20:07 Opioid dependence 20299402 F11.20 unstable - recent use Restless legs 59672547 G 25.81 unstable [id number] [facility], [employer] [facility] [address] [facility],[address] [place] [address] 01/07/2022 10:17:53 01/07/2022 10:44:51 Opioid dependence 36684546 F11.20 unstable - recent use [id number] [facility], [employer] [facility] [address] [facility],[address] [place] [address] 02/18/2022 13:27:58 02/18/2022 13:45:49 Opioid dependence 03755219 F11.20 unstable - recent use [id number] [facility], [employer] [facility] [address] [facility],[address] [place] [address] 01/21/2022 13:13:05 01/21/2022 13:28:10 Opioid dependence 77860162 F11.20 unstable - recent use [id number] [facility], [employer] [facility] [address] [facility],[address] [place] [address] 01/28/2022 13:19:31 01/28/2022 13:28:05 Opioid dependence 53015482 F11.20 unstable - recent use [id number] [facility], [employer] [facility] [address] [facility],[address] [place] [address] 02/25/2022 13:21:54 02/25/2022 13:40:25 Opioid dependence 48625528 F11.20 unstable - recent use [id number] Mary Carmen Friedman, [employer] [facility] [address] [facility],[address] [place] [address] 03/04/2022 13:13:48 03/04/2022 13:29:11 Opioid dependence 56071561 F11.20 unstable - recent use [id number] Mary Carmen Friedman, [employer] [facility] [address] [facility],[address] [place] [address] 03/11/2022 12:45:57 03/11/2022 13:10:12 Opioid dependence 87667063 F11.20 unstable - recent use [id number] Mary Carmen Friedman, [employer] [facility] [address] [facility],[address] [place] [address] 03/25/2022 13:36:46 03/25/2022 13:50:49 Opioid dependence 41725400 F11.20 unstable [id number] Mary Carmen Friedman, [employer] [facility] [address] [facility],[address] [place] [address] 04/08/2022 13:25:18 04/08/2022 13:47:59 Opioid dependence 37253272 F11.20 unstable [id number] Delma Green, [employer] [facility] [address] [facility],[address] [place] [address] 04/22/2022 09:39:24 04/22/2022 10:01:13 Opioid dependence 69445934 F11.20 UNSTABLE [id number] Dee Thompson [facility] [address] [place] [address],[address] [place] [address] 05/06/2022 11:21:43 05/06/2022 13:21:21 [id number] Dee Thompson [facility] [address] [facility],[address] [place] [address] 05/18/2022 08:54:48 05/18/2022 08:59:21 [id number] DALTON Kraus [facility] [address] [place] [address] 05/20/2022 11:29:21 05/20/2022 11:32:37 [id number] DALTON Kraus [facility] [address] [facility], [address] [facility] [place] [address] 06/16/2022 13:49:39 06/16/2022 13:54:40 Health Concerns Section Related Observation LastModified by Organization Detai ls LastModified Time None Recorded Concern Status LastModified by Organization Details LastModified Time None Recorded Advance Directives Directive None Recorded Payers Encounter Date Sequence Insurance Name Policy Number Policy Salmon Covered Member ID Salmon Member ID Guarantor Name 03/04/2022 2 [employer] (MEDICAID) Lea Vasquez [id number] eLa Vasquez 03/04/2022 1 [facility] (MEDICARE REPLACEMENT/A DVANTAGE - PPO) [id number] Lea Vasquez [id number] Lea Vasquez 03/11/2022 2 [employer] (MEDICAID) Lea Vasquez [id number] Lea Vasquez 03/11/2022 1 [facility] (MEDICARE REPLACEMENT/A DVANTAGE - PPO) [id number] Lea Vasquez [id number] Lea Vasquez 03/25/2022 2 [employer] [facility] (MEDICAID) Lea Vasquez [id number] Lea Vasquez 03/25/2022 1 [facility] (MEDICARE REPLACEMENT/A DVANTAGE - PPO) [id number] Lea Vasquez [id number] Lea Vasquez 04/08/2022 2 [employer] [facility] (MEDICAID) Lea Vasquez [id number] Lea Vasquez 04/08/2022 1 [facility] (MEDICARE REPLACEMENT/A DVANTAGE - PPO) [id number] Lea Vasquez [id number] Lea Vasquez 04/22/2022 2 [employer] [facility] (MEDICAID) Lea Vasquez [id number] Lea Vasquez 04/22/2022 1 [facility] (MEDICARE REPLACEMENT/A DVANTAGE - PPO) [id number] Lea Vasquez [id number] Lea Vasquez Notes Date Note Type Note Provider Name and Address Organization Details Recorded Time 03/04/2022 text/html This patient is here today for their follow-up MAT visit. They are being treated for OUD with buprenorphine PLEASE SEE A & P SECTION FOR FULL VISIT NOTE Mary Carmen Friedman NP [address] [place], [address], [facility] [employer] [facility] 03/04/2022 14:00:30 03/11/2022 text/html This patient is here today for their follow-up MAT visit. They are being treated for OUD with buprenorphine PLEASE SEE A & P SECTION FOR FULL VISIT NOTE Mary Carmen Friedman NP [address] [place], [address], [facility] [employer] [facility] 03/11/2022 13:32:58 03/25/2022 text/html This patient is here today for their follow-up MAT visit. They are being treated for OUD with buprenorphine PLEASE SEE A & P SECTION FOR FULL VISIT NOTE Mary Carmen Friedman NP [address] [place], [address], [facility] [employer] [facility] 03/25/2022 14:12:31 04/08/2022 text/html This patient is here today for their follow-up MAT visit. They are being treated for OUD with buprenorphine PLEASE SEE A & P SECTION FOR FULL VISIT NOTE Mary Carmen Friedman NP [address] [place], [address], [facility] [employer] [facility] 04/08/2022 13:57:35 04/22/2022 text/html This patient is here today for their follow-up MAT visit. They are being treated for OUD with buprenorphine. PLEASE SEE A & P SECTION FOR FULL VISIT NOTE Delma Green NP [address] [place], [address], [facility] [employer] [facility] 04/22/2022 10:07:31 OBGyn Episode No OBEpisode recorded.
--- OUTSIDE RECORDS SUMMARY | 2024-11-08 15:40 | XMS_ITS | Encounter Summary ---
Author Organization [facility] [place] [address] Care Team Providers Care Regional Commercial Sales Manager Name Role Phone Penny Javed APRN Primary Care Provider + Encounter Details Date Type Department Care Team (Late st Contact Info) Description 11/01/2024 Interpretation Only [facility] [address] [place] [address] Homa Welch MD [address] [place] [address] Social History Tobacco Use Types Packs/Day Years Used Date Smoking Tobacco: Never Assessed Sex and Gender Information Value Date Recorded Sex Assigned at Not on file Gender Identity Not on file Sexual Orientation Not on file documented as of this encounter Plan of Treatment Not on file documented as of this encounter Procedures Procedure Name Priority Date/Time Associated Diagnosis Comments CT CHEST WO CONTRAST (GENERIC) Routine 11/01/2024 1:34 PM EST documented in this encounter Results * CT Chest wo Contrast (Generic) (11/01/2024 1:34 PM EST) PT CLASS I RAD ADMITDTTM [id number] RAD PT RAD INFO [id number]^OLMAN ^HOMA^B RAD EXAM DESC CTCHST^CT CHEST WO CONTRAST^RIS RAD WORKSTATION ID [id number] RAD Anatomical Region Laterality Modality Chest Computed Tomogra [...] who have questions please contact the health child caregiver that requested your imaging first. ? Electronically signed by: Ricardo Lopez MD, [facility] ??([phone]), at 11/02/2024 9:30 AM Narrative 11/02/2024 9:30 [...] patients who have questions please contactthe health child caregiver that requested your imaging first. Homa Welch MD IMG CT ORDERABLES documented in this encounter Visit Diagnoses Not on filedocumented in this encounter Care Teams Regional Commercial Sales Manager Relationship Specialty Start Date End Date Penny Javed APRN PCP - General 09/09/10 documented as of this encounter
--- OUTSIDE RECORDS SUMMARY | 2024-11-08 15:40 | XMS_ITS | Continuity of Care Document ---
Author Organization [place] [facility], [facility] Address [address] [place] [address] Care Team Providers Care Raised Printer Name Role Phone [facility] OPHTH[facility]MOLOG[facility] - [place] Ophtha lmologist RACHELL FIORE Installer Inspector Final Assessment Encounter Date Assessment Date Assessment LastModified [...] - Plan: a. Order liver ultrasound at [facility]. b. Perform Hepatitis C viral load [...] with a document listing completed preventive services. [email or web address] Not available 10/06/2024 15:38:27 Plan of Treatment Reminders Order Date Submit Date Provider Last Modified By Organization Details Last Modified Time Details Appointments hospital follow up 2024 03:00P M ULISES BARKER Not available Not available Not available Follow Up 2024 01:50P M SHARON HENDERSON Not available Not available Not available Follow Up 2024 02:30P M SHARON HENDERSON Not available Not available Not available Lab CMP, serum or plasma 2023 [facility] (Registration ), [address] [place] [address] [place], [address], 10/06/2024 23:19:49 CBC w/ auto diff 2023 024 [facility] (Registration ), [address] [place] [address] [place], [address], 10/06/2024 23:05:50 hepatitis C virus RNA, quant, PCR, serum or plasma 2023 024 [email or web address] [facility] (Registration ), [address] [place] [address] [place], [address], 10/10/2024 09:29:40 lipid panel, serum 2023 024 [email or web address] [facility] (Registration ), [address] [place] [place] [address] [place], [address], 10/10/2024 09:29:20 Referral physical therapist referral - generaliz ed weakness/ deconditi oning related to cirrhosis , diabetic neuropath y and visual impairmen t. would like to work on general strengthe lynnette and balance. [address] [facility], [address] [place] [address], [address], 10/06/2024 15:55:22 Procedures None recorded. Surgeries None recorded. Imaging US, liver - known cirrhosis , assess degree of fibrosis for Hep C treatment 2023 [email or web address] [facility] - Radiology, [address] [facility], [place], [address], 10/20/2024 06:58:14 Medication Orders Glucagon (HCl) Emergency Kit 1 mg solution for injection 2023 [employer] [address], [place], [address], 10/06/2024 15:38:32 Breo Ellipta 200 mcg-25 mcg/dose powder for inhalatio n 2023 [email or web address] [employer] [address], [address], [place], [address], 11/07/2024 12:02:01 Patient TargetsNo targets recorded. Patient Instructions Encounter Date Encounter Id Patient Instructions Last Modified By Organization Details Last Modified Time 10/06/2024 [id number] Date: WedOct 06 2024 Dear Lea, Thank you for visiting us today. We appreciate your commitment to improving your health and managing your conditions effectively. Here's a summary of our discussion and the next steps for your treatment plan: - Blood Work: Complete tests for liver function, kidney function, cholesterol, and Hep C viral load. - Medications: supervisor instrument repair your Trelegy inhaler. - Ultrasound: Schedule an ultrasound of your liver at [facility] to assess the degree of cirrhosis. [...] regards, Dr. Sharon Henderson MD Family Medicine [email or web address] Not available 10/06/2024 15:38:01 Discussed and explained advance directives such as standard forms to the {{patient caregiv er patient and caregiver}}. Face to face discussion lasted for a duration of ___ minutes. Not available 10/05/2024 17:30:53 Reason for Referral Physical Therapist Referral for Muscle weakness generalized weakness/deconditioning related to cirrhosis, diabetic neuropathy and visual impairment. would like to work on general strengthening and balance. Referring Physician: Sharon Henderson, Family Medicine, Encounter Date: 10/06/2024 Results Created Date Observation Date Name Description Value Unit Range Abnormal Flag Note LastModifiedBy Organization Detail LastModifiedTime 10/07/20 24 10/07/2024 CT ABD pelvi s wo IV or oral contr ast [facility] Jeff Mchugh [id number] RADIOL OGY TRANSC RIPTIO N REPORT _ Patien t Name: FARAZ BUCKLEYERROL Kaminski MRN: Sex: : Age: [id number] F [id number] Accoun t: Access ion: Admit: StayTy pe: [id number] 2023 Mina Verde d: Order ID: Submit curtis: Rosetta Flood er: 2023 14:14 [id number] RJCAROLINA WORKMAN curtis: Techno logist : Result ed: 2023 [...] t. If you are a health care [facility] and have any questi ons regard ing this report , please contac t the number below. For patien ts who have questi ons please contac t the health care profes sional that reques curtis your imagin g first. Electr onical ly signed by: Júnior Vick MD Radiol jimmy Adams olive ([phone]), at 2023 3:51 PM INTERFACE [facility] (Lab) [address] [place] [address], [address], 10/07/2024 15:57:10 11/01/19 25 11/01/2024 xr chest tiffany ble or 1V [facility] Mark Jeff santamaria [id number] RADIOL OGY TRANSC RIPTIO N REPORT _ Patien t Name: ERROL RUTH MS MRN: Sex: : Age: [id number] F [id number] Accoun t: Access ion: Admit: StayTy pe: [id number] E Ammon d: Order ID: Submit curtis: Rosetta urena Provid er: 2024 01:40 [id number] ABBI JALLOH curtis: Techno logist : Result ed: 2024 02:03 LH 2024 02:13 _ EXAMIN ATION: XR CHEST PORTAB LE OR 1V CLINIC AL HISTOR Y: Reason for Chest: SOB Add'l Info: TECHNI QUE: 1 view of the chest . One image. COMPAR GHASSAN: Chest x-ray 12/20/19 17. FINDIN GS /IMPRE SSION: Evalua tion of right inferi or hemith orax is limite d due to overly ing metall ic leads. Trache a and mainst em bronch i are within normal limits . Accent uated cardia c silhou ette, at least partly due to techni que. Normal damaris and pulmon sea vascul ar markin gs. Bibasi lar hazy pulmon sea opacit ies. Trace right pleura l effusi on. No pneumo thorax . Normal osseou s struct ures and upper abdome n. Thank you for gail junior us partic ipate in the care of this armin t. If you are a health care [facility] and have any questi ons regard ing this report , please contac t the number below. For patien ts who have questi ons please contac t the health care [facility] that reques curtis your imagin g first. Electr onical ly signed by: Lala Patel MD Radiol jimmy schaefer ([phone]), at 025 2:13 AM INTERFACE [facility] (Lab) [address] [place] [address], [address], 11/01/2024 02:19:02 11/02/19 25 11/01/2024 EKG order jude urena 12 lead [facility] Jeff Mchugh [id number] EKG TRANSC SUKHDEEP Schaefer REPORT _ Accoun t: Access ion: Admit: StayTy pe: [id number] E/R Observ ation: Order ID: Submit curtis: Rosetta urena [facility] er: 2024 02:16 [id number] ABBI JALLOH _ [place] [id number] [facility] Test Date: 11-01 Pat Name: ABELINO RUTH MS Depart ment: [facility] ID: [id number] Room: Gender : F Techntrey emir: : 01-03 Reques curtis By: ABBI Reynoso Order Number : [id number] Charbel junior MD: Gentry Finney Measur ements Interv als [place] Rate: 104 P: 76 NV: 176 QRS: -32 QRSD: 96 T: 0 QT: 370 QTc: 486 Interp retive Statem ents Sinus tachyc ardia Left axis deviat ion Compar ed to ECG 2022 05:17: 21 Left-a xis deviat ion now presen t Sinus rhythm no longer presen t Electr onical ly Signed On 025 8:26:2 3 EST by Gentry Finney [facility] (Lab) [address] [place] [address], [address], 11/02/2024 08:28:22 11/02/19 25 11/01/2024 CT chest wo contr ast [facility] Faxon Jeff santamaria [id number] RADIOL OGY TRANSC RIPTIO N REPORT _ Patien t Name: ERROL RUTH MS MRN: Sex: : Age: [id number] F [age] Accoun t: Access ion: Admit: StayTy pe: [id number] 115 025 I Ammon d: Order ID: Submit curtis: Ordertrey ng Provid er: 2024 08:54 [id number] CLIVE BONNER curtis: Techno logist : Result ed: 2024 13:27 MM 2024 09:30 _ EXAMIN ATION: CT CHEST WO CONTRA ST CLINIC AL HISTOR Y: Shortn ess of breath , pneumo dominik TECHNI QUE: Helica l CT of the chest withou t intrav enous contra st admini strati on. Thin-s ection recons tructi ons as well as conrad l and sagitt al reform atted images were genera curtis. COMPAR GHASSAN: None FINDIN GS: Pulmon sea parenc hyma: Ill-de fined mixed attenu ation densit ies in the upper lobes, left greate r than right as well as ill-de fined ground glass densit ies in the lower lobes, left greate r than right, as well as periph eral mixed attenu ation densit ies. Airway s: No centra l endobr onchia l abnorm ality. Pleura : There are small pleura l effusi ons Lymph nodes: No lympha denopa thy. Heart and vascul ature: The heart is normal in size. No perica rdial effusi on. Hyperd ense interv entric ular septum is sugges tive of anemia . The aorta is normal in calibe r. Other medias tinal struct ures: No signif icant findin gs. Upper abdome n: Cholec ystect alfredo. There is a lipid rich right adrena l adenom a. Bones and soft tissue s: There is diffus e qualit ative osteop enia. There is anasar ca. IMPRES RONAN: 1. Small pleura l effusi ons and lung findin gs which may be second sea to atypic al pneumo dominik. There may be an underl juanis compon ent of lung edema. Anasar ca. 2. Findin gs sugges tive of anemia Thank you for gail junior us partic ipate in the care of this patien t. If you are a health care provid er and have any questi ons regard ing this report , please contac t the number below. For patien ts who have questi ons please contac t the health care profes sional that reques curtis your imagin g first. Electr onical ly signed by: Jose Lopez MD Radiol ogy Lebano n ([phone]), at 025 9:30 AM INTERFACE [facility] (Lab) [address] [place] [address], [place], [address], 11/02/2024 09:37:40 11/02/19 25 11/02/2024 nm lung venti latio n and perfu ronan* [facility] Jeff Mchugh [id number] RADIOL OGY TRANSC RIPTIO N REPORT _ Patien t Name: FARAZ BUCKLEY,ERROL Kaminski MRN: Sex: : Age: [id number] F [age] Accoun t: Access ion: Admit: StayTy pe: [id number] I Ammon d: Order ID: Submit curtis: Orderi ng Provid er: 2024 14:46 [id number] GARTH NORWOOD Comple curtis: Techno logist : Result ed: 2024 08:57 HTP 2024 11:46 _ EXAMIN ATION: NM LUNG VENTIL ATION AND PERFUS ION CLINIC AL HISTOR Y: Reason NM Lung: SOB Add'l Info: COPD, KYM TECHNI QUE: Follow ing inhala tion of 1 mCi of techne tium-9 9m PYP aeroso l, ventil ation images of the lungs were obtain ed in the anteri or, manganese heater ior, latera l and obliqu e projec tions. This was follow ed by bahman daneilsi arleneti on of 4 mCi of techne tium-9 9m macro- aggreg ated juli n. Perfus ion images of the lungs were then obtain ed in the same projec tions. COMPAR GHASSAN: Chest radiog raph and CT chest 025 FINDIN GS: There are no ventil ation or perfus ion defect s. IMPRES RONAN: No pulmon sea emboli sm. Thank you for lettin g us partic ipate in the care of this patien t. If you are a health care [facility] and have any questi ons regard ing this report , please contac t the number below. For patien ts who have questi ons please contac t the [facility] care profes sional that reques curtis your imagin g first. Electr onical ly signed by: Júnior Vick MD Radiol jimmy Adams olive ([phone]), at 025 11:46 AM [facility] (Lab) [address] [place] [address], [address], 11/02/2024 11:53:05 Result Notes None recorded. Problems Name Problem SNOMED Code Status Onset Date Resolution Date Notes Provider Name and Address Organization Details Recorded Time Complica tion due to diabetes mellitus 00702801 Active [address], [place], [address] , [facility] 4 14:41:01 Gastroes ophageal reflux disease without esophagi tis 518085382 Active [address], [place], [address] , [facility] 4 15:41:02 Sleep apnea 85866501 Active [address], [place], [address] , [facility] 4 15:41:33 Dyspnea on exertion 01816226 Active [address], [place], [address] , [facility] 4 16:02:44 Smoker 64108149 Active [address], [facility] [address] , [facility] 4 16:03:44 Legal blindnes s 03397724 Active [address], [address] , [facility] 4 16:04:00 Toenail thickene d 228617810 Active [address], [facility] [address] , [facility] 4 16:07:44 Pruritic rash 76933609 Active [address], [facility] [address] , [facility] 4 16:09:31 Retroper itoneal lymphade nopathy 218638369 Active 2023 burak MIRAMONTES RN null, [facility] 5 12:10:08 Renal failure syndrome 49811853 Active 2023 burak MIRAMONTES RN null, [facility] 5 12:10:41 Acute exacerba tion of chronic obstruct vishnu pulmonar y disease 194678184 Active [address], [place], [address] , [facility] 5 15:11:03 Acute renal insuffic iency 979989514 Active [address], [facility] [address] , [facility] 5 16:57:59 Essentia l hyperten ronan 60167097 Active 2005 [facility] 4 09:53:15 Hyperlip idemia 87283645 Active 2005 [facility] 4 10:08:20 Uncompli cated moderate persiste nt asthma 727839578 Active 2005 [facility] 4 10:24:46 Severe obesity 68037395334 104 Active 2005 [facility] 4 10:22:09 Chronic hepatiti s C 115094816 Active 2003 pos viral load not treated [facility] 4 09:47:44 Pain of right shoulder joint 79701099362 508066 Active 2014 [facility] 4 10:17:43 Neuropat hy due to type 2 diabetes mellitus 42292938554 9106 Active 2014 uncontro lled, w/neurol o comps [facility] 4 10:17:28 Idiopath ic osteoart hritis 703667188 Active 2014 DJD, knees, bilatera l [facility] 4 10:08:49 Renal disorder due to type 2 diabetes mellitus 051754568 Active 2015 Diabetic nephropa thy [facility] 4 10:21:57 Derangem ent of right knee 21166195646 942268 Completed 201505/05/2016 Problem Code: M23.91; Problem Code Type: ICD-10; Not Available [facility] 3 04:12:16 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 60417074555 9104 Active 2015 (not billable after 6) [facility] 4 10:16:21 Cocaine abuse 74748922 Active 2016 episodic [facility] 4 09:50:22 Tobacco use cessatio n educatio n Active 2016 [facility] 4 10:22:41 Gallblad mark calculus with acute cholecys titis and no obstruct ion 731783476 Completed 201612/29/2016 Problem Code: K80.00; Problem Code Type: ICD-10; Not Available [facility] 3 04:12:17 Acute asthma 714591985 Completed 201604/13/2017 Problem Code: J45.901; Problem Code Type: ICD-10; Not Available [facility] 3 04:12:17 Cellulit is 345354687 Completed 201607/16/2017 Problem Code: L03.90; Problem Code Type: ICD-10; Not Available [facility] 3 04:12:17 Atopic dermatit is 32552097 Active 2017 Kristie Peters [facility] 4 09:45:01 Impetigo 79281859 Completed 201705/03/2018 Problem Code: L01.00; Problem Code Type: ICD-10; Not Available [facility] 3 04:12:17 Screenin g mammogra phy Completed 201804/20/2019 Problem Code: Z12.31; Problem Code Type: ICD-10; Not Available [facility] 3 04:12:18 History of diabetic foot ulcer 33511885237 584563 Active 2018 Kristie Fran [facility] 4 10:01:51 Chronic obstruct vishnu pulmonar y disease 44227410 Active 2018 [facility] 4 09:48:31 Anemia 712320234 Active 2018 [facility] 4 09:39:01 Albumin level - finding 445902479 Active 2018 decrease d [facility] 4 09:37:16 Peripher al venous insuffic iency 96278766 Active 2018 Stasis ulcer [facility] 4 10:18:18 Cough 68926636 Completed 201908/22/2020 Problem Code: R05; Problem Code Type: ICD-10; Not Available [facility] 3 04:12:19 Endocrin e/metabo lic screenin g Completed 202012/28/2020 Problem Code: Z13.29; Problem Code Type: ICD-10; Not Available [facility] 3 04:12:19 Counseli ng Active 2020 Immuniza tion counseli ng [facility] 4 09:51:24 Generali zed anxiety disorder 22965781 Active 2020 [facility] 4 10:01:19 Vomiting 438755582 Completed 202006/26/2021 Problem Code: R11.10; Problem Code Type: ICD-10; Not Available [facility] 3 04:12:19 Insect bite Completed 202007/09/[address] [facility] 3 04:12:20 Cirrhosi s of liver 29379916 Active 2022 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 with possible contribu tion of CUM[place], decompen sated [facility] 4 09:49:47 Jaundice 62115581 Active 2022 [facility] 4 10:09:01 Muscle weakness 07586696 Active 2022 (general ized) [facility] 4 10:16:46 Opioid abuse 8640742 Completed 202209/28/2023 Problem Code: F11.10; Problem Code Type: ICD-10; Not Available [facility] 4 05:34:22 Lichen simplex chronicu s 45006010 Active 2022 Neuroder matitis [facility] 4 10:10:12 History of osteomye litis 544030863 Active 2022 [facility] 4 10:05:22 Opioid abuse 3390536 Completed 201807/14/2023 03/04/20 21 - Comments only - Sharon Henderson MD - offered scg for OBT but she states she plans to try to establis h tx thru [facility]. Not interest ed in Suboxone or Vivitrol ; might be interest ed in Sublocad e. Problem Code: F11.10; Problem Code Type: ICD-10; Not Available [facility] 3 04:12:22 Cholelit hiasis without obstruct ion 76785842 Completed 201512/22/2016 Problem Code: K80.20; Problem Code Type: ICD-10; Not Available [facility] 3 04:12:22 Candidia sis of vagina 64185900 Completed 201503/27/2016 Problem Code: B37.3; Problem Code Type: ICD-10; Not Available [facility] 3 04:12:23 Traumati c or non-trau matic injury 863340103 Completed 201607/14/2023 Problem Code: T14.8; Problem Code Type: ICD-10; Not Available [facility] 3 04:12:23 Disorder of teeth AND/OR supporti ng structur es 839928193 Completed 201503/17/2016 Problem Code: K08.8; Problem Code Type: ICD-10; Not Available [facility] 3 04:12:23 Uncompli cated asthma 040685972 Completed 200507/14/2023 Problem Code: J45.909; Problem Code Type: ICD-10; Not Available [facility] 3 04:12:23 Hyperten sive disorder 32427047 Completed 200507/14/[address] [facility] 3 04:12:24 Scar conditio ns and fibrosis of skin 494980170 Completed 201604/23/2017 Problem Code: L90.5; Problem Code Type: ICD-10; Not Available [facility] 3 04:12:24 Human papillom a virus infectio n 009195585 Completed 201607/14/2023 Problem Code: B97.7; Problem Code Type: ICD-10; Not Available [facility] 3 04:12:24 Morbid obesity 566230659 Completed 200507/14/[address] [facility] 3 04:12:24 Foot ulcer due to type 2 diabetes mellitus 02434655960 00 Completed 201512/22/2016 01/20/20 19 - Comments [...] E11.621; Problem Code Type: ICD-10; AMOR Rizzo - [facility] 4 09:59:50 Periapic al abscess 916391386 Completed 201403/17/2016 Problem Code: K04.7; Problem Code Type: ICD-10; Not Available [facility] 3 04:12:25 Drug abuse 98779222 Completed 200707/14/2023 Problem Code: 305.90; Problem Code Type: ICD-9; Not Available [facility] 3 04:12:25 Opioid dependen ce in [facility] n 416746720 Completed 201807/14/2023 09/26/20 19 - Comments only [...] Code Type: ICD-10; Not Available [facility] 3 04:12:25 Gynecolo gic examinat ion Completed 201602/02/2017 Problem Code: Z01.419; Problem Code Type: ICD-10; Not Available [facility] 3 04:12:26 Nodule on toe 908431622 Completed 201605/25/[address] [facility] 3 04:12:26 Pain of right knee joint 01478761987 4100 Completed 201502/02/2017 Problem Code: M25.561; Problem Code Type: ICD-10; Not Available [facility] 3 04:12:26 Candidia sis of skin 94585695 Completed 201503/27/2016 Problem Code: B37.2; Problem Code Type: ICD-10; Not Available [facility] 3 04:12:26 Dysuria 29629808 Completed 201505/07/2016 Problem Code: R30.0; Problem Code Type: ICD-10; Not Available [facility] 3 04:12:27 Retinopa thy due to type 2 diabetes mellitus 081248170 Completed 201507/14/2023 Problem Code: E11.319; Problem Code Type: ICD-10; Not Available [facility] 3 04:12:27 Infectio n of skin and/or subcutan eous tissue 14149357 Completed 202204/30/2023 Problem Code: L08.89; Problem Code Type: ICD-10; Not Available [facility] 3 04:12:27 Tobacco dependen ce caused by cigarett es 59442088194 499689 Completed 200305/25/2019 Problem Code: F17.210; Problem Code Type: ICD-10; Not Available [facility] 3 04:12:27 Opioid dependen ce 30575312 Completed 200309/04/2015 05/25/20 19 - Comments only - Alexandro Grewal - Doing well in treatmen t at [facility]. Problem Code: F11.20; Problem Code Type: ICD-10; Not Available [facility] 3 04:12:28 Asthma 508104900 Completed 200507/14/2023 Not Available [facility] 3 04:12:28 Pain of joint of knee 1721076122 Completed 201407/14/2023 Problem Code: M25.569; Problem Code Type: ICD-10; Not Available [facility] 3 04:12:28 Cellulit is of right lower limb 86649005409 887451 Completed 201805/25/2019 Problem Code: L03.115; Problem Code Type: ICD-10; Not Available [facility] 3 04:12:28 Shoulder joint pain 831294284 Completed 201407/14/2023 Problem Code: 719.41; Problem Code Type: ICD-9; Not Available [facility] 3 04:12:29 Smoker 73627752 Completed 200307/14/2023 SHARON HENDERSON MD [address], [place], [address] , [facility]. 4 16:03:44 Chronic ulcer of foot 553811776 Completed 201601/05/2017 Problem Code: L97.529; Problem Code Type: ICD-10; Not Available [facility] 3 04:12:29 Type 2 diabetes mellitus without complica tion 031521236 Completed 200307/14/2023 Problem Code: 250.00; Problem Code Type: ICD-9; MD Shailesh [address], [place], [address] , [facility] 4 14:43:16 Pain of left knee joint 57900536898 4107 Completed 201407/14/2023 Problem Code: M25.562; Problem Code Type: ICD-10; Not Available [facility] 3 04:12:30 Depressi ve disorder 77010922 Completed 200307/14/[address], [facility] [address] , [facility] 4 14:41:17 Hypergly cemia due to type 2 diabetes mellitus 01934821603 9109 Completed 200309/04/2015 Problem Code: E11.65; Problem Code Type: ICD-10; Not Available [facility] 3 04:12:30 Chest pain 73346303 Completed 201605/25/2019 Problem Code: R07.89; Problem Code Type: ICD-10; Not Available [facility] 3 04:12:31 Drug dependen ce 069063150 Completed 200307/14/2023 Problem Code: 304; Problem Code Type: ICD-9; Not Available [facility] 3 04:12:31 Cellulit is of toe of right foot [id number] 999654 Completed 201505/11/2016 Problem Code: L03.031; Problem Code Type: ICD-10; Not Available [facility] 3 04:12:31 Osteoart hritis of knee 863645818 Completed 201402/02/2017 Problem Code: M17.9; Problem Code Type: ICD-10; Not Available [facility] 3 04:12:32 History of infectio us disease 514830121 Completed 201409/04/2015 Problem Code: Z86.19; Problem Code Type: ICD-10; [facility] Tobacco user 581280238 Completed 200508/06/2015 Not Available [facility] 3 04:12:32 Viral screenin g Completed 202209/10/2023 Problem Code: Z11.52; Problem Code Type: ICD-10; Not Available [facility] 4 05:34:15 Acute upper respirat ory infectio n 60932847 Completed 202208/18/2023 Problem Code: J06.9; Problem Code Type: ICD-10; Not Available [facility] 4 05:34:15 Type 2 diabetes mellitus without complica tion 827540582 Completed 202309/01/2024 Problem Code: 250.00; Problem Code Type: ICD-9; MD Shailesh BOL[address], [facility] [address] , [facility] 14:43:16 Asthma-c hronic obstruct vishnu pulmonar y disease overlap syndrome 98656503976 555691 Active 2023 [facility], [facility] 4 09:39:21 Decompen sated cirrhosi s of liver 163241661 Active 2023 Child Bourgeois score 8/Class B as of 12/2022 [facility], [facility] 4 09:51:34 Visual impairme nt 828548576 Active 2023 [facility], [facility] 4 10:29:20 Thickene d nails 306214315 Active 2023 [facility], [facility] 4 10:22:14 Thickeni ng of skin 09098429 Completed 202309/01/[address], [facility] [address] , [facility] 4 14:43:15 Acquired hammer toes of bilatera l feet 33627161489 721540 Active 2023 [facility] 4 09:37:02 History of amputati on of right foot 92339203199 662326 Active 2023 [facility] 4 10:01:25 Combined form of senile cataract 77607511 Active 2023 [facility] 4 09:50:32 Unintent ional weight loss 624775882 Active 2022 [facility] 4 10:24:46 History of amputati on of lesser toe 430962998 Active 2022 [facility] 4 09:38:36 History of intraven ous drug abuse 84703053946 928445 Active 2007 heroin [facility] 4 09:40:14 Left ventricu lar hypertro phy 83674433 Active 2015 mild concentr ic 16 echo (nl EF) [facility] 4 09:47:08 Follicul itis 62793971 Active 2022 [facility] 4 09:52:22 Peripher al edema 477815207 Active 2014 [facility] 4 09:52:55 Mild persiste nt asthma 973706363 Active 2022 with acute exacerba tion [facility] 4 09:54:28 Family history of Alzheime r's disease 679552331 Active 2018 mother age 50, maternal grandmot her, maternal aunts and uncles; no genetic testing done [facility] 4 09:56:26 Diabetic foot ulcer 649654638 Active 2022 [facility] 4 09:59:46 History of cholecys tectomy 212840558 Active 2016 laparosc opic, 01/01 [facility] 4 10:00:55 History of human papillom a virus infectio n 33844641548 9102 Active 01/01; nl pap; neg colpo 04/03 incl ECC; neg pap 11/05; 5 yr f/u [facility] 4 10:04:56 History of opioid abuse 96222537416 9100 Active 2018 Hx of opioid abuse -- Saveda resumed suboxone 09/07 [facility] 4 10:08:01 Edentulo 370751139 Active 2015 s/p complete extr due to advanced caries 03/02 [facility] 4 10:13:37 Major depressi ve disorder 837467160 Active 2022 Major depressi on [facility] 4 10:15:28 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 [address] , [facility] 4 14:43:16 Obesity 627010415 Active [address], [facility] [address] , [facility] 4 20:58:25 Hemoglob in A1c greater than 9% indicati ng poor diabetic control 85636243060 4104 Completed 202309/01/[address], [facility] [address] , [facility] 4 14:43:16 Problem Notes None recorded. Medical Equipment None Reported. Allergies Allergen ID Allergen Name Allergen Category Reaction Reaction Severity Criticality Documentation Date Start Date Code Code System Note Provider Name and Address Organization Details Recorded Time 07861 lisinopri l medicatio n cough moderate Not available 08/27/20232009 40990 RxNorm [facility] 4 10:31:16 58156 metoprolo l succinate medicatio n other moderate Not available 08/27/20232018 78320 4 RxNorm No react ion enter ed [facility] 4 10:31:36 10484 codeine medicatio n hives moderate Not available 08/27/20232002 2670 RxNorm [facility] 4 10:31:10 Medications Name Sig Start [...] completed Not Available Not Available Not Available acetamino phen 325 mg tablet Take 2 tablets every 6 hours by oral route as needed. active Not Available Not Available No t Available prednison e 10 mg tablet Take 2 tablet twice a day x 2 days then 1 tab twice a day x 3 days then 1 tab daily active Not Available Not Available No t Available atorvasta tin 20 mg tablet Take 1 tablet by mouth once a day 10/15 completed Not Available Not Available Not Available Effexor XR 75 mg capsule,e xtended release 1CAP daily 05/15 completed Not Available Not Available Not Available clindamyc in HCl 300 mg capsule 1TAB four times daily 02/18 completed Not Available Not Available Not Available cefpodoxi me 200 mg tablet TAKE ONE TABLET BY MOUTH TWICE A DAY active Not Available Not Available No t Available azithromy fareed 250 mg tablet TAKE ONE TABLET BY MOUTH [...] Not Available Not Available No t Available sodium bicarbona te 650 mg tablet Take 1 tablet twice a day by oral route. active Not Available Not Available No t [...] 20 units 300 and above 30 units. 2024 active PA Denied and WILBERTO removed from list- per pt, using PRN after Burak discharg e 11/03/24 Not Available Not Available Not Available Prilosec [...] Stockings Dx: peripher al edema 11/04 completed [place] [facility] Not Available Not Available Not Available gabapenti n 300 mg tablet 3 cap three times daily 06/16 completed Not Available Not Available Not Available albuterol 2INH four times daily 07/31 completed Not Available Not Available Not Available Nystatin (Topical) cream apply BID 05/28 completed Not Available Not Available Not Available Nebulizer Dx: Asthma J45.40 Smoking Z71.6 2018 active [place] in [place] Not Available Not Available Not Available Humalog [...] Not Available Not Available Not Available Annmarie BlackoStar U-300 Insulin 300 unit/mL (1.5 mL) subcutane ous pen inject 200U TID 07/21 completed Not Available Not Available Not Available Breo Ellipta 200 mcg-25 mcg/dose powder for inhalatio n INHALE ONE PUFF BY MOUTH TWICE A DAY active Not Available Not Available No t Available Tresiba FlexTouch U-200 insulin 200 unit/mL (3 mL) subcutane ous pen Inject 40 units subcutan eously twice a day. 10/19 completed burak d/diana Not Available Not Available Not Available Accu-Chek [...] 1 mg/0.2 mL subcutane ous auto-inje ctor INJECT 1MG (0.2ML) BY INJECTIO N NEEDED active Not Available Not Available No t Available Trelegy Ellipta 200 mcg-62.5 mcg-25 mcg powder for inhalatio n INHALE ONE PUFF BY MOUTH EVERY DAY FOR COPD active Not Available Not Available No t Available Vitals Date Recorded Body height Body mass index (BMI) Body weight Body temperature Oxygen saturation Oxygen saturation in Arterial blood by Pulse oximetry Heart rate Systolic blood pressure Diastolic blood pressure Provider Name and Address Organization Details Last Updated DateTime 4 155.58 cm 35.5 kg/m2 29721.3 9 g 97.8 [degF] 96 % 96 % 79 /min 126 mm[Hg] 72 mm[Hg] ROSIBEL SALGADO RN [facility] 13:24:33 Social History Question Answer Notes LastModified by Organizat ion Details LastModified Time Tobacco Smoking Status Current Every Day Smoker DAVID DURAN, [facility] 11/03/2023 13:42:55 Date Of Most Recent HSA 10/06/2024 [email or web address] Information not available 10/06/2024 Would You Say That, In General, Your Health Is Poor [email or web address] Information not available 10/06/2024 Women Aged 18-50 - Would You Like To Become In The Next Year? (Female Patients Only) No [email or web address] Information not available 10/06/2024 How Often Does Anyone, Including Family, Physically Hurt You? Never [email or web address] Information not available 10/06/2024 How Often Does Anyone, Including Family, Insult Or Talk Down To You? Never [email or web address] Information no t available 10/06/2024 How Often Does Anyone, Including Family, Threaten You With Harm? Never [email or web address] Information not available 10/06/2024 How Often Does Anyone, Including Family, Scream Or Curse At You? Never [email or web address] Information not available 10/06/2024 Within The Past 12 Months, You Worried That Your Food Would Run Out Before You Got Money To Buy More. Sometimes True [email or web address] Information not available 10/06/2024 Within The Past 12 Months, The Food You Bought Just Didn't Last And You Didn't Have Money To Get More. Sometimes True [email or web address] Information not available 10/06/2024 How Hard Is It For You To Pay For The Very Basics Like Food, Housing, Medical Care, And Heating? Would You Say It Is: Very Hard Information not available 10/06/2024 In The Past 12 Months, Has Lack Of Reliable Transportation Kept You From Medical Appointments, Meetings, Work Or From Getting Things Needed For Daily Living? Yes [email or web address] Information not available 10/06/2024 What Is Your Housing Situation Today? I Have Housing. [email or web address] Information not available 10/06/2024 How Often In The Past Year Have You Used Marijuana (including Smoking, Vaping, Dabbing, Or Edibles)? Never [email or web address] Information not available 10/06/2024 How Often In The Past Year Have You Used Prescription Medications That Were Not Prescribed To You? Never [email or web address] Information not available 10/06/2024 How Often In The Past Year Have You Taken Your Own Prescription Medication More Than The Way It Was Prescribed Or For Different Reasons Than Its Intended Purpose? Never [email or web address] Information no t available 10/06/2024 How Often In The Past Year Have You Used Other Drugs (for Example, Heroin, Cocaine, Meth, Salvia, Inhalants)? Never [email or web address] Information not available 10/06/2024 Have You Ever Used IV Drugs? Yes 10 Years Ago [email or web address] Information not available 10/06/2024 What Matters Most To You? Vision, Overall Health [email or web address] Information not available 10/06/2024 During The Past Four Weeks Has Your Physical And Emotional Health Limited Your Social Activities With Family And Friends, Neighbors, Or Groups? Moderately [email or web address] Information not available 10/06/2024 During The Past Four Weeks, Was Someone Available To Help You If You Needed And Wanted Help? (For Example, If You [place] Very Nervous, Lonely, Or Blue; Got Sick And Had To Stay In Bed; Needed Someone To Talk To; Needed Help With Daily Chores; Or Needed Help Just Taking Care Of Yourself.) Yes- Quite A Bit [email or web address] Information not available 10/06/2024 During The Past Four Weeks, What Was The Hardest Physical Activity You Could Do For At Least 2 Minutes? Heavy [email or web address] Information not available 10/06/2024 Can You Get To Places Out Of Walking Distance Without Help? (For Example, Can You Travel Alone On Buses Or Taxis, Or Drive Your Own Car?) No [email or web address] Information not available 10/06/2024 Can You Go Shopping For Groceries Or Clothes Without Someone? s Help? No [email or web address] Information not available 10/06/2024 Can You Prepare Your Own Meals? No Information not available 10/06/2024 Can You Do Your Housework Without Help? Yes [email or web address] Information not available 10/06/2024 Because Of Any Health Problems, Do You Need The Help Of Another Person With Your Personal Care Needs Such As Eating, Bathing, Dressing, Or Getting Around The House? Yes [email or web address] Information not available 10/06/2024 Can You Handle Your Own Money Without Help? Yes [email or web address] Information not available 10/06/2024 Are You Having Difficulties Driving Your Car? Not Applicable- I Do Not Use A Car [email or web address] Information not available 10/06/2024 How Often During The Past Four Weeks Have You Been Bothered By Any Of The Following Problems? Falling Or Dizzy When Standing Up? Often [email or web address] Information not available 10/06/2024 Sexual Problems? Never [email or web address] Informat ion not available 10/06/2024 Trouble Eating Well? Never [email or web address] Information not available 10/06/2024 Teeth Or Denture Problems? Always [email or web address] Information not available 10/06/2024 Problems Using The Telephone? Always Can't See Phone Information not available 10/06/2024 Tiredness Or Fatigue? Always Information not available 10/06/2024 Have You Had 2 Or More Falls Or Sustained An Injury With A Fall In The Last Year? Yes [email or web address] Information not available 10/06/2024 Do You Have Difficulty With Walking Or Balance? Yes [email or web address] Information not available 10/06/2024 Do You Currently Use A Hearing Device? No [email or web address] Information not available 10/06/2024 Do You Currently Have Any Trouble With Your Vision? Yes [email or web address] Information no t available 10/06/2024 Do You Exercise For About 20 Minutes Three Or More Days A Week? No- I Usually Do Not Exercise Much [email or web address] Information not available 10/06/2024 Are There Any Safety Concerns In Your Home (see Attached CDC Pamphlet)? Yes Stairs, Cooking Information not available 10/06/2024 How Often Do You Have Trouble Taking Medicines The Way You Have Been Told To Take Them? Sometimes I Take Them As Prescribed [email or web address] Information not available 10/06/2024 How Confident Are You That You Can Control And Manage Most Of Your Health Problems? Somewhat Confident [email or web address] Information not available 10/06/2024 Do You Currently Have Any Difficulty With Your Hearing? No [email or web address] Information not available 10/06/2024 Date Of Most Recent SBINS 10/06/2024 [email or web address] Information not available 10/06/2024 What Was The Date Of Your Most Recent Tobacco Screening? 10/06/2024 [email or web address] Information not available 10/06/2024 What Is Your Current Pack Years? 30ormorepacky ears Information not available 11/03/2023 At What Age Did You Start Smoking Tobacco? 14 Information not available 11/03/2023 How Much Tobacco Do You Smoke? 1 PPW Information not available 11/03/2023 Has Tobacco Cessation Counseling Been Provided? Yes Pt Declines. [email or web address] Information not available 10/06/2024 On What Date Was Tobacco Cessation Counseling Provided? 10/06/2024 Pt Just Not Ready Yet. [email or web address] Information not available 10/06/2024 How Many Years [...] Time Mother Family history of kidney disease [email or web address] Not available 2022 03:50:23 Mother Family history of diabetes mellitus type 1 deisy. Not available 2022 03:50:26 Notes:*Problem: Mother: chichi [...] mL 4 completed ARMIDA HIRSCH MA null, [facility] 09/01/2024 18:38:23 Influenza, split virus, trivalent, PF 4 completed SHARON HENDERSON MD [address], [place], [address], [facility] 09/01/2024 16:09:15 Td (adult), 5 Lf tetanus toxoid, preservative free, adsorbed 7 completed Not Available [facility] 08/27/2023 06:21:08 Tdap 7 completed Not Available [facility] 08/27/2023 06:21:08 Novel [id number], all formulations 9 completed Not Available [facility] 08/27/2023 06:21:08 Td(adult) unspecified formulation 1 completed Not Available [facility] 08/27/2023 06:21:08 Influenza, split virus, trivalent, preservative 6 completed Not Available [facility] 08/27/2023 06:21:08 Influenza, split virus, quadrivalent, PF 2 completed Not Available [facility] 08/27/2023 06:21:08 Influenza, split virus, quadrivalent, PF 3 completed Not Available [facility] 08/27/2023 06:21:08 Influenza, split virus, quadrivalent, preservative 8 completed Not Available [facility] 08/27/2023 06:21:09 COVID-19, mRNA, LNP-S, PF, 100 mcg/0.5mL dose or 50 mcg/0.25mL dose 2 completed Not Available [facility] 08/27/2023 06:21:09 COVID-19 vaccine, vector-nr, rS-Ad26, PF, 0.5 mL 1 completed Not Available [facility] 08/27/2023 06:21:09 COVID-19, mRNA, LNP-S, bivalent, PF, 30 mcg/0.3 mL dose 3 completed Not Available [facility] 08/27/2023 06:21:09 pneumococcal polysaccharide PPV23 0 completed Not Available [facility] 08/27/2023 06:21:09 influenza, unspecified formulation 9 completed Not Available [facility] 08/27/2023 06:21:09 influenza, unspecified formulation 8 completed Not Available [facility] 08/27/2023 06:21:09 influenza, unspecified formulation 7 completed Not Available [facility] 08/27/2023 06:21:09 Influenza, split virus, quadrivalent, PF 3 completed Not Available [facility] 10/29/2023 05:31:09 Pneumococcal conjugate PCV20, polysaccharide KOS033 conjugate, adjuvant, PF 3 completed Not Available [facility] 10/29/2023 05:31:11 Past Encounters Encounter ID Performer Location Encounter Start Date Encounter Closed Date Diagnosis/Indication Diagnosis SNOMED-CT Code Diagnosis ICD10 Code Diagnosis Note [id number] ROSIBEL SALGADO RN [address] [address] 10/06/2024 12:53:21 10/06/2024 14:03:34 Adult health examination 516337853 Z00.00 Muscle weakness 75710979 M62.81 Decompensa curtis cirrhosis of liver 638749754 K74.60 See above. No evidence of ascites, varices or jaundice. Hyperlipidemia 94873474 E78.5 Chronic hepatitis C 1283 51333 B18.2 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 3284340206 1089695 J44.9 Recommende d switch from Breo to Trelegy for LABA/LAMA coverage as well as ICS. 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 31579442 E11.8 Health Concerns Section Related Observation LastModified by Organization Detai ls LastModified Time None Recorded Concern Status LastModified by Organization Details LastModified Time None Recorded Payers Encounter Date Sequence Insurance Name Policy Number Policy Salmon Covered Member ID Salmon Member ID Guarantor Name 10/06/2024 2 [facility] (MEDICAID) Lea Miramontes [id number] Lea Miramonets 10/06/2024 1 MEDICARE-[place] - PART A - [facility]-REPLACED BY [facility] (MEDICARE) Lea Miramontes [id number] Lea Miramontes Notes Date Note Type Note Provider Name [...] She is open to working with the [facility] medical case manager Chari whom she met at the beginning of today's visit for the first time. Lea notes that her partner has not initiated Hepatitis C treatment, but states this is not currently a concern. She mentions that the medication affects intimacy and adds that her partner is almost 60 years old. ROSIBEL SALGADO RN [facility], [place] - [facility]. 10/06/2024 16:21:16 OBGyn Episode No OBEpisode recorded.
--- OUTSIDE RECORDS SUMMARY | 2024-11-08 15:40 | XMS_ITS | Continuity of Care Document ---
Author Organization [facility] Talk Network [facility] Address [address] [place] [address] Care Team Providers Care Magneto Specialist Name Role Phone [facility] OPHTHALMOLOGY [facility] Ophtha lmologist RACHELL FIORE Fish Fryer [phone] Assessment No assessment recorded. Plan of Treatment [...] Not available Not available Not available Lab None recorded. Referral None recorded. Procedures None recorded. Surgeries None recorded. Imaging None recorded. Medication Orders None recorded. Patient TargetsNo targets recorded. Patient InstructionsNo instructions recorded. Reason for Referral None Reported. Results Created Date Observation Date Name Description Value Unit Range Abnormal Flag Note LastModifiedBy Organization Detail LastModifiedTime 10/07/2010/07/2024 CT ABD pelvi s wo IV or oral contr ast [facility] RADIOL OGY Jeff Mchugh [id number] RADIOL OGY TRANSC RIPTIO N REPORT _ Luis t Name: FARAZ BUCKLEYERROL MRN: Sex: : Age: [id number] F [id number] Accoun t: Access ion: Admit: StayTy pe: [id number] 2023 E Ordere d: Order ID: Submit curtis: Rosetta urena Provid er: 2023 14:14 [id number] CAROLINA MCINTOSH curtis: Techno logist : Result [...] t. If you are a health care [facility] er and have any questi ons regard ing this report , please contac t the number below. For patien ts who have questi ons please contac t the health care profes sional that reques curtis your imagin g first. Electr onical ly signed by: Júnior Vick MD Radiol ogcourtney schaefer ([phone]), at 2023 3:51 PM INTERFACE [facility] (Lab) [address] [place] [address], [place], [address], 10/07/2024 15:57:10 11/01/19 25 11/01/2024 xr chest tiffany ble or 1V [facility] RADIOL OGY Mark Jeff santamaria [id number] RADIOL OGY TRANSC RIPTIO N REPORT _ Patien t Name: ERROL RUTH MS MRN: Sex: : Age: [id number] F [age] Accoun t: Access ion: Admit: StayTy pe: [id number] 025 E Ordere d: Order ID: Submit curtis: Orderi ng Provid er: 2024 01:40 [id number] ABBI JALLOH curtis: Techno logist : Result [...] and upper abdome n. Thank you for lettabel g us partic ipate in the care of this patien t. If you are a health care [facility] er and have any questi ons regard ing this report , please contac t the number below. For patien ts who have questi ons please contac t the [facility] that reques curtis your imagin g first. Electr onical ly signed by: Lala Patel MD Radiol jimmy schaefer ([phone]), at 025 2:13 AM INTERFACE [facility] (Lab) [address] [place] [address], [id number], 11/01/2024 02:19:02 11/02/19 25 11/01/2024 EKG order jude urena 12 [facility] Jeff santamaria [address] EKG TRANSC RIPTIO N REPORT _ Accoun t: Access ion: Admit: StayTy pe: [id number] 025 E/R Observ ation: Order ID: Submit curtis: Rosetta urena [facility] er: 2024 02:16 [id number] ABBI JALLOH _ [place] [id number] [facility] Test Date: 11-01 Pat Name: ABELINO RUTH MS Depart ment: Burak eugene ID: [id number] Room: Gender : F Techni emir: : 01-03 Reques curtis By: ABBI Reynoso Order Number : [id number] Charbel junior MD: Gentry Finney Measur ements Interv als Bryan Rate: 104 P: 76 GA: 176 QRS: -32 QRSD: 96 T: 0 QT: 370 QTc: 486 Interp retive Statem ents Sinus tachyc ardia Left axis deviat ion Compar ed to ECG 2022 05:17: 21 Left-a xis deviat ion now presen t Sinus rhythm no longer presen t Electr onical ly Signed On 025 8:26:2 3 EST by Gentry Finney INTERFACE [facility] (Lab) [address] [place] [address], [address], 11/02/2024 08:28:22 11/02/19 25 11/01/2024 CT chest wo contr [facility] Jeff Mchugh [id number] RADIOL OGY TRANSC SUKHDEEP N REPORT _ Patimichael t Name: FARAZ BUCKLEY,ERROL BYERS B MRN: Sex: : Age: [id number] F [age] Accoun t: Access ion: Admit: StayTy pe: [id number] 115 025 I Ordere d: Order ID: Submit curtis: Ordertrey ng Provid er: 2024 08:54 [id number] CLIVE BONNER curtis: Techno logist : Result [...] tive of anemia Thank you for gail g us partic ipate in the care of this patien t. If you are a health care provid er and have any questi ons regard ing this report , please contac t the number below. For luis ts who have questi ons please contac t the health care profjenaro jiménez that reques curtis your imagin g first. Electr onical ly signed by: Jose Lopez MD Radiol ogcourtney [place] n ([phone]), at 025 9:30 AM INTERFACE [facility] (Lab) [address] [place] [address], [address], 11/02/2024 09:37:40 11/02/19 25 11/02/2024 nm lung venti latio n and perfu ronan* [facility] [place] Jeff santamaria [id number] RADIOL OGY TRANSC RIPTIO N REPORT _ Luis t Name: FARAZ BUCKLEY,ERROL BYERS B MRN: Sex: : Age: [id number] F [age] Accoun t: Access ion: Admit: StayTy pe: [id number] 115 025 I Ammon d: Order ID: Submit curtis: Ordertrey ng Remigio er: 2024 14:46 [id number] GARTH NORWOOD Comple curtis: Techno logist : [...] were obtain ed in the anteri or, casino floorperson ior, latera l and obliqu e projec tions. This was follow ed by intrav tereso admini strati on of 4 mCi of techne tium-9 9m macro- aggreg ated albumi n. Perfus ion images of the lungs [...] t. If you are a health care [facility] er and have any questi ons regard ing this report , please contac t the number below. For patien ts who have questi ons please contac t the health care profes sional that reques curtis your imagin g first. Electr onical ly signed by: Júnior Vick MD Radiol jimmy [place] ([phone]), at 025 11:46 AM INTERFACE [facility] (Lab) [address] [place] [address], [address], 11/02/2024 11:53:05 Result Notes None recorded. Problems Name Problem SNOMED Code Status Onset Date Resolution Date Notes Provider Name and Address Organization Details Recorded Time Complica tion due to diabetes mellitus 30981978 Active [address], [place], [address] , [facility] 4 14:41:01 Gastroes ophageal reflux disease without esophagi tis 069202784 Active [address], [place], [address] , [facility]. 4 15:41:02 Sleep apnea 79102457 Active [address], [facility] [address] , [facility] 4 15:41:33 Dyspnea on exertion 80723860 Active [address], [address] 4 16:02:44 Smoker 20055649 Active [address], [place] [address] , [facility] 4 16:03:44 Legal blindnes s 88472642 Active [address], [address] 16:04:00 Toenail thickene d 683573833 Active [address], [place] [address] , [facility] 4 16:07:44 Pruritic rash 69392625 Active [address], [address] 4 16:09:31 Retroper itoneal lymphade nopathy 039720444 Active 2023 burak MIRAMONTES RN null, [facility] 5 12:10:08 Renal failure syndrome 62660299 Active 2023 burak MIRAMONTES RN null, [facility] 5 12:10:41 Acute exacerba tion of chronic obstruct vishnu pulmonar y disease 500387248 Active [address], [facility] [address] , [facility] 5 15:11:03 Acute renal insuffic iency 949570923 Active 2024 SHARON HENDERSON MD [address], [place], [address] , [facility] 5 16:57:59 [facility]ia l hyperten ronan 42743994 Active 2005 [facility] 4 09:53:15 Hyperlip idemia 68818740 Active 2005 [facility] 4 10:08:20 Uncompli cated moderate persiste nt asthma 270214616 Active 2005 [facility] 4 10:24:46 Severe obesity 30961519080 104 Active 2005 [facility] 4 10:22:09 Chronic hepatiti s C 500125717 Active 2003 pos viral load not treated [facility] 4 09:47:44 Pain of right shoulder joint 93753237275 673917 Active 2014 [facility] 4 10:17:43 Neuropat hy due to type 2 diabetes mellitus 87663387437 9106 Active 2014 uncontro lled, w/neurol o comps [facility] 4 10:17:28 Idiopath ic osteoart hritis 494244735 Active 2014 DJD, knees, bilatera l [facility] 4 10:08:49 Renal disorder due to type 2 diabetes mellitus 859555414 Active 2015 Diabetic nephropa thy [facility] 4 10:21:57 Derangem ent of right knee 65753329742 078920 Completed 201505/05/2016 Problem Code: M23.91; Problem Code Type: ICD-10; Not Available [facility] 3 04:12:16 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 44072350087 9104 Active 2015 (not billable after 6) Kristie rivera, [facility] 4 10:16:21 Cocaine abuse 60831535 Active 2016 episodic Kristie rivera, [facility] 4 09:50:22 Tobacco use cessatio n educatio n Active 2016 [place] [facility] 4 10:22:41 Gallblad mark calculus with acute cholecys titis and no obstruct ion 386407722 Completed 201612/29/2016 Problem Code: K80.00; Problem Code Type: ICD-10; Not Available [facility] 3 04:12:17 Acute asthma 416176541 Completed 201604/13/2017 Problem Code: J45.901; Problem Code Type: ICD-10; Not Available [facility] 3 04:12:17 Cellulit is 775747690 Completed 201607/16/2017 Problem Code: L03.90; Problem Code Type: ICD-10; Not Available [facility] 3 04:12:17 Atopic dermatit is 41361551 Active 2017 Kristie rivera, [facility] 4 09:45:01 Impetigo 77049114 Completed 201705/03/2018 Problem Code: L01.00; Problem Code Type: ICD-10; Not Available [facility] 3 04:12:17 Screenin g mammogra phy Completed 201804/20/2019 Problem Code: Z12.31; Problem Code Type: ICD-10; Not Available [facility] 3 04:12:18 History of diabetic foot ulcer 63566588218 585574 Active 2018 [facility] 4 10:01:51 Chronic obstruct vishnu pulmonar y disease 03558849 Active 2018 Asthma with COPD [facility] 4 09:48:31 Anemia 085503592 Active 2018 [facility] 4 09:39:01 Albumin level - finding 036445233 Active 2018 decrease d [facility] 4 09:37:16 Peripher al venous insuffic iency 98672207 Active 2018 Stasis ulcer [facility] 4 10:18:18 Cough 03566885 Completed 201908/22/2020 Problem Code: R05; Problem Code Type: ICD-10; Not Available [facility] 3 04:12:19 Endocrin e/metabo lic screenin g Completed 202012/28/2020 Problem Code: Z13.29; Problem Code Type: ICD-10; Not Available [facility] 3 04:12:19 Counseli ng Active 2020 Immuniza tion counseli ng [facility] 4 09:51:24 Generali zed anxiety disorder 41812579 Active 2020 [facility] 4 10:01:19 Vomiting 702541609 Completed 202006/26/2021 Problem Code: R11.10; Problem Code Type: ICD-10; Not Available [facility] 3 04:12:19 Insect bite Completed 202007/09/2021 Not Available [facility] 3 04:12:20 Cirrhosi s of liver 82723989 Active 2022 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 with possible contribu tion of [place], decompen [facility]ated [facility] 4 09:49:47 Jaundice 31661856 Active 2022 [facility] 4 10:09:01 Muscle weakness 90694889 Active 2022 (general ized) [facility] 4 10:16:46 Opioid abuse 7025102 Completed 202209/28/2023 Problem Code: F11.10; Problem Code Type: ICD-10; Not Available [facility] 4 05:34:22 Lichen simplex chronicu s 37996040 Active 2022 Neuroder matitis [facility] 4 10:10:12 History of osteomye litis 557630635 Active 2022 [facility] 4 10:05:22 Opioid abuse 3326583 Completed 201807/14/2023 03/04/20 21 - Comments only - Sharon Henderson MD - offered scg for OBT but she states she plans to try to establis h tx thru [facility]. Not interest ed in Suboxone or Vivitrol ; might be interest ed in Sublocad e. Problem Code: F11.10; Problem Code Type: ICD-10; Not Available [facility] 3 04:12:22 Cholelit hiasis without obstruct ion 45634603 Completed 201512/22/2016 Problem Code: K80.20; Problem Code Type: ICD-10; Not Available [facility] 3 04:12:22 Candidia sis of vagina 18346839 Completed 201503/27/2016 Problem Code: B37.3; Problem Code Type: ICD-10; Not Available [facility] 3 04:12:23 Traumati c or non-trau matic injury 612543601 Completed 201607/14/2023 Problem Code: T14.8; Problem Code Type: ICD-10; Not Available [facility] 3 04:12:23 Disorder of teeth AND/OR supporti ng [email or web address]ur es 825077380 Completed 201503/17/2016 Problem Code: K08.8; Problem Code Type: ICD-10; Not Available [facility] 3 04:12:23 Uncompli cated asthma 855594469 Completed 200507/14/2023 Problem Code: J45.909; Problem Code Type: ICD-10; Not Available [facility] 3 04:12:23 Hyperten sive disorder 18962269 Completed 200507/14/2023 Not Available [facility] 3 04:12:24 Scar conditio ns and fibrosis of skin 966946640 Completed 201604/23/2017 Problem Code: L90.5; Problem Code Type: ICD-10; Not Available [facility] 3 04:12:24 Human papillom a virus infectio n 458433169 Completed 201607/14/2023 Problem Code: B97.7; Problem Code Type: ICD-10; Not Available [facility] 3 04:12:24 Morbid obesity 660055066 Completed 200507/14/2023 Not Available [facility] 3 04:12:24 Foot ulcer due to type 2 diabetes mellitus 05888427502 00 Completed 201512/22/2016 01/20/20 19 - Comments [...] Problem Code Type: ICD-10; AMOR Rizzo - [facility] 4 09:59:50 Periapic al abscess 094366919 Completed 201403/17/2016 Problem Code: K04.7; Problem Code Type: ICD-10; Not Available [facility] 3 04:12:25 Drug abuse 00864507 Completed 200707/14/2023 Problem Code: 305.90; Problem Code Type: ICD-9; Not Available [facility] 3 04:12:25 Opioid dependen ce in [facility] n 330654991 Completed 201807/14/2023 09/26/20 19 - Comments only [...] Code Type: ICD-10; Not Available [facility] 3 04:12:25 Gynecolo gic examinat ion Completed 201602/02/2017 Problem Code: Z01.419; Problem Code Type: ICD-10; Not Available [facility] 3 04:12:26 Nodule on toe 009317822 Completed 201605/25/2019 Not Available [facility] 3 04:12:26 Pain of right knee joint 57225688697 4100 Completed 201502/02/2017 Problem Code: M25.561; Problem Code Type: ICD-10; Not Available [facility] 3 04:12:26 Candidia sis of skin 24752568 Completed 201503/27/2016 Problem Code: B37.2; Problem Code Type: ICD-10; Not Available [facility] 3 04:12:26 Dysuria 93750182 Completed 201505/07/2016 Problem Code: R30.0; Problem Code Type: ICD-10; Not Available [facility] 3 04:12:27 Retinopa thy due to type 2 diabetes mellitus 564291361 Completed 201507/14/2023 Problem Code: E11.319; Problem Code Type: ICD-10; Not Available [facility] 3 04:12:27 Infectio n of skin and/or subcutan eous tissue 84314262 Completed 202204/30/2023 Problem Code: L08.89; Problem Code Type: ICD-10; Not Available [facility] 3 04:12:27 Tobacco dependen ce caused by cigarett es 53134290020 507676 Completed 200305/25/2019 Problem Code: F17.210; Problem Code Type: ICD-10; Not Available [facility] 3 04:12:27 Opioid dependen ce 61428159 Completed 200309/04/2015 05/25/20 19 - Comments only - Alexandro Grewal - Doing well in treatmen t at [facility]. Problem Code: F11.20; Problem Code Type: ICD-10; Not Available [facility] 3 04:12:28 Asthma 845869806 Completed 200507/14/2023 Not Available [facility] 3 04:12:28 Pain of joint of knee 0321217691 Completed 201407/14/2023 Problem Code: M25.569; Problem Code Type: ICD-10; Not Available [facility] 3 04:12:28 Cellulit is of right lower limb 34493990844 416559 Completed 201805/25/2019 Problem Code: L03.115; Problem Code Type: ICD-10; Not Available [facility] 3 04:12:28 Shoulder joint pain 876528710 Completed 201407/14/2023 Problem Code: 719.41; Problem Code Type: ICD-9; Not Available [facility] 3 04:12:29 Smoker 09473844 Completed 200307/14/2023 SHARON HENDERSON MD [address], [place], [address] , [facility]. 4 16:03:44 Chronic ulcer of foot 819879523 Completed 201601/05/2017 Problem Code: L97.529; Problem Code Type: ICD-10; Not Available [facility] 3 04:12:29 Type 2 diabetes mellitus without complica tion 988007878 Completed 200307/14/2023 Problem Code: 250.00; Problem Code Type: ICD-9; MD Shailesh [address], [place], [address] , [facility] 4 14:43:16 Pain of left knee joint 31837606924 4107 Completed 201407/14/2023 Problem Code: M25.562; Problem Code Type: ICD-10; Not Available [facility] 3 04:12:30 Depressi ve disorder 94179250 Completed 200307/14/[address], [facility] [address] , [facility] 4 14:41:17 Hypergly cemia due to type 2 diabetes mellitus 56223734950 9109 Completed 200309/04/2015 Problem Code: E11.65; Problem Code Type: ICD-10; Not Available [facility] 3 04:12:30 Chest pain 14190968 Completed 201605/25/2019 Problem Code: R07.89; Problem Code Type: ICD-10; Not Available [facility] 3 04:12:31 Drug dependen ce 968421829 Completed 200307/14/2023 Problem Code: 304; Problem Code Type: ICD-9; Not Available [facility] 3 04:12:31 Cellulit is of toe of right foot 48502355870 390535 Completed 201505/11/2016 Problem Code: L03.031; Problem Code Type: ICD-10; Not Available [facility] 3 04:12:31 Osteoart hritis of knee 712047489 Completed 201402/02/2017 Problem Code: M17.9; Problem Code Type: ICD-10; Not Available [facility] 3 04:12:32 History of infectio us disease 008302213 Completed 201409/04/2015 Problem Code: Z86.19; Problem Code Type: ICD-10; Kristie Peters [facility] 4 10:05:01 Tobacco user 331985068 Completed 200508/06/2015 Not Available [facility] 3 04:12:32 Viral screenin g Completed 202209/10/2023 Problem Code: Z11.52; Problem Code Type: ICD-10; Not Available [facility] 4 05:34:15 Acute upper respirat ory infectio n 42760223 Completed 202208/18/2023 Problem Code: J06.9; Problem Code Type: ICD-10; Not Available [facility] 4 05:34:15 Type 2 diabetes mellitus without complica tion 273380998 Completed 202309/01/2024 Problem Code: 250.00; Problem Code Type: ICD-9; SHARON HENDERSON MD [address], [place], [address] [facility] 4 14:43:16 Asthma-c hronic obstruct vishnu pulmonar y disease overlap syndrome 44615768717 423012 [facility] 2023 [facility] 4 09:39:21 Decompen sated cirrhosi s of liver 881252822 Active 2023 Child Bourgeois score 8/Class B as of 12/2022 [facility] 4 09:51:34 Visual impairme nt 187238264 Active 2023 [facility] 4 10:29:20 Thickene d nails 782656210 Active 2023 [facility] 4 10:22:14 Thickeni ng of skin 38248136 Completed 202309/01/2024 SHARON HENDERSON MD [address], [place], [address] , [facility] 4 14:43:15 Acquired hammer toes of bilatera l feet 93322658547 883819 Active 2023 [facility] 4 09:37:02 History of amputati on of right foot 47367767911 054255 Active 2023 [facility] 4 10:01:25 Combined form of senile cataract 53947003 Active 2023 [facility] 4 09:50:32 Unintent ional weight loss 859601499 Active 2022 [facility] 4 10:24:46 History of amputati on of lesser toe 980264969 Active 2022 [facility] 4 09:38:36 History of intraven ous drug abuse 80990873517 517058 Active 2007 heroin [facility] 4 09:40:14 Left ventricu lar hypertro phy 17482023 Active 2015 mild concentr ic 3/16 echo (nl EF) [facility] 4 09:47:08 Follicul itis 50488405 Active 2022 [facility] 4 09:52:22 Peripher al edema 021003718 Active 2014 [facility] 4 09:52:55 Mild persiste nt asthma 284402749 Active 2022 with acute exacerba tion [facility] 4 09:54:28 Family history of Alzheime r's disease 810648682 Active 2018 mother age 50, maternal grandmot her, maternal aunts and uncles; no genetic testing done [facility] 4 09:56:26 Diabetic foot ulcer 513818833 Active 2022 [facility] 4 09:59:46 History of cholecys tectomy 883215906 Active 2016 laparosc opic, 01/01 [facility] 4 10:00:55 History of human papillom a virus infectio n 16404631914 9102 Active 01/01; nl pap; neg colpo 04/03 incl ECC; neg pap 11/05; 5 yr f/u [facility] 4 10:04:56 History of opioid abuse 30806355086 9100 Active 2018 Hx of opioid abuse -- [facility] resumed suboxone 09/07 [facility] 4 10:08:01 Juvenal 469744771 Active 2015 s/p complete extr due to advanced caries 03/02 [facility] 4 10:13:37 Major depressi ve disorder 568145321 Active 2022 Major depressi on [facility] 4 10:15:28 Traumati c partial amputati on of right great toe Active 2018 initial encounte r [facility] 4 10:23:54 Stasis dermatit is 43725146 Active 2021 Venous stasis dermatit is [facility] 4 10:30:44 Diabetes mellitus 51922453 Completed 202309/01/[address], [place], [address] , [facility] 4 14:43:16 Type 2 diabetes mellitus 87338895 Completed 202309/01/[address], [facility] [address] , [facility] 4 14:43:16 Obesity 294082673 Active [address], [facility] [address] , [facility] 20:58:25 Hemoglob in A1c greater than 9% indicati ng poor diabetic control 19091417706 4104 Completed 202309/01/[address], [facility] [address] , [facility] 14:43:16 Problem Notes None recorded. Medical Equipment None Reported. Allergies Allergen ID Allergen Name Allergen Category Reaction Reaction Severity Criticality Documentation Date Start Date Code Code System Note Provider Name and Address Organization Details Recorded Time 01270 lisinopri l medicatio n cough moderate Not available 08/27/20232009 36273 RxNorm [facility] 4 10:31:16 98045 metoprolo l succinate medicatio n other moderate Not available 08/27/20232018 92585 4 RxNorm No react ion enter ed [facility] 4 10:31:36 99352 codeine medicatio n hives moderate Not available 08/27/20232002 2670 RxNorm [facility] 4 10:31:10 Medications Name Sig Start Date [...] Stockings Dx: peripher al edema 11/04 completed [place] [facility] Not Available Not Available Not Available gabapenti n 300 mg tablet 3 cap three times daily 06/16 completed Not Available Not Available Not Available albuterol 2INH four times daily 07/31 completed Not Available Not Available Not Available Nystatin (Topical) cream apply BID 05/28 completed Not Available Not Available Not Available Nebulizer Dx: Asthma J45.40 Smoking Z71.6 2018 active [facility] in [place] Not Available Not Available Not Available Humalog [...] eously twice a day. 10/19 completed burak d/c Not Available Not [...] Available Not Available No t Available Vitals None Recorded Social History Question Answer Notes LastModified by Organizat ion Details LastModified Time Tobacco Smoking Status Current Every Day Smoker SURJIT KITCHEN LPN null, [place] - [facility]. 11/03/2023 13:42:55 Date Of Most Recent HSA 10/06/2024 [email or web address] Information not available 10/06/2024 Would You Say That, In General, Your Health Is Poor [email or web address] Information not available 10/06/2024 Women Aged 18-50 - Would You Like To Become In The Next Year? (Female Patients Only) No [email or web address] Information not available 10/06/2024 How Often Does Anyone, Including Family, Physically Hurt You? Never [email or web address] Information not available 10/06/2024 How Often Does Anyone, Including Family, Insult Or Talk Down To You? Never [email or web address] Information no t available 10/06/2024 How Often Does Anyone, Including Family, Threaten You With Harm? Never [email or web address] Information not available 10/06/2024 How Often Does Anyone, Including Family, Scream Or Curse At You? Never [email or web address] Information not available 10/06/2024 Within The Past 12 Months, You Worried That Your Food Would Run Out Before You Got Money To Buy More. Sometimes True [email or web address] Information not available 10/06/2024 Within The Past 12 Months, The Food You Bought Just Didn't Last And You Didn't Have Money To Get More. Sometimes True [email or web address] Information not available 10/06/2024 How Hard Is It For You To Pay For The Very Basics Like Food, Housing, Medical Care, And Heating? Would You Say It Is: Very Hard Information not available 10/06/2024 In The Past 12 Months, Has Lack Of Reliable Transportation Kept You From Medical Appointments, Meetings, Work Or From Getting Things Needed For Daily Living? Yes [email or web address] Information not available 10/06/2024 What Is Your Housing Situation Today? I Have Housing. [email or web address] Information not available 10/06/2024 How Often In The Past Year Have You Used Marijuana (including Smoking, Vaping, Dabbing, Or Edibles)? Never [email or web address] Information not available 10/06/2024 How Often In The Past Year Have You Used Prescription Medications That Were Not Prescribed To You? Never Information not available 10/06/2024 How Often In The Past Year Have You Taken Your Own Prescription Medication More Than The Way It Was Prescribed Or For Different Reasons Than Its Intended Purpose? Never [email or web address] Information no t available 10/06/2024 How Often In The Past Year Have You Used Other Drugs (for Example, Heroin, Cocaine, Meth, Salvia, Inhalants)? Never [email or web address] Information not available 10/06/2024 Have You Ever Used IV Drugs? Yes 10 Years Ago [email or web address] Information not available 10/06/2024 What Matters Most To You? Vision, Overall Health [email or web address] Information not available 10/06/2024 During The Past Four Weeks Has Your Physical And Emotional Health Limited Your Social Activities With Family And Friends, Neighbors, Or Groups? Moderately [email or web address] Information not available 10/06/2024 During The Past Four Weeks, Was Someone Available To Help You If You Needed And Wanted Help? (For Example, If You [place] Very Nervous, Lonely, Or Blue; Got Sick And Had To Stay In Bed; Needed Someone To Talk To; Needed Help With Daily Chores; Or Needed Help Just Taking Care Of Yourself.) Yes- Quite A Bit [email or web address] Information not available 10/06/2024 During The Past Four Weeks, What Was The Hardest Physical Activity You Could Do For At Least 2 Minutes? Heavy [email or web address] Information not available 10/06/2024 Can You Get To Places Out Of Walking Distance Without Help? (For Example, Can You Travel Alone On Buses Or Taxis, Or Drive Your Own Car?) No [email or web address] Information not available 10/06/2024 Can You Go Shopping For Groceries Or Clothes Without Someone? s Help? No [email or web address] Information not available 10/06/2024 Can You Prepare Your Own Meals? No [email or web address] Information not available 10/06/2024 Can You Do Your Housework Without Help? Yes [email or web address] Information not available 10/06/2024 Because Of Any Health Problems, Do You Need The Help Of Another Person With Your Personal Care Needs Such As Eating, Bathing, Dressing, Or Getting Around The House? Yes Information not available 10/06/2024 Can You Handle Your Own Money Without Help? Yes [email or web address] Information not available 10/06/2024 Are You Having Difficulties Driving Your Car? Not Applicable- I Do Not Use A Car [email or web address] Information not available 10/06/2024 How Often During The Past Four Weeks Have You Been Bothered By Any Of The Following Problems? Falling Or Dizzy When Standing Up? Often [email or web address] Information not available 10/06/2024 Sexual Problems? Never Informat ion not available 10/06/2024 Trouble Eating Well? Never [email or web address] Information not available 10/06/2024 Teeth Or Denture Problems? Always [email or web address] Information not available 10/06/2024 Problems Using The Telephone? Always Can't See Phone [email or web address] Information not available 10/06/2024 Tiredness Or Fatigue? Always [email or web address] Information not available 10/06/2024 Have You Had 2 Or More Falls Or Sustained An Injury With A Fall In The Last Year? Yes [email or web address] Information not available 10/06/2024 Do You Have Difficulty With Walking Or Balance? Yes [email or web address] Information not available 10/06/2024 Do You Currently Use A Hearing Device? No [email or web address] Information not available 10/06/2024 Do You Currently Have Any Trouble With Your Vision? Yes [email or web address] Information no t available 10/06/2024 Do You Exercise For About 20 Minutes Three Or More Days A Week? No- I Usually Do Not Exercise Much [email or web address] Information not available 10/06/2024 Are There Any Safety Concerns In Your Home (see Attached [facility] Pamphlet)? Yes Stairs, Cooking Information not available 10/06/2024 How Often Do You Have Trouble Taking Medicines The Way You Have Been Told To Take Them? Sometimes I Take Them As Prescribed [email or web address] Information not available 10/06/2024 How Confident Are You That You Can Control And Manage Most Of Your Health Problems? Somewhat Confident [email or web address] Information not available 10/06/2024 Do You Currently Have Any Difficulty With Your Hearing? No [email or web address] Information not available 10/06/2024 Date Of Most Recent SBINS 10/06/2024 Information not available 10/06/2024 What Was The Date Of Your Most Recent Tobacco Screening? 10/06/2024 [email or web address] Information not available 10/06/2024 What Is Your Current Pack Years? 30ormorepacky ears Information not available 11/03/2023 At What Age Did You Start Smoking Tobacco? 14 Information not available 11/03/2023 How Much Tobacco Do You Smoke? 1 PPW Information not available 11/03/2023 Has Tobacco Cessation Counseling Been Provided? Yes Pt Declines. [email or web address] Information not available 10/06/2024 On What Date [...] Time Mother Family history of kidney disease Not available 2022 03:50:23 Mother Family history [...] mL 4 completed ARMIDA HIRSCH MA null, [place] - [facility]. 09/01/2024 18:38:23 Influenza, split virus, trivalent, PF 4 completed MD Shailesh [address], [place], [address], [facility] - [facility], [facility]. 09/01/2024 16:09:15 Td (adult), 5 Lf tetanus toxoid, preservative free, adsorbed 7 completed Not Available [facility] 08/27/2023 06:21:08 Tdap 7 completed Not Available [facility] 08/27/2023 06:21:08 Novel [id number], all formulations 9 completed Not Available [facility] 08/27/2023 06:21:08 Td(adult) unspecified formulation 1 completed Not Available [facility] 08/27/2023 06:21:08 Influenza, split virus, trivalent, preservative 6 completed Not Available [facility] 08/27/2023 06:21:08 Influenza, split virus, quadrivalent, PF 2 completed Not Available [facility] 08/27/2023 06:21:08 Influenza, split virus, quadrivalent, PF 3 completed Not Available [facility] 08/27/2023 06:21:08 Influenza, split virus, quadrivalent, preservative 8 completed Not Available [facility] 08/27/2023 06:21:09 COVID-19, mRNA, LNP-S, PF, 100 mcg/0.5mL dose or 50 mcg/0.25mL dose 2 completed Not Available [facility] 08/27/2023 06:21:09 COVID-19 vaccine, vector-nr, rS-Ad26, PF, 0.5 mL 1 completed Not Available [facility] 08/27/2023 06:21:09 COVID-19, mRNA, LNP-S, bivalent, PF, 30 mcg/0.3 mL dose 3 completed Not Available [facility] 08/27/2023 06:21:09 pneumococcal polysaccharide PPV23 0 completed Not Available [facility] 08/27/2023 06:21:09 influenza, unspecified formulation 9 completed Not Available [facility] 08/27/2023 06:21:09 influenza, unspecified formulation 8 completed Not Available [facility] 08/27/2023 06:21:09 influenza, unspecified formulation 7 completed Not Available [facility] 08/27/2023 06:21:09 Influenza, split virus, quadrivalent, PF 3 completed Not Available [facility] 10/29/2023 05:31:09 Pneumococcal conjugate PCV20, polysaccharide [id number] conjugate, adjuvant, PF 3 completed Not Available [facility] 10/29/2023 05:31:11 Past Encounters Encounter ID Performer Location Encounter Start Date Encounter Closed Date Diagnosis/Indication Diagnosis SNOMED-CT Code Diagnosis ICD10 Code Diagnosis Note [id number] ROSIBEL SALGADO RN [address] [address] 10/06/2024 12:53:21 10/06/2024 14:03:34 Adult health examination 214303301 Z00.00 Muscle weakness 75562156 M62.81 Decompensa curtis cirrhosis of liver 593839464 K74.60 See above. No evidence of ascites, varices or jaundice. Hyperlipidemia 71654126 E78.5 Chronic hepatitis C 1283 [address]7904 B18.2 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 1470913736 7382941 J44.9 Recommende d switch from Breo to Trelegy for LABA/LAMA coverage as well as ICS. 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 52288594 E11.8 [id number] October [address] [address] 10/19/2024 14:35:21 10/19/2024 17:05:19 Acute exacerbation of chronic obstructive pulmonary disease 772942093 J44.1 Will treat with short course of prednisone , 40 mg/day x 5 days. In-house supply dispensed given her difficulty getting to and obtaining medication s from the pharmacy. 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 I reviewed with her availabili ty of a funds to our office to help with co-pays if needed. Renal fail ure syndrome 20287490 N19 Acute on chronic with no significan t improvemen t in creatinine during hospitaliz ation. Reviewed with [facility] nephrology . Will obtain screening labs including [...] lung disease. Decompensa curtis cirrhosis of liver 531702140 K74.60 Will check coag studies, had recent liver function tests, will forward all to nephrology . Chronic hepatitis C 1283 24666 B18.2 High viral load, she was hoping to start treatment but is too ill at this time. Acute randa l insufficiency 949410830 N28.9 Repeat BMP drawn today. Will schedule weekly BMPs through home health to keep close eye on creatinine and GFR. Essential hypertension 38340379 I10 Blood pressure higher since discontinu ation of losartan HCTZ. Will increase amlodipine from 5 to 10 mg/day. 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 07610064 E11.8 A1c was 6.6 during recent hospital stay and blood sugars have been remaining under 200 off all insulin and oral hypoglycem ics recently. Will likely need resumption of some degree of insulin or possibly an oral agent, will monitor. She will continue checking her sugars 2-3 times per day. Tobacco us e cessation education 809783266 Z71.6 Unfortunat dimitri she continues to smoke and has been unable to quit. History of opioid abuse 7229010860 95471 F11.11 Stable on methadone but with ongoing cocaine use. Retroperit antonio lymphadenopathy 451911425 R59.0 Reactive etiology favored per radiologis t, no concerning masses or other signs of malignancy on recent noncontras t abdominal pelvis CT. [id number] DOTTIE COFFMAN LPN [address] [address] 10/20/2024 13:00:57 10/20/2024 14:00:30 Cirrhosis of liver 42445199 K74.60 Acute-on-c hronic renal failure 854965326 N17.9 R80.9 [id number] DOTTIE COFFMAN LPN [facility] [address] [place] [address] 10/25/2024 13:01:10 10/25/2024 13:17:52 Health Concerns Section Related Observation LastModified by Organization Detai ls LastModified Time None Recorded Concern Status LastModified by Organization Details LastModified Time None Recorded Payers Encounter Date Sequence Insurance Name Policy Number Policy Salmon Covered Member ID Salmon Member ID Guarantor Name 10/25/2024 2 [facility] (MEDICAID) Lea Miramontes [id number] Lea Miramontes 10/25/2024 1 [place] - [facility] (MEDICARE) Lea Miramontes [id number] Lea Miramontes OBGyn Episode No OBEpisode recorded.
--- OUTSIDE RECORDS SUMMARY | 2024-11-08 15:40 | XMS_ITS | Encounter Summary ---
Author Organization [facility] [place] [address] Care Team Providers Care Adventure Therapist Name Role Phone Penny Javed APRN Primary Care Provider + Encounter Details Date Type Department Care Team (Late st Contact Info) Description 11/01/2024 Interpretation Only [facility] in [facility] [address] [place] [address] Abbi Luna MD [address] [place] [address] Social History Tobacco Use Types [...] Priority Date/Time Associated Diagnosis Comments XR CHEST ONE VIEW STAT 11/01/2024 2:1 0 AM EST documented in this encounter Results * XR Chest One View (11/01/2024 2:10 AM EST) PT CLASS E RAD ADMITDTTM [id number] RAD PT RAD INFO [id number]^OCONNO R^ABBI RAD EXAM DESC XCXR1^XR CHEST PORTABLE OR 1V^RIS RAD WORKSTATION ID [id number] RAD Anatomical Region Laterality Modality Chest N/A Radiographic [...] who have questions please contact the health care program director that requested your imaging first. ? Narrative [...] patients who have questions please contactthe health care program director that requested your imaging first. Abbi Luna MD IMG DX ORDERABLES documented in this encounter Visit Diagnoses Not on filedocumented in this encounter Care Teams Adventure Therapist Relationship Specialty Start Date End Date Penny Javed, CORNELIA PCP - General 09/09/10 documented as of this encounter
--- OUTSIDE RECORDS SUMMARY | 2024-11-08 15:41 | XMS_ITS | Encounter Summary ---
Author Organization [facility] Address [address] [place] [address] Care Team Providers Care Mine Expert Name Role Phone Sharon Vargas MD Primary Care Provider [phone] Reason for Referral * Consult, Test and Treat (Routine) - Authorization Not Required Specialty Diagnoses / Procedures [facility] Referred To Contact Ophthalmology Diagnoses Type 2 diabetes mellitus with both eyes affected by moderate nonproliferative retinopathy and macular edema, with long-term current use of insulin ([facility]) Consuelo Nicole MD [address] [place] [phone] Phone: tel: fax: Hung Harp MD [address] [facility] [address] [place] [address] Phone: tel: fax: Referral ID Status Reason Start Date Expiration Date Visits Requested Visits Authorized [id number] Authorization Not Required Specialty Services Required 5 1 1 Question Answer Reason for Request: Other, in comments field Specify which eye: Both Contact lens wearer? No Scheduling Comments (optional ? describe specific scheduling needs if applicable): 3-4 months Onset/Duration (new problem)? years Comments Needs eval and possible injection prior to cataract surgery (April). Has had Avastin with Dr. Harp 02/2024. Reason for Visit * Reason Comments Follow-up Here for a cataract re-evaluation Encounter Details Date Type Department Care Team (Late st Contact Info) Description 10/27/2024 14:15 EST Office Visit [facility] - [place] [address] [place] [address] Consuelo Nicole MD [address] [place] [phone] Social History Tobacco Use Types Packs/Day Years Used Date Smoking Tobacco: Every Day Cigarettes Smokeless Tobacco: Never Comments Unknown Sex and Gender Information Value Date Recorded Sex Assigned at Not on file Legal Sex Female 18:01 EST Gender Identity Female 01/04/2024 11:39 EDT Sexual Orientation Not on file documented as of this encounter Patient Instructions * Patient Instructions* Verna Cerna COA - 10/27/2024 14:15 EST Images from the original note were not included. Please make an appointment with your Primary Care Provider for a pre-operative physical. Try to schedule for about 2 weeks prior to your surgery. Your lens measurement appointment is: 03/28/2025 1 PM at our office [address] [place], [place] Your surgery date for your first eye is: 05/03/2025 at [facility] (check in at Patient Registration). The Hospital will call you prior to the surgery with your report time. Your surgery date for your second eye is: 05/24/2025 Lubricant eye drops, also called artificial tears One drop each eye at least 3 times a day DO NOT use Visine or Clear Eyes Common types are Refresh Optive and Systane Ultra documented in this encounter Progress Notes * Consuelo Nicole MD - 10/27/2024 1415 EST Chief Complaint Patient presents with Follow-up Here for a cataract re-evaluation HPI The patient is a 49 y.o. female with DM, diagnosed 1992 as gestational DM. On orals/insulin. Checksbgs a couple of times a day, run 120-180. Per pt last A1c 6.6 at PCP's office ([facility]). 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 H/o cataracts both eyes. Was set to have cataract surgery last summer but was unable to do it. Did have Avastin injection right eye with Dr. Harp 03/16/2024 in preparation for cataract surgery. Has noticed worsened vision since last appt, left eye has deteriorated but right eye is still the worst. Unable to drive or ambulate safely, needs help. Has worn specs in the past. Right Eye: Blurred Vision Left Eye: Blurred Vision Visual Aid: None Current Rx Age Location: Pain: 0 - No pain Quality: Severity: Duration: Timing: Lasts: Context: Vision is worse since last appointment, no flashes of light or floaters, no pain. Modifying factors: Last visit with Dr. Harp 03/16/2024 for NPDR s/p Avastin injection right eye Associated Signs & Symptoms: A1c 6.6, on insulin (no pump) Attestation: ROS Constitutional: NL ENT/Mouth NL Cardiovascular: High Blood Pressure, High Cholesterol Respiratory: NL Gastrointestinal: NL Genitourinary: NL Musculoskeletal: NL Integumentary: NL Neurologic: NL Psychiatric: NL Endocrine: Diabetes Hematologic: NL Immunologic: Drug Allergy Jalousies Installer: Exposures: None Other: Attestation: Base Eye Exam Visual Acuity (Snellen - Linear) Right Left Dist sc CF at 2' CF at 2' Dist ph sc NI NI Visual Acuity #2 (Snellen - Linear) Right Left Dist sc CF 20/300 Visual Acuity Comments VA 2 Post dilation Tonometry (Applanation, 14:32) Right Left Pressure 20 19 Pupils Pupils APD Right PERRL None Left PERRL None Visual Martínez (Counting fingers) Right Left Full Right eye: superonasal full to count fingers, temporal full to finger motion, infero nasal limited finger motion Extraocular Movement Right Left Full Full Neuro/Psych Oriented x3: Yes Mood/Affect: Normal Dilation Both eyes: Tropicamide 1%, Phenylephrine 2.5% @ 14:33 Slit Lamp and Fundus Exam External Exam Right Left External Normal Normal Slit Lamp Exam Right Left Lids/Lashes Normal Normal Conjunctiva/Sclera White and quiet White and quiet Cornea No guttata, diffuse confluent PEE No guttata, confluent PEE Anterior Chamber Deep and quiet Deep and quiet Iris Dilates to 8mm, no pseudoexfoliation Dilates to 8.5mm, no pseudoexfoliation Lens 3+ Nuclear Sclerosis, cortical haze, cortical wedges, 4+ diffuse PSC 3+ Nuclear Sclerosis, cortical haze, cortical wedges, 4+ PSC Fundus Exam Right Left Vitreous Normal Normal Disc Intact Rim Intact Rim C/D Ratio 0.1 0.1 Macula No details No details Vessels Normal Normal Periphery Hazy view of arcades with dot blot hemorrhages and microaneurysms, poor view of mid and far periphery Intraretinal hemorrhages in arcades, poor view of mid and far periphery Refraction Manifest Refraction Sphere Cylinder [place] Dist VA Right -7.25 +2.00 150 NI Left -4.50 +0.75 040 20/200 Cycloplegic Refraction (Auto) Sphere Cylinder [place] Right -13.00 +2.75 010 Left -8.50 +1.25 090 Cycloplegic Refraction #2 Sphere Cylinder [place] Right Left -8.00 Sphere Cycloplegic Refraction Comments C2 by MD- responses fluctuating during refraction likely due to dry eye, no clear improvement in subjective acuity when checked with and without phoropter. DIAGNOSTIC TESTS: OCT, Retina - OU - Both Eyes OCT macula Right: signal strength: 2/10, thickness 107 microns, normal foveal contour, no intra/subretinal fluid Left: signal strength: 2/10, thickness microns, normal foveal contour, no intra/subretinal fluid IMPRESSION & PLAN: Type 2 diabetes mellitus with both eyes affected by moderate nonproliferative retinopathy without macular edema, with long-term current use of insulin - hazy views of fundus in both eyes, no fluid onOCT today 10/27/2024. Had eval with Dr. Harp Spring 2023 and Avastin 03/16/2024 in preparation for cataract surgery. - continue good bg control, control of systemic factors - re-refer to [place] for possible pre-cataract surg treatment - note to PCP Combined forms of age-related cataract of both eyes - The patient has symptomatic visually significant cataract(s) in both eye(s). The patient's vision cannot be maximized with a change in the prescription of glasses or contact lenses and this decreasesthe patient's ability to drive and ambulate safely. Testing for other eye diseases such as age related macular degeneration and glaucoma have been completed, and these conditions are not contributingto the patient's visual difficulties. R/B/A cataract surgery discussed including bleeding, infection, loss of vision, loss of the eye, retinal detachment, glaucoma, and subsequent surgery. Discussed with patient that macular edema can develop after cataract surgery and cause decrease in the vision. Pt wishes to proceed. Have discussed IOLs, options of premium IOLs. Pt interested in monofocal IOL for distance emmetropia. Plan cataract extraction with IOL right eye first, target plano. Consent signed today. Schedule Biometry. Pt advised to schedule a pre-op physical with PCP within 30 days of surgery. Patient does notneed to stop anticoagulation if applicable. - placing new Retina referral Dry eye syndrome, bilateral - stressed importance of art tears tid in preparation for cataract surgery Refractive error - - continue without specs at this time I have reviewed the patient's past medical, family, social and surgical history. I have also reviewed the patient's medications, allergies, and problem list. I performed my own HPI and have reviewed the tech's ROS as well. I completed this exam personally. I spent a total of 30 minutes on the date of this encounter meeting with the patient and reviewing documentation/coordinating care as described in the above note. No procedures were performed at the time of the visit. I am scribing for Consuelo Nicole MD, while she is personally performing the service. JIM Osborne Patient Education Topic: NPDR, cataract surgery Method: Verbal Taught to: Patient Barriers: None Outcomes: independent Signature: Consuelo Nicole MD documented in this encounter Plan of Treatment Upcoming Encounters Date Type Department Care Team (Late st Contact Info) Description 12/22/2024 14:45 EST Office Visit [facility] [address] [phone] Hung Hapr MD [address] [place] [address], [address] [place] [phone] 03/28/2025 13:00 EDT Office Visit [address] [address] Consuelo Nicole MD [address] [place] [phone] Scheduled Referrals Name Type Priority Associated Diagnoses Orde r Schedule AMB CONS/FOLLOW UP OPHTHALMOLOGY Outpatient Referral Routine/Next Available Type 2 diabetes mellitus with both eyes affected by moderate nonproliferative retinopathy and macular edema, with long-term current use of insulin ([facility]) Expected: 01/25/2025 (Approximate) , Expires: 10/27/2025 documented as of this encounter Procedures Procedure Name Priority Date/Time Associated Diagnosis Comments OCT, RETINA - OU - BOTH EYES Routine 10/27/2024 16:51 EST Type 2 diabetes mellitus with both eyes affected by moderate nonproliferative retinopathy and macular edema, with long-term current use of insulin ([facility]) documented in this encounter Results * OCT, RETINA - OU - BOTH EYES (10/27/2024 16:51 EST) Narrative [facility] OPHTHAL[facility]OLOG[facility] - 10/27/2024 16:51 EST OCT macula Right: signal strength: 2/10, thickness 107 microns, normal foveal contour, no intra/subretinal fluid Left: signal strength: 2/10, thickness ??microns, normal foveal contour, no intra/subretinal fluid us Consuelo Nicole MD OPHTH TOMOGRAPHY Final Resu lt [facility] OPHTHALMOLOG[facility] documented in this encounter Visit Diagnoses Diagnosis Type 2 diabetes mellitus with both eyes affected by moderate nonproliferative retinopathy and macular edema, with long-term current use of insulin ([facility])- Primary Combined forms of age-related cataract of both eyes Other and combined forms of senile cataract Dry eye syndrome, bilateral Refractive error Unspecified disorder of refraction and accommodation documented in this encounter Discontinued Medications Medication Sig Discontinue Reason Start Date End Da te albuterol 90 mcg/actuation inhaler Inhale 2 Puffs as directed every 4 hours as needed for Wheezing. Alternate therapy 10/27/2024 documented as of this encounter Historical Medications * This list may reflect changes made after this encounter. fluticasone furoate-vilantero L (BREO ELLIPTA) 200-25 mcg/dose inhaler 200-25 mcg Inhale 1 Puff as directed 2 times daily. 07/18/2024 fluticasone-umecl idin-vilanter 200-62.5-25 mcg blister with device Inhale 1 Puff as directed daily. 09/01/2024 added in this encounter Eye Exam Visual Acuity #1 (Snellen - Linear) Right eye Left eye Dist sc CF at 2' CF at 2' Dist ph sc NI NI Visual Acuity #2 (Snellen - Linear) Right eye Left eye Dist sc CF 20/300 Visual Acuity Comments VA 2 Post dilation Tonometry (Applanation, 14:32) Right eye Left eye Pressure 20 19 Pupils Pupils APD Right eye PERRL None Left eye PERRL None Visual Martínez (Counting fingers) Right eye Left eye Full Right eye: superonasal full to count fingers, temporal full to finger motion, infero nasal limited finger motion Extraocular Movement Right eye Left eye Full Full Neuro/Psych Oriented x3: Yes Mood/Affect: Normal Dilation Both eyes: Tropicamide 1%, P henylephrine 2.5% @ 14:33 External Exam Right eye Left eye External Normal Normal Slit Lamp Exam Right eye Left eye Lids/Lashes Normal Normal Conjunctiva/Sclera White and quiet White and thelma et Cornea No guttata, diffuse confluent PE E No guttata, confluent PEE Anterior Chamber Deep and quiet Deep and quiet Iris Dilates to 8mm, no pseudoexfoliation Dilates to 8.5mm, no pseudoexfoliation Lens 3+ Nuclear Sclerosis , cortical haze, cortical wedges, 4+ diffuse PSC 3+ Nuclear Sclerosis, cortical haze, cortical wedges, 4+ PSC Fundus Exam Right eye Left eye Posterior Vitreous Normal Normal Disc Intact Rim Intact Rim C/D Ratio 0.1 0.1 Macula No details No details Vessels Normal Normal Periphery Hazy view of arcades with dot blot hemorrhages and microaneurysms, poor view of mid and far periphery Intraretinal hemorrhages in arcades, poor view of mid and far periphery Manifest Refraction Sphere Cylinder [place] Dist VA Right eye -7.25 +2.00 150 NI Left eye -4.50 +0.75 040 20/200 Cycloplegic Refraction #1 (Auto) Sphere Cylinder [place] Right eye -13.00 +2.75 010 Left eye -8.50 +1.25 090 Cycloplegic Refraction #2 Sphere Cylinder [place] Right eye Left eye -8.00 Sphere Cycloplegic Refraction Comments C2 by MD- responses fluctuating during refraction likely due to dry eye, no clear improvement in subjective acuity when checked with and without phoropter. Care Teams Mine Expert Relationship Specialty Start Date End Date Sharon Vargas MD [address] [place] [phone] PCP - General 09/09/15 documented as of this encounter
--- OUTSIDE RECORDS SUMMARY | 2024-11-08 15:41 | XMS_ITS | Encounter Summary ---
Author Organization [facility] Address [address] [place] [address] Care Team Providers Care Archeology Professor Name Role Phone Sharon Vargas MD Primary Care Provider [phone] Reason for Visit * Reason Onset Date Comments Appointment Related 03/08/2024 Encounter Details Date Type Department Care Team (Late st Contact Info) Description 03/08/2024 Telephone [facility] [address] [place] [address] Consuelo Nicole MD [address] [place] [phone] Appointment Related Social History Tobacco Use Types [...] Info) Description 12/22/2024 14:45 EST Office Visit [facility] [address] [place], [place] [phone] Hung Harp MD [address] [facility], [address] [place] [phone] 03/28/2025 13:00 EDT Office Visit [facility] Op[facility] [address] [place] [address] Consuelo Nicole MD [address] [place] [phone] documented as of this encounter Visit Diagnoses Not on filedocumented in this encounter Care Teams Archeology Professor Relationship Specialty Start Date End Date Sharon Vargas MD [address] [place] [phone] PCP - General 09/09/15 documented as of this encounter
--- OUTSIDE RECORDS SUMMARY | 2024-11-08 15:41 | XMS_ITS | Continuity of Care Document ---
Author Organization [place] [facility], [facility] Address [address] [place] [address] Care Team Providers Care Marine Steam Fitter Name Role Phone [facility] OPHTHALMOLOGY [facility] Ophtha lmologist RACHELL FIORE Block Saw Operator Assessment Encounter Date Assessment Date Assessment [...] She is under the care of a rail track layer at [facility], Elbert Oliver. - Plan: a. Encourage patient to schedule an appointment for toenail trimming and routine foot care with her rail track layer. COPD and Shortness of Breath - Assessment: Patient experiences increased shortness of breath and currently uses albuterol. She has a refill for Breo and expresses interest in trying Trelegy. - Plan: a. Prescribe Trelegy and send the prescription to [facility]. b. Advise patient to continue using Breo as prescribed. c. Schedule a follow-up in one month to monitor breathing and lung function. Sleep Apnea - Assessment: Patient reports symptoms indicative of sleep apnea, including mouth breathing, gasping for air, and waking abruptly due to breathing difficulties. - Plan: a. Refer patient for a sleep study at [facility] to assess for sleep apnea and [...] - Plan: a. Provide information on the [facility] [...] devoted to today's encounter, including both the vjuy-gc-vndf time with the patient and/or family/caregiver and rqq-gtab-nw-face time I personally spent is 40 minutes. [email or web address] Not available 09/01/2024 16:11:48 Plan of Treatment [...] hemoglobi n A1C, fingersti ck 2023 024 [email or web address] [facility], [address] [place] [address], [place], [address], 09/02/2024 08:08:00 Referral podiatris t referral - well known to Dr. Valentino , (over)due for nail/foot care adn general f/u. 2023 024 [email or web address] [facility], [address], [place], [address], 10/16/2024 04:49:35 sleep medicine referral - witnessed nocturnal apnea, pt with obesity, COPD, chronic opioid dependenc e; eval for central vs obstructi ve sleep apnea 2023 024 conner n21 [facility], [address] [place] [address] [place], [address], 10/05/2024 06:58:37 Procedures None recorded. Surgeries None recorded. Imaging None recorded. Medication Orders Trelegy Ellipta 200 mcg-62.5 mcg-25 mcg powder for inhalatio n 2023 024 [employer] [address], [place], [address], 10/06/2024 14:45:17 atorvasta tin 40 mg tablet 2023 024 [employer] [address], [place], [address], 09/02/2024 08:08:00 escitalop karlo 10 mg tablet 2023 024 [email or web address] [employer] [address], [place], [address], 10/19/2024 11:43:11 omeprazol e 40 mg capsule,d elayed release 2023 024 [email or web address] [employer] [address], [place], [address], 09/02/2024 08:08:00 amlodipin e 5 mg tablet 2023 [employer] [address], [place], [address], 09/02/2024 08:08:00 Diovan HCT 320 mg-25 mg tablet 2023 [employer] [address], [place], [address], 10/19/2024 11:44:52 amitripty line 25 mg tablet 2023 [email or web address] [employer] [address], [place], [address], 09/02/2024 08:08:00 Tresiba FlexTouch U-200 insulin 200 unit/mL (3 mL) subcutane ous pen 2023 [employer] [address], [place], [address], 10/19/2024 11:50:52 metformin ER 500 mg tablet,ex tended release 24 hr 2023 [employer] [address], [place], [address], 10/19/2024 11:51:21 Accu-Chek Guide test strips 2023 [email or web address] [employer] [address], [place], [address], 09/02/2024 08:08:00 Patient TargetsNo targets recorded. Patient Instructions Encounter Date Encounter Id Patient Instructions Last Modified By Organization Details Last Modified Time 09/01/2024 [id number] advised to quit smoking [email or web address] Not available 09/01/2024 16:09:15 Dear Lea, Thank [...] on medications. - Sleep study referral to [facility] for sleep apnea evaluation. - Contact [facility] for toenail trimming appointment. - Stool sample test and mammogram to be scheduled after Wednesday. - Lifestyle Adjustments: - Continue efforts to reduce smoking. - Ensure proper diet and manage meal preparations, possibly with assistance from [employer] Whe[employer]. - Support Services: - Contact [facility] [...] Warm regards, Sharon Henderson MD Family Medicine [email or web address] Not available 09/01/2024 16:11:10 Reason for Referral Sleep Medicine Referral for Sleep apnea witnessed nocturnal apnea, pt with obesity, COPD, chronic opioid dependence; eval for central vs obstructive sleep apnea Referring Physician: Family Rebecca Medicine, Encounter Date: 09/01/2024 Assistant Press Operator Referral for Toen ail thickened well known to Dr. Valentino, (over)due for nail/foot care adn general f/u. Referring Physician: Family Darcy Bolivar, Encounter Date: 09/01/2024 Results Created Date Observation Date Name Description Value Unit Range Abnormal Flag Note LastModifiedBy Organization Detail LastModifiedTime 09/01/2009/01/2024 hemog lobin A1C, ramses rsnik k hemoglobin A1C 6.6 % <5.7 Not Available [facility] [address], [place], [address], 09/01/2024 15:49:53 10/07/2010/0710/07/2024 CT ABD pelvi s wo IV or oral contr ast [facility] RADIOL OGY Mark Jeff santamaria [id number] RADIOL OGY TRANSC RIPTIO N REPORT _ Patien t Name: FARAZ BUCKLEY,ERROL BYERS B MRN: Sex: : Age: [id number] F [id number] Accoun t: Access ion: Admit: StayTy pe: [id number] 2023 E Ordere d: Order ID: Submit curtis: Rosetta urena Provid er: 2023 14:14 [id number] CAROLINA MCINTOSH curtis: Techno logist : Result [...] ipate in the care of this patimichael t. If you are a health care [facility] er and have any questi ons regard ing this report , please contac t the number below. For patien ts who have questi ons please contac t the [facility] care [facility] that reques curtis your imagin g first. Electr onical ly signed by: Júnior Vick MD Radiol ogy Bryan n ([phone]), at 2023 3:51 PM INTERFACE [facility] (Lab) [address] [place] [address], [id number], 10/07/2024 15:57:10 11/01/19 25 11/01/2024 xr chest tiffany ble or 1V [facility] RADIOL OGY [facility] [address] RADIOL OGY TRANSC RIPTIO N REPORT _ Patien t Name: ERROL RUTH MS ZEESHAN B MRN: Sex: : Age: [id number] F [id number] Accoun t: Access ion: Admit: StayTy pe: [id number] 025 E Ammon d: Order ID: Submit curtis: Rosetta urena Provid er: 2024 01:40 [id number] ABBI JALLOH curtis: Techno logist : Result [...] t. If you are a health care [facility] and have any questi ons regard ing this report , please contac t the number below. For patien ts who have questi ons please contac t the health care profes [facility] that reques curtis your imagin g first. Electr onical ly signed by: Lala Patel MD Radiol jimmy schaefer ([phone]), at 025 2:13 AM INTERFACE [facility] (Lab) [address] [place] [address], [address], 11/01/2024 02:19:02 11/02/19 25 11/01/2024 EKG order jude ng 12 lead [facility] rosalio [facility] [address] EKG TRANSC RIPTIAbundio Schaefer REPORT _ Accoun t: Access ion: Admit: StayTy pe: [id number] 115 025 E/R Observ ation: Order ID: Submit curtis: Rosetta Flood er: 2024 02:16 [id number] MBABBI TRUONG _ [place] [id number] [facility]: [facility]01 Pat Name: ABELINO Olive FARAZ MS Depart ment: Burak eugene ID: [id number] Room: Gender : F Techni emir: : 01-03 Reques curtis By: ABBI Reynoso Order Number : [id number] Charbel junior MD: Gentry Finney Measur ements Interv als [place] Rate: 104 P: 76 LA: 176 QRS: -32 QRSD: 96 T: 0 QT: 370 QTc: 486 Interp retive Statem ents Sinus tachyc ardia Left axis deviat ion Compar ed to ECG 2022 05:17: 21 Left-a xis deviat ion now presen t Sinus rhythm no longer presen t Electr onical ly Signed On 025 8:26:2 3 EST by Gentry Finney INTERFACE [facility] (Lab) [address] [place] [address], [address], 11/02/2024 08:28:22 11/02/19 25 11/01/2024 CT chest wo contr ast [facility] RADIOL [place] t [address] RADIOL OGY TRANSC SUKHDEEP Schaefer REPORT _ Patien t Name: ERROL RUTH MS MRN: Sex: : Age: [id number] F [id number] Accoun t: Access ion: Admit: StayTy pe: [id number] 115 025 I Ordere d: Order ID: Submit curtis: Rosetta ayanna Flood er: 2024 08:54 [id number] CLIVE BONNER curtis: Techno logist : Result [...] partic ipate in the care of this saúlen t. If you are a health care [facility] er and have any questi ons regard ing this report , please contac t the number below. For patien ts who have questi ons please contac t the [facility] care profes sional that reques curtis your imagin g first. Electr onical ly signed by: Jose Lopez MD Radiol ogy Bryan n ([phone]), at 025 9:30 AM INTERFACE [facility] (Lab) [address] [place] [address], [address], 11/02/2024 09:37:40 11/02/19 25 11/02/2024 nm lung venti latio n and perfu ronan* [facility] RADIOL OGY [place] Jeff santamaria [id number] RADIOL OGY TRANSC RIPTIO N REPORT _ Patien t Name: ERROL RUTH MS MRN: Sex: : Age: [id number] F [id number] Accoun t: Access ion: Admit: StayTy pe: [id number] 025 I Ammon d: Order ID: Submit curtis: Rosetta urena Provid er: 2024 14:46 [id number] [place] GARTH HORAN curtis: Techno logist : Result ed: 2024 08:57 HTP 2024 11:46 _ EXAMIN ATION: NM LUNG VENTIL ATION AND PERFUS ION CLINIC AL HISTOR Y: Reason NM Lung: SOB Add'l Info: COPD, KYM TECHNI QUE: Follow ing inhala tion of 1 mCi of techne tium-9 9m PYP aeroso l, ventil ation images of the lungs were obtain ed in the anteri or, incident manager ior, latera l and obliqu e projec tions. This was follow ed by intrav enous admini strati on of 4 mCi of [...] t. If you are a health care [facility] er and have any questi ons regard ing this report , please contac t the number below. For patien ts who have questi ons please contac t the health care profes sional that reques curtis your imagin g first. Electr onical ly signed by: Júnior Vick MD Radiol jimmy Adams olive ([phone]), at 025 11:46 AM [facility] (Lab) [address] [place] [address], [address], 11/02/2024 11:53:05 Result Notes None recorded. Problems Name Problem SNOMED Code Status Onset Date Resolution Date Notes Provider Name and Address Organization Details Recorded Time Complica tion due to diabetes mellitus 79647182 Active [address], [facility] [address] , [facility] 14:41:01 Gastroes ophageal reflux disease without esophagi tis 873966924 Active [address], [place] [address] , [facility] 15:41:02 Sleep apnea 32641209 Active [address], [address] 15:41:33 Dyspnea on exertion 29340180 Active [address], [place] [address] , [facility] 16:02:44 Smoker 95284427 Active [address], [place] [address] , [facility] 16:03:44 Legal blindnes s 25058403 Active [address], [place] [address] , [facility] 16:04:00 Toenail thickene d 059781343 Active [address], [place], [address] , [facility] 16:07:44 Pruritic rash 01223472 Active [address], [address] 16:09:31 Retroper itoneal lymphade nopathy 495077134 Active 2023 burak MIRAMONTES RN null, [facility] 5 12:10:08 Renal failure syndrome 08534024 Active 2023 burak MIRAMONTES RN [facility], [facility] 5 12:10:41 Acute exacerba tion of chronic obstruct vishnu pulmonar y disease 576046059 Active 2024 SHARON HENDERSON MD [address], [place], [address] , [facility] 5 15:11:03 Acute renal insuffic iency 853697557 Active [address], [place], [address] , [facility] 5 16:57:59 Essentia l hyperten ronan 93320761 Active 2005 [facility] 4 09:53:15 Hyperlip idemia 88706035 Active 2005 [facility] 4 10:08:20 Uncompli cated moderate persiste nt asthma 334259770 Active 2005 [facility] 4 10:24:46 Severe obesity 48262982256 104 Active 2005 [facility] 4 10:22:09 Chronic hepatiti s C 217502697 Active 2003 pos viral load not treated [facility] 4 09:47:44 Pain of right shoulder joint 28438902104 678326 Active 2014 [facility] 4 10:17:43 Neuropat hy due to type 2 diabetes mellitus 34372557869 9106 Active 2014 uncontro lled, w/neurol o comps [facility] 4 10:17:28 Idiopath ic osteoart hritis 523689496 Active 2014 DJD, knees, bilatera l [facility] 4 10:08:49 Renal disorder due to type 2 diabetes mellitus 108136108 Active 2015 Diabetic nephropa thy [facility] 4 10:21:57 Derangem ent of right knee 09653618580 171716 Completed 201505/05/2016 Problem Code: M23.91; Problem Code Type: ICD-10; Not Available [facility] 3 04:12:16 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 57648912007 9104 Active 2015 (not billable after 6) [facility] 4 10:16:21 Cocaine abuse 63567456 Active 2016 episodic [facility] 4 09:50:22 Tobacco use cessatio n educatio n Active 2016 [facility] 4 10:22:41 Gallblad mark calculus with acute cholecys titis and no obstruct ion 019892104 Completed 201612/29/2016 Problem Code: K80.00; Problem Code Type: ICD-10; Not Available [facility] 3 04:12:17 Acute asthma 232756648 Completed 201604/13/2017 Problem Code: J45.901; Problem Code Type: ICD-10; Not Available [facility] 3 04:12:17 Cellulit is 272393427 Completed 201607/16/2017 Problem Code: L03.90; Problem Code Type: ICD-10; Not Available [facility] 3 04:12:17 Atopic dermatit is 09686644 Active 2017 [facility] 4 09:45:01 Impetigo 82835520 Completed 201705/03/2018 Problem Code: L01.00; Problem Code Type: ICD-10; Not Available [facility] 3 04:12:17 Screenin g gopiogramy ledesma Completed 201804/20/2019 Problem Code: Z12.31; Problem Code Type: ICD-10; Not Available [facility] 3 04:12:18 History of diabetic foot ulcer 50807705491 805179 Active 2018 [facility] 4 10:01:51 Chronic obstruct vishnu pulmonar y disease 07674006 Active 2018 Asthma with COPD [facility] 4 09:48:31 Anemia 914536456 Active 2018 [facility] 4 09:39:01 Albumin level - finding 757739105 Active 2018 decrease d [facility] 4 09:37:16 Peripher al venous insuffic iency 59737303 Active 2018 Stasis ulcer [facility] 4 10:18:18 Cough 39048275 Completed 201908/22/2020 Problem Code: R05; Problem Code Type: ICD-10; Not Available [facility] 3 04:12:19 Endocrin e/metabo lic screenin g Completed 202012/28/2020 Problem Code: Z13.29; Problem Code Type: ICD-10; Not Available [facility] 3 04:12:19 Counseli ng Active 2020 Immuniza tion counseli ng [facility] 4 09:51:24 Generali zed anxiety disorder 13756143 Active 2020 [facility] 4 10:01:19 Vomiting 254944003 Completed 202006/26/2021 Problem Code: R11.10; Problem Code Type: ICD-10; Not Available [facility] 3 04:12:19 Insect bite Completed 202007/09/2021 Not Available [facility] 3 04:12:20 Cirrhosi s of liver 08452253 Active 2022 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 with possible contribu tion of [place], decompen sated [facility] 4 09:49:47 Jaundice 51651975 Active 2022 [facility] 4 10:09:01 Muscle weakness 15780770 Active 2022 (general ized) [facility] 4 10:16:46 Opioid abuse 9317095 Completed 202209/28/2023 Problem Code: F11.10; Problem Code Type: ICD-10; Not Available [facility] 4 05:34:22 Lichen simplex chronicu s 48039327 Active 2022 Neuroder matitis [facility] 4 10:10:12 History of osteomye litis 074210744 Active 2022 [facility] 4 10:05:22 Opioid abuse 9079945 Completed 201807/14/2023 03/04/20 21 - Comments only - Sharon Henderson MD - offered scg for OBT but she states she plans to try to establis h tx thru [facility]. Not interest ed in Suboxone or Vivitrol ; might be interest ed in Sublocad e. Problem Code: F11.10; Problem Code Type: ICD-10; Not Available [facility] 3 04:12:22 Cholelit hiasis without obstruct ion 92572543 Completed 201512/22/2016 Problem Code: K80.20; Problem Code Type: ICD-10; Not Available [facility] 3 04:12:22 Candidia sis of vagina 63968042 Completed 201503/27/2016 Problem Code: B37.3; Problem Code Type: ICD-10; Not Available [facility] 3 04:12:23 Traumati c or non-trau matic injury 825222886 Completed 201607/14/2023 Problem Code: T14.8; Problem Code Type: ICD-10; Not Available [facility] 3 04:12:23 Disorder of teeth AND/OR supporti [facility] 786918268 Completed 201503/17/2016 Problem Code: K08.8; Problem Code Type: ICD-10; Not Available [facility] 3 04:12:23 Uncompli cated asthma 477165583 Completed 200507/14/2023 Problem Code: J45.909; Problem Code Type: ICD-10; Not Available [facility] 3 04:12:23 Hyperten sive disorder 71022369 Completed 200507/14/2023 Not Available [facility] 3 04:12:24 Scar conditio ns and fibrosis of skin 517183923 Completed 201604/23/2017 Problem Code: L90.5; Problem Code Type: ICD-10; Not Available [facility] 3 04:12:24 Human papillom a virus infectio n 405868618 Completed 201607/14/2023 Problem Code: B97.7; Problem Code Type: ICD-10; Not Available [facility] 3 04:12:24 Morbid obesity 288833775 Completed 200507/14/2023 Not Available [facility] 3 04:12:24 Foot ulcer due to type 2 diabetes mellitus 12583523785 00 Completed 201512/22/2016 01/20/20 19 - Comments [...] E11.621; Problem Code Type: ICD-10; Kristie rivera [facility] 4 09:59:50 Periapic al abscess 640164046 Completed 201403/17/2016 Problem Code: K04.7; Problem Code Type: ICD-10; Not Available [facility] 3 04:12:25 Drug abuse 91269057 Completed 200707/14/2023 Problem Code: 305.90; Problem Code Type: ICD-9; Not Available [facility] 3 04:12:25 Opioid dependen ce in remissio n 913145941 Completed 201807/14/2023 09/26/20 19 - Comments only [...] F11.21; Problem Code Type: ICD-10; Not Available [facility] 3 04:12:25 Gynecolo gic examinat ion Completed 201602/02/2017 Problem Code: Z01.419; Problem Code Type: ICD-10; Not Available [facility] 3 04:12:26 Nodule on toe 655461222 Completed 201605/25/2019 Not Available [facility] 3 04:12:26 Pain of right knee joint 01697137223 4100 Completed 201502/02/2017 Problem Code: M25.561; Problem Code Type: ICD-10; Not Available [facility] 3 04:12:26 Candidia sis of skin 52771641 Completed 201503/27/2016 Problem Code: B37.2; Problem Code Type: ICD-10; Not Available [facility] 3 04:12:26 Dysuria 68224719 Completed 201505/07/2016 Problem Code: R30.0; Problem Code Type: ICD-10; Not Available [facility] 3 04:12:27 Retinopa thy due to type 2 diabetes mellitus 408948261 Completed 201507/14/2023 Problem Code: E11.319; Problem Code Type: ICD-10; Not Available [facility] 3 04:12:27 Infectio n of skin and/or subcutan eous tissue 60116999 Completed 202204/30/2023 Problem Code: L08.89; Problem Code Type: ICD-10; Not Available [facility] 3 04:12:27 Tobacco dependen ce caused by cigarett es 10303638031 298434 Completed 200305/25/2019 Problem Code: F17.210; Problem Code Type: ICD-10; Not Available [facility] 3 04:12:27 Opioid dependen ce 34465313 Completed 200309/04/2015 05/25/20 19 - Comments only - Alexandro Grewal - [facility]. Problem Code: F11.20; Problem Code Type: ICD-10; Not Available [facility] 3 04:12:28 Asthma 256665407 Completed 200507/14/2023 Not Available [facility] 3 04:12:28 Pain of joint of knee 2932000217 Completed 201407/14/2023 Problem Code: M25.569; Problem Code Type: ICD-10; Not Available [facility] 3 04:12:28 Cellulit is of right lower limb 10009333941 843688 Completed 201805/25/2019 Problem Code: L03.115; Problem Code Type: ICD-10; Not Available [facility] 3 04:12:28 Shoulder joint pain 347293344 Completed 201407/14/2023 Problem Code: 719.41; Problem Code Type: ICD-9; Not Available [facility] 3 04:12:29 Smoker 14294720 Completed 200307/14/[address], [facility] [address] , [facility] 4 16:03:44 Chronic ulcer of foot 604192171 Completed 201601/05/2017 Problem Code: L97.529; Problem Code Type: ICD-10; Not Available [facility] 3 04:12:29 Type 2 diabetes mellitus without complica tion 294625860 Completed 200307/14/2023 Problem Code: 250.00; Problem Code Type: ICD-9; MD Shailesh [address] Dr, [facility] [address] , [facility] 4 14:43:16 Pain of left knee joint 75303065018 4107 Completed 201407/14/2023 Problem Code: M25.562; Problem Code Type: ICD-10; Not Available [facility] 3 04:12:30 Depressi ve disorder 71195750 Completed 200307/14/[address], [facility] [address] , [facility] 4 14:41:17 Hypergly cemia due to type 2 diabetes mellitus 21806237341 9109 Completed 200309/04/2015 Problem Code: E11.65; Problem Code Type: ICD-10; Not Available [facility] 3 04:12:30 Chest pain 76254619 Completed 201605/25/2019 Problem Code: R07.89; Problem Code Type: ICD-10; Not Available [facility] 3 04:12:31 Drug dependen ce 277163383 Completed 200307/14/2023 Problem Code: 304; Problem Code Type: ICD-9; Not Available [facility] 3 04:12:31 Cellulit is of toe of right foot 94853134350 708937 Completed 201505/11/2016 Problem Code: L03.031; Problem Code Type: ICD-10; Not Available [facility] 3 04:12:31 Osteoart hritis of knee 927253796 Completed 201402/02/2017 Problem Code: M17.9; Problem Code Type: ICD-10; Not Available [facility] 3 04:12:32 History of infectio us disease 574626000 Completed 201409/04/2015 Problem Code: Z86.19; Problem Code Type: ICD-10; Kristie rivera, [facility] 4 10:05:01 Tobacco user 610819830 Completed 200508/06/2015 Not Available [facility] 3 04:12:32 Viral screenin g Completed 202209/10/2023 Problem Code: Z11.52; Problem Code Type: ICD-10; Not Available [facility] 4 05:34:15 Acute upper respirat ory infectio n 93571528 Completed 202208/18/2023 Problem Code: J06.9; Problem Code Type: ICD-10; Not Available [facility] 4 05:34:15 Type 2 diabetes mellitus without complica tion 611873106 Completed 202309/01/2024 Problem Code: 250.00; Problem Code Type: ICD-9; SHARON HENDERSON MD [address], [place], [address] , [facility]. 4 14:43:16 Asthma-c hronic obstruct vishnu pulmonar y disease overlap syndrome [id number] 269926 Active 2023 Kristie rivera, [facility]. 4 09:39:21 Decompen sated cirrhosi s of liver 836585083 Active 2023 Child Bourgeois score 8/Class B as of 12/2022 [facility] 4 09:51:34 Visual impairme nt 739576867 Active 2023 [facility] 4 10:29:20 Thickene d nails 822920544 Active 2023 [facility] 4 10:22:14 Thickeni ng of skin 10023544 Completed 202309/01/2024 SHARON HENDERSON MD [address], [place], [address] [facility] 4 14:43:15 Acquired hammer toes of bilatera l feet 15819785346 502597 Active 2023 [facility] 4 09:37:02 History of amputati on of right foot 91926609989 881874 Active 2023 [facility] 4 10:01:25 Combined form of senile cataract 69037711 Active 2023 [facility] 4 09:50:32 Unintent ional weight loss 413286926 Active 2022 [facility] 4 10:24:46 History of amputati on of lesser toe 868269911 Active 2022 [facility] 4 09:38:36 History of intraven ous drug abuse 24942855298 629199 Active 2007 heroin [facility] 4 09:40:14 Left ventricu lar hypertro phy 53468143 Active 2015 mild concentr ic 12/31 echo (nl EF) [facility] 4 09:47:08 Follicul itis 37488022 Active 2022 [facility] 4 09:52:22 Peripher al edema 672418051 Active 2014 [facility] 4 09:52:55 Mild persiste nt asthma 642410257 Active 2022 with acute exacerba tion [facility] 4 09:54:28 Family history of Alzheime r's disease 443189737 Active 2018 mother age 50, maternal grandmot her, maternal aunts and uncles; no genetic testing done [facility] 4 09:56:26 Diabetic foot ulcer 628613341 Active 2022 [facility] 4 09:59:46 History of cholecys tectomy 751463982 Active 2016 laparosc opic, 01/01 [facility] 4 10:00:55 History of human papillom a virus infectio n 70222441793 9102 Active 01/01; nl pap; neg colpo 04/03 incl ECC; neg pap 11/05; 5 yr f/u [facility] 4 10:04:56 History of opioid abuse 78657805886 9100 Active 2018 Hx of opioid abuse -- Saveda resumed suboxone 09/07 [facility] 4 10:08:01 Juvenal lopez 110655880 Active 2015 s/p complete extr due to advanced caries 03/02 [facility] 4 10:13:37 Major depressi ve disorder 924077850 Active 2022 Major depressi on [facility] 4 10:15:28 Traumati c partial amputati on of right great toe Active 2018 initial encounte r [facility] 4 10:23:54 Stasis dermatit is 53177398 Active 2021 Venous stasis dermatit is [facility], [facility] 4 10:30:44 Diabetes mellitus 94257288 Completed 202309/01/[address], [place] [address] , [facility] 4 14:43:16 Type 2 diabetes mellitus 63260977 Completed 202309/01/[address], [place] [address] , [facility] 4 14:43:16 Obesity 726253838 Active [address], [place] [address] , [facility] 4 20:58:25 Hemoglob in A1c greater than 9% indicati ng poor diabetic control 29906067661 4104 Completed 202309/01/[address], [place] [address] , [facility] 4 14:43:16 Problem Notes None recorded. Medical Equipment None Reported. Allergies Allergen ID Allergen Name Allergen Category Reaction Reaction Severity Criticality Documentation Date Start Date Code Code System Note Provider Name and Address Organization Details Recorded Time 08090 lisinopri l medicatio n cough moderate Not available 08/27/20232009 61156 RxNorm [facility] 4 10:31:16 34276 metoprolo l succinate medicatio n other moderate Not available 08/27/20232018 63425 4 RxNorm No react ion enter ed [facility] 4 10:31:36 65798 codeine medicatio n hives moderate Not available 08/27/20232002 2670 RxNorm [facility] 4 10:31:10 Medications Name Sig [...] FOUR TIMES A DAY 10/11 completed burak d/diana Not Available Not Available Not Available Actos [...] Stockings Dx: peripher al edema 11/04 completed [place] Teo Not Available Not Available Not Available gabapenti n 300 mg tablet 3 cap three times daily 06/16 completed Not Available Not Available Not Available albuterol 2INH four times daily 07/31 completed Not Available Not Available Not Available Nystatin (Topical) cream apply BID 05/28 completed Not Available Not Available Not Available Nebulizer Dx: Asthma J45.40 Smoking Z71.6 2018 active Teo in [place] Not Available Not Available Not Available Humalog [...] Not Available Not Available Not Available OneTouch Sheryl Lancets 33 gauge Use 1 lancet as [...] Updated DateTime 4 160.02 cm 35.5 kg/m2 45407.9 1 g 97.5 [degF] 94 % 94 % 88 /min 168 mm[Hg] 98 mm[Hg] ARMIDA HIRSCH MA [facility], [facility] 4 15:02:01 Social History Question Answer Notes LastModified by Organizat ion Details LastModified Time Tobacco Smoking Status Current Every Day Smoker SURJIT KITCHEN LPN null, [facility] 11/03/2023 13:42:55 Date Of Most Recent HSA 10/06/2024 [email or web address] Information not available 10/06/2024 Would You Say That, In General, Your Health Is Poor [email or web address] Information not available 10/06/2024 Women Aged 18-50 - Would You Like To Become In The Next Year? (Female Patients Only) No [email or web address] Information not available 10/06/2024 How Often Does Anyone, Including Family, Physically Hurt You? Never [email or web address] Information not available 10/06/2024 How Often Does Anyone, Including Family, Insult Or Talk Down To You? Never Information no t available 10/06/2024 How Often Does Anyone, Including Family, Threaten You With Harm? Never [email or web address] Information not available 10/06/2024 How Often Does Anyone, Including Family, Scream Or Curse At You? Never [email or web address] Information not available 10/06/2024 Within The Past 12 Months, You Worried That Your Food Would Run Out Before You Got Money To Buy More. Sometimes True Information not available 10/06/2024 Within The Past 12 Months, The Food You Bought Just Didn't Last And You Didn't Have Money To Get More. Sometimes True Information not available 10/06/2024 How Hard Is It For You To Pay For The Very Basics Like Food, Housing, Medical Care, And Heating? Would You Say It Is: Very Hard Information not available 10/06/2024 In The Past 12 Months, Has Lack Of Reliable Transportation Kept You From Medical Appointments, Meetings, Work Or From Getting Things Needed For Daily Living? Yes [email or web address] Information not available 10/06/2024 What Is Your Housing Situation Today? I Have Housing. [email or web address] Information not available 10/06/2024 How Often In The Past Year Have You Used Marijuana (including Smoking, Vaping, Dabbing, Or Edibles)? Never [email or web address] Information not available 10/06/2024 How Often In The Past Year Have You Used Prescription Medications That Were Not Prescribed To You? Never [email or web address] Information not available 10/06/2024 How Often In The Past Year Have You Taken Your Own Prescription Medication More Than The Way It Was Prescribed Or For Different Reasons Than Its Intended Purpose? Never [email or web address] Information no t available 10/06/2024 How Often In The Past Year Have You Used Other Drugs (for Example, Heroin, Cocaine, Meth, Salvia, Inhalants)? Never [email or web address] Information not available 10/06/2024 Have You Ever Used IV Drugs? Yes 10 Years Ago [email or web address] Information not available 10/06/2024 What Matters Most To You? Vision, Overall Health [email or web address] Information not available 10/06/2024 During The Past Four Weeks Has Your Physical And Emotional Health Limited Your Social Activities With Family And Friends, Neighbors, Or Groups? Moderately [email or web address] Information not available 10/06/2024 During The Past Four Weeks, Was Someone Available To Help You If You Needed And Wanted Help? (For Example, If You [place] Very Nervous, Lonely, Or Blue; Got Sick And Had To Stay In Bed; Needed Someone To Talk To; Needed Help With Daily Chores; Or Needed Help Just Taking Care Of Yourself.) Yes- Quite A Bit [email or web address] Information not available 10/06/2024 During The Past Four Weeks, What Was The Hardest Physical Activity You Could Do For At Least 2 Minutes? Heavy [email or web address] Information not available 10/06/2024 Can You Get To Places Out Of Walking Distance Without Help? (For Example, Can You Travel Alone On Buses Or Taxis, Or Drive Your Own Car?) No [email or web address] Information not available 10/06/2024 Can You Go Shopping For Groceries Or Clothes Without Someone? s Help? No Information not available 10/06/2024 Can You Prepare Your Own Meals? No Information not available 10/06/2024 Can You Do Your Housework Without Help? Yes [email or web address] Information not available 10/06/2024 Because Of Any Health Problems, Do You Need The Help Of Another Person With Your Personal Care Needs Such As Eating, Bathing, Dressing, Or Getting Around The House? Yes [email or web address] Information not available 10/06/2024 Can You Handle Your Own Money Without Help? Yes [email or web address] Information not available 10/06/2024 Are You Having Difficulties Driving Your Car? Not Applicable- I Do Not Use A Car Information not available 10/06/2024 How Often During The Past Four Weeks Have You Been Bothered By Any Of The Following Problems? Falling Or Dizzy When Standing Up? Often [email or web address] Information not available 10/06/2024 Sexual Problems? Never [email or web address] Informat ion not available 10/06/2024 Trouble Eating Well? Never [email or web address] Information not available 10/06/2024 Teeth Or Denture Problems? Always [email or web address] Information not available 10/06/2024 Problems Using The Telephone? Always Can't See Phone [email or web address] Information not available 10/06/2024 Tiredness Or Fatigue? Always [email or web address] Information not available 10/06/2024 Have You Had 2 Or More Falls Or Sustained An Injury With A Fall In The Last Year? Yes [email or web address] Information not available 10/06/2024 Do You Have Difficulty With Walking Or Balance? Yes [email or web address] Information not available 10/06/2024 Do You Currently Use A Hearing Device? No [email or web address] Information not available 10/06/2024 Do You Currently Have Any Trouble With Your Vision? Yes [email or web address] Information no t available 10/06/2024 Do You Exercise For About 20 Minutes Three Or More Days A Week? No- I Usually Do Not Exercise Much [email or web address] Information not available 10/06/2024 Are There Any Safety Concerns In Your Home (see Attached [facility] Pamphlet)? Yes Stairs, Cooking [email or web address] Information not available 10/06/2024 How Often Do You Have Trouble Taking Medicines The Way You Have Been Told To Take Them? Sometimes I Take Them As Prescribed [email or web address] Information not available 10/06/2024 How Confident Are You That You Can Control And Manage Most Of Your Health Problems? Somewhat Confident [email or web address] Information not available 10/06/2024 Do You Currently Have Any Difficulty With Your Hearing? No [email or web address] Information not available 10/06/2024 Date Of Most Recent SBINS 10/06/2024 Information not available 10/06/2024 What Was The Date Of Your Most Recent Tobacco Screening? 10/06/2024 Information not available 10/06/2024 What Is Your Current Pack Years? [email or web address] ears Information not available 11/03/2023 At What Age Did You Start Smoking Tobacco? 14 Information not available 11/03/2023 How Much Tobacco Do You Smoke? 1 PPW Information not available 11/03/2023 Has Tobacco Cessation Counseling Been Provided? Yes Pt Declines. [email or web address] Information not available 10/06/2024 On What Date Was Tobacco Cessation Counseling Provided? 10/06/2024 Pt Just Not Ready Yet. [email or web address] Information not available 10/06/2024 How Many Years [...] mcg/0.3 mL 4 completed ARMIDA HIRSCH MA [facility], [facility] 09/01/2024 18:38:23 Influenza, split virus, trivalent, PF 4 completed SHARON HENDERSON MD [address], [place], [address], [facility] 09/01/2024 16:09:15 Td (adult), 5 Lf tetanus toxoid, preservative free, adsorbed 7 completed Not Available [facility] 08/27/2023 06:21:08 Tdap 7 completed Not Available [facility] 08/27/2023 06:21:08 Novel [id number]-[id number], all formulations 9 completed Not Available [facility] 08/27/2023 06:21:08 Td(adult) unspecified formulation 1 completed Not Available [facility] 08/27/2023 06:21:08 Influenza, split virus, trivalent, preservative 6 completed Not Available [facility] 08/27/2023 06:21:08 Influenza, split virus, quadrivalent, PF 2 completed Not Available [facility] 08/27/2023 06:21:08 Influenza, split virus, quadrivalent, PF 3 completed Not Available [facility] 08/27/2023 06:21:08 Influenza, split virus, quadrivalent, preservative 8 completed Not Available [facility] 08/27/2023 06:21:09 COVID-19, mRNA, LNP-S, PF, 100 mcg/0.5mL dose or 50 mcg/0.25mL dose 2 completed Not Available [facility] 08/27/2023 06:21:09 COVID-19 vaccine, vector-nr, rS-Ad26, PF, 0.5 mL 1 completed Not Available [facility] 08/27/2023 06:21:09 COVID-19, mRNA, LNP-S, bivalent, PF, 30 mcg/0.3 mL dose 3 completed Not Available [facility] 08/27/2023 06:21:09 pneumococcal polysaccharide PPV23 0 completed Not Available [facility] 08/27/2023 06:21:09 influenza, unspecified formulation 9 completed Not Available [facility] 08/27/2023 06:21:09 influenza, unspecified formulation 8 completed Not Available [facility] 08/27/2023 06:21:09 influenza, unspecified formulation 7 completed Not Available [facility] 08/27/2023 06:21:09 Influenza, split virus, quadrivalent, PF 3 completed Not Available [facility] 10/29/2023 05:31:09 Pneumococcal conjugate PCV20, polysaccharide [id number] conjugate, adjuvant, PF 3 completed Not Available [facility] 10/29/2023 05:31:11 Past Encounters Encounter ID Performer Location Encounter Start Date Encounter Closed Date Diagnosis/Indication Diagnosis SNOMED-CT Code Diagnosis ICD10 Code Diagnosis Note [id number] SHARON HENDERSON MD [address] [address] 09/01/2024 14:30:48 09/01/2024 15:49:47 Asthma-chronic obstructive pulmonary disease overlap syndrome [id number] 7338143 J44.9 Recommende d switch from Breo to Trelegy for LABA/LAMA coverage as well as ICS. Essential hypertension 18465917 I10 Not well-contr olled related to being out of medication for 2 weeks, meds renewed, follow-up 1 month. Anxiety 48522839 F41.9 Neuropathy due to type 2 diabetes mellitus 5664222741 93756 E11.40 With recurrent callus right foot that is causing pain. Will refer back to Dr. Oliver. Hyperlipidemia 42023344 E78.5 Gastroesop hageal reflux disease without esophagitis 958913337 K21.9 Continue daily PPI. Sleep apnea 60667081 G47 .30 Central/op ioid mediated versus OLVIN. Advised sleep eval. Referral made. History of fall 40779397 9 Z91.81 Continue use of assistive device such as cane. Keep follow-up with eye doctor. Active or passive immunization 948213497 Z23 Dyspnea on exertion 6084 5006 R06.09 Could be due to worsening COPD, untreated sleep apnea might be contributi ng, CHF also certainly a possibilit y. Will urge echo and cards eval at follow-up if not significan tly improved with change in inhaler. Encouraged continued efforts at smoking cessation. Smoker 97819967 F17.210 Tobacco us e cessation education 055306024 Z71.6 She has cut back to half pack per day, encouraged continued work toward complete cessation. Legal blindness 05274490 H54.8 Will ask care coordinato r to connect [facility] with [facility] assistive [facility] es. Food insecurity 51324449 3 Z59.41 Will ask care coordinato r to assist with choices for care and Meals on Wheels applicatio ns. 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 Pt is open to treating HepC with antivirals , has not kept GI consult referrals, open to updating labs at next visit and considerin g treatment through this office. Toenail thickened 088711 000 R23.8 Needs to see her rail track layer for toenail and general foot care. Will place referral to facilitate earlier appointmen t. Pruritic rash 70387981 L 28.2 Mild folliculit is versus neuroderma [...] Salmon Member ID Guarantor Name 09/01/2024 2 [facility] (MEDICAID) Lea Miramontes [id number] Lea Miramontes 09/01/2024 1 [place]ARE-[place] - [place] A - [facility] (MEDICARE) Lea Miramontes [id number] Lea Miramontes Notes Date Note Type [...] She remains in treatment with methadone thru [facility] but hopes to have split dosing as she is feels mild withdrawal symptoms late in the day. SHARON HENDERSON MD [address], [place], [address], [facility]. 09/01/2024 16:11:54 OBGyn Episode No OBEpisode recorded.
--- OUTSIDE RECORDS SUMMARY | 2024-11-08 15:41 | XMS_ITS | Encounter Summary ---
Author Organization [facility] Address [address] [place] [address] Care Team Providers Care Rn Womens Health Name Role Phone Sharon Vargas MD Primary Care Provider [phone] Encounter Details Date Type Department Care Team (Late st Contact Info) Description 10/07/2024 Lab Requisition [facility] Pathology & Laboratory Medicine - [address] [address] Outr Resulting Lab, Provider Social History Tobacco [...] Info) Description 12/22/2024 14:45 EST Office Visit [facility] Ophthalmology [facility] [address] [place], [place] [id number] Hung Harp MD [address] [facility], [address] [place] [phone] 03/28/2025 13:00 EDT Office Visit [address] [address] Consuelo Nicole MD [address] [place] [phone] documented as of this encounter Procedures Procedure Name Priority Date/Time Associated Diagnosis Comments HCV RNA DETECT QUANT Routine 10/06/2024 14:00 EST documented in this encounter Results * (ABNORMAL) HCV RNA DETECT QUANT (10/06/2024 14:00 EST) HCV RNA Qualitative Detected( A) Undetected 10/09/2024 11:37 EST [facility] HCV RNA Quantitative 2,950,000 (H) Undetected IU/mL 10/09/2024 11:37 EST [facility] Blood VENOUS BLOOD / Unknown 10/06/2024 14:00 EST 10/07/2024 22:18 EST Narrative [facility] - 10/09/2024 11:37 EST The quantification range of this assay is 15 IU/mL to 100,000,000 IU/mL. Testing was performed using the Jaron HCV test ([employer] with the jaron [employer] System. us Provider Outr Resulting Lab CHEMISTRY & BLOOD GA S ORDERABLES Final Result Performing Organization Address City/State/[facility] Co de Phone Number [facility] [address] [place] [address] documented in this encounter Visit Diagnoses Not on filedocumented in this encounter Care Teams Rn Womens Health Relationship Specialty Start Date End Date Sharon Vargas MD [address] [place] [address] PCP - General 09/09/15 documented as of this encounter
--- OUTSIDE RECORDS SUMMARY | 2024-11-08 15:41 | XMS_ITS | Clinical Summary ---
Author Organization [facility] Address [address] [place] [address] Care Team Providers Care Designer Architect Name Role Phone Sharon Vargas MD Primary Care Provider [phone] Allergies Active Allergy Reactions Criticality Noted Date Comments Codeine Lisinopril Metoprolol Itching 12/29/2023 Medications atorvastatin (LIPITOR) 20 mg tablet Take 2 [...] solution Take 12 mL by mouth daily. Active polyethylene glycol 3350 (MIRALAX) 17 gram packet Take 17 g by mouth as needed for Constipation. Active insulin degludec (TRESIBA FLEXTOUCH U-200) 200 unit/mL (3 mL) 200 unit/ml (3ml) insulin pen Inject 8,000 Units into the skin 2 times daily. Active insulin aspart U-100 (NOVOLOG FLEXPEN) 100 unit/mL (3 mL) injectable pen Inject into the skin daily. Active buPROPion (WELLBUTRIN SR) 200 mg SR tablet Take 1 Tablet by mouth daily. Active sertraline HCl (ZOLOFT ORAL) Take by mouth. Dose unknown Active fluticasone-ume clidin-vilanter 200-62.5-25 mcg blister with device Inhale 1 Puff as directed daily. 4 Active fluticasone furoate-vilante roL (BREO ELLIPTA) 200-25 mcg/dose inhaler 200-25 mcg Inhale 1 Puff as directed 2 times daily. 4 Active albuterol 90 mcg/actuation inhaler Inhale 2 Puffs as directed every 4 hours as needed for Wheezing. 10/27/19 25 Discontinu ed(Alterna te therapy) Active Problems Problem Noted Date Diagnosed Date Combined forms of age-related cataract of both e yes 02/11/2024 Encounters Date Type Department Care Team Description 10/27/2024 14:15 EST Office Visit [facility] Ophthalmology [address] [address] Consuelo Nicole MD 10/21/2024 Lab Requisition [facility] Pathology & Laboratory [address] [address] Outr Resulting Lab, Provider 10/21/2024 Lab Requisition [facility] Pathology & Laboratory [address] [address] Outr Resulting Lab, Provider 10/20/2024 Telephone [facility] Nephrology - [address] [address] Cherrie Fam MD Appointment Related; Follow-up 10/20/2024 Telephone [facility] NEPHROLOGY [address] [place] [address] Cherrie Fam MD Follow-up 10/07/2024 Lab Requisition [facility] Pathology & Laboratory [address] [address] Outr Resulting Lab, Provider 10/06/2024 Lab Requisition [facility] Pathology & Laboratory [address] [address] Outr Resulting Lab, Provider from Last 3 [...] Info) Description 12/22/2024 14:45 EST Office Visit [facility] Ophthalmology - [address] [phone] Hung Harp MD 111 [facility], [address] [place] [address] 03/28/2025 13:00 EDT Office Visit [facility] Ophthalmology [facility] [address] [place] [address] Consuelo Nicole MD [address] [place] [phone] Health Maintenance Due Date Last Done Comments Foot Exam 1975 Lipid Profile Screening (Cholesterol) 1978 Pneumococcal Immunization (1 of 2 - PCV) 1981 Hepatitis B Vaccine (1 of 3 - 19+ 3-dose series) 1994 Hemoglobin A1C (Ha1C) 11/28/2014 05/28/2014 Microalbumin/Creatinine Ratio 10/16/2016 10/16/2015 Eye Exam 10/27/2025 10/27/2024, 05/, 02/11/2024, Additional history exists COVID-19 Vaccine Completed 09/01/2024, , 11/04/2021, Additional history exists Hepatitis C Screen Completed 10/06/2024, 0 01/01/2023, 01/01/2023 Procedures Procedure Name Priority Date/Time Associated Diagnosis Comments OCT, RETINA - OU - BOTH EYES Routine 10/27/2024 16:51 EST Type 2 diabetes mellitus with both eyes affected by moderate nonproliferative retinopathy and macular edema, with long-term current use of insulin ([facility]) HOLD SST Today 10/20/2024 13:10 EST C3 COMPLEMENT Routine 10/20/2024 13:10 EST C4 COMPLEMENT Routine 10/20/2024 13:10 EST ANTI NUCLEAR AB (DEIDRE), IFA Routine 10/20/2024 13:10 EST HEPATITIS B CORE ANTIBODY (TOTAL) Today 10/20/2024 13:10 EST HEPATITIS B SURFACE ANTIGEN Today 10/20/2024 13:10 EST HEPATITIS A TOTAL ANTIBODY W REFLEX Today 10/20/2024 13:10 EST HCV RNA DETECT QUANT Routine 10/06/2024 14:00 EST URINE XHAOYOL-EF-PILTUXW INE RATIO (ACR) Routine 10/16/2015 HEMOGLOBIN A1C Routine 05/28/2014 from Last 3 Months or Most Recently Relevant to Health Maintenance Results * OCT, RETINA - OU - BOTH EYES (10/27/2024 16:51 EST) Narrative [facility] OPHTHALMOLOGY - 10/27/2024 16:51 EST OCT macula Right: signal strength: 2/10, thickness 107 microns, normal foveal contour, no intra/subretinal fluid Left: signal strength: 2/10, thickness ??microns, normal foveal contour, no intra/subretinal fluid us Consuelo Nicole MD OPHTH TOMOGRAPHY Final Resu lt [facility] OPHTHALMOLOGY * HOLD SST (10/20/2024 13:10 EST) Hold Hold 10/21/2024 23:01 EST [facility] Blood VENOUS BLOOD / Unknown 10/20/2024 13:10 EST 10/21/2024 21:55 EST us Provider Outr Resulting Lab LAB INFO SERVICE AND SUPPORT & PHONE RESULT Final Result [facility] [address] [place] [address] * HEPATITIS A TOTAL ANTIBODY W REFLEX (10/20/2024 13:10 EST) Pathologist [facility] Hepatitis A Antibody, Total Negative Negative 10/23/2024 11:22 EST [facility] Blood VENOUS BLOOD / Unknown 10/20/2024 13:10 EST 10/21/2024 21:55 EST Narrative [facility] - 10/23/2024 11:22 EST The result of this assay can be falsely elevated (Positive) due to the consumption of Biotin. us Provider Outr Resulting Lab CHEMISTRY & BLOOD GA S ORDERABLES Final Result Performing Organization Address City/[facility]/ZIP Co de Phone Number [facility] [address] [place] [phone] * HEPATITIS B CORE ANTIBODY (TOTAL) (10/20/2024 13:10 EST) Pathologist [facility] Hepatitis B Core Ab, Total Negative Negative 10/23/2024 11:41 EST [facility] Blood VENOUS BLOOD / Unknown 10/20/2024 13:10 EST 10/21/2024 21:55 EST us Provider Outr Resulting Lab CHEMISTRY & BLOOD GA S ORDERABLES Final Result Performing Organization Address City/[facility]/ZIP Co de Phone Number [facility] [address] [place] [address] * HEPATITIS B SURFACE ANTIGEN (10/20/2024 13:10 EST) Pathologist [facility] Hep B Surface Ag Negative Negative 10/23/2024 10:42 EST [facility] Blood VENOUS BLOOD / Unknown 10/20/2024 13:10 EST 10/21/2024 21:55 EST us Provider Outr Resulting Lab CHEMISTRY & BLOOD GA S ORDERABLES Final Result Performing Organization Address [facility]/ZIP Co de Phone Number [facility] [address] [place] [address] * C3 COMPLEMENT (10/20/2024 13:10 EST) Pathologist [facility] C3 Complement 151 81 - 157 mg/dL 10/23/2024 10:23 EST [facility] Blood VENOUS BLOOD / Unknown 10/20/2024 13:10 EST 10/21/2024 21:58 EST us Provider Outr Resulting Lab CHEMISTRY & BLOOD GA S ORDERABLES Final Result Performing Organization Address City/[facility]/ZIP Co de Phone Number [facility] [address] [place] [address] * C4 COMPLEMENT (10/20/2024 13:10 EST) Pathologist [facility] C4 Complement 28 13 - 39 mg/dL 10/23/2024 10:23 EST [facility] Blood VENOUS BLOOD / Unknown 10/20/2024 13:10 EST 10/21/2024 21:58 EST us Provider Outr Resulting Lab CHEMISTRY & BLOOD GA S ORDERABLES Final Result Performing Organization Address [facility] Co de Phone Number [facility] [address] [place] [address] * (ABNORMAL) ANTI NUCLEAR AB (DEIDRE), IFA (10/20/2024 13:10 EST) Pathologist [facility] DEIDRE Interpretation Positive(A) Negative 10/23/2024 14:43 EST [facility] Comment: For titers [...] Pattern 1 1:160 Speckled 10/23/2024 14:43 EST [facility] Blood VENOUS BLOOD / Unknown 10/20/2024 13:10 EST 10/21/2024 21:58 EST Narrative [facility] - 10/23/2024 14:43 EST Results were obtained with the [employer] NOVA Lite HEp-2 DEIDRE Kit by indirect immunofluorescence. us Provider Outr Resulting Lab IMMUNOLOGY AND SEROL OGY ORDERABLES Final Result Performing Organization Address [facility] de Phone Number [facility] [address] [place] [phone] * (ABNORMAL) HCV RNA DETECT QUANT (10/06/2024 14:00 EST) HCV RNA Qualitative Detected( A) Undetected 10/09/2024 11:37 EST [facility] HCV RNA Quantitative 2,950,000 (H) Undetected IU/mL 10/09/2024 11:37 EST [facility] Blood VENOUS BLOOD / Unknown 10/06/2024 14:00 EST 10/07/2024 22:18 EST Narrative [facility] - 10/09/2024 11:37 EST The quantification range of this assay is 15 IU/mL to 100,000,000 IU/mL. Testing was performed using the Jaron HCV test ([employer] with the jaron [id number] System. us Provider Outr Resulting Lab CHEMISTRY & BLOOD GA S ORDERABLES Final Result Performing Organization Address [facility] Co de Phone Number [facility] [address] [place] [address] * ALBUMIN, URINE (10/16/2015) Microalb ug/mg Crea, External 312.7 [facility] Microalb mg/dl, External 84.7 [facility] Creatinine, Random U (UCRR), External 27.09 [facility] Urine specimen (specimen) 10/16/2015 Sharon Vargas MD CHEMISTRY & BLOOD GAS ORDERABL ES Edited Result - Final Performing Organization Address [facility] de Phone Number [facility] * HEMOGLOBIN A1C (05/28/2014) Hemoglobin A1C, External 8.7 [facility] Est Avg Glucose, External [facility] Blood specimen (specimen) 05/28/2014 us Sharon Vargas MD CHEMISTRY & BLOOD GAS ORDERABL ES Final Result Performing Organization Address [facility] de Phone Number [facility] from Last 3 Months or Most Recently Relevant to Health Maintenance Insurance [place]ID [place]ICARE Care Teams Designer Architect Relationship Specialty Start Date End Date Sharon Vargas MD [address] [place] [phone] PCP - General 09/09/15
--- OUTSIDE RECORDS SUMMARY | 2024-11-08 15:41 | XMS_ITS | Encounter Summary ---
Author Organization [facility] Address [address] [place] [address] Care Team Providers Care Cancer Registrar Name Role Phone Sharon Vargas MD Primary Care Provider [phone] Encounter Details Date Type Department Care Team (Late st Contact Info) Description 10/21/2024 Lab Requisition [facility] Pathology & Laboratory Medicine - [address] [address] Outr Resulting Lab, Provider Social History Tobacco [...] Info) Description 12/22/2024 14:45 EST Office Visit [facility] Ophthalmology [address] [address] Hung Harp MD 111 [facility], [address] [place] [phone] 03/28/2025 13:00 EDT Office Visit [address] [address] Consuelo Nicole MD [address] [place] [phone] documented as of this encounter Procedures Procedure Name Priority Date/Time Associated Diagnosis Comments C3 COMPLEMENT Routine 10/20/2024 13:10 EST C4 COMPLEMENT Routine 10/20/2024 13:10 EST ANTI NUCLEAR AB (DEIDRE), IFA Routine 10/20/2024 13:10 EST documented in this encounter Results * C3 COMPLEMENT (10/20/2024 13:10 EST) C3 Complement 151 81 - 157 mg/dL 10/23/2024 10:23 EST [facility] Blood VENOUS BLOOD / Unknown 10/20/2024 13:10 EST 10/21/2024 21:58 EST us Provider Outr Resulting Lab CHEMISTRY & BLOOD GA S ORDERABLES Final Result Performing Organization Address City/[facility]/ZIP Co de Phone Number [facility] [address] [place] [address] * C4 COMPLEMENT (10/20/2024 13:10 EST) C4 Complement 28 13 - 39 mg/dL 10/23/2024 10:23 EST [facility] Blood VENOUS BLOOD / Unknown 10/20/2024 13:10 EST 10/21/2024 21:58 EST us Provider Outr Resulting Lab CHEMISTRY & BLOOD GA S ORDERABLES Final Result [facility] [address] [place] [address] * (ABNORMAL) ANTI NUCLEAR AB (DEIDRE), IFA (10/20/2024 13:10 EST) Pathologist [facility] DEIDRE Interpretation Positive(A) Negative 10/23/2024 14:43 EST [facility] Comment: For titers greater than [...] Pattern 1 1:160 Speckled 10/23/2024 14:43 EST [facility] Blood VENOUS BLOOD / Unknown 10/20/2024 13:10 EST 10/21/2024 21:58 EST Narrative [facility] - 10/23/2024 14:43 EST Results were obtained with the [employer] NOVA Lite HEp-2 DEIDRE Kit by indirect immunofluorescence. us Provider Outr Resulting Lab IMMUNOLOGY AND SEROL OGY ORDERABLES Final Result Performing Organization Address City/State/[facility] Co de Phone Number [facility] [address] [place] [address] documented in this encounter Visit Diagnoses Not on filedocumented in this encounter Care Teams Cancer Registrar Relationship Specialty Start Date End Date Sharon Vargas MD [address] [place] [address] PCP - General 09/09/15 documented as of this encounter
--- OUTSIDE RECORDS SUMMARY | 2024-11-08 15:41 | XMS_ITS | Encounter Summary ---
Author Organization [facility] Address [address] [place] [address] Care Team Providers Care Marketing Mgr Name Role Phone Sharon Vargas MD Primary Care Provider [phone] Encounter Details Date Type Department Care Team (Late st Contact Info) Description 10/06/2024 Lab Requisition [facility] Pathology & Laboratory Medicine - [address] [address] Outr Resulting Lab, Provider Social History Tobacco [...] Info) Description 12/22/2024 14:45 EST Office Visit [facility] [address] [place], [place] [address] Hung Harp MD 111 [facility], [address] [place] [phone] 03/28/2025 13:00 EDT Office Visit [address] [address] Consuelo Nicole MD [address] [place] [phone] documented as of this encounter Visit Diagnoses Not on filedocumented in this encounter Care Teams Marketing Mgr Relationship Specialty Start Date End Date Sharon Vargas MD [address] [place] [phone] PCP - General 09/09/15 documented as of this encounter
--- OUTSIDE RECORDS SUMMARY | 2024-11-08 15:41 | XMS_ITS | Encounter Summary ---
Author Organization [facility] Address [address] [place] [address] Care Team Providers Care Grocery Clerk Marking Name Role Phone Sharon Vargas MD Primary Care Provider [phone] Reason for Visit * Reason Comments Eye Problem Encounter Details Date Type Department Care Team (Late st Contact Info) Description 03/16/2024 10:30 EDT Office Visit [facility] Ophthalmology - [address] [phone] Hung Harp MD 111 [facility], [address] [place] [address] Social History Tobacco Use Types [...] attached. Heme in all 4 quadrants. No alrieza Retina attached. Heme in all 4 quadrants. [...] mg bevacizumab Route: intravitreal, Site: Right [facility]: [address]-55, Lot: [id number], Expiration date: 03/17/2024 Post-op Post injection exam [...] edema, with long-term current use of insulin ([facility]) OCT, RETINA - OU - BOTH EYES [...] Info) Description 12/22/2024 14:45 EST Office Visit [facility] Ophthalmology [address] [phone] Hung Harp MD [address] [place] [address], [address] [place] [phone] 03/28/2025 13:00 EDT Office Visit [address] [address] Consuelo Nicole MD [address] [place] [phone] documented as of this encounter Procedures Procedure Name Priority Date/Time Associated Diagnosis Comments OCT, RETINA - OU - BOTH EYES Routine 03/16/2024 12:13 EDT Type 2 diabetes mellitus with both eyes affected by moderate nonproliferative retinopathy and macular edema, with long-term current use of insulin ([facility]) INTRAVITREAL INJECTION, PHARMACOLOGIC AGENT - OD - RIGHT EYE Routine 03/16/2024 12:04 EDT Type 2 diabetes mellitus with both eyes affected by moderate nonproliferative retinopathy and macular edema, with long-term current use of insulin ([facility]) documented in this encounter Results * OCT, RETINA - OU - BOTH EYES (03/16/2024 12:13 EDT) Narrative [facility] OPHTHALMOLOG[facility] - 03/16/2024 12:13 EDT Right Eye Quality was poor. Scan locations included juxtafoveal. Progression has improved. Findings include intraretinal fluid. Left Eye Quality was poor. Progression has been stable. Findings include normal foveal contour. Notes Some inner retinal atrophy both eyes Trace intraretinal fluid both eyes OCT-A enlarged CJ left eye (poor signal right eye Hung Harp MD OPH TOMOGRAPHY Edited Result - Final Performing Organization Address [facility] Co de Phone Number [facility] * INTRAVITREAL INJECTION, PHARMACOLOGIC AGENT - OD - RIGHT EYE (03/16/2024 12:04 EDT) Narrative [facility] - 03/16/2024 12:13 EDT Time Out 03/16/2024. 11:56. Confirmed correct patient, procedure, site, and patient consented. Anesthesia Topical anesthesia was used. Anesthetic medications included Proparacaine 0.5%, Tetracaine 0.5%. Procedure Preparation included 5% betadine to ocular surface, eyelid speculum. A 30 gauge needle was used. Injection: 1.25 mg bevacizumab ??Route: intravitreal, Site: Right Eye [facility]: [address]-07, Lot: [id number], Expiration date: 03/17/2024 Post-op Post injection exam found visual acuity of at least counting fingers. The patient tolerated the procedure well. There were no complications. The patient received written and verbal post procedure care education. Post injection medications were not given. Hung Harp MD OPHTH CLINIC PROCEDURES Final Re sult Performing Organization Address [facility] Co de Phone Number [facility] documented in this encounter Visit Diagnoses Diagnosis Type 2 diabetes mellitus with both eyes affected by moderate nonproliferative retinopathy and macular edema, with long-term current use of insulin ([facility])- Primary Combined forms of age-related cataract of [...] edema, with long-term current use of insulin ([facility]) Given 03/16/2024 12:13 EDT 1.25 mg Ri [...] all 4 quadrants. No alireza Care Teams Grocery Clerk Marking Relationship Specialty Start Date End Date Sharon Vargas MD [address] [place] [phone] PCP - General 09/09/15 documented as of this encounter
--- OUTSIDE RECORDS SUMMARY | 2024-11-08 15:41 | XMS_ITS | Encounter Summary ---
Author Organization [facility] Address [address] [place] [address] Care Team Providers Care Hazardous Material Technician Name Role Phone Sharon Vargas MD Primary Care Provider Reason for Visit * Reason Onset Date Comments Follow-up 12/29/2023 Encounter Details Date Type Department Care Team (Late st Contact Info) Description 12/29/[address] [address] Verna Cerna COA Follow-up Social History Tobacco [...] 12/22/2024 14:45 EST Office Visit [facility] Ophthalmology - [facility] [address] [place] [address] Hung Harp MD [address] [facility], [address] [place] [address] 03/28/2025 13:00 EDT Office Visit [facility] Ophthalmology [facility] [address] [place] [address] Consuelo Nicole MD [address] [place] [phone] documented as of this encounter Visit Diagnoses Not on filedocumented in this encounter Care Teams Hazardous Material Technician Relationship Specialty Start Date End Date Sharon Vargas MD [address] [place] [phone] PCP - General 09/09/15 documented as of this encounter
--- OUTSIDE RECORDS SUMMARY | 2024-11-08 15:41 | XMS_ITS | Encounter Summary ---
Author Organization [facility] Address [address] [place] [address] Care Team Providers Care Rhit Name Role Phone Sharon Vargas MD Primary Care Provider [phone] Reason for Visit * Reason Comments Eye Problem * Prior Authorization (Routine) - Authorized Specialty Diagnoses / Procedures Referred By Johnnie eugene Referred To Contact Diagnoses Diabetic macular edema (HCC-CMS) Procedures ND INTRAVITREAL NJX PHARMACOLOGIC AGT SPX ND AFLIBERCEPT INJECTION ND BEVACIZUMAB INJECTION [address] [address] Phone: tel: fax: [address] [address] Phone: tel: fax: Referral ID Status Reason Start Date Expiration Date V isits Requested Visits Authorized [id number] Authorized 2 2 Encounter Details Date Type Department Care Team (Late st Contact Info) Description 02/11/2024 14:00 EDT Office Visit [address] [phone] Hung Harp MD [address] [place] [address], [facility] [address] [place] [address] Social History Tobacco Use Types [...] edema, with long-term current use of insulin ([facility]) OCT, RETINA - OU [...] Info) Description 12/22/2024 14:45 EST Office Visit [facility] Ophthalmology [address] [phone] Hung Harp MD [address] [place] [address], Level [address] [place] [phone] 03/28/2025 13:00 EDT Office Visit [facility] Ophthalmology [address] [address] Consuelo Nicole MD [address] [place] [phone] documented as of this encounter Procedures Procedure Name Priority Date/Time Associated Diagnosis Comments OCT, RETINA - OU - BOTH EYES Routine 02/11/2024 14:36 EDT Type 2 diabetes mellitus with both eyes affected by moderate nonproliferative retinopathy without macular edema, with long-term current use of insulin ([facility]) documented in this encounter Results * OCT, RETINA - OU - BOTH EYES (02/11/2024 14:36 EDT) Narrative [facility] OPHTHALMOLOGY - 02/11/2024 16:43 EDT Right Eye Quality was poor. Scan locations included juxtafoveal. Progression has improved. Findings include intraretinal fluid. Left Eye Quality was borderline. Progression has been stable. Findings include normal foveal contour. Notes Some inner retinal atrophy both eyes OCT-A enlarged CJ left eye (poor signal right eye Hung Harp MD OPHTH TOMOGRAPHY Final Result [facility] OPHTHALMOLOGY documented in this encounter Visit Diagnoses Diagnosis Type 2 diabetes mellitus with both eyes affected by moderate nonproliferative retinopathy without macular edema, with long-term current use of insulin ([facility])- Primary Combined forms of age-related cataract [...] all 4 quadrants. No alireza Care Teams Rhit Relationship Specialty Start Date End Date Sharon Vargas MD [address] [place] [address] PCP - General 09/09/15 documented as of this encounter
--- OUTSIDE RECORDS SUMMARY | 2024-11-08 15:41 | XMS_ITS | Referral Summary ---
Author Organization [facility] Address [address] [place] [address] Care Team Providers Care Aircraft Servicer Name Role Phone Sharon Vargas MD Primary Care Provider Encounters Date Type Department Care Team Description 10/27/2024 14:15 EST Office Visit [facility] Ophthalmology [facility] [address] [place] [address] Consuelo Nicole MD 10/21/2024 Lab Requisition [facility] Pathology & Laboratory [address] [address] Outr Resulting Lab, Provider 10/21/2024 Lab Requisition [facility] Pathology & Laboratory [address] [address] Outr Resulting Lab, Provider 10/20/2024 Telephone [facility] Nephrology - [address] [phone] Cherrie Fam MD Appointment Related; Follow-up 10/20/2024 Telephone [facility] NEPHROLOGY [address] [place] [address] Cherrie Fam MD Follow-up 10/07/2024 Lab Requisition [facility] Pathology & Laboratory [address] [address] Outr Resulting Lab, Provider 10/06/2024 Lab Requisition [facility] Pathology Laboratory [address] [address] Outr Resulting Lab, Provider from Last 3 [...] Info) Description 12/22/2024 14:45 EST Office Visit [facility] Ophthalmology - [facility] [address] [place], [place] [address] Hung Harp MD 111 [facility], [facility] [address] [place] [address] 03/28/2025 13:00 EDT Office Visit [facility] Ophthalmology [address] [address] Consuelo Nicole MD [address] [place] [phone] Procedures Procedure Name Priority Date/Time Associated Diagnosis Comments OCT, RETINA - OU - BOTH EYES Routine 10/27/2024 16:51 EST Type 2 diabetes mellitus with both eyes affected by moderate nonproliferative retinopathy and macular edema, with long-term current use of insulin ([facility]) HOLD SST Today 10/20/2024 13:10 EST C3 COMPLEMENT Routine 10/20/2024 13:10 EST C4 COMPLEMENT Routine 10/20/2024 13:10 EST ANTI NUCLEAR AB (DEIDRE), IFA Routine 10/20/2024 13:10 EST HEPATITIS B CORE ANTIBODY (TOTAL) Today 10/20/2024 13:10 EST HEPATITIS B SURFACE ANTIGEN Today 10/20/2024 13:10 EST HEPATITIS A TOTAL ANTIBODY W REFLEX Today 10/20/2024 13:10 EST HCV RNA DETECT QUANT Routine 10/06/2024 14:00 EST URINE [id number] INE RATIO (ACR) Routine 10/16/2015 HEMOGLOBIN A1C Routine 05/28/2014 from Last 3 Months or Most Recently Relevant to Health Maintenance Results * OCT, RETINA - OU - BOTH EYES (10/27/2024 16:51 EST) Narrative [facility] OPHTHALMOLOGY - 10/27/2024 16:51 EST OCT macula Right: signal strength: 2/10, thickness 107 microns, normal foveal contour, no intra/subretinal fluid Left: signal strength: 2/10, thickness ??microns, normal foveal contour, no intra/subretinal fluid us Consuelo Nicole MD OPHTH TOMOGRAPHY Final Resu lt [facility] OPHTHALMOLOGY * HOLD SST (10/20/2024 13:10 EST) Hold Hold 10/21/2024 23:01 EST [facility] Blood VENOUS BLOOD / Unknown 10/20/2024 13:10 EST 10/21/2024 21:55 EST us Provider Outr Resulting Lab LAB INFO SERVICE AND SUPPORT & PHONE RESULT Final Result [facility] [address] [place] [address] * HEPATITIS A TOTAL ANTIBODY W REFLEX (10/20/2024 13:10 EST) Hepatitis A Antibody, Total Negative Negative 10/23/2024 11:22 EST [facility] Blood VENOUS BLOOD / Unknown 10/20/2024 13:10 EST 10/21/2024 21:55 EST Narrative [facility] - 10/23/2024 11:22 EST The result of this assay can be falsely elevated (Positive) due to the consumption of Biotin. us Provider Outr Resulting Lab CHEMISTRY & BLOOD GA S ORDERABLES Final Result Performing Organization Address City/[facility]/ZIP Co de Phone Number [facility] [address] [place] [address] * HEPATITIS B CORE ANTIBODY (TOTAL) (10/20/2024 13:10 EST) Hepatitis B Core Ab, Total Negative Negative 10/23/2024 11:41 EST [facility] Blood VENOUS BLOOD / Unknown 10/20/2024 13:10 EST 10/21/2024 21:55 EST us Provider Outr Resulting Lab CHEMISTRY & BLOOD GA S ORDERABLES Final Result Performing Organization Address [facility] [[email or web address]] Co de Phone Number [facility] [address] [place] [address] * HEPATITIS B SURFACE ANTIGEN (10/20/2024 13:10 EST) Hep B Surface Ag Negative Negative 10/23/2024 10:42 EST [facility] Blood VENOUS BLOOD / Unknown 10/20/2024 13:10 EST 10/21/2024 21:55 EST us Provider Outr Resulting Lab CHEMISTRY & BLOOD GA S ORDERABLES Final Result Performing Organization Address City/[facility]/ZIP Co de Phone Number [facility] [address] [place] [address] * C3 COMPLEMENT (10/20/2024 13:10 EST) C3 Complement 151 81 - 157 mg/dL 10/23/2024 10:23 EST [facility] Blood VENOUS BLOOD / Unknown 10/20/2024 13:10 EST 10/21/2024 21:58 EST us Provider Outr Resulting Lab CHEMISTRY & BLOOD GA S ORDERABLES Final Result Performing Organization Address City/[facility]/ZIP Co de Phone Number [facility] [address] [place] [address] * C4 COMPLEMENT (10/20/2024 13:10 EST) C4 Complement 28 13 - 39 mg/dL 10/23/2024 10:23 EST [facility] Blood VENOUS BLOOD / Unknown 10/20/2024 13:10 EST 10/21/2024 21:58 EST us Provider Outr Resulting Lab CHEMISTRY & BLOOD GA S ORDERABLES Final Result Performing Organization Address [facility] de Phone Number [facility] [address] [place] [address] * (ABNORMAL) ANTI NUCLEAR AB (DEIDRE), IFA (10/20/2024 13:10 EST) Pathologist [facility] DEIDRE Interpretation Positive(A) Negative 10/23/2024 14:43 EST [facility] Comment: For titers greater than [...] Pattern 1 1:160 Speckled 10/23/2024 14:43 EST [facility] Blood VENOUS BLOOD / Unknown 10/20/2024 13:10 EST 10/21/2024 21:58 EST Narrative [facility] - 10/23/2024 14:43 EST Results were obtained with the impok NOVA Lite HEp-2 DEIDRE Kit by indirect immunofluorescence. us Provider Outr Resulting Lab IMMUNOLOGY AND SEROL OGY ORDERABLES Final Result Performing Organization Address City/[facility]/ZIP Co de Phone Number [facility] [address] [place] [address] * (ABNORMAL) HCV RNA DETECT QUANT (10/06/2024 14:00 EST) HCV RNA Qualitative Detected( A) Undetected 10/09/2024 11:37 EST [facility] HCV RNA Quantitative 2,950,000 (H) Undetected IU/mL 10/09/2024 11:37 EST [facility] Blood VENOUS BLOOD / Unknown 10/06/2024 14:00 EST 10/07/2024 22:18 EST Narrative [facility] - 10/09/2024 11:37 EST The quantification range of this assay is 15 IU/mL to 100,000,000 IU/mL. Testing was performed using the Jaron HCV test ([employer] with the jaron varinode0 System. us Provider Outr Resulting Lab CHEMISTRY & BLOOD GA S ORDERABLES Final Result Performing Organization Address [facility]/ZIP Co de Phone Number [facility] [address] [place] [address] * ALBUMIN, URINE (10/16/2015) Microalb ug/mg Crea, External 312.7 [facility] Microalb mg/dl, External 84.7 [facility] Creatinine, Random U (UCRR), External 27.09 [facility] Urine specimen (specimen) 10/16/2015 Sharon Vargas MD CHEMISTRY & BLOOD GAS ORDERABL ES Edited Result - Final Performing Organization Address [facility]/ZIP Co de Phone Number [facility] * HEMOGLOBIN A1C (05/28/2014) Hemoglobin A1C, External 8.7 [facility] Est Avg Glucose, External [facility] Blood specimen (specimen) 05/28/2014 us Sharon Vargas MD CHEMISTRY & BLOOD GAS ORDERABL ES Final Result [facility] from Last 3 Months or Most Recently Relevant to Health Maintenance Insurance [place] Member Subscriber Plan / Payer (Ef fective 2023-Present) Name:Lea aVsquez Relation to Subscriber:Self Name:Lea Vasquez Payer ID:Not on file Group ID:Not on file Type:Medicaid [place] GL Address: [place] [id number] MEDICARE Care Teams Aircraft Servicer Relationship Specialty Start Date End Date Sharon Vargas MD [address] [place] [address] PCP - General 09/09/15
--- OUTSIDE RECORDS SUMMARY | 2024-11-08 15:41 | XMS_ITS | Encounter Summary ---
Author Organization [facility] Address [address] [place] [address] Care Team Providers Care Ui Developer Designer Name Role Phone Sharon Vargas MD Primary Care Provider [phone] Encounter Details Date Type Department Care Team (Late st Contact Info) Description 02/24/2024 Orders Only [facility] Ophthalmology [facility] [address] [place], [place] [phone] Consuelo Nicole MD [address] [place] [address] Combined forms of age-related cataract of right [...] Info) Description 12/22/2024 14:45 EST Office Visit [facility] Ophthalmology [facility] [address] [place], [place] [address] Hung Harp MD [address] [facility], Level [address] [place] [address] 03/28/2025 13:00 EDT Office Visit [facility] [address] [place], [place] [address] Consuelo Nicole MD [address] [place] [address] documented as of this encounter Visit Diagnoses Diagnosis Combined forms of age-related cataract of right eye- Primary Other and combined forms of senile cataract documented in this encounter Care Teams Ui Developer Designer Relationship Specialty Start Date End Date Sharon Vargas MD [address] [place] [phone] PCP - General 09/09/15 documented as of this encounter
--- OUTSIDE RECORDS SUMMARY | 2024-11-08 15:41 | XMS_ITS | Encounter Summary ---
Author Organization [facility] Address [address] [place] [address] Care Team Providers Care Inspector And Mender Name Role Phone Sharon Vargas MD Primary Care Provider [phone] Reason for Visit * Reason Onset Date Comments Follow-up 10/20/2024 Encounter Details Date Type Department Care Team (Late st Contact Info) Description 10/20/2024 Telephone [facility] NEPHROLOGY [address] [place], [place] [phone] Cherrie Fam MD [address] [place] [address], [address] [place] [phone] Follow-up Social History Tobacco Use Types Packs/Day [...] Encounter - Cherrie Fam MD - 10/20/2024 9488 EST Phone conversation with primary care provider at [facility]. Worsened kidney failure after 18 months' testing. Past medical history include chronic kidney disease, chronic Hepatitis C, cirrhosis, poorly controlled diabetes mellitus and proteinuria who was treated at [facility] recently and labs showed creatinine of [...] Info) Description 12/22/2024 14:45 EST Office Visit [address] [phone] Hung Harp MD [address] [place] [address], Level [address] [place] [phone] 03/28/2025 13:00 EDT Office Visit [address] [phone] Consuelo Nicole MD [address] [place] [phone] documented as of this encounter Visit Diagnoses Not on filedocumented in this encounter Care Teams Inspector And Mender Relationship Specialty Start Date End Date Sharon Vargas MD [address] [facility] [place] [phone] PCP - General 09/09/15 documented as of this encounter
--- OUTSIDE RECORDS SUMMARY | 2024-11-08 15:41 | XMS_ITS | Encounter Summary ---
Author Organization [facility] Address [address] [place] [address] Care Team Providers Care Wire Coiler Name Role Phone Sharon Vargas MD Primary Care Provider [phone] Encounter Details Date Type Department Care Team (Late st Contact Info) Description 10/21/2024 Lab Requisition [facility] Pathology & Laboratory Medicine - [address] [address] Outr Resulting Lab, Provider Social History Tobacco [...] Info) Description 12/22/2024 14:45 EST Office Visit [facility] Ophthalmology [address] [phone] Hung Harp MD 111 [facility], Level [address] [place] [phone] 03/28/2025 13:00 EDT Office Visit [address] [address] Cosnuelo Nicole MD [address] [place] [phone] documented as of this encounter Procedures Procedure Name Priority Date/Time Associated Diagnosis Comments HOLD SST Today 10/20/2024 13:10 EST HEPATITIS A TOTAL ANTIBODY W REFLEX Today 10/20/2024 13:10 EST HEPATITIS B CORE ANTIBODY (TOTAL) Today 10/20/2024 13:10 EST HEPATITIS B SURFACE ANTIGEN Today 10/20/2024 13:10 EST documented in this encounter Results * HOLD SST (10/20/2024 13:10 EST) Hold Hold 10/21/2024 23:01 EST [facility] Blood VENOUS BLOOD / Unknown 10/20/2024 13:10 EST 10/21/2024 21:55 EST us Provider Outr Resulting Lab LAB INFO SERVICE AND SUPPORT & PHONE RESULT Final Result Performing Organization Address City/[facility]/ZIP Co de Phone Number [facility] [address] [place] [address] * HEPATITIS B CORE ANTIBODY (TOTAL) (10/20/2024 13:10 EST) Hepatitis B Core Ab, Total Negative Negative 10/23/2024 11:41 EST [facility] Blood VENOUS BLOOD / Unknown 10/20/2024 13:10 EST 10/21/2024 21:55 EST us Provider Outr Resulting Lab CHEMISTRY & BLOOD GA S ORDERABLES Final Result Performing Organization Address City/[facility]/ZIP Co de Phone Number [facility] [address] [place] [address] * HEPATITIS B SURFACE ANTIGEN (10/20/2024 13:10 EST) Hep B Surface Ag Negative Negative 10/23/2024 10:42 EST [facility] Blood VENOUS BLOOD / Unknown 10/20/2024 13:10 EST 10/21/2024 21:55 EST Provider Outr Resulting Lab CHEMISTRY & BLOOD GA S ORDERABLES Final Result Performing Organization Address [facility] Co de Phone Number [facility] [address] [place], [place] [phone] * HEPATITIS A TOTAL ANTIBODY W REFLEX (10/20/2024 13:10 EST) Hepatitis A Antibody, Total Negative Negative 10/23/2024 11:22 EST [facility] Blood VENOUS BLOOD / Unknown 10/20/2024 13:10 EST 10/21/2024 21:55 EST Narrative [facility] - 10/23/2024 11:22 EST The result of this assay can be falsely elevated (Positive) due to the consumption of Biotin. Provider Outr Resulting Lab CHEMISTRY & BLOOD GA S ORDERABLES Final Result Performing Organization Address [facility] de Phone Number [facility] [address] [place], [place] [phone] documented in this encounter Visit Diagnoses Not on filedocumented in this encounter Care Teams Wire Coiler Relationship Specialty Start Date End Date Sharon Vargas MD [address] [place] [address] PCP - General 09/09/15 documented as of this encounter
--- OUTSIDE RECORDS SUMMARY | 2024-11-08 15:41 | XMS_ITS | Encounter Summary ---
Author Organization [facility] Address [address] [place] [address] Care Team Providers Care Predatory Animal Hunter Name Role Phone Sharon Henderson MD Primary Care Provider [phone] Reason for Visit * Reason Onset Date Comments Appointment Related 10/20/2024 Follow-up 10/20/2024 Encounter Details Date Type Department Care Team (Late st Contact Info) Description 10/20/2024 Telephone [facility] Nephrology - [address] [phone] Cherrie Fam MD [address] [place] [address], Level [address] [place] [phone] Appointment Related; Follow-up Social History Tobacco Use Types Packs/Day [...] Telephone Encounter - Cherrie Fam MD - 11/03/2024 4057 EST Summary of progress note dated 10/19/2024: 10/19/2024text/htmlCC: f/u hospitalization for acute renal failure The patient, Lea, presents for a follow-up visit after hospitalization for acute renal failure.She has a history of proteinuria secondary to diabetes and hypertension. She was referred for admission after routine labs showed a rise in creatinine from 1.3-6.2 over a year and a half. She reportsseveral days of vomiting last month but otherwise was feeling well at the time of her admission. Today, 8 days post d/c, she feels worse, with significant fatigue and anorexia, as well as dyspnea andwheezing. She has some localized itching in her upper back. She denies vomiting and reports normal urinary pattern. No fever or purulent sputum. Several of Lea's medications, including valsartan, hydrochlorothiazide, and metformin, were held during her hospitalization (and since). Her long-acting insulin dosage was reduced to 20 units andeventually held completely. She was also treated with [...] for Trelegy or Ellipta. She continues on hermethadone, amitriptyline, amlodipine, aspirin, atorvastatin, omeprazole, and escitalopram. The patient's potassium levels remained normal during her hospital stay, and she has anemia of chronic kidney disease. her blood pressure today is significantly higher than it was during her hospitalization, measuring 178/82. Repeat check is 158/82SHARON HENDERSON MD [address], [place], [address], [facility].10/19/2024 17:05:17 * Telephone Encounter - Gildardo Shay - 10/24/2024 7628 EST 3rd attempt to schedule no answer [...] Info) Description 12/22/2024 14:45 EST Office Visit [facility] Ophthalmology [facility] [address] [place], [place] [address] Hung Harp MD 111 [facility], [facility] [address] [place] [phone] 03/28/2025 13:00 EDT Office Visit [facility] [address] [place], [place] [address] Consuelo Nicole MD [address] [place] [phone] documented as of this encounter Visit Diagnoses Not on filedocumented in this encounter Care Teams Predatory Animal Hunter Relationship Specialty Start Date End Date Sharon Henderson MD [address] [place] [phone] PCP - General 09/09/15 documented as of this encounter
--- OUTSIDE RECORDS SUMMARY | 2024-11-08 15:42 | XMS_ITS | Encounter Summary ---
Author Organization [facility] Address [address] [place] [address] Care Team Providers Care Asphalt Machine Operator Name Role Phone Sharon Vargas MD Primary Care Provider [phone] Encounter Details Date Type Department Care Team (Late st Contact Info) Description 06/26/2021 Lab Requisition [facility] Pathology & Laboratory Medicine - [address] [address] Outr Resulting Lab, Provider Social History Tobacco [...] Description 12/22/2024 14:45 EST Office Visit [facility] Ophthalmology [address] [phone] Hung Harp MD [address] [place] [address], Level [address] [place] [phone] 03/28/2025 13:00 EDT Office Visit [address] [address] Consuelo Nicole MD [address] [place] [phone] documented as of this encounter Procedures Procedure Name Priority Date/Time Associated Diagnosis Comments ZZCOVID-19 TEST [facility] PCR Today 06/25/2021 16:45 EDT COVID-19 TESTING Routine 06/25/2021 16:4 5 EDT documented in this encounter Results * COVID-19 TEST [facility] PCR (06/25/2021 16:45 EDT) Swab ENTIRE NASOPHARYNX / Unknown 06/25/2021 16:45 EDT 06/26/2021 16:08 EDT us Provider Outr Resulting Lab MICROBIOLOGY - GENER AL ORDERABLES Final Result [facility] [address] [place] [address] * COVID-19 TESTING (06/25/2021 16:45 EDT) COVID-19 rt-PCR Result Negative Negative 06/27/2021 11:08 EDT [facility] Comment: This test has [...] was performed using the jaron SARS-CoV-2 assay ([employer] on the Jaron 6800 System Performing Lab Jaron 6800 [facility] 06/27/2021 11:08 EDT [facility] Swab 06/25/2021 16:4 5 EDT 06/26/2021 16:08 EDT us Provider Outr Resulting Lab MICROBIOLOGY - GENER AL ORDERABLES Final Result [facility] [address] [place] [address] documented in this encounter Visit Diagnoses Not on filedocumented in this encounter Care Teams Asphalt Machine Operator Relationship Specialty Start Date End Date Sharon Vargas MD [address] [place] [phone] PCP - General 09/09/15 documented as of this encounter
--- OUTSIDE RECORDS SUMMARY | 2024-11-08 15:42 | XMS_ITS | Encounter Summary ---
Author Organization [facility] Address [address] [place] [address] Care Team Providers Care Microfilmer Name Role Phone Unavailable Primary Care Provider Unavailabl e Encounter Details Date Type Department Care Team (Latest Contact Info) Description 04/03/2003 19:00 EDT Hospital Encounter [facility] Emergency Department - [address] 319281 Emergency, MD Nickie Discharge Disposition: Home or Self Care Social [...] Info) Description 12/22/2024 14:45 EST Office Visit [facility] Ophthalmology [address] [phone] Hung Harp MD 111 [facility], Level 5 [place] [phone] 03/28/2025 13:00 EDT Office Visit [address] 952271 Consuelo Nicole MD [address] [place] [phone] documented as of this encounter Procedures Procedure [...] ? LEA MCGOWAN ? Accession #: ? [id number] ? : ? 1975 (Age: 34) ??F ?Collect Date: ? 06/26/2009 ? Location: ? [facility] ? Receive Date: ? 06/28/2009 ? Provider: ?SHARON HENDERSON MD ? Copy to: ? Specimen/Source: ?Pap Test, Cervix/Endocervix, ThinPrep Imaging System ? with manual evaluation ? Last Menstrual Period: ? SPECIMEN ADEQUACY ? Satisfactory for Evaluation ? - transformation zone component present ? GENERAL CATEGORIZATION ? Negative for Intraepithelial Lesion or Malignancy ? Document reviewed and electronically signed by: ? Marie [place], [place](ASCP) ? Report Date: ??07/03/2009 14:12 ? End of Report ? NATHAN S[facility] 06/26/2009 06/28/2009 us Sharon Henderson MD PATHOLOGY ORDERABLES Final Res ult [facility] [address] [place] [address] documented in this encounter Visit Diagnoses Not on filedocumented in this encounter
--- OUTSIDE RECORDS SUMMARY | 2024-11-08 15:42 | XMS_ITS | Encounter Summary ---
Author Organization [facility] Address [address] [place] [address] Care Team Providers Care Roofing Machine Tender Name Role Phone Sharon Vargas MD Primary Care Provider [phone] Encounter Details Date Type Department Care Team (Late st Contact Info) Description 01/02/2023 Lab Requisition [facility] Pathology & Laboratory Medicine - [address] [address] Outr Resulting Lab, Provider Social History Tobacco [...] 12/22/2024 14:45 EST Office Visit [facility] Ophthalmology [address] 119561 Hung Harp MD [address] [place] [address], Level [address] [place] [phone] 03/28/2025 13:00 EDT Office Visit [address] 754471 Consuelo Nicole MD [address] [place] [phone] documented as of this encounter Procedures Procedure Name Priority Date/Time Associated Diagnosis Comments HCV RNA DETECT QUANT Today 01/01/2023 11:40 EDT HEPATITIS C AB W REFLEX TO HCV RNA BY PCR Routine 01/01/2023 11:40 EDT documented in this encounter Results * (ABNORMAL) HCV RNA DETECT QUANT (01/01/2023 11:40 EDT) [facility] HCV RNA Qualitative Detected( A) Undetected 01/04/2023 12:46 EDT [facility] HCV RNA Quantitative 3,370,000 (H) Undetected IU/mL 01/04/2023 12:46 EDT [facility] Blood VENOUS BLOOD / Unknown 01/01/2023 11:40 EDT 2023 15:59 EDT Narrative [facility] - 01/04/2023 12:46 EDT The quantification range of this assay is 15 IU/mL to 100,000,000 IU/mL. Testing was performed using the Jaron HCV test ([employer] with the [employer]aron [employer] System. us Provider Outr Resulting Lab CHEMISTRY & BLOOD GA S ORDERABLES Final Result Performing Organization Address [facility] Co de Phone Number [facility] [address] [place] [phone] * (ABNORMAL) HEPATITIS C AB W REFLEX TO HCV RNA BY PCR (01/01/2023 11:40 EDT) Pathologist [facility] Hep C Antibody Reactive(A ) Negative 01/04/2023 10:01 EDT [facility] Comment: Supplemental testing for HCV RNA is ordered to rule out active HCV infection. Blood VENOUS BLOOD / Unknown 01/01/2023 11:40 EDT 2023 15:59 EDT us Provider Outr Resulting Lab CHEMISTRY & BLOOD GA S ORDERABLES Final Result Performing Organization Address City/[facility]/ZIP Co de Phone Number [facility] [address] [place] [address] documented in this encounter Visit Diagnoses Not on filedocumented in this encounter Care Teams Roofing Machine Tender Relationship Specialty Start Date End Date Sharon Vargas MD [address] [place] [phone] PCP - General 09/09/15 documented as of this encounter
--- OUTSIDE RECORDS SUMMARY | 2024-11-08 15:42 | XMS_ITS | Encounter Summary ---
Author Organization [facility] Address [address] [place] [address] Care Team Providers Care Thread Checker Name Role Phone Unavailable Primary Care Provider Unavailabl e Encounter Details Date Type Department Care Team (Late st Contact Info) Description 09/11/2002 Results Only [facility] conversion [address] [place] [address] Penny Vaughan, EKATERINA [address] [place] [address] Social History Tobacco Use Types [...] Info) Description 12/22/2024 14:45 EST Office Visit [facility] [address] [place] [address] Hung Harp MD 111 [facility], Level 5 [place] [phone] 03/28/2025 13:00 EDT Office Visit [facility] [address] [place] [address] Consuelo Nicole MD [address] [place] [phone] documented as of this encounter Procedures Procedure [...] ? LEA MCGOWAN ? Accession #: ? [id number] : ? 1975 (Age: 27) ??F ?Collect [...] Document reviewed and electronically signed by: ? MANISHA Lao(ASCP) ? Report Date: ??09/19/2002 08:11 End of Report [facility] 09/11/2002 09/13/2002 us Francis Brodzinski MILL BEAM FITTER PATHOLOGY ORDERABLES Final R esult [facility] [address] [place] [address] documented in this encounter Visit Diagnoses Not on filedocumented in this encounter
--- OUTSIDE RECORDS SUMMARY | 2024-11-08 15:42 | XMS_ITS | Encounter Summary ---
Author Organization [facility] Address [address] [place] [address] Care Team Providers Care Programming Director Name Role Phone Unavailable Primary Care Provider Unavailabl e Encounter Details Date Type Department Care Team (Late st Contact Info) Description 04/29/2001 Results Only [facility] conversion [address] [place] [address] [place] [address] Social History Tobacco Use Types Packs/Day Years [...] Info) Description 12/22/2024 14:45 EST Office Visit [facility] [address] [place] [address] Hung Harp MD 111 [facility], [address] [place] [phone] 03/28/2025 13:00 EDT Office Visit [address] 208581 Consuelo Nicole MD [address] [place] [phone] documented as of this encounter Procedures Procedure [...] ? LEA MCGOWAN ? Accession #: ? [id number] : ? 1975 (Age: 26) ??F ?Collect Date: ? 04/29/2001 Location: ? [facility] ? Receive Date: ? 05/04/2001 Provider: ?LIZBETH WILD [facility] Copy to: ? Specimen/Source: ?Conventional Pap Test, [...] electronically signed by: ? QUINCY GUALLPA MD [facility] ? Report Date: ??05/06/2001 17:41 End of Report [facility] 04/29/2001 05/04/2001 us Lizbeth Wild CNM PATHOLOGY ORDERABLES Final Res ult [facility] [address] [place] [address] documented in this encounter Visit Diagnoses Not on filedocumented in this encounter
--- OUTSIDE RECORDS SUMMARY | 2024-11-08 15:42 | XMS_ITS | Encounter Summary ---
Author Organization [facility] Address [address] [place] [address] Care Team Providers Care Automotive Parts Counter Associate Name Role Phone Sharon Henderson MD Primary Care Provider [phone] Encounter Details Date Type Department Care Team (Late st Contact Info) Description 10/19/2018 Results Only [facility] [phone] Sharon Henderson MD [address] [place] [address] Social History Tobacco Use Types [...] Info) Description 12/22/2024 14:45 EST Office Visit [facility] [address] [place], [place] [address]381 Hung Harp MD 111 [facility], Level 5 [place] [phone] 03/28/2025 13:[address] [facility] [address] [place], [place] [address] Consuelo Nicole MD [address] [place] [phone] documented as of this encounter Procedures Procedure [...] signed by: ? MANISHA Lao(ASCP) ? Report ??Date: 10/27/2018 09:21 HPV with Pap Test ? Date Ordered: ? 10/27/2018 ? Status: ?? Signed Out ?Date Complete: ? 10/28/2018 ? By: ??System Interface ? Date Reported: ? 10/28/2018 ? Interpretation RESULT: Negative for HPV. No E6 or E7 mRNA is detected from HPV types 16,18,31,33,35, 39,45,51,52,56,58, 59,66, and 68 by fire fighter crash fire and rescue mediated amplification. Comments Document reviewed and electronically signed by: ? System Interface ? Report date: 10/28/2018 By the signature above, the attending physician certifies that he/she has personally conducted a gross and/or microscopic examination of the described specimens and rendered or confirmed the above diagnosis. End of Report [facility] 10/19/2018 10/21/2018 us Sharon Henderson MD PATHOLOGY ORDERABLES Final Res ult Performing Organization Address City/State/[facility] Co de Phone Number [facility] [address] [place] [address] documented in this encounter Visit Diagnoses Not on filedocumented in this encounter Care Teams Automotive Parts Counter Associate Relationship Specialty Start Date End Date Sharon Henderson MD [address] [place] [phone] PCP - General 09/09/15 documented as of this encounter
--- OUTSIDE RECORDS SUMMARY | 2024-11-08 15:42 | XMS_ITS | Encounter Summary ---
Author Organization [facility] Address [address] [place] [address] Care Team Providers Care Balling Head Tender Name Role Phone Sharon Vargas MD Primary Care Provider Encounter Details Date Type Department Care Team (Late st Contact Info) Description 04/01/2022 Lab Requisition [facility] Pathology & Laboratory Medicine - [address] [address] Outr Resulting Lab, Provider Social History Tobacco [...] Info) Description 12/22/2024 14:45 EST Office Visit [facility] Ophthalmology [address] 353171 Hung Harp MD [address] [place] [address], Level [address] [place] [phone] 03/28/2025 13:00 EDT Office Visit [address] 770821 Consuelo Nicole MD [address] [place] [phone] documented as of this encounter Procedures Procedure Name Priority Date/Time Associated Diagnosis Comments GGT Routine 04/01/2022 14:29 EDT documented in this encounter Results * (ABNORMAL) GGT (04/01/2022 14:29 EDT) GGT 224(H) <44 U/L 04/01/2022 21:22 EDT [facility] Blood VENOUS BLOOD / Unknown 04/01/2022 14:29 EDT 04/01/2022 21:09 EDT us Provider Outr Resulting Lab CHEMISTRY & BLOOD GA S ORDERABLES Final Result [facility] [address] [place] [address] documented in this encounter Visit Diagnoses Not on filedocumented in this encounter Care Teams Balling Head Tender Relationship Specialty Start Date End Date Sharon Vargas MD [address] [place] [phone] PCP - General 09/09/15 documented as of this encounter
--- OUTSIDE RECORDS SUMMARY | 2024-11-08 15:42 | XMS_ITS | Encounter Summary ---
Author Organization [facility] Address [address] [place] [address] Care Team Providers Care Shipmaster Name Role Phone Sharon Henderson MD Primary Care Provider [phone] Encounter Details Date Type Department Care Team (Late st Contact Info) Description 12/09/2016 Results Only [facility] [phone] Sharon Henderson MD [address] [place] [address] Social History Tobacco Use Types [...] Info) Description 12/22/2024 14:45 EST Office Visit [facility] [address] [place], [place] 1550[address] Hung Harp MD 111 [facility], Level [address] [place] [phone] 03/28/2025 13:[address] [facility] [address] [place], [place] [address]571 Consuelo Nicole MD [address] [place] [phone] documented as of this encounter Procedures Procedure [...] ? LEA MIRAMONTES ? Accession #: ? [id number] ? : ? 1975 (Age: 41) ??F [...] 33,35,39,45,51,52, 56,58,59,66, and 68 is detected by radiation control specialist mediated amplification. High and intermediate risk HPV [...] confirmed the above diagnosis. End of Report [facility] 12/09/2016 12/14/2016 us Sharon Henderson MD PATHOLOGY ORDERABLES Final Res ult [facility] [address] [place] [address] documented in this encounter Visit Diagnoses Not on filedocumented in this encounter Care Teams Shipmaster Relationship Specialty Start Date End Date Sharon Henderson MD [address] [place] [phone] PCP - General 09/09/15 documented as of this encounter
--- OUTSIDE RECORDS SUMMARY | 2024-11-08 15:42 | XMS_ITS | Encounter Summary ---
Author Organization [facility] Address [address] [place] [address] Care Team Providers Care Film Composer Name Role Phone Sharon Vargas MD Primary Care Provider [phone] Encounter Details Date Type Department Care Team (Late st Contact Info) Description 08/23/2023 Documentation Visit [facility] Endoscopy [address] [place], [place] [address] Kain Cantu MD [facility] [address] [place] [address] Social History Tobacco Use Types Packs/Day Years Used Date Smoking Tobacco: Never Assessed Comments Unknown Sex and Gender Information Value Date Recorded Sex Assigned at Not on file Legal Sex Female 18:01 EST Gender Identity Female 01/04/2024 11:39 EDT Sexual Orientation Not on file documented as of this encounter Progress Notes * Kain Cantu MD - 08/23/2023 1657 EST No show for clinic documented in this encounter Plan of Treatment Upcoming Encounters Date Type Department Care Team (Late st Contact Info) Description 12/22/2024 14:[address] [facility] Ophthalmology - [address] [address] Hung Harp MD 111 [facility], [facility], Level [address] [place] [address] 03/28/2025 13:[address] [facility] Ophthalmology [facility] [address] [place] [address] Consuelo Nicole MD [address] [place] [phone] documented as of this encounter Visit Diagnoses Not on filedocumented in this encounter Care Teams Film Composer Relationship Specialty Start Date End Date Sharon Vargas MD [address] [place] [phone] PCP - General 09/09/15 documented as of this encounter
--- OUTSIDE RECORDS SUMMARY | 2024-11-08 15:42 | XMS_ITS | Encounter Summary ---
Author Organization [facility] Address [address] [place] [address] Care Team Providers Care Truss Maker Name Role Phone Unavailable Primary Care Provider Unavailabl e Encounter Details Date Type Department Care Team (Late st Contact Info) Description 05/30/2001 Results Only [facility] [address] [place] [address] Yoel Deleon MD [address] [place], [place] [phone] Social History Tobacco Use Types Packs/Day Years [...] Info) Description 12/22/2024 14:45 EST Office Visit [facility] [address] [place] [address] Hung Harp MD 111 [facility], Level [address] [place] [phone] 03/28/2025 13:00 EDT Office Visit [facility] [address] [place], [place] [address] Consuelo Nicole MD [address] [place] [phone] documented as of this encounter Procedures Procedure [...] ? LEA LAMAS ? Accession #: ? [id number] ? : ? 1975 (Age: 26) ??F [...] ??Serial sections reveal a pinpoint lumen. ??Two medical center representative cross sections are submitted as (A). Received in formalin labelled Adams and right fallopian tube #2 is a cylindrical piece of ewing-pink fallopian tube which measures 1.1 cm in length and 0.6 cm in external diameter. ??Serial sections reveal a pinpoint lumen. ??Two medical center representative cross sections are submitted as (B). ??(Dr. Conroy-)/[facility] End of Report [facility] 05/30/2001 05/30/2001 15: 59 EDT us Yoel Deleon MD PATHOLOGY ORDERABLES Final Resul t [facility] [address] [place] [address] documented in this encounter Visit Diagnoses Not on filedocumented in this encounter
--- OUTSIDE RECORDS SUMMARY | 2024-11-08 15:42 | XMS_ITS | Encounter Summary ---
Author Organization [facility] Address [address] [place] [address] Care Team Providers Care Parole Hearing Officer Name Role Phone Sharon Vargas MD Primary Care Provider [phone] Encounter Details Date Type Department Care Team (Late st Contact Info) Description 09/20/2023 [facility] [address] [place] [phone] Salome Myles MD [address] [phone] Social History Tobacco Use Types Packs/Day [...] Info) Description 12/22/2024 14:45 EST Office Visit [facility] Ophthalmology - Main [address] 6407[address] Hung Harp MD 111 [facility], Level [address] [place] [phone] 03/28/2025 13:00 EDT Office Visit [facility] Ophthalmology [facility] [address] [place], [place] [address] Consuelo Nicole MD [address] [place] [phone] documented as of this encounter Visit Diagnoses Not on filedocumented in this encounter Care Teams Parole Hearing Officer Relationship Specialty Start Date End Date Sharon Vargas MD [address] [place] [address] PCP - General 09/09/15 documented as of this encounter
--- OUTSIDE RECORDS SUMMARY | 2024-11-08 15:42 | XMS_ITS | Encounter Summary ---
Author Organization [facility] Address [address] [place] [address] Care Team Providers Care Pneumatic Tester Name Role Phone Sharon Vargas MD Primary Care Provider [phone] Reason for Visit * Reason Onset Date Comments Appointment Related 11/09/2023 Encounter Details Date Type Department Care Team (Late st Contact Info) Description 11/09/[address] [address] Consuelo Nicole MD [address] [place] [phone] Appointment Related Social History Tobacco Use Types [...] - 11/09/2023 1035 EST Unable to leave [facility] no mail box set up. Contacted primary to let them know and to have them send her last notes from [facility] vision Schedule with Dr. Nicole in 6 weeks for NPV dm exam per Dr. Nicole documented in this encounter Plan of Treatment Upcoming Encounters Date Type Department Care Team (Late st Contact Info) Description 12/22/2024 14:45 EST Office Visit [facility] Ophthalmology - [facility] [address] [place], [place] [address] Hung Harp MD 111 [facility], Level [address] [place] [phone] 03/28/2025 13:00 EDT Office Visit [facility] Ophthalmology [facility] [address] [place], [place] [address] Consuelo Nicole MD [address] [place] [phone] documented as of this encounter Visit Diagnoses Not on filedocumented in this encounter Care Teams Pneumatic Tester Relationship Specialty Start Date End Date Sharon Vargas MD 4 [place] [phone] PCP - General 09/09/15 documented as of this encounter
--- OUTSIDE RECORDS SUMMARY | 2024-11-08 15:42 | XMS_ITS | Encounter Summary ---
Author Organization [facility] Address [address] [place] [address] Care Team Providers Care Ui Software Engineer Name Role Phone Unavailable Primary Care Provider Unavailabl e Encounter Details Date Type Department Care Team (Late st Contact Info) Description 07/03/1999 11:27 EDT Hospital Encounter [facility] [address] [place] [address] Sarah Martinez [place] [phone] [facility] [place] [address] Unknown, Provider, Social History Tobacco Use Types [...] Info) Description 12/22/2024 14:45 EST Office Visit [facility] Op[facility]mology - [facility] [address] [place], [place] [address] Hung Harp MD 111 [facility], Level [address] [place] [phone] 03/28/2025 13:00 EDT Office Visit [facility] [address] [place], [place] [address] Consuelo Nicole MD [address] [place] [phone] documented as of this encounter Visit Diagnoses Not on filedocumented in this encounter
--- OUTSIDE RECORDS SUMMARY | 2024-11-08 15:42 | XMS_ITS | Encounter Summary ---
Author Organization [facility] Address [address] [place] [address] Care Team Providers Care Fisher Name Role Phone Sharon Vargas MD Primary Care Provider [phone] Encounter Details Date Type Department Care Team (Late st Contact Info) Description 12/03/[address] [facility] Nephrology - [address] [id number] Junaid Olivarez MD [address] [place] [address], [facility] [place] [address] Social History Tobacco Use Types [...] Description 12/22/2024 14:[address] [facility] Ophthalmology [facility] [address] [place], [place] [address] Hung Harp MD 111 [facility], [facility] 5 [place] [phone] 03/28/2025 13:00 EDT Office Visit [address] [phone] Consuelo Nicole MD [address] [place] [address] documented as of this encounter Procedures Procedure Name Priority Date/Time Associated Diagnosis Comments GLUCOSE, SERUM Routine 10/29/2015 URINE PAJTNYL-CW-TYSENAERAL RATIO (ACR) Routine 10/16/2015 COMPREHENSIVE METABOLIC PANEL (CMP) Routine 02/18/2015 COMPLETE BLOOD COUNT Routine 05/28/2014 HEMOGLOBIN A1C Routine 05/28/2014 COMPREHENSIVE METABOLIC PANEL (CMP) Routine 05/28/2014 documented in this encounter Results * GLUCOSE, SERUM (10/29/2015) Pathologist [facility] Glucose, Serum, External 113 [facility] Blood specimen (specimen) 10/29/2015 Sharon Vargas MD CHEMISTRY & BLOOD GAS ORDERABL ES Final Result Performing Organization Address City/[facility]/ZIP Co de Phone Number [facility] * ALBUMIN, URINE (10/16/2015) Pathologist [facility] Microalb ug/mg Crea, External 312.7 [facility] Microalb mg/dl, External 84.7 [facility] Creatinine, Random U (UCRR), External 27.09 [facility] Urine specimen (specimen) 10/16/2015 Sharon Vargas MD CHEMISTRY & BLOOD GAS ORDERABL ES Edited Result - Final [facility] * COMPREHENSIVE METABOLIC PANEL (CMP) [...] ORDERABL ES Final Result Performing Organization Address [facility]/ZIP Co de Phone Number EXTERNAL LAB * HEMOGLOBIN A1C (05/28/2014) Hemoglobin A1C, External 8.7 [facility] Est Avg Glucose, External [facility] Blood specimen (specimen) 05/28/2014 Sharon Vargas MD CHEMISTRY & BLOOD GAS ORDERABL ES Final Result Performing Organization Address [facility] Co de Phone Number [facility] * COMPREHENSIVE METABOLIC PANEL (CMP) (05/28/2014) GFR, Calculated, External >60 [facility] Glucose, Serum, External 151 [facility] Albumin, External 2.9 [facility] Total Alkaline Phosphatase, External 137 [facility] ALT, External 86 [facility] AST, External 81 [facility] BUN, External 9 [facility] Calculated Calcium, External [facility] Calcium, External 8.0 [facility] Chloride, External 104 [facility] CO2, External 28.8 [facility] Creatinine, External 0.5 [facility] Fasting?, External [facility] Potassium, External 4.2 [facility] Sodium, External 140 [facility] Total Protein, External 6.4 [facility] Bilirubin, Total, External 0.2 [facility] Blood specimen (specimen) 05/28/2014 us Sharon Vargas MD CHEMISTRY & BLOOD GAS ORDERABL ES Final Result [facility] * HEMAGRAM (05/28/2014) HCT, External 35.7 [facility] MCH, External [facility] MCV, External [facility] MCHC, External [facility] Hemoglobin, External 11.4 [facility] WBC, External 7.76 [facility] RBC, External 3.83 [facility] PLT, External 461 [facility] RDW-CV, External [facility] Blood specimen (specimen) 05/28/2014 Sharon Vargas MD HEMATOLOGY & PF4 ORDERABLES Fi nal Result Performing Organization Address [facility] Co de Phone Number [facility] documented in this encounter Visit [...] tablet Take 2 Tablets by mouth daily. fluticasone-salm eterol (ADVAIR) 500-50 mcg/dose diskus inhaler [...] 2 Film under the tongue daily. 4 albuterol 90 mcg/actuation inhaler Inhale 2 Puffs as directed every 4 hours as needed for Wheezing. 5 sitaGLIPtin (JANUVIA) 100 mg tablet Take 100 mg by mouth daily. 4 added in this encounter Care Teams Fisher Relationship Specialty Start Date End Date Sharon Vargas MD [address] [place] [phone] PCP - General 09/09/15 documented as of this encounter
--- OUTSIDE RECORDS SUMMARY | 2024-11-08 15:42 | XMS_ITS | Encounter Summary ---
Author Organization [facility] Address [address] [place] [address] Care Team Providers Care Maintenance Machinist Name Role Phone Sharon Vargas MD Primary Care Provider [phone] Encounter Details Date Type Department Care Team (Late st Contact Info) Description 04/21/[address] [facility] Pathology & Laboratory Medicine - [address] [address] Outr Resulting Lab, Provider Social History Tobacco [...] Description 12/22/2024 14:[address] [facility] Ophthalmology [address] [phone] Hung Harp MD [address] [place] [address], [address] [place] [phone] 03/28/2025 13:00 EDT Office Visit [address] 155671 Consuelo Nicole MD [address] [place] [phone] documented as of this encounter Procedures Procedure Name Priority Date/Time Associated Diagnosis Comments ANAEROBE CULTURE, REFERENCE Routine 04/21/2023 14:17 EDT documented in this encounter Results * ANAEROBE CULTURE, REFERENCE (04/21/2023 14:17 EDT) Organism ID No Anaerobes Isolated 05/01/2023 12:00 EDT [facility] Tissue ENTIRE TOE / Unknown 04/21/2023 14:17 EDT 04/21/2023 21:25 EDT us Provider Outr Resulting Lab MICROBIOLOGY - GENER AL ORDERABLES Final Result [facility] [address] [place] [address] documented in this encounter Visit Diagnoses Not on filedocumented in this encounter Care Teams Maintenance Machinist Relationship Specialty Start Date End Date Sharon Vargas MD [address] [place] [phone] PCP - General 09/09/15 documented as of this encounter
--- OUTSIDE RECORDS SUMMARY | 2024-11-08 15:42 | XMS_ITS | Encounter Summary ---
Author Organization [facility] Address [address] [place] [address] Care Team Providers Care Magazine Journalist Name Role Phone Sharon Vargas MD Primary Care Provider [phone] Reason for Referral * Consult, Test and Treat (Routine) - Receiving Office to Obtain Authorization Specialty Diagnoses / Procedures Referred By Johnnie eugene Referred To Contact Ophthalmology Diagnoses Type 2 diabetes mellitus with both eyes affected by moderate nonproliferative retinopathy without macular edema, with long-term current use of insulin ([facility]) Consuelo Nicole MD Phone: tel: fax: Hung Harp MD Phone: tel: fax: Referral ID Status Reason Start Date Expiration Date Visits Requested Visits Authorized [id number] Receiving Office to Obtain Authorization Specialty Services [...] Info) Description 12/29/2023 10:45 EDT Office Visit [facility] Ophthalmology [facility] [address] [place] [address] Consuelo Nicole MD [address] [place] [phone] Social History Tobacco Use Types Packs/Day Years [...] appointment is: 02/09/2024 at our office [address] [place], [place] Your surgery date for your first eye is: 03/23/2024 at (check in at Patient Registration). The Hospital will call you prior to the surgery with your report time. Your surgery date for your second eye is: 04/25/2024 documented in this encounter Progress Notes * Consuelo Nicole MD - 12/29/2023 1048 EDT Chief Complaint Patient presents with Diabetes [...] Psychiatric: Depression Endocrine: Diabetes Hematologic: Anemia Immunologic: Gyroscope Technician: Exposures: None Other: Attestation: Base Eye [...] lens. Refraction Manifest Refraction (Auto) Sphere Cylinder [place] Dist [place] Right -10.50 +2.25 154 Left -5.00 +2.50 035 Manifest Refraction #2 Sphere Cylinder [place] Dist [place] Right -7.25 +2.00 150 20/300 Left -3.75 Sphere 20/60 Cycloplegic Refraction Sphere Cylinder [place] Dist [place] Right -7.25 +2.00 150 Left [...] Info) Description 12/22/2024 14:45 EST Office Visit [facility] Ophthalmology [address] [address]371 Hung Harp MD [address] [place] [address], [address] [place] [phone] 03/28/2025 13:00 EDT Office Visit [facility] Ophthalmology [address] 3623[address] Consuelo Nicole MD [address] [place] [phone] Scheduled Referrals Name Type Priority Associated Diagnoses Orde r Schedule AMB CONS/FOLLOW UP OPHTHALMOLOGY Outpatient Referral Routine/Next Available Type 2 Diabetes Mellitus With Both Eyes Affected By Moderate Nonproliferative Retinopathy Without Macular Edema, With Long-Term Current Use Of Insulin ([facility]) Expected: 01/29/2024 (Approximate) , Expires: 12/28/2024 documented as of this encounter Procedures Procedure Name Priority Date/Time Associated Diagnosis Comments OCT, RETINA - OU - BOTH EYES Routine 12/29/2023 13:57 EDT Type 2 diabetes mellitus with both eyes affected by moderate nonproliferative retinopathy without macular edema, with long-term current use of insulin ([facility]) documented in this encounter Results * OCT, RETINA - OU - BOTH EYES (12/29/2023 13:57 EDT) Narrative [facility] OPHTHALMOLOGY - 12/29/2023 13:57 EDT OCT macula Right: signal strength: 2/10, thickness 268 microns, normal foveal contour, possible intraretinal fluid Left: signal strength: 5/10, thickness 234 microns, normal foveal contour, no intra/subretinal fluid us Consuelo Nicole MD OPHTH TOMOGRAPHY Final Resu lt [facility] OPHTHALMOLOGY documented in this encounter Visit Diagnoses Diagnosis Type 2 diabetes mellitus with both eyes affected by moderate nonproliferative retinopathy without macular edema, with long-term current use of insulin ([facility])- Primary Combined forms of age-related cataract of [...] injectable pen Inject into the skin daily. insulin degludec (TRESIBA FLEXTOUCH U-200) 200 unit/mL (3 mL) 200 unit/ml (3ml) insulin pen Inject 8,000 Units into the skin 2 times daily. polyethylene glycol 3350 (MIRALAX) 17 gram packet Take 17 g by mouth as needed for Constipation. methadone (DOLOPHINE) 10 mg/mL solution Take 12 mL by mouth daily. metFORMIN (GLUCOPHAGE) 500 mg tablet Take 4 [...] lens. Manifest Refraction #1 (Auto) Sphere Cylinder [place] Dist [place] Right eye -10.50 +2.25 154 Left eye -5.00 +2.50 035 Manifest Refraction #2 Sphere Cylinder [place] Dist VA Right eye -7.25 +2.00 150 20/300 Left eye -3.75 Sphere 20/60 Cycloplegic Refraction Sphere Cylinder [place] Dist VA Right eye -7.25 +2.00 150 Left eye -3.75 +0.75 035 20/80+1 Care Teams Magazine Journalist Relationship Specialty Start Date End Date Sharon Vargas MD [address] [facility] [place] [address] PCP - General 09/09/15 documented as of this encounter
--- OUTSIDE RECORDS SUMMARY | 2024-11-08 15:42 | XMS_ITS | Encounter Summary ---
Author Organization [facility] Address [address] [place] [address] Care Team Providers Care Fishing Boat Mate Name Role Phone Sharon Vargas MD Primary Care Provider [phone] Encounter Details Date Type Department Care Team (Late st Contact Info) Description 03/27/2016 Historical Results Only [facility] Radiology Results [address] [place] [address] Roberth Osborne MD Social History Tobacco Use [...] Info) Description 12/22/2024 14:45 EST Office Visit [address] [phone] Hung Harp MD 111 [facility], Level [address] [place] [phone] 03/28/2025 13:00 EDT Office Visit [facility] [address] [place] [address] Consuelo Nicole MD [address] [place] [phone] documented as of this encounter Procedures Procedure Name Priority Date/Time Associated Diagnosis Comments XR CHEST 2 VIEWS 03/27/2016 20:0 9 EDT documented in this encounter Results * XR CHEST 2 VIEWS (03/27/2016 20:09 EDT) Anatomical Region Laterality Modality Other 03/27/2016 20:0 9 EDT Narrative 03/27/2016 20:09 EDT ? EXAM: RADIOLOGY/CHEST (PA ?? LAT) ?EX. D/ (1951) ? CLINICAL INFORMATION: ? CHEST PAIN ? [...] CC: ? Transcribed Date/Time: 03/27/2016 (2008) ? Electrician Technician: ? Printed Date/Time: 03/31/2019 (0032) ? PAGE 1 ? Signed Report ? [...] Gan MD CC: Transcribed Date/Time: 03/27/2016 (2008) Electrician Technician: Printed Date/Time: 03/31/2019 (003) PAGE 1 Signed Report Roberth Osborne MD IMG DIAGNOSTIC IMAGING ORDERABL ES Final Result documented in this encounter Visit Diagnoses Not on filedocumented in this encounter Care Teams Fishing Boat Mate Relationship Specialty Start Date End Date Sharon [place] [phone] PCP - General 09/09/15 documented as of this encounter
--- OUTSIDE RECORDS SUMMARY | 2024-11-08 15:42 | XMS_ITS | Encounter Summary ---
Author Organization [facility] Address [address] [place] [address] Care Team Providers Care Outside Sales Professional Name Role Phone Sharon Vargas MD Primary Care Provider [phone] Encounter Details Date Type Department Care Team (Latest Contact Info) Description 03/27/2016 8:14 EDT - 03/27/2016 23:59 EDT Hospital Encounter [facility] [address] [place] [address] Unknown, Provider, MD Discharge Disposition: Home or Self Care Social History Tobacco Use Types Packs/Day Years Used Date Smoking Tobacco: Never Assessed Comments Unknown Sex and Gender Information Value Date Recorded Sex Assigned at Not on file Legal Sex Female 18:01 EST Gender Identity Female 01/04/2024 11:39 EDT Sexual Orientation Not on file documented as of this encounter Medications at Time of Discharge aspirin 81 mg EC tablet Take 1 Tablet by mouth daily. atorvastatin (LIPITOR) 20 mg tablet Take 2 Tablets by mouth daily. docusate sodium (COLACE) 100 mg capsule Take 1 Capsule by mouth 2 times daily. melatonin 3 mg tablet Take 3 Tablets by mouth at bedtime. omeprazole (PRILOSEC) 40 mg capsule Take 1 Capsule by mouth daily. albuterol 90 mcg/actuation inhaler Inhale 2 Puffs as directed every 4 hours as needed for Wheezing. 5 amitriptyline (ELAVIL) 75 mg tablet Take 2 [...] Code Departure Means Destination Home or Self Alf documented in this encounter Plan of Treatment Upcoming Encounters Date Type Department Care Team (Late st Contact Info) Description 12/22/2024 14:45 EST Office Visit [facility] [address] [place], [place] [address] Hung Harp MD 111 [facility], Level [address] [place] [phone] 03/28/2025 13:00 EDT Office Visit [facility] [address] [place] [address] Consuelo Nicole MD [address] [place] [phone] documented as of this encounter Visit Diagnoses Not on filedocumented in this encounter Care Teams Outside Sales Professional Relationship Specialty Start Date End Date Sharon Vargas MD [address] [place] [phone] PCP - General 09/09/15 documented as of this encounter
--- OUTSIDE RECORDS SUMMARY | 2024-11-08 15:42 | XMS_ITS | Encounter Summary ---
Author Organization [facility] Address [address] [place] [address] Care Team Providers Care Operations Project Manager Name Role Phone Unavailable Primary Care Provider Unavailabl e Encounter Details Date Type Department Care Team (Late st Contact Info) Description 01/15/2000 Results Only [facility] conversion [address] [place] [address] Yoel Deleon MD [address] [place], [place] [phone] Social History Tobacco Use Types Packs/Day Years [...] Office Visit [facility] [address] [place] [address] Hung Harp MD 111 [facility], [address] [place] [phone] 03/28/2025 13:00 EDT Office Visit [facility] [address] [place], [place] [address] Consuelo Nicole MD [address] [place] [phone] documented as of this encounter Procedures Procedure [...] ? LEA MCGOWAN ? Accession #: ? [id number] : ? 1975 (Age: 25) ??F ?Collect Date: ? 01/15/2000 Location: ?Receive Date: ? 01/15/2000 Provider: ?YOEL DELEON MD Copy to: ?YOEL DELEON MD ? Specimen/Source: ?Pap Smear (One Slide) Last Menstrual Period: ? GYNECOLOGIC ??CYTOPATHOLOGY ??REPORT Name: LEA MCGOWAN ? [facility] : 1975 ?? 25Y F ?Client ID: [id number] #: [id number] ? Clinician: YOEL DELEON MD ?? Location: [facility] ??Copy to: ?? Specimen: ?Pap Smear [...] Faye, SCT(ASCP) ? Report Date: ?? 01/22/2000 [facility] Archived Tests - Final Diagnosis Text Field: Clinical History : ? Document reviewed and electronically signed by: ? Conversion ? Report Date: ??01/22/2000 00:00 End of Report NATHAN SETHI 01/15/2000 13:2 4 EST 01/15/2000 13:25 EST us Yoel Deleon MD PATHOLOGY ORDERABLES Final Resul t NATHAN SETHI [address] [place] [address] documented in this encounter Visit Diagnoses Not on filedocumented in this encounter
[2024-11-08 17:05] LABS: Abs Immature Grans 0.05 10^3/uL (0.0-0.06); Absolute Basophil Count 0.02 10^3/uL (0.0-0.2); Absolute Eosinophil Count 0.05 10^3/uL (0.0-0.7); Absolute Lymphocyte Count 1.12 10^3/uL (1.2-3.4); Absolute Monocyte Count 0.98 10^3/uL (0.1-0.8); Absolute Neutrophil Count 12.94 10^3/uL (1.2-6.7); Basophils % 0.1 %; Eosinophils % 0.3 %; HCT 32.9 % (36.0-46.0); HGB 10.5 g/dL (11.2-15.7); Immature Grans % 0.3 %; Lymphocytes % 7.4 %; MCH 27.2 pg (27.0-33.0); MCHC 31.9 % (32.0-36.0); MCV 85 fL (80-95); MPV 10.2 fL (8.0-11.0); Monocytes % 6.5 %; Neutrophils % 85.4 %; Platelet Count 398 10^3/uL (130-400); RBC 3.86 10^6/uL (3.93-5.22); RDW 17.2 % (11.7-14.6); RDW-SD 53.1 fL; WBC 15.15 10^3/uL (4.4-10.8)
[2024-11-08 17:19] LABS: Anion Gap 17.4 mmol/L (3-11); CO2 17.6 mmol/L (21.0-32.0); Calcium 8.2 mg/dL (8.5-10.1); Chloride 106 mmol/L (98-107); Estimated GFR 6.36 (mL/min/1.73m2); Glucose 81 mg/dL (74-106); Potassium 4.8 mmol/L (3.5-5.1); Sodium 141 mmol/L (136-145)
[2024-11-08 17:26] LABS: BUN 133 mg/dL (7-18); CREATININE 7.3 mg/dL (0.55-1.02)
== END 2024-11-08 15:38 | disposition home or self-care (01) ==
LOC: NCHCN 15:37
PROVIDERS: PCP Family Medicine; Visit Provider Family Medicine
DX: J44.1 Chronic obstructive pulmonary disease with (acute) exacerbation (principal); N18.9 Chronic kidney disease, unspecified; E11.9 Type 2 diabetes mellitus without complications; F11.90 Opioid use, unspecified, uncomplicated; I10 Essential (primary) hypertension; B18.2 Chronic viral hepatitis C; K74.60 Unspecified cirrhosis of liver
CPT/HCPCS: 80048; 85025

== ENCOUNTER 2024-11-10 15:23 | Outpatient (REF) | payer MEDICARE, MEDICAID, SELFPAY ==
--- OUTSIDE RECORDS SUMMARY | 2024-11-10 15:26 | XMS_ITS | Encounter Summary ---
Author Organization [facility] [place] [address] Care Team Providers Care Combination Technician Name Role Phone Penny Javed APRN Primary Care Provider + Encounter Details Date Type Department Care Team (Late st Contact Info) Description 11/01/2024 Interpretation Only [facility] in [facility] [address] [place] [address] Homa Welch MD [address] [place] [address] Social History Tobacco Use Types [...] PM EST) PT CLASS I RAD ADMITDTTM [id number] RAD PT RAD INFO [id number]^OLMAN ^HOMA^B RAD EXAM DESC CTCHST^CT CHEST WO CONTRAST^RIS RAD WORKSTATION ID [id number] RAD Anatomical Region Laterality Modality Chest Computed [...] who have questions please contact the health career information specialist that requested your imaging first. ? Narrative 11/02/2024 9:30 AM EST EXAMINATION: CT [...] patients who have questions please contactthe health career information specialist that requested your imaging first. Homa Welch MD IMG CT ORDERABLES documented in this encounter Visit Diagnoses Not on filedocumented in this encounter Care Teams Combination Technician Relationship Specialty Start Date End Date Penny Javed APRN PCP - General 09/09/10 documented as of this encounter
--- OUTSIDE RECORDS SUMMARY | 2024-11-10 15:26 | XMS_ITS | Encounter Summary ---
Author Organization [facility] [place] [address] Care Team Providers Care Sales Order Coordinator Name Role Phone Penny Javed PRESCHOOL TEACHER AIDE Primary Care Provider + Encounter Details Date Type Department Care Team (Late st Contact Info) Description 11/02/2024 Interpretation Only [facility] in [facility] [address] [place] [phone] Sonia Welch MD [address] [place], [place] [address] Social History Tobacco Use Types Packs/Day Years Used Date Smoking Tobacco: Never Assessed Sex and Gender Information Value Date Recorded Sex Assigned at Not on file Gender Identity Not on file Sexual Orientation Not on file documented as of this encounter Plan of Treatment Not on file documented as of this encounter Visit Diagnoses Not on filedocumented in this encounter Care Teams Sales Order Coordinator Relationship Specialty Start Date End Date Penny Javed APRN PCP - General 09/09/10 documented as of this encounter
--- OUTSIDE RECORDS SUMMARY | 2024-11-10 15:26 | XMS_ITS | Encounter Summary ---
Author Organization [facility] [place] [address] Care Team Providers Care Clerical And Office Support Workers Name Role Phone Penny Javed APRN Primary Care Provider + Encounter Details Date Type Department Care Team (Late st Contact Info) Description 11/01/[address] [facility] in [facility] [address] [place] [phone] Abbi Luna MD [address] [place] [address] Social History Tobacco Use Types [...] AM EST) PT CLASS E RAD ADMITDTTM [id number] RAD PT RAD INFO [id number]^OCONNO R^ABBI RAD EXAM DESC XCXR1^XR CHEST PORTABLE OR 1V^RIS RAD WORKSTATION ID [id number] RAD Anatomical Region Laterality Modality Chest N/A [...] who have questions please contact the health nursing care partner that requested your imaging first. ? Narrative [...] patients who have questions please contactthe health nursing care partner that requested your imaging first. Abbi Luna MD IMG DX ORDERABLES documented in this encounter Visit Diagnoses Not on filedocumented in this encounter Care Teams Clerical And Office Support Workers Relationship Specialty Start Date End Date Penny Javed, CORNELIA PCP - General 09/09/10 documented as of this encounter
--- OUTSIDE RECORDS SUMMARY | 2024-11-10 15:26 | XMS_ITS | Encounter Summary ---
Author Organization [facility] [place] [address] Care Team Providers Care Brush Fabrication Supervisor Name Role Phone Penny Javed APRN Primary Care Provider + Encounter Details Date Type Department Care Team (Late st Contact Info) Description 11/01/[address] [facility] in [facility] [address] [place] [address] Ban Red PA [address] [place] [address] Social History Tobacco Use Types [...] AM EST) PT CLASS I RAD ADMITDTTM [id number] RAD PT RAD MD INFO [id number]^MARLINE ^BAN RAD EXAM DESC NMVQ^NM LUNG VENTILATION AND PERFUSION^RIS [facility] WORKSTATION ID [id number] [facility] Anatomical Region Laterality Modality Other Impressions 11/02/2024 11:46 AM EST No pulmonary embolism. Thank you for letting us participate in the care of this patient. ??If you are a health care provider and have any questions regarding this report, please contact the number below. ??For patients who have questions please contact the health property caretaker that requested your imaging first. ? Electronically signed by: Júnior Vcik MD, [facility] ([phone]), at 11/02/2024 11:46 AM Narrative 11/02/2024 11:46 [...] patients who have questions please contactthe health property caretaker that requested your imaging first. Ban POTTS IMG NM ORDERABLES documented in this encounter Visit Diagnoses Not on filedocumented in this encounter Care Teams Brush Fabrication Supervisor Relationship Specialty Start Date End Date Penny Javed APRN PCP - General 09/09/10 documented as of this encounter
--- OUTSIDE RECORDS SUMMARY | 2024-11-10 15:26 | XMS_ITS | Clinical Summary ---
[facility] [place] [address] Care Team Providers Care Extension Supervisor Name Role Phone Penny Javed APRN Primary Care Provider + Encounters Date Type Department Care Team Description 11/02/2024 Interpretation Only [facility] in [address] [address] Sonia Welch MD 11/01/2024 Interpretation Only [facility] in [address] [phone] Pavan Red PA 11/01/2024 Interpretation Only [facility] in [address] [address] Sonia Welch MD 11/01/2024 Interpretation Only [facility] in [address] [address] Abbi Luna MD 10/07/2024 Interpretation Only [facility] in [address] [address] Elmer Vaz Jr., MD from Last 3 [...] AM EST) PT CLASS I RAD ADMITDTTM [id number] [facility] PT [facility] MD INFO [id number]^MARLINE ^PAVAN RAD EXAM DESC NMVQ^NM LUNG VENTILATION AND PERFUSION^RIS [facility] WORKSTATION ID [id number] [facility] Anatomical Region Laterality Modality Other Impressions 11/02/2024 11:46 AM EST No pulmonary embolism. Thank you for letting us participate in the care of this patient. ??If you are a health care provider and have any questions regarding this report, please contact the number below. ??For patients who have questions please contact the health child day care center worker that requested your imaging first. ? Electronically signed by: Júnior Vick MD, [facility] ([phone]), at 11/02/2024 11:46 AM Narrative 11/02/2024 11:46 [...] who have questions please contactthe health child day care center worker that requested your imaging first. Electronically signed by: Júnior Vick MD, [facility]([phone]), at 11/02/2024 11:46 AM Pavan POTTS IMG NM ORDERABLES * CT Chest wo Contrast (Generic) (11/01/2024 1:34 PM EST) PT CLASS I DH RAD ADMITDTTM [id number] RAD PT RAD INFO [id number]^OLMAN ^SONIA^B RAD EXAM DESC CTCHST^CT CHEST WO CONTRAST^RIS [facility] WORKSTATION ID [id number] [facility] Anatomical Region Laterality Modality Chest Computed Tomogra [...] have questions please contact the health child day care center worker that requested your imaging first. ? Electronically signed by: Ricardo Lopez MD, [facility] ??([phone]), at 11/02/2024 9:30 AM Narrative 11/02/2024 9:30 [...] who have questions please contactthe health child day care center worker that requested your imaging first. Electronically signed by: Ricardo Lopez MD, [facility]([phone]), at 11/02/2024 9:30 AM Sonia Welch MD IMG CT ORDERABLES * XR Chest One View (11/01/2024 2:10 AM EST) PT CLASS E RAD ADMITDTTM [id number] RAD PT [facility] INFO [id number]^OCONNO R^ABBI DH RAD EXAM DESC XCXR1^XR CHEST PORTABLE OR 1V^RIS [facility] WORKSTATION ID [id number] [facility] Anatomical Region Laterality Modality Chest N/A Radiographic [...] have questions please contact the health child day care center worker that requested your imaging first. ? Narrative [...] who have questions please contactthe health child day care center worker that requested your imaging first. Electronically signed by: Lala Patel MD, [facility]([phone]), at 11/01/2024 2:13 AM Abbi Luna MD IMG DX ORDERABLES * CT Abdomen & Pelvis wo Contrast (10/07/2024 2:31 PM EST) PT CLASS E RAD ADMITDTTM [id number] [facility] PT [facility] INFO [id number]^MARSAN ^ELMER^J RAD EXAM DESC CTAPWO^CT ABD PELVIS WO IV OR ORAL CONTRAST^RIS [facility] WORKSTATION ID [id number] [facility] Anatomical Region Laterality Modality Abdomen, Pelvis [...] have questions please contact the health child day care center worker that requested your imaging first. ? Electronically signed by: Júnior Vick MD, [facility] ([phone]), at 10/07/2024 3:51 PM Narrative 10/07/2024 3:51 [...] who have questions please contactthe health child day care center worker that requested your imaging first. Electronically signed by: Júnior Vick MD, [facility]([phone]), at 10/07/2024 3:51 PM Elmer Vaz Jr., MD IMG CT ORDERABLE S from Last 3 Months Care Teams Extension Supervisor Relationship Specialty Start Date End Date Penny Javed, CORNELIA PCP - General 09/09/10
--- OUTSIDE RECORDS SUMMARY | 2024-11-10 15:26 | XMS_ITS | Encounter Summary ---
Author Organization [facility] [place] [address] Care Team Providers Care Industrial X Ray Operator Name Role Phone Penny Javed APRN Primary Care Provider + Encounter Details Date Type Department Care Team (Late st Contact Info) Description 10/07/2024 Interpretation Only [facility] in [facility] [address] [place] [address] Elmer Vaz Jr., MD [address] [place] [address] Social History Tobacco Use Types [...] PM EST) PT CLASS E RAD ADMITDTTM [id number] RAD PT RAD INFO [id number]^HUSEYIN ^ELMER^Cheli RAD EXAM DESC CTAPWO^CT ABD PELVIS WO IV OR ORAL CONTRAST^RIS [facility] WORKSTATION ID [id number] [facility] Anatomical Region Laterality Modality Abdomen, [...] who have questions please contact the health human services care specialist that requested your imaging first. ? Electronically signed by: Júnior Vick MD, [facility] ([phone]), at 10/07/2024 3:51 PM Narrative 10/07/2024 3:51 [...] patients who have questions please contactthe health human services care specialist that requested your imaging first. Electronically signed by: Júnior Vick MD, [facility]([phone]), at 10/07/2024 3:51 PM Elmer Vaz Jr., MD IMG CT ORDERABLE S documented in this encounter Visit Diagnoses Not on filedocumented in this encounter Care Teams Industrial X Ray Operator Relationship Specialty Start Date End Date Penny Javed, CORNELIA PCP - General 09/09/10 documented as of this encounter
--- OUTSIDE RECORDS SUMMARY | 2024-11-10 15:27 | XMS_ITS | Data Portability ---
Author Organization [facility] [place], [place]Eulogio Long Address [address] [place] [address] Assessment Encounter Date Assessment Date Assessment LastModified [...] regarding any risk of combining sedating agents. [email or web address] Not available 03/04/2022 13:28:21 03/11/2022 03/11/2022 Telemedicine [...] regarding any risk of combining sedating agents. [email or web address] Not available 03/11/2022 13:08:03 03/25/2022 03/25/2022 Telemedicine [...] regarding any risk of combining sedating agents. [email or web address] Not available 03/25/2022 13:50:44 04/08/2022 04/08/2022 Telemedicine [...] recorded. Lab drug screen, urine 2021 022 [facility], [address] [place], [address], 2 11:21:44 drug screen, urine 2021 022 [facility], [address] Kyle Goff [place], [address], 2 13:54:31 drug screen, urine 2021 022 [facility], [address] Kyle Goff [place]AH Mary, [address], 2 14:14:27 AST/SGOT (aspartate aminotransf erase), serum or plasma [address] (Lab), [address] [place] [address], [address], 2 11:11:26 ALT (alanine aminotransf erase), serum or plasma [address] (Lab), [address] [place] [address], [address], 2 11:11:26 gamma-gluta myl transferase (ggt), serum [address] (Lab), [address] [place] [address], [address], 2 11:11:26 drug screen, urine 2021 022 [facility], [address] Kyle Goff [place], [address], 2 09:33:11 drug screen, urine [address], [address] [place], [address], 2 10:28:58 Referral None recorded. Procedures None [...] vaughn by GINO Vitaliy FRIEDMAN Not Available [address] [address] [place], [address], 02/20/2022 11:43:53 02/19/2008 0302/18/2022 BUPRE NORPH INE PT SCREE MONIKA benzodiazapi olivia Negati ve NG/mL 200 Not Available [facility] [place], [address], 02/20/2022 11:43:53 02/19/20 22 02/18/2022 BUPRE NORPH INE PT SCREE MONIKA buprenorphin e Positi ve NG/mL 5 Not Available [address] [address] [place], [address], 02/20/2022 11:43:53 02/19/20 22 02/18/2022 BUPRE NORPH INE PT SCREE MONIKA cocaine metabolite Negati ve NG/mL 150 Not Available [address] [address] [place], [address], 02/20/2022 11:43:53 02/19/20 22 02/18/2022 BUPRE NORPH INE PT SCREE MONIKA opiates Negati ve NG/mL 300 Not Available [facility] [place], [address], 02/20/2022 11:43:53 02/19/20 22 02/18/2022 BUPRE NORPH INE PT SCREE MONIKA oxycodone Negati ve NG/mL 300 Not Available [address] [address] [place], [address], 02/20/2022 11:43:53 02/19/20 22 02/18/2022 BUPRE NORPH INE PT SCREE MONIKA fentanyl Negati ve NG/mL 2 Not Available [address] [address] [place], [address], 02/20/2022 11:43:53 02/19/20 22 02/18/2022 BUPRE NORPH INE PT SCREE MONIKA ethyl alcohol Negati ve mg/dL 10 Not Available [facility] [place], [address], 02/20/2022 11:43:53 02/19/20 22 02/18/2022 BUPRE NORPH INE PT SCREE MONIKA methadone metabolite Negati ve NG/mL 300 Not Available [facility] [place], [address], 02/20/2022 11:43:53 02/19/20 22 02/18/2022 BUPRE NORPH INE PT SCREE MONIKA cannabinoids (THC) Negati ve NG/mL 50 Not Available [facility] [place], [address], 02/20/2022 11:43:53 02/19/20 22 02/18/2022 BUPRE NORPH INE PT SCREE MONIKA urine creatinine 138.4 mg/dL >20 Not Available [address] [address] [place], [address], 02/20/2022 11:43:53 02/19/20 22 02/18/2022 BUPRE NORPH INE PT SCREE MONIKA urine pH 5.60 4.5-9. 0 Not Available [address] [address] [place], [address], 02/20/2022 11:43:53 02/19/20 22 02/18/2022 BUPRE NORPH INE PT SCREE MONIKA specific gravity 1.019 1.003- 1.035 Not Available [address] [address] [place], [address], 02/20/2022 11:43:53 02/19/20 22 02/18/2022 PRESC RIBED DRUG CONFI RMATI ON BUPRE NORPH INE 1, QN, U buprenorphin e 155.3 NG/mL 10 Gerda vaughn by GINO STARK FRIEDMAN Not Available [address] [address] [place], [address], 02/24/2022 13:27:22 02/19/20 22 02/18/2022 PRESC RIBED DRUG CONFI RMATI ON BUPRE NORPH INE 1, QN, U norbuprenorp sebastián 191.7 NG/mL 10 Not Available [address] [address] [place], [address], 02/24/2022 13:27:22 02/19/20 22 02/18/2022 PRES RIBED DRUG CONFI RMATI ON BUPRE NORPH INE 1, QN, U legend Abbrev iation s LOW - Detec francis but unqua ntifi able OLR - Outsi de of linea r range ATR - Addit ional Testi ng Requi red Not Available [address] [address] [place], [address], 02/24/2022 13:27:22 02/19/20 22 02/18/2022 [facility] RIBED DRUG CONFI RMATI ON BUPRE NORPH INE 1, QN, U billing only ([id number]) Billin g Only Not Available [facility] [place], [address], 02/24/2022 13:27:22 02/26/20 22 02/25/2022 BUPRE NORPH INE PT SCREE MONIKA amphetamines Negati ve NG/mL 1,000 Gerda olivo d by GINO STARK WENDELL Not Available [address] [address] [place], [address], 02/26/2022 12:36:27 02/26/20 22 02/25/2022 BUPRE NORPH INE PT SCREE MONIKA benzodiazapi olivia Negati ve NG/mL 200 Not Available [facility] [place], [address], 02/26/2022 12:36:27 02/26/20 22 02/25/2022 BUPRE NORPH INE PT SCREE MONIKA buprenorphin e Positi ve NG/mL 5 Not Available [facility] [place], [address], 02/26/2022 12:36:27 02/26/20 22 02/25/2022 BUPRE NORPH INE PT SCREE MONIKA cocaine metabolite Negati ve NG/mL 150 Not Available [facility] [place], [address], 02/26/2022 12:36:27 02/26/20 22 02/25/2022 BUPRE NORPH INE PT SCREE MONIKA opiates Negati ve NG/mL 300 Not Available [facility] [place], [address], 02/26/2022 12:36:27 02/26/20 22 02/25/2022 BUPRE NORPH INE PT SCREE MONIKA oxycodone Negati ve NG/mL 300 Not Available [facility] [place], [address], 02/26/2022 12:36:27 02/26/20 22 02/25/2022 BUPRE NORPH INE PT SCREE MONIKA fentanyl Negati ve NG/mL 2 Not Available [facility] [place], [address], 02/26/2022 12:36:27 02/26/20 22 02/25/2022 BUPRE NORPH INE PT SCREE MONIKA ethyl alcohol Negati ve mg/dL 10 Not Available [facility] [place], [address], 02/26/2022 12:36:27 02/26/20 22 02/25/2022 BUPRE NORPH INE PT SCREE MONIKA methadone metabolite Negati ve NG/mL 300 Not Available [facility] [place], [address], 02/26/2022 12:36:27 02/26/20 22 02/25/2022 BUPRE NORPH INE PT SCREE MONIKA cannabinoids (THC) Negati ve NG/mL 50 Not Available [facility] [place], [address], 02/26/2022 12:36:27 02/26/20 22 02/25/2022 BUPRE NORPH INE PT SCREE MONIKA urine creatinine 101.1 mg/dL >20 Not Available [address] [address] [place], [address], 02/26/2022 12:36:27 02/26/20 22 02/25/2022 BUPRE NORPH INE PT SCREE MONIKA urine pH 5.30 4.5-9. 0 Not Available [address] [address] [place], [address], 02/26/2022 12:36:27 02/26/20 22 02/25/2022 BUPRE NORPH INE PT SCREE MONIKA specific gravity 1.014 1.003- 1.035 Not Available [address] [address] [place], [address], 02/26/2022 12:36:27 03/04/20 22 03/04/2022 BUPRE NORPH INE PT SCREE MONIKA amphetamines Negati ve NG/mL 1,000 [facility] baron olivo d by [facility] Not Available [address] [address] [place], [address], 03/05/2022 11:21:44 03/04/20 22 03/04/2022 BUPRE NORPH INE PT SCREE MONIKA benzodiazapi olivia Negati ve NG/mL 200 Not Available [facility] [place], [address], 03/05/2022 11:21:44 03/04/20 22 03/04/2022 BUPRE NORPH INE PT SCREE MONIKA buprenorphin e Positi ve NG/mL 5 Not Available [facility] [place], [address], 03/05/2022 11:21:44 03/04/20 22 03/04/2022 BUPRE NORPH INE PT SCREE MONIKA cocaine metabolite Negati ve NG/mL 150 Not Available [facility] [place], [address], 03/05/2022 11:21:44 03/04/20 22 03/04/2022 BUPRE NORPH INE PT SCREE MONIKA opiates Negati ve NG/mL 300 Not Available [facility] [place], [address], 03/05/2022 11:21:44 03/04/20 22 03/04/2022 BUPRE NORPH INE PT SCREE MONIKA oxycodone Negati ve NG/mL 300 Not Available [facility] [place], [address], 03/05/2022 11:21:44 03/04/20 22 03/04/2022 BUPRE NORPH INE PT SCREE MONIKA fentanyl Negati ve NG/mL 2 Not Available [facility] [place], [address], 03/05/2022 11:21:44 03/04/20 22 03/04/2022 BUPRE NORPH INE PT SCREE MONIKA ethyl alcohol Negati ve mg/dL 10 Not Available [facility] [place], [address], 03/05/2022 11:21:44 03/04/20 22 03/04/2022 BUPRE NORPH INE PT SCREE MONIKA methadone metabolite Negati ve NG/mL 300 Not Available [facility] [place], [address], 03/05/2022 11:21:44 03/04/20 22 03/04/2022 BUPRE NORPH INE PT SCREE MONIKA cannabinoids (THC) Negati ve NG/mL 50 Not Available [facility] [place], [address], 03/05/2022 11:21:44 03/04/20 22 03/04/2022 BUPRE NORPH INE PT SCREE MONIKA urine creatinine 40.7 mg/dL >20 Not Available [address] [address] [place], [address], 03/05/2022 11:21:44 03/04/20 22 03/04/2022 BUPRE NORPH INE PT SCREE MONIKA urine pH 5.80 4.5-9. 0 Not Available [address] [address] [place], [address], 03/05/2022 11:21:44 03/04/20 22 03/04/2022 BUPRE NORPH INE PT SCREE MONIKA specific gravity 1.009 1.003- 1.035 Not Available [address] [address] [place], [address], 03/05/2022 11:21:44 03/11/20 22 03/11/2022 BUPRE NORPH INE PT SCREE MONIKA amphetamines Negati ve NG/mL 1,000 [facility] baron vaughn by [facility] Not Available [address] [address] [place], [address], 03/12/2022 13:54:31 03/11/20 22 03/11/2022 BUPRE NORPH INE PT SCREE MONIKA benzodiazapi olivia Negati ve NG/mL 200 Not Available [facility] [place], [address], 03/12/2022 13:54:31 03/11/20 22 03/11/2022 BUPRE NORPH INE PT SCREE MONIKA buprenorphin e Positi ve NG/mL 5 Not Available [facility] [place], [address], 03/12/2022 13:54:31 03/11/20 22 03/11/2022 BUPRE NORPH INE PT SCREE MONIKA cocaine metabolite Negati ve NG/mL 150 Not Available [facility] [address] [place], [address], 03/12/2022 13:54:31 03/11/20 22 03/11/2022 BUPRE NORPH INE PT SCREE MONIKA opiates Positi ve NG/mL 300 abnormal Not Available [address] [address] [place], [address], 03/12/2022 13:54:31 03/11/20 22 03/11/2022 BUPRE NORPH INE PT SCREE MONIKA oxycodone Negati ve NG/mL 300 Not Available [address] [address] [place], [address], 03/12/2022 13:54:31 03/11/20 22 03/11/2022 BUPRE NORPH INE PT SCREE MONIKA fentanyl Negati ve NG/mL 2 Not Available [address] [address] [place], [address], 03/12/2022 13:54:31 03/11/20 22 03/11/2022 BUPRE NORPH INE PT SCREE MONIKA ethyl alcohol Negati ve mg/dL 10 Not Available [address] [address] [place], [address], 03/12/2022 13:54:31 03/11/20 22 03/11/2022 BUPRE NORPH INE PT SCREE MONIKA methadone metabolite Negati ve NG/mL 300 Not Available [address] [address] [place], [address], 03/12/2022 13:54:31 03/11/20 22 03/11/2022 BUPRE NORPH INE PT SCREE MONIKA cannabinoids (THC) Negati ve NG/mL 50 Not Available [address] [address] [place], [address], 03/12/2022 13:54:31 03/11/20 22 03/11/2022 BUPRE NORPH INE PT SCREE MONIKA urine creatinine 55.1 mg/dL >20 Not Available [address] [address] [place], [address], 03/12/2022 13:54:31 03/11/20 22 03/11/2022 BUPRE NORPH INE PT SCREE MONIKA urine pH 5.50 4.5-9. 0 Not Available [address] [address] [place], [address], 03/12/2022 13:54:31 03/11/20 22 03/11/2022 BUPRE NORPH INE PT SCREE MONIKA specific gravity 1.008 1.003- 1.035 Not Available [address] [address] [place], [address], 03/12/2022 13:54:31 03/11/20 22 03/11/2022 ADMIT FRANCIS OPIAT ES USE admitted opiates use NTP Elect baron vaughn by [facility] No Testi ng Perfo rmed Not Available [address] [address] [place], [address], 03/17/2022 07:29:46 03/25/20 22 03/25/2022 BUPRE NORPH INE PT SCREE MONIKA amphetamines Negati ve NG/mL 1,000 Elect baron olivo d by [facility] Not Available [address] [address] [place], [address], 03/26/2022 14:14:27 03/25/20 22 03/25/2022 BUPRE NORPH INE PT SCREE MONIKA benzodiazapi olivia Negati ve NG/mL 200 Not Available [facility] [place], [address], 03/26/2022 14:14:27 03/25/20 22 03/25/2022 BUPRE NORPH INE PT SCREE MONIKA buprenorphin e Positi ve NG/mL 5 Not Available [facility] 12 [place], [address], 03/26/2022 14:14:27 03/25/20 22 03/25/2022 BUPRE NORPH INE PT SCREE MONIKA cocaine metabolite Negati ve NG/mL 150 Not Available [facility] [place], [address], 03/26/2022 14:14:27 03/25/20 22 03/25/2022 BUPRE NORPH INE PT SCREE MONIKA opiates Negati ve NG/mL 300 Not Available [address] [address] [place], [address], 03/26/2022 14:14:27 03/25/20 22 03/25/2022 BUPRE NORPH INE PT SCREE MONIKA oxycodone Negati ve NG/mL 300 Not Available [facility] [place], [address], 03/26/2022 14:14:27 03/25/20 22 03/25/2022 BUPRE NORPH INE PT SCREE MONIKA fentanyl Negati ve NG/mL 2 Not Available [address] [address] [place], [address], 03/26/2022 14:14:27 03/25/20 22 03/25/2022 BUPRE NORPH INE PT SCREE MONIKA ethyl alcohol Negati ve mg/dL 10 Not Available [facility] [place], [address], 03/26/2022 14:14:27 03/25/20 22 03/25/2022 BUPRE NORPH INE PT SCREE MONIKA methadone metabolite Negati ve NG/mL 300 Not Available [address] [address] [place], [address], 03/26/2022 14:14:27 03/25/20 22 03/25/2022 BUPRE NORPH INE PT SCREE MONIKA cannabinoids (THC) Negati ve NG/mL 50 Not Available [address] [address] [place], [address], 03/26/2022 14:14:27 03/25/20 22 03/25/2022 BUPRE NORPH INE PT SCREE MONIKA urine creatinine 72.8 mg/dL >20 Not Available [address] [address] [place], [address], 03/26/2022 14:14:27 03/25/20 22 03/25/2022 BUPRE NORPH INE PT SCREE MONIKA urine pH 5.20 4.5-9. 0 Not Available [address] [address] [place], [address], 03/26/2022 14:14:27 03/25/20 22 03/25/2022 BUPRE NORPH INE PT SCREE MONIKA specific gravity 1.016 1.003- 1.035 Not Available [address] [address] [place], [address], 03/26/2022 14:14:27 03/25/20 22 03/25/2022 PRESC RIBED DRUG CONFI RMATI ON BUPRE NORPH INE 1, QN, U buprenorphin e 31.0 NG/mL 10 Elect baron olivo d by [facility] Not Available [address] [address] [place], [address], 03/31/2022 06:31:56 03/25/20 22 03/25/2022 PRESC RIBED DRUG CONFI RMATI ON BUPRE NORPH INE 1, QN, U norbuprenorp sebastián 168.7 NG/mL 10 Not Available [address] [place] [address] [place], [address], 03/31/2022 06:31:56 03/25/20 22 03/25/2022 PRESC RIBED DRUG CONFI RMATI ON BUPRE NORPH INE 1, QN, U legend Abbrev iation s LOW - Detec francis but unqua ntifi able OLR - Outsi de of linea r range ATR - Addit ional Testi ng Requi red Not Available [address] [place] [address] [place], [address], 03/31/2022 06:31:56 03/25/20 22 03/25/2022 [facility] RIBED DRUG CONFI RMATI ON BUPRE NORPH INE 1, QN, U billing only ([id number]) Billin g Only Not Available [facility] [place], [address], 03/31/2022 06:31:56 04/08/20 22 04/08/2022 BUPRE NORPH INE PT SCREE MONIKA amphetamines Negati ve NG/mL 1,000 Elect baron olivo d by [facility] Not Available [address] [address] [place], [address], 04/13/2022 09:33:11 04/08/20 22 04/08/2022 BUPRE NORPH INE PT SCREE MONIKA benzodiazapi olivia Negati ve NG/mL 200 Not Available [facility] [place], [address], 04/13/2022 09:33:11 04/08/20 22 04/08/2022 BUPRE NORPH INE PT SCREE MONIKA buprenorphin e Positi ve NG/mL 5 Not Available [facility] [place], [address], 04/13/2022 09:33:11 04/08/20 22 04/08/2022 BUPRE NORPH INE PT SCREE MONIKA cocaine metabolite Negati ve NG/mL 150 Not Available [facility] [place], [address], 04/13/2022 09:33:11 04/08/20 22 04/08/2022 BUPRE NORPH INE PT SCREE MONIKA opiates Negati ve NG/mL 300 Not Available [facility] [place], [address], 04/13/2022 09:33:11 04/08/20 22 04/08/2022 BUPRE NORPH INE PT SCREE MONIKA oxycodone Negati ve NG/mL 300 Not Available [address] [address] [place], [address], 04/13/2022 09:33:11 04/08/20 22 04/08/2022 BUPRE NORPH INE PT SCREE MONIKA fentanyl Positi ve NG/mL 2 abnormal Not Available [address] [address] [place], [address], 04/13/2022 09:33:11 04/08/20 22 04/08/2022 BUPRE NORPH INE PT SCREE MONIKA ethyl alcohol Positi ve mg/dL 10 abnormal Not Available [address] [address] [place], [address], 04/13/2022 09:33:11 04/08/20 22 04/08/2022 BUPRE NORPH INE PT SCREE MONIKA methadone metabolite Negati ve NG/mL 300 Not Available [address] [address] [place], [address], 04/13/2022 09:33:11 04/08/20 22 04/08/2022 BUPRE NORPH INE PT SCREE MONIKA cannabinoids (THC) Negati ve NG/mL 50 Not Available [address] [address] [place], [address], 04/13/2022 09:33:11 04/08/20 22 04/08/2022 BUPRE NORPH INE PT SCREE MONIKA urine creatinine 42.7 mg/dL >20 Not Available [address] [address] [place], [address], 04/13/2022 09:33:11 04/08/20 22 04/08/2022 BUPRE NORPH INE PT SCREE MONIKA urine pH 4.10 4.5-9. 0 low Not Available [address] [address] [place], [address], 04/13/2022 09:33:11 04/08/20 22 04/08/2022 BUPRE NORPH INE PT SCREE MONIKA specific gravity 1.035 1.003- 1.035 Not Available [address] [address] [place], [address], 04/13/2022 09:33:11 04/08/20 22 04/08/2022 OPIAT E W/ FENTA NYL 6-acetylmorp sebastián Negati ve NG/mL 10 Elect baron olivo d by [facility] Not Available [address] [address] [place], [address], 04/16/2022 09:49:50 04/08/20 22 04/08/2022 OPIAT E W/ FENTA NYL codeine Negati ve NG/mL 50 Not Available [facility] [place], [address], 04/16/2022 09:49:50 04/08/20 22 04/08/2022 OPIAT E W/ FENTA NYL hydrocodone Negati ve NG/mL 50 Not Available [facility] [place], [address], 04/16/2022 09:49:50 04/08/20 22 04/08/2022 OPIAT E W/ FENTA NYL hydromorphon e Negati ve NG/mL 50 Not Available [facility] [place], [address], 04/16/2022 09:49:50 04/08/20 22 04/08/2022 OPIAT E W/ FENTA NYL morphine Negati ve NG/mL 50 Not Available [facility] [place], [address], 04/16/2022 09:49:50 04/08/20 22 04/08/2022 OPIAT E W/ FENTA NYL norhydrocodo ne Negati ve NG/mL 100 Not Available [facility] [place], [address], 04/16/2022 09:49:50 04/08/20 22 04/08/2022 OPIAT E W/ FENTA NYL fentanyl Negati ve NG/mL 20 Not Available [address] [place] [address] Kyle Goff [place], [address], 04/16/2022 09:49:50 04/08/20 22 04/08/2022 OPIAT E W/ FENTA NYL norfentanyl Negati ve NG/mL 20 Not Available [address] [place] [address] Kyle Goff [place], [address], 04/16/2022 09:49:50 04/08/20 22 04/08/2022 OPIAT E W/ FENTA NYL tramadol Negati ve NG/mL 100 Not Available [address] [place] [address] [place], [address], 04/16/2022 09:49:50 04/08/20 22 04/08/2022 OPIAT E W/ FENTA NYL legend Abbrev iation s OLR - Outsi de of linea r range Not Available [address] [place] [address] [place], [address], 04/16/2022 09:49:50 04/08/20 22 04/08/2022 OPIAT E W/ FENTA NYL billing only ([id number]) Billin g Only Not Available [place] [address] [place], [address], 04/16/2022 09:49:50 Result Notes None recorded. Problems Name Problem SNOMED Code Status Onset Date Resolution Date Notes Provider Name and Address Organization Details Recorded Time Knee joint valgus deformity 613061197 Active 2020 on disability Not Available [facility] 05:31:38 Depressiv e disorder 55055526 Active 2020 [facility] disability [facility] 05:31:38 Type 2 diabetes mellitus 07678171 Active 2020 Not Available [facility] 05:31:38 Essential hypertens ion 50382616 Active 2020 Not Available [facility] 05:31:38 Opioid dependenc e 33050686 Active 2021 Mary Carmen Friedman NP [address] [place], [address] , [facility] 2 09:46:10 Restless legs 15933006 Active 2021 Mary Carmen Friedman NP [address] [place], [address] , [facility] 2 13:15:26 Adhesive capsuliti s of shoulder 925046538 Active 2021 Mary Carmen Friedman NP [address] [place] [address], [place], [address] , [facility] 2 13:08:29 Viral hepatitis C 27488697 Active 2021 Mary Carmen Friedman NP [address] [place] [address], [place], [address] , [facility] 2 13:44:29 Problem Notes None recorded. Procedures Surgical History Date Name Laterality Status Provider Name and Address Organization Details Recorded Time 04/22/2022 48269, G0480, G0481 completed [facility] 04/22/2022 09:42:02 02/25/2022 19440, G0480, G0481 completed [facility] 02/25/2022 13:24:56 10/22/2021 72444, G0480, G0481 completed Mary Carmen Friedman NP [address] [place] [address], [address], [facility] 10/22/2021 09:03:24 Imaging Results None recorded. Procedure Notes None recorded. Medical Equipment None Reported. Allergies Allergen ID Allergen Name Allergen Category Reaction Reaction Severity Criticality Documentation Date Start Date Code Code System Note Provider Name and Address Organization Details Recorded Time 2445 lisinopri l medicatio n cough Not available Not available 10/17/2021 51416 RxNorm Not Available [facility] 06:25:20 2454 codeine medicatio n cough Not available Not available 10/17/2021 2670 RxNorm Not Available [facility] 06:25:20 Medications Name Sig Start Date Stop [...] % 92 % 162 mm[Hg] 82 mm[Hg] [facility] [employer] 2 13:21:14 Date Recorded Body height Body temperature Heart rate Oxygen saturation Oxygen saturation in Arterial blood by Pulse oximetry Systolic blood pressure Diastolic blood pressure Provider Name and Address Organization Details Last Updated DateTime 2 157.48 cm 96.9 [degF] 90 /min 91 % 91 % 162 mm[Hg] 82 mm[Hg] [facility] [employer] 2 12:48:42 Date Recorded Body height Body temperature Heart rate Oxygen saturation Oxygen saturation in Arterial blood by Pulse oximetry Systolic blood pressure Diastolic blood pressure Provider Name and Address Organization Details Last Updated DateTime 2 157.48 cm 96.4 [degF] 106 /min 94 % 94 % 148 mm[Hg] 78 mm[Hg] [facility] 13:[facility]08 Date Recorded Body height Body [...] % 97 % 162 mm[Hg] 82 mm[Hg] [facility] 2 09:43:47 Social History Question Answer Notes LastModified by Organizat ion Details LastModified Time *Housing Stable - Safe Information not available 12/16/2021 *Employment Retired/Disabl ed Information not available 12/16/2021 *Food Adequate Information no t available 12/16/2021 * Not A [place] Information not available 12/16/2021 *Job Training/Educat ion/Literacy [...] *Primary Care Provider Yes Dr. Vargas [facility] Information not available 12/16/2021 *Other Medical [...] SNOMED-CT Code Diagnosis ICD10 Code Diagnosis Note [id number] [facility] [place] [address] [facility] [place] [address] 08/26/2021 00:00:00 08/26/2021 14:18:42 [id number] [facility] [address] [facility] [place] [address] 08/19/2021 00:00:00 08/19/2021 14:43:24 [id number] [facility] [address] [facility] [place] [address] 09/24/2021 00:00:00 09/24/2021 13:42:39 [id number] [facility] [address] [facility] [place] [address] 09/17/2021 00:00:00 09/17/2021 14:33:56 [id number] [facility] [place] [address] [facility] [place] [address] 10/01/2021 00:00:00 10/01/2021 13:55:43 [id number] [facility] [place] [address] [facility] [place] [address] 09/02/2021 00:00:00 09/02/2021 13:36:53 [id number] [facility] [place] [address] [facility] [place] [address] 10/15/2021 00:00:00 10/15/2021 10:49:59 [id number] 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 [facility] [address] [facility],[address] [place] [address] 10/22/2021 13:32:17 10/22/2021 13:53:31 Opioid dependence [id number] F11.20 unstable - new to care Essential hypertension [id number] I10 unstable [id number] [facility], 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 [facility] [address] [facility],[address] [place] [address] 11/05/2021 13:31:36 11/05/2021 14:04:00 Opioid dependence [id number] F11.20 unstable - recent use [id number] [facility], 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 [facility] [address] [facility],[address] [place] [address] 11/12/2021 13:32:01 11/12/2021 13:50:44 Opioid dependence [id number] F11.20 unstable - recent use [id number] [facility], 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 [facility] [address] [facility],[address] [place] [address] 11/19/2021 13:28:46 11/19/2021 13:50:12 Opioid dependence 17779063 F11.20 unstable - recent use [id number] [facility], 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 [facility] [address] [facility],[address] [place] [address] 11/26/2021 13:22:00 11/26/2021 13:33:43 Opioid dependence [id number] F11.20 unstable - recent use [id number] [facility], 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 [facility] [address] [facility],[address] [place] [address] 12/10/2021 13:24:47 12/10/2021 13:41:04 Opioid dependence 59909141 F11.20 unstable - recent use [id number] [facility], 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 [facility] [address] [facility],[address] [place] [address] 12/24/2021 13:20:13 12/24/2021 13:37:31 Opioid dependence 13815098 F11.20 unstable - recent use [id number] [facility], 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 [facility] [address] [facility],[address] [place] [address] 12/31/2021 12:59:42 12/31/2021 13:20:07 Opioid dependence 45863654 F11.20 unstable - recent use Restless legs [id number] G 25.81 unstable [id number] [facility], 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 [facility] [address] [facility],[address] [place] [address] 01/07/2022 10:17:53 01/07/2022 10:44:51 Opioid dependence 76081707 F11.20 unstable - recent use [id number] [facility], 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 [facility] [address] [facility],[address] [place] [address] 02/18/2022 13:27:58 02/18/2022 13:45:49 Opioid dependence 12120672 F11.20 unstable - recent use [id number] [facility], 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 [facility] [address] [facility],[address] [place] [address] 01/21/2022 13:13:05 01/21/2022 13:28:10 Opioid dependence 22962482 F11.20 unstable - recent use [id number] [facility], 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 [facility] [address] [facility],[address] [place] [address] 01/28/2022 13:19:31 01/28/2022 13:28:05 Opioid dependence 05520066 F11.20 unstable - recent use [id number] [facility], 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 [facility] [address] [facility],[address] [place] [address] 02/25/2022 13:21:54 02/25/2022 13:40:25 Opioid dependence 88492053 F11.20 unstable - recent use [id number] Mary Carmen Friedman, 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 [facility] [address] [facility],[address] [place] [address] 03/04/2022 13:13:48 03/04/2022 13:29:11 Opioid dependence 09777538 F11.20 unstable - recent use [id number] Mary Carmen Friedman, 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 [facility] [address] [facility],[address] [place] [address] 03/11/2022 12:45:57 03/11/2022 13:10:12 Opioid dependence 00445160 F11.20 unstable - recent use [id number] Mary Carmen Friedman, 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 [facility] [address] [facility],[address] [place] [address] 03/25/2022 13:36:46 03/25/2022 13:50:49 Opioid dependence 36456061 F11.20 unstable [id number] Mary Carmen Friedman, 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 [facility] [address] [facility],[address] [place] [address] 04/08/2022 13:25:18 04/08/2022 13:47:59 Opioid dependence 86922081 F11.20 unstable [id number] Delma Green, 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 [facility] [address] [facility] [place] [address] 04/22/2022 09:39:24 04/22/2022 10:01:13 Opioid dependence 11056033 F11.20 UNSTABLE [id number] Dee Thompson [facility] [address] [place] [address],[address] [place] [address] 05/06/2022 11:21:43 05/06/2022 13:21:21 [id number] Dee Thompson [facility] [address] [facility],[address] [place] [address] 05/18/2022 08:54:48 05/18/2022 08:59:21 [id number] DALTON Kraus [facility] [address] [place] [address] 05/20/2022 11:29:21 05/20/2022 11:32:37 [id number] DALTON Kraus [facility] [address] [facility] [facility] [address] 06/16/2022 13:49:39 06/16/2022 13:54:40 Health Concerns Section Related Observation LastModified by Organization Detai ls LastModified Time None Recorded Concern Status LastModified by Organization Details LastModified Time None Recorded Advance Directives Directive None Recorded Payers Encounter Date Sequence Insurance Name Policy Number Policy Salmon Covered Member ID Salmon Member ID Guarantor Name 03/04/2022 2 [employer] (MEDICAID) Lea Vasquez [id number] Lea Vasquez 03/04/2022 1 [facility] (MEDICARE REPLACEMENT/A DVANTAGE - PPO) [id number] Lea Vasquez [id number] Lea Vasquez 03/11/2022 2 [employer] (MEDICAID) Lea Vasquez [id number] Lea Vasquez 03/11/2022 1 [facility] (MEDICARE REPLACEMENT/A DVANTAGE - PPO) [id number] Lea Vasquez [id number] Lea Vasquez 03/25/2022 2 [employer] (MEDICAID) Lea Vasquez [id number] Lea Vasquez 03/25/2022 1 [facility] (MEDICARE REPLACEMENT/A DVANTAGE - PPO) [id number] Lea Vasquez [id number] Lea Vasquez 04/08/2022 2 [employer] (MEDICAID) Lea Vasquez [id number] Lea Vasquez 04/08/2022 1 [facility] (MEDICARE REPLACEMENT/A DVANTAGE - PPO) [id number] Lea Vasquez [id number] Lea Vasquez 04/22/2022 2 [employer] (MEDICAID) Lea Vasquez [id number] Lea Vasquez 04/22/2022 1 [facility] (MEDICARE REPLACEMENT/A DVANTAGE - PPO) [id number] Lea Vasquez [id number] Lea Vasquez Notes Date Note Type Note Provider Name and Address Organization Details Recorded Time 03/04/2022 text/html This patient is here today for their follow-up MAT visit. They are being treated for OUD with buprenorphine PLEASE SEE A & P SECTION FOR FULL VISIT NOTE Mary Carmen Friedman NP [address] [place], [address], [facility] [employer] [facility] 03/04/2022 14:00:30 03/11/2022 text/html This patient is here today for their follow-up MAT visit. They are being treated for OUD with buprenorphine PLEASE SEE A & P SECTION FOR FULL VISIT NOTE Mary Carmen Friedman NP [address] [place], [address], [facility] [employer] [facility] 03/11/2022 13:32:58 03/25/2022 text/html This patient is here today for their follow-up MAT visit. They are being treated for OUD with buprenorphine PLEASE SEE A & P SECTION FOR FULL VISIT NOTE Mary Carmen Friedman NP [address] [place], [address], [facility] [employer] [facility] 03/25/2022 14:12:31 04/08/2022 text/html This patient is here today for their follow-up MAT visit. They are being treated for OUD with buprenorphine PLEASE SEE A & P SECTION FOR FULL VISIT NOTE Mary Carmen Friedman NP [address] [place], [address], [facility] [employer] [facility] 04/08/2022 13:57:35 04/22/2022 text/html This patient is here today for their follow-up MAT visit. They are being treated for OUD with buprenorphine. PLEASE SEE A & P SECTION FOR FULL VISIT NOTE Delma Green NP [address] [place], [address], [facility] [employer] [facility] 04/22/2022 10:07:31 OBGyn Episode No OBEpisode recorded.
--- OUTSIDE RECORDS SUMMARY | 2024-11-10 15:28 | XMS_ITS | Continuity of Care Document ---
Author Organization [facility] Address [address] [place] [address] Care Team Providers Care Diamond Cleaner Name Role Phone [facility] OPHTHALM[facility] Ophtha lmologist RACHELL FIORE Applications Systems Analyst Assessment No assessment recorded. Plan of Treatment Reminders Order Date Submit Date Provider Last Modified By Organization Details Last Modified Time Details Appointments Follow Up 2024 01:50P M SHAORN HENDESRON Not available Not available Not available Follow Up 2024 02:30P M SHARON HENDERSON Not available Not available Not available Lab None recorded . Referral None recorded . Procedures None recorded . Surgeries None recorded . Imaging None recorded . Medication Orders None recorded . Patient TargetsNo targets recorded. Patient InstructionsNo instructions recorded. Reason for Referral None Reported. Results Created Date Observation Date Name Description Value Unit Range Abnormal Flag Note LastModifiedBy Organization Detail LastModifiedTime 10/07/20 24 10/07/2024 CT ABD pelvi s wo IV or oral contr ast [facility] RADIOL OGY Jeff Mchugh [id number] RADIOL OGY TRANSC RIPTIO N REPORT _ Patien t Name: ERROL RUTH MS ZEESHAN B MRN: Sex: : Age: [id number] F [id number] Accoun t: Access ion: Admit: StayTy pe: [id number] 2023 E Ordere d: Order ID: Submit curtis: Rosetta urena Provid er: 2023 14:14 [id number] CAROLINA MCINTOSH curtis: Techno logist : Result [...] If you are a health care [facility] er and have any questi ons regard ing this report , please contac t the number below. For patien ts who have questi ons please contac t the health care profes sional that reques curtis your imagin g first. Electr onical ly signed by: Júnior Vick MD Radiol ogcourtney Krystaljaya schaefer ([phone]), at 2023 3:51 PM INTERFACE [facility] (Lab) [address], [place], [address], 10/07/2024 15:57:10 11/01/19 25 11/01/2024 xr chest tiffany ble or 1V [facility] RADIOL OGY Jeff Mchugh [id number] RADIOL OGY TRANSC RIPTIO N REPORT _ Patien t Name: ERROL RUTH MS MRN: Sex: : Age: [id number] F [id number] Accoun t: Access ion: Admit: StayTy pe: [id number] 025 E Ammon d: Order ID: Submit curtis: Orderi ng Provid er: 2024 01:40 [id number] ABBI JALLOH curtis: Techno logist : Result [...] ons please contac t the [facility] requ[facility] curtis your imagin g first. Electr onical ly signed by: Lala Patel MD Radiol jimmy schaefer ([phone]), at 025 2:13 AM INTERFACE [facility] (Lab) [address] [place] [address], [address], 11/01/2024 02:19:02 11/02/19 25 11/01/2024 EKG order jude urena 12 [facility] [address] EKG TRANSC RIPTIO N REPORT _ Accoun t: Access ion: Admit: StayTy pe: [id number] 025 E/R Observ ation: Order ID: Submit curtis: Rosetta urena Provid er: 2024 02:16 [id number] ABBI JALLOH _ [place] [id number] [facility] Test Date: 11-01 Pat Name: ABELINO RUTH MS Depart ment: Burak Smith t ID: [id number] Room: Gender : Brit Munson emir: : [birth year] Reques curtis By: ABBI Reynoso Order Number : [id number] Charbel junior MD: Gentry Finney Measur ements Interv als [place] Rate: 104 P: 76 CO: 176 QRS: -32 QRSD: 96 T: 0 QT: 370 QTc: 486 Interp retive Statem ents Sinus tachyc ardia Left axis deviat ion Compar ed to ECG 2022 05:17: 21 Left-a xis deviat ion now presen t Sinus rhythm no longer presen t Electr onical ly Signed On 025 8:26:2 3 EST by Gentry Finney INTERFACE [facility] (Lab) [address] [place] [address], [address], 11/02/2024 08:28:22 11/02/19 25 11/01/2024 CT chest wo [facility] Jeff Mchugh [address] RADIOL OGY TRANSC SUKHDEEP Schaefer REPORT _ Patimichael t Name: FARAZ BUCKLEY,ERROL BYERS B MRN: Sex: : Age: [id number] F [id number] Accoun t: Access ion: Admit: StayTy pe: [id number] 025 I Ammon d: Order ID: Submit curtis: Rosetta ayanna Flood er: 2024 08:54 [id number] CLIVE BONNER curtis: Techno logist : Result [...] tive of anemia Thank you for gail lopez partic ipate in the care of this [...] ly signed by: Jose Lopez MD Radiol jimmy Adams olive ([phone]), at 025 9:30 AM INTERFACE [facility] (Lab) [address] [place] [address], [address], 11/02/2024 09:37:40 11/02/19 25 11/02/2024 nm lung venti latio n and perfu ronan* [facility] [place]OL [place] [address] RADIOL OGY TRANSC RIPTIO N REPORT _ Patien t Name: FARAZ BUCKLEY,ERROL CAINSIERRA B MRN: Sex: : Age: [id number] F [id number] Accoun t: Access ion: Admit: StayTy pe: [id number] 025 I Ammon d: Order ID: Submit curtis: Saratrey ayanna Provid er: 2024 14:46 [id number] GARTH NORWOOD Comple curtis: Techno logist : [...] were obtain ed in the anteri or, exceptional children's teacher ior, latera l and obliqu e projec tions. This was follow ed by bahman mendez on of 4 mCi of techne tium-9 [...] If you are a health care [facility] er and have any questi ons regard ing this report , please contac t the number below. For patien ts who have questi ons please contac t the [facility] care [facility] sional that reques curtis your imagin g first. Electr onical ly signed by: Júnior Vick MD Radiol jimmy Adams n ([phone]), at 025 11:46 AM [facility] (Lab) [address] [place] [address], [address], 11/02/2024 11:53:05 Result Notes None recorded. Problems Name Problem SNOMED Code Status Onset Date Resolution Date Notes Provider Name and Address Organization Details Recorded Time Complica tion due to diabetes mellitus 50724301 Active [address], [place], [address] , [facility] 4 14:41:01 Gastroes ophageal reflux disease without esophagi tis 458767817 Active [address], [place], [address] , [facility] 4 15:41:02 Sleep apnea 13782593 Active [address], [place], [address] , [facility] 15:41:33 Dyspnea on exertion 77209630 Active [address], [place], [address] , [facility] 4 16:02:44 Smoker 01809501 Active [address], [facility] [address] , [facility] 16:03:44 Legal blindnes s 02382964 Active [address], [facility] [address] , [facility] 16:04:00 Toenail thickene d 319807447 Active [address], [facility] [address] , [facility] 16:07:44 Pruritic rash 10476852 Active [address], [place], [address] , [facility] 16:09:31 Retroper itoneal lymphade nopathy 869943676 Active 2023 burak MIRAMONTES RN null, [facility] 5 12:10:08 Renal failure syndrome 00820949 Active 2023 burak MIRAMONTES RN null, [facility] 5 12:10:41 Acute exacerba tion of chronic obstruct vishnu pulmonar y disease 069419759 Active [address], [place], [address] , [facility] 5 15:11:03 Acute renal insuffic iency 717788881 Active [address], [facility] [address] , [facility] 5 16:57:59 Chronic kidney disease stage 5 889253994 Active 2024 ULISES BARKER MD [address], [place], [address] , [facility] 5 11:20:54 [facility] hyperten ronan 60624025 Active 2005 [facility] 4 09:53:15 Hyperlip idemia 37843863 Active 2005 [facility] 4 10:08:20 Uncompli cated moderate persiste nt asthma 241607674 Active 2005 [facility] 4 10:24:46 Severe obesity 41496493722 104 Active 2005 [facility] 4 10:22:09 Chronic hepatiti s C 894894449 Active 2003 pos viral load not treated [facility] 4 09:47:44 Pain of right shoulder joint 79887428536 735837 Active 2014 [facility] 4 10:17:43 Neuropat hy due to type 2 diabetes mellitus 27445155307 9106 Active 2014 uncontro lled, w/neurol o comps [facility] 4 10:17:28 Idiopath ic osteoart hritis 110531040 Active 2014 DJD, knees, bilatera l [facility] 4 10:08:49 Renal disorder due to type 2 diabetes mellitus 489522375 Active 2015 Diabetic nephropa thy [facility] 4 10:21:57 Derangem ent of right knee 38023147076 672198 Completed 201505/05/2016 Problem Code: M23.91; Problem Code Type: ICD-10; Not Available [facility] 3 04:12:16 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 58985334751 9104 Active 2015 (not billable after 6) [facility] 4 10:16:21 Cocaine abuse 16818070 Active 2016 episodic Kristie Fran [facility] 4 09:50:22 Tobacco use cessatio n educatio n Active 2016 [place] Fran [facility] 4 10:22:41 Gallblad mark calculus with acute cholecys titis and no obstruct ion 914826431 Completed 201612/29/2016 Problem Code: K80.00; Problem Code Type: ICD-10; Not Available [facility] 3 04:12:17 Acute asthma 298383376 Completed 201604/13/2017 Problem Code: J45.901; Problem Code Type: ICD-10; Not Available [facility] 3 04:12:17 Cellulit is 725122070 Completed 201607/16/2017 Problem Code: L03.90; Problem Code Type: ICD-10; Not Available [facility] 3 04:12:17 Atopic dermatit is 52351893 Active 2017 [place] [facility] 4 09:45:01 Impetigo 11567750 Completed 201705/03/2018 Problem Code: L01.00; Problem Code Type: ICD-10; Not Available [facility] 3 04:12:17 Screenin g mammogra phy Completed 201804/20/2019 Problem Code: Z12.31; Problem Code Type: ICD-10; Not Available [facility] 3 04:12:18 History of diabetic foot ulcer 36659603791 521117 Active 2018 [facility] 4 10:01:51 Chronic obstruct vishnu pulmonar y disease 45813700 Active 2018 Asthma with COPD [facility] 4 09:48:31 Anemia 714559220 Active 2018 [facility] 4 09:39:01 Albumin level - finding 068234506 Active 2018 decrease d [facility] 4 09:37:16 Peripher al venous insuffic iency 84992984 Active 2018 Stasis ulcer [facility] 4 10:18:18 Cough 81258662 Completed 201908/22/2020 Problem Code: R05; Problem Code Type: ICD-10; Not Available [facility] 3 04:12:19 Endocrin e/metabo lic screenin g Completed 202012/28/2020 Problem Code: Z13.29; Problem Code Type: ICD-10; Not Available [facility] 3 04:12:19 Counseli ng Active 2020 Immuniza tion counseli ng [facility] 4 09:51:24 Generali zed anxiety disorder 31612350 Active 2020 [facility] 4 10:01:19 Vomiting 397617078 Completed 202006/26/2021 Problem Code: R11.10; Problem Code Type: ICD-10; Not Available [facility] 3 04:12:19 Insect bite Completed 202007/09/2021 Not Available [facility] 3 04:12:20 Cirrhosi s of liver 01955685 Active 2022 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 with possible contribu tion of [place], decompen sated [facility] 4 09:49:47 Jaundice 04819904 Active 2022 [facility] 4 10:09:01 Muscle weakness 64271526 Active 2022 (general ized) [facility] 4 10:16:46 Opioid abuse 0114395 Completed 202209/28/2023 Problem Code: F11.10; Problem Code Type: ICD-10; Not Available [facility] 4 05:34:22 Lichen simplex chronicu s 20405647 Active 2022 Neuroder matitis [facility] 4 10:10:12 History of osteomye litis 393222210 Active 2022 [facility] 4 10:05:22 Opioid abuse 3087255 Completed 201807/14/2023 03/04/20 21 - Comments only - Sharon Henderson MD - offered scg for OBT but she states she plans to try to establis h tx thru [facility]. Not interest ed in Suboxone or Vivitrol ; might be interest ed in Sublocad e. Problem Code: F11.10; Problem Code Type: ICD-10; Not Available [facility] 3 04:12:22 Cholelit hiasis without obstruct ion 15031392 Completed 201512/22/2016 Problem Code: K80.20; Problem Code Type: ICD-10; Not Available [facility] 3 04:12:22 Candidia sis of vagina 12487262 Completed 201503/27/2016 Problem Code: B37.3; Problem Code Type: ICD-10; Not Available [facility] 3 04:12:23 Traumati c or non-trau matic injury 459221807 Completed 201607/14/2023 Problem Code: T14.8; Problem Code Type: ICD-10; Not Available [facility] 3 04:12:23 Disorder of teeth AND/OR supporti ng luis miguel es 218305878 Completed 201503/17/2016 Problem Code: K08.8; Problem Code Type: ICD-10; Not Available [facility] 3 04:12:23 Uncompli cated asthma 427551796 Completed 200507/14/2023 Problem Code: J45.909; Problem Code Type: ICD-10; Not Available [facility] 3 04:12:23 Hyperten sive disorder 35239266 Completed 200507/14/2023 Not Available [facility] 3 04:12:24 Scar conditio ns and fibrosis of skin 656715994 Completed 201604/23/2017 Problem Code: L90.5; Problem Code Type: ICD-10; Not Available [facility] 3 04:12:24 Human papillom a virus infectio n 878135467 Completed 201607/14/2023 Problem Code: B97.7; Problem Code Type: ICD-10; Not Available [facility] 3 04:12:24 Morbid obesity 744193669 Completed 200507/14/2023 Not Available [facility] 3 04:12:24 Foot ulcer due to type 2 diabetes mellitus 67505100771 00 Completed 201512/22/2016 01/20/20 19 - Comments [...] Code Type: ICD-10; AM[facility] Rizzo [facility] 4 09:59:50 Periapic al abscess 317415407 Completed 201403/17/2016 Problem Code: K04.7; Problem Code Type: ICD-10; Not Available [facility] 3 04:12:25 Drug abuse 79577744 Completed 200707/14/2023 Problem Code: 305.90; Problem Code Type: ICD-9; Not Available [facility] 3 04:12:25 Opioid dependen ce in [facility] n 207224978 Completed 201807/14/2023 09/26/20 19 - Comments only [...] F11.21; Problem Code Type: ICD-10; Not Available [facility] 3 04:12:25 Gynecolo gic examinat ion Completed 201602/02/2017 Problem Code: Z01.419; Problem Code Type: ICD-10; Not Available [facility] 3 04:12:26 Nodule on toe 017085550 Completed 201605/25/2019 Not Available [facility] 3 04:12:26 Pain of right knee joint 53234573483 4100 Completed 201502/02/2017 Problem Code: M25.561; Problem Code Type: ICD-10; Not Available [facility] 3 04:12:26 Candidia sis of skin 97251432 Completed 201503/27/2016 Problem Code: B37.2; Problem Code Type: ICD-10; Not Available [facility] 3 04:12:26 Dysuria 18293786 Completed 201505/07/2016 Problem Code: R30.0; Problem Code Type: ICD-10; Not Available [facility] 3 04:12:27 Retinopa thy due to type 2 diabetes mellitus 538872555 Completed 201507/14/2023 Problem Code: E11.319; Problem Code Type: ICD-10; Not Available [facility] 3 04:12:27 Infectio n of skin and/or subcutan eous tissue 23668283 Completed 202204/30/2023 Problem Code: L08.89; Problem Code Type: ICD-10; Not Available [facility] 3 04:12:27 Tobacco dependen ce caused by cigarett es 60415283091 818913 Completed 200305/25/2019 Problem Code: F17.210; Problem Code Type: ICD-10; Not Available [facility] 3 04:12:27 Opioid dependen ce 36452503 Completed 200309/04/2015 05/25/20 19 - Comments only - [facility]. Problem Code: F11.20; Problem Code Type: ICD-10; Not Available [facility] 3 04:12:28 Asthma 946050431 Completed 200507/14/2023 Not Available [facility] 3 04:12:28 Pain of joint of knee 1138454581 Completed 201407/14/2023 Problem Code: M25.569; Problem Code Type: ICD-10; Not Available [facility] 3 04:12:28 Cellulit is of right lower limb 91701267009 925315 Completed 201805/25/2019 Problem Code: L03.115; Problem Code Type: ICD-10; Not Available [facility] 3 04:12:28 Shoulder joint pain 701609923 Completed 201407/14/2023 Problem Code: 719.41; Problem Code Type: ICD-9; Not Available [facility] 3 04:12:29 Smoker 78158780 Completed 200307/14/[address], [place], [address] , [facility]. 4 16:03:44 Chronic ulcer of foot 240944309 Completed 201601/05/2017 Problem Code: L97.529; Problem Code Type: ICD-10; Not Available [facility] 3 04:12:29 Type 2 diabetes mellitus without complica tion 757798564 Completed 200307/14/2023 Problem Code: 250.00; Problem Code Type: ICD-9; MD Shailesh [address], [place], [address] , [facility] 4 14:43:16 Pain of left knee joint 30829179189 4107 Completed 201407/14/2023 Problem Code: M25.562; Problem Code Type: ICD-10; Not Available [facility] 3 04:12:30 Depressi ve disorder 53064536 Completed 200307/14/[address], [place], [address] , [facility] 4 14:41:17 Hypergly cemia due to type 2 diabetes mellitus 96272525080 9109 Completed 200309/04/2015 Problem Code: E11.65; Problem Code Type: ICD-10; Not Available [facility] 3 04:12:30 Chest pain 27530233 Completed 201605/25/2019 Problem Code: R07.89; Problem Code Type: ICD-10; Not Available [facility] 3 04:12:31 Drug dependen ce 043913437 Completed 200307/14/2023 Problem Code: 304; Problem Code Type: ICD-9; Not Available [facility] 3 04:12:31 Cellulit is of toe of right foot 75029378578 359085 Completed 201505/11/2016 Problem Code: L03.031; Problem Code Type: ICD-10; Not Available [facility] 3 04:12:31 Osteoart hritis of knee 939412500 Completed 201402/02/2017 Problem Code: M17.9; Problem Code Type: ICD-10; Not Available [facility] 3 04:12:32 History of infectio us disease 260153505 Completed 201409/04/2015 Problem Code: Z86.19; Problem Code Type: ICD-10; Kristie Fran [facility], [facility]. 4 10:05:01 Tobacco user 114387129 Completed 200508/06/2015 Not Available [facility] 3 04:12:32 Viral screenin g Completed 202209/10/2023 Problem Code: Z11.52; Problem Code Type: ICD-10; Not Available [facility] 4 05:34:15 Acute upper respirat ory infectio n 82191789 Completed 202208/18/2023 Problem Code: J06.9; Problem Code Type: ICD-10; Not Available [facility] 4 05:34:15 Type 2 diabetes mellitus without complica tion 893289231 Completed 202309/01/2024 Problem Code: 250.00; Problem Code Type: ICD-9; SHARON HENDERSON MD [address], [place], [address] [facility] 4 14:43:16 Asthma-c hronic obstruct vishnu pulmonar y disease overlap syndrome 84967102796 616523 [facility]. 4 09:39:21 Decompen sated cirrhosi s of liver 219661401 Active 2023 Child Bourgeois score 8/Class B as of 12/2022 [facility] 4 09:51:34 Visual impairme nt 363300941 Active 2023 [facility], [facility] 4 10:29:20 Thickene d nails 063457867 Active 2023 [facility], [facility] 4 10:22:14 Thickeni ng of skin 50212361 Completed 202309/01/2024 SHARON HENDERSON MD [address], [place], [address] , [facility] 4 14:43:15 Acquired hammer toes of bilatera l feet 97443659082 189983 Active 2023 [facility] 4 09:37:02 History of amputati on of right foot 56002729265 182915 Active 2023 [facility] 4 10:01:25 Combined form of senile cataract 08497566 Active 2023 [facility] 4 09:50:32 Unintent ional weight loss 313946748 Active 2022 [facility] 4 10:24:46 History of amputati on of lesser toe 648268705 Active 2022 [facility] 4 09:38:36 History of intraven ous drug abuse 44580442243 575077 Active 2007 heroin [facility] 4 09:40:14 Left ventricu lar hypertro phy 23701314 Active 2015 mild concentr ic 3/16 echo (nl EF) [facility] 4 09:47:08 Follicul itis 35716066 Active 2022 [facility] 4 09:52:22 Peripher al edema 460960521 Active 2014 [facility] 4 09:52:55 Mild persiste nt asthma 106664580 Active 2022 with acute exacerba tion [facility] 4 09:54:28 Family history of Alzheime r's disease 407144002 Active 2018 mother age 50, maternal grandmot her, maternal aunts and uncles; no genetic testing done [facility] 4 09:56:26 Diabetic foot ulcer 450809577 Active 2022 [facility] 4 09:59:46 History of cholecys tectomy 750959674 Active 2016 laparosc opic, 01/01 [facility] 4 10:00:55 History of human papillom a virus infectio n 05891292770 9102 Active 01/01; nl pap; neg colpo 04/03 incl ECC; neg pap 11/05; 5 yr f/u [facility] 4 10:04:56 History of opioid abuse 00818381268 9100 Active 2018 Hx of opioid abuse -- [facility] resumed suboxone 09/07 [facility] 4 10:08:01 Edfareed 355826432 Active 2015 s/p complete extr due to advanced caries 03/02 [facility] 4 10:13:37 Major depressi ve disorder 300252855 Active 2022 Major depressi on [facility] 4 10:15:28 Traumati c partial amputati on of right great toe Active 2018 initial encounte r [facility] 4 10:23:54 Stasis dermatit is 30066193 Active 2021 Venous stasis dermatit is [facility] 4 10:30:44 Diabetes mellitus 49582062 Completed 202309/01/[address], [facility] [address] , [facility] 4 14:43:16 Type 2 diabetes mellitus 77231817 Completed 202309/01/[address], [place] [address] , [facility] 4 14:43:16 Obesity 203073838 Active [address], [address] 4 20:58:25 Hemoglob in A1c greater than 9% indicati ng poor diabetic control 94291409504 4104 Completed 202309/01/[address], [facility] [address] [place] [address] 4 14:43:16 Problem Notes None recorded. Medical Equipment None Reported. Allergies Allergen ID Allergen Name Allergen Category Reaction Reaction Severity Criticality Documentation Date Start Date Code Code System Note Provider Name and Address Organization Details Recorded Time 26127 lisinopri l medicatio n cough moderate Not available 08/27/20232009 23069 [facility] 4 10:31:16 86347 metoprolo l succinate medicatio n other moderate Not available 08/27/20232018 39722 4 RxNorm No react ion enter ed [facility] 4 10:31:36 66636 codeine medicatio n hives moderate Not available 08/27/20232002 2670 RxNorm [facility] 4 10:31:10 Medications Name Sig Start Date [...] Available prednison e 10 mg tablet Take 3 tabs by mouth x 3 days, 2 tabs x 3 days, 1 tab x3 days, then stop. 2024 active Not Available Not Available Not Avai lable atorvasta tin 20 mg tablet Take 1 tablet by mouth once a day 10/15 completed Not Available Not Available Not Available ipratropi um 0.5 mg-albute rol 3 mg (2.5 mg base)/3 mL nebulizat ion soln INHALE ONE VIAL VIA NEBULIZE R FOUR TIMES A DAY active Not Available Not Available No t Available Effexor XR 75 mg capsule,e xtended [...] Stockings Dx: peripher al edema 11/04 completed [facility] Not Available Not Available Not Available gabapenti n 300 mg tablet 3 cap three times daily 06/16 completed Not Available Not Available Not Available albuterol 2INH four times daily 07/31 completed Not Available Not Available Not Available Nystatin (Topical) cream apply BID 05/28 completed Not Available Not Available Not Available Nebulizer Dx: Asthma J45.40 Smoking Z71.6 2018 active [facility] Not Available Not Available Not Available Humalog [...] Status Current Every Day Smoker SURJIT KITCHEN, NEW ACCOUNTS CLERK null, [place] - [facility]. 11/03/2023 13:42:55 Date Of Most Recent HSA 10/06/2024 [email or web address] Information not available 10/06/2024 Would You Say That, In General, Your Health Is Poor [email or web address] Information not available 10/06/2024 Women Aged 18-50 - Would You Like To Become In The Next Year? (Female Patients Only) No [email or web address] Information not available 10/06/2024 How Often Does Anyone, Including Family, Physically Hurt You? Never [email or web address] Information not available 10/06/2024 How Often Does Anyone, Including Family, Insult Or Talk Down To You? Never [email or web address] Information no t available 10/06/2024 How Often Does Anyone, Including Family, Threaten You With Harm? Never [email or web address] Information not available 10/06/2024 How Often Does Anyone, Including Family, Scream Or Curse At You? Never [email or web address] Information not available 10/06/2024 Within The Past 12 Months, You Worried That Your Food Would Run Out Before You Got Money To Buy More. Sometimes True [email or web address] Information not available 10/06/2024 Within The Past 12 Months, The Food You Bought Just Didn't Last And You Didn't Have Money To Get More. Sometimes True [email or web address] Information not available 10/06/2024 How Hard Is It For You To Pay For The Very Basics Like Food, Housing, Medical Care, And Heating? Would You Say It Is: Very Hard [email or web address] Information not available 10/06/2024 In The Past 12 Months, Has Lack Of Reliable Transportation Kept You From Medical Appointments, Meetings, Work Or From Getting Things Needed For Daily Living? Yes [email or web address] Information not available 10/06/2024 What Is Your Housing Situation Today? I Have Housing. [email or web address] Information not available 10/06/2024 How Often In The Past Year Have You Used Marijuana (including Smoking, Vaping, Dabbing, Or Edibles)? Never [email or web address] Information not available 10/06/2024 How Often In The Past Year Have You Used Prescription Medications That Were Not Prescribed To You? Never [email or web address] Information not available 10/06/2024 How Often In The Past Year Have You Taken Your Own Prescription Medication More Than The Way It Was Prescribed Or For Different Reasons Than Its Intended Purpose? Never [email or web address] Information no t available 10/06/2024 How Often In The Past Year Have You Used Other Drugs (for Example, Heroin, Cocaine, Meth, Salvia, Inhalants)? Never [email or web address] Information not available 10/06/2024 Have You Ever Used IV Drugs? Yes 10 Years Ago [email or web address] Information not available 10/06/2024 What Matters Most To You? Vision, Overall Health [email or web address] Information not available 10/06/2024 During The Past Four Weeks Has Your Physical And Emotional Health Limited Your Social Activities With Family And Friends, Neighbors, Or Groups? Moderately giumejg118 Information not available 10/06/2024 During The Past Four Weeks, Was Someone Available To Help You If You Needed And Wanted Help? (For Example, If You Dellroy Very Nervous, Lonely, Or Blue; Got Sick And Had To Stay In Bed; Needed Someone To Talk To; Needed Help With Daily Chores; Or Needed Help Just Taking Care Of Yourself.) Yes- Quite A Bit [email or web address] Information not available 10/06/2024 During The Past Four Weeks, What Was The Hardest Physical Activity You Could Do For At Least 2 Minutes? Heavy [email or web address] Information not available 10/06/2024 Can You Get To Places Out Of Walking Distance Without Help? (For Example, Can You Travel Alone On Buses Or Taxis, Or Drive Your Own Car?) No [email or web address] Information not available 10/06/2024 Can You Go Shopping For Groceries Or Clothes Without Someone? s Help? No [email or web address] Information not available 10/06/2024 Can You Prepare Your Own Meals? No [email or web address] Information not available 10/06/2024 Can You Do Your Housework Without Help? Yes [email or web address] Information not available 10/06/2024 Because Of Any Health Problems, Do You Need The Help Of Another Person With Your Personal Care Needs Such As Eating, Bathing, Dressing, Or Getting Around The House? Yes [email or web address] Information not available 10/06/2024 Can You Handle Your Own Money Without Help? Yes [email or web address] Information not available 10/06/2024 Are You Having Difficulties Driving Your Car? Not Applicable- I Do Not Use A Car [email or web address] Information not available 10/06/2024 How Often During The Past Four Weeks Have You Been Bothered By Any Of The Following Problems? Falling Or Dizzy When Standing Up? Often [email or web address] Information not available 10/06/2024 Sexual Problems? Never [email or web address] Informat ion not available 10/06/2024 Trouble Eating Well? Never nnjlenf266 Information not available 10/06/2024 Teeth Or Denture Problems? Always nznebwx073 Information not available 10/06/2024 Problems Using The Telephone? Always Can't See Phone [email or web address] Information not available 10/06/2024 Tiredness Or Fatigue? Always [email or web address] Information not available 10/06/2024 Have You Had 2 Or More Falls Or Sustained An Injury With A Fall In The Last Year? Yes [email or web address] Information not available 10/06/2024 Do You Have Difficulty With Walking Or Balance? Yes [email or web address] Information not available 10/06/2024 Do You Currently Use A Hearing Device? No [email or web address] Information not available 10/06/2024 Do You Currently Have Any Trouble With Your Vision? Yes Information no t available 10/06/2024 Do You Exercise For About 20 Minutes Three Or More Days A Week? No- I Usually Do Not Exercise Much [email or web address] Information not available 10/06/2024 Are There Any Safety Concerns In Your Home (see Attached CDC Pamphlet)? Yes Stairs, Cooking [email or web address] Information not available 10/06/2024 How Often Do You Have Trouble Taking Medicines The Way You Have Been Told To Take Them? Sometimes I Take Them As Prescribed [email or web address] Information not available 10/06/2024 How Confident Are You That You Can Control And Manage Most Of Your Health Problems? Somewhat Confident [email or web address] Information not available 10/06/2024 Do You Currently Have Any Difficulty With Your Hearing? No [email or web address] Information not available 10/06/2024 Date Of Most Recent SBINS 10/06/2024 [email or web address] Information not available 10/06/2024 What Was The Date Of Your Most Recent Tobacco Screening? 11/09/2024 [email or web address] Information not available 11/09/2024 What Is Your Current Pack Years? 30ormorepacky ears Information not available 11/03/2023 At What Age Did You Start Smoking Tobacco? 14 Information not available 11/03/2023 How Much Tobacco Do You Smoke? 1 PPW Information not available 11/03/2023 Has Tobacco Cessation Counseling Been Provided? Yes Pt Declines. [email or web address] Information not available 10/06/2024 On What Date Was Tobacco Cessation Counseling Provided? 10/06/2024 Pt Just Not Ready Yet. [email or web address] Information not available 10/06/2024 How Many Years [...] Immunizations Vaccine Type Date Status Note Provider Alexandru Address Organization Details Recorded Time COVID-19, mRNA, LNP-S, PF, anh-sucrose, 30 mcg/0.3 mL 4 completed ARMIDA HIRSCH MA null, [place] - [facility] 09/01/2024 18:38:23 Influenza, split virus, trivalent, PF 4 completed SHARON HENDERSON MD [facility] Shadi Peralta, [place], [address], [place] - [facility] 09/01/2024 16:09:15 Td (adult), 5 Lf tetanus toxoid, preservative free, adsorbed 7 completed Not Available [facility] 08/27/2023 06:21:08 Tdap 7 completed Not Available [facility] 08/27/2023 06:21:08 Novel [id number], all formulations 9 completed Not Available [facility] 08/27/2023 06:21:08 Td(adult) unspecified formulation 1 completed Not Available [facility] 08/27/2023 06:21:08 Influenza, split virus, trivalent, preservative 6 completed Not Available [facility] 08/27/2023 06:21:08 Influenza, split virus, quadrivalent, PF 2 completed Not Available [facility] 08/27/2023 06:21:08 Influenza, split virus, quadrivalent, PF 3 completed Not Available [facility] 08/27/2023 06:21:08 Influenza, split virus, quadrivalent, preservative 8 completed Not Available [facility] 08/27/2023 06:21:09 COVID-19, mRNA, LNP-S, PF, 100 mcg/0.5mL dose or 50 mcg/0.25mL dose 2 completed Not Available [facility] 08/27/2023 06:21:09 COVID-19 vaccine, vector-nr, rS-Ad26, PF, 0.5 mL 1 completed Not Available [facility] 08/27/2023 06:21:09 COVID-19, mRNA, LNP-S, bivalent, PF, 30 mcg/0.3 mL dose 3 completed Not Available [facility] 08/27/2023 06:21:09 pneumococcal polysaccharide PPV23 0 completed Not Available [facility] 08/27/2023 06:21:09 influenza, unspecified formulation 9 completed Not Available [facility] 08/27/2023 06:21:09 influenza, unspecified formulation 8 completed Not Available [facility] 08/27/2023 06:21:09 influenza, unspecified formulation 7 completed Not Available [facility] 08/27/2023 06:21:09 Influenza, split virus, quadrivalent, PF 3 completed Not Available [facility] 10/29/2023 05:31:09 Pneumococcal conjugate PCV20, polysaccharide [id number] conjugate, adjuvant, PF 3 completed Not Available [facility] 10/29/2023 05:31:11 Past Encounters Encounter ID Performer Location Encounter Start Date Encounter Closed Date Diagnosis/Indication Diagnosis SNOMED-CT Code Diagnosis ICD10 Code Diagnosis Note [id number] ROSIBEL SALGADO RN [address] [address] 10/06/2024 12:53:21 10/06/2024 14:03:34 Adult health examination 867424313 Z00.00 Muscle weakness 83072824 M62.81 Decompensa curtis cirrhosis of liver 551564007 K74.60 See above. No evidence of ascites, varices or jaundice. Hyperlipidemia 60892066 E78.5 Chronic hepatitis C 1283 01630 B18.2 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 9970622968 7720292 J44.9 Recommende d switch from Breo to Trelegy for LABA/LAMA coverage as well as ICS. 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 63574610 E11.8 [id number] October [address] [address] 10/19/2024 14:35:21 10/19/2024 17:05:19 Acute exacerbation of chronic obstructive pulmonary disease 856783983 J44.1 Will treat with short course of prednisone , 40 mg/day x 5 days. In-house supply dispensed given her difficulty getting to and obtaining medication s from the pharmacy. 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 I reviewed with her availabili ty of a funds to our office to help with co-pays if needed. Renal fail ure syndrome 19708520 N19 Acute on chronic with no significan t improvemen t in creatinine during hospitaliz ation. Reviewed with [facility] nephrology . Will obtain screening labs [...] lung disease. Decompensa curtis cirrhosis of liver 345163564 K74.60 Will check coag studies, had recent liver function tests, will forward all to nephrology . Chronic hepatitis C 1283 31302 B18.2 High viral load, she was hoping to start treatment but is too ill at this time. Acute randa l insufficiency 315089289 N28.9 Repeat BMP drawn today. Will schedule weekly BMPs through home health to keep close eye on creatinine and GFR. Essential hypertension 98639970 I10 Blood pressure higher since discontinu ation of losartan HCTZ. Will increase amlodipine from 5 to 10 mg/day. 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 21316147 E11.8 A1c was 6.6 during recent hospital stay and blood sugars have been remaining under 200 off all insulin and oral hypoglycem ics recently. Will likely need resumption of some degree of insulin or possibly an oral agent, will monitor. She will continue checking her sugars 2-3 times per day. Tobacco [employer] cessation education 208458513 Z71.6 Unfortunat dimitri she continues to smoke and has been unable to quit. History of opioid abuse 1832881507 89915 F11.11 Stable on methadone but with ongoing cocaine use. Retroperit antonio lymphadenopathy 454258635 R59.0 Reactive etiology favored per radiologis t, no concerning masses or other signs of malignancy on recent noncontras t abdominal pelvis CT. [id number] DOTTIE COFFMAN LPN [address] [address] 10/20/2024 13:00:57 10/20/2024 14:00:30 Cirrhosis of liver 66922642 K74.60 Acute-on-c hronic renal failure 771959011 N17.9 R80.9 [id number] DOTTIE COFFMAN LPN [address] [address] 10/25/2024 13:01:10 10/25/2024 13:17:52 Health Concerns Section Related Observation LastModified by Organization Detai ls LastModified Time None Recorded Concern Status LastModified by Organization Details LastModified Time None Recorded Payers Encounter Date Sequence Insurance Name Policy Number Policy Salmon Covered Member ID Salmon Member ID Guarantor Name 10/25/2024 2 [facility] (MEDICAID) Lea Miramontes [id number] Lea Miramontes 10/25/2024 1 [place] [facility] (MEDICARE) Lea Miramontes [id number] Lea Miramontes OBGyn Episode No OBEpisode recorded.
--- OUTSIDE RECORDS SUMMARY | 2024-11-10 15:28 | XMS_ITS | Data Portability ---
Author Organization [place] - [facility], [facility] Address Sebastián [place] [address] Care Team Providers Care Cassandra Developer Name Role Phone [facility] Ophtha lmologist RACHELL FIORE Home Help Aide [phone] Assessment Encounter Date Assessment Date Assessment LastModified [...] She is under the care of a foreign language stenographer at [facility], Elbert Oliver. - Plan: a. Encourage patient to schedule an appointment for toenail trimming and routine foot care with her foreign language stenographer. COPD and Shortness of Breath - Assessment: Patient experiences increased shortness of breath and currently uses albuterol. She has a refill for Breo and expresses interest in trying Trelegy. - Plan: a. Prescribe Trelegy and send the prescription to [place]'s pharmacy. b. Advise patient to continue using Breo as prescribed. c. Schedule a follow-up in one month to monitor breathing and lung function. Sleep Apnea - Assessment: Patient reports symptoms indicative of sleep apnea, including mouth breathing, gasping for air, and waking abruptly due to breathing difficulties. - Plan: a. Refer patient for a sleep study at [facility] to assess for sleep apnea and [...] a. Provide information on the [facility] [...] devoted to today's encounter, including both the klcp-bz-xzfn time with the patient and/or family/caregiver and hgk-bwmc-uk-face time I personally spent is 40 minutes. [email or web address] Not available 09/01/2024 16:11:48 10/06/2024 10/06/2024 Patient [...] - Plan: a. Order liver ultrasound at [facility]. b. Perform Hepatitis C viral load [...] with a document listing completed preventive services. [email or web address] Not available 10/06/2024 15:38:27 10/19/2024 10/19/2024 The total time devoted to today's encounter, including both the fuwl-kd-wvlu time with the patient and/or family/caregiver and krv-peom-au-face time I personally spent is 120 minutes. [email or web address] Not available 10/19/2024 17:04:21 Plan of Treatment Reminders Order Date Submit Date Provider Last Modified By Organization Details Last Modified Time Details Appointments Follow Up 2024 01:50P M SHARON HENDERSON Not available Not available Not available Follow Up 2024 02:30P M SHARON HENDERSON Not available Not available Not available Lab hemoglobi n A1C, fingersti ck 2023 024 [email or web address] [facility], [address] [facility], [place], [address], 09/02/2024 08:08:00 CMP, serum or plasma 2023 024 [facility] (Registration ), [address] [place] [address] [place], [address], 10/06/2024 23:19:49 CBC w/ auto diff 2023 024 [facility] (Registration ), [address] [place] [address] [place], [address], 10/06/2024 23:05:50 hepatitis C virus RNA, quant, PCR, serum or plasma [address] Laboratory (Registration ), [address] [place] [address] [place], [address], 10/10/2024 09:29:40 lipid panel, serum [address] Laboratory (Registration ), [address] [place] [address] [place], [address], 10/10/2024 09:29:20 venipunct ure [address] Laboratory (Registration ), [address] [place] [address] [place], [address], 10/26/2024 06:45:14 INR, blood [address] Laboratory (Registration ), [address] [place] [address] [place], [address], 11/01/2024 08:13:49 HBsAg (hepatiti s B surface Ag), serum 2024 025 [email or web address] [facility] (Registration ), [address] [place] [address] [place], [address], 10/27/2024 07:09:00 hepatitis B core Ab, total, serum 2024 025 [facility] (Registration ), [address] [place] [address] [place], [address], 10/23/2024 14:29:09 hepatitis A Ab, total, serum 2024 025 [email or web address] [facility] (Registration ), [address] [place] [address] [place], [address], 10/27/2024 07:09:31 partial thrombopl astin time 2024 025 [email or web address] [facility] (Registration ), [address] [place] [address] [place], [address], 11/01/2024 07:26:38 prothromb in time 2024 025 KATHE [facility] (Registration ), [address] [place] [address] [place], [address], 10/25/2024 21:51:20 protein:c reatinine ratio, urine 2024 025 [email or web address] [facility] (Registration ), [address] [place] [address] [place], [address], 10/31/2024 07:57:15 C3 + C4 (compleme nt), serum 2024 025 [email or web address] [facility] (Registration ), [address] [place] [address] [place], [address], 10/27/2024 07:07:57 DEIDRE (antinucl ear antibodie s) screen, serum 2024 025 [email or web address] [facility] (Registration ), [address] [place] [address] [place], [address], 10/27/2024 07:08:30 Referral podiatris t referral - well known to Dr. Valentino , (over)due for nail/foot care adn general f/u. 2023 024 [email or web address] [facility], [address] [place] [address], [place], [address], 10/16/2024 04:49:35 sleep medicine referral - witnessed nocturnal apnea, pt with obesity, COPD, chronic opioid dependenc e; eval for central vs obstructi ve sleep apnea 2023 024 [email or web address] 1 [facility], [address] [facility] [place], [address], 10/05/2024 06:58:37 physical therapist referral - generaliz ed weakness/ deconditi oning related to cirrhosis , diabetic neuropath y and visual impairmen t. would like to work on general strengthe lynnette and balance. [address] [facility], [address] [place] [address], [address], 10/06/2024 15:55:22 nephrolog ist referral - thank you for agreeing to see her soon. labs and renal u/s have been ordered and hope to have results to you soon. new dx stage 5 CKD. 2024 025 [facility] Rachell Fiore MD, [address] [place], [address], 11/10/2024 14:38:54 Procedures None recorded. Surgeries None recorded. Imaging US, liver - known cirrhosis , assess degree of fibrosis for Hep C treatment [email or web address] - Radiology, [address] [place] [address], [address], 10/20/2024 06:58:14 US, kidney - CHELSEA; pt with stage 5 CKD, need to prepare for possible dialysis. cc results to Dr. Foire, [facility] nephrolog y 2024 025 [email or web address] [facility] - Radiology, [address] [place] [address], [address], 11/03/2024 15:52:53 Medication Orders Trelegy Ellipta 200 mcg-62.5 mcg-25 mcg powder for inhalatio n 2023 [email or web address] [facility] [address], [place], [address], 10/06/2024 14:45:17 atorvasta tin 40 mg tablet 2023 [facility] [address], [address], [place], [address], 09/02/2024 08:08:00 escitalop karlo 10 mg tablet 2023 [email or web address] [facility] [address], [address], [place], [address], 10/19/2024 11:43:11 omeprazol e 40 mg capsule,d elayed release 2023 024 [email or web address] [facility] [address], [address], [place], [address], 09/02/2024 08:08:00 amlodipin e 5 mg tablet 2023 024 [email or web address] [facility] [address], [address], [place], [address], 09/02/2024 08:08:00 Diovan HCT 320 mg-25 mg tablet 2023 KATHE [facility] [address], [address], [place], [address], 10/19/2024 11:44:52 amitripty line 25 mg tablet 2023 024 [email or web address] [facility] [address], [address], [place], [address], 09/02/2024 08:08:00 Tresiba FlexTouch U-200 insulin 200 unit/mL (3 mL) subcutane ous pen 2023 024 [employer] [facility] [address], [place], [address], 10/19/2024 11:50:52 metformin ER 500 mg tablet,ex tended release 24 hr 2023 024 [employer] [address], [place], [address], 10/19/2024 11:51:21 Accu-Chek Guide test strips 2023 024 [email or web address] [facility] [address], [address], [place], [address], 09/02/2024 08:08:00 Glucagon (HCl) Emergency Kit 1 mg solution for injection 2023 024 [employer] [address], [place], [address], 10/06/2024 15:38:32 Breo Ellipta 200 mcg-25 mcg/dose powder for inhalatio n 2023 024 [email or web address] [facility] [address], [address], [place], [address], 11/07/2024 12:02:01 Patient TargetsNo targets recorded. Patient Instructions Encounter Date Encounter Id Patient Instructions Last Modified By Organization Details Last Modified Time 09/01/2024 [id number] advised to quit smoking [email or web address] Not available 09/01/2024 16:09:15 Dear Lea, Thank [...] on medications. - Sleep study referral to [facility] for sleep apnea evaluation. - Contact [facility] for toenail trimming appointment. - Stool sample test and mammogram to be scheduled after Wednesday. - Lifestyle Adjustments: - Continue efforts to reduce smoking. - Ensure proper diet and manage meal preparations, possibly with assistance from [employer] Whe[employer]. - Support Services: - Contact [facility] [...] Warm regards, Sharon Henderson MD Family Medicine [email or web address] Not available 09/01/2024 16:11:10 10/06/2024 [id number] Date: WedOct 06 2024 Dear Lea, Thank you for visiting us today. We appreciate your commitment to improving your health and managing your conditions effectively. Here's a summary of our discussion and the next steps for your treatment plan: - Blood Work: Complete tests for liver function, kidney function, cholesterol, and Hep C viral load. 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 - Ultrasound: Schedule an ultrasound of your liver at [facility] to assess the degree of cirrhosis. [...] regards, Dr. Sharon Henderson MD Family Medicine Not available 10/06/2024 15:38:01 Discussed and explained advance directives such as standard forms to the {{patient caregiver pa tient and caregiver}}. Face to face discussion lasted for a duration of ___ minutes. [email or web address] Not available 10/05/2024 17:30:53 10/19/2024 [id number] Dear Lea, Thank you for coming in [...] Best regards, Sharon Henderson MD Family Medicine [email or web address] Not available 10/19/2024 15:22:00 Reason for Referral Sleep Medicine Referral for Sleep apnea witnessed nocturnal apnea, pt with obesity, COPD, chronic opioid dependence; eval for central vs obstructive sleep apnea Referring Physician: Family Darcy Bolivar, Encounter Date: 09/01/2024 Registration Scheduling Specialist Referral for Toen ail thickened well known to Dr. Valentino, (over)due for nail/foot care adn general f/u. Referring Physician: Family Darcy Bolivar, Encounter Date: 09/01/2024 Physical Therapist Referral for Muscle weakness generalized weakness/deconditioning related to cirrhosis, diabetic neuropathy and visual impairment. would like to work on general strengthening and balance. Referring Physician: Family Darcy Bolivar, Encounter Date: 10/06/2024 Home Help Aide Referral for Re nal failure syndrome thank [...] hemoglobin A1C 6.6 % <5.7 Not Available [address], [place], [address], 09/01/2024 15:49:53 10/06/20 24 10/06/2024 COMPL ETE BLOOD COUNT W/DIF F WBC 16.37 10_3/ uL 4.4-10 .8 high Not Available [address] [place], [address] 10/06/2024 23:05:49 10/06/20 24 10/06/2024 COMPL ETE BLOOD COUNT W/DIF F RBC 4.23 10_6/ uL 3.93-5 .22 normal Not Available [address] [place], [address] 10/06/2024 23:05:49 10/06/20 24 10/06/2024 COMPL ETE BLOOD COUNT W/DIF F HGB 11.7 g/dL 11.2-1 5.7 normal Not Available [address] [place], [address] 10/06/2024 23:05:49 10/06/20 24 10/06/2024 COMPL ETE BLOOD COUNT W/DIF F HCT 38.0 % 36.0-4 6.0 normal Not Available [address] [place], [address] 10/06/2024 23:05:49 10/06/20 24 10/06/2024 COMPL ETE BLOOD COUNT W/DIF F MCV 90 fL 80-95 normal Not Available [employer] [facility] [address] [place], [address] 10/06/2024 23:05:49 10/06/20 24 10/06/2024 COMPL ETE BLOOD COUNT W/DIF F MCH 27.7 pg 27.0-3 3.0 normal Not Available [address] [place], [address] 10/06/2024 23:05:49 10/06/20 24 10/06/2024 COMPL ETE BLOOD COUNT W/DIF F MCHC 30.8 % 32.0-3 6.0 low Not Available [address] [place], [address] 10/06/2024 23:05:49 10/06/20 24 10/06/2024 COMPL ETE BLOOD COUNT W/DIF F RDW 14.1 % 11.7-1 4.6 normal Not Available [address] [place], [address] 10/06/2024 23:05:49 10/06/20 24 10/06/2024 COMPL ETE BLOOD COUNT W/DIF F platelet count 522 10_3/ uL 130-40 0 high Not Available [address] [place], [address] 10/06/2024 23:05:49 10/06/20 24 10/06/2024 COMPL ETE BLOOD COUNT W/DIF F MPV 10.0 fL 8.0-11 .0 normal Not Available [address] [place], [address] 10/06/2024 23:05:49 10/06/20 24 10/06/2024 COMPL ETE BLOOD COUNT W/DIF F neutrophils % 60.7 % Not Available [address] [place], [address] 10/06/2024 23:05:49 10/06/20 24 10/06/2024 COMPL ETE BLOOD COUNT W/DIF F lymphocytes % 30.1 % Not Available [address] [place], [address] 10/06/2024 23:05:49 10/06/20 24 10/06/2024 COMPL ETE BLOOD COUNT W/DIF F monocytes % 5.2 % Not Available [address] [place], [address] 10/06/2024 23:05:49 10/06/20 24 10/06/2024 COMPL ETE BLOOD COUNT W/DIF F eosinophils % 2.7 % Not Available [address] [place], [address] 10/06/2024 23:05:49 10/06/20 24 10/06/2024 COMPL ETE BLOOD COUNT W/DIF F basophils % 0.7 % Not Available [address] [place], [address] 10/06/2024 23:05:49 10/06/20 24 10/06/2024 COMPL ETE BLOOD COUNT W/DIF F immature grans % 0.6 % Not Available [address] [place], [address] 10/06/2024 23:05:49 10/06/20 24 10/06/2024 COMPL ETE BLOOD COUNT W/DIF F nucleated RBC 0.0 % 0.0-0. 3 normal Not Available [address] [place], [address] 10/06/2024 23:05:49 10/06/20 24 10/06/2024 COMPL ETE BLOOD COUNT W/DIF F absolute neutrophil count 9.94 10_3/ uL 1.2-6. 7 high Not Available [address] [place], [address] 10/06/2024 23:05:49 10/06/20 24 10/06/2024 COMPL ETE BLOOD COUNT W/DIF F absolute lymphocyte count 4.93 10_3/ uL 1.2-3. 4 high Not Available [address] [place], [address] 10/06/2024 23:05:49 10/06/20 24 10/06/2024 COMPL ETE BLOOD COUNT W/DIF F absolute monocyte count 0.85 10_3/ uL 0.1-0. 8 high Not Available [address] [place], [address] 10/06/2024 23:05:49 10/06/20 24 10/06/2024 COMPL ETE BLOOD COUNT W/DIF F absolute eosinophil count 0.44 10_3/ uL 0.0-0. 7 normal Not Available [address] [place], [address] 10/06/2024 23:05:49 10/06/20 24 10/06/2024 COMPL ETE BLOOD COUNT W/DIF F absolute basophil count 0.11 10_3/ uL 0.0-0. 2 normal Not Available [address] [place], [address] 10/06/2024 23:05:49 10/06/20 24 10/06/[address] METAB OLIC PANEL calcium 8.7 mg/dL 8.5-10 .1 normal Not Available [address] [place], [address] 10/06/2024 23:19:49 10/06/20 24 10/06/[address] METAB OLIC PANEL glucose 175 mg/dL 74-106 high Not Available [employer] [address] [place], [address] 10/06/2024 23:19:49 10/06/20 24 10/06/[address] METAB OLIC PANEL BUN 69 mg/dL 7-18 high Not Available [address] [place], [address] 10/06/2024 23:19:49 10/06/20 24 10/06/[address] METAB OLIC PANEL creatinine 6.2 mg/dL 0.55-1 .02 panic high Criti ting value repor curtis to and readb ack from SHARON Schaefer MD AT [facility] at 2309 10/06 by JAYMIE WHITE Not Available [address] [place], [address] 10/06/2024 23:19:49 10/06/20 24 10/06/2024 COMPR EHENS [...] young er-ag ed adult s. Not Available [address] [place], [address] 10/06/2024 23:19:49 10/06/20 24 10/06/[address] METAB OLIC PANEL total protein 8.1 g/dL 6.4-8. 2 normal Not Available [address] [place], [address] 10/06/2024 23:19:49 10/06/20 24 10/06/[address] METAB OLIC PANEL albumin 2.8 g/dL 3.4-5. 0 low Not Available [address] [place], [address] 10/06/2024 23:19:49 10/06/20 24 10/06/[address] METAB OLIC PANEL bilirubin, total 0.19 mg/dL 0.2-1. 0 low Not Available [address] [place], [address] 10/06/2024 23:19:49 10/06/20 24 10/06/[address] METAB OLIC PANEL alk phos 165 U/L 46-116 high Not Available [address] [place], [address] 10/06/2024 23:19:49 10/06/20 24 10/06/[address] METAB OLIC PANEL sodium 141 mmol/ L 136-14 5 normal Not Available [address] [place], [address] 10/06/2024 23:19:49 10/06/20 24 10/06/[address] METAB OLIC PANEL potassium 4.5 mmol/ L 3.5-5. 1 normal Not Available [address] [place], [address] 10/06/2024 23:19:49 10/06/20 24 10/06/[address] METAB OLIC PANEL chloride 106 mmol/ L 98-107 normal Not Available [address] [place], [address] 10/06/2024 23:19:49 10/06/20 24 10/06/[address] METAB OLIC PANEL CO2 23.7 mmol/ L 21.0-3 2.0 normal Not Available [address] [place], [address] 10/06/2024 23:19:49 10/06/20 24 10/06/[address] METAB OLIC PANEL anion gap 11.3 mmol/ L 3-11 high Not Available [address] [place], [address] 10/06/2024 23:19:49 10/06/20 24 10/06/[address] METAB OLIC PANEL AST 17 U/L 15-37 normal Not Available [employer] [facility] [address] [place], [address] 10/06/2024 23:19:49 10/06/20 24 10/06/[address] METAB OLIC PANEL ALT 14 U/L 14-59 normal Not Available [employer] [facility] [address] [place], [address] 10/06/2024 23:19:49 10/06/20 24 10/06/2024 LIPID 2 cholesterol 144 mg/dL <[address] [facility] [facility] [address] [place], [address] 10/06/2024 23:19:50 10/06/20 24 10/06/2024 LIPID 2 triglyceride 145 mg/dL <150 Not Available [address], [address] 10/06/2024 23:19:50 10/06/20 24 10/06/2024 LIPID 2 HDL cholesterol 48 mg/dL 40-60 Not Available [facility] [address] [place], [address] 10/06/2024 23:19:50 10/06/20 24 10/06/2024 LIPID 2 [...] 18 years or older . Not Available [address] [place], [address] 10/06/2024 23:19:50 10/06/20 24 10/09/2024 HCV RNA DETEC TION QUANT ITATI VE HCV RNA qualitative Detect ed undete cted abnormal Not Available [address] [place], [address] 10/09/2024 12:33:52 10/06/20 24 10/09/2024 HCV RNA DETEC TION QUANT ITATI VE HCV RNA detection quantitative [id number] 0 IU/mL undete cted abnormal The quant ifica tion range of this assay is 15 IU/mL to 100,0 00,00 0 IU/mL . Testi ng was perfo rmed using the Jaron HCV test ([employer] with the [employer]. Test perfo rmed or refer red by [facility] [address] [place] [address] Not Available [address] [place], [address] 10/09/2024 12:33:52 10/07/20 24 10/07/2024 NOVA GLUCO SE FINGE R HEEL CAPIL LEON glucose cap 148 mg/dL 70 - 116 high Not Available [facility] (Lab) [address] [place], [address], 10/07/2024 20:01:20 10/07/20 24 10/07/2024 NOVA GLUCO SE FINGE R HEEL CAPIL LEON glucose cap 181 mg/dL 70 - 116 high Not Available [facility] (Lab) [address] [place], [address], 10/07/2024 17:16:15 10/07/20 24 10/07/2024 LACTI C ACID lactic acid 2.6 mmol/ L 0.7 - 2.1 high Not Available [facility] (Lab) [address] [place] [address], [address], 10/07/2024 15:09:08 10/07/20 24 10/08/2024 CULT URINE CULTU RE* cult urine culture* URINE CULTU RE Not Available [facility] (Lab) [address] [place] [address], [address], 10/08/2024 12:36:59 10/07/20 24 10/08/2024 CULT URINE CULTU RE* collection mode: CLEAN CATCH Micro biolo gy Speci men Sourc e Urine Colle ction Date 10/07 Speci men Note: URINE Colle ction Time 13:41 [place]. [place]: [id number] Recei pt Date 10/07 ----- ----- ----- ----- ----- ----- ----- ----- ----- ----- ----- ----- ----- ----- ----- ----- Organ ism # 1: Mixed Gram Posit court and Gram Negat court Growt h (mix) CC= >100, 000 CFU/m L 10/08.1 236.T S . 12/22 /24.1 236.T S .COMP LETE Not Available [facility] (Lab) [address] [place] [address], [address], 10/08/2024 12:36:59 10/07/20 24 10/07/2024 CPK SERUM TOTAL * CPK 60 U/L 30 - 135 Not Available [facility] (Lab) [address] [place] [address], [address], 10/07/2024 14:45:10 10/07/20 24 10/07/2024 CPK SERUM TOTAL * specimen seq. ADM. Not Available [facility] (Lab) [address] [place] [address], [address], 10/07/2024 14:45:10 10/07/20 24 10/07/2024 MAGNE SIUM SERUM * magnesium 1.2 mg/dL 1.6 - 2.3 low Not Available [facility] (Lab) [address] [place] [address], [address], 10/07/2024 14:45:08 10/07/20 24 10/07/[address] PROTE IN HIGH SENSI TIVIT Y* CRP-high sens. 15.91 mg/L 0.00 - 3.00 high Less Risk: <1.0 mg/L [place] ge Risk: 1.0-3 .0 mg/L High Risk: >3.0 mg/L Indet ermin ate: >10.0 mg/L Not Available [facility] (Lab) [address] [place] [address], [address], 10/07/2024 14:45:07 10/07/20 24 10/07/[address] METAB OLIC PANEL (CMP) glucose 189 mg/dL 70 - 116 high Not Available [facility] (Lab) [address] [place] [address], [address], 10/07/2024 14:45:05 10/07/20 24 10/07/[address] METAB OLIC PANEL (CMP) BUN 64 mg/dL 7 - 17 high Not Available [facility] (Lab) [address] [place], [address], 10/07/2024 14:45:05 10/07/20 24 10/07/[address] METAB OLIC PANEL (CMP) creatinine 6.40 mg/dL 0.52 - 1.04 high Not Available [facility] (Lab) [address] [place], [address], 10/07/2024 14:45:05 10/07/20 24 10/07/[address] METAB OLIC PANEL (CMP) sodium serum 141 mmol/ L 136 - 145 Not Available [facility] (Lab) [address] [place] [address], [address], 10/07/2024 14:45:05 10/07/20 24 10/07/[address] METAB OLIC PANEL (CMP) potassium serum 4.3 mmol/ L 3.4 - 5.2 Not Available [facility] (Lab) [address] [place] [address], [address], 10/07/2024 14:45:05 10/07/20 24 10/07/[address] METAB OLIC PANEL (CMP) chloride serum 107 mmol/ L 98 - 107 Not Available [facility] (Lab) [address] [place] [address], [address], 10/07/2024 14:45:05 10/07/20 24 10/07/[address] METAB OLIC PANEL (CMP) carbon dioxide (co2) 22 mmol/ L 22 - 30 Not Available [facility] (Lab) [address] [place] [address], [address], 10/07/2024 14:45:05 10/07/20 24 10/07/[address] METAB OLIC PANEL (CMP) anion gap 12.2 mmol/ L Not Available [facility] (Lab) [address] [place] [address], [address], 10/07/2024 14:45:05 10/07/20 24 10/07/[address] METAB OLIC PANEL (CMP) calcium serum 8.5 mg/dL 8.4 - 10.2 Not Available [facility] (Lab) [address] [place] [address], [address], 10/07/2024 14:45:05 10/07/20 24 10/07/[address] METAB OLIC PANEL (CMP) bilirubin total 0.2 mg/dL 0.2 - 1.3 Not Available [facility] (Lab) [address] [place] [address], [address], 10/07/2024 14:45:05 10/07/20 24 10/07/[address] METAB OLIC PANEL (CMP) alk. phos. 133 U/L 38 - 126 high Not Available [facility] (Lab) [address] [place], [address], 10/07/2024 14:45:05 10/07/20 24 10/07/[address] METAB OLIC PANEL (CMP) SGOT (AST) 31 U/L 14 - 36 Not Available [facility] (Lab) [address] [place] [address], [address], 10/07/2024 14:45:05 10/07/20 24 10/07/[address] METAB OLIC PANEL (CMP) SGPT (ALT) 20 U/L 4 - 35 Not Available [facility] (Lab) [address] [place] [address], 97176, 10/07/2024 14:45:05 10/07/20 24 10/07/[address] METAB OLIC PANEL (CMP) total protein 8.1 gm/dL 6.0 - 8.0 high Not Available [facility] (Lab) [address] [place] [address], 70958, 10/07/2024 14:45:05 10/07/20 24 10/07/[address] METAB OLIC PANEL (CMP) albumin 3.9 gm/dL 3.4 - 5.0 Not Available [facility] (Lab) [address] [place], [address], 10/07/2024 14:45:05 10/07/20 24 10/07/[address] METAB OLIC PANEL (CMP) age 49 years Not Available [facility] (Lab) [address] [place] [address], 01251, 10/07/2024 14:45:05 10/07/20 24 10/07/[address] METAB OLIC PANEL (CMP) eGFR (non-afr.narayan r.) 7 mL/mi n Not Available [facility] (Lab) [address] [place] [address], 39131, 10/07/2024 14:45:05 10/07/20 24 10/07/2024 COMPR EHENS [...] than 18 years of age. Not Available [facility] (Lab) [address] [place] [address], 34535, 10/07/2024 14:45:05 10/07/20 24 10/07/2024 SED RATE* sed. rate 79 mm/HR 0 - 20 high Not Available [facility] (Lab) [address] [place] [address], 10[address], 10/07/2024 14:43:05 10/07/20 24 10/07/2024 DRUG SCN 13 PANEL (MEDT OX)* drug scn 13 panel (medtox)* URINE DRUG SCREE N (13 DRUGS ) Not Available [facility] (Lab) [address] [place] [address], 88518, 10/07/2024 14:36:04 10/07/20 24 10/07/2024 DRUG SCN 13 PANEL (MEDT OX)* cannabinoids NEGATI VE cutoff = 50 NG/mL Not Available [facility] (Lab) [address] [place] [address], 31376, 10/07/2024 14:36:04 10/07/20 24 10/07/2024 DRUG SCN 13 PANEL (MEDT OX)* phencyclidin e NEGATI VE cutoff = 25 NG/mL Not Available [facility] (Lab) [address] [place] [address], 44062, 10/07/2024 14:36:04 10/07/20 24 10/07/2024 DRUG SCN 13 PANEL (MEDT OX)* cocaine POSITI VE cutoff = 150 NG/mL abnormal Not Available [facility] (Lab) [address] [place] [address], 52817, 10/07/2024 14:36:04 10/07/20 24 10/07/2024 DRUG SCN 13 PANEL (MEDT OX)* methamphetam adenike NEGATI VE cutoff = 500 NG/mL Not Available [facility] (Lab) [address] [place] [address], 45585, 10/07/2024 14:36:04 10/07/20 24 10/07/2024 DRUG SCN 13 PANEL (MEDT OX)* opiates NEGATI VE cutoff = 100 NG/mL Not Available [facility] (Lab) [address] [place] [address], 82616, 10/07/2024 14:36:04 10/07/20 24 10/07/2024 DRUG SCN 13 PANEL (MEDT OX)* amphetamines NEGATI VE cutoff = 500 NG/mL Not Available [facility] (Lab) [address] [place], [address], 10/07/2024 14:36:04 10/07/20 24 10/07/2024 DRUG SCN 13 PANEL (MEDT OX)* benzodiazepi olivia NEGATI VE cutoff = 150 NG/mL Not Available [facility] (Lab) [address] [place] [address], 25584, 10/07/2024 14:36:04 10/07/20 24 10/07/2024 DRUG SCN 13 PANEL (MEDT OX)* tricyclic antidep POSITI VE cutoff = 300 NG/mL abnormal Not Available [facility] (Lab) [address] [place] [address], 89187, 10/07/2024 14:36:04 10/07/20 24 10/07/2024 DRUG SCN 13 PANEL (MEDT OX)* methadone POSITI VE cutoff = 200 NG/mL abnormal Not Available [facility] (Lab) [address] [place] [address], 63177, 10/07/2024 14:36:04 10/07/20 24 10/07/2024 DRUG SCN 13 PANEL (MEDT OX)* barbiturates NEGATI VE cutoff = 200 NG/mL Not Available [facility] (Lab) [address] [place] [address], 99085, 10/07/2024 14:36:04 10/07/20 24 10/07/2024 DRUG SCN 13 PANEL (MEDT OX)* oxycodone NEGATI VE cutoff = 100 NG/mL Not Available [facility] (Lab) [address] [place] [address], 41414, 10/07/2024 14:36:04 10/07/20 24 10/07/2024 DRUG SCN [...] BUPRE NORPH INE 10 ng/mL Not Available [facility] (Lab) [address] [place] [address], 32652, 10/07/2024 14:36:04 10/07/20 24 10/07/2024 CBC W/ DIFFE RENTI AL* WBC 15.85 TH/cm m 5.00 - 10.00 high Not Available [facility] (Lab) [address] [place] [address], 77315, 10/07/2024 14:33:06 10/07/20 24 10/07/2024 CBC W/ DIFFE RENTI AL* neut % 69.8 % 40.0 - 80.0 Not Available [facility] (Lab) [address] [place] [address], 14052, 10/07/2024 14:33:06 10/07/20 24 10/07/2024 CBC W/ DIFFE RENTI AL* lymph % 22.3 % 10.0 - 50.0 Not Available [facility] (Lab) [address] [place] [address], 08809, 10/07/2024 14:33:06 10/07/20 24 10/07/2024 CBC W/ DIFFE RENTI AL* mono % 5.2 % 2.0 - 12.0 Not Available [facility] (Lab) [address] [place] [address], 02455, 10/07/2024 14:33:06 10/07/20 24 10/07/2024 CBC W/ DIFFE RENTI AL* eos % 1.6 % 0.0 - 8.0 Not Available [facility] (Lab) [address] [place] [address], 49176, 10/07/2024 14:33:06 10/07/20 24 10/07/2024 CBC W/ DIFFE RENTI AL* baso % 0.5 % 0.0 - 3.0 Not Available [facility] (Lab) [address] [place] [address], 40658, 10/07/2024 14:33:06 10/07/20 24 10/07/2024 CBC W/ DIFFE RENTI AL* Ig % 0.6 % 0.0 - 1.1 Not Available [facility] (Lab) [address] [place] [address], 39574, 10/07/2024 14:33:06 10/07/20 24 10/07/2024 CBC W/ DIFFE RENTI AL* NRBC % 0.0 % 0.0 - 0.0 Not Available [facility] (Lab) [address] [place] [address], 30501, 10/07/2024 14:33:06 10/07/20 24 10/07/2024 CBC W/ DIFFE RENTI AL* neut abs count 11.1 TH/cm m 1.6 - 8.4 high Not Available [facility] (Lab) [address] [place] [address], 49315, 10/07/2024 14:33:06 10/07/20 24 10/07/2024 CBC W/ DIFFE RENTI AL* lymph abs count 3.5 TH/cm m 1.5 - 4.0 Not Available [facility] (Lab) [address] [place] [address], 69469, 10/07/2024 14:33:06 10/07/20 24 10/07/2024 CBC W/ DIFFE RENTI AL* mono abs count 0.8 TH/cm m 0.2 - 1.0 Not Available [facility] (Lab) [address] [place] [address], 83044, 10/07/2024 14:33:06 10/07/20 24 10/07/2024 CBC W/ DIFFE RENTI AL* eos abs count 0.3 TH/cm m 0.0 - 0.5 Not Available [facility] (Lab) [address] [place], [address], 10/07/2024 14:33:06 10/07/20 24 10/07/2024 CBC W/ DIFFE RENTI AL* baso abs count 0.1 TH/cm m 0.0 - 0.2 Not Available [facility] (Lab) [address] [place] [address], 82382, 10/07/2024 14:33:06 10/07/20 24 10/07/2024 CBC W/ DIFFE RENTI AL* Ig abs count 0.1 TH/cm m 0.0 - 0.1 Not Available [facility] (Lab) [address] [place] [address], 35439, 10/07/2024 14:33:06 10/07/20 24 10/07/2024 CBC W/ DIFFE RENTI AL* NRBC abs count 0.0 mil/c mm 0.0 - 0.0 Not Available [facility] (Lab) [address] [place] [address], 03176, 10/07/2024 14:33:06 10/07/20 24 10/07/2024 CBC W/ DIFFE RENTI AL* RBC 4.00 mil/c mm 3.90 - 5.40 Not Available [facility] (Lab) [address] [place] [address], 58192, 10/07/2024 14:33:06 10/07/20 24 10/07/2024 CBC W/ DIFFE RENTI AL* hemoglobin 10.9 gm/dL 12.0 - 16.0 low Not Available [facility] (Lab) [address] [place] [address], 12727, 10/07/2024 14:33:06 10/07/20 24 10/07/2024 CBC W/ DIFFE RENTI AL* hematocrit 35 % 37 - 47 low Not Available [facility] (Lab) [address] [place] [address], 40733, 10/07/2024 14:33:06 10/07/20 24 10/07/2024 CBC W/ DIFFE RENTI AL* MCV 87 fL 82 - 92 Not Available [facility] (Lab) [address] [place] [address], 63711, 10/07/2024 14:33:06 10/07/20 24 10/07/2024 CBC W/ DIFFE RENTI AL* MCH 27.3 pg 27.0 - 31.0 Not Available [facility] (Lab) [address] [place] [address], 13882, 10/07/2024 14:33:06 10/07/20 24 10/07/2024 CBC W/ DIFFE RENTI AL* MCHC 31.3 % 32.0 - 36.0 low Not Available [facility] (Lab) [address] [place] [address], 05273, 10/07/2024 14:33:06 10/07/20 24 10/07/2024 CBC W/ DIFFE RENTI AL* RDW-SD 45.4 fL 39.0 - 49.0 Not Available [facility] (Lab) [address] [place] [address], 24947, 10/07/2024 14:33:06 10/07/20 24 10/07/2024 CBC W/ DIFFE RENTI AL* platelet count 481 TH/cm m 150 - 450 high Not Available [facility] (Lab) [address] [place] [address], 30604, 10/07/2024 14:33:06 10/07/20 24 10/07/2024 URINA LYSIS WITH MICRO SCOPI C* collection mode: CLEAN CATCH Not Available [facility] (Lab) [address] [place], [address], 10/07/2024 14:33:03 10/07/20 24 10/07/2024 URINA LYSIS WITH MICRO SCOPI C* color YELLOW yellow Not Available [facility] (Lab) [address] [place] [address], 54610, 10/07/2024 14:33:03 10/07/20 24 10/07/2024 URINA LYSIS WITH MICRO SCOPI C* appearance HAZY clear Not Available [facility] (Lab) [address] [place] [address], 19523, 10/07/2024 14:33:03 10/07/20 24 10/07/2024 URINA LYSIS WITH MICRO SCOPI C* glucose urine 250 negati ve mg/dL abnormal Not Available [facility] (Lab) [address] [place] [address], 68184, 10/07/2024 14:33:03 10/07/20 24 10/07/2024 URINA LYSIS WITH MICRO SCOPI C* bilirubin NEGATI VE negati ve Not Available [facility] (Lab) [address] [place] [address], 75432, 10/07/2024 14:33:03 10/07/20 24 10/07/2024 URINA LYSIS WITH MICRO SCOPI C* ketones NEGATI VE negati ve mg/dL Not Available [facility] (Lab) [address] [place] [address], 41942, 10/07/2024 14:33:03 10/07/20 24 10/07/2024 URINA LYSIS WITH MICRO SCOPI C* spec gravity 1.020 1.003 - 1.030 Not Available [facility] (Lab) [address] [place] [address], 87386, 10/07/2024 14:33:03 10/07/20 24 10/07/2024 URINA LYSIS WITH MICRO SCOPI C* pH urine 6.0 5.0 - 7.0 Not Available [facility] (Lab) [address] [place], [address], 10/07/2024 14:33:03 10/07/20 24 10/07/2024 URINA LYSIS WITH MICRO SCOPI C* protein >=300 negati ve mg/dL abnormal Not Available [facility] (Lab) [address] [place], [address], 10/07/2024 14:33:03 10/07/20 24 10/07/2024 URINA LYSIS WITH MICRO SCOPI C* urobilinogen 0.2 <or= 1 eu/dL Not Available [facility] (Lab) [address] [place], [address], 10/07/2024 14:33:03 10/07/20 24 10/07/2024 URINA LYSIS WITH MICRO SCOPI C* nitrite POSITI VE negati ve abnormal Not Available [facility] (Lab) [address] [place], [address], 10/07/2024 14:33:03 10/07/20 24 10/07/2024 URINA LYSIS WITH MICRO SCOPI C* blood MODERA TE negati ve abnormal Not Available [facility] (Lab) [address] [place] [address], 11125, 10/07/2024 14:33:03 10/07/20 24 10/07/2024 URINA LYSIS WITH MICRO SCOPI C* leukocytes TRACE negati ve abnormal Not Available [facility] (Lab) [address] [place] [address], 82989, 10/07/2024 14:33:03 10/07/20 24 10/07/2024 URINA LYSIS WITH MICRO SCOPI C* WBCs 25-100 0-5 / hpf Not Available [facility] (Lab) [address] [place] [address], 06843, 10/07/2024 14:33:03 10/07/20 24 10/07/2024 URINA LYSIS WITH MICRO SCOPI C* RBCs 10-25 0-5 / hpf Not Available [facility] (Lab) [address] [place] [address], 52693, 10/07/2024 14:33:03 10/07/20 24 10/07/2024 URINA LYSIS WITH MICRO SCOPI C* epith cells 0-5 0-5 / hpf Not Available [facility] (Lab) [address] [place] [address], 89568, 10/07/2024 14:33:03 10/07/20 24 10/07/2024 URINA LYSIS WITH MICRO SCOPI C* cell types squamo us Not Available [facility] (Lab) [address] [place] [address], 58669, 10/07/2024 14:33:03 10/07/20 24 10/07/2024 URINA LYSIS WITH MICRO SCOPI C* crystals none none Not Available [facility] (Lab) [address] [place] [address], 07917, 10/07/2024 14:33:03 10/07/20 24 10/07/2024 URINA LYSIS WITH MICRO SCOPI C* bacteria large none Not Available [facility] (Lab) [address] [place] [address], 67638, 10/07/2024 14:33:03 10/07/20 24 10/07/2024 URINA LYSIS WITH MICRO SCOPI C* mucus none none Not Available [facility] (Lab) [address] [place] [address], 60050, 10/07/2024 14:33:03 10/07/20 24 10/07/2024 URINA LYSIS WITH MICRO SCOPI C* casts 0-5 none /lpf Not Available [facility] (Lab) [address] [place] [address], 00608, 10/07/2024 14:33:03 10/07/20 24 10/07/2024 URINA LYSIS WITH MICRO SCOPI C* cast types hyal+g ran Not Available [facility] (Lab) [address] [place] [address], 23878, 10/07/2024 14:33:03 10/07/20 24 10/07/2024 URINA LYSIS WITH MICRO SCOPI C* other WBC CLUMPS , URINE UNSPUN DUE TO VOLUME Not Available [facility] (Lab) [address] [place] [address], 02751, 10/07/2024 14:33:03 10/08/20 24 10/08/2024 NOVA GLUCO SE FINGE R HEEL CAPIL LEON glucose cap 118 mg/dL 70 - 116 high Not Available [facility] (Lab) [address] [place] [address], 07830, 10/08/2024 20:39:13 10/08/20 24 10/08/2024 NOVA GLUCO SE FINGE R HEEL CAPIL LEON glucose cap 69 mg/dL 70 - 116 low Not Available [facility] (Lab) [address] [place] [address], 86120, 10/08/2024 17:57:08 10/08/20 24 10/08/2024 NOVA GLUCO SE FINGE R HEEL CAPIL LEON glucose cap 60 mg/dL 70 - 116 low Not Available [facility] (Lab) [address] [place] [address], 00725, 10/08/2024 17:09:05 10/08/20 24 10/08/2024 NOVA GLUCO SE FINGE R HEEL CAPIL LEON glucose cap 116 mg/dL 70 - 116 Not Available [facility] (Lab) [address] [place] [address], 94009, 10/08/2024 12:27:58 10/08/20 24 10/08/2024 NOVA GLUCO SE FINGE R HEEL CAPIL LEON glucose cap 77 mg/dL 70 - 116 Not Available [facility] (Lab) [address] [place], [address], 10/08/2024 08:23:54 10/08/20 24 10/08/2024 MAGNE SIUM SERUM * magnesium 1.6 mg/dL 1.6 - 2.3 Not Available [facility] (Lab) [address] [place] [address], 77527, 10/08/2024 07:58:52 10/08/20 24 10/08/2024 BASIC METAB OLIC PANEL (BMP) glucose 72 mg/dL 70 - 116 Not Available [facility] (Lab) [address] [place] [address], 67428, 10/08/2024 07:58:50 10/08/20 24 10/08/2024 BASIC METAB OLIC PANEL (BMP) BUN 64 mg/dL 7 - 17 high Not Available [facility] (Lab) [address] [place] [address], 81877, 10/08/2024 07:58:50 10/08/20 24 10/08/2024 BASIC METAB OLIC PANEL (BMP) creatinine 5.91 mg/dL 0.52 - 1.04 high Not Available [facility] (Lab) [address] [place] [address], 82355, 10/08/2024 07:58:50 10/08/20 24 10/08/2024 BASIC METAB OLIC PANEL (BMP) sodium serum 144 mmol/ L 136 - 145 Not Available [facility] (Lab) [address] [place] [address], 71583, 10/08/2024 07:58:50 10/08/20 24 10/08/2024 BASIC METAB OLIC PANEL (BMP) potassium serum 4.2 mmol/ L 3.4 - 5.2 Not Available [facility] (Lab) [address] [place] [address], 14062, 10/08/2024 07:58:50 10/08/20 24 10/08/2024 BASIC METAB OLIC PANEL (BMP) chloride serum 112 mmol/ L 98 - 107 high Not Available [facility] (Lab) [address] [place] [address], 97374, 10/08/2024 07:58:50 10/08/20 24 10/08/2024 BASIC METAB OLIC PANEL (BMP) carbon dioxide (co2) 22 mmol/ L 22 - 30 Not Available [facility] (Lab) [address] [place] [address], 10238, 10/08/2024 07:58:50 10/08/20 24 10/08/2024 BASIC METAB OLIC PANEL (BMP) anion gap 9.5 mmol/ L Not Available [facility] (Lab) [address] [place] [address], 18002, 10/08/2024 07:58:50 10/08/20 24 10/08/2024 BASIC METAB OLIC PANEL (BMP) calcium serum 8.4 mg/dL 8.4 - 10.2 Not Available [facility] (Lab) [address] [place] [address], 46373, 10/08/2024 07:58:50 10/08/20 24 10/08/2024 BASIC METAB OLIC PANEL (BMP) age 49 years Not Available [facility] (Lab) [address] [place] [address], 44616, 10/08/2024 07:58:50 10/08/20 24 10/08/2024 BASIC METAB OLIC PANEL (BMP) eGFR (non-afr.narayan r.) 8 mL/mi n Not Available [facility] (Lab) [address] [place] [address], 29466, 10/08/2024 07:58:50 10/08/20 24 10/08/2024 BASIC METAB [...] than 18 years of age. Not Available [facility] (Lab) [address] [place] [address], 21467, 10/08/2024 07:58:50 10/08/20 24 10/08/2024 CBC W/ DIFFE RENTI AL* WBC 14.98 TH/cm m 5.00 - 10.00 high Not Available [facility] (Lab) [address] [place] [address], 18547, 10/08/2024 07:31:47 10/08/20 24 10/08/2024 CBC W/ DIFFE RENTI AL* neut % 61.9 % 40.0 - 80.0 Not Available [facility] (Lab) [address] [place] [address], 32214, 10/08/2024 07:31:47 10/08/20 24 10/08/2024 CBC W/ DIFFE RENTI AL* lymph % 27.8 % 10.0 - 50.0 Not Available [facility] (Lab) [address] [place] [address], 05356, 10/08/2024 07:31:47 10/08/20 24 10/08/2024 CBC W/ DIFFE RENTI AL* mono % 6.5 % 2.0 - 12.0 Not Available [facility] (Lab) [address] [place] [address], 73538, 10/08/2024 07:31:47 10/08/20 24 10/08/2024 CBC W/ DIFFE RENTI AL* eos % 2.8 % 0.0 - 8.0 Not Available [facility] (Lab) [address] [place] [address], 47109, 10/08/2024 07:31:47 10/08/20 24 10/08/2024 CBC W/ DIFFE RENTI AL* baso % 0.6 % 0.0 - 3.0 Not Available [facility] (Lab) [address] [place] [address], 97226, 10/08/2024 07:31:47 10/08/20 24 10/08/2024 CBC W/ DIFFE RENTI AL* Ig % 0.4 % 0.0 - 1.1 Not Available [facility] (Lab) [address] [place] [address], 21653, 10/08/2024 07:31:47 10/08/20 24 10/08/2024 CBC W/ DIFFE RENTI AL* NRBC % 0.0 % 0.0 - 0.0 Not Available [facility] (Lab) [address] [place] [address], 28914, 10/08/2024 07:31:47 10/08/20 24 10/08/2024 CBC W/ DIFFE RENTI AL* neut abs count 9.3 TH/cm m 1.6 - 8.4 high Not Available [facility] (Lab) [address] [place] [address], 16385, 10/08/2024 07:31:47 10/08/20 24 10/08/2024 CBC W/ DIFFE RENTI AL* lymph abs count 4.2 TH/cm m 1.5 - 4.0 high Not Available [facility] (Lab) [address] [place] [address], 61925, 10/08/2024 07:31:47 10/08/20 24 10/08/2024 CBC W/ DIFFE RENTI AL* mono abs count 1.0 TH/cm m 0.2 - 1.0 Not Available [facility] (Lab) [address] [place] [address], 64980, 10/08/2024 07:31:47 10/08/20 24 10/08/2024 CBC W/ DIFFE RENTI AL* eos abs count 0.4 TH/cm m 0.0 - 0.5 Not Available [facility] (Lab) [address] [place], [address], 10/08/2024 07:31:47 10/08/20 24 10/08/2024 CBC W/ DIFFE RENTI AL* baso abs count 0.1 TH/cm m 0.0 - 0.2 Not Available [facility] (Lab) [address] [place] [address], 40705, 10/08/2024 07:31:47 10/08/20 24 10/08/2024 CBC W/ DIFFE RENTI AL* Ig abs count 0.1 TH/cm m 0.0 - 0.1 Not Available [facility] (Lab) [address] [place] [address], 96497, 10/08/2024 07:31:47 10/08/20 24 10/08/2024 CBC W/ DIFFE RENTI AL* NRBC abs count 0.0 mil/c mm 0.0 - 0.0 Not Available [facility] (Lab) [address] [place] [address], 07305, 10/08/2024 07:31:47 10/08/20 24 10/08/2024 CBC W/ DIFFE RENTI AL* RBC 3.88 mil/c mm 3.90 - 5.40 low Not Available [facility] (Lab) [address] [place] [address], 74772, 10/08/2024 07:31:47 10/08/20 24 10/08/2024 CBC W/ DIFFE RENTI AL* hemoglobin 10.7 gm/dL 12.0 - 16.0 low Not Available [facility] (Lab) [address] [place] [address], 95599, 10/08/2024 07:31:47 10/08/20 24 10/08/2024 CBC W/ DIFFE RENTI AL* hematocrit 34 % 37 - 47 low Not Available [facility] (Lab) [address] [place] [address], 08585, 10/08/2024 07:31:47 10/08/20 24 10/08/2024 CBC W/ DIFFE RENTI AL* MCV 88 fL 82 - 92 Not Available [facility] (Lab) [address] [place] [address], 09847, 10/08/2024 07:31:47 10/08/20 24 10/08/2024 CBC W/ DIFFE RENTI AL* MCH 27.6 pg 27.0 - 31.0 Not Available [facility] (Lab) [address] [place] [address], 25260, 10/08/2024 07:31:47 10/08/20 24 10/08/2024 CBC W/ DIFFE RENTI AL* MCHC 31.3 % 32.0 - 36.0 low Not Available [facility] (Lab) [address] [place] [address], 80907, 10/08/2024 07:31:47 10/08/20 24 10/08/2024 CBC W/ DIFFE RENTI AL* RDW-SD 46.1 fL 39.0 - 49.0 Not Available [facility] (Lab) [address] [place] [address], 46457, 10/08/2024 07:31:47 10/08/20 24 10/08/2024 CBC W/ DIFFE RENTI AL* platelet count 437 TH/cm m 150 - 450 Not Available [facility] (Lab) [address] [place] [address], 40408, 10/08/2024 07:31:47 10/09/20 24 10/09/2024 NOVA GLUCO SE FINGE R HEEL CAPIL LEON glucose cap 101 mg/dL 70 - 116 Not Available [facility] (Lab) [address] [place] [address], 56585, 10/09/2024 19:40:39 10/09/20 24 10/09/2024 NOVA GLUCO SE FINGE R HEEL CAPIL LEON glucose cap 121 mg/dL 70 - 116 high Not Available [facility] (Lab) [address] [place] [address], 86262, 10/09/2024 18:40:38 10/09/20 24 10/09/2024 NOVA GLUCO SE FINGE R HEEL CAPIL LEON glucose cap 112 mg/dL 70 - 116 Not Available [facility] (Lab) [address] [place] [address], 31888, 10/09/2024 11:50:40 10/09/20 24 10/09/2024 NOVA GLUCO SE FINGE R HEEL CAPIL LEON glucose cap 79 mg/dL 70 - 116 Not Available [facility] (Lab) [address] [place] [address], 31652, 10/09/2024 08:47:05 10/09/20 24 10/09/2024 BASIC METAB OLIC PANEL (BMP) glucose 64 mg/dL 70 - 116 low Not Available [facility] (Lab) [address] [place] [address], [id number], 10/09/2024 07:48:58 10/09/20 24 10/09/2024 BASIC METAB OLIC PANEL (BMP) BUN 63 mg/dL 7 - 17 high Not Available [facility] (Lab) [address] [place] [address], [id number], 10/09/2024 07:48:58 10/09/20 24 10/09/2024 BASIC METAB OLIC PANEL (BMP) creatinine 5.87 mg/dL 0.52 - 1.04 high Not Available [facility] (Lab) [address] [place] [address], [id number], 10/09/2024 07:48:58 10/09/20 24 10/09/2024 BASIC METAB OLIC PANEL (BMP) sodium serum 143 mmol/ L 136 - 145 Not Available [facility] (Lab) [address] [place] [address], [id number], 10/09/2024 07:48:58 10/09/20 24 10/09/2024 BASIC METAB OLIC PANEL (BMP) potassium serum 4.5 mmol/ L 3.4 - 5.2 Not Available [facility] (Lab) [address] [place] [address], 87442, 10/09/2024 07:48:58 10/09/20 24 10/09/2024 BASIC METAB OLIC PANEL (BMP) chloride serum 115 mmol/ L 98 - 107 high Not Available [facility] (Lab) [address] [place] [address], 56058, 10/09/2024 07:48:58 10/09/20 24 10/09/2024 BASIC METAB OLIC PANEL (BMP) carbon dioxide (co2) 19 mmol/ L 22 - 30 low Not Available [facility] (Lab) [address] [place] [address], 42813, 10/09/2024 07:48:58 10/09/20 24 10/09/2024 BASIC METAB OLIC PANEL (BMP) anion gap 8.4 mmol/ L Not Available [facility] (Lab) [address] [place] [address], 54825, 10/09/2024 07:48:58 10/09/20 24 10/09/2024 BASIC METAB OLIC PANEL (BMP) calcium serum 8.1 mg/dL 8.4 - 10.2 low Not Available [facility] (Lab) [address] [place] [address], 56451, 10/09/2024 07:48:58 10/09/20 24 10/09/2024 BASIC METAB OLIC PANEL (BMP) age 49 years Not Available [facility] (Lab) [address] [place] [address], 09879, 10/09/2024 07:48:58 10/09/20 24 10/09/2024 BASIC METAB OLIC PANEL (BMP) eGFR (non-afr.narayan r.) 8 mL/mi n Not Available [facility] (Lab) [address] [place] [address], 97005, 10/09/2024 07:48:58 10/09/20 24 10/09/2024 BASIC METAB [...] than 18 years of age. Not Available [facility] (Lab) [address] [place] [address], 31884, 10/09/2024 07:48:58 10/09/20 24 10/09/2024 CBC W/ DIFFE RENTI AL* WBC 13.10 TH/cm m 5.00 - 10.00 high Not Available [facility] (Lab) [address] [place] [address], 47616, 10/09/2024 07:45:57 10/09/20 24 10/09/2024 CBC W/ DIFFE RENTI AL* neut % 58.6 % 40.0 - 80.0 Not Available [facility] (Lab) [address] [place] [address], 07492, 10/09/2024 07:45:57 10/09/20 24 10/09/2024 CBC W/ DIFFE RENTI AL* lymph % 31.2 % 10.0 - 50.0 Not Available [facility] (Lab) [address] [place] [address], 99761, 10/09/2024 07:45:57 10/09/20 24 10/09/2024 CBC W/ DIFFE RENTI AL* mono % 7.1 % 2.0 - 12.0 Not Available [facility] (Lab) [address] [place] [address], 45262, 10/09/2024 07:45:57 10/09/20 24 10/09/2024 CBC W/ DIFFE RENTI AL* eos % 2.3 % 0.0 - 8.0 Not Available [facility] (Lab) [address] [place] [address], 72795, 10/09/2024 07:45:57 10/09/20 24 10/09/2024 CBC W/ DIFFE RENTI AL* baso % 0.5 % 0.0 - 3.0 Not Available [facility] (Lab) [address] [place] [address], 79288, 10/09/2024 07:45:57 10/09/20 24 10/09/2024 CBC W/ DIFFE RENTI AL* Ig % 0.3 % 0.0 - 1.1 Not Available [facility] (Lab) [address] [place] [address], 74911, 10/09/2024 07:45:57 10/09/20 24 10/09/2024 CBC W/ DIFFE RENTI AL* NRBC % 0.0 % 0.0 - 0.0 Not Available [facility] (Lab) [address] [place] [address], 35523, 10/09/2024 07:45:57 10/09/20 24 10/09/2024 CBC W/ DIFFE RENTI AL* neut abs count 7.7 TH/cm m 1.6 - 8.4 Not Available [facility] (Lab) [address] [place] [address], 70036, 10/09/2024 07:45:57 10/09/20 24 10/09/2024 CBC W/ DIFFE RENTI AL* lymph abs count 4.1 TH/cm m 1.5 - 4.0 high Not Available [facility] (Lab) [address] [place] [address], 76751, 10/09/2024 07:45:57 10/09/20 24 10/09/2024 CBC W/ DIFFE RENTI AL* mono abs count 0.9 TH/cm m 0.2 - 1.0 Not Available [facility] (Lab) [address] [place] [address], 78788, 10/09/2024 07:45:57 10/09/20 24 10/09/2024 CBC W/ DIFFE RENTI AL* eos abs count 0.3 TH/cm m 0.0 - 0.5 Not Available [facility] (Lab) [address] [place] [address], 32636, 10/09/2024 07:45:57 10/09/20 24 10/09/2024 CBC W/ DIFFE RENTI AL* baso abs count 0.1 TH/cm m 0.0 - 0.2 Not Available [facility] (Lab) [address] [place] [address], 88723, 10/09/2024 07:45:57 10/09/20 24 10/09/2024 CBC W/ DIFFE RENTI AL* Ig abs count 0.0 TH/cm m 0.0 - 0.1 Not Available [facility] (Lab) [address] [place] [address], 28606, 10/09/2024 07:45:57 10/09/20 24 10/09/2024 CBC W/ DIFFE RENTI AL* NRBC abs count 0.0 mil/c mm 0.0 - 0.0 Not Available [facility] (Lab) [address] [place] [address], 49380, 10/09/2024 07:45:57 10/09/20 24 10/09/2024 CBC W/ DIFFE RENTI AL* RBC 3.38 mil/c mm 3.90 - 5.40 low Not Available [facility] (Lab) [address] [place] [address], 57241, 10/09/2024 07:45:57 10/09/20 24 10/09/2024 CBC W/ DIFFE RENTI AL* hemoglobin 9.2 gm/dL 12.0 - 16.0 low Not Available [facility] (Lab) [address] [place] [address], 11041, 10/09/2024 07:45:57 10/09/20 24 10/09/2024 CBC W/ DIFFE RENTI AL* hematocrit 30 % 37 - 47 low Not Available [facility] (Lab) [address] [place] [address], 46929, 10/09/2024 07:45:57 10/09/20 24 10/09/2024 CBC W/ DIFFE RENTI AL* MCV 89 fL 82 - 92 Not Available [facility] (Lab) [address] [place] [address], 01476, 10/09/2024 07:45:57 10/09/20 24 10/09/2024 CBC W/ DIFFE RENTI AL* MCH 27.2 pg 27.0 - 31.0 Not Available [facility] (Lab) [address] [place] [address], 55649, 10/09/2024 07:45:57 10/09/20 24 10/09/2024 CBC W/ DIFFE RENTI AL* MCHC 30.5 % 32.0 - 36.0 low Not Available [facility] (Lab) [address] [place] [address], 99434, 10/09/2024 07:45:57 10/09/20 24 10/09/2024 CBC W/ DIFFE RENTI AL* RDW-SD 46.1 fL 39.0 - 49.0 Not Available [facility] (Lab) [address] [place] [address], 34464, 10/09/2024 07:45:57 10/09/20 24 10/09/2024 CBC W/ DIFFE RENTI AL* platelet count 358 TH/cm m 150 - 450 Not Available [facility] (Lab) [address] [place] [address], 96102, 10/09/2024 07:45:57 10/10/20 24 10/10/2024 NOVA GLUCO SE FINGE R HEEL CAPIL LEON glucose cap 105 mg/dL 70 - 116 Not Available [facility] (Lab) [address] [place] [address], 93774, 10/10/2024 20:35:34 10/10/20 24 10/10/2024 NOVA GLUCO SE FINGE R HEEL CAPIL LEON glucose cap 131 mg/dL 70 - 116 high Not Available [facility] (Lab) [address] [place] [address], 10939, 10/10/2024 17:16:26 10/10/20 24 10/10/2024 NOVA GLUCO SE FINGE R HEEL CAPIL LEON glucose cap 107 mg/dL 70 - 116 Not Available [facility] (Lab) [address] [place] [address], 33375, 10/10/2024 12:12:52 10/10/20 24 10/10/2024 BASIC METAB OLIC PANEL (BMP) glucose 128 mg/dL 70 - 116 high Not Available [facility] (Lab) [address] [place] [address], 09910, 10/10/2024 10:30:37 10/10/20 24 10/10/2024 BASIC METAB OLIC PANEL (BMP) BUN 69 mg/dL 7 - 17 high Not Available [facility] (Lab) [address] [place] [address], 17931, 10/10/2024 10:30:37 10/10/20 24 10/10/2024 BASIC METAB OLIC PANEL (BMP) creatinine 5.68 mg/dL 0.52 - 1.04 high Not Available [facility] (Lab) [address] [place] [address], 38310, 10/10/2024 10:30:37 10/10/20 24 10/10/2024 BASIC METAB OLIC PANEL (BMP) sodium serum 141 mmol/ L 136 - 145 Not Available [facility] (Lab) [address] [place], [address], 10/10/2024 10:30:37 10/10/20 24 10/10/2024 BASIC METAB OLIC PANEL (BMP) potassium serum 5.4 mmol/ L 3.4 - 5.2 high Not Available [facility] (Lab) [address] [place], [address], 10/10/2024 10:30:37 10/10/20 24 10/10/2024 BASIC METAB OLIC PANEL (BMP) chloride serum 111 mmol/ L 98 - 107 high Not Available [facility] (Lab) [address] [place] [address], 74787, 10/10/2024 10:30:37 10/10/20 24 10/10/2024 BASIC METAB OLIC PANEL (BMP) carbon dioxide (co2) 20 mmol/ L 22 - 30 low Not Available [facility] (Lab) [address] [place] [address], 66584, 10/10/2024 10:30:37 10/10/20 24 10/10/2024 BASIC METAB OLIC PANEL (BMP) anion gap 10.2 mmol/ L Not Available [facility] (Lab) [address] [place] [address], 76087, 10/10/2024 10:30:37 10/10/20 24 10/10/2024 BASIC METAB OLIC PANEL (BMP) calcium serum 8.4 mg/dL 8.4 - 10.2 Not Available [facility] (Lab) [address] [place] [address], 60587, 10/10/2024 10:30:37 10/10/20 24 10/10/2024 BASIC METAB OLIC PANEL (BMP) age 49 years Not Available [facility] (Lab) [address] [place] [address], 68022, 10/10/2024 10:30:37 10/10/20 24 10/10/2024 BASIC METAB OLIC PANEL (BMP) eGFR (non-afr.narayan r.) 8 mL/mi n Not Available [facility] (Lab) [address] [place] [address], 77552, 10/10/2024 10:30:37 10/10/20 24 10/10/2024 BASIC METAB [...] than 18 years of age. Not Available [facility] (Lab) [address] [place] [address], 16212, 10/10/2024 10:30:37 10/10/20 24 10/10/2024 CBC W/ DIFFE RENTI AL* WBC 13.29 TH/cm m 5.00 - 10.00 high Not Available [facility] (Lab) [address] [place] [address], 81947, 10/10/2024 10:15:34 10/10/20 24 10/10/2024 CBC W/ DIFFE RENTI AL* neut % 59.5 % 40.0 - 80.0 Not Available [facility] (Lab) [address] [place], [address], 10/10/2024 10:15:34 10/10/20 24 10/10/2024 CBC W/ DIFFE RENTI AL* lymph % 29.6 % 10.0 - 50.0 Not Available [facility] (Lab) [address] [place] [address], 98562, 10/10/2024 10:15:34 10/10/20 24 10/10/2024 CBC W/ DIFFE RENTI AL* mono % 7.3 % 2.0 - 12.0 Not Available [facility] (Lab) [address] [place] [address], 18728, 10/10/2024 10:15:34 10/10/20 24 10/10/2024 CBC W/ DIFFE RENTI AL* eos % 2.6 % 0.0 - 8.0 Not Available [facility] (Lab) [address] [place] [address], 85752, 10/10/2024 10:15:34 10/10/20 24 10/10/2024 CBC W/ DIFFE RENTI AL* baso % 0.5 % 0.0 - 3.0 Not Available [facility] (Lab) [address] [place] [address], 01323, 10/10/2024 10:15:34 10/10/20 24 10/10/2024 CBC W/ DIFFE RENTI AL* Ig % 0.5 % 0.0 - 1.1 Not Available [facility] (Lab) [address] [place] [address], 35857, 10/10/2024 10:15:34 10/10/20 24 10/10/2024 CBC W/ DIFFE RENTI AL* NRBC % 0.0 % 0.0 - 0.0 Not Available [facility] (Lab) [address] [place] [address], 37093, 10/10/2024 10:15:34 10/10/20 24 10/10/2024 CBC W/ DIFFE RENTI AL* neut abs count 7.9 TH/cm m 1.6 - 8.4 Not Available [facility] (Lab) [address] [place] [address], 08588, 10/10/2024 10:15:34 10/10/20 24 10/10/2024 CBC W/ DIFFE RENTI AL* lymph abs count 3.9 TH/cm m 1.5 - 4.0 Not Available [facility] (Lab) [address] [place] [address], 26358, 10/10/2024 10:15:34 10/10/20 24 10/10/2024 CBC W/ DIFFE RENTI AL* mono abs count 1.0 TH/cm m 0.2 - 1.0 Not Available [facility] (Lab) [address] [place] [address], 82417, 10/10/2024 10:15:34 10/10/20 24 10/10/2024 CBC W/ DIFFE RENTI AL* eos abs count 0.3 TH/cm m 0.0 - 0.5 Not Available [facility] (Lab) [address] [place] [address], 12304, 10/10/2024 10:15:34 10/10/20 24 10/10/2024 CBC W/ DIFFE RENTI AL* baso abs count 0.1 TH/cm m 0.0 - 0.2 Not Available [facility] (Lab) [address] [place] [address], 01333, 10/10/2024 10:15:34 10/10/20 24 10/10/2024 CBC W/ DIFFE RENTI AL* Ig abs count 0.1 TH/cm m 0.0 - 0.1 Not Available [facility] (Lab) [address] [place] [address], 27473, 10/10/2024 10:15:34 10/10/20 24 10/10/2024 CBC W/ DIFFE RENTI AL* NRBC abs count 0.0 mil/c mm 0.0 - 0.0 Not Available [facility] (Lab) [address] [place] [address], 90708, 10/10/2024 10:15:34 10/10/20 24 10/10/2024 CBC W/ DIFFE RENTI AL* RBC 3.65 mil/c mm 3.90 - 5.40 low Not Available [facility] (Lab) [address] [place] [address], 84865, 10/10/2024 10:15:34 10/10/20 24 10/10/2024 CBC W/ DIFFE RENTI AL* hemoglobin 9.9 gm/dL 12.0 - 16.0 low Not Available [facility] (Lab) [address] [place] [address], 68273, 10/10/2024 10:15:34 10/10/20 24 10/10/2024 CBC W/ DIFFE RENTI AL* hematocrit 32 % 37 - 47 low Not Available [facility] (Lab) [address] [place] [address], 22026, 10/10/2024 10:15:34 10/10/20 24 10/10/2024 CBC W/ DIFFE RENTI AL* MCV 89 fL 82 - 92 Not Available [facility] (Lab) [address] [place] [address], 22516, 10/10/2024 10:15:34 10/10/20 24 10/10/2024 CBC W/ DIFFE RENTI AL* MCH 27.1 pg 27.0 - 31.0 Not Available [facility] (Lab) [address] [place] [address], 61361, 10/10/2024 10:15:34 10/10/20 24 10/10/2024 CBC W/ DIFFE RENTI AL* MCHC 30.6 % 32.0 - 36.0 low Not Available [facility] (Lab) [address] [place] [address], 02731, 10/10/2024 10:15:34 10/10/20 24 10/10/2024 CBC W/ DIFFE RENTI AL* RDW-SD 46.2 fL 39.0 - 49.0 Not Available [facility] (Lab) [address] [place] [address], 46227, 10/10/2024 10:15:34 10/10/20 24 10/10/2024 CBC W/ DIFFE RENTI AL* platelet count 427 TH/cm m 150 - 450 Not Available [facility] (Lab) [address] [place] [address], 77308, 10/10/2024 10:15:34 10/10/20 24 10/10/2024 NOVA GLUCO SE FINGE R HEEL CAPIL LEON glucose cap 81 mg/dL 70 - 116 Not Available [facility] (Lab) [address] [place] [address], 78149, 10/10/2024 07:55:16 10/11/20 24 10/11/2024 NOVA GLUCO SE FINGE R HEEL CAPIL LEON glucose cap 161 mg/dL 70 - 116 high Not Available [facility] (Lab) [address] [place] [address], 70896, 10/11/2024 11:49:24 10/11/20 24 10/11/2024 NOVA GLUCO SE FINGE R HEEL CAPIL LEON glucose cap 88 mg/dL 70 - 116 Not Available [facility] (Lab) [address] [place] [address], 27091, 10/11/2024 07:54:17 10/11/20 24 10/11/2024 BASIC METAB OLIC PANEL (BMP) glucose 95 mg/dL 70 - 116 Not Available [facility] (Lab) [address] [place] [address], 64498, 10/11/2024 07:54:20 10/11/20 24 10/11/2024 BASIC METAB OLIC PANEL (BMP) BUN 74 mg/dL 7 - 17 high Not Available [facility] (Lab) [address] [place] [address], 11952, 10/11/2024 07:54:20 10/11/20 24 10/11/2024 BASIC METAB OLIC PANEL (BMP) creatinine 5.86 mg/dL 0.52 - 1.04 high Not Available [facility] (Lab) [address] [place] [address], 79941, 10/11/2024 07:54:20 10/11/20 24 10/11/2024 BASIC METAB OLIC PANEL (BMP) sodium serum 141 mmol/ L 136 - 145 Not Available [facility] (Lab) [address] [place] [address], 57584, 10/11/2024 07:54:20 10/11/20 24 10/11/2024 BASIC METAB OLIC PANEL (BMP) potassium serum 5.3 mmol/ L 3.4 - 5.2 high Not Available [facility] (Lab) [address] [place], [address], 10/11/2024 07:54:20 10/11/20 24 10/11/2024 BASIC METAB OLIC PANEL (BMP) chloride serum 115 mmol/ L 98 - 107 high Not Available [facility] (Lab) [address] [place] [address], 96077, 10/11/2024 07:54:20 10/11/20 24 10/11/2024 BASIC METAB OLIC PANEL (BMP) carbon dioxide (co2) 18 mmol/ L 22 - 30 low Not Available [facility] (Lab) [address] [place] [address], 48218, 10/11/2024 07:54:20 10/11/20 24 10/11/2024 BASIC METAB OLIC PANEL (BMP) anion gap 8.8 mmol/ L Not Available [facility] (Lab) [address] [place] [address], 14894, 10/11/2024 07:54:20 10/11/20 24 10/11/2024 BASIC METAB OLIC PANEL (BMP) calcium serum 8.4 mg/dL 8.4 - 10.2 Not Available [facility] (Lab) [address] [place] [address], 56832, 10/11/2024 07:54:20 10/11/20 24 10/11/2024 BASIC METAB OLIC PANEL (BMP) age 49 years Not Available [facility] (Lab) [address] [place] [address] [place], [address], 10/11/2024 07:54:20 10/11/20 24 10/11/2024 BASIC METAB OLIC PANEL (BMP) eGFR (non-afr.narayan r.) 8 mL/mi n Not Available [facility] (Lab) [address] [place] [address], 73186, 10/11/2024 07:54:20 10/11/20 24 10/11/2024 BASIC METAB [...] than 18 years of age. Not Available [facility] (Lab) [address] [place], [address], 10/11/2024 07:54:20 10/11/20 24 10/11/2024 BASIC METAB OLIC PANEL (BMP) glucose 95 mg/dL 70 - 116 Not Available [facility] (Lab) [address] [place] [address], 35732, 10/11/2024 07:54:18 10/11/20 24 10/11/2024 BASIC METAB OLIC PANEL (BMP) BUN 74 mg/dL 7 - 17 high Not Available [facility] (Lab) [address] [place], [address], 10/11/2024 07:54:18 10/11/20 24 10/11/2024 BASIC METAB OLIC PANEL (BMP) creatinine 5.86 mg/dL 0.52 - 1.04 high Not Available [facility] (Lab) [address] [place] [address], 47964, 10/11/2024 07:54:18 10/11/20 24 10/11/2024 BASIC METAB OLIC PANEL (BMP) sodium serum 141 mmol/ L 136 - 145 Not Available [facility] (Lab) [address] [place], [address], 10/11/2024 07:54:18 10/11/20 24 10/11/2024 BASIC METAB OLIC PANEL (BMP) potassium serum 5.3 mmol/ L 3.4 - 5.2 high Not Available [facility] (Lab) [address] [place], [address], 10/11/2024 07:54:18 10/11/20 24 10/11/2024 BASIC METAB OLIC PANEL (BMP) chloride serum 115 mmol/ L 98 - 107 high Not Available [facility] (Lab) [address] [place] [address], 47536, 10/11/2024 07:54:18 10/11/20 24 10/11/2024 BASIC METAB OLIC PANEL (BMP) carbon dioxide (co2) 18 mmol/ L 22 - 30 low Not Available [facility] (Lab) [address] [place] [address], 68454, 10/11/2024 07:54:18 10/11/20 24 10/11/2024 BASIC METAB OLIC PANEL (BMP) anion gap 8.8 mmol/ L Not Available [facility] (Lab) [address] [place] [address], 50374, 10/11/2024 07:54:18 10/11/20 24 10/11/2024 BASIC METAB OLIC PANEL (BMP) calcium serum 8.4 mg/dL 8.4 - 10.2 Not Available [facility] (Lab) [address] [place] [address], 76367, 10/11/2024 07:54:18 10/11/20 24 10/11/2024 BASIC METAB OLIC PANEL (BMP) age 49 years Not Available [facility] (Lab) [address] [place] [address], 70915, 10/11/2024 07:54:18 10/11/20 24 10/11/2024 BASIC METAB OLIC PANEL (BMP) eGFR (non-afr.narayan r.) 8 mL/mi n Not Available [facility] (Lab) [address] [place] [address], 35366, 10/11/2024 07:54:18 10/11/20 24 10/11/2024 BASIC METAB [...] than 18 years of age. Not Available [facility] (Lab) [address] [place] [address], 60706, 10/11/2024 07:54:18 10/11/20 24 10/11/2024 CBC W/ DIFFE RENTI AL* WBC 12.04 TH/cm m 5.00 - 10.00 high Not Available [facility] (Lab) [address] [place] [address], 93676, 10/11/2024 07:36:18 10/11/20 24 10/11/2024 CBC W/ DIFFE RENTI AL* neut % 59.2 % 40.0 - 80.0 Not Available [facility] (Lab) [address] [place] [address], 19930, 10/11/2024 07:36:18 10/11/20 24 10/11/2024 CBC W/ DIFFE RENTI AL* lymph % 28.6 % 10.0 - 50.0 Not Available [facility] (Lab) [address] [place] [address], 56816, 10/11/2024 07:36:18 10/11/20 24 10/11/2024 CBC W/ DIFFE RENTI AL* mono % 8.7 % 2.0 - 12.0 Not Available [facility] (Lab) [address] [place] [address], 37008, 10/11/2024 07:36:18 10/11/20 24 10/11/2024 CBC W/ DIFFE RENTI AL* eos % 2.5 % 0.0 - 8.0 Not Available [facility] (Lab) [address] [place] [address], 65788, 10/11/2024 07:36:18 10/11/20 24 10/11/2024 CBC W/ DIFFE RENTI AL* baso % 0.5 % 0.0 - 3.0 Not Available [facility] (Lab) [address] [place] [address], 32241, 10/11/2024 07:36:18 10/11/20 24 10/11/2024 CBC W/ DIFFE RENTI AL* Ig % 0.5 % 0.0 - 1.1 Not Available [facility] (Lab) [address] [place] [address], 14764, 10/11/2024 07:36:18 10/11/20 24 10/11/2024 CBC W/ DIFFE RENTI AL* NRBC % 0.0 % 0.0 - 0.0 Not Available [facility] (Lab) [address] [place] [address], 02722, 10/11/2024 07:36:18 10/11/20 24 10/11/2024 CBC W/ DIFFE RENTI AL* neut abs count 7.1 TH/cm m 1.6 - 8.4 Not Available [facility] (Lab) [address] [place] [address], 88172, 10/11/2024 07:36:18 10/11/20 24 10/11/2024 CBC W/ DIFFE RENTI AL* lymph abs count 3.4 TH/cm m 1.5 - 4.0 Not Available [facility] (Lab) [address] [place] [address], 14659, 10/11/2024 07:36:18 10/11/20 24 10/11/2024 CBC W/ DIFFE RENTI AL* mono abs count 1.1 TH/cm m 0.2 - 1.0 high Not Available [facility] (Lab) [address] [place] [address], 80296, 10/11/2024 07:36:18 10/11/20 24 10/11/2024 CBC W/ DIFFE RENTI AL* eos abs count 0.3 TH/cm m 0.0 - 0.5 Not Available [facility] (Lab) [address] [place] [address], 88757, 10/11/2024 07:36:18 10/11/20 24 10/11/2024 CBC W/ DIFFE RENTI AL* baso abs count 0.1 TH/cm m 0.0 - 0.2 Not Available [facility] (Lab) [address] [place] [address], 84133, 10/11/2024 07:36:18 10/11/20 24 10/11/2024 CBC W/ DIFFE RENTI AL* Ig abs count 0.1 TH/cm m 0.0 - 0.1 Not Available [facility] (Lab) [address] [place] [address], 85517, 10/11/2024 07:36:18 10/11/20 24 10/11/2024 CBC W/ DIFFE RENTI AL* NRBC abs count 0.0 mil/c mm 0.0 - 0.0 Not Available [facility] (Lab) [address] [place] [address], 87183, 10/11/2024 07:36:18 10/11/20 24 10/11/2024 CBC W/ DIFFE RENTI AL* RBC 3.19 mil/c mm 3.90 - 5.40 low Not Available [facility] (Lab) [address] [place] [address], 62382, 10/11/2024 07:36:18 10/11/20 24 10/11/2024 CBC W/ DIFFE RENTI AL* hemoglobin 8.9 gm/dL 12.0 - 16.0 low Not Available [facility] (Lab) [address] [place] [address], [id number], 10/11/2024 07:36:18 10/11/20 24 10/11/2024 CBC W/ DIFFE RENTI AL* hematocrit 28 % 37 - 47 low Not Available [facility] (Lab) [address] [place] [address], [id number], 10/11/2024 07:36:18 10/11/20 24 10/11/2024 CBC W/ DIFFE RENTI AL* MCV 88 fL 82 - 92 Not Available [facility] (Lab) [address] [place] [address], [id number], 10/11/2024 07:36:18 10/11/20 24 10/11/2024 CBC W/ DIFFE RENTI AL* MCH 27.9 pg 27.0 - 31.0 Not Available [facility] (Lab) [address] [place] [address], [id number], 10/11/2024 07:36:18 10/11/20 24 10/11/2024 CBC W/ DIFFE RENTI AL* MCHC 31.6 % 32.0 - 36.0 low Not Available [facility] (Lab) [address] [place] [address], [id number], 10/11/2024 07:36:18 10/11/20 24 10/11/2024 CBC W/ DIFFE RENTI AL* RDW-SD 46.0 fL 39.0 - 49.0 Not Available [facility] (Lab) [address] [place] [address], [id number], 10/11/2024 07:36:18 10/11/20 24 10/11/2024 CBC W/ DIFFE RENTI AL* platelet count 355 TH/cm m 150 - 450 Not Available [facility] (Lab) [address] [place] [address], [address], 10/11/2024 07:36:18 10/19/19 25 10/19/2024 BASIC METAB OLIC PANEL calcium 9.2 mg/dL 8.5-10 .1 normal Not Available [address] [place], [address] 10/19/2024 22:10:18 10/19/1910/19/2024 BASIC METAB OLIC PANEL glucose 97 mg/dL 74-106 normal Not Available [facility] [address] [place], [address] 10/19/2024 22:10:18 10/19/1910/19/2024 BASIC METAB OLIC PANEL BUN 72 mg/dL 7-18 high Not Available [facility] [address] [place], [address] 10/19/2024 22:10:18 10/19/1910/19/2024 BASIC METAB OLIC PANEL creatinine 5.8 mg/dL 0.55-1 .02 panic high Criti ting value repor curtis to and [facility] at 2208 10/19 by LAB.J ENK Not Available [address] [place], [address] 10/19/2024 22:10:18 10/19/1910/19/2024 BASIC METAB OLIC PANEL estimated GFR 8.38 [...] young er-ag ed adult s. Not Available [address] [place], [address] 10/19/2024 22:10:18 10/19/19 25 10/19/2024 BASIC METAB OLIC PANEL sodium 142 mmol/ L 136-14 5 normal Not Available [address] [place], [address] 10/19/2024 22:10:18 10/19/19 25 10/19/2024 BASIC METAB OLIC PANEL potassium 4.8 mmol/ L 3.5-5. 1 normal Not Available [address] [place], [address] 10/19/2024 22:10:18 10/19/19 25 10/19/2024 BASIC METAB OLIC PANEL chloride 108 mmol/ L 98-107 high Not Available [address] [place], [address] 10/19/2024 22:10:18 10/19/19 25 10/19/2024 BASIC METAB OLIC PANEL CO2 25.7 mmol/ L 21.0-3 2.0 normal Not Available [address] [place], [address] 10/19/2024 22:10:18 10/19/19 25 10/19/2024 BASIC METAB OLIC PANEL anion gap 8.3 mmol/ L 3-11 normal Not Available [address] [place], [address] 10/19/2024 22:10:18 10/20/19 25 10/23/2024 HEP A [...] r [address] [place] [address] Not Available [address] [place], [address] 10/23/2024 11:45:49 10/20/19 25 10/23/2024 HEPAT ITIS B SURFA CE AG hepatitis B surface Ag Negati ve negati ve Test perfo rmed or refer red by [facility] [address] [place] [address] Not Available [address] [place], [address] 10/23/2024 11:45:50 10/20/19 25 10/23/2024 HEP A TOTAL AB W RFLX IGM hep A total Ab W rflx IgM Negati ve negati ve The resul t of this assay can be false ly eleva curtis (Posi tive) due to the consu mptio n of Bioti n. Test perfo rmed or refer red by [facility] [address], [place] [facility] [place] [address] Not Available [address] [place], [address] 10/23/2024 11:45:52 10/20/19 25 10/23/2024 HEPAT ITIS B SURFA CE AG hepatitis B surface Ag Negati ve negati ve Test perfo rmed or refer red by [facility] [address], [place] [facility] [place] [address] Not Available [address] [place], [address] 10/23/2024 11:45:53 10/20/19 25 10/23/2024 C4 COMPL EMENT C4 complement 28 mg/dL 13-39 Test perfo rmed or refer red by [facility] [address], [place] [facility] [place] [address] Not Available [address] [place], [address] 10/23/2024 11:45:55 10/20/19 25 10/23/2024 C3 COMPL EMENT C3 complement 151 mg/dL 81-157 Test perfo rmed or refer red by [facility] [address], [place] [facility] [place] [address] Not Available [address] [place], [address] 10/23/2024 16:14:31 10/20/19 25 10/23/2024 HEP A TOTAL AB W RFLX IGM hep A total Ab W rflx IgM Negati ve negati ve The resul t of this assay can be false ly eleva curtis (Posi tive) due to the consu mptio n of Bioti n. Test perfo rmed or refer red by [facility] [address], [place] [address] Not Available [address] [place], [address] 10/23/2024 14:29:08 10/20/19 25 10/23/2024 HEPAT ITIS B SURFA CE AG hepatitis B surface Ag Negati ve negati ve Test perfo rmed or refer red by [facility] [address], [place] [address] Not Available [address] [place], [address] 10/23/2024 14:29:09 10/20/19 25 10/23/2024 HEP B CORE ANTIB GUSTAVO hep B core antibody Negati ve negati ve Test perfo rmed or refer red by [facility] [address], [place] [address] Not Available [address] [place], [address] 10/23/2024 14:29:09 10/20/19 25 10/23/2024 ANTI NUCLE [...] 48 hours refri gerat ed. Not Available [address] [place], [address] 10/23/2024 16:14:29 10/20/19 25 10/23/2024 ANTI NUCLE AR ANTIB GUSTAVO, IFA DEIDRE titer pattern 1:160 Speckl ed Resul ts were obtai ihsan with the Werfe n NOVA Lite HEp-2 DEIDRE Kit by indir ect immun [facility]. Test perfo rmed or refer red by [facility] [address], [place] [facility] [place] [address] Not Available [address] [place], [address] 10/23/2024 16:14:29 10/20/19 25 10/23/2024 C4 COMPL EMENT C4 complement 28 mg/dL 13-39 Test perfo rmed or refer red by [facility] [address], [place] [facility] [place] [address] Not Available [address] [place], [address] 10/23/2024 16:14:30 10/20/19 25 10/23/2024 HEP A TOTAL AB W RFLX IGM hep A total Ab W rflx IgM Negati ve negati ve The resul t of this assay can be false ly eleva curtis (Posi tive) due to the consu mptio n of Bioti n. Test perfo rmed or refer red by [facility] [address], [place] [facility] [place] [address] Not Available [address] [place], [address] 10/23/2024 23:27:17 10/20/19 25 10/23/2024 HEPAT ITIS B SURFA CE AG hepatitis B surface Ag Negati ve negati ve Test perfo rmed or refer red by [facility] [address], [place] [facility] [place] [address] Not Available [address] [place], [address] 10/23/2024 23:27:17 10/20/19 25 10/23/2024 ANTI NUCLE [...] 48 hours refri gerat ed. Not Available [address] [place], [address] 10/23/2024 23:27:19 10/20/19 25 10/23/2024 ANTI NUCLE AR ANTIB GUSTAVO, IFA DEIDRE titer pattern 1:160 Speckl ed Resul ts were obtai hisan with the Werfe n NOVA Lite HEp-2 DEIDRE Kit by indir ect immun ofluo resce nce. Test perfo rmed or refer red by [facility] [address] [place] [address] Not Available [address] [place], [address] 10/23/2024 23:27:19 10/20/19 25 10/23/2024 C4 COMPL EMENT C4 complement 28 mg/dL 13-39 Test perfo rmed or refer red by [facility] [address] [place] [place] [address] Not Available [address] [place], [address] 10/23/2024 23:27:20 10/25/19 25 10/25/2024 PROTH ROMBI N TIME prothrombin time 10.0 sec 9.1-11 .1 normal Not Available [address] [place], [address] 10/25/2024 21:51:20 10/25/19 25 10/25/2024 PROTH ROMBI N TIME INR 1.0 0.9-1. 1 normal Recom zuly d INR thera peuti c range s for orall y admin ister ed drugs are as follo ws: -Leobardo dard Inten sity 2.0 to 3.0 -High er Inten sity 3.0 to 4.5 Not Available [facility] [address] [facility] [place], [address] 10/25/2024 21:51:20 11/01/19 25 11/01/2024 NOVA GLUCO SE FINGE R HEEL CAPIL LEON glucose cap 298 mg/dL 70 - 116 high Not Available [facility] (Lab) [address] [place] [address], [address], 11/01/2024 21:04:14 11/01/19 25 11/01/2024 NOVA GLUCO SE FINGE R HEEL CAPIL LEON glucose cap 446 mg/dL 70 - 116 panic high { COMME NT1: Notif ied Provi mark Not Available [facility] (Lab) [address] [place] [address], [address], 11/01/2024 17:05:02 11/01/19 25 11/01/2024 BASIC METAB OLIC PANEL (BMP) glucose 542 mg/dL 70 - 116 panic high { COMME NT: *Conf .-and -call ed-to TIM Eugene IN ACU Read- back- confi rmed Not Available [facility] (Lab) [address] [place] [address], [address], 11/01/2024 14:48:40 11/01/19 25 11/01/2024 BASIC METAB OLIC PANEL (BMP) BUN 88 mg/dL 7 - 17 high Not Available [facility] (Lab) [address] [place] [address], [address], 11/01/2024 14:48:40 11/01/19 25 11/01/2024 BASIC METAB OLIC PANEL (BMP) creatinine 6.62 mg/dL 0.52 - 1.04 high Not Available [facility] (Lab) [address] [place], [address], 11/01/2024 14:48:40 11/01/19 25 11/01/2024 BASIC METAB OLIC PANEL (BMP) sodium serum 138 mmol/ L 136 - 145 Not Available [facility] (Lab) [address] [place] [address], [address], 11/01/2024 14:48:40 11/01/19 25 11/01/2024 BASIC METAB OLIC PANEL (BMP) potassium serum 5.4 mmol/ L 3.4 - 5.2 high Not Available [facility] (Lab) [address] [place] [address], [address], 11/01/2024 14:48:40 11/01/19 25 11/01/2024 BASIC METAB OLIC PANEL (BMP) chloride serum 107 mmol/ L 98 - 107 Not Available [facility] (Lab) [address] [place] [address], [address], 11/01/2024 14:48:40 11/01/19 25 11/01/2024 BASIC METAB OLIC PANEL (BMP) carbon dioxide (co2) 15 mmol/ L 22 - 30 low Not Available [facility] (Lab) [address] [place] [address], [address], 11/01/2024 14:48:40 11/01/19 25 11/01/2024 BASIC METAB OLIC PANEL (BMP) anion gap 16.3 mmol/ L Not Available [facility] (Lab) [address] [place] [address], [address], 11/01/2024 14:48:40 11/01/19 25 11/01/2024 BASIC METAB OLIC PANEL (BMP) calcium serum 8.1 mg/dL 8.4 - 10.2 low Not Available [facility] (Lab) [address] [place] [address], [address], 11/01/2024 14:48:40 11/01/19 25 11/01/2024 BASIC METAB OLIC PANEL (BMP) age 49 years Not Available [facility] (Lab) [address] [place] [address], [address], 11/01/2024 14:48:40 11/01/19 25 11/01/2024 BASIC METAB OLIC PANEL (BMP) eGFR (non-afr.narayan r.) 7 mL/mi n Not Available [facility] (Lab) [address] [place], [address], 11/01/2024 14:48:40 11/01/19 25 11/01/2024 BASIC METAB OLIC PANEL (BMP) eGFR (afr-aliya n) 8 mL/mi n eGFR <60 ml/mi n for >=3 month s is indic ative of chron ic kidne y The eGFR calcu lated using the MDRD Study equat ion is valid ated non hospi taliz ed patie nts 18 to 70 years of age and is not rep patie nts less than 18 years of age. Not Available [facility] (Lab) [address] [place], [address], 11/01/2024 14:48:40 11/01/19 25 11/01/2024 TROPO KEITH-I * troponin-I 0.039 NG/mL 0.000 - 0.034 high Not Available [facility] (Lab) [address] [place] [address], [address], 11/01/2024 03:54:07 11/01/19 25 11/01/2024 TROPO KEITH-I * specimen seq. 1 HOUR Not Available [facility] (Lab) [address] [place] [address], [address], 11/01/2024 03:54:07 11/01/19 25 11/01/2024 TROPO KEITH-I * troponin-I 0.039 NG/mL 0.000 - 0.034 high Not Available [facility] (Lab) [address] [place], [address], 11/01/2024 03:54:06 11/01/19 25 11/01/2024 TROPO KEITH-I * specimen seq. 1 HOUR Not Available [facility] (Lab) [address] [place] [address], [address], 11/01/2024 03:54:06 11/01/19 25 11/01/2024 COPLE Y COVID FLU RSV GENEX PERT burak covid flu RSV genexpert COVID RSV AND FLU A/B Not Available [facility] (Lab) [address] [place] [address], [address], 11/01/2024 03:11:07 11/01/19 25 11/01/2024 COPLE Y COVID FLU RSV GENEX PERT covid NEGATI VE normal : negati ve Not Available [facility] (Lab) [address] [place] [address], [address], 11/01/2024 03:11:07 11/01/19 25 11/01/2024 COPLE Y COVID FLU RSV GENEX PERT influenza A DNA NEGATI VE normal : negati ve Not Available [facility] (Lab) [address] [place] [address], [address], 11/01/2024 03:11:07 11/01/19 25 11/01/2024 COPLE Y COVID FLU RSV GENEX PERT influenza B DNA NEGATI VE normal : negati ve Not Available [facility] (Lab) [address] [place] [address], [address], 11/01/2024 03:11:07 11/01/19 25 11/01/2024 COPLE Y COVID FLU RSV GENEX PERT RSV DNA NEGATI VE normal : negati ve SOURC E - NASOP HARYN GEAL SWAB A negat court SARS- CoV-2 resul t does not rule out COVID -19 in this patie nt and shoul d not be used as the sole basis for treat ment and patie nt manag ement . The resul ts jamesul d be corre lated with the patie nt's histo ry and clini ting prese ntati on. This test has not been FDA appro jeffery, but has been autho rized by the Food and Drug Admin istra tion under the EUA (Rubi gency Use Autho rizat ion) for use by autho rized labor atori es for the detec tion of nucle ic acid from 2019- nCoV, Influ omar A and B, RSV and not for any other virus es or patho gens. Perfo rmed at [facility] using the [employer] id GeneX pert SARS- CoV-2 /Flu/ RSV assay Not Available [facility] (Lab) [address] [place] [address], [address], 11/01/2024 03:11:07 11/01/1911/01/2024 ORDER VENOU S BLOOD GAS* specimen type: VENOUS Not Available [facility] (Lab) [address] [place] [address], [address], 11/01/2024 02:25:02 11/01/19 25 11/01/2024 ORDER VENOU S BLOOD GAS* pH (venous) 7.31 7.38 - 7.46 low Not Available [facility] (Lab) [address] [place] [address], [address], 11/01/2024 02:25:02 11/01/19 25 11/01/2024 ORDER VENOU S BLOOD GAS* pCO2 (venous) 35.0 mm_hg 41.0 - 51.0 low Not Available [facility] (Lab) [address] [place] [address], 87[address], 11/01/2024 02:25:02 11/01/19 25 11/01/2024 ORDER VENOU S BLOOD GAS* HCO3 18 mmol/ L 22 - 26 low Not Available [facility] (Lab) [address] [place] [address], 09[address], 11/01/2024 02:25:02 11/01/19 25 11/01/2024 ORDER VENOU S BLOOD GAS* TCO2 (venous) 19 mmol/ L 22 - 28 low Not Available [facility] (Lab) [address] [place] [address], 100[address], 11/01/2024 02:25:02 11/01/19 25 11/01/2024 ORDER VENOU S BLOOD GAS* base excess (venous) -9 mmol/ L -2 - 3 low Not Available [facility] (Lab) [address] [place] [address], 138[address], 11/01/2024 02:25:02 11/01/19 25 11/01/2024 LACTI C ACID lactic acid 1.9 mmol/ L 0.7 - 2.1 Not Available [facility] (Lab) [address] [place] [address], 71292, 11/01/2024 02:39:05 11/01/19 25 11/01/2024 GERTRUDE IA* ammonia <9.0 umol/ L 9.0 - 30.0 Not Available [facility] (Lab) [address] [place] [address], [address], 11/01/2024 02:39:03 11/01/1911/01/2024 ORDER VENOU S BLOOD GAS* specimen type: VENOUS Not Available [facility] (Lab) [address] [place] [address], [address]74, 11/01/2024 02:24:02 11/01/19 25 11/01/2024 ORDER VENOU S BLOOD GAS* pH (venous) 7.28 7.38 - 7.46 low Not Available [facility] (Lab) [address] [place] [address], 04776, 11/01/2024 02:24:02 11/01/19 25 11/01/2024 ORDER VENOU S BLOOD GAS* pCO2 (venous) 37.0 mm_hg 41.0 - 51.0 low Not Available [facility] (Lab) [address] [place] [address], 79636, 11/01/2024 02:24:02 11/01/19 25 11/01/2024 ORDER VENOU S BLOOD GAS* HCO3 18 mmol/ L 22 - 26 low Not Available [facility] (Lab) [address] [place] [address], 56250, 11/01/2024 02:24:02 11/01/19 25 11/01/2024 ORDER VENOU S BLOOD GAS* TCO2 (venous) 19 mmol/ L 22 - 28 low Not Available [facility] (Lab) [address] [place] [address], 18487, 11/01/2024 02:24:02 11/01/19 25 11/01/2024 ORDER VENOU S BLOOD GAS* base excess (venous) -9 mmol/ L -2 - 3 low Not Available [facility] (Lab) [address] [place] [address], 85226, 11/01/2024 02:24:02 11/01/19 25 11/01/2024 CBC W/ DIFFE RENTI AL* WBC 23.93 TH/cm m 5.00 - 10.00 panic high { COMME NT: *Call ed-to [facility] { COMME NT: *Read -back -conf irmed Not Available [facility] (Lab) [address] [place] [address], 314[address], 11/01/2024 05:04:09 11/01/19 25 11/01/2024 CBC W/ DIFFE RENTI AL* neut % 72.8 % 40.0 - 80.0 Not Available [facility] (Lab) [address] [place] [address], 38758, 11/01/2024 05:04:09 11/01/19 25 11/01/2024 CBC W/ DIFFE RENTI AL* lymph % 19.1 % 10.0 - 50.0 Not Available [facility] (Lab) [address] [place] [address], 61273, 11/01/2024 05:04:09 11/01/1911/01/2024 CBC W/ DIFFE RENTI AL* mono % 5.5 % 2.0 - 12.0 Not Available [facility] (Lab) [address] [place] [address], 75543, 11/01/2024 05:04:09 11/01/19 25 11/01/2024 CBC W/ DIFFE RENTI AL* eos % 1.4 % 0.0 - 8.0 Not Available [facility] (Lab) [address] [place] [address], 79980, 11/01/2024 05:04:09 11/01/1911/01/2024 CBC W/ DIFFE RENTI AL* baso % 0.4 % 0.0 - 3.0 Not Available [facility] (Lab) [address] [place] [address], 18954, 11/01/2024 05:04:09 11/01/1911/01/2024 CBC W/ DIFFE RENTI AL* Ig % 0.8 % 0.0 - 1.1 Not Available [facility] (Lab) [address] [place] [address], 56124, 11/01/2024 05:04:11/01/19 25 11/01/2024 CBC W/ DIFFE RENTI AL* NRBC % 0.0 % 0.0 - 0.0 Not Available [facility] (Lab) [address] [place] [address], 21012, 11/01/2024 05:04:09 11/01/1911/01/2024 CBC W/ DIFFE RENTI AL* neut abs count 17.4 TH/cm m 1.6 - 8.4 high Not Available [facility] (Lab) [address] [place] [address], 88031, 11/01/2024 05:04:09 11/01/19 25 11/01/2024 CBC W/ DIFFE RENTI AL* lymph abs count 4.6 TH/cm m 1.5 - 4.0 high Not Available [facility] (Lab) [address] [place], [address], 11/01/2024 05:04:09 11/01/19 25 11/01/2024 CBC W/ DIFFE RENTI AL* mono abs count 1.3 TH/cm m 0.2 - 1.0 high Not Available [facility] (Lab) [address] [place], [address], 11/01/2024 05:04:09 11/01/19 25 11/01/2024 CBC W/ DIFFE RENTI AL* eos abs count 0.3 TH/cm m 0.0 - 0.5 Not Available [facility] (Lab) [address] [place] [address], 00938, 11/01/2024 05:04:09 11/01/19 25 11/01/2024 CBC W/ DIFFE RENTI AL* baso abs count 0.1 TH/cm m 0.0 - 0.2 Not Available [facility] (Lab) [address] [place] [address], 31400, 11/01/2024 05:04:09 11/01/19 25 11/01/2024 CBC W/ DIFFE RENTI AL* Ig abs count 0.2 TH/cm m 0.0 - 0.1 high Not Available [facility] (Lab) [address] [place] [address], 29782, 11/01/2024 05:04:09 11/01/19 25 11/01/2024 CBC W/ DIFFE RENTI AL* NRBC abs count 0.0 mil/c mm 0.0 - 0.0 Not Available [facility] (Lab) [address] [place] [address], 38741, 11/01/2024 05:04:09 11/01/19 25 11/01/2024 CBC W/ DIFFE RENTI AL* RBC 3.69 mil/c mm 3.90 - 5.40 low Not Available [facility] (Lab) [address] [place] [address], 39661, 11/01/2024 05:04:09 11/01/19 25 11/01/2024 CBC W/ DIFFE RENTI AL* hemoglobin 10.1 gm/dL 12.0 - 16.0 low Not Available [facility] (Lab) [address] [place] [address], 41286, 11/01/2024 05:04:09 11/01/19 25 11/01/2024 CBC W/ DIFFE RENTI AL* hematocrit 32 % 37 - 47 low Not Available [facility] (Lab) [address] [place] [address], 60074, 11/01/2024 05:04:09 11/01/1911/01/2024 CBC W/ DIFFE RENTI AL* MCV 88 fL 82 - 92 Not Available [facility] (Lab) [address] [place] [address], 08114, 11/01/2024 05:04:09 11/01/19 25 11/01/2024 CBC W/ DIFFE RENTI AL* MCH 27.4 pg 27.0 - 31.0 Not Available [facility] (Lab) [address] [place] [address], 63448, 11/01/2024 05:04:09 11/01/19 25 11/01/2024 CBC W/ DIFFE RENTI AL* MCHC 31.2 % 32.0 - 36.0 low Not Available [facility] (Lab) [address] [place] [address], 78605, 11/01/2024 05:04:09 11/01/19 25 11/01/2024 CBC W/ DIFFE RENTI AL* RDW-SD 51.9 fL 39.0 - 49.0 high Not Available [facility] (Lab) [address] [place] [address], 46880, 11/01/2024 05:04:09 11/01/19 25 11/01/2024 CBC W/ DIFFE RENTI AL* platelet count 502 TH/cm m 150 - 450 high -PREL IMINA RY-RE PORT: 11/01 0215 -JOSE L Not Available [facility] (Lab) [address] [place] [address], 38404, 11/01/2024 05:04:09 11/01/19 25 11/01/2024 D-DIM ER D-dimer 6.38 mg/L 0.19 - 0.50 high ( Stefany l refer ence Not Available [facility] (Lab) [address] [place] [address], 01970, 11/01/2024 02:52:04 11/01/19 25 11/01/2024 TROPO KEITH-I * troponin-I 0.039 NG/mL 0.000 - 0.034 high Not Available [facility] (Lab) [address] [place] [address], 04256, 11/01/2024 02:51:05 11/01/1911/01/2024 TROPO KEITH-I * specimen seq. ADM. Not Available [facility] (Lab) [address] [place] [address], 18086, 11/01/2024 02:51:05 11/01/19 25 11/01/2024 BNP (PRO- B NATRI URETI C PEPTI DE) nt-probnp 03207. 0 pg/mL 0.0 - 125 high Optim al NT-pr oBNP Cut-p oints for Acute CHF Diagn osis On Rule in Rule out <50 years 450 pg/mL All ages 300 pg 50-75 years 900 pg/mL >75 years 1800 pg/mL *The resul ts of this assay can be false ly lower ed due to the consu mptio n of Bioti n. Not Available [facility] (Lab) [address] [place] [address], 76508, 11/01/2024 02:51:04 11/01/19 25 11/01/2024 BASIC METAB OLIC PANEL (BMP) glucose 249 mg/dL 70 - 116 high Not Available [facility] (Lab) [address] [place], [address], 11/01/2024 02:40:04 11/01/19 25 11/01/2024 BASIC METAB OLIC PANEL (BMP) BUN 83 mg/dL 7 - 17 high Not Available [facility] (Lab) [address] [place], [address], 11/01/2024 02:40:04 11/01/19 25 11/01/2024 BASIC METAB OLIC PANEL (BMP) creatinine 7.17 mg/dL 0.52 - 1.04 high Not Available [facility] (Lab) [address] [place] [address], 45735, 11/01/2024 02:40:04 11/01/19 25 11/01/2024 BASIC METAB OLIC PANEL (BMP) sodium serum 145 mmol/ L 136 - 145 Not Available [facility] (Lab) [address] [place] [address], 49974, 11/01/2024 02:40:04 11/01/19 25 11/01/2024 BASIC METAB OLIC PANEL (BMP) potassium serum 4.9 mmol/ L 3.4 - 5.2 Not Available [facility] (Lab) [address] [place] [address], 31132, 11/01/2024 02:40:04 11/01/19 25 11/01/2024 BASIC METAB OLIC PANEL (BMP) chloride serum 111 mmol/ L 98 - 107 high Not Available [facility] (Lab) [address] [place] [address], [id number], 11/01/2024 02:40:04 11/01/19 25 11/01/2024 BASIC METAB OLIC PANEL (BMP) carbon dioxide (co2) 16 mmol/ L 22 - 30 low Not Available [facility] (Lab) [address] [place], [id number], 11/01/2024 02:40:04 11/01/19 25 11/01/2024 BASIC METAB OLIC PANEL (BMP) anion gap 17.4 mmol/ L Not Available [facility] (Lab) [address] [place] [address], [id number], 11/01/2024 02:40:04 11/01/19 25 11/01/2024 BASIC METAB OLIC PANEL (BMP) calcium serum 8.7 mg/dL 8.4 - 10.2 Not Available [facility] (Lab) [address] [place] [address], 406[address], 11/01/2024 02:40:04 11/01/19 25 11/01/2024 BASIC METAB OLIC PANEL (BMP) age 49 years Not Available [facility] (Lab) [address] [place] [address], 43163, 11/01/2024 02:40:04 11/01/19 25 11/01/2024 BASIC METAB OLIC PANEL (BMP) eGFR (non-afr.narayan r.) 6 mL/mi n Not Available [facility] (Lab) [address] [place] [address], 58541, 11/01/2024 02:40:04 11/01/19 25 11/01/2024 BASIC METAB OLIC PANEL (BMP) eGFR (afr-aliya n) 7 mL/mi n eGFR <60 ml/mi n for >=3 month s is indic ative of chron ic kidne y The eGFR calcu lated using the MDRD Study equat ion is valid ated non hospi taliz ed patie nts 18 to 70 years of age and is not rep patie nts less than 18 years of age. Not Available [facility] (Lab) [address] [place] [address], 48433, 11/01/2024 02:40:04 11/01/19 25 11/01/2024 CBC W/ DIFFE RENTI AL* WBC 23.93 TH/cm m 5.00 - 10.00 panic high { COMME NT: *Call ed-to [facility] { COMME NT: *Read -back -conf irmed Not Available [facility] (Lab) [address] [place] [address], 14807, 11/01/2024 02:16:02 11/01/19 25 11/01/2024 CBC W/ DIFFE RENTI AL* neut % 72.8 % 40.0 - 80.0 Not Available [facility] (Lab) [address] [place] [address], 03908, 11/01/2024 02:16:02 11/01/1911/01/2024 CBC W/ DIFFE RENTI AL* lymph % 19.1 % 10.0 - 50.0 Not Available [facility] (Lab) [address] [place] [address], 24266, 11/01/2024 02:16:02 11/01/1911/01/2024 CBC W/ DIFFE RENTI AL* mono % 5.5 % 2.0 - 12.0 Not Available [facility] (Lab) [address] [place] [address], 96986, 11/01/2024 02:16:02 11/01/19 25 11/01/2024 CBC W/ DIFFE RENTI AL* eos % 1.4 % 0.0 - 8.0 Not Available [facility] (Lab) [address] [place] [address], 84168, 11/01/2024 02:16:02 11/01/19 25 11/01/2024 CBC W/ DIFFE RENTI AL* baso % 0.4 % 0.0 - 3.0 Not Available [facility] (Lab) [address] [place] [address], 78194, 11/01/2024 02:16:02 11/01/19 25 11/01/2024 CBC W/ DIFFE RENTI AL* Ig % 0.8 % 0.0 - 1.1 Not Available [facility] (Lab) [address] [place], [address], 11/01/2024 02:16:02 11/01/19 25 11/01/2024 CBC W/ DIFFE RENTI AL* NRBC % 0.0 % 0.0 - 0.0 Not Available [facility] (Lab) [address] [place], [address], 11/01/2024 02:16:02 11/01/1911/01/2024 CBC W/ DIFFE RENTI AL* neut abs count 17.4 TH/cm m 1.6 - 8.4 high Not Available [facility] (Lab) [address] [place], [address], 11/01/2024 02:16:02 11/01/1911/01/2024 CBC W/ DIFFE RENTI AL* lymph abs count 4.6 TH/cm m 1.5 - 4.0 high Not Available [facility] (Lab) [address] [place], [address], 11/01/2024 02:16:02 11/01/19 25 11/01/2024 CBC W/ DIFFE RENTI AL* mono abs count 1.3 TH/cm m 0.2 - 1.0 high Not Available [facility] (Lab) [address] [place], [address], 11/01/2024 02:16:02 11/01/19 25 11/01/2024 CBC W/ DIFFE RENTI AL* eos abs count 0.3 TH/cm m 0.0 - 0.5 Not Available [facility] (Lab) [address] [place], [address], 11/01/2024 02:16:02 11/01/19 25 11/01/2024 CBC W/ DIFFE RENTI AL* baso abs count 0.1 TH/cm m 0.0 - 0.2 Not Available [facility] (Lab) [address] [place], [address], 11/01/2024 02:16:02 11/01/19 25 11/01/2024 CBC W/ DIFFE RENTI AL* Ig abs count 0.2 TH/cm m 0.0 - 0.1 high Not Available [facility] (Lab) [address] [place], [address], 11/01/2024 02:16:02 11/01/1911/01/2024 CBC W/ DIFFE RENTI AL* NRBC abs count 0.0 mil/c mm 0.0 - 0.0 Not Available [facility] (Lab) [address] [place] [address], 77422, 11/01/2024 02:16:02 11/01/1911/01/2024 CBC W/ DIFFE RENTI AL* RBC 3.69 mil/c mm 3.90 - 5.40 low Not Available [facility] (Lab) [address] [place] [address], 27[address], 11/01/2024 02:16:02 11/01/19 25 11/01/2024 CBC W/ DIFFE RENTI AL* hemoglobin 10.1 gm/dL 12.0 - 16.0 low Not Available [facility] (Lab) [address] [place] [address], 097[address], 11/01/2024 02:16:02 11/01/1911/01/2024 CBC W/ DIFFE RENTI AL* hematocrit 32 % 37 - 47 low Not Available [facility] (Lab) [address] [place] [address], 51671, 11/01/2024 02:16:02 11/01/1911/01/2024 CBC W/ DIFFE RENTI AL* MCV 88 fL 82 - 92 Not Available [facility] (Lab) [address] [place] [address], 38175, 11/01/2024 02:16:02 11/01/19 25 11/01/2024 CBC W/ DIFFE RENTI AL* MCH 27.4 pg 27.0 - 31.0 Not Available [facility] (Lab) [address] [place], [address], 11/01/2024 02:16:02 11/01/19 25 11/01/2024 CBC W/ DIFFE RENTI AL* MCHC 31.2 % 32.0 - 36.0 low Not Available [facility] (Lab) [address] [place], [address], 11/01/2024 02:16:02 11/01/19 25 11/01/2024 CBC W/ DIFFE RENTI AL* RDW-SD 51.9 fL 39.0 - 49.0 high Not Available [facility] (Lab) [address] [place], [address], 11/01/2024 02:16:02 11/01/19 25 11/01/2024 CBC W/ DIFFE RENTI AL* platelet count 502 TH/cm m 150 - 450 high -PREL IMINA RY-RE PORT: 11/01 0215 Not Available [facility] (Lab) [address] [place] [address], 559[address], 11/01/2024 02:16:02 11/02/19 25 11/02/2024 NOVA GLUCO SE FINGE R HEEL CAPIL LEON glucose cap 100 mg/dL 70 - 116 Not Available [facility] (Lab) [address] [place], [address], 11/02/2024 21:56:26 11/02/19 25 11/02/2024 NOVA GLUCO SE FINGE R HEEL CAPIL LEON glucose cap 100 mg/dL 70 - 116 Not Available [facility] (Lab) [address] [place] [address], 33105, 11/02/2024 21:56:25 11/02/19 25 11/02/2024 NOVA GLUCO SE FINGE R HEEL CAPIL LEON glucose cap 88 mg/dL 70 - 116 Not Available [facility] (Lab) [address] [place] [address], 29855, 11/02/2024 21:10:20 11/02/19 25 11/03/2024 TYPE AND CROSS 1 UNIT (INCL UDES SCREE N)* type and cross 1 unit (includes screen)* BLOOD TYPE AND ANTIB GUSTAVO SCREE N Not Available [facility] (Lab) [address] [place] [address], 15995, 11/03/2024 09:32:31 11/02/19 25 11/03/2024 TYPE AND CROSS 1 UNIT (INCL UDES SCREE N)* blood group O Not Available [facility] (Lab) [address] [place] [address], 83699, 11/03/2024 09:32:31 11/02/19 25 11/03/2024 TYPE AND CROSS 1 UNIT (INCL UDES SCREE N)* Rh (D) POSITI VE Not Available [facility] (Lab) [address] [place] [address], 19330, 11/03/2024 09:32:31 11/02/19 25 11/03/2024 TYPE AND CROSS 1 UNIT (INCL UDES SCREE N)* antibody screen NEGATI VE Valid thru date: 11/05.0 929.K K . time: 11/03.0 929.K K . Not Available [facility] (Lab) [address] [place] [address], 629[address], 11/03/2024 09:32:31 11/02/19 25 11/02/2024 HEMOG LOBIN AND HEMAT OCRIT * hemoglobin 8.1 gm/dL 12.0 - 16.0 low Not Available [facility] (Lab) [address] [place] [address], 32271, 11/02/2024 17:32:02 11/02/19 25 11/02/2024 HEMOG LOBIN AND HEMAT OCRIT * hematocrit 26 % 37 - 47 low Not Available [facility] (Lab) [address] [place], [address], 11/02/2024 17:32:02 11/02/19 25 11/02/2024 NOVA GLUCO SE FINGE R HEEL CAPIL LEON glucose cap 77 mg/dL 70 - 116 Not Available [facility] (Lab) [address] [place], [address], 11/02/2024 17:08:59 11/02/19 25 11/02/2024 NOVA GLUCO SE FINGE R HEEL CAPIL LEON glucose cap 313 mg/dL 70 - 116 high Not Available [facility] (Lab) [address] [place], [address], 11/02/2024 12:11:10 11/02/19 25 11/02/2024 NOVA GLUCO SE FINGE R HEEL CAPIL LEON glucose cap 265 mg/dL 70 - 116 high Not Available [facility] (Lab) [address] [place], [address], 11/02/2024 07:42:14 11/02/19 25 11/02/2024 CBC W/ DIFFE RENTI AL* WBC 16.89 TH/cm m 5.00 - 10.00 high Not Available [facility] (Lab) [address] [place], [address], 11/02/2024 08:14:19 11/02/19 25 11/02/2024 CBC W/ DIFFE RENTI AL* neut % 93.6 % 40.0 - 80.0 high Not Available [facility] (Lab) [address] [place] [address], 49973, 11/02/2024 08:14:19 01/16/11/02/2024 CBC W/ DIFFE RENTI AL* lymph % 3.1 % 10.0 - 50.0 low Not Available [facility] (Lab) [address] [place] [address], 16584, 11/02/2024 08:14:19 11/02/1911/02/2024 CBC W/ DIFFE RENTI AL* mono % 2.7 % 2.0 - 12.0 Not Available [facility] (Lab) [address] [place] [address], 01532, 11/02/2024 08:14:19 11/02/1911/02/2024 CBC W/ DIFFE RENTI AL* eos % 0.0 % 0.0 - 8.0 Not Available [facility] (Lab) [address] [place] [address], 81109, 11/02/2024 08:14:19 11/02/1911/02/2024 CBC W/ DIFFE RENTI AL* baso % 0.1 % 0.0 - 3.0 Not Available [facility] (Lab) [address] [place] [address], 53567, 11/02/2024 08:14:19 11/02/1911/02/2024 CBC W/ DIFFE RENTI AL* Ig % 0.5 % 0.0 - 1.1 Not Available [facility] (Lab) [address] [place] [address], 20101, 11/02/2024 08:14:19 11/02/1911/02/2024 CBC W/ DIFFE RENTI AL* NRBC % 0.0 % 0.0 - 0.0 Not Available [facility] (Lab) [address] [place] [address], 10869, 11/02/2024 08:14:19 11/02/19 25 11/02/2024 CBC W/ DIFFE RENTI AL* neut abs count 15.8 TH/cm m 1.6 - 8.4 high Not Available [facility] (Lab) [address] [place], [address], 11/02/2024 08:14:19 11/02/1911/02/2024 CBC W/ DIFFE RENTI AL* lymph abs count 0.5 TH/cm m 1.5 - 4.0 low Not Available [facility] (Lab) [address] [place] [address], 39482, 11/02/2024 08:14:19 11/02/19 25 11/02/2024 CBC W/ DIFFE RENTI AL* mono abs count 0.5 TH/cm m 0.2 - 1.0 Not Available [facility] (Lab) [address] [place] [address], 56253, 11/02/2024 08:14:19 11/02/1911/02/2024 CBC W/ DIFFE RENTI AL* eos abs count 0.0 TH/cm m 0.0 - 0.5 Not Available [facility] (Lab) [address] [place] [address], 26310, 11/02/2024 08:14:19 11/02/1911/02/2024 CBC W/ DIFFE RENTI AL* baso abs count 0.0 TH/cm m 0.0 - 0.2 Not Available [facility] (Lab) [address] [place] [address], 05584, 11/02/2024 08:14:19 11/02/1911/02/2024 CBC W/ DIFFE RENTI AL* Ig abs count 0.1 TH/cm m 0.0 - 0.1 Not Available [facility] (Lab) [address] [place] [address], 82933, 11/02/2024 08:14:19 11/02/19 25 11/02/2024 CBC W/ DIFFE RENTI AL* NRBC abs count 0.0 mil/c mm 0.0 - 0.0 Not Available [facility] (Lab) [address] [place], [address], 11/02/2024 08:14:19 11/02/1911/02/2024 CBC W/ DIFFE RENTI AL* RBC 2.81 mil/c mm 3.90 - 5.40 low Not Available [facility] (Lab) [address] [place] [address], 44473, 11/02/2024 08:14:19 11/02/19 25 11/02/2024 CBC W/ DIFFE RENTI AL* hemoglobin 7.6 gm/dL 12.0 - 16.0 low Not Available [facility] (Lab) [address] [place] [address], 28673, 11/02/2024 08:14:19 11/02/1911/02/2024 CBC W/ DIFFE RENTI AL* hematocrit 25 % 37 - 47 low Not Available [facility] (Lab) [address] [place] [address], 52029, 11/02/2024 08:14:19 11/02/1911/02/2024 CBC W/ DIFFE RENTI AL* MCV 87 fL 82 - 92 Not Available [facility] (Lab) [address] [place] [address], 91118, 11/02/2024 08:14:19 11/02/1911/02/2024 CBC W/ DIFFE RENTI AL* MCH 27.0 pg 27.0 - 31.0 Not Available [facility] (Lab) [address] [place] [address], 39330, 11/02/2024 08:14:19 11/02/1911/02/2024 CBC W/ DIFFE RENTI AL* MCHC 31.0 % 32.0 - 36.0 low Not Available [facility] (Lab) [address] [place] [address], 71293, 11/02/2024 08:14:19 11/02/19 25 11/02/2024 CBC W/ DIFFE RENTI AL* RDW-SD 51.3 fL 39.0 - 49.0 high Not Available [facility] (Lab) [address] [place] [address], 15776, 11/02/2024 08:14:19 11/02/19 25 11/02/2024 CBC W/ DIFFE RENTI AL* platelet count 341 TH/cm m 150 - 450 Not Available [facility] (Lab) [address] [place] [address], 38352, 11/02/2024 08:14:19 11/02/1911/02/2024 CBC W/ DIFFE RENTI AL* toxic gran 2+ -PREL IMINA RY-RE PORT: 11/02 0709 -JOSE L Not Available [facility] (Lab) [address] [place] [address], 92575, 11/02/2024 08:14:19 11/02/19 25 11/02/2024 BASIC METAB OLIC PANEL (BMP) glucose 301 mg/dL 70 - 116 high Not Available [facility] (Lab) [address] [place] [address], 33908, 11/02/2024 07:55:16 11/02/19 25 11/02/2024 BASIC METAB OLIC PANEL (BMP) BUN 103 mg/dL 7 - 17 high Not Available [facility] (Lab) [address] [place] [address], 15473, 11/02/2024 07:55:16 11/02/19 25 11/02/2024 BASIC METAB OLIC PANEL (BMP) creatinine 6.88 mg/dL 0.52 - 1.04 high Not Available [facility] (Lab) [address] [place] [address], 20745, 11/02/2024 07:55:16 11/02/19 25 11/02/2024 BASIC METAB OLIC PANEL (BMP) sodium serum 136 mmol/ L 136 - 145 Not Available [facility] (Lab) [address] [place], [address], 11/02/2024 07:55:16 11/02/19 25 11/02/2024 BASIC METAB OLIC PANEL (BMP) potassium serum 5.6 mmol/ L 3.4 - 5.2 high Not Available [facility] (Lab) [address] [place], [address], 11/02/2024 07:55:16 11/02/19 25 11/02/2024 BASIC METAB OLIC PANEL (BMP) chloride serum 107 mmol/ L 98 - 107 Not Available [facility] (Lab) [address] [place], [address], 11/02/2024 07:55:16 11/02/19 25 11/02/2024 BASIC METAB OLIC PANEL (BMP) carbon dioxide (co2) 18 mmol/ L 22 - 30 low Not Available [facility] (Lab) [address] [place], [address], 11/02/2024 07:55:16 11/02/19 25 11/02/2024 BASIC METAB OLIC PANEL (BMP) anion gap 11.5 mmol/ L Not Available [facility] (Lab) [address] [place], [address], 11/02/2024 07:55:16 11/02/19 25 11/02/2024 BASIC METAB OLIC PANEL (BMP) calcium serum 8.4 mg/dL 8.4 - 10.2 Not Available [facility] (Lab) [address] [place], [address], 11/02/2024 07:55:16 11/02/19 25 11/02/2024 BASIC METAB OLIC PANEL (BMP) age 49 years Not Available [facility] (Lab) [address] [place] [address], 74956, 11/02/2024 07:55:16 11/02/19 25 11/02/2024 BASIC METAB OLIC PANEL (BMP) eGFR (non-afr.narayan r.) 6 mL/mi n Not Available [facility] (Lab) [address] [place], [address], 11/02/2024 07:55:16 11/02/19 25 11/02/2024 BASIC METAB OLIC PANEL (BMP) eGFR (afr-aliya n) 8 mL/mi n eGFR <60 ml/mi n for >=3 month s is indic ative of chron ic kidne y The eGFR calcu lated using the MDRD Study equat ion is valid ated non hospi taliz ed patie nts 18 to 70 years of age and is not rep patie nts less than 18 years of age. Not Available [facility] (Lab) [address] [place], [address], 11/02/2024 07:55:16 11/02/1911/02/2024 CBC W/ DIFFE RENTI AL* WBC 16.89 TH/cm m 5.00 - 10.00 high Not Available [facility] (Lab) [address] [place], [address], 11/02/2024 07:12:12 11/02/19 25 11/02/2024 CBC W/ DIFFE RENTI AL* neut % 93.6 % 40.0 - 80.0 high Not Available [facility] (Lab) [address] [place], [address], 11/02/2024 07:12:12 11/02/19 25 11/02/2024 CBC W/ DIFFE RENTI AL* lymph % 3.1 % 10.0 - 50.0 low Not Available [facility] (Lab) [address] [place] [address], 80516, 11/02/2024 07:12:12 11/02/19 25 11/02/2024 CBC W/ DIFFE RENTI AL* mono % 2.7 % 2.0 - 12.0 Not Available [facility] (Lab) [address] [place] [address], 35099, 11/02/2024 07:12:12 11/02/1911/02/2024 CBC W/ DIFFE RENTI AL* eos % 0.0 % 0.0 - 8.0 Not Available [facility] (Lab) [address] [place] [address], 86592, 11/02/2024 07:12:12 11/02/1911/02/2024 CBC W/ DIFFE RENTI AL* baso % 0.1 % 0.0 - 3.0 Not Available [facility] (Lab) [address] [place] [address], 31896, 11/02/2024 07:12:12 11/02/1911/02/2024 CBC W/ DIFFE RENTI AL* Ig % 0.5 % 0.0 - 1.1 Not Available [facility] (Lab) [address] [place] [address], 78893, 11/02/2024 07:12:12 11/02/1911/02/2024 CBC W/ DIFFE RENTI AL* NRBC % 0.0 % 0.0 - 0.0 Not Available [facility] (Lab) [address] [place] [address], 90356, 11/02/2024 07:12:12 11/02/1911/02/2024 CBC W/ DIFFE RENTI AL* neut abs count 15.8 TH/cm m 1.6 - 8.4 high Not Available [facility] (Lab) [address] [place] [address], 79227, 11/02/2024 07:12:12 11/02/19 25 11/02/2024 CBC W/ DIFFE RENTI AL* lymph abs count 0.5 TH/cm m 1.5 - 4.0 low Not Available [facility] (Lab) [address] [place] [address], 63513, 11/02/2024 07:12:12 11/02/19 25 11/02/2024 CBC W/ DIFFE RENTI AL* mono abs count 0.5 TH/cm m 0.2 - 1.0 Not Available [facility] (Lab) [address] [place], [address], 11/02/2024 07:12:12 11/02/19 25 11/02/2024 CBC W/ DIFFE RENTI AL* eos abs count 0.0 TH/cm m 0.0 - 0.5 Not Available [facility] (Lab) [address] [place], [address], 11/02/2024 07:12:12 11/02/19 25 11/02/2024 CBC W/ DIFFE RENTI AL* baso abs count 0.0 TH/cm m 0.0 - 0.2 Not Available [facility] (Lab) [address] [place] [address], 76500, 11/02/2024 07:12:12 11/02/1911/02/2024 CBC W/ DIFFE RENTI AL* Ig abs count 0.1 TH/cm m 0.0 - 0.1 Not Available [facility] (Lab) [address] [place] [address], 90265, 11/02/2024 07:12:12 11/02/1911/02/2024 CBC W/ DIFFE RENTI AL* NRBC abs count 0.0 mil/c mm 0.0 - 0.0 Not Available [facility] (Lab) [address] [place], [address], 11/02/2024 07:12:12 11/02/19 25 11/02/2024 CBC W/ DIFFE RENTI AL* RBC 2.81 mil/c mm 3.90 - 5.40 low Not Available [facility] (Lab) [address] [place] [address], 28185, 11/02/2024 07:12:12 11/02/19 25 11/02/2024 CBC W/ DIFFE RENTI AL* hemoglobin 7.6 gm/dL 12.0 - 16.0 low Not Available [facility] (Lab) [address] [place] [address], 44960, 11/02/2024 07:12:12 11/02/19 25 11/02/2024 CBC W/ DIFFE RENTI AL* hematocrit 25 % 37 - 47 low Not Available [facility] (Lab) [address] [place] [address], 76720, 11/02/2024 07:12:12 11/02/1911/02/2024 CBC W/ DIFFE RENTI AL* MCV 87 fL 82 - 92 Not Available [facility] (Lab) [address] [place] [address], 71973, 11/02/2024 07:12:12 11/02/19 25 11/02/2024 CBC W/ DIFFE RENTI AL* MCH 27.0 pg 27.0 - 31.0 Not Available [facility] (Lab) [address] [place] [address], 96207, 11/02/2024 07:12:12 11/02/19 25 11/02/2024 CBC W/ DIFFE RENTI AL* MCHC 31.0 % 32.0 - 36.0 low Not Available [facility] (Lab) [address] [place] [address], 32925, 11/02/2024 07:12:12 11/02/19 25 11/02/2024 CBC W/ DIFFE RENTI AL* RDW-SD 51.3 fL 39.0 - 49.0 high Not Available [facility] (Lab) [address] [place] [address], 82698, 11/02/2024 07:12:12 11/02/19 25 11/02/2024 CBC W/ DIFFE RENTI AL* platelet count 341 TH/cm m 150 - 450 -PREL IMINA RY-RE PORT: 11/02 0709 Not Available [facility] (Lab) [address] [place] [address], 88910, 11/02/2024 07:12:12 11/03/19 25 11/03/2024 NOVA GLUCO SE FINGE R HEEL CAPIL LEON glucose cap 113 mg/dL 70 - 116 Not Available [facility] (Lab) [address] [place] [address], 88472, 11/03/2024 14:42:15 11/03/19 25 11/03/2024 BLOOD BANK REPOR T OF UNITS AVAIL ABLE* blood bank report of units available* BLOOD BANK UNITS AVAIL ABLE REPOR T JULIA URENA MUST BRING THIS TO THE LAB TO SIGN OUT BLOOD PRODU CTS Not Available [facility] (Lab) [address] [place] [address], 38574, 11/03/2024 09:35:34 11/03/19 25 11/03/2024 BLOOD BANK REPOR T OF UNITS AVAIL ABLE* component Packed RBCs Leukop oor Valid thru date 11/06.0 932.K K . time 11/03.0 932.K K . Patie nt Not Available [facility] (Lab) [address] [place] [address], 37255, 11/03/2024 09:35:34 11/03/19 25 11/03/2024 BLOOD BANK REPOR T OF UNITS AVAIL ABLE* blood group O Not Available [facility] (Lab) [address] [place] [address], 39626, 11/03/2024 09:35:34 11/03/19 25 11/03/2024 BLOOD BANK REPOR T OF UNITS AVAIL ABLE* Rh (D) POSITI VE Not Available [facility] (Lab) [address] [place] [address], 82491, 11/03/2024 09:35:34 11/03/19 25 11/03/2024 BLOOD BANK REPOR T OF UNITS AVAIL ABLE* antibody screen. NEGATI VE Notes : Unit # Type Expir ation Date LM11 (1) [id number] 11/03.0 932.K K . UP02 LM28 O POS 11/03.0 932.K K . UP02 LM43 11/20.0 932.K K . LM11 (2) UP02 LM28 UP02 LM43 LM11 (3) UP02 LM28 UP02 LM43 LM11 (4) UP02 LM28 UP02 LM43 LM00 Not Available [facility] (Lab) [address] [place] [address], 30207, 11/03/2024 09:35:34 11/03/1911/03/2024 NOVA GLUCO SE FINGE R HEEL CAPIL LEON glucose cap 69 mg/dL 70 - 116 low Not Available [facility] (Lab) [address] [place] [address], 59538, 11/03/2024 07:48:00 11/03/19 25 11/03/2024 BASIC METAB OLIC PANEL (BMP) glucose 77 mg/dL 70 - 116 Not Available [facility] (Lab) [address] [place] [address], 74015, 11/03/2024 07:51:00 11/03/19 25 11/03/2024 BASIC METAB OLIC PANEL (BMP) BUN 118 mg/dL 7 - 17 high Not Available [facility] (Lab) [address] [place] [address], 94451, 11/03/2024 07:51:00 11/03/19 25 11/03/2024 BASIC METAB OLIC PANEL (BMP) creatinine 7.13 mg/dL 0.52 - 1.04 high Not Available [facility] (Lab) [address] [place] [address], 665[address], 11/03/2024 07:51:00 11/03/19 25 11/03/2024 BASIC METAB OLIC PANEL (BMP) sodium serum 137 mmol/ L 136 - 145 Not Available [facility] (Lab) [address] [place], [address], 11/03/2024 07:51:00 11/03/19 25 11/03/2024 BASIC METAB OLIC PANEL (BMP) potassium serum 5.0 mmol/ L 3.4 - 5.2 Not Available [facility] (Lab) [address] [place], [id number], 11/03/2024 07:51:00 11/03/19 25 11/03/2024 BASIC METAB OLIC PANEL (BMP) chloride serum 108 mmol/ L 98 - 107 high Not Available [facility] (Lab) [address] [place] [address], [id number], 11/03/2024 07:51:00 11/03/19 25 11/03/2024 BASIC METAB OLIC PANEL (BMP) carbon dioxide (co2) 17 mmol/ L 22 - 30 low Not Available [facility] (Lab) [address] [place] [address], [id number], 11/03/2024 07:51:00 11/03/19 25 11/03/2024 BASIC METAB OLIC PANEL (BMP) anion gap 12.2 mmol/ L Not Available [facility] (Lab) [address] [place] [address], [id number], 11/03/2024 07:51:00 11/03/19 25 11/03/2024 BASIC METAB OLIC PANEL (BMP) calcium serum 8.2 mg/dL 8.4 - 10.2 low Not Available [facility] (Lab) [address] [place] [address], [id number], 11/03/2024 07:51:00 11/03/19 25 11/03/2024 BASIC METAB OLIC PANEL (BMP) age 49 years Not Available [facility] (Lab) [address] [place] [address], [id number], 11/03/2024 07:51:00 11/03/19 25 11/03/2024 BASIC METAB OLIC PANEL (BMP) eGFR (non-afr.narayan r.) 6 mL/mi n Not Available [facility] (Lab) [address] [place] [address], [address], 11/03/2024 07:51:00 11/03/19 25 11/03/2024 BASIC METAB OLIC PANEL (BMP) eGFR (afr-aliya n) 7 mL/mi n eGFR <60 ml/mi n for >=3 month s is indic ative of chron ic kidne y The eGFR calcu lated using the MDRD Study equat ion is valid ated non hospi taliz ed patie nts 18 to 70 years of age and is not rep patie nts less than 18 years of age. Not Available [facility] (Lab) [address] [place] [address], [address], 11/03/2024 07:51:00 11/03/19 25 11/03/2024 CBC W/ DIFFE RENTI AL* WBC 16.61 TH/cm m 5.00 - 10.00 high Not Available [facility] (Lab) [address] [place] [address], [address], 11/03/2024 06:59:57 11/03/19 25 11/03/2024 CBC W/ DIFFE RENTI AL* neut % 75.6 % 40.0 - 80.0 Not Available [facility] (Lab) [address] [place], [address], 11/03/2024 06:59:57 11/03/19 25 11/03/2024 CBC W/ DIFFE RENTI AL* lymph % 15.7 % 10.0 - 50.0 Not Available [facility] (Lab) [address] [place] [address], [address], 11/03/2024 06:59:57 11/03/19 25 11/03/2024 CBC W/ DIFFE RENTI AL* mono % 7.8 % 2.0 - 12.0 Not Available [facility] (Lab) [address] [place] [address], [address], 11/03/2024 06:59:57 11/03/19 25 11/03/2024 CBC W/ DIFFE RENTI AL* eos % 0.1 % 0.0 - 8.0 Not Available [facility] (Lab) [address] [place] [address], [address], 11/03/2024 06:59:57 11/03/19 25 11/03/2024 CBC W/ DIFFE RENTI AL* baso % 0.1 % 0.0 - 3.0 Not Available [facility] (Lab) [address] [place] [address], [address], 11/03/2024 06:59:57 11/03/19 25 11/03/2024 CBC W/ DIFFE RENTI AL* Ig % 0.7 % 0.0 - 1.1 Not Available [facility] (Lab) [address] [place] [address], [address], 11/03/2024 06:59:57 11/03/1911/03/2024 CBC W/ DIFFE RENTI AL* NRBC % 0.1 % 0.0 - 0.0 high Not Available [facility] (Lab) [address] [place] [address], [address], 11/03/2024 06:59:57 11/03/19 25 11/03/2024 CBC W/ DIFFE RENTI AL* neut abs count 12.6 TH/cm m 1.6 - 8.4 high Not Available [facility] (Lab) [address] [place] [address], 71[address], 11/03/2024 06:59:57 11/03/19 25 11/03/2024 CBC W/ DIFFE RENTI AL* lymph abs count 2.6 TH/cm m 1.5 - 4.0 Not Available [facility] (Lab) [address] [place], [address], 11/03/2024 06:59:57 11/03/19 25 11/03/2024 CBC W/ DIFFE RENTI AL* mono abs count 1.3 TH/cm m 0.2 - 1.0 high Not Available [facility] (Lab) [address] [place] [address], 277[address], 11/03/2024 06:59:57 11/03/19 25 11/03/2024 CBC W/ DIFFE RENTI AL* eos abs count 0.0 TH/cm m 0.0 - 0.5 Not Available [facility] (Lab) [address] [place] [address], [address], 11/03/2024 06:59:57 11/03/19 25 11/03/2024 CBC W/ DIFFE RENTI AL* baso abs count 0.0 TH/cm m 0.0 - 0.2 Not Available [facility] (Lab) [address] [place] [address], 68[address], 11/03/2024 06:59:57 11/03/19 25 11/03/2024 CBC W/ DIFFE RENTI AL* Ig abs count 0.1 TH/cm m 0.0 - 0.1 Not Available [facility] (Lab) [address] [place] [address], [address], 11/03/2024 06:59:57 11/03/19 25 11/03/2024 CBC W/ DIFFE RENTI AL* NRBC abs count 0.0 mil/c mm 0.0 - 0.0 Not Available [facility] (Lab) [address] [place] [address], [address], 11/03/2024 06:59:57 11/03/19 25 11/03/2024 CBC W/ DIFFE RENTI AL* RBC 2.76 mil/c mm 3.90 - 5.40 low Not Available [facility] (Lab) [address] [place] [address], [address], 11/03/2024 06:59:57 11/03/19 25 11/03/2024 CBC W/ DIFFE RENTI AL* hemoglobin 7.5 gm/dL 12.0 - 16.0 low Not Available [facility] (Lab) [address] [place] [address], [address], 11/03/2024 06:59:57 11/03/19 25 11/03/2024 CBC W/ DIFFE RENTI AL* hematocrit 24 % 37 - 47 critical low { COMME NT: *Call ed-to JESSY ZAZUETA SI IN MED SURG { COMME NT: *Read -back -conf irmed Not Available [facility] (Lab) [address] [place] [address], [address], 11/03/2024 06:59:57 11/03/19 25 11/03/2024 CBC W/ DIFFE RENTI AL* MCV 88 fL 82 - 92 Not Available [facility] (Lab) [address] [place] [address], [address], 11/03/2024 06:59:57 11/03/19 25 11/03/2024 CBC W/ DIFFE RENTI AL* MCH 27.2 pg 27.0 - 31.0 Not Available [facility] (Lab) [address] [place] [address], 89[address], 11/03/2024 06:59:57 11/03/19 25 11/03/2024 CBC W/ DIFFE RENTI AL* MCHC 30.9 % 32.0 - 36.0 low Not Available [facility] (Lab) [address] [place] [address], 8[address], 11/03/2024 06:59:57 11/03/19 25 11/03/2024 CBC W/ DIFFE RENTI AL* RDW-SD 51.8 fL 39.0 - 49.0 high Not Available [facility] (Lab) [address] [place] [address], 69[address], 11/03/2024 06:59:57 11/03/19 25 11/03/2024 CBC W/ DIFFE RENTI AL* platelet count 353 TH/cm m 150 - 450 Not Available [facility] (Lab) [address] [place] [address], 07284, 11/03/2024 06:59:57 11/08/19 25 11/08/2024 COMPL ETE BLOOD COUNT W/DIF F WBC 15.15 10_3/ uL 4.4-10 .8 high Not Available [address] [place], [address] 11/08/2024 17:07:11 11/08/19 25 11/08/2024 COMPL ETE BLOOD COUNT W/DIF F RBC 3.86 10_6/ uL 3.93-5 .22 low Not Available [address] [place], [address] 11/08/2024 17:07:11 11/08/19 25 11/08/2024 COMPL ETE BLOOD COUNT W/DIF F HGB 10.5 g/dL 11.2-1 5.7 low Not Available [address] [place], [address] 11/08/2024 17:07:11 11/08/19 25 11/08/2024 COMPL ETE BLOOD COUNT W/DIF F HCT 32.9 % 36.0-4 6.0 low Not Available [address] [place], [address] 11/08/2024 17:07:11 11/08/19 25 11/08/2024 COMPL ETE BLOOD COUNT W/DIF F MCV 85 fL 80-95 normal Not Available [employer] [address], [address] 11/08/2024 17:07:11 11/08/19 25 11/08/2024 COMPL ETE BLOOD COUNT W/DIF F MCH 27.2 pg 27.0-3 3.0 normal Not Available [address] [place], [address] 11/08/2024 17:07:11 11/08/19 25 11/08/2024 COMPL ETE BLOOD COUNT W/DIF F MCHC 31.9 % 32.0-3 6.0 low Not Available [address] [place], [address] 11/08/2024 17:07:11 11/08/19 25 11/08/2024 COMPL ETE BLOOD COUNT W/DIF F RDW 17.2 % 11.7-1 4.6 high Not Available [address] [place], [address] 11/08/2024 17:07:11 11/08/19 25 11/08/2024 COMPL ETE BLOOD COUNT W/DIF F platelet count 398 10_3/ uL 130-40 0 normal Not Available [address] [place], [address] 11/08/2024 17:07:11 11/08/19 25 11/08/2024 COMPL ETE BLOOD COUNT W/DIF F MPV 10.2 fL 8.0-11 .0 normal Not Available [address] [place], [address] 11/08/2024 17:07:11 11/08/19 25 11/08/2024 COMPL ETE BLOOD COUNT W/DIF F neutrophils % 85.4 % Not Available [address] [place], [address] 11/08/2024 17:07:11 11/08/19 25 11/08/2024 COMPL ETE BLOOD COUNT W/DIF F lymphocytes % 7.4 % Not Available [address] [place], [address] 11/08/2024 17:07:11 11/08/19 25 11/08/2024 COMPL ETE BLOOD COUNT W/DIF F monocytes % 6.5 % Not Available [address] [place], [address] 11/08/2024 17:07:11 11/08/19 25 11/08/2024 COMPL ETE BLOOD COUNT W/DIF F eosinophils % 0.3 % Not Available [address] [place], [address] 11/08/2024 17:07:11 11/08/19 25 11/08/2024 COMPL ETE BLOOD COUNT W/DIF F basophils % 0.1 % Not Available [address] [place], [address] 11/08/2024 17:07:11 11/08/19 25 11/08/2024 COMPL ETE BLOOD COUNT W/DIF F immature grans % 0.3 % Not Available [address] [place], [address] 11/08/2024 17:07:11 11/08/19 25 11/08/2024 COMPL ETE BLOOD COUNT W/DIF F nucleated RBC 0.0 % 0.0-0. 3 normal Not Available [address] [place], [address] 11/08/2024 17:07:11 11/08/19 25 11/08/2024 COMPL ETE BLOOD COUNT W/DIF F absolute neutrophil count 12.94 10_3/ uL 1.2-6. 7 high Not Available [address] [place], [address] 11/08/2024 17:07:11 11/08/19 25 11/08/2024 COMPL ETE BLOOD COUNT W/DIF F absolute lymphocyte count 1.12 10_3/ uL 1.2-3. 4 low Not Available [address] [place], [address] 11/08/2024 17:07:11 11/08/19 25 11/08/2024 COMPL ETE BLOOD COUNT W/DIF F absolute monocyte count 0.98 10_3/ uL 0.1-0. 8 high Not Available [address] [place], [address] 11/08/2024 17:07:11 11/08/19 25 11/08/2024 COMPL ETE BLOOD COUNT W/DIF F absolute eosinophil count 0.05 10_3/ uL 0.0-0. 7 normal Not Available [address] [place], [address] 11/08/2024 17:07:11 11/08/19 11/08/2024 COMPL ETE BLOOD COUNT W/DIF F absolute basophil count 0.02 10_3/ uL 0.0-0. 2 normal Not Available [address] [place], [address] 11/08/2024 17:07:11 11/08/19 25 11/08/2024 BASIC METAB OLIC PANEL calcium 8.2 mg/dL 8.5-10 .1 low Not Available [address] [place], [address] 11/08/2024 17:29:02 11/08/19 25 11/08/2024 BASIC METAB OLIC PANEL glucose 81 mg/dL 74-106 normal Not Available [facility] [address] [place], [address] 11/08/2024 17:29:02 11/08/1911/08/2024 BASIC METAB OLIC PANEL BUN 133 mg/dL 7-18 panic high Criti ting value repor curtis to and readb ack from DEIDRE MG RN ([place] [address]/08 by LAB.L AUT Not Available [address] [place], [address] 11/08/2024 17:29:02 11/08/19 25 11/08/2024 BASIC METAB OLIC PANEL creatinine 7.3 mg/dL 0.55-1 .02 panic high Criti ting value repor curtis to and readb ack from DEIDRE MG RN ([place] [address]/08 by LAB.L AUT Not Available [address] [place], [address] 11/08/2024 17:29:02 11/08/19 25 11/08/2024 BASIC METAB OLIC PANEL estimated GFR 6.36 mL/min /1.73M 2 The eGFR is calcu [...] young er-ag ed adult s. Not Available [address] [place], [address] 11/08/2024 17:29:02 11/08/19 25 11/08/2024 BASIC METAB OLIC PANEL sodium 141 mmol/ L 136-14 5 normal Not Available [address] [place], [address] 11/08/2024 17:29:02 11/08/19 25 11/08/2024 BASIC METAB OLIC PANEL potassium 4.8 mmol/ L 3.5-5. 1 normal Not Available [address] [place], [address] 11/08/2024 17:29:02 11/08/19 25 11/08/2024 BASIC METAB OLIC PANEL chloride 106 mmol/ L 98-107 normal Not Available [address] [place], [address] 11/08/2024 17:29:02 11/08/19 25 11/08/2024 BASIC METAB OLIC PANEL CO2 17.6 mmol/ L 21.0-3 2.0 low Not Available [address] [place], [address] 11/08/2024 17:29:02 11/08/19 25 11/08/2024 BASIC METAB OLIC PANEL anion gap 17.4 mmol/ L 3-11 high Not Available [address] [place], [address] 11/08/2024 17:29:02 10/07/20 24 10/07/2024 CT ABD pelvi s wo IV or oral contr ast [facility] [place] [id number] RADIOL OGY TRANSC RIPTIO N REPORT _ Patien t Name: ERROL RUTH MS MRN: Sex: : Age: [id number] F [id number] Accoun t: Access ion: Admit: StayTy pe: [id number] E Ordere d: Order ID: Submit curtis: Rosetta urena Provid er: 2023 14:14 [id number] CAROLINA MCINTOSH Comple curtis: Techno logist : [...] t. If you are a health care [facility] er and have any questi ons regard ing this report , please contac t the number below. For patien ts who have questi ons please contac t the health care self [facility] healthcare[facility] jim[facility]nez that reques curtis your imagin g first. Electr onical ly signed by: Júnoir Vick MD Radiol jimmy schaefer ([phone]), at 2023 3:51 PM INTERFACE [facility] (Lab) [address] [place] [address], [address], 10/07/2024 15:57:10 11/01/19 25 11/01/2024 xr chest tiffany ble or 1V [facility] RADIOL O[place] Jeff santamaria [id number] RADIOL OGY [facility] JOHNSONO N REPORT _ Patien t Name: FARAZ BUCKLEY,ERROL BYERS B MRN: Sex: : Age: [id number] F [age] Accoun t: Access ion: Admit: StayTy pe: [id number] 115 025 E Ammon d: Order ID: Submit curtis: Rosetta ng Provid er: 2024 01:40 [id number] ABBI JALLOH curtis: Techno logist : Result ed: 2024 02:03 LH 2024 02:13 _ EXAMIN ATION: XR CHEST PORTAB LE OR 1V CLINIC AL HISTOR Y: Reason for Chest: SOB Add'l Info: TECHNI QUE: 1 view of the chest . One image. COMPAR GHASSAN: Chest x-ray 3/4/20 17. FINDIN GS /IMPRE SSION: Evalua tion [...] and upper abdome n. Thank you for lettin g us partic ipate in the care of this patien t. If you are a health care provid er and have any questi ons regard ing this report , please contac t the number below. For patien ts who have questi ons please contac t the health care profes [facility] that reques curtis your imagin g first. Electr onical ly signed by: Lala Patel MD Radiol jimmy schaefer ([phone]), at 025 2:13 AM INTERFACE [facility] (Lab) [address] [place] [address], [address], 11/01/2024 02:19:02 11/02/19 25 11/01/2024 EKG order jude urena 12 lead [facility] Mark rosalio Jeff [address] EKG TRANSC RIPTIO N REPORT _ Accoun t: Access ion: Admit: StayTy pe: [id number] E/R Observ ation: Order ID: Submit curtis: Rosetta urena Provid er: 2024 02:16 [id number] JOVANYD ABBI MILLER _ [place] [id number] [facility] Test Date: 11-01 Pat Name: ABELINO RUTH MS Depart ment: Burak eugene ID: [id number] Room: Gender : Brit Munson emir: : [birth year] Reques curtis By: ABBI Reynoso Order Number : [id number] Charbel junior MD: Gentry Finney Measur ements Interv als Raymond Rate: 104 P: 76 NC: 176 QRS: -32 QRSD: 96 T: 0 QT: 370 QTc: 486 Interp retive Statem ents Sinus tachyc ardia Left axis deviat ion Compar ed to ECG 2022 05:17: 21 Left-a xis deviat ion now presen t Sinus rhythm no longer presen t Electr onical ly Signed On 025 8:26:2 3 EST by Gentry Finney INTERFACE [facility] (Lab) [address] [place] [address], [address], 11/02/2024 08:28:22 11/02/19 25 11/01/2024 CT [facility] T[facility] [place] Mchugh [address] RADIOL OGY TRANSC SUKHDEEP Schaefer REPORT _ Patimichael t Name: FARAZ BUCKLEYERROL Kaminski MRN: Sex: : Age: [id number] F [age] Accoun t: Access ion: Admit: StayTy pe: [id number] 115 [id number] I Ordere d: Order ID: Submit curtis: Rosetta urena Provid er: 2024 08:54 [id number] CLIVE BONNER curtis: Techno logist : Result [...] partic ipate in the care of this luis eugene. If you are a health care [facility] and have any questi ons regard ing this report , please contac t the number below. For patimichael ts who have questi ons please contac t the health care chicho jiménez that reques curtis your imagin g first. Electr onical ly signed by: Jose Lopez MD Radiol ogy Lebano n ([phone]), at 025 9:30 AM INTERFACE [facility] (Lab) [address] [place] [address], [address], 11/02/2024 09:37:40 11/02/19 25 11/02/2024 nm lung venti latio n and perfu ronan* [facility] RADIOL OGY [place] [address] RADIOL OGY TRANSC RIPTIO N REPORT _ Luis eugene Name: FARAZ BUCKLEY,ERROL Kaminski MRN: Sex: : Age: [id number] F [age] Accoun t: Access ion: Admit: StayTy pe: [id number] I Ammon d: Order ID: Submit curtis: Orderi ng Provid er: 2024 14:46 [id number] GARTH NORWOOD curtis: Techno logist : Result ed: 2024 08:57 HTP 2024 11:46 _ EXAMIN ATION: NM LUNG VENTIL ATION AND PERFUS ION CLINIC AL HISTOR Y: Reason NM Lung: SOB Add'l Info: COPD, KYM TECHNI QUE: Follow ing inhala tion of 1 mCi of techne tium-9 9m PYP aeroso l, ventil ation images of the lungs were obtain ed in the anteri or, computer software engineer ior, latera l and obliqu e projec [...] pulmon sea emboli sm. Thank you for gail junior us partic ipate in the care of this patien t. If you are a health care [facility] and have any questi ons regard ing this report , please contac t the number below. For patien ts who have questi ons please contac t the health care [facility] healthcare[facility] that reques curtis your imagin g first. Electr onical ly signed by: Júnior Vick MD Radiol jimmy schaefer ([phone]), at 025 11:46 AM [facility] (Lab) [address] [place] [address], [address], 11/02/2024 11:53:05 Result Notes None recorded. Problems Name Problem SNOMED Code Status Onset Date Resolution Date Notes Provider Name and Address Organization Details Recorded Time Complica tion due to diabetes mellitus 44858453 Active [address], [place], [address] , [facility]. 4 14:41:01 Gastroes ophageal reflux disease without esophagi tis 050271587 Active [address], [address] , [facility] 4 15:41:02 Sleep apnea 53814795 Active [address], [address] 4 15:41:33 Dyspnea on exertion 80603361 Active [address], [address] 16:02:44 Smoker 21018175 Active [address], [address] 16:03:44 Legal blindnes s 53083451 Active [address], [address] 16:04:00 Toenail thickene d 051249607 Active [address], [address] 16:07:44 Pruritic rash 30683455 Active [address], [address] 4 16:09:31 Retroper itoneal lymphade nopathy 393067707 Active 2023 burak MIRAMONTES RN null, [facility] 5 12:10:08 Renal failure syndrome 56756248 Active 2023 burak MIRAMONTES RN null, [facility] 5 12:10:41 Acute exacerba tion of chronic obstruct court pulmonar y disease 379049151 Active 2024 SHARON HENDERSON MD [address], [place], [address] , [facility] 5 15:11:03 Acute renal insuffic iency 162757558 Active 2024 SHARON HENDERSON MD [address], [place], [address] , [facility] 5 16:57:59 Chronic kidney disease stage 5 124449207 Active 2024 ULISES BARKER MD [address], [place], [address] , [facility] 5 11:20:54 Essentia l hyperten ronan 88170914 Active 2005 [facility] 4 09:53:15 Hyperlip idemia 42913189 Active 2005 [facility] 4 10:08:20 Uncompli cated moderate persiste nt asthma 334961521 Active 2005 [facility] 4 10:24:46 Severe obesity 70403258668 104 Active 2005 [facility] 4 10:22:09 Chronic hepatiti s C 416628594 Active 2003 pos viral load not treated [facility] 4 09:47:44 Pain of right shoulder joint 53723117065 472657 Active 2014 [facility] 4 10:17:43 Neuropat hy due to type 2 diabetes mellitus 98037045040 9106 Active 2014 uncontro lled, w/neurol o comps [facility] 4 10:17:28 Idiopath ic osteoart hritis 979223920 Active 2014 DJD, knees, bilatera l [facility] 4 10:08:49 Renal disorder due to type 2 diabetes mellitus 879421015 Active 2015 Diabetic nephropa thy [facility] 4 10:21:57 Derangem ent of right knee 65965031277 943243 Completed 201505/05/2016 Problem Code: M23.91; Problem Code Type: ICD-10; Not Available [facility] 3 04:12:16 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 74681896592 9104 Active 2015 (not billable after 6) [facility] 4 10:16:21 Cocaine abuse 75853731 Active 2016 episodic [facility] 4 09:50:22 Tobacco use cessatio n educatio n Active 2016 [facility] 4 10:22:41 Gallblad mark calculus with acute cholecys titis and no obstruct ion 202618737 Completed 201612/29/2016 Problem Code: K80.00; Problem Code Type: ICD-10; Not Available [facility] 3 04:12:17 Acute asthma 402201764 Completed 201604/13/2017 Problem Code: J45.901; Problem Code Type: ICD-10; Not Available [facility] 3 04:12:17 Cellulit is 463003416 Completed 201607/16/2017 Problem Code: L03.90; Problem Code Type: ICD-10; Not Available [facility] 3 04:12:17 Atopic dermatit is 44108914 Active 2017 [facility] 4 09:45:01 Impetigo 83450510 Completed 201705/03/2018 Problem Code: L01.00; Problem Code Type: ICD-10; Not Available [facility] 3 04:12:17 Screenin vernon ledesma Completed 201804/20/2019 Problem Code: Z12.31; Problem Code Type: ICD-10; Not Available [facility] 3 04:12:18 History of diabetic foot ulcer 99266859489 654812 Active 2018 [facility] 4 10:01:[address] pulmonar y disease 83471665 Active 2018 Asthma with COPD [facility] 4 09:48:31 Anemia 280499181 Active 2018 [facility] 4 09:39:01 Albumin level - finding 905135360 Active 2018 decrease d [facility] 4 09:37:16 Peripher al venous insuffic iency 66253464 Active 2018 Stasis ulcer [facility] 4 10:18:18 Cough 36898444 Completed 201908/22/2020 Problem Code: R05; Problem Code Type: ICD-10; Not Available [facility] 3 04:12:19 Endocrin e/metabo lic wayne junior Completed 202012/28/2020 Problem Code: Z13.29; Problem Code Type: ICD-10; Not Available [facility] 3 04:12:19 Counseli ng Active 2020 Immuniza tion counseli ng [facility] 4 09:51:24 Generali zed anxiety disorder 56271940 Active 2020 [facility] 4 10:01:19 Vomiting 790391015 Completed 202006/26/2021 Problem Code: R11.10; Problem Code Type: ICD-10; Not Available [facility] 3 04:12:19 Insect bite Completed 202007/09/2021 Not Available [facility] 3 04:12:20 Cirrhosi s of liver 53601202 Active 2022 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 with possible contribu tion of [place], decompen sated [facility] 4 09:49:47 Jaundice 42928906 Active 2022 [facility] 4 10:09:01 Muscle weakness 04715460 Active 2022 (general ized) [facility] 4 10:16:46 Opioid abuse 3626120 Completed 202209/28/2023 Problem Code: F11.10; Problem Code Type: ICD-10; Not Available [facility] 4 05:34:22 Lichen simplex chronicu s 35192646 Active 2022 Neuroder matitis [facility] 4 10:10:12 History of osteomye litis 784648981 Active 2022 [facility] 4 10:05:22 Opioid abuse 2395689 Completed 201807/14/2023 03/04/20 21 - Comments only - Sharon Henderson MD - offered scg for OBT but she states she plans to try to establis h tx thru [facility]. Not interest ed in Suboxone or Vivitrol ; might be interest ed in Sublocad e. Problem Code: F11.10; Problem Code Type: ICD-10; Not Available [facility] 3 04:12:22 Cholelit hiasis without obstruct ion 37260368 Completed 201512/22/2016 Problem Code: K80.20; Problem Code Type: ICD-10; Not Available [facility] 3 04:12:22 Candidia sis of vagina 08841484 Completed 201503/27/2016 Problem Code: B37.3; Problem Code Type: ICD-10; Not Available [facility] 3 04:12:23 Traumati c or non-trau matic injury 839632640 Completed 201607/14/2023 Problem Code: T14.8; Problem Code Type: ICD-10; Not Available [facility] 3 04:12:23 Disorder of teeth AND/OR supporti [facility] 909617999 Completed 201503/17/2016 Problem Code: K08.8; Problem Code Type: ICD-10; Not Available [facility] 3 04:12:23 Uncompli cated asthma 221232519 Completed 200507/14/2023 Problem Code: J45.909; Problem Code Type: ICD-10; Not Available [facility] 3 04:12:23 Hyperten sive disorder 22258283 Completed 200507/14/2023 Not Available [facility] 3 04:12:24 Scar conditio ns and fibrosis of skin 721713164 Completed 201604/23/2017 Problem Code: L90.5; Problem Code Type: ICD-10; Not Available [facility] 3 04:12:24 Human papillom a virus infectio n 696322204 Completed 201607/14/2023 Problem Code: B97.7; Problem Code Type: ICD-10; Not Available [facility] 3 04:12:24 Morbid obesity 556031965 Completed 200507/14/2023 Not Available [facility] 3 04:12:24 Foot ulcer due to type 2 diabetes mellitus 51554239150 00 Completed 201512/22/2016 01/20/20 19 - Comments [...] E11.621; Problem Code Type: ICD-10; Kristie rivera [facility] 4 09:59:50 Periapic al abscess 802320611 Completed 201403/17/2016 Problem Code: K04.7; Problem Code Type: ICD-10; Not Available [facility] 3 04:12:25 Drug abuse 24601809 Completed 200707/14/2023 Problem Code: 305.90; Problem Code Type: ICD-9; Not Available [facility] 3 04:12:25 Opioid dependen ce in remissio n 443430676 Completed 201807/14/2023 09/26/20 19 - Comments only [...] F11.21; Problem Code Type: ICD-10; Not Available [facility] 3 04:12:25 Gynecolo gic examinat ion Completed 201602/02/2017 Problem Code: Z01.419; Problem Code Type: ICD-10; Not Available [facility] 3 04:12:26 Nodule on toe 982277844 Completed 201605/25/2019 Not Available [facility] 3 04:12:26 Pain of right knee joint 23858332857 4100 Completed 201502/02/2017 Problem Code: M25.561; Problem Code Type: ICD-10; Not Available [facility] 3 04:12:26 Candidia sis of skin 31011237 Completed 201503/27/2016 Problem Code: B37.2; Problem Code Type: ICD-10; Not Available [facility] 3 04:12:26 Dysuria 40027399 Completed 201505/07/2016 Problem Code: R30.0; Problem Code Type: ICD-10; Not Available [facility] 3 04:12:27 Retinopa thy due to type 2 diabetes mellitus 603351821 Completed 201507/14/2023 Problem Code: E11.319; Problem Code Type: ICD-10; Not Available [facility] 3 04:12:27 Infectio n of skin and/or subcutan eous tissue 73338752 Completed 202204/30/2023 Problem Code: L08.89; Problem Code Type: ICD-10; Not Available [facility] 3 04:12:27 Tobacco dependen ce caused by cigarett es 53501633613 490343 Completed 200305/25/2019 Problem Code: F17.210; Problem Code Type: ICD-10; Not Available [facility] 3 04:12:27 Opioid dependen ce 49235842 Completed 200309/04/2015 05/25/20 19 - Comments only - Alexandro Grewal - Doing well in treatmen t at [facility]. Problem Code: F11.20; Problem Code Type: ICD-10; Not Available [facility] 3 04:12:28 Asthma 950446081 Completed 200507/14/2023 Not Available [facility] 3 04:12:28 Pain of joint of knee 2511353471 Completed 201407/14/2023 Problem Code: M25.569; Problem Code Type: ICD-10; Not Available [facility] 3 04:12:28 Cellulit is of right lower limb 07171667512 864134 Completed 201805/25/2019 Problem Code: L03.115; Problem Code Type: ICD-10; Not Available [facility] 3 04:12:28 Shoulder joint pain 205279599 Completed 201407/14/2023 Problem Code: 719.41; Problem Code Type: ICD-9; Not Available [facility] 3 04:12:29 Smoker 39298667 Completed 200307/14/[address], [place], [address] , [facility] 4 16:03:44 Chronic ulcer of foot 676063729 Completed 201601/05/2017 Problem Code: L97.529; Problem Code Type: ICD-10; Not Available [facility] 3 04:12:29 Type 2 diabetes mellitus without complica tion 567222742 Completed 200307/14/2023 Problem Code: 250.00; Problem Code Type: ICD-9; MD Shailesh [address], [facility] [address] , [facility] 4 14:43:16 Pain of left knee joint 78936453197 4107 Completed 201407/14/2023 Problem Code: M25.562; Problem Code Type: ICD-10; Not Available [facility] 04:12:30 Depressi ve disorder 39881786 Completed 200307/14/[address], [facility] [address] , [facility] 4 14:41:17 Hypergly cemia due to type 2 diabetes mellitus 74255082340 9109 Completed 200309/04/2015 Problem Code: E11.65; Problem Code Type: ICD-10; Not Available [facility] 3 04:12:30 Chest pain 71125547 Completed 201605/25/2019 Problem Code: R07.89; Problem Code Type: ICD-10; Not Available [facility] 3 04:12:31 Drug dependen ce 443582587 Completed 200307/14/2023 Problem Code: 304; Problem Code Type: ICD-9; Not Available [facility] 3 04:12:31 Cellulit is of toe of right foot 97814682204 557049 Completed 201505/11/2016 Problem Code: L03.031; Problem Code Type: ICD-10; Not Available [facility] 3 04:12:31 Osteoart hritis of knee 468212597 Completed 201402/02/2017 Problem Code: M17.9; Problem Code Type: ICD-10; Not Available [facility] 3 04:12:32 History of infectio us disease 634059949 Completed 201409/04/2015 Problem Code: Z86.19; Problem Code Type: ICD-10; Kristie rivera [facility] 4 10:05:01 Tobacco user 400616745 Completed 200508/06/2015 Not Available [facility] 3 04:12:32 Viral screenin g Completed 202209/10/2023 Problem Code: Z11.52; Problem Code Type: ICD-10; Not Available [facility] 4 05:34:15 Acute upper respirat ory infectio n 84417426 Completed 202208/18/2023 Problem Code: J06.9; Problem Code Type: ICD-10; Not Available [facility] 4 05:34:15 Type 2 diabetes mellitus without complica tion 451707711 Completed 202309/01/2024 Problem Code: 250.00; Problem Code Type: ICD-9; SHARON HENDERSON MD [address], [place], [address] [facility] 4 14:43:16 Asthma-c hronic obstruct court pulmonar y disease overlap syndrome 31691603807 040538 Active 2023 Kristie rivera [facility]. 4 09:39:21 Decompen sated cirrhosi s of liver 600489016 Active 2023 Child Bourgeois score 8/Class B as of 12/2022 Kristie rivera [facility]. 4 09:51:34 Visual impairme nt 923551324 Active 2023 [facility] 4 10:29:20 Thickene d nails 686863317 Active 2023 [facility] 4 10:22:14 Thickeni ng of skin 40323667 Completed 202309/01/2024 SHARON HENDERSON MD [address], [place], [address] [facility] 4 14:43:15 Acquired hammer toes of bilatera l feet 52801555017 384799 Active 2023 [facility] 4 09:37:02 History of amputati on of right foot 23144102836 415340 Active 2023 [facility] 4 10:01:25 Combined form of senile cataract 13188645 Active 2023 [facility] 4 09:50:32 Unintent ional weight loss 167206783 Active 2022 [facility] 4 10:24:46 History of amputati on of lesser toe 192439323 Active 2022 [facility] 4 09:38:36 History of intraven ous drug abuse 44671018184 590087 Active 2007 heroin [facility] 4 09:40:14 Left ventricu lar hypertro phy 85620044 Active 2015 mild concentr ic 3/16 echo (nl EF) [facility] 4 09:47:08 Follicul itis 56380203 Active 2022 [facility] 4 09:52:22 Peripher al edema 570749619 Active 2014 [facility] 4 09:52:55 Mild persiste nt asthma 011607150 Active 2022 with acute exacerba tion [facility] 4 09:54:28 Family history of Alzheime r's disease 599279161 Active 2018 mother age 50, maternal grandmot her, maternal aunts and uncles; no genetic testing done [facility] 4 09:56:26 Diabetic foot ulcer 972952527 Active 2022 [facility] 4 09:59:46 History of cholecys tectomy 104497007 Active 2016 laparosc opic, 01/01 [facility] 4 10:00:55 History of human papillom a virus infectio n 66989493181 9102 Active 01/01; nl pap; neg colpo 04/03 incl ECC; neg pap 11/05; 5 yr f/u [facility] 4 10:04:56 History of opioid abuse 12919787787 9100 Active 2018 Hx of opioid abuse -- Saveda resumed suboxone 09/07 [facility] 4 10:08:01 Edentpriyanko 170293685 Active 2015 s/p complete extr due to advanced caries 03/02 [facility] 4 10:13:37 Major depressi ve disorder 866322101 Active 2022 Major depressi on [facility] 4 10:15:28 Traumati c partial amputati on of right great toe Active 2018 initial encounte r Kristie Peters [facility], [facility] 4 10:23:54 Stasis dermatit is 15996470 Active 2021 Venous stasis dermatit is Kristie Peters [facility], [facility] 4 10:30:44 Diabetes mellitus 60134294 Completed 202309/01/[address], [place], [address] , [facility] 4 14:43:16 Type 2 diabetes mellitus 54687341 Completed 202309/01/[address], [place], [address] , [facility] 4 14:43:16 Obesity 203984510 Active [address], [place], [address] , [facility] 4 20:58:25 Hemoglob in A1c greater than 9% indicati ng poor diabetic control 69400128520 4104 Completed 202309/01/[address], [place], [address] , [facility] 14:43:16 Problem Notes None recorded. Procedures Surgical History None recorded. Imaging Results Imaging Date Name Status LastModified by Organiz ation Details LastModified Time 10/07/2024 CT ABD pelvis wo IV or oral contrast completed [facility] (Lab) [address] [place] [address], [address], 10/07/2024 15:57:10 11/01/2024 xr chest portable or 1V completed [facility] ([facility]) [address] [place] [address], [address], 11/01/2024 02:19:02 11/01/2024 EKG order tracing 12 lead completed [facility] ([facility]) [address] [place], [address], 11/02/2024 08:28:22 11/01/2024 CT chest wo contrast completed [facility] ([facility]) [address] [place], [address], 11/02/2024 09:37:40 11/02/2024 nm lung ventilation and perfusion* completed [facility] ([facility]) [address] [place], [address], 11/02/2024 11:53:05 Procedure Notes None recorded. Medical Equipment None Reported. Allergies Allergen ID Allergen Name Allergen Category Reaction Reaction Severity Criticality Documentation Date Start Date Code Code System Note Provider Name and Address Organization Details Recorded Time 45765 lisinopri l medicatio n cough moderate Not available 08/27/20232009 81972 RxNorm [facility] 4 10:31:16 07161 metoprolo l succinate medicatio n other moderate Not available 08/27/20232018 45288 4 RxNorm No react ion enter ed [facility] 4 10:31:36 98721 codeine medicatio n hives moderate Not available 08/27/20232002 2670 RxNorm [facility] 4 10:31:10 Medications Name Sig [...] topical powder Apply three times a day 05/15/ 2018 05/18 /2021 completed Not Available Not [...] Stockings Dx: peripher al edema 11/04 completed [facility] Not Available Not Available Not Available gabapenti n 300 mg tablet 3 cap three times daily 06/16 completed Not Available Not Available Not Available albuterol 2INH four times daily 07/31 completed Not Available Not Available Not Available Nystatin (Topical) cream apply BID 05/28 completed Not Available Not Available Not Available Nebulizer Dx: Asthma J45.40 Smoking Z71.6 2018 active Te[facility] in [facility] Not Available Not Available Not Available Humalog [...] Updated DateTime 4 160.02 cm 35.5 kg/m2 93808.9 1 g 97.5 [degF] 94 % 94 % 88 /min 168 mm[Hg] 98 mm[Hg] ARMIDA HIRSCH MA [facility], [facility] 4 15:02:01 Date Recorded Body height Body mass index (BMI) Body weight Body temperature Oxygen saturation Oxygen saturation in Arterial blood by Pulse oximetry Heart rate Systolic blood pressure Diastolic blood pressure Provider Name and Address Organization Details Last Updated DateTime 4 155.58 cm 35.5 kg/m2 69622.3 9 g 97.8 [degF] 96 % 96 % 79 /min 126 mm[Hg] 72 mm[Hg] ROSIBEL SALGADO RN [facility] 4 13:24:33 Date Recorded Body height Body mass index (BMI) Body weight Body temperature Oxygen saturation Oxygen saturation in Arterial blood by Pulse oximetry Heart rate Systolic blood pressure Diastolic blood pressure Provider Name and Address Organization Details Last Updated DateTime 5 155.58 cm 36.9 kg/m2 15885.7 g 97.7 [degF] 91 % 91 % 104 /min 178 mm[Hg] 82 mm[Hg] ARMIDA HIRSCH MA [facility] 5 14:46:25 Date Recorded Body height Provider Name an d Address Organization Details Last Updated DateTime 10/19/2024 155.58 cm Alexa Sorto LPN [facility], [facility] 10/19/2024 15:34:50 Date Recorded Systolic blood pressure Diastolic blood pressure Provider Name and Address Organization Details Last Updated DateTime 10/19/2024 158 mm[Hg] 82 mm[Hg] SHARON HENDERSON MD [address], [place], [address], [facility] 10/19/2024 16:50:46 Date Recorded Body height Body temperature Oxygen saturation Oxygen saturation in Arterial blood by Pulse oximetry Heart rate Systolic blood pressure Diastolic blood pressure Provider Name and Address Organization Details Last Updated DateTime 5 155.58 cm 97.7 [degF] 97 % 97 % 104 /min 146 mm[Hg] 72 mm[Hg] Shani Miner MA [facility], [facility]. 15:17:35 Social History Question Answer Notes LastModified by Organizat ion Details LastModified Time Tobacco Smoking Status Current Every Day Smoker SURJIT KITCHEN LPN null, [place] - [facility], [facility]. 11/03/2023 13:42:55 Date Of Most Recent HSA 10/06/2024 [email or web address] Information not available 10/06/2024 Would You Say That, In General, Your Health Is Poor [email or web address] Information not available 10/06/2024 Women Aged 18-50 - Would You Like To Become In The Next Year? (Female Patients Only) No [email or web address] Information not available 10/06/2024 How Often Does Anyone, Including Family, Physically Hurt You? Never [email or web address] Information not available 10/06/2024 How Often Does Anyone, Including Family, Insult Or Talk Down To You? Never [email or web address] Information no t available 10/06/2024 How Often Does Anyone, Including Family, Threaten You With Harm? Never [email or web address] Information not available 10/06/2024 How Often Does Anyone, Including Family, Scream Or Curse At You? Never [email or web address] Information not available 10/06/2024 Within The Past 12 Months, You Worried That Your Food Would Run Out Before You Got Money To Buy More. Sometimes True [email or web address] Information not available 10/06/2024 Within The Past 12 Months, The Food You Bought Just Didn't Last And You Didn't Have Money To Get More. Sometimes True [email or web address] Information not available 10/06/2024 How Hard Is It For You To Pay For The Very Basics Like Food, Housing, Medical Care, And Heating? Would You Say It Is: Very Hard [email or web address] Information not available 10/06/2024 In The Past 12 Months, Has Lack Of Reliable Transportation Kept You From Medical Appointments, Meetings, Work Or From Getting Things Needed For Daily Living? Yes [email or web address] Information not available 10/06/2024 What Is Your Housing Situation Today? I Have Housing. [email or web address] Information not available 10/06/2024 How Often In The Past Year Have You Used Marijuana (including Smoking, Vaping, Dabbing, Or Edibles)? Never [email or web address] Information not available 10/06/2024 How Often In The Past Year Have You Used Prescription Medications That Were Not Prescribed To You? Never [email or web address] Information not available 10/06/2024 How Often In The Past Year Have You Taken Your Own Prescription Medication More Than The Way It Was Prescribed Or For Different Reasons Than Its Intended Purpose? Never Information no t available 10/06/2024 How Often In The Past Year Have You Used Other Drugs (for Example, Heroin, Cocaine, Meth, Salvia, Inhalants)? Never [email or web address] Information not available 10/06/2024 Have You Ever Used IV Drugs? Yes 10 Years Ago [email or web address] Information not available 10/06/2024 What Matters Most To You? Vision, Overall Health Information not available 10/06/2024 During The Past Four Weeks Has Your Physical And Emotional Health Limited Your Social Activities With Family And Friends, Neighbors, Or Groups? Moderately [email or web address] Information not available 10/06/2024 During The Past Four Weeks, Was Someone Available To Help You If You Needed And Wanted Help? (For Example, If You [place] Very Nervous, Lonely, Or Blue; Got Sick And Had To Stay In Bed; Needed Someone To Talk To; Needed Help With Daily Chores; Or Needed Help Just Taking Care Of Yourself.) Yes- Quite A Bit Information not available 10/06/2024 During The Past Four Weeks, What Was The Hardest Physical Activity You Could Do For At Least 2 Minutes? Heavy [email or web address] Information not available 10/06/2024 Can You Get To Places Out Of Walking Distance Without Help? (For Example, Can You Travel Alone On Buses Or Taxis, Or Drive Your Own Car?) No [email or web address] Information not available 10/06/2024 Can You Go Shopping For Groceries Or Clothes Without Someone? s Help? No [email or web address] Information not available 10/06/2024 Can You Prepare Your Own Meals? No [email or web address] Information not available 10/06/2024 Can You Do Your Housework Without Help? Yes Information not available 10/06/2024 Because Of Any Health Problems, Do You Need The Help Of Another Person With Your Personal Care Needs Such As Eating, Bathing, Dressing, Or Getting Around The House? Yes [email or web address] Information not available 10/06/2024 Can You Handle Your Own Money Without Help? Yes [email or web address] Information not available 10/06/2024 Are You Having Difficulties Driving Your Car? Not Applicable- I Do Not Use A Car [email or web address] Information not available 10/06/2024 How Often During The Past Four Weeks Have You Been Bothered By Any Of The Following Problems? Falling Or Dizzy When Standing Up? Often [email or web address] Information not available 10/06/2024 Sexual Problems? Never Informat ion not available 10/06/2024 Trouble Eating Well? Never Information not available 10/06/2024 Teeth Or Denture Problems? Always [email or web address] Information not available 10/06/2024 Problems Using The Telephone? Always Can't See Phone [email or web address] Information not available 10/06/2024 Tiredness Or Fatigue? Always [email or web address] Information not available 10/06/2024 Have You Had 2 Or More Falls Or Sustained An Injury With A Fall In The Last Year? Yes [email or web address] Information not available 10/06/2024 Do You Have Difficulty With Walking Or Balance? Yes [email or web address] Information not available 10/06/2024 Do You Currently Use A Hearing Device? No Information not available 10/06/2024 Do You Currently Have Any Trouble With Your Vision? Yes [email or web address] Information no t available 10/06/2024 Do You Exercise For About 20 Minutes Three Or More Days A Week? No- I Usually Do Not Exercise Much [email or web address] Information not available 10/06/2024 Are There Any Safety Concerns In Your Home (see Attached CDC Pamphlet)? Yes Stairs, Cooking [email or web address] Information not available 10/06/2024 How Often Do You Have Trouble Taking Medicines The Way You Have Been Told To Take Them? Sometimes I Take Them As Prescribed [email or web address] Information not available 10/06/2024 How Confident Are You That You Can Control And Manage Most Of Your Health Problems? Somewhat Confident [email or web address] Information not available 10/06/2024 Do You Currently Have Any Difficulty With Your Hearing? No [email or web address] Information not available 10/06/2024 Date Of Most Recent SBINS 10/06/2024 [email or web address] Information not available 10/06/2024 What Was The [...] Cessation Counseling Been Provided? Yes Pt Declines. [email or web address] Information not available 10/06/2024 On What Date Was Tobacco Cessation Counseling Provided? 10/06/2024 Pt Just Not Ready Yet. [email or web address] Information not available 10/06/2024 How Many Years [...] Family history of diabetes mellitus type 1 Not available 2022 03:50:26 Notes:*Problem: Mother: chichi [...] anh-sucrose, 30 mcg/0.3 mL 4 completed ARMIDA HIRSCH, MA null, [facility] 09/01/2024 18:38:23 Influenza, split virus, trivalent, PF 4 completed SHARON HENDERSON MD [address], [place], [address], [facility] 09/01/2024 16:09:15 Td (adult), 5 Lf tetanus toxoid, preservative free, adsorbed 7 completed Not Available [facility] 08/27/2023 06:21:08 Tdap 7 completed Not Available [facility] 08/27/2023 06:21:08 Novel [id number], all formulations 9 completed Not Available [facility] 08/27/2023 06:21:08 Td(adult) unspecified formulation 1 completed Not Available [facility] 08/27/2023 06:21:08 Influenza, split virus, trivalent, preservative 6 completed Not Available [facility] 08/27/2023 06:21:08 Influenza, split virus, quadrivalent, PF 2 completed Not Available [facility] 08/27/2023 06:21:08 Influenza, split virus, quadrivalent, PF 3 completed Not Available [facility] 08/27/2023 06:21:08 Influenza, split virus, quadrivalent, preservative 8 completed Not Available [facility] 08/27/2023 06:21:09 COVID-19, mRNA, LNP-S, PF, 100 mcg/0.5mL dose or 50 mcg/0.25mL dose 2 completed Not Available [facility] 08/27/2023 06:21:09 COVID-19 vaccine, vector-nr, rS-Ad26, PF, 0.5 mL 1 completed Not Available [facility] 08/27/2023 06:21:09 COVID-19, mRNA, LNP-S, bivalent, PF, 30 mcg/0.3 mL dose 3 completed Not Available [facility] 08/27/2023 06:21:09 pneumococcal polysaccharide PPV23 0 completed Not Available [facility] 08/27/2023 06:21:09 influenza, unspecified formulation 9 completed Not Available [facility] 08/27/2023 06:21:09 influenza, unspecified formulation 8 completed Not Available [facility] 08/27/2023 06:21:09 influenza, unspecified formulation 7 completed Not Available [facility] 08/27/2023 06:21:09 Influenza, split virus, quadrivalent, PF 3 completed Not Available [facility] 10/29/2023 05:31:09 Pneumococcal conjugate PCV20, polysaccharide [id number] conjugate, adjuvant, PF 3 completed Not Available [facility] 10/29/2023 05:31:11 Past Encounters Encounter ID Performer Location Encounter Start Date Encounter Closed Date Diagnosis/Indication Diagnosis SNOMED-CT Code Diagnosis ICD10 Code Diagnosis Note [id number] [address] [address] 11/03/2023 13:24:44 11/03/2023 17:12:31 Asthma-chronic obstructive pulmonary disease overlap syndrome [id number] J44.9 Counseled pt on Breo Ellipta and Duelaira being same medication s. Pt prefers Breo. 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 Chronic hepatitis C 1283 10778 B18.2 Pt states she will she GI [...] treatment here. Uncomplica curtis moderate persistent asthma 318510657 J45.40 Fair control, reviewed absence of benefit of co-use of Breo and Dulera, patient prefers Breo so will renew this as well as albuterol. Patient precontemp lative regarding smoking cessation. Decompensa curtis cirrhosis of liver 865409711 K74.60 See above. No evidence of ascites, varices or jaundice. Essential hypertension 81390836 I10 Adequate control, continue current management . Insomnia 880543398 G47.0 0 Visual impairment 273357 003 H54.7 Pt reports last eye check 2019. Sylvia junior severe visual impairment today, rec urgent referral to ophthalmol jimmy. Pt left prior to funduscopi c alyseal [id number] SHARON HENDERSON MD [address] [address] 03/06/2024 10:29:25 03/06/2024 12:06:45 Pre-surgery evaluation [id number] Z01.818 Patient presents for pre-op evaluation . The patient is a suitable candidate for the planned procedure. A1C is elevated (see below) but not dangerousl y so, patient not currently at risk of hyperglyce martha coma. The patient has been cleared for surgery after the preprocedu ral examinatio n. 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 Type 2 ana betes mellitus 90128072 E11.8 The patient has experience d a [...] 40 u bid.. A follow-up with a community educator is recommende d to provide additional support in managing the patient's blood sugar levels. Obesity 291729213 E66.9 The patient has gained weight due to decreased activity levels and increased food intake. The patient will work on regaining control of their diet and activity levels, and a follow-up visit in three months will assess the patient's progress in managing their weight. Neuropathy due to type 2 diabetes mellitus [id number] 68448 E11.40 With recurrent callus right foot that is causing pain. Will refer back to Dr. Oliver. [id number] SHARON HENDERSON MD [address] [phone] 09/01/2024 14:30:48 09/01/2024 15:49:47 Asthma-chronic obstructive pulmonary disease overlap syndrome [id number] 6028306 J44.9 Recommende d switch from Breo to Trelegy for LABA/LAMA coverage as well as ICS. Essential hypertension 51815779 I10 Not well-contr olled related to being out of medication for 2 weeks, meds renewed, follow-up 1 month. Anxiety 18527050 F41.9 Neuropathy due to type 2 diabetes mellitus 0717006332 40241 E11.40 With recurrent callus right foot that is causing pain. Will refer back to Dr. Oliver. Hyperlipidemia 20086075 E78.5 Gastroesop hageal reflux disease without esophagitis 815147465 K21.9 Continue daily PPI. Sleep apnea 74414175 G47 .30 Central/op ioid mediated versus OLVIN. Advised sleep eval. Referral made. History of fall 89236946 9 Z91.81 Continue use of assistive device such as cane. Keep follow-up with eye doctor. Active or passive immunization 851088648 Z23 Dyspnea on exertion 6084 5006 R06.09 Could be due to worsening COPD, untreated sleep apnea might be contributi ng, CHF also certainly a possibilit y. Will urge echo and cards eval at follow-up if not significan tly improved with change in inhaler. Encouraged continued efforts at smoking cessation. Smoker 47567581 F17.210 Tobacco us e cessation education 703749900 Z71.6 She has cut back to half pack per day, encouraged continued work toward complete cessation. Legal blindness 78367364 H54.8 Will ask care coordinato r to connect her with [facility] for assistive technologi es. Food insecurity 23742725 3 Z59.41 Will ask care coordinato r to assist with choices for care and Meals on Wheels applicatio ns. Chronic hepatitis C 1283 19189 B18.2 Last Child Bourgeois Score calculated as 8 with most recent lab values (not all of which from same time) = Child Class B, qualifying as decompensa curtis cirrhosis. Pt is open to treating HepC with antivirals , has not kept GI consult referrals, open to updating labs at next visit and considerin g treatment through this office. Toenail thickened 783443 000 R23.8 Needs to see her foreign language stenographer for toenail and general foot care. Will place referral to facilitate earlier appointmen t. Pruritic rash 78511123 L 28.2 Mild folliculit is versus neuroderma titis upper back. Advised topical antibiotic , avoid scratching , reevaluate at next visit [id number] ROSIBEL SALGADO RN [address] [address] 10/06/2024 12:53:21 10/06/2024 14:03:34 Adult health examination 119856477 Z00.00 Muscle weakness 43631367 M62.81 Decompensa curtis cirrhosis of liver 753865986 K74.60 See above. No evidence of ascites, varices or jaundice. Hyperlipidemia 34533778 E78.5 Chronic hepatitis C 1283 81527 B18.2 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 8752117872 2656834 J44.9 Recommende d switch from Breo to Trelegy for LABA/LAMA coverage as well as ICS. 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 96180728 E11.8 [id number] October [address] [address] 10/19/2024 14:35:21 10/19/2024 17:05:19 Acute exacerbation of chronic obstructive pulmonary disease 467084975 J44.1 Will treat with short course of prednisone , 40 mg/day x 5 days. In-house supply dispensed given her difficulty getting to and obtaining medication s from the pharmacy. She hopes to be able to pick out hand at least Trelegy tomorrow from the pharmacy. I reviewed with her availabili ty of a funds to our office to help with co-pays if needed. Renal fail ure syndrome 17932835 N19 Acute on chronic with no significan t improvemen t in creatinine during hospitaliz ation. Reviewed with Dr.Onuigbo ESPINOZA nephrology . Will obtain screening labs including [...] lung disease. Decompensa curtis cirrhosis of liver 793448983 K74.60 Will check coag studies, had recent liver function tests, will forward all to nephrology . Chronic hepatitis C 1283 74282 B18.2 High viral load, she was hoping to start treatment but is too ill at this time. Acute randa l insufficiency 380292659 N28.9 Repeat BMP drawn today. Will schedule weekly BMPs through home health to keep close eye on creatinine and GFR. Essential hypertension 05516046 I10 Blood pressure higher since discontinu ation of losartan HCTZ. Will increase amlodipine from 5 to 10 mg/day. 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 41754182 E11.8 A1c was 6.6 during recent hospital stay and blood sugars have been remaining under 200 off all insulin and oral hypoglycem ics recently. Will likely need resumption of some degree of insulin or possibly an oral agent, will monitor. She will continue checking her sugars 2-3 times per day. Tobacco [facility] e cessation education 493381415 Z71.6 Oziel mosley she continues to smoke and has been unable to quit. History of opioid abuse 3273774165 71472 F11.11 Stable on methadone but with ongoing cocaine use. Retroperit antonio lymphadenopathy 463357976 R59.0 Reactive etiology favored per radiologis t, no concerning masses or other signs of malignancy on recent noncontras t abdominal pelvis CT. [id number] DOTTIE COFFMAN LPN [address] [phone] 10/20/2024 13:00:57 10/20/2024 14:00:30 Cirrhosis of liver 78558295 K74.60 Acute-on-c hronic renal failure 831555787 N17.9 R80.9 [id number] DOTTIE COFFMAN LPN [address] [id number] 10/25/2024 13:01:10 10/25/2024 13:17:52 [id number] ULISES BARKER MD [address] [address] 11/09/2024 15:11:53 11/09/2024 15:57:42 Acute exacerbation of chronic obstructive pulmonary disease 793313958 J44.1 with possible PNA- Complete current antibiotic regimen.- Complete 5 days of 40 mg/d prednisone , then taper prednisone , given ongoing wheezing and SOB:- 30 mg daily for 3 days- 20 mg daily for 3 days- 10 mg daily for 3 days, then discontinu e- Monitor for worsening respirator y symptoms. Essential hypertension 67813889 I10 - Improved, but not at goal- amlodipine may be contributi ng to LE edema, but no changes made today.- has f/u next week w/ PCP Peripheral edema 0102508 00 R60.9 venous stasis vs. hepatorena l syndrome vs. HF. also could be d/t amlodipine .- I am concerned about possible HF, as BNP in hospital was 21,500. Unclear if she had echo or not - not in chart, and we don't have d/c summary. Will request records. Will order echo if not done in hospital.- Home health nurse to wrap legs for compressio n.- Consider prescripti on for compressio n stockings if wrapping is insufficie nt. Chronic ki dney disease stage 5 244799122 N18.5 N17.9 with acute worsening- nephrology referral pending - Nica Zarate talked to Dr. Loredo yesterday, who assured her that their office would reach out to expedite referral. However, pt still hasn't heard from them - I will have our referral coordinato r check in.- recheck BMP tomorrow- she is in near-total renal failure (creatinin e yesterday 7.3, GFR=6.36). Advised if feeling worse, go to ED, ideally at [facility]. Chronic constipation 236 537597 K59.09 - Continue MiraLAX and Colace as needed. Health Concerns Section Related Observation LastModified by Organization Detai christos LastModified Time None Recorded Concern Status LastModified by Organization Details LastModified Time None Recorded Advance Directives Directive None Recorded Payers Encounter Date Sequence Insurance Name Policy Number Policy Salmon Covered Member ID Salmon Member ID Guarantor Name 09/01/2024 2 [facility] (MEDICAID) Lea Miramontes [id number] Lea Miramontes 09/01/2024 1 [place] Lea Kaminski Pedro [id number] Lea Kaminski Pedro 10/06/2024 2 [facility] (MEDICAID) Lea Kaminski Pedro [id number] Lea Kaminski Pedro 10/06/2024 1 [place] Lea Kaminski Pedro [id number] Lea Kaminski Pedro 10/19/2024 2 [facility] (MEDICAID) Lea Kaminski Pedro [id number] Lea Kaminski Pedro 10/19/2024 1 [place] Lea Kaminski Pedro [id number] Lea Kaminski Pedro 10/20/2024 2 [facility] (MEDICAID) Lea Kaminski Pedro [id number] Lea Kaminski Pedro 10/20/2024 1 [place] [facility] (MEDICARE) Lea Kaminski Pedro [id number] 4 Lea Kaminski Pedro 10/25/2024 2 [facility] (MEDICAID) Lea Kaminski Pedro [id number] Lea Kaminski Pedro 10/25/2024 1 [place] - [facility] (MEDICARE) Lea Kaminski Pedro [id number] 4 Lea Kaminski Pedro Notes Date Note Type Note Provider Name [...] day. SHARON HENDERSON MD [address], [place], [address], [facility]. 09/01/2024 16:11:54 10/06/2024 text/html CC: Medicare wel lness visit, f/u diabetes with complications, cirrhosis, asthma with COPD, and depressionPatient seen for MWV. HSA reviewed, no concerns. No cognitive concerns. Care team, med hx, FH, SH reviewed and updated. Lea presents [...] She is open to working with the [facility] case making machine operator Chari whom she met at the beginning of today's visit for the first time. Lea notes that her partner has not initiated Hepatitis C treatment, but states this is not currently a concern. She mentions that the medication affects intimacy and adds that her partner is almost 60 years old. ROSIBEL SALGADO RN [facility], [facility]. 10/06/2024 16:21:16 10/19/2024 text/html CC: f/u [...] 158/82 SHARON HENDERSON MD [address], [place], [address], [facility]. 10/19/2024 17:05:17 OBGyn Episode No OBEpisode recorded.
--- OUTSIDE RECORDS SUMMARY | 2024-11-10 15:28 | XMS_ITS | Continuity of Care Document ---
Author Organization [facility] Address [address] [place] [address] Care Team Providers Care Patron Attendant Name Role Phone [facility] OPHTHALMOLOGY [facility] Ophtha lmologist RACHELL FIORE Slubber Runner Assessment No assessment recorded. Plan of Treatment Reminders Order Date Submit Date Provider Last Modified By Organization Details Last Modified Time Details Appointments Follow Up 2024 01:50P Roly HENDERSON Not available Not available Not available Follow Up 2024 02:30P Roly HENDERSON Not available Not available Not available Lab INR, blood 2024 025 [email or web address] [facility] (Registration ), [address] [place] [address] [place], [address], 11/01/2024 08:13:49 HBsAg (hepatiti s B surface Ag), serum 2024 025 [email or web address] [facility] (Registration ), [address] [place] [address] [place], [address], 10/27/2024 07:09:00 hepatitis B core Ab, total, serum 2024 025 KATHE [facility] (Registration ), [address] [place] [address] [place], [address], 10/23/2024 14:29:09 hepatitis A Ab, total, serum 2024 025 [email or web address] [facility] (Registration ), [address] [place] [address] [place], [address], 10/27/2024 07:09:31 partial thrombopl astin time 2024 025 [email or web address] [facility] (Registration ), [address] [place] [address] [place], [address], 11/01/2024 07:26:38 prothromb in time 2024 025 KATHE [facility] (Registration ), [address] [place] [address] [place], [address], 10/25/2024 21:51:20 protein:c reatinine ratio, urine 2024 025 [facility] (Registration ), [address] [place] [address] [place], [address], 10/31/2024 07:57:15 C3 + C4 (compleme nt), serum 2024 025 [email or web address] (Registration ), [address] [place] [address] [place], [address], 10/27/2024 07:07:57 DEIDRE (antinucl ear antibodie s) screen, serum 2024 025 [email or web address] [facility] (Registration ), [address] [place] [address] [place], [address], 10/27/2024 07:08:30 Referral None recorded. Procedures None recorded. Surgeries [...] [facility] RAD[facility] OGY Jeff Mchugh [id number] RADIOL OGY TRANSC RIPTIO N REPORT _ Patien t Name: ERROL RUTH MS MRN: Sex: : Age: [id number] F [id number] Accoun t: Access ion: Admit: StayTy pe: [id number] 2023 E Ordere d: Order ID: Submit curtis: Ordertrey ng Provid er: 2023 14:14 [id number] CAROLINA MCINTOSH Comple curtis: Techno logist : [...] please contac t the number below. For saúlmichael ts who have questi ons please contac t the health care chicho jiméenz that reques curtis your imagin g first. Electr onical ly signed by: Júnior Vick MD Radiol ogcourtney schaefer ([phone]), at 2023 3:51 PM INTERFACE [facility] (Lab) [address] [place] [address], [address], 10/07/2024 15:57:10 11/01/19 25 11/01/2024 xr chest tiffany ble or 1V [facility] [place] RADIOL OGY [place] Jeff santamaria [id number] RADIOL OGY [facility] SUKHDEEP N REPORT _ Luis t Name: FARAZ BUCKLEY,ERROL BYERS B MRN: Sex: : Age: [id number] F [id number] Accoun t: Access ion: Admit: StayTy pe: [id number] 025 E Ammon d: Order ID: Submit curtis: Rosetta urena Provid er: 2024 01:40 [id number] ABBI JALLOH curtis: Techno logist : Result [...] 025 2:13 AM INTERFACE [facility] (Lab) [address] [place] [address], [address], 11/01/2024 02:19:02 11/02/19 25 11/01/2024 EKG order jude ng [facility] Jeff santamaria [address] EKG TRANSC RIPTIO N REPORT _ Accoun t: Access ion: Admit: StayTy pe: [id number] 025 E/R Observ ation: Order ID: Submit curtis: Rosetta urena [facility] er: 2024 02:16 [id number] ABBI JALLOH _ [place] [id number] [facility]: 11-01 Pat Name: ABELINO RUTH MS Depart ment: Burak eugene ID: [id number] Room: Gender : F Techni emir: : 01-03 Reques curtis By: ABBI Reynoso Order Number : [id number] Charbel junior MD: Gentry Finney Measur ements Interv als [place] Rate: 104 P: 76 NC: 176 QRS: -32 QRSD: 96 T: 0 QT: 370 QTc: 486 Interp retive Statem ents Sinus tachyc ardia Left axis deviat ion Compar ed to ECG 2022 05:17: 21 Left-a xis deviat ion now presen t Sinus rhythm no longer presen t Electr onical ly Signed On 025 8:26:2 3 EST by Gentry Finney INTERFACE [facility] (Lab) [address] [place] [address], [address], 11/02/2024 08:28:22 11/02/19 25 11/01/2024 CT chest wo contr ast [facility] RADIOL OGY Jeff Mchugh [address] RADIOL OGY TRANSC SUKHDEEP Schaefer REPORT _ Patimichael t Name: FARAZ BUCKLEYERROL MRN: Sex: : Age: [id number] F [age] Accoun t: Access ion: Admit: StayTy pe: [id number] 025 I Ordere d: Order ID: Submit curtis: Rosetta uerna Provid er: 2024 08:54 [id number] CLIVE BONNER curtis: Techno logist : Result [...] lung findin gs which may be second esa to atypic al pneumo dominik. There may be an underl juanis compon ent of lung edema. Anasar ca. 2. Findin gs sugges tive of anemia Thank you for gail junior us partic ipate in the care of this luis eugene. If you are a health care provid [...] 025 9:30 AM INTERFACE [facility] (Lab) [address] [place] [address], [address], 11/02/2024 09:37:40 11/02/19 25 11/02/2024 nm lung venti latio n and perfu ronan* [facility] RADIOL OGY [place] Jeff santamaria [address] RADIOL OGY TRANSC RIPTIO N REPORT _ Luis eugene Name: FARAZ BUCKLEY,ERROL ZEESHAN B MRN: Sex: : Age: [id number] F [age] Accoun t: Access ion: Admit: StayTy pe: [id number] 025 I Ammon d: Order ID: Submit curtis: Ordertrey ng Provid er: 2024 14:46 [id number] GARTH NORWOOD Comple curtis: Techno logist : [...] were obtain ed in the anteri or, wound care nurse ior, latera l and obliqu e projec [...] t. If you are a health care [facility] er and have any questi ons regard ing this report , please contac t the number below. For patien ts who have questi ons please contac t the [facility] that reques curtis your imagin g first. Electr onical ly signed by: Júnior Vick MD Radiol jimmy schaefer ([phone]), at 025 11:46 AM [facility] (Lab) [address] [place] [address], [address], 11/02/2024 11:53:05 Result Notes None recorded. Problems Name Problem SNOMED Code Status Onset Date Resolution Date Notes Provider Name and Address Organization Details Recorded Time Complica tion due to diabetes mellitus 56546933 Active [address], [place], [address] , [place] - [facility]. 4 14:41:01 Gastroes ophageal reflux disease without esophagi tis 331146933 Active [address], [address] 4 15:41:02 Sleep apnea 87419572 Active [address], [address] 4 15:41:33 Dyspnea on exertion 42905711 Active [address], [address] 16:02:44 Smoker 06172738 Active [address], [address] 16:03:44 Legal blindnes s 84610618 Active [address], [address] 16:04:00 Toenail thickene d 506109148 Active [address], [address] 4 16:07:44 Pruritic rash 90235876 Active [address], [address] 16:09:31 Retroper itoneal lymphade nopathy 823076169 Active 2023 burak MIRAMONTES RN null, [facility] 5 12:10:08 Renal failure syndrome 90839321 Active 2023 burak MIRAOMNTES RN null, [facility] 5 12:10:41 Acute exacerba tion of chronic obstruct vishnu pulmonar y disease 339001214 Active 2024 SHARON HENDERSON MD [address], [place], [address] , [facility] 5 15:11:03 Acute renal insuffic iency 365891124 Active 2024 SHARON HENDERSON MD [address], [place], [address] , [facility] 5 16:57:59 Chronic kidney disease stage 5 708896979 Active 2024 ULISES BARKER MD [address], [place], [address] , [facility] 5 11:20:54 [facility] hyperten ronan 04475070 Active 2005 [facility] 4 09:53:15 Hyperlip idemia 76013275 Active 2005 [facility] 4 10:08:20 Uncompli cated moderate persiste nt asthma 296729192 Active 2005 [facility] 4 10:24:46 Severe obesity 88702199834 104 Active 2005 [facility] 4 10:22:09 Chronic hepatiti s C 109724939 Active 2003 pos viral load not treated [facility] 4 09:47:44 Pain of right shoulder joint 71787478994 260531 Active 2014 [facility] 4 10:17:43 Neuropat hy due to type 2 diabetes mellitus 74000186238 9106 Active 2014 uncontro lled, w/neurol o comps [facility] 4 10:17:28 Idiopath ic osteoart hritis 778246979 Active 2014 DJD, knees, bilatera l [facility] 4 10:08:49 Renal disorder due to type 2 diabetes mellitus 509417523 Active 2015 Diabetic nephropa thy [facility] 4 10:21:57 Derangem ent of right knee 23863464859 410198 Completed 201505/05/2016 Problem Code: M23.91; Problem Code Type: ICD-10; Not Available [facility] 3 04:12:16 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 59574755987 9104 Active 2015 (not billable after 6) [facility] 4 10:16:21 Cocaine abuse 43240245 Active 2016 episodic [facility] 4 09:50:22 Tobacco use cessatio n educatio n Active 2016 [facility] 4 10:22:41 Gallblad mark calculus with acute cholecys titis and no obstruct ion 522148499 Completed 201612/29/2016 Problem Code: K80.00; Problem Code Type: ICD-10; Not Available [facility] 3 04:12:17 Acute asthma 803504942 Completed 201604/13/2017 Problem Code: J45.901; Problem Code Type: ICD-10; Not Available [facility] 3 04:12:17 Cellulit is 237482189 Completed 201607/16/2017 Problem Code: L03.90; Problem Code Type: ICD-10; Not Available [facility] 3 04:12:17 Atopic dermatit is 06533510 Active 2017 [facility] 4 09:45:01 Impetigo 68947585 Completed 201705/03/2018 Problem Code: L01.00; Problem Code Type: ICD-10; Not Available [facility] 04:12:17 Screenin vernon ledesma Completed 201804/20/2019 Problem Code: Z12.31; Problem Code Type: ICD-10; Not Available [facility] 3 04:12:18 History of diabetic foot ulcer 27534494215 511253 Active 2018 [facility] 4 10:01:51 Chronic obstruct vishnu pulmonar y disease 01101280 Active 2018 Asthma with COPD [facility] 4 09:48:31 Anemia 578501445 Active 2018 [facility] 4 09:39:01 Albumin level - finding 030664879 Active 2018 decrease d [facility] 4 09:37:16 Peripher al venous insuffic iency 92746813 Active 2018 Stasis ulcer [facility] 4 10:18:18 Cough 10064222 Completed 201908/22/2020 Problem Code: R05; Problem Code Type: ICD-10; Not Available [facility] 3 04:12:19 Endocrin e/met[place] lic wayne junior Completed 202012/28/2020 Problem Code: Z13.29; Problem Code Type: ICD-10; Not Available [facility] 3 04:12:19 Counseli ng Active 2020 Immuniza tion counseli ng [facility] 4 09:51:24 Generali zed anxiety disorder 89325677 Active 2020 [facility] 4 10:01:19 Vomiting 224828005 Completed 202006/26/2021 Problem Code: R11.10; Problem Code Type: ICD-10; Not Available [facility] 3 04:12:19 Insect bite Completed 202007/09/2021 Not Available [facility] 3 04:12:20 Cirrhosi s of liver 08173303 Active 2022 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 with possible contribu tion of [place], decompen sated [facility] 4 09:49:47 Jaundice 78614382 Active 2022 [facility] 4 10:09:01 Muscle weakness 13078406 Active 2022 (general ized) [facility] 4 10:16:46 Opioid abuse 2173620 Completed 202209/28/2023 Problem Code: F11.10; Problem Code Type: ICD-10; Not Available [facility] 4 05:34:22 Lichen simplex chronicu s 35043270 Active 2022 Neuroder matitis [facility] 4 10:10:12 History of osteomye litis 991491345 Active 2022 [facility] 4 10:05:22 Opioid abuse 3105755 Completed 201807/14/2023 03/04/20 21 - Comments only - Sharon Henderson MD - offered scg for OBT but she states she plans to try to establis h tx thru [facility]. Not interest ed in Suboxone or Vivitrol ; might be interest ed in Sublocad e. Problem Code: F11.10; Problem Code Type: ICD-10; Not Available [facility] 3 04:12:22 Cholelit hiasis without obstruct ion 56058226 Completed 201512/22/2016 Problem Code: K80.20; Problem Code Type: ICD-10; Not Available [facility] 3 04:12:22 Candidia sis of vagina 13988116 Completed 201503/27/2016 Problem Code: B37.3; Problem Code Type: ICD-10; Not Available [facility] 3 04:12:23 Traumati c or non-trau matic injury 361182876 Completed 201607/14/2023 Problem Code: T14.8; Problem Code Type: ICD-10; Not Available [facility] 3 04:12:23 Disorder of teeth AND/OR supporti [facility] 478994041 Completed 201503/17/2016 Problem Code: K08.8; Problem Code Type: ICD-10; Not Available [facility] 3 04:12:23 Uncompli cated asthma 402849252 Completed 200507/14/2023 Problem Code: J45.909; Problem Code Type: ICD-10; Not Available [facility] 3 04:12:23 Hyperten sive disorder 02570526 Completed 200507/14/2023 Not Available [facility] 3 04:12:24 Scar conditio ns and fibrosis of skin 373050319 Completed 201604/23/2017 Problem Code: L90.5; Problem Code Type: ICD-10; Not Available [facility] 3 04:12:24 Human papillom a virus infectio n 298603077 Completed 201607/14/2023 Problem Code: B97.7; Problem Code Type: ICD-10; Not Available [facility] 3 04:12:24 Morbid obesity 688745480 Completed 200507/14/2023 Not Available [facility] 3 04:12:24 Foot ulcer due to type 2 diabetes mellitus 26320607417 00 Completed 201512/22/2016 01/20/20 19 - Comments [...] E11.621; Problem Code Type: ICD-10; Kristie rivera [facility] 4 09:59:50 Periapic al abscess 531816791 Completed 201403/17/2016 Problem Code: K04.7; Problem Code Type: ICD-10; Not Available [facility] 3 04:12:25 Drug abuse 41466376 Completed 200707/14/2023 Problem Code: 305.90; Problem Code Type: ICD-9; Not Available [facility] 3 04:12:25 Opioid dependen ce in remissio n 589918846 Completed 201807/14/2023 09/26/20 19 - Comments only [...] F11.21; Problem Code Type: ICD-10; Not Available [facility] 3 04:12:25 Gynecolo gic examinat ion Completed 201602/02/2017 Problem Code: Z01.419; Problem Code Type: ICD-10; Not Available [facility] 3 04:12:26 Nodule on toe 671929784 Completed 201605/25/2019 Not Available [facility] 3 04:12:26 Pain of right knee joint 47483111088 4100 Completed 201502/02/2017 Problem Code: M25.561; Problem Code Type: ICD-10; Not Available [facility] 3 04:12:26 Candidia sis of skin 37969380 Completed 201503/27/2016 Problem Code: B37.2; Problem Code Type: ICD-10; Not Available [facility] 3 04:12:26 Dysuria 55138678 Completed 201505/07/2016 Problem Code: R30.0; Problem Code Type: ICD-10; Not Available [facility] 3 04:12:27 Retinopa thy due to type 2 diabetes mellitus 888343277 Completed 201507/14/2023 Problem Code: E11.319; Problem Code Type: ICD-10; Not Available [facility] 3 04:12:27 Infectio n of skin and/or subcutan eous tissue 31476044 Completed 202204/30/2023 Problem Code: L08.89; Problem Code Type: ICD-10; Not Available [facility] 3 04:12:27 Tobacco dependen ce caused by cigarett es 29343664901 140089 Completed 200305/25/2019 Problem Code: F17.210; Problem Code Type: ICD-10; Not Available [facility] 3 04:12:27 Opioid dependen ce 92016000 Completed 200309/04/2015 05/25/20 19 - Comments only - Alexandro Grewal - Doing well in treatmen t at [facility]. Problem Code: F11.20; Problem Code Type: ICD-10; Not Available [facility] 3 04:12:28 Asthma 738469679 Completed 200507/14/2023 Not Available [facility] 3 04:12:28 Pain of joint of knee 3527742126 Completed 201407/14/2023 Problem Code: M25.569; Problem Code Type: ICD-10; Not Available [facility] 3 04:12:28 Cellulit is of right lower limb 25371480120 829169 Completed 201805/25/2019 Problem Code: L03.115; Problem Code Type: ICD-10; Not Available [facility] 3 04:12:28 Shoulder joint pain 084463287 Completed 201407/14/2023 Problem Code: 719.41; Problem Code Type: ICD-9; Not Available [facility] 04:12:29 Smoker 75823008 Completed 200307/14/[address], [facility] [address] , [facility] 4 16:03:44 Chronic ulcer of foot 061517027 Completed 201601/05/2017 Problem Code: L97.529; Problem Code Type: ICD-10; Not Available [facility] 04:12:29 Type 2 diabetes mellitus without complica tion 578744321 Completed 200307/14/2023 Problem Code: 250.00; Problem Code Type: ICD-9; MD Shailesh B[address] Dr, [facility] [address] , [facility] 14:43:16 Pain of left knee joint 52909149065 4107 Completed 201407/14/2023 Problem Code: M25.562; Problem Code Type: ICD-10; Not Available [facility] 04:12:30 Depressi ve disorder 98592903 Completed 200307/14/[address], [facility] [address] , [facility] 14:41:17 Hypergly cemia due to type 2 diabetes mellitus 88764514739 9109 Completed 200309/04/2015 Problem Code: E11.65; Problem Code Type: ICD-10; Not Available [facility] 3 04:12:30 Chest pain 31362439 Completed 201605/25/2019 Problem Code: R07.89; Problem Code Type: ICD-10; Not Available [facility] 3 04:12:31 Drug dependen ce 779642636 Completed 200307/14/2023 Problem Code: 304; Problem Code Type: ICD-9; Not Available [facility] 3 04:12:31 Cellulit is of toe of right foot 43029184157 326335 Completed 201505/11/2016 Problem Code: L03.031; Problem Code Type: ICD-10; Not Available [facility] 3 04:12:31 Osteoart hritis of knee 249031758 Completed 201402/02/2017 Problem Code: M17.9; Problem Code Type: ICD-10; Not Available [facility] 3 04:12:32 History of infectio us disease 746066315 Completed 201409/04/2015 Problem Code: Z86.19; Problem Code Type: ICD-10; Kristie rivera [facility] 4 10:05:01 Tobacco user 851004143 Completed 200508/06/2015 Not Available [facility] 3 04:12:32 Viral screenin g Completed 202209/10/2023 Problem Code: Z11.52; Problem Code Type: ICD-10; Not Available [facility] 4 05:34:15 Acute upper respirat ory infectio n 54559797 Completed 202208/18/2023 Problem Code: J06.9; Problem Code Type: ICD-10; Not Available [facility] 4 05:34:15 Type 2 diabetes mellitus without complica tion 553317578 Completed 202309/01/2024 Problem Code: 250.00; Problem Code Type: ICD-9; SHARON HENDERSON MD [address], [place], [address] , [facility] 4 14:43:16 Asthma-c hronic obstruct vishnu pulmonar y disease overlap syndrome 30323221542 403450 Active 2023 Kristie rivera [facility] 4 09:39:21 Decompen sated cirrhosi s of liver 021942854 Active 2023 Child Bourgeois score 8/Class B as of 12/2022 [facility] 4 09:51:34 Visual impairme nt 501025995 Active 2023 [facility] 4 10:29:20 Thickene d nails 881804642 Active 2023 [facility] 4 10:22:14 Thickeni ng of skin 02732477 Completed 202309/01/2024 SHARON HENDERSON MD [address], [place], [address] [facility] 4 14:43:15 Acquired hammer toes of bilatera l feet 78984791073 033664 Active 2023 [facility] 4 09:37:02 History of amputati on of right foot 97567541793 024678 Active 2023 [facility] 4 10:01:25 Combined form of senile cataract 22846305 Active 2023 [facility] 4 09:50:32 Unintent ional weight loss 468309500 Active 2022 [facility] 4 10:24:46 History of amputati on of lesser toe 608033714 Active 2022 [facility] 4 09:38:36 History of intraven ous drug abuse 92360153849 250230 Active 2007 heroin [facility] 4 09:40:14 Left ventricu lar hypertro phy 91538021 Active 2015 mild concentr ic /16 echo (nl EF) [facility] 4 09:47:08 Follicul itis 76265351 Active 2022 [facility] 4 09:52:22 Peripher al edema 586443818 Active 2014 [facility] 4 09:52:55 Mild persiste nt asthma 504112876 Active 2022 with acute exacerba tion [facility] 4 09:54:28 Family history of Alzheime r's disease 541893391 Active 2018 mother age 50, maternal grandmot her, maternal aunts and uncles; no genetic testing done [facility] 4 09:56:26 Diabetic foot ulcer 434301078 Active 2022 [facility] 4 09:59:46 History of cholecys tectomy 652785428 Active 2016 laparosc opic, 01/01 [facility] 4 10:00:55 History of human papillom a virus infectio n 57339442592 9102 Active 01/01; nl pap; neg colpo 04/03 incl ECC; neg pap 11/05; 5 yr f/u [facility] 4 10:04:56 History of opioid abuse 00550293246 9100 Active 2018 Hx of opioid abuse -- [facility] resumed suboxone 09/07 [facility] 4 10:08:01 Juvenal lopez 663204467 Active 2015 s/p complete extr due to advanced caries 03/02 [facility] 4 10:13:37 Major depressi ve disorder 278988563 Active 2022 Major depressi on [facility] 4 10:15:28 Traumati c partial amputati on of right great toe Active 2018 initial encounte r Kristie Peters [facility] 4 10:23:54 Stasis dermatit is 91804756 Active 2021 Venous stasis dermatit is Kristie Peters [facility], [facility] 4 10:30:44 Diabetes mellitus 95887244 Completed 202309/01/[address], [address] , [facility] 4 14:43:16 Type 2 diabetes mellitus 55860587 Completed 202309/01/[address], [place] [address] , [facility] 14:43:16 Obesity 398095601 Active [address], [place] [address] , [facility] 20:58:25 Hemoglob in A1c greater than 9% indicati ng poor diabetic control 68691085609 4104 Completed 202309/01/[address], [facility] [address] , [facility] 14:43:16 Problem Notes None recorded. Medical Equipment None Reported. Allergies Allergen ID Allergen Name Allergen Category Reaction Reaction Severity Criticality Documentation Date Start Date Code Code System Note Provider Name and Address Organization Details Recorded Time 20559 lisinopri l medicatio n cough moderate Not available 08/27/20232009 16730 [facility] 10:31:16 37614 metoprolo l succinate medicatio n other moderate Not available 08/27/20232018 44510 4 RxNorm No react ion enter ed [facility] 4 10:31:36 75036 codeine medicatio n hives moderate Not available 08/27/20232002 2670 [facility] 4 10:31:10 Medications Name Sig Start Date [...] Stockings Dx: peripher al edema 11/04 completed Ary Teo Not Available Not Available Not Available gabapenti n 300 mg tablet 3 cap three times daily 06/16 completed Not Available Not Available Not Available albuterol 2INH four times daily 07/31 completed Not Available Not Available Not Available Nystatin (Topical) cream apply BID 05/28 completed Not Available Not Available Not Available Nebulizer Dx: Asthma J45.40 Smoking Z71.[address] in [place] Not Available Not Available Not Available Humalog [...] Available pen needle, diabetic 33 gauge x 10/21 1 needle subcutan eously three times a [...] Smoker SURJIT KITCHEN LPN null, [place] - [facility]. 11/03/2023 13:42:55 Date Of Most Recent HSA 10/06/2024 Information not available 10/06/2024 Would You Say That, In General, Your Health Is Poor [email or web address] Information not available 10/06/2024 Women Aged 18-50 - Would You Like To Become In The Next Year? (Female Patients Only) No [email or web address] Information not available 10/06/2024 How Often Does Anyone, Including Family, Physically Hurt You? Never [email or web address] Information not available 10/06/2024 How Often Does Anyone, Including Family, Insult Or Talk Down To You? Never [email or web address] Information no t available 10/06/2024 How Often Does Anyone, Including Family, Threaten You With Harm? Never [email or web address] Information not available 10/06/2024 How Often Does Anyone, Including Family, Scream Or Curse At You? Never [email or web address] Information not available 10/06/2024 Within The Past 12 Months, You Worried That Your Food Would Run Out Before You Got Money To Buy More. Sometimes True [email or web address] Information not available 10/06/2024 Within The Past 12 Months, The Food You Bought Just Didn't Last And You Didn't Have Money To Get More. Sometimes True [email or web address] Information not available 10/06/2024 How Hard Is It For You To Pay For The Very Basics Like Food, Housing, Medical Care, And Heating? Would You Say It Is: Very Hard [email or web address] Information not available 10/06/2024 In The Past 12 Months, Has Lack Of Reliable Transportation Kept You From Medical Appointments, Meetings, Work Or From Getting Things Needed For Daily Living? Yes [email or web address] Information not available 10/06/2024 What Is Your Housing Situation Today? I Have Housing. Information not available 10/06/2024 How Often In The Past Year Have You Used Marijuana (including Smoking, Vaping, Dabbing, Or Edibles)? Never [email or web address] Information not available 10/06/2024 How Often In The Past Year Have You Used Prescription Medications That Were Not Prescribed To You? Never [email or web address] Information not available 10/06/2024 How Often In The Past Year Have You Taken Your Own Prescription Medication More Than The Way It Was Prescribed Or For Different Reasons Than Its Intended Purpose? Never [email or web address] Information no t available 10/06/2024 How Often In The Past Year Have You Used Other Drugs (for Example, Heroin, Cocaine, Meth, Salvia, Inhalants)? Never [email or web address] Information not available 10/06/2024 Have You Ever Used IV Drugs? Yes 10 Years Ago pnvyklq555 Information not available 10/06/2024 What Matters Most To You? Vision, Overall Health [email or web address] Information not available 10/06/2024 During The Past Four Weeks Has Your Physical And Emotional Health Limited Your Social Activities With Family And Friends, Neighbors, Or Groups? Moderately [email or web address] Information not available 10/06/2024 During The Past Four Weeks, Was Someone Available To Help You If You Needed And Wanted Help? (For Example, If You [place] Very Nervous, Lonely, Or Blue; Got Sick And Had To Stay In Bed; Needed Someone To Talk To; Needed Help With Daily Chores; Or Needed Help Just Taking Care Of Yourself.) Yes- Quite A Bit [email or web address] Information not available 10/06/2024 During The Past Four Weeks, What Was The Hardest Physical Activity You Could Do For At Least 2 Minutes? Heavy [email or web address] Information not available 10/06/2024 Can You Get To Places Out Of Walking Distance Without Help? (For Example, Can You Travel Alone On Buses Or Taxis, Or Drive Your Own Car?) No [email or web address] Information not available 10/06/2024 Can You Go Shopping For Groceries Or Clothes Without Someone? s Help? No Information not available 10/06/2024 Can You Prepare Your Own Meals? No [email or web address] Information not available 10/06/2024 Can You Do Your Housework Without Help? Yes [email or web address] Information not available 10/06/2024 Because Of Any Health Problems, Do You Need The Help Of Another Person With Your Personal Care Needs Such As Eating, Bathing, Dressing, Or Getting Around The House? Yes [email or web address] Information not available 10/06/2024 Can You Handle Your Own Money Without Help? Yes Information not available 10/06/2024 Are You Having Difficulties Driving Your Car? Not Applicable- I Do Not Use A Car [email or web address] Information not available 10/06/2024 How Often During The Past Four Weeks Have You Been Bothered By Any Of The Following Problems? Falling Or Dizzy When Standing Up? Often [email or web address] Information not available 10/06/2024 Sexual Problems? Never Informat ion not available 10/06/2024 Trouble Eating Well? Never [email or web address] Information not available 10/06/2024 Teeth Or Denture Problems? Always [email or web address] Information not available 10/06/2024 Problems Using The Telephone? Always Can't See Phone [email or web address] Information not available 10/06/2024 Tiredness Or Fatigue? Always [email or web address] Information not available 10/06/2024 Have You Had 2 Or More Falls Or Sustained An Injury With A Fall In The Last Year? Yes [email or web address] Information not available 10/06/2024 Do You Have Difficulty With Walking Or Balance? Yes [email or web address] Information not available 10/06/2024 Do You Currently Use A Hearing Device? No [email or web address] Information not available 10/06/2024 Do You Currently Have Any Trouble With Your Vision? Yes [email or web address] Information no t available 10/06/2024 Do You Exercise For About 20 Minutes Three Or More Days A Week? No- I Usually Do Not Exercise Much [email or web address] Information not available 10/06/2024 Are There Any Safety Concerns In Your Home (see Attached CDC Pamphlet)? Yes Stairs, Cooking [email or web address] Information not available 10/06/2024 How Often Do You Have Trouble Taking Medicines The Way You Have Been Told To Take Them? Sometimes I Take Them As Prescribed [email or web address] Information not available 10/06/2024 How Confident Are You That You Can Control And Manage Most Of Your Health Problems? Somewhat Confident pqgipnp236 Information not available 10/06/2024 Do You Currently Have Any Difficulty With Your Hearing? No [email or web address] Information not available 10/06/2024 Date Of Most Recent SBINS 10/06/2024 [email or web address] Information not available 10/06/2024 What Was The [...] Cessation Counseling Been Provided? Yes Pt Declines. [email or web address] Information not available 10/06/2024 On What Date Was Tobacco Cessation Counseling Provided? 10/06/2024 Pt Just Not Ready Yet. [email or web address] Information not available 10/06/2024 How Many Years [...] Family history of diabetes mellitus type 1 linchingui.70 Not available 2022 03:50:26 Notes:*Problem: Mother: chichi [...] mcg/0.3 mL 4 completed ARMIDA HIRSCH MA [facility], [place] - [facility] 09/01/2024 18:38:23 Influenza, split virus, trivalent, PF 4 completed SHARON HENDERSON MD [address], [place], [address], [facility] - [facility] 09/01/2024 16:09:15 Td (adult), 5 Lf tetanus toxoid, preservative free, adsorbed 7 completed Not Available [facility] 08/27/2023 06:21:08 Tdap 7 completed Not Available [facility] 08/27/2023 06:21:08 Novel Ebobihhst-[id number], all formulations 9 completed [facility] 08[facility]27[facility]23 06:21:08 Td(adult) unspecified formulation 1 completed Not Available [facility] 08/27/2023 06:21:08 Influenza, split virus, trivalent, preservative 6 completed Not Available [facility] 08/27/2023 06:21:08 Influenza, split virus, quadrivalent, PF 2 completed Not Available [facility] 08/27/2023 06:21:08 Influenza, split virus, quadrivalent, PF 3 completed Not Available [facility] 08/27/2023 06:21:08 Influenza, split virus, quadrivalent, preservative 8 completed Not Available [facility] 08/27/2023 06:21:09 COVID-19, mRNA, LNP-S, PF, 100 mcg/0.5mL dose or 50 mcg/0.25mL dose 2 completed Not Available [facility] 08/27/2023 06:21:09 COVID-19 vaccine, vector-nr, rS-Ad26, PF, 0.5 mL 1 completed Not Available [facility] 08/27/2023 06:21:09 COVID-19, mRNA, LNP-S, bivalent, PF, 30 mcg/0.3 mL dose 3 completed Not Available [facility] 08/27/2023 06:21:09 pneumococcal polysaccharide PPV23 0 completed Not Available [facility] 08/27/2023 06:21:09 influenza, unspecified formulation 9 completed Not Available [facility] 08/27/2023 06:21:09 influenza, unspecified formulation 8 completed Not Available [facility] 08/27/2023 06:21:09 influenza, unspecified formulation 7 completed Not Available [facility] 08/27/2023 06:21:09 Influenza, split virus, quadrivalent, PF 3 completed Not Available [facility] 10/29/2023 05:31:09 Pneumococcal conjugate PCV20, polysaccharide GAA744 conjugate, adjuvant, PF 3 completed Not Available [facility] 10/29/2023 05:31:11 Past Encounters Encounter ID Performer Location Encounter Start Date Encounter Closed Date Diagnosis/Indication Diagnosis SNOMED-CT Code Diagnosis ICD10 Code Diagnosis Note [id number] ROSIBEL SALGADO RN [address] [address] 10/06/2024 12:53:21 10/06/2024 14:03:34 Adult health examination 372144815 Z00.00 Muscle weakness 45532306 M62.81 Decompensa curtis cirrhosis of liver 580443161 K74.60 See above. No evidence of ascites, varices or jaundice. Hyperlipidemia 36811948 E78.5 Chronic hepatitis C 1283 51028 B18.2 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 [id number] 0912313 J44.9 Recommende d switch from Breo to Trelegy for LABA/LAMA coverage as well as ICS. 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 84063699 E11.8 [id number] October [facility] [[email or web address] [address] [place] [address] 10/19/2024 14:35:21 10/19/2024 17:05:19 Acute exacerbation of chronic obstructive pulmonary disease 232958233 J44.1 Will treat with short course of prednisone , 40 mg/day x 5 days. In-house supply dispensed given her difficulty getting to and obtaining medication s from the pharmacy. 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 I reviewed with her availabili ty of a funds to our office to help with co-pays if needed. Renal fail ure syndrome 93236550 N19 Acute on chronic with no significan [...] lung disease. Decompensa curtis cirrhosis of liver 864800037 K74.60 Will check coag studies, had recent liver function tests, will forward all to nephrology . Chronic hepatitis C 1283 52268 B18.2 High viral load, she was hoping to start treatment but is too ill at this time. Acute randa l insufficiency 291243881 N28.9 Repeat BMP drawn today. Will schedule weekly BMPs through home health to keep close eye on creatinine and GFR. Essential hypertension 43109334 I10 Blood pressure higher since discontinu ation of losartan HCTZ. Will increase amlodipine from 5 to 10 mg/day. 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 24990811 E11.8 A1c was 6.6 during recent hospital stay and blood sugars have been remaining under 200 off all insulin and oral hypoglycem ics recently. Will likely need resumption of some degree of insulin or possibly an oral agent, will monitor. She will continue checking her sugars 2-3 times per day. Tobacco Radius e cessation education 783594500 Z71.6 Unfortunat dimitri she continues to smoke and has been unable to quit. History of opioid abuse 3542350968 20143 F11.11 Stable on methadone but with ongoing cocaine use. Retroperit antonio lymphadenopathy 767907371 R59.0 Reactive etiology favored per radiologis t, no concerning masses or other signs of malignancy on recent noncontras t abdominal pelvis CT. [id number] DOTTIE COFFMAN LPN [address] [address] 10/20/2024 13:00:57 10/20/2024 14:00:30 Cirrhosis of liver 87473685 K74.60 Acute-on-c hronic renal failure 921342148 N17.9 R80.9 Health Concerns Section Related Observation LastModified by Organization Detai ls LastModified Time None Recorded Concern Status LastModified by Organization Details LastModified Time None Recorded Payers Encounter Date Sequence Insurance Name Policy Number Policy Salmon Covered Member ID Salmon Member ID Guarantor Name 10/20/2024 2 [facility] (MEDICAID) Lea Miramontes [id number] Lea Miramontes 10/20/2024 1 [place] - [facility] (MEDICARE) Lea Miramontes [id number] Lea Miramontes OBGyn Episode No OBEpisode recorded.
--- OUTSIDE RECORDS SUMMARY | 2024-11-10 15:29 | XMS_ITS | Referral Summary ---
Author Organization [facility] Address [address] [place] [address] Care Team Providers Care Metal Work Duct Installer Name Role Phone Sharon Vargas MD Primary Care Provider [phone] Encounters Date Type Department Care Team Description 10/27/2024 14:[address] [facility] Ophthalmology [facility] [address] [place] [address] Consuelo Nicole MD 10/21/[address] [facility] Pathology & Laboratory [address] [address] Outr Resulting Lab, Provider 10/21/[address] [facility] Pathology & Laboratory [address] [address] Outr Resulting Lab, Provider 10/20/[address] [facility] Nephrology - [address] [id number] Cherrie Fam MD Appointment Related; Follow-up 10/20/2024 Telephone [facility] NEPHROLOGY [address] [place] [address] Cherrie Fam MD Follow-up 10/07/[address] [facility] Pathology & Laboratory [address] [address] Outr Resulting Lab, Provider 10/06/[address] [facility] Pathology Laboratory [address] [address] Outr Resulting Lab, Provider from Last 3 [...] Description 12/22/2024 14:[address] [facility] Ophthalmology - [facility] [address] [place], [place] [address] Hung Harp MD [address] [facility], [facility] [address] [place] [address] 01/01/2025 8:[address] [facility] Nephrology [facility] [address] [place], [place] [address] Cherrie Fam MD 1 [facility], [facility] [address] [place] [phone] 03/28/2025 13:00 EDT Office Visit [address] [address] Consuelo Nicole MD [address] [place] [phone] Procedures Procedure Name Priority Date/Time Associated Diagnosis Comments OCT, RETINA - OU - BOTH EYES Routine 10/27/2024 16:51 EST Type 2 diabetes mellitus with both eyes affected by moderate nonproliferative retinopathy and macular edema, with long-term current use of insulin ([facility]) HOLD SST Today 10/20/2024 13:10 EST C3 COMPLEMENT Routine 10/20/2024 13:10 EST C4 COMPLEMENT Routine 10/20/2024 13:10 EST ANTI NUCLEAR AB (DEIDRE), IFA Routine 10/20/2024 13:10 EST HEPATITIS B CORE ANTIBODY (TOTAL) Today 10/20/2024 13:10 EST HEPATITIS B SURFACE ANTIGEN Today 10/20/2024 13:10 EST HEPATITIS A TOTAL ANTIBODY W REFLEX Today 10/20/2024 13:10 EST HCV RNA DETECT QUANT Routine 10/06/2024 14:00 EST URINE [id number]-WO-CXIYACK INE RATIO (ACR) Routine 10/16/2015 HEMOGLOBIN A1C Routine 05/28/2014 from Last 3 Months or Most Recently Relevant to Health Maintenance Results * OCT, RETINA - OU - BOTH EYES (10/27/2024 16:51 EST) Narrative [facility] OPHTHALMOLOGY - 10/27/2024 16:51 EST OCT macula Right: signal strength: 2/10, thickness 107 microns, normal foveal contour, no intra/subretinal fluid Left: signal strength: 2/10, thickness ??microns, normal foveal contour, no intra/subretinal fluid us Consuelo Nicole MD OPHTH TOMOGRAPHY Final Resu lt [facility] OPHTHALMOLOGY * HOLD SST (10/20/2024 13:10 EST) Hold Hold 10/21/2024 23:01 EST [facility] Blood VENOUS BLOOD / Unknown 10/20/2024 13:10 EST 10/21/2024 21:55 EST us Provider Outr Resulting Lab LAB INFO SERVICE AND SUPPORT & PHONE RESULT Final Result [facility] [address] [place] [address] * HEPATITIS A TOTAL ANTIBODY W REFLEX (10/20/2024 13:10 EST) Hepatitis A Antibody, Total Negative Negative 10/23/2024 11:22 EST [facility] Blood VENOUS BLOOD / Unknown 10/20/2024 13:10 EST 10/21/2024 21:55 EST Narrative [facility] - 10/23/2024 11:22 EST The result of this assay can be falsely elevated (Positive) due to the consumption of Biotin. us Provider Outr Resulting Lab CHEMISTRY & BLOOD GA S ORDERABLES Final Result Performing Organization Address [facility] Co de Phone Number [facility] [address] [place] [phone] * HEPATITIS B CORE ANTIBODY (TOTAL) (10/20/2024 13:10 EST) Hepatitis B Core Ab, Total Negative Negative 10/23/2024 11:41 EST [facility] Blood VENOUS BLOOD / Unknown 10/20/2024 13:10 EST 10/21/2024 21:55 EST us Provider Outr Resulting Lab CHEMISTRY & BLOOD GA S ORDERABLES Final Result Performing Organization Address [facility] Co de Phone Number [facility] [address] [place] [address] * HEPATITIS B SURFACE ANTIGEN (10/20/2024 13:10 EST) Hep B Surface Ag Negative Negative 10/23/2024 10:42 EST [facility] Blood VENOUS BLOOD / Unknown 10/20/2024 13:10 EST 10/21/2024 21:55 EST us Provider Outr Resulting Lab CHEMISTRY & BLOOD GA S ORDERABLES Final Result [facility] [address] [place] [address] * C3 COMPLEMENT (10/20/2024 13:10 EST) C3 Complement 151 81 - 157 mg/dL 10/23/2024 10:23 EST [facility] Blood VENOUS BLOOD / Unknown 10/20/2024 13:10 EST 10/21/2024 21:58 EST us Provider Outr Resulting Lab CHEMISTRY & BLOOD GA S ORDERABLES Final Result Performing Organization Address [facility]/ZIP Co de Phone Number [facility] [address] [place] [address] * C4 COMPLEMENT (10/20/2024 13:10 EST) Pathologist [facility] C4 Complement 28 13 - 39 mg/dL 10/23/2024 10:23 EST [facility] Blood VENOUS BLOOD / Unknown 10/20/2024 13:10 EST 10/21/2024 21:58 EST us Provider Outr Resulting Lab CHEMISTRY & BLOOD GA S ORDERABLES Final Result Performing Organization Address City/[facility] Co de Phone Number [facility] [address] [place] [address] * (ABNORMAL) ANTI NUCLEAR AB (DEIDRE), IFA (10/20/2024 13:10 EST) Pathologist [facility] DEIDRE Interpretation Positive(A) Negative 10/23/2024 14:43 EST [facility] Comment: For titers greater [...] Pattern 1 1:160 Speckled 10/23/2024 14:43 EST [facility] Blood VENOUS BLOOD / Unknown 10/20/2024 13:10 EST 10/21/2024 21:58 EST Narrative [facility] - 10/23/2024 14:43 EST Results were obtained with the CPXi NOVA Lite HEp-2 DEIDRE Kit by indirect immunofluorescence. us Provider Outr Resulting Lab IMMUNOLOGY AND SEROL OGY ORDERABLES Final Result Performing Organization Address City/[facility]/ZIP Co de Phone Number [facility] [address] [place], [place] [address] * (ABNORMAL) HCV RNA DETECT QUANT (10/06/2024 14:00 EST) Pathologist [facility] HCV RNA Qualitative Detected( A) Undetected 10/09/2024 11:37 EST [facility] HCV RNA Quantitative 2,950,000 (H) Undetected IU/mL 10/09/2024 11:37 EST [facility] Blood VENOUS BLOOD / Unknown 10/06/2024 14:00 EST 10/07/2024 22:18 EST Narrative [facility] - 10/09/2024 11:37 EST The quantification range of this assay is 15 IU/mL to 100,000,000 IU/mL. Testing was performed using the Jaron HCV test ([employer] with the jaron 6800 System. us Provider Outr Resulting Lab CHEMISTRY & BLOOD GA S ORDERABLES Final Result Performing Organization Address [facility] Co de Phone Number [facility] [address] [place] [phone] * ALBUMIN, URINE (10/16/2015) Pathologist [facility] Microalb ug/mg Crea, External 312.7 [facility] Microalb mg/dl, External 84.7 [facility] Creatinine, Random U (UCRR), External 27.09 [facility] Urine specimen (specimen) 10/16/2015 Sharon Vargas MD CHEMISTRY & BLOOD GAS ORDERABL ES Edited Result - Final [facility] * HEMOGLOBIN A1C (05/28/2014) Hemoglobin A1C, External 8.7 [facility] Est Avg Glucose, External [facility] Blood specimen (specimen) 05/28/2014 Sharon Vargas MD CHEMISTRY & BLOOD GAS ORDERABL ES Final Result [facility] from Last 3 Months or Most Recently Relevant to Health Maintenance Insurance [place] Sub[place] Plan / Payer (Ef fective 2023-Present) Name:Lea Vasquez Relation to Subscriber:Self Name:Lea Vasquezcriber ID:[id number] Payer ID:Not on file Group ID:Not on file Type:Medicaid [place] Address: [address] [place] [address] MEDICARE [place] Care Teams Metal Work Duct Installer Relationship Specialty Start Date End Date Sharon Vargas MD [address] [place] [address] [facility] - General 09/09/15
--- OUTSIDE RECORDS SUMMARY | 2024-11-10 15:29 | XMS_ITS | Encounter Summary ---
Author Organization [facility] Address [address] [place] [address] Care Team Providers Care Photo Manager Name Role Phone Sharon Vargas MD Primary Care Provider [phone] Reason for Visit * Reason Comments Eye Problem Encounter Details Date Type Department Care Team (Late st Contact Info) Description 03/16/2024 10:30 EDT Office Visit [facility] Ophthalmology - [address] [phone] Hung Harp MD 111 [facility], Level 5 [place] [address] Social History Tobacco Use Types [...] mg bevacizumab Route: intravitreal, Site: Right Eye [facility]: [id number], Lot: [id number], Expiration date: 03/17/2024 Post-op Post injection exam [...] edema, with long-term current use of insulin ([facility]) OCT, RETINA - OU - [...] Info) Description 12/22/2024 14:45 EST Office Visit [facility] Ophthalmology - [address] [phone] Hung Harp MD 111 [facility], Level 5 [place] [address] 01/01/2025 8:00 EDT Office Visit [facility] Nephrology - [address] [phone] Cherrie Fam MD 1 [facility], Level 2 [place] [address] 03/28/2025 13:00 EDT Office Visit [facility] Ophthalmology [address] [phone] Consuelo Nicole MD [address] [place] [phone] documented as of this encounter Procedures Procedure Name Priority Date/Time Associated Diagnosis Comments OCT, RETINA - OU - BOTH EYES Routine 03/16/2024 12:13 EDT Type 2 diabetes mellitus with both eyes affected by moderate nonproliferative retinopathy and macular edema, with long-term current use of insulin ([facility]) INTRAVITREAL INJECTION, PHARMACOLOGIC AGENT - OD - RIGHT EYE Routine 03/16/2024 12:04 EDT Type 2 diabetes mellitus with both eyes affected by moderate nonproliferative retinopathy and macular edema, with long-term current use of insulin ([facility]) documented in this encounter Results * OCT, RETINA - OU - BOTH EYES (03/16/2024 12:13 EDT) Narrative [facility] OPHTHALMOLOGY - 03/16/2024 12:13 EDT Right [...] MD OPHTH TOMOGRAPHY Edited Result - Final [facility] OPHTHALMOLOGY * INTRAVITREAL INJECTION, PHARMACOLOGIC AGENT - OD - RIGHT EYE (03/16/2024 12:04 EDT) Narrative [facility] POINT OF CARE - 03/16/2024 12:13 EDT Time Out 03/16/2024. 11:56. Confirmed correct patient, procedure, site, and patient consented. Anesthesia Topical anesthesia was used. Anesthetic medications included Proparacaine 0.5%, Tetracaine 0.5%. Procedure Preparation included 5% betadine to ocular surface, eyelid speculum. A 30 gauge needle was used. Injection: 1.25 mg bevacizumab ??Route: intravitreal, Site: Right Eye ??[facility]: [id number], Lot: [id number], Expiration date: 03/17/2024 Post-op Post injection exam found visual acuity of at least counting fingers. The patient tolerated the procedure well. There were no complications. The patient received written and verbal post procedure care education. Post injection medications were not given. Hung Harp MD OPHTH CLINIC PROCEDURES Final Re sult [facility] POINT OF CARE documented in this encounter Visit Diagnoses Diagnosis Type 2 diabetes mellitus with both eyes affected by moderate nonproliferative retinopathy and macular edema, with long-term current use of insulin (HCC-CMS)- Primary Combined forms of age-related cataract of [...] edema, with long-term current use of insulin ([facility]) Given 03/16/2024 12:13 EDT 1.25 [...] all 4 quadrants. No alireza Care Teams Photo Manager Relationship Specialty Start Date End Date Sharon Vargas MD [address] [place] [phone] PCP - General 09/09/15 documented as of this encounter
--- OUTSIDE RECORDS SUMMARY | 2024-11-10 15:29 | XMS_ITS | Encounter Summary ---
Author Organization [facility] Address [address] [place] [address] Care Team Providers Care Special Needs Librarian Name Role Phone Sharon Vargas MD Primary Care Provider [phone] Reason for Referral * Consult, Test and Treat (Routine) - Authorization Not Required Specialty Diagnoses / Procedures [facility]erred To Contact Ophthalmology Diagnoses Type 2 diabetes mellitus with both eyes affected by moderate nonproliferative retinopathy and macular edema, with long-term current use of insulin ([facility]) Consuelo Nicole MD [address] [place] [phone] Phone: tel: fax: Hung Harp MD 111 [facility] 5 [place] [address] Phone: tel: fax: Referral ID Status Reason Start Date Expiration Date Visits Requested Visits Authorized [id number] Authorization Not Required Specialty Services Required 5 [...] Info) Description 10/27/2024 14:15 EST Office Visit [facility] Ophthalmology - [place] [address] [place] [address] Consuelo Nicole MD [address] [place] [phone] Social History Tobacco Use Types Packs/Day Years [...] 03/28/2025 1 PM at our office [address] [place], [place] Your surgery date for your first [...] Endocrine: Diabetes Hematologic: NL Immunologic: Drug Allergy Transformer Builder: Exposures: None Other: Attestation: Base Eye Exam [...] far periphery Refraction Manifest Refraction Sphere Cylinder [place] Dist [place] Right -7.25 +2.00 150 NI Left -4.50 +0.75 040 20/200 Cycloplegic Refraction (Auto) Sphere Cylinder [place] Right -13.00 +2.75 010 Left -8.50 +1.25 090 Cycloplegic Refraction #2 Sphere Cylinder [place] Right Left -8.00 Sphere Cycloplegic Refraction Comments [...] Info) Description 12/22/2024 14:45 EST Office Visit [facility] Ophthalmology - [address] [phone] Hung Harp MD [address] [place] [address], Level 5 [place] [phone] 01/01/2025 8:00 EDT Office Visit [facility] Nephrology - [address] 815[address] Cherrie Fam MD 1 [facility], Level [address] [place] [address] 03/28/2025 13:00 EDT Office Visit [facility] Ophthalmology [facility] [address] [place] [address] Consuelo Nicole MD [address] [place] [address] Scheduled Referrals Name Type Priority Associated Diagnoses Orde r Schedule AMB CONS/FOLLOW UP OPHTHALMOLOGY Outpatient Referral Routine/Next Available Type 2 diabetes mellitus with both eyes affected by moderate nonproliferative retinopathy and macular edema, with long-term current use of insulin ([facility]) Expected: 01/25/2025 (Approximate) , Expires: 10/27/2025 documented as of this encounter Procedures Procedure Name Priority Date/Time Associated Diagnosis Comments OCT, RETINA - OU - BOTH EYES Routine 10/27/2024 16:51 EST Type 2 diabetes mellitus with both eyes affected by moderate nonproliferative retinopathy and macular edema, with long-term current use of insulin ([facility]) documented in this encounter Results * OCT, RETINA - OU - BOTH EYES (10/27/2024 16:51 EST) Narrative [facility] OPHTHALMOLOGY - 10/27/2024 16:51 EST OCT macula Right: signal strength: 2/10, thickness 107 microns, normal foveal contour, no intra/subretinal fluid Left: signal strength: 2/10, thickness ??microns, normal foveal contour, no intra/subretinal fluid us Consuelo Nicole MD OPHTH TOMOGRAPHY Final Resu lt [facility] OPHTHALMOLOGY documented in this encounter Visit Diagnoses Diagnosis Type 2 diabetes mellitus with both eyes affected by moderate nonproliferative retinopathy and macular edema, with long-term current use of insulin ([facility])- Primary Combined forms of age-related cataract of [...] and far periphery Manifest Refraction Sphere Cylinder [place] Dist VA Right eye -7.25 +2.00 150 NI Left eye -4.50 +0.75 040 20/200 Cycloplegic Refraction #1 (Auto) Sphere Cylinder [place] Right eye -13.00 +2.75 010 Left eye -8.50 +1.25 090 Cycloplegic Refraction #2 Sphere Cylinder [place] Right eye Left eye -8.00 Sphere Cycloplegic Refraction Comments C2 by MD- responses fluctuating during refraction likely due to dry eye, no clear improvement in subjective acuity when checked with and without phoropter. Care Teams Special Needs Librarian Relationship Specialty Start Date End Date Sharon Vargas MD [address] [place] [address] PCP - General 09/09/15 documented as of this encounter
--- OUTSIDE RECORDS SUMMARY | 2024-11-10 15:29 | XMS_ITS | Encounter Summary ---
Author Organization [facility] Address [address] [place] [address] Care Team Providers Care Catalog Specialist Name Role Phone Sharon Vargas MD Primary Care Provider Encounter Details Date Type Department Care Team (Late st Contact Info) Description 10/21/2024 Lab Requisition [facility] Pathology & Laboratory Medicine - [address] [address] Outr Resulting Lab, Provider Social History Tobacco [...] Info) Description 12/22/2024 14:45 EST Office Visit [facility] Ophthalmology - [address] [phone] Hung Harp MD 111 [facility], [address] [place] [phone] 01/01/2025 8:00 EDT Office Visit [facility] Nephrology - [address] [phone] Cherrie Fam MD 1 [facility], Level [address] [place] [phone] 03/28/2025 13:00 EDT Office Visit [facility] [address] [place] [address] Consuelo Nicole MD [address] [place] [phone] documented as of this encounter Procedures Procedure Name Priority Date/Time Associated Diagnosis Comments HOLD SST Today 10/20/2024 13:10 EST HEPATITIS A TOTAL ANTIBODY W REFLEX Today 10/20/2024 13:10 EST HEPATITIS B CORE ANTIBODY (TOTAL) Today 10/20/2024 13:10 EST HEPATITIS B SURFACE ANTIGEN Today 10/20/2024 13:10 EST documented in this encounter Results * HOLD SST (10/20/2024 13:10 EST) Hold Hold 10/21/2024 23:01 EST [facility] Blood VENOUS BLOOD / Unknown 10/20/2024 13:10 EST 10/21/2024 21:55 EST us Provider Outr Resulting Lab LAB INFO SERVICE AND SUPPORT & PHONE RESULT Final Result [facility] [address] [place] [id number] * HEPATITIS B CORE ANTIBODY (TOTAL) (10/20/2024 13:10 EST) Hepatitis B Core Ab, Total Negative Negative 10/23/2024 11:41 EST [facility] Blood VENOUS BLOOD / Unknown 10/20/2024 13:10 EST 10/21/2024 21:55 EST us Provider Outr Resulting Lab CHEMISTRY & BLOOD GA S ORDERABLES Final Result [facility] [address] [place] [address] * HEPATITIS B SURFACE ANTIGEN (10/20/2024 13:10 EST) Hep B Surface Ag Negative Negative 10/23/2024 10:42 EST [facility] Blood VENOUS BLOOD / Unknown 10/20/2024 13:10 EST 10/21/2024 21:55 EST us Provider Outr Resulting Lab CHEMISTRY & BLOOD GA S ORDERABLES Final Result Performing Organization Address [facility] Co de Phone Number [facility] [address] [place] [address] * HEPATITIS A TOTAL ANTIBODY W REFLEX (10/20/2024 13:10 EST) Hepatitis A Antibody, Total Negative Negative 10/23/2024 11:22 EST [facility] Blood VENOUS BLOOD / Unknown 10/20/2024 13:10 EST 10/21/2024 21:55 EST Narrative [facility] - 10/23/2024 11:22 EST The result of this assay can be falsely elevated (Positive) due to the consumption of Biotin. us Provider Outr Resulting Lab CHEMISTRY & BLOOD GA S ORDERABLES Final Result Performing Organization Address [facility] Co de Phone Number [facility] [address] [place] [address] documented in this encounter Visit Diagnoses Not on filedocumented in this encounter Care Teams Catalog Specialist Relationship Specialty Start Date End Date Sharon Vargas MD [address] [place] [phone] PCP - General 09/09/15 documented as of this encounter
--- OUTSIDE RECORDS SUMMARY | 2024-11-10 15:29 | XMS_ITS | Clinical Summary ---
Author Organization [facility] Address [address] [place] [address] Care Team Providers Care Care Director Rn Name Role Phone Sharon Vargas MD Primary Care Provider [phone] Allergies Active Allergy Reactions Criticality Noted Date [...] Team Description 10/27/2024 14:15 EST Office Visit [facility] Ophthalmology [address] [address] Consuelo Nicole MD 10/21/2024 Lab Requisition [facility] Pathology & Laboratory [address] [address] Outr Resulting Lab, Provider 10/21/2024 Lab Requisition [facility] Pathology & Laboratory [address] [address] Outr Resulting Lab, Provider 10/20/2024 Telephone [facility] Nephrology - [address] [address] Cherrie Fam MD Appointment Related; Follow-up 10/20/2024 Telephone [facility] NEPHROLOGY [address] [place] [address] Cherrie Fam MD Follow-up 10/07/2024 Lab Requisition [facility] Pathology & Laboratory [address] [address] Outr Resulting Lab, Provider 10/06/2024 Lab Requisition [facility] Pathology & Laboratory [address] [address] Outr Resulting Lab, Provider from Last 3 [...] 12/22/2024 14:45 EST Office Visit [facility] Ophthalmology - [facility] [address] [place], [place] [phone] Hung Harp MD 111 [facility], Level [address] [place] [address] 01/01/2025 8:00 EDT Office Visit [facility] Nephrology - [facility] 1 [place] [address] Cher[facility] F[facility] MD 1 [facility] 2 [place] [phone] 03/28/2025 13:00 EDT Office Visit [facility] Ophthalmology [address] [address] Consuelo Nicole MD [address] [place] [address] Health Maintenance Due Date Last Done Comments Foot Exam 1975 Lipid Profile Screening (Cholesterol) 1978 Pneumococcal Immunization (1 of 2 - PCV) 1981 Hepatitis B Vaccine (1 of 3 - 19+ 3-dose series) 1994 Hemoglobin A1C (Ha1C) 11/28/2014 05/28/2014 Microalbumin/Creatinine Ratio 10/16/2016 10/16/2015 Eye Exam 10/27/2025 10/27/2024, 02/17, 02/11/2024, Additional history exists COVID-19 Vaccine Completed 09/01/2024, , 11/04/2021, Additional history exists Hepatitis C Screen Completed 10/06/2024, 0 01/01/2023, 01/01/2023 Procedures Procedure Name Priority Date/Time Associated Diagnosis Comments OCT, RETINA - OU - BOTH EYES Routine 10/27/2024 16:51 EST Type 2 diabetes mellitus with both eyes affected by moderate nonproliferative retinopathy and macular edema, with long-term current use of insulin ([facility]) HOLD SST Today 10/20/2024 13:10 EST C3 COMPLEMENT Routine 10/20/2024 13:10 EST C4 COMPLEMENT Routine 10/20/2024 13:10 EST ANTI NUCLEAR AB (DEIDRE), IFA Routine 10/20/2024 13:10 EST HEPATITIS B CORE ANTIBODY (TOTAL) Today 10/20/2024 13:10 EST HEPATITIS B SURFACE ANTIGEN Today 10/20/2024 13:10 EST HEPATITIS A TOTAL ANTIBODY W REFLEX Today 10/20/2024 13:10 EST HCV RNA DETECT QUANT Routine 10/06/2024 14:00 EST URINE [id number] INE RATIO (ACR) Routine 10/16/2015 HEMOGLOBIN A1C Routine 05/28/2014 from Last 3 Months or Most Recently Relevant to Health Maintenance Results * OCT, RETINA - OU - BOTH EYES (10/27/2024 16:51 EST) Narrative [facility] OPHTHALMOLOGY - 10/27/2024 16:51 EST OCT macula Right: signal strength: 2/10, thickness 107 microns, normal foveal contour, no intra/subretinal fluid Left: signal strength: 2/10, thickness ??microns, normal foveal contour, no intra/subretinal fluid us Consuelo Nicole MD OPHTH TOMOGRAPHY Final Resu lt Performing Organization Address City/[facility]/ZIP Co de Phone Number [facility] OPHTHALMOLOGY * HOLD SST (10/20/2024 13:10 EST) Hold Hold 10/21/2024 23:01 EST [facility] Blood VENOUS BLOOD / Unknown 10/20/2024 13:10 EST 10/21/2024 21:55 EST us Provider Outr Resulting Lab LAB INFO SERVICE AND SUPPORT & PHONE RESULT Final Result Performing Organization Address [facility] Co de Phone Number [facility] [address] [place], [place] [id number] * HEPATITIS A TOTAL ANTIBODY W REFLEX (10/20/2024 13:10 EST) Hepatitis A Antibody, Total Negative Negative 10/23/2024 11:22 EST [facility] Blood VENOUS BLOOD / Unknown 10/20/2024 13:10 EST 10/21/2024 21:55 EST Narrative [facility] - 10/23/2024 11:22 EST The result of this assay can be falsely elevated (Positive) due to the consumption of Biotin. us Provider Outr Resulting Lab CHEMISTRY & BLOOD GA S ORDERABLES Final Result Performing Organization Address [facility]/ZIP Co de Phone Number [facility] [address] [place] [address] * HEPATITIS B CORE ANTIBODY (TOTAL) (10/20/2024 13:10 EST) Hepatitis B Core Ab, Total Negative Negative 10/23/2024 11:41 EST [facility] Blood VENOUS BLOOD / Unknown 10/20/2024 13:10 EST 10/21/2024 21:55 EST us Provider Outr Resulting Lab CHEMISTRY & BLOOD GA S ORDERABLES Final Result [facility] [address] [place] [address] * HEPATITIS B SURFACE ANTIGEN (10/20/2024 13:10 EST) Hep B Surface Ag Negative Negative 10/23/2024 10:42 EST [facility] Blood VENOUS BLOOD / Unknown 10/20/2024 13:10 EST 10/21/2024 21:55 EST us Provider Outr Resulting Lab CHEMISTRY & BLOOD GA S ORDERABLES Final Result Performing Organization Address [facility] Co de Phone Number [facility] [address] [place] [address] * C3 COMPLEMENT (10/20/2024 13:10 EST) C3 Complement 151 81 - 157 mg/dL 10/23/2024 10:23 EST [facility] Blood VENOUS BLOOD / Unknown 10/20/2024 13:10 EST 10/21/2024 21:58 EST us Provider Outr Resulting Lab CHEMISTRY & BLOOD GA S ORDERABLES Final Result Performing Organization Address City/[facility]/ZIP Co de Phone Number [facility] [address] [place] [address] * C4 COMPLEMENT (10/20/2024 13:10 EST) C4 Complement 28 13 - 39 mg/dL 10/23/2024 10:23 EST [facility] Blood VENOUS BLOOD / Unknown 10/20/2024 13:10 EST 10/21/2024 21:58 EST us Provider Outr Resulting Lab CHEMISTRY & BLOOD GA S ORDERABLES Final Result [facility] [address] [place] [address] * (ABNORMAL) ANTI NUCLEAR AB (DEIDRE), IFA (10/20/2024 13:10 EST) Pathologist [facility] DEIDRE Interpretation Positive(A) Negative 10/23/2024 14:43 EST [facility] Comment: For titers greater [...] Pattern 1 1:160 Speckled 10/23/2024 14:43 EST [facility] Blood VENOUS BLOOD / Unknown 10/20/2024 13:10 EST 10/21/2024 21:58 EST [facility] LABORATORY SERVICES - 10/23/2024 14:43 EST Results were obtained with the Sense[employer]fen NOVA Lite HEp-2 DEIDRE Kit by indirect immunofluorescence. us Provider Outr Resulting Lab IMMUNOLOGY AND SEROL OGY ORDERABLES Final Result Performing Organization Address City/State/[facility] Co de Phone Number [facility] [address] [place] [address] * (ABNORMAL) HCV RNA DETECT QUANT (10/06/2024 14:00 EST) Pathologist [facility] HCV RNA Qualitative Detected( A) Undetected 10/09/2024 11:37 EST [facility] HCV RNA Quantitative 2,950,000 (H) Undetected IU/mL 10/09/2024 11:37 EST [facility] Blood VENOUS BLOOD / Unknown 10/06/2024 14:00 EST 10/07/2024 22:18 EST [facility] LABORATORY SERVICES - 10/09/2024 11:37 EST The quantification range of this assay is 15 IU/mL to 100,000,000 IU/mL. Testing was performed using the Jaron HCV test ([employer] with the jaron [id number] System. us Provider Outr Resulting Lab CHEMISTRY & BLOOD GA S ORDERABLES Final Result [facility] [address] [place] [address] * ALBUMIN, URINE (10/16/2015) Microalb ug/mg Crea, External 312.7 [facility] Microalb mg/dl, External 84.7 [facility] Creatinine, Random U (UCRR), External 27.09 [facility] Urine specimen (specimen) 10/16/2015 Sharon Vargas MD CHEMISTRY & BLOOD GAS ORDERABL ES Edited Result - Final Performing Organization Address City/[facility]/ZIP Co de Phone Number [facility] * HEMOGLOBIN A1C (05/28/2014) Hemoglobin A1C, External 8.7 [facility] Est Avg Glucose, External [facility] Blood specimen (specimen) 05/28/2014 Sharon Vargas MD CHEMISTRY & BLOOD GAS ORDERABL ES Final Result Performing Organization Address City/[facility]/ZIP Co de Phone Number [facility] from Last 3 Months or Most Recently Relevant to Health Maintenance [place] Care Teams Care Director Rn Relationship Specialty Start Date End Date Sharon Vargas MD [address] [place] [address] PCP - General 09/09/15
--- OUTSIDE RECORDS SUMMARY | 2024-11-10 15:29 | XMS_ITS | Encounter Summary ---
Author Organization [facility] Address [address] [place] [address] Care Team Providers Care Cigar Maker Name Role Phone Sharon Vargas MD Primary Care Provider [phone] Reason for Visit * Reason Onset Date Comments Follow-up 10/20/2024 Encounter Details Date Type Department Care Team (Late st Contact Info) Description 10/20/2024 Telephone [facility] [address], [place] [id number] Cherrie Fam MD [address] [place] [address], [address] [place] [phone] Follow-up Social History Tobacco Use Types Packs/Day [...] Encounter - Cherrie Fam MD - 10/20/2024 1420 EST Phone conversation with primary care provider at [facility]. Worsened kidney failure after 18 months' testing. Past medical history include chronic kidney disease, chronic Hepatitis C, cirrhosis, poorly controlled diabetes mellitus and proteinuria who was treated at [facility] recently and labs showed creatinine of [...] versus uncontrolled diabetes mellitus. Tests recommended include EDIDRE, C3 and C4 complements, ANCA, PT INR, [...] Info) Description 12/22/2024 14:45 EST Office Visit [facility] Ophthalmology [address] [id number] Hung Harp MD 111 [facility], [address] [place] [phone] 01/01/2025 8:00 EDT Office Visit [facility] Nephrology - [address] [address] Cherrie Fam MD 1 [facility], [facility] 2 [place] [phone] 03/28/2025 13:00 EDT Office Visit [facility] Ophthalmology [facility] [address] [place], [place] [address] Consuelo Nicole MD [address] [place] [phone] documented as of this encounter Visit Diagnoses Not on filedocumented in this encounter Care Teams Cigar Maker Relationship Specialty Start Date End Date Sharon Vargas MD 4 [facility] [place] [phone] PCP - General 09/09/15 documented as of this encounter
--- OUTSIDE RECORDS SUMMARY | 2024-11-10 15:29 | XMS_ITS | Encounter Summary ---
Author Organization [facility] Address [address] [place] [address] Care Team Providers Care Quantitative Strategy Analyst Name Role Phone Sharon Vargas MD Primary Care Provider Encounter Details Date Type Department Care Team (Late Contact Info) Description 02/24/2024 Orders Only [facility] Ophthalmology [facility] [address] [place], [place] [phone] Consuelo Nicole MD [address] [place] [phone] Combined forms of age-related cataract [...] Department Care Team (Late Contact Info) Description 12/22/2024 14:45 EST Office Visit [facility] Ophthalmology - [facility] [address] [place], [place] [phone] Hung Harp MD 111 [facility], [address] [place] [address] 01/01/2025 8:00 EDT Office Visit [facility] Nephrology - [address] [phone] Cherrie Fam MD 1 [facility], [address] [place] [phone] 03/28/2025 13:00 EDT Office Visit [facility] Ophthalmology [facility] [address] [place] [address] Consuelo Nicole MD [address] [place] [phone] documented as of this encounter Visit Diagnoses Diagnosis Combined forms of age-related cataract of right eye- Primary Other and combined forms of senile cataract documented in this encounter Care Teams Quantitative Strategy Analyst Relationship Specialty Start Date End Date Sharon Vargas MD [address] [place] [phone] PCP - General 09/09/15 documented as of this encounter
--- OUTSIDE RECORDS SUMMARY | 2024-11-10 15:29 | XMS_ITS | Encounter Summary ---
Author Organization [facility] Address [address] [place] [address] Care Team Providers Care Dip Painter Name Role Phone Sharon Henderson MD Primary Care Provider [phone] Reason for Visit * Reason Onset Date Comments Appointment Related 10/20/2024 Follow-up 10/20/2024 Encounter Details Date Type Department Care Team (Late st Contact Info) Description 10/20/2024 Telephone [facility] Nephrology - [address] [address] Cherrie Fam MD [address] [place] [address], [address] [place] [phone] Appointment Related; Follow-up Social History Tobacco Use [...] Encounter - Cherrie Fam MD - 11/03/2024 2868 EST Summary of progress note dated 10/19/2024: [...] is 158/82SHARON HENDERSON MD [address], [place], [address], [facility].10/19/2024 17:05:17 * Telephone Encounter - Gildardo Shay - 10/24/2024 5728 EST 3rd attempt to schedule no answer [...] Info) Description 12/22/2024 14:45 EST Office Visit [facility] Ophthalmology [facility] [address] [place], [place] [address] Hung Harp MD 111 [facility], [address] [place] [phone] 01/01/2025 8:00 EDT Office Visit [facility] Nephrology [facility] 1 [place], [place] [address] Cherrie Fam MD 1 [facility], [facility] [address] [place] [phone] 03/28/2025 13:00 EDT Office Visit [facility] [address] [place] [address] Consuelo Nicole MD [address] [place] [phone] documented as of this encounter Visit Diagnoses Not on filedocumented in this encounter Care Teams Dip Painter Relationship Specialty Start Date End Date Sharon Henderson MD [address] [place] [phone] PCP - General 09/09/15 documented as of this encounter
--- OUTSIDE RECORDS SUMMARY | 2024-11-10 15:29 | XMS_ITS | Continuity of Care Document ---
Author Organization [facility] Address [address] [place] [address] Care Team Providers Care Scrap Bunch Maker Name Role Phone [facility] Ophtha lmologist RACHELL FIORE Die Maker Assessment Encounter Date Assessment Date Assessment LastModified by Organization Details LastModified Time 10/19/2024 10/19/2024 The total time devoted to today's encounter, including both the eaup-cn-eafj time with the patient and/or family/caregi crow and ntw-lvon-bl-f shantell time I personally spent is 120 minutes. [email or web address] Not available 10/19/2024 17:04:21 Plan of Treatment Reminders Order Date Submit Date Provider Last Modified By Organization Details Last Modified Time Details Appointments Follow Up 2024 01:50P Roly HENDERSON Not available Not available Not available Follow Up 2024 02:30P Roly HENDERSON Not available Not available Not available Lab venipunct ure 2024 025 [email or web address] [facility] (Registration ), [address] [place] [address] [place], [address], 10/26/2024 06:45:14 Referral nephrolog ist referral - thank you for agreeing to see her soon. labs and renal u/s have been ordered and hope to have results to you soon. new dx stage 5 CKD. 2024 025 [email or web address] Rachell Fiore MD, [address] [place], [address], 11/10/2024 14:38:54 Procedures None recorded. Surgeries None recorded. Imaging US, kidney - CHELSEA; pt with stage 5 CKD, need to prepare for possible dialysis. cc results to Dr. Fiore, [facility] nephrolog y 2024 025 [email or web address] [facility] - Radiology, [address] [facility], [place], [address], 11/03/2024 15:52:53 Medication Orders None recorded. Patient TargetsNo targets recorded. Patient Instructions Encounter Date Encounter Id Patient Instructions Last Modified By Organization Details Last Modified Time 10/19/2024 [id number] Dear Lea, Thank you for coming in [...] Best regards, Sharon Henderson MD Family Medicine [email or web address] Not available 10/19/2024 15:22:00 Reason for Referral Die Maker Referral for Re nal failure syndrome thank you for agreeing to see her soon. labs and renal u/s have been ordered and hope to have results to you soon. new dx stage 5 CKD. Referring Physician: Sharon Henderson Family Medicine, Encounter Date: 10/19/2024 Results Created Date Observation Date Name Description Value Unit Range Abnormal Flag Note LastModifiedBy Organization Detail LastModifiedTime 10/07/20 24 10/07/2024 CT ABD pelvi s wo IV or oral contr ast [facility] RADIOL OGY Mark Jeff santamaria [id number] RADIOL OGY TRANSC RIPTIO N REPORT _ Patien t Name: FARAZ BUCKLEY,ERROL BYERS B MRN: Sex: : Age: [id number] F [id number] Accoun t: Access ion: Admit: StayTy pe: [id number] 2023 E Ordere d: Order ID: Submit curtis: Orderi ayanna Flood er: 2023 14:14 [id number] CAROLINA MCINTOSH Comple curtis: Techno logist : [...] t. If you are a health care [facility] and have any questi ons regard ing this report , please contac t the number below. For patien ts who have questi ons please contac t the [facility] care [facility] that reques curtis your imagin g first. Electr onical ly signed by: Júnior Vick MD Radiol jimmy schaefer ([phone]), at 2023 3:51 PM INTERFACE [facility] (Lab) [address] [place] [address], [address], 10/07/2024 15:57:10 11/01/19 25 11/01/2024 xr chest tiffany ble or 1V [facility] RADIOL OGY Hettick Jeff santamaria [id number] RADIOL OGY TRANSC RIPTIO N REPORT _ Patien t Name: FARAZ BUCKLEY,ERROL BYERS B MRN: Sex: : Age: [id number] F [age] Accoun t: Access ion: Admit: StayTy pe: [id number] Katherin vaughn: Order ID: Submit curtis: Rosetta urena Provid er: 2024 01:40 [id number] ABBI JALLOH curtis: Techno logist : Result [...] t. If you are a health care [facility] and have any questi ons regard ing this report , please contac t the number below. For patien ts who have questi ons please contac t the health care [facility] that reques curtis your imagin g first. Electr onical ly signed by: Lala Patel MD Radiol jimmy schaefer ([phone]), at 025 2:13 AM INTERFACE [facility] (Lab) [address] [place] [address], [address], 11/01/2024 02:19:02 11/02/19 25 11/01/2024 EKG order jude ng 12 [facility] Jeff Mchugh [id number] EKG TRANSC RIPTIO N REPORT _ Accoun t: Access ion: Admit: StayTy pe: [id number] 025 E/R Observ ation: Order ID: Submit curtis: Rosetta urena Provid er: 2024 02:16 [id number] ABBI JALLOH _ [place] [id number] [facility]: [facility]-01 Pat Name: ABELINO Schaefer MELONIEYoanna MS Depart ment: Burak eugene ID: [id number] Room: Gender : F Techntrey emir: : 01-03 Reques curtis By: ABBI Reynoso Order Number : [id number] Charbel junior MD: Gentry Finney Measur ements Interv als [place] Rate: 104 P: 76 OK: 176 QRS: -32 QRSD: 96 T: 0 QT: 370 QTc: 486 Interp retive Statem ents Sinus tachyc ardia Left axis deviat ion Compar ed to ECG 2022 05:17: 21 Left-a xis deviat ion now presen t Sinus rhythm no longer presen t Electr onical ly Signed On 025 8:26:2 3 EST by Gentry Finney INTERFACE [facility] (Lab) [address] [place] [address], [address], 11/02/2024 08:28:22 11/02/19 25 11/01/2024 CT chest wo contr [facility] [place] [id number] RADIOL OGY TRANSC RIPTIAbundio N REPORT _ Patien t Name: ERROL RUTH MS MRN: Sex: : Age: [id number] F [age] Accoun t: Access ion: Admit: StayTy pe: [id number] 025 I Ordere d: Order ID: Submit curtis: Ordertrey Flood er: 2024 08:54 [id number] CLIVE BONNER curtis: Techno logist : Result [...] signed by: Jose Lopez MD Radiol jimmy schaefer ([phone]), at 025 9:30 AM INTERFACE [facility] (Lab) [address] [place] [address], [address], 11/02/2024 09:37:40 11/02/19 25 11/02/2024 nm lung venti latio n and perfu ronan* [facility] RADIOL OGY Hettick Jeff santamaria t [id number] RADIOL OGY TRANSC RIPTIO N REPORT _ Patimichael t Name: ERROL RUTH MS PAYTONSIERRA Kaminski MRN: Sex: : Age: [id number] F [age] Accoun t: Access ion: Admit: StayTy pe: [id number] 025 I Ammon d: Order ID: Submit curtis: Rosetta urena Provid er: 2024 14:46 [id number] GARTH NORWOOD curtis: Techno logist : Result [...] were obtain ed in the anteri or, i&c technician ior, latera l and obliqu e projec tions. This was follow ed by bahman rider admini strati on of 4 mCi of [...] t. If you are a health care [facility] and have any questi ons regard ing this report , please contac t the number below. For patien ts who have questi ons please contac t the health care profes sional that reques curtis your imagin g first. Electr onical ly signed by: Júnior Vick MD Radiol jimmy schaefer ([phone]), at 025 11:46 AM [facility] (Lab) [address] [place] [address], [address], 11/02/2024 11:53:05 Result Notes None recorded. Problems Name Problem SNOMED Code Status Onset Date Resolution Date Notes Provider Name and Address Organization Details Recorded Time Complica tion due to diabetes mellitus 63995826 Active [address], [facility] [address] , [facility] 14:41:01 Gastroes ophageal reflux disease without esophagi tis 174705458 Active [address], [facility] [address] , [facility] 15:41:02 Sleep apnea 14161433 Active [address], [address] 15:41:33 Dyspnea on exertion 85481962 Active [address], [place] [address] , [facility] 16:02:44 Smoker 27209455 Active [address], [place] [address] , [facility] 16:03:44 Legal blindnes s 84828230 Active [address], [place], [address] , [facility] 16:04:00 Toenail thickene d 030873526 Active [address], [place], [address] , [facility] 16:07:44 Pruritic rash 53749387 Active [address], [place], [address] , [facility] 16:09:31 Retroper itoneal lymphade nopathy 967605608 Active 2023 burak MIRAMONTES RN null, [facility] 5 12:10:08 Renal failure syndrome 32588830 Active 2023 burak MIRAMONTES RN null, [facility] 5 12:10:41 Acute exacerba tion of chronic obstruct vishnu pulmonar y disease 001068356 Active 2024 SHARON HENDERSON MD [address], [place], [address] , [facility] 5 15:11:03 Acute renal insuffic iency 113383141 Active 2024 SHARON HENDERSON MD [address], [place], [address] , [facility] 5 16:57:59 Chronic kidney disease stage 5 807090173 Active [address], [place], [address] , [facility] 5 11:20:54 Essentia l hyperten ronan 64486663 Active 2005 [facility] 4 09:53:15 Hyperlip idemia 91469747 Active 2005 [facility] 4 10:08:20 Uncompli cated moderate persiste nt asthma 445254093 Active 2005 [facility] 4 10:24:46 Severe obesity 47618770933 104 Active 2005 [facility] 4 10:22:09 Chronic hepatiti s C 976158555 Active 2003 pos viral load not treated [facility] 4 09:47:44 Pain of right shoulder joint 05304963214 204664 Active 2014 Kristie Peters [facility] 4 10:17:43 Neuropat hy due to type 2 diabetes mellitus 14543128552 9106 Active 2014 uncontro lled, w/neurol o comps [facility] 4 10:17:28 Idiopath ic osteoart hritis 708258437 Active 2014 DJD, knees, bilatera l [facility] 4 10:08:49 Renal disorder due to type 2 diabetes mellitus 544964653 Active 2015 Diabetic nephropa thy [facility] 4 10:21:57 Derangem ent of right knee 52811567831 340587 Completed 201505/05/2016 Problem Code: M23.91; Problem Code Type: ICD-10; Not Available [facility] 3 04:12:16 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 15675246439 9104 Active 2015 (not billable after 6) [facility] 10:16[facility]21 Cocaine abuse 28684457 Active 2016 episodic [facility] 4 09:50:22 Tobacco use cessatio n educatio n Active 2016 [facility] 4 10:22:41 Gallblad mark calculus with acute cholecys titis and no obstruct ion 160050800 Completed 201612/29/2016 Problem Code: K80.00; Problem Code Type: ICD-10; Not Available [facility] 3 04:12:17 Acute asthma 630848652 Completed 201604/13/2017 Problem Code: J45.901; Problem Code Type: ICD-10; Not Available [facility] 3 04:12:17 Cellulit is 265498974 Completed 201607/16/2017 Problem Code: L03.90; Problem Code Type: ICD-10; Not Available [facility] 3 04:12:17 Atopic dermatit is 79385125 Active 2017 Kristie Fran [facility], [facility]. 4 09:45:01 Impetigo 85566974 Completed 201705/03/2018 Problem Code: L01.00; Problem Code Type: ICD-10; Not Available [facility] 3 04:12:17 Screenin g mammogra phy Completed 201804/20/2019 Problem Code: Z12.31; Problem Code Type: ICD-10; Not Available [facility] 3 04:12:18 History of diabetic foot ulcer 19149869283 473273 Active 2018 [facility], [facility] 4 10:01:51 Chronic obstruct vishnu pulmonar y disease 99074723 Active 2018 Asthma with COPD [facility], [facility] 4 09:48:31 Anemia 041288288 Active 2018 [facility] 4 09:39:01 Albumin level - finding 532501574 Active 2018 decrease d [facility]. 4 09:37:16 Peripher al venous insuffic iency 89935667 Active 2018 Stasis ulcer [facility], [facility] 4 10:18:18 Cough 82331377 Completed 201908/22/2020 Problem Code: R05; Problem Code Type: ICD-10; Not Available [facility] 3 04:12:19 Endocrin e/metabo lic screenin g Completed 202012/28/2020 Problem Code: Z13.29; Problem Code Type: ICD-10; Not Available [facility] 3 04:12:19 Counseli ng Active 2020 Immuniza tion counseli ng [facility] 4 09:51:24 Generali zed anxiety disorder 63023124 Active 2020 [facility] 4 10:01:19 Vomiting 177930366 Completed 202006/26/2021 Problem Code: R11.10; Problem Code Type: ICD-10; Not Available [facility] 3 04:12:19 Insect bite Completed 202007/09/2021 Not Available [facility] 3 04:12:20 Cirrhosi s of liver 19770613 Active 2022 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 with possible contribu tion of [place], decompen sated [facility] 4 09:49:47 Jaundice 91633419 Active 2022 [facility] 4 10:09:01 Muscle weakness 42638822 Active 2022 (general ized) [facility] 4 10:16:46 Opioid abuse 8200580 Completed 202209/28/2023 Problem Code: F11.10; Problem Code Type: ICD-10; Not Available [facility] 4 05:34:22 Lichen simplex chronicu s 07331835 Active 2022 Neuroder matitis [facility] 4 10:10:12 History of osteomye litis 354324001 Active 2022 [facility] 4 10:05:22 Opioid abuse 3211115 Completed 201807/14/2023 03/04/20 21 - Comments only - Sharon Henderson MD - offered scg for OBT but she states she plans to try to establis h tx thru [facility]. Not interest ed in Suboxone or Vivitrol ; might be interest ed in Sublocad e. Problem Code: F11.10; Problem Code Type: ICD-10; Not Available [facility] 3 04:12:22 Cholelit hiasis without obstruct ion 73676644 Completed 201512/22/2016 Problem Code: K80.20; Problem Code Type: ICD-10; Not Available [facility] 3 04:12:22 Candidia sis of vagina 16861935 Completed 201503/27/2016 Problem Code: B37.3; Problem Code Type: ICD-10; Not Available [facility] 3 04:12:23 Traumati c or non-trau matic injury 922889487 Completed 201607/14/2023 Problem Code: T14.8; Problem Code Type: ICD-10; Not Available [facility] 3 04:12:23 Disorder of teeth AND/OR supporti [facility] es 349059680 Completed 201503/17/2016 Problem Code: K08.8; Problem Code Type: ICD-10; Not Available [facility] 3 04:12:23 Uncompli cated asthma 687441427 Completed 200507/14/2023 Problem Code: J45.909; Problem Code Type: ICD-10; Not Available [facility] 3 04:12:23 Hyperten sive disorder 98709208 Completed 200507/14/2023 Not Available [facility] 3 04:12:24 Scar conditio ns and fibrosis of skin 015272816 Completed 201604/23/2017 Problem Code: L90.5; Problem Code Type: ICD-10; Not Available [facility] 3 04:12:24 Human papillom a virus infectio n 276026360 Completed 201607/14/2023 Problem Code: B97.7; Problem Code Type: ICD-10; Not Available [facility] 3 04:12:24 Morbid obesity 624399984 Completed 200507/14/2023 Not Available [facility] 3 04:12:24 Foot ulcer due to type 2 diabetes mellitus 46422165195 00 Completed 201512/22/2016 01/20/20 19 - Comments [...] E11.621; Problem Code Type: ICD-10; Kristie rivera [facility] 4 09:59:50 Periapic al abscess 123275795 Completed 201403/17/2016 Problem Code: K04.7; Problem Code Type: ICD-10; Not Available [facility] 3 04:12:25 Drug abuse 51075253 Completed 200707/14/2023 Problem Code: 305.90; Problem Code Type: ICD-9; Not Available [facility] 3 04:12:25 Opioid dependen ce in remissio n 097988377 Completed 201807/14/2023 09/26/20 19 - Comments only [...] F11.21; Problem Code Type: ICD-10; Not Available [facility] 3 04:12:25 Gynecolo gic examinat ion Completed 201602/02/2017 Problem Code: Z01.419; Problem Code Type: ICD-10; Not Available [facility] 3 04:12:26 Nodule on toe 340288322 Completed 201605/25/2019 Not Available [facility] 3 04:12:26 Pain of right knee joint 77649344756 4100 Completed 201502/02/2017 Problem Code: M25.561; Problem Code Type: ICD-10; Not Available [facility] 3 04:12:26 Candidia sis of skin 96590387 Completed 201503/27/2016 Problem Code: B37.2; Problem Code Type: ICD-10; Not Available [facility] 3 04:12:26 Dysuria 19817591 Completed 201505/07/2016 Problem Code: R30.0; Problem Code Type: ICD-10; Not Available [facility] 3 04:12:27 Retinopa thy due to type 2 diabetes mellitus 654008234 Completed 201507/14/2023 Problem Code: E11.319; Problem Code Type: ICD-10; Not Available [facility] 3 04:12:27 Infectio n of skin and/or subcutan eous tissue 82960596 Completed 202204/30/2023 Problem Code: L08.89; Problem Code Type: ICD-10; Not Available [facility] 3 04:12:27 Tobacco dependen ce caused by cigarett es 41371565112 753025 Completed 200305/25/2019 Problem Code: F17.210; Problem Code Type: ICD-10; Not Available [facility] 3 04:12:27 Opioid dependen ce 77823871 Completed 200309/04/2015 05/25/20 19 - Comments only - Alexandro Grewal - Doing well in treatmen t at [facility]. Problem Code: F11.20; Problem Code Type: ICD-10; Not Available [facility] 3 04:12:28 Asthma 239873882 Completed 200507/14/2023 Not Available [facility] 3 04:12:28 Pain of joint of knee 7818830579 Completed 201407/14/2023 Problem Code: M25.569; Problem Code Type: ICD-10; Not Available [facility] 3 04:12:28 Cellulit is of right lower limb 67636194485 809495 Completed 201805/25/2019 Problem Code: L03.115; Problem Code Type: ICD-10; Not Available [facility] 3 04:12:28 Shoulder joint pain 885154517 Completed 201407/14/2023 Problem Code: 719.41; Problem Code Type: ICD-9; Not Available [facility] 3 04:12:29 Smoker 88013267 Completed 200307/14/2023 SHARON HENDERSON MD [address], [place], [address] , [facility] 4 16:03:44 Chronic ulcer of foot 828510373 Completed 201601/05/2017 Problem Code: L97.529; Problem Code Type: ICD-10; Not Available [facility] 3 04:12:29 Type 2 diabetes mellitus without complica tion 837254594 Completed 200307/14/2023 Problem Code: 250.00; Problem Code Type: ICD-9; MD Shailesh BOL[address]AR Dr, [facility] [address] , [facility] 4 14:43:16 Pain of left knee joint 55128212544 4107 Completed 201407/14/2023 Problem Code: M25.562; Problem Code Type: ICD-10; Not Available [facility] 3 04:12:30 Depressi ve disorder 47942065 Completed 200307/14/[address], [facility] [address] , [facility] 4 14:41:17 Hypergly cemia due to type 2 diabetes mellitus 82425771350 9109 Completed 200309/04/2015 Problem Code: E11.65; Problem Code Type: ICD-10; Not Available [facility] 3 04:12:30 Chest pain 64046838 Completed 201605/25/2019 Problem Code: R07.89; Problem Code Type: ICD-10; Not Available [facility] 3 04:12:31 Drug dependen ce 753798039 Completed 200307/14/2023 Problem Code: 304; Problem Code Type: ICD-9; Not Available [facility] 3 04:12:31 Cellulit is of toe of right foot 09407295794 362568 Completed 201505/11/2016 Problem Code: L03.031; Problem Code Type: ICD-10; Not Available [facility] 3 04:12:31 Osteoart hritis of knee 257799570 Completed 201402/02/2017 Problem Code: M17.9; Problem Code Type: ICD-10; Not Available [facility] 3 04:12:32 History of infectio us disease 112768715 Completed 201409/04/2015 Problem Code: Z86.19; Problem Code Type: ICD-10; Kristie rivera [facility] 4 10:05:01 Tobacco user 270808789 Completed 200508/06/2015 Not Available [facility] 3 04:12:32 Viral screenin g Completed 202209/10/2023 Problem Code: Z11.52; Problem Code Type: ICD-10; Not Available [facility] 4 05:34:15 Acute upper respirat ory infectio n 47069858 Completed 202208/18/2023 Problem Code: J06.9; Problem Code Type: ICD-10; Not Available [facility] 4 05:34:15 Type 2 diabetes mellitus without complica tion 215801018 Completed 202309/01/2024 Problem Code: 250.00; Problem Code Type: ICD-9; SHARON HENDERSON MD [address], [place], [address] , [facility] 4 14:43:16 Asthma-c hronic obstruct vishnu pulmonar y disease overlap syndrome 38855305367 202609 Active 2023 [facility] 4 09:39:21 Decompen sated cirrhosi s of liver 199795471 Active 2023 Child Bourgeois score 8/Class B as of 12/2022 [facility] 4 09:51:34 Visual impairme nt 112914374 Active 2023 [facility] 4 10:29:20 Thickene d nails 206742794 Active 2023 [facility] 4 10:22:14 Thickeni ng of skin 81140929 Completed 202309/01/2024 SHARON HENDERSON MD [facility] [address], [place], [address] [facility] 4 14:43:15 Acquired hammer toes of bilatera l feet 60219666485 488304 Active 2023 [facility] 4 09:37:02 History of amputati on of right foot 84966329399 360773 Active 2023 [facility] 4 10:01:25 Combined form of senile cataract 48555088 Active 2023 [facility] 4 09:50:32 Unintent ional weight loss 140765940 Active 2022 [facility] 4 10:24:46 History of amputati on of lesser toe 402201545 Active 2022 [facility] 4 09:38:36 History of intraven ous drug abuse 77070771082 478691 Active 2007 heroin [facility] 4 09:40:14 Left ventricu lar hypertro phy 47175474 Active 2015 mild concentr ic 12/31 echo (nl EF) [facility] 4 09:47:08 Follicul itis 31609187 Active 2022 [facility] 4 09:52:22 Peripher al edema 783883518 Active 2014 [facility] 4 09:52:55 Mild persiste nt asthma 351054807 Active 2022 with acute exacerba tion [facility] 4 09:54:28 Family history of Alzheime r's disease 677615479 Active 2018 mother age 50, maternal grandmot her, maternal aunts and uncles; no genetic testing done [facility] 4 09:56:26 Diabetic foot ulcer 382696998 Active 2022 [facility] 4 09:59:46 History of cholecys tectomy 824650135 Active 2016 laparosc opic, 01/01 [facility] 4 10:00:55 History of human papillom a virus infectio n 91494207156 9102 Active 01/01; nl pap; neg colpo 04/03 incl ECC; neg pap 11/05; 5 yr f/u [facility] 4 10:04:56 History of opioid abuse 69182547739 9100 Active 2018 Hx of opioid abuse -- [facility] resumed suboxone 09/07 [facility] 4 10:08:01 Juvenal 414862052 Active 2015 s/p complete extr due to advanced caries 03/02 [facility] 4 10:13:37 Major depressi ve disorder 053269609 Active 2022 Major depressi on [facility] 4 10:15:28 Traumati c partial amputati on of right great toe Active 2018 initial encounte r [facility] 4 10:23:54 Stasis dermatit is 61167845 Active 2021 Venous stasis dermatit is [facility], [facility] 4 10:30:44 Diabetes mellitus 09455523 Completed 202309/01/[address], [facility] [address] [place] [address] 4 14:43:16 Type 2 diabetes mellitus 74618284 Completed 202309/01/[address], [address] 4 14:43:16 Obesity 172702590 Active [address], [address] 4 20:58:25 Hemoglob in A1c greater than 9% indicati ng poor diabetic control 06264666032 4104 Completed 202309/01/[address], [address] 4 14:43:16 Problem Notes None recorded. Medical Equipment None Reported. Allergies Allergen ID Allergen Name Allergen Category Reaction Reaction Severity Criticality Documentation Date Start Date Code Code System Note Provider Name and Address Organization Details Recorded Time 76880 lisinopri l medicatio n cough moderate Not available 08/27/20232009 36864 RxNorm Kristie Peters [facility] 4 10:31:16 61372 metoprolo l succinate medicatio n other moderate Not available 08/27/20232018 23221 4 RxNorm No react ion [facility] 10:31:36 89542 codeine medicatio n hives moderate Not available 08/27/20232002 2670 RxNorm [facility] 4 10:31:10 Medications Name Sig [...] Dx: Asthma J45.40 Smoking Z71.6 2018 active [facility] in [place] Not Available Not Available Not Available Humalog [...] Dose change to 18mg q day per [facility] 04/12/19; 20mg as of 03/2020 Not Available Not Available Not Available Suboxone 2 mg-0.5 mg sublingua l film Take 2 film sublingu ally once daily 05/08 completed Per [facility] 04/12/19, total daily dose increase d to [...] Last Updated DateTime 155.58 cm 36.9 kg/m2 98624.7 g 97.7 [degF] 91 % 91 % 104 /min 178 mm[Hg] 82 mm[Hg] ARMIDA HIRSCH MA [facility] 14:46:25 Date Recorded Body height Provider Name an d Address Organization Details Last Updated DateTime 10/19/2024 155.58 cm Alexa Sorto LPN [facility] 10/19/2024 15:34:50 Date Recorded Systolic blood pressure Diastolic blood pressure Provider Name and Address Organization Details Last Updated DateTime 10/19/2024 158 mm[Hg] 82 mm[Hg] MD Shailesh [address], [place], [address], [facility] 10/19/2024 16:50:46 Social History Question Answer Notes LastModified by Organizat ion Details LastModified Time Tobacco Smoking Status Current Every Day Smoker SURJIT KITCHEN, DAVID null, [place] - [facility]. 11/03/2023 13:42:55 Date Of Most Recent HSA 10/06/2024 [email or web address] Information not available 10/06/2024 Would You Say That, In General, Your Health Is Poor [email or web address] Information not available 10/06/2024 Women Aged 18-50 - Would You Like To Become In The Next Year? (Female Patients Only) No [email or web address] Information not available 10/06/2024 How Often Does Anyone, Including Family, Physically Hurt You? Never [email or web address] Information not available 10/06/2024 How Often Does Anyone, Including Family, Insult Or Talk Down To You? Never [email or web address] Information no t available 10/06/2024 How Often Does Anyone, Including Family, Threaten You With Harm? Never Information not available 10/06/2024 How Often Does Anyone, Including Family, Scream Or Curse At You? Never [email or web address] Information not available 10/06/2024 Within The Past 12 Months, You Worried That Your Food Would Run Out Before You Got Money To Buy More. Sometimes True [email or web address] Information not available 10/06/2024 Within The Past 12 Months, The Food You Bought Just Didn't Last And You Didn't Have Money To Get More. Sometimes True [email or web address] Information not available 10/06/2024 How Hard Is It For You To Pay For The Very Basics Like Food, Housing, Medical Care, And Heating? Would You Say It Is: Very Hard [email or web address] Information not available 10/06/2024 In The Past 12 Months, Has Lack Of Reliable Transportation Kept You From Medical Appointments, Meetings, Work Or From Getting Things Needed For Daily Living? Yes [email or web address] Information not available 10/06/2024 What Is Your Housing Situation Today? I Have Housing. [email or web address] Information not available 10/06/2024 How Often In The Past Year Have You Used Marijuana (including Smoking, Vaping, Dabbing, Or Edibles)? Never [email or web address] Information not available 10/06/2024 How Often In The Past Year Have You Used Prescription Medications That Were Not Prescribed To You? Never [email or web address] Information not available 10/06/2024 How Often In The Past Year Have You Taken Your Own Prescription Medication More Than The Way It Was Prescribed Or For Different Reasons Than Its Intended Purpose? Never Information no t available 10/06/2024 How Often In The Past Year Have You Used Other Drugs (for Example, Heroin, Cocaine, Meth, Salvia, Inhalants)? Never [email or web address] Information not available 10/06/2024 Have You Ever Used IV Drugs? Yes 10 Years Ago [email or web address] Information not available 10/06/2024 What Matters Most To You? Vision, Overall Health [email or web address] Information not available 10/06/2024 During The Past Four Weeks Has Your Physical And Emotional Health Limited Your Social Activities With Family And Friends, Neighbors, Or Groups? Moderately [email or web address] Information not available 10/06/2024 During The Past Four Weeks, Was Someone Available To Help You If You Needed And Wanted Help? (For Example, If You [place] Very Nervous, Lonely, Or Blue; Got Sick And Had To Stay In Bed; Needed Someone To Talk To; Needed Help With Daily Chores; Or Needed Help Just Taking Care Of Yourself.) Yes- Quite A Bit Information not available 10/06/2024 During The Past Four Weeks, What Was The Hardest Physical Activity You Could Do For At Least 2 Minutes? Heavy Information not available 10/06/2024 Can You Get To Places Out Of Walking Distance Without Help? (For Example, Can You Travel Alone On Buses Or Taxis, Or Drive Your Own Car?) No [email or web address] Information not available 10/06/2024 Can You Go Shopping For Groceries Or Clothes Without Someone? s Help? No [email or web address] Information not available 10/06/2024 Can You Prepare Your Own Meals? No [email or web address] Information not available 10/06/2024 Can You Do Your Housework Without Help? Yes Information not available 10/06/2024 Because Of Any Health Problems, Do You Need The Help Of Another Person With Your Personal Care Needs Such As Eating, Bathing, Dressing, Or Getting Around The House? Yes [email or web address] Information not available 10/06/2024 Can You Handle Your Own Money Without Help? Yes [email or web address] Information not available 10/06/2024 Are You Having Difficulties Driving Your Car? Not Applicable- I Do Not Use A Car [email or web address] Information not available 10/06/2024 How Often During The Past Four Weeks Have You Been Bothered By Any Of The Following Problems? Falling Or Dizzy When Standing Up? Often [email or web address] Information not available 10/06/2024 Sexual Problems? Never [email or web address] Informat ion not available 10/06/2024 Trouble Eating Well? Never [email or web address] Information not available 10/06/2024 Teeth Or Denture Problems? Always [email or web address] Information not available 10/06/2024 Problems Using The Telephone? Always Can't See Phone Information not available 10/06/2024 Tiredness Or Fatigue? Always [email or web address] Information not available 10/06/2024 Have You Had 2 Or More Falls Or Sustained An Injury With A Fall In The Last Year? Yes [email or web address] Information not available 10/06/2024 Do You Have Difficulty With Walking Or Balance? Yes [email or web address] Information not available 10/06/2024 Do You Currently Use A Hearing Device? No [email or web address] Information not available 10/06/2024 Do You Currently Have Any Trouble With Your Vision? Yes [email or web address] Information no t available 10/06/2024 Do You Exercise For About 20 Minutes Three Or More Days A Week? No- I Usually Do Not Exercise Much [email or web address] Information not available 10/06/2024 Are There Any Safety Concerns In Your Home (see Attached CDC Pamphlet)? Yes Stairs, Cooking Information not available 10/06/2024 How Often Do You Have Trouble Taking Medicines The Way You Have Been Told To Take Them? Sometimes I Take Them As Prescribed [email or web address] Information not available 10/06/2024 How Confident Are You That You Can Control And Manage Most Of Your Health Problems? Somewhat Confident Information not available 10/06/2024 Do You Currently Have Any Difficulty With Your Hearing? No [email or web address] Information not available 10/06/2024 Date Of Most [...] Cessation Counseling Been Provided? Yes Pt Declines. [email or web address] Information not available 10/06/2024 On What Date Was Tobacco Cessation Counseling Provided? 10/06/2024 Pt Just Not Ready Yet. [email or web address] Information not available 10/06/2024 How Many Years [...] completed ARMIDA HIRSCH MA null, [place] - [facility]. 09/01/2024 18:38:23 Influenza, split virus, trivalent, PF 4 completed SHARON HENDERSON MD [address], [place], [address], [facility] 09/01/2024 16:09:15 Td (adult), 5 Lf tetanus toxoid, preservative free, adsorbed 7 completed Not Available [facility] 08/27/2023 06:21:08 Tdap 7 completed Not Available [facility] 08/27/2023 06:21:08 Novel [id number], all formulations 9 completed Not Available [facility] 08/27/2023 06:21:08 Td(adult) unspecified formulation 1 completed Not Available [facility] 08/27/2023 06:21:08 Influenza, split virus, trivalent, preservative 6 completed Not Available [facility] 08/27/2023 06:21:08 Influenza, split virus, quadrivalent, PF 2 completed Not Available [facility] 08/27/2023 06:21:08 Influenza, split virus, quadrivalent, PF 3 completed Not Available [facility] 08/27/2023 06:21:08 Influenza, split virus, quadrivalent, preservative 8 completed Not Available [facility] 08/27/2023 06:21:09 COVID-19, mRNA, LNP-S, PF, 100 mcg/0.5mL dose or 50 mcg/0.25mL dose 2 completed Not Available [facility] 08/27/2023 06:21:09 COVID-19 vaccine, vector-nr, rS-Ad26, PF, 0.5 mL 1 completed Not Available [facility] 08/27/2023 06:21:09 COVID-19, mRNA, LNP-S, bivalent, PF, 30 mcg/0.3 mL dose 3 completed Not Available [facility] 08/27/2023 06:21:09 pneumococcal polysaccharide PPV23 0 completed Not Available [facility] 08/27/2023 06:21:09 influenza, unspecified formulation 9 completed Not Available [email or web address] 08/27/2023 06:21:09 influenza, unspecified formulation 8 completed Not Available [facility] 08/27/2023 06:21:09 influenza, unspecified formulation 7 completed Not Available [facility] 08/27/2023 06:21:09 Influenza, split virus, quadrivalent, PF 3 completed Not Available [facility] 10/29/2023 05:31:09 Pneumococcal conjugate PCV20, polysaccharide FAH531 conjugate, adjuvant, PF 3 completed Not Available [facility] 10/29/2023 05:31:11 Past Encounters Encounter ID Performer Location Encounter Start Date Encounter Closed Date Diagnosis/Indication Diagnosis SNOMED-CT Code Diagnosis ICD10 Code Diagnosis Note [id number] ROSIBEL SALGADO RN [address] [address] 10/06/2024 12:53:21 10/06/2024 14:03:34 Adult health examination 876218868 Z00.00 Muscle weakness 94882321 M62.81 Decompensa curtis cirrhosis of liver 551552305 K74.60 See above. No evidence of ascites, varices or jaundice. Hyperlipidemia 21655728 E78.5 Chronic hepatitis C 1283 44944 B18.2 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 1360729026 6497050 J44.9 Recommende d switch from Breo to Trelegy for LABA/LAMA coverage as well as ICS. 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 28201669 E11.8 [id number] October [address] [address] 10/19/2024 14:35:21 10/19/2024 17:05:19 Acute exacerbation of chronic obstructive pulmonary disease 763041018 J44.1 Will treat with short course of prednisone , 40 mg/day x 5 days. In-house supply dispensed given her difficulty getting to and obtaining medication s from the pharmacy. 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 I reviewed with her availabili ty of a funds to our office to help with co-pays if needed. Renal fail ure syndrome 09244165 N19 Acute on chronic with no significan t improvemen t in creatinine during hospitaliz ation. Reviewed with Dr.Onuigbo [facility] nephrology . Will obtain screening labs including [...] lung disease. Decompensa curtis cirrhosis of liver 177592356 K74.60 Will check coag studies, had recent liver function tests, will forward all to nephrology . Chronic hepatitis C 1283 70282 B18.2 High viral load, she was hoping to start treatment but is too ill at this time. Acute randa l insufficiency 677860248 N28.9 Repeat BMP drawn today. Will schedule weekly BMPs through home health to keep close eye on creatinine and GFR. Essential hypertension 67814596 I10 Blood pressure higher since discontinu ation of losartan HCTZ. Will increase amlodipine from 5 to 10 mg/day. 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 81681308 E11.8 A1c was 6.6 during recent hospital stay and blood sugars have been remaining under 200 off all insulin and oral hypoglycem ics recently. Will likely need resumption of some degree of insulin or possibly an oral agent, will monitor. She will continue checking her sugars 2-3 times per day. Tobacco Creactives e cessation education 803405253 Z71.6 Unfortunat dimitri she continues to smoke and has been unable to quit. History of opioid abuse 8066516657 63977 F11.11 Stable on methadone but with ongoing cocaine use. Retroperit antonio lymphadenopathy 681724617 R59.0 Reactive etiology favored per radiologis t, no concerning masses or other signs of malignancy on recent noncontras t abdominal pelvis CT. Health Concerns Section Related Observation LastModified by Organization Detai ls LastModified Time None Recorded Concern Status LastModified by Organization Details LastModified Time None Recorded Payers Encounter Date Sequence Insurance Name Policy Number Policy Salmon Covered Member ID Aslmon Member ID Guarantor Name 10/19/2024 2 [facility] (MEDICAID) Lea Miramontes [id number] Lea Miramontes 10/19/2024 1 [place] - [facility] (MEDICARE) Lea Miramontes [id number] Lea Miramontes Notes Date Note Type [...] 158/82 SHARON HENDERSON MD [address], [place], [address], [facility]. 10/19/2024 17:05:17 OBGyn Episode No OBEpisode recorded.
--- OUTSIDE RECORDS SUMMARY | 2024-11-10 15:29 | XMS_ITS | Continuity of Care Document ---
Author Organization [place] - [facility], [facility] Address [address] [place] [address] Care Team Providers Care Fixer Supervisor Name Role Phone [facility] [place] Ophtha lmologist RACHELL FIORE Supervising Bailiff Assessment Encounter Date Assessment Date Assessment LastModified [...] - Plan: a. Order liver ultrasound at [facility]. b. Perform Hepatitis C [...] with a document listing completed preventive services. [email or web address] Not available 10/06/2024 15:38:27 Plan of Treatment Reminders Order Date Submit Date Provider Last Modified By Organization Details Last Modified Time Details Appointments Follow Up 2024 01:50P M SHARON HENDERSON Not available Not available Not available Follow Up 2024 02:30P Roly HENDERSON Not available Not available Not available Lab CMP, serum or plasma 2023 [facility] (Registration ), [address] [place] [address] [place], [address], 10/06/2024 23:19:49 CBC w/ auto diff 2023 024 [facility] (Registration ), [address] [place] [address] [place], [address], 10/06/2024 23:05:50 hepatitis C virus RNA, quant, PCR, serum or plasma [address] Laboratory (Registration ), [address] [place] [address] [place], [address], 10/10/2024 09:29:40 lipid panel, serum 2023 024 [email or web address] [facility] (Registration ), [address] [place] [address] [place], [address], 10/10/2024 09:29:20 Referral physical therapist referral - generaliz ed weakness/ deconditi oning related to cirrhosis , diabetic neuropath y and visual impairmen t. would like to work on general strengthe lynnette and balance. 2023 [facility], [address] [facility], [place], [address], 10/06/2024 15:55:22 Procedures None recorded. Surgeries None recorded. Imaging US, liver - known cirrhosis , assess degree of fibrosis for Hep C treatment 2023 [email or web address] [facility] - Radiology, [address], [place], [address], 10/20/2024 06:58:14 Medication Orders Glucagon (HCl) Emergency Kit 1 mg solution for injection 2023 [employer] [address], [place], [address], 10/06/2024 15:38:32 Breo Ellipta 200 mcg-25 mcg/dose powder for inhalatio n 2023 [email or web address] [employer] [address], [place], [address], 11/07/2024 12:02:01 Patient TargetsNo targets recorded. Patient Instructions Encounter Date Encounter Id Patient Instructions Last Modified By Organization Details Last Modified Time 10/06/2024 [id number] Date: WedOct 06 2024 Dear Lea, Thank you for visiting us today. We appreciate your commitment to improving your health and managing your conditions effectively. Here's a summary of our discussion and the next steps for your treatment plan: - Blood Work: Complete tests for liver function, kidney function, cholesterol, and Hep C viral load. - Medications: supervisor facepiece line your Trelegy inhaler. - Ultrasound: Schedule an ultrasound of your liver at [facility] to assess the degree [...] regards, Dr. Sharon Henderson MD Family Medicine [email or web address] Not available 10/06/2024 15:38:01 Discussed and explained advance directives such as standard forms to the {{patient caregiv er patient and caregiver}}. Face to face discussion lasted for a duration of ___ minutes. [email or web address] Not available 10/05/2024 17:30:53 Reason for Referral [...] [facility] Jeff Mchugh [id number] RADIOL OGY TRANSC RIPTIO N REPORT _ Patien t Name: ERROL RUTH MS MRN: Sex: : Age: [id number] F [id number] Accoun t: Access ion: Admit: StayTy pe: [id number] 2023 Mina Verde d: Order ID: Submit curtis: Rosetta ng Provid er: 2023 14:14 [id number] CAROLINA MCINTOSH Comple curtis: Techno logist : [...] t. If you are a health care [facility] er and have any questi ons regard ing this report , please contac t the number below. For patien ts who have questi ons please contac t the health care profes sional that reques curtis your imagin g first. Electr onical ly signed by: Júnior Vick MD Radiol jimmy schaefer ([phone]), at 2023 3:51 PM INTERFACE [facility] (Lab) [address] [place] [address], [address], 10/07/2024 15:57:10 11/01/19 25 11/01/2024 xr chest tiffany ble or 1V [facility] Jeff Mchugh [id number] RADIOL OGY TRANSC RIPTIO N REPORT _ Patien t Name: FARAZ BUCKLEY,ERROL Kaminski MRN: Sex: : Age: [id number] F [age] Accoun t: Access ion: Admit: StayTy pe: [id number] E Ammon d: Order ID: Submit curtis: Rosetta urena Provid er: 2024 01:40 [id number] MBD ABBI MILLER curtis: Techno logist : Result ed: 2024 [...] please contac t the number below. For armin ts who have questi ons please contac t the health care chicho jiménez that reques curtis your imagin g first. Electr onical ly signed by: Lala Patel MD [facility] jimmy schaefer ([phone]), at 025 2:13 AM INTERFACE [facility] (Lab) [address] [place] [address], [address], 11/01/2024 02:19:02 11/02/19 25 11/01/2024 EKG order jude urena 12 lead [facility] [email or web address] [id number] EK TRANSC SUKHDEEP Schaefer REPORT _ Accoun t: Access ion: Admit: StayTy pe: [id number] E/R Observ ation: Order ID: Submit curtis: Rosetta urena Provid er: 2024 02:16 [id number] ABBI JALLOH _ [place] [id number] [facility] al Test Date: 11-01 Pat Name: ABELINO RUTH MS Depart ment: [facility] Smith jabier ID: [id number] Room: 5A Gender : F Techni emir: : 01-03 Reques curtis By: ABBI Reynoso Order Number : [id number] Charbel junior MD: Gentry Finney Measur ements Interv als [place] Rate: 104 P: 76 ID: 176 QRS: -32 QRSD: 96 T: 0 QT: 370 QTc: 486 Interp retive Statem ents Sinus tachyc ardia Left axis deviat ion Compar ed to ECG 2022 05:17: 21 Left-a xis deviat ion now presen t Sinus rhythm no longer presen t Electr onical ly Signed On 025 8:26:2 3 EST by Gentry Finney INTERFACE [facility] (Lab) [address] [place] [address], [address], 11/02/2024 08:28:22 11/02/19 25 11/01/2024 CT chest wo contr ast [facility] RAD[facility]GY Jeff Mchugh [id number] RADIOL OGY TRANSC RIPTIO N REPORT _ Patien t Name: ERROL RUTH MS MRN: Sex: : Age: [id number] F [age] Accoun t: Access ion: Admit: StayTy pe: [id number] I Ammon d: Order ID: Submit curtis: Rosetta urena Provid er: 2024 08:54 [id number] CLIVE BONNER curtis: Techno logist : Result [...] signed by: Jose Lopez MD Radiol jimmy Gulshansahara schaefer ([phone]), at 025 9:30 AM INTERFACE [facility] (Lab) [address], [place], [address], 11/02/2024 09:37:40 11/02/19 25 11/02/2024 nm lung venti latio n and perfu ronan* [facility] Jeff Mchugh [id number] RADIOL OGY TRANSC RIPTIO N REPORT _ Patien t Name: FARAZ BUCKLEY,ERROL Kaminski MRN: Sex: : Age: [id number] F [age] Accoun t: Access ion: Admit: StayTy pe: [id number] 115 025 I Ammon d: Order ID: Submit curtis: Rosetta urena Provid er: 2024 14:46 [id number] GARTH NORWOOD Comple curtis: Techno logist : [...] were obtain ed in the anteri or, magnetic prospecting operator ior, latera l and obliqu e projec [...] t. If you are a health care [facility] er and have any questi ons regard ing this report , please contac t the number below. For patien ts who have questi ons please contac t the [facility] that reques curtis your imagin g first. Electr onical ly signed by: Júnior Vick MD Radiol jimmy Adams olive ([phone]), at 025 11:46 AM INTERFACE [facility] (Lab) [address] [place] [address], [address], 11/02/2024 11:53:05 Result Notes None recorded. Problems Name Problem SNOMED Code Status Onset Date Resolution Date Notes Provider Name and Address Organization Details Recorded Time Complica tion due to diabetes mellitus 74497654 Active [address], [place], [address] , [facility] 4 14:41:01 Gastroes ophageal reflux disease without esophagi tis 569979774 Active [address], [place], [address] , [facility] 4 15:41:02 Sleep apnea 30664487 Active [address], [place], [address] , [facility] 4 15:41:33 Dyspnea on exertion 14745559 Active [address], [place], [address] , [facility] 4 16:02:44 Smoker 31622390 Active [address], [place], [address] , [facility] 4 16:03:44 Legal blindolivia s 31777376 Active [address], [facility] [address] , [facility] 4 16:04:00 Toenail thickene d 255611188 Active [address], [facility] [address] , [facility] 4 16:07:44 Pruritic rash 16739775 Active [address], [facility] [address] , [facility] 4 16:09:31 Retroper itoneal lymphade nopathy 615079440 Active 2023 burak MIRAMONTES RN null, [facility] 5 12:10:08 Renal failure syndrome 86972842 Active 2023 burak MIRAMONTES RN null, [facility] 5 12:10:41 Acute exacerba tion of chronic obstruct vishnu pulmonar y disease 981792033 Active [address], [place], [address] , [facility] 5 15:11:03 Acute renal insuffic iency 644053296 Active [address], [facility] [address] , [facility] 5 16:57:59 Chronic kidney disease stage 5 089165317 Active [address], [place], [address] , [facility] 5 11:20:54 [facility]ia l hyperten ronan 15627267 Active 2005 [facility] 4 09:53:15 Hyperlip idemia 84367651 Active 2005 [facility] 4 10:08:20 Uncompli cated moderate persiste nt asthma 024632203 Active 2005 [facility] 4 10:24:46 Severe obesity 93121162573 104 Active 2005 [facility] 4 10:22:09 Chronic hepatiti s C 206112280 Active 2003 pos viral load not treated [facility] 4 09:47:44 Pain of right shoulder joint 62685705554 145908 Active 2014 [facility] 4 10:17:43 Neuropat hy due to type 2 diabetes mellitus 02077016076 9106 Active 2014 uncontro lled, w/neurol o comps [facility] 4 10:17:28 Idiopath ic osteoart hritis 601808899 Active 2014 DJD, knees, bilatera l [facility] 4 10:08:49 Renal disorder due to type 2 diabetes mellitus 171656282 Active 2015 Diabetic nephropa thy [facility] 4 10:21:57 Derangem ent of right knee 61491072543 495748 Completed 201505/05/2016 Problem Code: M23.91; Problem Code Type: ICD-10; Not Available [facility] 3 04:12:16 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 32165315577 9104 Active 2015 (not billable after 6) [facility] 4 10:16:21 Cocaine abuse 63497803 Active 2016 episodic Kristie Peters [facility] 4 09:50:22 Tobacco use cessatio n educatio n Active 2016 [facility] 4 10:22:41 Gallblad mark calculus with acute cholecys titis and no obstruct ion 893009097 Completed 201612/29/2016 Problem Code: K80.00; Problem Code Type: ICD-10; Not Available [facility] 3 04:12:17 Acute asthma 351592492 Completed 201604/13/2017 Problem Code: J45.901; Problem Code Type: ICD-10; Not Available [facility] 3 04:12:17 Cellulit is 907368193 Completed 201607/16/2017 Problem Code: L03.90; Problem Code Type: ICD-10; Not Available [facility] 3 04:12:17 Atopic dermatit is 35705468 Active 2017 Kristie Fran [facility] 4 09:45:01 Impetigo 83648725 Completed 201705/03/2018 Problem Code: L01.00; Problem Code Type: ICD-10; Not Available [facility] 3 04:12:17 Screenin g mammogra phy Completed 201804/20/2019 Problem Code: Z12.31; Problem Code Type: ICD-10; Not Available [facility] 3 04:12:18 History of diabetic foot ulcer 19376935530 439733 Active 2018 [facility] 4 10:01:51 Chronic obstruct vishnu pulmonar y disease 36376701 Active 2018 Asthma with COPD [facility] 4 09:48:31 Anemia 503551700 Active 2018 [facility] 4 09:39:01 Albumin level - finding 465403372 Active 2018 decrease d [facility] 4 09:37:16 Peripher al venous insuffic iency 87407725 Active 2018 Stasis ulcer [facility] 4 10:18:18 Cough 28509237 Completed 201908/22/2020 Problem Code: R05; Problem Code Type: ICD-10; Not Available [facility] 3 04:12:19 Endocrin e/metabo lic screenin g Completed 202012/28/2020 Problem Code: Z13.29; Problem Code Type: ICD-10; Not Available [facility] 3 04:12:19 Counseli ng Active 2020 Immuniza tion counseli ng [facility] 4 09:51:24 Generali zed anxiety disorder 00453088 Active 2020 [facility] 4 10:01:19 Vomiting 480610820 Completed 202006/26/2021 Problem Code: R11.10; Problem Code Type: ICD-10; Not Available [facility] 3 04:12:19 Insect bite Completed 202007/09/2021 Not Available [facility] 3 04:12:20 Cirrhosi s of liver 94502774 Active 2022 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 with possible contribu tion of [place], decompen sated [facility] 4 09:49:47 Jaundice 64857095 Active 2022 [facility] 4 10:09:01 Muscle weakness 28813086 Active 2022 (general ized) [facility] 4 10:16:46 Opioid abuse 0222788 Completed 202209/28/2023 Problem Code: F11.10; Problem Code Type: ICD-10; Not Available [facility] 4 05:34:22 Lichen simplex chronicu s 65798157 Active 2022 Neuroder matitis [facility] 4 10:10:12 History of osteomye litis 264787685 Active 2022 [facility] 4 10:05:22 Opioid abuse 1265884 Completed 201807/14/2023 03/04/20 21 - Comments only - Sharon Henderson MD - offered scg for OBT but she states she plans to try to establis h tx thru [facility]. Not interest ed in Suboxone or Vivitrol ; might be interest ed in Sublocad e. Problem Code: F11.10; Problem Code Type: ICD-10; Not Available [facility] 3 04:12:22 Cholelit hiasis without obstruct ion 58483112 Completed 201512/22/2016 Problem Code: K80.20; Problem Code Type: ICD-10; Not Available [facility] 3 04:12:22 Candidia sis of vagina 19194594 Completed 201503/27/2016 Problem Code: B37.3; Problem Code Type: ICD-10; Not Available [facility] 3 04:12:23 Traumati c or non-trau matic injury 200549369 Completed 201607/14/2023 Problem Code: T14.8; Problem Code Type: ICD-10; Not Available [facility] 3 04:12:23 Disorder of teeth AND/OR supporti ng structur es 243614434 Completed 201503/17/2016 Problem Code: K08.8; Problem Code Type: ICD-10; Not Available [facility] 3 04:12:23 Uncompli cated asthma 991213980 Completed 200507/14/2023 Problem Code: J45.909; Problem Code Type: ICD-10; Not Available [facility] 3 04:12:23 Hyperten sive disorder 08407846 Completed 200507/14/2023 Not Available [facility] 3 04:12:24 Scar conditio ns and fibrosis of skin 995321492 Completed 201604/23/2017 Problem Code: L90.5; Problem Code Type: ICD-10; Not Available [facility] 3 04:12:24 Human papillom a virus infectio n 829703776 Completed 201607/14/2023 Problem Code: B97.7; Problem Code Type: ICD-10; Not Available [facility] 3 04:12:24 Morbid obesity 471663946 Completed 200507/14/2023 Not Available [facility] 3 04:12:24 Foot ulcer due to type 2 diabetes mellitus 42906594264 00 Completed 201512/22/2016 01/20/20 19 - Comments [...] E11.621; Problem Code Type: ICD-10; Kristie rivera [facility] 4 09:59:50 Periapic al abscess 642857850 Completed 201403/17/2016 Problem Code: K04.7; Problem Code Type: ICD-10; Not Available [facility] 3 04:12:25 Drug abuse 29204847 Completed 200707/14/2023 Problem Code: 305.90; Problem Code Type: ICD-9; Not Available [facility] 3 04:12:25 Opioid dependen ce in [facility] n 698016809 Completed 201807/14/2023 09/26/20 19 - Comments only [...] F11.21; Problem Code Type: ICD-10; Not Available [facility] 3 04:12:25 Gynecolo gic examinat ion Completed 201602/02/2017 Problem Code: Z01.419; Problem Code Type: ICD-10; Not Available [facility] 3 04:12:26 Nodule on toe 811589827 Completed 201605/25/2019 Not Available [facility] 3 04:12:26 Pain of right knee joint 71469319023 4100 Completed 201502/02/2017 Problem Code: M25.561; Problem Code Type: ICD-10; Not Available [facility] 3 04:12:26 Candidia sis of skin 24767486 Completed 201503/27/2016 Problem Code: B37.2; Problem Code Type: ICD-10; Not Available [facility] 3 04:12:26 Dysuria 98561954 Completed 201505/07/2016 Problem Code: R30.0; Problem Code Type: ICD-10; Not Available [facility] 3 04:12:27 Retinopa thy due to type 2 diabetes mellitus 498382858 Completed 201507/14/2023 Problem Code: E11.319; Problem Code Type: ICD-10; Not Available [facility] 3 04:12:27 Infectio n of skin and/or subcutan eous tissue 76311308 Completed 202204/30/2023 Problem Code: L08.89; Problem Code Type: ICD-10; Not Available [facility] 3 04:12:27 Tobacco dependen ce caused by cigarett es 17250458077 036726 Completed 200305/25/2019 Problem Code: F17.210; Problem Code Type: ICD-10; Not Available [facility] 3 04:12:27 Opioid dependen ce 02044554 Completed 200309/04/2015 05/25/20 19 - Comments only - Alexandro Grewal - Doing well in treatmen t at [facility]. Problem Code: F11.20; Problem Code Type: ICD-10; Not Available [facility] 3 04:12:28 Asthma 397764816 Completed 200507/14/2023 Not Available [facility] 3 04:12:28 Pain of joint of knee 1435646301 Completed 201407/14/2023 Problem Code: M25.569; Problem Code Type: ICD-10; Not Available [facility] 3 04:12:28 Cellulit is of right lower limb 25492310977 223750 Completed 201805/25/2019 Problem Code: L03.115; Problem Code Type: ICD-10; Not Available [facility] 3 04:12:28 Shoulder joint pain 495396184 Completed 201407/14/2023 Problem Code: 719.41; Problem Code Type: ICD-9; Not Available [facility] 3 04:12:29 Smoker 47047653 Completed 200307/14/2023 SHARON HENDERSON MD [address], [place], [address] , [facility]. 4 16:03:44 Chronic ulcer of foot 969393030 Completed 201601/05/2017 Problem Code: L97.529; Problem Code Type: ICD-10; Not Available [facility] 3 04:12:29 Type 2 diabetes mellitus without complica tion 755264698 Completed 200307/14/2023 Problem Code: 250.00; Problem Code Type: ICD-9; MD [address]esh [address], [place], [address] , [facility] 4 14:43:16 Pain of left knee joint 79087096162 4107 Completed 201407/14/2023 Problem Code: M25.562; Problem Code Type: ICD-10; Not Available [facility] 3 04:12:30 Depressi ve disorder 14303375 Completed 200307/14/[address], [place], [address] , [facility] 4 14:41:17 Hypergly cemia due to type 2 diabetes mellitus 96028092658 9109 Completed 200309/04/2015 Problem Code: E11.65; Problem Code Type: ICD-10; Not Available [facility] 3 04:12:30 Chest pain 24079494 Completed 201605/25/2019 Problem Code: R07.89; Problem Code Type: ICD-10; Not Available [facility] 3 04:12:31 Drug dependen ce 796920731 Completed 200307/14/2023 Problem Code: 304; Problem Code Type: ICD-9; Not Available [facility] 3 04:12:31 Cellulit is of toe of right foot 85681984859 068943 Completed 201505/11/2016 Problem Code: L03.031; Problem Code Type: ICD-10; Not Available [facility] 3 04:12:31 Osteoart hritis of knee 869613360 Completed 201402/02/2017 Problem Code: M17.9; Problem Code Type: ICD-10; Not Available [facility] 3 04:12:32 History of infectio us disease 724863148 Completed 201409/04/2015 Problem Code: Z86.19; Problem Code Type: ICD-10; Kristie Peters [facility], [facility]. 4 10:05:01 Tobacco user 351175342 Completed 200508/06/2015 Not Available [facility] 3 04:12:32 Viral screenin g Completed 202209/10/2023 Problem Code: Z11.52; Problem Code Type: ICD-10; Not Available [facility] 4 05:34:15 Acute upper respirat ory infectio n 18705488 Completed 202208/18/2023 Problem Code: J06.9; Problem Code Type: ICD-10; Not Available [facility] 4 05:34:15 Type 2 diabetes mellitus without complica tion 840528410 Completed 202309/01/2024 Problem Code: 250.00; Problem Code Type: ICD-9; SHARON HENDERSON MD [address], [facility] [address] , [facility] 4 14:43:16 Asthma-c hronic obstruct vishnu pulmonar y disease overlap syndrome 12278394925 673224 Active 2023 [facility] 4 09:39:21 Decompen sated cirrhosi s of liver 017076878 Active 2023 Child Bourgeois score 8/Class B as of 12/2022 [facility], [facility]. 4 09:51:34 Visual impairme nt 789205840 Active 2023 [facility], [facility]. 4 10:29:20 Thickene d nails 955949291 Active 2023 [facility]. 4 10:22:14 Thickeni ng of skin 87789264 Completed 202309/01/2024 SHARON HENDERSON MD [address], [facility] [address] , [facility] 4 14:43:15 Acquired hammer toes of bilatera l feet 41598536808 041768 Active 2023 [facility] 4 09:37:02 History of amputati on of right foot 35208607024 358561 Active 2023 [facility] 4 10:01:25 Combined form of senile cataract 02897711 Active 2023 [facility] 4 09:50:32 Unintent ional weight loss 931660273 Active 2022 [facility] 4 10:24:46 History of amputati on of lesser toe 622078386 Active 2022 [facility] 4 09:38:36 History of intraven ous drug abuse 73384072053 051744 Active 2007 heroin [facility] 4 09:40:14 Left ventricu lar hypertro phy 66083032 Active 2015 mild concentr ic 3/16 echo (nl EF) [facility] 4 09:47:08 Follicul itis 38670236 Active 2022 [facility] 4 09:52:22 Peripher al edema 714553829 Active 2014 [facility] 4 09:52:55 Mild persiste nt asthma 686790049 Active 2022 with acute exacerba tion [facility] 4 09:54:28 Family history of Alzheime r's disease 762639001 Active 2018 mother age 50, maternal grandmot her, maternal aunts and uncles; no genetic testing done [facility] 4 09:56:26 Diabetic foot ulcer 913305897 Active 2022 [facility] 4 09:59:46 History of cholecys tectomy 577201814 Active 2016 laparosc opic, 01/01 [facility] 4 10:00:55 History of human papillom a virus infectio n 53643834311 9102 Active 01/01; nl pap; neg colpo 04/03 incl ECC; neg pap 11/05; 5 yr f/u [facility] 4 10:04:56 History of opioid abuse 11906756405 9100 Active 2018 Hx of opioid abuse -- Saveda resumed suboxone 09/07 [facility] 4 10:08:01 Edentulo 003697436 Active 2015 s/p complete extr due to advanced caries 03/02 [facility] 4 10:13:37 Major depressi ve disorder 696584946 Active 2022 Major depressi on [facility] 4 10:15:28 Traumati c partial amputati on of right great toe Active 2018 initial encounte r [facility] 4 10:23:54 Stasis dermatit is 99177749 Active 2021 Venous stasis dermatit is [facility] 4 10:30:44 Diabetes mellitus 06706662 Completed 202309/01/[address], [place], [address] , [facility] 4 14:43:16 Type 2 diabetes mellitus 01136686 Completed 202309/01/[address], [facility] [address] [place] [address] 4 14:43:16 Obesity 009911220 Active [address], [facility] [address] , [facility] 4 20:58:25 Hemoglob in A1c greater than 9% indicati ng poor diabetic control 74321096344 4104 Completed 202309/01/[address], [facility] [phone] [place] [address] 4 14:43:16 Problem Notes None recorded. Medical Equipment None Reported. Allergies Allergen ID Allergen Name Allergen Category Reaction Reaction Severity Criticality Documentation Date Start Date Code Code System Note Provider Name and Address Organization Details Recorded Time 87813 lisinopri l medicatio n cough moderate Not available 08/27/20232009 05427 RxNorm [facility] 4 10:31:16 86073 metoprolo l succinate medicatio n other moderate Not available 08/27/20232018 23553 4 RxNorm No react ion enter ed [facility] 4 10:31:36 72000 codeine medicatio n hives moderate Not available 08/27/20232002 2670 RxNorm [facility] 4 10:31:10 Medications Name Sig Start [...] 20 units 300 and above 30 units. 05/05/ 2014 09/05 /2023 completed Not Available Not Available Not Available [...] pt, using PRN after Burak discharg e 1/17/25 Not Available Not Available Not Available Prilosec [...] Stockings Dx: peripher al edema 11/04 completed [place] [facility] Not Available Not Available Not Available gabapenti n 300 mg tablet 3 cap three times daily 06/16 completed Not Available Not Available Not Available albuterol 2INH four times daily 07/31 completed Not Available Not Available Not Available Nystatin (Topical) cream apply BID 05/28 completed Not Available Not Available Not Available Nebulizer Dx: Asthma J45.40 Smoking Z71.6 2018 active [facility] in [place] Not Available Not Available Not Available Humalog [...] Last Updated DateTime 155.58 cm 35.5 kg/m2 42681.3 9 g 97.8 [degF] 96 % 96 % 79 /min 126 mm[Hg] 72 mm[Hg] ROSIBEL SALGADO RN [facility] 13:24:33 Social History Question Answer Notes LastModified by Organizat ion Details LastModified Time Tobacco Smoking Status Current Every Day Smoker DAVID DURAN, [facility] 11/03/2023 13:42:55 Date Of Most Recent HSA 10/06/2024 [email or web address] Information not available 10/06/2024 Would You Say That, In General, Your Health Is Poor [email or web address] Information not available 10/06/2024 Women Aged 18-50 - Would You Like To Become In The Next Year? (Female Patients Only) No [email or web address] Information not available 10/06/2024 How Often Does Anyone, Including Family, Physically Hurt You? Never Information not available 10/06/2024 How Often Does Anyone, Including Family, Insult Or Talk Down To You? Never [email or web address] Information no t available 10/06/2024 How Often Does Anyone, Including Family, Threaten You With Harm? Never [email or web address] Information not available 10/06/2024 How Often Does Anyone, Including Family, Scream Or Curse At You? Never [email or web address] Information not available 10/06/2024 Within The Past 12 Months, You Worried That Your Food Would Run Out Before You Got Money To Buy More. Sometimes True Information not available 10/06/2024 Within The Past 12 Months, The Food You Bought Just Didn't Last And You Didn't Have Money To Get More. Sometimes True [email or web address] Information not available 10/06/2024 How Hard Is It For You To Pay For The Very Basics Like Food, Housing, Medical Care, And Heating? Would You Say It Is: Very Hard [email or web address] Information not available 10/06/2024 In The Past 12 Months, Has Lack Of Reliable Transportation Kept You From Medical Appointments, Meetings, Work Or From Getting Things Needed For Daily Living? Yes [email or web address] Information not available 10/06/2024 What Is Your Housing Situation Today? I Have Housing. [email or web address] Information not available 10/06/2024 How Often In The Past Year Have You Used Marijuana (including Smoking, Vaping, Dabbing, Or Edibles)? Never [email or web address] Information not available 10/06/2024 How Often In [...] Example, Heroin, Cocaine, Meth, Salvia, Inhalants)? Never [email or web address] Information not available 10/06/2024 Have You Ever Used IV Drugs? Yes 10 Years Ago [email or web address] Information not available 10/06/2024 What Matters Most To You? Vision, Overall Health [email or web address] Information not available 10/06/2024 During The Past Four Weeks Has Your Physical And Emotional Health Limited Your Social Activities With Family And Friends, Neighbors, Or Groups? Moderately [email or web address] Information not available 10/06/2024 During The Past Four Weeks, Was Someone Available To Help You If You Needed And Wanted Help? (For Example, If You Latrobe Very Nervous, Lonely, Or Blue; Got Sick And Had To Stay In Bed; Needed Someone To Talk To; Needed Help With Daily Chores; Or Needed Help Just Taking Care Of Yourself.) Yes- Quite A Bit [email or web address] Information not available 10/06/2024 During The Past Four Weeks, What Was The Hardest Physical Activity You Could Do For At Least 2 Minutes? Heavy [email or web address] Information not available 10/06/2024 Can You Get To Places Out Of Walking Distance Without Help? (For Example, Can You Travel Alone On Buses Or Taxis, Or Drive Your Own Car?) No [email or web address] Information not available 10/06/2024 Can You Go Shopping For Groceries Or Clothes Without Someone? s Help? No [email or web address] Information not available 10/06/2024 Can You Prepare Your Own Meals? No [email or web address] Information not available 10/06/2024 Can You Do Your Housework Without Help? Yes [email or web address] Information not available 10/06/2024 Because Of Any Health Problems, Do You Need The Help Of Another Person With Your Personal Care Needs Such As Eating, Bathing, Dressing, Or Getting Around The House? Yes [email or web address] Information not available 10/06/2024 Can You Handle Your Own Money Without Help? Yes [email or web address] Information not available 10/06/2024 Are You Having Difficulties Driving Your Car? Not Applicable- I Do Not Use A Car [email or web address] Information not available 10/06/2024 How Often During The Past Four Weeks Have You Been Bothered By Any Of The Following Problems? Falling Or Dizzy When Standing Up? Often [email or web address] Information not available 10/06/2024 Sexual Problems? Never [email or web address] Informat ion not available 10/06/2024 Trouble Eating Well? Never [email or web address] Information not available 10/06/2024 Teeth Or Denture Problems? Always [email or web address] Information not available 10/06/2024 Problems Using The Telephone? Always Can't See Phone [email or web address] Information not available 10/06/2024 Tiredness Or Fatigue? Always [email or web address] Information not available 10/06/2024 Have You Had 2 Or More Falls Or Sustained An Injury With A Fall In The Last Year? Yes [email or web address] Information not available 10/06/2024 Do You Have Difficulty With Walking Or Balance? Yes [email or web address] Information not available 10/06/2024 Do You Currently Use A Hearing Device? No [email or web address] Information not available 10/06/2024 Do You Currently Have Any Trouble With Your Vision? Yes [email or web address] Information no t available 10/06/2024 Do You Exercise For About 20 Minutes Three Or More Days A Week? No- I Usually Do Not Exercise Much [email or web address] Information not available 10/06/2024 Are There Any Safety Concerns In Your Home (see Attached CDC Pamphlet)? Yes Stairs, Cooking [email or web address] Information not available 10/06/2024 How Often Do You Have Trouble Taking Medicines The Way You Have Been Told To Take Them? Sometimes I Take Them As Prescribed [email or web address] Information not available 10/06/2024 How Confident Are You That You Can Control And Manage Most Of Your Health Problems? Somewhat Confident [email or web address] Information not available 10/06/2024 Do You Currently Have Any Difficulty With Your Hearing? No [email or web address] Information not available 10/06/2024 Date Of Most Recent SBINS 10/06/2024 [email or web address] Information not available 10/06/2024 What Was The [...] Cessation Counseling Been Provided? Yes Pt Declines. [email or web address] Information not available 10/06/2024 On What Date Was Tobacco Cessation Counseling Provided? 10/06/2024 Pt Just Not Ready Yet. [email or web address] Information not available 10/06/2024 How Many Years [...] mcg/0.3 mL 4 completed ARMIDA HIRSCH MA [facility], [place] - [facility] 09/01/2024 18:38:23 Influenza, split virus, trivalent, PF 4 completed SHARON HENDERSON MD [facility] [address], [place], [address], [facility] 09/01/2024 16:09:15 Td (adult), 5 Lf tetanus toxoid, preservative free, adsorbed 7 completed Not Available [facility] 08/27/2023 06:21:08 Tdap 7 completed Not Available [facility] 08/27/2023 06:21:08 Novel [id number], all formulations 9 completed Not Available [facility] 08/27/2023 06:21:08 Td(adult) unspecified formulation 1 completed Not Available [facility] 08/27/2023 06:21:08 Influenza, split virus, trivalent, preservative 6 completed Not Available [facility] 08/27/2023 06:21:08 Influenza, split virus, quadrivalent, PF 2 completed Not Available [facility] 08/27/2023 06:21:08 Influenza, split virus, quadrivalent, PF 3 completed Not Available [facility] 08/27/2023 06:21:08 Influenza, split virus, quadrivalent, preservative 8 completed Not Available [facility] 08/27/2023 06:21:09 COVID-19, mRNA, LNP-S, PF, 100 mcg/0.5mL dose or 50 mcg/0.25mL dose 2 completed Not Available [facility] 08/27/2023 06:21:09 COVID-19 vaccine, vector-nr, rS-Ad26, PF, 0.5 mL 1 completed Not Available [facility] 08/27/2023 06:21:09 COVID-19, mRNA, LNP-S, bivalent, PF, 30 mcg/0.3 mL dose 3 completed Not Available [facility] 08/27/2023 06:21:09 pneumococcal polysaccharide PPV23 0 completed Not Available [facility] 08/27/2023 06:21:09 influenza, unspecified formulation 9 completed Not Available [facility] 08/27/2023 06:21:09 influenza, unspecified formulation 8 completed Not Available [facility] 08/27/2023 06:21:09 influenza, unspecified formulation 7 completed Not Available [facility] 08/27/2023 06:21:09 Influenza, split virus, quadrivalent, PF 3 completed Not Available [facility] 10/29/2023 05:31:09 Pneumococcal conjugate PCV20, polysaccharide LED946 conjugate, adjuvant, PF 3 completed Not Available [facility] 10/29/2023 05:31:11 Past Encounters Encounter ID Performer Location Encounter Start Date Encounter Closed Date Diagnosis/Indication Diagnosis SNOMED-CT Code Diagnosis ICD10 Code Diagnosis Note [id number] ROSIBEL SALGADO RN [address] [address] 10/06/2024 12:53:21 10/06/2024 14:03:34 Adult health examination 024345079 Z00.00 Muscle weakness 84988013 M62.81 Decompensa curtis cirrhosis of liver 944573298 K74.60 See above. No evidence of ascites, varices or jaundice. Hyperlipidemia 87029105 E78.5 Chronic hepatitis C 1283 74629 B18.2 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 6898322400 1288730 J44.9 Recommende d switch from Breo to Trelegy for LABA/LAMA coverage as well as ICS. 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 25361054 E11.8 Health Concerns Section Related Observation LastModified by Organization Detai ls LastModified Time None Recorded Concern Status LastModified by Organization Details LastModified Time None Recorded Payers Encounter Date Sequence Insurance Name Policy Number Policy Salmon Covered Member ID Salmon Member ID Guarantor Name 10/06/2024 2 [facility] (MEDICAID) Lea Miramontes [id number] Lea Miramontes 10/06/2024 1 MEDICARE-OR - PART A - [facility] [address] (MEDICARE) Lea Miramontes [id number] Lea Miramontes Notes Date Note Type [...] issues with transportation, mentioning she can access [employer] and that RCT is reliable. She is open to working with the [facility] director of casework department Chari whom she met at the beginning of today's visit for the first time. Lea notes that her partner has not initiated Hepatitis C treatment, but states this is not currently a concern. She mentions that the medication affects intimacy and adds that her partner is almost 60 years old. ROSIBEL SALGADO RN [facility], [facility]. 10/06/2024 16:21:16 OBGyn Episode No OBEpisode recorded.
--- OUTSIDE RECORDS SUMMARY | 2024-11-10 15:29 | XMS_ITS | Encounter Summary ---
Author Organization [facility] Address [address] [place] [address] Care Team Providers Care Air Intercept Controller Supervisor Name Role Phone Sharon Vargas MD Primary Care Provider Encounter Details Date Type Department Care Team (Late st Contact Info) Description 10/21/2024 Lab Requisition [facility] Pathology & Laboratory Medicine - [address] [address] Outr Resulting Lab, Provider Social History Tobacco [...] Info) Description 12/22/2024 14:45 EST Office Visit [facility] Ophthalmology - [address] [id number] Hung Harp MD [address] [facility], [address] [place] [phone] 01/01/2025 8:00 EDT Office Visit [facility] Nephrology - [address] [address] Cherrie Fam MD [facility], [address] [place] [phone] 03/28/2025 13:00 EDT Office Visit [facility] [address] [place] [address] Consuelo Nicole MD [address] [place] [phone] documented as of this encounter Procedures Procedure Name Priority Date/Time Associated Diagnosis Comments C3 COMPLEMENT Routine 10/20/2024 13:10 EST C4 COMPLEMENT Routine 10/20/2024 13:10 EST ANTI NUCLEAR AB (DEIDRE), IFA Routine 10/20/2024 13:10 EST documented in this encounter Results * C3 COMPLEMENT (10/20/2024 13:10 EST) C3 Complement 151 81 - 157 mg/dL 10/23/2024 10:23 EST [facility] Blood VENOUS BLOOD / Unknown 10/20/2024 13:10 EST 10/21/2024 21:58 EST us Provider Outr Resulting Lab CHEMISTRY & BLOOD GA S ORDERABLES Final Result Performing Organization Address City/Va Hospital/ZIP Co de Phone Number [facility] [address] [place] [phone] * C4 COMPLEMENT (10/20/2024 13:10 EST) C4 Complement 28 13 - 39 mg/dL 10/23/2024 10:23 EST [facility] Blood VENOUS BLOOD / Unknown 10/20/2024 13:10 EST 10/21/2024 21:58 EST us Provider Outr Resulting Lab CHEMISTRY & BLOOD GA S ORDERABLES Final Result [facility] [address] [place] [address] * (ABNORMAL) ANTI NUCLEAR AB (DEIDRE), IFA (10/20/2024 13:10 EST) DEIDRE Interpretation Positive(A) Negative 10/23/2024 14:43 EST [facility] Comment: For titers greater [...] Pattern 1 1:160 Speckled 10/23/2024 14:43 EST [facility] Blood VENOUS BLOOD / Unknown 10/20/2024 13:10 EST 10/21/2024 21:58 EST Narrative [facility] - 10/23/2024 14:43 EST Results were obtained with the [employer] NOVA Lite HEp-2 DEIDRE Kit by indirect immunofluorescence. us Provider Outr Resulting Lab IMMUNOLOGY AND SEROL OGY ORDERABLES Final Result Performing Organization Address City/State/[facility] Co de Phone Number [facility] [address] [place] [address] documented in this encounter Visit Diagnoses Not on filedocumented in this encounter Care Teams Air Intercept Controller Supervisor Relationship Specialty Start Date End Date Sharon Vargas MD [address] [place] [address] PCP - General 09/09/15 documented as of this encounter
--- OUTSIDE RECORDS SUMMARY | 2024-11-10 15:29 | XMS_ITS | Encounter Summary ---
Author Organization [facility] Address [address] [place] [address] Care Team Providers Care Forestry Worker Name Role Phone Sharon Vargas MD Primary Care Provider Reason for Visit * Reason Onset Date Comments Appointment Related 03/08/2024 Encounter Details Date Type Department Care Team (Late st Contact Info) Description 03/08/2024 Telephone [facility] [address] [place] [address] Consuelo Nicole MD [address] [place] [phone] Appointment Related Social History Tobacco Use Types [...] Info) Description 12/22/2024 14:45 EST Office Visit [facility] [address] [place], [place] [address] Hung Harp MD [address] [facility], [address] [place] [phone] 01/01/2025 8:00 EDT Office Visit [facility] Nephrology - [facility] [address] [place], [place] [address] Cherrie Fam MD 1 [facility], [address] [place] [phone] 03/28/2025 13:00 EDT Office Visit [facility] Ophthalmology [facility] [address] [place], [place] [address] Consuelo Nicole MD [address] [place] [phone] documented as of this encounter Visit Diagnoses Not on filedocumented in this encounter Care Teams Forestry Worker Relationship Specialty Start Date End Date Sharon Vargas MD [address] [place] [phone] PCP - General 09/09/15 documented as of this encounter
--- OUTSIDE RECORDS SUMMARY | 2024-11-10 15:29 | XMS_ITS | Encounter Summary ---
Author Organization [facility] Address [address] [place] [address] Care Team Providers Care Group Leader Semiconductor Processing Name Role Phone Sharon Vargas MD Primary Care Provider [phone] Encounter Details Date Type Department Care Team (Late st Contact Info) Description 10/07/2024 Lab Requisition [facility] Pathology & Laboratory Medicine - [address] [address] Outr Resulting Lab, Provider Social History Tobacco [...] Description 12/22/2024 14:45 EST Office Visit [facility] Ophthalmology - [address] 2390[address] Hung Harp MD [address] [facility], [address] [place] [phone] 01/01/2025 8:00 EDT Office Visit [facility] Nephrology - [address] [address]65[address] Cherrie Fam MD [address] [facility], [address] [place] [phone] 03/28/2025 13:00 EDT Office Visit [facility] [address] [place] [address] Consuelo Nicole MD [address] [place] [phone] documented as of this encounter Procedures Procedure Name Priority Date/Time Associated Diagnosis Comments HCV RNA DETECT QUANT Routine 10/06/2024 14:00 EST documented in this encounter Results * (ABNORMAL) HCV RNA DETECT QUANT (10/06/2024 14:00 EST) HCV RNA Qualitative Detected( A) Undetected 10/09/2024 11:37 EST [facility] HCV RNA Quantitative 2,950,000 (H) Undetected IU/mL 10/09/2024 11:37 EST [facility] Blood VENOUS BLOOD / Unknown 10/06/2024 14:00 EST 10/07/2024 22:18 EST Narrative [facility] - 10/09/2024 11:37 EST The quantification range of this assay is 15 IU/mL to 100,000,000 IU/mL. Testing was performed using the Jaron HCV test ([employer] with the jaron 6800 System. us Provider Outr Resulting Lab CHEMISTRY & BLOOD GA S ORDERABLES Final Result [facility] [address] [place] [address] documented in this encounter Visit Diagnoses Not on filedocumented in this encounter Care Teams Group Leader Semiconductor Processing Relationship Specialty Start Date End Date Sharon Vargas MD [address] [place] [address] PCP - General 09/09/15 documented as of this encounter
--- OUTSIDE RECORDS SUMMARY | 2024-11-10 15:29 | XMS_ITS | Continuity of Care Document ---
Author Organization [place] - [facility], [facility] Address [address] [place] [address] Care Team Providers Care Board Stacker Name Role Phone [facility] OPHTHALMOLOGY [facility] Ophtha lmologist RACHELL FIORE Account Retention Representative [phone] Assessment Encounter Date Assessment Date Assessment LastModified [...] She is under the care of a communications engineer at [facility], Elbert Oliver. - Plan: a. Encourage patient to schedule an appointment for toenail trimming and routine foot care with her communications engineer. COPD and Shortness of Breath - Assessment: Patient experiences increased shortness of breath and currently uses albuterol. She has a refill for Breo and expresses interest in trying Trelegy. - Plan: a. Prescribe Trelegy and send the prescription to [facility]. b. Advise patient to continue using Breo as prescribed. c. Schedule a follow-up in one month to monitor breathing and lung function. Sleep Apnea - Assessment: Patient reports symptoms indicative of sleep apnea, including mouth breathing, gasping for air, and waking abruptly due to breathing difficulties. - Plan: a. Refer patient for a sleep study at [facility] to assess for sleep apnea and evaluate [...] - Plan: a. Provide information on the [facility] [...] devoted to today's encounter, including both the jnic-lr-nufq time with the patient and/or family/caregiver and uqu-fgkd-bg-face time I personally spent is 40 minutes. [email or web address] Not available 09/01/2024 16:11:48 Plan of Treatment Reminders Order Date Submit Date Provider Last Modified By Organization Details Last Modified Time Details Appointments Follow Up 2024 01:50P Roly HENDERSON Not available Not available Not available Follow Up 2024 02:30P Roly HENDERSON Not available Not available Not available Lab hemoglobi n A1C, fingersti ck 2023 024 [email or web address] [facility], [address] [place] [address], [place], [address], 09/02/2024 08:08:00 Referral podiatris t referral - well known to Dr. Valentino , (over)due for nail/foot care adn general f/u. 2023 024 [email or web address] [facility], [address] [facility], [place], [address], 10/16/2024 04:49:35 sleep medicine referral - witnessed nocturnal apnea, pt with obesity, COPD, chronic opioid dependenc e; eval for central vs obstructi ve sleep apnea 2023 024 conner n21 [facility], [address] [place] [address] [facility] [place], [address], 10/05/2024 06:58:37 Procedures None recorded. Surgeries None recorded. Imaging None recorded. Medication Orders Trelegy Ellipta 200 mcg-62.5 mcg-25 mcg powder for inhalatio n 2023 024 [email or web address] [facility] [address], [place], [address], 10/06/2024 14:45:17 atorvasta tin 40 mg tablet 2023 024 [email or web address] [facility] [address], [place], [address], 09/02/2024 08:08:00 escitalop karlo 10 mg tablet 2023 024 [email or web address] 13 [facility] [address], [place], [address], 10/19/2024 11:43:11 omeprazol e 40 mg capsule,d elayed release 2023 024 [email or web address] [facility] [address], [place], [address], 09/02/2024 08:08:00 amlodipin e 5 mg tablet 2023 024 [email or web address] [facility] [address], [place], [address], 09/02/2024 08:08:00 Diovan HCT 320 mg-25 mg tablet 2023 [facility] [address], [place], [address], 10/19/2024 11:44:52 amitripty line 25 mg tablet 2023 [facility] [address], [place], [address], 09/02/2024 08:08:00 Tresiba FlexTouch U-200 insulin 200 unit/mL (3 mL) subcutane ous pen 2023 [facility] [address], [place], [address], 10/19/2024 11:50:52 metformin ER 500 mg tablet,ex tended release 24 hr 2023 [facility] [address], [place], [address], 10/19/2024 11:51:21 Accu-Chek Guide test strips 2023 [email or web address] [facility] [address], [place], [address], 09/02/2024 08:08:00 Patient TargetsNo targets recorded. Patient Instructions Encounter Date Encounter Id Patient Instructions Last Modified By Organization Details Last Modified Time 09/01/2024 [id number] advised to quit smoking [email or web address] Not available 09/01/2024 16:09:15 Dear Lea, Thank [...] on medications. - Sleep study referral to [facility] for sleep apnea evaluation. - Contact [facility] for toenail trimming appointment. - Stool sample test and mammogram to be scheduled after Wednesday. - Lifestyle Adjustments: - Continue efforts to reduce smoking. - Ensure proper diet and manage meal preparations, possibly with assistance from [employer]. - Support Services: - Contact [facility] for [...] Warm regards, Sharon Henderson MD Family Medicine Not available 09/01/2024 16:11:10 Reason for Referral Sleep Medicine Referral for Sleep apnea witnessed nocturnal apnea, pt with obesity, COPD, chronic opioid dependence; eval for central vs obstructive sleep apnea Referring Physician: Sharon Henderson Family Medicine, Encounter Date: 09/01/2024 Instructor Painting Referral for Toen ail thickened well known to Dr. Valentino, (over)due for nail/foot care adn general f/u. Referring Physician: Family Darcy Bolivar, Encounter Date: 09/01/2024 Results Created Date Observation Date Name Description Value Unit Range Abnormal Flag Note LastModifiedBy Organization Detail LastModifiedTime 09/01/20 24 09/01/2024 hemog lobin A1C, finge rstic k hemoglobin A1C 6.6 % <5.7 Not Available [facility] [address] [facility], [place], [address], 09/01/2024 15:49:53 10/07/20 24 10/07/2024 CT ABD pelvi s wo IV or oral contr ast [facility] [id number] TRANSC RIPTIO N REPORT _ Patien t Name: ERROL RUTH MS MRN: Sex: : Age: [id number] F [id number] Accoun t: Access ion: Admit: StayTy pe: [id number] 2023 E Ammon d: Order ID: Submit curtis: Rosetta Flood er: 2023 14:14 [id number] CAROLINA MCINTOSH curtis: Techno logist : Result [...] If you are a health care [facility] and have any questi ons regard ing this report , please contac t the number below. For patien ts who have questi ons please contac t the health care [facility] requ[facility] curtis your imagin g first. Electr onical ly signed by: Júnior iVck MD Radiol jimmy Adams n ([phone]), at 2023 3:[address] [facility] (Lab) [address] [place] [address], [address], 10/07/2024 15:57:10 11/01/19 25 11/01/2024 xr chest tiffany ble or 1V [facility] [place] RADIOL OGY [place] Jeff santamaria [address] RADIOL OGY [facility] RIPTIO N REPORT _ Luis eugene Name: ERROL RUHT MS MRN: Sex: : Age: [id number] F [id number] Accoun t: Access ion: Admit: StayTy pe: [id number] 025 E Ammon d: Order ID: Submit curtis: Ordertrey ng Provid er: 2024 01:40 [id number] ABBI JALLOH curtis: Techno logist : Result [...] If you are a health care [facility] and have any questi ons regard ing this report , please contac t the number below. For patien ts who have questi ons please contac t the health care [facility] requ[facility] curtis your imagin g first. Electr onical ly signed by: Lala Patel MD Radiol jimmy schaefer ([phone]), at 025 2:[address] [facility] (Lab) [address] [place] [address], [address], 11/01/2024 02:19:02 11/02/19 25 11/01/2024 EKG order jude ng 12 lead [facility] Jeff santamaria [address] EKG TRANSC RIPTIO N REPORT _ Accoun t: Access ion: Admit: StayTy pe: [id number] 025 E/R Observ ation: Order ID: Submit curtis: Rosetta urena Provid er: 2024 02:16 [id number] ABBI JALLOH _ [place] [id number] [facility] Date: [facility]-01 Pat Name: ABELINO RUTH MS Depart ment: Burak eugene ID: [id number] Room: Gender : Brit Munson emir: : [birth year] Reques curtis By: ABBI Reynoso Order Number : [id number] Charbel junior MD: Gentry Finney Measur ements Interv als Henderson Rate: 104 P: 76 NJ: 176 QRS: -32 QRSD: 96 T: 0 QT: 370 QTc: 486 Interp retive Statem ents Sinus tachyc ardia Left axis deviat ion Compar ed to ECG 2022 05:17: 21 Left-a xis deviat ion now presen t Sinus rhythm no longer presen t Electr onical ly Signed On 025 8:26:2 3 EST by Gentry Finney INTERFACE [facility] (Lab) [address] [place] [address], [address], 11/02/2024 08:28:22 11/02/19 25 11/01/2024 CT [facility] [place] [id number] RADIOL OGY TRANSC SUKHDEEP Schaefer REPORT _ Luis eugene Name: ERROL RUTH MS MRN: Sex: : Age: [id number] F [id number] Accoun t: Access ion: Admit: StayTy pe: [id number] 025 I Ordere d: Order ID: Submit curtis: Rosetta urena Provid er: 2024 08:54 [id number] CLIVE BONNER curtis: Techno logist : Result [...] sugges tive of anemia Thank you for lettin g us partic ipate in the care of this patien t. If you are a health care [facility] and have any questi ons regard ing this report , please contac t the number below. For patien ts who have questi ons please contac t the health care profes sional that reques curtis your imagin g first. Electr onical ly signed by: Jose Lopez MD Radiol jimmy schaefer ([phone]), at 025 9:[address] [facility] (Lab) [address] [place] [address], [address], 11/02/2024 09:37:40 11/02/19 25 11/02/2024 nm lung venti latio n and perfu ronan* [facility] RADIOL OGY [place] Jeff santamaria [address] RADIOL OGY TRANSC RIPTIO N REPORT _ Patien t Name: ERROL RUTH MS MRN: Sex: : Age: [id number] F [id number] Accoun t: Access ion: Admit: StayTy pe: [id number] 025 I Sarae d: Order ID: Submit curtis: Orderi ng Provid er: 2024 14:46 [id number] GARTH NORWOOD curtis: Techno logist : Result [...] were obtain ed in the anteri or, investor relations manager ior, latera l and obliqu e projec tions. This was follow ed by intrav michaelous admini strati on of 4 mCi of [...] If you are a health care [facility] and have any questi ons regard ing this report , please contac t the number below. For patien ts who have questi ons please contac t the health [facility] requ[facility] curtis your imagin g first. Electr onical ly signed by: Júnior Vick MD Radiol jimmy Adams olive ([phone]), at 025 11:[address] [facility] (Lab) [address] [place] [address], [address], 11/02/2024 11:53:05 Result Notes None recorded. Problems Name Problem SNOMED Code Status Onset Date Resolution Date Notes Provider Name and Address Organization Details Recorded Time Complica tion due to diabetes mellitus 51141093 Active 2023 SHARON HENDERSON MD [address], [place] [id number] , [facility] 4 14:41:01 Gastroes ophageal reflux disease without esophagi tis 189784295 Active [address], [address] 4 15:41:02 Sleep apnea 78656586 Active [address], [address] 4 15:41:33 Dyspnea on exertion 79541014 Active [address], [address] 16:02:44 Smoker 69443861 Active [address], [address] 16:03:44 Legal blindnes s 62069100 Active [address], [address] 16:04:00 Toenail thickene d 936646610 Active [address], [address] 16:07:44 Pruritic rash 19488378 Active [address], [address] 16:09:31 Retroper itoneal lymphade nopathy 533845797 Active 2023 burak MIRAMONTES RN null, [facility] 5 12:10:08 Renal failure syndrome 86312694 Active 2023 burak MIRAMONTES RN [facility] 5 12:10:41 Acute exacerba tion of chronic obstruct vishnu pulmonar y disease 956063189 Active 2024 SHARON HENDERSON MD [address], [place], [address] , [facility] 5 15:11:03 Acute renal insuffic iency 825552070 Active 2024 SHARON HENDERSON MD [address], [place], [address] , [facility] 5 16:57:59 Chronic kidney disease stage 5 723947295 Active 2024 ULISES BARKER MD [address], [place], [address] , [facility] 5 11:20:54 [facility] hyperten ronan 31704979 Active 2005 [facility] 4 09:53:15 Hyperlip idemia 36135285 Active 2005 [facility] 4 10:08:20 Uncompli cated moderate persiste nt asthma 248299098 Active 2005 [facility] 4 10:24:46 Severe obesity 51586972301 104 Active 2005 [facility] 4 10:22:09 Chronic hepatiti s C 627587355 Active 2003 pos viral load not treated [facility] 4 09:47:44 Pain of right shoulder joint 52678852369 580916 Active 2014 [facility] 4 10:17:43 Neuropat hy due to type 2 diabetes mellitus 86843688152 9106 Active 2014 uncontro lled, w/neurol o comps [facility] 4 10:17:28 Idiopath ic osteoart hritis 050744198 Active 2014 DJD, knees, bilatera l [facility] 4 10:08:49 Renal disorder due to type 2 diabetes mellitus 223497042 Active 2015 Diabetic nephropa thy [facility] 4 10:21:57 Derangem ent of right knee 67470313609 692665 Completed 201505/05/2016 Problem Code: M23.91; Problem Code Type: ICD-10; Not Available [facility] 3 04:12:16 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 95566111655 9104 Active 2015 (not billable after 6) Kristie Fran [facility] 4 10:16:21 Cocaine abuse 89563487 Active 2016 episodic [facility] 4 09:50:22 Tobacco use cessatio n educatio n Active 2016 [facility] 4 10:22:41 Gallblad mark calculus with acute cholecys titis and no obstruct ion 657271218 Completed 201612/29/2016 Problem Code: K80.00; Problem Code Type: ICD-10; Not Available [facility] 3 04:12:17 Acute asthma 331151581 Completed 201604/13/2017 Problem Code: J45.901; Problem Code Type: ICD-10; Not Available [facility] 3 04:12:17 Cellulit is 508463628 Completed 201607/16/2017 Problem Code: L03.90; Problem Code Type: ICD-10; Not Available [facility] 3 04:12:17 Atopic dermatit is 63104390 Active 2017 [facility] 4 09:45:01 Impetigo 09125237 Completed 201705/03/2018 Problem Code: L01.00; Problem Code Type: ICD-10; Not Available [facility] 3 04:12:17 Screenin g mammogra phy Completed 201804/20/2019 Problem Code: Z12.31; Problem Code Type: ICD-10; Not Available [facility] 3 04:12:18 History of diabetic foot ulcer 04138718548 698226 Active 2018 [facility] 4 10:01:51 Chronic obstruct vishnu pulmonar y disease 48132079 Active 2018 Asthma with COPD [facility] 4 09:48:31 Anemia 133694090 Active 2018 [facility] 4 09:39:01 Albumin level - finding 253522195 Active 2018 decrease d [facility] 4 09:37:16 Peripher al venous insuffic iency 87969193 Active 2018 Stasis ulcer [facility] 4 10:18:18 Cough 62725997 Completed 201908/22/2020 Problem Code: R05; Problem Code Type: ICD-10; Not Available [facility] 3 04:12:19 Endocrin e/metabo lic screenin g Completed 202012/28/2020 Problem Code: Z13.29; Problem Code Type: ICD-10; Not Available [facility] 3 04:12:19 Counseli ng Active 2020 Immuniza tion counseli ng [facility] 4 09:51:24 Generali zed anxiety disorder 27529312 Active 2020 [facility] 4 10:01:19 Vomiting 398256596 Completed 202006/26/2021 Problem Code: R11.10; Problem Code Type: ICD-10; Not Available [facility] 3 04:12:19 Insect bite Completed 202007/09/2021 Not Available [facility] 3 04:12:20 Cirrhosi s of liver 10299981 Active 2022 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 with possible contribu tion of [place], decompen sated [facility] 4 09:49:47 Jaundice 44224420 Active 2022 [facility] 4 10:09:01 Muscle weakness 10137408 Active 2022 (general ized) [facility] 4 10:16:46 Opioid abuse 4942037 Completed 202209/28/2023 Problem Code: F11.10; Problem Code Type: ICD-10; Not Available [facility] 4 05:34:22 Lichen simplex chronicu s 64430703 Active 2022 Neuroder matitis [facility] 4 10:10:12 History of osteomye litis 282157244 Active 2022 [facility] 4 10:05:22 Opioid abuse 2396151 Completed 201807/14/2023 03/04/20 21 - Comments only - Sharon Henderson MD - offered scg for OBT but she states she plans to try to establis h tx thru [facility]. Not interest ed in Suboxone or Vivitrol ; might be interest ed in Sublocad e. Problem Code: F11.10; Problem Code Type: ICD-10; Not Available [facility] 3 04:12:22 Cholelit hiasis without obstruct ion 12880693 Completed 201512/22/2016 Problem Code: K80.20; Problem Code Type: ICD-10; Not Available [facility] 3 04:12:22 Candidia sis of vagina 89593673 Completed 201503/27/2016 Problem Code: B37.3; Problem Code Type: ICD-10; Not Available [facility] 3 04:12:23 Traumati c or non-trau matic injury 037474179 Completed 201607/14/2023 Problem Code: T14.8; Problem Code Type: ICD-10; Not Available [facility] 3 04:12:23 Disorder of teeth AND/OR supporti [facility] es 286192396 Completed 201503/17/2016 Problem Code: K08.8; Problem Code Type: ICD-10; Not Available [facility] 3 04:12:23 Uncompli cated asthma 131881778 Completed 200507/14/2023 Problem Code: J45.909; Problem Code Type: ICD-10; Not Available [facility] 3 04:12:23 Hyperten sive disorder 99915891 Completed 200507/14/2023 Not Available [facility] 3 04:12:24 Scar conditio ns and fibrosis of skin 330224442 Completed 201604/23/2017 Problem Code: L90.5; Problem Code Type: ICD-10; Not Available [facility] 3 04:12:24 Human papillom a virus infectio n 410816379 Completed 201607/14/2023 Problem Code: B97.7; Problem Code Type: ICD-10; Not Available [facility] 3 04:12:24 Morbid obesity 223041088 Completed 200507/14/2023 Not Available [facility] 3 04:12:24 Foot ulcer due to type 2 diabetes mellitus 63564019614 00 Completed 201512/22/2016 01/20/20 19 - Comments [...] E11.621; Problem Code Type: ICD-10; Kristie rivera [facility] 4 09:59:50 Periapic al abscess 313858096 Completed 201403/17/2016 Problem Code: K04.7; Problem Code Type: ICD-10; Not Available [facility] 3 04:12:25 Drug abuse 91235473 Completed 200707/14/2023 Problem Code: 305.90; Problem Code Type: ICD-9; Not Available [facility] 3 04:12:25 Opioid dependen ce in remissio n 780456834 Completed 201807/14/2023 09/26/20 19 - Comments only [...] F11.21; Problem Code Type: ICD-10; Not Available [facility] 3 04:12:25 Gynecolo gic examinat ion Completed 201602/02/2017 Problem Code: Z01.419; Problem Code Type: ICD-10; Not Available [facility] 3 04:12:26 Nodule on toe 577053425 Completed 201605/25/2019 Not Available [facility] 3 04:12:26 Pain of right knee joint 96078793926 4100 Completed 201502/02/2017 Problem Code: M25.561; Problem Code Type: ICD-10; Not Available [facility] 3 04:12:26 Candidia sis of skin 71417651 Completed 201503/27/2016 Problem Code: B37.2; Problem Code Type: ICD-10; Not Available [facility] 3 04:12:26 Dysuria 90029828 Completed 201505/07/2016 Problem Code: R30.0; Problem Code Type: ICD-10; Not Available [facility] 3 04:12:27 Retinopa thy due to type 2 diabetes mellitus 491268015 Completed 201507/14/2023 Problem Code: E11.319; Problem Code Type: ICD-10; Not Available [facility] 3 04:12:27 Infectio n of skin and/or subcutan eous tissue 63407651 Completed 202204/30/2023 Problem Code: L08.89; Problem Code Type: ICD-10; Not Available [facility] 3 04:12:27 Tobacco dependen ce caused by cigarett es 60994219779 710523 Completed 200305/25/2019 Problem Code: F17.210; Problem Code Type: ICD-10; Not Available [facility] 3 04:12:27 Opioid dependen ce 26896432 Completed 200309/04/2015 05/25/20 19 - Comments only - Alexandro Grewal - Doing well in treatmen t at [facility]. Problem Code: F11.20; Problem Code Type: ICD-10; Not Available [facility] 3 04:12:28 Asthma 092156027 Completed 200507/14/2023 Not Available [facility] 3 04:12:28 Pain of joint of knee 9735724089 Completed 201407/14/2023 Problem Code: M25.569; Problem Code Type: ICD-10; Not Available [facility] 3 04:12:28 Cellulit is of right lower limb 67693765793 709722 Completed 201805/25/2019 Problem Code: L03.115; Problem Code Type: ICD-10; Not Available [facility] 3 04:12:28 Shoulder joint pain 968510123 Completed 201407/14/2023 Problem Code: 719.41; Problem Code Type: ICD-9; Not Available [facility] 3 04:12:29 Smoker 53755768 Completed 200307/14/[address], [facility] [address] , [facility] 4 16:03:44 Chronic ulcer of foot 737018643 Completed 201601/05/2017 Problem Code: L97.529; Problem Code Type: ICD-10; Not Available [facility] 3 04:12:29 Type 2 diabetes mellitus without complica tion 946534320 Completed 200307/14/2023 Problem Code: 250.00; Problem Code Type: ICD-9; MD Shailesh [address], [facility] [address] , [facility] 4 14:43:16 Pain of left knee joint 69357748619 4107 Completed 201407/14/2023 Problem Code: M25.562; Problem Code Type: ICD-10; Not Available [facility] 3 04:12:30 Depressi ve disorder 23365551 Completed 200307/14/[address], [facility] [address] , [facility] 4 14:41:17 Hypergly cemia due to type 2 diabetes mellitus 71187416590 9109 Completed 200309/04/2015 Problem Code: E11.65; Problem Code Type: ICD-10; Not Available [facility] 3 04:12:30 Chest pain 95575150 Completed 201605/25/2019 Problem Code: R07.89; Problem Code Type: ICD-10; Not Available [facility] 3 04:12:31 Drug dependen ce 325769762 Completed 200307/14/2023 Problem Code: 304; Problem Code Type: ICD-9; Not Available [facility] 3 04:12:31 Cellulit is of toe of right foot 61014629174 128972 Completed 201505/11/2016 Problem Code: L03.031; Problem Code Type: ICD-10; Not Available [facility] 3 04:12:31 Osteoart hritis of knee 103355708 Completed 201402/02/2017 Problem Code: M17.9; Problem Code Type: ICD-10; Not Available [facility] 3 04:12:32 History of infectio us disease 655680325 Completed 201409/04/2015 Problem Code: Z86.19; Problem Code Type: ICD-10; [facility] 4 10:05:01 Tobacco user 435601523 Completed 200508/06/2015 Not Available [facility] 3 04:12:32 Viral screenin g Completed 202209/10/2023 Problem Code: Z11.52; Problem Code Type: ICD-10; Not Available [facility] 4 05:34:15 Acute upper respirat ory infectio n 49546218 Completed 202208/18/2023 Problem Code: J06.9; Problem Code Type: ICD-10; Not Available [facility] 4 05:34:15 Type 2 diabetes mellitus without complica tion 876696969 Completed 202309/01/2024 Problem Code: 250.00; Problem Code Type: ICD-9; SHARON HENDERSON MD [address], [place], [address] , [facility] 4 14:43:16 Asthma-c hronic obstruct vishnu pulmonar y disease overlap syndrome 32170410541 990469 Active 2023 Kristie Fran [facility] 4 09:39:21 Decompen sated cirrhosi s of liver 060629806 Active 2023 Child Bourgeois score 8/Class B as of 12/2022 [facility] 4 09:51:34 Visual impairme nt 102813641 Active 2023 [facility] 4 10:29:20 Thickene d nails 868829376 Active 2023 [facility] 4 10:22:14 Thickeni ng of skin 57363784 Completed 202309/01/2024 SHARON HENDERSON MD [address], [place], [address] [facility] 4 14:43:15 Acquired hammer toes of bilatera l feet 88744282792 255060 Active 2023 [facility] 4 09:37:02 History of amputati on of right foot 71869871516 186402 Active 2023 [facility] 4 10:01:25 Combined form of senile cataract 08455481 Active 2023 [facility] 4 09:50:32 Unintent ional weight loss 482199220 Active 2022 [facility] 4 10:24:46 History of amputati on of lesser toe 437594589 Active 2022 [facility] 4 09:38:36 History of intraven ous drug abuse 83736374455 191436 Active 2007 heroin [facility] 4 09:40:14 Left ventricu lar hypertro phy 09767761 Active 2015 mild concentr ic 12/31 echo (nl EF) [facility] 4 09:47:08 Follicul itis 52092904 Active 2022 [facility] 4 09:52:22 Peripher al edema 415869785 Active 2014 [facility] 4 09:52:55 Mild persiste nt asthma 174449919 Active 2022 with acute exacerba tion [facility] 4 09:54:28 Family history of Alzheime r's disease 035253550 Active 2018 mother age 50, maternal grandmot her, maternal aunts and uncles; no genetic testing done [facility] 4 09:56:26 Diabetic foot ulcer 781949887 Active 2022 [facility] 4 09:59:46 History of cholecys tectomy 977056676 Active 2016 laparosc opi, 01/01 [facility] 4 10:00:55 History of human papillom a virus infectio n 91824854019 9102 Active 01/01; nl pap; neg colpo 04/03 incl ECC; neg pap 11/05; 5 yr f/u [facility] 4 10:04:56 History of opioid abuse 43256810979 9100 Active 2018 Hx of opioid abuse -- Saveda resumed suboxone 09/07 [facility] 4 10:08:01 Edentulo 296171839 Active 2015 s/p complete extr due to advanced caries 03/02 [facility] 4 10:13:37 Major depressi ve disorder 076164850 Active 2022 Major depressi on [facility] 4 10:15:28 Traumati c partial amputati on of right great toe Active 2018 initial encounte r [facility] 4 10:23:54 Stasis dermatit is 45124094 Active 2021 Venous stasis dermatit is [facility] 4 10:30:44 Diabetes mellitus 08723545 Completed 202309/01/[address], [facility] [address] , [facility] 4 14:43:16 Type 2 diabetes mellitus 10124891 Completed 202309/01/[address], [facility] [address] , [facility] 14:43:16 Obesity 332434065 Active [address], [facility] [address] , [facility] 4 20:58:25 Hemoglob in A1c greater than 9% indicati ng poor diabetic control 03261338261 4104 Completed 202309/01/[address], [facility] [address] , [facility] 14:43:16 Problem Notes None recorded. Medical Equipment None Reported. Allergies Allergen ID Allergen Name Allergen Category Reaction Reaction Severity Criticality Documentation Date Start Date Code Code System Note Provider Name and Address Organization Details Recorded Time 92256 lisinopri l medicatio n cough moderate Not available 08/27/20232009 44286 [facility] 4 10:31:16 42092 metoprolo l succinate medicatio n other moderate Not available 08/27/20232018 50574 4 RxNorm No react ion enter ed [facility] 4 10:31:36 33179 codeine medicatio n hives moderate Not available 08/27/20232002 2670 [facility]Norm [facility] 4 10:31:10 Medications Name Sig [...] Stockings Dx: peripher al edema 11/04 completed [place] Teo Not Available Not Available Not Available gabapenti n 300 mg tablet 3 cap three times daily 06/16 completed Not Available Not Available Not Available albuterol 2INH four times daily 07/31 completed Not Available Not Available Not Available Nystatin (Topical) cream apply BID 05/28 completed Not Available Not Available Not Available Nebulizer Dx: Asthma J45.40 Smoking Z71.6 2018 active [place] [facility] [place] Not Available Not Available Not Available Humalog [...] Dose change to 18mg q day per [facility] 04/12/19; 20mg as of 03/2020 Not Available Not Available Not Available Suboxone 2 mg-0.5 mg sublingua l film Take 2 film sublingu ally once daily 05/08 completed Per [facility] 04/12/19, total daily dose increase d [...] Updated DateTime 4 160.02 cm 35.5 kg/m2 68924.9 1 g 97.5 [degF] 94 % 94 % 88 /min 168 mm[Hg] 98 mm[Hg] ARMIDA HIRSCH MA [facility] 4 15:02:01 Social History Question Answer Notes LastModified by Organizat ion Details LastModified Time Tobacco Smoking Status Current Every Day Smoker SURJIT KITCHEN LPN null, [facility] 11/03/2023 13:42:55 Date Of Most Recent HSA 10/06/2024 [email or web address] Information not available 10/06/2024 Would You Say That, In General, Your Health Is Poor [email or web address] Information not available 10/06/2024 Women Aged 18-50 - Would You Like To Become In The Next Year? (Female Patients Only) No [email or web address] Information not available 10/06/2024 How Often Does Anyone, Including Family, Physically Hurt You? Never [email or web address] Information not available 10/06/2024 How Often Does Anyone, Including Family, Insult Or Talk Down To You? Never Information no t available 10/06/2024 How Often Does Anyone, Including Family, Threaten You With Harm? Never [email or web address] Information not available 10/06/2024 How Often Does Anyone, Including Family, Scream Or Curse At You? Never [email or web address] Information not available 10/06/2024 Within The Past 12 Months, You Worried That Your Food Would Run Out Before You Got Money To Buy More. Sometimes True [email or web address] Information not available 10/06/2024 Within The Past 12 Months, The Food You Bought Just Didn't Last And You Didn't Have Money To Get More. Sometimes True [email or web address] Information not available 10/06/2024 How Hard Is It For You To Pay For The Very Basics Like Food, Housing, Medical Care, And Heating? Would You Say It Is: Very Hard [email or web address] Information not available 10/06/2024 In The Past 12 Months, Has Lack Of Reliable Transportation Kept You From Medical Appointments, Meetings, Work Or From Getting Things Needed For Daily Living? Yes [email or web address] Information not available 10/06/2024 What Is Your Housing Situation Today? I Have Housing. [email or web address] Information not available 10/06/2024 How Often In The Past Year Have You Used Marijuana (including Smoking, Vaping, Dabbing, Or Edibles)? Never [email or web address] Information not available 10/06/2024 How Often In The Past Year Have You Used Prescription Medications That Were Not Prescribed To You? Never [email or web address] Information not available 10/06/2024 How Often In The Past Year Have You Taken Your Own Prescription Medication More Than The Way It Was Prescribed Or For Different Reasons Than Its Intended Purpose? Never [email or web address] Information no t available 10/06/2024 How Often In The Past Year Have You Used Other Drugs (for Example, Heroin, Cocaine, Meth, Salvia, Inhalants)? Never [email or web address] Information not available 10/06/2024 Have You Ever Used IV Drugs? Yes 10 Years Ago [email or web address] Information not available 10/06/2024 What Matters Most To You? Vision, Overall Health [email or web address] Information not available 10/06/2024 During The Past Four Weeks Has Your Physical And Emotional Health Limited Your Social Activities With Family And Friends, Neighbors, Or Groups? Moderately Information not available 10/06/2024 During The Past Four Weeks, Was Someone Available To Help You If You Needed And Wanted Help? (For Example, If You [place] Very Nervous, Lonely, Or Blue; Got Sick And Had To Stay In Bed; Needed Someone To Talk To; Needed Help With Daily Chores; Or Needed Help Just Taking Care Of Yourself.) Yes- Quite A Bit [email or web address] Information not available 10/06/2024 During The Past Four Weeks, What Was The Hardest Physical Activity You Could Do For At Least 2 Minutes? Heavy [email or web address] Information not available 10/06/2024 Can You Get To Places Out Of Walking Distance Without Help? (For Example, Can You Travel Alone On Buses Or Taxis, Or Drive Your Own Car?) No Information not available 10/06/2024 Can You Go Shopping For Groceries Or Clothes Without Someone? s Help? No [email or web address] Information not available 10/06/2024 Can You Prepare Your Own Meals? No [email or web address] Information not available 10/06/2024 Can You Do Your Housework Without Help? Yes [email or web address] Information not available 10/06/2024 Because Of Any Health Problems, Do You Need The Help Of Another Person With Your Personal Care Needs Such As Eating, Bathing, Dressing, Or Getting Around The House? Yes [email or web address] Information not available 10/06/2024 Can You Handle Your Own Money Without Help? Yes [email or web address] Information not available 10/06/2024 Are You Having Difficulties Driving Your Car? Not Applicable- I Do Not Use A Car [email or web address] Information not available 10/06/2024 How Often During The Past Four Weeks Have You Been Bothered By Any Of The Following Problems? Falling Or Dizzy When Standing Up? Often [email or web address] Information not available 10/06/2024 Sexual Problems? Never [email or web address] Informat ion not available 10/06/2024 Trouble Eating Well? Never [email or web address] Information not available 10/06/2024 Teeth Or Denture Problems? Always [email or web address] Information not available 10/06/2024 Problems Using The Telephone? Always Can't See Phone [email or web address] Information not available 10/06/2024 Tiredness Or Fatigue? Always [email or web address] Information not available 10/06/2024 Have You Had 2 Or More Falls Or Sustained An Injury With A Fall In The Last Year? Yes [email or web address] Information not available 10/06/2024 Do You Have Difficulty With Walking Or Balance? Yes [email or web address] Information not available 10/06/2024 Do You Currently Use A Hearing Device? No [email or web address] Information not available 10/06/2024 Do You Currently Have Any Trouble With Your Vision? Yes [email or web address] Information no t available 10/06/2024 Do You Exercise For About 20 Minutes Three Or More Days A Week? No- I Usually Do Not Exercise Much [email or web address] Information not available 10/06/2024 Are There Any Safety Concerns In Your Home (see Attached CDC Pamphlet)? Yes Stairs, Cooking [email or web address] Information not available 10/06/2024 How Often Do You Have Trouble Taking Medicines The Way You Have Been Told To Take Them? Sometimes I Take Them As Prescribed [email or web address] Information not available 10/06/2024 How Confident Are You That You Can Control And Manage Most Of Your Health Problems? Somewhat Confident [email or web address] Information not available 10/06/2024 Do You Currently Have Any Difficulty With Your Hearing? No Information not available 10/06/2024 Date Of Most Recent SBINS 10/06/2024 [email or web address] Information not available 10/06/2024 What Was The [...] Cessation Counseling Been Provided? Yes Pt Declines. [email or web address] Information not available 10/06/2024 On What Date Was Tobacco Cessation Counseling Provided? 10/06/2024 Pt Just Not Ready Yet. [email or web address] Information not available 10/06/2024 How Many Years [...] Time Mother Family history of kidney disease karla Not available 2022 03:50:23 Mother Family history of diabetes mellitus type 1 linpui. Not available 2022 03:50:26 Notes:*Problem: Mother: chichi [...] mcg/0.3 mL 4 completed ARMIDA HIRSCH MA [facility], [facility] 09/01/2024 18:38:23 Influenza, split virus, trivalent, PF 4 completed MD Shailesh [address], [place], [address], [facility] 09/01/2024 16:09:15 Td (adult), 5 Lf tetanus toxoid, preservative free, adsorbed 7 completed Not Available [facility] 08/27/2023 06:21:08 Tdap 7 completed Not Available [facility] 08/27/2023 06:21:08 Novel [id number], all formulations 9 completed Not Available [facility] 08/27/2023 06:21:08 Td(adult) unspecified formulation 1 completed Not Available [facility] 08/27/2023 06:21:08 Influenza, split virus, trivalent, preservative 6 completed Not Available [facility] 08/27/2023 06:21:08 Influenza, split virus, quadrivalent, PF 2 completed Not Available [facility] 08/27/2023 06:21:08 Influenza, split virus, quadrivalent, PF 3 completed Not Available [facility] 08/27/2023 06:21:08 Influenza, split virus, quadrivalent, preservative 8 completed Not Available [facility] 08/27/2023 06:21:09 COVID-19, mRNA, LNP-S, PF, 100 mcg/0.5mL dose or 50 mcg/0.25mL dose 2 completed Not Available [facility] 08/27/2023 06:21:09 COVID-19 vaccine, vector-nr, rS-Ad26, PF, 0.5 mL 1 completed Not Available [facility] 08/27/2023 06:21:09 COVID-19, mRNA, LNP-S, bivalent, PF, 30 mcg/0.3 mL dose 3 completed Not Available [facility] 08/27/2023 06:21:09 pneumococcal polysaccharide PPV23 0 [...] Hospital 10/29/2023 05:31:09 Pneumococcal conjugate PCV20, polysaccharide [id number] conjugate, adjuvant, PF 3 completed Not Available [facility] 10/29/2023 05:31:11 Past Encounters Encounter ID Performer Location Encounter Start Date Encounter Closed Date Diagnosis/Indication Diagnosis SNOMED-CT Code Diagnosis ICD10 Code Diagnosis Note [id number] SHARON HENDERSON MD [facility] [address] [place] [address] 09/01/2024 14:30:48 09/01/2024 15:49:47 Asthma-chronic obstructive pulmonary disease overlap syndrome [id number] 5545659 J44.9 Recommende d switch from Breo to Trelegy for LABA/LAMA coverage as well as ICS. Essential hypertension 96110517 I10 Not well-contr olled related to being out of medication for 2 weeks, meds renewed, follow-up 1 month. Anxiety 38094546 F41.9 Neuropathy due to type 2 diabetes mellitus 1829731202 49768 E11.40 With recurrent callus right foot that is causing pain. Will refer back to Dr. Oliver. Hyperlipidemia 92773641 E78.5 Gastroesop hageal reflux disease without esophagitis 111047008 K21.9 Continue daily PPI. Sleep apnea 12849659 G47 .30 Central/op ioid mediated versus OLVIN. Advised sleep eval. Referral made. History of fall 35648330 9 Z91.81 Continue use of assistive device such as cane. Keep follow-up with eye doctor. Active or passive immunization 601445089 Z23 Dyspnea on exertion 6084 5006 R06.09 Could be due to worsening COPD, untreated sleep apnea might be contributi ng, CHF also certainly a possibilit y. Will urge echo and cards eval at follow-up if not significan tly improved with change in inhaler. Encouraged continued efforts at smoking cessation. Smoker 15438081 F17.210 Tobacco us e cessation education 064816431 Z71.6 She has cut back to half pack per day, encouraged continued work toward complete cessation. Legal blindness 00949375 H54.8 Will ask care coordinato r to connect [facility] with [facility] assistive technologi es. Food insecurity 49005294 3 Z59.41 Will ask care coordinato r to assist with choices for care and Meals on Wheels applicatio ns. 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 Pt is open to treating HepC with antivirals , has not kept GI consult referrals, open to updating labs at next visit and considerin g treatment through this office. Toenail thickened 044877 000 R23.8 Needs to see her communications engineer for toenail and general foot care. Will place referral to facilitate earlier appointmen t. 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 SHARON HENDERSON MD [address], [place], [address], [facility]. 09/01/2024 16:11:54 OBGyn Episode No OBEpisode recorded.
--- OUTSIDE RECORDS SUMMARY | 2024-11-10 15:29 | XMS_ITS | Encounter Summary ---
Author Organization [facility] Address [address] [place] [address] Care Team Providers Care Caretaker Grounds Name Role Phone Sharon Vargas MD Primary Care Provider [phone] Encounter Details Date Type Department Care Team (Late st Contact Info) Description 10/06/2024 Lab Requisition [facility] Pathology & Laboratory Medicine - [address] [address] Outr Resulting Lab, Provider Social History Tobacco [...] Description 12/22/2024 14:45 EST Office Visit [facility] Ophthalmology - [address] [address] Hung Harp MD [address] [facility], [address] [place] [phone] 01/01/2025 8:00 EDT Office Visit [facility] Nephrology - [address] [phone] Cherrie Fam MD [address] [facility], [address] [place] [phone] 03/28/2025 13:00 EDT Office Visit [facility] Ophthalmology [facility] [address] [place] [address] Consuelo Nicole MD [address] [place] [phone] documented as of this encounter Visit Diagnoses Not on filedocumented in this encounter Care Teams Caretaker Grounds Relationship Specialty Start Date End Date Sharon Vargas MD [address] [place] [phone] PCP - General 09/09/15 documented as of this encounter
--- OUTSIDE RECORDS SUMMARY | 2024-11-10 15:30 | XMS_ITS | Encounter Summary ---
Author Organization [facility] Address [address] [place] [address] Care Team Providers Care Coach Builder Name Role Phone Unavailable Primary Care Provider Unavailabl e Encounter Details Date Type Department Care Team (Late st Contact Info) Description 01/15/2000 Results Only [facility] conversion [address] [place] [address] Yoel Deleon MD [address] [place], [place] [id number] Social History Tobacco Use Types Packs/Day Years [...] Info) Description 12/22/2024 14:45 EST Office Visit [facility] - [facility] [address] [place], [place] [phone] Hung Harp MD [address] [facility], [address] [place] [phone] 01/01/2025 8:00 EDT Office Visit [facility] Nephrology - [address] [address] Cherrie Fam MD [facility], [address] [place] [phone] 03/28/2025 13:00 EDT Office Visit [facility] [address] [place] [address] Consuelo Nicole MD [address] [place] [phone] documented as of this encounter Procedures Procedure [...] ? LEA MCGOWAN ? Accession #: ? [id number] : ? 1975 (Age: 25) ??F ?Collect Date: ? 01/15/2000 Location: ?Receive Date: ? 01/15/2000 Provider: ?YOEL DELEON MD Copy to: ?YOEL DELEON MD ? Specimen/Source: ?Pap Smear (One Slide) Last Menstrual Period: ? GYNECOLOGIC ??CYTOPATHOLOGY ??REPORT Name: LEA MCGOWAN ? FA : 1975 ?? 25Y F ?Client ID: [id number] #: [id number] ? Clinician: YOEL DELEON MD ?? Location: [facility] ??Copy to: ?? Specimen: ?Pap [...] Faye, SCT(ASCP) ? Report Date: ?? 01/22/2000 [employer] Archived Tests - Final Diagnosis Text Field: Clinical History : ? Document reviewed and electronically signed by: ? Conversion ? Report Date: ??01/22/2000 00:00 End of Report NATHAN SETHI 01/15/2000 13:2 4 EST 01/15/2000 13:25 EST us Yoel Deleon MD PATHOLOGY ORDERABLES Final Resul t [facility] [address] [place] [address] documented in this encounter Visit Diagnoses Not on filedocumented in this encounter
--- OUTSIDE RECORDS SUMMARY | 2024-11-10 15:30 | XMS_ITS | Encounter Summary ---
Author Organization [facility] Address [address] [place] [address] Care Team Providers Care Siding Mechanic Name Role Phone Sharon Vargas MD Primary Care Provider [phone] Encounter Details Date Type Department Care Team (Late st Contact Info) Description 06/26/2021 Lab Requisition [facility] Pathology & Laboratory Medicine - [address] [address] Outr Resulting Lab, Provider Social History Tobacco [...] Info) Description 12/22/2024 14:45 EST Office Visit [facility] Ophthalmology - [address] [phone] Hung Harp MD [address] [facility], [address] [place] [phone] 01/01/2025 8:00 EDT Office Visit [facility] Nephrology - [address] [phone] Cherrie Fam MD [address] [facility], [address] [place] [phone] 03/28/2025 13:00 EDT Office Visit [facility] Ophthalmology [facility] [address] [place], [place] [address] Consuelo Nicole MD [address] [place] [phone] documented as of this encounter Procedures Procedure Name Priority Date/Time Associated Diagnosis Comments ZZCOVID-19 TEST [facility] PCR Today 06/25/2021 16:45 EDT COVID-19 TESTING Routine 06/25/2021 16:4 5 EDT documented in this encounter Results * COVID-19 TEST [facility] PCR (06/25/2021 16:45 EDT) Swab ENTIRE NASOPHARYNX / Unknown 06/25/2021 16:45 EDT 06/26/2021 16:08 EDT us Provider Outr Resulting Lab MICROBIOLOGY - GENER AL ORDERABLES Final Result [facility] [address] [place] [address] * COVID-19 TESTING (06/25/2021 16:45 EDT) COVID-19 rt-PCR Result Negative Negative 06/27/2021 11:08 EDT [facility] Comment: This test has not [...] performed using the jaron SARS-CoV-2 assay ([employer] on the Jaron 6800 System Performing Lab Jaron 6800 [facility] 06/27/2021 11:08 EDT [facility] Swab 06/25/2021 16:4 5 EDT 06/26/2021 16:08 EDT us Provider Outr Resulting Lab MICROBIOLOGY - GENER AL ORDERABLES Final Result [facility] [address] [place] [address] documented in this encounter Visit Diagnoses Not on filedocumented in this encounter Care Teams Siding Mechanic Relationship Specialty Start Date End Date Sharon Vargas MD [address] [place] [phone] PCP - General 09/09/15 documented as of this encounter
--- OUTSIDE RECORDS SUMMARY | 2024-11-10 15:30 | XMS_ITS | Encounter Summary ---
Author Organization [facility] Address [address] [place] [address] Care Team Providers Care Marble Installer Name Role Phone Unavailable Primary Care Provider Unavailabl e Encounter Details Date Type Department Care Team (Late st Contact Info) Description 09/11/2002 Results Only [facility] - Maple conversion [address] [place] [address] Penny Vaughan, EKATERINA [address] [place] [address] Social History Tobacco Use Types [...] Info) Description 12/22/2024 14:45 EST Office Visit [facility] Ophthalmology - [facility] [address], [place] [address] Hung Harp MD 111 [facility], Level 5 [place] [address] 01/01/2025 8:00 EDT Office Visit [facility] Nephrology - [address] 789831 Cherrie Fam MD [address] [place], [place] [address]ab, Level 2 [place] [phone] 03/28/2025 13:00 EDT [facility] [address] [place] [address] Consuelo Nicole MD [address] [place] [address] documented as of this encounter Procedures Procedure [...] ? LEA MCGOWAN ? Accession #: ? [id number] : ? 1975 (Age: 27) ??F ?Collect Date: ? 09/11/2002 Location: ? [facility] ? Receive Date: ? 09/13/2002 Provider: ?PENNY VAUGHAN MANAGER INFORMATION Copy to: ? Specimen/Source: ?ThinPrep Pap Test, Cervix/Endocervix Last Menstrual Period: ? 09/01/02 ? SPECIMEN ADEQUACY ? Satisfactory for Evaluation - transformation zone component present GENERAL CATEGORIZATION ? Negative for Intraepithelial Lesion or Malignancy ? Document reviewed and electronically signed by: ? Felipe Montgomery, CT(ASCP) ? Report Date: ??09/19/2002 08:11 End of Report NATHAN SETHI 09/11/2002 09/13/2002 Penny Vaughan MANAGER INFORMATION PATHOLOGY ORDERABLES Final R esult NATHAN SETHI [address] [place] [address] documented in this encounter Visit Diagnoses Not on filedocumented in this encounter
--- OUTSIDE RECORDS SUMMARY | 2024-11-10 15:30 | XMS_ITS | Encounter Summary ---
Author Organization [facility] Address [address] [place] [address] Care Team Providers Care Store Clerk Name Role Phone Sharon Vargas MD Primary Care Provider [phone] Encounter Details Date Type Department Care Team (Late st Contact Info) Description 04/21/2023 Lab Requisition [facility] Pathology & Laboratory Medicine - [address] [address] Outr Resulting Lab, Provider Social History Tobacco [...] 12/22/2024 14:45 EST Office Visit [facility] Ophthalmology - [address] [id number] Hung Harp MD 111 [facility], Level 5 [place] [phone] 01/01/2025 8:00 EDT Office Visit [facility] Nephrology - [address] 9079[address] Cherrie Fam MD [facility], Level 2 [place] [phone] 03/28/2025 13:00 EDT Office Visit [facility] Ophthalmology [facility] [address] [place] [address] Consuelo Nicole MD [address] [place] [address] documented as of this encounter Procedures Procedure Name Priority Date/Time Associated Diagnosis Comments ANAEROBE CULTURE, REFERENCE Routine 04/21/2023 14:17 EDT documented in this encounter Results * ANAEROBE CULTURE, REFERENCE (04/21/2023 14:17 EDT) Organism ID No Anaerobes Isolated 05/01/2023 12:00 EDT [facility] Tissue ENTIRE TOE / Unknown 04/21/2023 14:17 EDT 04/21/2023 21:25 EDT us Provider Outr Resulting Lab MICROBIOLOGY - GENER AL ORDERABLES Final Result Performing Organization Address City/State/[facility] Co de Phone Number [facility] [address] [place] [address] documented in this encounter Visit Diagnoses Not on filedocumented in this encounter Care Teams Store Clerk Relationship Specialty Start Date End Date Sharon Vargas MD [address] [place] [phone] PCP - General 09/09/15 documented as of this encounter
--- OUTSIDE RECORDS SUMMARY | 2024-11-10 15:30 | XMS_ITS | Encounter Summary ---
Author Organization [facility] Address [address] [place] [address] Care Team Providers Care Machine Tool Dresser Name Role Phone Unavailable Primary Care Provider Unavailabl e Encounter Details Date Type Department Care Team (Late st Contact Info) Description 05/30/2001 Results Only [facility] - [place] conversion [address] [place] [address] Yoel Deleon MD [address] [place], [place] [id number] Social History Tobacco Use Types Packs/Day Years [...] EST Office Visit [facility] Ophthalmology - [facility] [address] [place], [place] 389[address] Hung Harp MD 111 [facility], Level 5 [place] [phone] 01/01/2025 8:00 EDT Office Visit [facility] Nephrology - [address] 982741 Cherrie Fam MD [facility], Level 2 [place] [phone] 03/28/2025 13:00 EDT Office Visit [facility] [address] [place] [address] Consuelo Nicole MD [address] [place] [phone] documented as of this encounter Procedures Procedure [...] ? LEA LAMAS ? Accession #: ? [id number] ? : ? 1975 (Age: 26) ??F [...] ??Serial sections reveal a pinpoint lumen. ??Two dental detail representative cross sections are submitted as (A). Received in formalin labelled Lamas and right fallopian tube #2 is a cylindrical piece of ewing-pink fallopian tube which measures 1.1 cm in length and 0.6 cm in external diameter. ??Serial sections reveal a pinpoint lumen. ??Two dental detail representative cross sections are submitted as (B). ??(Dr. Conroy-)/[facility] End of Report NATHAN SETHI 05/30/2001 05/30/2001 15: 59 EDT us Yoel Deleon MD PATHOLOGY ORDERABLES Final Resul t [facility] [address] [place] [address] documented in this encounter Visit Diagnoses Not on filedocumented in this encounter
--- OUTSIDE RECORDS SUMMARY | 2024-11-10 15:30 | XMS_ITS | Encounter Summary ---
Author Organization [facility] Address [address] [place] [address] Care Team Providers Care Egg Factory Worker Name Role Phone Sharon Vargas MD Primary Care Provider [phone] Encounter Details Date Type Department Care Team (Late st Contact Info) Description 04/01/2022 Lab Requisition [facility] Pathology & Laboratory Medicine - [address] [address] Outr Resulting Lab, Provider Social History Tobacco [...] Info) Description 12/22/2024 14:45 EST Office Visit [facility] Ophthalmology - [address] [address] Hung Harp MD 111 [facility], Level 5 [place] [phone] 01/01/2025 8:00 EDT Office Visit [facility] Nephrology - [address] 800591 Cherrie Fam MD 1 [facility] Level 2 [place] [phone] 03/28/2025 13:00 EDT Office Visit [facility] Ophthalmology [facility] [address] [facility] [facility] [place] [address] Consuelo Nicole MD 58 [place] [address] documented as of this encounter Procedures Procedure Name Priority Date/Time Associated Diagnosis Comments GGT Routine 04/01/2022 14:29 EDT documented in this encounter Results * (ABNORMAL) GGT (04/01/2022 14:29 EDT) GGT 224(H) <44 U/L 04/01/2022 21:22 EDT [facility] Blood VENOUS BLOOD / Unknown 04/01/2022 14:29 EDT 04/01/2022 21:09 EDT us Provider Outr Resulting Lab CHEMISTRY & BLOOD GA S ORDERABLES Final Result Performing Organization Address City/State/[facility] Co de Phone Number [facility] [address] [place] [address] documented in this encounter Visit Diagnoses Not on filedocumented in this encounter Care Teams Egg Factory Worker Relationship Specialty Start Date End Date Sharon Vargas MD [address] [place] [phone] PCP - General 09/09/15 documented as of this encounter
--- OUTSIDE RECORDS SUMMARY | 2024-11-10 15:30 | XMS_ITS | Encounter Summary ---
Author Organization [facility] Address [address] [place] [address] Care Team Providers Care Cutting Table Operator Name Role Phone Sharon Vargas MD Primary Care Provider [phone] Reason for Visit * Reason Comments Eye Problem * Prior Authorization (Routine) - Authorized Specialty Diagnoses / Procedures Referred By Johnnie eugene Referred To Contact Diagnoses Diabetic macular edema (HCC-CMS) Procedures SD INTRAVITREAL NJX PHARMACOLOGIC AGT SPX SD AFLIBERCEPT INJECTION SD BEVACIZUMAB INJECTION [address] [address] Phone: tel: fax: [address] [address] Phone: tel: fax: Referral ID Status Reason Start Date Expiration Date V isits Requested Visits Authorized [id number] Authorized 2 2 Encounter Details Date Type Department Care Team (Late st Contact Info) Description 02/11/2024 14:00 EDT Office Visit [address] 312231 Hung Harp MD [address] [place] [address], [facility] 5 [place] [address] Social History Tobacco Use Types [...] edema, with long-term current use of insulin ([facility]) OCT, RETINA - OU - BOTH EYES [...] Info) Description 12/22/2024 14:45 EST Office Visit [facility] Ophthalmology - [address] [phone] Hung Harp MD 111 [facility], Level 5 [place] [address] 01/01/2025 8:00 EDT Office Visit [facility] Nephrology - [address] 0446[address] Cherrie Fam MD [address] [place] [address], Level 2 [place] [address] 03/28/2025 13:00 EDT Office Visit [facility] Ophthalmology [address] 330291 Consuelo Nicole MD [address] [place] [phone] documented as of this encounter Procedures Procedure Name Priority Date/Time Associated Diagnosis Comments OCT, RETINA - OU - BOTH EYES Routine 02/11/2024 14:36 EDT Type 2 diabetes mellitus with both eyes affected by moderate nonproliferative retinopathy without macular edema, with long-term current use of insulin ([facility]) documented in this encounter Results * OCT, RETINA - OU - BOTH EYES (02/11/2024 14:36 EDT) Narrative [facility] OPHTHALMOLOGY - 02/11/2024 16:43 EDT Right Eye Quality was poor. Scan locations included juxtafoveal. Progression has improved. Findings include intraretinal fluid. Left Eye Quality was borderline. Progression has been stable. Findings include normal foveal contour. Notes Some inner retinal atrophy both eyes OCT-A enlarged CJ left eye (poor signal right eye us Hung Harp MD OPHTH TOMOGRAPHY Final Result [facility] OPHTHALMOLOGY documented in this encounter Visit Diagnoses Diagnosis Type 2 diabetes mellitus with both eyes affected by moderate nonproliferative retinopathy without macular edema, with long-term current use of insulin ([facility])- Primary Combined forms of age-related cataract [...] all 4 quadrants. No alireza Care Teams Cutting Table Operator Relationship Specialty Start Date End Date Sharon Vargas MD [address] [place] [phone] PCP - General 09/09/15 documented as of this encounter
--- OUTSIDE RECORDS SUMMARY | 2024-11-10 15:30 | XMS_ITS | Encounter Summary ---
Author Organization [facility] Address [address] [place] [address] Care Team Providers Care Facility Service Manager Name Role Phone Sharon Vargas MD Primary Care Provider [phone] Reason for Referral * Consult, Test and Treat (Routine) - Receiving Office to Obtain Authorization Specialty Diagnoses / Procedures Referred By Johnnie eugene Referred To Contact Ophthalmology Diagnoses Type 2 diabetes mellitus with both eyes affected by moderate nonproliferative retinopathy without macular edema, with long-term current use of insulin ([facility]) Consuelo Nicole MD Phone: tel: fax: Hung Harp MD Phone: tel: fax: Referral ID Status Reason Start Date Expiration Date Visits Requested Visits Authorized [id number] Receiving Office to Obtain Authorization Specialty Services [...] Info) Description 12/29/2023 10:45 EDT Office Visit [facility] Ophthalmology [facility] [address] [place] [address] Consuelo Nicole MD [address] [place] [phone] Social History Tobacco Use Types Packs/Day Years [...] appointment is: 02/09/2024 at our office [address] [place], [place] Your surgery date for your first eye is: 03/23/2024 at [facility] (check in at Patient Registration). The [...] Psychiatric: Depression Endocrine: Diabetes Hematologic: Anemia Immunologic: Inventory Analyst: Exposures: None Other: Attestation: Base Eye Exam [...] lens. Refraction Manifest Refraction (Auto) Sphere Cylinder Bryant Dist VA Right -10.50 +2.25 154 Left -5.00 +2.50 035 Manifest Refraction #2 Sphere Cylinder Bryant Dist VA Right -7.25 +2.00 150 20/300 Left -3.75 Sphere 20/60 Cycloplegic Refraction Sphere Cylinder Bryant Dist VA Right -7.25 +2.00 150 Left [...] 14:45 EST Office Visit [facility] Ophthalmology [address] 115[address] Hung Harp MD 111 [facility], Level 5 [place] [phone] 01/01/2025 8:00 EDT Office Visit [facility] Nephrology - [address] [address] Cherrie Fam MD [facility], Level 2 [place] [phone] 03/28/2025 13:00 EDT Office Visit [facility] Ophthalmology [address] [address] Consuelo Nicole MD [address] [place] [phone] Scheduled Referrals Name Type Priority Associated Diagnoses Orde r Schedule AMB CONS/FOLLOW UP OPHTHALMOLOGY Outpatient Referral Routine/Next Available Type 2 Diabetes Mellitus With Both Eyes Affected By Moderate Nonproliferative Retinopathy Without Macular Edema, With Long-Term Current Use Of Insulin ([facility]) Expected: 01/29/2024 (Approximate) , Expires: 12/28/2024 documented as of this encounter Procedures Procedure Name Priority Date/Time Associated Diagnosis Comments OCT, RETINA - OU - BOTH EYES Routine 12/29/2023 13:57 EDT Type 2 diabetes mellitus with both eyes affected by moderate nonproliferative retinopathy without macular edema, with long-term current use of insulin ([facility]) documented in this encounter Results * OCT, RETINA - OU - BOTH EYES (12/29/2023 13:57 EDT) Narrative [facility] OPHTHALMOLOGY - 12/29/2023 13:57 EDT OCT macula Right: signal strength: 2/10, thickness 268 microns, normal foveal contour, possible intraretinal fluid Left: signal strength: 5/10, thickness 234 microns, normal foveal contour, no intra/subretinal fluid us Consuelo Nicole MD OPHTH TOMOGRAPHY Final Resu lt [facility] OPHTHALMOLOGY documented in this encounter Visit Diagnoses Diagnosis Type 2 diabetes mellitus with both eyes affected by moderate nonproliferative retinopathy without macular edema, with long-term current use of insulin ([facility])- Primary Combined forms of age-related cataract of [...] lens. Manifest Refraction #1 (Auto) Sphere Cylinder Bryant Dist VA Right eye -10.50 +2.25 154 Left eye -5.00 +2.50 035 Manifest Refraction #2 Sphere Cylinder Bryant Dist VA Right eye -7.25 +2.00 150 20/300 Left eye -3.75 Sphere 20/60 Cycloplegic Refraction Sphere Cylinder Bryant Dist VA Right eye -7.25 +2.00 150 Left eye -3.75 +0.75 035 20/80+1 Care Teams Facility Service Manager Relationship Specialty Start Date End Date Sharon Vargas MD [address] [place] [address] PCP - General 09/09/15 documented as of this encounter
--- OUTSIDE RECORDS SUMMARY | 2024-11-10 15:30 | XMS_ITS | Encounter Summary ---
Author Organization [facility] Address [address] [place] [address] Care Team Providers Care Soda Fountain Manager Name Role Phone Sharon Henderson MD Primary Care Provider [phone] Encounter Details Date Type Department Care Team (Late st Contact Info) Description 10/19/2018 Results Only [facility] [phone] Sharon Henderson MD [address] [place] [address] Social History Tobacco Use Types [...] Info) Description 12/22/2024 14:45 EST Office Visit [facility] Ophthalmology - [facility] [address] [place], [place] [phone] Hung Harp MD 111 [facility], Level 5 [place] [phone] 01/01/2025 8:00 EDT Office Visit [facility] Nephrology - [address] [phone] Cherrie Fam MD [facility], Level 2 [place] [address] 03/28/2025 13:00 EDT Office Visit [facility] [address] [place] [address] Consuelo Nicole MD [address] [place] [phone] documented as of this encounter Procedures Procedure [...] by: ? Felipe Montgomery, CT(ASCP) ? Report ??Date: 10/27/2018 09:21 HPV with Pap Test ? Date Ordered: ? 10/27/2018 ? Status: ?? Signed Out ?Date Complete: ? 10/28/2018 ? By: ??System Interface ? Date Reported: ? 10/28/2018 ? Interpretation RESULT: Negative for HPV. No E6 or E7 mRNA is detected from HPV types 16,18,31,33,35, 39,45,51,52,56,58, 59,66, and 68 by cleaning supervisor mediated amplification. Comments Document reviewed and electronically signed by: ? System Interface ? Report date: 10/28/2018 By the signature above, the attending physician certifies that he/she has personally conducted a gross and/or microscopic examination of the described specimens and rendered or confirmed the above diagnosis. End of Report [facility] 10/19/2018 10/21/2018 us Sharon Henderson MD PATHOLOGY ORDERABLES Final Res ult [facility] [address] [place] [address] documented in this encounter Visit Diagnoses Not on filedocumented in this encounter Care Teams Soda Fountain Manager Relationship Specialty Start Date End Date Sharon Henderson MD [address] [place] [phone] PCP - General 09/09/15 documented as of this encounter
--- OUTSIDE RECORDS SUMMARY | 2024-11-10 15:30 | XMS_ITS | Encounter Summary ---
Author Organization [facility] Address [address] [place] [address] Care Team Providers Care Chemical Equipment Repairer Name Role Phone Sharon Vargas MD Primary Care Provider [phone] Encounter Details Date Type Department Care Team (Late st Contact Info) Description 09/20/2023 [facility] [address] [place] [phone] Salome Myles MD [address] [address] Social History Tobacco Use Types [...] [facility] Ophthalmology - Main [address] [address]24[address] Hung Harp MD 111 [facility], Level 5 [place] [phone] 01/01/2025 8:00 EDT Office Visit [facility] Nephrology - [facility] 1 [place], [place] [address] Cherrie Fam MD 1 [facility], Level 2 [place] [phone] 03/28/2025 13:00 EDT Office Visit [facility] Ophthalmology [facility] 58 [place], [place] [address] Consuelo Nicole MD [address] [place] [phone] documented as of this encounter Visit Diagnoses Not on filedocumented in this encounter Care Teams Chemical Equipment Repairer Relationship Specialty Start Date End Date Sharon Vargas MD 4 [facility] [place] [address] PCP - General 09/09/15 documented as of this encounter
--- OUTSIDE RECORDS SUMMARY | 2024-11-10 15:30 | XMS_ITS | Encounter Summary ---
Author Organization [facility] Address [address] [place] [address] Care Team Providers Care Single Pass Soil Stabilizer Operator Name Role Phone Sharon Vargas MD Primary Care Provider [phone] Reason for Visit * Reason Onset Date Comments Appointment Related 11/09/2023 Encounter Details Date Type Department Care Team (Late st Contact Info) Description 11/09/[address] [address] Consuelo Nicole MD [address] [place] [phone] Appointment Related Social History Tobacco Use Types [...] - 11/09/2023 1035 EST Unable to leave [facility] no mail box set up. Contacted primary to let them know and to have [facility] with Dr. Nicole in 6 weeks for NPV dm exam per Dr. Nicole documented in this encounter Plan of Treatment Upcoming Encounters Date Type Department Care Team (Late st Contact Info) Description 12/22/2024 14:45 EST Office Visit [facility] Ophthalmology - [facility] [address] [place], [place] [address] Hung Harp MD 111 [facility], [facility], Level 5 [place] [phone] 01/01/2025 8:00 EDT Office Visit [facility] Nephrology - [facility] 1 [place], [place] [address] Cherrie Fam MD 1 [facility], Level 2 [place] [phone] 03/28/2025 13:00 EDT Office Visit [facility] Ophthalmology [facility] 58 [place], [place] [address] Consuelo Nicole MD [address] [place] [phone] documented as of this encounter Visit Diagnoses Not on filedocumented in this encounter Care Teams Single Pass Soil Stabilizer Operator Relationship Specialty Start Date End Date Sharon Vargas MD [address] [place] [phone] PCP - General 09/09/15 documented as of this encounter
--- OUTSIDE RECORDS SUMMARY | 2024-11-10 15:30 | XMS_ITS | Encounter Summary ---
Author Organization [facility] Address [address] [place] [address] Care Team Providers Care Aerobics Instructor Name Role Phone Sharon Vargas MD Primary Care Provider [phone] Encounter Details Date Type Department Care Team (Late st Contact Info) Description 03/27/2016 Historical Results Only [facility] Radiology Results [address] [place] [address] Roberth Osborne MD Social History Tobacco Use [...] Description 12/22/2024 14:45 EST Office Visit [facility] Ophthalmology - [address] [address] Hung Harp MD 111 [facility], Level 5 [place] [phone] 01/01/2025 8:00 EDT Office Visit [facility] Nephrology - [address] [address] Cherrie Fam MD [address] [place] [address], Level 2 [place] [phone] 03/28/2025 13:00 EDT [facility] 58 [place] [address] Consuelo Nicole MD [address] [place] [phone] documented as of this encounter Procedures Procedure [...] CC: ? Transcribed Date/Time: 03/27/2016 (2008) ? Auto Tire Recapper: ? Printed Date/Time: 03/31/2019 (31) ? PAGE [...] Gan MD CC: Transcribed Date/Time: 03/27/2016 (2008) Auto Tire Recapper: Printed Date/Time: 03/31/2019 (31) PAGE 1 Signed Report us Roberth Osborne MD IMG DIAGNOSTIC IMAGING ORDERABL ES Final Result documented in this encounter Visit Diagnoses Not on filedocumented in this encounter Care Teams Aerobics Instructor Relationship Specialty Start Date End Date Sharon Vargas MD 4 [facility] [place] [place] [address] PCP - General 09/09/15 documented as of this encounter
--- OUTSIDE RECORDS SUMMARY | 2024-11-10 15:30 | XMS_ITS | Encounter Summary ---
Author Organization [facility] Address [address] [place] [address] Care Team Providers Care Percher Name Role Phone Unavailable Primary Care Provider Unavailabl e Encounter Details Date Type Department Care Team (Late st Contact Info) Description 07/03/1999 11:27 EDT Hospital Encounter [facility] - Other [address] [place] [address] Sarah Martinez [place] [id number] [facility] [address] Unknown, Provider, Social History Tobacco Use Types [...] Info) Description 12/22/2024 14:45 EST Office Visit [facility] Ophthalmology - [facility] [address] [place], [place] [address] Hung Harp MD 111 [facility], [facility] 5 [place] [phone] 01/01/2025 8:00 EDT Office Visit [facility] Nephrology - [address] [address] Cherrie Fam MD [address] [place] [address] Rehab, Level 2 [place] [phone] 03/28/2025 13:00 EDT Office Visit [facility] Ophthalmology [facility] 58 [place] [address] Consuelo Nicole MD [address] [place] [phone] documented as of this encounter Visit Diagnoses Not on filedocumented in this encounter
--- OUTSIDE RECORDS SUMMARY | 2024-11-10 15:30 | XMS_ITS | Encounter Summary ---
Author Organization [facility] Address [address] [place] [address] Care Team Providers Care Branch Sales Manager Name Role Phone Sharon Vargas MD Primary Care Provider [phone] Encounter Details Date Type Department Care Team (Late st Contact Info) Description 01/02/[address] [facility] Pathology & Laboratory Medicine - [address] [address] Outr Resulting Lab, Provider Social History Tobacco [...] Description 12/22/2024 14:[address] [facility] Ophthalmology - [address] 470211 Hung Harp MD 111 [facility], Level 5 [place] [phone] 01/01/2025 8:[address] [facility] Nephrology - [address] 456701 Cherrie Fam MD 1 [facility], Level 2 [place] [phone] 03/28/2025 13:[address] [facility] Ophthalmology [facility] 58 [place] [address] Consuelo Nicole MD 58 [place] [phone] documented as of this encounter Procedures Procedure Name Priority Date/Time Associated Diagnosis Comments HCV RNA DETECT QUANT Today 01/01/2023 11:40 EDT HEPATITIS C AB W REFLEX TO HCV RNA BY PCR Routine 01/01/2023 11:40 EDT documented in this encounter Results * (ABNORMAL) HCV RNA DETECT QUANT (01/01/2023 11:40 EDT) [facility] HCV RNA Qualitative Detected( A) Undetected 01/04/2023 12:46 EDT [facility] HCV RNA Quantitative 3,370,000 (H) Undetected IU/mL 01/04/2023 12:46 EDT [facility] Blood VENOUS BLOOD / Unknown 01/01/2023 11:40 EDT 2023 15:59 EDT Narrative [facility] - 01/04/2023 12:46 EDT The quantification range of this assay is 15 IU/mL to 100,000,000 IU/mL. Testing was performed using the Jaron HCV test ([employer] with the jaron 6800 System. us Provider Outr Resulting Lab CHEMISTRY & BLOOD GA S ORDERABLES Final Result [facility] [address] [place] [address] * (ABNORMAL) HEPATITIS C AB W REFLEX TO HCV RNA BY PCR (01/01/2023 11:40 EDT) [facility] Hep C Antibody Reactive(A ) Negative 01/04/2023 10:01 EDT [facility] Comment: Supplemental testing for HCV RNA is ordered to rule out active HCV infection. Blood VENOUS BLOOD / Unknown 01/01/2023 11:40 EDT 2023 15:59 EDT us Provider Outr Resulting Lab CHEMISTRY & BLOOD GA S ORDERABLES Final Result [facility] [address] [place] [address] documented in this encounter Visit Diagnoses Not on filedocumented in this encounter Care Teams Branch Sales Manager Relationship Specialty Start Date End Date Sharon Vargas MD [address] [place] [phone] PCP - General 09/09/15 documented as of this encounter
--- OUTSIDE RECORDS SUMMARY | 2024-11-10 15:30 | XMS_ITS | Encounter Summary ---
Author Organization [facility] Address [address] [place] [address] Care Team Providers Care Engine Head Repairer Name Role Phone Sharon Vargas MD Primary Care Provider [phone] Encounter Details Date Type Department Care Team (Late st Contact Info) Description 08/23/2023 Documentation Visit [facility] Endoscopy [address] [place], [place] [address] Kain Cantu MD [facility] [address] [place] [address] Social History Tobacco Use Types Packs/Day Years Used Date Smoking Tobacco: Never Assessed Comments Unknown Sex and Gender Information Value Date Recorded Sex Assigned at Not on file Legal Sex Female 18:01 EST Gender Identity Female 01/04/2024 11:39 EDT Sexual Orientation Not on file documented as of this encounter Progress Notes * Kain Cantu MD - 08/23/2023 1651 EST No show for clinic documented in this encounter Plan of Treatment Upcoming Encounters Date Type Department Care Team (Late st Contact Info) Description 12/22/2024 14:45 EST Office Visit [facility] Ophthalmology - [address] [phone] Hung Harp MD 111 [facility], [facility], Level 5 [place] [address] 01/01/2025 8:00 EDT Office Visit [facility] Nephrology - [facility] 1 [place], [place] [phone] Cherrie Fam MD 1 [facility] Rehab, Level 2 [place] [phone] 03/28/2025 13:00 EDT Office Visit [facility] Ophthalmology [facility] 58 [place], [place] [address] Consuelo Nicole MD [address] [place] [phone] documented as of this encounter Visit Diagnoses Not on filedocumented in this encounter Care Teams Engine Head Repairer Relationship Specialty Start Date End Date Sharon Vargas MD [address] [place] [phone] PCP - General 09/09/15 documented as of this encounter
--- OUTSIDE RECORDS SUMMARY | 2024-11-10 15:30 | XMS_ITS | Encounter Summary ---
Author Organization [facility] Address [address] [place] [address] Care Team Providers Care Ultimate Hoops Referee Name Role Phone Sharon Vargas MD Primary Care Provider [phone] Encounter Details Date Type Department Care Team (Late st Contact Info) Description 12/03/[address] [facility] Nephrology [address] [address] Junaid Olivarez MD [address] [place] [address], [facility] 2 [place] [phone] Social History Tobacco Use Types Packs/Day Years [...] EST Office Visit [facility] Ophthalmology [facility] [address] [place], [place] [address] Hung Harp MD [address] [phone] 01/01/2025 8:[address] [facility] Nephrology [address] 848461 Cherrie Fam MD [address] [place] [address], [facility] 2 [place] [address] 03/28/2025 13:00 EDT Office Visit [facility] 58 [place] [address] Consuelo Nicole MD 58 [place] [phone] documented as of this encounter Procedures Procedure Name Priority Date/Time Associated Diagnosis Comments GLUCOSE, SERUM Routine 10/29/2015 URINE [id number] RATIO (ACR) Routine 10/16/2015 COMPREHENSIVE METABOLIC PANEL (CMP) Routine 02/18/2015 COMPLETE BLOOD COUNT Routine 05/28/2014 HEMOGLOBIN A1C Routine 05/28/2014 COMPREHENSIVE METABOLIC PANEL (CMP) Routine 05/28/2014 documented in this encounter Results * GLUCOSE, SERUM (10/29/2015) Glucose, Serum, External 113 [facility] Blood specimen (specimen) 10/29/2015 Sharon Vargas MD CHEMISTRY & BLOOD GAS ORDERABL ES Final Result [facility] * ALBUMIN, URINE (10/16/2015) Microalb ug/mg Crea, External 312.7 [facility] Microalb mg/dl, External 84.7 [facility] Creatinine, Random U (UCRR), External 27.09 [facility] Urine specimen (specimen) 10/16/2015 Sharon Vargas MD CHEMISTRY & BLOOD GAS ORDERABL ES Edited Result - Final Performing Organization Address [facility] Co de Phone Number [facility] * COMPREHENSIVE METABOLIC PANEL (CMP) [...] ORDERABL ES Final Result Performing Organization Address [facility] Co de Phone Number EXTERNAL LAB * HEMOGLOBIN A1C (05/28/2014) Hemoglobin A1C, External 8.7 [facility] Est Avg Glucose, External [facility] Blood specimen (specimen) 05/28/2014 Sharon Vargas MD CHEMISTRY & BLOOD GAS ORDERABL ES Final Result Performing Organization Address [facility] Co de Phone Number [facility] * COMPREHENSIVE METABOLIC PANEL (CMP) (05/28/2014) GFR, Calculated, External >60 [facility] Glucose, Serum, External 151 [facility] Albumin, External 2.9 [facility] Total Alkaline Phosphatase, External 137 [facility] ALT, External 86 [facility] AST, External 81 [facility] BUN, External 9 [facility] Calculated Calcium, External [facility] Calcium, External 8.0 [facility] Chloride, External 104 [facility] CO2, External 28.8 [facility] Creatinine, External 0.5 [facility] Fasting?, External [facility] Potassium, External 4.2 [facility] Sodium, External 140 [facility] Total Protein, External 6.4 [facility] Bilirubin, Total, External 0.2 [facility] Blood specimen (specimen) 05/28/2014 Sharon Vargas MD CHEMISTRY & BLOOD GAS ORDERABL ES Final Result Performing Organization Address [facility] Co de Phone Number [facility] * HEMAGRAM (05/28/2014) HCT, External 35.7 [facility] MCH, External [facility] MCV, External [facility] MCHC, External [facility] Hemoglobin, External 11.4 [facility] WBC, External 7.76 [facility] RBC, External 3.83 [facility] PLT, External 461 [facility] RDW-CV, External [facility] Blood specimen (specimen) 05/28/2014 Sharon Vargas MD HEMATOLOGY & PF4 ORDERABLES Fi nal Result Performing Organization Address [facility]/ZIP Co de Phone Number [facility] documented in this encounter Visit [...] 4 added in this encounter Care Teams Ultimate Hoops Referee Relationship Specialty Start Date End Date Sharon Vargas MD [address] [place] [phone] PCP - General 09/09/15 documented as of this encounter
--- OUTSIDE RECORDS SUMMARY | 2024-11-10 15:30 | XMS_ITS | Encounter Summary ---
Author Organization [facility] Address [address] [place] [address] Care Team Providers Care Mill Controller Name Role Phone Sharon Vargas MD Primary Care Provider [phone] Reason for Visit * Reason Onset Date Comments Follow-up 12/29/2023 Encounter Details Date Type Department Care Team (Late st Contact Info) Description 12/29/[address] [address] Verna Cerna COA Follow-up Social [...] Info) Description 12/22/2024 14:45 EST Office Visit [facility] Ophthalmology - [facility] [address] [place] [address] Hung Harp MD 111 [facility], Level 5 [place] [address] 01/01/2025 8:00 EDT Office Visit [facility] Nephrology - [address] [place] [address] [place], [place] [address] Cherrie Fam MD 1 [facility], Level 2 [place] [phone] 03/28/2025 13:00 EDT Office Visit [facility] Ophthalmology [facility] 58 [place], [place] [address] Consuelo Nicole MD 58 [place] [phone] documented as of this encounter Visit Diagnoses Not on filedocumented in this encounter Care Teams Mill Controller Relationship Specialty Start Date End Date Sharon Vargas MD 4 [place] [address] PCP - General 09/09/15 documented as of this encounter
--- OUTSIDE RECORDS SUMMARY | 2024-11-10 15:30 | XMS_ITS | Encounter Summary ---
Author Organization [facility] Address [address] [place] [address] Care Team Providers Care Leader Tier Name Role Phone Unavailable Primary Care Provider Unavailabl e Encounter Details Date Type Department Care Team (Latest Contact Info) Description 04/03/2003 19:00 EDT Hospital Encounter [facility] Emergency Department - [address] [phone] Emergency, MD Nickie Discharge Disposition: Home or [...] 14:45 EST Office Visit [facility] Ophthalmology - [address] [phone] Hung Harp MD 111 [facility], Level 5 [place] [phone] 01/01/2025 8:00 EDT Office Visit [facility] Nephrology - [facility] 1 [place], [place] [address] Cherrie Fam MD 1 [facility], Level 2 [place] [phone] 03/28/2025 13:00 EDT Office Visit [facility] [address] [place] [address] Consuelo Nicole MD 58 [place] [address] documented as of this encounter Procedures Procedure [...] ? LEA MCGOWAN ? Accession #: ? [id number] ? : ? 1975 (Age: 34) ??F [...] reviewed and electronically signed by: ? Marie Elijah, CT(ASCP) ? Report Date: ??07/03/2009 14:12 ? End of Report ? [facility] 06/26/2009 06/28/2009 us Sharon Vargas MD PATHOLOGY ORDERABLES Final Res ult [facility] [address] [place] [address] documented in this encounter Visit Diagnoses Not on filedocumented in this encounter
--- OUTSIDE RECORDS SUMMARY | 2024-11-10 15:30 | XMS_ITS | Encounter Summary ---
Author Organization [facility] Address [address] [place] [address] Care Team Providers Care Car Jockey Name Role Phone Unavailable Primary Care Provider Unavailabl e Encounter Details Date Type Department Care Team (Late st Contact Info) Description 04/29/2001 Results Only [facility] conversion [address] [place] [address] [place] [address] Social History Tobacco Use Types Packs/Day Years [...] Info) Description 12/22/2024 14:45 EST Office Visit [facility] Ophthalmology - [address] 314[address] Hung Harp MD 111 [facility], Level 5 [place] [phone] 01/01/2025 8:00 EDT Office Visit [facility] Nephrology - [address] 7305[address] Cher[facility] F[facility] MD [facility], Level 2 [place] [phone] 03/28/2025 13:00 EDT Office [facility] 58 [place] [address] Consuelo Nicole MD 58 [place] [phone] documented as of this encounter Procedures Procedure [...] ? LEA MCGOWAN ? Accession #: ? [id number] : ? 1975 (Age: 26) ??F ?Collect Date: ? 04/29/2001 Location: ? [facility] ? Receive Date: ? 05/04/2001 Provider: ?LIZBETH WILD [facility] Copy to: ? Specimen/Source: ?Conventional Pap [...] electronically signed by: ? QUINCY GUALLPA MD [facility] ? Report Date: ??05/06/2001 17:41 End of Report [facility] 04/29/2001 05/04/2001 us Lizbeth Wild CNM PATHOLOGY ORDERABLES Final Res ult [facility] [address] [place] [address] documented in this encounter Visit Diagnoses Not on filedocumented in this encounter
--- OUTSIDE RECORDS SUMMARY | 2024-11-10 15:30 | XMS_ITS | Encounter Summary ---
Author Organization [facility] Address [address] [place] [address] Care Team Providers Care Hair Cutter Name Role Phone Sharon Henderson MD Primary Care Provider [phone] Encounter Details Date Type Department Care Team (Late st Contact Info) Description 12/09/2016 Results Only [facility] [phone] Sharon Henderson MD 4 [place] [address] [...] 12/22/2024 14:45 EST Office Visit [facility] Ophthalmology - [facility] [address] [place], [place] [phone] Hung Harp MD 111 [facility], Level 5 [place] [phone] 01/01/2025 8:00 EDT Office Visit [facility] Nephrology - [address] [phone] Cherrie Fam MD 1 [facility] Rehab, Level 2 [place] [address] 03/28/2025 13:00 EDT Office Visit [facility] 58 [place] [address] Consuelo Nicole MD 58 [place] [address] documented as of this encounter Procedures Procedure [...] ? LEA MIRAMONTES ? Accession #: ? [id number] ? : ? 1975 (Age: 41) ??F [...] 33,35,39,45,51,52, 56,58,59,66, and 68 is detected by global logistics analyst mediated amplification. High and intermediate risk HPV [...] confirmed the above diagnosis. End of Report [facility] 12/09/2016 12/14/2016 us Sharon Henderson MD PATHOLOGY ORDERABLES Final Res ult Performing Organization Address City/State/[facility] Co de Phone Number [facility] [address] [place] [address] documented in this encounter Visit Diagnoses Not on filedocumented in this encounter Care Teams Hair Cutter Relationship Specialty Start Date End Date Sharon Henderson MD [address] [place] [address] PCP - General 09/09/15 documented as of this encounter
--- OUTSIDE RECORDS SUMMARY | 2024-11-10 15:30 | XMS_ITS | Encounter Summary ---
Author Organization [facility] Address [address] [place] [address] Care Team Providers Care Electroneurodiagnostic Technologist Name Role Phone Sharon Vargas MD Primary Care Provider Encounter Details Date Type Department Care Team (Latest Contact Info) Description 03/27/2016 8:14 EDT - 03/27/2016 23:59 EDT Hospital Encounter [facility] [address] [place] [address] Unknown, Provider, MD Discharge Disposition: Home or [...] Code Departure Means Destination Home or Self Long Term documented in this encounter Plan of Treatment Upcoming Encounters Date Type Department Care Team (Late st Contact Info) Description 12/22/2024 14:45 EST Office Visit [facility] Ophthalmology [facility] [address] [place], [place] [address] Hung Harp MD 111 [facility], Level 5 [place] [phone] 01/01/2025 8:00 EDT Office Visit [facility] Nephrology - [address] [address] Cherrie Fam MD 1 [facility] Rehab, Level 2 [place] [phone] 03/28/2025 13:00 EDT Office Visit [facility] Ophthalmology [address] [address] Consuelo Nicole MD 58 [place] [address] documented as of this encounter Visit Diagnoses Not on filedocumented in this encounter Care Teams Electroneurodiagnostic Technologist Relationship Specialty Start Date End Date Sharon Vargas MD 4 [place] [phone] PCP - General 09/09/15 documented as of this encounter
[2024-11-10 16:32] LABS: Anion Gap 17.1 mmol/L (3-11); CO2 16.9 mmol/L (21.0-32.0); Calcium 7.6 mg/dL (8.5-10.1); Chloride 103 mmol/L (98-107); Estimated GFR 5.15 (mL/min/1.73m2); Glucose 68 mg/dL (74-106); Potassium 4.6 mmol/L (3.5-5.1); Sodium 137 mmol/L (136-145)
[2024-11-10 16:58] LABS: BUN 131 mg/dL (7-18); CREATININE 8.7 mg/dL (0.55-1.02)
== END 2024-11-10 15:24 | disposition home or self-care (01) ==
LOC: NCHCN 15:23
PROVIDERS: PCP Family Medicine; Visit Provider Family Medicine
DX: J96.01 Acute respiratory failure with hypoxia; I12.0 Hypertensive chronic kidney disease with stage 5 chronic kidney disease or end stage renal disease; J18.9 Pneumonia, unspecified organism
CPT/HCPCS: 80048